=== PATIENT | female | born 1955 | race Caucasian/White ===

== ENCOUNTER 2017-12-03 13:27 | Observation (INO) | payer BC, SELFPAY ==
[2017-12-03] VITALS (11 sets, daily range): BP systolic 96–130; BP diastolic 54–81; PULSE 84–110; RESP 18–20; TEMP 36.4–36.7; O2SAT 95–100; BMI 33.6; BMI 34.4
--- NOTE | 2017-12-03 13:36 | XR_ITS ---
XR chest CHP 2V HISTORY: ITS.REASON: CHEST PAIN ORDERING PHYSICIAN: PATIENT AGE: 62 years COMPARISON: 07/23/2017 FINDINGS: There is mild cardiomegaly without failure.. The lungs are clear without infiltrates, suspicious nodules, or pleural effusions. Previously noted right basilar infiltrate has improved. Bilateral effusions have resolved. No acute bony abnormalities. IMPRESSION: Mild cardiomegaly otherwise negative.
[2017-12-03 13:46] LABS: Basophils % 0.2 % (0.1-2.0); Eosinophils # 0.1 K/mm3 (0.0-0.4); Eosinophils % 1.4 % (0.1-12.0); Hematocrit 35.9 % (37.0-47.0); Hemoglobin 12.2 g/dL (12.2-16.2); Lymphocytes # 1.5 K/mm3 (0.7-4.5); Lymphocytes % 20.9 K/mm3 (10-50); Mean Corpuscular Hemoglobin 31.5 pg (27.0-31.2); Mean Corpuscular Volume 92.7 fl (81-99); Mean Platelet Volume 6.9 fl (7.4-10.4); Monocytes # 0.6 K/mm3 (0.1-1.0); Monocytes % 8.3 % (1.7-9.3); Neutrophils # 4.8 K/mm3 (1.8-7.8); Neutrophils % 69.1 % (37.0-80.0); Platelet Count 292 K/mm3 (142-424); Red Blood Count 3.87 M/mm3 (4.20-5.40); Red Cell Distribution Width 16.2 % (11.5-17.5)
[2017-12-03 14:16] LABS: Alanine Aminotransferase 24 U/L (12-78); Albumin/Globulin Ratio 0.9 (1.1-1.8); Alkaline Phosphatase 168 U/L (46-116); Anion Gap 15.1 mEq/L (5-15); Aspartate Amino Transferase 17 U/L (15-37); Bilirubin,Total 0.6 mg/dL (0.2-1.0); Blood Urea Nitrogen 24 mg/dL (7-18); Calcium 10.2 mg/dL (8.5-10.1); Carbon Dioxide 27 mmol/L (21.0-32.0); Chloride 91 mmol/L (98-107); Creatine Kinase 22 U/L (26-192); Creatinine Clearance Estimated 61 mL/min (0-300); Creatinine,Serum 1.24 mg/dL (0.55-1.02); Estimated Glomerular Filt Rate 44 ml/min (>60); GFR (African American) 53 ML/MIN (>60); Globulin 4.3 gm/dl (1.3-3.2); Glucose 97 mg/dL (74-106); Potassium 4.1 mmoL/L (3.5-5.1); Sodium 129 mmol/L (136-145); Total Protein,Serum 8.3 gm/dL (6.4-8.2); Troponin I < 0.02 ng/ml (0.00-0.06)
[2017-12-03 14:22] LABS: CKMB Relative Index 2.3 U/L (0-4.0); Creatine Kinase MB < 0.5 mg/ml (0.0-3.6)
--- NOTE | 2017-12-03 15:27 | HMH.EDCP ---
ED Disposition Clinical Impression: Atypical chest pain Disposition: Admitted as Observation Condition on Discharge: Good Referrals: Rad Galvan MD [Primary Care Provider] - Time of Disposition: 17:01 - Critical Care Critical Care Time: No Attestation: On 12/03/17, the high probability of a clinically significant, sudden or life threatening deterioration of the following system(s) required my full and direct attention, intervention and personal management. The time I documented below is in addition to time spent performing reported procedures but includes the following listed in this critical care notation. Medical Decision Making Vital Signs: 12/03/17 13:27 12/03/17 14:38 12/03/17 14:47 Temperature 98.1 F Temperature Source Oral Pulse Rate [Right Brachial] 93 H 87 110 H Respiratory Rate 18 18 18 Blood Pressure [Right Arm] 100/57 118/75 118/75 Blood Pressure Mean [Right Arm] 71 89 89 Blood Pressure Source [Right Arm] Automatic Cuff Automatic Cuff Automatic Cuff Blood Pressure Position [Right Arm] Sitting Sitting Sitting 02 Sat by Pulse Oximetry 98 97 Oxygen Delivery Method Room Air Room Air 12/03/17 15:52 12/03/17 16:10 Temperature Temperature Source Pulse Rate [Right Brachial] 84 95 H Respiratory Rate 18 18 Blood Pressure [Right Arm] 114/58 96/54 Blood Pressure Mean [Right Arm] 76 68 Blood Pressure Source [Right Arm] Automatic Cuff Automatic Cuff Blood Pressure Position [Right Arm] Sitting Sitting 02 Sat by Pulse Oximetry 95 95 Oxygen Delivery Method Room Air Room Air - Lab Data Lab results reviewed: Yes: I reviewed the patient's lab results. Lab Results 12/03/17 13:40: WBC 7.0, RBC 3.87 L, Hgb 12.2, Hct 35.9 L, MCV 92.7, MCH 31.5 H, MCHC 34.0, RDW 16.2, Plt Count 292, MPV 6.9 L, Neut % (Auto) 69.1, Lymph % (Auto) 20.9, [place] % (Auto) 8.3, Eos % (Auto) 1.4, Baso % (Auto) 0.2, Neut # (Auto) 4.8, Lymph # (Auto) 1.5, [place] # (Auto) 0.6, Eos # (Auto) 0.1, Baso # (Auto) 0.0 12/03/17 13:40: Sodium 129 L, Potassium 4.1, Chloride 91 L, Carbon Dioxide 27, Anion Gap 15.1 H, BUN 24 H, Creatinine 1.24 H, Estimated Creat Clear 61, Estimated GFR 44 L, Est GFR ( Amer) 53 L, Glucose 97, Calcium 10.2 H, Total Bilirubin 0.6, AST 17, ALT 24, Alkaline Phosphatase 168 H, Total Creatine Kinase 22 L, CK-MB (CK-2) < 0.5, CK-MB (CK-2) Rel Index 2.3, Troponin I < 0.02, Total Protein 8.3 H, Albumin 4.0, Globulin 4.3 H, Albumin/Globulin Ratio 0.9 L 12/03/17 14:00: Influenza Type A Ag Negative, Influenza Type B Ag Negative 12/03/17 15:26: Troponin I < 0.02, Phenobarbital 16.9 Result diagrams: 12/03/17 13:40 12/03/17 13:40 Orders (Tests/Meds): ED MEDICATIONS Generic Name Dose Route Start Last Admin Trade Name Freq PRN Reason Stop Dose Admin Sodium Chloride 1,000 mls @ 100 mls/hr 12/03/17 17:00 Sod Chloride 0.9% 1000ml Bag IV 01/02/18 16:59 .Q10H GAIL Discontinued Medications Generic Name Dose Route Start Last Admin Trade Name Freq PRN Reason Stop Dose Admin Sodium Chloride 500 mls @ 100 mls/hr 12/03/17 16:15 Sod Chloride 0.9% 500ml Bag IV 01/02/18 16:14 .Q5H GAIL Morphine Sulfate 2 mg 12/03/17 14:57 12/03/17 15:15 Morphine 2mg/Ml Syringe IV 12/03/17 14:58 2 mg ONCE ONE Administration Nitroglycerin 0.4 mg 12/03/17 14:44 12/03/17 14:45 Nitrostat 0.4mg Sl Tablet SL 12/03/17 14:45 0.4 mg ONCE ONE Administration - Radiology Data #1 Image(s): Chest Image Reviewed: Yes I reviewed the patient's radiology results, Yes I have reviewed radiologist's interpretation Preliminary Findings: Normal/NAD, No Infiltrates Seen - ECG Data Tracing #1 Atrial fibrillation noted rate in the 90s-120s. Small Q waves noted anteriorly. Sister with history of atrial fibrillation in the past. No acute ST changes noted. - Physician Consults Physician Consulted: Dr. Galvan (Dr. Branch neonatal intensive care nurse for him) Time: 16:39 Comment/Response: Okay to admit to
[2017-12-03 16:19] LABS: Troponin I < 0.02 ng/ml (0.00-0.06)
--- NOTE | 2017-12-03 16:38 | PC.NURSE ---
Contacted Dr. Branch's office who is socially responsible investment adviser for , waiting socially responsible investment adviser back.
--- NOTE | 2017-12-03 16:57 | PC.NURSE ---
YEMI MARTINEZ spoke with who is nitric acid concentrator operator for
--- NOTE | 2017-12-03 18:42 | PC.NURSE ---
report called to sue friedman rn
--- NOTE | 2017-12-03 19:15 | PC.NURSE ---
REPORT RECEIVED FROM KAREN.BIA, PT FULL CODE
[2017-12-03 19:51] LABS: Troponin I < 0.02 ng/ml (0.00-0.06)
[2017-12-04] VITALS (8 sets, daily range): BP systolic 90–130; BP diastolic 45–85; PULSE 50–74; RESP 18–20; TEMP 36.2–36.9; O2SAT 96–100
--- NOTE | 2017-12-04 05:36 | PC.NURSE ---
PT SLEPT MOST OF SHIFT. CONTINUES ON IV FLUIDS. BREATH SOUNDS CLEAR AND EQUAL. NO C/O CHEST PAIN OR ANY OTHER DISCOMFORT REPORTED. PT HAS ORDER FOR AM LABS. PT STABLE. WILL CONTINUE TO MONITOR. REPORT TO BE GIVEN TO ONCOMING NURSE.
[2017-12-04 07:17] LABS: Basophils % 0.3 % (0.1-2.0); Eosinophils # 0.1 K/mm3 (0.0-0.4); Eosinophils % 1.4 % (0.1-12.0); Hematocrit 35.2 % (37.0-47.0); Hemoglobin 11.8 g/dL (12.2-16.2); Lymphocytes # 1.1 K/mm3 (0.7-4.5); Lymphocytes % 18.2 K/mm3 (10-50); Mean Corpuscular HGB Conc 33.4 g/dL (31.8-35.4); Mean Corpuscular Hemoglobin 31.6 pg (27.0-31.2); Mean Corpuscular Volume 94.5 fl (81-99); Mean Platelet Volume 6.9 fl (7.4-10.4); Monocytes # 0.4 K/mm3 (0.1-1.0); Monocytes % 6.8 % (1.7-9.3); Neutrophils # 4.4 K/mm3 (1.8-7.8); Neutrophils % 73.2 % (37.0-80.0); Platelet Count 238 K/mm3 (142-424); Red Blood Count 3.73 M/mm3 (4.20-5.40); Red Cell Distribution Width 16.2 % (11.5-17.5)
--- NOTE | 2017-12-04 07:21 | HMH.DCSUM ---
General - General Admission date: 12/03/17 Discharge date: 12/06/17 HPI HPI: 62-year-old female with atrial fibrillation diabetes and nonischemic cardiomyopathy presented to the hospital after a presyncopal event that lasted around 45 minutes while she was shopping at [employer]. Patient was admitted for monitoring of arrhythmias. Patient was in atrial fibrillation on presentation to the ER but this was rate controlled. Objective Vital signs: Temp Pulse Resp BP Pulse Ox 97.7 F 74 18 114/75 97 12/04/17 04:05 12/04/17 04:05 12/04/17 04:05 12/04/17 04:05 12/04/17 04:05 Hospital Course Hospital Course: Patient was admitted and ruled out for CO with serial EKG and enzymes. Cardiology service was consulted. Echocardiogram showed a decrease in patient's ejection fraction from 40 down to 30% since her last echocardiogram. Decision was made to implant AICD due to patient's risk of sudden cardiac . Patient underwent AICD implantation on December 05. Postoperatively the patient had significant nausea which delayed her discharge. On the morning of the she was eating without nausea. Pain in the chest and back were significant from her procedure and she will be given hydrocodone at discharge for her pain. Patient was discharged on the . She will follow up with cardiology service in 1 week. Patient will follow up with me after follow-up with cardiology service Results Labs on day of discharge: Labs from last 24 hours 12/03/17 19:28 Troponin I < 0.02 - Imaging and Cardiology EKG Status: final report Chest x-ray Status: final report DS: Diagnosis - Discharge Diagnosis (1) Atrial fibrillation Status: Acute (2) Atypical chest pain Status: Acute (3) Diabetes mellitus type II, controlled Status: Acute (4) Nonischemic cardiomyopathy Status: Acute Meds Home Medications Medication Instructions Recorded Confirmed Type Atorvastatin Calcium [Atorvastatin 10 mg PO DAILY 12/03/17 12/04/17 History 10mg Tab] Bisoprolol Fumarate 10 mg PO BID 12/03/17 12/04/17 History Furosemide [Furosemide 40MG tAB] 40 mg PO BID 12/03/17 12/03/17 History Gabapentin [Gabapentin 100mg Cap] 100 mg PO TID 12/03/17 12/04/17 History Isosorbide Mononitrate [Imdur 30mg 30 mg PO DAILY 12/03/17 12/04/17 History ER tablet] Lisinopril [Lisinopril 10mg Tab] 10 mg PO DAILY 12/03/17 12/03/17 History PHENobarbital [PHENobarbital 32.4 mg PO TID 12/03/17 12/04/17 History 32.4mg Tablet] Pantoprazole Sodium [Protonix 40mg 40 mg PO DAILY 12/03/17 12/03/17 History tablet] Rivaroxaban [Xarelto] 20 mg PO DAILY 12/03/17 12/04/17 History Ropinirole HCl 2 mg PO DAILY 12/03/17 12/04/17 History Sitagliptin Phos/Metformin HCl 1 each PO BID 12/03/17 12/03/17 History [Janumet 50-1,000 mg Tablet] Spironolactone [Spironolactone 50 mg PO DAILY 12/03/17 12/03/17 History 50mg Tab] Tramadol HCl [Ultram 50mg 50 mg PO BID PRN 12/03/17 12/03/17 History tablet] dilTIAZem HCl [Diltiazem 120mg 120 mg PO DAILY 12/03/17 12/04/17 History 24Hr ER Cap] hydroCHLOROthiazide [HCTZ 25mg 25 mg PO DAILY 12/03/17 12/03/17 History tab] Allergies Allergy/AdvReac Type Severity Reaction Status Date / Time metoclopramide [From REGLAN] Allergy Mild SHAKES Verified 12/03/17 13:44 Discharge Plan - Patient Discharge Instructions Activity: Ambulate as Tolerated Diet: advance to your usual diet - Follow up Plan Disposition: Home, Self-Assisted Medications: Home Medications Medication Instructions Recorded Confirmed Type Atorvastatin Calcium [Atorvastatin 10 mg PO DAILY 12/03/17 12/04/17 History 10mg Tab] Bisoprolol Fumarate 10 mg PO BID 12/03/17 12/04/17 History Furosemide [Furosemide 40MG tAB] 40 mg PO BID 12/03/17 12/03/17 History Gabapentin [Gabapentin 100mg Cap] 100 mg PO TID 12/03/17 12/04/17 History Isosorbide Mononitrate [Imdur 30mg
--- NOTE | 2017-12-04 07:23 | HMH.HP ---
*Admission Date: 12/03/17 *Chief complaint: Pre-syncope *History of present illness: 62-year-old female with history of atrial fibrillation, cardiomyopathy presented to the emergency department after a presyncopal event at [facility]. Patient was standing when she states everything started to go black . She felt lightheaded. She had some mild chest heaviness but denies palpitations. She also felt mildly dyspneic. After symptoms did not resolve over 45 minutes she was instructed to go to the emergency department. In the emergency department workup was rather unrevealing. She was found to be in atrial fibrillation which is a known diagnosis she carries. Troponins were negative ?2. Decision was made to admit the patient for observation. This morning she states she feels well as long as I keep my eyes open . [facility] History Medical History: Reports:: Atrial Fibrillation, Diabetes Mellitus Type 2, Hyperlipidemia, Hypertension Comment: Cardiomyopathy Other Surgeries: Yes: Appendectomy Amputation: No - *Social History Educational Level: Completed High School Alcohol Intake: former Occupational Status: retired Housing: house - Psychiatric History Expresses thoughts of harming self/others: None Suicide Plan Description: No Plan *Family Hx:: Diabetes, Hyperlipidemia, Hypertension Review of Systems - Constitutional Denies chills, Denies fever(s) - Eyes Reports blurry vision - *Cardiovascular Reports chest pain, Reports chest pain at rest, Reports shortness of breath - *Respiratory Denies chest congestion, Denies cough - *Gastrointestinal Denies abdominal pain Meds Home Medications Medication Instructions Recorded Confirmed Type Atorvastatin Calcium [Atorvastatin 10 mg PO DAILY 12/03/17 12/03/17 History 10mg Tab] Bisoprolol Fumarate 10 mg PO BIDL 12/03/17 12/03/17 History Furosemide [Furosemide 40MG tAB] 40 mg PO BID 12/03/17 12/03/17 History Gabapentin [Gabapentin 100mg Cap] 100 mg PO TID 12/03/17 12/03/17 History Isosorbide Mononitrate [Imdur 30mg 30 mg PO DAILY 12/03/17 12/03/17 History ER tablet] Lisinopril [Lisinopril 10mg Tab] 10 mg PO DAILY 12/03/17 12/03/17 History PHENobarbital [PHENobarbital 32.4 mg PO TID 12/03/17 12/03/17 History 32.4mg Tablet] Pantoprazole Sodium [Protonix 40mg 40 mg PO DAILY 12/03/17 12/03/17 History tablet] Rivaroxaban [Xarelto] 20 mg PO DAILY 12/03/17 12/03/17 History Ropinirole HCl 2 mg PO DAILY 12/03/17 12/03/17 History Sitagliptin Phos/Metformin HCl 1 each PO BID 12/03/17 12/03/17 History [Janumet 50-1,000 mg Tablet] Spironolactone [Spironolactone 50 mg PO DAILY 12/03/17 12/03/17 History 50mg Tab] Tramadol HCl [Ultram 50mg 50 mg PO BID PRN 12/03/17 12/03/17 History tablet] dilTIAZem HCl [Diltiazem 120mg 120 mg PO DAILY 12/03/17 12/03/17 History 24Hr ER Cap] hydroCHLOROthiazide [HCTZ 25mg 25 mg PO DAILY 12/03/17 12/03/17 History tab] Allergies Allergy/AdvReac Type Severity Reaction Status Date / Time metoclopramide [From REGLAN] Allergy Mild SHAKES Verified 12/03/17 13:44 Exam Vital signs and Labs for Last 24 Hours: Temp Pulse Resp BP Pulse Ox 97.7 F 74 18 114/75 97 12/04/17 04:05 12/04/17 04:05 12/04/17 04:05 12/04/17 04:05 12/04/17 04:05 Laboratory Results - last 24 hr 12/03/17 19:28: Troponin I < 0.02 Laboratory Results - last 24 hr 12/03/17 13:40: WBC 7.0, RBC 3.87 L, Hgb 12.2, Hct 35.9 L, MCV 92.7, MCH 31.5 H, MCHC 34.0, RDW 16.2, Plt Count 292, MPV 6.9 L, Neut % (Auto) 69.1, Lymph % (Auto) 20.9, [place] % (Auto) 8.3, Eos % (Auto) 1.4, Baso % (Auto) 0.2, Neut # (Auto) 4.8, Lymph # (Auto) 1.5, [place] # (Auto) 0.6, Eos # (Auto) 0.1, Baso # (Auto) 0.0 12/03/17 13:40: Sodium 129 L, Potassium 4.1, Chloride 91 L, Carbon Dioxide 27, Anion Gap 15.1 H, BUN 24 H, Creatinine 1.24 H, Estimated Creat Clear 61, Estimated GFR 44 L, Est GFR ( Amer) 53 L, Glucose 97, Calcium 10.2 H, Total Bilirubin 0.6, AST
--- NOTE | 2017-12-04 07:27 | P.HP_ITS ---
*Admission Date: 12/03/17 *Chief complaint: Pre-syncope *History of present illness: 62-year-old female with history of atrial fibrillation, cardiomyopathy presented to the emergency department after a presyncopal event at [facility]. Patient was standing when she states everything started to go black . She felt lightheaded. She had some mild chest heaviness but denies palpitations. She also felt mildly dyspneic. After symptoms did not resolve over 45 minutes she was instructed to go to the emergency department. In the emergency department workup was rather unrevealing. She was found to be in atrial fibrillation which is a known diagnosis she carries. Troponins were negative ? 2. Decision was made to admit the patient for observation. This morning she states she feels well as long as I keep my eyes open . [facility] History Medical History: Reports:: Atrial Fibrillation, Diabetes Mellitus Type 2, Hyperlipidemia, Hypertension Comment: Cardiomyopathy Other Surgeries: Yes: Appendectomy Amputation: No - *Social History Educational Level: Completed High School Alcohol Intake: former Occupational Status: retired Housing: house - Psychiatric History Expresses thoughts of harming self/others: None Suicide Plan Description: No Plan *Family Hx:: Diabetes, Hyperlipidemia, Hypertension Review of Systems - Constitutional Denies chills, Denies fever(s) - Eyes Reports blurry vision - *Cardiovascular Reports chest pain, Reports chest pain at rest, Reports shortness of breath - *Respiratory Denies chest congestion, Denies cough - *Gastrointestinal Denies abdominal pain Meds Home Medications Medication Instructions Recorded Confirmed Type Atorvastatin Calcium [Atorvastatin 10 mg PO DAILY 12/03/17 12/03/17 History 10mg Tab] Bisoprolol Fumarate 10 mg PO BIDL 12/03/17 12/03/17 History Furosemide [Furosemide 40MG tAB] 40 mg PO BID 12/03/17 12/03/17 History Gabapentin [Gabapentin 100mg Cap] 100 mg PO TID 12/03/17 12/03/17 History Isosorbide Mononitrate [Imdur 30mg 30 mg PO DAILY 12/03/17 12/03/17 History ER tablet] Lisinopril [Lisinopril 10mg Tab] 10 mg PO DAILY 12/03/17 12/03/17 History PHENobarbital [PHENobarbital 32.4 mg PO TID 12/03/17 12/03/17 History 32.4mg Tablet] Pantoprazole Sodium [Protonix 40mg 40 mg PO DAILY 12/03/17 12/03/17 History tablet] Rivaroxaban [Xarelto] 20 mg PO DAILY 12/03/17 12/03/17 History Ropinirole HCl 2 mg PO DAILY 12/03/17 12/03/17 History Sitagliptin Phos/Metformin HCl 1 each PO BID 12/03/17 12/03/17 History [Janumet 50-1,000 mg Tablet] Spironolactone [Spironolactone 50 mg PO DAILY 12/03/17 12/03/17 History 50mg Tab] Tramadol HCl [Ultram 50mg 50 mg PO BID PRN 12/03/17 12/03/17 History tablet] dilTIAZem HCl [Diltiazem 120mg 120 mg PO DAILY 12/03/17 12/03/17 History 24Hr ER Cap] hydroCHLOROthiazide [HCTZ 25mg 25 mg PO DAILY 12/03/17 12/03/17 History tab] Allergies Allergy/AdvReac Type Severity Reaction Status Date / Time metoclopramide [From REGLAN] Allergy Mild SHAKES Verified 12/03/17 13:44 Exam Vital signs and Labs for Last 24 Hours: Temp Pulse Resp BP Pulse Ox 97.7 F 74 18 114/75 97 12/04/17 04:05 12/04/17 04:05 12/04/17 04:05 12/04/17 04:05 12/04/17 04:05 Laboratory Results - last 24 hr 12/03/17 19:28: Troponin I <
[2017-12-04 07:50] LABS: Anion Gap 9.8 mEq/L (5-15); Blood Urea Nitrogen 21 mg/dL (7-18); Carbon Dioxide 30 mmol/L (21.0-32.0); Chloride 96 mmol/L (98-107); Creatinine Clearance Estimated 80 mL/min (0-300); Creatinine,Serum 0.98 mg/dL (0.55-1.02); Estimated Glomerular Filt Rate 58 ml/min (>60); GFR (African American) 70 ML/MIN (>60); Glucose 94 mg/dL (74-106); Magnesium 1.5 mg/dL (1.4-2.2); Potassium 3.8 mmoL/L (3.5-5.1); Sodium 132 mmol/L (136-145); Thyroid Stimulating Hormone 1.26 uIU/ml (0.358-3.740)
--- NOTE | 2017-12-04 08:00 | P.CONPHA_ITS ---
[facility] VTE Monitoring - Patient Demographics Admission date: 12/03/17 Report Date: 12/04/17 Time: 07:58 Allergies/Adverse Reactions: metoclopramide [From REGLAN] Allergy (Mild, Verified 12/03/17 13:44) SHAKES Height: 1.55 m Weight: 82.554 kg Patient Problems: Current Active Problems Atypical chest pain (Acute) Atrial fibrillation (Acute) Diabetes mellitus type II, controlled (Acute) Nonischemic cardiomyopathy (Acute) - VTE Risk Labs: VTE Related Lab Results Hgb 11.8 g/dL (12.2-16.2) L 12/04/17 06:23 Hct 35.2 % (37.0-47.0) L 12/04/17 06:23 Plt Count 238 K/mm3 (142-424) 12/04/17 06:23 BUN 21 mg/dL (7-18) H 12/04/17 06:23 Creatinine 0.98 mg/dL (0.55-1.02) D 12/04/17 06:23 Estimated Creat Clear 80 mL/min (0-300) 12/04/17 06:23 Was VTE Risk Assessment Performed: Yes VTE Score: 1 VTE Risk Level: Very Low Risk - Prophylaxis VTE Prophylaxis Ordered?: Yes Types of VTE Prophylaxis: TEDS Knee High Location of Applied Device: Bilateral Lower Extremeties - VTE Diagnosis Confirmed Treatment or plan recommended: Continue Current Treatment Comment: XARELTO ALSO ORDERED
--- NOTE | 2017-12-04 08:19 | HMH.CARDPN2 ---
Subjective PN (PG) Date: 12/04/17 Time: 08:19 Principal diagnosis: Chest pain, SOA, Cardiomyopathy Interval history: 62-year-old white female with known mild coronary artery disease by cardiac catheterization November 2016, chronic atrial fibrillation for which she takes Xarelto therapy and nonischemic cardiomyopathy (ejection fraction improved from 20% to 40% on medical therapy) was admitted for observation. Patient was at [facility] yesterday when she developed sudden loss of vision without TIA or CVA symptoms otherwise. She noted the symptoms lasted only a few seconds and then more followed by substernal chest pain pressure and shortness of breath that slowly resolved over the next couple of hours. Patient set at [facility] for about 30 minutes and when symptoms did not improve was transported to the emergency department for evaluation. She was given a sublingual nitroglycerin in the ER with some improvement in the chest discomfort gradually over the next hour, she also received morphine which improved the shortness of breath rapidly. Patient has had no further symptoms of loss of vision, chest pain or shortness of breath overnight. 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 Patient states the symptoms from her lichen planus resolved thereafter. She has lost 3 close family members in the last couple of months. She is still emotionally upset about this. Troponins have returned to normal overnight. EKG showed atrial fibrillation without acute change. Cardiology consulted for evaluation and recommendations. PN Exam ([facility]) Vital signs: Temp Pulse Resp BP Pulse Ox 97.7 F 74 18 114/75 97 12/04/17 04:05 12/04/17 04:05 12/04/17 04:05 12/04/17 04:05 12/04/17 04:05
--- NOTE | 2017-12-04 08:20 | CA_ITS ---
PROCEDURE: 2-D M-mode and color Doppler study INDICATIONS FOR THE TEST: Chest pain X COPD Heart Murmur Tobacco Smoking Palpitations Fatigue SyncopeX Edema HypertensionXDiabetes MellitusX Rheumatic Fever SOBXDOE Obesity HyperlipidemiaX Family History HD Additional History AF,CM PATIENT INFORMATION HEIGHT: 63 WEIGHT:182 GENDER: Female B/P:102/67 2-D/M-MODE INTERPRETATION: 2-D MEASUREMENTS OBSERVED VALUES IN CMS Right Ventricular Dimension (RVDd) 3.6 Interventricular Septum (Thickness)(IVsd) .9 Left Ventricular Internal Dimensions(LVIDd) 4.9 Left Ventricular Posterior Wall (Thickness)(LVPWd) 1.1 Aortic Root 2.2 Aortic Cusp Separation Left Atrial Dimensions (LAD) 4.6 2D 1. Technically difficult study because of the patient's factor and poor acoustic windows. 2. Left atrium is moderately enlarged, left ventricle is normal size, there is reduced left ventricular systolic function, visually estimated ejection fraction 30%, left ventricle is globally hypokinetic. 3. The right atrium is mildly enlarged, right ventricle is moderately dilated with mildly reduced contractility. 4. The aortic valve is minimally thickened and fibrosed. 5. The mitral and tricuspid valve leaflets are minimally thickened. 6. No significant pericardial effusion noted. DOPPLER INTERROGATION: Doppler interrogation of the aortic, mitral and tricuspid valve reveals presence of mild mitral and tricuspid regurgitation, calculated right ventricular systolic pressure 42 mmHg consistent with moderate pulmonary hypertension. CONCLUSION: 1. Biatrial enlargement, normal left ventricular size, there is reduced left ventricular systolic function, visually estimated ejection fraction 30%, left ventricle is globally hypokinetic. 2. Moderately enlarged right ventricle is mildly reduced contractility. 3. Mild mitral and tricuspid regurgitation. Calculated right ventricular systolic pressure 42 mmHg consistent with moderate pulmonary hypertension. 4. No significant pericardial effusion noted.
--- NOTE | 2017-12-04 08:32 | HMH.CARDCON2 ---
History of Present Illness Consult date: 12/04/17 Requesting physician: Rad Galvan Consult reason: chest pain, atrial fibrillation, shortness of breath Chief complaint: Transient loss of vision, chest pain, SOA History of present illness: 62-year-old white female with known mild coronary artery disease by cardiac catheterization November 2016, chronic atrial fibrillation for which she takes Xarelto therapy and nonischemic cardiomyopathy (ejection fraction improved from 20% to 40% on medical therapy) was admitted for observation. Patient was at [facility] yesterday when she developed sudden loss of vision without TIA or CVA symptoms otherwise. She noted the symptoms lasted only a few seconds and then more followed by substernal chest pain pressure and shortness of breath that slowly resolved over the next couple of hours. Patient set at [facility] for about 30 minutes and when symptoms did not improve was transported to the emergency department for evaluation. She was given a sublingual nitroglycerin in the ER with some improvement in the chest discomfort gradually over the next hour, she also received morphine which improved the shortness of breath rapidly. Patient has had no further symptoms of loss of vision, chest pain or shortness of breath overnight. 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 Patient states the symptoms from her lichen planus resolved thereafter. She has lost 3 close family members in the last couple of months. She is still emotionally upset about this. Troponins have returned to normal overnight. EKG showed atrial fibrillation without acute change. Cardiology consulted for evaluation and recommendations. Review of Systems - Constitutional Denies body ache(s), Denies chills, Denies fever(s), Denies malaise - Eyes Reports loss of vision - *Cardiovascular Reports chest pain - *Respiratory Reports shortness of breath [facility] History Medical History: Reports:: Atrial Fibrillation, Diabetes Mellitus Type 2, Hyperlipidemia, Hypertension Other Surgeries: Yes: Appendectomy Amputation: No - *Social History Educational Level: Completed High School Alcohol Intake: former Occupational Status: retired Housing: house - Psychiatric History Expresses thoughts of harming self/others: None Suicide Plan Description: No Plan *Family Hx:: Diabetes, Hyperlipidemia, Hypertension Meds Home Medications Medication Instructions Recorded Confirmed Type Atorvastatin Calcium [Atorvastatin 10 mg PO DAILY 12/03/17 12/03/17 History 10mg Tab] Bisoprolol Fumarate 10 mg PO BID 12/03/17 12/04/17 History Furosemide [Furosemide 40MG tAB] 40 mg PO BID 12/03/17 12/03/17 History Gabapentin [Gabapentin 100mg Cap] 100 mg PO TID 12/03/17 12/03/17 History Isosorbide Mononitrate [Imdur 30mg 30 mg PO DAILY 12/03/17 12/03/17 History ER tablet] Lisinopril [Lisinopril 10mg Tab] 10 mg PO DAILY 12/03/17 12/03/17 History PHENobarbital [PHENobarbital 32.4 mg PO TID 12/03/17 12/03/17 History 32.4mg Tablet] Pantoprazole Sodium [Protonix 40mg 40 mg PO DAILY 12/03/17 12/03/17 History tablet] Rivaroxaban [Xarelto] 20 mg PO DAILY 12/03/17 12/03/17 History Ropinirole HCl 2 mg PO DAILY 12/03/17 12/03/17 History Sitagliptin Phos/Metformin HCl 1 each PO BID 12/03/17 12/03/17 History [Janumet 50-1,000 mg Tablet] Spironolactone [Spironolactone 50 mg PO DAILY 12/03/17 12/03/17 History 50mg Tab] Tramadol HCl [Ultram 50mg 50 mg PO BID PRN 12/03/17 12/03/17 History tablet] dilTIAZem HCl [Diltiazem 120mg 120 mg PO DAILY 12/03/17 12/03/17 History 24Hr ER Cap] hydroCHLOROthiazide [HCTZ 25mg 25 mg PO DAILY 12/03/17 12/03/17 History tab] Allergies Allergy/AdvReac Type Severity Reaction Status Date / Time [facility] Allergy Mild SHAKES Verified 12/03/17 13
--- NOTE | 2017-12-04 08:35 | P.CONS_ITS ---
History of Present Illness Consult date: 12/04/17 Requesting physician: Rad Galvan Consult reason: chest pain, atrial fibrillation, shortness of breath Chief complaint: Transient loss of vision, chest pain, SOA History of present illness: 62-year-old white female with known mild coronary artery disease by cardiac catheterization November 2016, chronic atrial fibrillation for which she takes Xarelto therapy and nonischemic cardiomyopathy (ejection fraction improved from 20% to 40% on medical therapy) was admitted for observation. Patient was at [facility] yesterday when she developed sudden loss of vision without TIA or CVA symptoms otherwise. She noted the symptoms lasted only a few seconds and then more followed by substernal chest pain pressure and shortness of breath that slowly resolved over the next couple of hours. Patient set at [facility] for about 30 minutes and when symptoms did not improve was transported to the emergency department for evaluation. She was given a sublingual nitroglycerin in the ER with some improvement in the chest discomfort gradually over the next hour, she also received morphine which improved the shortness of breath rapidly. Patient has had no further symptoms of loss of vision, chest pain or shortness of breath overnight. 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 Patient states the symptoms from her lichen planus resolved thereafter. She has lost 3 close family members in the last couple of months. She is still emotionally upset about this. Troponins have returned to normal overnight. EKG showed atrial fibrillation without acute change. Cardiology consulted for evaluation and recommendations. Review of Systems - Constitutional Denies body ache(s), Denies chills, Denies fever(s), Denies malaise - Eyes Reports loss of vision - *Cardiovascular Reports chest pain - *Respiratory Reports shortness of breath [facility] History Medical History: Reports:: Atrial Fibrillation, Diabetes Mellitus Type 2, Hyperlipidemia, Hypertension Other Surgeries: Yes: Appendectomy Amputation: No - *Social History Educational Level: Completed High School Alcohol Intake: former Occupational Status: retired Housing: house - Psychiatric History Expresses thoughts of harming self/others: None Suicide Plan Description: No Plan *Family Hx:: Diabetes, Hyperlipidemia, Hypertension Meds Home Medications Medication Instructions Recorded Confirmed Type Atorvastatin Calcium [Atorvastatin 10 mg PO DAILY 12/03/17 12/03/17 History 10mg Tab] Bisoprolol Fumarate 10 mg PO BID 12/03/17 12/04/17 History Furosemide [Furosemide 40MG tAB] 40 mg PO BID 12/03/17 12/03/17 History Gabapentin [Gabapentin 100mg Cap] 100 mg PO TID 12/03/17 12/03/17 History Isosorbide Mononitrate [Imdur 30mg 30 mg PO DAILY 12/03/17 12/03/17 History ER tablet] Lisinopril [Lisinopril 10mg Tab] 10 mg PO DAILY 12/03/17 12/03/17 History PHENobarbital [PHENobarbital 32.4 mg PO TID 12/03/17 12/03/17 History 32.4mg Tablet] Pantoprazole Sodium [Protonix 40mg 40 mg PO DAILY 12/03/17 12/03/17 History tablet] Rivaroxaban [Xarelto] 20 mg PO DAILY 12/03/17 12/03/17 History Ropinirole HCl 2 mg PO DAILY 12/03/17 12/03/17 History Sitagliptin Phos/Metformin HCl 1 each PO BID 12/03/17 12/03/17 History [Janumet 50-1,000 mg Tablet] Spironolactone [Spironolactone 50 mg PO DAILY 12/03/1712/03
--- NOTE | 2017-12-04 18:29 | PC.NURSE ---
PATIENT HAS BEEN SITTING IN THE CHAIR MOST OF THE SHIFT. SHE DENIES ANY PAIN T/O SHIFT. LUNGS ARE CTA. ANXIOUS FOR DEFIB PLACEMENT IN THE AM. CONSENT IS SIGNED ON THE CHART. CALL LIGHT WITHIN REACH WILL CONTINUE TO MONITOR.
--- NOTE | 2017-12-04 19:21 | PC.NURSE ---
REPORT RECEIVED FROM JOSE; PT FULL CODE
[2017-12-05] VITALS (21 sets, daily range): BP systolic 84–119; BP diastolic 35–77; PULSE 56–83; RESP 12–20; TEMP 36.1–36.9; O2SAT 95–100
--- NOTE | 2017-12-05 00:31 | PC.NURSE ---
Addendum entered by Mavis Bermudez RN 12/05/17 22:00: Original Note: PT ON TELEMETRY, CURRENTLY A-FIB; PT SCHEDULED FOR DEFIBULATOR BE PLACED TOMORROW
--- NOTE | 2017-12-05 00:33 | PC.NURSE ---
PT REFUSED LASIX STATED SHE DOESN'T WANT TO BE UP TO BATHROOM ALL NIGHT AND SAYS SHE DOESN'T WANT IN AM EITHER, STATES SHE WILL RESUME WHEN SHE GETS HOME
--- NOTE | 2017-12-05 00:40 | PC.NURSE ---
V/S OBTAINED BY QASIM
--- NOTE | 2017-12-05 06:25 | PC.NURSE ---
PT SLEPT INTERVALS THIS SHIFT. IV SALINE LOCKED, PATENT. PT TO RECEIVED PACEMAKER TODAY. HAS BEEN A-FIB WITH PVC'S ON MONITOR TONIGHT. NO C/O CHEST PAIN, SOA OR ANY OTHER DISCOMFORT. PT STABLE. WILL CONTINUE TO MONITOR. REPORT TO BE GIVEN TO ONCOMING NURSE.
--- NOTE | 2017-12-05 07:18 | P.PN_ITS ---
Internal Medicine - PN: Subj *Date: 12/05/17 *Time: 07:17 Interval history: Patient is scheduled for AICD implantation today. She denies chest pain, presyncopal symptoms, palpitations overnight. Exam Vital signs and Labs for Last 24 Hours: Temp Pulse Resp BP Pulse Ox 98.2 F 63 18 91/48 99 12/05/17 04:20 12/05/17 04:20 12/05/17 04:20 12/05/17 04:20 12/05/17 04:20 Laboratory Results - last 24 hr 12/04/17 06:23: WBC 6.0, RBC 3.73 L, Hgb 11.8 L, Hct 35.2 L, MCV 94.5, MCH 31.6 H, MCHC 33.4, RDW 16.2, Plt Count 238, MPV 6.9 L, Neut % (Auto) 73.2, Lymph % ( Auto) 18.2, Hernando % (Auto) 6.8, Eos % (Auto) 1.4, Baso % (Auto) 0.3, Neut # (Auto ) 4.4, Lymph # (Auto) 1.1, Hernando # (Auto) 0.4, Eos # (Auto) 0.1, Baso # (Auto) 0.0 12/04/17 06:23: Sodium 132 L, Potassium 3.8, Chloride 96 L, Carbon Dioxide 30, Anion Gap 9.8, BUN 21 H, Creatinine 0.98 D, Estimated Creat Clear 80, Estimated GFR 58 L, Est GFR ( Amer) 70 D, Glucose 94, Magnesium 1.5, TSH 1.26 I & O for Last 24 hours: Intake & Output 12/02/17 12/03/17 12/04/17 12/05/17 11:59 11:59 11:59 11:59 Intake Total 2050 840 / 840 Balance 2050 840 / 840 Weight 182 lb 181 lb 7.047 oz Assessment and Plan (1) Atrial fibrillation Current visit: Yes Status: Acute Category: Medical Code(s): I48.91 - Unspecified atrial fibrillation (2) Diabetes mellitus type II, controlled Current visit: Yes Status: Acute Category: Medical Code(s): E11.9 - Type 2 diabetes mellitus without complications (3) Nonischemic cardiomyopathy Current visit: Yes Status: Acute Category: Medical Code(s): I42.8 - Other cardiomyopathies - Assessment and plan all Dx Assessment and Plan for all problems:: Proceed with AICD implantation, possible discharge later this afternoon after procedure
--- NOTE | 2017-12-05 11:07 | PC.NURSE ---
PATIENT TRANSPORTED TO [facility] VIA STRETCHER AT THIS TIME
--- NOTE | 2017-12-05 11:40 | P.PN_ITS ---
[facility] Anesthesia Checklist - Patient Identification Patient Identification: Arm Band, Verbal (Name & ) - Structural Data Admitted From: Home Planned Operative Procedure/s: aicd placement Consent for Planned Operative Procedure(s) Verified: Yes Verified Documents: Surgical Consent - NPO Status Verified Time NPO: 00:00 - Chart Verification Results Verified: CBC, BMP - Additional verifications Patient : No Anesthesia Reactions: No - Cardiovascular Assessment Pulse Strength: Strong Pulse Rhythm: Irregular - Airway Assessment C-Spine Mobility Assessed: Yes TMJ Mobility Assessed: Yes Dentition: Good Dentition - Neurological Assessment Level of Consciousness: Awake, Alert, Appropriate Hx Seizures: Yes (in her 20's) Numbness or tingling in extremities: No - Genitourinary Assessment Urinary Incontinence: None - Anesthesia Plan Anesthesia Risk discussed: Yes Anesthesia Plan: Verified ASA Class: III Anesthesia Type: MAC [facility] Anesthesia HX I have reviewed the patient's past medical history: Yes Medical History: Reports:: Atrial Fibrillation, Diabetes Mellitus Type 2, Hyperlipidemia, Hypertension, Seizures Other Surgeries: Yes: Appendectomy Amputation: No *Family Hx:: Diabetes, Hyperlipidemia, Hypertension
--- NOTE | 2017-12-05 13:09 | HMH.ANESI ---
[facility] Anesthesia Record Part I Intake, IV Amount: 800 Estimated blood loss (mL): 0 Urine output (mL): 0 Blood Pressure: 112/50 SaO2: 100 Pulse Rate: 81 Respiratory Rate: 12 Temperature: 97 F Patient is:: Awake, Stable Stable to PACU at:: 13:05
--- NOTE | 2017-12-05 13:13 | XR_ITS ---
XR chest portable HISTORY: Follow-up pacemaker insertion ITS.REASON: post op pacemaker ORDERING PHYSICIAN: Rad Galvan MD PATIENT AGE: 62 years COMPARISON: 12/03/2017 FINDINGS: Status post AICD placement from left subclavian approach with good position of the pacemaker. No evidence of pneumothorax. Otherwise unremarkable cardiopulmonary structures. IMPRESSION:. Status post AICD placement with no radiographic evidence of complication
[2017-12-06] VITALS: PULSE 60
[2017-12-06 00:33] VITALS: BP 87/44; PULSE 66; RESP 17; TEMP 36.4; O2SAT 97
--- NOTE | 2017-12-06 03:44 | PC.NURSE ---
no changes from previous assessment, pt states she feels much better since AICD placement, dressing is c/d/i at sight of insertion, pt stated pain in the left side and back which was relieved by PRN pain medication per MAR, pt has rested well this shift, lungs are clear throughout, bowel sounds are active, pt denies nausea/vomiting, no acute distress noted at this time, call light in reach, will continue to monitor.
[2017-12-06 04:00] VITALS: PULSE 60
[2017-12-06 04:20] VITALS: BP 86/52; PULSE 72; RESP 18; TEMP 36.4; O2SAT 97
[2017-12-06 07:39] VITALS: BP 117/63; PULSE 66; RESP 20; TEMP 36.8; O2SAT 100
--- NOTE | 2018-01-30 07:36 | HMH.AICD ---
[facility] AICD - AICD Date: 12/05/17 Procedures:: 1. Pocket formation for AICD. 2. Placement of a ventricular sensing pacing and shocking coil in the right ventricular apex. 3. Permanent AICD placement. Indications for test:: Systolic congestive heart failure ejection fraction less than 35% Class III [place] [employer] congestive heart failure Informed consent:: Obtained prior to procedure. EBL:: Less than 10 ml. Technique:: 1% lidocaine with epinephrine used to anesthetize the left anterior aspect of chest. Scalpel was used to make the initial cutaneous incision wall electrocautery was used to dissect down into the fascia. The fascia was lifted off the pectoralis muscle and digitally manipulated creating a pocket for the defibrillator. The patient was then placed in Trendelenburg position and the subclavian vein was accessed via the Seldinger technique. A 7 Uzbek sheath was placed under fluoroscopic guidance into the subclavian vein. Under fluoroscopic guidance the right ventricular apical lead was placed in the right ventricular apex and secured in place. Interrogation demonstrated excellent thresholds therefore the lead was secured to the fascia using 3-0 silk. Following the securing of the lead the lead was then attached to the defibrillator canister generator was placed in the pocket also secured to the fascia using 3-0 silk. Antibiotics were used to flush the pocket 0 Monocryl was used to close the subcutaneous layer and nicki used to close the cutaneous layer. Patient tolerated the procedure well was transferred to the postop holding area in stable condition Impression:: 1. Successful pocket formation for permanent defibrillator placement. 2. Successful placement of a ventricular sensing, pacing, and shocking lead in the right ventricular apex. 3. Successful permanent defibrillator placement. Interrogation:: Generator model number [id number] serial number [id number] Right Ventricular lead model number [id number] serial number [id number] RVA: R wave >10 Threshold 0.3 V Impedance 590/36 ohms pulse width .5 ms Mode: VVI with base tracking of 40 Therapies: VT-1: 180 Monitor VT-2: 180 ATP X3 @36 , 40 J VF: 220 ATP W/C @36, 40 J Plan:: 1.Post-op wound care.
--- NOTE | 2018-01-30 07:42 | P.PCN_ITS ---
[facility] AICD - AICD Date: 12/05/17 Procedures:: 1. Pocket formation for AICD. 2. Placement of a ventricular sensing pacing and shocking coil in the right ventricular apex. 3. Permanent AICD placement. Indications for test:: Systolic congestive heart failure ejection fraction less than 35% Class III [place] [employer] congestive heart failure Informed consent:: Obtained prior to procedure. EBL:: Less than 10 ml. Technique:: 1% lidocaine with epinephrine used to anesthetize the left anterior aspect of chest. Scalpel was used to make the initial cutaneous incision wall electrocautery was used to dissect down into the fascia. The fascia was lifted off the pectoralis muscle and digitally manipulated creating a pocket for the defibrillator. The patient was then placed in Trendelenburg position and the subclavian vein was accessed via the Seldinger technique. A 7 German sheath was placed under fluoroscopic guidance into the subclavian vein. Under fluoroscopic guidance the right ventricular apical lead was placed in the right ventricular apex and secured in place. Interrogation demonstrated excellent thresholds therefore the lead was secured to the fascia using 3-0 silk. Following the securing of the lead the lead was then attached to the defibrillator canister generator was placed in the pocket also secured to the fascia using 3-0 silk. Antibiotics were used to flush the pocket 0 Monocryl was used to close the subcutaneous layer and nicki used to close the cutaneous layer. Patient tolerated the procedure well was transferred to the postop holding area in stable condition Impression:: 1. Successful pocket formation for permanent defibrillator placement. 2. Successful placement of a ventricular sensing, pacing, and shocking lead in the right ventricular apex. 3. Successful permanent defibrillator placement. Interrogation:: Generator model number [id number] serial number [id number] Right Ventricular lead model number [id number] serial number [id number] RVA: R wave >10 Threshold 0.3 V Impedance 590/36 ohms pulse width .5 ms Mode: VVI with base tracking of 40 Therapies: VT-1: 180 Monitor VT-2: 180 ATP X3 @36 , 40 J VF: 220 ATP W/C @36, 40 J Plan:: 1.Post-op wound care.
== END 2017-12-06 11:58 | disposition home or self-care (01) ==
LOC: ER 17:02 → 2ND 18:09
PROVIDERS: Internal Medicine; Admitting Provider Internal Medicine Adolescent Medicine; Emergency Provider Emergency Medicine; PCP Family Medicine; Visit Provider Family Medicine
PROC: 0JH608Z Insertion of Defibrillator Generator into Chest Subcutaneous Tissue and Fascia, Open Approach (ICD-10-PCS; CPT 33249; principal; 2017-12-05 10:45)
DX: R07.89 Other chest pain (principal); Z45.02 Encounter for adjustment and management of automatic implantable cardiac defibrillator; I50.22 Chronic systolic (congestive) heart failure
CPT/HCPCS: 33249; 36415; 71045; 71046; 80048; 80053; 80184; 82550; 82553; 83735; 84443; 84484; 85025; 87275; 87276; 93005; 93041; 93306; 96361; 96365; 96374; 96375; 99284; C1721; C1895; G0378; J2405

== ENCOUNTER 2018-01-23 23:00 | Emergency (ER) | payer BC, SELFPAY ==
[2018-01-23 23:01] VITALS: BP 129/74; PULSE 75; RESP 14; TEMP 36.6; O2SAT 98; BMI 34.4
--- NOTE | 2018-01-23 23:14 | XR_ITS ---
XR chest 2V HISTORY: ITS.REASON: chest pain ORDERING PHYSICIAN: Philip Jeter MD PATIENT AGE: 62 years COMPARISON: 12/05/2017 FINDINGS: There is mild cardiomegaly without failure. There is AICD device present from the left subclavian approach. No lobar consolidation or collapse. Minimal atelectatic changes left lower lobe. No acute bony anomalies. IMPRESSION: AICD device present with mild cardiomegaly otherwise negative
[2018-01-23 23:36] LABS: Basophils % 0.3 % (0.1-2.0); Eosinophils # 0.2 K/mm3 (0.0-0.4); Eosinophils % 1.9 % (0.1-12.0); Hematocrit 42.5 % (37.0-47.0); Hemoglobin 13.9 g/dL (12.2-16.2); Lymphocytes # 2.1 K/mm3 (0.7-4.5); Lymphocytes % 25.9 K/mm3 (10-50); Mean Corpuscular HGB Conc 32.6 g/dL (31.8-35.4); Mean Corpuscular Hemoglobin 32.6 pg (27.0-31.2); Mean Corpuscular Volume 99.9 fl (81-99); Mean Platelet Volume 7.7 fl (7.4-10.4); Monocytes # 0.6 K/mm3 (0.1-1.0); Monocytes % 7.4 % (1.7-9.3); Neutrophils # 5.3 K/mm3 (1.8-7.8); Neutrophils % 64.5 % (37.0-80.0); Platelet Count 274 K/mm3 (142-424); Red Blood Count 4.25 M/mm3 (4.20-5.40); Red Cell Distribution Width 13.4 % (11.5-17.5); White Blood Count 8.2 K/mm3 (4.8-10.8)
[2018-01-23 23:40] VITALS: BP 118/68; PULSE 70; RESP 14; O2SAT 98
[2018-01-23 23:45] LABS: Prothrombin Time 14.1 seconds (9.4-11.8)
[2018-01-23 23:47] LABS: Activated Partial Thrombo Time 50.5 seconds (23.6-34.0)
[2018-01-23 23:57] VITALS: BP 120/58; PULSE 63; RESP 16; O2SAT 99
[2018-01-24 00:01] LABS: Alanine Aminotransferase 35 U/L (12-78); Albumin Level 3.8 gm/dL (3.4-5.0); Albumin/Globulin Ratio 0.9 (1.1-1.8); Alkaline Phosphatase 253 U/L (46-116); Aspartate Amino Transferase 16 U/L (15-37); Bilirubin,Total 0.3 mg/dL (0.2-1.0); Blood Urea Nitrogen 20 mg/dL (7-18); CKMB Relative Index 1.7 U/L (0-4.0); Calcium 8.8 mg/dL (8.5-10.1); Carbon Dioxide 28 mmol/L (21.0-32.0); Chloride 94 mmol/L (98-107); Creatine Kinase 29 U/L (26-192); Creatine Kinase MB 0.5 mg/ml (0.0-3.6); Creatinine Clearance Estimated 71 mL/min (0-300); Estimated Glomerular Filt Rate 51 ml/min (>60); GFR (African American) 61 ML/MIN (>60); Globulin 4.3 gm/dl (1.3-3.2); Glucose 129 mg/dL (74-106); Sodium 131 mmol/L (136-145); Total Protein,Serum 8.1 gm/dL (6.4-8.2); Troponin I < 0.02 ng/ml (0.00-0.06)
--- NOTE | 2018-01-24 01:13 | PC.NURSE ---
dr joaquin spoke with dr coffey
--- NOTE | 2018-01-24 01:15 | HMH.EDCP ---
ED Disposition Clinical Impression: Renal insufficiency Chest pain Qualifiers: Chest pain type: other chest pain Qualified Code(s): R07.89 - Other chest pain; R07.8 - Other chest pain Atrial fibrillation Qualifiers: Atrial fibrillation type: chronic Qualified Code(s): I48.2 - Chronic atrial fibrillation Disposition: Home, Self-Care Condition on Discharge: Good Instructions: DI for Atypical Chest Pain Additional Instructions: see pcp for follow up Referrals: Rad Galvan MD [Primary Care Provider] - - Critical Care Critical Care Time: No Attestation: On 01/23/18, the high probability of a clinically significant, sudden or life threatening deterioration of the following system(s) required my full and direct attention, intervention and personal management. The time I documented below is in addition to time spent performing reported procedures but includes the following listed in this critical care notation. Medical Decision Making - Medical Records Medical records reviewed: Yes: I reviewed the patient's medical records. Vital Signs: 01/23/18 23:01 01/23/18 23:40 01/23/18 23:57 Temperature 97.9 F Temperature Source Oral Pulse Rate [Right Radial] 75 70 63 Respiratory Rate 14 14 16 Blood Pressure [Right Radial Artery] 129/74 118/68 120/58 Blood Pressure Mean [Right Radial Artery] 92 84 78 Blood Pressure Source [Right Radial Artery] Automatic Cuff Manual Cuff/ Auscultation Manual Cuff/ Palpation Blood Pressure Position [Right Radial Artery] Sitting Sitting Sitting 02 Sat by Pulse Oximetry 98 98 99 Oxygen Delivery Method Room Air Room Air Nasal Cannula Oxygen Flow Rate (LPM) 2 - Lab Data Lab results reviewed: Yes: I reviewed the patient's lab results. Lab Results 01/23/18 23:23: WBC 8.2, RBC 4.25, Hgb 13.9, Hct 42.5, MCV 99.9 H, MCH 32.6 H, MCHC 32.6, RDW 13.4, Plt Count 274, MPV 7.7, Neut % (Auto) 64.5, Lymph % (Auto) 25.9, Jewell % (Auto) 7.4, Eos % (Auto) 1.9, Baso % (Auto) 0.3, Neut # (Auto) 5.3, Lymph # (Auto) 2.1, Jewell # (Auto) 0.6, Eos # (Auto) 0.2, Baso # (Auto) 0.0 01/23/18 23:23: PT 14.1 H, INR 1.30 H, APTT 50.5 H* 01/23/18 23:23: Sodium 131 L, Potassium 4.0, Chloride 94 L, Carbon Dioxide 28, Anion Gap 13.0, BUN 20 H, Creatinine 1.10 H, Estimated Creat Clear 71, Estimated GFR 51 L, Est GFR ( Amer) 61, Glucose 129 H, Calcium 8.8, Total Bilirubin 0.3, AST 16, ALT 35, Alkaline Phosphatase 253 H, Total Creatine Kinase 29, CK-MB (CK-2) 0.5, CK-MB (CK-2) Rel Index 1.7, Troponin I < 0.02, Total Protein 8.1, Albumin 3.8, Globulin 4.3 H, Albumin/Globulin Ratio 0.9 L 01/24/18 02:15: Troponin I < 0.02 Result diagrams: 01/23/18 23:23 01/23/18 23:23 Orders (Tests/Meds): ED MEDICATIONS Discontinued Medications Generic Name Dose Route Start Last Admin Trade Name Heriq PRN Reason Stop Dose Admin Aspirin 324 mg 01/23/18 23:14 01/23/18 23:19 Aspirin 81mg Chewable Tablet PO 01/23/18 23:15 324 mg ONCE ONE Administration Nitroglycerin 0.4 mg 01/23/18 23:14 01/23/18 23:19 Nitrostat 0.4mg Sl Tablet SL 01/23/18 23:15 0.4 mg ONCE ONE Administration Nitroglycerin 0.4 mg 01/23/18 23:33 01/23/18 23:34 Nitrostat 0.4mg Sl Tablet SL 01/23/18 23:34 0.4 mg ONCE ONE Administration Nitroglycerin 0.4 mg 01/23/18 23:57 01/23/18 23:58 Nitrostat 0.4mg Sl Tablet SL 01/23/18 23:58 0.4 mg ONCE ONE Administration ORDERS Category Date Time Status XR chest 2V Stat Exams 01/23/18 23:14 Taken - Radiology Data #1 Image(s): Chest Image Reviewed: Yes I reviewed the patient's radiology image Preliminary Findings: Normal/NAD - ECG Data Tracing #1 I reviewed this ECG and interpreted as documented below: Arrhythmias present: afib, other (pacemaker) Ischemic changes: non-specific ST-T wave changes - Physician Consults Physician Consulted: alexx Reason -: Pt condition - Neil Inquiry Pt receiving controlled substance: No Chest Pippa
[2018-01-24 02:39] LABS: Troponin I < 0.02 ng/ml (0.00-0.06)
[2018-01-24 03:15] VITALS: BP 128/78; PULSE 72; RESP 14; TEMP 37.1; O2SAT 99
== END 2018-01-24 03:18 | disposition home or self-care (01) ==
PROVIDERS: Emergency Provider Emergency Medicine; PCP Family Medicine
DX: R07.89 Other chest pain (principal); N28.9 Disorder of kidney and ureter, unspecified; I48.2 Chronic atrial fibrillation; Z79.899 Other long term (current) drug therapy; Z88.8 Allergy status to other drugs, medicaments and biological substances
CPT/HCPCS: 36415; 71046; 80053; 82550; 82553; 84484; 85025; 85610; 85730; 93005; 99283

== ENCOUNTER → 2018-02-05 13:20 | Outpatient (CLI) | payer BC, SELFPAY ==
--- NOTE | 2018-02-05 13:25 | US_ITS ---
US thyroid HISTORY: Follow-up thyroid nodules ITS.REASON: EUTHRIOID GOITER, THYROID NEOPLASM ORDERING PHYSICIAN: Memo Vera MD PATIENT AGE: 62 years COMPARISON: None FINDINGS: Right lobe: The right lobe measures 4.9 x 1.9 x 2.0 cm 12 mm heterogeneous nodule in the upper pole unchanged. 10 mm isoechoic nodule upper pole unchanged, 4 mm hypoechoic nodule midpole unchanged, 9 mm pericolic nodule mid aspect unchanged, 9 mm spongiform hypoechoic nodule lower pole unchanged Left lobe: Left lobe measures 4.3 x 1.1 0.6 cm. 6 mm hypoechoic nodule upper pole unchanged, 9 mm heterogeneous echo a nodule upper pole unchanged. 13 mm hypoechoic nodule lower pole unchanged, heterogeneous 7 mm nodule lower pole unchanged Isthmus: Unremarkable IMPRESSION: No change multinodular goiter
[2018-02-05 15:39] LABS: Free T4 (Free Thyroxine) 1.05 ng/dl (0.76-1.46)
[2018-02-06 15:13] LABS: Thyroid Stimulating Hormone 1.07 uIU/ml (0.358-3.740)
== END ==
PROVIDERS: PCP Family Medicine; Visit Provider Otolaryngology
DX: D49.7 Neoplasm of unspecified behavior of endocrine glands and other parts of nervous system (principal); E04.9 Nontoxic goiter, unspecified
CPT/HCPCS: 36415; 76536; 84439; 84443

== ENCOUNTER → 2018-02-05 14:18 | Outpatient (CLI) | payer BC, SELFPAY | PROVIDERS: Visit Provider Otolaryngology | DX: D49.7 Neoplasm of unspecified behavior of endocrine glands and other parts of nervous system (principal); E04.9 Nontoxic goiter, unspecified | CPT/HCPCS: 36415; 84439 ==

== ENCOUNTER 2018-05-05 13:03 | Outpatient (RCR) | payer BC, SELFPAY | END 2018-07-31 14:26 | disposition home or self-care (01) | LOC: PT 13:03 | PROVIDERS: PCP Family Medicine; Visit Provider Internal Medicine | DX: I25.10 Atherosclerotic heart disease of native coronary artery without angina pectoris (principal) | CPT/HCPCS: 93798 ==

== ENCOUNTER → 2018-05-11 13:23 | Outpatient (CLI) | payer BC, SELFPAY ==
[2018-05-11 17:11] LABS: Blood Urea Nitrogen 15 mg/dL (7-18); Calcium 8.8 mg/dL (8.5-10.1); Carbon Dioxide 30 mmol/L (21.0-32.0); Chloride 97 mmol/L (98-107); Creatinine,Serum 0.97 mg/dL (0.55-1.02); Estimated Glomerular Filt Rate 58 ml/min (>60); GFR (African American) 71 ML/MIN (>60); Glucose 295 mg/dL (74-106); Sodium 137 mmol/L (136-145)
== END ==
PROVIDERS: Visit Provider Physician Assistant
DX: I42.9 Cardiomyopathy, unspecified (principal); I50.9 Heart failure, unspecified
CPT/HCPCS: 36415; 80048; 83880

== ENCOUNTER → 2018-07-02 20:00 | Outpatient (CLI) | payer BC, SELFPAY | PROVIDERS: PCP Family Medicine; Visit Provider Internal Medicine | DX: G47.33 Obstructive sleep apnea (adult) (pediatric) (principal); I10 Essential (primary) hypertension; R40.0 Somnolence; I48.91 Unspecified atrial fibrillation | CPT/HCPCS: 95810 ==

== ENCOUNTER → 2018-09-24 16:28 | Outpatient (CLI) | payer BC, SELFPAY ==
--- NOTE | 2018-09-24 16:32 | MM_ITS ---
MM Dig screening mamm BI w/CAD ORDERING PHYSICIAN : Rad Galvan MD PATIENT AGE: 63 years GENDER: Female COMPARISON: February 2012, October 2016 digital mammogram, & April 2000 film screen study INDICATION: ITS.REASON: SCREENING routine screening. No hormones. No new complaints. Noncontributory family history. TECHNIQUE: Standard CC and MLO images were obtained. R2 CAD reviewed. Additional nipple profile MLO views of left breast included FINDINGS: Low-density breast bilaterally with no areas of significant concern. No dominant mass nor suspicious calcification CAD computer review highlights no areas of concern either. RIGHT BREAST:No new findings. Low density fatty breast Follow-up in one year LEFT BREAST:No significant new areas of concern The small density superior retroareolar region unchanged when all views are reviewed Pacemaker is seen overlying the upper axillary portion of the left breast density IMPRESSION: Stable bilateral mammogram. No new areas of concern . Bilateral follow-up in one year BI-RADS Category: 2 Benign Finding(s) RECOMMENDED FOLLOW-UP: 1YR 1 YEAR FOLLOW-UP (A letter has been sent to the patient regarding results of the study.)
== END ==
PROVIDERS: PCP Family Medicine; Visit Provider Family Medicine
DX: Z12.31 Encounter for screening mammogram for malignant neoplasm of breast (principal)
CPT/HCPCS: 77067

== ENCOUNTER → 2019-01-26 10:48 | Outpatient (CLI) | payer BC, SELFPAY ==
[2019-01-26 11:44] LABS: Basophils % 0.5 % (0.1-2.0); Eosinophils # 0.1 K/mm3 (0.0-0.4); Eosinophils % 1.5 % (0.1-12.0); Hematocrit 38.3 % (37.0-47.0); Hemoglobin 12.8 g/dL (12.2-16.2); Lymphocytes # 1.8 K/mm3 (0.7-4.5); Lymphocytes % 22.9 % (10-50); Mean Corpuscular HGB Conc 33.3 g/dL (31.8-35.4); Mean Corpuscular Hemoglobin 32.3 pg (27.0-31.2); Mean Corpuscular Volume 96.9 fl (81-99); Mean Platelet Volume 7.4 fl (7.4-10.4); Monocytes # 0.5 K/mm3 (0.1-1.0); Monocytes % 6.8 % (1.7-9.3); Neutrophils # 5.2 K/mm3 (1.8-7.8); Neutrophils % 68.3 % (37.0-80.0); Platelet Count 238 K/mm3 (142-424); Red Blood Count 3.95 M/mm3 (4.20-5.40); Red Cell Distribution Width 14.2 % (11.5-17.5); White Blood Count 7.7 K/mm3 (4.8-10.8)
[2019-01-26 12:19] LABS: Alanine Aminotransferase 29 U/L (12-78); Albumin Level 3.5 gm/dL (3.4-5.0); Alkaline Phosphatase 185 U/L (46-116); Anion Gap 13.8 mEq/L (5-15); Aspartate Amino Transferase 15 U/L (15-37); Bilirubin,Direct 0.1 mg/dL (0.0-0.2); Bilirubin,Indirect 0.3 mg/dL (0.0-0.9); Bilirubin,Total 0.4 mg/dL (0.2-1.0); Blood Urea Nitrogen 21 mg/dL (7-18); Carbon Dioxide 29 mmol/L (21.0-32.0); Chloride 100 mmol/L (98-107); Chol/HDL Ratio 2.9 (1-3.5); Cholesterol 122 mg/dL (140-200); Creatinine,Serum 1.06 mg/dL (0.55-1.02); Estimated Glomerular Filt Rate 53 ml/min (>60); Free T4 (Free Thyroxine) 1.07 ng/dl (0.76-1.46); GFR (African American) 64 ML/MIN (>60); Glucose 185 mg/dL (74-106); HDL Cholesterol 42 mg/dL (29-89); LDL Cholesterol 33 mg/dL (0-130); Potassium 3.8 mmoL/L (3.5-5.1); Sodium 139 mmol/L (136-145); Thyroid Stimulating Hormone 1.29 uIU/ml (0.358-3.740); Total Protein,Serum 7.4 gm/dL (6.4-8.2); Triglycerides 233 mg/dL (30-200); VLDL Cholesterol 47 mg/dL (0-40)
== END ==
PROVIDERS: Visit Provider Internal Medicine
DX: E78.5 Hyperlipidemia, unspecified (principal); I11.9 Hypertensive heart disease without heart failure; I25.10 Atherosclerotic heart disease of native coronary artery without angina pectoris; I42.9 Cardiomyopathy, unspecified; I48.91 Unspecified atrial fibrillation; I50.9 Heart failure, unspecified; R06.02 Shortness of breath; Z95.810 Presence of automatic (implantable) cardiac defibrillator
CPT/HCPCS: 36415; 80048; 80061; 80076; 84439; 84443; 85025

== ENCOUNTER → 2019-01-28 08:59 | Outpatient (CLI) | payer BC, SELFPAY ==
[2019-01-28 11:37] LABS: Free T4 (Free Thyroxine) 1.06 ng/dl (0.76-1.46); Thyroid Stimulating Hormone 1.57 uIU/ml (0.358-3.740)
== END ==
PROVIDERS: Visit Provider Otolaryngology
DX: E04.9 Nontoxic goiter, unspecified (principal)
CPT/HCPCS: 36415; 84439; 84443

== ENCOUNTER → 2019-02-04 15:03 | Outpatient (CLI) | payer BC, SELFPAY ==
--- NOTE | 2019-02-04 15:15 | US_ITS ---
US thyroid HISTORY: Difficulty swallowing, history of thyroid nodules ITS.REASON: HX THYROID NODULES ORDERING PHYSICIAN: Memo Vera MD PATIENT AGE: 63 years Comparison: 02/05/2018 FINDINGS: Ileus versus thickened at 8 mm Right lobe is 4.5 x 1.9 x 2.1 cm. There is diffuse heterogeneous echogenicity of the right lobe. Multiple hypoechoic and isoechoic nodules are present. The largest nodule is in the posterior aspect of the right lobe having a spongiform appearance measuring 17 x 10 mm unchanged. The left lobe is 4.1 x 2 x 1.7 cm with multiple hypoechoic and isoechoic nodules. Largest nodules in the lower pole posteriorly at 12 x 7 mm unchanged. IMPRESSION: No change multinodular goiter
== END ==
LOC: RAD 15:03
PROVIDERS: PCP Family Medicine; Visit Provider Otolaryngology
DX: E04.1 Nontoxic single thyroid nodule (principal); E06.9 Thyroiditis, unspecified
CPT/HCPCS: 76536

== ENCOUNTER → 2019-04-13 11:51 | Outpatient (CLI) | payer BC, SELFPAY ==
[2019-04-13 14:11] LABS: Blood Urea Nitrogen 27 mg/dL (7-18); Calcium 8.5 mg/dL (8.5-10.1); Carbon Dioxide 30 mmol/L (21.0-32.0); Chloride 100 mmol/L (98-107); Creatinine,Serum 1.26 mg/dL (0.55-1.02); Estimated Glomerular Filt Rate 43 ml/min (>60); GFR (African American) 52 ML/MIN (>60); Glucose 149 mg/dL (74-106); Sodium 138 mmol/L (136-145)
== END ==
PROVIDERS: Visit Provider Internal Medicine
DX: E11.9 Type 2 diabetes mellitus without complications (principal); Z79.4 Long term (current) use of insulin; G47.33 Obstructive sleep apnea (adult) (pediatric); I10 Essential (primary) hypertension; I25.10 Atherosclerotic heart disease of native coronary artery without angina pectoris; I42.8 Other cardiomyopathies; I42.9 Cardiomyopathy, unspecified; I48.91 Unspecified atrial fibrillation; I50.30 Unspecified diastolic (congestive) heart failure; I50.9 Heart failure, unspecified; R06.00 Dyspnea, unspecified
CPT/HCPCS: 36415; 80048; 83880

== ENCOUNTER → 2019-05-07 08:59 | Outpatient (CLI) | payer MEDICARE, SELFPAY ==
--- NOTE | 2019-05-07 09:03 | CA_ITS ---
PROCEDURE: 2-D M-mode and color Doppler study INDICATIONS FOR THE TEST: Chest pain+ COPD Heart Murmur Tobacco Smoking Palpitations Fatigue+ Syncope+ Edema Hypertension+Diabetes Mellitus Rheumatic Fever SOB+LGAOS Obesity Hyperlipidemia+ Family History HD Additional History AF, CM, EF 30% 12/11, AICD PATIENT INFORMATION HEIGHT: 60 WEIGHT:201 GENDER: Female B/P:113/58 2-D/M-MODE INTERPRETATION: 2-D MEASUREMENTS OBSERVED VALUES IN CMS Right Ventricular Dimension (RVDd) 3.5 Interventricular Septum (Thickness)(IVsd) 1.3 Left Ventricular Internal Dimensions(LVIDd) 5.2 Left Ventricular Posterior Wall (Thickness)(LVPWd) 0.8 Aortic Root 3.0 Aortic Cusp Separation 2.1 Left Atrial Dimensions (LAD) 4.7 2D 1. Left atrium is moderately enlarged, left ventricle is normal size, mild concentric left ventricular hypertrophy, visually estimated ejection fraction 40%, left ventricle is globally hypokinetic, there is abnormal septal motion, endocardial surfaces are poorly visualized. 2. The right atrium and right ventricle are mildly enlarged with normal contractility. There is a pacemaker lead seen in the right ventricle. 3. The aortic valve is thickened and calcified leaflet continue to display mobility. 4. The mitral and tricuspid valve leaflets are minimally thickened 5. The pulmonic valve is visualized. 6. No significant pericardial effusion noted. DOPPLER INTERROGATION: Doppler interrogation of the aortic, mitral and tricuspid valvular presence of moderate mitral and moderate tricuspid regurgitation, calculated right ventricular systolic pressure is 42 mmHg consistent with moderate pulmonary hypertension. CONCLUSION: 1. Biatrial enlargement, normal left ventricular size, mild concentric left ventricular hypertrophy, visually estimated ejection fraction approximately 40%, there is abnormal septal motion. Diastolic parameters are inconclusive. 2. Enlarged right ventricle with normal contractility. 3. Moderate mitral and tricuspid regurgitation, calculated right ventricular systolic pressure is 42 mmHg consistent with moderate pulmonary hypertension. 4. No significant pericardial effusion noted.
== END ==
PROVIDERS: PCP Family Medicine; Visit Provider Urology
DX: I42.8 Other cardiomyopathies; I25.10 Atherosclerotic heart disease of native coronary artery without angina pectoris; I48.91 Unspecified atrial fibrillation; I50.30 Unspecified diastolic (congestive) heart failure; R06.00 Dyspnea, unspecified; E11.9 Type 2 diabetes mellitus without complications; G47.33 Obstructive sleep apnea (adult) (pediatric); Z79.4 Long term (current) use of insulin; Z79.84 Long term (current) use of oral hypoglycemic drugs
CPT/HCPCS: 93306

== ENCOUNTER 2019-05-12 09:39 | Emergency (ER) | payer OTHER, MEDICARE, SELFPAY ==
[2019-05-12 09:40] VITALS: BP 131/64; PULSE 100; RESP 18; TEMP 36.6; O2SAT 95; BMI 38.7
--- NOTE | 2019-05-12 09:43 | XR_ITS ---
XR chest 2V HISTORY: ITS.REASON: CHEST PAIN ORDERING PHYSICIAN: Philip Ralph MD PATIENT AGE: 64 years COMPARISON: 01/23/2018 FINDINGS: The cardiomediastinal silhouette and pulmonary vascularity are within normal limits. There is an AICD device present from left subclavian approach in good position. Lungs are clear bilaterally. No acute bony findings. IMPRESSION: No change with no acute finding. AICD device present
[2019-05-12 09:55] VITALS: BP 96/42; PULSE 67; O2SAT 95
[2019-05-12 10:04] LABS: Basophils % 0.5 % (0.1-2.0); Eosinophils # 0.1 K/mm3 (0.0-0.4); Eosinophils % 2.3 % (0.1-12.0); Hematocrit 32.9 % (37.0-47.0); Lymphocytes # 1.4 K/mm3 (0.7-4.5); Lymphocytes % 23.2 % (10-50); Mean Corpuscular HGB Conc 33.4 g/dL (31.8-35.4); Mean Corpuscular Hemoglobin 31.9 pg (27.0-31.2); Mean Corpuscular Volume 95.5 fl (81-99); Monocytes # 0.4 K/mm3 (0.1-1.0); Monocytes % 7.2 % (1.7-9.3); Neutrophils # 3.9 K/mm3 (1.8-7.8); Neutrophils % 66.8 % (37.0-80.0); Platelet Count 191 K/mm3 (142-424); Red Blood Count 3.45 M/mm3 (4.20-5.40); Red Cell Distribution Width 14.2 % (11.5-17.5); White Blood Count 5.9 K/mm3 (4.8-10.8)
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
[2019-05-12 10:36] VITALS: BP 117/54; PULSE 67; O2SAT 95
[2019-05-12 10:39] LABS: Anion Gap 16.7 mEq/L (5-15); Blood Urea Nitrogen 23 mg/dL (7-18); Calcium 9.1 mg/dL (8.5-10.1); Carbon Dioxide 25 mmol/L (21.0-32.0); Chloride 103 mmol/L (98-107); Creatinine Clearance Estimated 76 mL/min (50-200); Creatinine,Serum 1.12 mg/dL (0.55-1.02); Estimated Glomerular Filt Rate 49 ml/min (>60); GFR (African American) 60 ML/MIN (>60); Glucose 155 mg/dL (74-106); Potassium 3.7 mmoL/L (3.5-5.1); Sodium 141 mmol/L (136-145); Troponin I < 0.02 ng/ml (0.00-0.06)
[2019-05-12 11:00] VITALS: BP 106/58; PULSE 57; RESP 20; O2SAT 94
[2019-05-12 11:20] VITALS: BP 126/66; PULSE 68; RESP 18; TEMP 36.6; O2SAT 100
== END 2019-05-12 11:26 | disposition home or self-care (01) ==
PROVIDERS: Emergency Provider Emergency Medicine
DX: S20.219A Contusion of unspecified front wall of thorax, initial encounter (principal); V87.7XXA Person injured in collision between other specified motor vehicles (traffic), initial encounter; I48.91 Unspecified atrial fibrillation; I10 Essential (primary) hypertension; Z95.810 Presence of automatic (implantable) cardiac defibrillator; E11.9 Type 2 diabetes mellitus without complications; Z79.4 Long term (current) use of insulin; Z79.84 Long term (current) use of oral hypoglycemic drugs; E78.5 Hyperlipidemia, unspecified
CPT/HCPCS: 71046; 80048; 84484; 85025; 93005; 96374; 99283

== ENCOUNTER → 2019-06-08 12:53 | Outpatient (CLI) | payer MEDICARE, SELFPAY ==
[2019-06-08 14:09] LABS: Anion Gap 13.3 mEq/L (5-15); Blood Urea Nitrogen 24 mg/dL (7-18); Calcium 9.3 mg/dL (8.5-10.1); Carbon Dioxide 30 mmol/L (21.0-32.0); Chloride 102 mmol/L (98-107); Creatinine,Serum 1.05 mg/dL (0.55-1.02); Estimated Glomerular Filt Rate 53 ml/min (>60); GFR (African American) 64 ML/MIN (>60); Glucose 143 mg/dL (74-106); Potassium 4.3 mmoL/L (3.5-5.1); Sodium 141 mmol/L (136-145)
== END ==
PROVIDERS: Visit Provider Physician Assistant
DX: I42.9 Cardiomyopathy, unspecified; E11.9 Type 2 diabetes mellitus without complications; I25.10 Atherosclerotic heart disease of native coronary artery without angina pectoris; I42.8 Other cardiomyopathies; I48.91 Unspecified atrial fibrillation; I50.30 Unspecified diastolic (congestive) heart failure; I50.9 Heart failure, unspecified; R06.00 Dyspnea, unspecified; R60.9 Edema, unspecified; G47.33 Obstructive sleep apnea (adult) (pediatric); Z79.84 Long term (current) use of oral hypoglycemic drugs
CPT/HCPCS: 36415; 80048; 83880

== ENCOUNTER → 2019-07-06 11:19 | Outpatient (CLI) | payer MEDICARE, SELFPAY ==
[2019-07-06 14:01] LABS: Blood Urea Nitrogen 20 mg/dL (7-18); Calcium 8.9 mg/dL (8.5-10.1); Carbon Dioxide 28 mmol/L (21.0-32.0); Chloride 97 mmol/L (98-107); Creatinine,Serum 1.18 mg/dL (0.55-1.02); Estimated Glomerular Filt Rate 46 ml/min (>60); GFR (African American) 56 ML/MIN (>60); Glucose 185 mg/dL (74-106); Sodium 134 mmol/L (136-145)
== END ==
PROVIDERS: Visit Provider Nurse Practitioner Family
DX: I42.9 Cardiomyopathy, unspecified; R07.89 Other chest pain; I25.10 Atherosclerotic heart disease of native coronary artery without angina pectoris; E11.9 Type 2 diabetes mellitus without complications; H53.123 Transient visual loss, bilateral; I48.91 Unspecified atrial fibrillation; I50.20 Unspecified systolic (congestive) heart failure; I50.30 Unspecified diastolic (congestive) heart failure; I50.9 Heart failure, unspecified; K21.9 Gastro-esophageal reflux disease without esophagitis; G47.33 Obstructive sleep apnea (adult) (pediatric); Z79.84 Long term (current) use of oral hypoglycemic drugs
CPT/HCPCS: 36415; 80048

== ENCOUNTER → 2019-07-29 15:02 | Outpatient (CLI) | payer MEDICARE, SELFPAY ==
[2019-07-29 16:03] LABS: Anion Gap 9.7 mEq/L (5-15); Blood Urea Nitrogen 21 mg/dL (7-18); Calcium 7.9 mg/dL (8.5-10.1); Carbon Dioxide 27 mmol/L (21.0-32.0); Chloride 88 mmol/L (98-107); Creatinine,Serum 0.31 mg/dL (0.55-1.02); Estimated Glomerular Filt Rate 217 ml/min (>60); GFR (African American) 263 ML/MIN (>60); Glucose 141 mg/dL (74-106); Potassium 3.7 mmoL/L (3.5-5.1); Sodium 121 mmol/L (136-145)
== END ==
PROVIDERS: Urology; Visit Provider Physician Assistant
DX: I42.0 Dilated cardiomyopathy (principal)
CPT/HCPCS: 36415; 80048

== ENCOUNTER → 2019-08-09 12:30 | Outpatient (CLI) | payer MEDICARE, SELFPAY ==
[2019-08-09 15:08] LABS: Anion Gap 14.5 mEq/L (5-15); Blood Urea Nitrogen 24 mg/dL (7-18); Calcium 9.2 mg/dL (8.5-10.1); Carbon Dioxide 28 mmol/L (21.0-32.0); Chloride 101 mmol/L (98-107); Creatinine,Serum 1.21 mg/dL (0.55-1.02); Estimated Glomerular Filt Rate 45 ml/min (>60); GFR (African American) 55 ML/MIN (>60); Glucose 94 mg/dL (74-106); Potassium 4.5 mmoL/L (3.5-5.1); Sodium 139 mmol/L (136-145)
== END ==
PROVIDERS: Visit Provider Urology
DX: E11.9 Type 2 diabetes mellitus without complications (principal); G47.33 Obstructive sleep apnea (adult) (pediatric); H53.123 Transient visual loss, bilateral; I25.10 Atherosclerotic heart disease of native coronary artery without angina pectoris; I42.0 Dilated cardiomyopathy; I42.8 Other cardiomyopathies; I48.2 Chronic atrial fibrillation; I50.42 Chronic combined systolic (congestive) and diastolic (congestive) heart failure; K21.9 Gastro-esophageal reflux disease without esophagitis; R07.89 Other chest pain; Z79.84 Long term (current) use of oral hypoglycemic drugs; Z79.4 Long term (current) use of insulin
CPT/HCPCS: 36415; 80048

== ENCOUNTER → 2019-10-19 09:11 | Outpatient (CLI) | payer MEDICARE, SELFPAY ==
--- NOTE | 2019-10-19 09:23 | XR_ITS ---
PROCEDURE: XR FOOT RT MIN 3V CLINICAL INDICATION: RT FOOT PAIN COMPARISON: No exams were available for comparison FINDINGS: No fracture or dislocation. No lytic or blastic change. There is normal mineralization. The joint spaces are well-preserved. No significant degenerative/arthritic changes. No erosive changes evident. Other findings:None. IMPRESSION: No acute findings. Dictated by: Momo Jorgensen MD 10/19/2019 16:14 Electronically signed by Momo Jorgensen MD in [place] 10/19/2019 16:14
== END ==
PROVIDERS: PCP Family Medicine; Visit Provider Family Medicine
DX: M79.671 Pain in right foot (principal)
CPT/HCPCS: 73630

== ENCOUNTER → 2019-11-29 07:58 | Outpatient (POV) | payer MEDICARE, SELFPAY | PROVIDERS: Visit Provider Specialist | DX: R29.898 Other symptoms and signs involving the musculoskeletal system (principal) | CPT/HCPCS: 95886; 95908 ==

== ENCOUNTER → 2019-12-02 13:44 | Outpatient (CLI) | payer MEDICARE, SELFPAY ==
[2019-12-02 14:03] LABS: Blood Urea Nitrogen 31 mg/dL (7-18); Creatinine,Serum 1.42 mg/dL (0.55-1.02); Estimated Glomerular Filt Rate 37 ml/min (>60); GFR (African American) 45 ML/MIN (>60)
--- NOTE | 2019-12-02 14:06 | CT_ITS ---
PROCEDURE: CT HEAD/BRAIN WO/W CON CLINICAL INDICATION: APHASIA Dizziness, aphasia COMPARISON: [facility] CT HEAD W/O CONTRAST from 07/23/2016 TECHNIQUE: IV Contrast: 100ML OPITRAY 320 Axial images are obtained without and with contrast Axial images obtained. All CT scans at the facility use one or more dose reduction, viz: automated exposure control, ma/kV adjustment per patient size (including targeted exams where dose is matched to indication, i.e. head), or iterative reconstruction technique. FINDINGS: No midline shift, mass effect, intracranial hemorrhage, hydrocephalus, or extra-axial fluid collection is evident. There are few areas of decreased periventricular decreased attenuation consistent with ischemic gliotic change from microvascular disease. No enhancing lesions evident. The calvarium has an unremarkable appearance. No mastoid effusion no sinus air-fluid level IMPRESSION: No acute intracranial findings Dictated by: Momo Jorgensen MD 12/02/2019 15:10 Electronically signed by Momo Jorgensen MD in [place] 12/02/2019 15:10
== END ==
LOC: RAD 13:45
PROVIDERS: Visit Provider Family Medicine
DX: R47.01 Aphasia (principal)
CPT/HCPCS: 36415; 70470; 82565; 84520; Q9967

== ENCOUNTER → 2019-12-10 06:11 | Outpatient (CLI) | payer MEDICARE, SELFPAY ==
--- NOTE | 2019-12-10 06:11 | CA_ITS ---
APPROVED REPORT EXAM: Comprehensive 2D, Doppler, and color-flow Echocardiogram Almond Pan Finisher: Aundrea Michael CRT Ht: 5 ft 1 in Wt: 207lbs BSA: 1.92 BP: 124/58 mmHg Indications: Chest Pain, Arrhythmia, Shortness of Breath, Atrial Fibrillation, Obesity, Dyspnea, Hyperlipidemia, Hypertension/HDD, AICD 2D Dimensions LVOT 1.99 cm (M/F) 1.5-2.5 M-Mode Dimensions RVDd 3.53 cm (0.9-2.6) LVDd 5.85 cm (3.5-5.7) LVDs 4.92 cm (3.5-5.7) IVSd 1.03 cm (0.6-1.1) PWd 0.63 cm (0.6-1.1) EF (Teich) 33.00% FS 15.90% EDV (Teich) 169.90 mL ESV (Teich) 113.90 mL Left Ventricle Technically very difficult study, endocardial sounds are very poorly visualized, ejection fraction could not be estimated from this study, a repeat study with Definity contrast is recommended. Mildly enlarged left atrium, mildly dilated left ventricle, mild concentric left ventricular hypertrophy, ejection fraction is difficult to estimate from this study. Diastolic parameters are inconclusive. Right Ventricle Right atrium and right ventricle mildly enlarged with normal contractility, there is a AICD lead seen in the right right ventricle. Aortic Valve Aortic valve is minimally thickened and fibrosed there is no aortic stenosis or aortic insufficiency. Mitral Valve Mitral valve leaflets are minimally thickened, there is mild mitral regurgitation. Tricuspid Valve Tricuspid valve is grossly normal, there is mild tricuspid regurgitation. Tricuspid irritation jet velocity is inadequate for calculation of the right ventricular systolic pressure. Pulmonic Valve Pulmonic valve is poorly visualized. Great Vessels Aortic root is normal size. Pericardium No significant pericardial effusion noted. Conclusion 1. Technically very difficult study, endocardial surfaces are very poorly visualized, ejection fraction cannot be estimated from the study, a repeat study with Definity contrast is recommended. Diastolic parameters are inconclusive. 2. Mildly enlarged right ventricle with normal contractility. 3. Mild mitral and tricuspid regurgitation. 4. No significant pericardial effusion noted. Electronically signed by : Roney Wyatt, 12/10/2019 20:09:12
--- NOTE | 2019-12-10 06:25 | NM_ITS ---
APPROVED REPORT Exam: Nuclear Stress Test Indication: ANGINA, DYSPNEA, SOB, HTN, DM, HYPERLIPIDEMIA, FM.Nba KRISHNAMURTHY FATIQUE Patient Location: Outpatient Stress Tech: Lisa LirianoLeydi RI Tech:Yu Peñaloza, ARRT RT(R)(N) Ht: 5 ft 1 in Wt: 203 lbs Bra Size: 38DD HR: 69 bpm BP: 116/53 mmHg BSA: 1.90 m2 BMI: 38.3 History: ANGINA, DYSPNEA, SOB, HTN, DM, HYPERLIPIDEMIA, FM.Nba KRISHNAMURTHY, CHRIS Procedure: Patient received a 0.4 mg of intravenous Lexiscan, resting heart rate 69 bpm, resting blood pressure 116/53 mmHg, with Lexiscan maximum heart rate achived was 79 bpm which is Less than 85 % of the maximum predicted heart rate and blood pressure was 122/44 mmHg. With Lexiscan, patient denied any complaint of chest pain. Electrocardiogram Resting EKG shows atrial fibrillation intermittent paced rhythm nonspecific ST-T changes, with Lexiscan less than 1.[address] segment depression noted from the baseline EKG. The EKG portion of the Lexiscan Myoview is nondiagnostic. Cardiac Stress and Resting SPECT Images: Cardiac Stress and Resting SPECT images were obtained using technetium 99m Myoview 29.8 mCi stress and 10.15 mCi at rest. Gated SPECT with analysis of segmental wall motion and calculation of the ejection fraction also done. Cardiac stress and resting SPECT images show a mild fixed defect anteroseptally and anterior apically with normal contractility and the gated SPECT is likely secondary to soft tissue attenuation, no reversible ischemia seen. Computer derived ejection fraction 54% with no regional wall motion abnormality, right ventricle is normal size and contractility. Conclusion: 1. The EKG portion of the Lexiscan Myoview is nondiagnostic. 2. No obvious scintigraphic evidence of reversible ischemia seen, computer derived ejection fraction 54% with no regional wall motion abnormality, right ventricle is normal size and contractility. 3. Likely normal Lexiscan Myoview study. Electronically signed by : Roney Wyatt, 12/10/2019 18:34:45
--- NOTE | 2019-12-10 06:25 | CA_ITS ---
APPROVED REPORT Exam: Pharmacologic Technologist: tricia oates, Ht: 5 ft 1 in Wt: 203 lbs BSA: 1.90 m2 HR: 69 bpm BP: 116/53 mmHg Indications: CP, SOB Medical History Medications: Metformin,,,,, Gabapentin,,,,, Lasix,,,,, Ropinirole,,,,, INSULIN,,,,, Lipitor,,,,, Tramadol,,,,, Protonix,,,,, Bisprolol,,,,, Phenabarbital,,,,, Toresemide,,,,, Allergies: Metoclopramide Cardiac Risk Factors: HTN, Hyperlipidemia, Diabetes (insulin), FHX of CAD Stress Test Details Test: LEXISCAN HR Resting HR: 63 bpm Max Heart Rate (APMHR): 158 bpm Max HR Achieved: 90 bpm Target HR (85% APMHR): 134 bpm % of APMHR: 56 Recovery HR: 76 bpm BP Resting BP: 116/53 mmHg Max BP: 122/59 mmHg Recovery BP: 101.0/50.0 mmHg ECG Resting ECG: A-Fib with PVC and intermitten Paced rhythm Clinical Reason for Termination: Completed Protocol Exercise duration: 04:18 min Highest Stage Achieved: Exercise capacity: 1.0 METs Stress ECG Conclusion No chest pain. Occasional PVC's. Less than 1.5mm ST Segment changes. Non-Diagnostic. Test Summary REST 09:12 . . 63 . 116/ 53 . . Stage 1 01:00 . . 73 . . . . Stage 2 01:00 . . 89 . . . . Stage 3 01:00 . . 68 . . . . Stage 4 01:00 . . 71 . . . . Stage 4 01:18 . . 72 . . . Stop exercise at 04:18 RECOVERY 01:00 . . 82 . . . . RECOVERY 02:00 . . 79 . . . . RECOVERY 03:00 . . 73 . . . . RECOVERY 04:00 . . 87 . 122/ 59 . . RECOVERY 05:00 . . 72 . 106/ 43 . . RECOVERY 05:12 . . 77 . 106/ 43 . . Electronically signed by : Roney Wyatt, 12/10/2019 18:31:56
--- NOTE | 2019-12-10 10:08 | HMH.ITSHM ---
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 []nitro xarelto bisoprol entresto gabapentin phenobarb spironolact tramadol atorvastatin digoxin isosorb loperanide metformin forosemide pantoprozole novolin loratadine biotin torsemide
== END ==
LOC: RAD 06:11
PROVIDERS: PCP Family Medicine; Visit Provider Internal Medicine
DX: R06.00 Dyspnea, unspecified (principal); R06.01 Orthopnea; R06.02 Shortness of breath; I10 Essential (primary) hypertension; I25.10 Atherosclerotic heart disease of native coronary artery without angina pectoris; I42.0 Dilated cardiomyopathy; R07.89 Other chest pain
CPT/HCPCS: 78452; 93017; 93306; A9502; J2785

== ENCOUNTER → 2019-12-22 09:04 | Outpatient (CLI) | payer MEDICARE, SELFPAY ==
--- NOTE | 2019-12-22 09:10 | MM_ITS ---
PROCEDURE: MM DIG SCREENING MAMM BI W/CAD CLINICAL INDICATION: SCREENING There is no personal or family history of breast cancer COMPARISON: [facility] DIGITAL MAMM-SCREEN BILATERAL from 03/20/2012 [facility] DIG MAMM-SCREEN SAIRA from 10/25/2016 [facility] MM Dig screening mamm BI w/CAD from 09/24/2018 TECHNIQUE: Standard CC and MLO images and 3D Tomosinthisis was obtained. R2 CAD reviewed. FINDINGS: The breasts are composed primarily of fat with minimal scattered fibroglandular densities in each breast. There is a stable benign-appearing nodular density just deep to the nipple left breast probably a small cyst or dilated duct. A metallic cardiac device projects over the axilla left breast. There is no suspicious lesion and no suspicious microcalcifications. IMPRESSION: Fatty type breast parenchyma with no suspicious lesions seen BI-RAD Category: 2 Benign Finding(s) FOLLOW-UP: 1YR 1 Year Follow-up (A letter has been sent to the patient regarding results of the study.) Dictated by: Dr. Frankie Castellano MD 12/22/2019 15:[address] Frankie Castellano MD in [place] 12/22/2019 15:31
== END ==
PROVIDERS: PCP Family Medicine; Visit Provider Family Medicine
DX: Z12.31 Encounter for screening mammogram for malignant neoplasm of breast (principal)
CPT/HCPCS: 77063; 77067

== ENCOUNTER 2020-03-27 13:53 | Observation (INO) | payer MEDICARE, SELFPAY ==
[2020-03-27 14:14] VITALS: BP 160/79; PULSE 63; RESP 16; TEMP 36.6; O2SAT 95; BMI 40.6
--- NOTE | 2020-03-27 14:53 | HMH.PNCARD ---
Subjective Date: 03/27/20 Time: 14:53 Principal diagnosis: CHF Interval history: 64-year-old white female seen in the cardiology office today for progressive edema and shortness of breath. Patient has history of insulin-dependent diabetes mellitus, chronic atrial fibrillation for which she is on Xarelto therapy, mild to moderate coronary artery disease by cardiac catheterization in 2017, nonischemic cardiomyopathy that has improved with medical therapy and placement of AICD. Patient has gained 14 pounds since the last office visit earlier this year and believes she has gained most of this in the last week. She denies increase in salt, prepackaged food or fast food stating that she cooks all of her meals. There seems to be some confusion on her diuretic therapy whether she has taken Lasix or torsemide in addition to spironolactone. Patient does physically appear to be swollen but does not have crackles at the bases on exam. She was noted to be short of breath when walking into the office. Discussed the patient with Dr. Galvan and agreement was reached to admit the patient for further evaluation and treatment. Patient did have a Lexiscan Myoview earlier this year in November which showed no ischemia with normalization of her ejection fraction. Echocardiogram earlier this year was a poor study with recommendation to repeat with Definity contrast. Exam Vital signs and Labs for Last 24 Hours: Temp Pulse Resp BP Pulse Ox 97.9 F 63 16 160/79 H 95 03/27/20 14:14 03/27/20 14:14 03/27/20 14:14 03/27/20 14:14 03/27/20 14:14 I & O for Last 24 hours: Intake & Output 03/25/20 03/26/20 03/27/20 03/28/20 11:59 11:59 11:59 11:59 Weight 215 lb 7 oz - *Routine HEENT Exam Head: Present: normocephalic Eye: Present: EOMI, PERRL ENT: Present: mucous membranes moist - *Routine Neck Exam Present: supple. Absent: JVD, carotid bruit - *Routine Respiratory Exam Present: CTA bilaterally. Absent: accessory muscle use, rales, rhonchi, wheezes - *Routine Cardiovascular Exam Present: irregularly irregular. Absent: murmur, gallop, rubs - *Routine Abdominal Exam Present: soft. Absent: tenderness, distended, guarding - *Routine Extremities Exam Present: edema. Absent: calf tenderness - *Routine Neurological Exam Present: alert, oriented X3, moving all extremities Progress Note: A&P (1) Combined systolic and diastolic heart failure Status: Acute Current Visit: Yes (2) Edema Status: Acute Current Visit: No (3) Fatigue Status: Acute Current Visit: No (4) Atrial fibrillation Status: Chronic Current Visit: No (5) Cardiac defibrillator in situ Status: Chronic Current Visit: No (6) Coronary artery disease Status: Chronic Current Visit: No (7) Diabetes mellitus type II, controlled Status: Chronic Current Visit: No (8) Dyspnea Status: Chronic Current Visit: No (9) HLD (hyperlipidemia) Status: Chronic Current Visit: No (10) Hypertensive disorder Status: Chronic Current Visit: No (11) Nonischemic cardiomyopathy Status: Chronic Current Visit: No Assessment and Plan for All Diagnoses:: 1. Patient will be started on IV Lasix 80 mg twice daily along with spironolactone 50 mg twice daily. 2. We will obtain an echocardiogram with Definity to further evaluate the patient's left ventricular ejection fraction and hopefully define her diastolic dysfunction as well as RVSP (previously in the low 40 mm Hg range). 3. Continue Xarelto therapy for chronic atrial fibrillation. 4. Continue beta-johana, digoxin and Entresto therapy for history of nonischemic cardiomyopathy with normalization of ejection fraction by stress test earlier this year.
--- NOTE | 2020-03-27 14:57 | P.CONPHA_ITS ---
[facility] Pharmacy VTE Monitoring - Patient Demographics Admission date: 03/27/20 Report Date: 03/27/20 Time: 14:57 Allergies/Adverse Reactions: Patient Allergies metoclopramide [From REGLAN] Allergy (Mild, Verified 03/27/20 13:19) SHAKES Height: 1.55 m Weight: 97.721 kg - VTE Risk Was VTE Risk Assessment Performed: Yes VTE Risk Level: Low Risk Clinical Trial Participant: No - Prophylaxis VTE Prophylaxis Ordered?: Yes Types of VTE Prophylaxis: TEDS Knee High
--- NOTE | 2020-03-27 15:05 | CA_ITS ---
APPROVED REPORT EXAM: Comprehensive 2D, Doppler, and color-flow Echocardiogram General Contractor: Aundrea Michael CRT Ht: 5 ft 1 in Wt: 215lbs BSA: 1.95 BP: 120/82 mmHg Indications: Congestive Heart Failure, Shortness of Breath, Dyspnea, Peripheral Edema, CAD, Hyperlipidemia, Cardiomyopathy, defibrillator Echo Enhancing Agent Indication: Endocardial border delineation Agent(s) / Amount(s) Used: Definity 2 cc 2D Dimensions LVOT 2.08 cm (M/F) 1.5-2.5 M-Mode Dimensions RVDd 2.93 cm (0.9-2.6) LVDd 6.33 cm (3.5-5.7) LVDs 5.03 cm (3.5-5.7) IVSd 0.91 cm (0.6-1.1) PWd 0.50 cm (0.6-1.1) EF (Teich) 41.10% FS 20.50% EDV (Teich) 203.40 mL ESV (Teich) 119.90 mL Left Ventricle Technically very difficult study, Definity contrast was tested delineate the endocardial surfaces, left atrium is moderately enlarged, left ventricle is normal size, mild concentric left ventricular hypertrophy, visually estimated ejection fraction 30%, left ventricle is globally hypokinetic, diastolic parameters are inconclusive. Right Ventricle Right atrium is moderately enlarged, right ventricle is mildly dilated normal contractility, there is an AICD lead seen right atrium and right ventricle. Aortic Valve Aortic valve is thickened and calcified leaflet chordae display good mobility, there is no aortic stenosis or aortic insufficiency. Mitral Valve Mitral valve is minimally thickened, there is no mitral stenosis, there is mild mitral regurgitation. There is tall R wave with restriction filling pattern suggestive of raise left ventricular end-diastolic pressure. Tricuspid Valve Tricuspid valve is minimally thickened, there is mild tricuspid regurgitation, calculated right ventricular systolic pressure is 40mmHg. Pulmonic Valve Pulmonic valve is poorly visualized Great Vessels Aortic root is normal size. Pericardium No significant pericardial effusion noted. Conclusion 1. Moderate biatrial enlargement, normal left ventricular size, left ventricle is globally hypokinetic, Definity contrast worked as to delineate the endocardial surfaces, Doppler evidence of raise left ventricular end-diastolic pressure. 2. Mildly enlarged right ventricle with normal contractility. 3. Thickened and calcified aortic valve without Doppler evidence of aortic stenosis aortic insufficiency. 4. Mild mitral and tricuspid regurgitation, calculated right ventricular systolic pressure is 40 mmHg. 5. No significant pericardial effusion noted. Electronically signed by : Roney Wyatt, 03/27/2020 20:07:38
--- NOTE | 2020-03-27 15:19 | HMH.PHAINT ---
Home medication reconciliation completed using list from [facility], list from Dr. Galvan' office and pt interview.
[2020-03-27 16:00] VITALS: BP 110/71; PULSE 59; RESP 16; TEMP 36.2; O2SAT 98
--- NOTE | 2020-03-27 16:00 | PC.NURSE ---
patient refused jocy hose and seizure pads stating she hadn't had a seizure in over 20 years
[2020-03-27 17:13] LABS: Basophils # 0.1 K/mm3 (0-0.2); Eosinophils # 0.2 K/mm3 (0.0-0.4); Eosinophils % 2.8 % (0.1-12.0); Hematocrit 40.9 % (37.0-47.0); Hemoglobin 13.4 g/dL (12.2-16.2); Lymphocytes # 1.8 K/mm3 (0.7-4.5); Lymphocytes % 26.1 % (10-50); Mean Corpuscular HGB Conc 32.8 g/dL (31.8-35.4); Mean Corpuscular Hemoglobin 33.4 pg (27.0-31.2); Mean Corpuscular Volume 101.8 fl (81-99); Mean Platelet Volume 8.9 fl (7.4-10.4); Monocytes # 0.4 K/mm3 (0.1-1.0); Monocytes % 6.1 % (1.7-9.3); Neutrophils # 4.5 K/mm3 (1.8-7.8); Neutrophils % 64.2 % (37.0-80.0); Platelet Count 219 K/mm3 (142-424); Red Blood Count 4.02 M/mm3 (4.20-5.40); Red Cell Distribution Width 14.7 % (11.5-17.5); White Blood Count 7.1 K/mm3 (4.8-10.8)
--- NOTE | 2020-03-27 17:13 | HMH.HP ---
*Admission Date: 03/27/20 *Chief complaint: Shortness of breath *History of present illness: 64-year-old female with history of nonischemic cardiomyopathy, atrial fibrillation presented to the cardiology office today with a 5-day history of shortness of breath that was progressive in nature. Patient reports approximately 5 days ago she is noticed onset of weight gain and estimates she has gained 14 pounds in the last 5 days. She developed progressive dyspnea on exertion. She presented to the cardiology clinic with these symptoms and decision was made to admit her for treatment of acute congestive heart failure. Since admission echocardiogram is been performed which shows ejection fraction of 35 to 40% which is stable compared to an echocardiogram from April 2019. She reports compliance with her medications [facility] History I have reviewed the patient's past medical history: Yes Medical History: Reports:: Atrial Fibrillation, Cardiomyopathy, Congestive Heart Failure, Coronary Artery Disease, Diabetes Mellitus Type 2, Hyperlipidemia, Hypertension, Internal Pacemaker, Palpitations, Seizures Denies:: Cancer, Diabetes Mellitus Type 1, MRSA *Have you ever received a pneumonia vaccine?: Yes *Have you received a flu vaccine this season?: Yes Other Medical History: Reports: Arthritis Laterality Cases: Bilateral: Tonsillectomy Other Surgeries: Yes: Appendectomy, Cardiac Catheterization, Cholecystectomy, Pacemaker, Other (AICD 2018) Amputation: No Fractures: No - *Social History Educational Level: Completed High School Smoking Status: Former smoker Tobacco Type: cigarettes # Packs/Day (cigarettes): 1 Smoking End Date: 40 years Alcohol Intake: never Alcohol Intake Frequency:: other Substance Use Type: denies use *Occupational Status:: retired Housing: house Household Members: family *Travel in the last 8 weeks: None Family Hx:: Heart Attack, Hyperlipidemia, Hypertension, Kidney Disease Review of Systems - Constitutional Denies body ache(s), Denies chills, Denies fever(s), Denies headache(s), Denies night sweats - *Cardiovascular Denies chest pain - *Respiratory Reports shortness of breath - *Gastrointestinal Denies abdominal pain - *Musculoskeletal Denies joint pain - *Neurologic Denies abnormal walking, Denies abnormal hearing Meds Home Medications Medication Instructions Recorded Confirmed Type RX: Atorvastatin Calcium 10 mg PO DAILY 12/03/17 03/27/20 History [Atorvastatin 10mg Tab] RX: Pantoprazole Sodium [Protonix 40 mg PO BID 12/03/17 03/27/20 History 40mg tablet] RX: Ropinirole HCl 2 mg PO HS 12/03/17 03/27/20 History RX: Tramadol HCl [Ultram 50mg 50 mg PO BID PRN 12/03/17 03/27/20 History tablet] nitroglycerin 0.4 mg sublingual 0.4 mg SUBLINGUAL Q5M PRN #25 tab 01/27/18 03/27/20 Rx tablet rivaroxaban 20 mg tablet 20 mg PO DAILY #90 tab 08/23/19 03/27/20 Rx furosemide 40 mg tablet 40 mg PO TID tab 11/30/19 03/27/20 History torsemide 100 mg tablet 50 mg PO NEEDED PRN tab 11/30/19 03/27/20 History biotin 5 mg capsule 5 mg PO DAILY 12/21/19 03/27/20 History gabapentin 800 mg tablet 800 mg PO TID 12/21/19 03/27/20 History insulin human U-100 NPH-regulr 80 units SQ DAILY 12/21/19 03/27/20 History 70-30 mix 100 unit/mL subcutaneous susp loratadine 10 mg tablet 10 mg PO DAILY 12/21/19 03/27/20 History omega 3-uhv-qst-fish oil 300 1 cap PO BID 12/21/19 03/27/20 History mg-1,000 mg capsule,delayed release spironolactone 50 mg tablet 25 mg PO DAILY 12/21/19 03/27/20 History Multivit,Tx with Iron,Minerals 1 each PO DAILY 02/12/20 03/27/20 History [Complete Multivitamin] RX: Insulin NPH Hum/Reg Insulin Hm 45 units SQ PM 02/12/20 03/27/20 History [Novolin 70-30 100 Unit/ml Vial] RX: Isosorbide Mononitrate [Imdur 30 mg PO DAILY 02/12/20 03/27/20 History 30mg ER tablet] RX: PHENobarbitaL [PHENobarbital 3 tab PO PM 02/12/20 03/27/20 History 32.4mg Tablet] RX: bisoproloL fumarate
[2020-03-27 17:14] LABS: Blood Urea Nitrogen 20 mg/dl (7-17); Creatinine Clearance Estimated 90 mL/min (50-200); Estimated Glomerular Filt Rate 63 ml/min (>60); GFR (African American) 77 ML/MIN (>60)
[2020-03-27 17:15] LABS: Calcium 9.6 mg/dl (8.4-10.2); Carbon Dioxide 34 mmol/L (22.0-30.0); Glucose 77 mg/dl (74-100)
[2020-03-27 17:21] LABS: Chloride 99 mmol/L (98-107); Sodium 140 mmol/L (136-145)
[2020-03-27 17:28] LABS: NT Pro Brain Natriuretic Pep. 625 pg/mL (0-125)
--- NOTE | 2020-03-27 17:53 | PC.NURSE ---
patient has done okay. up independently to bathroom. educated on fluid restriction and need to monitor urine output. vitals have been stable. has had no complaints. refuses seizure pads to bed, seizure medication reordered per md. slight crackles noted in bases. will continue to monitor.
--- NOTE | 2020-03-27 19:16 | PC.NURSE ---
report given to duglas
[2020-03-27 20:00] VITALS: BP 121/61; PULSE 64; RESP 16; TEMP 36.4; O2SAT 96; O2SAT 97
[2020-03-27 23:28] LABS: POC Glucose,Bedside 105 (70-110)
[2020-03-28 04:00] VITALS: BP 108/56; PULSE 65; RESP 16; TEMP 36.5; O2SAT 93; BMI 39.6
--- NOTE | 2020-03-28 07:22 | HMH.ACPN2 ---
Internal Medicine - PN: Subj *Date: 03/28/20 *Time: 07:22 Interval history: Patient has no new complaints. She reports persistent dyspnea on exertion even with short distances such as from her hospital bed to the bathroom. Weight is noted to be down 5 pounds. Patient admits that she is struggling with the fluid restrictions as she drinks frequently at home because of constant dry mouth. Exam Vital signs and Labs for Last 24 Hours: Temp Pulse Resp BP Pulse Ox 97.7 F 65 16 108/56 L 93 L 03/28/20 04:00 03/28/20 04:00 03/28/20 04:00 03/28/20 04:00 03/28/20 04:00 Laboratory Results - last 24 hr 03/27/20 15:30: WBC 7.1, RBC 4.02 L, Hgb 13.4, Hct 40.9, MCV 101.8 H, MCH 33.4 H, MCHC 32.8, RDW 14.7, Plt Count 219, MPV 8.9, Neut % (Auto) 64.2, Lymph % (Auto) 26.1, [place] % (Auto) 6.1, Eos % (Auto) 2.8, Baso % (Auto) 1.0, Neut # (Auto) 4.5, Lymph # (Auto) 1.8, [place] # (Auto) 0.4, Eos # (Auto) 0.2, Baso # (Auto) 0.1 03/27/20 15:30: Sodium 140, Potassium 4.0, Chloride 99, Carbon Dioxide 34 H, Anion Gap 7.0, BUN 20 H, Creatinine 0.90, Estimated Creat Clear 90, Estimated GFR 63, Est GFR ( Amer) 77, Glucose 77, Calcium 9.6, NT-Pro-B Natriuret Pep 625 H 03/27/20 22:37: POC Glucose 105 I & O for Last 24 hours: Intake & Output 03/25/20 03/26/20 03/27/20 03/28/20 11:59 11:59 11:59 11:59 Intake Total 380 / 380 Output Total 2850 / 2850 Balance -2470 / -2470 Weight 210 lb 2 oz Narrative: Patient appears comfortable in bed. The facial swelling that was present yesterday has decreased slightly. Lungs have faint crackles at the right base. Heart has an irregular rate and rhythm. Abdomen is soft. Echocardiogram has officially been reported with an ejection fraction of 30% Assessment and Plan (1) Combined systolic and diastolic heart failure Current visit: Yes Status: Acute Qualifiers: Heart failure chronicity: acute Qualified Code(s): I50.41 - Acute combined systolic (congestive) and diastolic (congestive) heart failure Category: Medical Code(s): I50.40 - Unspecified combined systolic (congestive) and diastolic (congestive) heart failure (2) Edema Current visit: No Status: Acute Qualifiers: Edema type: localized Qualified Code(s): R60.0 - Localized edema Category: Medical Code(s): R60.9 - Edema, unspecified (3) Fatigue Current visit: No Status: Acute Category: Medical Code(s): R53.83 - Other fatigue (4) Atrial fibrillation Current visit: No Status: Chronic Qualifiers: Atrial fibrillation type: longstanding persistent Qualified Code(s): I48.11 - Longstanding persistent atrial fibrillation Category: Medical Code(s): I48.91 - Unspecified atrial fibrillation (5) Cardiac defibrillator in situ Current visit: No Status: Chronic Category: Medical Code(s): Z95.810 - Presence of automatic (implantable) cardiac defibrillator (6) Coronary artery disease Current visit: No Status: Chronic Qualifiers: Coronary Disease-Associated Artery/Lesion type: [place] artery [place] vs. transplanted heart: [place] heart Associated angina: with other forms of angina Qualified Code(s): I25.118 - Atherosclerotic heart disease of [place] coronary artery with other forms of angina pectoris Category: Medical Code(s): I25.10 - Atherosclerotic heart disease of [place] coronary artery without angina pectoris (7) Diabetes mellitus type II, controlled Current visit: No Status: Chronic Qualifiers: Diabetes mellitus software development analyst insulin use: without software development analyst use Diabetes mellitus complication status: without complication Qualified Code(s): E11.9 - Type 2 diabetes mellitus without complications Category: Medical Code(s): E11.9 - Type 2 diabetes mellitus without complications (8) Dyspnea Current visit: No Status: Chronic Qualifiers: Dyspnea type: shortness of breath Qualified Code(s): R06.02 - Shortness of breath; R06.0
[2020-03-28 07:42] VITALS: BP 116/64; PULSE 59; RESP 18; TEMP 36.7; O2SAT 96
[2020-03-28 08:22] VITALS: PULSE 61
[2020-03-28 08:52] LABS: POC Glucose,Bedside 132 (70-110)
--- NOTE | 2020-03-28 09:14 | PC.NURSE ---
Late entry: Pt is A&Ox4 and has ambulated several times independently and tolerated well. Pt denies any pain or N/V. Pt does report to having diarrhea and states this happens everyday d/t her diabetic meds. Pt has diuresed 1,300ml this shift and she still c/o SOB with exertion which happens with ambulating to the toilet at times. +1 non-pitting edema to BLE noted. Lungs CTA, diminished bases. Pt is on room air and sats 93-97%. VSS, call light within reach.
--- NOTE | 2020-03-28 09:24 | PC.NURSE ---
patient is waiting for sister to bring her clean clothes, stated she would let staff know when she was ready to clean up.
--- NOTE | 2020-03-28 09:29 | HMH.PNCARD ---
Subjective Date: 03/28/20 Time: 09:29 Principal diagnosis: CHF Interval history: 64-year-old white female in bed in no acute distress. Patient melissa fully states she lost 5 pounds overnight. Her breathing has improved. She is concerned about the fluid restriction when she goes home. We discussed the need to cut back on the copious amounts of fluid that she drinks which she does so because of her dry mouth from her medications. In reviewing the patient's pacemaker reports over the last several months, she has steadily increased her ventricular pacing to now at 40% in January of this year. This brings concern for possible pacemaker induced cardiomyopathy that contributes to her congestive heart failure. Echocardiogram this admission shows ejection fraction at around 30% which is in the lower range of where she has been in the last couple of years. Patient has a single lead ICD in place. She would be a candidate for an upgrade to a biventricular ICD if she continues to pace at 40% or more. Exam Vital signs and Labs for Last 24 Hours: Temp Pulse Resp BP Pulse Ox 98.1 F 61 18 116/64 96 03/28/20 07:42 03/28/20 08:22 03/28/20 07:42 03/28/20 07:42 03/28/20 07:42 Laboratory Results - last 24 hr 03/27/20 15:30: WBC 7.1, RBC 4.02 L, Hgb 13.4, Hct 40.9, MCV 101.8 H, MCH 33.4 H, MCHC 32.8, RDW 14.7, Plt Count 219, MPV 8.9, Neut % (Auto) 64.2, Lymph % (Auto) 26.1, [place] % (Auto) 6.1, Eos % (Auto) 2.8, Baso % (Auto) 1.0, Neut # (Auto) 4.5, Lymph # (Auto) 1.8, [place] # (Auto) 0.4, Eos # (Auto) 0.2, Baso # (Auto) 0.1 03/27/20 15:30: Sodium 140, Potassium 4.0, Chloride 99, Carbon Dioxide 34 H, Anion Gap 7.0, BUN 20 H, Creatinine 0.90, Estimated Creat Clear 90, Estimated GFR 63, Est GFR ( Amer) 77, Glucose 77, Calcium 9.6, NT-Pro-B Natriuret Pep 625 H 03/27/20 22:37: POC Glucose 105 03/28/20 07:05: POC Glucose 132 H I & O for Last 24 hours: Intake & Output 03/25/20 03/26/20 03/27/20 03/28/20 11:59 11:59 11:59 11:59 Intake Total 740 / 740 Output Total 2850 / 2850 Balance -2109 / -0 Weight 210 lb 2 oz - *Routine HEENT Exam Head: Present: normocephalic Eye: Present: EOMI, PERRL ENT: Present: mucous membranes moist - *Routine Respiratory Exam Present: CTA bilaterally. Absent: accessory muscle use, rales, rhonchi, wheezes - *Routine Cardiovascular Exam Present: RRR. Absent: murmur, gallop, rubs - *Routine Extremities Exam Present: edema. Absent: calf tenderness - *Routine Neurological Exam Present: alert, oriented X3, moving all extremities Progress Note: A&P (1) Combined systolic and diastolic heart failure Status: Acute Current Visit: Yes (2) Edema Status: Acute Current Visit: No (3) Fatigue Status: Acute Current Visit: No (4) Atrial fibrillation Status: Chronic Current Visit: No (5) Cardiac defibrillator in situ Status: Chronic Current Visit: No (6) Coronary artery disease Status: Chronic Current Visit: No (7) Diabetes mellitus type II, controlled Status: Chronic Current Visit: No (8) Dyspnea Status: Chronic Current Visit: No (9) HLD (hyperlipidemia) Status: Chronic Current Visit: No (10) Hypertensive disorder Status: Chronic Current Visit: No (11) Nonischemic cardiomyopathy Status: Chronic Current Visit: No Assessment and Plan for All Diagnoses:: 1. Continue IV diuretics along with fluid restriction. If patient continues to diurese and lose weight then would anticipate discharge tomorrow. 2. We will interrogate the patient's defibrillator today. I did discuss with her that she may be a candidate for upgrade at a later time after her heart failure has improved. She understands and will continue to think about this possible upgrade. 3. Chronic atrial fibrillation, on chronic Xarelto therapy 4. Nonischemic cardiomyopathy with ejection fraction of 30% by echocardiogram this admission. 5. Hypertensive heart dis
[2020-03-28 16:00] VITALS: BP 110/61; PULSE 64; RESP 18; TEMP 36.7; O2SAT 96
--- NOTE | 2020-03-28 17:30 | PC.NURSE ---
pt has done well today. voiced to staff she experienced sob after shower, but it returned to her baseline shortly after resting in the bed. so far pt has a uop of 1600. vss. will cont. to monitor.
[2020-03-28 17:31] LABS: POC Glucose,Bedside 132 (70-110)
--- NOTE | 2020-03-28 19:19 | PC.NURSE ---
REPORT GIVEN TO Giuliana CLARK RN
[2020-03-28 20:00] VITALS: BP 123/53; PULSE 77; RESP 16; TEMP 36.6; O2SAT 92
[2020-03-29 04:00] VITALS: BP 116/64; PULSE 63; RESP 16; TEMP 36.6; O2SAT 94
--- NOTE | 2020-03-29 05:10 | PC.NURSE ---
A&OX4. PT HAS TOLERATED RA WELL THIS SHIFT. PT HAS NO EDEMA PRESENT, AND HAS HAD ADEQUATE OUTPUT. PT HAS HAD NO C/O PAIN, NA, OR VO THIS SHIFT. PT ONLY COMPLAINT IS THAT SHE FELT SLIGHTLY DIZZY AT THE BEGINNING OF SHIFT BUT HAS HAD NO FURTHER COMPLAINTS. PT HAS BEEN SLEEPING T/O MAJORITY OF SHIFT. NO OTHER COMPLAINTS THUS FAR, VSS WILL CONTINUE TO MONITOR.
[2020-03-29 05:18] VITALS: BMI 39.4
[2020-03-29 06:39] LABS: POC Glucose,Bedside 153 (70-110)
[2020-03-29 06:58] LABS: Anion Gap 8.7 mEq/L (5-15); Blood Urea Nitrogen 32 mg/dl (7-17); Calcium 9.8 mg/dl (8.4-10.2); Carbon Dioxide 35 mmol/L (22.0-30.0); Chloride 98 mmol/L (98-107); Creatinine Clearance Estimated 73 mL/min (50-200); Estimated Glomerular Filt Rate 46 ml/min (>60); GFR (African American) 55 ML/MIN (>60); Glucose 147 mg/dl (74-100); Potassium 3.7 mmoL/L (3.5-5.1); Sodium 138 mmol/L (136-145)
[2020-03-29 08:00] VITALS: BP 116/62; PULSE 59; RESP 20; TEMP 36.6; O2SAT 95
--- NOTE | 2020-03-29 08:56 | HMH.ACPN2 ---
Internal Medicine - PN: Subj *Date: 03/29/20 *Time: 08:56 Interval history: Patient reports having a funny feeling but cannot elaborate on what she means. She notes some improvement in shortness of breath as well this sensation of feeling swollen in her hands and face Exam Vital signs and Labs for Last 24 Hours: Temp Pulse Resp BP Pulse Ox 97.8 F 63 16 116/64 94 L 03/29/20 04:00 03/29/20 04:00 03/29/20 04:00 03/29/20 04:00 03/29/20 04:00 Laboratory Results - last 24 hr 03/28/20 17:13: POC Glucose 132 H 03/29/20 06:21: POC Glucose 153 H 03/29/20 06:35: Sodium 138, Potassium 3.7, Chloride 98, Carbon Dioxide 35 H, Anion Gap 8.7, BUN 32 H D, Creatinine 1.20 H D, Estimated Creat Clear 73, Estimated GFR 46 L, Est GFR ( Amer) 55 L D, Glucose 147 H, Calcium 9.8 I & O for Last 24 hours: Intake & Output 03/26/20 03/27/20 03/28/20 03/29/20 11:59 11:59 11:59 11:59 Intake Total 740 / 740 240 / 240 Output Total 3950 / 3950 500 / 500 Balance -3210 / -3210 -260 / -260 Weight 210 lb 2 oz 209 lb Narrative: Patient is in no distress. Facial edema has improved. Patient has improved aeration in the lung bases without rales. Heart has an irregular rate and rhythm. Lower extremities have no pedal edema Assessment and Plan (1) Combined systolic and diastolic heart failure Current visit: Yes Status: Acute Qualifiers: Heart failure chronicity: acute Qualified Code(s): I50.41 - Acute combined systolic (congestive) and diastolic (congestive) heart failure Category: Medical Code(s): I50.40 - Unspecified combined systolic (congestive) and diastolic (congestive) heart failure (2) Edema Current visit: No Status: Acute Qualifiers: Edema type: localized Qualified Code(s): R60.0 - Localized edema Category: Medical Code(s): R60.9 - Edema, unspecified (3) Fatigue Current visit: No Status: Acute Category: Medical Code(s): R53.83 - Other fatigue (4) Atrial fibrillation Current visit: No Status: Chronic Qualifiers: Atrial fibrillation type: longstanding persistent Qualified Code(s): I48.11 - Longstanding persistent atrial fibrillation Category: Medical Code(s): I48.91 - Unspecified atrial fibrillation (5) Cardiac defibrillator in situ Current visit: No Status: Chronic Category: Medical Code(s): Z95.810 - Presence of automatic (implantable) cardiac defibrillator (6) Coronary artery disease Current visit: No Status: Chronic Qualifiers: Coronary Disease-Associated Artery/Lesion type: [place] artery [place] vs. transplanted heart: [place] heart Associated angina: with other forms of angina Qualified Code(s): I25.118 - Atherosclerotic heart disease of [place] coronary artery with other forms of angina pectoris Category: Medical Code(s): I25.10 - Atherosclerotic heart disease of [place] coronary artery without angina pectoris (7) Diabetes mellitus type II, controlled Current visit: No Status: Chronic Qualifiers: Diabetes mellitus senior living insulin use: without senior living use Diabetes mellitus complication status: without complication Qualified Code(s): E11.9 - Type 2 diabetes mellitus without complications Category: Medical Code(s): E11.9 - Type 2 diabetes mellitus without complications (8) Dyspnea Current visit: No Status: Chronic Qualifiers: Dyspnea type: shortness of breath Qualified Code(s): R06.02 - Shortness of breath; R06.00 - Dyspnea, unspecified; R06.01 - Orthopnea Category: Medical Code(s): R06.00 - Dyspnea, unspecified (9) HLD (hyperlipidemia) Current visit: No Status: Chronic Qualifiers: Hyperlipidemia type: mixed hyperlipidemia Qualified Code(s): E78.2 - Mixed hyperlipidemia Category: Medical Code(s): E78.5 - Hyperlipidemia, unspecified (10) Hypertensive disorder Current visit: No Status: Chronic Qualifiers: Hypertension type: essential hypert
--- NOTE | 2020-03-29 09:01 | HMH.DCSUM ---
General - General Admission date:: 03/27/20 HPI HPI: 64-year-old female with history of nonischemic cardiomyopathy, atrial fibrillation presented to the cardiology office today with a 5-day history of shortness of breath that was progressive in nature. Patient reports approximately 5 days ago she is noticed onset of weight gain and estimates she has gained 14 pounds in the last 5 days. She developed progressive dyspnea on exertion. She presented to the cardiology clinic with these symptoms and decision was made to admit her for treatment of acute congestive heart failure. Since admission echocardiogram is been performed which shows ejection fraction of 35 to 40% which is stable compared to an echocardiogram from April 2019. She reports compliance with her medications Hospital Course Hospital Course: Patient was admitted and started on intravenous Lasix twice daily. This produced an excellent diuretic response. Patient lost weight each day and her dyspnea on exertion gradually improved as did facial and extremity edema. Repeat echocardiogram was performed which showed ejection fraction of 30%. Cardiology consulted with the patient and did discuss future upgrade of her defibrillator. This will be addressed at hospital follow-up. On March 29 patient was discharged home. She will follow-up with cardiology office next week. Objective Vital signs: Temp Pulse Resp BP Pulse Ox 97.8 F 63 16 116/64 94 L 03/29/20 04:00 03/29/20 04:00 03/29/20 04:00 03/29/20 04:00 03/29/20 04:00 Results Labs on day of discharge: Labs from last 24 hours 03/29/20 03/29/20 03/28/20 06:35 06:21 17:13 Sodium 138 Potassium 3.7 Chloride 98 Carbon Dioxide 35 H Anion Gap 8.7 BUN 32 H D Creatinine 1.20 H D Estimated Creat Clear 73 Estimated GFR 46 L Est GFR ( Amer) 55 L D Glucose 147 H POC Glucose 153 H 132 H Calcium 9.8 DS: Diagnosis - Discharge Diagnosis (1) Combined systolic and diastolic heart failure Status: Acute (2) Edema Status: Acute (3) Fatigue Status: Acute (4) Atrial fibrillation Status: Chronic (5) Cardiac defibrillator in situ Status: Chronic (6) Coronary artery disease Status: Chronic (7) Diabetes mellitus type II, controlled Status: Chronic (8) Dyspnea Status: Chronic (9) HLD (hyperlipidemia) Status: Chronic (10) Hypertensive disorder Status: Chronic (11) Nonischemic cardiomyopathy Status: Chronic Discharge Plan - Patient Discharge Instructions ACTIVITY: Continue current activity DIET: continue same diet - Follow up Plan Follow up with: Abhijit Armstrong MD [Staff Physician] - Disposition: Home, Self-Correction Medications: Home Medications Medication Instructions Recorded Confirmed Type Atorvastatin Calcium [Atorvastatin 10 mg PO DAILY 12/03/17 03/27/20 History 10mg Tab] Pantoprazole Sodium [Protonix 40mg 40 mg PO BID 12/03/17 03/27/20 History tablet] Tramadol HCl [Ultram 50mg 50 mg PO BID PRN 12/03/17 03/27/20 History tablet] rivaroxaban 20 mg tablet 20 mg PO DAILY #90 tab 08/23/19 03/27/20 Rx furosemide 40 mg tablet 40 mg PO TID tab 11/30/19 03/27/20 History torsemide 100 mg tablet 50 mg PO NEEDED PRN tab 11/30/19 03/27/20 History gabapentin 800 mg tablet 800 mg PO TID 12/21/19 03/27/20 History insulin human U-100 NPH-regulr 80 units SQ DAILY 12/21/19 03/27/20 History 70-30 mix 100 unit/mL subcutaneous susp loratadine 10 mg tablet 10 mg PO DAILY 12/21/19 03/27/20 History omega 7-ftm-rlx-fish oil 300 1 cap PO BID 12/21/19 03/27/20 History mg-1,000 mg capsule,delayed release spironolactone 50 mg tablet 25 mg PO DAILY 12/21/19 03/27/20 History Insulin NPH Hum/Reg Insulin Hm 45 units SQ PM 02/12/20 03/27/20 History [Novolin 70-30 100 Unit/ml Vial] Isosorbide Mononitrate [Imdur 30mg 30 mg PO DAILY 02/12/20 03/27/20 History ER
[2020-03-29 10:03] VITALS: PULSE 59
--- NOTE | 2020-03-29 10:32 | HMH.PNCARD ---
Subjective Date: 03/29/20 Time: 10:15 Principal diagnosis: CHF Interval history: This is a 64-year-old white female who is sitting up in the bed in chair. She is feeling much better. Her shortness of breath has improved. She has diuresed well since being in the hospital and is scheduled to discharge from the hospital today. She denies any chest pain or pressure. Shortness of breath with exertion at times. Her edema has essentially resolved. No fever, chills, nausea, vomiting, diarrhea, PND or orthopnea. The patient is ventricular pacing now at 40%. She does have a cardiomyopathy with an ejection fraction of 30%. This is most likely contributing to her congestive heart failure. On an outpatient basis we will likely upgrade her to a biventricular AICD. This will be set up at her next follow-up visit on an outpatient basis. Exam Vital signs and Labs for Last 24 Hours: Temp Pulse Resp BP Pulse Ox 97.9 F 59 L 20 116/62 95 03/29/20 08:00 03/29/20 10:03 03/29/20 08:00 03/29/20 08:00 03/29/20 08:00 Laboratory Results - last 24 hr 03/28/20 17:13: POC Glucose 132 H 03/29/20 06:21: POC Glucose 153 H 03/29/20 06:35: Sodium 138, Potassium 3.7, Chloride 98, Carbon Dioxide 35 H, Anion Gap 8.7, BUN 32 H D, Creatinine 1.20 H D, Estimated Creat Clear 73, Estimated GFR 46 L, Est GFR ( Amer) 55 L D, Glucose 147 H, Calcium 9.8 I & O for Last 24 hours: Intake & Output 03/26/20 03/27/20 03/28/20 03/29/20 23:59 23:59 23:59 23:59 Intake Total 380 / 380 600 / 600 240 / 240 Output Total 1550 / 1550 2900 / 2900 Balance -1170 / -1170 -2300 / -2300 240 / 240 Weight 215 lb 7 oz 210 lb 2 oz 209 lb - Constitutional no acute distress, obese - *Routine HEENT Exam Head: Present: normocephalic, atraumatic Eye: Present: EOMI, PERRL ENT: Present: mucous membranes moist - *Routine Neck Exam Present: supple, full ROM, normal carotid upstroke. Absent: JVD, carotid bruit, lymphadenopathy - *Routine Respiratory Exam Present: CTA bilaterally - *Routine Cardiovascular Exam Present: Normal S1, Normal S2, irregularly irregular. Absent: murmur - *Routine Abdominal Exam Present: soft, normoactive bowel sounds. Absent: tenderness, distended - *Routine Extremities Exam Present: full ROM, pulses intact, normal capillary refill. Absent: cyanosis, clubbing, edema - *Routine Skin Exam Present: intact, warm. Absent: erythema, rash - *Routine Neurological Exam Present: alert, oriented X3, CN II-XII intact. Absent: sensory deficit, motor deficit Progress Note: A&P (1) Combined systolic and diastolic heart failure Status: Acute Current Visit: Yes (2) Edema Status: Acute Current Visit: No (3) Fatigue Status: Acute Current Visit: No (4) Atrial fibrillation Status: Chronic Current Visit: No (5) Cardiac defibrillator in situ Status: Chronic Current Visit: No (6) Coronary artery disease Status: Chronic Current Visit: No (7) Diabetes mellitus type II, controlled Status: Chronic Current Visit: No (8) Dyspnea Status: Chronic Current Visit: No (9) HLD (hyperlipidemia) Status: Chronic Current Visit: No (10) Hypertensive disorder Status: Chronic Current Visit: No (11) Nonischemic cardiomyopathy Status: Chronic Current Visit: No Assessment and Plan for All Diagnoses:: Plan: 1. Patient was admitted to the hospital for an acute exacerbation of her combined systolic and diastolic congestive heart failure. She has diuresed nicely with IV Lasix. She will go home on Lasix and Aldactone p.o. 2. The patient does have congestive heart failure. She will also go home on Entresto. 3. Her blood pressure is well controlled. 4. Her LDL goal is less than 100. 5. She does have chronic atrial fibrillation. She is rate controlled. She is on Xarelto for anticoagulation. 6. The patient does have nonischemic cardiomyopathy with an ejection fraction of 30%. 7.
== END 2020-03-29 11:07 | disposition home or self-care (01) ==
PROVIDERS: Admitting Provider Family Medicine; PCP Family Medicine; Visit Provider Family Medicine
DX: I50.43 Acute on chronic combined systolic (congestive) and diastolic (congestive) heart failure (principal); I11.0 Hypertensive heart disease with heart failure; I42.8 Other cardiomyopathies; I48.20 Chronic atrial fibrillation, unspecified; Z79.01 Long term (current) use of anticoagulants; I25.10 Atherosclerotic heart disease of native coronary artery without angina pectoris; Z95.810 Presence of automatic (implantable) cardiac defibrillator; Z87.891 Personal history of nicotine dependence; Z79.4 Long term (current) use of insulin; E11.9 Type 2 diabetes mellitus without complications
CPT/HCPCS: G0379; 36415; 80048; 82962; 83880; 85025; 93306; G0378; Q9957

== ENCOUNTER → 2020-04-06 10:24 | Outpatient (CLI) | payer MEDICARE, SELFPAY ==
--- NOTE | 2020-04-06 10:34 | XR_ITS ---
PROCEDURE: XR ANKLE LT MIN 3V CLINICAL INDICATION: LT ANKLE/FOOT PAIN COMPARISON: No exams were available for comparison FINDINGS: There is hypertrophic change along the distal aspect of the medial malleolus. A small calcific density is present at the tip of the lateral malleolus and could be due to a small spur or old avulsion fracture. An 8 mm lucent lesion is present involving the talar dome medially consistent with an osteochondral defect. There is mild spurring of the distal tibia anteriorly and in the mid aspect of the talus anteriorly IMPRESSION: Degenerative changes with osteochondral defect of the medial talus. This may be better evaluated with CT or MRI if clinically desired. Dictated by: Momo Jorgensen MD 04/06/2020 11:26 Electronically signed by Momo Jorgensen MD in [place] 04/06/2020 11:26
--- NOTE | 2020-04-06 10:34 | XR_ITS ---
PROCEDURE: XR FOOT LT MIN 3V CLINICAL INDICATION: Lateral foot pain, injury with pain COMPARISON: XR FOOT RT MIN 3V from 10/19/2019 FINDINGS: No fracture or dislocation. No lytic or blastic change. There is normal mineralization. The joint spaces are well-preserved. No significant degenerative/arthritic changes. No erosive changes evident. Other findings:Mild hypertrophic changes are present involving the anterior aspect of the distal tibia IMPRESSION: No acute findings. Dictated by: Momo Jorgensen MD 04/06/2020 11:21 Electronically signed by Momo Jorgensen MD in [place] 04/06/2020 11:21
== END ==
PROVIDERS: PCP Family Medicine; Visit Provider Family Medicine
DX: M79.672 Pain in left foot (principal); M25.572 Pain in left ankle and joints of left foot
CPT/HCPCS: 73610; 73630

== ENCOUNTER → 2020-04-11 14:30 | Outpatient (CLI) | payer MEDICARE, SELFPAY ==
[2020-04-11 14:35] LABS: MANUAL DIFFERENTIAL MANUAL DIFFERENTIAL (MANUAL DIFF)
[2020-04-11 14:56] LABS: Basophils % 0.3 % (0.1-2.0); Eosinophils # 0.2 K/mm3 (0.0-0.4); Hematocrit 38.8 % (37.0-47.0); Hemoglobin 12.7 g/dL (12.2-16.2); Lymphocytes # 1.9 K/mm3 (0.7-4.5); Lymphocytes % 22.3 % (10-50); Mean Corpuscular HGB Conc 32.7 g/dL (31.8-35.4); Mean Corpuscular Hemoglobin 33.5 pg (27.0-31.2); Mean Corpuscular Volume 102.4 fl (81-99); Mean Platelet Volume 7.6 fl (7.4-10.4); Monocytes # 0.5 K/mm3 (0.1-1.0); Monocytes % 6.1 % (1.7-9.3); Neutrophils # 5.8 K/mm3 (1.8-7.8); Neutrophils % 69.2 % (37.0-80.0); Platelet Count 296 K/mm3 (142-424); Red Blood Count 3.79 M/mm3 (4.20-5.40); Red Cell Distribution Width 15.1 % (11.5-17.5); White Blood Count 8.5 K/mm3 (4.8-10.8)
[2020-04-11 17:06] LABS: Anion Gap 11.5 mEq/L (5-15); Blood Urea Nitrogen 27 mg/dl (7-17); Calcium 9.5 mg/dl (8.4-10.2); Carbon Dioxide 32 mmol/L (22.0-30.0); Chloride 98 mmol/L (98-107); Estimated Glomerular Filt Rate 56 ml/min (>60); GFR (African American) 68 ML/MIN (>60); Glucose 53 mg/dl (74-100); Potassium 3.5 mmoL/L (3.5-5.1); Sodium 138 mmol/L (136-145)
[2020-04-11 17:12] LABS: NT Pro Brain Natriuretic Pep. 708 pg/mL (0-125)
[2020-04-11 18:45] LABS: Anisocytosis 1+; Eosinophils % 1 % (0-3); Lymphocytes % 27 % (10-50); Macrocytosis 1+; Monocytes % 6 % (2-9); Neutrophils % 66 % (42-76); Platelet Estimate Normal; Total Cells Counted 100
== END ==
PROVIDERS: Visit Provider Physician Assistant
DX: R06.02 Shortness of breath; I50.41 Acute combined systolic (congestive) and diastolic (congestive) heart failure; I48.11 Longstanding persistent atrial fibrillation
CPT/HCPCS: 36415; 80048; 83880; 85007; 85014; 85018; 85048; 85049

== ENCOUNTER 2020-05-09 08:43 | Day surgery (SDC) | payer MEDICARE, SELFPAY ==
--- NOTE | 2020-05-09 | IR_ITS ---
APPROVED REPORT Patient Location: Outpatient [employer] Tool Operator: BREANNA Jackson RT (R) PROCEDURES 1. Pocket Revision 2. Placement of right atrial sensing pacing lead into right atrium. 3. Placement of left ventricular sensing pacing lead into the coronary sinus. 4. Permanent cardiac resynchronization therapy with ICD implantation/biventricular pacemaker. INDICATION Systolic Congestive Heart Failure, ejection <35%, Wide QRS >120ms, [place] Heart Assoication Class 3 Congestive Heart Failure Informed consent was obtained prior to the procedure. COMPLICATIONS None Estimated Blood Loss: less than 10 ml TECHNIQUE 1% lidocaine with epinephrine used to anesthetize the left anterior aspect of the chest. Scalpel was used to make the initial cutaneous incision while electrocautery was used to dissect down into the fascia. The generator was removed from the existing pocket. Digital manipulation was required along with intermittent usage of scalpel in order to revise the pocket. The leads were removed from the old generator. Under fluoroscopic guidance the coronary sinus was cannulated and confirmed with an injection of contrast. An 0.014 wire was then placed distally in the inferior posterior segment of the left ventricle via the coronary sinus and the left ventricular lead was advanced. After achieving excellent thresholds and interrogation numbers the sheath was then peeled away and the lead was then secured into place using silk suture. An additional 6 [place] fresh sheath and dilator was placed over the existing wire. Using fluoroscopic guidance, the atrial lead was the placed into the right atrial appendage and screwed and secured in place. Electrical interrogation demonstrated acceptable thresholds and voltage number. The atrial lead was then secured into place using 3-0 silk. Ancef was used to flush the pocket and the 3 leads were attached to the INTERACTIVE MARKETING STRATEGIST-D generator. The generator was then secured into place by heavy silk suture. Monocryl was used to close the subcutaneous layers while nicki were used to close the subcutaneous layers while nicki were used to close the cutaneous layer. A pressure dressing was placed and the patient was transferred to the postop holding area in stable condition for postoperative care. INTERROGATION Generator Model number: Vigilant X4 INTERACTIVE MARKETING STRATEGIST-D IS-1/DF/IS4 G247 Generator Serial number: [id number] Atrial lead model number: [place] MRI IS-1 Bi Positive Fix RA/RV 52 cm 7741 Atrial lead serial number: [id number] R-wave: 4.0 mV Impedence: 700 Ohms Threshold: Afib Chronic Right Ventricular lead model number: [id number]/58 Chronic Right Ventricular lead serial number: [id number] Left Ventricular lead model number: Acuity X4 Spiral S LVA Quad Electrode IS4 Passive 86 cm 4674 Left Ventricular lead serial number: [id number] R-wave: 8.0 mV Impedence: 667 Ohms Threshold: 2.5V@1.0 ms Pacing Parameters: Mode: DDD Base/Max Track: ICD Rate Cutoffs: VT: 170 bpm. 2.5 sec, ATP, 41Jx8 VT-1: 155 mpb 2.5 sec Monitor only VF: 200 bpm 1.0 sec Quick convert, 41 J x 8 No diaphragmatic stimulation at 10 volts. IMPRESSION 1. Successful pocket revision for biventricular pacemaker generator with cardiac resynchronization/defibrillator therapy. 2. Successful placement of right atrial sensing pacing lead into right atrium. 3. Successful placement of left ventricular sensing pacing lead via the coronary sinus. 4. Successful permanent cardiac resynchronization plus AICD generator device. PLAN 1. Post Op Wound Care Electronically signed by : Abhijit Armstrong, 05/10/2020 15:50:31
[2020-05-09 08:53] VITALS: BMI 41.0
[2020-05-09 09:09] VITALS: BP 139/54; PULSE 63; PULSE 65; RESP 18; TEMP 36.6; O2SAT 95
[2020-05-09 09:23] LABS: Basophils % 0.6 % (0.1-2.0); Eosinophils # 0.2 K/mm3 (0.0-0.4); Eosinophils % 2.7 % (0.1-12.0); Hematocrit 40.5 % (37.0-47.0); Hemoglobin 14.1 g/dL (12.2-16.2); Lymphocytes % 28.2 % (10-50); Mean Corpuscular HGB Conc 34.8 g/dL (31.8-35.4); Mean Corpuscular Hemoglobin 35.9 pg (27.0-31.2); Mean Corpuscular Volume 103.2 fl (81-99); Mean Platelet Volume 8.1 fl (7.4-10.4); Monocytes # 0.5 K/mm3 (0.1-1.0); Monocytes % 6.8 % (1.7-9.3); Neutrophils # 4.3 K/mm3 (1.8-7.8); Neutrophils % 61.8 % (37.0-80.0); Platelet Count 190 K/mm3 (142-424); Red Blood Count 3.93 M/mm3 (4.20-5.40); Red Cell Distribution Width 14.9 % (11.5-17.5)
[2020-05-09 09:26] LABS: Chloride 102 mmol/L (98-107); Potassium 4.3 mmoL/L (3.5-5.1); Sodium 138 mmol/L (136-145)
[2020-05-09 09:29] LABS: Anion Gap 11.3 mEq/L (5-15); Blood Urea Nitrogen 32 mg/dl (7-17); Carbon Dioxide 29 mmol/L (22.0-30.0); Creatinine Clearance Estimated 79 mL/min (50-200); Estimated Glomerular Filt Rate 50 ml/min (>60); GFR (African American) 61 ML/MIN (>60)
[2020-05-09 09:30] LABS: Calcium 9.3 mg/dl (8.4-10.2); Glucose 123 mg/dl (74-100)
[2020-05-09 14:05] VITALS: BP 112/50; PULSE 83; RESP 18; O2SAT 95
[2020-05-09 14:10] VITALS: BP 112/50; PULSE 89; RESP 20; O2SAT 95
--- NOTE | 2020-05-09 14:13 | P.PN_ITS ---
[facility] Anesthesia Checklist - Patient Identification Patient Identification: Arm Band, Verbal (Name & ) - Structural Data Admitted From: Home Planned Operative Procedure/s: Biventricular pacemaker insertion Consent for Planned Operative Procedure(s) Verified: Yes Verified Documents: Surgical Consent, History and Physical - NPO Status Verified Time NPO: 00:00 - Chart Verification Results Verified: CBC, BMP, PT, PTT, INR, ECG - Additional verifications Anesthesia Reactions: No - Airway Assessment C-Spine Mobility Assessed: Yes (Full neck ROM, MP 3, TMD 3 FB, pink tongue, thick supple neck) TMJ Mobility Assessed: Yes Dentition: Poor Dentition (missing teeth) - Neurological Assessment Level of Consciousness: Awake, Alert, Appropriate, Follows Commands Hx Seizures: Yes Numbness or tingling in extremities: No - Anesthesia Plan Anesthesia Risk discussed: Yes Anesthesia Plan: Verified ASA Class: IV Anesthesia Type: MAC [facility] History I have reviewed the patient's past medical history: Yes Medical History: Reports:: Arrhythmia, Atrial Fibrillation, Cardiomyopathy, Congestive Heart Failure, Coronary Artery Disease, Diabetes Mellitus Type 2, Gastroesophageal Reflux Disease(GERD), Hyperlipidemia, Hypertension, Internal Pacemaker, Palpitations, Seizures Denies:: Cancer, Diabetes Mellitus Type 1, MRSA *Have you ever received a pneumonia vaccine?: Yes *Have you received a flu vaccine this season?: Yes Other Medical History: Reports: Arthritis Anesthesia experience/problems:: none Laterality Cases: Bilateral: Tonsillectomy Other Surgeries: Yes: Appendectomy, Cardiac Catheterization, Cholecystectomy, Pacemaker, Other (AICD 2018) Amputation: No Fractures: No - *Social History Educational Level: Attended College Alcohol Intake: never Alcohol Intake Frequency:: other Substance Use Type: denies use *Occupational Status:: unemployed Housing: house Household Members: family *Travel in the last 8 weeks: None Family Hx:: Heart Attack, Hyperlipidemia, Hypertension, Kidney Disease
--- NOTE | 2020-05-09 14:13 | XR_ITS ---
PROCEDURE: XR CHEST PORTABLE CLINICAL HISTORY: Confirm pacemaker/AID placement COMPARISON: CTAC CTA-CHEST from 01/24/2016 CXR2V XR chest 2V from 01/23/2018 Chest from 05/12/2019 XR CHEST 2V from 02/12/2020 FINDINGS: There has been insertion a biventricular pacemaker with a right atrial lead from left subclavian approach. No evidence of pneumothorax. There is mild cardiomegaly without failure There is some patchy density in the right upper lobe which could be due to an area of atelectasis or infiltrate. There are low lung volumes. Patient's chin obscures the upper chest No acute bony abnormalities. IMPRESSION: Cardiomegaly with biventricular pacemaker present with patchy atelectasis or infiltrate in the right upper lobe Dictated by: Momo Jorgensen MD 05/09/2020 14:38 Electronically signed by Momo Jorgensen MD in [place] 05/09/2020 14:38
[2020-05-09 14:45] VITALS: BP 117/71; PULSE 78; RESP 20; O2SAT 93
[2020-05-09 15:14] VITALS: BP 113/64; PULSE 70; RESP 20; O2SAT 94
== END 2020-05-09 15:22 | disposition home or self-care (01) ==
LOC: CATHLAB 08:45
PROVIDERS: PCP Family Medicine; Visit Provider Internal Medicine
PROC: 0JH609Z Insertion of Cardiac Resynchronization Defibrillator Pulse Generator into Chest Subcutaneous Tissue and Fascia, Open Approach (ICD-10-PCS; CPT 33249; principal; 2020-05-09 11:30)
DX: I50.43 Acute on chronic combined systolic (congestive) and diastolic (congestive) heart failure; I11.0 Hypertensive heart disease with heart failure; I48.11 Longstanding persistent atrial fibrillation; I42.0 Dilated cardiomyopathy; I25.118 Atherosclerotic heart disease of native coronary artery with other forms of angina pectoris; E78.5 Hyperlipidemia, unspecified; E11.9 Type 2 diabetes mellitus without complications; Z79.4 Long term (current) use of insulin; Z45.02 Encounter for adjustment and management of automatic implantable cardiac defibrillator; Z79.02 Long term (current) use of antithrombotics/antiplatelets
CPT/HCPCS: 33225; 33241; 33249; 71045; 80048; 85025; C1769; C1882; C1898; C1900; J2405; J2704; Q9967

== ENCOUNTER 2020-06-13 03:15 | Inpatient (IN) | payer MEDICARE, SELFPAY ==
[2020-06-13] VITALS (14 sets, daily range): BP systolic 93–128; BP diastolic 45–76; PULSE 77–105; RESP 16–22; TEMP 36.6–38.4; O2SAT 90–99; BMI 44.4; BMI 34.9
--- NOTE | 2020-06-13 03:23 | ECG_ITS ---
APPROVED REPORT Exam: Resting ECG HR:107 bpm ECG Measurements Heart Rate 107 AXES QRSd 98 QRS 62 QT 304 T 226 QTc 405 <Conclusion> Atrial fibrillation with rapid ventricular response with premature ventricular or aberrantly conducted complexes Low voltage QRS Inferior infarct, age undetermined Cannot rule out Anterior infarct, age undetermined Abnormal ECG Electronically signed by : Rad Branch, 06/17/2020 08:13:28
--- NOTE | 2020-06-13 03:46 | CT_ITS ---
PROCEDURE: CT ABDOMEN PELVIS WO CON CLINICAL INDICATION: altered mental status Abdominal pain, lower abdominal pain, urinary tract infection COMPARISON: ABDPELW CT ABD PELVIS W/ CONTRAST from 04/22/2017 TECHNIQUE: Axial images obtained with sagittal and coronal reformats. All CT scans at the facility use one or more dose reduction, viz: automated exposure control, ma/kV adjustment per patient size (including targeted exams where dose is matched to indication, i.e. head), or iterative reconstruction technique. FINDINGS: LOWER THORAX: Artifact is present from cardiac pacemaker device. There are atelectatic changes in the lung bases. ABDOMEN & PELVIS: Changes in the bases the liver, spleen, adrenal glands, and pancreas have an unremarkable unenhanced appearance. Prior cholecystectomy. Prior appendectomy no renal or ureteral calculi are evident. There is mild stranding of the perinephric renal fat on both sides greater on the right compared to the left and increased on the right compared to 04/22/2017. No obstructing ureteral calculi. There is some stranding of the fat in the right lateral conal fascia. No evidence of appendicitis or diverticulitis. There are scattered colonic diverticula. There is a Alonso catheter present. No acute bony anomalies. IMPRESSION: 1. There is asymmetric stranding of the perinephric renal fat on the right also involving the pericolic gutter and right lateral conal fascia region. Etiology is indeterminate. No evidence of appendicitis. Pyelonephritis could cause this finding. Please correlate with urinary on urinalysis. Dictated by: Momo Jorgensen MD 06/13/2020 08:06 Electronically signed by Momo Jorgensen MD in [place] 06/13/2020 08:06
--- NOTE | 2020-06-13 03:46 | CT_ITS ---
PROCEDURE: CT HEAD/BRAIN WO CON CLINICAL INDICATION: altered mental status Altered mental status, altered level of consciousness, confusion, disorientation COMPARISON: CT HEAD/BRAIN WO CON from 02/12/2020 TECHNIQUE: Axial images obtained. All CT scans at the facility use one or more dose reduction, viz: automated exposure control, ma/kV adjustment per patient size (including targeted exams where dose is matched to indication, i.e. head), or iterative reconstruction technique. FINDINGS: No midline shift, mass effect, intracranial hemorrhage, hydrocephalus, or extra-axial fluid collection is evident. The calvarium has an unremarkable appearance. No mastoid effusion. Mild mucosal thickening ethmoid sinuses. No sinus air-fluid level. There is mucosal thickening involving the nasopharynx to the left of midline. CT neck may provide further evaluation. IMPRESSION: 1. No acute intracranial finding. 2. Partially visualized soft tissue thickening in the nasopharynx the left of midline. CT neck with contrast may provide further evaluation Dictated by: Momo Jorgensen MD 06/13/2020 07:49 Electronically signed by Momo Jorgensen MD in [place] 06/13/2020 07:49
[2020-06-13 03:53] LABS: Microscopic, Urine URINE MICROSCOPIC (MICROSCOPIC)
--- NOTE | 2020-06-13 03:54 | PC.NURSE ---
notified rad of xrays. waiting on labs at this time.
[2020-06-13 04:02] LABS: Basophils % 0.3 % (0.1-2.0); Eosinophils % 0.2 % (0.1-12.0); Hematocrit 35.4 % (37.0-47.0); Hemoglobin 11.9 g/dL (12.2-16.2); Lymphocytes # 1.3 K/mm3 (0.7-4.5); Lymphocytes % 10.3 % (10-50); Mean Corpuscular HGB Conc 33.5 g/dL (31.8-35.4); Mean Corpuscular Hemoglobin 35.3 pg (27.0-31.2); Mean Corpuscular Volume 105.3 fl (81-99); Mean Platelet Volume 8.9 fl (7.4-10.4); Monocytes # 0.5 K/mm3 (0.1-1.0); Monocytes % 4.3 % (1.7-9.3); Neutrophils # 10.5 K/mm3 (1.8-7.8); Platelet Count 141 K/mm3 (142-424); Red Blood Count 3.36 M/mm3 (4.20-5.40); Red Cell Distribution Width 14.8 % (11.5-17.5); White Blood Count 12.3 K/mm3 (4.8-10.8)
[2020-06-13 04:04] LABS: Appearance,Urine CLEAR (Clear); Blood, Urine 2+ (Negative); Color,Urine YELLOW (Yellow); Glucose,Urine (UA) Negative (Negative); Ketones,Urine Negative (Negative); Leukocyte Esterase,Urine 2+ (Negative); Nitrate,Urine Negative (Negative); Protein,Urine 2+ (Negative)
[2020-06-13 04:05] LABS: Alanine Aminotransferase 29 U/L (12-78); Albumin Level 3.6 g/dl (3.5-5.0); Alkaline Phosphatase 129 U/L (38-126); Anion Gap 12.2 mEq/L (5-15); Aspartate Amino Transferase 61 U/L (14-36); Bilirubin,Total 1.6 mg/dl (0.2-1.3); Blood Urea Nitrogen 57 mg/dl (7-17); Calcium 8.7 mg/dl (8.4-10.2); Carbon Dioxide 28 mmol/L (22.0-30.0); Chloride 97 mmol/L (98-107); Creatinine Clearance Estimated 21 mL/min (50-200); Estimated Glomerular Filt Rate 19 ml/min (>60); GFR (African American) 22 ML/MIN (>60); Globulin 3.5 g/dL (1.3-3.2); Glucose 190 mg/dl (74-100); Potassium 4.2 mmoL/L (3.5-5.1); Sodium 133 mmol/L (136-145); Total Protein,Serum 7.1 g/dl (6.3-8.2)
[2020-06-13 04:14] LABS: Barbiturates Screen,Urine Positive ng/ml (<200)
[2020-06-13 04:15] LABS: Benzodiazepines Screen,Urine Negative ng/ml (<200)
[2020-06-13 04:16] LABS: Amphetamine/Metha Screen,Urine Negative ng/ml (<1000); Cocaine Screen,Urine Negative ng/ml (<300)
[2020-06-13 04:17] LABS: Acetaminophen < 10 ug/ml (10-30); Bilirubin,Urine Negative (Negative); Cannabinoid Screen,Urine Negative ng/ml (<50); MANUAL DIFFERENTIAL MANUAL DIFFERENTIAL (MANUAL DIFF); Methadone Screen,Urine Negative ng/ml (<300); Salicylate < 1.0 mg/dL (2.0-20.0)
[2020-06-13 04:18] LABS: Opiate Screen,Urine Negative ng/ml (<300)
[2020-06-13 04:19] LABS: Phencyclidine Screen,Urine Negative ng/ml (<25)
[2020-06-13 04:20] LABS: Bacteria,Urine 2+ /lpf; Troponin I < 0.01 ng/ml (0.00-0.034)
[2020-06-13 04:24] LABS: Coronavirus 19 IgG Antibody Negative (Negative); Coronavirus 19 IgM Antibody Negative (Negative)
[2020-06-13 04:35] LABS: Anisocytosis 1+; Lymphocytes % 12 % (10-50); Macrocytosis 1+; Monocytes % 5 % (2-9); Neutrophils % 83 % (42-76); Total Cells Counted 100
[2020-06-13 04:36] LABS: Platelet Estimate Slight Decrease
[2020-06-13 04:49] LABS: Lactic Acid 1.5 mmol/L (0.7-2.1)
--- NOTE | 2020-06-13 04:59 | PC.NURSE ---
return from radiology at this time.
--- NOTE | 2020-06-13 05:34 | HMH.EDAMS ---
ED Disposition Clinical Impression: Acute delirium, Severe sepsis with acute organ dysfunction, DEBORAH (acute kidney injury), Epiploic appendagitis, Morbid obesity with body mass index (BMI) of 40.0 to 44.9 in adult, Cardiac defibrillator in situ, Presence of cardiac resynchronization therapy defibrillator (FULLER BRUSH MAN-D) UTI (urinary tract infection) Qualifiers: Urinary tract infection type: site unspecified Hematuria presence: without hematuria Qualified Code(s): N39.0 - Urinary tract infection, site not specified Disposition: Admitted As Inpatient Condition on Discharge: Serious Instructions: DI for Altered Mental Status Referrals: Rad Galvan MD [Primary Care Provider] - - Critical Care Critical Care Time: No Attestation: On 06/13/20, the high probability of a clinically significant, sudden or life threatening deterioration of the following system(s) required my full and direct attention, intervention and personal management. The time I documented below is in addition to time spent performing reported procedures but includes the following listed in this critical care notation. Medical Decision Making - Medical Records Medical records reviewed: Yes: I reviewed the patient's medical records. - Neil Inquiry Pt receiving controlled substance: No Vital Signs: 06/13/20 03:33 06/13/20 04:00 06/13/20 04:59 Temperature 101.1 F H Temperature Source Rectal Pulse Rate [Right Brachial] 95 H 105 H 90 Respiratory Rate 16 18 16 Blood Pressure [Right Arm] 110/73 128/62 116/62 Blood Pressure Mean [Right Arm] 85 84 80 Blood Pressure Source [Right Arm] Automatic Cuff Blood Pressure Position [Right Arm] Sitting 02 Sat by Pulse Oximetry 96 95 96 Oxygen Delivery Method Room Air Room Air Room Air - Lab Data Lab results reviewed: Yes: I reviewed the patient's lab results. Lab Results 06/13/20 03:34: Urine Color Yellow, Urine Appearance Clear, Urine pH 6.0, Ur Specific [place] 1.020, Urine Protein 2+, Urine Glucose (UA) Negative, Urine Ketones Negative, Urine Blood 2+, Urine Nitrate Negative, Urine Bilirubin Negative, Urine Urobilinogen 2.0, Ur Leukocyte Esterase 2+ A, Urine WBC 10-20, Ur Squamous Epith Cells 3-5, Urine Bacteria 2+ 06/13/20 03:34: WBC 12.3 H, RBC 3.36 L, Hgb 11.9 L, Hct 35.4 L, MCV 105.3 H, MCH 35.3 H, MCHC 33.5, RDW 14.8, Plt Count 141 L, MPV 8.9, Neut % (Auto) 85.0 H, Lymph % (Auto) 10.3, [place] % (Auto) 4.3, Eos % (Auto) 0.2, Baso % (Auto) 0.3, Neut # (Auto) 10.5 H, Lymph # (Auto) 1.3, [place] # (Auto) 0.5, Eos # (Auto) 0.0, Baso # (Auto) 0.0, Total Counted 100, Neutrophils % (Manual) 83 H, Lymphocytes % (Manual) 12, Monocytes % (Manual) 5, Platelet Estimate Slight decrease, Anisocytosis 1+, Macrocytosis 1+ 06/13/20 03:34: Sodium 133 L, Potassium 4.2, Chloride 97 L, Carbon Dioxide 28, Anion Gap 12.2, BUN 57 H, Creatinine 2.60 H, Estimated Creat Clear 21, Estimated GFR 19 L*, Est GFR ( Amer) 22 L, Glucose 190 H, Calcium 8.7, Total Bilirubin 1.6 H, AST 61 H, ALT 29, Alkaline Phosphatase 129 H, Troponin I < 0.01, Total Protein 7.1, Albumin 3.6, Globulin 3.5 H, Albumin/Globulin Ratio 1.0 L, Salicylates < 1.0 L, Acetaminophen < 10 L, Phenobarbital 16.3 06/13/20 03:34: Urine Opiates Screen Negative, Urine Methadone Screen Negative, Ur Barbituates Screen Positive H, Ur Phencyclidine Scrn Negative, Ur Amphetamines Screen Negative, U Benzodiazepines Scrn Negative, Urine Cocaine Screen Negative, U Marijuana (THC) Screen Negative 06/13/20 03:34: SARS-CoV-2 IgG Ab (Rapid) Negative, SARS-CoV-2 IgM Ab (Rapid) Negative 06/13/20 03:34: Digoxin 0.50 06/13/20 03:40: Lactate 1.5 Result diagrams: 06/13/20 03:34 06/13/20 03:34 Orders (Tests/Meds): ED MEDICATIONS Generic Name Dose Route Start Last Admin Trade Name Freq PRN Reason Stop Dose Admin Ertapenem 1 gm/ Sodium 50 mls @ 100 mls/hr 06/13/20 05:30 06/13/20 05:32 Chloride IV 06/27/20 05:29 100 mls/hr Q24H GAIL Administration Protocol Sodium Chloride
--- NOTE | 2020-06-13 06:04 | PC.NURSE ---
She does not know her medications. Her sister is present and states she will bring the medications in later.
--- NOTE | 2020-06-13 06:17 | PC.NURSE ---
patient up to floor via stretcher.
[2020-06-13 06:39] LABS: POC Glucose,Bedside 198 (70-110)
--- NOTE | 2020-06-13 07:06 | HMH.PHAVTE ---
[facility] Pharmacy VTE Monitoring - Patient Demographics Admission date: 06/13/20 Report Date: 06/13/20 Time: 07:07 Allergies/Adverse Reactions: Patient Allergies metoclopramide [From REGLAN] Allergy (Mild, Verified 06/13/20 06:11) SHAKRISTYN Height: 1.68 m Weight: 98.656 kg Patient Problems: Current Active Problems (Last Updated 05/16/20 @ 15:38 by Shelly Cunningham RN) Acute delirium (Acute) Severe sepsis with acute organ dysfunction (Acute) DEBORAH (acute kidney injury) (Acute) Epiploic appendagitis (Acute) Presence of cardiac resynchronization therapy defibrillator (GROCERY DEPARTMENT MANAGER-D) (Acute) Morbid obesity with body mass index (BMI) of 40.0 to 44.9 in adult (Acute) UTI (urinary tract infection) (Acute) Cardiac defibrillator in situ (Chronic) - VTE Risk Labs: VTE Related Lab Results Hgb 11.9 g/dL (12.2-16.2) L 06/13/20 03:34 Hct 35.4 % (37.0-47.0) L 06/13/20 03:34 Plt Count 141 K/mm3 (142-424) L 06/13/20 03:34 BUN 57 mg/dl (7-17) H 06/13/20 03:34 Creatinine 2.60 mg/dl (0.52-1.04) H 06/13/20 03:34 Estimated Creat Clear 21 mL/min (50-200) 06/13/20 03:34 VTE Score: 3 Clinical Trial Participant: No - Prophylaxis VTE Prophylaxis Ordered?: Yes Types of VTE Prophylaxis: TEDS Knee High
--- NOTE | 2020-06-13 07:33 | XR_ITS ---
PROCEDURE: XR CHEST 2V CLINICAL HISTORY: fever, cough COMPARISON: CTAC CTA-CHEST from 01/24/2016 XR CHEST 2V from 02/12/2020 XR CHEST PORTABLE from 05/09/2020 XR CHEST PORTABLE from 06/13/2020 FINDINGS: Mild cardiomegaly without failure. Biventricular pacemaker with right atrial lead noted. The lungs are clear without infiltrates, suspicious nodules, or pleural effusions. No acute bony abnormalities. IMPRESSION: No change with no acute finding. Cardiomegaly with pacemaker present Dictated by: Momo Jorgensen MD 06/13/2020 09:15 Electronically signed by Momo Jorgensen MD in [place] 06/13/2020 09:15
--- NOTE | 2020-06-13 07:33 | HMH.HP ---
*Admission Date: 06/13/20 *Chief complaint: Weakness *History of present illness: 65-year-old female with atrial fibrillation, diabetes mellitus, cardiomyopathy presented to the emergency department with progressive weakness over the last 3 days. Patient states symptoms started 3 days ago when she could not open her eyes she felt so weak. She has been minimally active and spent a lot of time in bed over the last 3 days. She has been so weak she stumbles when she tries to ambulate and has fallen without injury. She was unaware of any fevers but had a documented temperature of 101 on arrival to the emergency department. Patient has dyspnea at baseline that was not worse. She did report some mild cough that usually seemed associated with retching. Cough was primarily nonproductive. Patient had vomiting and abdominal pain without diarrhea. She also reported some right sided flank pain. Her urine has been dark yellow but she denies dysuria or urinary frequency. Patient has no history of kidney stones [facility] History I have reviewed the patient's past medical history: Yes Medical History: Reports:: Arrhythmia, Atrial Fibrillation, Cardiomyopathy, Congestive Heart Failure, Coronary Artery Disease, Diabetes Mellitus Type 2, Gastroesophageal Reflux Disease(GERD), Hyperlipidemia, Hypertension, Internal Pacemaker, Palpitations, Seizures Denies:: Cancer, Diabetes Mellitus Type 1, MRSA *Have you ever received a pneumonia vaccine?: No *Have you received a flu vaccine this season?: No Other Medical History: Reports: Arthritis Laterality Cases: Bilateral: Tonsillectomy Other Surgeries: Yes: Appendectomy, Cardiac Catheterization, Cholecystectomy, Pacemaker, Other (Defibrillator, tonsillectomy.) Amputation: No Fractures: No - *Social History Last grade of school completed: High school graduate Smoking Status: Never smoker Tobacco Type: cigarettes # Packs/Day (cigarettes): 1 Alcohol Intake: never Alcohol Intake Frequency:: other Substance Use Type: denies use *Occupational Status:: retired Housing: house Household Members: family *Travel in the last 8 weeks: None Family Hx:: Heart Attack, Hyperlipidemia Review of Systems - Constitutional Reports anorexia, Reports body ache(s), Reports chills, Reports daytime sleepiness, Reports fatigue, Reports fever(s), Reports lack of energy, Reports malaise, Denies excessive sweating, Denies headache(s) - *Cardiovascular Denies chest pain at rest - *Respiratory Reports cough, Reports shortness of breath - *Gastrointestinal Reports abdominal pain - *Neurologic Reports weakness, Denies seizure-like activity, Denies localized weakness, Denies seizure-like activity Meds Home Medications Medication Instructions Recorded Confirmed Type Atorvastatin Calcium [Lipitor 10mg 10 mg PO DAILY 12/03/17 06/13/20 History Tab] Pantoprazole Sodium [Protonix 40mg 40 mg PO BID 12/03/17 06/13/20 History tablet] Tramadol HCl [Ultram 50mg 50 mg PO BID PRN 12/03/17 06/13/20 History tablet] rivaroxaban 20 mg tablet 20 mg PO DAILY #90 tab 08/23/19 06/13/20 Rx furosemide 40 mg tablet 40 mg PO TID tab 11/30/19 06/13/20 History gabapentin 800 mg tablet 800 mg PO TID 12/21/19 06/13/20 History insulin human U-100 NPH-regulr 80 units SQ DAILY 12/21/19 06/13/20 History 70-30 mix 100 unit/mL subcutaneous susp loratadine 10 mg tablet 10 mg PO DAILY 12/21/19 06/13/20 History omega 6-njh-duu-fish oil 300 1 cap PO BID 12/21/19 06/13/20 History mg-1,000 mg capsule,delayed release spironolactone 50 mg tablet 25 mg PO DAILY 12/21/19 06/13/20 History Insulin NPH Hum/Reg Insulin Hm 45 units SQ PM 02/12/20 06/13/20 History [Novolin 70-30 100 Unit/ml Vial] Isosorbide Mononitrate [Imdur 30mg 30 mg PO DAILY 02/12/20 06/13/20 History ER tablet] Multivit,Tx with Iron,Minerals 1 each PO DAILY 02/12/20 06/13/20 History [Complete Multivitamin] PHENobarbitaL [PHENobarbital 3 tab PO PM 02/12/20 06/13/20 H
--- NOTE | 2020-06-13 09:57 | HMH.PHAINT ---
MEDICATION RECONCILIATION COMPLETED USING EXTERNAL FILL HISTORY.
[2020-06-13 11:43] LABS: POC Glucose,Bedside 173 (70-110)
--- NOTE | 2020-06-13 15:09 | PC.NURSE ---
spoke with Monica @ Dr. Galvan' office to advance diet to diabetic diet. Per Monica, Dr. Galvan agrees. Order put in per Dr. Galvan.
[2020-06-13 17:52] LABS: POC Glucose,Bedside 211 (70-110)
--- NOTE | 2020-06-13 17:55 | PC.NURSE ---
Pt stable this shift. No issues noted. Has a bonner cath. Will get OOB to bathroom for BM. Tolerates a diabetic diet. Afebrile. Has been A&O.
[2020-06-13 20:57] LABS: POC Glucose,Bedside 191 (70-110)
[2020-06-14] VITALS (9 sets, daily range): BP systolic 116–172; BP diastolic 53–93; PULSE 69–115; RESP 17–20; TEMP 36.7–37.3; O2SAT 94–99; BMI 35.6
[2020-06-14 06:10] LABS: POC Glucose,Bedside 144 (70-110)
[2020-06-14 07:05] LABS: POC Glucose,Bedside 168 (70-110)
[2020-06-14 07:06] LABS: Basophils % 0.1 % (0.1-2.0); Eosinophils % 0.5 % (0.1-12.0); Hematocrit 33.1 % (37.0-47.0); Hemoglobin 11.2 g/dL (12.2-16.2); Lymphocytes # 0.8 K/mm3 (0.7-4.5); Lymphocytes % 10.1 % (10-50); Mean Corpuscular HGB Conc 33.8 g/dL (31.8-35.4); Mean Corpuscular Hemoglobin 35.9 pg (27.0-31.2); Mean Corpuscular Volume 106.2 fl (81-99); Mean Platelet Volume 8.8 fl (7.4-10.4); Monocytes # 0.4 K/mm3 (0.1-1.0); Monocytes % 4.5 % (1.7-9.3); Neutrophils # 6.8 K/mm3 (1.8-7.8); Neutrophils % 84.8 % (37.0-80.0); Platelet Count 121 K/mm3 (142-424); Red Blood Count 3.11 M/mm3 (4.20-5.40); Red Cell Distribution Width 14.6 % (11.5-17.5)
--- NOTE | 2020-06-14 08:08 | HMH.ACPN2 ---
Internal Medicine - PN: Subj *Date: 06/14/20 *Time: 08:08 Interval history: Patient has no new complaints this morning and admits she feels better. Her sister is at bedside and reports the patient seems confused. Patient is in much better spirits at least during our interview. She is frustrated by the inability to be discharged. Exam Vital signs and Labs for Last 24 Hours: Temp Pulse Resp BP Pulse Ox 98.2 F 82 20 131/64 97 06/14/20 04:00 06/14/20 04:00 06/14/20 04:00 06/14/20 04:00 06/14/20 04:00 Laboratory Results - last 24 hr 06/13/20 03:34: Urine Color Yellow, Urine Appearance Clear, Urine pH 6.0, Ur Specific [place] 1.020, Urine Protein 2+, Urine Glucose (UA) Negative, Urine Ketones Negative, Urine Blood 2+, Urine Nitrate Negative, Urine Bilirubin Negative, Urine Urobilinogen 2.0, Ur Leukocyte Esterase 2+ A, Urine WBC 10-20, Ur Squamous Epith Cells 3-5, Urine Bacteria 2+ 06/13/20 03:49: POC Glucose 168 H 06/13/20 11:20: POC Glucose 173 H 06/13/20 17:02: POC Glucose 211 H 06/13/20 20:49: POC Glucose 191 H 06/14/20 06:03: POC Glucose 144 H 06/14/20 06:40: WBC 8.0 D, RBC 3.11 L, Hgb 11.2 L, Hct 33.1 L, MCV 106.2 H, MCH 35.9 H, MCHC 33.8, RDW 14.6, Plt Count 121 L, MPV 8.8, Neut % (Auto) 84.8 H, Lymph % (Auto) 10.1, [place] % (Auto) 4.5, Eos % (Auto) 0.5, Baso % (Auto) 0.1, Neut # (Auto) 6.8, Lymph # (Auto) 0.8, [place] # (Auto) 0.4, Eos # (Auto) 0.0, Baso # (Auto) 0.0 I & O for Last 24 hours: Intake & Output 06/11/20 06/12/20 06/13/20 06/14/20 11:59 11:59 11:59 11:59 Intake Total 3100 / 3100 1631 / 1631 Output Total 250 / 250 2350 / 2350 Balance 2850 / 2850 -719 / -719 Weight 217 lb 8 oz 221 lb 9 oz Microbiology Reports for the Last 24 Hours: Microbiology 06/13/20 03:40 Blood Blood Culture - Preliminary Gram Negative Rods 06/13/20 03:34 Urine,Catheterized Urine Culture - Preliminary Gram Negative Rods Gram Negative Rods#2 Narrative: Patient looks well. Lungs are clear. Heart has a regular rate and rhythm. Abdomen is soft and there is no right-sided tenderness this morning. Urine culture is growing a gram-negative bradley 1 blood cultures growing gram-negative bradley Assessment and Plan (1) Pyelonephritis of right kidney Current visit: Yes Status: Suspected Category: Medical Code(s): N12 - Tubulo-interstitial nephritis, not specified as acute or chronic (2) Cough Current visit: Yes Status: Acute Category: Medical Code(s): R05 - Cough (3) Epiploic appendagitis Current visit: Yes Status: Acute Category: Medical Code(s): K63.89 - Other specified diseases of intestine (4) Morbid obesity with body mass index (BMI) of 40.0 to 44.9 in adult Current visit: Yes Status: Acute Category: Medical Code(s): E66.01 - Morbid (severe) obesity due to excess calories; Z68.41 - Body mass index (BMI) 40.0-44.9, adult (5) Altered mental state Current visit: No Status: Resolved Qualifiers: Altered mental status type: unspecified Qualified Code(s): R41.82 - Altered mental status, unspecified Category: Medical Code(s): R41.82 - Altered mental status, unspecified (6) Atrial fibrillation Current visit: No Status: Chronic Qualifiers: Atrial fibrillation type: longstanding persistent Qualified Code(s): I48.11 - Longstanding persistent atrial fibrillation Category: Medical Code(s): I48.91 - Unspecified atrial fibrillation (7) Sepsis Current visit: Yes Status: Resolved Category: Medical Code(s): A41.9 - Sepsis, unspecified organism - Assessment and plan all Dx Assessment and Plan for all problems:: 1. Continue IV Rocephin. Patient's white count is come down 2. DC IV fluids to avoid fluid overload with her history of cardiomyopathy 3. Increase ambulation 4. DC Alonso catheter
[2020-06-14 08:23] LABS: Chloride 104 mmol/L (98-107); Potassium 4.1 mmoL/L (3.5-5.1); Sodium 139 mmol/L (136-145)
[2020-06-14 08:26] LABS: Anion Gap 14.1 mEq/L (5-15); Blood Urea Nitrogen 36 mg/dl (7-17); Carbon Dioxide 25 mmol/L (22.0-30.0); Creatinine Clearance Estimated 76 mL/min (50-200); Estimated Glomerular Filt Rate 45 ml/min (>60); GFR (African American) 55 ML/MIN (>60)
[2020-06-14 08:27] LABS: Calcium 8.4 mg/dl (8.4-10.2); Glucose 160 mg/dl (74-100)
[2020-06-14 11:21] LABS: POC Glucose,Bedside 167 (70-110)
[2020-06-14 15:52] LABS: POC Glucose,Bedside 239 (70-110)
--- NOTE | 2020-06-14 18:45 | PC.NURSE ---
NO ACUTE CHANGES THIS SHIFT. CASTELLANOS CATHETER REMOVED AND PT ABLE TO URINATE WITHOUT PROBLEM. PT DENIES PAIN. NO COMPLAINTS VOICED. IV IS SECURE, PATENT, AND SL. NO DISTRESS NOTED. VSS. SAFETY MEASURES IN PLACE, WILL CONTINUE TO MONITOR
--- NOTE | 2020-06-14 19:09 | PC.NURSE ---
report given to duglas
[2020-06-14 22:25] LABS: POC Glucose,Bedside 180 (70-110)
[2020-06-15] VITALS: PULSE 80
[2020-06-15 04:00] VITALS: BP 129/72; PULSE 80; PULSE 81; RESP 16; TEMP 37.3; O2SAT 97
[2020-06-15 05:00] VITALS: BMI 35.4
--- NOTE | 2020-06-15 05:02 | PC.NURSE ---
SEIZURE PADS ATTEMPTED TO BE PLACED ON BED THIS SHIFT. PT REFUSED, STATING SAID IT WAS OKAY FOR THEM NOT TO BE ON MY BED .
--- NOTE | 2020-06-15 05:04 | PC.NURSE ---
A&O X4. PT RESTED WELL WITH EYES CLOSED THIS SHIFT. NO ACUTE CHANGES NOTED FROM PREVIOUS SHIFT. BILATERAL LUNGS NOTED CLEAR T/O UPON AUSCULTATION. TOLERATED RA WELL WITH NO C/O SOA. NO EDEMA NOTED THIS SHIFT. STUDENT FINANCE SPECIALIST NOTED WITH PACED RHYTHM. TEDS ON BLE. AMB WELL WITH STANDBY ASSIST X1. VSS. REMAINS SAFE. SISTER AT BEDSIDE T/O SHIFT. CALL LIGHT WITHIN REACH. WILL CONTINUE TO MONITOR.
[2020-06-15 06:23] LABS: POC Glucose,Bedside 157 (70-110)
[2020-06-15 07:09] LABS: Basophils % 0.1 % (0.1-2.0); Eosinophils # 0.1 K/mm3 (0.0-0.4); Eosinophils % 0.9 % (0.1-12.0); Hematocrit 30.6 % (37.0-47.0); Hemoglobin 10.4 g/dL (12.2-16.2); Lymphocytes # 0.7 K/mm3 (0.7-4.5); Lymphocytes % 11.9 % (10-50); Mean Corpuscular HGB Conc 34.1 g/dL (31.8-35.4); Mean Corpuscular Hemoglobin 35.6 pg (27.0-31.2); Mean Corpuscular Volume 104.1 fl (81-99); Mean Platelet Volume 8.7 fl (7.4-10.4); Monocytes # 0.3 K/mm3 (0.1-1.0); Monocytes % 5.7 % (1.7-9.3); Neutrophils # 4.7 K/mm3 (1.8-7.8); Neutrophils % 81.3 % (37.0-80.0); Platelet Count 124 K/mm3 (142-424); Red Blood Count 2.94 M/mm3 (4.20-5.40); Red Cell Distribution Width 14.6 % (11.5-17.5); White Blood Count 5.8 K/mm3 (4.8-10.8)
[2020-06-15 07:15] LABS: Chloride 104 mmol/L (98-107)
[2020-06-15 07:16] LABS: Potassium 3.3 mmoL/L (3.5-5.1); Sodium 138 mmol/L (136-145)
[2020-06-15 07:19] LABS: Anion Gap 12.3 mEq/L (5-15); Blood Urea Nitrogen 25 mg/dl (7-17); Calcium 8.7 mg/dl (8.4-10.2); Carbon Dioxide 25 mmol/L (22.0-30.0); Creatinine Clearance Estimated 91 mL/min (50-200); Estimated Glomerular Filt Rate 56 ml/min (>60); GFR (African American) 68 ML/MIN (>60); Glucose 172 mg/dl (74-100)
--- NOTE | 2020-06-15 07:22 | HMH.DCSUM ---
General - General Admission date:: 06/13/20 Discharge date: 06/15/20 HPI HPI: 65-year-old female with atrial fibrillation, diabetes mellitus, cardiomyopathy presented to the emergency department with progressive weakness over the last 3 days. Patient states symptoms started 3 days ago when she could not open her eyes she felt so weak. She has been minimally active and spent a lot of time in bed over the last 3 days. She has been so weak she stumbles when she tries to ambulate and has fallen without injury. She was unaware of any fevers but had a documented temperature of 101 on arrival to the emergency department. Patient has dyspnea at baseline that was not worse. She did report some mild cough that usually seemed associated with retching. Cough was primarily nonproductive. Patient had vomiting and abdominal pain without diarrhea. She also reported some right sided flank pain. Her urine has been dark yellow but she denies dysuria or urinary frequency. Patient has no history of kidney stones Hospital Course Hospital Course: Patient was admitted with diagnosis of pyelonephritis, acute kidney injury, suspected sepsis. Patient was started on Invanz 1 g IV daily for the pyelonephritis. White count and flank pain improved daily during hospitalization. Ultimately urine culture grew E. coli sensitive to Rocephin. Patient will continue IV Rocephin as an outpatient, 1 g daily, through June 19. Patient was febrile with mental status changes on presentation and biomarkers for sepsis were positive. Patient's blood cultures ultimately grew E. coli and Enterobacter cloaca. Both organisms were sensitive to Rocephin and she will continue as directed above. Patient has a history of combined systolic and diastolic heart failure. Patient was given large volume fluids initially on presentation due to her sepsis. This did not trigger any symptomatic congestive heart failure. Patient had acute kidney injury on presentation from her sepsis. This responded to fluid resuscitation. Some kidney injury may also be related to multiple medications. Patient had been taking to loop diuretics and has been instructed at discharge to discontinue her furosemide permanently. Patient experienced mental status changes on admission although these resolved rather quickly. They were combination of her level of illness likely along with the acute kidney injury and continued use of gabapentin. Gabapentin was held initially and restarted prior to discharge. Patient will continue IV antibiotics until June 19. She will follow-up in my office on June 19. Objective Vital signs: Temp Pulse Resp BP Pulse Ox 99.2 F 81 16 129/72 97 06/15/20 04:00 06/15/20 04:00 06/15/20 04:00 06/15/20 04:00 06/15/20 04:00 no acute distress - *Routine Respiratory Exam Present: CTA bilaterally - *Routine Cardiovascular Exam Present: RRR - *Routine Abdominal Exam Comments: Mild right lower quadrant tenderness, no rebound or guarding Results Labs on day of discharge: Labs from last 24 hours 06/15/20 06/15/20 06/14/20 06:47 05:50 22:08 WBC 5.8 D RBC 2.94 L Hgb 10.4 L Hct 30.6 L MCV 104.1 H MCH 35.6 H MCHC 34.1 RDW 14.6 Plt Count 124 L MPV 8.7 Neut % (Auto) 81.3 H Lymph % (Auto) 11.9 [place] % (Auto) 5.7 Eos % (Auto) 0.9 Baso % (Auto) 0.1 Neut # (Auto) 4.7 Lymph # (Auto) 0.7 [place] # (Auto) 0.3 Eos # (Auto) 0.1 Baso # (Auto) 0.0 Sodium Potassium Chloride Carbon Dioxide Anion Gap BUN Creatinine Estimated Creat Clear Estimated GFR Est GFR ( Amer) Glucose POC Glucose 157 H 180 H Calcium 06/14/20 06/14/20 06/14/20 15:44 11:08 06:55 WBC RBC Hgb Hct MCV MCH MCHC RDW Plt Count MPV Neut % (Auto) Lymph % (Auto) [place] % (Auto) Eos % (Auto) Baso % (Auto) Neut # (Au
--- NOTE | 2020-06-15 07:29 | SW/DCPLANNER ---
PATIENT ADMITTED TO [facility] WITH A DIAGNOSIS OF SEPSIS.... SHE IS DISCHARGING HOME TODAY TO RETURN FOR 4 MORE DAYS OF IV ANTIBIOTICS... PATIENT IS FROM HOME AND THIS IS NOT AN ISSUE... SHE WILL GET HER DOSE BEFORE SHE LEAVES TODAY...
[2020-06-15 07:37] VITALS: O2SAT 97
[2020-06-15 08:00] VITALS: BP 129/65; PULSE 74; RESP 18; TEMP 36.9; O2SAT 95
[2020-06-15 08:27] VITALS: PULSE 84
--- NOTE | 2020-06-15 21:43 | ECG_ITS ---
APPROVED REPORT Exam: Resting ECG HR:79 bpm ECG Measurements Heart Rate 79 AXES QRSd 88 QRS 45 QT 338 T 229 QTc 387 <Conclusion> Demand pacemaker, interpretation is based on intrinsic rhythm Atrial fibrillation with premature ventricular or aberrantly conducted complexes Low voltage QRS Inferior infarct, age undetermined Cannot rule out Anterior infarct, age undetermined Abnormal ECG Electronically signed by : Rad Branch, 06/17/2020 08:10:37
== END 2020-06-15 09:31 | disposition home or self-care (01) | DRG 689 ==
LOC: ER 03:48 → 2ND 05:49
PROVIDERS: Admitting Provider Family Medicine; Emergency Provider Emergency Medicine; PCP Family Medicine; Visit Provider Family Medicine
DX: N39.0 Urinary tract infection, site not specified (principal); A41.51 Sepsis due to Escherichia coli [E. coli]; I50.42 Chronic combined systolic (congestive) and diastolic (congestive) heart failure; I48.11 Longstanding persistent atrial fibrillation; N17.9 Acute kidney failure, unspecified; I11.0 Hypertensive heart disease with heart failure; E11.9 Type 2 diabetes mellitus without complications; Z79.4 Long term (current) use of insulin; Z88.8 Allergy status to other drugs, medicaments and biological substances; B96.20 Unspecified Escherichia coli [E. coli] as the cause of diseases classified elsewhere; Z91.81 History of falling
CPT/HCPCS: 70450; 71046; 74176; 80048; 80053; 80162; 80184; 80305; 80329; 81001; 82962; 83605; 84484; 85007; 85025; 86328; 87040; 87077; 87086; 87088; 87186; 93005; 96365; 96366; 96367; 99285; J1335

== ENCOUNTER 2020-06-16 10:00 | Outpatient (CLI) | payer MEDICARE, SELFPAY ==
[2020-06-16 10:40] VITALS: BP 118/53; PULSE 75; RESP 18; O2SAT 96
[2020-06-16 11:40] VITALS: BP 118/57; PULSE 72; RESP 18
== END 2020-06-16 11:40 | disposition home or self-care (01) ==
LOC: INF 10:12
PROVIDERS: Visit Provider Family Medicine
DX: N10 Acute pyelonephritis (principal)
CPT/HCPCS: 96365

== ENCOUNTER → 2020-06-17 10:00 | Outpatient (CLI) | payer MEDICARE, SELFPAY ==
[2020-06-17 10:00] VITALS: BP 107/52; PULSE 70; RESP 16; TEMP 36.6; O2SAT 96
[2020-06-17 10:37] VITALS: BP 104/34; PULSE 72; RESP 16; TEMP 36.6; O2SAT 97; BMI 40.8
== END ==
PROVIDERS: PCP Family Medicine; Visit Provider Family Medicine
DX: N10 Acute pyelonephritis (principal)
CPT/HCPCS: 96365

== ENCOUNTER → 2020-06-18 09:49 | Outpatient (CLI) | payer MEDICARE, SELFPAY ==
[2020-06-18 10:00] VITALS: BP 113/56; PULSE 69; RESP 16; TEMP 36.5; O2SAT 98
[2020-06-18 10:55] VITALS: BP 101/62; PULSE 70; RESP 16; TEMP 36.7; O2SAT 99
== END ==
PROVIDERS: PCP Family Medicine; Visit Provider Family Medicine
DX: N10 Acute pyelonephritis (principal)
CPT/HCPCS: 96365; G0463

== ENCOUNTER 2020-06-19 09:44 | Outpatient (CLI) | payer MEDICARE, SELFPAY ==
[2020-06-19 10:02] VITALS: BP 114/47; PULSE 76; RESP 18; TEMP 36.3; O2SAT 95
[2020-06-19 10:45] VITALS: BP 122/49; PULSE 69; RESP 20
== END 2020-06-19 10:45 | disposition home or self-care (01) ==
LOC: INF 09:46
PROVIDERS: Visit Provider Family Medicine
DX: N10 Acute pyelonephritis (principal)
CPT/HCPCS: 96365

== ENCOUNTER 2020-06-23 16:45 | Emergency (ER) | payer MEDICARE, SELFPAY ==
--- NOTE | 2020-06-23 17:05 | HMH.EDGENADL ---
ED Disposition Clinical Impression: Left flank pain, Bilateral foot pain Leukocytosis, unspecified Qualifiers: Leukocytosis type: unspecified Qualified Code(s): D72.829 - Elevated white blood cell count, unspecified Disposition: Home, Self-Care Condition on Discharge: Good Instructions: DI for Foot Pain, DI for Flank Pain Additional Instructions: Continue oral antibiotic prescribed by Dr. Galvan. See Martha Miner at Dr. Galvan's office tomorrow. Call at 9 AM to make appointment to be seen. Continue tramadol for pain. Return to the emergency room if fever greater than 100.5, vomiting, abdominal pain, or worsening of condition. Referrals: Rad Galvan MD [Primary Care Provider] - - Critical Care Critical Care Time: No Attestation: On 06/23/20, the high probability of a clinically significant, sudden or life threatening deterioration of the following system(s) required my full and direct attention, intervention and personal management. The time I documented below is in addition to time spent performing reported procedures but includes the following listed in this critical care notation. Medical Decision Making - Medical Records Medical records reviewed: Yes: I reviewed the patient's medical records. - Neil Inquiry Pt receiving controlled substance: No Vital Signs: 06/23/20 17:14 06/23/20 18:50 Temperature 99.5 F Temperature Source Oral Pulse Rate 86 Pulse Rate [Radial] 86 Respiratory Rate 16 16 Blood Pressure 117/54 L Blood Pressure [Right Arm] 117/54 L Blood Pressure Mean [Right Arm] 75 Blood Pressure Source Automatic Cuff Blood Pressure Source [Right Arm] Automatic Cuff Blood Pressure Position Sitting Blood Pressure Position [Right Arm] Supine 02 Sat by Pulse Oximetry 97 Oxygen Delivery Method Room Air Room Air - Lab Data Lab results reviewed: Yes: I reviewed the patient's lab results. Lab Results 06/23/20 17:34: Urine Color Dk yellow, Urine Appearance Sl cloudy, Urine pH 7.0, Ur Specific [place] 1.010, Urine Protein Trace, Urine Glucose (UA) Negative, Urine Ketones Negative, Urine Blood Negative, Urine Nitrate Negative, Urine Bilirubin Negative, Urine Urobilinogen 0.2, Ur Leukocyte Esterase Negative, Urine WBC Occasional, Ur Squamous Epith Cells 20-50 06/23/20 17:34: WBC 14.2 H, RBC 3.27 L, Hgb 11.5 L, Hct 34.2 L, MCV 104.6 H, MCH 35.3 H, MCHC 33.7, RDW 14.3, Plt Count 387, MPV 8.2, Neut % (Auto) 87.1 H, Lymph % (Auto) 7.7 L, [place] % (Auto) 4.5, Eos % (Auto) 0.5, Baso % (Auto) 0.2, Neut # (Auto) 12.4 H, Lymph # (Auto) 1.1, [place] # (Auto) 0.6, Eos # (Auto) 0.1, Baso # (Auto) 0.0, Total Counted 100, Neutrophils % (Manual) 88 H, Lymphocytes % (Manual) 9 L, Monocytes % (Manual) 3, Platelet Estimate Normal, Anisocytosis 1+, Macrocytosis 1+ 06/23/20 17:34: Sodium 137, Potassium 3.3 L, Chloride 91 L, Carbon Dioxide 37 H, Anion Gap 12.3, BUN 19 H, Creatinine 1.20 H, Estimated Creat Clear 72, Estimated GFR 45 L, Est GFR ( Amer) 55 L, Glucose 163 H, Calcium 8.8, Total Bilirubin 1.1, AST 59 H, ALT 45, Alkaline Phosphatase 232 H, Total Protein 7.3, Albumin 3.6, Globulin 3.7 H, Albumin/Globulin Ratio 1.0 L, Lipase 49 06/23/20 17:34: Lactate 1.5 Result diagrams: 06/23/20 17:34 06/23/20 17:34 Orders (Tests/Meds): ED MEDICATIONS Discontinued Medications Generic Name Dose Route Start Last Admin Trade Name Roman PRN Reason Stop Dose Admin Ceftriaxone Sodium 1 gm/ 50 mls @ 100 mls/hr 06/23/20 18:15 06/23/20 18:34 Sodium Chloride IV 06/23/20 18:44 100 mls/hr ONCE ONE Administration Protocol ORDERS Category Date Time Status Blood Culture Stat Micro 06/23/20 17:34 Received - Physician Consults Physician Consulted: Mireya Galvan Time: 18:16 Reason -: Pt condition Comment/Response: Requests 1 dose of intravenous Rocephin, continue oral antibiotic, and see Dr. Galvan next week. Additional Consult: Cole Time: 18:35 Reason -: Pt condition Comment/Resp
[2020-06-23 17:14] VITALS: BP 117/54; PULSE 86; RESP 16; O2SAT 97; BMI 39.6
[2020-06-23 17:44] LABS: Microscopic, Urine URINE MICROSCOPIC (MICROSCOPIC)
[2020-06-23 17:48] LABS: Appearance,Urine SL CLOUDY (Clear); Bilirubin,Urine Negative (Negative); Blood, Urine Negative (Negative); Color,Urine DK YELLOW (Yellow); Glucose,Urine (UA) Negative (Negative); Ketones,Urine Negative (Negative); Leukocyte Esterase,Urine Negative (Negative); Nitrate,Urine Negative (Negative); Protein,Urine TRACE (Negative); Urobilinogen,Urine 0.2 EU/dl (0.2)
[2020-06-23 17:50] LABS: Basophils % 0.2 % (0.1-2.0); Eosinophils # 0.1 K/mm3 (0.0-0.4); Eosinophils % 0.5 % (0.1-12.0); Hematocrit 34.2 % (37.0-47.0); Hemoglobin 11.5 g/dL (12.2-16.2); Lymphocytes # 1.1 K/mm3 (0.7-4.5); Lymphocytes % 7.7 % (10-50); Mean Corpuscular HGB Conc 33.7 g/dL (31.8-35.4); Mean Corpuscular Hemoglobin 35.3 pg (27.0-31.2); Mean Corpuscular Volume 104.6 fl (81-99); Mean Platelet Volume 8.2 fl (7.4-10.4); Monocytes # 0.6 K/mm3 (0.1-1.0); Monocytes % 4.5 % (1.7-9.3); Neutrophils # 12.4 K/mm3 (1.8-7.8); Neutrophils % 87.1 % (37.0-80.0); Platelet Count 387 K/mm3 (142-424); Red Blood Count 3.27 M/mm3 (4.20-5.40); Red Cell Distribution Width 14.3 % (11.5-17.5); White Blood Count 14.2 K/mm3 (4.8-10.8)
[2020-06-23 17:52] LABS: MANUAL DIFFERENTIAL MANUAL DIFFERENTIAL (MANUAL DIFF)
[2020-06-23 17:53] LABS: Chloride 91 mmol/L (98-107); Potassium 3.3 mmoL/L (3.5-5.1); Sodium 137 mmol/L (136-145); Squamous Epithelial Cell,Urine 20-50 #/hpf (0-5); WBC,Urine Occasional #/hpf (0-3)
[2020-06-23 17:56] LABS: Alanine Aminotransferase 45 U/L (12-78); Albumin Level 3.6 g/dl (3.5-5.0); Alkaline Phosphatase 232 U/L (38-126); Anion Gap 12.3 mEq/L (5-15); Aspartate Amino Transferase 59 U/L (14-36); Bilirubin,Total 1.1 mg/dl (0.2-1.3); Blood Urea Nitrogen 19 mg/dl (7-17); Calcium 8.8 mg/dl (8.4-10.2); Carbon Dioxide 37 mmol/L (22.0-30.0); Creatinine Clearance Estimated 72 mL/min (50-200); Estimated Glomerular Filt Rate 45 ml/min (>60); GFR (African American) 55 ML/MIN (>60); Globulin 3.7 g/dL (1.3-3.2); Glucose 163 mg/dl (74-100); Lactic Acid 1.5 mmol/L (0.7-2.1); Lipase 49 U/L (23-300); Total Protein,Serum 7.3 g/dl (6.3-8.2)
[2020-06-23 18:08] LABS: Anisocytosis 1+; Lymphocytes % 9 % (10-50); Macrocytosis 1+; Monocytes % 3 % (2-9); Neutrophils % 88 % (42-76); Platelet Estimate Normal; Total Cells Counted 100
[2020-06-23 18:50] VITALS: BP 117/54; PULSE 86; RESP 16; TEMP 37.5; O2SAT 97
== END 2020-06-23 18:57 | disposition home or self-care (01) ==
PROVIDERS: Emergency Provider Emergency Medicine; PCP Family Medicine
DX: M79.672 Pain in left foot (principal); M79.671 Pain in right foot; R10.12 Left upper quadrant pain; D72.829 Elevated white blood cell count, unspecified; E11.9 Type 2 diabetes mellitus without complications; I48.20 Chronic atrial fibrillation, unspecified; I25.10 Atherosclerotic heart disease of native coronary artery without angina pectoris; K21.9 Gastro-esophageal reflux disease without esophagitis; E78.5 Hyperlipidemia, unspecified; I10 Essential (primary) hypertension; E66.01 Morbid (severe) obesity due to excess calories; Z68.39 Body mass index [BMI] 39.0-39.9, adult; Z79.899 Other long term (current) drug therapy
CPT/HCPCS: 80053; 81001; 83605; 83690; 85007; 85025; 87040; 96365; 99283

== ENCOUNTER → 2020-08-16 13:14 | Outpatient (CLI) | payer MEDICARE, SELFPAY ==
[2020-08-16 13:23] LABS: Microscopic, Urine URINE MICROSCOPIC (MICROSCOPIC)
[2020-08-16 14:00] LABS: Appearance,Urine SL CLOUDY (Clear); Bilirubin,Urine Negative (Negative); Blood, Urine TRACE-I (Negative); Color,Urine YELLOW (Yellow); Glucose,Urine (UA) Negative (Negative); Ketones,Urine Negative (Negative); Leukocyte Esterase,Urine 3+ (Negative); Nitrate,Urine POSITIVE (Negative); Protein,Urine Negative (Negative); Specific Gravity, Urine 1.015 (1.005-1.030); Urobilinogen,Urine 0.2 EU/dl (0.2)
[2020-08-16 14:08] LABS: Bacteria,Urine 2+ /lpf; WBC,Urine TNTC #/hpf (0-3)
[2020-08-16 14:59] LABS: Chloride 98 mmol/L (98-107); Sodium 142 mmol/L (136-145)
[2020-08-16 15:00] LABS: Albumin Level 3.9 g/dl (3.5-5.0); Chloride 97 mmol/L (98-107); Potassium 4.3 mmoL/L (3.5-5.1); Sodium 142 mmol/L (136-145)
[2020-08-16 15:00] LABS: Potassium 4.1 mmoL/L (3.5-5.1)
[2020-08-16 15:02] LABS: Anion Gap 12.1 mEq/L (5-15); Blood Urea Nitrogen 25 mg/dl (7-17); Carbon Dioxide 36 mmol/L (22.0-30.0); Estimated Glomerular Filt Rate 56 ml/min (>60); GFR (African American) 68 ML/MIN (>60)
[2020-08-16 15:03] LABS: Anion Gap 13.3 mEq/L (5-15); Blood Urea Nitrogen 26 mg/dl (7-17); Calcium 9.8 mg/dl (8.4-10.2); Carbon Dioxide 36 mmol/L (22.0-30.0); Estimated Glomerular Filt Rate 56 ml/min (>60); GFR (African American) 68 ML/MIN (>60); Glucose 139 mg/dl (74-100); Phosphorous 3.1 mg/dl (2.5-4.5)
[2020-08-16 15:03] LABS: Calcium 9.8 mg/dl (8.4-10.2); Glucose 140 mg/dl (74-100)
[2020-08-16 15:11] LABS: NT Pro Brain Natriuretic Pep. 450 pg/mL (0-125)
== END ==
PROVIDERS: Internal Medicine Nephrology; Nurse Practitioner Family; Visit Provider Internal Medicine Cardiovascular Disease
DX: R60.0 Localized edema (principal); I50.40 Unspecified combined systolic (congestive) and diastolic (congestive) heart failure; R06.01 Orthopnea; R82.90 Unspecified abnormal findings in urine
CPT/HCPCS: 36415; 80048; 80069; 81001; 83880; 87086; 87088; 87186

== ENCOUNTER → 2020-08-18 14:41 | Outpatient (POV) | payer MEDICARE, SELFPAY | PROVIDERS: Visit Provider Internal Medicine Nephrology | DX: Z00.00 Encounter for general adult medical examination without abnormal findings (principal) ==

== ENCOUNTER 2020-08-31 16:10 | Inpatient (IN) | payer MEDICARE, SELFPAY ==
[2020-08-31] VITALS (10 sets, daily range): BP systolic 94–124; BP diastolic 49–61; PULSE 60–96; RESP 17–22; TEMP 36.9–37.5; O2SAT 91–97; BMI 37.9
--- NOTE | 2020-08-31 16:45 | XR_ITS ---
PROCEDURE: XR CHEST PORTABLE CLINICAL HISTORY: soa positive covid patient COMPARISON: CT CTAC CTA-CHEST from 01/24/2016 CR XR CHEST PORTABLE from 05/09/2020 CR XR CHEST 2V from 06/13/2020 CR XR CHEST PORTABLE from 06/13/2020 FINDINGS: Normal heart size. Biventricular pacemaker present with right atrial lead. Patchy ground-glass density noted right upper lobe. The remaining lungs are clear. No effusions. Possible infiltrate in the left upper lobe is well. No acute bony abnormalities. IMPRESSION: Bilateral upper lobe pneumonia. Consider atypical pneumonia, viral pneumonia/Covid 19 pneumonia Dictated by: Momo Jorgensen MD 09/01/2020 04:55 Momo Jorgensen MD in [place] 09/01/2020 04:55
[2020-08-31 16:51] LABS: Adenovirus,PCR Not Detected (NotDetected); Bordetella Pertussis Not Detected (NotDetected); Chlamydophila Pneumoniae, PCR Not Detected (NotDetected); Coronavirus 229E Not Detected (NotDetected); Coronavirus NL63 Not Detected (NotDetected); Coronavirus OC43 Not Detected (NotDetected); Coronovirus HKU1,PCR Not Detected (NotDetected); Human Metapneumovirus Not Detected (NotDetected); Influenza A, PCR Not Detected (NotDetected); Influenza AH1, 2009 Not Detected (NotDetected); Influenza AH1, PCR Not Detected (NotDetected); Influenza AH3,PCR Not Detected (NotDetected); Influenza B, PCR Not Detected (NotDetected); Mycoplasma Pneumoniae, PCR Not Detected (NotDetected); Parainfluenza 1, PCR Not Detected (NotDetected); Parainfluenza 2, PCR Not Detected (NotDetected); Parainfluenza 3, PCR Not Detected (NotDetected); Parainfluenza 4, PCR Not Detected (NotDetected); Respiratory Syncytial Virus Not Detected (NotDetected); Rhinovirus/Enterovirus Not Detected (NotDetected)
--- NOTE | 2020-08-31 17:07 | HMH.HP ---
*Admission Date: 08/31/20 *Chief complaint: Weakness, cough, shortness of breath *History of present illness: 65-year-old female presented to the office today with 3 days of cough with developing shortness of breath, elevated temperature to 99.9 and generalized weakness. She reports multiple sick family members. No one has been tested for coronavirus. She denied headache, loss of smell or taste, sore throat. She did endorse myalgias, chills, generalized weakness. Recent medical history is also positive for gram-negative sepsis from a urinary tract infection. Within the last 3 weeks patient had recurrent urinary tract infection for which she delayed initiation of antibiotics due to financial hardship. Patient reports she is currently in the middle of that course of antibiotics. In the office the patient appeared weak and even confused at times with difficulty finishing sentences. Patient had O2 sats ranging from 86% to 96%. Lung exam was difficult due to patient's weakened poor inspiratory effort but was suspicious for pneumonia. Decision was made to meet admit the patient for further testing, observation and to expedite work-up. [facility] History I have reviewed the patient's past medical history: Yes Medical History: Reports:: Arrhythmia, Atrial Fibrillation, Cardiomyopathy, Congestive Heart Failure, Coronary Artery Disease, Diabetes Mellitus Type 2, Gastroesophageal Reflux Disease(GERD), Hyperlipidemia, Hypertension, Internal Pacemaker, Palpitations, Seizures Denies:: Cancer, Diabetes Mellitus Type 1, MRSA *Have you ever received a pneumonia vaccine?: No *Have you received a flu vaccine this season?: Yes Other Medical History: Reports: Arthritis Laterality Cases: Bilateral: Tonsillectomy Other Surgeries: Yes: Appendectomy, Cardiac Catheterization, Cholecystectomy, Pacemaker, Other (Defibrillator, tonsillectomy.) Amputation: No Fractures: No - *Social History Last grade of school completed: High school graduate Smoking Status: Never smoker # Packs/Day (cigarettes): 0 #Yrs smoked (if former smoker): 0 Alcohol Intake: never Alcohol Intake Frequency:: other Substance Use Type: denies use *Occupational Status:: disabled Housing: house Household Members: family *Travel in the last 8 weeks: None - Psychiatric History Expresses thoughts of harming self/others: None Suicide Plan Description: No Plan Pschychiatric History:: Reports:: Depression Family Hx:: Heart Attack, Hyperlipidemia Review of Systems - Constitutional Reports body ache(s), Reports chills, Reports fever(s), Reports weakness, Denies headache(s) - Eyes Denies blind spots - ENT Reports dizziness, Denies abnormal hearing, Denies ear pain - *Cardiovascular Reports shortness of breath, Reports shortness of breath with activity, Reports irregular heart rhythm, Denies chest pain, Denies chest pain at rest - *Respiratory Reports chest congestion, Reports cough, Reports shortness of breath, Denies change in phlegm color, Denies coughing up blood, Denies pain on inspiration - *Gastrointestinal Denies abdominal pain - *Genitourinary Denies abnormal periods - *Musculoskeletal Reports abnormal walking, Reports joint pain - *Neurologic Reports abnormal walking Meds Home Medications Medication Instructions Recorded Confirmed Type Atorvastatin Calcium [Lipitor 10mg 10 mg PO DAILY 12/03/17 08/31/20 History Tab] Pantoprazole Sodium [Protonix 40mg 40 mg PO BID 12/03/17 08/31/20 History tablet] Tramadol HCl [Ultram 50mg 50 mg PO BID PRN 12/03/17 08/31/20 History tablet] rivaroxaban 20 mg tablet 20 mg PO DAILY #90 tab 08/23/19 08/31/20 Rx gabapentin 800 mg tablet 800 mg PO TID 12/21/19 08/31/20 History insulin human U-100 NPH-regulr 90 units SQ DAILY 12/21/19 09/01/20 History 70-30 mix 100 unit/mL subcutaneous susp loratadine 10 mg tablet 10 mg PO DAILY 12/21/19 08/31/20 History omega 2-qik-enp-fish oil 300 1 cap PO BID 12/21/19
[2020-08-31 17:11] LABS: Basophils # 0.1 K/mm3 (0-0.2); Basophils % 0.8 % (0.1-2.0); Eosinophils % 0.5 % (0.1-12.0); Hematocrit 36.8 % (37.0-47.0); Hemoglobin 11.7 g/dL (12.2-16.2); Lymphocytes # 0.9 K/mm3 (0.7-4.5); Lymphocytes % 15.2 % (10-50); Mean Corpuscular HGB Conc 31.7 g/dL (31.8-35.4); Mean Corpuscular Hemoglobin 31.6 pg (27.0-31.2); Mean Corpuscular Volume 99.7 fl (81-99); Mean Platelet Volume 8.6 fl (7.4-10.4); Monocytes # 0.4 K/mm3 (0.1-1.0); Monocytes % 6.2 % (1.7-9.3); Neutrophils # 4.5 K/mm3 (1.8-7.8); Neutrophils % 77.2 % (37.0-80.0); Platelet Count 200 K/mm3 (142-424); Red Cell Distribution Width 15.5 % (11.5-17.5); White Blood Count 5.8 K/mm3 (4.8-10.8)
[2020-08-31 17:18] LABS: Lactic Acid 2.2 mmol/L (0.7-2.1)
[2020-08-31 17:24] LABS: Chloride 102 mmol/L (98-107); Potassium 4.5 mmoL/L (3.5-5.1); Sodium 139 mmol/L (136-145)
[2020-08-31 17:27] LABS: Alanine Aminotransferase 32 U/L (12-78); Albumin Level 3.9 g/dl (3.5-5.0); Albumin/Globulin Ratio 1.3 (1.1-1.8); Alkaline Phosphatase 136 U/L (38-126); Anion Gap 15.5 mEq/L (5-15); Aspartate Amino Transferase 70 U/L (14-36); Bilirubin,Total 0.7 mg/dl (0.2-1.3); Blood Urea Nitrogen 40 mg/dl (7-17); Calcium 8.8 mg/dl (8.4-10.2); Carbon Dioxide 26 mmol/L (22.0-30.0); Creatinine Clearance Estimated 36 mL/min (50-200); Estimated Glomerular Filt Rate 20 ml/min (>60); GFR (African American) 25 ML/MIN (>60); Globulin 3.1 g/dL (1.3-3.2); Glucose 90 mg/dl (74-100)
[2020-08-31 18:10] LABS: Coronavirus 19, PCR Detected (NotDetected)
--- NOTE | 2020-08-31 19:43 | PC.NURSE ---
Made md aware of labs, dr coffey, he ordered a liter bolus ns and also made him aware pt was covid positive, he ordered to move to unit and dexamethosone per mar. Pt going to unit at this time. Have called report to Karlos Dorantes RN.
[2020-08-31 20:38] LABS: C-Reactive Protein 88.5 mg/L (0-4)
[2020-08-31 20:54] LABS: POC Glucose,Bedside 78 (70-110)
[2020-08-31 21:07] LABS: Reflex Lactic Add Lactic Reflex
[2020-08-31 21:35] LABS: Microscopic, Urine URINE MICROSCOPIC (MICROSCOPIC)
[2020-08-31 21:37] LABS: Appearance,Urine CLEAR (Clear); Bilirubin,Urine Negative (Negative); Blood, Urine Negative (Negative); Color,Urine YELLOW (Yellow); Glucose,Urine (UA) Negative (Negative); Ketones,Urine Negative (Negative); Leukocyte Esterase,Urine Negative (Negative); Nitrate,Urine Negative (Negative); Protein,Urine TRACE (Negative); Specific Gravity, Urine 1.015 (1.005-1.030); Urobilinogen,Urine 0.2 EU/dl (0.2)
--- NOTE | 2020-08-31 21:37 | PC.NURSE ---
She is A&Ox4 at this time. She is slow to answer some questions, states that she has difficulty remembering things. She reports feeling tired and weak. Ambulated to the BR with assist x1. Poor balance upon standing but was able to regain balance and ambulated with steady gait. Urine is bright yellow, clear. She reports an occasional non-productive cough. Lung sounds diminished. Normal bowel sounds. She reports she had diarrhea today (08/31/20) and vomited on 08/30/20. Denies any nausea at this time. No BM thus far this shift. Received one time dose of pepcid for reports of mid-epigastric pain. She reports having a poor appetite for the past week. Refused bedtime snack. Glucose at 2100 was 78. O2 ranges from 91-92% on RA while asleep. Placed on 2LPM n/c to maintain O2 sats >94% per MD. Paced on telemetry with occasional PVC.
[2020-08-31 21:44] LABS: Lactic Acid Follow Up (RFLX 1) 1.3 mmol/L (0.7-2.1)
[2020-08-31 21:48] LABS: Squamous Epithelial Cell,Urine TNTC #/hpf (0-5)
[2020-08-31 21:49] LABS: Amorphous Sediment,Urine Trace /lpf; Bacteria,Urine 1+ /lpf; Mucus,Urine 1+ /lpf
[2020-09-01] VITALS (20 sets, daily range): BP systolic 96–124; BP diastolic 44–64; PULSE 60–75; RESP 15–20; TEMP 36.8–37.5; O2SAT 92–98; BMI 38.3; BMI 38.5
[2020-09-01 01:21] LABS: POC Glucose,Bedside 115 (70-110)
--- NOTE | 2020-09-01 04:50 | PC.NURSE ---
She was able to get some cristina crackers and peanut butter with a diet jaiden mist. Also reported dizziness to SRNA when standing to go to the bathroom. Oxygen increased to 3LPM n/c. O2 sats maintaining 93% on 2.5LPM n/c. Reports a sore throat at this time.
[2020-09-01 05:56] LABS: Chloride 104 mmol/L (98-107)
[2020-09-01 05:57] LABS: Potassium 4.2 mmoL/L (3.5-5.1); Sodium 136 mmol/L (136-145)
[2020-09-01 05:58] LABS: Basophils % 0.2 % (0.1-2.0); Eosinophils % 0.9 % (0.1-12.0); Hematocrit 33.8 % (37.0-47.0); Hemoglobin 11.1 g/dL (12.2-16.2); Lymphocytes # 0.6 K/mm3 (0.7-4.5); Lymphocytes % 20.1 % (10-50); Mean Corpuscular HGB Conc 32.9 g/dL (31.8-35.4); Mean Corpuscular Hemoglobin 34.1 pg (27.0-31.2); Mean Corpuscular Volume 103.5 fl (81-99); Mean Platelet Volume 8.1 fl (7.4-10.4); Monocytes # 0.2 K/mm3 (0.1-1.0); Monocytes % 5.1 % (1.7-9.3); Neutrophils # 2.3 K/mm3 (1.8-7.8); Neutrophils % 73.7 % (37.0-80.0); Platelet Count 162 K/mm3 (142-424); Red Blood Count 3.27 M/mm3 (4.20-5.40); Red Cell Distribution Width 15.2 % (11.5-17.5); White Blood Count 3.1 K/mm3 (4.8-10.8)
[2020-09-01 05:59] LABS: Alanine Aminotransferase 28 U/L (12-78); Albumin Level 3.4 g/dl (3.5-5.0); Albumin/Globulin Ratio 1.1 (1.1-1.8); Alkaline Phosphatase 132 U/L (38-126); Anion Gap 14.2 mEq/L (5-15); Aspartate Amino Transferase 46 U/L (14-36); Bilirubin,Total 0.4 mg/dl (0.2-1.3); Blood Urea Nitrogen 40 mg/dl (7-17); Calcium 8.2 mg/dl (8.4-10.2); Carbon Dioxide 22 mmol/L (22.0-30.0); Creatinine Clearance Estimated 45 mL/min (50-200); Estimated Glomerular Filt Rate 27 ml/min (>60); GFR (African American) 32 ML/MIN (>60); Globulin 3.1 g/dL (1.3-3.2); Glucose 298 mg/dl (74-100); Total Protein,Serum 6.5 g/dl (6.3-8.2)
--- NOTE | 2020-09-01 06:16 | PC.NURSE ---
1 BM of diarrhea at this time.
--- NOTE | 2020-09-01 08:11 | HMH.ACPN2 ---
Internal Medicine - PN: Subj *Date: 09/01/20 *Time: 08:12 Interval history: After admission to the floor last night patient's COVID 19 test subsequently returned positive so she was moved to the special care unit. This morning she reports minimal cough. O2 sat is only been as low as 91% but patient has had supplemental oxygen applied. She does report some sore throat this morning. Exam Vital signs and Labs for Last 24 Hours: Temp Pulse Resp BP Pulse Ox 99.2 F 70 15 106/53 L 93 L 09/01/20 01:15 09/01/20 08:00 09/01/20 08:00 09/01/20 08:00 09/01/20 08:00 Laboratory Results - last 24 hr 08/31/20 16:45: Chlamy pneumoniae PCR Not detected, Adenovirus (PCR) Not detected, B. pertussis DNA (PCR) Not detected, Coronavirus OC43 (PCR) Not detected, Coronavirus HKU1 (PCR) Not detected, Coronavirus 229E (PCR) Not detected, COVID-19 PCR Detected A, Coronavirus NL63 (PCR) Not detected, Human Metapneumovir PCR Not detected, Influenza A (H1) PCR Not detected, Influ A (H1N1/09) PCR Not detected, Influenza A (H3) PCR Not detected, Influenza Type A (PCR) Not detected, Influenza Type B (PCR) Not detected, M. pneumoniae (PCR) Not detected, Parainfluenza 1 (PCR) Not detected, Parainfluenza 2 (PCR) Not detected, Parainfluenza 3 (PCR) Not detected, Parainfluenza 4 (PCR) Not detected, RSV (PCR) Not detected, Entero/Rhino (PCR) Not detected 08/31/20 16:55: WBC 5.8, RBC 3.70 L, Hgb 11.7 L, Hct 36.8 L, MCV 99.7 H, MCH 31.6 H, MCHC 31.7 L, RDW 15.5, Plt Count 200, MPV 8.6, Neut % (Auto) 77.2, Lymph % (Auto) 15.2, Vigo % (Auto) 6.2, Eos % (Auto) 0.5, Baso % (Auto) 0.8, Neut # (Auto) 4.5, Lymph # (Auto) 0.9, Vigo # (Auto) 0.4, Eos # (Auto) 0.0, Baso # (Auto) 0.1 08/31/20 16:55: Sodium 139, Potassium 4.5, Chloride 102, Carbon Dioxide 26, Anion Gap 15.5 H, BUN 40 H, Creatinine 2.40 H, Estimated Creat Clear 36, Estimated GFR 20 L, Est GFR ( Amer) 25 L, Glucose 90, Calcium 8.8, Magnesium 2.0, Total Bilirubin 0.7, AST 70 H, ALT 32, Alkaline Phosphatase 136 H, Total Protein 7.0, Albumin 3.9, Globulin 3.1, Albumin/Globulin Ratio 1.3 08/31/20 16:55: Lactate 2.2 H 08/31/20 16:55: C-Reactive Protein 88.5 H 08/31/20 20:42: POC Glucose 78 08/31/20 21:20: Lactate 1.3 08/31/20 21:30: Urine Color Yellow, Urine Appearance Clear, Urine pH 6.0, Ur Specific Geneva 1.015, Urine Protein Trace, Urine Glucose (UA) Negative, Urine Ketones Negative, Urine Blood Negative, Urine Nitrate Negative, Urine Bilirubin Negative, Urine Urobilinogen 0.2, Ur Leukocyte Esterase Negative, Urine WBC 5-10, Ur Squamous Epith Cells Tntc, Amorphous Sediment Trace, Urine Bacteria 1+, Hyaline Casts 10-20, Urine Mucus 1+ 09/01/20 01:13: POC Glucose 115 H 09/01/20 04:40: WBC 3.1 L D, RBC 3.27 L, Hgb 11.1 L, Hct 33.8 L, MCV 103.5 H, MCH 34.1 H, MCHC 32.9, RDW 15.2, Plt Count 162, MPV 8.1, Neut % (Auto) 73.7, Lymph % (Auto) 20.1, Vigo % (Auto) 5.1, Eos % (Auto) 0.9, Baso % (Auto) 0.2, Neut # (Auto) 2.3, Lymph # (Auto) 0.6 L, Vigo # (Auto) 0.2, Eos # (Auto) 0.0, Baso # (Auto) 0.0 09/01/20 04:40: Sodium 136, Potassium 4.2, Chloride 104, Carbon Dioxide 22, Anion Gap 14.2, BUN 40 H, Creatinine 1.90 H D, Estimated Creat Clear 45, Estimated GFR 27 L, Est GFR ( Amer) 32 L D, Glucose 298 H D, Calcium 8.2 L, Total Bilirubin 0.4, AST 46 H D, ALT 28, Alkaline Phosphatase 132 H, Total Protein 6.5, Albumin 3.4 L D, Globulin 3.1, Albumin/Globulin Ratio 1.1 I & O for Last 24 hours: Intake & Output 08/29/20 08/30/20 08/31/20 09/01/20 11:59 11:59 11:59 11:59 Intake Total 1750 / 1750 Output Total 450 / 450 Balance 1300 / 1300 Weight 207 lb 9 oz Narrative: Patient appears comfortable and does not look as weak as yesterday. Oropharynx is moist and clear. Neck is without lymphadenopathy. Lungs are diminished with rales at the right base. Heart has an irregularly irregular rate and rhythm. Abdomen is soft. Lower extremities have 1+ edema. Chest x-ray from yesterday evening shows bilateral
--- NOTE | 2020-09-01 08:13 | PC.NURSE ---
PT RA O2 SATS 86%, PT PLACED ON 3L NC AND REBOUNDED TO 94%. ALSO DURING MORNING ASSESSMENT PT STATED THAT SHE HAD ADDRESSED CODE STATUS WITH MD CONROY AND STATED THAT SHE DID NOT WISH TO BE PLACED ON A VENTILATOR. SHE TOLD THIS NURSE THAT SHE HAD CHANGED HER MIND AND WISHED TO BE A FULL CODE WITH INTUBATION IF NEEDED.
--- NOTE | 2020-09-01 11:03 | PC.NURSE ---
0930-did call and relay to pulmonology clinic that there was a consult for dr. castellano.
--- NOTE | 2020-09-01 11:07 | PC.NURSE ---
PT HAS REFUSED PLACEMENT OF SEIZURE PADS
--- NOTE | 2020-09-01 11:44 | HMH.PULMCON ---
*Admission Date: 08/31/20 *Reason for consult:: Cute hypoxic respiratory failure, COVID-19 pneumonia *History of present illness: Ms. Edwards is a 65-year-old female history of atrial fibrillation on Lovenox of anticoagulation, diabetes mellitus, congestive heart failure, hypertensive heart disease, dyslipidemia, recurrent urinary tract infections, no prior respiratory complaints was presented to the ED with 7-day history of worsening shortness of breath, fatigue weakness along with worsening diarrhea. Patient admits that she met a friend a week ago that was positive for COVID-19. Patient denies any productive cough. Patient on presentation ED found to be hypoxic and was started on 3 L nasal cannula, respiratory status remained stable since then with saturations greater than 94%. Pulmonary was consulted for further management. [facility] History Medical History: Reports:: Arrhythmia, Atrial Fibrillation, Cardiomyopathy, Congestive Heart Failure, Coronary Artery Disease, Diabetes Mellitus Type 2, Gastroesophageal Reflux Disease(GERD), Hyperlipidemia, Hypertension, Internal Pacemaker, Palpitations, Seizures Denies:: Cancer, Diabetes Mellitus Type 1, MRSA *Have you ever received a pneumonia vaccine?: Yes *Have you received a flu vaccine this season?: Yes Other Medical History: Reports: Arthritis Laterality Cases: Bilateral: Tonsillectomy Other Surgeries: Yes: Appendectomy, Cardiac Catheterization, Cholecystectomy, Pacemaker, Other (Defibrillator, tonsillectomy.) Amputation: No Fractures: No - *Social History Last grade of school completed: High school graduate Smoking Status: Never smoker Tobacco Type: cigarettes # Packs/Day (cigarettes): 1 Alcohol Intake: never Alcohol Intake Frequency:: other Substance Use Type: denies use *Occupational Status:: retired Housing: house Household Members: family *Travel in the last 8 weeks: None Family Hx:: Heart Attack, Hyperlipidemia [facility] Pulmonology ROS - Review of Systems Review of systems:: pertinent systems reviewed and negative unless documented below - Constitutional Reports body ache(s), Reports chills, Reports fatigue, Reports fever(s) - *Cardiovascular Reports shortness of breath, Reports shortness of breath with activity, Reports leg swelling, Reports shortness of breath when lying down - *Respiratory Respiratory: Yes shortness of breath, Yes chest congestion, Yes non-productive cough, Yes dyspnea on exertion - *Gastrointestinal Gastrointestingal: Reports: diarrhea - *Musculoskeletal Musculoskeletal: Reports system reviewed and no additional complaints, except as docu - *Neurologic Reports abnormal walking, Reports weakness, Denies headache(s) Meds Home Medications Medication Instructions Recorded Confirmed Type Atorvastatin Calcium [Lipitor 10mg 10 mg PO DAILY 12/03/17 08/31/20 History Tab] Pantoprazole Sodium [Protonix 40mg 40 mg PO BID 12/03/17 08/31/20 History tablet] Tramadol HCl [Ultram 50mg 50 mg PO BID PRN 12/03/17 08/31/20 History tablet] rivaroxaban 20 mg tablet 20 mg PO DAILY #90 tab 08/23/19 08/31/20 Rx gabapentin 800 mg tablet 800 mg PO TID 12/21/19 08/31/20 History insulin human U-100 NPH-regulr 80 units SQ DAILY 12/21/19 08/31/20 History 70-30 mix 100 unit/mL subcutaneous susp loratadine 10 mg tablet 10 mg PO DAILY 12/21/19 08/31/20 History omega 7-xro-wgh-fish oil 300 1 cap PO BID 12/21/19 08/31/20 History mg-1,000 mg capsule,delayed release Insulin NPH Hum/Reg Insulin Hm 45 units SQ PM 02/12/20 08/31/20 History [Novolin 70-30 100 Unit/ml Vial] Isosorbide Mononitrate [Imdur 30mg 30 mg PO DAILY 02/12/20 08/31/20 History ER tablet] Multivit,Tx with Iron,Minerals 1 each PO DAILY 02/12/20 08/31/20 History [Complete Multivitamin] PHENobarbitaL [PHENobarbital 1 tab PO TID 02/12/20 08/31/20 History 32.4mg Tablet] Colchicine [Colcrys 0.6mg tablet] 0.6 mg PO DAILY 03/27/20 08/31/20 History Digoxin 125 mcg PO DAILY
--- NOTE | 2020-09-01 12:02 | P.CONPHA_ITS ---
[facility] Pharmacy VTE Monitoring - Patient Demographics Admission date: 09/01/20 Report Date: 09/01/20 Time: 12:02 Allergies/Adverse Reactions: Patient Allergies metoclopramide [From REGLAN] Allergy (Mild, Verified 07/10/20 14:02) SHAKRISTYN Height: 1.57 m Weight: 94.546 kg Patient Problems: Current Active Problems (Last Updated 05/16/20 @ 15:38 by Shelly Cunningham RN) Pneumonia due to COVID-19 virus (Acute) HHD (hypertensive heart disease) (Chronic) Chronic congestive heart failure (Chronic) Atrial fibrillation (Chronic) Diabetes mellitus type II, controlled (Chronic) Nonischemic cardiomyopathy (Chronic) - VTE Risk Labs: VTE Related Lab Results Hgb 11.1 g/dL (12.2-16.2) L 09/01/20 04:40 Hct 33.8 % (37.0-47.0) L 09/01/20 04:40 Plt Count 162 K/mm3 (142-424) 09/01/20 04:40 BUN 40 mg/dl (7-17) H 09/01/20 04:40 Creatinine 1.90 mg/dl (0.52-1.04) H D 09/01/20 04:40 Estimated Creat Clear 45 mL/min (50-200) 09/01/20 04:40 VTE Score: 5 VTE Risk Level: Low Risk - Prophylaxis VTE Prophylaxis Ordered?: Yes Types of VTE Prophylaxis: Pharmacological Pharmacologic Type: Other (XARELTO)
--- NOTE | 2020-09-01 12:05 | HMH.PHAINT ---
HOME MEDICATIONS RECONCILED FROM FILL HISTORY AND SPEAKING WITH DR CONROY'S OFFICE.
[2020-09-01 12:23] LABS: POC Glucose,Bedside 181 (70-110)
--- NOTE | 2020-09-01 13:46 | PC.NURSE ---
TITRATED NC TO 2LPM, PT CURRENTLY UP TO CHAIR WITH O2 SATS 98%. WILL CONTINUE TO MONITOR
--- NOTE | 2020-09-01 13:55 | PC.NURSE ---
PT 98% ON ROOM AIR AT THIS TIME
--- NOTE | 2020-09-01 17:05 | PC.NURSE ---
Addendum entered by Jairo Peng RN 09/01/20 18:41: ON BM NOTED THIS AM Original Note: PT IS AO*4, ABLE TO ANSWER QUESTIONS AND FOLLOW COMMANDS, SHE HAS BEEN AMBULATING INDEPENDENTLY IN ROOM, PERFORMED ALL ADL'S PER SELF, AND HAS BEEN UP TO CHAIR AT INTERVAL. PT STATES THAT SHE HAD A SEIZURE WHEN SHE WAS YOUNGER AFTER AN ACCIDENT AT WORK BUT REFUSED SEIZURE PADS ON BED RAILS, EDUCATED PT REGARDING THE NEED FOR SAFETY MEASURES, PT STILL REFUSED STATING THAT SHE HASN'T HAD A SEIZURE FOR YEARS. SHE HAS BEEN ON ROOM AIR FOR MOST OF SHIFT WITH O2 SATS RANGING FROM 94-99%, NO C/O SOA NOTED, NO BM THIS SHIFT, NO N/V NOTED, ABD IS SOFT ROUND AND NON-TENDER, PACER SPIKES NOTED ON TELE WITH OCCASIONAL PVC'S, PT IS NOW RESTING IN BED, NO COMPLAINTS AT THIS TIME, WILL CONTINUE TO MONITOR.
[2020-09-01 20:02] LABS: POC Glucose,Bedside 385 (70-110)
[2020-09-01 20:02] LABS: POC Glucose,Bedside 255 (70-110)
--- NOTE | 2020-09-01 20:30 | PC.NURSE ---
Pt declines to use seizure pads on bed. Explained need to precautionary measures with history of seizures, pt continues to decline.
[2020-09-02] VITALS (12 sets, daily range): BP systolic 97–135; BP diastolic 51–62; PULSE 70–87; RESP 16–28; TEMP 35.6–38.2; O2SAT 91–97; BMI 35.8; BMI 39.9
--- NOTE | 2020-09-02 03:24 | PC.NURSE ---
While awake, pt requires no oxygen supplementation. During sleep, pt tends to have repetitive sleep apnea type behaviors of apnea with sats that decrease to mid 80's followed by deep breathing with sats that immediately go back to the 95-97 range. Breath sounds continue to remain clear, while diminished in both bases. Pt is independent in all care and tolerates ambulation within her room well. Bedtime fingerstick was 385 with 10 units ssi insulin given per orders. Bedtime dose of bisoprolol was held this shift, due to low BP. SBP ranges this shift 100's-120's with DBP ranges of 39-60's. Pt remains in Afib with occasional PVC's. Denies soa/pain. Of note, pt exhibits many episodes of jerking, kicking, and uncontrolled arm motions during sleep.
--- NOTE | 2020-09-02 05:42 | PC.NURSE ---
Pt awakened 0535 disoriented to situation, place. Oriented to person and time. Pt stated she was in [employer] and was removing ekg monitor. Pt reoriented to place and reasons for hospitalization. Blood sugar checked, was 136. Snack of peanut butter and crackers given per pt request. Pt assisted to bathroom. BP 135/54, HR 72 and pacer spikes noted, O2 sats 94% on 2L/min via nc, RR 18. As of 0555, pt is now oriented x4, stating she is feeling better.
[2020-09-02 05:45] LABS: POC Glucose,Bedside 136 (70-110)
--- NOTE | 2020-09-02 08:53 | HMH.ACPN2 ---
Internal Medicine - PN: Subj *Date: 09/02/20 *Time: 08:53 Interval history: Patient had fever this morning as well as confusion. She reports increased weakness. Currently while she is febrile she feels more short of breath. Cough remains nonproductive. Patient has been ambulating to the bathroom. Exam Vital signs and Labs for Last 24 Hours: Temp Pulse Resp BP Pulse Ox 100.7 F H 72 18 122/62 91 L 09/02/20 08:00 09/02/20 08:01 09/02/20 08:00 09/02/20 08:00 09/02/20 08:00 Laboratory Results - last 24 hr 09/01/20 10:56: POC Glucose 181 H 09/01/20 16:39: POC Glucose 255 H 09/01/20 19:55: POC Glucose 385 H* 09/02/20 05:37: POC Glucose 136 H I & O for Last 24 hours: Intake & Output 08/30/20 08/31/20 09/01/20 09/02/20 11:59 11:59 11:59 11:59 Intake Total 1750 / 1750 360 / 360 Output Total 450 / 450 Balance 1300 / 1300 360 / 360 Weight 208 lb 7 oz 194 lb 12.8 oz - Constitutional mild distress (rigors) - *Routine Respiratory Exam Present: rales (Right upper lobe) - *Routine Cardiovascular Exam Present: irregular rhythm - *Routine Abdominal Exam Present: soft, normoactive bowel sounds. Absent: tenderness Assessment and Plan (1) Pneumonia due to COVID-19 virus Status: Acute Category: Medical Code(s): U07.1 - COVID-19; J12.89 - Other viral pneumonia (2) Right lower lobe pneumonia Status: Suspected Category: Medical Code(s): J18.9 - Pneumonia, unspecified organism (3) Atrial fibrillation Status: Chronic Qualifiers: Atrial fibrillation type: longstanding persistent Qualified Code(s): I48.11 - Longstanding persistent atrial fibrillation Category: Medical Code(s): I48.91 - Unspecified atrial fibrillation (4) Chronic congestive heart failure Status: Chronic Qualifiers: Heart failure type: combined systolic and diastolic Qualified Code(s): I50.42 - Chronic combined systolic (congestive) and diastolic (congestive) heart failure Category: Medical Code(s): I50.9 - Heart failure, unspecified (5) Diabetes mellitus type II, controlled Status: Chronic Qualifiers: 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: with ferry 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 supervisor use Diabetes mellitus complication status: without complication Qualified Code(s): E11.9 - Type 2 diabetes mellitus without complications; Z79.4 - termite treater (current) use of insulin Category: Medical Code(s): E11.9 - Type 2 diabetes mellitus without complications (6) HHD (hypertensive heart disease) Status: Chronic Qualifiers: Heart failure presence: with heart failure Heart failure type: diastolic Heart failure chronicity: chronic Qualified Code(s): I11.0 - Hypertensive heart disease with heart failure; I50.32 - Chronic diastolic (congestive) heart failure Category: Medical Code(s): I11.9 - Hypertensive heart disease without heart failure (7) Nonischemic cardiomyopathy Status: Chronic Category: Medical Code(s): I42.8 - Other cardiomyopathies (8) Altered mental state Status: Resolved Qualifiers: Altered mental status type: unspecified Qualified Code(s): R41.82 - Altered mental status, unspecified Category: Medical Code(s): R41.82 - Altered mental status, unspecified - Assessment and plan all Dx Assessment and Plan for all problems:: Await morning labs. If GFR will allow patient will be started on Remdesivir. Continue to keep O2 sats greater than 94%. Continue oral dexamethasone. Discussed prone breathing with patient who claims that laying on her stomach makes her sick . Encouraged her to try and explained the benefits of laying prone with COVID 19 pneumonia. Continue sliding scale insulin coverage for diabetes mellitus. DC manager cardiac cath
[2020-09-02 09:08] LABS: Basophils % 0.1 % (0.1-2.0); Eosinophils % 0.2 % (0.1-12.0); Hematocrit 38.4 % (37.0-47.0); Hemoglobin 12.4 g/dL (12.2-16.2); Lymphocytes # 1.4 K/mm3 (0.7-4.5); Lymphocytes % 13.7 % (10-50); Mean Corpuscular HGB Conc 32.4 g/dL (31.8-35.4); Mean Corpuscular Hemoglobin 33.4 pg (27.0-31.2); Mean Corpuscular Volume 102.9 fl (81-99); Mean Platelet Volume 8.1 fl (7.4-10.4); Monocytes # 0.4 K/mm3 (0.1-1.0); Monocytes % 4.4 % (1.7-9.3); Neutrophils # 8.1 K/mm3 (1.8-7.8); Neutrophils % 81.5 % (37.0-80.0); Platelet Count 218 K/mm3 (142-424); Red Blood Count 3.73 M/mm3 (4.20-5.40); Red Cell Distribution Width 14.8 % (11.5-17.5)
[2020-09-02 09:09] LABS: Chloride 104 mmol/L (98-107); Sodium 139 mmol/L (136-145)
[2020-09-02 09:10] LABS: Potassium 4.3 mmoL/L (3.5-5.1)
[2020-09-02 09:12] LABS: Alanine Aminotransferase 40 U/L (12-78); Albumin/Globulin Ratio 1.1 (1.1-1.8); Alkaline Phosphatase 161 U/L (38-126); Anion Gap 13.3 mEq/L (5-15); Aspartate Amino Transferase 48 U/L (14-36); Bilirubin,Total 0.4 mg/dl (0.2-1.3); Blood Urea Nitrogen 31 mg/dl (7-17); Carbon Dioxide 26 mmol/L (22.0-30.0); Estimated Glomerular Filt Rate 45 ml/min (>60); GFR (African American) 55 ML/MIN (>60); Globulin 3.6 g/dL (1.3-3.2); Glucose 208 mg/dl (74-100); Total Protein,Serum 7.6 g/dl (6.3-8.2)
[2020-09-02 09:14] LABS: Calcium 9.2 mg/dl (8.4-10.2); Creatinine Clearance Estimated 73 mL/min (50-200)
--- NOTE | 2020-09-02 10:29 | PC.NURSE ---
Pt is alert and oriented x 4. She is currently satting 96% on 2 L NC. She has had a fever this shift and shivering noted, it has improved since prn tylenol. Temp is now 99.3 oral and was 100.7 aux. Lung sounds cta/diminished. Non productive cough. Ambulates to bathroom, continent of B&B. CB in reach. Cardiac mx d/c. Ate 100% of breakfast. Mx continues this shift. Spoke with Dr. Galvan and he stated to reorder remdesivir.
[2020-09-02 11:03] LABS: POC Glucose,Bedside 276 (70-110)
--- NOTE | 2020-09-02 15:53 | PC.NURSE ---
Pt resting at this time. Has been up and ambulating to bathroom. has lied prone for short amt of time. Have encouraged to use incentive spirometer.
[2020-09-02 16:22] LABS: POC Glucose,Bedside 318 (70-110)
--- NOTE | 2020-09-02 16:58 | PC.NURSE ---
Made Dr. Galvan aware that pt was harder to arouse at this time, although will wake and drift marisabel to sleep. bp 97/55-104/58. He ordered to d/c gabapentin at this time and a 1000 ml bolus.
--- NOTE | 2020-09-02 18:05 | XR_ITS ---
PROCEDURE: XR CHEST PORTABLE Referring Doctor: Rad Galvan Patient Age:65Y CLINICAL HISTORY: RR labored labored respirations. COMPARISON: Compared to08/31/2020 and 06/13/2020 P CXR FINDINGS: Single AP semi-erect portable CXR. Compared to 08/31/2020 and 06/13/2020 P CXR Lungs, patchy bilateral pulmonary infiltrates which are clearly worse than on 06/13/2020 CXR. At right lung infiltrates are most pronounced particularly at perihilar region of but are seen extending peripherally throughout the right lung most notable extending peripherally at right mid lung and right base.. Left lung infiltrates are not quite as pronounced overall but are most notable at perihilar region and left suprahilar region extending superiorly.. The pacer obscures the left CP angle region . Of findings could reflect progressive covid 19 pulmonary disease, correlation required. Could not exclude element of CHF and mild vascular congestion as well given the central/perihilar vascular prominence . Pacer/defibrillator device overlying the left chest with atrial and ventricular leads similar to previous studies.. Mild cardiomegaly. No pleural effusion, no pneumothorax. IMPRESSION: Significant interval worsening of bilateral pulmonary infiltrates since 08/31/2020 Infiltrates more evident throughout right lung, more so than left on today's single P CXR.. Possible associated vascular congestion as well. Dictated by: Chance Parks MD 09/03/2020 10:33 Chance Parks MD in OV 09/03/2020 10:33
[2020-09-02 18:45] LABS: Basophils % 0.3 % (0.1-2.0); Eosinophils % 0.5 % (0.1-12.0); Hematocrit 34.7 % (37.0-47.0); Hemoglobin 11.2 g/dL (12.2-16.2); Lymphocytes # 0.6 K/mm3 (0.7-4.5); Lymphocytes % 9.8 % (10-50); Mean Corpuscular HGB Conc 32.3 g/dL (31.8-35.4); Mean Corpuscular Hemoglobin 33.4 pg (27.0-31.2); Mean Corpuscular Volume 103.3 fl (81-99); Mean Platelet Volume 8.1 fl (7.4-10.4); Monocytes # 0.3 K/mm3 (0.1-1.0); Monocytes % 4.8 % (1.7-9.3); Neutrophils # 4.8 K/mm3 (1.8-7.8); Neutrophils % 84.5 % (37.0-80.0); Platelet Count 176 K/mm3 (142-424); Red Blood Count 3.36 M/mm3 (4.20-5.40); White Blood Count 5.7 K/mm3 (4.8-10.8)
[2020-09-02 18:50] LABS: ABG HCO3 20.7 mmhg (22.0-26.0); ABG Oxygen Saturation 95 % (90-100); ABG PCO2 33.9 mmhg (35.0-45.0); ABG PO2 76.3 mmhg (80-100); ABG TCO2 21.8 mmhg (23-27); Allen's Test Y; Oxygen 2 %; Source R/R
--- NOTE | 2020-09-02 18:53 | PC.NURSE ---
Pt continued to be hard to arouse and sleepy, even with bolus. Have given x 1 bolus and he also ordered maintenance fluids 125ml/hr. Made Dr. Galvan aware of status and mouth breathing. He ordered labs and awaiting all of results, cxr and abg. He also ordered to turn 02 to 3 L. Temp also 96.1, applied blankets. Pt is more arousable at this time. Will give report to Mane Dean RN. CB in reach.
[2020-09-02 18:56] LABS: Anion Gap 12.2 mEq/L (5-15); Blood Urea Nitrogen 30 mg/dl (7-17); Calcium 8.3 mg/dl (8.4-10.2); Carbon Dioxide 23 mmol/L (22.0-30.0); Chloride 109 mmol/L (98-107); Creatinine Clearance Estimated 79 mL/min (50-200); Estimated Glomerular Filt Rate 50 ml/min (>60); GFR (African American) 61 ML/MIN (>60); Glucose 244 mg/dl (74-100); Potassium 4.2 mmoL/L (3.5-5.1); Sodium 140 mmol/L (136-145)
[2020-09-02 19:08] LABS: NT Pro Brain Natriuretic Pep. 4840 pg/mL (0-125)
[2020-09-02 19:18] LABS: Troponin I < 0.01 ng/ml (0.00-0.034)
--- NOTE | 2020-09-02 21:29 | PC.NURSE ---
Pt is alert and oriented x4 at this time. States she is very tired but easily arouses. Rechecked pt rectal temp, noted at 98.3. Skin is warm to touch and pink. Pt self admin bedside bath in room with staff standby assist per request. Bed sheets changed, two blankets reapplied for continued warmth. Will recheck temp. Independent oral care given. Denies SOA, tolerating 3 lnc well with o2 sats noted at 99%. Bilateral lungs noted clear t/o with diminished bases upon auscultation. Encouraged use of incentive spirometer. Demonstrated appropriate use. Ambulates independently to and from bathroom. No needs at this time.
[2020-09-03] VITALS (9 sets, daily range): BP systolic 102–133; BP diastolic 49–65; PULSE 70–76; RESP 18–24; TEMP 36.6–38.2; O2SAT 83–98; BMI 39.1
--- NOTE | 2020-09-03 02:22 | PC.NURSE ---
Pt temp elevated at 100.1 rectal upon 0000 rounds. Administered Tylenol per MAR x1. Pt noted shivering and shaky while lying in bed. Pt noted lying in bed with eyes closed upon 0100 rounds. Rechecked temp rectally upon 0200 rounds, noted at 100.2. Removed covers from pt while lying in bed, sheet applied. Will continue to monitor.
--- NOTE | 2020-09-03 04:13 | PC.NURSE ---
Pt has rested with eyes closed majority of shift. Noted alert and oriented x4 this am. Tolerated 3 lnc well with o2 sats ranging from 96-98%. Denies SOA. Dry non-productive cough noted intermittently. Adequate urine output noted. Urine bright yellow and clear. VSS. B/P noted hypotensive this am, 102/51. Help B/P PM meds per jan. Remains safe. Pt refused seizure pads for bed. Call light within reach. Will cont to monitor.
[2020-09-03 05:13] LABS: Basophils % 0.2 % (0.1-2.0); Eosinophils % 0.2 % (0.1-12.0); Hematocrit 31.4 % (37.0-47.0); Hemoglobin 10.3 g/dL (12.2-16.2); Lymphocytes # 0.7 K/mm3 (0.7-4.5); Lymphocytes % 18.2 % (10-50); Mean Corpuscular HGB Conc 32.9 g/dL (31.8-35.4); Mean Corpuscular Hemoglobin 33.7 pg (27.0-31.2); Mean Corpuscular Volume 102.3 fl (81-99); Monocytes # 0.3 K/mm3 (0.1-1.0); Monocytes % 8.2 % (1.7-9.3); Neutrophils # 2.8 K/mm3 (1.8-7.8); Neutrophils % 73.1 % (37.0-80.0); Platelet Count 168 K/mm3 (142-424); Red Blood Count 3.07 M/mm3 (4.20-5.40); Red Cell Distribution Width 14.8 % (11.5-17.5); White Blood Count 3.8 K/mm3 (4.8-10.8)
[2020-09-03 05:24] LABS: Alanine Aminotransferase 48 U/L (12-78); Albumin/Globulin Ratio 0.9 (1.1-1.8); Alkaline Phosphatase 130 U/L (38-126); Aspartate Amino Transferase 71 U/L (14-36); Bilirubin,Total 0.3 mg/dl (0.2-1.3); Blood Urea Nitrogen 25 mg/dl (7-17); Calcium 8.6 mg/dl (8.4-10.2); Carbon Dioxide 25 mmol/L (22.0-30.0); Chloride 112 mmol/L (98-107); Creatinine Clearance Estimated 85 mL/min (50-200); Estimated Glomerular Filt Rate 56 ml/min (>60); GFR (African American) 68 ML/MIN (>60); Globulin 3.3 g/dL (1.3-3.2); Sodium 142 mmol/L (136-145); Total Protein,Serum 6.3 g/dl (6.3-8.2)
[2020-09-03 05:37] LABS: Glucose 101 mg/dl (74-100)
--- NOTE | 2020-09-03 08:15 | HMH.ACPN2 ---
Internal Medicine - PN: Subj *Date: 09/03/20 *Time: 08:15 Interval history: Yesterday evening patient was noted to have apparent increased work of breathing. Repeat chest x-ray along with labs were performed. Chest x-ray showed worsening pneumonia although labs including ABG were relatively stable. Patient's flow was increased to 3 L/min on her nasal cannula. Nursing staff reports patient has been asleep most of the evening and night. Patient was able to have a bowel movement. She continues to have a cough with mild shortness of breath. This morning she is somewhat difficult to awaken. It takes several minutes to orient herself. Patient also tried prone breathing yesterday lasting only about 30 minutes before becoming uncomfortable. Patient was also able to start Remdesivir yesterday due to improvement in renal function. Exam Vital signs and Labs for Last 24 Hours: Temp Pulse Resp BP Pulse Ox 98.4 F 70 18 102/51 L 97 09/03/20 03:55 09/03/20 07:59 09/03/20 03:55 09/03/20 03:55 09/03/20 03:55 Laboratory Results - last 24 hr 09/02/20 08:35: WBC 10.0 D, RBC 3.73 L, Hgb 12.4, Hct 38.4, MCV 102.9 H, MCH 33.4 H, MCHC 32.4, RDW 14.8, Plt Count 218 D, MPV 8.1, Neut % (Auto) 81.5 H, Lymph % (Auto) 13.7, [place] % (Auto) 4.4, Eos % (Auto) 0.2, Baso % (Auto) 0.1, Neut # (Auto) 8.1 H, Lymph # (Auto) 1.4, [place] # (Auto) 0.4, Eos # (Auto) 0.0, Baso # (Auto) 0.0 09/02/20 08:35: Sodium 139, Potassium 4.3, Chloride 104, Carbon Dioxide 26, Anion Gap 13.3, BUN 31 H, Creatinine 1.20 H D, Estimated Creat Clear 73, Estimated GFR 45 L, Est GFR ( Amer) 55 L D, Glucose 208 H, Calcium 9.2 D, Total Bilirubin 0.4, AST 48 H, ALT 40 D, Alkaline Phosphatase 161 H, Total Protein 7.6, Albumin 4.0 D, Globulin 3.6 H, Albumin/Globulin Ratio 1.1 09/02/20 10:52: POC Glucose 276 H 09/02/20 16:07: POC Glucose 318 H* 09/02/20 18:20: WBC 5.7 D, RBC 3.36 L, Hgb 11.2 L, Hct 34.7 L, MCV 103.3 H, MCH 33.4 H, MCHC 32.3, RDW 15.0, Plt Count 176, MPV 8.1, Neut % (Auto) 84.5 H, Lymph % (Auto) 9.8 L, [place] % (Auto) 4.8, Eos % (Auto) 0.5, Baso % (Auto) 0.3, Neut # (Auto) 4.8, Lymph # (Auto) 0.6 L, [place] # (Auto) 0.3, Eos # (Auto) 0.0, Baso # (Auto) 0.0 09/02/20 18:20: Sodium 140, Potassium 4.2, Chloride 109 H, Carbon Dioxide 23, Anion Gap 12.2, BUN 30 H, Creatinine 1.10 H, Estimated Creat Clear 79, Estimated GFR 50 L, Est GFR ( Amer) 61, Glucose 244 H, Calcium 8.3 L, Troponin I < 0.01, NT-Pro-B Natriuret Pep 4840 H 09/02/20 18:49: Specimen Source R/r, O2 % 2, ABG pH 7.40, ABG pCO2 33.9 L, ABG pO2 76.3 L, ABG HCO3 20.7 L, ABG Total CO2 21.8 L, ABG O2 Saturation 95, ABG Base Excess -4.0 L, Momo Test Y 09/03/20 04:55: Digoxin 0.70 09/03/20 04:55: WBC 3.8 L D, RBC 3.07 L, Hgb 10.3 L, Hct 31.4 L, MCV 102.3 H, MCH 33.7 H, MCHC 32.9, RDW 14.8, Plt Count 168, MPV 8.0, Neut % (Auto) 73.1, Lymph % (Auto) 18.2, [place] % (Auto) 8.2, Eos % (Auto) 0.2, Baso % (Auto) 0.2, Neut # (Auto) 2.8, Lymph # (Auto) 0.7, [place] # (Auto) 0.3, Eos # (Auto) 0.0, Baso # (Auto) 0.0 09/03/20 04:55: Sodium 142, Potassium 4.0, Chloride 112 H, Carbon Dioxide 25, Anion Gap 9.0, BUN 25 H, Creatinine 1.00, Estimated Creat Clear 85, Estimated GFR 56 L, Est GFR ( Amer) 68, Glucose 101 H D, Calcium 8.6, Total Bilirubin 0.3, AST 71 H D, ALT 48, Alkaline Phosphatase 130 H, Total Protein 6.3, Albumin 3.0 L D, Globulin 3.3 H, Albumin/Globulin Ratio 0.9 L I & O for Last 24 hours: Intake & Output 08/31/20 09/01/20 09/02/20 09/03/20 11:59 11:59 11:59 11:59 Intake Total 1750 / 1750 360 / 360 700 / 700 Output Total 450 / 450 900 / 900 Balance 1300 / 1300 360 / 360 -200 / -200 Weight 208 lb 7 oz 211 lb 7 oz 207 lb 2 oz Microbiology Reports for the Last 24 Hours: Microbiology 08/31/20 16:55 Blood Blood Culture - Preliminary NO GROWTH AFTER 48 HOURS 08/31/20 16:55 Blood Blood Culture - Preliminary NO GROWTH AFTER 48 HOURS Leonel
--- NOTE | 2020-09-03 08:32 | PC.NURSE ---
patient sitting on side of bed eating breakfast.
--- NOTE | 2020-09-03 10:48 | HMH.ACPN ---
Internal Medicine - PN: Subj *Date: 09/03/20 *Time: 10:48 Exam Vital signs and Labs for Last 24 Hours: Temp Pulse Resp BP Pulse Ox 99.1 F 74 24 133/63 95 09/03/20 08:00 09/03/20 08:00 09/03/20 08:00 09/03/20 08:00 09/03/20 08:00 Laboratory Results - last 24 hr 09/02/20 10:52: POC Glucose 276 H 09/02/20 16:07: POC Glucose 318 H* 09/02/20 18:20: WBC 5.7 D, RBC 3.36 L, Hgb 11.2 L, Hct 34.7 L, MCV 103.3 H, MCH 33.4 H, MCHC 32.3, RDW 15.0, Plt Count 176, MPV 8.1, Neut % (Auto) 84.5 H, Lymph % (Auto) 9.8 L, [place] % (Auto) 4.8, Eos % (Auto) 0.5, Baso % (Auto) 0.3, Neut # (Auto) 4.8, Lymph # (Auto) 0.6 L, [place] # (Auto) 0.3, Eos # (Auto) 0.0, Baso # (Auto) 0.0 09/02/20 18:20: Sodium 140, Potassium 4.2, Chloride 109 H, Carbon Dioxide 23, Anion Gap 12.2, BUN 30 H, Creatinine 1.10 H, Estimated Creat Clear 79, Estimated GFR 50 L, Est GFR ( Amer) 61, Glucose 244 H, Calcium 8.3 L, Troponin I < 0.01, NT-Pro-B Natriuret Pep 4840 H 09/02/20 18:49: Specimen Source R/r, O2 % 2, ABG pH 7.40, ABG pCO2 33.9 L, ABG pO2 76.3 L, ABG HCO3 20.7 L, ABG Total CO2 21.8 L, ABG O2 Saturation 95, ABG Base Excess -4.0 L, Momo Test Y 09/03/20 04:55: Digoxin 0.70 09/03/20 04:55: WBC 3.8 L D, RBC 3.07 L, Hgb 10.3 L, Hct 31.4 L, MCV 102.3 H, MCH 33.7 H, MCHC 32.9, RDW 14.8, Plt Count 168, MPV 8.0, Neut % (Auto) 73.1, Lymph % (Auto) 18.2, [place] % (Auto) 8.2, Eos % (Auto) 0.2, Baso % (Auto) 0.2, Neut # (Auto) 2.8, Lymph # (Auto) 0.7, [place] # (Auto) 0.3, Eos # (Auto) 0.0, Baso # (Auto) 0.0 09/03/20 04:55: Sodium 142, Potassium 4.0, Chloride 112 H, Carbon Dioxide 25, Anion Gap 9.0, BUN 25 H, Creatinine 1.00, Estimated Creat Clear 85, Estimated GFR 56 L, Est GFR ( Amer) 68, Glucose 101 H D, Calcium 8.6, Total Bilirubin 0.3, AST 71 H D, ALT 48, Alkaline Phosphatase 130 H, Total Protein 6.3, Albumin 3.0 L D, Globulin 3.3 H, Albumin/Globulin Ratio 0.9 L I & O for Last 24 hours: Intake & Output 08/31/20 09/01/20 09/02/20 09/03/20 23:59 23:59 23:59 23:59 Intake Total 1750 / 1750 940 / 940 480 / 480 Output Total 250 / 250 200 / 200 400 / 700 1252 / 1252 Balance -250 / -250 1550 / 1550 540 / 240 -772 / -772 Weight 94.149 kg 95 kg 95.906 kg 93.95 kg Microbiology Reports for the Last 24 Hours: Microbiology 08/31/20 16:55 Blood Blood Culture - Preliminary NO GROWTH AFTER 48 HOURS 08/31/20 16:55 Blood Blood Culture - Preliminary NO GROWTH AFTER 48 HOURS Assessment and Plan (1) Pneumonia due to COVID-19 virus Status: Acute Category: Medical Code(s): U07.1 - COVID-19; J12.89 - Other viral pneumonia (2) Right lower lobe pneumonia Status: Suspected Category: Medical Code(s): J18.9 - Pneumonia, unspecified organism (3) Atrial fibrillation Status: Chronic Qualifiers: Atrial fibrillation type: longstanding persistent Qualified Code(s): I48.11 - Longstanding persistent atrial fibrillation Category: Medical Code(s): I48.91 - Unspecified atrial fibrillation (4) Chronic congestive heart failure Status: Chronic Qualifiers: Heart failure type: combined systolic and diastolic Qualified Code(s): I50.42 - Chronic combined systolic (congestive) and diastolic (congestive) heart failure Category: Medical Code(s): I50.9 - Heart failure, unspecified (5) Diabetes mellitus type II, controlled Status: Chronic Qualifiers: Diabetes mellitus longterm insulin use: with longterm use Diabetes mellitus complication status: without complication Qualified Code(s): E11.9 - Type 2 diabetes mellitus without complications; Z79.4 - correction (current) use of insulin Category: Medical Code(s): E11.9 - Type 2 diabetes mellitus without complications (6) HHD (hypertensive heart disease) Status: Chronic Qualifiers: Heart failure presence: with heart failure Heart failure type: diastolic Heart failure chronicity: chronic Qualified Code(s)
--- NOTE | 2020-09-03 16:54 | PC.NURSE ---
Pt alert and oriented and able to make needs known. RR even and unlabored currently. Denies distress or discomfort. Eating super at this time. Pharm VTE. CB in reach. Has ambulated to bathroom this shift. Has had couple very small amts of loose stools. Lungs cta, diminished franco. No tele at this time. ACHS fingersticks with ssi. Will cont to mx this shift. Afebrile orally at this time. Meds given per mar. Continues on 3 L NC and currently 96%. Have encouraged to lay prone to assist in breathing exercises.
--- NOTE | 2020-09-03 18:38 | PC.NURSE ---
Pt lying prone for approx 20 mins and tolerated well. Pt has used incentive spirometer as encouraged this shift as well.
[2020-09-03 19:39] LABS: POC Glucose,Bedside 102 (70-110)
[2020-09-03 19:39] LABS: POC Glucose,Bedside 209 (70-110)
[2020-09-03 19:39] LABS: POC Glucose,Bedside 243 (70-110)
[2020-09-03 19:39] LABS: POC Glucose,Bedside 178 (70-110)
[2020-09-03 20:23] LABS: POC Glucose,Bedside 334 (70-110)
--- NOTE | 2020-09-03 20:47 | PC.NURSE ---
She is sitting up in bed. States she just laid prone. She is watching TV at this time. She is A&Ox4 and is joking and talking with staff. Voiding per BR. Urine is yellow, clear. Reports her last BM was 09/03. Continues on 3LPM n/c. 83%RA. 95% on 3LPM n/c. Scattered crackles in right posterior lung. She denies SOA at rest. States she does not feel as weak as she did yesterday. Denies pain. Ambulated to the BR with steady gait.
[2020-09-04] VITALS (9 sets, daily range): BP systolic 117–133; BP diastolic 62–75; PULSE 70–72; RESP 16–20; TEMP 36.8–37.1; O2SAT 94–97; BMI 40.0
--- NOTE | 2020-09-04 02:41 | PC.NURSE ---
She had diarrhea at this time. Is wearing a brief that was brought by family for her inability to fully make it to the bathroom in time. Urine continues to be yellow, clear. She removes her O2 tubing when going to the bathroom. Extension is present on O2 tubing. Encouraged her to wear O2 while going the bathroom and educated on fall prevention r/t extra tubing.
[2020-09-04 04:51] LABS: Basophils % 0.1 % (0.1-2.0); Eosinophils % 0.6 % (0.1-12.0); Hematocrit 32.8 % (37.0-47.0); Hemoglobin 10.7 g/dL (12.2-16.2); Lymphocytes # 0.7 K/mm3 (0.7-4.5); Lymphocytes % 21.7 % (10-50); Mean Corpuscular HGB Conc 32.7 g/dL (31.8-35.4); Mean Corpuscular Hemoglobin 34.1 pg (27.0-31.2); Mean Platelet Volume 8.1 fl (7.4-10.4); Monocytes # 0.2 K/mm3 (0.1-1.0); Monocytes % 7.8 % (1.7-9.3); Neutrophils # 2.1 K/mm3 (1.8-7.8); Neutrophils % 69.7 % (37.0-80.0); Platelet Count 164 K/mm3 (142-424); Red Blood Count 3.16 M/mm3 (4.20-5.40); Red Cell Distribution Width 14.8 % (11.5-17.5)
[2020-09-04 05:01] LABS: Alanine Aminotransferase 96 U/L (12-78); Albumin/Globulin Ratio 0.9 (1.1-1.8); Alkaline Phosphatase 210 U/L (38-126); Aspartate Amino Transferase 116 U/L (14-36); Bilirubin,Total 0.3 mg/dl (0.2-1.3); Blood Urea Nitrogen 25 mg/dl (7-17); Calcium 8.5 mg/dl (8.4-10.2); Carbon Dioxide 25 mmol/L (22.0-30.0); Chloride 111 mmol/L (98-107); Creatinine Clearance Estimated 85 mL/min (50-200); Estimated Glomerular Filt Rate 56 ml/min (>60); GFR (African American) 68 ML/MIN (>60); Globulin 3.5 g/dL (1.3-3.2); Sodium 141 mmol/L (136-145); Total Protein,Serum 6.5 g/dl (6.3-8.2)
[2020-09-04 05:06] LABS: C-Reactive Protein 117.8 mg/L (0-4)
[2020-09-04 05:11] LABS: Anion Gap 9.2 mEq/L (5-15); Glucose 146 mg/dl (74-100); Potassium 4.2 mmoL/L (3.5-5.1)
--- NOTE | 2020-09-04 07:15 | HMH.ACPN2 ---
Internal Medicine - PN: Subj *Date: 09/04/20 *Time: 07:15 Interval history: Patient has no complaints this morning. Patient has had loose stools. O2 sat remained in the mid to high 90s on 3 L/min of oxygen via the nasal cannula. Nursing staff reports a desat to 83% when patient ambulated to the bathroom without oxygen. She still has some cough that remains nonproductive. Exam Vital signs and Labs for Last 24 Hours: Temp Pulse Resp BP Pulse Ox 98.6 F 70 19 120/66 96 09/04/20 04:00 09/04/20 04:00 09/04/20 04:00 09/04/20 04:00 09/04/20 04:00 Laboratory Results - last 24 hr 09/02/20 20:20: POC Glucose 178 H 09/03/20 04:54: POC Glucose 102 09/03/20 11:27: POC Glucose 209 H 09/03/20 16:10: POC Glucose 243 H 09/03/20 20:08: POC Glucose 334 H* 09/04/20 04:22: WBC 3.0 L, RBC 3.16 L, Hgb 10.7 L, Hct 32.8 L, MCV 104.0 H, MCH 34.1 H, MCHC 32.7, RDW 14.8, Plt Count 164, MPV 8.1, Neut % (Auto) 69.7, Lymph % (Auto) 21.7, [place] % (Auto) 7.8, Eos % (Auto) 0.6, Baso % (Auto) 0.1, Neut # (Auto) 2.1, Lymph # (Auto) 0.7, [place] # (Auto) 0.2, Eos # (Auto) 0.0, Baso # (Auto) 0.0 09/04/20 04:22: Sodium 141, Potassium 4.2, Chloride 111 H, Carbon Dioxide 25, Anion Gap 9.2, BUN 25 H, Creatinine 1.00, Estimated Creat Clear 85, Estimated GFR 56 L, Est GFR ( Amer) 68, Glucose 146 H D, Calcium 8.5, Total Bilirubin 0.3, AST 116 H D, ALT 96 H D, Alkaline Phosphatase 210 H, C-Reactive Protein 117.8 H, Total Protein 6.5, Albumin 3.0 L, Globulin 3.5 H, Albumin/Globulin Ratio 0.9 L I & O for Last 24 hours: Intake & Output 09/01/20 09/02/20 09/03/20 09/04/20 11:59 11:59 11:59 11:59 Intake Total 1750 / 1750 360 / 360 1060 / 1060 1320 / 1320 Output Total 450 / 450 1652 / 1652 1352 / 1352 Balance 1300 / 1300 360 / 360 -592 / -592 -32 / -32 Weight 208 lb 7 oz 211 lb 7 oz 207 lb 2 oz 212 lb 2 oz Narrative: Patient is in no distress and appears comfortable. She is sleeping when I entered the room and awakens easily. Oropharynx is moist. Lungs have rhonchi in the anterior right lung and posterior right base as well as rales and rhonchi in posterior left base. Heart has a regular rate and rhythm. Abdomen is obese, soft, nontender. Lower extremities have no edema. Assessment and Plan (1) Pneumonia due to COVID-19 virus Status: Acute Category: Medical Code(s): U07.1 - COVID-19; J12.89 - Other viral pneumonia CRP is risen. Repeat chest x-ray today. Clinically patient is stable. Encourage patient to try longer periods of prone breathing (2) Right lower lobe pneumonia Status: Suspected Category: Medical Code(s): J18.9 - Pneumonia, unspecified organism (3) Atrial fibrillation Status: Chronic Qualifiers: Atrial fibrillation type: longstanding persistent Qualified Code(s): I48.11 - Longstanding persistent atrial fibrillation Category: Medical Code(s): I48.91 - Unspecified atrial fibrillation (4) Chronic congestive heart failure Status: Chronic Qualifiers: Heart failure type: combined systolic and diastolic Qualified Code(s): I50.42 - Chronic combined systolic (congestive) and diastolic (congestive) heart failure Category: Medical Code(s): I50.9 - Heart failure, unspecified (5) Diabetes mellitus type II, controlled Status: Chronic Qualifiers: Diabetes mellitus residential insulin use: with residential use Diabetes mellitus complication status: without complication Qualified Code(s): E11.9 - Type 2 diabetes mellitus without complications; Z79.4 - technician terminal and repeater (current) use of insulin Category: Medical Code(s): E11.9 - Type 2 diabetes mellitus without complications Hyperglycemia persist secondary to steroid use. Continue sliding scale insulin coverage. (6) HHD (hypertensive heart disease) Status: Chronic Qualifiers: Heart failure presence: with heart failure Heart failure type: diastolic Heart failure chronicity: chronic Qualified Code(s): I11.0 - Hypertensive hea
--- NOTE | 2020-09-04 07:19 | XR_ITS ---
PROCEDURE: XR CHEST PORTABLE CLINICAL HISTORY: covid-19 pneumonia progress COMPARISON: No exams were available for comparison FINDINGS: Cardiomegaly. Biventricular and right atrial pacer wires are present from left subclavian approach. Bilateral pneumonia present in the right upper right lower and left upper lobe slightly worse in the right upper lobe. No effusions. No acute bony abnormalities. IMPRESSION: Slight worsening right upper lobe pneumonia with no change in the right lower lobe and left upper lobe pneumonia Dictated by: Momo Jorgensen MD 09/04/2020 08:10 Momo Jorgensen MD in [facility] 09/04/2020 08:10
--- NOTE | 2020-09-04 11:06 | ECG_ITS ---
APPROVED REPORT Exam: Resting ECG HR:70 bpm ECG Measurements Heart Rate 70 AXES QRSd 120 QRS 192 QT 428 T 10 QTc 462 Conclusion Wide QRS rhythm with fusion complexes Possible Right ventricular hypertrophy Anterolateral infarct, age undetermined Abnormal ECG Electronically signed by : Rad Branch, 09/04/2020 15:46:25
--- NOTE | 2020-09-04 11:10 | HMH.PULMPN ---
Internal Medicine - PN: Subj *Date: 09/04/20 *Time: 11:10 Interval history: No acute respiratory events overnight. Patient is complaining of nausea this morning Exam Vital signs and Labs for Last 24 Hours: Temp Pulse Resp BP Pulse Ox 98.3 F 70 20 126/65 96 09/04/20 07:17 09/04/20 08:03 09/04/20 07:17 09/04/20 07:17 09/04/20 08:00 Laboratory Results - last 24 hr 09/02/20 20:20: POC Glucose 178 H 09/03/20 04:54: POC Glucose 102 09/03/20 11:27: POC Glucose 209 H 09/03/20 16:10: POC Glucose 243 H 09/03/20 20:08: POC Glucose 334 H* 09/04/20 04:22: WBC 3.0 L, RBC 3.16 L, Hgb 10.7 L, Hct 32.8 L, MCV 104.0 H, MCH 34.1 H, MCHC 32.7, RDW 14.8, Plt Count 164, MPV 8.1, Neut % (Auto) 69.7, Lymph % (Auto) 21.7, [place] % (Auto) 7.8, Eos % (Auto) 0.6, Baso % (Auto) 0.1, Neut # (Auto) 2.1, Lymph # (Auto) 0.7, [place] # (Auto) 0.2, Eos # (Auto) 0.0, Baso # (Auto) 0.0 09/04/20 04:22: Sodium 141, Potassium 4.2, Chloride 111 H, Carbon Dioxide 25, Anion Gap 9.2, BUN 25 H, Creatinine 1.00, Estimated Creat Clear 85, Estimated GFR 56 L, Est GFR ( Amer) 68, Glucose 146 H D, Calcium 8.5, Total Bilirubin 0.3, AST 116 H D, ALT 96 H D, Alkaline Phosphatase 210 H, C-Reactive Protein 117.8 H, Total Protein 6.5, Albumin 3.0 L, Globulin 3.5 H, Albumin/Globulin Ratio 0.9 L I & O for Last 24 hours: Intake & Output 09/01/20 09/02/20 09/03/20 09/04/20 23:59 23:59 23:59 23:59 Intake Total 1750 / 1750 940 / 940 1680 / 1680 180 / 180 Output Total 200 / 200 400 / 700 2003 / 2003 1200 / 1200 Balance 1550 / 1550 540 / 240 -324 / -324 -1020 / -1020 Weight 209 lb 7.026 oz 211 lb 7 oz 207 lb 2 oz 212 lb 2 oz Radiology Reports for the Last 24 Hours: Chest x-ray from this morning showed worsening airspace disease especially in the upper lobes - Constitutional mild distress - *Routine HEENT Exam Head: Present: normocephalic, atraumatic - *Routine Neck Exam Present: supple. Absent: lymphadenopathy, thyromegaly - *Routine Respiratory Exam Present: rhonchi. Absent: accessory muscle use, patient mechanically ventilated - *Routine Cardiovascular Exam Present: Normal S1, Normal S2 - *Routine Abdominal Exam Present: soft, normoactive bowel sounds. Absent: tenderness, distended - *Routine Extremities Exam Present: edema. Absent: cyanosis, clubbing Assessment and Plan (1) Pneumonia due to COVID-19 virus Status: Acute Category: Medical Code(s): U07.1 - COVID-19; J12.89 - Other viral pneumonia (2) Right lower lobe pneumonia Status: Suspected Category: Medical Code(s): J18.9 - Pneumonia, unspecified organism (3) Atrial fibrillation Status: Chronic Qualifiers: Atrial fibrillation type: longstanding persistent Qualified Code(s): I48.11 - Longstanding persistent atrial fibrillation Category: Medical Code(s): I48.91 - Unspecified atrial fibrillation (4) Chronic congestive heart failure Status: Chronic Qualifiers: Heart failure type: combined systolic and diastolic Qualified Code(s): I50.42 - Chronic combined systolic (congestive) and diastolic (congestive) heart failure Category: Medical Code(s): I50.9 - Heart failure, unspecified (5) Diabetes mellitus type II, controlled Status: Chronic Qualifiers: Diabetes mellitus sprinkler fitter helper insulin use: with sprinkler fitter helper use Diabetes mellitus complication status: without complication Qualified Code(s): E11.9 - Type 2 diabetes mellitus without complications; Z79.4 - [facility] (current) use of insulin Category: Medical Code(s): E11.9 - Type 2 diabetes mellitus without complications (6) HHD (hypertensive heart disease) Status: Chronic Qualifiers: Heart failure presence: with heart failure Heart failure type: diastolic Heart failure chronicity: chronic Qualified Code(s): I11.0 - Hypertensive heart disease with heart failure; I50.32 - Chronic diastolic (congestive) heart failure Category: Medical Code(s): I11.9 - Hypertensive hea
--- NOTE | 2020-09-04 15:05 | DIET.NUTRFU ---
Pt with decreased PO intake- 30% yesterday-today, 75-100% prior. BG are moderately high-high at times (2 readings >300). Continuing to closely monitor BG/intakes, no diet changes at this time. Weight has fluctuated t/o stay- 5# weight gain reported from yesterday.
--- NOTE | 2020-09-04 15:42 | PC.NURSE ---
Patient is up to chair at this time, alert and oriented x4, perrla, pupils 2+, digital production artist equal, HR reg, pacemaker/defibrillator present, denies any chest pain at this time, lung sounds reveal scattered rhonchi in bl bases, remains on 3LNC, 2+ pitting edema noted to ble, abd soft and nontender, active bowel sounds in all quads, has had two loose stools this shift, voids per BR without difficulty, has had 1200ml urine out thus far this shift after receiving IV lasix, urine yellow and clear, ambulates with standby assist to BR, skin wdi, no s/s of distress noted at this time, vss, will continue to monitor.
[2020-09-04 17:01] LABS: POC Glucose,Bedside 251 (70-110)
[2020-09-04 17:01] LABS: POC Glucose,Bedside 291 (70-110)
[2020-09-04 20:32] LABS: POC Glucose,Bedside 280 (70-110)
[2020-09-05] VITALS (10 sets, daily range): BP systolic 120–137; BP diastolic 68–74; PULSE 67–70; RESP 18–20; TEMP 36.6–37.1; O2SAT 90–98; BMI 39.3
--- NOTE | 2020-09-05 01:13 | PC.NURSE ---
Pt was recently up to with staff SBA x1. Pt continued to wear her O2 during ambulation to & from the BR. However, pt desat to 87% for several min. Pt denied any SOA or dyspnea but stated she felt tired and weak. Pt states, feel like I've slept all day and night . Pt does not appear in any distress, is sitting up on side of bed eating a sherbert. Pt SaO2 rebound back to goal of > 94% about 5 min after ambulation. Current SaO2 98% on 3LPM, pt resting back in bed.
--- NOTE | 2020-09-05 05:21 | PC.NURSE ---
Addendum entered by Mirela Carias RN 09/05/20 05:51: Correction: Pt had a weight loss of 1.78kg (3.9 lbs). Original Note: Pt is A&Ox4 and has ambulated tot he BR & side of bed 1x this shift and tolerated fair d/t desat. Pt has denied any pain, N/V, or dyspnea t/o shift. Pt has had 1x episode of very small amount of loose stool. Pt has had small amount of PO intake (420ml) and voided 100ml of clear, ylw urine thus far. Pt had a weight loss of 1.58kg (3.48lbs) since yesterday am. Pt has slept t/o most of the shift but awakens easily to voice. On lung auscultation, scattered rhonchi (R > L) with diminished bases bilat. Pt has not coughed t/o shift, need for sputum and instruction reviewed with pt & speci cup at bedside. Pt continues O2 at 3LPM via NC, SaO2 94-99% during most of shift. Pt did has 1 instance of desat after ambulation to BR, see prev note. Resp rate unlabored, even, and rate of 18-20 this shift. ABD is soft & non-tender with active bowel sounds. No peripheral pitting edema, although trace edema to bilat ankles. Pulses WNL. Skin C/D/I. Heart rate low 70's t/o shift, regular rate & rhythm. Pacemaker/defibrillator present. VSS, call light within reach, will continue to monitor.
[2020-09-05 05:24] LABS: POC Glucose,Bedside 142 (70-110)
[2020-09-05 06:15] LABS: Chloride 109 mmol/L (98-107); Potassium 3.8 mmoL/L (3.5-5.1); Sodium 138 mmol/L (136-145)
[2020-09-05 06:17] LABS: Alanine Aminotransferase 72 U/L (12-78); Aspartate Amino Transferase 44 U/L (14-36); Blood Urea Nitrogen 27 mg/dl (7-17); Creatinine Clearance Estimated 86 mL/min (50-200); Estimated Glomerular Filt Rate 56 ml/min (>60); GFR (African American) 68 ML/MIN (>60)
[2020-09-05 06:18] LABS: Alkaline Phosphatase 155 U/L (38-126); Anion Gap 6.8 mEq/L (5-15); Bilirubin,Total 0.3 mg/dl (0.2-1.3); Calcium 8.5 mg/dl (8.4-10.2); Carbon Dioxide 26 mmol/L (22.0-30.0); Glucose 137 mg/dl (74-100)
[2020-09-05 06:19] LABS: Basophils % 0.2 % (0.1-2.0); Eosinophils % 0.5 % (0.1-12.0); Hematocrit 31.1 % (37.0-47.0); Hemoglobin 9.8 g/dL (12.2-16.2); Lymphocytes # 0.7 K/mm3 (0.7-4.5); Lymphocytes % 23.7 % (10-50); Mean Corpuscular HGB Conc 31.7 g/dL (31.8-35.4); Mean Corpuscular Hemoglobin 32.5 pg (27.0-31.2); Mean Corpuscular Volume 102.7 fl (81-99); Mean Platelet Volume 8.2 fl (7.4-10.4); Monocytes # 0.3 K/mm3 (0.1-1.0); Monocytes % 8.7 % (1.7-9.3); Neutrophils # 2.1 K/mm3 (1.8-7.8); Neutrophils % 66.9 % (37.0-80.0); Platelet Count 186 K/mm3 (142-424); Red Blood Count 3.02 M/mm3 (4.20-5.40); Red Cell Distribution Width 14.7 % (11.5-17.5); White Blood Count 3.1 K/mm3 (4.8-10.8)
--- NOTE | 2020-09-05 06:55 | PC.NURSE ---
Pt ambulated to with staff SBA, voided 350ml clear, ylw urine and moderate loose stool. Pt c/o nausea and SOA upon return to bedside. Pt having some dry coughing spells this am as well. Zofran administered per MAR & cool washcloth provided for comfort per pt request. Pt has remained afebrile t/o shift. Pt SaO2 was 89% and then quickly up to 95% after ambulation. Although during coughing spell pt SaO2 continues to fluctuate low 90's-95%. Increased pt to 4LPM and change sat probe to Left hand, pointer finger & current SaO2 96%. Pt continues to c/o mild SOA. Cole on floor and updated on pt events t/o this shift and current situation. also updated on CBC & CMP changes.
--- NOTE | 2020-09-05 07:04 | HMH.ACPN2 ---
Internal Medicine - PN: Subj *Date: 09/05/20 *Time: 07:04 Interval history: Patient developed nausea and chest discomfort yesterday morning which was relieved with a GI cocktail. She is continued to have periodic nausea. She reports cough and shortness of breath remain unchanged and are most noticeable on ambulating back and forth to the bathroom. She spent time sitting up in the chair yesterday. Exam Vital signs and Labs for Last 24 Hours: Temp Pulse Resp BP Pulse Ox 98.2 F 70 18 137/71 95 09/05/20 04:00 09/05/20 04:00 09/05/20 04:00 09/05/20 04:00 09/05/20 04:00 Laboratory Results - last 24 hr 09/04/20 12:05: POC Glucose 251 H 09/04/20 16:41: POC Glucose 291 H 09/04/20 20:21: POC Glucose 280 H 09/05/20 05:13: POC Glucose 142 H 09/05/20 05:15: WBC 3.1 L, RBC 3.02 L, Hgb 9.8 L, Hct 31.1 L, MCV 102.7 H, MCH 32.5 H, MCHC 31.7 L, RDW 14.7, Plt Count 186, MPV 8.2, Neut % (Auto) 66.9, Lymph % (Auto) 23.7, [place] % (Auto) 8.7, Eos % (Auto) 0.5, Baso % (Auto) 0.2, Neut # (Auto) 2.1, Lymph # (Auto) 0.7, [place] # (Auto) 0.3, Eos # (Auto) 0.0, Baso # (Auto) 0.0 09/05/20 05:15: Sodium 138, Potassium 3.8, Chloride 109 H, Carbon Dioxide 26, Anion Gap 6.8, BUN 27 H, Creatinine 1.00, Estimated Creat Clear 86, Estimated GFR 56 L, Est GFR ( Amer) 68, Glucose 137 H, Calcium 8.5, Total Bilirubin 0.3, AST 44 H D, ALT 72, Alkaline Phosphatase 155 H, Total Protein 6.0 L, Albumin 3.0 L, Globulin 3.0, Albumin/Globulin Ratio 1.0 L I & O for Last 24 hours: Intake & Output 10/10/09/03/20 09/04/20 09/05/20 11:59 11:59 11:59 11:59 Intake Total 360 / 360 1060 / 1060 1380 / 1380 798 / 798 Output Total 1652 / 1652 1951 / 1951 185 / 185 Balance 360 / 360 -592 / -592 -572 / -572 -1052 / -1052 Weight 211 lb 7 oz 207 lb 2 oz 212 lb 2 oz 208 lb 3.2 oz Narrative: Patient is laying in bed with a wet wash rag over her eyes and forehead. Lung exam has less rhonchi in the right upper lobe today. Heart has a regular rate and rhythm. Abdomen is soft and obese. Extremities have no edema Assessment and Plan (1) Pneumonia due to COVID-19 virus Status: Acute Category: Medical Code(s): U07.1 - COVID-19; J12.89 - Other viral pneumonia (2) Right lower lobe pneumonia Status: Suspected Category: Medical Code(s): J18.9 - Pneumonia, unspecified organism (3) Atrial fibrillation Status: Chronic Qualifiers: Atrial fibrillation type: longstanding persistent Qualified Code(s): I48.11 - Longstanding persistent atrial fibrillation Category: Medical Code(s): I48.91 - Unspecified atrial fibrillation (4) Chronic congestive heart failure Status: Chronic Qualifiers: Heart failure type: combined systolic and diastolic Qualified Code(s): I50.42 - Chronic combined systolic (congestive) and diastolic (congestive) heart failure Category: Medical Code(s): I50.9 - Heart failure, unspecified (5) Diabetes mellitus type II, controlled Status: Chronic Qualifiers: Diabetes mellitus intermediate manager insulin use: with shelter use Diabetes mellitus complication status: without complication Qualified Code(s): E11.9 - Type 2 diabetes mellitus without complications; Z79.4 - longterm (current) use of insulin Category: Medical Code(s): E11.9 - Type 2 diabetes mellitus without complications (6) HHD (hypertensive heart disease) Status: Chronic Qualifiers: Heart failure presence: with heart failure Heart failure type: diastolic Heart failure chronicity: chronic Qualified Code(s): I11.0 - Hypertensive heart disease with heart failure; I50.32 - Chronic diastolic (congestive) heart failure Category: Medical Code(s): I11.9 - Hypertensive heart disease without heart failure (7) Nonischemic cardiomyopathy Status: Chronic Category: Medical Code(s): I42.8 - Other cardiomyopathies (8) Altered mental state Status: Resolved Qualifiers: Altered mental status type: unspecified Qualif
[2020-09-05 11:18] LABS: POC Glucose,Bedside 172 (70-110)
--- NOTE | 2020-09-05 12:18 | HMH.PULMPN ---
Internal Medicine - PN: Subj *Date: 09/05/20 *Time: 12:18 Interval history: No acute respiratory events overnight Exam Vital signs and Labs for Last 24 Hours: Temp Pulse Resp BP Pulse Ox 98.2 F 70 19 122/69 98 09/05/20 08:00 09/05/20 08:42 09/05/20 08:00 09/05/20 08:00 09/05/20 08:00 Laboratory Results - last 24 hr 09/04/20 12:05: POC Glucose 251 H 09/04/20 16:41: POC Glucose 291 H 09/04/20 20:21: POC Glucose 280 H 09/05/20 05:13: POC Glucose 142 H 09/05/20 05:15: WBC 3.1 L, RBC 3.02 L, Hgb 9.8 L, Hct 31.1 L, MCV 102.7 H, MCH 32.5 H, MCHC 31.7 L, RDW 14.7, Plt Count 186, MPV 8.2, Neut % (Auto) 66.9, Lymph % (Auto) 23.7, [place] % (Auto) 8.7, Eos % (Auto) 0.5, Baso % (Auto) 0.2, Neut # (Auto) 2.1, Lymph # (Auto) 0.7, [place] # (Auto) 0.3, Eos # (Auto) 0.0, Baso # (Auto) 0.0 09/05/20 05:15: Sodium 138, Potassium 3.8, Chloride 109 H, Carbon Dioxide 26, Anion Gap 6.8, BUN 27 H, Creatinine 1.00, Estimated Creat Clear 86, Estimated GFR 56 L, Est GFR ( Amer) 68, Glucose 137 H, Calcium 8.5, Total Bilirubin 0.3, AST 44 H D, ALT 72, Alkaline Phosphatase 155 H, Total Protein 6.0 L, Albumin 3.0 L, Globulin 3.0, Albumin/Globulin Ratio 1.0 L 09/05/20 11:11: POC Glucose 172 H I & O for Last 24 hours: Intake & Output 09/02/20 09/03/20 09/04/20 09/05/20 23:59 23:59 23:59 23:59 Intake Total 940 / 940 1680 / 1680 860 / 978 358 / 358 Output Total 400 / 700 2004 / 2004 2600 / 2700 450 / 450 Balance 540 / 240 -324 / -324 -1740 / -1722 -92 / -92 Weight 211 lb 7 oz 207 lb 2 oz 212 lb 2 oz 208 lb 3.2 oz - Constitutional mild distress - *Routine HEENT Exam Head: Present: normocephalic, atraumatic - *Routine Neck Exam Present: supple. Absent: lymphadenopathy, thyromegaly - *Routine Respiratory Exam Present: decreased breath sounds, rhonchi. Absent: accessory muscle use, patient mechanically ventilated - *Routine Cardiovascular Exam Present: Normal S1, Normal S2 - *Routine Abdominal Exam Present: soft, normoactive bowel sounds. Absent: tenderness, distended - *Routine Extremities Exam Present: edema. Absent: cyanosis, clubbing Assessment and Plan (1) Pneumonia due to COVID-19 virus Status: Acute Category: Medical Code(s): U07.1 - COVID-19; J12.89 - Other viral pneumonia (2) Right lower lobe pneumonia Status: Suspected Category: Medical Code(s): J18.9 - Pneumonia, unspecified organism (3) Atrial fibrillation Status: Chronic Qualifiers: Atrial fibrillation type: longstanding persistent Qualified Code(s): I48.11 - Longstanding persistent atrial fibrillation Category: Medical Code(s): I48.91 - Unspecified atrial fibrillation (4) Chronic congestive heart failure Status: Chronic Qualifiers: Heart failure type: combined systolic and diastolic Qualified Code(s): I50.42 - Chronic combined systolic (congestive) and diastolic (congestive) heart failure Category: Medical Code(s): I50.9 - Heart failure, unspecified (5) Diabetes mellitus type II, controlled Status: Chronic Qualifiers: Diabetes mellitus him assistant insulin use: with him assistant use Diabetes mellitus complication status: without complication Qualified Code(s): E11.9 - Type 2 diabetes mellitus without complications; Z79.4 - hedge fund trader (current) use of insulin Category: Medical Code(s): E11.9 - Type 2 diabetes mellitus without complications (6) HHD (hypertensive heart disease) Status: Chronic Qualifiers: Heart failure presence: with heart failure Heart failure type: diastolic Heart failure chronicity: chronic Qualified Code(s): I11.0 - Hypertensive heart disease with heart failure; I50.32 - Chronic diastolic (congestive) heart failure Category: Medical Code(s): I11.9 - Hypertensive heart disease without heart failure (7) Nonischemic cardiomyopathy Status: Chronic Category: Medical Code(s): I42.8 - Other cardiomyopathies (8) Altered mental state Status: Resolved
--- NOTE | 2020-09-05 12:45 | PC.NURSE ---
THIS RN ALONG WITH ROD BROWNING PROVIDED STAND BY ASSIST FOR PATIENT TO AMBULATE TO RESTROOM. WHEN PATIENT RETURNED PATIENT'S O2 STATS WERE 90% ON 3L NC. 02 QUICKLY RECOVERED TO 94%. THIS RN ENCOURAGED PATIENT TO USE HER INCENTIVE SPIROMETER. AFTER COMPLETION O2 STATS WERE 97% ON 3L NC. THIS RN SET PATIENT'S NC ON 2.5L.
[2020-09-05 16:28] LABS: POC Glucose,Bedside 298 (70-110)
--- NOTE | 2020-09-05 16:35 | PC.NURSE ---
pt's room cleaned, mopped and straightened up while pt was self bathing in restroom. by Luis Fernando
--- NOTE | 2020-09-05 16:49 | PC.NURSE ---
PATIENT UP TO BATHROOM 2X THUS FAR. PATIENT TOLERATED AMBULATION WELL. THIS RN ASSESSED O2 STATS. PREVIOUS ASSESSMENT DOCUMENTED EARLIER. UPON RETURN TO CHAIR, O2 WAS AT 91% 2L NC. PATIENT WAS ABLE TO BATH SELF AND NOT FEEL SHORT OF BREATH. PATIENT UP TO CHAIR FOR MOST OF THIS RN SHIFT. NO OTHER CONCERNS AT THIS TIME.
--- NOTE | 2020-09-05 17:50 | PC.NURSE ---
THIS RN ASSISTED PATIENT TO RESTROOM AND INSTRUCTED PATIENT TO PULL CORD WHEN COMPLETE. PATIENT VERBALIZED AN UNDERSTANDING. PATIENT PULLED CORD. WHEN SRNA ENTERED RESTROOM PATIENT WAS STANDING UP. PATIENT STATED THAT SHE BUMPED HER HEAD ON THE WALL WHILE PULLING UP HER BRIEF. THIS RN ASSESSED PATIENT, NO NEW FINDINGS. MD NOTIFIED. NO NEW ORDERS RECEIVED.
[2020-09-06] VITALS (8 sets, daily range): BP systolic 118–138; BP diastolic 55–76; PULSE 70–74; RESP 16–20; TEMP 36.6–37.1; O2SAT 94–98; BMI 39.5
--- NOTE | 2020-09-06 03:05 | PC.NURSE ---
Pt has slept most of this shift. Oxygen 2L/min via nc continues to keep sats >93. VSS. No s/sx of distress/pain noted. At beginning of shift, pt c/o headache. Tylenol administered per orders with good effectiveness per pt. Pt cont to refuse use of seizures pads on bed for hx of seizures. Lung sounds remain clear, but diminished throughout. Heart rhythm remains irregular per auscultation.
[2020-09-06 06:52] LABS: Basophils % 0.4 % (0.1-2.0); Eosinophils % 0.6 % (0.1-12.0); Hematocrit 32.7 % (37.0-47.0); Hemoglobin 10.5 g/dL (12.2-16.2); Lymphocytes # 0.8 K/mm3 (0.7-4.5); Lymphocytes % 25.1 % (10-50); Mean Corpuscular HGB Conc 32.2 g/dL (31.8-35.4); Mean Corpuscular Hemoglobin 33.1 pg (27.0-31.2); Mean Corpuscular Volume 102.9 fl (81-99); Mean Platelet Volume 7.8 fl (7.4-10.4); Monocytes # 0.3 K/mm3 (0.1-1.0); Monocytes % 9.6 % (1.7-9.3); Neutrophils % 64.3 % (37.0-80.0); Platelet Count 200 K/mm3 (142-424); Red Blood Count 3.18 M/mm3 (4.20-5.40); Red Cell Distribution Width 14.7 % (11.5-17.5); White Blood Count 3.1 K/mm3 (4.8-10.8)
[2020-09-06 06:58] LABS: Chloride 109 mmol/L (98-107); Potassium 4.1 mmoL/L (3.5-5.1); Sodium 142 mmol/L (136-145)
[2020-09-06 07:00] LABS: Blood Urea Nitrogen 23 mg/dl (7-17); Creatinine Clearance Estimated 86 mL/min (50-200); Estimated Glomerular Filt Rate 63 ml/min (>60); GFR (African American) 77 ML/MIN (>60)
[2020-09-06 07:01] LABS: Alanine Aminotransferase 61 U/L (12-78); Alkaline Phosphatase 172 U/L (38-126); Anion Gap 9.1 mEq/L (5-15); Aspartate Amino Transferase 31 U/L (14-36); Bilirubin,Total 0.3 mg/dl (0.2-1.3); Carbon Dioxide 28 mmol/L (22.0-30.0); Globulin 3.1 g/dL (1.3-3.2); Total Protein,Serum 6.1 g/dl (6.3-8.2)
[2020-09-06 07:02] LABS: Calcium 8.7 mg/dl (8.4-10.2); Glucose 127 mg/dl (74-100)
--- NOTE | 2020-09-06 07:09 | PC.NURSE ---
Pt exhibits desaturations of lower 80's down to 81 on 4L/min via nc with any exertion including conversation.
--- NOTE | 2020-09-06 07:13 | XR_ITS ---
PROCEDURE: XR CHEST PORTABLE CLINICAL HISTORY: pneumonia progress COMPARISON: CT CTAC CTA-CHEST from 01/24/2016 CR XR CHEST PORTABLE from 08/31/2020 CR XR CHEST PORTABLE from 09/02/2020 CR XR CHEST PORTABLE from 09/04/2020 FINDINGS: Normal heart size with biventricular and right atrial pacemaker leads present. Right upper lobe infiltrate once again noted and has shown some improvement.. Right lower lobe and left upper lobe pneumonia have improved. No acute bony abnormalities. IMPRESSION: Improving bilateral pneumonia with some persistent infiltrate in the right upper lobe Dictated by: Momo Jorgensen MD 09/06/2020 08:39 Momo Jorgensen MD in [facility] 09/06/2020 08:39
--- NOTE | 2020-09-06 07:15 | HMH.ACPN2 ---
Internal Medicine - PN: Subj *Date: 09/06/20 *Time: 07:15 Interval history: Patient has no complaints this morning. Shortness of breath is not feel like it is improved in the last 24 hours but nor does it feel like it has worsened. Patient is ambulating within the room. She sat up in the chair most of the day yesterday. Cough persists. Diarrhea has improved. Exam Vital signs and Labs for Last 24 Hours: Temp Pulse Resp BP Pulse Ox 98.3 F 70 18 132/67 94 L 09/06/20 04:00 09/06/20 04:00 09/06/20 04:00 09/06/20 04:00 09/06/20 04:00 Laboratory Results - last 24 hr 09/05/20 11:11: POC Glucose 172 H 09/05/20 16:18: POC Glucose 298 H 09/06/20 06:00: WBC 3.1 L, RBC 3.18 L, Hgb 10.5 L, Hct 32.7 L, MCV 102.9 H, MCH 33.1 H, MCHC 32.2, RDW 14.7, Plt Count 200, MPV 7.8, Neut % (Auto) 64.3, Lymph % (Auto) 25.1, [place] % (Auto) 9.6 H, Eos % (Auto) 0.6, Baso % (Auto) 0.4, Neut # (Auto) 2.0, Lymph # (Auto) 0.8, [place] # (Auto) 0.3, Eos # (Auto) 0.0, Baso # (Auto) 0.0 I & O for Last 24 hours: Intake & Output 09/03/20 09/04/20 09/05/20 09/06/20 11:59 11:59 11:59 11:59 Intake Total 1060 / 1060 1380 / 1380 1038 / 1038 920 / 920 Output Total 1652 / 1652 1952 / 1952 1850 / 1850 1575 / 1575 Balance -592 / -592 -572 / -572 -812 / -812 -655 / -655 Weight 207 lb 2 oz 212 lb 2 oz 208 lb 3.2 oz 209 lb 9 oz Microbiology Reports for the Last 24 Hours: Microbiology 08/31/20 16:55 Blood Blood Culture - Final NO GROWTH AFTER 5 DAYS 08/31/20 16:55 Blood Blood Culture - Final NO GROWTH AFTER 5 DAYS Narrative: Patient awakens easily and is alert. She shows no signs of respiratory distress. Lung exam reveals distant breath sounds with faint rales in the bases as well as in the right upper lobe of the lung both anteriorly and posteriorly. Heart has a regular rate and rhythm. Abdomen is soft. Extremities have some trace fabián-ankle edema. Assessment and Plan (1) Pneumonia due to COVID-19 virus Status: Acute Category: Medical Code(s): U07.1 - COVID-19; J12.89 - Other viral pneumonia (2) Right lower lobe pneumonia Status: Suspected Category: Medical Code(s): J18.9 - Pneumonia, unspecified organism (3) Atrial fibrillation Status: Chronic Qualifiers: Atrial fibrillation type: longstanding persistent Qualified Code(s): I48.11 - Longstanding persistent atrial fibrillation Category: Medical Code(s): I48.91 - Unspecified atrial fibrillation (4) Chronic congestive heart failure Status: Chronic Qualifiers: Heart failure type: combined systolic and diastolic Qualified Code(s): I50.42 - Chronic combined systolic (congestive) and diastolic (congestive) heart failure Category: Medical Code(s): I50.9 - Heart failure, unspecified (5) Diabetes mellitus type II, controlled Status: Chronic Qualifiers: Diabetes mellitus nursing home insulin use: with intermodal owner operator truck driver use Diabetes mellitus complication status: without complication Qualified Code(s): E11.9 - Type 2 diabetes mellitus without complications; Z79.4 - [facility] (current) use of insulin Category: Medical Code(s): E11.9 - Type 2 diabetes mellitus without complications (6) HHD (hypertensive heart disease) Status: Chronic Qualifiers: Heart failure presence: with heart failure Heart failure type: diastolic Heart failure chronicity: chronic Qualified Code(s): I11.0 - Hypertensive heart disease with heart failure; I50.32 - Chronic diastolic (congestive) heart failure Category: Medical Code(s): I11.9 - Hypertensive heart disease without heart failure (7) Nonischemic cardiomyopathy Status: Chronic Category: Medical Code(s): I42.8 - Other cardiomyopathies (8) Altered mental state Status: Resolved Qualifiers: Altered mental status type: unspecified Qualified Code(s): R41.82 - Altered mental status, unspecified Category: Medical Co
--- NOTE | 2020-09-06 08:00 | PC.NURSE ---
pt refuses seizure pads
--- NOTE | 2020-09-06 10:07 | HMH.PULMPN ---
Internal Medicine - PN: Subj *Date: 09/06/20 *Time: 10:07 Interval history: No acute respiratory events overnight. Patient oxygen requirements improved since yesterday. Exam Vital signs and Labs for Last 24 Hours: Temp Pulse Resp BP Pulse Ox 98.0 F 70 20 129/70 97 09/06/20 07:48 09/06/20 08:24 09/06/20 07:48 09/06/20 07:48 09/06/20 08:00 Laboratory Results - last 24 hr 09/05/20 11:11: POC Glucose 172 H 09/05/20 16:18: POC Glucose 298 H 09/06/20 06:00: WBC 3.1 L, RBC 3.18 L, Hgb 10.5 L, Hct 32.7 L, MCV 102.9 H, MCH 33.1 H, MCHC 32.2, RDW 14.7, Plt Count 200, MPV 7.8, Neut % (Auto) 64.3, Lymph % (Auto) 25.1, [place] % (Auto) 9.6 H, Eos % (Auto) 0.6, Baso % (Auto) 0.4, Neut # (Auto) 2.0, Lymph # (Auto) 0.8, [place] # (Auto) 0.3, Eos # (Auto) 0.0, Baso # (Auto) 0.0 09/06/20 06:00: Sodium 142, Potassium 4.1, Chloride 109 H, Carbon Dioxide 28, Anion Gap 9.1, BUN 23 H, Creatinine 0.90, Estimated Creat Clear 86, Estimated GFR 63, Est GFR ( Amer) 77, Glucose 127 H, Calcium 8.7, Total Bilirubin 0.3, AST 31 D, ALT 61, Alkaline Phosphatase 172 H, Total Protein 6.1 L, Albumin 3.0 L, Globulin 3.1, Albumin/Globulin Ratio 1.0 L I & O for Last 24 hours: Intake & Output 09/03/20 09/04/20 09/05/20 09/06/20 23:59 23:59 23:59 23:59 Intake Total 1680 / 1680 860 / 978 1278 / 1278 240 / 240 Output Total 2003 2600 / 2700 1150 / 1425 875 / 875 Balance -324 / -324 -1740 / -1722 128 / -147 -635 / -635 Weight 207 lb 2 oz 212 lb 2 oz 208 lb 3.2 oz 209 lb 9 oz Microbiology Reports for the Last 24 Hours: Microbiology 08/31/20 16:55 Blood Blood Culture - Final NO GROWTH AFTER 5 DAYS 08/31/20 16:55 Blood Blood Culture - Final NO GROWTH AFTER 5 DAYS Radiology Reports for the Last 24 Hours: Chest x-ray showed bilateral improving pulmonary infiltrates. - *Routine HEENT Exam Head: Present: normocephalic, atraumatic - *Routine Neck Exam Present: supple. Absent: lymphadenopathy, thyromegaly - *Routine Respiratory Exam Present: rhonchi. Absent: accessory muscle use, patient mechanically ventilated - *Routine Cardiovascular Exam Present: Normal S1, Normal S2 - *Routine Abdominal Exam Present: normoactive bowel sounds. Absent: tenderness, distended - *Routine Extremities Exam Present: edema. Absent: cyanosis, clubbing Assessment and Plan (1) Pneumonia due to COVID-19 virus Status: Acute Category: Medical Code(s): U07.1 - COVID-19; J12.89 - Other viral pneumonia (2) Right lower lobe pneumonia Status: Suspected Category: Medical Code(s): J18.9 - Pneumonia, unspecified organism (3) Atrial fibrillation Status: Chronic Qualifiers: Atrial fibrillation type: longstanding persistent Qualified Code(s): I48.11 - Longstanding persistent atrial fibrillation Category: Medical Code(s): I48.91 - Unspecified atrial fibrillation (4) Chronic congestive heart failure Status: Chronic Qualifiers: Heart failure type: combined systolic and diastolic Qualified Code(s): I50.42 - Chronic combined systolic (congestive) and diastolic (congestive) heart failure Category: Medical Code(s): I50.9 - Heart failure, unspecified (5) Diabetes mellitus type II, controlled Status: Chronic Qualifiers: Diabetes mellitus care home insulin use: with care home use Diabetes mellitus complication status: without complication Qualified Code(s): E11.9 - Type 2 diabetes mellitus without complications; Z79.4 - intermediate designer (current) use of insulin Category: Medical Code(s): E11.9 - Type 2 diabetes mellitus without complications (6) HHD (hypertensive heart disease) Status: Chronic Qualifiers: Heart failure presence: with heart failure Heart failure type: diastolic Heart failure chronicity: chronic Qualified Code(s): I11.0 - Hypertensive heart disease with heart failure; I50.32 - Chronic diastolic (congestive) heart keely
--- NOTE | 2020-09-06 14:29 | PC.NURSE ---
PT ROOM WAS CLEANED, MOPED, BATHROOM AND TOILET WERE SANITIZED WELL. TRES 09/06
--- NOTE | 2020-09-06 21:03 | PC.NURSE ---
She is A&Ox4. Has ambulated to the BR with steady gait. Reports SOA with exertion and sometimes at rest. Using incentive spirometer as encouraged. Continues on 2LPM n/c. Received PRN medication for nausea and a headache. No BM this shift. Reports her last BM was on 09/05. 2+ non-pitting edema to bilateral ankles. She states her legs were in the dependent position for a while today. Seizure pads refused.
[2020-09-07] VITALS (12 sets, daily range): BP systolic 113–138; BP diastolic 65–75; PULSE 66–71; RESP 18–20; TEMP 36.8–37.1; O2SAT 88–97; BMI 39.2
[2020-09-07 06:24] LABS: Basophils % 0.4 % (0.1-2.0); Eosinophils % 0.7 % (0.1-12.0); Hematocrit 33.1 % (37.0-47.0); Hemoglobin 10.7 g/dL (12.2-16.2); Lymphocytes # 0.7 K/mm3 (0.7-4.5); Lymphocytes % 19.9 % (10-50); Mean Corpuscular HGB Conc 32.3 g/dL (31.8-35.4); Mean Corpuscular Volume 102.2 fl (81-99); Mean Platelet Volume 8.5 fl (7.4-10.4); Monocytes # 0.3 K/mm3 (0.1-1.0); Monocytes % 9.4 % (1.7-9.3); Neutrophils # 2.5 K/mm3 (1.8-7.8); Neutrophils % 69.5 % (37.0-80.0); Platelet Count 247 K/mm3 (142-424); Red Blood Count 3.24 M/mm3 (4.20-5.40); Red Cell Distribution Width 14.4 % (11.5-17.5); White Blood Count 3.5 K/mm3 (4.8-10.8)
[2020-09-07 06:55] LABS: Chloride 107 mmol/L (98-107); Potassium 4.2 mmoL/L (3.5-5.1); Sodium 139 mmol/L (136-145)
[2020-09-07 06:57] LABS: Blood Urea Nitrogen 20 mg/dl (7-17); Creatinine Clearance Estimated 86 mL/min (50-200); Estimated Glomerular Filt Rate 72 ml/min (>60); GFR (African American) 88 ML/MIN (>60)
[2020-09-07 06:58] LABS: Alanine Aminotransferase 50 U/L (12-78); Albumin Level 2.9 g/dl (3.5-5.0); Albumin/Globulin Ratio 0.9 (1.1-1.8); Alkaline Phosphatase 154 U/L (38-126); Anion Gap 8.2 mEq/L (5-15); Aspartate Amino Transferase 24 U/L (14-36); Bilirubin,Total 0.4 mg/dl (0.2-1.3); Calcium 8.8 mg/dl (8.4-10.2); Carbon Dioxide 28 mmol/L (22.0-30.0); Globulin 3.1 g/dL (1.3-3.2); Glucose 163 mg/dl (74-100)
--- NOTE | 2020-09-07 07:00 | HMH.ACPN2 ---
Internal Medicine - PN: Subj *Date: 09/07/20 *Time: 07:00 Interval history: Patient had no problems yesterday and overnight. She reports improvement in dyspnea while at rest. She still becomes short of breath when ambulating. She denies chest pain. Exam Vital signs and Labs for Last 24 Hours: Temp Pulse Resp BP Pulse Ox 98.8 F 66 20 138/75 96 09/07/20 00:00 09/07/20 04:00 09/06/20 20:00 09/07/20 04:00 09/07/20 04:00 Laboratory Results - last 24 hr 09/06/20 06:00: Sodium 142, Potassium 4.1, Chloride 109 H, Carbon Dioxide 28, Anion Gap 9.1, BUN 23 H, Creatinine 0.90, Estimated Creat Clear 86, Estimated GFR 63, Est GFR ( Amer) 77, Glucose 127 H, Calcium 8.7, Total Bilirubin 0.3, AST 31 D, ALT 61, Alkaline Phosphatase 172 H, Total Protein 6.1 L, Albumin 3.0 L, Globulin 3.1, Albumin/Globulin Ratio 1.0 L 09/07/20 05:10: WBC 3.5 L, RBC 3.24 L, Hgb 10.7 L, Hct 33.1 L, MCV 102.2 H, MCH 33.0 H, MCHC 32.3, RDW 14.4, Plt Count 247, MPV 8.5, Neut % (Auto) 69.5, Lymph % (Auto) 19.9, [place] % (Auto) 9.4 H, Eos % (Auto) 0.7, Baso % (Auto) 0.4, Neut # (Auto) 2.5, Lymph # (Auto) 0.7, [place] # (Auto) 0.3, Eos # (Auto) 0.0, Baso # (Auto) 0.0 09/07/20 06:40: Sodium 139, Potassium 4.2, Chloride 107 I & O for Last 24 hours: Intake & Output 09/04/20 09/05/20 09/06/20 09/07/20 11:59 11:59 11:59 11:59 Intake Total 1380 / 1380 1038 / 1038 1240 / 1240 670 / 670 Output Total 1951 / 1951 1850 / 1850 1725 / 1725 1650 / 1650 Balance -572 / -572 -812 / -812 -485 / -485 -980 / -980 Weight 212 lb 2 oz 208 lb 3.2 oz 209 lb 9 oz 207 lb 12.8 oz Narrative: Vital signs are stable. Lowest O2 sat is 88% on room air. She looks well. Lungs: Rales right base. Heart irregular rate and rhythm. Abdomen soft and nontender. Assessment and Plan (1) Pneumonia due to COVID-19 virus Status: Acute Category: Medical Code(s): U07.1 - COVID-19; J12.89 - Other viral pneumonia (2) Right lower lobe pneumonia Status: Suspected Category: Medical Code(s): J18.9 - Pneumonia, unspecified organism (3) Atrial fibrillation Status: Chronic Qualifiers: Atrial fibrillation type: longstanding persistent Qualified Code(s): I48.11 - Longstanding persistent atrial fibrillation Category: Medical Code(s): I48.91 - Unspecified atrial fibrillation (4) Chronic congestive heart failure Status: Chronic Qualifiers: Heart failure type: combined systolic and diastolic Qualified Code(s): I50.42 - Chronic combined systolic (congestive) and diastolic (congestive) heart failure Category: Medical Code(s): I50.9 - Heart failure, unspecified (5) Diabetes mellitus type II, controlled Status: Chronic Qualifiers: Diabetes mellitus terminal block assembler insulin use: with terminal block assembler use Diabetes mellitus complication status: without complication Qualified Code(s): E11.9 - Type 2 diabetes mellitus without complications; Z79.4 - terminal block assembler (current) use of insulin Category: Medical Code(s): E11.9 - Type 2 diabetes mellitus without complications (6) HHD (hypertensive heart disease) Status: Chronic Qualifiers: Heart failure presence: with heart failure Heart failure type: diastolic Heart failure chronicity: chronic Qualified Code(s): I11.0 - Hypertensive heart disease with heart failure; I50.32 - Chronic diastolic (congestive) heart failure Category: Medical Code(s): I11.9 - Hypertensive heart disease without heart failure (7) Nonischemic cardiomyopathy Status: Chronic Category: Medical Code(s): I42.8 - Other cardiomyopathies (8) Altered mental state Status: Resolved Qualifiers: Altered mental status type: unspecified Qualified Code(s): R41.82 - Altered mental status, unspecified Category: Medical Code(s): R41.82 - Altered mental status, unspecified (9) Transaminitis Status: Acute Category: Medical Code(s): R74.01 - Elevation of levels of liver transaminase levels - Assessment a
--- NOTE | 2020-09-07 07:35 | HMH.PHAINT ---
DR. CONROY DOES NOT WANT TO CONTINUE REMDESIVIR AT THIS TIME. PLAN ON DISCHARGING PATIENT TOMORROW. -KENDRA ANAYA, NESTORD
--- NOTE | 2020-09-07 08:07 | HMH.ACPN ---
Internal Medicine - PN: Subj *Date: 09/07/20 *Time: 08:07 Exam Vital signs and Labs for Last 24 Hours: Temp Pulse Resp BP Pulse Ox 98.3 F 71 18 113/66 97 09/07/20 07:49 09/07/20 07:49 09/07/20 07:49 09/07/20 07:49 09/07/20 07:49 Laboratory Results - last 24 hr 09/07/20 05:10: WBC 3.5 L, RBC 3.24 L, Hgb 10.7 L, Hct 33.1 L, MCV 102.2 H, MCH 33.0 H, MCHC 32.3, RDW 14.4, Plt Count 247, MPV 8.5, Neut % (Auto) 69.5, Lymph % (Auto) 19.9, [place] % (Auto) 9.4 H, Eos % (Auto) 0.7, Baso % (Auto) 0.4, Neut # (Auto) 2.5, Lymph # (Auto) 0.7, [place] # (Auto) 0.3, Eos # (Auto) 0.0, Baso # (Auto) 0.0 09/07/20 06:40: Sodium 139, Potassium 4.2, Chloride 107, Carbon Dioxide 28, Anion Gap 8.2, BUN 20 H, Creatinine 0.80, Estimated Creat Clear 86, Estimated GFR 72, Est GFR ( Amer) 88, Glucose 163 H, Calcium 8.8, Total Bilirubin 0.4, AST 24, ALT 50, Alkaline Phosphatase 154 H, Total Protein 6.0 L, Albumin 2.9 L, Globulin 3.1, Albumin/Globulin Ratio 0.9 L I & O for Last 24 hours: Intake & Output 09/04/20 09/05/20 09/06/20 09/07/20 23:59 23:59 23:59 23:59 Intake Total 860 / 978 1278 / 1278 980 / 990 Output Total 2600 / 2700 1150 / 1425 2275 / 2275 400 / 400 Balance -1740 / -1722 128 / -147 -1295 / -1285 -390 / -390 Weight 96.218 kg 94.438 kg 95.056 kg 94.256 kg Assessment and Plan (1) Pneumonia due to COVID-19 virus Status: Acute Category: Medical Code(s): U07.1 - COVID-19; J12.89 - Other viral pneumonia (2) Right lower lobe pneumonia Status: Suspected Category: Medical Code(s): J18.9 - Pneumonia, unspecified organism (3) Atrial fibrillation Status: Chronic Qualifiers: Atrial fibrillation type: longstanding persistent Qualified Code(s): I48.11 - Longstanding persistent atrial fibrillation Category: Medical Code(s): I48.91 - Unspecified atrial fibrillation (4) Chronic congestive heart failure Status: Chronic Qualifiers: Heart failure type: combined systolic and diastolic Qualified Code(s): I50.42 - Chronic combined systolic (congestive) and diastolic (congestive) heart failure Category: Medical Code(s): I50.9 - Heart failure, unspecified (5) Diabetes mellitus type II, controlled Status: Chronic Qualifiers: 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 mellitus 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 exterminator 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 insulin use: with usp use Diabetes mellitus complication status: without complication Qualified Code(s): E11.9 - Type 2 diabetes mellitus without complications; Z79.4 - [facility] (current) use of insulin Category: Medical Code(s): E11.9 - Type 2 diabetes mellitus without complications (6) HHD (hypertensive heart disease) Status: Chronic Qualifiers: Heart failure presence: with heart failure Heart failure type: diastolic Heart failure chronicity: chronic Qualified Code(s): I11.0 - Hypertensive heart disease with heart failure; I50.32 - Chronic diastolic (congestive) heart failure Category: Medical Code(s): I11.9 - Hypertensive heart disease without heart failure (7) Nonischemic cardiomyopathy Status: Chronic Category: Medical Code(s): I42.8 - Other cardiomyopathies (8) Altered mental state Status: Resolved Qualifiers: Altered mental status type: unspecified Qualified Code(s): R41.82 - Altered mental status, unspecified Category: Medical Code(s): R41.82 - Altered mental status, unspecified (9) Transaminitis Status: Acute Category: Medical Code(s): R74.01 - Elevation of levels of liver transaminase levels The patient's infection will respond to the chosen ABx?: Yes (EMPIRIC THERAPY FOR PNEUMO) Is the patient receiving the right drug, dose, and route?: Yes Could a more targeted ABx be ordered?: No (SPUTUM SPECIMEN STILL NEEDS TO BE OBTAINED)
--- NOTE | 2020-09-07 08:22 | PC.NURSE ---
Pt has refused seizure pads
--- NOTE | 2020-09-07 10:08 | HMH.PULMPN ---
Internal Medicine - PN: Subj *Date: 09/07/20 *Time: 10:08 Interval history: No acute respiratory event overnight, patient respiratory status remained stable Exam Vital signs and Labs for Last 24 Hours: Temp Pulse Resp BP Pulse Ox 98.3 F 71 18 113/66 97 09/07/20 07:49 09/07/20 08:55 09/07/20 07:49 09/07/20 07:49 09/07/20 07:49 Laboratory Results - last 24 hr 09/07/20 05:10: WBC 3.5 L, RBC 3.24 L, Hgb 10.7 L, Hct 33.1 L, MCV 102.2 H, MCH 33.0 H, MCHC 32.3, RDW 14.4, Plt Count 247, MPV 8.5, Neut % (Auto) 69.5, Lymph % (Auto) 19.9, [place] % (Auto) 9.4 H, Eos % (Auto) 0.7, Baso % (Auto) 0.4, Neut # (Auto) 2.5, Lymph # (Auto) 0.7, [place] # (Auto) 0.3, Eos # (Auto) 0.0, Baso # (Auto) 0.0 09/07/20 06:40: Sodium 139, Potassium 4.2, Chloride 107, Carbon Dioxide 28, Anion Gap 8.2, BUN 20 H, Creatinine 0.80, Estimated Creat Clear 86, Estimated GFR 72, Est GFR ( Amer) 88, Glucose 163 H, Calcium 8.8, Total Bilirubin 0.4, AST 24, ALT 50, Alkaline Phosphatase 154 H, Total Protein 6.0 L, Albumin 2.9 L, Globulin 3.1, Albumin/Globulin Ratio 0.9 L I & O for Last 24 hours: Intake & Output 09/04/20 09/05/20 09/06/20 09/07/20 23:59 23:59 23:59 23:59 Intake Total 860 / 978 1278 / 1278 980 / 990 490 / 490 Output Total 2600 / 2700 1150 / 1425 2275 / 2275 400 / 400 Balance -1740 / -1722 128 / -147 -1295 / -1285 90 / 90 Weight 212 lb 2 oz 208 lb 3.2 oz 209 lb 9 oz 207 lb 12.8 oz - Constitutional no acute distress, mild distress - *Routine HEENT Exam Head: Present: normocephalic, atraumatic - *Routine Neck Exam Present: supple. Absent: lymphadenopathy, thyromegaly - *Routine Respiratory Exam Present: crackles. Absent: accessory muscle use, patient mechanically ventilated - *Routine Cardiovascular Exam Present: Normal S1, Normal S2 - *Routine Abdominal Exam Present: soft. Absent: tenderness, distended - *Routine Extremities Exam Present: edema. Absent: cyanosis, clubbing Assessment and Plan (1) Pneumonia due to COVID-19 virus Status: Acute Category: Medical Code(s): U07.1 - COVID-19; J12.89 - Other viral pneumonia (2) Right lower lobe pneumonia Status: Suspected Category: Medical Code(s): J18.9 - Pneumonia, unspecified organism (3) Atrial fibrillation Status: Chronic Qualifiers: Atrial fibrillation type: longstanding persistent Qualified Code(s): I48.11 - Longstanding persistent atrial fibrillation Category: Medical Code(s): I48.91 - Unspecified atrial fibrillation (4) Chronic congestive heart failure Status: Chronic Qualifiers: Heart failure type: combined systolic and diastolic Qualified Code(s): I50.42 - Chronic combined systolic (congestive) and diastolic (congestive) heart failure Category: Medical Code(s): I50.9 - Heart failure, unspecified (5) Diabetes mellitus type II, controlled Status: Chronic Qualifiers: Diabetes mellitus senior care insulin use: with manager terminal use Diabetes mellitus complication status: without complication Qualified Code(s): E11.9 - Type 2 diabetes mellitus without complications; Z79.4 - detention (current) use of insulin Category: Medical Code(s): E11.9 - Type 2 diabetes mellitus without complications (6) HHD (hypertensive heart disease) Status: Chronic Qualifiers: Heart failure presence: with heart failure Heart failure type: diastolic Heart failure chronicity: chronic Qualified Code(s): I11.0 - Hypertensive heart disease with heart failure; I50.32 - Chronic diastolic (congestive) heart failure Category: Medical Code(s): I11.9 - Hypertensive heart disease without heart failure (7) Nonischemic cardiomyopathy Status: Chronic Category: Medical Code(s): I42.8 - Other cardiomyopathies (8) Altered mental state Status: Resolved Qualifiers: Altered mental status type: unspecified Qualified Code(s): R41.82 - Altered mental status, unspecified Category: Medical Code(s): R41.82 -
--- NOTE | 2020-09-07 16:19 | PC.NURSE ---
Addendum entered by Doretha Mathis RN 09/07/20 17:07: Pt with elevated glucose, 170 and 305 at checks, SSI administered per mar. Pt has now had a bm, moderate & loose. Original Note: Pt is alert and oriented. Faint crackles noted to lungs. O2 has remained in the upper 90's on 2L NC. She has ambulated to the bathroom w/standby assist. She reports chest pain on exertion that resolves with some rest. Appetite has been fair. Last BM documented on 09/06. Pt unable to produce sputum as of yet. Safety measures in place, will continue to monitor.
[2020-09-07 17:12] LABS: POC Glucose,Bedside 318 (70-110)
[2020-09-07 17:12] LABS: POC Glucose,Bedside 188 (70-110)
[2020-09-07 17:12] LABS: POC Glucose,Bedside 170 (70-110)
[2020-09-07 17:12] LABS: POC Glucose,Bedside 369 (70-110)
[2020-09-07 17:12] LABS: POC Glucose,Bedside 326 (70-110)
[2020-09-07 17:12] LABS: POC Glucose,Bedside 130 (70-110)
[2020-09-07 17:12] LABS: POC Glucose,Bedside 175 (70-110)
[2020-09-07 20:28] LABS: POC Glucose,Bedside 339 (70-110)
[2020-09-08] VITALS: BP 134/73; PULSE 70; TEMP 37.4; O2SAT 96
[2020-09-08 04:00] VITALS: BP 129/63; PULSE 70; TEMP 37.2; O2SAT 97
[2020-09-08 05:00] VITALS: BMI 39.4
[2020-09-08 05:34] LABS: POC Glucose,Bedside 140 (70-110)
--- NOTE | 2020-09-08 05:41 | PC.NURSE ---
shift summary pulses palpable but irregularly irregular. heart rate stays about 70. breath sounds course on right side and diminished in bilateral bases. o2 remains at 2l nc with sats remaining 97%. room air sat of 89%. no cough noted. patient denies any shortness of air, pain, nausea, vomiting or diarrhea. urine clear yellow.
[2020-09-08 06:27] LABS: Basophils % 0.3 % (0.1-2.0); Eosinophils % 0.7 % (0.1-12.0); Hematocrit 32.6 % (37.0-47.0); Hemoglobin 10.5 g/dL (12.2-16.2); Lymphocytes % 25.6 % (10-50); Mean Corpuscular HGB Conc 32.3 g/dL (31.8-35.4); Mean Corpuscular Hemoglobin 32.5 pg (27.0-31.2); Mean Corpuscular Volume 100.6 fl (81-99); Mean Platelet Volume 8.5 fl (7.4-10.4); Monocytes # 0.3 K/mm3 (0.1-1.0); Monocytes % 8.1 % (1.7-9.3); Neutrophils # 2.6 K/mm3 (1.8-7.8); Neutrophils % 65.3 % (37.0-80.0); Platelet Count 263 K/mm3 (142-424); Red Blood Count 3.24 M/mm3 (4.20-5.40); Red Cell Distribution Width 15.2 % (11.5-17.5)
[2020-09-08 06:40] LABS: Chloride 106 mmol/L (98-107)
[2020-09-08 06:41] LABS: Potassium 4.1 mmoL/L (3.5-5.1); Sodium 138 mmol/L (136-145)
[2020-09-08 06:43] LABS: Alanine Aminotransferase 38 U/L (12-78); Alkaline Phosphatase 149 U/L (38-126); Anion Gap 7.1 mEq/L (5-15); Aspartate Amino Transferase 21 U/L (14-36); Bilirubin,Total 0.4 mg/dl (0.2-1.3); Blood Urea Nitrogen 20 mg/dl (7-17); Carbon Dioxide 29 mmol/L (22.0-30.0); Creatinine Clearance Estimated 86 mL/min (50-200); Estimated Glomerular Filt Rate 85 ml/min (>60); GFR (African American) 102 ML/MIN (>60)
[2020-09-08 06:44] LABS: Albumin Level 2.6 g/dl (3.5-5.0); Albumin/Globulin Ratio 0.9 (1.1-1.8); Calcium 8.7 mg/dl (8.4-10.2); Globulin 2.8 g/dL (1.3-3.2); Glucose 128 mg/dl (74-100); Total Protein,Serum 5.4 g/dl (6.3-8.2)
--- NOTE | 2020-09-08 06:56 | HMH.DCSUM ---
General - General Admission date:: 08/31/20 Discharge date: 09/08/20 HPI HPI: 65-year-old female presented to the office today with 3 days of cough with developing shortness of breath, elevated temperature to 99.9 and generalized weakness. She reports multiple sick family members. No one has been tested for coronavirus. She denied headache, loss of smell or taste, sore throat. She did endorse myalgias, chills, generalized weakness. Recent medical history is also positive for gram-negative sepsis from a urinary tract infection. Within the last 3 weeks patient had recurrent urinary tract infection for which she delayed initiation of antibiotics due to financial hardship. Patient reports she is currently in the middle of that course of antibiotics. In the office the patient appeared weak and even confused at times with difficulty finishing sentences. Patient had O2 sats ranging from 86% to 96%. Lung exam was difficult due to patient's weakened poor inspiratory effort but was suspicious for pneumonia. Decision was made to meet admit the patient for further testing, observation and to expedite work-up. Hospital Course Hospital Course: Patient was admitted from the office with profound weakness, suspected fevers, shortness of breath and hypoxia. Viral PCR panel was performed on admission which revealed COVID 19 positivity. Chest x-ray revealed bilateral upper lobe infiltrates. Patient was transferred to the special care unit. On initial admission and the day following admission patient's GFR did not allow for Remdesivir but patient was started on dexamethasone 6 mg daily. Once GFR improved Remdesivir was added to the patient's treated for COVID 19 pneumonia. She was placed on nasal cannula oxygen with goal sats of 94% or greater. For the first 5 days of admission patient remained stable without signs of improvement nor deterioration. By the patient began to show some signs of improvement in regards to her lung exam and this was supported by improvement in the patient's chest x-ray. Patient also was able to be weaned on her supplemental oxygen to 2 L/min via the nasal cannula. However patient still had resting room air sats of 88%. On the she was deemed ready for discharge from the hospital to home. Patient will need supplemental oxygen at flow rate of 2 L/min via the nasal cannula. Patient will follow-up in the office in [address] Quiñonez was consulted and followed the patient while hospitalized and help direct care. He is requested patient follow-up with him in 6 weeks with PFT and 6-minute walk test. Patient had acute kidney injury on admission. Patient's Entresto and diuretics were held and as she had some concurrent hypotension patient was given fluid boluses. Patient's acute kidney injury improved within 48 hours. On the day of discharge patient's creatinine was 0.8 which is her baseline. Entresto had been restarted 3 days prior to discharge. Renal function remained stable. Patient has a history of atrial fibrillation as well as cardiomyopathy. She was continued on bisoprolol during hospitalization and remained rate controlled. Patient was continued on Xarelto during hospitalization as an anticoagulant. Patient's fluid status was monitored closely and she did receive a single dose of Lasix during hospitalization due to suspected hypervolemia. Patient is a diabetic. Patient's blood sugars were elevated during hospitalization secondary to steroid use. Glucose was controlled with sliding scale insulin coverage. On the patient was deemed appropriate for discharge. She was discharged home in stable condition. Patient will follow-up in my office in 1 week. She will follow-up with pulmonology in 6 weeks. She will need supplemental oxygen both home concentrator and portable to be set at 2 L/min flow via the nasal cannula. Patient also requested conserving device. Objective Vital signs:
[2020-09-08 08:00] VITALS: BP 107/57; PULSE 70; RESP 16; TEMP 36.9; O2SAT 94
[2020-09-08 08:13] VITALS: PULSE 71
--- NOTE | 2020-09-08 08:50 | SW/DCPLANNER ---
Addendum entered by Antoinette Scott 09/08/20 09:11: Susan with [employer] has called back stating they will deliver oxygen to patients room this morning. I will relay this message to patients nurse. Original Note: Patient information and order has been faxed to [facility] for home oxygen. I will follow up with [employer] once patient information is reviewed. Patient will discharge home later today.
--- NOTE | 2020-09-08 12:10 | HMH.PULMPN ---
Internal Medicine - PN: Subj *Date: 09/08/20 *Time: 12:10 Interval history: No Acute respiratory events overnight. Patient respiratory status improved, on room air this morning saturating 91% to 93% Exam Vital signs and Labs for Last 24 Hours: Temp Pulse Resp BP Pulse Ox 98.4 F 71 16 107/57 L 94 L 09/08/20 08:00 09/08/20 08:13 09/08/20 08:00 09/08/20 08:00 09/08/20 08:00 Laboratory Results - last 24 hr 09/05/20 20:08: POC Glucose 326 H* 09/06/20 05:55: POC Glucose 130 H 09/06/20 11:22: POC Glucose 188 H 09/06/20 16:35: POC Glucose 369 H* 09/06/20 20:29: POC Glucose 318 H* 09/07/20 05:17: POC Glucose 175 H 09/07/20 11:47: POC Glucose 170 H 09/07/20 20:20: POC Glucose 339 H* 09/08/20 05:21: POC Glucose 140 H 09/08/20 05:26: WBC 4.0 L, RBC 3.24 L, Hgb 10.5 L, Hct 32.6 L, MCV 100.6 H, MCH 32.5 H, MCHC 32.3, RDW 15.2, Plt Count 263, MPV 8.5, Neut % (Auto) 65.3, Lymph % (Auto) 25.6, [place] % (Auto) 8.1, Eos % (Auto) 0.7, Baso % (Auto) 0.3, Neut # (Auto) 2.6, Lymph # (Auto) 1.0, [place] # (Auto) 0.3, Eos # (Auto) 0.0, Baso # (Auto) 0.0 09/08/20 05:26: Sodium 138, Potassium 4.1, Chloride 106, Carbon Dioxide 29, Anion Gap 7.1, BUN 20 H, Creatinine 0.70, Estimated Creat Clear 86, Estimated GFR 85, Est GFR ( Amer) 102, Glucose 128 H D, Calcium 8.7, Total Bilirubin 0.4, AST 21, ALT 38, Alkaline Phosphatase 149 H, Total Protein 5.4 L, Albumin 2.6 L D, Globulin 2.8, Albumin/Globulin Ratio 0.9 L I & O for Last 24 hours: Intake & Output 09/05/20 09/06/20 09/07/20 09/08/20 23:59 23:59 23:59 23:59 Intake Total 1278 / 1278 980 / 990 490 / 490 Output Total 1150 / 1425 2275 / 2275 1875 / 1875 600 / 600 Balance 128 / -147 -1295 / -1285 -1385 / -1385 -600 / -600 Weight 208 lb 3.2 oz 209 lb 9 oz 207 lb 12.8 oz 208 lb 8.917 oz - *Routine HEENT Exam Head: Present: normocephalic, atraumatic - *Routine Neck Exam Present: supple. Absent: lymphadenopathy, thyromegaly - *Routine Respiratory Exam Absent: accessory muscle use, patient mechanically ventilated, CTA bilaterally - *Routine Cardiovascular Exam Present: Normal S1, Normal S2 - *Routine Abdominal Exam Present: soft, normoactive bowel sounds. Absent: tenderness, distended, rebound - *Routine Extremities Exam Present: edema. Absent: cyanosis, clubbing Assessment and Plan (1) Pneumonia due to COVID-19 virus Status: Acute Category: Medical Code(s): U07.1 - COVID-19; J12.89 - Other viral pneumonia (2) Right lower lobe pneumonia Status: Suspected Category: Medical Code(s): J18.9 - Pneumonia, unspecified organism (3) Atrial fibrillation Status: Chronic Qualifiers: Atrial fibrillation type: longstanding persistent Qualified Code(s): I48.11 - Longstanding persistent atrial fibrillation Category: Medical Code(s): I48.91 - Unspecified atrial fibrillation (4) Chronic congestive heart failure Status: Chronic Qualifiers: Heart failure type: combined systolic and diastolic Qualified Code(s): I50.42 - Chronic combined systolic (congestive) and diastolic (congestive) heart failure Category: Medical Code(s): I50.9 - Heart failure, unspecified (5) Diabetes mellitus type II, controlled Status: Chronic Qualifiers: Diabetes mellitus termination clerk insulin use: with group home use Diabetes mellitus complication status: without complication Qualified Code(s): E11.9 - Type 2 diabetes mellitus without complications; Z79.4 - correction (current) use of insulin Category: Medical Code(s): E11.9 - Type 2 diabetes mellitus without complications (6) HHD (hypertensive heart disease) Status: Chronic Qualifiers: Heart failure presence: with heart failure Heart failure type: diastolic Heart failure chronicity: chronic Qualified Code(s): I11.0 - Hypertensive heart disease with heart failure; I50.32 - Chronic diastolic (congestive) heart failure Category: Medical Code(s): I11.9 - Hypertensive heart disease without hea
[2020-09-12 16:24] LABS: POC Glucose,Bedside 315 (70-110)
[2020-09-12 16:24] LABS: POC Glucose,Bedside 302 (70-110)
== END 2020-09-08 12:37 | disposition home or self-care (01) | DRG 177 ==
LOC: ICU 09-01 06:22 → 2ND 09-01 07:35
PROVIDERS: Admitting Provider Family Medicine; PCP Family Medicine; Visit Provider Family Medicine
DX: U07.1 COVID-19 (principal); J12.89 Other viral pneumonia; J96.01 Acute respiratory failure with hypoxia; I48.11 Longstanding persistent atrial fibrillation; I50.42 Chronic combined systolic (congestive) and diastolic (congestive) heart failure; I42.8 Other cardiomyopathies; N17.9 Acute kidney failure, unspecified; I11.0 Hypertensive heart disease with heart failure; E11.9 Type 2 diabetes mellitus without complications; Z79.4 Long term (current) use of insulin; Z79.899 Other long term (current) drug therapy
CPT/HCPCS: 71045; 80048; 80053; 80162; 81001; 82803; 82962; 83605; 83735; 83880; 84484; 85025; 86140; 87040; 87581; 87633; 87798; 93005; 94761; J0456; J2405

== ENCOUNTER 2020-09-11 15:24 | Inpatient (IN) | payer MEDICARE, SELFPAY ==
[2020-09-11 15:25] VITALS: BP 89/57; PULSE 86; RESP 18; TEMP 39.1; O2SAT 97; BMI 37.2
--- NOTE | 2020-09-11 15:28 | HMH.EDGENADL ---
ED Disposition Clinical Impression: Dehydration Sepsis Qualifiers: Sepsis type: sepsis due to unspecified organism Sepsis acute organ dysfunction status: unspecified Qualified Code(s): A41.9 - Sepsis, unspecified organism UTI (urinary tract infection) Qualifiers: Urinary tract infection type: acute cystitis Hematuria presence: without hematuria Qualified Code(s): N30.00 - Acute cystitis without hematuria Disposition: Admitted As Inpatient Condition on Discharge: Fair - Critical Care Critical Care Time: Yes Attestation: On , the high probability of a clinically significant, sudden or life threatening deterioration of the following system(s) required my full and direct attention, intervention and personal management. The time I documented below is in addition to time spent performing reported procedures but includes the following listed in this critical care notation. Total Critical Care Time: 30 Vital system(s) involved:: Shock (Septic) My critical care processes included: Assessment & monitoring of V/S, Initial and Re-exams, Data Review/Interpretation, Coordinating Care, Medication Orders and management, Documentation Medical Decision Making - Medical Records Medical records reviewed: Yes: I reviewed the patient's medical records. - Neil Inquiry Pt receiving controlled substance: No Vital Signs: 09/11/20 15:25 09/11/20 16:56 Temperature 102.3 F H Temperature Source Rectal Pulse Rate [Left Radial] 86 88 Respiratory Rate 18 20 Blood Pressure [Right Arm] 89/57 L 108/56 L Blood Pressure Mean [Right Arm] 67 73 Blood Pressure Source [Right Arm] Automatic Cuff Automatic Cuff Blood Pressure Position [Right Arm] Sitting Sitting 02 Sat by Pulse Oximetry 97 94 L Oxygen Delivery Method Room Air - Lab Data Lab results reviewed: Yes: I reviewed the patient's lab results. Lab Results 09/11/20 15:20: WBC 11.5 H, RBC 3.86 L, Hgb 12.6, Hct 39.3, MCV 101.7 H, MCH 32.6 H, MCHC 32.1, RDW 15.9, Plt Count 297, MPV 8.3, Neut % (Auto) 78.0, Lymph % (Auto) 14.8, [place] % (Auto) 6.9, Eos % (Auto) 0.0 L, Baso % (Auto) 0.2, Neut # (Auto) 9.0 H, Lymph # (Auto) 1.7, [place] # (Auto) 0.8, Eos # (Auto) 0.0, Baso # (Auto) 0.0 09/11/20 15:20: Sodium 137, Potassium 3.6, Chloride 97 L, Carbon Dioxide 31 H, Anion Gap 12.6, BUN 23 H, Creatinine 1.00, Estimated Creat Clear 87, Estimated GFR 56 L, Est GFR ( Amer) 68, Glucose 125 H, Calcium 8.7, Magnesium 1.8, Total Bilirubin 1.8 H, AST 35, ALT 23, Alkaline Phosphatase 152 H, Troponin I < 0.01, Total Protein 6.9 D, Albumin 3.4 L, Globulin 3.5 H, Albumin/Globulin Ratio 1.0 L, TSH 0.73 09/11/20 15:20: SARS-CoV-2 IgG Ab (Rapid) Positive A, SARS-CoV-2 IgM Ab (Rapid) Negative 09/11/20 15:38: Lactate 2.0 09/11/20 15:38: Phosphorus 3.3 09/11/20 15:40: Urine Opiates Screen Negative, Urine Methadone Screen Negative, Ur Barbituates Screen Positive H, Ur Phencyclidine Scrn Negative, Ur Amphetamines Screen Negative, U Benzodiazepines Scrn Negative, Urine Cocaine Screen Negative, U Marijuana (THC) Screen Negative 09/11/20 15:40: Urine Color Yellow, Urine Appearance Clear, Urine pH 7.0, Ur Specific E[place] 1.015, Urine Protein Trace, Urine Glucose (UA) Negative, Urine Ketones Trace, Urine Blood Negative, Urine Nitrate Negative, Urine Bilirubin Negative, Urine Urobilinogen 0.2, Ur Leukocyte Esterase Negative, Urine RBC 5-10, Urine WBC 5-10, Ur Squamous Epith Cells 3-5, Urine Bacteria 1+, Hyaline Casts 3-5 09/11/20 15:59: VBG pH 7.47 H, VBG pCO2 37.8, VBG pO2 114.9 H, VBG HCO3 26.7, VBG Total CO2 27.9 H, VBG O2 Saturation 97.9 H, VBG Base Excess 3.0 H Result diagrams: 09/11/20 15:20 09/11/20 15:20 Orders (Tests/Meds): ED MEDICATIONS Generic Name Dose Route Start Last Admin Trade Name Freq PRN Reason Stop Dose Admin Piperacillin Sod/Tazobactam 50 mls @ 100 mls/hr 09/11/20 15:45 09/11/20 16:25 Sod 3.375 gm/ Sodium Chloride IV 09/25/20 15:44 100 mls/hr Q8H GAIL Administration Protocol Mango
--- NOTE | 2020-09-11 15:35 | ECG_ITS ---
APPROVED REPORT Exam: Resting ECG HR:90 bpm ECG Measurements Heart Rate 90 AXES QRSd 86 QRS 113 QT 424 T 237 QTc 518 Conclusion Atrial fibrillation/flutter with premature ventricular or aberrantly conducted complexes Poor R W ave Progression ST & T wave abnormality, consider lateral ischemia or digitalis effect Prolonged QT Abnormal ECG Electronically signed by : Dionisio Quintero, 09/25/2020 16:42:25
--- NOTE | 2020-09-11 15:35 | XR_ITS ---
PROCEDURE: XR CHEST PORTABLE CLINICAL HISTORY: recent pneumonia, sepsis COMPARISON: CT CTAC CTA-CHEST from 01/24/2016 CR XR CHEST PORTABLE from 09/02/2020 CR XR CHEST PORTABLE from 09/04/2020 CR XR CHEST PORTABLE from 09/06/[address] ABDOMEN PELVIS W CON from 09/11/2020 FINDINGS: Biventricular and right atrial pacemaker leads are present from left subclavian approach. Lungs are clear bilaterally with resolution of the right upper lobe infiltrate. No acute bony abnormalities. IMPRESSION: No acute findings. Dictated by: Momo Jorgensen MD 09/11/2020 16:25 Momo Jorgensen MD in [facility] 09/11/2020 16:25
--- NOTE | 2020-09-11 15:42 | CT_ITS ---
PROCEDURE: CT ABDOMEN PELVIS W CON CLINICAL INDICATION: diffuse abdominal pain, sepsis COMPARISON: CT CT ABDOMEN PELVIS WO CON from 06/13/2020 TECHNIQUE: IV Contrast: 75ML OPTIRAY 350 Oral Contrast None Axial images obtained with sagittal and coronal reformats. All CT scans at the facility use one or more dose reduction, viz: automated exposure control, ma/kV adjustment per patient size (including targeted exams where dose is matched to indication, i.e. head), or iterative reconstruction technique. FINDINGS: LOWER THORAX: Motion artifact somewhat obscures fine detail. Cardiac pacemaker wires are present. ABDOMEN & PELVIS: Artifact is present from the patient's arms which were not able to be moved above the head. The liver, spleen, adrenal glands, pancreas, and kidneys have an unremarkable appearance. No renal or ureteral calculi. No hydronephrosis. Nonobstructive bowel gas pattern. There is a Alonso catheter in place. There is a small amount air near collapsed urinary bladder. No acute bony findings. IMPRESSION: No acute finding Dictated by: Momo Jorgensen MD 09/12/2020 05:44 Momo Jorgensen MD in [facility] 09/12/2020 05:44
[2020-09-11 15:53] LABS: Basophils % 0.2 % (0.1-2.0); Hematocrit 39.3 % (37.0-47.0); Hemoglobin 12.6 g/dL (12.2-16.2); Lymphocytes # 1.7 K/mm3 (0.7-4.5); Lymphocytes % 14.8 % (10-50); Mean Corpuscular HGB Conc 32.1 g/dL (31.8-35.4); Mean Corpuscular Hemoglobin 32.6 pg (27.0-31.2); Mean Corpuscular Volume 101.7 fl (81-99); Mean Platelet Volume 8.3 fl (7.4-10.4); Monocytes # 0.8 K/mm3 (0.1-1.0); Monocytes % 6.9 % (1.7-9.3); Platelet Count 297 K/mm3 (142-424); Red Blood Count 3.86 M/mm3 (4.20-5.40); Red Cell Distribution Width 15.9 % (11.5-17.5); White Blood Count 11.5 K/mm3 (4.8-10.8)
[2020-09-11 15:55] LABS: Chloride 97 mmol/L (98-107); Potassium 3.6 mmoL/L (3.5-5.1); Sodium 137 mmol/L (136-145)
[2020-09-11 15:56] LABS: Microscopic, Urine URINE MICROSCOPIC (MICROSCOPIC)
[2020-09-11 15:57] LABS: Amphetamine/Metha Screen,Urine Negative ng/ml (<1000); Appearance,Urine CLEAR (Clear); Bilirubin,Urine Negative (Negative); Blood, Urine Negative (Negative); Color,Urine YELLOW (Yellow); Glucose,Urine (UA) Negative (Negative); Ketones,Urine TRACE (Negative); Leukocyte Esterase,Urine Negative (Negative); Nitrate,Urine Negative (Negative); Protein,Urine TRACE (Negative); Specific Gravity, Urine 1.015 (1.005-1.030); Urobilinogen,Urine 0.2 EU/dl (0.2)
[2020-09-11 15:58] LABS: Alanine Aminotransferase 23 U/L (12-78); Albumin Level 3.4 g/dl (3.5-5.0); Alkaline Phosphatase 152 U/L (38-126); Anion Gap 12.6 mEq/L (5-15); Aspartate Amino Transferase 35 U/L (14-36); Bilirubin,Total 1.8 mg/dl (0.2-1.3); Blood Urea Nitrogen 23 mg/dl (7-17); Calcium 8.7 mg/dl (8.4-10.2); Carbon Dioxide 31 mmol/L (22.0-30.0); Creatinine Clearance Estimated 87 mL/min (50-200); Estimated Glomerular Filt Rate 56 ml/min (>60); GFR (African American) 68 ML/MIN (>60); Globulin 3.5 g/dL (1.3-3.2); Glucose 125 mg/dl (74-100); Total Protein,Serum 6.9 g/dl (6.3-8.2)
[2020-09-11 15:58] LABS: Barbiturates Screen,Urine Positive ng/ml (<200); Benzodiazepines Screen,Urine Negative ng/ml (<200)
[2020-09-11 15:59] LABS: Cannabinoid Screen,Urine Negative ng/ml (<50)
[2020-09-11 15:59] LABS: Phosphorous 3.3 mg/dl (2.5-4.5)
[2020-09-11 15:59] LABS: Magnesium 1.8 mg/dl (1.6-2.3)
[2020-09-11 16:00] LABS: Cocaine Screen,Urine Negative ng/ml (<300); Methadone Screen,Urine Negative ng/ml (<300)
[2020-09-11 16:01] LABS: Opiate Screen,Urine Negative ng/ml (<300); Phencyclidine Screen,Urine Negative ng/ml (<25)
[2020-09-11 16:04] LABS: Bacteria,Urine 1+ /lpf
[2020-09-11 16:07] LABS: VBG HCO3 26.7 mmol/L (23-30); VBG Oxygen Saturation 97.9 % (50-70); VBG PCO2 37.8 mmol/L (35-51); VBG PH 7.47 mmol/L (7.31-7.41); VBG PO2 114.9 mmol/L (28-40); VBG Total CO2 27.9 mmol/L (23-27)
[2020-09-11 16:19] LABS: Troponin I < 0.01 ng/ml (0.00-0.034)
[2020-09-11 16:30] LABS: Thyroid Stimulating Hormone 0.73 uIU/mL (0.465-4.68)
--- NOTE | 2020-09-11 16:55 | PC.NURSE ---
notified lab of new orders on pt, spoke with nidhi
[2020-09-11 16:56] VITALS: BP 108/56; PULSE 88; RESP 20; O2SAT 94
[2020-09-11 17:21] LABS: Coronavirus 19 IgG Antibody Positive (Negative); Coronavirus 19 IgM Antibody Negative (Negative)
[2020-09-11 17:30] VITALS: TEMP 37.3
--- NOTE | 2020-09-11 17:30 | PC.NURSE ---
extraction machine operator paging Dr. Branch who is software application tester for Dr. Galvan
--- NOTE | 2020-09-11 17:40 | PC.NURSE ---
ER MD spoke with Dr. Branch at this time, agreeable for admission isolation precautions were discussed with Dr. Branch, pt was tested covid positive 08/31/20, antibody testing performed in ER on this visit pt is IGG positive IGM negative Dr. Branch states no need for respiratory isolation or to reswab pt, pt is past her 10 day quarantine window.
--- NOTE | 2020-09-11 17:44 | PC.NURSE ---
warehouse and receiving supervisor notified of admission
[2020-09-11 17:56] VITALS: BMI 37.0
--- NOTE | 2020-09-11 18:01 | PC.NURSE ---
Report called to Jairo
[2020-09-11 18:53] VITALS: BP 118/68; BP 122/43; PULSE 82; PULSE 88; RESP 18; RESP 22; TEMP 37.2; TEMP 37.3; O2SAT 100; O2SAT 98
--- NOTE | 2020-09-11 18:55 | PC.NURSE ---
Patient is disoriented to place and time, is a poor historian and is unsure of her health history.
--- NOTE | 2020-09-11 18:59 | PC.NURSE ---
spoke with Latasha Zambrano, person to notify, regarding code status she stated she would like that to be up to pt daughter Yennifer Edwards. Spoke with Yennifer Jerry, pt daughter, she stated she would like pt to be full code. Rajesh Hart phone verification.
--- NOTE | 2020-09-11 19:14 | PC.NURSE ---
report given to duglas
[2020-09-11 20:00] VITALS: BP 115/51; PULSE 75; RESP 38; TEMP 36.6; O2SAT 98
[2020-09-11 21:33] LABS: POC Glucose,Bedside 141 (70-110)
--- NOTE | 2020-09-11 22:05 | PC.NURSE ---
Pt was asked by this nurse if staff could apply seizure pads to bed, pt agreed. When staff went in to put seizure pads on pt then refused. Pt educated on the importance of seizure pad but still declined at this time.
[2020-09-11 23:00] LABS: POC Glucose,Bedside 151 (70-110)
[2020-09-12] VITALS (10 sets, daily range): BP systolic 102–134; BP diastolic 49–63; PULSE 70–83; RESP 18–22; TEMP 36.8–37.9; O2SAT 91–98; BMI 37.4
--- NOTE | 2020-09-12 04:32 | PC.NURSE ---
Pt has rested intermittently this shift. Pt is alert to first name, but not last name, , time or situation. Pt has remained afebrile this shift. Pt was able to tolerate PO meds appropriately. RA sats remain in the upper 90's this shift. Lung sounds are diminished t/o. Alonso catheter is draining clear, light juanito urine per gravity. Pt has moaned loudly intermittently this shift, when staff enters the room and asks pt if she is in pain, if she is uncomfortable, if she is too cold/hot and pt replies no, I'm fine . Pt did c/o bilat foot pain once to this nurse at a rating of 10 on the numeric scale. PRN Tramadol was administered per JAN. Pt attempted to get out of bed to BSC x1 this shift. Pt could not bear weight with x2 assist to get to BSC. Pt stated I've got to lay back down, I can't do it. Pt was incontinent of bowels x1 this shift. BM was small, loose and brown/orange in color. 20G PIV in LFA remains patent and is infusing LR @ 50 ml/hr. Call light remains in reach. No other acute changes or complaints this shift. Will continue to monitor.
[2020-09-12 05:57] LABS: POC Glucose,Bedside 148 (70-110)
[2020-09-12 06:34] LABS: Basophils % 0.2 % (0.1-2.0); Eosinophils % 0.3 % (0.1-12.0); Hematocrit 35.5 % (37.0-47.0); Hemoglobin 11.5 g/dL (12.2-16.2); Lymphocytes # 1.1 K/mm3 (0.7-4.5); Lymphocytes % 12.8 % (10-50); Mean Corpuscular HGB Conc 32.3 g/dL (31.8-35.4); Mean Corpuscular Hemoglobin 32.7 pg (27.0-31.2); Mean Corpuscular Volume 101.5 fl (81-99); Mean Platelet Volume 7.9 fl (7.4-10.4); Monocytes # 0.5 K/mm3 (0.1-1.0); Neutrophils # 6.8 K/mm3 (1.8-7.8); Neutrophils % 80.7 % (37.0-80.0); Platelet Count 239 K/mm3 (142-424); Red Cell Distribution Width 15.8 % (11.5-17.5); White Blood Count 8.4 K/mm3 (4.8-10.8)
[2020-09-12 06:52] LABS: Chloride 101 mmol/L (98-107); Sodium 138 mmol/L (136-145)
[2020-09-12 06:55] LABS: Alanine Aminotransferase 18 U/L (12-78); Albumin/Globulin Ratio 0.9 (1.1-1.8); Alkaline Phosphatase 140 U/L (38-126); Aspartate Amino Transferase 23 U/L (14-36); Bilirubin,Total 1.5 mg/dl (0.2-1.3); Blood Urea Nitrogen 19 mg/dl (7-17); Carbon Dioxide 29 mmol/L (22.0-30.0); Creatinine Clearance Estimated 84 mL/min (50-200); Estimated Glomerular Filt Rate 72 ml/min (>60); GFR (African American) 88 ML/MIN (>60); Globulin 3.3 g/dL (1.3-3.2); Total Protein,Serum 6.3 g/dl (6.3-8.2)
[2020-09-12 06:56] LABS: Calcium 8.5 mg/dl (8.4-10.2); Glucose 146 mg/dl (74-100)
--- NOTE | 2020-09-12 07:11 | HMH.HP ---
*Admission Date: 09/11/20 *Chief complaint: Confusion *History of present illness: 65-year-old female with recent hospitalization for COVID-19 pneumonia return to the emergency department yesterday with altered mental status and inability to urinate according to people she lives with. Patient was febrile on presentation and work-up revealed mild elevation of white blood cell count, hypotension, altered mental status and labs raise suspicion of urinary tract infection. Patient was admitted to the hospital earlier this year with pyelonephritis and just prior to her COVID-19 admission patient had a urinary tract infection treated as an outpatient. Patient was started on Vanco and Zosyn which was later changed to cefepime. This morning she is able to answer yes and no questions but can give very little history. She does report she has not been wearing her oxygen at home that she was given at discharge from her hospitalization for COVID-19 pneumonia. She denies dysuria, hematuria, urinary urgency. She cannot recall whether she had difficulty urinating yesterday. She admits her memory is rather poor regarding the events of yesterday. [facility] History I have reviewed the patient's past medical history: Yes Medical History: Reports:: Arrhythmia, Atrial Fibrillation, Cardiomyopathy, Congestive Heart Failure, Coronary Artery Disease, Depression, Diabetes Mellitus Type 2, Gastroesophageal Reflux Disease(GERD), Hyperlipidemia, Hypertension, Internal Pacemaker, Palpitations, Seizures Denies:: Cancer, Diabetes Mellitus Type 1, MRSA *Have you ever received a pneumonia vaccine?: Yes *Have you received a flu vaccine this season?: Yes Other Medical History: Reports: Arthritis Laterality Cases: Bilateral: Tonsillectomy Other Surgeries: Yes: Appendectomy, Cardiac Catheterization, Cholecystectomy, Pacemaker, Other (Defibrillator, tonsillectomy.) Amputation: No Fractures: No - *Social History Smoking Status: Never smoker Tobacco Type: cigarettes # Packs/Day (cigarettes): 0 #Yrs smoked (if former smoker): 0 Alcohol Intake: never Alcohol Intake Frequency:: other Substance Use Type: denies use *Occupational Status:: disabled Housing: house Household Members: family *Travel in the last 8 weeks: None - Psychiatric History Pschychiatric History:: Reports:: Depression Family Hx:: Heart Attack, Hyperlipidemia Review of Systems - Review of Systems Review of systems:: unable to obtain Meds Home Medications Medication Instructions Recorded Confirmed Type Atorvastatin Calcium [Lipitor 10mg 10 mg PO DAILY 12/03/17 09/11/20 History Tab] Pantoprazole Sodium [Protonix 40mg 40 mg PO BID 12/03/17 09/11/20 History tablet] Tramadol HCl [Ultram 50mg 50 mg PO BID PRN 12/03/17 09/11/20 History tablet] rivaroxaban 20 mg tablet 20 mg PO DAILY #90 tab 08/23/19 09/11/20 Rx gabapentin 800 mg tablet 800 mg PO TID 12/21/19 09/11/20 History insulin human U-100 NPH-regulr 90 units SQ DAILY 12/21/19 09/11/20 History 70-30 mix 100 unit/mL subcutaneous susp loratadine 10 mg tablet 10 mg PO DAILY 12/21/19 09/11/20 History omega 4-xfb-fge-fish oil 300 1 cap PO BID 12/21/19 09/11/20 History mg-1,000 mg capsule,delayed release Insulin NPH Hum/Reg Insulin Hm 50 units SQ PM 02/12/20 09/11/20 History [Novolin 70-30 100 Unit/ml Vial] Isosorbide Mononitrate [Imdur 30mg 30 mg PO DAILY 02/12/20 09/11/20 History ER tablet] Multivit,Tx with Iron,Minerals 1 each PO DAILY 02/12/20 09/11/20 History [Complete Multivitamin] PHENobarbitaL [PHENobarbital 1 tab PO TID 02/12/20 09/11/20 History 32.4mg Tablet] Colchicine [Colcrys 0.6mg tablet] 0.6 mg PO DAILY 03/27/20 09/11/20 History Digoxin 125 mcg PO DAILY 03/27/20 09/11/20 History Loperamide HCl [Loperamide] 2 mg PO NEEDED PRN 03/27/20 09/11/20 History Biotin 5 mg PO DAILY 03/28/20 09/11/20 History Nitroglycerin [Nitrostat 0.4mg SL 0.4 mg SL Q5MINP PRN 03/28/20 09/11/20 History Tablet] Ropin
--- NOTE | 2020-09-12 07:28 | P.CONPHA_ITS ---
[facility] Pharmacy VTE Monitoring - Patient Demographics Admission date: 09/11/20 Report Date: 09/12/20 Time: 07:28 Allergies/Adverse Reactions: Patient Allergies metoclopramide [From REGLAN] Allergy (Mild, Verified 07/10/20 14:02) IGNACIO Height: 1.57 m Weight: 92.221 kg Patient Problems: Current Active Problems (Last Updated 05/16/20 @ 15:38 by Shelly Cunningham RN) Dehydration (Acute) Type 2 diabetes mellitus, with long-term current use of insulin (Acute) Type 2 diabetes mellitus with peripheral neuropathy (Acute) UTI (urinary tract infection) (Acute) Diastolic heart failure (Chronic) Hypertensive disorder (Chronic) Nonischemic cardiomyopathy (Chronic) - VTE Risk Labs: VTE Related Lab Results Hgb 11.5 g/dL (12.2-16.2) L 09/12/20 06:23 Hct 35.5 % (37.0-47.0) L 09/12/20 06:23 Plt Count 239 K/mm3 (142-424) 09/12/20 06:23 BUN 19 mg/dl (7-17) H 09/12/20 06:23 Creatinine 0.80 mg/dl (0.52-1.04) 09/12/20 06:23 Estimated Creat Clear 84 mL/min (50-200) 09/12/20 06:23 - Prophylaxis VTE Prophylaxis Ordered?: Yes Types of VTE Prophylaxis: TEDS Knee High, Pharmacological Location of Applied Device: Bilateral Lower Extremeties Pharmacologic Type: Other (XARELTO)
--- NOTE | 2020-09-12 07:36 | SW/DCPLANNER ---
PATIENT ADMITTED TO [facility] WITH ALTERED MENTAL STATUS AFTER BEING DISCHARGED ON FRIDAY AFTER A LENGTHY STAY FOR A COVID DIAGNOSIS...SHE HAS SOME LABS PENDING AT THIS TIME...FAMILY STATED SHE HAS NOT FELT WELL SINCE SHE DISCHARGED AND HASN'T BEEN EATING OR DRINKING MUCH...WILL FOLLOW PATIENT THROUGH HER ACUTE CARE STAY AND ASSIST WITH ANY DISCHARGE PLANS THAT ARE NECESSARY AT TIME OF DISPOSITION... DISCHARGE UNCERTAIN AT THIS TIME...
--- NOTE | 2020-09-12 07:53 | HMH.PHAINT ---
MEDICATION RECONCILIATION COMPLETED ON PATIENT USING DISCHARGE SUMMARY FROM PREVIOUS ADMISSION. -EKNDRA ANAYA, NESTORD
[2020-09-12 11:43] LABS: POC Glucose,Bedside 155 (70-110)
[2020-09-12 16:15] LABS: POC Glucose,Bedside 127 (70-110)
--- NOTE | 2020-09-12 17:59 | PC.NURSE ---
Pt was somewhat confused on morning assessment but is now alert and oriented x4. Lungs are clear. O2 sats have been upper 90's on RA. She has a non productive, intermittent cough. She had a BM this morning that was loose, loperamide given x1 with no more BM's as of yet. She complained that her bottom felt raw, barrier cream applied. Skin appeared intact. Temps were 100.2(R), 99.1(ax) and 98.9(ax) on checks. Tylenol administered x3 today for fever and headache with some relief noted. Tramadol administered for continuous moaning in the AM. Pt appeared more comfortable on reassessment. +1 edema noted to BLE. Celeste dc'd at approx 1730. Urine has been dark juanito with 500 mls out. Appetite is poor refusing both breakfast and lunch, only 50% of dinner consumed. Finger sticks 155 and 127 at checks. No other questions or complaints. Will continue to monitor.
--- NOTE | 2020-09-12 19:12 | PC.NURSE ---
report given to duglas
[2020-09-12 21:17] LABS: POC Glucose,Bedside 174 (70-110)
[2020-09-13] VITALS (8 sets, daily range): BP systolic 97–143; BP diastolic 37–67; PULSE 70–86; RESP 20; TEMP 36.6–38.7; O2SAT 94–99; BMI 37.7
--- NOTE | 2020-09-13 03:41 | PC.NURSE ---
Pt has slept through most of this shift. Pt has been A&Ox2 this shift. Pt is able to state name and place, but not time or situation.Pt has c/o back pain x1 this shift, PRN meds administered per JAN. Lung sounds remain clear. +2 pitting edema noted to BL ankles and feet. Pt has been incontinent of bowel x1 this shift, active bowel sounds in all 4 quads. 20 g PIV in LFA remains patent and is infusing LR @ 50 ml/hr. Pt has been tolerating RA appropriately this shift, with o2 sats between 90-97%. No other acute changes or complaints at this time. Call light remains in reach. Will continue to monitor.
--- NOTE | 2020-09-13 07:21 | HMH.ACPN2 ---
Internal Medicine - PN: Subj *Date: 09/13/20 *Time: 07:26 Interval history: Patient complains of low back pain this morning. She was medicated for this back pain sometime between 1 and 3 AM according to the patient and reports no improvement in pain. She has remained confused at times overnight with nursing staff reporting patient being oriented x2. Exam Vital signs and Labs for Last 24 Hours: Temp Pulse Resp BP Pulse Ox 98.1 F 86 20 129/52 L 94 L 09/13/20 04:00 09/13/20 04:00 09/13/20 04:00 09/13/20 04:00 09/13/20 04:00 Laboratory Results - last 24 hr 09/12/20 11:33: POC Glucose 155 H 09/12/20 16:05: POC Glucose 127 H 09/12/20 20:59: POC Glucose 174 H I & O for Last 24 hours: Intake & Output 09/10/20 09/11/20 09/12/20 09/13/20 11:59 11:59 11:59 11:59 Intake Total 917 / 917 1013 / 1013 Output Total 1275 / 1275 500 / 500 Balance -358 / -358 513 / 513 Weight 203 lb 5 oz 205 lb Microbiology Reports for the Last 24 Hours: Microbiology 09/11/20 15:40 Urine,Catheterized Urine Culture - Preliminary NO GROWTH AFTER 24 HOURS Narrative: Patient is awake and alert sitting up in the chair. Lungs remain clear. Heart has an irregular rate and rhythm. Abdomen is soft. Back has some paraspinal tenderness but no CVA tenderness. Patient has 1+ edema around her ankles. Assessment and Plan (1) UTI (urinary tract infection) Status: Acute Qualifiers: Urinary tract infection type: acute cystitis Hematuria presence: without hematuria Qualified Code(s): N30.00 - Acute cystitis without hematuria Category: Medical Code(s): N39.0 - Urinary tract infection, site not specified (2) Sepsis Status: Suspected Qualifiers: Sepsis type: sepsis due to unspecified organism Sepsis acute organ dysfunction status: unspecified Qualified Code(s): A41.9 - Sepsis, unspecified organism Category: Medical Code(s): A41.9 - Sepsis, unspecified organism (3) Type 2 diabetes mellitus, with long-term current use of insulin Status: Acute Category: Medical Code(s): E11.9 - Type 2 diabetes mellitus without complications; 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.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 of insulin (4) Type 2 diabetes mellitus with peripheral neuropathy Status: Acute Category: Medical Code(s): E11.42 - Type 2 diabetes mellitus with diabetic polyneuropathy (5) Diastolic heart failure Status: Chronic Qualifiers: Heart failure chronicity: chronic Qualified Code(s): I50.32 - Chronic diastolic (congestive) heart failure Category: Medical Code(s): I50.30 - Unspecified diastolic (congestive) heart failure (6) Hypertensive disorder Status: Chronic Qualifiers: Hypertension type: essential hypertension Qualified Code(s): I10 - Essential (primary) hypertension Category: Medical Code(s): I10 - Essential (primary) hypertension (7) Nonischemic cardiomyopathy Status: Chronic Category: Medical Code(s): I42.8 - Other cardiomyopathies (8) Altered mental state Status: Resolved Qualifiers: Altered mental status type: unspecified Qualified Code(s): R41.82 - Altered mental status, unspecified Category: Medical Code(s): R41.82 - Altered mental status, unspecified - Assessment and plan all Dx Assessment and Plan for all problems:: 1. Continue IV antibiotics (cefepime) while awaiting urine and blood cultures 2. PT consult today 3. Discontinue tramadol in favor of low-dose [place]
[2020-09-13 08:05] LABS: Anion Gap 9.5 mEq/L (5-15); Blood Urea Nitrogen 13 mg/dl (7-17); Calcium 8.7 mg/dl (8.4-10.2); Carbon Dioxide 27 mmol/L (22.0-30.0); Chloride 102 mmol/L (98-107); Creatinine Clearance Estimated 85 mL/min (50-200); Estimated Glomerular Filt Rate 85 ml/min (>60); GFR (African American) 102 ML/MIN (>60); Glucose 149 mg/dl (74-100); Potassium 3.5 mmoL/L (3.5-5.1); Sodium 135 mmol/L (136-145)
--- NOTE | 2020-09-13 08:37 | HMH.PTEV ---
Physical Therapy Evaluation Rehab PT IP Evaluation Start: 09/13/20 07:27 Freq: ONCE Status: Active Protocol: Document 09/13/20 08:32 PHORNE (Rec: 09/13/20 08:37 PHORNE [id number]) Subjective/History History History Pt is 65 yowf adm to [facility] with UTI and AMS. She presents sitting in bedside chair this am. She reports she is independent with all mobiolity and ADLs at baseline and lives with family with 1-2 steps to enter the home. Subjective Subjective Pt c/o increased tenderness to palpation to B lower legs, 3/ 4. Rehab PT IP Eval Objective Appearance Patient Behavior Appropriate Patient Orientation Person,Place Difficulty following instructions none Speech Pattern Clear Ambulation Patient Able to Ambulate No Balance Ability to Arise Able, uses arms to help Sitting Balance Steady, safe Standing Balance Steady, wide stance Dynamic Sitting Balance Ability Good Dynamic Standing Balance Ability Fair Transfers Bed Transfer Ability Moderate x 1 (50% assist) Chair Transfer Ability Moderate x 1 (50% assist) Sit to Stand Bed Transfer Ability Minimal x 1 (25% assist) Sit to Stand Chair Transfer Ability Minimal x 1 (25% assist) ROM All Extremities PT ROM Status WFL MMT All Extremities PT MMT WFL Abnormal MMT Grade grossly 3/5 throughout Rehab PT IP prob,goals,plan Problems Date of Evaluation: 09/13/20 PT IP Problems Bed Mobility,Transfers,Gait Rehab Potential Rehab Potential Good Plan PT Intervention Plan Bed Mobility,Transfers,Gait, Therapeutic Exercise PT Plan Frequency BID Duration LOS Discharge Goals Bed Transfer Ability Minimal x 1 (25% assist) Sit to Stand Chair Transfer Ability Contact Guard/Hand Hold Ambulation Assistive Device Rolling Walker Ambulation Distance (feet) 15 Discharge Plan PT Discharge Plan Pt is currently most appropriate for rehab placement due to significant loss of mobility compared to baseline and concerns for safety with gait and transfers . G -code Required No Eval Complexity Eval Charge Codes 97749 - Moderate Complexity
[2020-09-13 11:31] LABS: POC Glucose,Bedside 133 (70-110)
[2020-09-13 11:49] LABS: POC Glucose,Bedside 146 (70-110)
--- NOTE | 2020-09-13 14:24 | PC.NURSE ---
Notifed Dr. Galvan of anaerobic blood culture positive for staphylococcus, lester A gene detected, gram positive cocci in pairs and clusters. Pt put in contact precautions. Vancomycin dosage per pharmacy ordered.
--- NOTE | 2020-09-13 14:47 | HMH.PHACONS ---
- Pharmacy Consult Date: 09/13/20 Time: 14:47 Referring provider: DR. CONROY Reason for Consult:: VANCOMYCIN DOSING Allergies and ADEs:: Allergies Allergy/AdvReac Type Severity Reaction Status Date / Time metoclopramide [From REGLAN] Allergy Mild SHAKES Verified 07/10/20 14:02 Home Medications:: Home Medications Medication Instructions Recorded Confirmed Type Atorvastatin Calcium [Lipitor 10mg 10 mg PO DAILY 12/03/17 09/11/20 History Tab] Pantoprazole Sodium [Protonix 40mg 40 mg PO BID 12/03/17 09/11/20 History tablet] Tramadol HCl [Ultram 50mg 50 mg PO BID PRN 12/03/17 09/11/20 History tablet] rivaroxaban 20 mg tablet 20 mg PO DAILY #90 tab 08/23/19 09/11/20 Rx gabapentin 800 mg tablet 800 mg PO TID 12/21/19 09/11/20 History insulin human U-100 NPH-regulr 90 units SQ DAILY 12/21/19 09/11/20 History 70-30 mix 100 unit/mL subcutaneous susp loratadine 10 mg tablet 10 mg PO DAILY 12/21/19 09/11/20 History omega 5-dxt-cad-fish oil 300 1 cap PO BID 12/21/19 09/11/20 History mg-1,000 mg capsule,delayed release Insulin NPH Hum/Reg Insulin Hm 50 units SQ PM 02/12/20 09/11/20 History [Novolin 70-30 100 Unit/ml Vial] Isosorbide Mononitrate [Imdur 30mg 30 mg PO DAILY 02/12/20 09/11/20 History ER tablet] Multivit,Tx with Iron,Minerals 1 each PO DAILY 02/12/20 09/11/20 History [Complete Multivitamin] PHENobarbitaL [PHENobarbital 1 tab PO TID 02/12/20 09/11/20 History 32.4mg Tablet] Colchicine [Colcrys 0.6mg tablet] 0.6 mg PO DAILY 03/27/20 09/11/20 History Digoxin 125 mcg PO DAILY 03/27/20 09/11/20 History Loperamide HCl [Loperamide] 2 mg PO NEEDED PRN 03/27/20 09/11/20 History Biotin 5 mg PO DAILY 03/28/20 09/11/20 History Nitroglycerin [Nitrostat 0.4mg SL 0.4 mg SL Q5MINP PRN 03/28/20 09/11/20 History Tablet] Ropinirole HCl 2 mg PO HS 03/28/20 09/11/20 History torsemide 100 mg tablet 50 mg PO DAILY #30 tab 04/11/20 09/11/20 Rx Magnesium Oxide 250 mg PO DAILY 06/13/20 09/11/20 History sacubitril 97 mg-valsartan 103 mg 1 tab PO BID #60 tab 08/22/20 09/11/20 Rx tablet bisoproloL fumarate [Bisoprolol 10 mg PO DAILY 08/31/20 09/11/20 History 10mg Tablet] bisoproloL fumarate [Bisoprolol 20 mg PO HS 08/31/20 09/11/20 History 10mg Tablet] Bumetanide 2 mg PO BID 09/01/20 09/11/20 History Metformin HCl [Metformin HCl ER] 500 mg PO QPMWM 09/01/20 09/12/20 History Height: 1.57 m Weight: 93 kg Laboratory Results:: Laboratory Results - last 24 hr 09/12/20 16:05: POC Glucose 127 H 09/12/20 20:59: POC Glucose 174 H 09/13/20 06:12: POC Glucose 146 H 09/13/20 07:46: Sodium 135 L, Potassium 3.5, Chloride 102, Carbon Dioxide 27, Anion Gap 9.5, BUN 13 D, Creatinine 0.70, Estimated Creat Clear 85, Estimated GFR 85, Est GFR ( Amer) 102, Glucose 149 H, Calcium 8.7 09/13/20 11:11: POC Glucose 133 H Medical History: Reports:: Arrhythmia, Atrial Fibrillation, Cardiomyopathy, Congestive Heart Failure, Coronary Artery Disease, Depression, Diabetes Mellitus Type 2, Gastroesophageal Reflux Disease(GERD), Hyperlipidemia, Hypertension, Internal Pacemaker, Palpitations, Seizures Denies:: Cancer, Diabetes Mellitus Type 1, MRSA Assessment and Plan (1) UTI (urinary tract infection) Status: Acute Qualifiers: Urinary tract infection type: acute cystitis Hematuria presence: without hematuria Qualified Code(s): N30.00 - Acute cystitis without hematuria Category: Medical Code(s): N39.0 - Urinary tract infection, site not specified (2) Sepsis Status: Suspected Qualifiers: Sepsis type: sepsis due to unspecified organism Sepsis acute organ dysfunction status: unspecified Qualified Code(s): A41.9 - Sepsis, unspecified organism Category: Medical Code(s): A41.9 - Sepsis, unspecified organism (3) Type 2 diabetes mellitus, with long-term current use of insulin Status: Acute Category: Medical Code(s): E11.9 - Type 2 diabetes mellitus without complications
--- NOTE | 2020-09-13 15:13 | SW/DCPLANNER ---
WENT IN TO SEE THIS PATIENT REGARDING DISCHARGE PLANNING: PATIENT WAS SITTING ON THE SIDE OF THE BED WITH PT PRESENT... I HAD MADE CONTACT WITH [facility] TO SEE IF THEY HAD ANY SKILLED REHAB BEDS AND [facility] SAID THEY ONLY HAVE PERSONAL CARE BEDS WHICH ARE PRIVATE PAY ONLY... I TOLD MS KITCHEN THEY DON'T HAVE ANY BEDS AND SHE REFUSED TO GIVE ME ANOTHER NURSING FACILITY TO CHECK TO SEE IF THEY HAVE BED AVAILABILITY....SHE SAID SHE WASN'T GOING ANYWHERE ELSE.. SHE SAID THEY HAD BEDS AND I TOLD HER I COULD ONLY GO BY WHAT THE PRODUCTION HONING MACHINE OPERATOR TOLD ME... HER SISTER WAS IN THE ROOM AND SHE LIVES WITH HER AND SHE SAID SHE CAN'T TAKE CARE OF HER AND WANTED ME TO SEND IT TO [place] BUT PATIENT REFUSED.... WAITING TO DR CONROY IS HERE IN THE AM AND SEE IF HE CAN CONVINCE HER TO TRISTAN HER MIND....
--- NOTE | 2020-09-13 15:47 | PC.NURSE ---
Addendum entered by Natalie Asif RN 09/13/20 17:00: PT HAS HAD PERIODS OF CONFUSION THIS SHIFT. SHE STATES HER HANDS HURT WHEN YOU TOUCH THEM. THEY ARE VERY SENSITIVE. Original Note: A&OX4. PT HAS TOLERATED ROOM AIR WELL THROUGHOUT SHIFT. RESPIRATIONS REGULAR AND UNLABORED. LUNG SOUNDS BILATERALLY CLEAR. NO COUGH NOTED. NONPITTING EDEMA NOTED TO BLE. HAND DRY STARCH SUPERVISOR EQUAL. +2 PULSES NOTED THROUGHOUT. ACTIVE BOWEL SOUNDS HEARD IN ALL 4 QUADRANTS. SOFT AND NONTENDER ABDOMEN. PT VOIDS PER BATHROOM W STANDBY ASSIST. NO BM REPORTED. PT MOVES INDEPENDENTLY IN THE BED. PT IS IN CONTACT PRECAUTIONS FOR MRSA. FSBS WITHIN NORMAL LIMITS. WILL CONTINUE TO MONITOR. SISTER CAME TO VISIT THIS AFTERNOON. PT REPORTED BACK PAIN ONCE THIS SHIFT, BUT WAS UNABLE TO RECEIVE PAIN MEDS DUE TO LOW BP. PT BEGAN TO SPIKE A TEMP AND WAS ADMINISTERED TYLENOL. PT IS CURRENTLY SITTING IN BED. BED IN LOWEST POSITION. CALL LIGHT WITHIN REACH. VSS. WILL CONTINUE TO MONITOR.
[2020-09-13 17:09] LABS: POC Glucose,Bedside 143 (70-110)
--- NOTE | 2020-09-13 19:14 | PC.NURSE ---
report given to sangeeta
[2020-09-13 21:14] LABS: POC Glucose,Bedside 148 (70-110)
[2020-09-14] VITALS (10 sets, daily range): BP systolic 109–140; BP diastolic 51–63; PULSE 69–82; RESP 18–21; TEMP 36.8–38.1; O2SAT 95–98; BMI 37.5
--- NOTE | 2020-09-14 04:24 | PC.NURSE ---
ABLE TO STATE NAME, , YEAR AND SITUATION. PT. DENIES PAIN, N/V/D, SOA OR DIZZINESS. PT. HAD LARGE BM THIS SHIFT AND DENIES BURNING WHILE VOIDING. +2 NONPITTING EDEMA TO BILAT ANKLES, TOES TENDER TO TOUCH.
[2020-09-14 05:54] LABS: POC Glucose,Bedside 141 (70-110)
[2020-09-14 06:49] LABS: Basophils % 0.3 % (0.1-2.0); Eosinophils # 0.1 K/mm3 (0.0-0.4); Eosinophils % 0.6 % (0.1-12.0); Hematocrit 30.6 % (37.0-47.0); Hemoglobin 9.8 g/dL (12.2-16.2); Lymphocytes # 1.1 K/mm3 (0.7-4.5); Lymphocytes % 13.6 % (10-50); Mean Corpuscular Hemoglobin 32.9 pg (27.0-31.2); Monocytes # 0.5 K/mm3 (0.1-1.0); Monocytes % 5.8 % (1.7-9.3); Neutrophils # 6.5 K/mm3 (1.8-7.8); Neutrophils % 79.8 % (37.0-80.0); Platelet Count 179 K/mm3 (142-424); Red Blood Count 2.97 M/mm3 (4.20-5.40); Red Cell Distribution Width 15.2 % (11.5-17.5); White Blood Count 8.1 K/mm3 (4.8-10.8)
[2020-09-14 06:55] LABS: Chloride 106 mmol/L (98-107)
[2020-09-14 06:56] LABS: Potassium 4.2 mmoL/L (3.5-5.1); Sodium 136 mmol/L (136-145)
[2020-09-14 06:58] LABS: Blood Urea Nitrogen 12 mg/dl (7-17); Creatinine Clearance Estimated 84 mL/min (50-200); Estimated Glomerular Filt Rate 85 ml/min (>60); GFR (African American) 102 ML/MIN (>60)
[2020-09-14 06:59] LABS: Anion Gap 8.2 mEq/L (5-15); Calcium 8.6 mg/dl (8.4-10.2); Carbon Dioxide 26 mmol/L (22.0-30.0); Glucose 125 mg/dl (74-100)
--- NOTE | 2020-09-14 07:13 | HMH.ACPN2 ---
Internal Medicine - PN: Subj *Date: 09/14/20 *Time: 07:13 Interval history: Patient has no complaints this morning other than that her feet hurt. She denies shortness of breath. She denies abdominal pain. Patient had a fever to 101.6 yesterday afternoon. Patient has a single anaerobic blood culture growing a gram-positive cocci in pairs and clusters with mecA gene detected. Patient participated with physical therapy yesterday. It was felt that patient was a candidate for short-term jail rehab. Patient was not agreeable to this if she could not go to a single selected facility. Exam Vital signs and Labs for Last 24 Hours: Temp Pulse Resp BP Pulse Ox 98.9 F 72 20 112/61 95 09/14/20 04:00 09/14/20 04:00 09/14/20 04:00 09/14/20 04:00 09/14/20 04:00 Laboratory Results - last 24 hr 09/13/20 06:12: POC Glucose 146 H 09/13/20 07:46: Sodium 135 L, Potassium 3.5, Chloride 102, Carbon Dioxide 27, Anion Gap 9.5, BUN 13 D, Creatinine 0.70, Estimated Creat Clear 85, Estimated GFR 85, Est GFR ( Amer) 102, Glucose 149 H, Calcium 8.7 09/13/20 11:11: POC Glucose 133 H 09/13/20 16:48: POC Glucose 143 H 09/13/20 20:57: POC Glucose 148 H 09/14/20 05:11: POC Glucose 141 H 09/14/20 06:30: WBC 8.1, RBC 2.97 L, Hgb 9.8 L, Hct 30.6 L, MCV 103.0 H, MCH 32.9 H, MCHC 32.0, RDW 15.2, Plt Count 179 D, MPV 8.0, Neut % (Auto) 79.8, Lymph % (Auto) 13.6, [place] % (Auto) 5.8, Eos % (Auto) 0.6, Baso % (Auto) 0.3, Neut # (Auto) 6.5, Lymph # (Auto) 1.1, [place] # (Auto) 0.5, Eos # (Auto) 0.1, Baso # (Auto) 0.0 09/14/20 06:30: Sodium 136, Potassium 4.2, Chloride 106, Carbon Dioxide 26, Anion Gap 8.2, BUN 12, Creatinine 0.70, Estimated Creat Clear 84, Estimated GFR 85, Est GFR ( Amer) 102, Glucose 125 H, Calcium 8.6 I & O for Last 24 hours: Intake & Output 09/11/20 09/12/20 09/13/20 09/14/20 11:59 11:59 11:59 11:59 Intake Total 917 / 917 1253 / 1253 218 / 2187 Output Total 1275 / 1275 500 / 500 Balance -358 / -358 753 / 753 2186 / 2186 Weight 203 lb 5 oz 205 lb 204 lb 6 oz Microbiology Reports for the Last 24 Hours: Microbiology 09/11/20 15:40 Urine,Catheterized Urine Culture - Final NO GROWTH AFTER 48 HOURS 09/11/20 15:38 Blood Blood Culture - Preliminary NO GROWTH AFTER 48 HOURS 09/11/20 15:38 Blood Blood Culture - Preliminary - Constitutional no acute distress - *Routine HEENT Exam Head: Present: normocephalic Eye: Present: EOMI, PERRL ENT: Present: mucous membranes moist - *Routine Neck Exam Present: supple. Absent: lymphadenopathy - *Routine Respiratory Exam Present: CTA bilaterally - *Routine Cardiovascular Exam Present: RRR - *Routine Abdominal Exam Present: soft, normoactive bowel sounds. Absent: tenderness - *Routine Extremities Exam Absent: cyanosis, clubbing, edema Comments: Left and right ankle tenderness Assessment and Plan (1) Sepsis Status: Suspected Qualifiers: Sepsis type: sepsis due to unspecified organism Sepsis acute organ dysfunction status: unspecified Qualified Code(s): A41.9 - Sepsis, unspecified organism Category: Medical Code(s): A41.9 - Sepsis, unspecified organism (2) UTI (urinary tract infection) Status: Ruled-out Qualifiers: Urinary tract infection type: acute cystitis Hematuria presence: without hematuria Qualified Code(s): N30.00 - Acute cystitis without hematuria Category: Medical Code(s): N39.0 - Urinary tract infection, site not specified (3) Type 2 diabetes mellitus, with long-term current use of insulin Status: Acute Category: Medical Code(s): E11.9 - Type 2 diabetes mellitus without complications; Z79.4 - penitentiary (current) use of insulin (4) Type 2 diabetes mellitus with peripheral neuropathy Status: Acute Category: Medical Code(s): E11.42 - Type 2 diabetes mellitus with diabetic polyneuropathy (5) Diastolic heart fa
--- NOTE | 2020-09-14 08:16 | HMH.ACPN ---
Internal Medicine - PN: Subj *Date: 09/14/20 *Time: 08:16 Exam Vital signs and Labs for Last 24 Hours: Temp Pulse Resp BP Pulse Ox 99.2 F 71 18 115/63 98 09/14/20 07:39 09/14/20 07:39 09/14/20 07:39 09/14/20 07:39 09/14/20 07:39 Laboratory Results - last 24 hr 09/13/20 06:12: POC Glucose 146 H 09/13/20 11:11: POC Glucose 133 H 09/13/20 16:48: POC Glucose 143 H 09/13/20 20:57: POC Glucose 148 H 09/14/20 05:11: POC Glucose 141 H 09/14/20 06:30: WBC 8.1, RBC 2.97 L, Hgb 9.8 L, Hct 30.6 L, MCV 103.0 H, MCH 32.9 H, MCHC 32.0, RDW 15.2, Plt Count 179 D, MPV 8.0, Neut % (Auto) 79.8, Lymph % (Auto) 13.6, [place] % (Auto) 5.8, Eos % (Auto) 0.6, Baso % (Auto) 0.3, Neut # (Auto) 6.5, Lymph # (Auto) 1.1, [place] # (Auto) 0.5, Eos # (Auto) 0.1, Baso # (Auto) 0.0 09/14/20 06:30: Sodium 136, Potassium 4.2, Chloride 106, Carbon Dioxide 26, Anion Gap 8.2, BUN 12, Creatinine 0.70, Estimated Creat Clear 84, Estimated GFR 85, Est GFR ( Amer) 102, Glucose 125 H, Calcium 8.6 I & O for Last 24 hours: Intake & Output 09/11/20 09/12/20 09/13/20 09/14/20 23:59 23:59 23:59 23:59 Intake Total 1929 2307 / 2427 360 / 360 Output Total 850 / 1075 925 / 925 Balance -850 / -1075 1005 / 1005 2307 / 2427 360 / 360 Weight 91.767 kg 92.221 kg 93 kg 92.703 kg Microbiology Reports for the Last 24 Hours: Microbiology 09/11/20 15:40 Urine,Catheterized Urine Culture - Final NO GROWTH AFTER 48 HOURS 09/11/20 15:38 Blood Blood Culture - Preliminary NO GROWTH AFTER 48 HOURS 09/11/20 15:38 Blood Blood Culture - Preliminary Assessment and Plan (1) Sepsis Status: Suspected Qualifiers: Sepsis type: sepsis due to unspecified organism Sepsis acute organ dysfunction status: unspecified Qualified Code(s): A41.9 - Sepsis, unspecified organism Category: Medical Code(s): A41.9 - Sepsis, unspecified organism (2) UTI (urinary tract infection) Status: Ruled-out Qualifiers: Urinary tract infection type: acute cystitis Hematuria presence: without hematuria Qualified Code(s): N30.00 - Acute cystitis without hematuria Category: Medical Code(s): N39.0 - Urinary tract infection, site not specified (3) Type 2 diabetes mellitus, with long-term current use of insulin Status: Acute Category: Medical Code(s): E11.9 - Type 2 diabetes mellitus without complications; Z79.4 - senior care (current) use of insulin (4) Type 2 diabetes mellitus with peripheral neuropathy Status: Acute Category: Medical Code(s): E11.42 - Type 2 diabetes mellitus with diabetic polyneuropathy (5) Diastolic heart failure Status: Chronic Qualifiers: Heart failure chronicity: chronic Qualified Code(s): I50.32 - Chronic diastolic (congestive) heart failure Category: Medical Code(s): I50.30 - Unspecified diastolic (congestive) heart failure (6) Hypertensive disorder Status: Chronic Qualifiers: Hypertension type: essential hypertension Qualified Code(s): I10 - Essential (primary) hypertension Category: Medical Code(s): I10 - Essential (primary) hypertension (7) Nonischemic cardiomyopathy Status: Chronic Category: Medical Code(s): I42.8 - Other cardiomyopathies (8) Altered mental state Status: Resolved Qualifiers: Altered mental status type: unspecified Qualified Code(s): R41.82 - Altered mental status, unspecified Category: Medical Code(s): R41.82 - Altered mental status, unspecified The patient's infection will respond to the chosen ABx?: Yes Is the patient receiving the right drug, dose, and route?: Yes Could a more targeted ABx be ordered?: No (AWAITING CULTURES)
[2020-09-14 11:56] LABS: POC Glucose,Bedside 129 (70-110)
[2020-09-14 16:50] LABS: POC Glucose,Bedside 183 (70-110)
--- NOTE | 2020-09-14 18:17 | PC.NURSE ---
PT IS RESTING IN BED. MEDICATED FOR TEMP 100.5 X2 THIS SHIFT. PT HAS COMPLAINED OF PAIN IN THE RT HAND AND BLE THIS SHIFT. PCP ORDERED TORADOL FOR DISCOMFORT AND PT STATED IT DID HELP. PT IS UNABLE TO WELT DRAWER WITH RT HAND B/C SHE STATES IT'S JUST TO PAINFUL 2+ PITTING EDEMA NOTED TO BLE. PT'S FAMILY WAS HERE TODAY AND STATED THAT PT IS TO WEAK FOR HER TO TAKE HOME AND THE ONLY FACILITY PT IS WILLING TO GO FOR REHAB IS [facility]. FAMILY ASKED IF PT WAS NOT ABLE TO GET IN AT [facility] WOULD HAVING AN EXTENDED STAY IN THE HOSPITAL BE POSSIBLE ( PCP AWARE AND HE STATED THAT PT NEEDS LONGER THAN EXTENDED STAY IN THE HOSPITAL) PCP WANTS BLOOD CULTURES X2 REPEATED IF TEMP IS >101. WILL CONTINUE TO MONITOR.
[2020-09-14 21:56] LABS: POC Glucose,Bedside 154 (70-110)
[2020-09-15] VITALS (7 sets, daily range): BP systolic 104–132; BP diastolic 54–71; PULSE 71–84; RESP 16–22; TEMP 36.7–37.6; O2SAT 97–100; BMI 38.1
--- NOTE | 2020-09-15 02:25 | PC.NURSE ---
Addendum entered by Genet Dean RN 09/15/20 03:34: Right hand supervisor rice milling noted with weakness due to pt unable to fully grasp hand of this RN. Original Note: Pt is alert and oriented x4. Pt has rested well with eyes closed this shift with no new complaints. No acute changes noted from previous shift. PERRLA. Bilateral hand blindstitch machine operator noted equal and strong. Cap refill < 3 seconds. Right hand noted with edema, kept elevated with pillow and applied ice pack to affected area. Pt c/o pain to right hand, BLE, and back. Administered Loratab per MAR x1 thus far. No c/o of further pain upon reassessment. No edema noted to BLE, kept elevated on pillow while lying in bed. Up with assist x1 to BSC, tolerates well. VSS. Remains safe. Call light within reach. Will continue to monitor.
[2020-09-15 06:17] LABS: POC Glucose,Bedside 118 (70-110)
[2020-09-15 06:42] LABS: Basophils % 0.5 % (0.1-2.0); Eosinophils # 0.1 K/mm3 (0.0-0.4); Eosinophils % 1.3 % (0.1-12.0); Hematocrit 31.4 % (37.0-47.0); Hemoglobin 9.8 g/dL (12.2-16.2); Lymphocytes # 1.1 K/mm3 (0.7-4.5); Lymphocytes % 14.9 % (10-50); Mean Corpuscular HGB Conc 31.2 g/dL (31.8-35.4); Mean Corpuscular Hemoglobin 33.1 pg (27.0-31.2); Mean Platelet Volume 8.7 fl (7.4-10.4); Monocytes # 0.4 K/mm3 (0.1-1.0); Monocytes % 5.8 % (1.7-9.3); Neutrophils # 5.4 K/mm3 (1.8-7.8); Neutrophils % 77.5 % (37.0-80.0); Platelet Count 201 K/mm3 (142-424); Red Blood Count 2.96 M/mm3 (4.20-5.40); Red Cell Distribution Width 15.5 % (11.5-17.5)
[2020-09-15 06:46] LABS: Chloride 109 mmol/L (98-107); Potassium 4.5 mmoL/L (3.5-5.1); Sodium 138 mmol/L (136-145)
[2020-09-15 06:49] LABS: Blood Urea Nitrogen 17 mg/dl (7-17); Creatinine Clearance Estimated 85 mL/min (50-200); Estimated Glomerular Filt Rate 72 ml/min (>60); GFR (African American) 88 ML/MIN (>60)
[2020-09-15 06:50] LABS: Anion Gap 10.5 mEq/L (5-15); Carbon Dioxide 23 mmol/L (22.0-30.0)
--- NOTE | 2020-09-15 06:54 | PC.NURSE ---
Pt remained afebrile t/o shift thus far. Tolerated amb to bathroom with assist x1 and walker well this am.
--- NOTE | 2020-09-15 06:56 | PC.NURSE ---
Refused seizure pads this shift.
--- NOTE | 2020-09-15 07:01 | XR_ITS ---
PROCEDURE: XR HAND RT MIN 3V CLINICAL INDICATION: swelling of 3rd mcp, pain of 3rd mcp COMPARISON: No exams were available for comparison FINDINGS: No fracture or dislocation. No lytic or blastic change. There is normal mineralization. Minimal spurring changes are present at the distal aspect of the 3rd metacarpal. Other findings:None. IMPRESSION: Mild degenerative changes, no acute finding Dictated by: Momo Jorgensen MD 09/15/2020 10:04 Momo Jorgensen MD in [place] 09/15/2020 10:04
--- NOTE | 2020-09-15 07:02 | HMH.ACPN2 ---
Internal Medicine - PN: Subj *Date: 09/15/20 *Time: 07:02 Interval history: Patient has no new complaints this morning. Patient had low-grade fevers to 100.5 throughout the day yesterday but no fevers in the late evening and overnight. She complains of right hand pain which was identified yesterday. Patient has already ambulated to the bathroom under her own power this morning. There is a disagreement between the patient and her family regarding her ability to return home although the patient is intent upon returning home once she is discharged from the hospital. Exam Vital signs and Labs for Last 24 Hours: Temp Pulse Resp BP Pulse Ox 98.3 F 71 20 114/62 98 09/15/20 04:00 09/15/20 04:00 09/15/20 04:00 09/15/20 04:00 09/15/20 04:00 Laboratory Results - last 24 hr 09/14/20 11:38: POC Glucose 129 H 09/14/20 15:50: POC Glucose 183 H 09/14/20 20:28: POC Glucose 154 H 09/15/20 05:10: POC Glucose 118 H 09/15/20 06:21: WBC 7.0, RBC 2.96 L, Hgb 9.8 L, Hct 31.4 L, MCV 106.0 H, MCH 33.1 H, MCHC 31.2 L, RDW 15.5, Plt Count 201, MPV 8.7, Neut % (Auto) 77.5, Lymph % (Auto) 14.9, [place] % (Auto) 5.8, Eos % (Auto) 1.3, Baso % (Auto) 0.5, Neut # (Auto) 5.4, Lymph # (Auto) 1.1, [place] # (Auto) 0.4, Eos # (Auto) 0.1, Baso # (Auto) 0.0 09/15/20 06:21: Sodium 138, Potassium 4.5, Chloride 109 H, Carbon Dioxide 23, Anion Gap 10.5, BUN 17 D, Creatinine 0.80, Estimated Creat Clear 85, Estimated GFR 72, Est GFR ( Amer) 88, Calcium 9.0 I & O for Last 24 hours: Intake & Output 09/12/20 09/13/20 09/14/20 09/15/20 11:59 11:59 11:59 11:59 Intake Total 917 / 917 1253 / 1253 2427 / 2427 1190 / 1190 Output Total 1275 / 1275 500 / 500 500 / 500 1000 / 1000 Balance -358 / -358 753 / 753 1927 / 1927 190 / 190 Weight 203 lb 5 oz 205 lb 204 lb 6 oz 207 lb 5 oz Microbiology Reports for the Last 24 Hours: Microbiology 09/11/20 15:38 Blood Blood Culture - Preliminary Gram Positive Cocci Narrative: Patient looks well. Lungs are clear. Heart rate is irregular. Abdomen is soft. Right hand exam reveals a bruise over the proximal dorsal aspect of the hand but more noticeable this morning is swelling that has developed at the third MCP joint with associated tenderness that is limiting the mobility of the second third and fourth fingers of the right hand. Assessment and Plan (1) Sepsis Status: Suspected Qualifiers: Sepsis type: sepsis due to unspecified organism Sepsis acute organ dysfunction status: unspecified Qualified Code(s): A41.9 - Sepsis, unspecified organism Category: Medical Code(s): A41.9 - Sepsis, unspecified organism (2) UTI (urinary tract infection) Status: Ruled-out Qualifiers: Urinary tract infection type: acute cystitis Hematuria presence: without hematuria Qualified Code(s): N30.00 - Acute cystitis without hematuria Category: Medical Code(s): N39.0 - Urinary tract infection, site not specified (3) Type 2 diabetes mellitus, with long-term current use of insulin Status: Acute Category: Medical Code(s): E11.9 - Type 2 diabetes mellitus without complications; Z79.4 - termite treater helper (current) use of insulin (4) Type 2 diabetes mellitus with peripheral neuropathy Status: Acute Category: Medical Code(s): E11.42 - Type 2 diabetes mellitus with diabetic polyneuropathy (5) Diastolic heart failure Status: Chronic Qualifiers: Heart failure chronicity: chronic Qualified Code(s): I50.32 - Chronic diastolic (congestive) heart failure Category: Medical Code(s): I50.30 - Unspecified diastolic (congestive) heart failure (6) Hypertensive disorder Status: Chronic Qualifiers: Hypertension type: essential hypertension Qualified Code(s): I10 - Essential (primary) hypertension Category: Medical Code(s): I10 - Essential (primary) hypertension (7) Nonischemic cardiomyopathy Status: Chronic Category: Medical Code(s): I4
[2020-09-15 07:56] LABS: Glucose 135 mg/dl (74-100)
--- NOTE | 2020-09-15 11:21 | SW/DCPLANNER ---
Addendum entered by Prabha Woods 09/18/20 10:02: SENT REFERRAL TO [facility] THIS MORNING AND CALLED TO LET THEM KNOW MS KITCHEN DISCHARGED YESTERDAY AND I HAVE SENT ORDERS AND UPDATES FOR THEM TO MAKE CONTACT WITH PATIENT TODAY TO START SERVICES... TERESITA AT [facility] WAS IN AGREEMENT OF THE PLAN. Original Note: I have spoke with this patient regarding possible need for home health services at discharge. Patient stated that she wants to use [facility] of . Patient did state that if [facility] could not service her for any reason she would not have a preference as to which agency she would use. Patient stated that she currently has a rolling walker at home. Discharge date is unknown at this time but CM will follow up with home health at discharge.
[2020-09-15 11:50] LABS: POC Glucose,Bedside 202 (70-110)
--- NOTE | 2020-09-15 13:49 | DIET.NUTRFU ---
Pt with increasingly poor PO intakes, has refused 6 meals t/o stay and not eaten over 50% at any meal. She says she has not regained appetite or taste since having COVID. Anxiety and weakness are factors as well. She initially refused supplementation saying she is sick of it. She has been educated on importance nutrition as well as encouraged to request preferences/supplements/snacks but has not done so. Varied supplements added to diet order BID, continuing to encourage increase intakes. BG are moderate- ~150, 2+ edema, 6# weight gain t/o stay- 5 days.
--- NOTE | 2020-09-15 16:23 | PC.NURSE ---
PT IS RESTING IN BED. PT TOLERATED SITTING UP IN THE CHAIR FOR SEVERAL HOURS THIS SHIFT AND HAS AMBULATED TO THE BATHROOM WITH 1 ASSIST. ALERT AND ORIENTED X4. PT STATES SHE FEELS SOMEWHAT BETTER TODAY. PT STATES HER PLAN IS TO BE ABLE TO GO BACK HOME WHEN DISCHARGED. LUNG SOUNDS CLEAR. ABDOMEN SOFT/NON TENDER WITH ACTIVE BOWEL SOUNDS. PT STILL HAS 2 + PITTING EDEMA NOTED TO BLE. RT HAND IS STILL BRUISED AND TENDER ( PT HAS BEEN USING ICE PACK FOR SWELLING/COMFORT) TEMP THIS AFTERNOON WAS 99.7. WILL CONTINUE TO MONITOR.
[2020-09-15 17:09] LABS: POC Glucose,Bedside 122 (70-110)
[2020-09-15 20:18] LABS: POC Glucose,Bedside 205 (70-110)
[2020-09-15 21:11] LABS: Vancomycin,Trough 15.2 ug/mL (5.0-10.0)
[2020-09-16 00:17] VITALS: BP 126/64; PULSE 70; RESP 20; TEMP 36.9; O2SAT 96
[2020-09-16 04:00] VITALS: BP 120/59; PULSE 72; RESP 16; TEMP 36.9; O2SAT 95
--- NOTE | 2020-09-16 04:21 | PC.NURSE ---
Pt has slept well this shift. Cont to c/o pain in right hand, but hand shows no s/sx trauma. Denies pain. Denies any problems with urination. Pt did c/o one episode of shortness of air, which passed without need for intervention. Lung remain clear, but diminished.
[2020-09-16 05:52] VITALS: BMI 38.0
[2020-09-16 05:52] LABS: POC Glucose,Bedside 143 (70-110)
[2020-09-16 06:31] LABS: Basophils % 0.3 % (0.1-2.0); Eosinophils # 0.1 K/mm3 (0.0-0.4); Eosinophils % 1.2 % (0.1-12.0); Hematocrit 30.6 % (37.0-47.0); Lymphocytes # 1.4 K/mm3 (0.7-4.5); Lymphocytes % 19.8 % (10-50); Mean Corpuscular HGB Conc 32.7 g/dL (31.8-35.4); Mean Corpuscular Hemoglobin 33.1 pg (27.0-31.2); Mean Corpuscular Volume 101.3 fl (81-99); Mean Platelet Volume 9.2 fl (7.4-10.4); Monocytes # 0.4 K/mm3 (0.1-1.0); Monocytes % 6.1 % (1.7-9.3); Neutrophils % 72.6 % (37.0-80.0); Platelet Count 252 K/mm3 (142-424); Red Blood Count 3.02 M/mm3 (4.20-5.40); Red Cell Distribution Width 15.4 % (11.5-17.5); White Blood Count 6.9 K/mm3 (4.8-10.8)
[2020-09-16 06:57] LABS: Chloride 110 mmol/L (98-107); Sodium 138 mmol/L (136-145)
[2020-09-16 07:01] LABS: Blood Urea Nitrogen 17 mg/dl (7-17); Calcium 9.1 mg/dl (8.4-10.2); Carbon Dioxide 20 mmol/L (22.0-30.0); Creatinine Clearance Estimated 85 mL/min (50-200); Estimated Glomerular Filt Rate 85 ml/min (>60); GFR (African American) 102 ML/MIN (>60); Glucose 138 mg/dl (74-100)
[2020-09-16 08:00] VITALS: BP 135/71; PULSE 71; RESP 19; TEMP 36.7; O2SAT 91
--- NOTE | 2020-09-16 08:22 | CT_ITS ---
Redness, pain and swelling mainly around 3rd metacarpal PROCEDURE: CT HAND RT WO CON CLINICAL HISTORY: right 3rd MCP swelling , r/o abscess Right hand redness and swelling mainly around the 3rd metacarpal with limited range of motion COMPARISON: CR XR HAND RT MIN 3V from 09/15/2020 TECHNIQUE: Axial images obtained with sagittal and coronal reformats. All CT scans at the facility use one or more dose reduction, viz: automated exposure control, ma/kV adjustment per patient size (including targeted exams where dose is matched to indication, i.e. head), or iterative reconstruction technique. FINDINGS: Evaluation for abscess is limited without IV contrast. No obvious bony destructive process is evident. There are mild osteoarthritic changes at the metacarpophalangeal joints. There is mild generalized soft tissue swelling along the dorsal aspect of the hand and at the 3rd and 4th carpal metacarpophalangeal junction dorsally. There is also soft tissue swelling at the 3rd PIP joint. The no bony destructive process evident. No obvious abscess. IMPRESSION: Mild soft tissue swelling along the dorsal aspect of the hand at the 3rd 4th metacarpophalangeal joint and 3rd PIP joint. No obvious abscess or bony destruction. Dictated by: Momo Jorgensen MD 09/16/2020 10:36 Momo Jorgensen MD in [place] 09/16/2020 10:36
--- NOTE | 2020-09-16 08:28 | HMH.ACPN2 ---
Internal Medicine - PN: Subj *Date: 09/16/20 *Time: 08:28 Interval history: Patient has no new complaints this morning. Her right hand remains painful and swollen. X-ray yesterday did not reveal any fracture Exam Vital signs and Labs for Last 24 Hours: Temp Pulse Resp BP Pulse Ox 98.0 F 71 19 135/71 91 L 09/16/20 08:00 09/16/20 08:00 09/16/20 08:00 09/16/20 08:00 09/16/20 08:00 Laboratory Results - last 24 hr 09/15/20 11:41: POC Glucose 202 H 09/15/20 17:00: POC Glucose 122 H 09/15/20 20:08: POC Glucose 205 H 09/15/20 20:16: Vancomycin Trough 15.2 H 09/16/20 05:43: POC Glucose 143 H 09/16/20 06:00: WBC 6.9, RBC 3.02 L, Hgb 10.0 L, Hct 30.6 L, MCV 101.3 H, MCH 33.1 H, MCHC 32.7, RDW 15.4, Plt Count 252 D, MPV 9.2, Neut % (Auto) 72.6, Lymph % (Auto) 19.8, [place] % (Auto) 6.1, Eos % (Auto) 1.2, Baso % (Auto) 0.3, Neut # (Auto) 5.0, Lymph # (Auto) 1.4, [place] # (Auto) 0.4, Eos # (Auto) 0.1, Baso # (Auto) 0.0 09/16/20 06:00: Sodium 138, Potassium 5.0, Chloride 110 H, Carbon Dioxide 20 L, Anion Gap 13.0, BUN 17, Creatinine 0.70, Estimated Creat Clear 85, Estimated GFR 85, Est GFR ( Amer) 102, Glucose 138 H, Calcium 9.1 I & O for Last 24 hours: Intake & Output 09/13/20 09/14/20 09/15/20 09/16/20 11:59 11:59 11:59 11:59 Intake Total 1253 / 1253 2427 / 2427 1670 / 1670 512 / 512 Output Total 500 / 500 500 / 500 1000 / 1000 1200 / 1200 Balance 753 / 753 1927 / 1927 670 / 670 -688 / -688 Weight 205 lb 204 lb 6 oz 207 lb 5 oz 206 lb 9 oz Microbiology Reports for the Last 24 Hours: Microbiology 09/11/20 15:38 Blood Blood Culture - Preliminary Staphylococcus epidermidis Narrative: Patient is in no distress. Heart rate is irregular. Lungs are clear. Abdomen is soft. Right hand continues to have swelling on the dorsal aspect of the hand over the third MCP joint with mild erythema, heat, swelling in the same area with decreased range of motion in the hand. Assessment and Plan (1) Sepsis Status: Resolved Qualifiers: Sepsis type: sepsis due to unspecified organism Sepsis acute organ dysfunction status: unspecified Qualified Code(s): A41.9 - Sepsis, unspecified organism Category: Medical Code(s): A41.9 - Sepsis, unspecified organism (2) UTI (urinary tract infection) Status: Ruled-out Qualifiers: Urinary tract infection type: acute cystitis Hematuria presence: without hematuria Qualified Code(s): N30.00 - Acute cystitis without hematuria Category: Medical Code(s): N39.0 - Urinary tract infection, site not specified (3) Type 2 diabetes mellitus, with long-term current use of insulin Status: Acute Category: Medical Code(s): E11.9 - Type 2 diabetes mellitus without complications; Z79.4 - long term (current) use of insulin (4) Type 2 diabetes mellitus with peripheral neuropathy Status: Acute Category: Medical Code(s): E11.42 - Type 2 diabetes mellitus with diabetic polyneuropathy (5) Diastolic heart failure Status: Chronic Qualifiers: Heart failure chronicity: chronic Qualified Code(s): I50.32 - Chronic diastolic (congestive) heart failure Category: Medical Code(s): I50.30 - Unspecified diastolic (congestive) heart failure (6) Hypertensive disorder Status: Chronic Qualifiers: Hypertension type: essential hypertension Qualified Code(s): I10 - Essential (primary) hypertension Category: Medical Code(s): I10 - Essential (primary) hypertension (7) Nonischemic cardiomyopathy Status: Chronic Category: Medical Code(s): I42.8 - Other cardiomyopathies (8) Altered mental state Status: Resolved Qualifiers: Altered mental status type: unspecified Qualified Code(s): R41.82 - Altered mental status, unspecified Category: Medical Code(s): R41.82 - Altered mental status, unspecified (9) Right hand pain Status: Acute Category: Medical Code(s): M79.641 - Pain in right li
--- NOTE | 2020-09-16 09:42 | HMH.PHACONS ---
- Pharmacy Consult Date: 09/16/20 Time: 09:42 Referring provider: DR. CONROY Reason for Consult:: VANCOMYCIN TROUGH LEVEL Allergies and ADEs:: Allergies Allergy/AdvReac Type Severity Reaction Status Date / Time metoclopramide [From REGLAN] Allergy Mild SHAKES Verified 07/10/20 14:02 Home Medications:: Home Medications Medication Instructions Recorded Confirmed Type Atorvastatin Calcium [Lipitor 10mg 10 mg PO DAILY 12/03/17 09/11/20 History Tab] Pantoprazole Sodium [Protonix 40mg 40 mg PO BID 12/03/17 09/11/20 History tablet] Tramadol HCl [Ultram 50mg 50 mg PO BID PRN 12/03/17 09/11/20 History tablet] rivaroxaban 20 mg tablet 20 mg PO DAILY #90 tab 08/23/19 09/11/20 Rx gabapentin 800 mg tablet 800 mg PO TID 12/21/19 09/11/20 History insulin human U-100 NPH-regulr 90 units SQ DAILY 12/21/19 09/11/20 History 70-30 mix 100 unit/mL subcutaneous susp loratadine 10 mg tablet 10 mg PO DAILY 12/21/19 09/11/20 History omega 9-vpx-vyz-fish oil 300 1 cap PO BID 12/21/19 09/11/20 History mg-1,000 mg capsule,delayed release Insulin NPH Hum/Reg Insulin Hm 50 units SQ PM 02/12/20 09/11/20 History [Novolin 70-30 100 Unit/ml Vial] Isosorbide Mononitrate [Imdur 30mg 30 mg PO DAILY 02/12/20 09/11/20 History ER tablet] Multivit,Tx with Iron,Minerals 1 each PO DAILY 02/12/20 09/11/20 History [Complete Multivitamin] PHENobarbitaL [PHENobarbital 1 tab PO TID 02/12/20 09/11/20 History 32.4mg Tablet] Colchicine [Colcrys 0.6mg tablet] 0.6 mg PO DAILY 03/27/20 09/11/20 History Digoxin 125 mcg PO DAILY 03/27/20 09/11/20 History Loperamide HCl [Loperamide] 2 mg PO NEEDED PRN 03/27/20 09/11/20 History Biotin 5 mg PO DAILY 03/28/20 09/11/20 History Nitroglycerin [Nitrostat 0.4mg SL 0.4 mg SL Q5MINP PRN 03/28/20 09/11/20 History Tablet] Ropinirole HCl 2 mg PO HS 03/28/20 09/11/20 History torsemide 100 mg tablet 50 mg PO DAILY #30 tab 04/11/20 09/11/20 Rx Magnesium Oxide 250 mg PO DAILY 06/13/20 09/11/20 History sacubitril 97 mg-valsartan 103 mg 1 tab PO BID #60 tab 08/22/20 09/11/20 Rx tablet bisoproloL fumarate [Bisoprolol 10 mg PO DAILY 08/31/20 09/11/20 History 10mg Tablet] bisoproloL fumarate [Bisoprolol 20 mg PO HS 08/31/20 09/11/20 History 10mg Tablet] Bumetanide 2 mg PO BID 09/01/20 09/11/20 History Metformin HCl [Metformin HCl ER] 500 mg PO QPMWM 09/01/20 09/12/20 History Height: 1.57 m Weight: 93.695 kg Laboratory Results:: Laboratory Results - last 24 hr 09/15/20 11:41: POC Glucose 202 H 09/15/20 17:00: POC Glucose 122 H 09/15/20 20:08: POC Glucose 205 H 09/15/20 20:16: Vancomycin Trough 15.2 H 09/16/20 05:43: POC Glucose 143 H 09/16/20 06:00: WBC 6.9, RBC 3.02 L, Hgb 10.0 L, Hct 30.6 L, MCV 101.3 H, MCH 33.1 H, MCHC 32.7, RDW 15.4, Plt Count 252 D, MPV 9.2, Neut % (Auto) 72.6, Lymph % (Auto) 19.8, [place] % (Auto) 6.1, Eos % (Auto) 1.2, Baso % (Auto) 0.3, Neut # (Auto) 5.0, Lymph # (Auto) 1.4, [place] # (Auto) 0.4, Eos # (Auto) 0.1, Baso # (Auto) 0.0 09/16/20 06:00: Sodium 138, Potassium 5.0, Chloride 110 H, Carbon Dioxide 20 L, Anion Gap 13.0, BUN 17, Creatinine 0.70, Estimated Creat Clear 85, Estimated GFR 85, Est GFR ( Amer) 102, Glucose 138 H, Calcium 9.1 Medical History: Reports:: Arrhythmia, Atrial Fibrillation, Cardiomyopathy, Congestive Heart Failure, Coronary Artery Disease, Depression, Diabetes Mellitus Type 2, Gastroesophageal Reflux Disease(GERD), Hyperlipidemia, Hypertension, Internal Pacemaker, Palpitations, Seizures Denies:: Cancer, Diabetes Mellitus Type 1, MRSA Assessment and Plan (1) Sepsis Status: Resolved Qualifiers: Sepsis type: sepsis due to unspecified organism Sepsis acute organ dysfunction status: unspecified Qualified Code(s): A41.9 - Sepsis, unspecified organism Category: Medical Code(s): A41.9 - Sepsis, unspecified organism (2) UTI (urinary tract infection) Status: Ruled-out Qualifiers: Urinary tract infectio
[2020-09-16 11:01] VITALS: BP 125/52; PULSE 78; RESP 17; TEMP 36.6; O2SAT 99
--- NOTE | 2020-09-16 11:25 | HMH.ACPN ---
Internal Medicine - PN: Subj *Date: 09/16/20 *Time: 11:25 Exam Vital signs and Labs for Last 24 Hours: Temp Pulse Resp BP Pulse Ox 97.8 F 78 17 125/52 L 99 09/16/20 11:01 09/16/20 11:01 09/16/20 11:01 09/16/20 11:01 09/16/20 11:01 Laboratory Results - last 24 hr 09/15/20 11:41: POC Glucose 202 H 09/15/20 17:00: POC Glucose 122 H 09/15/20 20:08: POC Glucose 205 H 09/15/20 20:16: Vancomycin Trough 15.2 H 09/16/20 05:43: POC Glucose 143 H 09/16/20 06:00: WBC 6.9, RBC 3.02 L, Hgb 10.0 L, Hct 30.6 L, MCV 101.3 H, MCH 33.1 H, MCHC 32.7, RDW 15.4, Plt Count 252 D, MPV 9.2, Neut % (Auto) 72.6, Lymph % (Auto) 19.8, [place] % (Auto) 6.1, Eos % (Auto) 1.2, Baso % (Auto) 0.3, Neut # (Auto) 5.0, Lymph # (Auto) 1.4, [place] # (Auto) 0.4, Eos # (Auto) 0.1, Baso # (Auto) 0.0 09/16/20 06:00: Sodium 138, Potassium 5.0, Chloride 110 H, Carbon Dioxide 20 L, Anion Gap 13.0, BUN 17, Creatinine 0.70, Estimated Creat Clear 85, Estimated GFR 85, Est GFR ( Amer) 102, Glucose 138 H, Calcium 9.1 I & O for Last 24 hours: Intake & Output 09/13/20 09/14/20 09/15/20 09/16/20 23:59 23:59 23:59 23:59 Intake Total 2307 / 2427 840 / 940 1430 / 1430 272 / 272 Output Total 1100 / 1100 900 / 900 700 / 700 Balance 2307 / 2427 -260 / -160 530 / 530 -428 / -428 Weight 93 kg 92.703 kg 94.035 kg 93.695 kg Microbiology Reports for the Last 24 Hours: Microbiology 09/11/20 15:38 Blood Blood Culture - Preliminary Staphylococcus epidermidis Assessment and Plan (1) Sepsis Status: Resolved Qualifiers: Sepsis type: sepsis due to unspecified organism Sepsis acute organ dysfunction status: unspecified Qualified Code(s): A41.9 - Sepsis, unspecified organism Category: Medical Code(s): A41.9 - Sepsis, unspecified organism (2) UTI (urinary tract infection) Status: Ruled-out Qualifiers: Urinary tract infection type: acute cystitis Hematuria presence: without hematuria Qualified Code(s): N30.00 - Acute cystitis without hematuria Category: Medical Code(s): N39.0 - Urinary tract infection, site not specified (3) Type 2 diabetes mellitus, with long-term current use of insulin Status: Acute Category: Medical Code(s): E11.9 - Type 2 diabetes mellitus without complications; Z79.4 - activities manager (current) use of insulin (4) Type 2 diabetes mellitus with peripheral neuropathy Status: Acute Category: Medical Code(s): E11.42 - Type 2 diabetes mellitus with diabetic polyneuropathy (5) Diastolic heart failure Status: Chronic Qualifiers: Heart failure chronicity: chronic Qualified Code(s): I50.32 - Chronic diastolic (congestive) heart failure Category: Medical Code(s): I50.30 - Unspecified diastolic (congestive) heart failure (6) Hypertensive disorder Status: Chronic Qualifiers: Hypertension type: essential hypertension Qualified Code(s): I10 - Essential (primary) hypertension Category: Medical Code(s): I10 - Essential (primary) hypertension (7) Nonischemic cardiomyopathy Status: Chronic Category: Medical Code(s): I42.8 - Other cardiomyopathies (8) Altered mental state Status: Resolved Qualifiers: Altered mental status type: unspecified Qualified Code(s): R41.82 - Altered mental status, unspecified Category: Medical Code(s): R41.82 - Altered mental status, unspecified (9) Right hand pain Status: Acute Category: Medical Code(s): M79.641 - Pain in right hand (10) Staphylococcus epidermidis bacteremia Status: Ruled-out Category: Medical Code(s): R78.81 - Bacteremia; B95.7 - Other staphylococcus as the cause of diseases classified elsewhere The patient's infection will respond to the chosen ABx?: Yes Is the patient receiving the right drug, dose, and route?: Yes Could a more targeted ABx be ordered?: No
[2020-09-16 11:58] LABS: POC Glucose,Bedside 156 (70-110)
--- NOTE | 2020-09-16 15:21 | PC.NURSE ---
Pt has refused all meals today/yesterday. Continuing to alter diet order to provide pt with varied nutritional supplementation per pt preferences. BG are moderate-~200, 1-2+ edema, total weight gain t/o stay 4#
[2020-09-16 15:24] LABS: POC Glucose,Bedside 126 (70-110)
[2020-09-16 15:29] VITALS: BP 128/48; PULSE 74; RESP 19; TEMP 36.6; O2SAT 98
--- NOTE | 2020-09-16 18:23 | PC.NURSE ---
Pt is alert and oriented and able to make needs known. RR even and unlabored. CB in reach. VSS. NAD. Called and spoke with radiology kai in [place] to ct of R hand and she is going to fax report of upload in [facility]. CB in reach. IV ABT continues. Will cont to mx this shift. R hand is slightly edematous and red/warm to touch. Pulses 2 plus.
--- NOTE | 2020-09-16 19:08 | PC.NURSE ---
Received hard copy report on ct of R hand and notified Dr. Cole santiago results
[2020-09-16 20:00] VITALS: BP 111/49; PULSE 72; RESP 22; TEMP 36.9; O2SAT 96
--- NOTE | 2020-09-16 21:29 | PC.NURSE ---
She is A&Ox4. She has been resting in bed. Continues in Contact precautions for MRSA. She reports having diarrhea on 09/16/20. Denies nausea and vomiting. Denies pain. Glucose was 150 at HS. She reports that she ambulates with a walker. Refused bedtime snack stating that she had chicken and dumplings from [employer] for supper.
[2020-09-16 22:28] LABS: POC Glucose,Bedside 150 (70-110)
[2020-09-17] VITALS: BP 109/72; PULSE 73; RESP 20; TEMP 37; O2SAT 98
--- NOTE | 2020-09-17 02:05 | PC.NURSE ---
NO ACUTE CHANGES SINCE S. CALL, RN NOTE EARLIER IN SHIFT. PT HAS RESTED WELL. VSS. WILL CONTINUE TO MONITOR.
[2020-09-17 04:00] VITALS: BP 114/59; PULSE 71; RESP 20; TEMP 36.6; O2SAT 97
[2020-09-17 05:00] VITALS: BMI 37.0
[2020-09-17 05:54] LABS: POC Glucose,Bedside 132 (70-110)
[2020-09-17 07:19] LABS: Chloride 110 mmol/L (98-107); Sodium 138 mmol/L (136-145)
[2020-09-17 07:20] LABS: Potassium 5.1 mmoL/L (3.5-5.1)
[2020-09-17 07:22] LABS: Basophils % 0.7 % (0.1-2.0); Blood Urea Nitrogen 12 mg/dl (7-17); Creatinine Clearance Estimated 83 mL/min (50-200); Eosinophils # 0.1 K/mm3 (0.0-0.4); Eosinophils % 1.8 % (0.1-12.0); Estimated Glomerular Filt Rate 72 ml/min (>60); GFR (African American) 88 ML/MIN (>60); Hematocrit 30.8 % (37.0-47.0); Lymphocytes # 0.8 K/mm3 (0.7-4.5); Lymphocytes % 18.4 % (10-50); Mean Corpuscular HGB Conc 32.4 g/dL (31.8-35.4); Mean Corpuscular Hemoglobin 33.6 pg (27.0-31.2); Mean Corpuscular Volume 103.7 fl (81-99); Mean Platelet Volume 8.1 fl (7.4-10.4); Monocytes # 0.3 K/mm3 (0.1-1.0); Monocytes % 5.8 % (1.7-9.3); Neutrophils # 3.2 K/mm3 (1.8-7.8); Neutrophils % 73.3 % (37.0-80.0); Platelet Count 255 K/mm3 (142-424); Red Blood Count 2.97 M/mm3 (4.20-5.40); White Blood Count 4.4 K/mm3 (4.8-10.8)
[2020-09-17 07:23] LABS: Anion Gap 11.1 mEq/L (5-15); Calcium 9.5 mg/dl (8.4-10.2); Carbon Dioxide 22 mmol/L (22.0-30.0); Glucose 132 mg/dl (74-100)
[2020-09-17 07:44] LABS: Erythrocyte Sedimentation Rate > 140 mm/hr (0-30)
[2020-09-17 07:54] VITALS: BP 125/54; PULSE 71; RESP 19; TEMP 36.8; O2SAT 100
--- NOTE | 2020-09-17 08:20 | HMH.DCSUM ---
General - General Admission date:: 09/11/20 Discharge date: 09/17/20 HPI HPI: 65-year-old female with recent hospitalization for COVID-19 pneumonia return to the emergency department yesterday with altered mental status and inability to urinate according to people she lives with. Patient was febrile on presentation and work-up revealed mild elevation of white blood cell count, hypotension, altered mental status and labs raise suspicion of urinary tract infection. Patient was admitted to the hospital earlier this year with pyelonephritis and just prior to her COVID-19 admission patient had a urinary tract infection treated as an outpatient. Patient was started on Vanco and Zosyn which was later changed to cefepime. This morning she is able to answer yes and no questions but can give very little history. She does report she has not been wearing her oxygen at home that she was given at discharge from her hospitalization for COVID-19 pneumonia. She denies dysuria, hematuria, urinary urgency. She cannot recall whether she had difficulty urinating yesterday. She admits her memory is rather poor regarding the events of yesterday. Hospital Course Hospital Course: Patient was admitted with a suspected urinary tract infection with possible bacteremia initially given Zosyn and vancomycin in the emergency department. These antibiotics were discontinued in favor of cefepime due to patient's recent hospitalizations or outpatient treatment of urinary tract infections that grew either E. coli or Klebsiella. Patient had good initial response to cefepime with decrease in white count. While she was significantly febrile on admission fevers trended down although recurred intermittently to lower degrees. After 48 hours of admission patient had a blood culture suggestive of MRSA and vancomycin was added to her regimen. Ultimately this blood culture grew staph epidermidis and was the only positive blood culture out of 4 drawn on presentation. This was considered a contaminant. Patient did remain on cefepime and vancomycin while awaiting other cultures. Ultimately urine culture was negative for any bacterial growth. 3 out of the other 4 blood cultures were negative for bacterial growth. About midway to the hospitalization patient developed pain and redness in the dorsum of the right hand extending to the MCP and the PIP joint of the middle finger. X-ray was negative for fracture. Patient had a follow-up CT scan on September 16 to rule out intra-articular abscess. CT scan was negative for abscess. No source of infection was ever found for the patient's sepsis presentation. At discharge patient was advised to continue ciprofloxacin she had at home from prior UTI. Patient will follow-up in the office on September 19 at 1030. Patient has diabetes which was managed with sliding scale insulin coverage during hospitalization Patient had a recent hospitalization for COVID-19 pneumonia. Patient's IgG was positive on presentation to the emergency department. Chest x-ray showed improvement in infiltrates related to COVID-19 pneumonia. PT and OT were consulted during hospitalization. Initially it was recommended patient be transferred to retirement facility for further rehab. Patient only wanted to go to [facility] which had no beds available. There was some disagreement between the patient and her family about her ability to return home. Ultimately the patient was discharged to home. Patient will be discharged home. Home health will be requested for PT, OT, retirement for medication monitoring and vital sign monitoring Patient has known nonischemic cardiomyopathy. She was maintained on Entresto and bisoprolol during hospitalization. There were no signs of fluid overload and diuretics were held Objective Vital signs: Temp Pulse Resp BP Pulse Ox 98.2 F 71 19 125/54 L 100 09/17/20 07:54 09/17/20 07:54 09/17/20 07:54 09/17/20
== END 2020-09-17 11:00 | disposition home health service (06) | DRG 872 ==
LOC: ER 15:56 → 2ND 17:52
PROVIDERS: Admitting Provider Internal Medicine Adolescent Medicine; Emergency Provider Emergency Medicine; PCP Family Medicine; Visit Provider Family Medicine
DX: I48.11 Longstanding persistent atrial fibrillation; I50.32 Chronic diastolic (congestive) heart failure; I42.8 Other cardiomyopathies; Z86.19 Personal history of other infectious and parasitic diseases; I11.0 Hypertensive heart disease with heart failure; E11.42 Type 2 diabetes mellitus with diabetic polyneuropathy; Z79.4 Long term (current) use of insulin; A41.9 Sepsis, unspecified organism
CPT/HCPCS: 36415; 71045; 73130; 73200; 74177; 80048; 80053; 80202; 80305; 81001; 82803; 82962; 83605; 83735; 84100; 84443; 84484; 85025; 85651; 86328; 87040; 87077; 87086; 87186; 93005; 96365; 96367; 97116; 97162; 97530; 99284; J2543; J3370; Q9967

== ENCOUNTER → 2020-10-20 12:36 | Outpatient (CLI) | payer MEDICARE, SELFPAY ==
--- NOTE | 2020-10-20 13:57 | PC.NURSE ---
PFT Complete without complications. Albuterol 0.083% given hand held nebulizer per protocol. Pt tolerated well.
== END ==
PROVIDERS: PCP Family Medicine; Visit Provider Internal Medicine Pulmonary Disease
DX: R06.00 Dyspnea, unspecified (principal)
CPT/HCPCS: 94060; 94618; 94726; 94729

== ENCOUNTER → 2020-10-30 13:59 | Outpatient (CLI) | payer MEDICARE, SELFPAY ==
[2020-10-30 14:10] LABS: Microscopic, Urine URINE MICROSCOPIC (MICROSCOPIC)
[2020-10-30 16:05] LABS: Appearance,Urine SL CLOUDY (Clear); Bilirubin,Urine Negative (Negative); Blood, Urine Negative (Negative); Color,Urine YELLOW (Yellow); Glucose,Urine (UA) Negative (Negative); Ketones,Urine Negative (Negative); Leukocyte Esterase,Urine 2+ (Negative); Nitrate,Urine POSITIVE (Negative); PH,Urine 6.5 (5.0-8.5); Protein,Urine Negative (Negative); Urobilinogen,Urine 0.2 EU/dl (0.2)
[2020-10-30 16:14] LABS: Creatinine,Urine Random 29 mg/dL (Not Estab.)
[2020-10-30 16:15] LABS: Bacteria,Urine 2+ /lpf
[2020-10-30 17:06] LABS: Albumin Level 4.5 g/dl (3.5-5.0); Anion Gap 18.3 mEq/L (5-15); Blood Urea Nitrogen 57 mg/dl (7-17); Calcium 10.1 mg/dl (8.4-10.2); Carbon Dioxide 30 mmol/L (22.0-30.0); Chloride 93 mmol/L (98-107); Estimated Glomerular Filt Rate 28 ml/min (>60); GFR (African American) 34 ML/MIN (>60); Glucose 143 mg/dl (74-100); Phosphorous 4.3 mg/dl (2.5-4.5); Potassium 4.3 mmoL/L (3.5-5.1); Sodium 137 mmol/L (136-145)
[2020-10-30 17:24] LABS: Free T4 (Free Thyroxine) 1.26 ng/dl (0.78-2.19)
[2020-10-30 17:33] LABS: Uric Acid 17.9 mg/dl (2.5-6.2)
[2020-10-30 17:37] LABS: Thyroid Stimulating Hormone 0.05 uIU/mL (0.465-4.68)
[2020-10-30 18:34] LABS: 25-OH Vitamin D, Total 36.6 ng/mL (30-100)
== END ==
PROVIDERS: Internal Medicine Nephrology; Visit Provider Nurse Practitioner Family
DX: N17.9 Acute kidney failure, unspecified (principal); N18.2 Chronic kidney disease, stage 2 (mild); I11.0 Hypertensive heart disease with heart failure; E11.65 Type 2 diabetes mellitus with hyperglycemia; N39.0 Urinary tract infection, site not specified; Z79.4 Long term (current) use of insulin
CPT/HCPCS: 36415; 80069; 80162; 81001; 82306; 82570; 83036; 84155; 84439; 84443; 84550; 87086; 87088; 87186

== ENCOUNTER 2020-11-12 14:54 | Emergency (ER) | payer MEDICARE, SELFPAY ==
[2020-11-12] VITALS (8 sets, daily range): BP systolic 98–115; BP diastolic 46–61; PULSE 69–99; RESP 16–24; TEMP 36.6–37.2; O2SAT 95–99; BMI 39.1
--- NOTE | 2020-11-12 15:08 | ECG_ITS ---
APPROVED REPORT Exam: Resting ECG HR:77 bpm ECG Measurements Heart Rate 77 AXES QRSd 74 QRS 91 QT 348 T 260 QTc 393 Conclusion Atrial fibrillation/flutter Rightward axis Late R-wave progression ST & T wave abnormality, consider inferolateral ischemia or digitalis effect Abnormal ECG Electronically signed by : Rad Branch, 11/14/2020 17:31:06
--- NOTE | 2020-11-12 15:11 | XR_ITS ---
PROCEDURE: XR CHEST PORTABLE CLINICAL HISTORY: sob shortness of breath, heart disease COMPARISON: CT CTAC CTA-CHEST from 01/24/2016 CR XR CHEST PORTABLE from 09/04/2020 CR XR CHEST PORTABLE from 09/06/2020 CR XR CHEST PORTABLE from 09/11/2020 FINDINGS: There is a bipolar pacemaker present from left subclavian approach. The lungs are clear without infiltrates, suspicious nodules, or pleural effusions. No acute bony abnormalities. IMPRESSION: No acute findings. Dictated by: Momo Jorgensen MD 11/12/2020 15:54 Momo Jorgensen MD in [place] 11/12/2020 15:54
--- NOTE | 2020-11-12 15:15 | HMH.EDSOB ---
ED Disposition Clinical Impression: Congestive heart failure Qualifiers: Heart failure type: systolic Heart failure chronicity: acute on chronic Qualified Code(s): I50.23 - Acute on chronic systolic (congestive) heart failure Disposition: Home, Self-Care Condition on Discharge: Good Additional Instructions: increase turosemide to BID x 3 days and f/u w/ PCP for re-eval at the first of the week Referrals: Rad Galvan MD [Primary Care Provider] - - Critical Care Critical Care Time: No Attestation: On 11/12/20, the high probability of a clinically significant, sudden or life threatening deterioration of the following system(s) required my full and direct attention, intervention and personal management. The time I documented below is in addition to time spent performing reported procedures but includes the following listed in this critical care notation. Medical Decision Making - Medical Records Medical records reviewed: Yes: I reviewed the patient's medical records. - Neil Inquiry Pt receiving controlled substance: No Vital Signs: 11/12/20 14:56 11/12/20 15:26 11/12/20 15:56 Temperature 99 F Temperature Source Oral Pulse Rate [Radial] 99 H 72 74 Respiratory Rate 24 Blood Pressure [Right Arm] 115/61 98/46 L 109/50 L Blood Pressure Mean [Right Arm] 79 63 69 Blood Pressure Source [Right Arm] Blood Pressure Position [Right Arm] Sitting 02 Sat by Pulse Oximetry 98 98 98 Oxygen Delivery Method Room Air 11/12/20 16:26 11/12/20 16:56 11/12/20 18:00 Temperature Temperature Source Pulse Rate [Radial] 74 72 71 Respiratory Rate 16 Blood Pressure [Right Arm] 102/59 L 98/50 L 108/50 L Blood Pressure Mean [Right Arm] 73 66 69 Blood Pressure Source [Right Arm] Blood Pressure Position [Right Arm] 02 Sat by Pulse Oximetry 96 96 99 Oxygen Delivery Method 11/12/20 18:37 Temperature Temperature Source Pulse Rate [Radial] 69 Respiratory Rate 18 Blood Pressure [Right Arm] 106/47 L Blood Pressure Mean [Right Arm] 66 Blood Pressure Source [Right Arm] Automatic Cuff Blood Pressure Position [Right Arm] 02 Sat by Pulse Oximetry 95 Oxygen Delivery Method - Lab Data Lab Results 11/12/20 15:14: VBG pH 7.42 H, VBG pCO2 44.1, VBG pO2 30.1, VBG HCO3 27.9, VBG Total CO2 29.3 H, VBG O2 Saturation 58.6, VBG Base Excess 3.4 H 11/12/20 15:54: WBC 6.8, RBC 3.49 L, Hgb 11.8 L, Hct 34.9 L, MCV 100.0 H, MCH 33.8 H, MCHC 33.8, RDW 15.9, Plt Count 191, MPV 8.0, Neut % (Auto) 69.3, Lymph % (Auto) 21.8, [place] % (Auto) 6.2, Eos % (Auto) 2.2, Baso % (Auto) 0.4, Neut # (Auto) 4.7, Lymph # (Auto) 1.5, [place] # (Auto) 0.4, Eos # (Auto) 0.2, Baso # (Auto) 0.0 11/12/20 15:54: Sodium 139, Potassium 4.5, Chloride 98, Carbon Dioxide 34 H, Anion Gap 11.5, BUN 40 H, Creatinine 1.60 H, Estimated Creat Clear 55, Estimated GFR 33 L, Est GFR ( Amer) 39 L, Glucose 152 H, Calcium 9.5, Troponin I < 0.01 11/12/20 15:54: NT-Pro-B Natriuret Pep 228 H 11/12/20 15:54: Digoxin 0.90 11/12/20 18:00: Troponin I < 0.01 Result diagrams: 11/12/20 15:54 11/12/20 15:54 Orders (Tests/Meds): ED MEDICATIONS Discontinued Medications Generic Name Dose Route Start Last Admin Trade Name Roman PRN Reason Stop Dose Admin Hydrocodone Bitart/Acetaminophen 1 tab 11/12/20 17:58 11/12/20 18:01 Hydrocodone/Apap 5/325 Mg Tablet PO 11/12/20 17:59 1 tab ONCE ONE Administration Bumetanide 2 mg 11/12/20 16:39 11/12/20 16:46 Bumetanide 1mg/4ml Vial IV 11/12/20 16:40 1 mg ONCE ONE Administration ORDERS Category Date Time Status Troponin I Q3H Lab 11/12/20 21:15 Ordered - Radiology Data #1 Image(s): Chest Image Reviewed: Yes I reviewed the patient's radiology results, Yes I have reviewed radiologist's interpretation Preliminary Findings: Normal/NAD - ECG Data Tracing #1 ECG initial impression date: 11/12/20 ECG initial impression time: 15:08 Normal Sinus Rhythm: No Arrhythmias pre
--- NOTE | 2020-11-12 15:27 | PC.NURSE ---
[address] an IV at this time. JANET Shafer to attempt
[2020-11-12 15:51] LABS: Basophils % 0.4 % (0.1-2.0); Eosinophils # 0.2 K/mm3 (0.0-0.4); Eosinophils % 2.2 % (0.1-12.0); Hematocrit 34.9 % (37.0-47.0); Hemoglobin 11.8 g/dL (12.2-16.2); Lymphocytes # 1.5 K/mm3 (0.7-4.5); Lymphocytes % 21.8 % (10-50); Mean Corpuscular HGB Conc 33.8 g/dL (31.8-35.4); Mean Corpuscular Hemoglobin 33.8 pg (27.0-31.2); Monocytes # 0.4 K/mm3 (0.1-1.0); Monocytes % 6.2 % (1.7-9.3); Neutrophils # 4.7 K/mm3 (1.8-7.8); Neutrophils % 69.3 % (37.0-80.0); Platelet Count 191 K/mm3 (142-424); Red Blood Count 3.49 M/mm3 (4.20-5.40); Red Cell Distribution Width 15.9 % (11.5-17.5); White Blood Count 6.8 K/mm3 (4.8-10.8)
[2020-11-12 15:53] LABS: Chloride 98 mmol/L (98-107); Potassium 4.5 mmoL/L (3.5-5.1); Sodium 139 mmol/L (136-145)
[2020-11-12 15:54] LABS: VBG Base Excess 3.4 mmol/L (-2.4-2.3); VBG HCO3 27.9 mmol/L (23-30); VBG Oxygen Saturation 58.6 % (50-70); VBG PCO2 44.1 mmol/L (35-51); VBG PH 7.42 mmol/L (7.31-7.41); VBG PO2 30.1 mmol/L (28-40); VBG Total CO2 29.3 mmol/L (23-27)
[2020-11-12 15:56] LABS: Blood Urea Nitrogen 40 mg/dl (7-17); Creatinine Clearance Estimated 55 mL/min (50-200); Estimated Glomerular Filt Rate 33 ml/min (>60); GFR (African American) 39 ML/MIN (>60)
[2020-11-12 15:57] LABS: Anion Gap 11.5 mEq/L (5-15); Calcium 9.5 mg/dl (8.4-10.2); Carbon Dioxide 34 mmol/L (22.0-30.0); Glucose 152 mg/dl (74-100)
[2020-11-12 16:07] LABS: NT Pro Brain Natriuretic Pep. 228 pg/mL (0-125)
[2020-11-12 16:12] LABS: Troponin I < 0.01 ng/ml (0.00-0.034)
--- NOTE | 2020-11-12 16:46 | PC.NURSE ---
V/O TO ONLY GIVE 1MG BUMEX IVP DUE TO B/P OF 104/50
[2020-11-12 18:39] LABS: Troponin I < 0.01 ng/ml (0.00-0.034)
--- NOTE | 2020-11-12 18:51 | PC.NURSE ---
Report given to Ang RN
== END 2020-11-12 19:07 | disposition home or self-care (01) ==
PROVIDERS: Emergency Provider Emergency Medicine; PCP Family Medicine
DX: I50.23 Acute on chronic systolic (congestive) heart failure (principal); I48.91 Unspecified atrial fibrillation; I25.10 Atherosclerotic heart disease of native coronary artery without angina pectoris; E11.9 Type 2 diabetes mellitus without complications; K21.9 Gastro-esophageal reflux disease without esophagitis; E78.5 Hyperlipidemia, unspecified; I10 Essential (primary) hypertension; Z95.0 Presence of cardiac pacemaker; Z79.899 Other long term (current) drug therapy
CPT/HCPCS: 71045; 80048; 80162; 82803; 83880; 84484; 85025; 93005; 96374; 99284

== ENCOUNTER → 2020-12-05 13:17 | Outpatient (CLI) | payer MEDICARE, SELFPAY ==
--- NOTE | 2020-12-05 13:23 | XR_ITS ---
PROCEDURE: XR SHOULDER RT MIN 2V CLINICAL INDICATION: right shoulder pain COMPARISON: CR SHOU3L [id number] VIEWS from 01/19/2015 FINDINGS: Mild osteoarthritic changes are present at the acromioclavicular joint. No significant subacromial stenosis. Minimal osteoarthritic changes are present at the glenohumeral joint. Other findings:None. IMPRESSION: Minimal osteoarthritic changes Dictated by: Momo Jorgensen MD 12/05/2020 18:36 Momo Jorgensen MD in [facility] 12/05/2020 18:36
== END ==
PROVIDERS: PCP Family Medicine; Visit Provider Orthopaedic Surgery
DX: M25.511 Pain in right shoulder (principal)
CPT/HCPCS: 73030

== ENCOUNTER → 2020-12-05 16:31 | Outpatient (CLI) | payer MEDICARE, SELFPAY ==
[2020-12-05 18:06] LABS: Basophils # 0.1 K/mm3 (0-0.2); Basophils % 0.5 % (0.1-2.0); Eosinophils # 0.4 K/mm3 (0.0-0.4); Eosinophils % 3.5 % (0.1-12.0); Hematocrit 40.5 % (37.0-47.0); Hemoglobin 13.2 g/dL (12.2-16.2); Lymphocytes % 19.3 % (10-50); Mean Corpuscular HGB Conc 32.5 g/dL (31.8-35.4); Mean Corpuscular Hemoglobin 33.6 pg (27.0-31.2); Mean Corpuscular Volume 103.3 fl (81-99); Mean Platelet Volume 8.6 fl (7.4-10.4); Monocytes # 0.6 K/mm3 (0.1-1.0); Monocytes % 5.5 % (1.7-9.3); Neutrophils # 7.5 K/mm3 (1.8-7.8); Neutrophils % 71.1 % (37.0-80.0); Platelet Count 331 K/mm3 (142-424); Red Blood Count 3.92 M/mm3 (4.20-5.40); Red Cell Distribution Width 16.2 % (11.5-17.5); White Blood Count 10.6 K/mm3 (4.8-10.8)
[2020-12-05 18:25] LABS: Uric Acid 14.4 mg/dl (2.5-6.2)
[2020-12-05 18:28] LABS: Anion Gap 14.4 mEq/L (5-15); Blood Urea Nitrogen 50 mg/dl (7-17); Calcium 10.4 mg/dl (8.4-10.2); Carbon Dioxide 33 mmol/L (22.0-30.0); Chloride 93 mmol/L (98-107); Estimated Glomerular Filt Rate 33 ml/min (>60); GFR (African American) 39 ML/MIN (>60); Glucose 175 mg/dl (74-100); Potassium 4.4 mmoL/L (3.5-5.1); Sodium 136 mmol/L (136-145)
[2020-12-05 18:30] LABS: C-Reactive Protein 46.4 mg/L (0-4)
[2020-12-05 18:34] LABS: NT Pro Brain Natriuretic Pep. 145 pg/mL (0-125)
[2020-12-05 18:54] LABS: Erythrocyte Sedimentation Rate > 140 mm/hr (0-30)
[2020-12-06 15:03] LABS: Albumin Level 4.1 g/dl (3.5-5.0); Phosphorous 3.8 mg/dl (2.5-4.5); Uric Acid 14.4 mg/dl (2.5-6.2)
[2020-12-06 15:16] LABS: Hemoglobin A1C 7.9 % (4.0-6.0)
[2020-12-06 15:21] LABS: 25-OH Vitamin D, Total 26.9 ng/mL (30-100)
[2020-12-06 15:34] LABS: Thyroid Stimulating Hormone 0.06 uIU/mL (0.465-4.68)
== END ==
LOC: LAB 16:32
PROVIDERS: Internal Medicine Nephrology; Physician Assistant; Visit Provider Orthopaedic Surgery
DX: E78.5 Hyperlipidemia, unspecified (principal); I25.10 Atherosclerotic heart disease of native coronary artery without angina pectoris; I42.8 Other cardiomyopathies; I48.91 Unspecified atrial fibrillation; I50.9 Heart failure, unspecified; R06.02 Shortness of breath; M79.89 Other specified soft tissue disorders; E55.9 Vitamin D deficiency, unspecified; Z79.4 Long term (current) use of insulin; I11.0 Hypertensive heart disease with heart failure; M25.511 Pain in right shoulder
CPT/HCPCS: 73030; 80048; 82040; 82306; 83036; 83880; 84100; 84443; 84550; 85025; 85651; 86140

== ENCOUNTER → 2020-12-15 10:49 | Outpatient (CLI) | payer MEDICARE, SELFPAY ==
--- NOTE | 2020-12-15 10:50 | CT_ITS ---
PROCEDURE: CT HAND RT WO CON CLINICAL HISTORY: right hand swelling pain in 3rd and 4th digit COMPARISON: CR XR HAND RT MIN 3V from 09/15/[address] HAND RT WO CON from 09/16/2020 TECHNIQUE: Axial images obtained with sagittal and coronal reformats. All CT scans at the facility use one or more dose reduction, viz: automated exposure control, ma/kV adjustment per patient size (including targeted exams where dose is matched to indication, i.e. head), or iterative reconstruction technique. FINDINGS: There are no radiographs available for comparison. There is decrease in the joint space at the 3rd metacarpophalangeal joint. Soft tissue swelling is present at the 3rd metacarpophalangeal joint. Lack of IV contrast limits evaluation for joint effusion or abscess. Cortical irregularity involves the distal aspect of the 3rd metacarpal along the ulnar and dorsal aspect as well as the proximal aspect of the proximal phalanx of the 3rd digit also along the ulnar and dorsal aspect. These findings could be related to erosive osteoarthritic change or septic arthritis. Please correlate with clinical parameters. Minimal subchondral cystic changes are present at the head of the 4th metacarpal with osteoarthritic changes at that joint. Soft tissue swelling is also present at that region but not as prominent as at the 3rd metacarpophalangeal joint. No foreign bodies. No soft tissue gas evident. No fracture or dislocation IMPRESSION: There is decrease in the joint space with soft tissue swelling and juxta-articular erosive changes at the distal aspect of the 3rd metacarpal and proximal aspect of the proximal phalanx along the dorsal and ulnar aspect. Erosive arthritis with soft tissue swelling or septic joint is considered. Please correlate with clinical parameters. There is also involvement of the metacarpophalangeal joint of the 4th digit but to a lesser degree. Dictated by: Momo Jorgensen MD 12/20/2020 10:30 Momo Jorgensen MD in [facility] 12/20/2020 10:30
== END ==
LOC: RAD 10:50
PROVIDERS: PCP Family Medicine; Visit Provider Orthopaedic Surgery
DX: M25.441 Effusion, right hand (principal)
CPT/HCPCS: 73200

== ENCOUNTER → 2020-12-28 16:17 | Outpatient (CLI) | payer MEDICARE, SELFPAY ==
--- NOTE | 2020-12-28 16:41 | XR_ITS ---
PROCEDURE: XR HAND RT MIN 3V CLINICAL INDICATION: right hand pain COMPARISON: CR XR HAND RT MIN 3V from 09/15/2020 FINDINGS: No fracture or dislocation. No lytic or blastic change. There is normal mineralization. The joint spaces are well-preserved. No significant degenerative/arthritic changes. No erosive changes evident. Other findings:None. IMPRESSION: No acute findings. Dictated by: Momo Jorgensen MD 12/28/2020 17:17 Momo Jorgensen MD in [facility] 12/28/2020 17:17
[2020-12-28 16:58] LABS: Basophils # 0.1 K/mm3 (0-0.2); Basophils % 0.6 % (0.1-2.0); Eosinophils # 0.2 K/mm3 (0.0-0.4); Eosinophils % 2.5 % (0.1-12.0); Hemoglobin 13.5 g/dL (12.2-16.2); Lymphocytes # 1.8 K/mm3 (0.7-4.5); Mean Corpuscular HGB Conc 32.2 g/dL (31.8-35.4); Mean Corpuscular Hemoglobin 32.7 pg (27.0-31.2); Mean Corpuscular Volume 101.7 fl (81-99); Monocytes # 0.5 K/mm3 (0.1-1.0); Monocytes % 6.1 % (1.7-9.3); Neutrophils # 5.5 K/mm3 (1.8-7.8); Neutrophils % 68.9 % (37.0-80.0); Platelet Count 209 K/mm3 (142-424); Red Blood Count 4.13 M/mm3 (4.20-5.40); Red Cell Distribution Width 15.9 % (11.5-17.5)
[2020-12-28 17:17] LABS: Alanine Aminotransferase 53 U/L (12-78); Albumin Level 4.5 g/dl (3.5-5.0); Albumin/Globulin Ratio 1.3 (1.1-1.8); Alkaline Phosphatase 213 U/L (38-126); Anion Gap 14.1 mEq/L (5-15); Aspartate Amino Transferase 51 U/L (14-36); Bilirubin,Total 0.6 mg/dl (0.2-1.3); Blood Urea Nitrogen 36 mg/dl (7-17); Carbon Dioxide 32 mmol/L (22.0-30.0); Chloride 94 mmol/L (98-107); Estimated Glomerular Filt Rate 41 ml/min (>60); GFR (African American) 50 ML/MIN (>60); Globulin 3.5 g/dL (1.3-3.2); Glucose 258 mg/dl (74-100); Potassium 4.1 mmoL/L (3.5-5.1); Sodium 136 mmol/L (136-145); Uric Acid 9.4 mg/dl (2.5-6.2)
[2020-12-28 17:23] LABS: C-Reactive Protein 16.5 mg/L (0-4)
[2020-12-28 17:26] LABS: Erythrocyte Sedimentation Rate 34 mm/hr (0-30)
== END ==
LOC: LAB 16:23
PROVIDERS: PCP Family Medicine; Visit Provider Orthopaedic Surgery
DX: M10.9 Gout, unspecified (principal); M25.441 Effusion, right hand
CPT/HCPCS: 36415; 73130; 80053; 84550; 85025; 85651; 86140

== ENCOUNTER → 2021-01-29 14:10 | Outpatient (CLI) | payer MEDICARE, SELFPAY ==
[2021-01-29 15:31] LABS: Chloride 98 mmol/L (98-107); Sodium 138 mmol/L (136-145)
[2021-01-29 15:32] LABS: Potassium 4.1 mmoL/L (3.5-5.1)
[2021-01-29 15:34] LABS: Blood Urea Nitrogen 35 mg/dl (7-17); Estimated Glomerular Filt Rate 41 ml/min (>60); GFR (African American) 50 ML/MIN (>60)
[2021-01-29 15:35] LABS: Anion Gap 13.1 mEq/L (5-15); Calcium 9.8 mg/dl (8.4-10.2); Carbon Dioxide 31 mmol/L (22.0-30.0); Glucose 133 mg/dl (74-100)
== END ==
PROVIDERS: Visit Provider Nurse Practitioner Family
DX: E11.42 Type 2 diabetes mellitus with diabetic polyneuropathy (principal); I50.9 Heart failure, unspecified; R60.0 Localized edema
CPT/HCPCS: 36415; 80048

== ENCOUNTER → 2021-02-01 13:34 | Outpatient (CLI) | payer MEDICARE, SELFPAY ==
[2021-02-01 15:02] LABS: Carbon Dioxide 29 mmol/L (22.0-30.0); Chloride 90 mmol/L (98-107); Sodium 134 mmol/L (136-145)
[2021-02-01 15:47] LABS: Anion Gap 19.3 mEq/L (5-15); Potassium 4.3 mmoL/L (3.5-5.1)
[2021-02-01 15:49] LABS: Blood Urea Nitrogen 74 mg/dl (7-17); Estimated Glomerular Filt Rate 27 ml/min (>60); GFR (African American) 32 ML/MIN (>60)
[2021-02-01 15:50] LABS: Calcium 10.2 mg/dl (8.4-10.2); Glucose 174 mg/dl (74-100)
== END ==
PROVIDERS: Internal Medicine Cardiovascular Disease; Visit Provider Nurse Practitioner Family
DX: I50.9 Heart failure, unspecified (principal); R60.0 Localized edema
CPT/HCPCS: 36415; 80048

== ENCOUNTER → 2021-02-07 13:01 | Outpatient (CLI) | payer MEDICARE, SELFPAY ==
--- NOTE | 2021-02-07 13:24 | XR_ITS ---
PROCEDURE: XR HAND RT MIN 3V CLINICAL INDICATION: right hand pain COMPARISON: CR XR HAND RT MIN 3V from 09/15/2020 CR XR HAND RT MIN 3V from 12/28/2020 FINDINGS: No fracture or dislocation. No lytic or blastic change. There is normal mineralization. There are mild osteoarthritic changes with minimal osteophyte formation at the distal aspect of the 2nd 3rd and 4th metacarpals. Other findings:None. IMPRESSION: No acute findings. Dictated by: Momo Jorgensen MD 02/07/2021 15:48 Momo Jorgensen MD in [place] 02/07/2021 15:49
[2021-02-07 13:39] LABS: Basophils % 0.4 % (0.1-2.0); Eosinophils # 0.2 K/mm3 (0.0-0.4); Eosinophils % 2.5 % (0.1-12.0); Hemoglobin 13.3 g/dL (12.2-16.2); Lymphocytes # 1.7 K/mm3 (0.7-4.5); Lymphocytes % 20.3 % (10-50); Mean Corpuscular HGB Conc 34.2 g/dL (31.8-35.4); Mean Corpuscular Hemoglobin 34.1 pg (27.0-31.2); Mean Corpuscular Volume 99.6 fl (81-99); Mean Platelet Volume 8.3 fl (7.4-10.4); Monocytes # 0.4 K/mm3 (0.1-1.0); Monocytes % 4.8 % (1.7-9.3); Neutrophils # 6.1 K/mm3 (1.8-7.8); Neutrophils % 72.1 % (37.0-80.0); Platelet Count 240 K/mm3 (142-424); Red Blood Count 3.91 M/mm3 (4.20-5.40); Red Cell Distribution Width 16.2 % (11.5-17.5); White Blood Count 8.5 K/mm3 (4.8-10.8)
[2021-02-07 14:19] LABS: Erythrocyte Sedimentation Rate 47 mm/hr (0-30)
[2021-02-07 14:30] LABS: Anion Gap 19.4 mEq/L (5-15); Calcium 9.7 mg/dl (8.4-10.2); Carbon Dioxide 29 mmol/L (22.0-30.0); Chloride 84 mmol/L (98-107); Estimated Glomerular Filt Rate 18 ml/min (>60); GFR (African American) 22 ML/MIN (>60); Glucose 186 mg/dl (74-100); Potassium 4.4 mmoL/L (3.5-5.1); Sodium 128 mmol/L (136-145)
[2021-02-07 14:36] LABS: C-Reactive Protein 37.9 mg/L (0-4)
[2021-02-07 14:58] LABS: Blood Urea Nitrogen 120 mg/dl (7-17)
== END ==
PROVIDERS: Internal Medicine Cardiovascular Disease; PCP Family Medicine; Visit Provider Orthopaedic Surgery
DX: I50.9 Heart failure, unspecified (principal); M10.9 Gout, unspecified; M25.441 Effusion, right hand
CPT/HCPCS: 36415; 73130; 80048; 84550; 85025; 85651; 86140

== ENCOUNTER → 2021-02-12 12:49 | Outpatient (CLI) | payer MEDICARE, SELFPAY ==
[2021-02-12 13:51] LABS: Basophils % 0.3 % (0.1-2.0); Eosinophils # 0.2 K/mm3 (0.0-0.4); Eosinophils % 2.4 % (0.1-12.0); Hematocrit 38.9 % (37.0-47.0); Hemoglobin 13.5 g/dL (12.2-16.2); Lymphocytes # 1.7 K/mm3 (0.7-4.5); Lymphocytes % 20.6 % (10-50); Mean Corpuscular HGB Conc 34.7 g/dL (31.8-35.4); Mean Corpuscular Hemoglobin 34.8 pg (27.0-31.2); Mean Corpuscular Volume 100.4 fl (81-99); Mean Platelet Volume 7.9 fl (7.4-10.4); Monocytes # 0.4 K/mm3 (0.1-1.0); Monocytes % 4.6 % (1.7-9.3); Neutrophils % 72.1 % (37.0-80.0); Platelet Count 246 K/mm3 (142-424); Red Blood Count 3.87 M/mm3 (4.20-5.40); White Blood Count 8.3 K/mm3 (4.8-10.8)
[2021-02-12 13:54] LABS: Chloride 84 mmol/L (98-107); Potassium 4.8 mmoL/L (3.5-5.1); Sodium 130 mmol/L (136-145)
[2021-02-12 13:57] LABS: Anion Gap 18.8 mEq/L (5-15); Calcium 9.9 mg/dl (8.4-10.2); Carbon Dioxide 32 mmol/L (22.0-30.0); Glucose 281 mg/dl (74-100)
[2021-02-12 14:16] LABS: Free T4 (Free Thyroxine) 1.49 ng/dl (0.78-2.19)
[2021-02-12 14:30] LABS: Thyroid Stimulating Hormone 0.07 uIU/mL (0.465-4.68)
[2021-02-12 15:43] LABS: Estimated Glomerular Filt Rate 17 ml/min (>60); GFR (African American) 21 ML/MIN (>60)
[2021-02-12 15:44] LABS: Blood Urea Nitrogen 119 mg/dl (7-17)
== END ==
PROVIDERS: Physician Assistant; Visit Provider Nurse Practitioner Family
DX: E11.9 Type 2 diabetes mellitus without complications (principal); G47.33 Obstructive sleep apnea (adult) (pediatric); H53.123 Transient visual loss, bilateral; I25.10 Atherosclerotic heart disease of native coronary artery without angina pectoris; I42.8 Other cardiomyopathies; I48.91 Unspecified atrial fibrillation; I50.20 Unspecified systolic (congestive) heart failure; I50.30 Unspecified diastolic (congestive) heart failure; R06.00 Dyspnea, unspecified; R07.89 Other chest pain; R60.0 Localized edema; Z79.4 Long term (current) use of insulin; I11.0 Hypertensive heart disease with heart failure
CPT/HCPCS: 36415; 80048; 84439; 84443; 85025

== ENCOUNTER 2021-02-14 09:16 | Outpatient (CLI) | payer MEDICARE, SELFPAY ==
[2021-02-14 09:30] VITALS: BP 144/82; PULSE 76; RESP 18; TEMP 36.1; O2SAT 97
[2021-02-14 10:30] VITALS: BMI 38.9
--- NOTE | 2021-02-14 10:35 | PC.NURSE ---
1035-collected bmp and sent to lab
[2021-02-14 10:38] VITALS: BP 140/81; PULSE 72; RESP 18
[2021-02-14 10:52] LABS: Chloride 92 mmol/L (98-107); Potassium 3.8 mmoL/L (3.5-5.1); Sodium 132 mmol/L (136-145)
[2021-02-14 10:55] LABS: Anion Gap 15.8 mEq/L (5-15); Carbon Dioxide 28 mmol/L (22.0-30.0); Creatinine Clearance Estimated 25 mL/min (50-200); Estimated Glomerular Filt Rate 14 ml/min (>60); GFR (African American) 17 ML/MIN (>60)
[2021-02-14 10:56] LABS: Glucose 141 mg/dl (74-100)
[2021-02-14 11:04] LABS: Blood Urea Nitrogen 118 mg/dl (7-17)
== END 2021-02-14 10:38 | disposition home or self-care (01) ==
LOC: INF 09:16
PROVIDERS: Visit Provider Internal Medicine
DX: N18.9 Chronic kidney disease, unspecified (principal); E86.0 Dehydration
CPT/HCPCS: 80048; 96360

== ENCOUNTER 2021-02-14 13:12 | Observation (INO) | payer MEDICARE, SELFPAY ==
[2021-02-14] VITALS (20 sets, daily range): BP systolic 82–140; BP diastolic 41–67; PULSE 70–77; RESP 12–18; TEMP 36.5–36.6; O2SAT 93–98; BMI 36.0
--- NOTE | 2021-02-14 13:21 | HMH.EDGENADL ---
ED Disposition Clinical Impression: Dehydration Acute renal failure Qualifiers: Acute renal failure type: unspecified Qualified Code(s): N17.9 - Acute kidney failure, unspecified Disposition: Admitted As Inpatient Condition on Discharge: Fair - Critical Care Critical Care Time: No Attestation: On , the high probability of a clinically significant, sudden or life threatening deterioration of the following system(s) required my full and direct attention, intervention and personal management. The time I documented below is in addition to time spent performing reported procedures but includes the following listed in this critical care notation. Medical Decision Making - Medical Records Medical records reviewed: Yes: I reviewed the patient's medical records. - Neil Inquiry Pt receiving controlled substance: No Vital Signs: 02/14/21 13:19 02/14/21 13:31 02/14/21 13:45 Temperature 98 F Temperature Source Oral Pulse Rate 70 70 Pulse Rate [Radial] 70 Respiratory Rate 18 16 13 Blood Pressure 83/41 L 95/48 L Blood Pressure [Right Arm] 89/41 L Blood Pressure Mean 48 Blood Pressure Mean [Right Arm] 57 Blood Pressure Position [Right Arm] Sitting 02 Sat by Pulse Oximetry 96 93 L 94 L Oxygen Delivery Method Room Air - Lab Data Lab Results 02/14/21 13:40: WBC 9.2, RBC 3.51 L, Hgb 12.1 L, Hct 34.7 L, MCV 99.0, MCH 34.6 H, MCHC 34.9, RDW 16.1, Plt Count 222, MPV 8.8, Neut % (Auto) 74.4, Lymph % (Auto) 18.3, [place] % (Auto) 4.6, Eos % (Auto) 2.4, Baso % (Auto) 0.3, Neut # (Auto) 6.8, Lymph # (Auto) 1.7, [place] # (Auto) 0.4, Eos # (Auto) 0.2, Baso # (Auto) 0.0 Result diagrams: 02/14/21 13:40 Orders (Tests/Meds): ED MEDICATIONS Generic Name Dose Route Start Last Admin Trade Name Freq PRN Reason Stop Dose Admin Acetaminophen 650 mg 02/14/21 13:54 Acetaminophen 325mg Tab PO 03/16/21 13:53 Q4HP PRN As Needed for Fever or Pain Sodium Chloride 1,000 mls @ 999 mls/hr 02/14/21 13:30 02/14/21 13:34 Sod Chlor 0.9% 1000ml Bag IV 02/14/21 14:30 999 mls/hr .Q1H1M GAIL Administration ORDERS Category Date Time Status DIG [Digoxin] Stat Lab 02/14/21 13:40 Received Full Resp Panel w/COVID ([facility]) Routine Lab 02/14/21 13:50 Received Magnesium Stat Lab 02/14/21 13:40 Received PHOS [Phosphorous] Stat Lab 02/14/21 13:40 Received Urinalysis and Microscopic Stat Lab 02/14/21 13:21 Ordered Medical Decision Narrative: Patient with lower in blood pressure here, likely secondary to some dehydration from diuretic use and congestive heart failure. Has already received 1 L fluids this morning, her lung sounds are clear and her oxygen saturations are 95% on room air, so we will begin infusing another liter here slowly and with multiple rechecks. Creatinine over 3 and not responsive to earlier 1 L of fluids, so will admit for further management. I discussed this case with Dr. Galvan. I have placed a hold on all of her blood pressure medication given her lower in blood pressure, except for her heart failure meds Farxiga and Digoxin. General Adult HPI - General Stated complaint: from cardiology department Time Seen by Provider: 02/14/21 13:21 Mode of Arrival: Ambulatory Source of Information: Patient, Medical Record Limitations: No Limitations - History of Present Illness HPI narrative: This 65-year-old female with a past medical history significant for hypertension, hyperlipidemia, diabetes mellitus, afib, congestive heart failure, pacemaker who presents to the emergency department for worsening renal failure. She was recently taken off of her diuretics a few days ago by her certified orthoptist secondary to rising creatinine. She received a liter of fluids today at cardiology request and still had a creatinine of over 3, up from 2.8. She denies any new chest pain, shortness of breath, abdominal pain. She is urinating without difficulty. No difficulty breathing when she is at r
--- NOTE | 2021-02-14 13:38 | PC.NURSE ---
Dr De La Cruz speaking with Mavis Herrera APRN
--- NOTE | 2021-02-14 13:43 | PC.NURSE ---
Calling Dr Galvan at this time.
--- NOTE | 2021-02-14 13:45 | PC.NURSE ---
Dr De La Cruz speaking with Dr Galvan
[2021-02-14 13:53] LABS: Basophils % 0.3 % (0.1-2.0); Eosinophils # 0.2 K/mm3 (0.0-0.4); Eosinophils % 2.4 % (0.1-12.0); Hematocrit 34.7 % (37.0-47.0); Hemoglobin 12.1 g/dL (12.2-16.2); Lymphocytes # 1.7 K/mm3 (0.7-4.5); Lymphocytes % 18.3 % (10-50); Mean Corpuscular HGB Conc 34.9 g/dL (31.8-35.4); Mean Corpuscular Hemoglobin 34.6 pg (27.0-31.2); Mean Platelet Volume 8.8 fl (7.4-10.4); Monocytes # 0.4 K/mm3 (0.1-1.0); Monocytes % 4.6 % (1.7-9.3); Neutrophils # 6.8 K/mm3 (1.8-7.8); Neutrophils % 74.4 % (37.0-80.0); Platelet Count 222 K/mm3 (142-424); Red Blood Count 3.51 M/mm3 (4.20-5.40); Red Cell Distribution Width 16.1 % (11.5-17.5); White Blood Count 9.2 K/mm3 (4.8-10.8)
[2021-02-14 13:56] LABS: Adenovirus,PCR Not Detected (NotDetected); Bordetella Pertussis Not Detected (NotDetected); Chlamydophila Pneumoniae, PCR Not Detected (NotDetected); Coronavirus 19, PCR Not Detected (NotDetected); Coronavirus 229E Not Detected (NotDetected); Coronavirus NL63 Not Detected (NotDetected); Coronavirus OC43 Not Detected (NotDetected); Coronovirus HKU1,PCR Not Detected (NotDetected); Human Metapneumovirus Not Detected (NotDetected); Influenza A, PCR Not Detected (NotDetected); Influenza AH1, 2009 Not Detected (NotDetected); Influenza AH1, PCR Not Detected (NotDetected); Influenza AH3,PCR Not Detected (NotDetected); Influenza B, PCR Not Detected (NotDetected); Mycoplasma Pneumoniae, PCR Not Detected (NotDetected); Parainfluenza 1, PCR Not Detected (NotDetected); Parainfluenza 2, PCR Not Detected (NotDetected); Parainfluenza 3, PCR Not Detected (NotDetected); Parainfluenza 4, PCR Not Detected (NotDetected); Respiratory Syncytial Virus Not Detected (NotDetected); Rhinovirus/Enterovirus Not Detected (NotDetected)
[2021-02-14 14:01] LABS: Magnesium 2.9 mg/dl (1.6-2.3); Phosphorous 5.2 mg/dl (2.5-4.5)
--- NOTE | 2021-02-14 14:01 | PC.NURSE ---
PT AND FAMILY UPDATED ON PLAN OF CARE
--- NOTE | 2021-02-14 14:02 | XR_ITS ---
PROCEDURE: XR CHEST PORTABLE CLINICAL HISTORY: ELEVATED KFT'S Chest pain COMPARISON: CT CTAC CTA-CHEST from 01/24/2016 CR XR CHEST PORTABLE from 09/06/2020 CR XR CHEST PORTABLE from 09/11/2020 CR XR CHEST PORTABLE from 11/12/2020 FINDINGS: Biventricular and right atrial pacemaker leads are present from left subclavian approach. Unremarkable heart size. No acute bony abnormalities. IMPRESSION: No acute findings. Dictated by: Momo Jorgensen MD 02/14/2021 14:42 Momo Jorgensen MD in [place] 02/14/2021 14:42
--- NOTE | 2021-02-14 14:26 | PC.NURSE ---
rad at bedside
--- NOTE | 2021-02-14 15:19 | CA_ITS ---
APPROVED REPORT EXAM: Comprehensive 2D, Doppler, and color-flow Echocardiogram Pastry Cook Helper: Swapna Nguyen RCS, RVS Ht: 5 ft 4 in Wt: 210lbs BSA: 2.00 HR: 46 bpm BP: 95/48 mmHg Rhythm: Pacemaker Indications: s/p pacer adjustment for bradycardia, SOA Echo Enhancing Agent Indication: Rule out thrombus Agent(s) / Amount(s) Used: Definity 2 cc Comments: Technically limited exam due to body habitus 2D Dimensions LVOT 1.89 cm (M/F) 1.5-2.5 LA Volume 85.60 mL LA Volume Index 42.80 mL/m2 (M/F) 16-34 M-Mode Dimensions RVDd 3.59 cm (0.9-2.6) LA Diam 4.52 cm (1.9-4.0) LVDd 6.01 cm (3.5-5.7) Ao Diam 2.99 cm (2.0-3.7) LVDs 4.43 cm (3.5-5.7) IVSd 0.94 cm (0.6-1.1) PWd 0.85 cm (0.6-1.1) EF (Teich) 44.60% FS 22.40% EDV (Teich) 160.70 mL TAPSE 1.46 (<1.7) ESV (Teich) 89.10 mL LV Diastology E Decel Time 207.00 (160-240 msec) E/A Ratio 4.40 MED E' 9.00 (< 7 cm/sec) MED A' 2.80 cm/s E'/MED E' Ratio 13.09 (>14) LAT E' 13.20 (<10 cm/sec) LAT A' 4.70 cm/s E/LAT E' Ratio 8.92 (>14) Aortic Valve AO Peak GR. 5.60 mmHg AO VTI 156.37 (18-25 cm) Mitral Valve MV A Velocity 27.00 (40-130 cm/s) E/A Ratio 4.40 MV Decel. Time 207.00 (160-240 ms) Pulmonary Valve PV Peak Velocity 98.00 (50-150 cm/s) Tricuspid Valve TR P. Velocity 256.00 cm/s RAP Estimate 15.00 mmHg RVSP 41.30 mmHg Left Ventricle Technically difficult study because of the patient factors and poor acoustic windows, Definity contrast was utilized to delineate the endocardial surfaces, visually estimated ejection fraction 40 to 45%, there is abnormal septal motion, there is no left ventricular thrombus seen. Right Ventricle Right atrium and right ventricle moderately enlarged, pacemaker leads in right ventricle, right ventricle contractility is mildly reduced. Aortic Valve Aortic valve is minimally thickened and fibrosed, there is no aortic stenosis or aortic insufficiency. Mitral Valve Mitral valve leaflets are minimally thickened, there is mild mitral regurgitation. Tricuspid Valve Tricuspid valve is grossly normal, there is mild tricuspid regurgitation, calculated right ventricular systolic pressure is 41 mmHg. Pulmonic Valve Pulmonic valve is poorly visualized. Great Vessels Aortic root is normal size. Pericardium No significant pericardial effusion noted. Conclusion 1. Technically difficult study, Definity contrast was utilized to delineate the endocardial surfaces. 2. Biatrial enlargement, normal left ventricular size, mild concentric left ventricular hypertrophy, there is abnormal septal motion, visually estimated ejection fraction 40 to 45%, there is no left ventricular thrombus seen, diastolic parameters are inconclusive. 3. Moderately enlarged right ventricle with mild reduced contractility. 4. Mild mitral and tricuspid regurgitation, calculated right ventricular systolic pressure is 41 mmHg. 5. No significant pericardial effusion noted. Electronically signed by : Roney Wyatt, 02/15/2021 16:16:50
--- NOTE | 2021-02-14 15:39 | PC.NURSE ---
echo lab at bedside
--- NOTE | 2021-02-14 15:44 | HMH.CNCARD ---
History of Present Illness Consult date: 02/14/21 Requesting physician: Rad Galvan Consult reason: shortness of breath Chief complaint: Shortness of breath and acute renal failure History of present illness: 65-year-old female presented to ED for acute renal failure. Patient had been seen by the cardiology office 2 days prior for a follow-up for coronary artery disease, hypertension, atrial fibrillation, hyperlipidemia and cardiomyopathy. When patient was seen in cardiology office she complained of feeling weak and fatigued and said that it was not getting any better. She complained of increased spells of shaking and that she could not hold anything. Lab work had been performed her creatinine was 2.70 and revealed patient was dehydrated. Patient did receive IV fluids this a.m. infusing clinic. Repeat creatinine was up to 3.4 after the fluids. Requested patient to be seen in the ED and be admitted for congestive heart failure and acute renal failure. Patient has history of coronary artery disease. His heart catheterization was in 2017 which was medical management. Patient complains of increased shortness of breath especially with exertion. Patient states even performing minimal exertion she becomes very short of breath. Patient does have 1+ pedal edema of the lower extremities. Patient states this is generally normal for her. Patient has history of atrial fibrillation which is chronic and rate controlled. Patient is on Xarelto and denies any kind of bleeding issues. Patient has history of diabetes and requires insulin. Patient does have [employer]?D implant which was downloaded while she was in the emergency room. PPM rep interrogated pacemaker and change settings to turn on dual site and LV pacing and increased lower rate 80 bpm. compliance monitor reveals paced rhythm with a heart rate of 70 bpm. Discussed plan of care with Dr. Armstrong. Pt will be set up for Right heart cathetherization in the am for Pulmonary Hypertension. Pt is to hold her Xarelto tonight and then she may resume the Xarelto after the procedure. Discussed with patient the risk and benefits of right heart catheterization. Patient verbalized understanding and is agreeable to procedure. PPM interrogation was performed. Obtain Echocardiogram to assess LV function and valve status. Pending on the results of the right heart catheterization and echocardiogram, medication and treatment therapies changes may be recommended. Thank you for allowing cardiology to participate in the care of this patient. [facility] History I have reviewed the patient's past medical history: Yes Medical History: Reports:: Arrhythmia, Atrial Fibrillation, Cardiomyopathy, Congestive Heart Failure, Coronary Artery Disease, Depression, Diabetes Mellitus Type 2, Gastroesophageal Reflux Disease(GERD), Hyperlipidemia, Hypertension, Internal Pacemaker, Palpitations, Seizures Denies:: Cancer, Diabetes Mellitus Type 1, MRSA *Have you ever received a pneumonia vaccine?: Yes *Have you received a flu vaccine this season?: Yes Other Medical History: Reports: Arthritis Laterality Cases: Bilateral: Tonsillectomy Other Surgeries: Yes: Appendectomy, Cardiac Catheterization, Cholecystectomy, Pacemaker, Other (Defibrillator, tonsillectomy.) Amputation: No Fractures: No - *Social History Smoking Status: Never smoker Tobacco Type: cigarettes # Packs/Day (cigarettes): 0 #Yrs smoked (if former smoker): 0 Alcohol Intake: never Alcohol Intake Frequency:: other Substance Use Type: denies use *Occupational Status:: disabled Housing: house Household Members: family *Travel in the last 8 weeks: Inside the [place] - Psychiatric History Pschychiatric History:: Reports:: Depression Family Hx:: Heart Attack, Hyperlipidemia Meds Home Medications Medication Instructions Recorded Confirmed Type Atorvastatin Calcium [Lipitor 10mg 10 mg PO DAILY 12/03/17 02/14/21 History Tab] Pantoprazole Sodium [Protonix 40m
--- NOTE | 2021-02-14 16:21 | PC.NURSE ---
REPORT CALLED TO CARLA GONZALES
--- NOTE | 2021-02-14 20:17 | PC.NURSE ---
rapid response was called at this time d/t pt being difficult to arouse and hypotensive. rizwana Huston RN spoke with dr joaquin and orders were followed
--- NOTE | 2021-02-14 20:57 | PC.NURSE ---
When assessing pt to aak about med req, pt was less responsive and required sternal rub, pt would arrouse and then drift back to sleep. Pt appeared hypoglycemic, although FS was 200's. BP manual 80/50 and 88/44 with machine. HR and 02 WNL. Pt was able to nurse special franco hands and speak and was oriented, just drowsy. Called ED and spoke with Dr. joaquin and he ordered a dose of narcan and JANET Gamble is now caring for pt from this point and has taken other orders for a bolus. See Mar. Seizure pads are in place.
--- NOTE | 2021-02-14 21:02 | PC.NURSE ---
Pt is poor historian with hx as well as medications. Med req done per list.
--- NOTE | 2021-02-14 21:15 | PC.NURSE ---
md aware of crackles and aware 700ml linfused of bolus, md states to stop bolus and d/c fluids
--- NOTE | 2021-02-14 22:13 | PC.NURSE ---
report given to ER nurse at this time regarding bp of 82/46, pt is arousable to verbal stimuli and overall states that she feels better, denies dizziness or blurred vision, crackles heard throughout both lower lobes, o2 sat of 94% and pt denies SOB, md states no new orders at this time just continues to monitor.
[2021-02-14 22:59] LABS: POC Glucose,Bedside 223 (70-110)
[2021-02-15] VITALS (24 sets, daily range): BP systolic 80–129; BP diastolic 38–62; PULSE 68–100; RESP 14–18; TEMP 36.6–37.2; O2SAT 91–99; BMI 35.4
--- NOTE | 2021-02-15 | IR_ITS ---
APPROVED REPORT Patient Location: Inpatient PROCEDURES Right internal jugular vein access Right heart catheterization INDICATION Acute renal failure, Systolic congestive heart failure, Pulmonary artery hypertension Informed consent was obtained prior to the procedure. COMPLICATIONS None Estimated Blood Loss: Less than 10 mls TECHNIQUE One percent lidocaine was used to anesthetize the right anterior aspect of the neck. A access nurse needle was used to identify the right internal jugular vein. Following this a larger cannulation needle was used to cannulate the right internal jugular vein and a wire was passed into the vein. Prior to the 7 Polish sheath being inserted the wire was confirmed under fluoroscopic guidance to be in the inferior vena cava. A 7 Polish sheath was introduced and a [place]-Po catheter was floated using hemodynamic waveforms in the pulmonary artery, right ventricle , and right atrium. Saturations were obtained in the pulmonary artery and the right atrium. At the end of the procedure the patient was transferred to the postop holding area in stable condition for sheath removal. ANGIOGRAPHIC RESULTS Right atrial pressure 3 mmHg Pulmonary artery pressure 35/18 Pulmonary occlusion pressure 11 mmHg Right atrial saturation 79% Pulmonary saturation 76% Ejection fraction 30% by echocardiogram IMPRESSION Patient is currently either euvolemic or intravascularly deplete based on her known ejection fraction and worsening creatinine PLAN 1. Recommend fluid challenge and hold diuretics Electronically signed by : Abhijit Armstrong, 02/15/2021 09:26:20
--- NOTE | 2021-02-15 00:10 | PC.NURSE ---
DR DE LA TORRE AWARE OF PERSISTENT HYPOTENSION AND LOW MAPS, STATES HE SPOKE TO DR LEE AND HE IS OK WITH PTS BP BEING IN 80S LONG SHE IS AROUSABLE.
--- NOTE | 2021-02-15 04:27 | PC.NURSE ---
pt has remained hypotensive throughout night with systolic bps mostly in the 80s, since initial episode at 2017 pt has remained easy to arouse to verbal stimuli and awakens alert and oriented, lungs are clear at this time with no crackles noted, heart regularl, pt has remained in afib on telemetry denies any chest pain or SOB at this time, pt denies any dizziness or blurred vision with hypotension, pt current bp is 93/43, pt in good spirits and joking with staff, pt was clipped in preparation for heart cath and has remained npo, iv currently patent and infusing ns at 75ml/hr, nonpitting bilateral lower extremity noted as well has bilateral hand edema, call light within reach at this time, no acute distress noted will continue to monitor at this time
[2021-02-15 06:42] LABS: POC Glucose,Bedside 183 (70-110)
--- NOTE | 2021-02-15 07:27 | HMH.HP ---
*Admission Date: 02/14/21 *Chief complaint: Worsening acute kidney injury *History of present illness: 65-year-old female with nonischemic cardiomyopathy, history of atrial fibrillation, congestive heart failure was admitted to the hospital yesterday after progressive worsening of renal function over the preceding 2 weeks. Patient had been symptomatic from her congestive heart failure and adjustments were being made to diuretics. Patient developed acute kidney injury that did not respond to IV fluid hydration. Cardiology service recommended admission for right heart catheterization. In the emergency department patient was hypotensive and was given IV fluids. She was continued on IV fluids overnight. This morning patient denies chest pain or dyspnea however her activity has been minimal moving only 3 feet between the bed and the bedside commode. She reports normal urinations over the last 2 weeks with no perceived decrease in urine volume. She denies blood in her urine or dysuria. [facility] History I have reviewed the patient's past medical history: Yes Medical History: Reports:: Arrhythmia, Atrial Fibrillation, Cardiomyopathy, Congestive Heart Failure, Coronary Artery Disease, Depression, Diabetes Mellitus Type 2, Gastroesophageal Reflux Disease(GERD), Hyperlipidemia, Hypertension, Internal Pacemaker, Palpitations, Seizures Denies:: Cancer, Diabetes Mellitus Type 1, MRSA *Have you ever received a pneumonia vaccine?: Yes *Have you received a flu vaccine this season?: Yes Other Medical History: Reports: Arthritis Laterality Cases: Bilateral: Tonsillectomy Other Surgeries: Yes: Appendectomy, Cardiac Catheterization, Cholecystectomy, Pacemaker, Other (Defibrillator, tonsillectomy.) Amputation: No Fractures: No - *Social History Smoking Status: Never smoker Tobacco Type: cigarettes # Packs/Day (cigarettes): 0 #Yrs smoked (if former smoker): 0 Alcohol Intake: never Alcohol Intake Frequency:: other Substance Use Type: denies use *Occupational Status:: disabled Housing: house Household Members: family *Travel in the last 8 weeks: Inside the [facility] - Psychiatric History Pschychiatric History:: Reports:: Depression Family Hx:: Heart Attack, Hyperlipidemia Review of Systems - Constitutional Denies anorexia, Denies body ache(s) - Eyes Denies blind spots, Denies blurry vision - ENT Denies abnormal hearing, Denies difficulty swallowing - *Cardiovascular Reports chest pain, Reports chest pain with activity, Reports shortness of breath with activity, Reports generalized swelling, Denies chest pain at rest - *Respiratory Reports shortness of breath with activity, Denies change in phlegm color, Denies chest congestion, Denies cough - *Gastrointestinal Denies abdominal pain - *Genitourinary Denies painful urination - *Musculoskeletal Reports joint pain - Integumentary/Breasts Denies hair loss - *Neurologic Reports weakness, Denies abnormal walking - Psychiatric Reports lack of enjoyment Meds Home Medications Medication Instructions Recorded Confirmed Type Atorvastatin Calcium [Lipitor 10mg 10 mg PO DAILY 12/03/17 02/14/21 History Tab] Pantoprazole Sodium [Protonix 40mg 40 mg PO BID 12/03/17 02/14/21 History tablet] Tramadol HCl [Ultram 50mg 50 mg PO BID PRN 12/03/17 02/14/21 History tablet] gabapentin 800 mg tablet 800 mg PO TID 12/21/19 02/14/21 History insulin human U-100 NPH-regulr 85 units SQ DAILY 12/21/19 02/14/21 History 70-30 mix 100 unit/mL subcutaneous susp loratadine 10 mg tablet 10 mg PO DAILY 12/21/19 02/14/21 History omega 9-qka-zca-fish oil 300 1 cap PO BID 12/21/19 02/14/21 History mg-1,000 mg capsule,delayed release Insulin NPH Hum/Reg Insulin Hm 45 units SQ PM 02/12/20 02/14/21 History [Novolin 70-30 100 Unit/ml Vial] Multivit,Tx with Iron,Minerals 1 each PO DAILY 02/12/20 02/14/21 History [Complete Multivitamin] PHENobarbitaL [PHENobarbital 1 tab PO
--- NOTE | 2021-02-15 07:30 | HMH.PHAVTE ---
[facility] Pharmacy VTE Monitoring - Patient Demographics Admission date: 02/14/21 Report Date: 02/15/21 Time: 07:30 Allergies/Adverse Reactions: Patient Allergies metoclopramide [From REGLAN] Allergy (Mild, Verified 02/12/21 13:21) IGNACIO Height: 1.63 m Weight: 94.12 kg Patient Problems: Current Active Problems (Last Updated 05/16/20 @ 15:38 by Shelly Cunningham RN) Dehydration (Acute) Type 2 diabetes mellitus with peripheral neuropathy (Acute) Congestive heart failure (Acute) Acute renal failure (Acute) Pulmonary HTN (Acute) DEBORAH (acute kidney injury) (Acute) Combined systolic and diastolic heart failure (Acute) Edema of both lower extremities (Acute) Morbid obesity with body mass index (BMI) of 40.0 to 44.9 in adult (Acute) NYHA class 2 and ACC/AHA stage C acute on chronic systolic congestive heart failure (Acute) Cardiac defibrillator in situ (Chronic) Fatigue (Acute) Chronic congestive heart failure (Chronic) Cardiomyopathy (Chronic) Atrial fibrillation (Chronic) Coronary artery disease (Chronic) - VTE Risk Labs: VTE Related Lab Results Hgb 12.1 g/dL (12.2-16.2) L 02/14/21 13:40 Hct 34.7 % (37.0-47.0) L 02/14/21 13:40 Plt Count 222 K/mm3 (142-424) 02/14/21 13:40 Was VTE Risk Assessment Performed: Yes VTE Score: 5 VTE Risk Level: Low Risk - Prophylaxis VTE Prophylaxis Ordered?: Yes Types of VTE Prophylaxis: TEDS Knee High Location of Applied Device: Bilateral Lower Extremeties
[2021-02-15 09:12] LABS: Chloride 103 mmol/L (98-107); Sodium 139 mmol/L (136-145)
[2021-02-15 09:13] LABS: Potassium 4.3 mmoL/L (3.5-5.1)
[2021-02-15 09:16] LABS: Anion Gap 12.3 mEq/L (5-15); Calcium 9.3 mg/dl (8.4-10.2); Carbon Dioxide 28 mmol/L (22.0-30.0); Creatinine Clearance Estimated 37 mL/min (50-200); Estimated Glomerular Filt Rate 21 ml/min (>60); GFR (African American) 26 ML/MIN (>60); Glucose 172 mg/dl (74-100)
[2021-02-15 09:17] LABS: Basophils % 0.6 % (0.1-2.0); Eosinophils # 0.1 K/mm3 (0.0-0.4); Eosinophils % 2.3 % (0.1-12.0); Hematocrit 33.3 % (37.0-47.0); Hemoglobin 11.3 g/dL (12.2-16.2); Lymphocytes # 1.2 K/mm3 (0.7-4.5); Lymphocytes % 23.7 % (10-50); Mean Corpuscular HGB Conc 34.1 g/dL (31.8-35.4); Mean Corpuscular Hemoglobin 34.3 pg (27.0-31.2); Mean Corpuscular Volume 100.6 fl (81-99); Mean Platelet Volume 8.1 fl (7.4-10.4); Monocytes # 0.3 K/mm3 (0.1-1.0); Monocytes % 6.1 % (1.7-9.3); Neutrophils # 3.3 K/mm3 (1.8-7.8); Neutrophils % 67.3 % (37.0-80.0); Platelet Count 184 K/mm3 (142-424); Red Blood Count 3.31 M/mm3 (4.20-5.40); White Blood Count 4.9 K/mm3 (4.8-10.8)
[2021-02-15 09:19] LABS: Blood Urea Nitrogen 92 mg/dl (7-17)
--- NOTE | 2021-02-15 09:35 | HMH.PHAINT ---
home medications verified using list from [facility], list from cardiology office and Dr. Galvan' office.
--- NOTE | 2021-02-15 09:38 | PC.NURSE ---
REPORT RECEIVED FROM Mary Jo HUNTER RN @ THIS TIME
--- NOTE | 2021-02-15 11:03 | HMH.PNCARD ---
Subjective Date: 02/15/21 Time: 10:50 Principal diagnosis: acute renal failure, chf Interval history: This is a 65-year-old white female who presented to the emergency department with acute renal failure. The patient had been coming into cardiology clinic for treatment of acute exacerbation of her systolic congestive heart failure. Her diuretics had been changed around and the patient's renal function went up. Her diuretics were then decreased and even discontinued and her renal function continued to increase. The patient was admitted to the hospital for her acute renal failure and CHF. She has underwent right cardiac catheterization this morning which shows: ANGIOGRAPHIC RESULTS Right atrial pressure 3 mmHg Pulmonary artery pressure 35/18 Pulmonary occlusion pressure 11 mmHg Right atrial saturation 79% Pulmonary saturation 76% Ejection fraction 30% by echocardiogram IMPRESSION Patient is currently either euvolemic or intravascularly deplete based on her known ejection fraction and worsening creatinine PLAN 1. Recommend fluid challenge and hold diuretics The patient is euvolemic or even intravascularly depleted. A fluid challenge has been recommended and we will continue to hold her diuretics. Her renal function is down to 2.3 today which is better than 3.4 yesterday. The patient did have the settings changed to her [employer]-D device yesterday. Today she states that she is feeling much better. Her dizziness has resolved. She states that she is always somewhat short of breath but this is improved. She denies any chest pain or pressure. She denies any fever, chills, nausea, vomiting, diarrhea, PND or orthopnea. Exam Vital signs and Labs for Last 24 Hours: Temp Pulse Resp BP Pulse Ox 98.3 F 71 16 128/52 L 97 02/15/21 10:45 02/15/21 10:45 02/15/21 10:45 02/15/21 10:45 02/15/21 10:45 Laboratory Results - last 24 hr 02/14/21 13:40: WBC 9.2, RBC 3.51 L, Hgb 12.1 L, Hct 34.7 L, MCV 99.0, MCH 34.6 H, MCHC 34.9, RDW 16.1, Plt Count 222, MPV 8.8, Neut % (Auto) 74.4, Lymph % (Auto) 18.3, [place] % (Auto) 4.6, Eos % (Auto) 2.4, Baso % (Auto) 0.3, Neut # (Auto) 6.8, Lymph # (Auto) 1.7, [place] # (Auto) 0.4, Eos # (Auto) 0.2, Baso # (Auto) 0.0 02/14/21 13:40: Phosphorus 5.2 H, Magnesium 2.9 H 02/14/21 13:40: Digoxin 1.40 02/14/21 13:50: Chlamy pneumoniae PCR Not detected, Adenovirus (PCR) Not detected, B. pertussis DNA (PCR) Not detected, Coronavirus OC43 (PCR) Not detected, Coronavirus HKU1 (PCR) Not detected, Coronavirus 229E (PCR) Not detected, SARS-CoV-2 (PCR) Not detected, Coronavirus NL63 (PCR) Not detected, Human Metapneumovir PCR Not detected, Influenza A (H1) PCR Not detected, Influ A (H1N1/09) PCR Not detected, Influenza A (H3) PCR Not detected, Influenza Type A (PCR) Not detected, Influenza Type B (PCR) Not detected, M. pneumoniae (PCR) Not detected, Parainfluenza 1 (PCR) Not detected, Parainfluenza 2 (PCR) Not detected, Parainfluenza 3 (PCR) Not detected, Parainfluenza 4 (PCR) Not detected, RSV (PCR) Not detected, Entero/Rhino (PCR) Not detected 02/14/21 20:13: POC Glucose 223 H 02/15/21 05:59: POC Glucose 183 H 02/15/21 08:46: WBC 4.9 D, RBC 3.31 L, Hgb 11.3 L, Hct 33.3 L, MCV 100.6 H, MCH 34.3 H, MCHC 34.1, RDW 16.0, Plt Count 184, MPV 8.1, Neut % (Auto) 67.3, Lymph % (Auto) 23.7, [place] % (Auto) 6.1, Eos % (Auto) 2.3, Baso % (Auto) 0.6, Neut # (Auto) 3.3, Lymph # (Auto) 1.2, [place] # (Auto) 0.3, Eos # (Auto) 0.1, Baso # (Auto) 0.0 02/15/21 08:46: Sodium 139, Potassium 4.3, Chloride 103, Carbon Dioxide 28, Anion Gap 12.3, BUN 92 H, Creatinine 2.30 H D, Estimated Creat Clear 37, Estimated GFR 21 L, Est GFR ( Amer) 26 L D, Glucose 172 H D, Calcium 9.3 I & O for Last 24 hours: Intake & Output 02/12/21 02/13/21 02/14/21 02/15/21 23:59 23:59 23:59 23:59 Intake Total 1484 / 1484 Output Total 600 / 600 1150 / 1150 Balance -600 / -600 334 / 334 Weight 210 lb 207 lb 8 oz - Constitutional no acute distress, obese
[2021-02-15 11:32] LABS: POC Glucose,Bedside 155 (70-110)
[2021-02-15 17:17] LABS: POC Glucose,Bedside 175 (70-110)
--- NOTE | 2021-02-15 17:18 | PC.NURSE ---
No acute changes this shift. Remains on room air w/ no s/s of resp distress. Lungs noted to have fine crackles in bilat lower lobes. No c/o being SOA. HR regular. No c/o chest pain. Abdomen soft, non-tender w/ active BS in all quads. Voiding w/o difficulty. Ambulates w/ standby assistance to bathroom w/ no safety concerns. R IJ cath site c/d/i. Pt's sister @ bedside this shift. Updated on pt's POC. She is currently sitting up in bed eating supper. No needs voiced. Call horacio w/in reach.
[2021-02-15 21:20] LABS: POC Glucose,Bedside 220 (70-110)
--- NOTE | 2021-02-15 21:52 | PC.NURSE ---
Student nurse, Naomie Paiz will be providing care under my supervision.
[2021-02-16] VITALS: BP 107/51; PULSE 68; RESP 16; TEMP 36.6; O2SAT 94
[2021-02-16 04:00] VITALS: BP 111/55; PULSE 70; PULSE 71; RESP 16; TEMP 36.6; O2SAT 95
[2021-02-16 04:42] LABS: POC Glucose,Bedside 126 (70-110)
[2021-02-16 05:00] VITALS: BMI 35.5
--- NOTE | 2021-02-16 05:53 | PC.NURSE ---
No acute changes noted. Pt has slept well this shift. No complaints stated. FSBS this Am was 126. Medication administered per jan. VSS. Pt remains on RA. Lungs are diminished. 1+ edema noted to franco ankles. Cath incision with DSG is C/D/I. No other concerns at this time. Call light within reach. Will continue to monitor.
--- NOTE | 2021-02-16 07:17 | HMH.ACPN2 ---
Internal Medicine - PN: Subj *Date: 02/16/21 *Time: 07:17 Interval history: Patient feels significantly better today. Right heart catheterization indicated euvolemia. IV fluids have been stopped this morning Exam Vital signs and Labs for Last 24 Hours: Temp Pulse Resp BP Pulse Ox 97.9 F 71 16 111/55 L 95 02/16/21 04:00 02/16/21 04:00 02/16/21 04:00 02/16/21 04:00 02/16/21 04:00 Laboratory Results - last 24 hr 02/15/21 08:46: WBC 4.9 D, RBC 3.31 L, Hgb 11.3 L, Hct 33.3 L, MCV 100.6 H, MCH 34.3 H, MCHC 34.1, RDW 16.0, Plt Count 184, MPV 8.1, Neut % (Auto) 67.3, Lymph % (Auto) 23.7, [place] % (Auto) 6.1, Eos % (Auto) 2.3, Baso % (Auto) 0.6, Neut # (Auto) 3.3, Lymph # (Auto) 1.2, [place] # (Auto) 0.3, Eos # (Auto) 0.1, Baso # (Auto) 0.0 02/15/21 08:46: Sodium 139, Potassium 4.3, Chloride 103, Carbon Dioxide 28, Anion Gap 12.3, BUN 92 H, Creatinine 2.30 H D, Estimated Creat Clear 37, Estimated GFR 21 L, Est GFR ( Amer) 26 L D, Glucose 172 H D, Calcium 9.3 02/15/21 11:08: POC Glucose 155 H 02/15/21 17:03: POC Glucose 175 H 02/15/21 20:28: POC Glucose 220 H 02/16/21 04:35: POC Glucose 126 H I & O for Last 24 hours: Intake & Output 02/13/21 02/14/21 02/15/21 02/16/21 11:59 11:59 11:59 11:59 Intake Total 1484 / 1484 840 / 840 Output Total 1750 / 1750 650 / 650 Balance -266 / -266 190 / 190 Weight 207 lb 8 oz 208 lb - Constitutional no acute distress - *Routine Respiratory Exam Present: CTA bilaterally - *Routine Cardiovascular Exam Present: irregular rhythm - *Routine Abdominal Exam Present: soft, normoactive bowel sounds. Absent: tenderness - *Routine Extremities Exam Absent: cyanosis, clubbing, edema Assessment and Plan (1) Pulmonary HTN Status: Acute Category: Medical Code(s): I27.20 - Pulmonary hypertension, unspecified (2) DEBORAH (acute kidney injury) Status: Acute Category: Medical Code(s): N17.9 - Acute kidney failure, unspecified (3) Combined systolic and diastolic heart failure Status: Acute Qualifiers: Heart failure chronicity: acute on chronic Qualified Code(s): I50.43 - Acute on chronic combined systolic (congestive) and diastolic (congestive) heart failure Category: Medical Code(s): I50.40 - Unspecified combined systolic (congestive) and diastolic (congestive) heart failure (4) Congestive heart failure Status: Acute Qualifiers: Heart failure type: systolic Heart failure chronicity: acute on chronic Qualified Code(s): I50.23 - Acute on chronic systolic (congestive) heart failure Category: Medical Code(s): I50.9 - Heart failure, unspecified (5) Edema of both lower extremities Status: Acute Category: Medical Code(s): R60.0 - Localized edema (6) Fatigue Status: Acute Category: Medical Code(s): R53.83 - Other fatigue (7) Morbid obesity with body mass index (BMI) of 40.0 to 44.9 in adult Status: Acute Category: Medical Code(s): E66.01 - Morbid (severe) obesity due to excess calories; Z68.41 - Body mass index [BMI]40.0-44.9, adult (8) NYHA class 2 and ACC/AHA stage C acute on chronic systolic congestive heart failure Status: Acute Category: Medical Code(s): I50.23 - Acute on chronic systolic (congestive) heart failure (9) Type 2 diabetes mellitus with peripheral neuropathy Status: Acute Category: Medical Code(s): E11.42 - Type 2 diabetes mellitus with diabetic polyneuropathy (10) Atrial fibrillation Status: Chronic Qualifiers: Atrial fibrillation type: longstanding persistent Qualified Code(s): I48.11 - Longstanding persistent atrial fibrillation Category: Medical Code(s): I48.91 - Unspecified atrial fibrillation (11) Cardiac defibrillator in situ Status: Chronic Category: Medical Code(s): Z95.810 - Presence of automatic (implantable) cardiac defibrillator (12) Cardiomyopathy Status: Chronic Qualifiers: Cardiomyopathy type: dilated Qualified Code(s):
[2021-02-16 07:38] LABS: Anion Gap 13.3 mEq/L (5-15); Blood Urea Nitrogen 58 mg/dl (7-17); Calcium 9.3 mg/dl (8.4-10.2); Carbon Dioxide 26 mmol/L (22.0-30.0); Chloride 108 mmol/L (98-107); Creatinine Clearance Estimated 57 mL/min (50-200); Estimated Glomerular Filt Rate 35 ml/min (>60); GFR (African American) 42 ML/MIN (>60); Glucose 134 mg/dl (74-100); Potassium 4.3 mmoL/L (3.5-5.1); Sodium 143 mmol/L (136-145)
[2021-02-16 08:00] VITALS: BP 132/91; PULSE 70; PULSE 71; RESP 22; TEMP 36.6; O2SAT 98
--- NOTE | 2021-02-16 10:08 | SW/DCPLANNER ---
PATIENT DISCHARGING HOME TODAY WITH NO HOME CARE SERVICES ORDERED AT THIS TIME....
--- NOTE | 2021-02-17 15:00 | PC.NURSE ---
THIS RN PHONED PATIENT TO LET HER KNOW THAT THERE WERE 2 INSULIN PENS IN THE REFRIGERATOR. PATIENT STATED THAT SHE WILL PICK THEM UP.
--- NOTE | 2021-04-12 06:38 | HMH.DCSUM ---
General - General Admission date:: 02/14/21 Discharge date: 02/16/21 HPI HPI: 65-year-old female with nonischemic cardiomyopathy, history of atrial fibrillation, congestive heart failure was admitted to the hospital yesterday after progressive worsening of renal function over the preceding 2 weeks. Patient had been symptomatic from her congestive heart failure and adjustments were being made to diuretics. Patient developed acute kidney injury that did not respond to IV fluid hydration. Cardiology service recommended admission for right heart catheterization. In the emergency department patient was hypotensive and was given IV fluids. She was continued on IV fluids overnight. This morning patient denies chest pain or dyspnea however her activity has been minimal moving only 3 feet between the bed and the bedside commode. She reports normal urinations over the last 2 weeks with no perceived decrease in urine volume. She denies blood in her urine or dysuria. Hospital Course Hospital Course: Patient was admitted with plan for right heart catheterization. She was started on IV fluids for her acute kidney injury. Patient's creatinine showed gradual improvement. On February 15 she underwent right heart catheterization with findings consistent with euvolemia. At that point to avoid fluid overload patient's IV fluids were discontinued. On February 16 patient's creatinine had returned to baseline and the patient had significant improvement in dyspnea as well as overall energy level. Patient was discharged home Objective Vital signs: Temp Pulse Resp BP Pulse Ox 97.8 F 71 22 132/91 H 98 02/16/21 08:00 02/16/21 08:00 02/16/21 08:00 02/16/21 08:00 02/16/21 08:00 DS: Diagnosis - Discharge Diagnosis (1) Pulmonary HTN Status: Acute (2) DEBORAH (acute kidney injury) Status: Acute (3) Combined systolic and diastolic heart failure Status: Acute (4) Congestive heart failure Status: Acute (5) Edema of both lower extremities Status: Acute (6) Fatigue Status: Acute (7) Morbid obesity with body mass index (BMI) of 40.0 to 44.9 in adult Status: Acute (8) NYHA class 2 and ACC/AHA stage C acute on chronic systolic congestive heart failure Status: Acute (9) Type 2 diabetes mellitus with peripheral neuropathy Status: Acute (10) Atrial fibrillation Status: Chronic (11) Cardiac defibrillator in situ Status: Chronic (12) Cardiomyopathy Status: Chronic (13) Coronary artery disease Status: Chronic Discharge Plan - Patient Discharge Instructions ACTIVITY: Continue current activity DIET: continue same diet Patient Instructions: How to Care for a Surgical Wound, Heart Failure, DI for Kidney Failure, DI for Heart Failure, DI for Dehydration -- Adult, DI for Surgical Site Infection - Follow up Plan Follow up with: Abhijit Armstrong MD [Staff Physician] - 02/26/21 2:00 pm Rad Galvan MD [Primary Care Provider] - 02/21/21 10:30 am Disposition: Home, Self-Care Condition at discharge:: Improved Home Medications: Home Medications Medication Instructions Recorded Confirmed Type Atorvastatin Calcium [Lipitor 10mg 10 mg PO DAILY 12/03/17 02/14/21 History Tab] Pantoprazole Sodium [Protonix 40mg 40 mg PO BID 12/03/17 02/14/21 History tablet] Tramadol HCl [Ultram 50mg 50 mg PO BIDP PRN 12/03/17 02/15/21 History tablet] insulin human U-100 NPH-regulr 0 units SQ DIRECTED 12/21/19 02/15/21 History 70-30 mix 100 unit/mL subcutaneous susp loratadine 10 mg tablet 10 mg PO DAILY 12/21/19 02/14/21 History omega 4-uak-cof-fish oil 300 1 cap PO BID 12/21/19 02/14/21 History mg-1,000 mg capsule,delayed release Multivit,Tx with Iron,Minerals 1 tab PO DAILY 02/12/20 02/15/21 History [Complete Multivitamin] PHENobarbitaL [PHENobarbital 32.4 mg PO TID 02/12/20 02/15/21 History 32.4mg Tablet] Digoxin 125 mcg PO DAILY 03/27/20 03
== END 2021-02-16 10:00 | disposition home or self-care (01) ==
LOC: ER 14:03 → 2ND 16:19
PROVIDERS: Admitting Provider Family Medicine; Emergency Provider Emergency Medicine; PCP Family Medicine; Referring Provider Internal Medicine; Visit Provider Family Medicine
DX: N17.9 Acute kidney failure, unspecified (principal); I11.0 Hypertensive heart disease with heart failure; Z79.84 Long term (current) use of oral hypoglycemic drugs; Z79.899 Other long term (current) drug therapy; I25.10 Atherosclerotic heart disease of native coronary artery without angina pectoris; Z95.0 Presence of cardiac pacemaker; I50.43 Acute on chronic combined systolic (congestive) and diastolic (congestive) heart failure; I48.11 Longstanding persistent atrial fibrillation; I42.0 Dilated cardiomyopathy; E11.42 Type 2 diabetes mellitus with diabetic polyneuropathy; I27.20 Pulmonary hypertension, unspecified
CPT/HCPCS: 36415; 71045; 80048; 80162; 82962; 83735; 84100; 85025; 87581; 87633; 87798; 93306; 93451; 96360; 96365; 96375; 99152; 99284; C1894; G0378; J1644; J2310; Q9957

== ENCOUNTER → 2021-02-26 15:17 | Outpatient (CLI) | payer MEDICARE, SELFPAY ==
[2021-02-26 17:11] LABS: Chloride 101 mmol/L (98-107); Sodium 140 mmol/L (136-145)
[2021-02-26 17:14] LABS: Blood Urea Nitrogen 33 mg/dl (7-17); Estimated Glomerular Filt Rate 41 ml/min (>60); GFR (African American) 50 ML/MIN (>60)
[2021-02-26 17:15] LABS: Calcium 9.6 mg/dl (8.4-10.2); Carbon Dioxide 33 mmol/L (22.0-30.0); Glucose 55 mg/dl (74-100)
== END ==
PROVIDERS: Visit Provider Physician Assistant
DX: E11.9 Type 2 diabetes mellitus without complications (principal); G47.33 Obstructive sleep apnea (adult) (pediatric); I25.10 Atherosclerotic heart disease of native coronary artery without angina pectoris; I42.8 Other cardiomyopathies; I42.9 Cardiomyopathy, unspecified; I48.91 Unspecified atrial fibrillation; I50.20 Unspecified systolic (congestive) heart failure; I50.30 Unspecified diastolic (congestive) heart failure; K21.9 Gastro-esophageal reflux disease without esophagitis; R06.00 Dyspnea, unspecified; R07.89 Other chest pain; Z79.4 Long term (current) use of insulin; I11.0 Hypertensive heart disease with heart failure
CPT/HCPCS: 36415; 80048

== ENCOUNTER 2021-03-05 15:00 | Outpatient (RCR) | payer MEDICARE, SELFPAY ==
--- NOTE | 2021-01-01 16:02 | HMH.OTOPEV ---
OT Inpatient Evaluation Rehab OT Outpatient Eval Start: 01/01/21 15:16 Freq: Status: Active Protocol: Document 01/01/21 15:16 RMARSHALL (Rec: 01[facility]01/21 15:53 [id number] Electronically Signed By Mario Samaniego OT 01/01/21 15:16 Outpatient Therapy Subjective History Subjective History Pt is a 65 year old female seen this date for initial evaluation to right shoulder and right 3rd finger. Pt reports her shoulder began hurting her ~2 months ago and does not recall a specific injury causing her pain. Pt explained she did receive an injection ~4 weeks ago from ortho in shoulder and she does feel her AROM has improved. Pt continues to demnostrate decreased AROM and strength at R shoulder. Pt presents with significant swelling around MCP joint of 3rd finger on right hand. Pt claims she was [place] the [facility] [place] (from [place]) and had an IV complication in R hand. Pt reports since this she has had swelling at MCP joint as well as decreased AROM of 3rd finger. Pt does demonstrate with decreased AROM and strength at 3rd finger in right hand. Pt also demonstrates with decreased planer hand strength in right hand, which is her dominant hand. Pt will continue to be seen twice a week to address all deficits in RUE. STG AROM R Middle finger MP Flex: 65 degrees PIP flex: 75 degrees DIP Flex: 60 degrees LTG AROM R Middle Finger MP Flex: 80 degrees PIP flex: 95 degrees DIP flex: 70 degrees STG R hand planer hand strength 25 lbs LTG R hand planer hand strength 40 lbs Chief Complaint
--- NOTE | 2021-02-06 16:11 | HMH.RHREAS ---
Rehab Reassessment Rehab OP Re-assessment Start: 02/06/21 15:44 Freq: Status: Active Protocol: Document 02/06/21 15:57 RMARSHALL (Rec: 02/06/21 16:10 RMARSHALL [id number]) Electronically Signed By Mario Samainego OT 02/06/21 15:57 Rehab Re-assessment Subjective Subjective My shoulder is still hurting. Objective Objective Notes Pt continues to be seen twice weekly in order to address right shoulder and right middle finger deficits. Each session pt engages in R shoulder and R finger/hand exercises to improve endurance and strength. Pt also receives manual stretching assist reaching full AROM at all joints. Modalities are provided in order to decrease pain/inflammation. Assessment Progress Assessment Progressing as Expected Assessment Notes At this time, pt demonstrates improvement at both the middle finger and the shoulder. She is now able to actively make a fist with her right hand, which she was unable to do at initial evaluation. She still has swelling on posterior aspect of right hand, but it is a dense sensation and doesnt appear to be fluid filled. This area may remain there. 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 Pt has met all goals written for R middle finger ( long and short term goals). Therefore, pt's finger does not have to be treated anymore . Pt's shoulder continues to have intermittent pain. She reports most of her pain when she is at home doing housework . Pt's AROM has improves slightly as well as strength. Therapist will continue to complete therapy sessions on right shoulder. Curr
--- NOTE | 2021-03-05 14:52 | HMH.RHREAS ---
Rehab Reassessment Rehab OP Re-assessment Start: 02/06/21 15:44 Freq: Status: Active Protocol: Document 03/05/21 14:39 MAHIN (Rec: 03/05/21 14:52 MAHIN [id number]) Electronically Signed By Mario Samaniego OT 03/05/21 14:39 Rehab Re-assessment Subjective Subjective My shoulder is doing great. Objective Objective Notes Pt has continued to be seen twice a week for right shoulder. Pt was discharged at right hand due to improvement with motion and pain. Each session pt engages in right shoulder AROM/AAROM/ Strengthening exercises. Pt does receive some modalities in order to decrease pain/ inflammation. Assessment Progress Assessment Progressing as Expected Assessment Notes Pt demonstrates improvement in the right shoulder. She expresses she no longer has any pain at the right shoulder . She also explains she is able to complete all activities as desired. As of now, pt's AROM is within functional limites. Pt has been educated to continue completing all exercises on her own at home; pt verbalized understanding and is agreeable. Current AROM R shoulder Flex: 140 degrees Abd: 130 degrees ER: 70 degrees IR: 80 degrees Patient goals met All goals have been met at this time Goals Not Met n/a Revised Goals Pt has met all goals. Plan Plan Discharge patient at this time ; pt agreeable to plan of care . Time and Billing Re-Eval Time 10 Re-Eval Billing Units 1 PHYSICIAN CERTIFICATION: I certify the specified therapy services for Sara Edwards are required, authorized, and reviewed every 30 days.
== END 2021-03-05 15:05 | disposition home or self-care (01) ==
LOC: OT 15:00
PROVIDERS: PCP Family Medicine; Visit Provider Orthopaedic Surgery
DX: M25.511 Pain in right shoulder (principal)
CPT/HCPCS: 97010; 97110; 97140; 97164; 97166

== ENCOUNTER → 2021-03-26 14:37 | Outpatient (CLI) | payer MEDICARE, SELFPAY ==
[2021-03-26 16:04] LABS: Chloride 101 mmol/L (98-107); Potassium 4.7 mmoL/L (3.5-5.1); Sodium 138 mmol/L (136-145)
[2021-03-26 16:07] LABS: Anion Gap 11.7 mEq/L (5-15); Blood Urea Nitrogen 26 mg/dl (7-17); Calcium 9.3 mg/dl (8.4-10.2); Carbon Dioxide 30 mmol/L (22.0-30.0); Estimated Glomerular Filt Rate 41 ml/min (>60); GFR (African American) 50 ML/MIN (>60); Glucose 87 mg/dl (74-100)
[2021-03-26 16:17] LABS: NT Pro Brain Natriuretic Pep. 281 pg/mL (0-125)
== END ==
PROVIDERS: Visit Provider Physician Assistant
DX: E11.9 Type 2 diabetes mellitus without complications (principal); G47.33 Obstructive sleep apnea (adult) (pediatric); I11.0 Hypertensive heart disease with heart failure; I25.10 Atherosclerotic heart disease of native coronary artery without angina pectoris; I42.8 Other cardiomyopathies; I48.91 Unspecified atrial fibrillation; K21.9 Gastro-esophageal reflux disease without esophagitis; R06.00 Dyspnea, unspecified; I50.43 Acute on chronic combined systolic (congestive) and diastolic (congestive) heart failure; Z79.4 Long term (current) use of insulin
CPT/HCPCS: 36415; 80048; 83880

== ENCOUNTER → 2021-04-03 10:36 | Outpatient (CLI) | payer MEDICARE, SELFPAY ==
[2021-04-03 12:06] LABS: Chloride 98 mmol/L (98-107); Potassium 4.3 mmoL/L (3.5-5.1); Sodium 135 mmol/L (136-145)
[2021-04-03 12:09] LABS: Anion Gap 14.3 mEq/L (5-15); Blood Urea Nitrogen 23 mg/dl (7-17); Carbon Dioxide 27 mmol/L (22.0-30.0); Estimated Glomerular Filt Rate 50 ml/min (>60); GFR (African American) 61 ML/MIN (>60)
[2021-04-03 12:10] LABS: Calcium 9.8 mg/dl (8.4-10.2); Glucose 154 mg/dl (74-100)
[2021-04-03 12:20] LABS: NT Pro Brain Natriuretic Pep. 438 pg/mL (0-125)
== END ==
PROVIDERS: Visit Provider Physician Assistant
DX: E11.9 Type 2 diabetes mellitus without complications (principal); G47.33 Obstructive sleep apnea (adult) (pediatric); H53.123 Transient visual loss, bilateral; I25.10 Atherosclerotic heart disease of native coronary artery without angina pectoris; I42.8 Other cardiomyopathies; I48.91 Unspecified atrial fibrillation; I50.30 Unspecified diastolic (congestive) heart failure; K21.9 Gastro-esophageal reflux disease without esophagitis; R06.00 Dyspnea, unspecified; R07.89 Other chest pain; R60.0 Localized edema; Z79.4 Long term (current) use of insulin; I50.23 Acute on chronic systolic (congestive) heart failure; I11.0 Hypertensive heart disease with heart failure
CPT/HCPCS: 36415; 80048; 83880

== ENCOUNTER → 2021-05-15 12:33 | Outpatient (CLI) | payer MEDICARE, SELFPAY ==
[2021-05-15 13:34] LABS: Anion Gap 15.4 mEq/L (5-15); Calcium 9.1 mg/dl (8.4-10.2); Carbon Dioxide 30 mmol/L (22.0-30.0); Chloride 94 mmol/L (98-107); Glucose 216 mg/dl (74-100); Potassium 4.4 mmoL/L (3.5-5.1); Sodium 135 mmol/L (136-145)
[2021-05-15 16:00] LABS: Blood Urea Nitrogen 34 mg/dl (7-17); Estimated Glomerular Filt Rate 45 ml/min (>60); GFR (African American) 55 ML/MIN (>60)
== END ==
PROVIDERS: Visit Provider Nurse Practitioner Family
DX: E11.9 Type 2 diabetes mellitus without complications (principal); G47.33 Obstructive sleep apnea (adult) (pediatric); H53.123 Transient visual loss, bilateral; I25.10 Atherosclerotic heart disease of native coronary artery without angina pectoris; I42.8 Other cardiomyopathies; I48.91 Unspecified atrial fibrillation; I50.20 Unspecified systolic (congestive) heart failure; I50.30 Unspecified diastolic (congestive) heart failure; K21.9 Gastro-esophageal reflux disease without esophagitis; R06.00 Dyspnea, unspecified; R07.89 Other chest pain; R60.0 Localized edema; Z79.4 Long term (current) use of insulin; I11.0 Hypertensive heart disease with heart failure
CPT/HCPCS: 36415; 80048

== ENCOUNTER → 2021-08-28 13:59 | Outpatient (CLI) | payer MEDICARE, SELFPAY ==
[2021-08-28 14:02] LABS: Microscopic, Urine URINE MICROSCOPIC (MICROSCOPIC)
[2021-08-28 14:31] LABS: Basophils # 0.1 K/mm3 (0-0.2); Basophils % 0.8 % (0.1-2.0); Eosinophils # 0.2 K/mm3 (0.0-0.4); Hematocrit 40.3 % (37.0-47.0); Hemoglobin 13.4 g/dL (12.2-16.2); Lymphocytes # 2.1 K/mm3 (0.7-4.5); Lymphocytes % 29.2 % (10-50); Mean Corpuscular HGB Conc 33.2 g/dL (31.8-35.4); Mean Corpuscular Hemoglobin 35.7 pg (27.0-31.2); Mean Corpuscular Volume 107.5 fl (81-99); Mean Platelet Volume 8.5 fl (7.4-10.4); Monocytes # 0.4 K/mm3 (0.1-1.0); Monocytes % 6.1 % (1.7-9.3); Neutrophils # 4.4 K/mm3 (1.8-7.8); Neutrophils % 60.9 % (37.0-80.0); Platelet Count 244 K/mm3 (142-424); Red Blood Count 3.75 M/mm3 (4.20-5.40); Red Cell Distribution Width 14.7 % (11.5-17.5); White Blood Count 7.2 K/mm3 (4.8-10.8)
[2021-08-28 14:44] LABS: Appearance,Urine SL CLOUDY (Clear); Bilirubin,Urine Negative (Negative); Blood, Urine Negative (Negative); Color,Urine YELLOW (Yellow); Glucose,Urine (UA) Negative (Negative); Ketones,Urine Negative (Negative); Leukocyte Esterase,Urine 1+ (Negative); Nitrate,Urine Negative (Negative); Protein,Urine Negative (Negative); Urobilinogen,Urine 0.2 EU/dl (0.2)
[2021-08-28 15:08] LABS: Bacteria,Urine 4+ /lpf; Squamous Epithelial Cell,Urine Occasional #/hpf (0-5)
[2021-08-28 15:49] LABS: Chloride 99 mmol/L (98-107); Potassium 4.1 mmoL/L (3.5-5.1); Sodium 140 mmol/L (136-145)
[2021-08-28 15:51] LABS: Alanine Aminotransferase 42 U/L (12-78); Anion Gap 13.1 mEq/L (5-15); Aspartate Amino Transferase 48 U/L (14-36); Blood Urea Nitrogen 16 mg/dl (7-17); Carbon Dioxide 32 mmol/L (22.0-30.0); Estimated Glomerular Filt Rate 56 ml/min (>60); GFR (African American) 68 ML/MIN (>60)
[2021-08-28 15:52] LABS: Alkaline Phosphatase 170 U/L (38-126); Bilirubin,Total 0.4 mg/dl (0.2-1.3); Chol/HDL Ratio 2.8 (1-3.5); Cholesterol 117 mg/dl (140-200); HDL Cholesterol 42 mg/dl (40-60); Triglycerides 243 mg/dl (30-150); VLDL Cholesterol 49 mg/dL (0-40)
[2021-08-28 16:00] LABS: Bilirubin,Unconjugated 0.2 mg/dL (0.0-1.1); Calcium 9.3 mg/dl (8.4-10.2); Glucose 80 mg/dl (74-100)
[2021-08-28 16:10] LABS: Direct LDL Cholesterol 42.86 mg/dL (100-129)
[2021-08-28 16:19] LABS: Bilirubin,Indirect 0.4 mg/dL (0.0-0.9)
== END ==
PROVIDERS: Visit Provider Nurse Practitioner Family
DX: M54.50 Low back pain, unspecified (principal); I25.10 Atherosclerotic heart disease of native coronary artery without angina pectoris; I42.9 Cardiomyopathy, unspecified; I48.91 Unspecified atrial fibrillation; I50.40 Unspecified combined systolic (congestive) and diastolic (congestive) heart failure; I50.9 Heart failure, unspecified; I11.0 Hypertensive heart disease with heart failure; Z95.810 Presence of automatic (implantable) cardiac defibrillator; R06.00 Dyspnea, unspecified; R06.01 Orthopnea; R60.0 Localized edema; R82.90 Unspecified abnormal findings in urine; E78.5 Hyperlipidemia, unspecified; B96.1 Klebsiella pneumoniae [K. pneumoniae] as the cause of diseases classified elsewhere
CPT/HCPCS: 36415; 80048; 80061; 80076; 81001; 85025; 87086; 87088; 87186

== ENCOUNTER → 2022-01-10 13:00 | Outpatient (CLI) | payer MEDICARE, SELFPAY ==
[2022-01-10 14:11] LABS: Anion Gap 13.7 mEq/L (5-15); Blood Urea Nitrogen 30 mg/dl (7-17); Calcium 9.3 mg/dl (8.4-10.2); Carbon Dioxide 33 mmol/L (22.0-30.0); Chloride 96 mmol/L (98-107); Estimated Glomerular Filt Rate 50 ml/min (>60); GFR (African American) 61 ML/MIN (>60); Glucose 163 mg/dl (74-100); Potassium 4.7 mmoL/L (3.5-5.1); Sodium 138 mmol/L (136-145)
== END ==
PROVIDERS: Visit Provider Physician Assistant
DX: I10 Essential (primary) hypertension (principal)
CPT/HCPCS: 36415; 80048

== ENCOUNTER → 2022-02-08 11:52 | Outpatient (CLI) | payer MEDICARE, SELFPAY ==
--- NOTE | 2022-02-08 | CA_ITS ---
APPROVED REPORT Exam: Pharmacologic Technologist: Michelle Frazier, Ht: 5 ft 5 in Wt: 218 lbs BSA: 2.05 m2 HR: 70 bpm BP: 112/56 mmHg Medical History Medical History: HTN, Hyperlipidemia, Diabetic ??? Noninsulin Medications: Gabapentin,,,,, Fish Oil,,,,, Allopurinol,,,,, Pantoprazole,,,,, Atorvastatin,,,,, XaRELTO,,,,, Tramadol,,,,, Digoxin,,,,, Valsartan,,,,, LoraTADINE,,,,, BisOPROLOL Fumarate,,,,, BiOTIN,,,,, Cardiac Risk Factors: HTN, Hyperlipidemia, Diabetes (non-insulin), FHX of CAD Stress Test Details Test: LEXISCAN HR Resting HR: 70 bpm Max Heart Rate (APMHR): 156.233555 bpm Max HR Achieved: 93 bpm Target HR (85% APMHR): 132.498781 bpm % of APMHR: 59.62 Recovery HR: 75 bpm BP Resting BP: 112/56 mmHg Max BP: 122/53 mmHg Recovery BP: 114.0/49.0 mmHg ECG Clinical Exercise duration: 04:07 min Highest Stage Achieved: Exercise capacity: 1.0 METs Stress ECG Conclusion During lexiscan pt experinced nausea with lexiscan, resolved in recovery. No CP noted. PVCs noted. <1.5mm ST segment changes. Test Summary REST . . . . . . . Sitting REST 10:20 . . 70 . 112/ 56 . . Stage 1 01:00 . . 75 . . . . Stage 2 01:00 . . 85 . . . . Stage 3 01:00 . . 86 . . . . Stage 4 01:00 . . 82 . 122/ 53 . . Stage 4 01:07 . . 77 . 122/ 53 . Stop exercise at 04:07 RECOVERY 01:00 . . 67 . 115/ 55 . . RECOVERY 02:00 . . 77 . 115/ 55 . . RECOVERY 03:00 . . 71 . 114/ 49 . . RECOVERY 04:00 . . 70 . 114/ 49 . . RECOVERY 04:31 . . 78 . 113/ 53 . . Electronically signed by : Roney Wyatt MD 02/08/2022 14:26:35
--- NOTE | 2022-02-08 11:53 | NM_ITS ---
APPROVED REPORT Exam: Nuclear Stress Test Indication: HTN, D.M., HYPERLIPIDEMIA, FM HX, C.P., SOB, FATIGUE, A-FIB Patient Location: Outpatient Stress Tech: [facility] Tech:Shelly Tuttle, ARRT RT (R)(N)(M) Ht: 5 ft 1 in Wt: 216 lbs Bra Size: 42C HR: 70 bpm BP: 112/56 mmHg BSA: 1.95 m2 BMI: 40.8 History: HTN, D.M., HYPERLIPIDEMIA, FM HX, C.P., SOB, FATIGUE, A-FIB PT COULD NOT LAY ON STOMACH FOR PRONE IMAGES Procedure: Patient received a 0.4 mg of intravenous Lexiscan, resting heart rate 70 bpm, resting blood pressure 112/56 mmHg, with Lexiscan maximum heart rate achived was 88 bpm which is % of the maximum predicted heart rate and blood pressure was 122/53 mmHg. With Lexiscan, patient denied any complaint of chest pain. Electrocardiogram Resting electrocardiogram showed electronically paced rhythm, with Lexiscan there is less than 1.[address] segment depression noted from the baseline EKG. The EKG portion of the Lexiscan is nondiagnostic Cardiac Stress and Resting SPECT Images: Cardiac Stress and Resting SPECT images were obtained using technetium 99m Myoview 31.8 mCi stress and 9.85 mCi at rest. Here to discuss prognosis of segmental wall motion and calculation of the ejection fraction of present. Cardiac silhouette. Inferior pole myocardial activity without segmental perfusion abnormality, computer derived ejection fraction 50% with no regional wall motion abnormality, right ventricle is normal size and contractility. Conclusion: 1. The EKG portion of the Lexiscan is nondiagnostic. 2. No scintigraphic evidence of reversible ischemia seen, computer derived ejection fraction is 50% with no regional wall motion normality, right ventricle is normal size and contractility. 3. Normal Lexiscan Myoview study. Electronically signed by : Roney Wyatt MD 02/09/2022 09:16:05
== END ==
LOC: RAD 11:53
PROVIDERS: PCP Family Medicine; Visit Provider Nurse Practitioner Family
DX: R06.00 Dyspnea, unspecified; R06.01 Orthopnea; I25.10 Atherosclerotic heart disease of native coronary artery without angina pectoris; I11.0 Hypertensive heart disease with heart failure; I42.9 Cardiomyopathy, unspecified; I48.91 Unspecified atrial fibrillation; I50.40 Unspecified combined systolic (congestive) and diastolic (congestive) heart failure; I50.9 Heart failure, unspecified; E78.5 Hyperlipidemia, unspecified; R60.0 Localized edema; Z95.810 Presence of automatic (implantable) cardiac defibrillator
CPT/HCPCS: 78452; 93017; A9502; J2785

== ENCOUNTER 2022-03-04 09:57 | Emergency (ER) | payer MEDICARE, SELFPAY ==
[2022-03-04 09:58] VITALS: BP 177/100; PULSE 104; RESP 16; TEMP 36.8; O2SAT 98; BMI 41.8
--- NOTE | 2022-03-04 10:17 | HMH.EDGENADL ---
ED Disposition Clinical Impression: Gingival bleeding Disposition: Home, Self-Care Condition on Discharge: Good Additional Instructions: If your condition worsens or any other concerning symptoms arise please return to the emergency department for reassessment. Symptoms to watch out for include, but are not limited to, fainting, shortness of breath, chest pain, worsening bleeding. Please follow-up with your dentist at your appointment this afternoon. Referrals: Provider,Referral, [Primary Care Provider] - - Critical Care Critical Care Time: No Attestation: On 03/04/22, the high probability of a clinically significant, sudden or life threatening deterioration of the following system(s) required my full and direct attention, intervention and personal management. The time I documented below is in addition to time spent performing reported procedures but includes the following listed in this critical care notation. Medical Decision Making - Medical Records Medical records reviewed: Yes: I reviewed the patient's medical records. - Neil Inquiry Pt receiving controlled substance: No Vital Signs: 03/04/22 09:58 03/04/22 12:47 Temperature 98.2 F 98.2 F Temperature Source Oral Oral Pulse Rate 90 Pulse Rate [Radial] 104 H Respiratory Rate 16 18 Blood Pressure 168/80 H Blood Pressure [Right Arm] 177/100 H Blood Pressure Mean [Right Arm] 125 Blood Pressure Source Automatic Cuff Blood Pressure Position Sitting Blood Pressure Position [Right Arm] Sitting 02 Sat by Pulse Oximetry 98 Oxygen Delivery Method Room Air Room Air - Lab Data Lab results reviewed: Yes: I reviewed the patient's lab results. Lab Results 03/04/22 10:16: WBC 7.0, RBC 3.71 L, Hgb 13.5, Hct 40.1, MCV 108.1 H, MCH 36.3 H, MCHC 33.5, RDW 14.9, Plt Count 231, MPV 8.6, Neut % (Auto) 71.5, Lymph % (Auto) 19.5, [place] % (Auto) 5.3, Eos % (Auto) 2.5, Baso % (Auto) 1.2, Neut # (Auto) 5.0, Lymph # (Auto) 1.4, [place] # (Auto) 0.4, Eos # (Auto) 0.2, Baso # (Auto) 0.1 03/04/22 10:16: PT 14.9 H, INR 1.35 H 03/04/22 10:16: Sodium 134 L, Potassium 4.2, Chloride 99, Carbon Dioxide 29, Anion Gap 10.2, BUN 29 H, Creatinine 1.10 H, Estimated Creat Clear 37, Estimated GFR 50 L, Est GFR ( Amer) 61, Glucose 184 H, Calcium 8.6, Total Bilirubin 0.6, AST 55 H, ALT 38, Alkaline Phosphatase 231 H, Total Protein 7.1, Albumin 3.9, Globulin 3.2, Albumin/Globulin Ratio 1.2 Result diagrams: 03/04/22 10:16 03/04/22 10:16 Orders (Tests/Meds): ED MEDICATIONS Discontinued Medications Generic Name Dose Route Start Last Admin Trade Name Freq PRN Reason Stop Dose Admin Ondansetron HCl 4 mg 03/04/22 10:19 03/04/22 10:20 Ondansetron 4mg Odt SL 03/04/22 10:20 4 mg ONCE ONE Administration Medical Decision Narrative: I myra is a 66-year-old female presenting with a chief complaint of dental bleeding. Differential diagnosis includes, but is not limited to, dental infection, abscess, injury to gums. On initial exam, she is hemodynamically stable and nontoxic-appearing. Physical exam reveals small amount of bleeding around her left upper molars. She was evaluated CBC, CMP, INR. Patient's H/H is stable. On reassessment, patient's bleeding has stopped with gauze and pressure. Patient was advised to not irritate her wound and not to try to remove the clots. She advised that she has an appointment in an hour with her dentist who will be able to evaluate for further dental pathology. Given stable H/H and termination of bleeding, patient was discharged in a stable condition. General Adult HPI - General Chief complaint: Dental/Oral Stated complaint: blood clots in mouth Time Seen by Provider: 03/04/22 10:15 Mode of Arrival: Ambulatory Limitations: No Limitations Description of Symptoms (Recalled from ER Triage Doc. by RN): TO ED PER PVT CAR WITH C/O BLEEDING I THINK FROM MY TEETH STATES DR LEE TOLD PT TO COME TO ED FOR EVAL. PT CURRENTLY T
[2022-03-04 10:25] LABS: Basophils # 0.1 K/mm3 (0-0.2); Basophils % 1.2 % (0.1-2.0); Eosinophils # 0.2 K/mm3 (0.0-0.4); Eosinophils % 2.5 % (0.1-12.0); Hematocrit 40.1 % (37.0-47.0); Hemoglobin 13.5 g/dL (12.2-16.2); Lymphocytes # 1.4 K/mm3 (0.7-4.5); Lymphocytes % 19.5 % (10-50); Mean Corpuscular HGB Conc 33.5 g/dL (31.8-35.4); Mean Corpuscular Hemoglobin 36.3 pg (27.0-31.2); Mean Corpuscular Volume 108.1 fl (81-99); Mean Platelet Volume 8.6 fl (7.4-10.4); Monocytes # 0.4 K/mm3 (0.1-1.0); Monocytes % 5.3 % (1.7-9.3); Neutrophils % 71.5 % (37.0-80.0); Platelet Count 231 K/mm3 (142-424); Red Blood Count 3.71 M/mm3 (4.20-5.40); Red Cell Distribution Width 14.9 % (11.5-17.5)
[2022-03-04 10:30] LABS: Chloride 99 mmol/L (98-107); Sodium 134 mmol/L (136-145)
[2022-03-04 10:31] LABS: Potassium 4.2 mmoL/L (3.5-5.1)
[2022-03-04 10:33] LABS: Alanine Aminotransferase 38 U/L (12-78); Alkaline Phosphatase 231 U/L (38-126); Aspartate Amino Transferase 55 U/L (14-36); Bilirubin,Total 0.6 mg/dl (0.2-1.3); Blood Urea Nitrogen 29 mg/dl (7-17); Creatinine Clearance Estimated 37 mL/min (50-200); Estimated Glomerular Filt Rate 50 ml/min (>60); GFR (African American) 61 ML/MIN (>60)
[2022-03-04 10:34] LABS: Albumin Level 3.9 g/dl (3.5-5.0); Albumin/Globulin Ratio 1.2 (1.1-1.8); Anion Gap 10.2 mEq/L (5-15); Calcium 8.6 mg/dl (8.4-10.2); Carbon Dioxide 29 mmol/L (22.0-30.0); Globulin 3.2 g/dL (1.3-3.2); Glucose 184 mg/dl (74-100); Total Protein,Serum 7.1 g/dl (6.3-8.2)
[2022-03-04 10:36] LABS: INR 1.35 (0.9-1.1); Prothrombin Time 14.9 seconds (10.1-12.5)
[2022-03-04 12:47] VITALS: BP 168/80; PULSE 90; RESP 18; TEMP 36.8; O2SAT 98
== END 2022-03-04 12:49 | disposition home or self-care (01) ==
PROVIDERS: Emergency Provider Emergency Medicine
DX: K06.8 Other specified disorders of gingiva and edentulous alveolar ridge (principal); Z79.01 Long term (current) use of anticoagulants; Z79.899 Other long term (current) drug therapy; I48.91 Unspecified atrial fibrillation; E11.9 Type 2 diabetes mellitus without complications; I10 Essential (primary) hypertension; I50.20 Unspecified systolic (congestive) heart failure; K21.9 Gastro-esophageal reflux disease without esophagitis; E78.5 Hyperlipidemia, unspecified; R58 Hemorrhage, not elsewhere classified; Z88.8 Allergy status to other drugs, medicaments and biological substances; Z95.0 Presence of cardiac pacemaker
CPT/HCPCS: 80053; 85025; 85610; 99283

== ENCOUNTER → 2022-03-07 14:27 | Outpatient (CLI) | payer MEDICARE, SELFPAY ==
--- NOTE | 2022-03-07 | CA_ITS ---
APPROVED REPORT EXAM: Comprehensive 2D, Doppler, and color-flow Echocardiogram Help Desk Associate: Swapna Nguyen, AMADOR, RVS Ht: 5 ft 4 in Wt: 211lbs BSA: 2.00 BP: 125/65 mmHg Indications: CM, AICD, AFIB, CAD, Edema, HTN, HLD, SOB, Palpitations Echo Enhancing Agent Comments: Extremely limited acoustic properties with extremely limited windows. 2D Dimensions IVSd 0.92 cm F: 0.6-1.0 LVEF (Visual) 45.00 % PWd 0.96 cm F: 0.6 - 1.0 LA Volume 112.10 mL LVDd 5.85 cm F: 3.9 - 5.3 LA Volume Index 56.05 mL/m2 (M/F) 16-34 LVDs 4.34 cm F: 2.2 - 3.5 Aortic Root 2.84 cm F: 2.7 - 3.3 Left Atrium 5.09 cm F: 2.7 - 3.8 LVOT 1.65 cm (M/F) 1.5-2.5 M-Mode Dimensions LA Diam 4.58 cm (1.9-4.0) Ao Diam 3.13 cm (2.0-3.7) EPSs 0.89 cm TAPSE 1.35 (<1.7) LV Diastology E Decel Time 150.00 (160-240 msec) MED E' 4.10 (< 7 cm/sec) MED A' 5.70 cm/s E'/MED E' Ratio 26.83 (>14) LAT E' 8.40 (<10 cm/sec) LAT A' 5.20 cm/s E/LAT E' Ratio 13.10 (>14) Aortic Valve LVOT Max 82.00 (70-110 cm/s) LVOT VTI 16.23 cm AoV Peak Sourav. 109.00 (50-130 cm/s) AO Peak GR. 4.70 mmHg AO Mean GR. 2.40 (<5 mmHg) AO VTI 21.08 (18-25 cm) BRITANY (VTI) 1.65 (2.5-4.5 cm2) Mitral Valve MV E Max Sourav. 110.00 (40-130 cm/s) MV Decel. Time 150.00 (160-240 ms) MV Mean Gr. 4.00 (<2mmHg) MV PHT 44.00 ms Pulmonary Valve UT End VMAX 83.00 cm/s Tricuspid Valve TR P. Velocity 300.00 cm/s RAP Estimate 10.00 mmHg RVSP 46.10 mmHg Left Ventricle Technically extremely difficult and poor study, endocardial surfaces are very poorly visualized. Left atrium is moderately enlarged, left ventricle is mildly dilated, estimated ejection fraction is probably 40%, left ventricle is globally hypokinetic, if clinically indicated repeat study with Definity contrast is recommended. Diastolic parameters are inconclusive. Right Ventricle Right atrium and right ventricle moderately enlarged, contractility of the right ventricle appears to be normal. Aortic Valve Aortic valve is minimally thickened and fibrosed, there is no aortic stenosis or aortic insufficiency. Mitral Valve Mitral valve leaflets are minimally thickened, there is mild mitral regurgitation. Tricuspid Valve Tricuspid valve grossly normal, there is mild tricuspid regurgitation, calculated right ventricular systolic pressure is 46 mmHg. Pulmonic Valve Pulmonic valve is poorly visualized. Great Vessels Aortic root is normal size. Inferior vena cava is poorly visualized. Pericardium No significant pericardial effusion noted. Conclusion 1. Technically very difficult and poor study, repeat study with Definity contrast is recommended. Biatrial enlargement, mildly dilated left ventricle, reduced left ventricular systolic function, estimated ejection fraction 40%, left ventricle appears to be globally hypokinetic, diastolic parameters are inconclusive. 2. Moderately enlarged right ventricle with normal contractility. 3. Mild mitral and tricuspid regurgitation, calculated right ventricular systolic pressure is 46 mmHg. 4. No significant pericardial effusion. 5. Inferior vena cava is poorly visualized. Electronically signed by : Roney Wyatt MD 03/08/2022 13:11:24
== END ==
LOC: RT 14:28
PROVIDERS: PCP Family Medicine; Visit Provider Nurse Practitioner Family
DX: R06.02 Shortness of breath (principal); I42.9 Cardiomyopathy, unspecified
CPT/HCPCS: 93306

== ENCOUNTER 2022-04-24 00:27 | Emergency (ER) | payer MEDICARE, SELFPAY ==
[2022-04-24] VITALS (7 sets, daily range): BP systolic 110–129; BP diastolic 52–80; PULSE 71–81; RESP 16; TEMP 36.7–36.8; O2SAT 97–98; BMI 39.6
--- NOTE | 2022-04-24 00:40 | CT_ITS ---
PROCEDURE INFORMATION: Exam: CT Cervical Spine With Contrast Exam date and time: 04/24/2022 2:37 AM Age: 66 years old Clinical indication: Patient HX: Left sided neck pain radiates posterior TECHNIQUE: Imaging protocol: Computed tomography images of the cervical spine with intravenous contrast. Radiation optimization: All CT scans at this facility use at least one of these dose optimization techniques: automated exposure control; mA and/or kV adjustment per patient size (includes targeted exams where dose is matched to clinical indication); or iterative reconstruction. Contrast material: ISOVUE; Contrast volume: 75 ml; Contrast route: IV; COMPARISON: THY US thyroid 02/04/2019 3:35 PM FINDINGS: Bones/joints: No acute fracture. Normal alignment. Discs/Spinal canal/Neural foramina: Bulging annuli and mild dorsal/. No definite high-grade central canal stenosis within limitations of technique. No severe cervical foraminal stenosis. Lungs: Emphysematous changes at both lung apices. Soft tissues: Unremarkable. No pathologic enhancement identified. IMPRESSION: 1. No acute fractures or listhesis. 2. No evidence canal or foraminal stenosis. 3. Mild degenerative changes as described above.
--- NOTE | 2022-04-24 01:11 | HMH.EDGENADL ---
ED Disposition Clinical Impression: Torticollis Disposition: Home, Self-Care Condition on Discharge: Good Instructions: DI for Neck Pain Additional Instructions: use meds and call pcp for follow up Referrals: Rad Galvan MD [Primary Care Provider] - - Critical Care Critical Care Time: No Attestation: On 04/24/22, the high probability of a clinically significant, sudden or life threatening deterioration of the following system(s) required my full and direct attention, intervention and personal management. The time I documented below is in addition to time spent performing reported procedures but includes the following listed in this critical care notation. Medical Decision Making - Medical Records Medical records reviewed: Yes: I reviewed the patient's medical records. - Neil Inquiry Pt receiving controlled substance: No Vital Signs: 04/24/22 00:28 04/24/22 02:14 04/24/22 02:30 Temperature 98.3 F Temperature Source Oral Pulse Rate 72 73 Pulse Rate [Left Radial] 72 Respiratory Rate 16 Blood Pressure 126/71 122/52 L Blood Pressure [Right Arm] 129/80 Blood Pressure Mean 85 Blood Pressure Mean [Right Arm] 96 Blood Pressure Source [Right Arm] Automatic Cuff Blood Pressure Position [Right Arm] Sitting 02 Sat by Pulse Oximetry 98 98 98 Oxygen Delivery Method Room Air Room Air 04/24/22 02:49 04/24/22 03:00 04/24/22 03:30 Temperature Temperature Source Pulse Rate 74 72 71 Pulse Rate [Left Radial] Respiratory Rate Blood Pressure 125/52 L 112/54 L Blood Pressure [Right Arm] Blood Pressure Mean Blood Pressure Mean [Right Arm] Blood Pressure Source [Right Arm] Blood Pressure Position [Right Arm] 02 Sat by Pulse Oximetry 98 97 97 Oxygen Delivery Method Room Air Room Air Room Air - Lab Data Lab results reviewed: Yes: I reviewed the patient's lab results. Lab Results 04/24/22 01:04: WBC 10.1, RBC 3.99 L, Hgb 14.0, Hct 42.1, MCV 105.6 H, MCH 35.2 H, MCHC 33.3, RDW 15.5, Plt Count 244, MPV 9.4, Neut % (Auto) 74.3, Lymph % (Auto) 16.9, [place] % (Auto) 5.3, Eos % (Auto) 2.6, Baso % (Auto) 0.9, Neut # (Auto) 7.5, Lymph # (Auto) 1.7, [place] # (Auto) 0.5, Eos # (Auto) 0.3, Baso # (Auto) 0.1 04/24/22 01:04: ESR 43 H 04/24/22 01:50: Sodium 137, Potassium 4.7, Chloride 97 L, Carbon Dioxide 31 H, Anion Gap 13.7, BUN 33 H, Creatinine 1.30 H, Estimated Creat Clear 66, Estimated GFR 41 L, Est GFR ( Amer) 50 L, Glucose 159 H, Calcium 10.0, Total Bilirubin 0.2, AST 39 H, ALT 38, Alkaline Phosphatase 234 H, C-Reactive Protein 42.9 H, Total Protein 8.3 H, Albumin 4.5, Globulin 3.8 H, Albumin/Globulin Ratio 1.2 Result diagrams: 04/24/22 01:04 04/24/22 01:50 Orders (Tests/Meds): ED MEDICATIONS Generic Name Dose Route Start Last Admin Trade Name Freq PRN Reason Stop Dose Admin Sodium Chloride 1,000 mls @ 999 mls/hr 04/24/22 02:30 04/24/22 02:35 Sod Chlor 0.9% 1000ml Bag IV 04/24/22 03:30 999 mls/hr .Q1H1M GAIL Administration Sodium Chloride 10 ml 04/24/22 01:15 Sodium Chloride 0.9% 10ml Flush Syringe IV 05/24/22 01:14 NEEDED PRN Maintain IV Site Discontinued Medications Generic Name Dose Route Start Last Admin Trade Name Freq PRN Reason Stop Dose Admin Acetaminophen/Codeine Phosphate 1 packet 04/24/22 03:58 Acetaminophen 300mg W/Codeine 30mg Take Home Pack (6) PO 04/24/22 03:59 ONCE ONE Hydrocodone Bitart/Acetaminophen 1 tab 04/24/22 03:58 Hydrocodone/Apap 5/325 Mg Tablet PO 04/24/22 03:59 ONCE ONE Iopamidol 75 ml 04/24/22 02:51 04/24/22 02:53 Iopamidol-370 (76%);100ml Bottle IV 04/24/22 02:52 75 ml ONCE ONE Administration Ketorolac Tromethamine 30 mg 04/24/22 03:49 04/24/22 03:53 Ketorolac 30mg/Ml Vial IV 04/24/22 03:50 30 mg ONCE ONE Administration Methylprednisolone Sodium Succinate 125 mg 04/24/22 03:49 04/24/22 03:53 Methylprednisolone Sod Succ 125mg Vial
[2022-04-24 01:41] LABS: Basophils # 0.1 K/mm3 (0-0.2); Basophils % 0.9 % (0.1-2.0); Eosinophils # 0.3 K/mm3 (0.0-0.4); Eosinophils % 2.6 % (0.1-12.0); Hematocrit 42.1 % (37.0-47.0); Lymphocytes # 1.7 K/mm3 (0.7-4.5); Lymphocytes % 16.9 % (10-50); Mean Corpuscular HGB Conc 33.3 g/dL (31.8-35.4); Mean Corpuscular Hemoglobin 35.2 pg (27.0-31.2); Mean Corpuscular Volume 105.6 fl (81-99); Mean Platelet Volume 9.4 fl (7.4-10.4); Monocytes # 0.5 K/mm3 (0.1-1.0); Monocytes % 5.3 % (1.7-9.3); Neutrophils # 7.5 K/mm3 (1.8-7.8); Neutrophils % 74.3 % (37.0-80.0); Platelet Count 244 K/mm3 (142-424); Red Blood Count 3.99 M/mm3 (4.20-5.40); Red Cell Distribution Width 15.5 % (11.5-17.5); White Blood Count 10.1 K/mm3 (4.8-10.8)
[2022-04-24 02:06] LABS: Erythrocyte Sedimentation Rate 43 mm/hr (0-30)
[2022-04-24 02:14] LABS: Alanine Aminotransferase 38 U/L (12-78); Albumin Level 4.5 g/dl (3.5-5.0); Albumin/Globulin Ratio 1.2 (1.1-1.8); Alkaline Phosphatase 234 U/L (38-126); Anion Gap 13.7 mEq/L (5-15); Aspartate Amino Transferase 39 U/L (14-36); Bilirubin,Total 0.2 mg/dl (0.2-1.3); Blood Urea Nitrogen 33 mg/dl (7-17); Carbon Dioxide 31 mmol/L (22.0-30.0); Chloride 97 mmol/L (98-107); Creatinine Clearance Estimated 66 mL/min (50-200); Estimated Glomerular Filt Rate 41 ml/min (>60); GFR (African American) 50 ML/MIN (>60); Globulin 3.8 g/dL (1.3-3.2); Glucose 159 mg/dl (74-100); Potassium 4.7 mmoL/L (3.5-5.1); Sodium 137 mmol/L (136-145); Total Protein,Serum 8.3 g/dl (6.3-8.2)
[2022-04-24 02:19] LABS: C-Reactive Protein 42.9 mg/L (0-4)
--- NOTE | 2022-04-24 03:06 | PC.NURSE ---
PT UPDATED. NO CHANGE IN ASSMNT. WCM.
== END 2022-04-24 04:14 | disposition home or self-care (01) ==
PROVIDERS: Emergency Provider Emergency Medicine; PCP Family Medicine
DX: M43.6 Torticollis (principal); I48.0 Paroxysmal atrial fibrillation; I50.30 Unspecified diastolic (congestive) heart failure; I25.10 Atherosclerotic heart disease of native coronary artery without angina pectoris; E11.9 Type 2 diabetes mellitus without complications; I10 Essential (primary) hypertension; K21.9 Gastro-esophageal reflux disease without esophagitis
CPT/HCPCS: 72126; 80053; 85025; 85651; 86140; 96365; 96375; 99284; Q9967

== ENCOUNTER → 2022-09-26 15:04 | Outpatient (CLI) | payer MEDICARE, SELFPAY ==
[2022-09-26 15:43] LABS: Basophils # 0.1 K/mm3 (0-0.2); Basophils % 0.6 % (0.1-2.0); Eosinophils # 0.2 K/mm3 (0.0-0.4); Eosinophils % 2.2 % (0.1-12.0); Hematocrit 39.6 % (37.0-47.0); Hemoglobin 12.6 g/dL (12.2-16.2); Lymphocytes # 2.5 K/mm3 (0.7-4.5); Lymphocytes % 24.7 % (10-50); Mean Corpuscular HGB Conc 31.9 g/dL (31.8-35.4); Mean Corpuscular Hemoglobin 35.1 pg (27.0-31.2); Mean Corpuscular Volume 109.9 fl (81-99); Mean Platelet Volume 8.1 fl (7.4-10.4); Monocytes # 0.6 K/mm3 (0.1-1.0); Neutrophils # 6.8 K/mm3 (1.8-7.8); Neutrophils % 66.6 % (37.0-80.0); Platelet Count 294 K/mm3 (142-424); Red Cell Distribution Width 15.3 % (11.5-17.5); White Blood Count 10.2 K/mm3 (4.8-10.8)
[2022-09-26 16:09] LABS: Chloride 94 mmol/L (98-107); Potassium 4.4 mmoL/L (3.5-5.1); Sodium 136 mmol/L (136-145)
[2022-09-26 16:11] LABS: Blood Urea Nitrogen 42 mg/dl (7-17); Estimated Glomerular Filt Rate 30 ml/min (>60); GFR (African American) 36 ML/MIN (>60)
[2022-09-26 16:12] LABS: Alanine Aminotransferase 26 U/L (12-78); Alkaline Phosphatase 208 U/L (38-126); Anion Gap 14.4 mEq/L (5-15); Aspartate Amino Transferase 38 U/L (14-36); Bilirubin,Direct 0.2 mg/dl (0.0-0.4); Bilirubin,Indirect 0.2 mg/dL (0.0-0.9); Bilirubin,Total 0.4 mg/dl (0.2-1.3); Bilirubin,Unconjugated 0.2 mg/dL (0.0-1.1); Calcium 9.3 mg/dl (8.4-10.2); Carbon Dioxide 32 mmol/L (22.0-30.0); Cholesterol 106 mg/dl (140-200); Glucose 125 mg/dl (74-100); Total Protein,Serum 6.8 g/dl (6.3-8.2); Triglycerides 227 mg/dl (30-150); VLDL Cholesterol 45 mg/dL (0-40)
[2022-09-26 16:13] LABS: Chol/HDL Ratio 3.2 (1-3.5); HDL Cholesterol 33 mg/dl (40-60)
[2022-09-26 16:24] LABS: Direct LDL Cholesterol 35.38 mg/dL (100-129)
[2022-09-26 18:45] LABS: Thyroid Stimulating Hormone 0.07 uIU/mL (0.465-4.68)
[2022-09-26 19:55] LABS: Free T4 (Free Thyroxine) 1.16 ng/dl (0.78-2.19)
== END ==
PROVIDERS: PCP Family Medicine; Visit Provider Physician Assistant
DX: I25.118 Atherosclerotic heart disease of native coronary artery with other forms of angina pectoris; I42.0 Dilated cardiomyopathy; I42.8 Other cardiomyopathies; I48.11 Longstanding persistent atrial fibrillation; I50.42 Chronic combined systolic (congestive) and diastolic (congestive) heart failure; N28.9 Disorder of kidney and ureter, unspecified
CPT/HCPCS: 36415; 80048; 80061; 80076; 83735; 84439; 84443; 85025

== ENCOUNTER 2022-10-01 09:33 | Day surgery (SDC) | payer MEDICARE, SELFPAY ==
[2022-10-01] VITALS (10 sets, daily range): BP systolic 90–124; BP diastolic 48–76; PULSE 53–78; RESP 15–19; TEMP 36.6–36.9; O2SAT 94–98; BMI 34.1
--- NOTE | 2022-10-01 07:11 | IR_ITS ---
APPROVED REPORT Patient Location: Outpatient Global Human Resources Director: BREANNA Jackson RT (R) PROCEDURES 1. Pocket formation for placement of permanent cardiac contractility modulation system. 2. Placement of two right ventricular sensing pacing leads into the right ventricular septum. 3. Insertion of permanent cardiac contractility modulation system. INDICATION Acute on chronic congestive heart failure. Informed consent was obtained prior to the procedure. COMPLICATIONS None Estimated Blood Loss: Less than 10 ML TECHNIQUE 1% Lidocaine with epinephrine used to anesthetized the right anterior aspect of the chest. Scalpel was used to make the initial cutaneous incision while electrocautery was used to dissect down into the fascia. The fascia was lifted off the pectoralis muscle and digitally manipulated creating a pocket for the Impulse device.The subclavian vein was accessed twice via the Selinger technique, there are two wires in the vein. A 6 [place] sheath was placed under fluoroscopic guidance into the subclavian vein over one of the wires while keeping the other wire in place within the subclavian vein. The dilator was removed from the sheath. Using fluoroscopic guidance, the ventricular lead was placed into the right ventricular septum, screwed and secured into place. A second 6 [place] sheath was placed under fluoroscopic guidance into the subclavian vein over the wire.The dilator was removed from the sheath. Using fluoroscopic guidance, the second ventricular lead was placed into the right ventricular septum, screwed and secured into place. Electronic interrogation proved acceptable thresholds and voltage within the lead. Antibiotics were used to flush the pocket and the Impulse was secured using 3-0 silk into the newly revised pocket. Monocryl was used to close the subcutaneous tissue and then nicki were placed on the cutaneous area in order to approximate the incision. Patient was transferred to the postop holding area in stable condition. INTERROGATION Generator Model number: Y-Klubitmizer Smart Mini [facility] 13-230-008 Generator Serial number: [id number] Right Ventricular lead model number: Ingevity + IS-1 Bi Positive Fix RA/RV 7841 Right Ventricular lead serial number: [id number] Right Ventricular lead model number: Ingevity + IS-1 Bi Positive Fix RA/RV 7841 Right Ventricular lead serial number: [id number] IMPRESSION 1. Pocket Revision 2. Successful placement of two right ventricular sensing pacing leads into the right ventricular septum. 3. Successful insertion of permanent cardiac contractility modulation system. PLAN 1. Post Op Wound Care. Electronically signed by : Abhijit Armstrong MD 10/14/2022 11:41:12
--- NOTE | 2022-10-01 11:02 | EXP.ANES.CKL ---
PFSH PFS Medical History Anxiety Cardiac defibrillator in situ HLD (hyperlipidemia) SOB (shortness of breath) on exertion Tachycardia Social History Smoking Status: Never smoker alcohol intake: never counseling provided: none substance use type: denies use current occupational status: disabled Travel in the last 8 weeks: Inside the [place] household members: family housing: house current occupational exposures/hazards: No caffeine: No H Anesthesia Checklist Patient Identification Patient Identification: Arm Band Structural Data Admitted From: Home Planned Operative Procedure/s: CCM Device Placement Consent for Planned Operative Procedure(s) Verified: Yes Verified Documents: Surgical Consent and History and Physical NPO Status Verified Time NPO: 00:00 Additional verifications Anesthesia Reactions: No Airway Assessment C-Spine Mobility Assessed: Yes Dentition: Good Dentition Neurological Assessment Level of Consciousness: Awake and Alert Anesthesia Plan Anesthesia Risk discussed: Yes Anesthesia Plan: Verified ASA Class: III Anesthesia Type: MAC
--- NOTE | 2022-10-01 13:23 | XR_ITS ---
FINAL REPORT CLINICAL HISTORY: post device implant COMPARISON: February 14, 2021 FINDINGS: The heart is mildly enlarged. There are bilateral subclavian pacemaker is. Pacemaker on the right is new since the prior exam. There are overlying skin nicki. The mediastinum is within normal limits. There is no acute cardiopulmonary process. There is no pleural effusion. There is no pneumothorax. The bony thorax is intact. IMPRESSION: No acute cardiopulmonary process. Reviewed, Interpreted and Dictated by J Carlos Foote MD Transcribed by Cipriano Razo Authenticated and [facility]
== END 2022-10-01 15:37 | disposition home or self-care (01) ==
PROVIDERS: PCP Family Medicine; Visit Provider Internal Medicine
DX: I50.42 Chronic combined systolic (congestive) and diastolic (congestive) heart failure (principal); I48.11 Longstanding persistent atrial fibrillation; Z79.899 Other long term (current) drug therapy; I42.9 Cardiomyopathy, unspecified; I25.118 Atherosclerotic heart disease of native coronary artery with other forms of angina pectoris; I11.0 Hypertensive heart disease with heart failure; Z79.01 Long term (current) use of anticoagulants; Z79.4 Long term (current) use of insulin; I27.20 Pulmonary hypertension, unspecified; Z95.810 Presence of automatic (implantable) cardiac defibrillator
CPT/HCPCS: 71045; 0408T; C1824; C1898

== ENCOUNTER → 2022-11-25 11:07 | Outpatient (CLI) | payer MEDICARE, SELFPAY ==
[2022-11-25 13:28] LABS: Chloride 100 mmol/L (98-107); Sodium 139 mmol/L (136-145)
[2022-11-25 13:29] LABS: Potassium 4.1 mmoL/L (3.5-5.1)
[2022-11-25 13:31] LABS: Blood Urea Nitrogen 35 mg/dl (7-17); Estimated Glomerular Filt Rate 38 ml/min (>60); GFR (African American) 46 ML/MIN (>60)
[2022-11-25 13:32] LABS: Anion Gap 12.1 mEq/L (5-15); Calcium 8.9 mg/dl (8.4-10.2); Carbon Dioxide 31 mmol/L (22.0-30.0); Glucose 104 mg/dl (74-100)
== END ==
PROVIDERS: PCP Family Medicine; Visit Provider Physician Assistant
DX: R06.02 Shortness of breath; I25.118 Atherosclerotic heart disease of native coronary artery with other forms of angina pectoris; I42.0 Dilated cardiomyopathy; I42.8 Other cardiomyopathies; I48.11 Longstanding persistent atrial fibrillation; I11.0 Hypertensive heart disease with heart failure; I50.42 Chronic combined systolic (congestive) and diastolic (congestive) heart failure; E78.2 Mixed hyperlipidemia; N17.9 Acute kidney failure, unspecified; N28.9 Disorder of kidney and ureter, unspecified; Z95.810 Presence of automatic (implantable) cardiac defibrillator
CPT/HCPCS: 36415; 80048

== ENCOUNTER → 2023-02-18 07:35 | Outpatient (CLI) | payer MEDICARE, SELFPAY ==
--- NOTE | 2023-02-18 07:44 | MM_ITS ---
PROCEDURE INFORMATION: Exam: MG Bilateral Screening 3D Mammography Exam date and time: 02/18/2023 7:55 AM Age: 67 years old Clinical indication: Screening examination TECHNIQUE: Imaging protocol: Bilateral Screening tomosynthesis and 2D mammography including computer-aided detection (CAD) when performed. COMPARISON: 1. MG MM DIG SCREENING MAMM BI W/CAD 12/22/2019 9:34 AM 2. MG SCBI MM Dig screening mamm BI w/CAD 09/24/2018 4:56 PM 3. MG DMSB DIG MAMM-SCREEN SAIRA 10/25/2016 4:22 PM 4. MG DMSB DIGITAL MAMM-SCREEN BILATERAL 03/20/2012 1:26 PM FINDINGS: MAMMOGRAPHY: Breast composition: The breasts are almost entirely fatty. Mass: No suspicious mass. Architectural distortion: None. Calcifications: No suspicious calcifications. Asymmetric density: None. Skin thickening: None. Axillary adenopathy: None. Other: Pacemaker in the both axilla, limits evaluation and accentuates the importance of clinical breast exam. IMPRESSION: No mammographic evidence of malignancy. Annual screening is recommended unless otherwise clinically indicated. ASSESSMENT: BI-RADS Category 1: Negative
--- NOTE | 2023-02-18 08:42 | XR_ITS ---
FINAL REPORT TECHNIQUE: Bone densitometry calculations of the lumbar spine and bilateral hips were obtained. CLINICAL HISTORY: . post menopausal screening FINDINGS: DEXA BONE DENSITY AXIAL SKELETON Using L1-4, the bone mineral density of the spine is 1.288 g/cm2, corresponding to T-score of 2.2 with a Z-score of 4.0. Using the left hip, the bone mineral density of the femoral neck is 0.758 g/cm2, corresponding to a T-score of -0.8 with a Z-score of 0.7. Using the right hip, the bone mineral density of the femoral neck is 0.752 g/cm2, corresponding to a T-score of -0.9 with a Z-score of 0.7. NOTE: T-score: Standard deviation compared with peak bone mass of young adult mean. *Following the recommendations of the International Society of Bone densitometry, classification of hip BMD is based on the lower of two T-scores; total hip or femoral neck. IMPRESSION: Normal bone mineral density of the lumbar spine and hips. FRAX not reported because: All T-scores for spine total, hip total and femoral neck at or above -1.0 Reviewed, Interpreted and Dictated by Neetu Waite MD Transcribed by Angelina Garcia Authenticated and [facility]
== END ==
PROVIDERS: PCP Family Medicine; Visit Provider Family Medicine
DX: Z12.31 Encounter for screening mammogram for malignant neoplasm of breast (principal); Z78.0 Asymptomatic menopausal state
CPT/HCPCS: 77063; 77067; 77080

== ENCOUNTER → 2023-03-25 11:03 | Outpatient (CLI) | payer MEDICARE, SELFPAY ==
[2023-03-25 12:31] LABS: Basophils # 0.1 K/mm3 (0-0.2); Basophils % 0.5 % (0.1-2.0); Eosinophils # 0.3 K/mm3 (0.0-0.4); Eosinophils % 2.8 % (0.1-12.0); Hematocrit 39.6 % (37.0-47.0); Hemoglobin 12.9 g/dL (12.2-16.2); Lymphocytes # 2.3 K/mm3 (0.7-4.5); Lymphocytes % 22.6 % (10-50); Mean Corpuscular HGB Conc 32.7 g/dL (31.8-35.4); Mean Corpuscular Hemoglobin 35.3 pg (27.0-31.2); Monocytes # 0.5 K/mm3 (0.1-1.0); Monocytes % 5.1 % (1.7-9.3); Neutrophils # 6.9 K/mm3 (1.8-7.8); Neutrophils % 69.1 % (37.0-80.0); Platelet Count 244 K/mm3 (142-424); Red Blood Count 3.66 M/mm3 (4.20-5.40); Red Cell Distribution Width 15.1 % (11.5-17.5)
[2023-03-25 12:41] LABS: Chloride 93 mmol/L (98-107)
[2023-03-25 12:42] LABS: Potassium 4.4 mmoL/L (3.5-5.1); Sodium 139 mmol/L (136-145)
[2023-03-25 12:44] LABS: Alanine Aminotransferase 30 U/L (12-78); Alkaline Phosphatase 149 U/L (38-126); Anion Gap 15.4 mEq/L (5-15); Aspartate Amino Transferase 34 U/L (14-36); Bilirubin,Direct 0.1 mg/dl (0.0-0.4); Bilirubin,Indirect 0.5 mg/dL (0.0-0.9); Bilirubin,Total 0.6 mg/dl (0.2-1.3); Bilirubin,Unconjugated 0.4 mg/dL (0.0-1.1); Blood Urea Nitrogen 27 mg/dl (7-17); Carbon Dioxide 35 mmol/L (22.0-30.0); Estimated Glomerular Filt Rate 41 ml/min (>60); GFR (African American) 50 ML/MIN (>60)
[2023-03-25 12:45] LABS: Albumin Level 3.9 g/dl (3.5-5.0); Chol/HDL Ratio 2.3 (1-3.5); Cholesterol 95 mg/dl (140-200); Glucose 58 mg/dl (74-100); HDL Cholesterol 42 mg/dl (40-60); Magnesium 2.1 mg/dl (1.6-2.3); Total Protein,Serum 6.8 g/dl (6.3-8.2); Triglycerides 206 mg/dl (30-150); VLDL Cholesterol 41 mg/dL (0-40)
[2023-03-25 12:56] LABS: Direct LDL Cholesterol 33.12 mg/dL (100-129)
[2023-03-25 13:01] LABS: Free T4 (Free Thyroxine) 1.16 ng/dl (0.78-2.19)
[2023-03-25 13:15] LABS: Thyroid Stimulating Hormone 0.05 uIU/mL (0.465-4.68)
[2023-03-25 14:01] LABS: Vitamin B12 916 pg/mL (239-931)
[2023-03-25 14:19] LABS: Folate > 20.00 ng/mL
== END ==
PROVIDERS: PCP Family Medicine; Visit Provider Physician Assistant
DX: R06.02 Shortness of breath; I20.8 Other forms of angina pectoris; I42.0 Dilated cardiomyopathy; I42.8 Other cardiomyopathies; I48.11 Longstanding persistent atrial fibrillation; I11.0 Hypertensive heart disease with heart failure; I50.42 Chronic combined systolic (congestive) and diastolic (congestive) heart failure; E78.2 Mixed hyperlipidemia; N17.9 Acute kidney failure, unspecified; N28.9 Disorder of kidney and ureter, unspecified; R60.0 Localized edema; D75.89 Other specified diseases of blood and blood-forming organs; Z95.810 Presence of automatic (implantable) cardiac defibrillator
CPT/HCPCS: 36415; 80048; 80061; 80076; 82607; 82746; 83735; 84439; 84443; 85025

== ENCOUNTER → 2023-04-04 08:24 | Outpatient (CLI) | payer MEDICARE, SELFPAY | LOC: RT 08:24 | PROVIDERS: PCP Family Medicine; Visit Provider Nurse Practitioner | DX: R06.02 Shortness of breath; I48.11 Longstanding persistent atrial fibrillation; I20.8 Other forms of angina pectoris; I42.0 Dilated cardiomyopathy; I42.8 Other cardiomyopathies; I11.0 Hypertensive heart disease with heart failure; I50.42 Chronic combined systolic (congestive) and diastolic (congestive) heart failure; E78.2 Mixed hyperlipidemia; N17.9 Acute kidney failure, unspecified; N28.9 Disorder of kidney and ureter, unspecified; R60.0 Localized edema; Z95.810 Presence of automatic (implantable) cardiac defibrillator | CPT/HCPCS: 93306 ==

== ENCOUNTER → 2023-04-15 12:52 | Outpatient (CLI) | payer MEDICARE, SELFPAY ==
[2023-04-15 15:50] LABS: Free T4 (Free Thyroxine) 1.03 ng/dl (0.78-2.19)
[2023-04-15 16:07] LABS: Thyroid Stimulating Hormone 1.72 uIU/mL (0.465-4.68)
== END ==
PROVIDERS: PCP Family Medicine; Visit Provider Physician Assistant
DX: I50.42 Chronic combined systolic (congestive) and diastolic (congestive) heart failure; I48.11 Longstanding persistent atrial fibrillation; R79.89 Other specified abnormal findings of blood chemistry
CPT/HCPCS: 84439; 84443; 93308; Q9957

== ENCOUNTER 2023-05-01 09:18 | Day surgery (SDC) | payer MEDICARE, SELFPAY ==
[2023-04-23 11:26] VITALS: BMI 40.6
[2023-05-01] VITALS (7 sets, daily range): BP systolic 82–155; BP diastolic 39–55; PULSE 66–79; RESP 16–94; TEMP 36.2–36.4; O2SAT 95–97
[2023-05-01 09:57] LABS: POC Glucose,Bedside 102 (70-110)
--- NOTE | 2023-05-01 10:18 | P.PN_ITS ---
[facility] Disclaimer: The information contained in this section may have been updated after the patient was seen, as this information can be updated by other users. Medical History Anxiety Cardiac defibrillator in situ HLD (hyperlipidemia) SOB (shortness of breath) on exertion Tachycardia Surgical History History of appendectomy History of automatic internal cardiac defibrillator (AICD) History of cholecystectomy History of colonoscopy History of implanted electronic device History of tonsillectomy Family History Other Family history of COPD (chronic obstructive pulmonary disease) Family history of cancer Family history of cardiac arrhythmia Family history of diabetes mellitus type II Family history of hypothyroidism Family history of myocardial infarction Social History Smoking Status: Former smoker pack-years: 0 alcohol intake: former counseling provided: none substance use type: denies use current occupational status: disabled Travel in the last 8 weeks: None household members: family housing: house lives independently: Yes marital status: single education level: high school current occupational exposures/hazards: No caffeine: No do you feel safe at home: Yes victim of physical abuse: No victim of emotional abuse: No victim of sexual abuse: No would you like helpful sources: No [facility] Anesthesia Checklist Patient Identification Patient Identification: Arm Band Structural Data Admitted From: Home Planned Operative Procedure/s: colonoscopy Consent for Planned Operative Procedure(s) Verified: Yes Verified Documents: Surgical Consent and History and Physical NPO Status Verified Time NPO: 00:00 Additional verifications Anesthesia Reactions: No Airway Assessment C-Spine Mobility Assessed: Yes TMJ Mobility Assessed: Yes Dentition: Good Dentition Neurological Assessment Level of Consciousness: Awake and Alert Anesthesia Plan Anesthesia Risk discussed: Yes Anesthesia Plan: Verified ASA Class: III Anesthesia Type: MAC
--- NOTE | 2023-05-01 10:39 | HMH.SCOPE ---
Procedure: Date: 05/01/23 Patient Date of :: 1955 Procedure Performed:: Diagnostic colonoscopy Indications:: +Cologuard Performing Provider:: Brandee Barrera MD Referring Provider:: Rad Galvan Sedation:: Propofol Procedure:: After placing the patient in the left lateral decubitus position, the colonoscopy was gently inserted into the rectum and under direct visualization advanced to the cecum which was identified by transillumination in the right lower quadrant, identification of the ileocecal valve, appendiceal orifice, and cecal strap. Color, texture, mucosa, and anatomy of the colon were carefully examined with the scope. Findings:: Anal canal: normal Rectum: normal Sigmoid colon: normal without polyps or inflammatory changes Descending colon: normal without polyps or inflammatory changes Splenic flexure: normal Transverse colon: normal without polyps or inflammatory changes Hepatic flexure: normal Ascending colon: normal without polyps or inflammatory changes Cecum: normal Terminal ileum: not visualized Impression: Normal colonoscopy Recommendations:: Follow up examination in about FIVE-TEN years or so, sooner if clinically indicated. Complications:: None Estimated blood obtained (mL): 0
== END 2023-05-01 11:29 | disposition home or self-care (01) ==
PROVIDERS: PCP Family Medicine; Visit Provider Internal Medicine Gastroenterology
PROC: 0DJD8ZZ Inspection of Lower Intestinal Tract, Via Natural or Artificial Opening Endoscopic (ICD-10-PCS; CPT 45378; principal; 2023-05-01 10:30)
DX: R19.5 Other fecal abnormalities (principal); Z79.899 Other long term (current) drug therapy; E11.9 Type 2 diabetes mellitus without complications
CPT/HCPCS: 45378; 82962

== ENCOUNTER 2023-05-21 10:08 | Day surgery (SDC) | payer MEDICARE, SELFPAY ==
[2023-05-15 13:05] VITALS: BMI 35.1
[2023-05-21] VITALS (7 sets, daily range): BP systolic 96–128; BP diastolic 46–69; PULSE 70–81; RESP 16–18; TEMP 36.1; O2SAT 96–100
[2023-05-21 11:24] LABS: POC Glucose,Bedside 147 (70-110)
--- NOTE | 2023-05-21 11:34 | P.PN_ITS ---
[facility] Disclaimer: The information contained in this section may have been updated after the patient was seen, as this information can be updated by other users. Medical History Anxiety Cardiac defibrillator in situ HLD (hyperlipidemia) SOB (shortness of breath) on exertion Tachycardia Surgical History History of appendectomy History of automatic internal cardiac defibrillator (AICD) History of cholecystectomy History of colonoscopy History of implanted electronic device History of tonsillectomy Family History Other Family history of COPD (chronic obstructive pulmonary disease) Family history of cancer Family history of cardiac arrhythmia Family history of diabetes mellitus type II Family history of hypothyroidism Family history of myocardial infarction Social History Smoking Status: Former smoker pack-years: 0 alcohol intake: former counseling provided: none substance use type: denies use current occupational status: disabled Travel in the last 8 weeks: None household members: family housing: house lives independently: Yes marital status: single education level: high school current occupational exposures/hazards: No caffeine: No do you feel safe at home: Yes victim of physical abuse: No victim of emotional abuse: No victim of sexual abuse: No would you like helpful sources: No [facility] Anesthesia Checklist Patient Identification Patient Identification: Arm Band and Verbal (Name & ) Structural Data Admitted From: Home Planned Operative Procedure/s: EGD Consent for Planned Operative Procedure(s) Verified: Yes NPO Status Verified Time NPO: 00:00 Additional verifications Anesthesia Reactions: No Airway Assessment C-Spine Mobility Assessed: Yes TMJ Mobility Assessed: Yes Dentition: Good Dentition Neurological Assessment Level of Consciousness: Awake Hx Seizures: No Numbness or tingling in extremities: No Anesthesia Plan Anesthesia Risk discussed: Yes Anesthesia Plan: Verified ASA Class: IV Anesthesia Type: MAC
--- NOTE | 2023-05-21 11:53 | HMH.SCOPE ---
Procedure: Date: 05/21/23 Patient Date of :: 1955 Procedure Performed:: EGD Indications:: The patient is a 68 year old with dysphagia symptom Performing Provider:: Les Florez MD Referring Provider:: Rad Galvan MD Sedation:: See RN records Procedure:: The gastroscope was gently passed through the incisoral orifice into the oral cavity and under direct visualization the esophagus was intubated. The endoscope was passed down the esophagus, through the stomach, and into the duodenum. Color, texture, mucosa, and anatomy of the esophagus, stomach, and duodenum were carefully examined with the scope. Findings:: Oropharynx: normal Esophagus: Small food substances adherent to mucosa. Longitudinal furrowing. Biopsies obtained. Empiric dilatation performed with 54F bougie dilator EG Junction: intact at 40 cm Cardia: normal Fundus: Gastritis Body: Retained food. Gastritis. Biopsies obtained Antrum: Gastritis. Biopsy obtained Duodenal bulb: normal Duodenum (second and third portion): normal Impression: Longitudinal furrowing of esophagus Gastritis Retained food in stomach Recommendations:: Await pathology results If dysphagia symptom does not improve after empiric esophageal dilatation, then recommend barium esophagram with tablet Consider gastric emptying study if clinically indicated Complications:: none Estimated blood obtained (mL): 0 Colonoscopy Component Colonoscopy Component Was a colonoscopy performed during today's procedure?: No
== END 2023-05-21 12:30 | disposition home or self-care (01) ==
PROVIDERS: PCP Family Medicine; Visit Provider Internal Medicine
PROC: 0DJ08ZZ Inspection of Upper Intestinal Tract, Via Natural or Artificial Opening Endoscopic (ICD-10-PCS; CPT 43235; principal; 2023-05-21 11:30)
DX: K29.50 Unspecified chronic gastritis without bleeding (principal); K22.9 Disease of esophagus, unspecified
CPT/HCPCS: 43239; 43248; 82962; 88342

== ENCOUNTER 2023-06-25 22:27 | Emergency (ER) | payer MEDICARE, SELFPAY ==
[2023-06-25 22:30] VITALS: BP 104/99; PULSE 119; RESP 20; TEMP 38; O2SAT 97; BMI 40.2
[2023-06-25 22:41] VITALS: BP 104/49; PULSE 115; RESP 18; O2SAT 97
[2023-06-25 23:01] VITALS: BP 123/54; PULSE 99; RESP 20; O2SAT 98
--- NOTE | 2023-06-25 23:03 | HMH.EDGENADL ---
Discharge Plan Disposition Patient Disposition: Home, Self-Care Condition: Good Chief Complaint: PAIN Prescriptions Prescriptions: No Action gabapentin 800 mg tablet 800 mg PO TID torsemide 20 mg tablet 20 mg PO DAILY loratadine 10 mg tablet 10 mg PO DAILY Patient Comments: TAKE ONE TABLET BY MOUTH EVERY DAY omega 6-orz-cvu-fish oil 300-1,000 mg capsule,delayed release(DR/EC) 1 cap PO BID Patient Comments: TAKE 1 CAPSULE BY MOUTH TWICE DAILY --- BUYS OTC BOTTLE TO PUT IN BASKET --- bisoprolol fumarate 10 mg tablet 10 mg PO HS Ozempic 1 mg/dose (2 mg/1.5 mL) pen injector 2 mg SQ WEEKLY spironolactone 25 mg tablet 25 mg PO DAILY Qty: 90 1RF Rx Instructions: TAKE ONE TABLET BY MOUTH EVERY DAY rivaroxaban 20 mg tablet 20 mg PO DAILY Qty: 90 1RF Hold Instructions: Resume on 05/22/23. Rx Instructions: TAKE ONE TABLET BY MOUTH EVERY DAY FOR BLOOD THINNER atorvastatin 10 MG tablet 10 mg PO DAILY tramadol 50 MG tablet 50 mg PO BIDP PRN (Reason: pain) pantoprazole 40 MG tablet,delayed release (DR/EC) 40 mg PO BID phenobarbital 32.4 MG tablet 32.4 mg PO TID multivitamin,uw-ioss-kwkclhhu 1 EACH tablet 1 tab PO DAILY magnesium oxide 250 MG tablet 250 mg PO DAILY digoxin 125 MCG tablet 125 mcg PO DAILY ropinirole 2 MG tablet 2 mg PO HS sacubitril-valsartan 1 EACH tablet 1 tab PO BID nitroglycerin 0.4 mg tablet, sublingual See Rx Instructions .ROUTE .COMPLEX Rx Instructions: PLACE 1 TABLET UNDER TONGUE EVERY 5 MINUTES IF NEEDED FOR CHEST PAIN; MAY REPEAT 2 TIMES; IF NO RELIEF AFTER 3 DOSES CALL 911 OR GO TO ER Novolin 70/30 U-100 Insulin 100 unit/mL (70-30) suspension 1 ml SQ BID Referrals Follow up/Referrals: Rad Galvan MD [Primary Care Provider] - See instructions Activity Restrictions/Add. Instructions Additional Instructions/Restrictions: At this time it was felt you are safe to be discharged home. If new or worsening symptoms please do not hesitate to return the emergency department. Please establish a strategy to continue to take all of your medications as it was prescribed on time. Please follow-up with your family doctor within 1 week for continued evaluation of your blood sugar. Tonight do not take your gabapentin or bisoprolol as it was given in the emergency department. Clinical Impressions Clinical Impression: Diabetic neuropathy Discharge ED Provider: Mehul Pulido General Adult HPI General Chief complaint: PAIN Stated complaint: SOA, toes are painful, nausea Time Seen by Provider: 06/25/23 22:48 Mode of Arrival: Wheelchair Source of Information: Patient Limitations: No Limitations Description of Symptoms (Recalled from ER Triage Doc. by RN): pt states that at about 4 pm she had started having bilateral foot pain and chills. the pt states that she has diabetic nerve pain and her toes are freezing. History of Present Illness HPI narrative: Patient is a 68-year-old female with past medical history of atrial fibrillation status post AICD placement, CHF, insulin-dependent diabetes, diabetic neuropathy who presents emergency department for evaluation of foot pain. Patient states she has had foot pain for approximately 4 years however it became worse at approximate 4 PM today. Patient has yet to take her night dose of gabapentin as she slept through her dose presents here for continued evaluation. Patient has had a sick contact with her [id number]. She denies cough, chest pain, abdominal pain, vomiting. No other acute complaints at this time. Related Data Home Medications Medication Instructions Recorded Confirmed atorvastatin 10 mg tablet 10 mg PO DAILY Cholesterol 12/03/17 05/21/23 pantoprazole 40 mg tablet,delayed 40 mg PO BID acid reflux 12/03/17 05/21/23 release tramadol 50 mg tablet 50 mg PO BIDP PRN pain 12/03/17 0
--- NOTE | 2023-06-25 23:08 | ECG_ITS ---
APPROVED REPORT Exam: Resting ECG HR:101 bpm ECG Measurements Heart Rate 101 AXES ID 83 P -66 QRSd 79 QRS 122 QT 298 T -37 QTc 356 Conclusion ELECTRONIC VENTRICULAR PACEMAKER ABNORMAL RHYTHM ECG UNCONFIRMED REPORT Electronically signed by : Rad Branch MD 06/27/2023 17:46:32
[2023-06-25 23:15] LABS: POC Glucose,Bedside 174 (70-110)
--- NOTE | 2023-06-25 23:30 | PC.NURSE ---
blanket removed due to fever, patient given a sheet and call light given to family member at bs
[2023-06-25 23:51] LABS: Influenza A, PCR Not Detected (NotDetected); Influenza B, PCR Not Detected (NotDetected)
[2023-06-25 23:52] LABS: Basophils % 0.2 % (0.1-2.0); Eosinophils # 0.1 K/mm3 (0.0-0.4); Eosinophils % 0.5 % (0.1-12.0); Hematocrit 38.9 % (37.0-47.0); Hemoglobin 12.5 g/dL (12.2-16.2); Lymphocytes # 1.2 K/mm3 (0.7-4.5); Lymphocytes % 11.6 % (10-50); Mean Corpuscular HGB Conc 32.1 g/dL (31.8-35.4); Mean Corpuscular Hemoglobin 34.1 pg (27.0-31.2); Mean Corpuscular Volume 106.2 fl (81-99); Mean Platelet Volume 8.9 fl (7.4-10.4); Monocytes # 0.5 K/mm3 (0.1-1.0); Monocytes % 4.9 % (1.7-9.3); Neutrophils # 8.7 K/mm3 (1.8-7.8); Neutrophils % 82.9 % (37.0-80.0); Platelet Count 217 K/mm3 (142-424); Red Blood Count 3.66 M/mm3 (4.20-5.40); Red Cell Distribution Width 15.1 % (11.5-17.5); White Blood Count 10.5 K/mm3 (4.8-10.8)
[2023-06-25 23:59] LABS: Alanine Aminotransferase 36 U/L (12-78); Albumin Level 4.4 g/dl (3.5-5.0); Albumin/Globulin Ratio 1.3 (1.1-1.8); Alkaline Phosphatase 198 U/L (38-126); Anion Gap 11.6 mEq/L (5-15); Aspartate Amino Transferase 32 U/L (14-36); Bilirubin,Total 0.7 mg/dl (0.2-1.3); Blood Urea Nitrogen 31 mg/dl (7-17); Calcium 9.3 mg/dl (8.4-10.2); Carbon Dioxide 33 mmol/L (22.0-30.0); Chloride 98 mmol/L (98-107); Creatinine Clearance Estimated 54 mL/min (50-200); Estimated Glomerular Filt Rate 35 ml/min (>60); GFR (African American) 42 ML/MIN (>60); Globulin 3.5 g/dL (1.3-3.2); Glucose 178 mg/dl (74-100); Potassium 4.6 mmoL/L (3.5-5.1); Sodium 138 mmol/L (136-145); Total Protein,Serum 7.9 g/dl (6.3-8.2)
[2023-06-26 00:06] VITALS: TEMP 36.8
[2023-06-26 00:26] LABS: VBG Base Excess 3.2 mmol/L (-2.4-2.3); VBG HCO3 27.2 mmol/L (23-30); VBG Oxygen Saturation 67.1 % (50-70); VBG PCO2 40.3 mmol/L (35-51); VBG PH 7.45 mmol/L (7.31-7.41); VBG PO2 33.4 mmol/L (28-40); VBG Total CO2 28.4 mmol/L (23-27)
[2023-06-26 00:33] VITALS: BP 123/54; PULSE 97; RESP 18; TEMP 36.8; O2SAT 98
[2023-06-26 00:38] LABS: Coronavirus 19, PCR Detected (NotDetected)
--- NOTE | 2023-06-26 02:50 | PC.NURSE ---
note left with day shift to call and inform pt of covid results
--- NOTE | 2023-06-26 09:31 | PC.NURSE ---
per ER MD Pulido request called pt at this time to notify her of positive covid + result.
== END 2023-06-26 00:38 | disposition home or self-care (01) ==
PROVIDERS: Emergency Provider Emergency Medicine; PCP Family Medicine
DX: U07.1 COVID-19 (principal); E11.40 Type 2 diabetes mellitus with diabetic neuropathy, unspecified; M79.671 Pain in right foot; M79.672 Pain in left foot; I48.91 Unspecified atrial fibrillation; I50.9 Heart failure, unspecified; E78.5 Hyperlipidemia, unspecified
CPT/HCPCS: 80053; 82803; 82962; 85025; 87636; 93005; 99285

== ENCOUNTER → 2023-10-21 09:54 | Outpatient (CLI) | payer MEDICARE, SELFPAY ==
[2023-10-21 10:21] LABS: Basophils % 0.5 % (0.1-2.0); Eosinophils # 0.3 K/mm3 (0.0-0.4); Eosinophils % 3.7 % (0.1-12.0); Hematocrit 40.2 % (37.0-47.0); Hemoglobin 13.1 g/dL (12.2-16.2); Lymphocytes % 24.7 % (10-50); Mean Corpuscular HGB Conc 32.6 g/dL (31.8-35.4); Mean Corpuscular Hemoglobin 36.1 pg (27.0-31.2); Mean Corpuscular Volume 110.6 fl (81-99); Mean Platelet Volume 7.9 fl (7.4-10.4); Monocytes # 0.5 K/mm3 (0.1-1.0); Monocytes % 6.1 % (1.7-9.3); Neutrophils # 5.3 K/mm3 (1.8-7.8); Platelet Count 230 K/mm3 (142-424); Red Blood Count 3.64 M/mm3 (4.20-5.40); Red Cell Distribution Width 15.3 % (11.5-17.5); White Blood Count 8.1 K/mm3 (4.8-10.8)
[2023-10-21 10:34] LABS: Hemoglobin A1C 6.8 % (4.0-6.0)
[2023-10-21 11:13] LABS: Albumin Level 4.2 g/dl (3.5-5.0); Albumin/Globulin Ratio 1.2 (1.1-1.8); Blood Urea Nitrogen 34 mg/dl (7-17); Chloride 100 mmol/L (98-107); Estimated Glomerular Filt Rate 50 ml/min (>60); GFR (African American) 60 ML/MIN (>60); Globulin 3.4 g/dL (1.3-3.2); Potassium 4.3 mmoL/L (3.5-5.1); Sodium 137 mmol/L (136-145); Total Protein,Serum 7.6 g/dl (6.3-8.2)
[2023-10-21 11:14] LABS: Alanine Aminotransferase 38 U/L (12-78); Alkaline Phosphatase 188 U/L (38-126); Anion Gap 11.3 mEq/L (5-15); Aspartate Amino Transferase 47 U/L (14-36); Bilirubin,Total 0.5 mg/dl (0.2-1.3); Carbon Dioxide 30 mmol/L (22.0-30.0); Cholesterol 98 mg/dl (140-200); HDL Cholesterol 33 mg/dl (40-60); Triglycerides 190 mg/dl (30-150); VLDL Cholesterol 38 mg/dL (0-40)
[2023-10-21 11:24] LABS: Direct LDL Cholesterol 41.52 mg/dL (100-129)
[2023-10-21 11:27] LABS: Glucose 47 mg/dl (74-100)
== END ==
PROVIDERS: PCP Family Medicine; Referring Provider Family Medicine; Visit Provider Physician Assistant
DX: E78.5 Hyperlipidemia, unspecified (principal); I25.10 Atherosclerotic heart disease of native coronary artery without angina pectoris; I42.8 Other cardiomyopathies; I48.91 Unspecified atrial fibrillation; I50.23 Acute on chronic systolic (congestive) heart failure; I50.33 Acute on chronic diastolic (congestive) heart failure; N28.9 Disorder of kidney and ureter, unspecified; R06.00 Dyspnea, unspecified; R60.0 Localized edema; E11.65 Type 2 diabetes mellitus with hyperglycemia; E11.22 Type 2 diabetes mellitus with diabetic chronic kidney disease; Z79.4 Long term (current) use of insulin
CPT/HCPCS: 36415; 80053; 80061; 80162; 83036; 85025

== ENCOUNTER 2024-02-01 19:56 | Emergency (ER) | payer MEDICARE, SELFPAY ==
--- NOTE | 2024-02-01 20:11 | XR_ITS ---
PROCEDURE INFORMATION: Exam: XR Left Ankle Exam date and time: 02/01/2024 8:11 PM Age: 68 years old Clinical indication: Pain; Ankle; Left; Additional info: Non traumatic pain TECHNIQUE: Imaging protocol: Radiologic exam of the left ankle. Views: 3 or more views. COMPARISON: CR XR ANKLE LT MIN 3V 04/06/2020 10:41 AM FINDINGS: Bones/joints: No acute fracture or malalignment. Minimal chronic posttraumatic changes of the medial and lateral ankle. Chronic medial talar dome osteochondral injury without detached or displaced fragment. Calcaneal enthesopathy. Soft tissues: Soft tissue swelling. IMPRESSION: Soft tissue swelling. No acute osseous findings.
--- NOTE | 2024-02-01 20:11 | XR_ITS ---
PROCEDURE INFORMATION: Exam: XR Left Foot Exam date and time: 02/01/2024 8:13 PM Age: 68 years old Clinical indication: Pain; Foot; Left; Additional info: Non traumatic pain TECHNIQUE: Imaging protocol: Radiologic exam of the left foot. Views: 3 or more views. COMPARISON: CR XR FOOT LT MIN 3V 04/06/2020 10:41 AM FINDINGS: Bones/joints: No acute fracture or malalignment. Hallux valgus. Chronic 2nd metatarsal cortical thickening. Calcaneal enthesopathy. Soft tissues: Soft tissue swelling about the ankle. IMPRESSION: Soft tissue swelling about the ankle. No acute findings.
[2024-02-01 20:12] VITALS: BP 115/93; PULSE 71; RESP 18; TEMP 36.8; O2SAT 99; BMI 40.4
--- NOTE | 2024-02-01 20:14 | ED_ITS ---
Discharge Plan Disposition Patient Disposition: Home, Self-Care Prescriptions Prescriptions: No Action gabapentin 800 mg tablet 800 mg PO TID loratadine 10 mg tablet 10 mg PO DAILY Patient Comments: TAKE ONE TABLET BY MOUTH EVERY DAY omega 2-ube-xlr-fish oil 300-1,000 mg capsule,delayed release(DR/EC) 1 cap PO BID Patient Comments: TAKE 1 CAPSULE BY MOUTH TWICE DAILY --- BUYS OTC BOTTLE TO PUT IN BASKET --- bisoprolol fumarate 10 mg tablet 10 mg PO HS Ozempic 1 mg/dose (2 mg/1.5 mL) pen injector 2 mg SQ WEEKLY spironolactone 25 mg tablet 25 mg PO DAILY Qty: 90 1RF Rx Instructions: TAKE ONE TABLET BY MOUTH EVERY DAY torsemide 20 mg tablet See Rx Instructions .ROUTE .COMPLEX Qty: 60 5RF Dose Instruction: TAKE ONE TABLET BY MOUTH TWICE DAILY NEEDED FOR EDEMA Rx Instructions: TAKE ONE TABLET BY MOUTH TWICE DAILY NEEDED FOR EDEMA rivaroxaban 20 mg tablet 20 mg PO DAILY Qty: 90 1RF Hold Instructions: Resume on 05/22/23. Rx Instructions: TAKE ONE TABLET BY MOUTH EVERY DAY FOR BLOOD THINNER atorvastatin 10 MG tablet 10 mg PO DAILY tramadol 50 MG tablet 50 mg PO BIDP PRN (Reason: pain) pantoprazole 40 MG tablet,delayed release (DR/EC) 40 mg PO BID phenobarbital 32.4 MG tablet 32.4 mg PO TID multivitamin,km-nrgb-vrvhdgyx 1 EACH tablet 1 tab PO DAILY magnesium oxide 250 MG tablet 250 mg PO DAILY digoxin 125 MCG tablet 125 mcg PO DAILY ropinirole 2 MG tablet 2 mg PO HS sacubitril-valsartan 1 EACH tablet 1 tab PO BID nitroglycerin 0.4 mg tablet, sublingual See Rx Instructions .ROUTE .COMPLEX Rx Instructions: PLACE 1 TABLET UNDER TONGUE EVERY 5 MINUTES IF NEEDED FOR CHEST PAIN; MAY REPEAT 2 TIMES; IF NO RELIEF AFTER 3 DOSES CALL 911 OR GO TO ER Novolin 70/30 U-100 Insulin 100 unit/mL (70-30) suspension 1 ml SQ BID Referrals Follow up/Referrals: Rojas Garcia MD [Staff Physician] - See instructions Rad Galvan MD [Primary Care Provider] - See instructions Activity Restrictions/Add. Instructions Additional Instructions/Restrictions: No evidence of an emergent medical condition identified with your foot and ankle pain tonight. Specifically no evidence of any infection arterial occlusion venous occlusion etc. I suspect majority of your pain is associated with neuropathy in the setting of your known diabetic peripheral neuropathy. I recommend you follow-up with Dr. Galvan for further escalation of pain control and/or follow-up with our pain specialist Dr. Garcia. Return with any changes in y our skin color such as increased pallor redness high fevers changes in unilateral swelling or other concerns. Clinical Impressions Clinical Impression: Acute pain of left foot, Bilateral leg edema, Acute left ankle pain, Peripheral neuropathy Discharge ED Provider: Hector Jimenez General Adult HPI General Chief complaint: PAIN Stated complaint: LT leg and ankle pian Time Seen by Provider: 02/01/24 20:04 History of Present Illness HPI narrative: Patient is a 68-year-old female presents today with left ankle and foot and toe pain which is nontraumatic. Has a history of peripheral neuropathy associated with diabetes is on gabapentin for this chronic pain. States that she started having left fourth and fifth digit pain no swelling erythema ecchymosis that is out of proportion normal. Also has left lateral ankle pain. Has chronic bilateral lower extremity edema which is at his baseline. States some of the pain she has goes from her toes up the posterior aspect to her hamstring area. No pain from her back radiating the opposite direction. No changes in motor function sensation swelling redness pallor temperature etc. Related Data Home Medications Medication Instructions Recorded Confirmed atorvastatin 10 mg tablet 10 mg PO DAILY Cholesterol 12/03/17 10/21/23 pantoprazole 40 mg tablet,delayed 40 mg PO BID acid reflux 12/03/17 10/21/23 release tramadol 50 mg tablet 50 mg PO BIDP PRN pain 12/03/17 10/21/23 loratadine 10 mg tablet 10 mg PO DAILY allergies 12/21/19 10/21/23 omega 2-qzg-asf-fish oil 300 1 cap PO BID Cholesterol 12/21/19 10/21/23 mg-1,000 mg capsule,delayed release multivitamin,di-ddss-vaqplvzp 1 tab PO DAILY Diet supplement 02/12/20 10/21/23 phenobarbital 32.4 mg tablet 32.4 mg PO TID seizures 02/12/20 10/21/23 digoxin 125 mcg (0.125 mg) tablet 125 mcg PO DAILY heart rate control 03/27/20 10/21/23 ropinirole 2 mg tablet 2 mg PO HS restless legs 03/28/20 10/21/23 magnesium oxide 250 mg PO DAILY Supplement 06/13/20 10/21/23 bisoprolol fumarate 10 mg tablet 10 mg PO HS High blood pressure 02/08/21 10/21/23 gabapentin 800 mg tablet 800 mg PO TID NERVE PAIN 02/26/21 10/21/23 sacubitril 97 mg-valsartan 103 mg 1 tab PO BID HEART MEDICATION 04/24/22 10/21/23 tablet nitroglycerin 0.4 mg sublingual See Rx Instructions .Route 10/01/22 10/21/23 tablet .COMPLEX Chest pain semaglutide 1 mg/dose (2 mg/1.5 2 mg SQ WEEKLY Diabetes 04/17/23 10/21/23 mL) subcutaneous pen injector (Ozempic) insulin human U-100 NPH-regulr 1 ml SQ BID Diabetes 04/23/23 10/21/23 70-30 mix 100 unit/mL subcutaneous susp (Novolin 70/30 U-100 Insulin) Previous Rx's Medication Instructions Recorded spironolactone 25 mg tablet 25 mg PO DAILY FLUID PILL #90 tabs 09/30/22 torsemide 20 mg tablet See Rx Instructions .Route 10/01/23 .COMPLEX #60 tabs rivaroxaban 20 mg tablet 20 mg PO DAILY Blood thinner #90 12/29/23 tabs Allergies Allergy/AdvReac Type Severity Reaction Status Date / Time metoclopramide [From REGLAN] Allergy Mild SHAKES Verified 10/21/23 08:57 [facility] Disclaimer: The information contained in this section may have been updated after the patient was seen, as this information can be updated by other users. Medical History Anxiety Cardiac defibrillator in situ HLD (hyperlipidemia) SOB (shortness of breath) on exertion Tachycardia Surgical History History of appendectomy History of automatic internal cardiac defibrillator (AICD) History of cholecystectomy History of colonoscopy History of implanted electronic device Cardiac contractility modulator implant (IMPULSE) SEP 2022 History of tonsillectomy Family History Other Family history of COPD (chronic obstructive pulmonary disease) Family history of cancer Family history of cardiac arrhythmia Family history of diabetes mellitus type II Family history of hypothyroidism Family history of myocardial infarction Social History Smoking Status: Never smoker alcohol intake: former counseling provided: none substance use type: denies use current occupational status: disabled Travel in the last 8 weeks: None household members: family housing: house lives independently: Yes marital status: single education level: high school current occupational exposures/hazards: No caffeine: No do you feel safe at home: Yes victim of physical abuse: No victim of emotional abuse: No victim of sexual abuse: No would you like helpful sources: No ROS Obtained: Yes All systems reviewed & no additional complaints except as documented Physical Exam General General appearance: alert and in no apparent distress Respiratory Respiratory exam: Present normal lung sounds bilaterally Cardiovascular Cardiovascular exam: Present regular rate and normal rhythm Extremities Exam Extremities exam: Present tenderness (Tenderness palpation with compression of the left fourth and fifth digit as well as the lateral malleolus) and other (Bilateral lower extremity edema symmetric 2+ PT and DP pulses in left lower extremity and right lower extremity good capillary refill no soft tissue erythema or ecchymosis) Neurological Exam Neurological exam: Present alert and oriented X3 Medical Decision Making Neil Inquiry Pt receiving controlled substance: No Vital Signs: 02/01/24 20:12 Temperature 98.2 F Temperature Source Oral Pulse Rate [Right Radial] 71 Respiratory Rate 18 Blood Pressure [Right Arm] 115/93 H Blood Pressure Mean [Right Arm] 100 Blood Pressure Source [Right Arm] Automatic Cuff Blood Pressure Position [Right Arm] Sitting 02 Sat by Pulse Oximetry 99 Oxygen Delivery Method Room Air Orders (Tests/Meds): ORDERS Category Date Time Status Ankle XR - Left minimum 3 Views [XR ankle LT min 3V] Exams 02/01/24 20:11 Taken Stat Foot XR left minimum 3 views [XR foot LT min 3V] Stat Exams 02/01/24 20:11 Taken Medical Decision Narrative: Patient is a 68-year-old female with left foot and ankle pain which is nontraumatic. Given the fact that she has baseline neuropathy she certainly c ould have had an injury without her knowledge given the lack of appropriate sensory function. She does have pain in with compression of the fourth and fifth digit as well as left lateral malleolus. Her swelling is at baseline this is not consistent with a DVT. She has normal pulses this is not consistent with peripheral arterial disease. I suspect the majority of this is a manifestation of her chronic diabetic neuropathic pain. Will get plain films and reassess. She did take some ibuprofen which did not improve her pain. She requested additional pain medication however she is unable to take acetaminophen per some of her previous doctors instructions for unclear reasons. Opiates are not indicated in this particular situation. No further diagnostic test will be done other than plain films and she will be advised to follow-up with her primary care doctor if they are negative. Lastly this is not consistent with infectious processes including septic joint. Reassessment 8:43 PM x-rays performed to person interpreted which show degenerative changes but no acute osseous abnormality. Reassessing the patient she is very hypersensitive to her toes anterior ankle. Symptoms gout can perform like this. She is never had a arthrocentesis in the past but has been told that she possibly has gout before. No evidence of any inflammatory condition at the moment. Foot and ankle are not warm red there is no fever etc. This is not consistent with an infectious process as stated above. Her exam is objectively normal aside from some subjective hypersensitivity. She has been given referral to Dr. Garcia and been informed to follow-up with Dr. Galvan. She will also return with any changes in her clinical condition such as redness warmth pallor fevers etc. At the moment no further indication for emergent diagnostic testing or management. Critical Care Critical Care Time Critical Care Time: No
--- NOTE | 2024-02-01 20:18 | PC.NURSE ---
patient to RAD at this time
[2024-02-01 21:02] VITALS: BP 111/53; PULSE 69; RESP 18; TEMP 36.7; O2SAT 96
== END 2024-02-01 21:04 | disposition home or self-care (01) ==
PROVIDERS: Emergency Provider Student in an Organized Health Care Education/Training Program; PCP Family Medicine
DX: M79.672 Pain in left foot (principal); M25.572 Pain in left ankle and joints of left foot; R60.9 Edema, unspecified; E11.40 Type 2 diabetes mellitus with diabetic neuropathy, unspecified; E78.5 Hyperlipidemia, unspecified; Z95.810 Presence of automatic (implantable) cardiac defibrillator
CPT/HCPCS: 73610; 73630; 99283

== ENCOUNTER 2024-04-02 09:51 | Outpatient (CLI) | payer MEDICARE, SELFPAY ==
--- NOTE | 2024-04-02 10:01 | XR_ITS ---
FINAL REPORT CLINICAL HISTORY: ankle pain COMPARISON: None FINDINGS: RIGHT ANKLE: Three views of the right ankle were obtained. There is no acute fracture or dislocation. Mild degenerative change is present. There is a posterior calcaneal spur present. There is no soft tissue abnormality. IMPRESSION: No acute bony abnormality. Mild degenerative change with a posterior calcaneal spur. Reviewed, Interpreted and Dictated by Gaudencio Monaco III, MD Transcribed by Rosemary Kelsey Authenticated and [facility]
--- NOTE | 2024-04-02 10:01 | XR_ITS ---
FINAL REPORT CLINICAL HISTORY: foot pain COMPARISON: None FINDINGS: RIGHT FOOT: Three views of the right foot were obtained. There is no acute fracture or dislocation. Mild degenerative change is present. A posterior calcaneal spur is present. There is no soft tissue abnormality. IMPRESSION: No acute bony abnormality. Mild degenerative change, including a posterior calcaneal spur. Reviewed, Interpreted and Dictated by Gaudencio Monaco III, MD Transcribed by Rosemary Kelsey Authenticated and [facility]
== END 2024-04-02 23:59 | disposition home or self-care (01) ==
LOC: RAD 09:53
PROVIDERS: PCP Family Medicine; Visit Provider Nurse Practitioner
DX: M79.671 Pain in right foot (principal); M25.571 Pain in right ankle and joints of right foot
CPT/HCPCS: 73610; 73630

== ENCOUNTER 2024-04-06 19:49 | Observation (INO) | payer MEDICARE, SELFPAY ==
[2024-04-06] VITALS (8 sets, daily range): BP systolic 90–127; BP diastolic 50–75; PULSE 69–74; RESP 18; TEMP 36.4–36.9; O2SAT 96–100; BMI 44.9; BMI 40.5
--- NOTE | 2024-04-06 19:56 | [facility].EDCP ---
Discharge Plan Disposition Patient Disposition: Admitted Condition: Fair Clinical Impressions Clinical Impression: Neuropathic pain Acute on chronic renal failure Qualifiers: Acute renal failure type: unspecified Chronic kidney disease stage: unspecified stage Qualified Code(s): N17.9 - Acute kidney failure, unspecified Discharge ED Provider: Buzz Keenan HPI <EMERITA Kay - Last Filed: 04/06/24 22:13> General Chief Complaint: PAIN Stated Complaint: Right side pain from underarm to foot Time Seen by Provider: 04/06/24 20:00 History of Present Illness HPI narrative: Patient presents for evaluation of pain along her right side from her right great toe up into her right axilla. Patient states the pain progression started with her toe for 3 to 4 days ago and is moved gradually upwards towards her right axilla. Patient reports no trauma. She does have a history of insulin-dependent type 2 diabetes mellitus and history of diabetic dyslipidemia for which she is already on gabapentin. Patient states that this is different is that her diabetic neuropathy had no pain associated with it it was she was just numb. Patient states the pain has been constant with waxing and waning intensity and at worst has been a 10 out of 10 earlier today even. She tried to see her PCP but they could not see her so she presented to the ER for evaluation. Patient denies chest pain fever chills mops his hematochezia melena nausea vomit diarrhea. Related Data Home Medications Medication Instructions Recorded Confirmed atorvastatin 10 mg tablet 10 mg PO DAILY Cholesterol 12/03/17 10/21/23 pantoprazole 40 mg tablet,delayed 40 mg PO BID acid reflux 12/03/17 10/21/23 release tramadol 50 mg tablet 50 mg PO BIDP PRN pain 12/03/17 10/21/23 loratadine 10 mg tablet 10 mg PO DAILY allergies 12/21/19 10/21/23 omega 0-rtd-ivw-fish oil 300 1 cap PO BID Cholesterol 12/21/19 10/21/23 mg-1,000 mg capsule,delayed release multivitamin,az-xsbp-ronwlygb 1 tab PO DAILY Diet supplement 02/12/20 10/21/23 phenobarbital 32.4 mg tablet 32.4 mg PO TID seizures 02/12/20 10/21/23 digoxin 125 mcg (0.125 mg) tablet 125 mcg PO DAILY heart rate control 03/27/20 10/21/23 ropinirole 2 mg tablet 2 mg PO HS restless legs 03/28/20 10/21/23 magnesium oxide 250 mg PO DAILY Supplement 06/13/20 10/21/23 bisoprolol fumarate 10 mg tablet 10 mg PO HS High blood pressure 02/08/21 10/21/23 gabapentin 800 mg tablet 800 mg PO TID NERVE PAIN 02/26/21 10/21/23 sacubitril 97 mg-valsartan 103 mg 1 tab PO BID HEART MEDICATION 04/24/22 10/21/23 tablet nitroglycerin 0.4 mg sublingual See Rx Instructions .Route 10/01/22 10/21/23 tablet .COMPLEX Chest pain semaglutide 1 mg/dose (2 mg/1.5 2 mg SQ WEEKLY Diabetes 04/17/23 10/21/23 mL) subcutaneous pen injector (Ozempic) insulin human U-100 NPH-regulr 1 ml SQ BID Diabetes 04/23/23 10/21/23 70-30 mix 100 unit/mL subcutaneous susp (Novolin 70/30 U-100 Insulin) Previous Rx's Medication Instructions Recorded spironolactone 25 mg tablet 25 mg PO DAILY FLUID PILL #90 tabs 09/30/22 torsemide 20 mg tablet See Rx Instructions .Route 10/01/23 .COMPLEX #60 tabs rivaroxaban 20 mg tablet 20 mg PO DAILY Blood thinner #90 12/29/23 tabs Allergies Allergy/AdvReac Type Severity Reaction Status Date / Time metoclopramide [From REGLAN] Allergy Mild SHAKES Verified 10/21/23 08:57 [facility] <EMERITA Kay - Last Filed: 04/06/24 22:13> [facility] Disclaimer: The information contained in this section may have been updated after the patient was seen, as this information can be updated by other users. Medical History Anxiety Cardiac defibrillator in situ HLD (hyperlipidemia) SOB (shortness of breath) on exertion Tachycardia Surgical History History of appendectomy History of automatic internal cardiac defibrillator (AICD) History of cholecystectomy History of colonoscopy History of implanted electronic device Cardiac contractility modulator implant (IMPULSE) SEP 2022 History of tonsillectomy Family History Other Family history of COPD (chronic obstructive pulmonary disease) Family history of cancer Family history of cardiac arrhythmia Family history of diabetes mellitus type II Family history of hypothyroidism Family history of myocardial infarction Social History Smoking Status: Never smoker alcohol intake: former counseling provided: none substance use type: denies use current occupational status: disabled Travel in the last 8 weeks: None household members: family housing: house lives independently: Yes marital status: single education level: high school current occupational exposures/hazards: No caffeine: No do you feel safe at home: Yes victim of physical abuse: No victim of emotional abuse: No victim of sexual abuse: No would you like helpful sources: No <EMERITA Kay - Last Filed: 04/06/24 22:13> ROS Obtained: Yes Systems reviewed as appropriate & no additional complaints except as documented Physical Exam <EMERITA Kay - Last Filed: 04/06/24 22:13> General General appearance: alert and in no apparent distress Chest Chest inspection: Present tenderness (Tenderness to palpation along the left axilla without any evidence of skin change) Respiratory Respiratory exam: Present normal lung sounds bilaterally Cardiovascular Cardiovascular exam: Present regular rate and normal rhythm Extremities Exam Extremities exam: Present normal inspection, full ROM and tenderness (Patient has tenderness to palpation of her right lower extremity without any evidence of edema erythema ecchymosis or bony deformity noted.) Back Exam Back exam: Present normal inspection and full ROM; Absent tenderness (Patient has no tenderness to palpation of the dorsal spine. She is tender slightly to palpation in the right axilla but again no deformities skin changes noted.), paraspinal tenderness or vertebral tenderness Neurological Exam Neurological exam: Present alert, oriented X3, CN II-XII intact, normal gait and reflexes normal; Absent motor sensory deficit Psychiatric Psychiatric exam: Present normal affect and normal mood Skin Skin exam: Present warm, dry and normal color HEART Score <EMERITA Kay Last Filed: 04/06/24 22:13> HEART Score HEART Score assessment performed?: No Critical Care <EMERITA Kay Last Filed: 04/06/24 22:13> Critical Care Time Critical Care Time: No Medical Decision Making <EMERITA Kay - Last Filed: 04/06/24 22:13> Medical Records Medical records reviewed: Yes I reviewed the patient's medical records. Neil Inquiry Pt receiving controlled substance: No Vital Signs Vital Signs: 04/06/24 19:50 04/06/24 19:56 04/06/24 20:01 Temperature 98.4 F Temperature Source Oral Pulse Rate 74 71 Pulse Rate [Left] 72 Respiratory Rate 18 Blood Pressure 125/61 123/75 Blood Pressure [Right Arm] 125/61 Blood Pressure Mean 81 87 Blood Pressure Mean [Right Arm] 82 02 Sat by Pulse Oximetry 99 100 100 Oxygen Delivery Method Room Air 04/06/24 20:32 04/06/24 21:01 04/06/24 21:31 Temperature Temperature Source Pulse Rate 71 69 71 Pulse Rate [Left] Respiratory Rate Blood Pressure 90/53 L 97/50 L 117/52 L Blood Pressure [Right Arm] Blood Pressure Mean 65 65 73 Blood Pressure Mean [Right Arm] 02 Sat by Pulse Oximetry 97 99 99 Oxygen Delivery Method Lab Data Lab results reviewed: Yes I reviewed the patient's lab results. Labs: Lab Results 04/06/24 20:35: WBC 9.0, RBC 3.50 L, Hgb 12.5, Hct 39.4, MCV 112.5 H, MCH 35.9 H, MCHC 31.9, RDW 15.5, Plt Count 191, MPV 8.1, Neut % (Auto) 68.5, Lymph % (Auto) 21.2, [place] % (Auto) 4.9, Eos % (Auto) 4.5, Baso % (Auto) 0.8, Neut # (Auto) 6.2, Lymph # (Auto) 1.9, [place] # (Auto) 0.4, Eos # (Auto) 0.4, Baso # (Auto) 0.1, ESR 103 H, Sodium 131 L, Potassium 4.9, Chloride 94 L, Carbon Dioxide 29, Anion Gap 12.9, BUN 54 H, Creatinine 2.00 H, Estimated Creat Clear 20, Estimated GFR 25 L, Est GFR ( Amer) 30 L, Glucose 148 H, Calcium 9.2, Magnesium 2.0, Total Bilirubin 0.6, AST 45 H, ALT 34, Alkaline Phosphatase 237 H, Total Creatine Kinase 47, C-Reactive Protein 22.0 H, Total Protein 7.7, Albumin 4.0, Globulin 3.7 H, Albumin/Globulin Ratio 1.1, TSH 1.64 04/06/24 20:35 04/06/24 20:35 Response Orders (Tests/Meds): ED MEDICATIONS Discontinued Medications Generic Name Dose Route Start Last Admin Trade Name Heriq PRN Reason Stop Dose Admin Acetaminophen 1,000 mg 04/06/24 20:18 04/06/24 20:35 Acetaminophen 1,000mg/100ml Vial IV 04/06/24 20:19 1,000 mg ONCE ONE Administration Dexamethasone Sodium Phosphate 10 mg 04/06/24 20:18 04/06/24 20:36 Dexamethasone 4mg/Ml 5ml Mdv IV 04/06/24 20:19 10 mg ONCE ONE Administration Lactated Ringer's 1,000 mls @ 999 mls/hr 04/06/24 20:18 04/06/24 20:36 Lactated Ringer's 1000 Ml Bag IV 04/06/24 21:18 999 mls/hr .Q1H1M ONE Administration Ketorolac Tromethamine 15 mg 04/06/24 20:18 04/06/24 20:35 Ketorolac 30mg/Ml Vial IV 04/06/24 20:19 15 mg ONCE ONE Administration Oxycodone HCl 5 mg 04/06/24 22:07 04/06/24 22:12 Oxycodone 5mg Immediate Release Tablet PO 04/06/24 22:08 5 mg ONCE ONE Administration ORDERS Category Date Time Status US transvaginal Stat Exams 04/06/24 22:10 Ordered CBC w/Auto Diff [Complete Blood Count Auto Diff] Stat Lab 04/06/24 20:35 Completed CK [Creatine Kinase] Stat Lab 04/06/24 20:35 Completed CK [Creatine Kinase] Stat Lab 04/06/24 20:35 Received CMP [Comprehensive Metabolic Panel] Stat Lab 04/06/24 20:35 Completed CRP [C-Reactive Protein] Stat Lab 04/06/24 20:35 Completed ESR [Erythrocyte Sedimentation Rate] Stat Lab 04/06/24 20:35 Completed Magnesium Stat Lab 04/06/24 20:35 Completed TSH [Thyroid Stimulating Hormone] Stat Lab 04/06/24 20:35 Completed UA [Urinalysis and Microscopic] Stat Lab 04/06/24 22:03 Received MDM Narrative Medical Decision Narrative: In summary patient is a 68-year-old female who presents to the emergency department for evaluation of right-sided painful paresthesia. Patient is hemodynamically stable upon arrival, afebrile. Physical exam is remarkable for tenderness to palpation in the right axilla down the right axillary side to the right hip crossing over the thigh medially and continue on down to the right hallux. However patient is tender to palpation over the entire surface of her skin and not just along the dermatome. Patient has no motor or sensory deficits and neurovascular intact otherwise distally.. Differential diagnosis includes paresthesia, multilevel disc degeneration versus diabetic neuropathy versus hyperglycemia etc. Initial workup will be conducted with hematologic labs. Initial interventions include Toradol Tylenol Decadron Robaxin. Initial workup reviewed by me shows normal white count and a normal sed rate with an elevated CRP but the remainder of her laboratory investigations are nonactionable with the exception of BUN/creatinine and GFR are significantly altered from her baseline.. Upon repeat evaluation patient reports 0 reduction in her pain with the interventions offered so far.. Given this I had an interactive discussion with hospital medicine regarding patient management and they agreed to admit for further evaluation and care. <Buzz Keenan MD - Last Filed: 04/06/24 22:24> Vital Signs Vital Signs: 04/06/24 19:50 04/06/24 19:56 04/06/24 20:01 Temperature 98.4 F Temperature Source Oral Pulse Rate 74 71 Pulse Rate [Left] 72 Respiratory Rate 18 Blood Pressure 125/61 123/75 Blood Pressure [Right Arm] 125/61 Blood Pressure Mean 81 87 Blood Pressure Mean [Right Arm] 82 02 Sat by Pulse Oximetry 99 100 100 Oxygen Delivery Method Room Air 04/06/24 20:32 04/06/24 21:01 04/06/24 21:31 Temperature Temperature Source Pulse Rate 71 69 71 Pulse Rate [Left] Respiratory Rate Blood Pressure 90/53 L 97/50 L 117/52 L Blood Pressure [Right Arm] Blood Pressure Mean 65 65 73 Blood Pressure Mean [Right Arm] 02 Sat by Pulse Oximetry 97 99 99 Oxygen Delivery Method Lab Data Labs: Lab Results 04/06/24 20:35: WBC 9.0, RBC 3.50 L, Hgb 12.5, Hct 39.4, MCV 112.5 H, MCH 35.9 H, MCHC 31.9, RDW 15.5, Plt Count 191, MPV 8.1, Neut % (Auto) 68.5, Lymph % (Auto) 21.2, [place] % (Auto) 4.9, Eos % (Auto) 4.5, Baso % (Auto) 0.8, Neut # (Auto) 6.2, Lymph # (Auto) 1.9, [place] # (Auto) 0.4, Eos # (Auto) 0.4, Baso # (Auto) 0.1, ESR 103 H, Sodium 131 L, Potassium 4.9, Chloride 94 L, Carbon Dioxide 29, Anion Gap 12.9, BUN 54 H, Creatinine 2.00 H, Estimated Creat Clear 20, Estimated GFR 25 L, Est GFR ( Amer) 30 L, Glucose 148 H, Calcium 9.2, Magnesium 2.0, Total Bilirubin 0.6, AST 45 H, ALT 34, Alkaline Phosphatase 237 H, Total Creatine Kinase 47, C-Reactive Protein 22.0 H, Total Protein 7.7, Albumin 4.0, Globulin 3.7 H, Albumin/Globulin Ratio 1.1, TSH 1.64 Response Orders (Tests/Meds): ED MEDICATIONS Discontinued Medications Generic Name Dose Route Start Last Admin Trade Name Freq PRN Reason Stop Dose Admin Acetaminophen 1,000 mg 04/06/24 20:18 04/06/24 20:35 Acetaminophen 1,000mg/100ml Vial IV 04/06/24 20:19 1,000 mg ONCE ONE Administration Dexamethasone Sodium Phosphate 10 mg 04/06/24 20:18 04/06/24 20:36 Dexamethasone 4mg/Ml 5ml Mdv IV 04/06/24 20:19 10 mg ONCE ONE Administration Lactated Ringer's 1,000 mls @ 999 mls/hr 04/06/24 20:18 04/06/24 20:36 Lactated Ringer's 1000 Ml Bag IV 04/06/24 21:18 999 mls/hr .Q1H1M ONE Administration Ketorolac Tromethamine 15 mg 04/06/24 20:18 04/06/24 20:35 Ketorolac 30mg/Ml Vial IV 04/06/24 20:19 15 mg ONCE ONE Administration Oxycodone HCl 5 mg 04/06/24 22:07 04/06/24 22:12 Oxycodone 5mg Immediate Release Tablet PO 04/06/24 22:08 5 mg ONCE ONE Administration ORDERS Category Date Time Status US transvaginal Stat Exams 04/06/24 22:10 Ordered CBC w/Auto Diff [Complete Blood Count Auto Diff] Stat Lab 04/06/24 20:35 Completed CK [Creatine Kinase] Stat Lab 04/06/24 20:35 Completed CK [Creatine Kinase] Stat Lab 04/06/24 20:35 Received CMP [Comprehensive Metabolic Panel] Stat Lab 04/06/24 20:35 Completed CRP [C-Reactive Protein] Stat Lab 04/06/24 20:35 Completed ESR [Erythrocyte Sedimentation Rate] Stat Lab 04/06/24 20:35 Completed Magnesium Stat Lab 04/06/24 20:35 Completed TSH [Thyroid Stimulating Hormone] Stat Lab 04/06/24 20:35 Completed UA [Urinalysis and Microscopic] Stat Lab 04/06/24 22:03 Received MDM Narrative Medical Decision Narrative: In summary patient is a 68-year-old female who presents to the emergency department for evaluation of right-sided painful paresthesia. Patient is hemodynamically stable upon arrival, afebrile. Physical exam is remarkable for tenderness to palpation in the right axilla down the right axillary side to the right hip crossing over the thigh medially and continue on down to the right hallux. However patient is tender to palpation over the entire surface of her skin and not just along the dermatome. Patient has no motor or sensory deficits and neurovascular intact otherwise distally.. Differential diagnosis includes paresthesia, multilevel disc degeneration versus diabetic neuropathy versus hyperglycemia etc. Initial workup will be conducted with hematologic labs. Initial interventions include Toradol Tylenol Decadron Robaxin. Initial workup reviewed by me shows normal white count and a normal sed rate with an elevated CRP but the remainder of her laboratory investigations are nonactionable with the exception of BUN/creatinine and GFR are significantly altered from her baseline.. Upon repeat evaluation patient reports 0 reduction in her pain with the interventions offered so far.. Given this I had an interactive discussion with hospital medicine regarding patient management and they agreed to admit for further evaluation and care. I was consulted by the FRANSISCO, and we discussed the complexity of the problems being addressed. I approved the treatment and management plan for this patient?s care in the Emergency Department, thus performing a substantive portion of the medical decision making. Buzz Keenan MD
--- NOTE | 2024-04-06 20:12 | XR_ITS ---
PROCEDURE INFORMATION: Exam: XR Chest Exam date and time: 04/06/2024 10:55 PM Age: 68 years old Clinical indication: Other: HX of chf TECHNIQUE: Imaging protocol: Radiologic exam of the chest. Views: 1 view. COMPARISON: CR XR CHEST PORTABLE 10/01/2022 1:30 PM FINDINGS: Tubes, catheters and devices: Right chest implanted cardiac device. CD Lungs: No evidence of acute pulmonary disease or infiltrates Pleural spaces: No large effusion or pneumothorax. Heart/Mediastinum: Stable cardiac and mediastinal contours. Bones/joints: No evidence of acute osseous abnormalities within the visualized portions of the thoracic spine and ribs. Osseous structures appear appropriate for patient age. IMPRESSION: No dense parenchymal consolidation, pleural effusion, or pneumothorax.
[2024-04-06] MEDS: ACETAMINOPHEN 1,000MG/100ML VIAL 1000 MG IV (20:35)
[2024-04-06] MEDS: KETOROLAC 30MG/ML VIAL 15 MG IV (20:35)
[2024-04-06] MEDS: LACTATED RINGERS 1000ML 1,000 ML 999 ML IV (20:36)
[2024-04-06] MEDS: DEXAMETHASONE 4MG/ML 5ML MDV 10 MG IV (20:36)
[2024-04-06 20:49] LABS: Basophils # 0.1 K/mm3 (0-0.2); Basophils % 0.8 % (0.1-2.0); Eosinophils # 0.4 K/mm3 (0.0-0.4); Eosinophils % 4.5 % (0.1-12.0); Hematocrit 39.4 % (37.0-47.0); Hemoglobin 12.5 g/dL (12.2-16.2); Lymphocytes # 1.9 K/mm3 (0.7-4.5); Lymphocytes % 21.2 % (10-50); Mean Corpuscular HGB Conc 31.9 g/dL (31.8-35.4); Mean Corpuscular Hemoglobin 35.9 pg (27.0-31.2); Mean Corpuscular Volume 112.5 fl (81-99); Mean Platelet Volume 8.1 fl (7.4-10.4); Monocytes # 0.4 K/mm3 (0.1-1.0); Monocytes % 4.9 % (1.7-9.3); Neutrophils # 6.2 K/mm3 (1.8-7.8); Neutrophils % 68.5 % (37.0-80.0); Platelet Count 191 K/mm3 (142-424); Red Cell Distribution Width 15.5 % (11.5-17.5)
[2024-04-06 20:51] LABS: Chloride 94 mmol/L (98-107); Potassium 4.9 mmoL/L (3.5-5.1); Sodium 131 mmol/L (136-145)
[2024-04-06 20:54] LABS: Alanine Aminotransferase 34 U/L (12-78); Albumin/Globulin Ratio 1.1 (1.1-1.8); Alkaline Phosphatase 237 U/L (38-126); Anion Gap 12.9 mEq/L (5-15); Aspartate Amino Transferase 45 U/L (14-36); Bilirubin,Total 0.6 mg/dl (0.2-1.3); Blood Urea Nitrogen 54 mg/dl (7-17); Calcium 9.2 mg/dl (8.4-10.2); Carbon Dioxide 29 mmol/L (22.0-30.0); Creatine Kinase 47 U/L (30-135); Creatinine Clearance Estimated 20 mL/min (50-200); Estimated Glomerular Filt Rate 25 ml/min (>60); GFR (African American) 30 ML/MIN (>60); Globulin 3.7 g/dL (1.3-3.2); Glucose 148 mg/dl (74-100); Total Protein,Serum 7.7 g/dl (6.3-8.2)
[2024-04-06 21:25] LABS: Thyroid Stimulating Hormone 1.64 uIU/mL (0.465-4.68)
[2024-04-06 21:28] LABS: Erythrocyte Sedimentation Rate 103 mm/hr (0-30)
[2024-04-06 22:06] LABS: Microscopic, Urine URINE MICROSCOPIC (MICROSCOPIC)
--- NOTE | 2024-04-06 22:08 | PC.NURSE ---
midlevel on phone with hospitalist re admit
[2024-04-06 22:09] LABS: Appearance,Urine CLEAR (Clear); Bilirubin,Urine Negative (Negative); Blood, Urine Negative (Negative); Color,Urine YELLOW (Yellow); Glucose,Urine (UA) Negative (Negative); Ketones,Urine Negative (Negative); Leukocyte Esterase,Urine 3+ (Negative); Nitrate,Urine Negative (Negative); Protein,Urine Negative (Negative); Urobilinogen,Urine 0.2 EU/dl (0.2)
[2024-04-06] MEDS: OXYCODONE 5MG IMMEDIATE RELEASE TABLET 5 MG PO (22:12)
--- NOTE | 2024-04-06 22:13 | PC.NURSE ---
apartment house manager notified of need for bed
[2024-04-06 22:23] LABS: Creatine Kinase 50 U/L (30-135)
[2024-04-06 22:29] LABS: Bacteria,Urine 3+ /lpf
--- NOTE | 2024-04-06 22:29 | PC.NURSE ---
Report given to JANET Orr
--- NOTE | 2024-04-06 22:39 | PC.NURSE ---
pt arrived to floor at this time
[2024-04-06 23:01] LABS: NT Pro Brain Natriuretic Pep. 843 pg/mL (0-125)
[2024-04-06 23:13] LABS: 25-OH Vitamin D, Total 44.2 ng/mL (30-100)
[2024-04-06] MEDS: 0.9 % SODIUM CHLORIDE 1000ML 1,000 ML 50 ML IV (23:22)
[2024-04-06] MEDS: humaLOG 100 UNITS/ML 3ML VIAL (SSI) SQ (23:40)
[2024-04-06] MEDS: CEFTRIAXONE SODIUM 2 GM in 0.9 % SODIUM CHLORIDE 100 ML IV (23:40)
--- NOTE | 2024-04-06 23:42 | P.HP_ITS ---
History of Present Illness *Admission Date: 04/06/24 *Reason for visit:: Paresthesias *History of present illness: This is a 68-year-old female with multiple chronic comorbidities including diabetes, neuropathy, systolic heart failure, recurrent UTIs, hypertension, cardiomyopathy, CAD, defibrillator in situ, morbid obesity who presents emergency department complaining of neuropathic pain. She reports pain from her axilla on the right side all the way down to her toe. She reports the pain and paresthesia are most significant in her right thigh. States that her skin hurts to touch. Denies any recent viral symptoms. Denies any difficulty with ambulation or motor function. States that this paresthesia is different from her diabetic neuropathy. States that her diabetic neuropathy is just numb but is not painful. States that she is unable to take care of his pain at home with her chronic pain medications. She attempted to see her PCP today but they were unable to get her in so she sought treatment emergency department. Emergency department workup mostly unremarkable. Mildly elevated creatinine at 2.0 with a baseline of 1.1. GFR of 30, BUN of 54. Alk phos of 237 with elevated CRP. Urinalysis notable for positive leuk esterase, white blood cells and bacteria. She does have a history of Klebsiella pneumoniae in her urine. She currently is stable on room air. Multiple medications were attempted in the ER without symptomatic relief. Although patient appears stable on exam, it felt that she would benefit from pain control due to to her paresthesias and pain of her right side. [facility] Disclaimer: The information contained in this section may have been updated after the patient was seen, as this information can be updated by other users. Medical History Cardiac defibrillator in situ SOB (shortness of breath) on exertion HLD (hyperlipidemia) Anxiety Tachycardia Surgical History History of appendectomy History of automatic internal cardiac defibrillator (AICD) History of cholecystectomy History of colonoscopy History of implanted electronic device Cardiac contractility modulator implant (IMPULSE) SEP 2022 History of tonsillectomy Family History Other Family history of COPD (chronic obstructive pulmonary disease) Family history of cancer Family history of cardiac arrhythmia Family history of diabetes mellitus type II Family history of hypothyroidism Family history of myocardial infarction Social History (Updated 04/06/24 @ 23:21 by Missy Bella RN) Smoking Status: Never smoker alcohol intake: never counseling provided: none substance use type: denies use current occupational status: disabled Travel in the last 8 weeks: None household members: family housing: house lives independently: Yes marital status: single education level: high school current occupational exposures/hazards: No caffeine: No do you feel safe at home: Yes victim of physical abuse: No victim of emotional abuse: No victim of sexual abuse: No would you like helpful sources: No Review of Systems Review of Systems Review of systems:: pertinent systems reviewed and negative unless documented below Meds Home Medications and Allergies Home Medications Medication Instructions Recorded Confirmed Type atorvastatin 10 mg tablet 10 mg PO DAILY Cholesterol 12/03/17 04/06/24 History pantoprazole 40 mg tablet,delayed 40 mg PO BID acid reflux 12/03/17 04/06/24 History release tramadol 50 mg tablet 50 mg PO BIDP PRN pain 12/03/17 04/06/24 History loratadine 10 mg tablet 10 mg PO DAILY allergies 12/21/19 04/06/24 History omega 3-pgq-edt-fish oil 300 1 cap PO BID Cholesterol 12/21/19 04/06/24 History mg-1,000 mg capsule,delayed release multivitamin,ci-xppn-mfkjqhie 1 tab PO DAILY Diet supplement 02/12/20 04/06/24 History phenobarbital 32.4 mg tablet 97.2 mg PO HS seizures 02/12/20 04/06/24 History digoxin 125 mcg (0.125 mg) tablet 125 mcg PO DAILY heart rate control 03/27/20 04/06/24 History ropinirole 2 mg tablet 2 mg PO HS restless legs 03/28/20 04/06/24 History magnesium oxide 250 mg PO DAILY Supplement 06/13/20 04/06/24 History bisoprolol fumarate 10 mg tablet See Rx Instructions .Route 02/08/21 04/06/24 History .COMPLEX High blood pressure gabapentin 800 mg tablet 800 mg PO TID NERVE PAIN 02/26/21 04/06/24 History sacubitril 97 mg-valsartan 103 mg 1 tab PO BID HEART MEDICATION 04/24/22 04/06/24 History tablet spironolactone 25 mg tablet 25 mg PO DAILY FLUID PILL #90 tabs 09/30/22 04/06/24 Rx nitroglycerin 0.4 mg sublingual See Rx Instructions .Route 10/01/22 04/06/24 History tablet .COMPLEX Chest pain semaglutide 1 mg/dose (2 mg/1.5 2 mg SQ WEEKLY Diabetes 04/17/23 04/06/24 History mL) subcutaneous pen injector (Ozempic) insulin human U-100 NPH-regulr See Rx Instructions .Route 04/23/23 04/06/24 History 70-30 mix 100 unit/mL subcutaneous .COMPLEX Diabetes susp (Novolin 70/30 U-100 Insulin) torsemide 20 mg tablet See Rx Instructions .Route 10/01/23 04/06/24 Rx .COMPLEX #60 tabs rivaroxaban 20 mg tablet 20 mg PO DAILY Blood thinner #90 12/29/23 04/06/24 Rx tabs New Prescriptions to Start Prescriptions: Allergies Allergy/AdvReac Type Severity Reaction Status Date / Time metoclopramide [From REGLAN] Allergy Mild SHAKES Verified 10/21/23 08:57 Exam Data for Last 24 hours Vital signs and Labs for Last 24 Hours: Temp Pulse Resp BP Pulse Ox O2 Del Method 97.6 F 71 18 127/69 98 Room Air 04/06/24 22:48 04/06/24 22:48 04/06/24 22:48 04/06/24 22:48 04/06/24 22:48 04/06/24 22:48 Laboratory Results - last 24 hr 04/06/24 20:35: WBC 9.0, RBC 3.50 L, Hgb 12.5, Hct 39.4, MCV 112.5 H, MCH 35.9 H , MCHC 31.9, RDW 15.5, Plt Count 191, MPV 8.1, Neut % (Auto) 68.5, Lymph % (Auto) 21.2, [place] % (Auto) 4.9, Eos % (Auto) 4.5, Baso % (Auto) 0.8, Neut # (Auto) 6.2, Lymph # (Auto) 1.9, [place] # (Auto) 0.4, Eos # (Auto) 0.4, Baso # (Auto) 0.1, ESR 103 H, Sodium 131 L, Potassium 4.9, Chloride 94 L, Carbon Dioxide 29, Anion Gap 12.9, BUN 54 H, Creatinine 2.00 H, Estimated Creat Clear 20, Estimated GFR 25 L, Est GFR ( Amer) 30 L, Glucose 148 H, Calcium 9.2, Magnesium 2.0, Total Bilirubin 0.6, AST 45 H, ALT 34, Alkaline Phosphatase 237 H , Total Creatine Kinase 47 04/06/24 20:35: Total Creatine Kinase 50, C-Reactive Protein 22.0 H, NT-Pro-B Natriuret Pep 843 H, Total Protein 7.7, Albumin 4.0, Globulin 3.7 H, Albumin/Globulin Ratio 1.1, 25-OH Vitamin D Total 44.2, TSH 1.64 04/06/24 22:03: Urine Color Yellow, Urine Appearance Clear, Urine pH 6.0, Ur Specific Hansen 1.010, Urine Protein Negative, Urine Glucose (UA) Negative, Urine Ketones Negative, Urine Blood Negative, Urine Nitrate Negative, Urine Bilirubin Negative, Urine Urobilinogen 0.2, Ur Leukocyte Esterase 3+ A, Urine RBC None, Urine WBC 10-20, Ur Squamous Epith Cells None, Urine Bacteria 3+ I & O for Last 24 hours: Intake & Output 04/03/24 04/04/24 04/05/24 04/06/24 23:59 23:59 23:59 23:59 Weight 93.576 kg Constitutional Constitutional: no acute distress *Routine HEENT Exam Head: Present normocephalic Eye: Present EOMI and PERRL ENT: Present mucous membranes moist *Routine Neck Exam Neck: Present supple; Absent lymphadenopathy *Routine Respiratory Exam Respiratory: Present CTA bilaterally *Routine Cardiovascular Exam Cardiovascular: Present RRR *Routine Abdominal Exam Abdominal: Present soft and normoactive bowel sounds; Absent tenderness *Routine Rectal Exam Rectal:: deferred *Routine Genitalia Exam Genitalia:: deferred *Routine Extremities Exam Extremities: Absent cyanosis, clubbing or edema *Routine Skin Exam Skin: Present warm; Absent rash *Routine Neurological Exam Neurological: Present alert and oriented X3 Assessment and Plan *Assessment and plan (1) Neuropathic pain: Status: Acute Category: Medical Code(s): M79.2 - Neuralgia and neuritis, unspecified (2) Acute on chronic renal failure: Status: Acute Qualifiers: Acute renal failure type: unspecified Chronic kidney disease stage: unspecified stage Qualified Code(s): N17.9 - Acute kidney failure, unspecified; N18.9 - Chronic kidney disease, unspecified Category: Medical Code(s): N17.9 - Acute kidney failure, unspecified; N18.9 - Chronic kidney disease, unspecified (3) Type 2 diabetes mellitus, with long-term current use of insulin: Status: Acute Qualifiers: Diabetes mellitus complication status: without complication Qualified Code(s): E11.9 - Type 2 diabetes mellitus without complications; Z79.4 - terminal gauger (current) use of insulin Category: Medical Code(s): E11.9 - Type 2 diabetes mellitus without complications; Z79.4 - terminal gauger (current) use of insulin (4) Chronic combined systolic and diastolic heart failure: Status: Acute Category: Medical Code(s): I50.42 - Chronic combined systolic (congestive) and diastolic (congestive) heart failure (5) Acute cystitis: Status: Acute Qualifiers: Hematuria presence: without hematuria Qualified Code(s): N30.00 - Acute cystitis without hematuria Category: Medical Code(s): N30.00 - Acute cystitis without hematuria (6) Diabetes mellitus: Status: Acute Qualifiers: Diabetes mellitus type: type 2 Diabetes mellitus complication status: with diabetic arthropathy Category: Medical Code(s): E11.9 - Type 2 diabetes mellitus without complications Plan #Neuropathic pain Mildly elevated inflammatory markers. No rash noted. No muscle weakness. Pain and paresthesias cross dermatomes and are unilateral to the right side so likely not viral in nature. ? Myositis but low suspicion Continue to treat with neuropathic medications #Acute cystitis History of Klebsiella pneumoniae in urine sensitive to Rocephin Continue Rocephin Follow-up urine culture #DEBORAH on CKD Elevated creatinine of 2 with GFR of 30 and a BUN of 54 Does not appear overloaded on exam ? Prerenal in nature given chronic Lasix usage Will slow maintenance IV fluids, judiciously in the setting of combined diastolic systolic heart failure #Chronic combined systolic and diastolic heart failure Prior echocardiogram with a EF of 35 to 45% On room air oxygenating well. Monitor respiratory status #Diabetes Continue sliding scale insulin DVT PPx on Xarelto Full code
[2024-04-06 23:52] LABS: POC Glucose,Bedside 166 (70-110)
[2024-04-07 00:01] LABS: Vitamin B12 841 pg/mL (239-931)
[2024-04-07 00:02] LABS: Folate > 20.00 ng/mL
[2024-04-07 04:00] VITALS: BP 108/64; PULSE 72; RESP 18; TEMP 36.4; O2SAT 97; BMI 41.7
[2024-04-07] MEDS: HYDROCODONE/APAP 5/325 MG TABLET 1 TAB PO (04:11)
[2024-04-07] MEDS: humaLOG 100 UNITS/ML 3ML VIAL (SSI) SQ (05:36)
[2024-04-07 05:46] LABS: POC Glucose,Bedside 212 (70-110)
--- NOTE | 2024-04-07 06:10 | PC.NURSE ---
Pt arrived to the unit around 2229, Pt c/o moderate to severe pain and has been treated per JAN. Pt has required insulin coverage this shift.
[2024-04-07 06:50] LABS: Anion Gap 15.2 mEq/L (5-15); Blood Urea Nitrogen 51 mg/dl (7-17); Calcium 8.8 mg/dl (8.4-10.2); Carbon Dioxide 26 mmol/L (22.0-30.0); Chloride 94 mmol/L (98-107); Creatinine Clearance Estimated 22 mL/min (50-200); Estimated Glomerular Filt Rate 30 ml/min (>60); GFR (African American) 36 ML/MIN (>60); Glucose 208 mg/dl (74-100); Potassium 5.2 mmoL/L (3.5-5.1); Sodium 130 mmol/L (136-145)
[2024-04-07 07:01] LABS: Basophils % 0.1 % (0.1-2.0); Eosinophils % 0.3 % (0.1-12.0); Hematocrit 35.9 % (37.0-47.0); Hemoglobin 11.5 g/dL (12.2-16.2); Lymphocytes # 1.2 K/mm3 (0.7-4.5); Mean Corpuscular Hemoglobin 36.1 pg (27.0-31.2); Mean Corpuscular Volume 112.7 fl (81-99); Mean Platelet Volume 8.5 fl (7.4-10.4); Monocytes # 0.2 K/mm3 (0.1-1.0); Monocytes % 1.7 % (1.7-9.3); Neutrophils # 8.3 K/mm3 (1.8-7.8); Platelet Count 194 K/mm3 (142-424); Red Blood Count 3.18 M/mm3 (4.20-5.40); Red Cell Distribution Width 15.3 % (11.5-17.5); White Blood Count 9.7 K/mm3 (4.8-10.8)
[2024-04-07 07:06] LABS: MANUAL DIFFERENTIAL MANUAL DIFFERENTIAL (MANUAL DIFF)
[2024-04-07 07:51] VITALS: BP 101/57; PULSE 76; RESP 18; TEMP 36.6; O2SAT 90
[2024-04-07] MEDS: GABAPENTIN 800MG TABLET 800 MG PO (08:01)
[2024-04-07 08:02] VITALS: PULSE 76
[2024-04-07] MEDS: DIGOXIN 0.125MG TABLET 125 MCG PO (08:02)
[2024-04-07] MEDS: ATORVASTATIN 10MG TABLET 10 MG PO (08:02)
[2024-04-07] MEDS: BISOPROLOL 5MG TABLET 10 MG PO (08:03)
[2024-04-07 08:15] LABS: Lymphocytes % 9 % (10-50); Monocytes % 1 % (2-9); Neutrophils % 90 % (42-76); Total Cells Counted 100
[2024-04-07] MEDS: SACUBITRIL/VALSARTAN 24-26MG TABLET 4 EACH PO (08:15)
[2024-04-07 08:20] LABS: Macrocytosis 2+; Platelet Estimate Normal
--- NOTE | 2024-04-07 08:38 | HMH.PHAINT1 ---
Pharmacy Intervention Comments: MEDICATION RECONCILIATION COMPLETED ON PATIENT USING EXTERNAL FILL HISTORY FROM PHARMACY AND NATHEN REPORT. -KENDRA ANAYA, [facility]
--- NOTE | 2024-04-07 09:48 | HMH.PTEV ---
Physical Therapy Evaluation Rehab PT IP Evaluation Start: 04/07/24 08:55 Freq: ONCE Status: Active Protocol: Document 04/07/24 09:45 BISHOP (Rec: 04/07/24 09:48 BISHOP [id number]) Subjective/History History History Per H&P: This is a 68-year-old female with multiple chronic comorbidities including diabetes, neuropathy, systolic heart failure, recurrent UTIs , hypertension, cardiomyopathy , CAD, defibrillator in situ, morbid obesity who presents emergency department complaining of neuropathic pain. She reports pain from her axilla on the right side all the way down to her toe. She reports the pain and paresthesia are most significant in her right thigh . States that her skin hurts to touch. Denies any recent viral symptoms. Denies any difficulty with ambulation or motor function. States that this paresthesia is different from her diabetic neuropathy. States that her diabetic neuropathy is just numb but is not painful. States that she is unable to take care of his pain at home with her chronic pain medications. She attempted to see her PCP today but they were unable to get her in so she sought treatment emergency department. Subjective Subjective PLOF per pt report: Living with her sister in a 2-story home with chair lift to second floor and 4 CODY (with HR). Pt used a cane for modified IND ambulation and was IND with ADLs and all functional mobility. New diagnosis of cancer in past 12 No months? Rehab PT IP Eval Objective Appearance Patient Behavior Appropriate Patient Orientation Person,Place,Situation Difficulty following instructions none Speech Pattern Clear Ambulation Patient Able to Ambulate Yes Ambulation Observation IP General Gait Pattern Observation No Deviations/Normal Ambulation Distance (feet) 45 Ambulation Assistive Device Rolling Walker Ambulation Ability Contact Guard/Hand Hold Balance Ability to Arise Able, uses arms to help Sitting Balance Steady, safe Standing Balance Steady, wide stance Transfers Bed Transfer Ability Supervision/Stand by Sit to Stand Bed Transfer Ability Supervision/Stand by Rehab PT IP prob,goals,plan Problems Date of Evaluation: 04/07/24 PT IP Problems Transfers,Gait,Balance,Self care,Safety Rehab Potential Rehab Potential Good Equipment Needs Assistive Devices Rolling / Wheeled Walker Plan PT Intervention Plan Bed Mobility,Transfers,Gait, Balance,Self care,Safety, Therapeutic Exercise Other Intervention Plan 1-2 times PT Plan Frequency Daily Duration LOS Discharge Goals Bed Transfer Ability Independent Sit to Stand Chair Transfer Ability Independent Ambulation Assistive Device Rolling Walker Ambulation Distance (feet) 100 Discharge Plan PT Discharge Plan Initial physical therapy evaluation performed. Patient presents below baseline at this time in functional mobility, transfers, gait, and strength. Pt would benefit from skilled PT while at [facility] to prevent further functional decline and maximize safety with mobility. Pt safe to d/c home when deemed medically necessary d/t current level of mobility, home set-up, and family support. PT recommending home health PT services to address deficits. Recommending pt use RW when ambulating for safety. Eval Complexity Eval Charge Codes 20800 - Moderate Complexity PHYSICIAN CERTIFICATION: I certify the specified therapy services for Sara Monteros are required, authorized, and reviewed every 30 days.
--- NOTE | 2024-04-07 10:02 | SW/DCPLANNER ---
Addendum entered by Antoinette Scott 04/07/24 14:30: Francine sandra/ [facility] stated that services will begin this week. Original Note: I spoke w/ this patient regarding plans once medically stable for discharge. PT/OT evaluated patient and recommended home w/ home health services. Patient is agreeable to home health services and prefers to use [facility]. I will set up services once medically stable for discharge.
--- NOTE | 2024-04-07 10:03 | HMH.OTEV ---
OT Inpatient Evaluation Rehab OT IP Evaluation Start: 04/07/24 08:55 Freq: ONCE Status: Active Protocol: Document 04/07/24 09:54 LINUSLUPE (Rec: 04/07/24 10:03 DELVIS [id number]) Rehab OT IP Assessment Subjective History This is a 68-year-old female with multiple chronic comorbidities including diabetes, neuropathy, systolic heart failure, recurrent UTIs , hypertension, cardiomyopathy , CAD, defibrillator in situ, morbid obesity who presents emergency department complaining of neuropathic pain. She reports pain from her axilla on the right side all the way down to her toe. She reports the pain and paresthesia are most significant in her right thigh . States that her skin hurts to touch. Denies any recent viral symptoms. Denies any difficulty with ambulation or motor function. States that this paresthesia is different from her diabetic neuropathy. States that her diabetic neuropathy is just numb but is not painful. States that she is unable to take care of his pain at home with her chronic pain medications. She attempted to see her PCP today but they were unable to get her in so she sought treatment emergency department. Emergency department workup mostly unremarkable. Mildly elevated creatinine at 2.0 with a baseline of 1.1. GFR of 30, BUN of 54. Alk phos of 237 with elevated CRP. Urinalysis notable for positive leuk esterase, white blood cells and bacteria. She does have a history of Klebsiella pneumoniae in her urine. She currently is stable on room air. Multiple medications were attempted in the ER without symptomatic relief. Although patient appears stable on exam, it felt that she would benefit from pain control due to to her paresthesias and pain of her right side. Patient lives in 2 story apartment with sister and son in law. Patient has 2-3 CODY with railing. Independent with ADLs and fx'l mobility with usage of RW. Continue to drive independently. Subjective I can get up. Analysis Patient's safety awareness to complete bed mobility, transfers, LB drsg and fx'l mobility with usage of RW. Patient completed ~ 100ft of mobility with usage of RW with SBA. SBA for all ADLs and transfers. No LOB noted. Objective Patient Orientation Person,Name,Age,Birthday,Year Right Upper Extremity Gross ROM WFL Left Upper Extremity Gross ROM WFL Bed Mobility bed mobility - supine/sit Assist Level Supervision/Stand by Transfer Training Sit/Stand/Pivot Transfer Assist Level Supervision/Stand by Chair Transfer Ability Supervision/Stand by Chair Transfer Technique Sit to/from Ambulatory Chair Transfer Assistive Devices Rolling Walker Lower Body Dressing Ability Independent Rehab OT IP prob,goals,plan Problems Date of Evaluation: 04/07/24 OT IP Problems Bed Mobility,Transfers,Balance ,Self care,Safety Rehab Potential Rehab Potential Good Equipment Needs Assistive Devices Rolling / Wheeled Walker Plan OT intervention Plan Bed Mobility,Transfers,Balance ,Self care,Safety,Therapeutic Exercise OT Plan Frequency Daily Duration LOS Discharge Goals Bed Mobility Ability Independent Sit to Stand Chair Transfer Ability Independent Chair Transfer Ability Independent Chair Transfer Technique Sit to/from Ambulatory Chair Transfer Assistive Devices Rolling Walker Discharge Plan OT Discharge Plan Recommend patient to return home with family and services. Patient to continue skilled OT IP services while here at [facility] services. Eval Complexity Eval Charge Codes 10893 - Low Complexity PHYSICIAN CERTIFICATION: I certify the specified therapy services for Sara Monteros are required, authorized, and reviewed every 30 days.
[2024-04-07 11:21] LABS: POC Glucose,Bedside 199 (70-110)
[2024-04-07 11:27] VITALS: BP 122/55; PULSE 74; RESP 18; TEMP 36.7; O2SAT 96
--- NOTE | 2024-04-07 12:05 | EXP.DC.SUM ---
General Admission date:: 04/06/24 Discharge date: 04/07/24 HPI HPI HPI: This is a 68-year-old female with multiple chronic comorbidities including diabetes, neuropathy, systolic heart failure, recurrent UTIs, hypertension, cardiomyopathy, CAD, defibrillator in situ, morbid obesity who presents emergency department complaining of neuropathic pain. She reports pain from her axilla on the right side all the way down to her toe. She reports the pain and paresthesia are most significant in her right thigh. States that her skin hurts to touch. Denies any recent viral symptoms. Denies any difficulty with ambulation or motor function. States that this paresthesia is different from her diabetic neuropathy. States that her diabetic neuropathy is just numb but is not painful. States that she is unable to take care of his pain at home with her chronic pain medications. She attempted to see her PCP today but they were unable to get her in so she sought treatment emergency department. Emergency department workup mostly unremarkable. Mildly elevated creatinine at 2.0 with a baseline of 1.1. GFR of 30, BUN of 54. Alk phos of 237 with elevated CRP. Urinalysis notable for positive leuk esterase, white blood cells and bacteria. She does have a history of Klebsiella pneumoniae in her urine. She currently is stable on room air. Multiple medications were attempted in the ER without symptomatic relief. Although patient appears stable on exam, it felt that she would benefit from pain control due to to her paresthesias and pain of her right side. Hospital Course Hospital Course Hospital Course: Patient presented to hospital due to legs pain, patient was found to have DEBORAH as well, patient pain improved a little, patient given pain management referral and Cr improving so continue to hold HCTZ, lasix for 2 days , f/u with PCP as OP, encouranged on oral hydration for few days #Neuropathic pain - chronic continue neurontin, needs to f/u with pain management, referral given #Acute cystitis - dc on levofloxacin for 5 days, History of pansensitive Klebsiella #DEBORAH on CKD - improving, hold diuretics for 2 days post discharge #Chronic combined systolic and diastolic heart failure - stable Exam Data for Last 24 hours Vital signs and Labs for Last 24 Hours: Temp Pulse Resp BP Pulse Ox O2 Del Method 98.0 F 74 18 122/55 L 96 Room Air 04/07/24 11:27 04/07/24 11:27 04/07/24 11:27 04/07/24 11:27 04/07/24 11:27 04/07/24 11:27 Laboratory Results - last 24 hr 04/06/24 20:35: WBC 9.0, RBC 3.50 L, Hgb 12.5, Hct 39.4, MCV 112.5 H, MCH 35.9 H, MCHC 31.9, RDW 15.5, Plt Count 191, MPV 8.1, Neut % (Auto) 68.5, Lymph % (Auto) 21.2, [place] % (Auto) 4.9, Eos % (Auto) 4.5, Baso % (Auto) 0.8, Neut # (Auto) 6.2, Lymph # (Auto) 1.9, [place] # (Auto) 0.4, Eos # (Auto) 0.4, Baso # (Auto) 0.1, ESR 103 H, Sodium 131 L, Potassium 4.9, Chloride 94 L, Carbon Dioxide 29, Anion Gap 12.9, BUN 54 H, Creatinine 2.00 H, Estimated Creat Clear 20, Estimated GFR 25 L, Est GFR ( Amer) 30 L, Glucose 148 H, Calcium 9.2, Magnesium 2.0, Total Bilirubin 0.6, AST 45 H, ALT 34, Alkaline Phosphatase 237 H, Total Creatine Kinase 47 04/06/24 20:35: Total Creatine Kinase 50, C-Reactive Protein 22.0 H, NT-Pro-B Natriuret Pep 843 H, Total Protein 7.7, Albumin 4.0, Globulin 3.7 H, Albumin/Globulin Ratio 1.1, Vitamin B12 841, 25-OH Vitamin D Total 44.2, Folate > 20.00, TSH 1.64 04/06/24 22:03: Urine Color Yellow, Urine Appearance Clear, Urine pH 6.0, Ur Specific [place] 1.010, Urine Protein Negative, Urine Glucose (UA) Negative, Urine Ketones Negative, Urine Blood Negative, Urine Nitrate Negative, Urine Bilirubin Negative, Urine Urobilinogen 0.2, Ur Leukocyte Esterase 3+ A, Urine RBC None, Urine WBC 10-20, Ur Squamous Epith Cells None, Urine Bacteria 3+ 04/06/24 23:28: POC Glucose 166 H 04/07/24 05:33: POC Glucose 212 H 04/07/24 06:10: WBC 9.7, RBC 3.18 L, Hgb 11.5 L, Hct 35.9 L, MCV 112.7 H, MCH 36.1 H, MCHC 32.0, RDW 15.3, Plt Count 194, MPV 8.5, Neut % (Auto) 86.0 H, Lymph % (Auto) 12.0, [place] % (Auto) 1.7, Eos % (Auto) 0.3, Baso % (Auto) 0.1, Neut # (Auto) 8.3 H, Lymph # (Auto) 1.2, [place] # (Auto) 0.2, Eos # (Auto) 0.0, Baso # (Auto) 0.0, Total Counted 100, Neutrophils % (Manual) 90 H, Lymphocytes % (Manual) 9 L, Monocytes % (Manual) 1 L, Platelet Estimate Normal, Macrocytosis 2+, Sodium 130 L, Potassium 5.2 H, Chloride 94 L, Carbon Dioxide 26, Anion Gap 15.2 H, BUN 51 H, Creatinine 1.70 H, Estimated Creat Clear 22, Estimated GFR 30 L, Est GFR ( Amer) 36 L, Glucose 208 H D, Calcium 8.8 04/07/24 11:13: POC Glucose 199 H I & O for Last 24 hours: Intake & Output 04/04/24 04/05/24 04/06/24 04/07/24 23:59 23:59 23:59 23:59 Intake Total 510 / 510 Output Total 0 / 0 Balance 510 / 510 Weight 93.576 kg 96.479 kg Microbiology Reports for the Last 24 Hours: Microbiology 04/06/24 22:03 Urine,Clean Catch Urine Culture - Preliminary Gram Negative Rods Constitutional Constitutional: no acute distress *Routine HEENT Exam Head: Present normocephalic Eye: Present EOMI and PERRL ENT: Present mucous membranes moist *Routine Neck Exam Neck: Present supple; Absent lymphadenopathy *Routine Respiratory Exam Respiratory: Present CTA bilaterally *Routine Cardiovascular Exam Cardiovascular: Present RRR *Routine Abdominal Exam Abdominal: Present soft and normoactive bowel sounds; Absent tenderness *Routine Extremities Exam Extremities: Absent cyanosis, clubbing or edema *Routine Skin Exam Skin: Present warm; Absent rash *Routine Neurological Exam Neurological: Present alert and oriented X3 Results Data Completed and Pending Labs on day of discharge: Labs from last 24 hours 04/07/24 04/07/24 04/07/24 11:13 06:10 05:33 WBC 9.7 RBC 3.18 L Hgb 11.5 L Hct 35.9 L MCV 112.7 H MCH 36.1 H MCHC 32.0 RDW 15.3 Plt Count 194 MPV 8.5 Neut % (Auto) 86.0 H Lymph % (Auto) 12.0 [place] % (Auto) 1.7 Eos % (Auto) 0.3 Baso % (Auto) 0.1 Neut # (Auto) 8.3 H Lymph # (Auto) 1.2 [place] # (Auto) 0.2 Eos # (Auto) 0.0 Baso # (Auto) 0.0 Total Counted 100 Neutrophils % (Manual) 90 H Lymphocytes % (Manual) 9 L Monocytes % (Manual) 1 L Platelet Estimate Normal Macrocytosis 2+ ESR Sodium 130 L Potassium 5.2 H Chloride 94 L Carbon Dioxide 26 Anion Gap 15.2 H BUN 51 H Creatinine 1.70 H Estimated Creat Clear 22 Estimated GFR 30 L Est GFR ( Amer) 36 L Glucose 208 H D POC Glucose 199 H 212 H Calcium 8.8 Magnesium Total Bilirubin AST ALT Alkaline Phosphatase Total Creatine Kinase C-Reactive Protein NT-Pro-B Natriuret Pep Total Protein Albumin Globulin Albumin/Globulin Ratio Vitamin B12 25-OH Vitamin D Total Folate TSH Urine Color Urine Appearance Urine pH Ur Specific [place] Urine Protein Urine Glucose (UA) Urine Ketones Urine Blood Urine Nitrate Urine Bilirubin Urine Urobilinogen Ur Leukocyte Esterase Urine RBC Urine WBC Ur Squamous Epith Cells Urine Bacteria 04/06/24 04/06/24 04/06/24 23:28 22:03 20:35 WBC RBC Hgb Hct MCV MCH MCHC RDW Plt Count MPV Neut % (Auto) Lymph % (Auto) [place] % (Auto) Eos % (Auto) Baso % (Auto) Neut # (Auto) Lymph # (Auto) [place] # (Auto) Eos # (Auto) Baso # (Auto) Total Counted Neutrophils % (Manual) Lymphocytes % (Manual) Monocytes % (Manual) Platelet Estimate Macrocytosis ESR Sodium Potassium Chloride Carbon Dioxide Anion Gap BUN Creatinine Estimated Creat Clear Estimated GFR Est GFR ( Amer) Glucose POC Glucose 166 H Calcium Magnesium Total Bilirubin AST ALT Alkaline Phosphatase Total Creatine Kinase 50 C-Reactive Protein 22.0 H NT-Pro-B Natriuret Pep 843 H Total Protein 7.7 Albumin 4.0 Globulin 3.7 H Albumin/Globulin Ratio 1.1 Vitamin B12 841 25-OH Vitamin D Total 44.2 Folate > 20.00 TSH 1.64 Urine Color Yellow Urine Appearance Clear Urine pH 6.0 Ur Specific [place] 1.010 Urine Protein Negative Urine Glucose (UA) Negative Urine Ketones Negative Urine Blood Negative Urine Nitrate Negative Urine Bilirubin Negative Urine Urobilinogen 0.2 Ur Leukocyte Esterase 3+ A Urine RBC None Urine WBC 10-20 Ur Squamous Epith Cells None Urine Bacteria 3+ 04/06/24 20:35 WBC 9.0 RBC 3.50 L Hgb 12.5 Hct 39.4 MCV 112.5 H MCH 35.9 H MCHC 31.9 RDW 15.5 Plt Count 191 MPV 8.1 Neut % (Auto) 68.5 Lymph % (Auto) 21.2 [place] % (Auto) 4.9 Eos % (Auto) 4.5 Baso % (Auto) 0.8 Neut # (Auto) 6.2 Lymph # (Auto) 1.9 [place] # (Auto) 0.4 Eos # (Auto) 0.4 Baso # (Auto) 0.1 Total Counted Neutrophils % (Manual) Lymphocytes % (Manual) Monocytes % (Manual) Platelet Estimate Macrocytosis ESR 103 H Sodium 131 L Potassium 4.9 Chloride 94 L Carbon Dioxide 29 Anion Gap 12.9 BUN 54 H Creatinine 2.00 H Estimated Creat Clear 20 Estimated GFR 25 L Est GFR ( Amer) 30 L Glucose 148 H POC Glucose Calcium 9.2 Magnesium 2.0 Total Bilirubin 0.6 AST 45 H ALT 34 Alkaline Phosphatase 237 H Total Creatine Kinase 47 C-Reactive Protein NT-Pro-B Natriuret Pep Total Protein Albumin Globulin Albumin/Globulin Ratio Vitamin B12 25-OH Vitamin D Total Folate TSH Urine Color Urine Appearance Urine pH Ur Specific [place] Urine Protein Urine Glucose (UA) Urine Ketones Urine Blood Urine Nitrate Urine Bilirubin Urine Urobilinogen Ur Leukocyte Esterase Urine RBC Urine WBC Ur Squamous Epith Cells Urine Bacteria Preliminary micro results at discharge 04/06/24 22:03 Urine Culture - Preliminary Urine,Clean Catch Gram Negative Rods DS: Diagnosis Discharge Diagnosis (1) Neuropathic pain: Status: Acute Code(s): M79.2 - Neuralgia and neuritis, unspecified (2) Acute on chronic renal failure: Status: Acute Code(s): N17.9 - Acute kidney failure, unspecified; N18.9 - Chronic kidney disease, unspecified Qualifiers: Acute renal failure type: unspecified Chronic kidney disease stage: unspecified stage Qualified Code(s): N17.9 - Acute kidney failure, unspecified; N18.9 - Chronic kidney disease, unspecified (3) Type 2 diabetes mellitus, with long-term current use of insulin: Status: Acute Code(s): E11.9 - Type 2 diabetes mellitus without complications; Z79.4 - penitentiary (current) use of insulin Qualifiers: Diabetes mellitus complication status: without complication Qualified Code(s): E11.9 - Type 2 diabetes mellitus without complications; 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 (4) Chronic combined systolic and diastolic heart failure: Status: Acute Code(s): I50.42 - Chronic combined systolic (congestive) and diastolic (congestive) heart failure (5) Acute cystitis: Status: Acute Code(s): N30.00 - Acute cystitis without hematuria Qualifiers: Hematuria presence: without hematuria Qualified Code(s): N30.00 - Acute cystitis without hematuria (6) Diabetes mellitus: Status: Acute Code(s): E11.9 - Type 2 diabetes mellitus without complications Qualifiers: Diabetes mellitus complication status: with diabetic arthropathy Diabetes mellitus type: type 2 Meds Home Medications and Allergies Home Medications Medication Instructions Recorded Confirmed Type atorvastatin 10 mg tablet 10 mg PO DAILY 12/03/17 04/07/24 History pantoprazole 40 mg tablet,delayed 40 mg PO BID 12/03/17 04/07/24 History release tramadol 50 mg tablet 50 mg PO BIDP PRN Mild Pain (Scale 12/03/17 04/07/24 History Score 1-4) loratadine 10 mg tablet 10 mg PO DAILY 12/21/19 04/07/24 History omega 8-zdn-tah-fish oil 300 1 cap PO BID 12/21/19 04/07/24 History mg-1,000 mg capsule,delayed release phenobarbital 32.4 mg tablet 97.2 mg PO HS 02/12/20 04/07/24 History digoxin 125 mcg (0.125 mg) tablet 125 mcg PO DAILY 03/27/20 04/07/24 History ropinirole 2 mg tablet 2 mg PO HS 03/28/20 04/07/24 History magnesium oxide 250 mg PO DAILY 06/13/20 04/07/24 History bisoprolol fumarate 10 mg tablet 20 mg PO HS 02/08/21 04/07/24 History gabapentin 800 mg tablet 800 mg PO TID 02/26/21 04/07/24 History rivaroxaban 20 mg tablet 20 mg PO DAILY Blood thinner #90 12/29/23 04/07/24 Rx tabs allopurinol 100 mg tablet 100 mg PO DAILY 04/07/24 04/07/24 History bisoprolol fumarate 10 mg tablet 10 mg PO DAILY 04/07/24 04/07/24 History cyclobenzaprine 5 mg tablet 5 mg PO TIDP PRN Muscle Spasm 04/07/24 04/07/24 History insulin human U-100 NPH-regulr 60 unit SQ HS 04/07/24 04/07/24 History 70-30 mix 100 unit/mL subcutaneous susp (Novolin 70/30 U-100 Insulin) insulin human U-100 NPH-regulr 100 unit SQ DAILY 04/07/24 04/07/24 History 70-30 mix 100 unit/mL subcutaneous susp (Novolin 70/30 U-100 Insulin) levofloxacin 500 mg tablet 500 mg PO DAILY #5 tabs 04/07/24 Rx sacubitril 97 mg-valsartan 103 mg 1 tab PO BID 04/07/24 04/07/24 History tablet (Entresto) semaglutide 2 mg/dose (8 mg/3 mL) 2 mg SQ WEEKLY 04/07/24 04/07/24 History subcutaneous pen injector (Ozempic) spironolactone 25 mg tablet 25 mg PO DAILY 04/07/24 04/07/24 History torsemide 20 mg tablet 20 mg PO BIDP PRN Edema 04/07/24 04/07/24 History New Prescriptions to Start Prescriptions: levoRogelio Modi Allergies Allergy/AdvReac Type Severity Reaction Status Date / Time metoclopramide [From REGLAN] Allergy Mild SHAKES Verified 10/21/23 08:57 Discharge Plan Disposition Patient Disposition: Home Health Service Condition: Fair Discharge Order Discharge Orders: Discharge Order (Routine); Ordered 04/07/24 Ordered By: Rogelio Valentin Follow up Plan Follow up with: Rad Galvan MD [Primary Care Provider] - 04/12/24 11:15 am Prescriptions/Medication Reconciliation: New levofloxacin 500 mg tablet 500 mg PO DAILY Qty: 5 0RF Continued gabapentin 800 mg tablet 800 mg PO TID loratadine 10 mg tablet 10 mg PO DAILY Patient Comments: TAKE ONE TABLET BY MOUTH EVERY DAY omega 3-tla-ekx-fish oil 300-1,000 mg capsule,delayed release(DR/EC) 1 cap PO BID Patient Comments: TAKE 1 CAPSULE BY MOUTH TWICE DAILY --- BUYS OTC BOTTLE TO PUT IN BASKET --- bisoprolol fumarate 10 mg tablet 20 mg PO HS rivaroxaban 20 mg tablet 20 mg PO DAILY Qty: 90 1RF Hold Instructions: Resume on 05/22/23. atorvastatin 10 MG tablet 10 mg PO DAILY tramadol 50 MG tablet 50 mg PO BIDP PRN (Reason: Mild Pain (Scale Score 1-4)) pantoprazole 40 MG tablet,delayed release (DR/EC) 40 mg PO BID phenobarbital 32.4 MG tablet 97.2 mg PO HS magnesium oxide 250 MG tablet 250 mg PO DAILY Novolin 70/30 U-100 Insulin 100 unit/mL (70-30) suspension 100 unit SQ DAILY Novolin 70/30 U-100 Insulin 100 unit/mL (70-30) suspension 60 unit SQ HS allopurinol 100 mg tablet 100 mg PO DAILY Patient Comments: TAKE ONE TABLET BY MOUTH EVERY DAY bisoprolol fumarate 10 mg tablet 10 mg PO DAILY Patient Comments: TAKE ONE TABLET BY MOUTH EVERY MORNING AND TAKE TWO TABLETS EVERY EVENING cyclobenzaprine 5 mg tablet 5 mg PO TIDP PRN (Reason: Muscle Spasm) Patient Comments: TAKE ONE TABLET BY MOUTH THREE TIMES DAILY NEEDED FOR MUSCLE SPASMS MAY CAUSE DROWSINESS Ozempic 2 mg/dose (8 mg/3 mL) pen injector 2 mg SQ WEEKLY Patient Comments: INJECT 2 MG SUBCUTANEOUSLY ONCE A WEEK DIRECTED digoxin 125 MCG tablet 125 mcg PO DAILY ropinirole 2 MG tablet 2 mg PO HS Held Entresto 97-103 mg tablet 1 tab PO BID Hold Instructions: Resume on 04/09/24. Patient Comments: TAKE ONE TABLET BY MOUTH TWICE DAILY torsemide 20 mg tablet 20 mg PO BIDP PRN (Reason: Edema) Hold Instructions: Resume on 04/09/24. spironolactone 25 mg tablet 25 mg PO DAILY Hold Instructions: Resume on 04/09/24. Problem Reconciliation Problems Reviewed?: Yes Patient Discharge Instructions ACTIVITY: Ambulate as tolerated DIET: continue same diet Patient Instructions: DI for Acute Kidney Injury Providers Primary Care Provider: Rad Galvan Admit Provider: Rogelio Valentin Attending Provider: Rogelio Valentin
--- NOTE | 2024-04-08 15:32 | CARE MANAGER ---
Contacted patient related to hospital discharge. Patient is very unhappy. She states that she didn't know that her medications wouldn't be covered since she was in observation until the next morning which was aggravating. She states she was discharged in the same condition in which she was admitted and felt like she was being rushed out . She reports they didn't give her any new medication for the pain. We discussed that she does have an appointment with pain management. We also discussed following up with PCP to address the muscle relaxers he prescribed not working. Apologized profusely that she felt that her experience was bad and will share this information with those that it involves. JANET Price
== END 2024-04-07 12:30 | disposition home health service (06) ==
LOC: ER 22:13 → 2ND 22:43
PROVIDERS: Nurse Practitioner Acute Care; Physician Assistant; Admitting Provider Internal Medicine; Emergency Provider Emergency Medicine; PCP Family Medicine; Visit Provider Internal Medicine
DX: M79.2 Neuralgia and neuritis, unspecified (principal); N17.9 Acute kidney failure, unspecified; N18.9 Chronic kidney disease, unspecified; E11.22 Type 2 diabetes mellitus with diabetic chronic kidney disease; Z79.4 Long term (current) use of insulin; I50.42 Chronic combined systolic (congestive) and diastolic (congestive) heart failure; N30.00 Acute cystitis without hematuria; Z79.899 Other long term (current) drug therapy; Z79.85 Long-term (current) use of injectable non-insulin antidiabetic drugs; Z95.0 Presence of cardiac pacemaker; E11.40 Type 2 diabetes mellitus with diabetic neuropathy, unspecified; I13.0 Hypertensive heart and chronic kidney disease with heart failure and stage 1 through stage 4 chronic kidney disease, or unspecified chronic kidney disease; E66.01 Morbid (severe) obesity due to excess calories; Z68.41 Body mass index [BMI] 40.0-44.9, adult
CPT/HCPCS: 36415; 71045; 80048; 80053; 81001; 82306; 82550; 82607; 82746; 82962; 83735; 83880; 84443; 85007; 85025; 85651; 86140; 87086; 87088; 87186; 97162; 97165; 99285; G0378; J0131; J0696

== ENCOUNTER 2024-04-16 08:50 | Outpatient (POV) | payer MEDICARE, SELFPAY ==
--- NOTE | 2024-04-16 09:28 | A.OFFVIS_ITS ---
HPI Data of Consult Patient: new to practice Consult date: 04/16/24 Requesting Physician: Aminata Christine APRN Primary Care Provider: Rad Galvan MD Consult Narrative Reason for consult: Low back pain, right leg pain History of present illness: Ms. Edwards is a 68 year old female who presents today as a new patient. She is a referral from Dr. Galvan's office. Today she rates her pain an 8 out of 10. Patient states the last months she has had increased pain that initially started around her right toe and progressively went all the way up her entire right extremity to her low back. She does describe this as an aching sensation with numbness and does interfere with her ability to perform activities of daily living. She states that she has a lot of weakness now in this entire extremity and frequently it will give out. Patient states she is now having to rely on a cane due to the worsening pain and stumbling. Patient states that she has not had any specific trauma or injury that initially started this symptoms. She has tried olmr-van-caillrs Tylenol along with heat and ice and topicals with minimal relief. Patient does state that she has diabetic peripheral neuropathy that may also be playing a role. Patient denies any surgery or injection history. Patient also denies any recent physical therapy. She does state that she does routine exercise at home and stretching with minimal improvement over the last 4 weeks. Patient does have a defibrillator in place as well as another implant on the right side that she states is for to improve her energy. She is prescribed tramadol and gabapentin, phenobarbital and Flexeril from her PCP. Her Neil has been reviewed. CC: Aminata Christine APRN [facility] Disclaimer: The information contained in this section may have been updated after the patient was seen, as this information can be updated by other users. Medical History Cardiac defibrillator in situ SOB (shortness of breath) on exertion HLD (hyperlipidemia) Anxiety Tachycardia Surgical History History of colonoscopy History of tonsillectomy History of cholecystectomy History of appendectomy History of automatic internal cardiac defibrillator (AICD) History of implanted electronic device Cardiac contractility modulator implant (IMPULSE) SEP 2022 Family History Other Family history of COPD (chronic obstructive pulmonary disease) Family history of cancer Family history of cardiac arrhythmia Family history of diabetes mellitus type II Family history of hypothyroidism Family history of myocardial infarction Social History Smoking Status: Never smoker alcohol intake: never counseling provided: none substance use type: denies use current occupational status: retired Travel in the last 8 weeks: None household members: family housing: house lives independently: Yes marital status: single education level: high school current occupational exposures/hazards: No caffeine: No do you feel safe at home: Yes victim of physical abuse: No victim of emotional abuse: No victim of sexual abuse: No would you like helpful sources: No Review of Systems Review of Systems Review of systems:: pertinent systems reviewed and negative unless documented below Review of systems (narrative): Review of Systems: General: No recent weight changes, no fever, no sleep disturbances Respiratory: No cough, no shortness of air, no recurring pulmonary infections Cardiovascular/peripheral vascular: No chest pain, no palpitations, no edema, no shortness of breath Gastrointestinal: No new onset incontinence, normal bowel movements reported Genitourinary: No new onset incontinence Musculoskeletal: Low back pain, right leg pain Psychiatric: [Normal mood/affect] Neurological: [Denies weakness in extremities], [denies balance issues] Meds Home Medications and Allergies Home Medications Medication Instructions Recorded Confirmed Type atorvastatin 10 mg tablet 10 mg PO DAILY 12/03/17 04/20/24 History pantoprazole 40 mg tablet,delayed 40 mg PO BID 12/03/17 04/20/24 History release tramadol 50 mg tablet 50 mg PO BIDP PRN Mild Pain (Scale 12/03/17 04/20/24 History Score 1-4) loratadine 10 mg tablet 10 mg PO DAILY 12/21/19 04/20/24 History omega 8-mzj-lgw-fish oil 300 1 cap PO BID 12/21/19 04/20/24 History mg-1,000 mg capsule,delayed release phenobarbital 32.4 mg tablet 97.2 mg PO HS 02/12/20 04/20/24 History digoxin 125 mcg (0.125 mg) tablet 125 mcg PO DAILY 03/27/20 04/20/24 History ropinirole 2 mg tablet 2 mg PO HS 03/28/20 04/20/24 History magnesium oxide 250 mg PO DAILY 06/13/20 04/20/24 History bisoprolol fumarate 10 mg tablet 20 mg PO HS 02/08/21 04/20/24 History gabapentin 800 mg tablet 800 mg PO TID 02/26/21 04/20/24 History rivaroxaban 20 mg tablet 20 mg PO DAILY Blood thinner #90 12/29/23 04/20/24 Rx tabs allopurinol 100 mg tablet 100 mg PO DAILY 04/07/24 04/20/24 History bisoprolol fumarate 10 mg tablet 10 mg PO DAILY 04/07/24 04/20/24 History cyclobenzaprine 5 mg tablet 5 mg PO TIDP PRN Muscle Spasm 04/07/24 04/20/24 History insulin human U-100 NPH-regulr 60 unit SQ HS 04/07/24 04/20/24 History 70-30 mix 100 unit/mL subcutaneous susp (Novolin 70/30 U-100 Insulin) insulin human U-100 NPH-regulr 100 unit SQ DAILY 04/07/24 04/20/24 History 70-30 mix 100 unit/mL subcutaneous susp (Novolin 70/30 U-100 Insulin) levofloxacin 500 mg tablet 500 mg PO DAILY #5 tabs 04/07/24 04/20/24 Rx semaglutide 2 mg/dose (8 mg/3 mL) 2 mg SQ WEEKLY 04/07/24 04/20/24 History subcutaneous pen injector (Ozempic) spironolactone 25 mg tablet 25 mg PO DAILY 04/07/24 04/20/24 History torsemide 20 mg tablet 20 mg PO BIDP PRN Edema 04/07/24 04/20/24 History sacubitril 49 mg-valsartan 51 mg 1 tab PO BID #60 tabs 04/20/24 04/20/24 Rx tablet (Entresto) New Prescriptions to Start Prescriptions: Allergies Allergy/AdvReac Type Severity Reaction Status Date / Time metoclopramide [From REGLAN] Allergy Mild SHAKES Verified 04/20/24 08:31 Objective Narrative: Physical Exam: General: Alert and oriented x3, no acute distress, pleasant and cooperative Lungs: Respirations even and unlabored, symmetrical chest expansion Eyes: PERRL Musculoskeletal: Flexion and extension of lumbar [spine] somewhat guarded secondary to pain, [antalgic gait noted] positive right leg raise with decreased sensation to light touch and decreased reflexes Neurological: Speech clear, no gross sensory deficit Additional findings Additional findings: FINDINGS: There is no fracture present. There is no malalignment. There are mild hypertrophic changes of degenerative disc disease from L2-3 through L3-4. IMPRESSION: No acute process. Reviewed, Interpreted and Dictated by J Carlos Foote MD Transcribed by Roberta Acuna Authenticated and [facility] Assessment and Plan *Assessment and plan (1) Diabetic peripheral neuropathy: Status: Acute Category: Medical Code(s): E11.42 - Type 2 diabetes mellitus with diabetic polyneuropathy (2) Right leg pain: Status: Acute Category: Medical Code(s): M79.604 - Pain in right leg (3) Low back pain: Status: Acute Qualifiers: Back pain laterality: right Chronicity: acute Sciatica presence: without sciatica Qualified Code(s): M54.50 - Low back pain, unspecified Category: Medical Code(s): M54.50 - Low back pain, unspecified Plan Patient is experiencing worsening pain in her low back with radiating symptoms down her entire right extremity with numbness and tingling. Patient did have limited range of motion of her lumbar spine and a positive right leg raise during today's visit. I have discussed with the patient that she may benefit from a right transforaminal epidural steroid injection. Risk and benefits were discussed with the patient and she would like to proceed forward with this plan of care. Patient is currently on blood thinner and we will reach out to Dr. Armstrong's office to confirm that she can stop this medication prior to this injection. Patient has tried and failed conservative therapy including at home exercising and stretching for longer than 4 weeks. Patient will also be ordered x-ray and CT without contrast of her lumbar spine. Patient is agreeable to this plan of care. Patient will be scheduled for a right transforaminal epidural steroid injection L4-L5 and L5-S1 under fluoroscopy. Patient has been instructed to contact the clinic with any concerns before the next appointment. Dr. Garcia has reviewed this note and agrees with this plan of care. This note was dictated using voice recognition software and make contain errors or omissions.
--- NOTE | 2024-04-16 10:26 | XR_ITS ---
FINAL REPORT TECHNIQUE: 5 views CLINICAL HISTORY: LBP,RT LEG PAIN FINDINGS: There is no fracture present. There is no malalignment. There are mild hypertrophic changes of degenerative disc disease from L2-3 through L3-4. IMPRESSION: No acute process. Reviewed, Interpreted and Dictated by J Carlos Foote MD Transcribed by Roberta Acuna Authenticated and . [facility]
[2024-04-16 10:29] VITALS: BP 100/73; PULSE 79; RESP 18; O2SAT 97; BMI 39.6
== END 2024-04-16 23:59 | disposition home or self-care (01) ==
PROVIDERS: PCP Family Medicine; Visit Provider Nurse Practitioner Family
DX: E11.42 Type 2 diabetes mellitus with diabetic polyneuropathy (principal); M79.604 Pain in right leg; M54.50 Low back pain, unspecified
CPT/HCPCS: 72110; 99202; G0463

== ENCOUNTER 2024-05-10 09:23 | Outpatient (CLI) | payer MEDICARE, SELFPAY ==
[2024-05-10 09:53] LABS: Basophils # 0.1 K/mm3 (0-0.2); Basophils % 0.6 % (0.1-2.0); Eosinophils # 0.3 K/mm3 (0.0-0.4); Eosinophils % 3.7 % (0.1-12.0); Hematocrit 38.4 % (37.0-47.0); Hemoglobin 12.4 g/dL (12.2-16.2); Lymphocytes # 2.1 K/mm3 (0.7-4.5); Lymphocytes % 23.1 % (10-50); Mean Corpuscular HGB Conc 32.2 g/dL (31.8-35.4); Mean Corpuscular Hemoglobin 35.8 pg (27.0-31.2); Mean Corpuscular Volume 111.3 fl (81-99); Mean Platelet Volume 8.1 fl (7.4-10.4); Monocytes # 0.6 K/mm3 (0.1-1.0); Monocytes % 6.4 % (1.7-9.3); Neutrophils # 5.9 K/mm3 (1.8-7.8); Neutrophils % 66.2 % (37.0-80.0); Platelet Count 218 K/mm3 (142-424); Red Blood Count 3.45 M/mm3 (4.20-5.40); Red Cell Distribution Width 15.7 % (11.5-17.5); White Blood Count 8.9 K/mm3 (4.8-10.8)
--- NOTE | 2024-05-10 09:53 | CT_ITS ---
FINAL REPORT CLINICAL HISTORY: LBP W/RT LEG PAIN COMPARISON: CT abdomen pelvis 09/11/2020 FINDINGS: CT LUMBAR SPINE Thin section noncontrast axial CT with sagittal reconstructions There is chronic mild superior endplate compression fracture at T12. No lumbar fracture is identified. Alignment is normal. T12-L1: Minimal endplate spurring without canal stenosis. L1-L2: No significant disc disease is present. There is no canal stenosis. L2-L3: Mild annular disc bulge. Moderate facet arthropathy. Borderline central canal stenosis. L3-L4: Moderate annular disc bulge and facet arthropathy. Mild central canal stenosis. Moderate neuroforaminal narrowing. L4-L5: Mild annular disc bulge. Advanced facet arthropathy. Moderate central canal stenosis. Moderate right and severe left neuroforaminal narrowing. L5-S1: Questionable small right paracentral disc protrusion with mass effect on the thecal sac. Moderate facet arthropathy. IMPRESSION: Questionable disc protrusion at L5-S1 resulting in mass effect on the right S1 nerve root. Degenerative canal stenosis and neuroforaminal narrowing as described. This study was performed using automated techniques to achieve radiation exposure as low as reasonably achievable Reviewed, Interpreted and Dictated by Julian Graves MD Transcribed by Prabha To Authenticated and [facility]
[2024-05-10 11:44] LABS: Chloride 100 mmol/L (98-107); Sodium 138 mmol/L (136-145)
[2024-05-10 11:45] LABS: Potassium 4.5 mmoL/L (3.5-5.1)
[2024-05-10 11:47] LABS: Alanine Aminotransferase 35 U/L (12-78); Albumin Level 4.1 g/dl (3.5-5.0); Alkaline Phosphatase 187 U/L (38-126); Anion Gap 12.5 mEq/L (5-15); Aspartate Amino Transferase 48 U/L (14-36); Bilirubin,Direct 0.1 mg/dl (0.0-0.4); Bilirubin,Indirect 0.3 mg/dL (0.0-0.9); Bilirubin,Total 0.4 mg/dl (0.2-1.3); Bilirubin,Unconjugated 0.4 mg/dL (0.0-1.1); Blood Urea Nitrogen 38 mg/dl (7-17); Carbon Dioxide 30 mmol/L (22.0-30.0); Cholesterol 103 mg/dl (140-200); Estimated Glomerular Filt Rate 35 ml/min (>60); GFR (African American) 42 ML/MIN (>60); Total Protein,Serum 7.1 g/dl (6.3-8.2); Triglycerides 208 mg/dl (30-150); VLDL Cholesterol 42 mg/dL (0-40)
[2024-05-10 11:48] LABS: Calcium 9.4 mg/dl (8.4-10.2); Chol/HDL Ratio 2.6 (1-3.5); HDL Cholesterol 40 mg/dl (40-60); Magnesium 1.7 mg/dl (1.6-2.3)
[2024-05-10 11:59] LABS: Direct LDL Cholesterol 38.14 mg/dL (100-129)
[2024-05-10 12:18] LABS: Thyroid Stimulating Hormone 1.31 uIU/mL (0.465-4.68)
[2024-05-10 13:05] LABS: Glucose 41 mg/dl (74-100)
== END 2024-05-10 23:59 | disposition home or self-care (01) ==
PROVIDERS: Internal Medicine; PCP Family Medicine; Visit Provider Nurse Practitioner Family
DX: R42 Dizziness and giddiness (principal); I50.20 Unspecified systolic (congestive) heart failure; I95.9 Hypotension, unspecified; M54.50 Low back pain, unspecified; M79.604 Pain in right leg
CPT/HCPCS: 36415; 72131; 80048; 80061; 80076; 83735; 84439; 84443; 85025

== ENCOUNTER 2024-05-11 13:33 | Day surgery (SDC) | payer MEDICARE, SELFPAY ==
[2024-05-11 13:54] VITALS: BP 132/60; PULSE 65; RESP 18; O2SAT 98; BMI 39.0
[2024-05-11] MEDS: LIDOCAINE 1% 5ML PF VIAL 5 ML (13:56)
[2024-05-11 13:57] VITALS: BP 129/52; PULSE 72; RESP 18; O2SAT 95
[2024-05-11 13:58] VITALS: BP 129/52; PULSE 66; RESP 18; O2SAT 96
[2024-05-11] MEDS: IOPAMIDOL-200 (41%);10ML VIAL 10 ML IV (14:03)
--- NOTE | 2024-05-11 14:04 | EXP.PAIN.PRO ---
Procedure Date: 05/11/24 Time: 13:50 Anesthesiologist:: Iglesia Mason CRNA Complications:: None Pre-procedure Diagnosis:: Degenerative disc lumbar spine involved. Lumbar radiculopathy. Lumbar disc bulge L4-5, L5-S1. Lumbar radiculopathy. Post-procedure Diagnosis:: Same. Indications for Procedure:: Patient very pleasant 69-year-old female comes our clinic today for right transforaminal L4-5, L5-S1 epidural steroid injection. Patient reports right low lumbar back pain. Right hip and leg pain. She rates her pain 6/10. Procedure Details:: Details of the procedure explained to the patient. The patient was taken to procedure room placed in the prone position. The area over the lumbar spine was cleansed using chlorhexidine as a cleansing solution. Using fluoroscopy guidance markers were placed over the right border of the L4-5 and L5-S1 vertebral body. At each marker the skin and subcutaneous tissue was anesthetized using 1% lidocaine and a 25-gauge needle. At this time using fluoroscopy guidance 3 and half inch 22-gauge spinal needle was used to access the upper one third of the L4 for 5 and L5-S1 foramen. Using fluoroscopy guidance in the lateral position needle position was confirmed using 0.5 mL of contrast dye. Good spread was noted in the epidural space at each level. After negative aspiration 2 mL of 1% lidocaine and 40 mg of Depo-Medrol was injected at each level. Patient tolerated procedure without difficulty. There are no complications. Plan and Disposition:: Patient was discharged without incident.
[2024-05-11 14:10] VITALS: BP 137/50; PULSE 69; RESP 18; O2SAT 97
== END 2024-05-11 14:11 | disposition home or self-care (01) ==
PROVIDERS: PCP Family Medicine; Visit Provider Nurse Anesthetist, Certified Registered
DX: M51.16 Intervertebral disc disorders with radiculopathy, lumbar region (principal); M51.26 Other intervertebral disc displacement, lumbar region
CPT/HCPCS: 64483; 64484; J1010; Q9966

== ENCOUNTER 2024-05-21 07:54 | Outpatient (CLI) | payer MEDICARE, SELFPAY ==
--- NOTE | 2024-05-21 07:55 | CA_ITS ---
APPROVED REPORT EXAM: Comprehensive 2D, Doppler, and color-flow Echocardiogram Ge[employer] System Installer: Chika Frederick RDCS Ht: 5 ft 5 in Wt: 200lbs BSA: 1.98 BP: 103/52 mmHg Indications: CM,AF,CAD,PP,SOA TDS M-Mode Dimensions RVDd 3.09 cm (0.9-2.6) LA Diam 4.62 cm (1.9-4.0) LVDd 6.30 cm (3.5-5.7) LVDs 5.76 cm (3.5-5.7) IVSd 0.47 cm (0.6-1.1) PWd 0.52 cm (0.6-1.1) EF (Teich) 18.50% FS 8.60% EDV (Teich) 201.20 mL ESV (Teich) 163.90 mL LV Diastology E Decel Time 207 (160-240 msec) E/A Ratio 8.5 Mitral Valve MV E Max Sourav. 94.0 (40-130 cm/s) MV A Velocity 11.0 (40-130 cm/s) E/A Ratio 8.71 MV PHT 61.0 ms Tricuspid Valve TR P. Velocity 240.00 cm/s RAP Estimate 10.00 mmHg RVSP 33.10 mmHg Left Ventricle The left ventricle is normal size. The left ventricular systolic function is mildly to moderately reduced. There is increased LV wall thickness. Septum is asynchronous. Regional wall motion cannot be accurately determined in the setting of technically difficult imaging. Grade 1 diastolic dysfunction. LVEF is 40%. Right Ventricle Right ventricle is moderately dilated. Right ventricle is moderately hypokinetic. Device lead is present in the right ventricle. Atria Left atrium is severely dilated. Right atrium is severely dilated. There is no Doppler evidence of interatrial shunt. Aortic Valve Aortic valve leaflets are mildly thickened. There is no aortic valvular stenosis. No aortic regurgitation is present. Mitral Valve The mitral valve leaflets are mildly thickened. No evidence of mitral valve stenosis. Mild mitral regurgitation. Tricuspid Valve The tricuspid valve leaflets are thin and pliable. Mild to moderate tricuspid regurgitation. RVSP is 20-25 mmHg. Pulmonic Valve The pulmonary valve is normal in structure. Trace pulmonic regurgitation. Great Vessels The aortic root is normal in size. The ascending aorta is not well-visualized. IVC is normal in size and collapses >50% with inspiration. Other Information Study Quality: Technically Difficult Conclusion Technically difficult study due to poor acoustic windows. Mild to moderate reduction in LV systolic function (LVEF 40%). Moderate RV dilation with moderate reduction in RV function. Severe biatrial dilation. Mild MR. Mild to moderate TR. The setting of technically difficult imaging, future TTE's are suggested with ultrasound enhancing agent to better delineate the LV endocardial borders. Electronically signed by : Natalia Oviedo MD 05/25/2024 12:33:11
== END 2024-05-21 23:59 | disposition home or self-care (01) ==
LOC: RT 07:55
PROVIDERS: PCP Family Medicine; Visit Provider Nurse Practitioner Family
DX: I42.8 Other cardiomyopathies (principal); I25.118 Atherosclerotic heart disease of native coronary artery with other forms of angina pectoris
CPT/HCPCS: 93306

== ENCOUNTER 2024-05-21 08:41 | Emergency (ER) | payer MEDICARE, SELFPAY ==
[2024-05-21 08:42] VITALS: BP 106/61; PULSE 66; RESP 16; TEMP 36.6; O2SAT 93; BMI 38.8
[2024-05-21 09:00] VITALS: BP 116/44; PULSE 69; O2SAT 95
--- NOTE | 2024-05-21 09:00 | PC.NURSE ---
Patient provided a meal tray.
--- NOTE | 2024-05-21 09:04 | PC.NURSE ---
dr oliver at bedside
--- NOTE | 2024-05-21 09:05 | ED_ITS ---
Discharge Plan Disposition Patient Disposition: Home, Self-Care Condition: Good Prescriptions Prescriptions: No Action gabapentin 800 mg tablet 800 mg PO TID Entresto 24-26 mg tablet 1 tab PO BID Qty: 60 2RF loratadine 10 mg tablet 10 mg PO DAILY Patient Comments: TAKE ONE TABLET BY MOUTH EVERY DAY omega 9-twt-qrs-fish oil 300-1,000 mg capsule,delayed release(DR/EC) 1 cap PO BID Patient Comments: TAKE 1 CAPSULE BY MOUTH TWICE DAILY --- BUYS OTC BOTTLE TO PUT IN BASKET --- nitroglycerin 0.4 mg tablet, sublingual See Rx Instructions .ROUTE .COMPLEX PRN (Reason: Chest Pain) Patient Comments: DISSOLVE 1 TABLET UNDER THE TONGUE EVERY 5 MINUTES NEEDED FOR CHEST PAIN. DO NOT EXCEED A TOTAL OF 3 DOSES IN 15 MINUTES. IF NO RELIEF AFTER 3 DOSES CALL 911/GO TO ER Rx Instructions: 0.4 mg sublingually as needed fluticasone propionate 50 mcg/actuation spray,suspension See Rx Instructions .ROUTE .COMPLEX Patient Comments: INSTILL 2 SPRAYS INTO EACH NOSTRIL DAILY DIRECTED BY PROVIDER Rx Instructions: 50 mcg intranasally diclofenac sodium 1 % gel 4 g topical QID PRN (Reason: pain ) 30 Days Qty: 100 2RF Rx Instructions: apply to single, ankle, foot; for foot includes sole/toes/top of foot duloxetine 30 mg capsule,delayed release(DR/EC) 30 mg PO DAILY Patient Comments: TAKE ONE CAPSULE BY MOUTH EVERY DAY rivaroxaban 20 mg tablet 20 mg PO DAILY Qty: 90 1RF Hold Instructions: Resume on 05/22/23. atorvastatin 10 MG tablet 10 mg PO DAILY tramadol 50 MG tablet 50 mg PO BIDP PRN (Reason: Mild Pain (Scale Score 1-4)) pantoprazole 40 MG tablet,delayed release (DR/EC) 40 mg PO BID phenobarbital 32.4 MG tablet 97.2 mg PO HS magnesium oxide 250 MG tablet 250 mg PO DAILY Novolin 70/30 U-100 Insulin 100 unit/mL (70-30) suspension 100 unit SQ DAILY Novolin 70/30 U-100 Insulin 100 unit/mL (70-30) suspension 60 unit SQ HS allopurinol 100 mg tablet 100 mg PO DAILY Patient Comments: TAKE ONE TABLET BY MOUTH EVERY DAY bisoprolol fumarate 10 mg tablet 10 mg PO DAILY Patient Comments: TAKE ONE TABLET BY MOUTH EVERY MORNING AND TAKE TWO TABLETS EVERY EVENING cyclobenzaprine 5 mg tablet 5 mg PO TIDP PRN (Reason: Muscle Spasm) Patient Comments: TAKE ONE TABLET BY MOUTH THREE TIMES DAILY NEEDED FOR MUSCLE SPASMS MAY CAUSE DROWSINESS Ozempic 2 mg/dose (8 mg/3 mL) pen injector 2 mg SQ WEEKLY Patient Comments: INJECT 2 MG SUBCUTANEOUSLY ONCE A WEEK DIRECTED torsemide 20 mg tablet 20 mg PO BIDP PRN (Reason: Edema) Hold Instructions: Resume on 04/09/24. spironolactone 25 mg tablet 25 mg PO DAILY Hold Instructions: Resume on 04/09/24. digoxin 125 MCG tablet 125 mcg PO DAILY ropinirole 2 MG tablet 2 mg PO HS Referrals Follow up/Referrals: Rad Galvan MD [Primary Care Provider] - See instructions Activity Restrictions/Add. Instructions Additional Instructions/Restrictions: You were evaluated in the emergency department today. Please closely monitor your blood sugar at home. Do not take your insulin without eating. Follow-up closely with your primary care provider. Return to the emergency department for new or worsening symptoms, such as recurrence of hypoglycemia, fever, or other concerns. Clinical Impressions Clinical Impression: Hypoglycemia Instructions Patient Instructions: How to Check Your Blood Glucose, DI for Hypoglycemia Discharge ED Provider: Aminata Lopez General Adult HPI General Chief complaint: Hyper/Hypoglycemia Stated complaint: possible low blood sugar Time Seen by Provider: 05/21/24 08:45 Mode of Arrival: Wheelchair Source of Information: Patient Limitations: No Limitations Description of Symptoms (Recalled from ER Triage Doc. by RN): Patient states she took her insulin this morning and now while getting her echo this morning she began to get shaky and felt as if her blood sugar had dropped. Upon arrival to ER her FS was 47. [place] juice given and a meal tray given. History of Present Illness HPI narrative: This patient is a 69-year-old female with a history of insulin-dependent diabetes, hypertension, hyperlipidemia, CAD, atrial fibrillation, cardiomyopathy, renal insufficiency, and pulmonary hypertension presenting to the emergency department for evaluation with concern for low blood sugar. Patient reports that she was supposed to have labs drawn here this morning in a fasting state. She took her home medications this morning as prescribed, including 100 units of insulin. She did not eat since she supposed to have test done. Once at the hospital, she started to get very lightheaded and shaky as if her blood sugar had dropped. Fingerstick blood glucose upon arrival was 47. Patient states she is otherwise been well and in her usual state of health. No recent complaints of fever, urinary symptoms, cough, congestion, chest pain, abdominal pain, or other concerns. Related Data Home Medications Medication Instructions Recorded Confirmed atorvastatin 10 mg tablet 10 mg PO DAILY 12/03/17 05/11/24 pantoprazole 40 mg tablet,delayed 40 mg PO BID 12/03/17 05/11/24 release tramadol 50 mg tablet 50 mg PO BIDP PRN Mild Pain (Scale 12/03/17 05/11/24 Score 1-4) loratadine 10 mg tablet 10 mg PO DAILY 12/21/19 05/11/24 omega 0-xbd-hok-fish oil 300 1 cap PO BID 12/21/19 05/11/24 mg-1,000 mg capsule,delayed release phenobarbital 32.4 mg tablet 97.2 mg PO HS 02/12/20 05/11/24 digoxin 125 mcg (0.125 mg) tablet 125 mcg PO DAILY 03/27/20 05/11/24 ropinirole 2 mg tablet 2 mg PO HS 03/28/20 05/11/24 magnesium oxide 250 mg PO DAILY 06/13/20 05/11/24 gabapentin 800 mg tablet 800 mg PO TID 02/26/21 05/11/24 allopurinol 100 mg tablet 100 mg PO DAILY 04/07/24 05/11/24 bisoprolol fumarate 10 mg tablet 10 mg PO DAILY 04/07/24 05/11/24 cyclobenzaprine 5 mg tablet 5 mg PO TIDP PRN Muscle Spasm 04/07/24 05/11/24 insulin human U-100 NPH-regulr 60 unit SQ HS 04/07/24 05/11/24 70-30 mix 100 unit/mL subcutaneous susp (Novolin 70/30 U-100 Insulin) insulin human U-100 NPH-regulr 100 unit SQ DAILY 04/07/24 05/11/24 70-30 mix 100 unit/mL subcutaneous susp (Novolin 70/30 U-100 Insulin) semaglutide 2 mg/dose (8 mg/3 mL) 2 mg SQ WEEKLY 04/07/24 05/11/24 subcutaneous pen injector (Ozempic) spironolactone 25 mg tablet 25 mg PO DAILY 04/07/24 05/11/24 torsemide 20 mg tablet 20 mg PO BIDP PRN Edema 04/07/24 05/11/24 fluticasone propionate 50 See Rx Instructions .Route .COMPLEX 04/26/24 05/11/24 mcg/actuation nasal spray,suspension nitroglycerin 0.4 mg sublingual See Rx Instructions .Route 04/26/24 05/11/24 tablet .COMPLEX PRN Chest Pain duloxetine 30 mg capsule,delayed 30 mg PO DAILY 05/10/24 05/11/24 release Previous Rx's Medication Instructions Recorded rivaroxaban 20 mg tablet 20 mg PO DAILY Blood thinner #90 12/29/23 tabs diclofenac sodium 1 % topical gel 4 g topical QID PRN pain 30 days 04/26/24 #100 grams sacubitril 24 mg-valsartan 26 mg 1 tab PO BID #60 tabs 05/10/24 tablet (Entresto) Allergies Allergy/AdvReac Type Severity Reaction Status Date / Time metoclopramide [From REGLAN] Allergy Mild SHAKES Verified 05/11/24 13:54 [facility] Disclaimer: The information contained in this section may have been updated after the patient was seen, as this information can be updated by other users. Medical History Dizziness Hypotension HFrEF (heart failure with reduced ejection fraction) Cardiac defibrillator in situ SOB (shortness of breath) on exertion HLD (hyperlipidemia) Anxiety Tachycardia Surgical History History of colonoscopy History of tonsillectomy History of cholecystectomy History of appendectomy History of automatic internal cardiac defibrillator (AICD) History of implanted electronic device Family History Other Family history of COPD (chronic obstructive pulmonary disease) Family history of cancer Family history of cardiac arrhythmia Family history of diabetes mellitus type II Family history of hypothyroidism Family history of myocardial infarction Social History Smoking Status: Never smoker alcohol intake: never counseling provided: none substance use type: denies use current occupational status: retired Travel in the last 8 weeks: None household members: family housing: house lives independently: Yes marital status: single education level: high school current occupational exposures/hazards: No caffeine: No do you feel safe at home: Yes victim of physical abuse: No victim of emotional abuse: No victim of sexual abuse: No would you like helpful sources: No ROS Obtained: Yes All systems reviewed & no additional complaints except as documented Physical Exam General General appearance: alert and in no apparent distress Head Head exam: atraumatic and normocephalic Eye Eye exam: Present normal appearance, PERRL and EOMI ENT ENT exam: Present normal exam, normal oropharynx, mucous membranes moist and normal external ear exam Neck Neck exam: Present normal inspection, full ROM and trachea midline; Absent tenderness Chest Chest inspection: Present normal inspection and symmetric chest wall rise; Absent tenderness Respiratory Respiratory exam: Present normal lung sounds bilaterally; Absent respiratory distress, wheezes, stridor or accessory muscle use Cardiovascular Cardiovascular exam: Present regular rate and normal rhythm Abdominal Exam Abdominal exam: Present soft; Absent distention, tenderness or guarding Extremities Exam Extremities exam: Present normal inspection, full ROM and normal capillary re fill; Absent tenderness or edema Back Exam Back exam: Present normal inspection and full ROM; Absent tenderness Neurological Exam Neurological exam: Present alert, oriented X3, CN II-XII intact and normal gait; Absent motor sensory deficit Psychiatric Psychiatric exam: Present normal affect and normal mood Skin Skin exam: Present warm and dry Medical Decision Making Medical Records Medical records reviewed: Yes I reviewed the patient's medical records. Neil Inquiry Pt receiving controlled substance: No Vital Signs: 05/21/24 08:42 05/21/24 09:00 05/21/24 09:38 Temperature 97.8 F Temperature Source Oral Pulse Rate 69 68 Pulse Rate [Radial] 66 Respiratory Rate 16 Blood Pressure 116/44 L Blood Pressure [Right Arm] 106/61 L Blood Pressure Mean 68 Blood Pressure Mean [Right Arm] 76 Blood Pressure Source Blood Pressure Source [Right Arm] Automatic Cuff Blood Pressure Position Blood Pressure Position [Right Arm] Sitting 02 Sat by Pulse Oximetry 93 L 95 96 Oxygen Delivery Method Room Air Room Air Room Air 05/21/24 10:07 05/21/24 11:45 Temperature 98.0 F Temperature Source Oral Pulse Rate 72 72 Pulse Rate [Radial] Respiratory Rate 16 Blood Pressure 120/77 Blood Pressure [Right Arm] Blood Pressure Mean Blood Pressure Mean [Right Arm] Blood Pressure Source Automatic Cuff Blood Pressure Source [Right Arm] Blood Pressure Position Sitting Blood Pressure Position [Right Arm] 02 Sat by Pulse Oximetry 96 Oxygen Delivery Method Room Air Room Air Lab Data Lab results reviewed: Yes I reviewed the patient's lab results. Lab Results 05/21/24 10:08: Urine Color Yellow, Urine Appearance Clear, Urine pH 6.0, Ur Specific [place] 1.010, Urine Protein Negative, Urine Glucose (UA) Negative, Urine Ketones Negative, Urine Blood Negative, Urine Nitrate Negative, Urine Bilirubin Negative, Urine Urobilinogen 0.2, Ur Leukocyte Esterase Trace, Urine RBC None, Urine WBC 5-10, Ur Squamous Epith Cells 10-20, Urine Bacteria Trace Orders (Tests/Meds): ORDERS Category Date Time Status UA [Urinalysis and Microscopic] Stat Lab 05/21/24 10:08 Completed Medical Decision Narrative: In summary, this patient is a 69-year-old female presenting to the Emergency Department for evaluation of low blood sugar in the setting of insulin use without eating. Ruling out the most morbid conditions drove assessment. I considered obtaining labs to evaluate for potential causes of hypoglycemia, such as infectious etiology or other concerns. I do not feel that this is indicated, as the patient has a clear history of taking her insulin without eating or drinking anything. She is asymptomatic otherwise. She was given orange juice here as well as a meal tray. Will recheck her blood sugar and assess her ability to maintain her blood sugar. If she drops again, will reconsider and obtain more broad workup. At 0900, patient was placed in ED observation status pending serial fingerstick blood glucoses and stabilization of her blood glucose to determine whether or not the patient would be appropriate for discharge versus admission. The patient was provided serial reevaluations and cardiac monitoring while awaiting ultimate disposition. Repeat fingerstick at 09 30 after some oral intake is 60. Will continue to monitor. Repeat fingerstick at 09 50 is 76. Will continue to monitor. Repeat fingerstick at 11 AM if stable in the 90s. Patient remains asymptomatic. Given reassuring exam and improvement in blood sugar after oral intake, I do not feel that other labs or imaging are indicated. I feel the patient is appropriate for discharge home as of 11:30 AM. Total ED observation time was 2 hours and 30 minutes. I had a [id number] visit with the patient when providing discharge instructions. The total time involved in discharging this patient was less than 30 minutes. Critical Care Critical Care Time Critical Care Time: No
[2024-05-21 09:38] VITALS: PULSE 68; O2SAT 96
[2024-05-21 10:07] VITALS: PULSE 72; O2SAT 96
[2024-05-21 10:14] LABS: Microscopic, Urine URINE MICROSCOPIC (MICROSCOPIC)
[2024-05-21 10:30] LABS: Appearance,Urine CLEAR (Clear); Bilirubin,Urine Negative (Negative); Blood, Urine Negative (Negative); Color,Urine YELLOW (Yellow); Glucose,Urine (UA) Negative (Negative); Ketones,Urine Negative (Negative); Leukocyte Esterase,Urine TRACE (Negative); Nitrate,Urine Negative (Negative); Protein,Urine Negative (Negative); Urobilinogen,Urine 0.2 EU/dl (0.2)
--- NOTE | 2024-05-21 10:50 | PC.NURSE ---
rounded on patient; patient given another Starry per request. No other needs at this time. Aware that we are going to check her FSBG at 11AM.
[2024-05-21 11:45] VITALS: BP 120/77; PULSE 72; RESP 16; TEMP 36.7; O2SAT 96
[2024-05-21 12:15] LABS: Bacteria,Urine Trace /lpf
== END 2024-05-21 11:46 | disposition home or self-care (01) ==
PROVIDERS: Emergency Provider Emergency Medicine; PCP Family Medicine
DX: E11.649 Type 2 diabetes mellitus with hypoglycemia without coma (principal); I48.0 Paroxysmal atrial fibrillation; I27.20 Pulmonary hypertension, unspecified; N17.8 Other acute kidney failure; E78.5 Hyperlipidemia, unspecified; I11.9 Hypertensive heart disease without heart failure; I25.10 Atherosclerotic heart disease of native coronary artery without angina pectoris; Z79.4 Long term (current) use of insulin; Z79.85 Long-term (current) use of injectable non-insulin antidiabetic drugs
CPT/HCPCS: 81001; 99283

== ENCOUNTER 2024-06-03 13:39 | Outpatient (CLI) | payer MEDICARE, SELFPAY ==
[2024-06-03 14:32] LABS: Anion Gap 7.2 mEq/L (5-15); Blood Urea Nitrogen 37 mg/dl (7-17); Calcium 8.9 mg/dl (8.4-10.2); Carbon Dioxide 33 mmol/L (22.0-30.0); Chloride 98 mmol/L (98-107); Estimated Glomerular Filt Rate 38 ml/min (>60); GFR (African American) 45 ML/MIN (>60); Glucose 128 mg/dl (74-100); Potassium 4.2 mmoL/L (3.5-5.1); Sodium 134 mmol/L (136-145)
== END 2024-06-03 23:59 | disposition home or self-care (01) ==
LOC: LAB 13:41
PROVIDERS: Nurse Practitioner; PCP Family Medicine; Visit Provider Internal Medicine
DX: I95.2 Hypotension due to drugs (principal); R42 Dizziness and giddiness; I50.20 Unspecified systolic (congestive) heart failure; N28.9 Disorder of kidney and ureter, unspecified; E11.9 Type 2 diabetes mellitus without complications; E78.2 Mixed hyperlipidemia; I11.0 Hypertensive heart disease with heart failure; I20.9 Angina pectoris, unspecified; I42.8 Other cardiomyopathies; I48.11 Longstanding persistent atrial fibrillation; R06.09 Other forms of dyspnea; R53.83 Other fatigue; Z79.4 Long term (current) use of insulin; Z95.810 Presence of automatic (implantable) cardiac defibrillator
CPT/HCPCS: 36415; 80048

== ENCOUNTER 2024-06-09 10:50 | Outpatient (POV) | payer MEDICARE, SELFPAY ==
[2024-06-09 10:58] VITALS: BP 139/56; PULSE 73; RESP 16; O2SAT 98; BMI 39.4
--- NOTE | 2024-06-09 11:22 | EXP.PAIN.SOA ---
[facility] Disclaimer: The information contained in this section may have been updated after the patient was seen, as this information can be updated by other users. Medical History Dizziness Hypotension HFrEF (heart failure with reduced ejection fraction) Cardiac defibrillator in situ SOB (shortness of breath) on exertion HLD (hyperlipidemia) Anxiety Tachycardia Surgical History History of colonoscopy History of tonsillectomy History of cholecystectomy History of appendectomy History of automatic internal cardiac defibrillator (AICD) History of implanted electronic device Cardiac contractility modulator implant (IMPULSE) SEP 2022 Family History Other Family history of COPD (chronic obstructive pulmonary disease) Family history of cancer Family history of cardiac arrhythmia Family history of diabetes mellitus type II Family history of hypothyroidism Family history of myocardial infarction Social History Smoking Status: Never smoker alcohol intake: never counseling provided: none substance use type: denies use current occupational status: other Travel in the last 8 weeks: None household members: family housing: house lives independently: Yes marital status: single education level: high school current occupational exposures/hazards: No caffeine: No do you feel safe at home: Yes victim of physical abuse: No victim of emotional abuse: No victim of sexual abuse: No would you like helpful sources: No PM Subjective & Objective Subjective Subjective:: Patient is a pleasant 69-year-old female who presents today for follow-up of right transforaminal epidural steroid injection L4-L5 and L5-S1. Today she rates her pain a 3 out of 10. Patient denies any new trauma or injury. She does state that she had 100% improvement of her entire right leg symptoms. Patient does states she still has some back pain however it is not as severe. Patient does however state she does continue to have foot and ankle pain on the right side that is like it to faint sensation that does interfere with her sleeping. Patient does overall feel like this injection did significantly help and is still working well. Patient is currently managed with tramadol, gabapentin, phenobarbital and Flexeril from her PCP. Patient did state that she got the compounded cream and it helped some however she did not notice significant improvement around her foot and ankle. Her Neil has been reviewed and is appropriate. Review of Systems: General: No recent weight changes, no fever, no sleep disturbances Respiratory: No cough, no shortness of air, no recurring pulmonary infections Cardiovascular/peripheral vascular: No chest pain, no palpitations, no edema, no shortness of breath Gastrointestinal: No new onset incontinence, normal bowel movements reported Genitourinary: No new onset incontinence Musculoskeletal: Low back pain Psychiatric: [Normal mood/affect] Neurological: [Denies weakness in extremities], [denies balance issues] Pain at rest (0-10 scale): 3 Objective Objective:: Physical Exam: General: Alert and oriented x3, no acute distress, pleasant and cooperative Lungs: Respirations even and unlabored, symmetrical chest expansion Eyes: PERRL Musculoskeletal: Flexion and extension of lumbar [spine] somewhat guarded secondary to pain, [antalgic gait noted] Neurological: Speech clear, no gross sensory deficit Has patient had previous pain injection?: Yes Percent improvement in pain since last injection: 100% Conservative treatment options previously tried: Home exercise plan Length of treatment: Longer than 6 weeks Meds Home Medications and Allergies Home Medications Medication Instructions Recorded Confirmed Type atorvastatin 10 mg tablet 10 mg PO DAILY 12/03/17 06/09/24 History pantoprazole 40 mg tablet,delayed 40 mg PO BID 12/03/17 06/09/24 History release tramadol 50 mg tablet 50 mg PO BIDP PRN Mild Pain (Scale 12/03/17 06/09/24 History Score 1-4) loratadine 10 mg tablet 10 mg PO DAILY 12/21/19 06/09/24 History omega 2-pqe-qay-fish oil 300 1 cap PO BID 12/21/19 06/09/24 History mg-1,000 mg capsule,delayed release phenobarbital 32.4 mg tablet 97.2 mg PO HS 02/12/20 06/09/24 History digoxin 125 mcg (0.125 mg) tablet 125 mcg PO DAILY 03/27/20 06/09/24 History ropinirole 2 mg tablet 2 mg PO HS 03/28/20 06/09/24 History magnesium oxide 250 mg PO DAILY 06/13/20 06/09/24 History gabapentin 800 mg tablet 800 mg PO TID 02/26/21 06/09/24 History rivaroxaban 20 mg tablet 20 mg PO DAILY Blood thinner #90 12/29/23 06/09/24 Rx tabs allopurinol 100 mg tablet 100 mg PO DAILY 04/07/24 06/09/24 History cyclobenzaprine 5 mg tablet 5 mg PO TIDP PRN Muscle Spasm 04/07/24 06/09/24 History semaglutide 2 mg/dose (8 mg/3 mL) 2 mg SQ WEEKLY 04/07/24 06/09/24 History subcutaneous pen injector (Ozempic) spironolactone 25 mg tablet 25 mg PO DAILY 04/07/24 06/09/24 History diclofenac sodium 1 % topical gel 4 g topical QID PRN pain 30 days 04/26/24 06/09/24 Rx #100 grams fluticasone propionate 50 See Rx Instructions .Route .COMPLEX 04/26/24 06/09/24 History mcg/actuation nasal spray,suspension nitroglycerin 0.4 mg sublingual See Rx Instructions .Route 04/26/24 06/09/24 History tablet .COMPLEX PRN Chest Pain duloxetine 30 mg capsule,delayed 30 mg PO DAILY 05/10/24 06/09/24 History release sacubitril 24 mg-valsartan 26 mg 1 tab PO BID #60 tabs 05/10/24 06/09/24 Rx tablet (Entresto) insulin human U-100 NPH-regulr 50 unit SQ HS 05/31/24 06/09/24 History 70-30 mix 100 unit/mL subcutaneous susp (Novolin 70/30 U-100 Insulin) insulin human U-100 NPH-regulr 80 unit SQ DAILY 05/31/24 06/09/24 History 70-30 mix 100 unit/mL subcutaneous susp (Novolin 70/30 U-100 Insulin) torsemide 20 mg tablet 20 mg PO BID Edema 05/31/24 06/09/24 History bisoprolol fumarate 5 mg tablet 5 mg PO DAILY #30 tabs 06/03/24 06/09/24 Rx New Prescriptions to Start Prescriptions: Allergies Allergy/AdvReac Type Severity Reaction Status Date / Time metoclopramide [From REGLAN] Allergy Mild SHAKES Verified 06/03/24 14:46 Assessment and Plan *Assessment and plan (1) Low back pain: Status: Acute Qualifiers: Chronicity: acute Back pain laterality: right Sciatica presence: without sciatica Qualified Code(s): M54.50 - Low back pain, unspecified Category: Medical Code(s): M54.50 - Low back pain, unspecified (2) Right leg pain: Status: Acute Category: Medical Code(s): M79.604 - Pain in right leg (3) Degenerative disc disease, lumbar: Status: Acute Category: Medical Code(s): M51.36 - Other intervertebral disc degeneration, lumbar region (4) Lumbar radiculopathy: Status: Acute Category: Medical Code(s): M54.16 - Radiculopathy, lumbar region (5) Lumbar spinal stenosis: Status: Acute Qualifiers: Neurogenic claudication status: with neurogenic claudication Qualified Code(s): M48.062 - Spinal stenosis, lumbar region with neurogenic claudication Category: Medical Code(s): M48.061 - Spinal stenosis, lumbar region without neurogenic claudication Plan I did review over the patient's CT findings of her lumbar spine. Patient has had significant improvement following her injection and does not require any additional injection therapy at this time. Patient will return to clinic in 1 month for reevaluation of symptoms and plan of care. Patient has been instructed to contact the clinic with any concerns before the next appointment. Dr. Garcia has reviewed this note and agrees with this plan of care. This note was dictated using voice recognition software and make contain errors or omissions.
== END 2024-06-09 23:59 | disposition home or self-care (01) ==
LOC: SC.PAIN 10:50
PROVIDERS: PCP Family Medicine; Visit Provider Nurse Practitioner Family
DX: M54.50 Low back pain, unspecified (principal); M51.36 Other intervertebral disc degeneration, lumbar region; M54.16 Radiculopathy, lumbar region; M48.062 Spinal stenosis, lumbar region with neurogenic claudication
CPT/HCPCS: 99212; G0463

== ENCOUNTER 2024-06-14 11:37 | Outpatient (CLI) | payer MEDICARE, SELFPAY ==
[2024-06-14] VITALS (15 sets, daily range): BP systolic 100–146; BP diastolic 48–76; PULSE 68–73; RESP 16; O2SAT 96–100; BMI 38.7
--- NOTE | 2024-06-14 11:37 | CT_ITS ---
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 A noncontrast coronary calcium scan was performed. A CT attenuation threshold of 130 Hounsfield units (HU) was used for the detection of calcium in contiguous voxels of 1 sq mm in area to be counted as individual lesions. Bolus tracking in the ascending aorta with a threshold of 180 HU was performed. Immediately afterwards, ECG synchronized cardiac CT was then performed from the cardiac base to apex using retrospective gating with ECG tube current modulation. A total of 85 mL of Isovue 370 mg/mL contrast medium was administered at 5 mL/sec followed by a saline flush using a biphasic injection protocol. A tube voltage of 120 KVp was used. The patient received the following medications prior to the cardiac CT. 0.4 mg of sublingual nitroglycerin The average heart rate at the time of acquisition was 54 bpm and regular. Image Reconstruction Transaxial images were reconstructed at 0.67 mm slide thickness. Data was reviewed interactively on an advanced workstation capable of 2 and 3-dimensional displays in all conventional reconstruction formats, including multiplanar reformations, maximum intensity projections, curved multiplanar reformations, and volume rendered reconstructions. When applicable, selected routine images describing the relevant coronary anatomy and pathology were saved and sent to PACS. Complications None Technical Quality Overall image quality was poor due to elevated HR, significant motion, and presence of device artifact. Coronary artery opacification was fair. Total DLP (Dose-Length Product) is 2072.5 mGy-cm. The reported value represents the total of one or more individual components during the CT acquisition of this date and at this time, and as such, the same value may appear in more than one CT report depending on the interpreting/reporting physicians. COMPARISON None FINDINGS CT Coronary Calcium Scoring LMA (Left Main Artery) = 31 LAD (Left Anterior Descending) = 103 LCX (Left Coronary Circumflex) = 251 RCA (Right Coronary Artery) = 249 Total Calcium Score = 634 using the AJ-130 method. The observed calcium score of 634 is at 96th percentile for subjects of the same age, sex, and race/ethnicity. The interpretation of the calcium heart score is based on the following continuum*: 0 = no calcified plaque detected (risk of coronary artery disease is very low ??? less than 5%) 1-10 = calcium detected in extremely minimal levels (risk of coronary diseases is still low ??? less than 10%) 11-100 = mild levels of plaque detected with certainty (mild or minimal narrowing of heart arteries is likely) 101-400 = definite,at least moderate levels of plaque detected (relatively high risk of a heart attack within 3-5 years) >401-999 = extensive levels of plaque detected (high risk of heart attack, high levels of vascular disease are present, high likelihood of at least one significant coronary narrowing) *The calcium heart score quantifies the burden of coronary calcification/plaque in the coronary arteries. The calcium heart score is not able to evaluate the presence or burden of non-calcified (i.e. soft) plaque. There is also identifiable calcification in the ascending and descending thoracic aorta. Coronary CT Angiography The coronary arterial system is right dominant. Quantitative Stenosis Grading: Left Main (LM): The left main originates normally from the left sinus of Valsalva. The LM bifurcates into the left anterior descending artery and left circumflex artery. There is mixed calcified/noncalcified plaque in the distal LM, with indetermina
--- NOTE | 2024-06-14 13:06 | PC.NURSE ---
FSBS: 96
[2024-06-14 13:08] LABS: POC Glucose,Bedside 96 (70-110)
--- NOTE | 2024-06-14 13:13 | PC.NURSE ---
1218- call placed to dr. rush at this time regarding patient procedure and pacemaker status. per MD, we can proceed with CCTA with patient heart rate at 70 and pacemaker on.
== END 2024-06-14 18:30 | disposition home or self-care (01) ==
PROVIDERS: PCP Family Medicine; Visit Provider Internal Medicine
DX: R06.09 Other forms of dyspnea; I48.11 Longstanding persistent atrial fibrillation; I42.0 Dilated cardiomyopathy; Z95.810 Presence of automatic (implantable) cardiac defibrillator
CPT/HCPCS: 75574; 82962; Q9967

== ENCOUNTER 2024-06-17 13:40 | Outpatient (CLI) | payer MEDICARE, SELFPAY ==
[2024-06-17 14:42] LABS: Anion Gap 11.2 mEq/L (5-15); Blood Urea Nitrogen 34 mg/dl (7-17); Calcium 9.3 mg/dl (8.4-10.2); Carbon Dioxide 30 mmol/L (22.0-30.0); Chloride 103 mmol/L (98-107); Estimated Glomerular Filt Rate 45 ml/min (>60); GFR (African American) 54 ML/MIN (>60); Glucose 66 mg/dl (74-100); Potassium 4.2 mmoL/L (3.5-5.1); Sodium 140 mmol/L (136-145)
== END 2024-06-17 23:59 | disposition home or self-care (01) ==
LOC: LAB 13:41
PROVIDERS: PCP Family Medicine; Visit Provider Internal Medicine
DX: I20.89 Other forms of angina pectoris (principal); R42 Dizziness and giddiness; R93.1 Abnormal findings on diagnostic imaging of heart and coronary circulation; I95.2 Hypotension due to drugs; I50.20 Unspecified systolic (congestive) heart failure; I20.9 Angina pectoris, unspecified; E11.9 Type 2 diabetes mellitus without complications; Z79.4 Long term (current) use of insulin
CPT/HCPCS: 36415; 80048

== ENCOUNTER 2024-07-05 08:41 | Day surgery (SDC) | payer MEDICARE, SELFPAY ==
[2024-07-05] VITALS (9 sets, daily range): BP systolic 90–142; BP diastolic 51–64; PULSE 69–73; RESP 16–20; TEMP 36.6; O2SAT 95–98; BMI 39.9
--- NOTE | 2024-07-05 07:09 | IR_ITS ---
APPROVED REPORT Patient Location: Outpatient PROCEDURES Left heart catheterization Left ventriculogram Selective coronary angiogram INDICATION Known coronary artery disease, Abnormal Myoview, Worsening angina pectoris, Informed consent was obtained prior to the procedure. COMPLICATIONS NONE Estimated Blood Loss: LESS THAN 10 ML TECHNIQUE One percent lidocaine used to anesthetize the right anterior aspect of the wrist. The right radial artery was accessed via the Seldinger technique. A 6 Micronesian sheath was placed in the right radial artery. 2.5 mg of Verapamil, 800 mcg of nitroglycerin, 1mg Lidocaine and 5000 U Heparin were given through the arterial sheath. The papa catheter was also used to perform left heart catheterization, left ventriculogram and selective coronary angiogram. At the end of the procedure the sheath was removed good hemostasis was achieved using Traclet band, patient was transferred to the postop holding area in stable condition. ANGIOGRAPHIC RESULTS The left main artery Normal The left anterior descending artery Has proximal 20% stenoses mid vessel 30% stenosis with additional 30% stenosis in the first diagonal artery The circumflex artery Nondominant with proximal 10 to 20% stenoses and 30% stenoses in the first and second obtuse marginal artery The right coronary artery Dominant with proximal 30% stenosis mid vessel diffuse 30% stenoses and distal 20 to 30% stenosis The CORDOVA ventriculogram reveals Normal 60% The left ventricular end-diastolic pressure 20 mmHg IMPRESSION Patent coronary arteries as described above Normal ejection fraction Mildly elevated LVEDP PLAN 1. Medical management with aggressive risk factor modification Electronically signed by : Abhijit Armstrong MD 07/05/2024 14:55:02
[2024-07-05 09:28] LABS: Basophils # 0.1 K/mm3 (0-0.2); Basophils % 0.8 % (0.1-2.0); Eosinophils # 0.2 K/mm3 (0.0-0.4); Eosinophils % 2.3 % (0.1-12.0); Hemoglobin 12.4 g/dL (12.2-16.2); Lymphocytes # 1.5 K/mm3 (0.7-4.5); Lymphocytes % 14.7 % (10-50); Mean Corpuscular HGB Conc 30.9 g/dL (31.8-35.4); Mean Corpuscular Hemoglobin 34.4 pg (27.0-31.2); Mean Corpuscular Volume 111.3 fl (81-99); Mean Platelet Volume 8.4 fl (7.4-10.4); Monocytes # 0.5 K/mm3 (0.1-1.0); Monocytes % 4.9 % (1.7-9.3); Neutrophils # 7.8 K/mm3 (1.8-7.8); Neutrophils % 77.3 % (37.0-80.0); Platelet Count 222 K/mm3 (142-424); Red Blood Count 3.59 M/mm3 (4.20-5.40)
[2024-07-05 09:31] LABS: Anion Gap 11.7 mEq/L (5-15); Blood Urea Nitrogen 33 mg/dl (7-17); Carbon Dioxide 31 mmol/L (22.0-30.0); Chloride 101 mmol/L (98-107); Creatinine Clearance Estimated 63 mL/min (50-200); Estimated Glomerular Filt Rate 41 ml/min (>60); GFR (African American) 49 ML/MIN (>60); Glucose 78 mg/dl (74-100); Potassium 3.7 mmoL/L (3.5-5.1); Sodium 140 mmol/L (136-145)
[2024-07-05] MEDS: HEPARIN 1,000 UNITS/500ML NS (CATH LAB) 3000 UNIT IV (11:13)
[2024-07-05] MEDS: 0.9 % SODIUM CHLORIDE 500 ML 25 ML IV (11:13)
[2024-07-05] MEDS: diphenhydrAMINE 50MG/ML VIAL 50 MG IV (11:13)
[2024-07-05] MEDS: HEPARIN 1,000 UNITS/ML 10ML VIAL (CATH LAB) 10000 UNIT IV (11:14)
[2024-07-05] MEDS: VERAPAMIL 2.5MG/ML 2ML VIAL 2.5 MG IV (11:14)
[2024-07-05] MEDS: FENTANYL 100MCG/2ML VIAL 50 MCG IV (11:14)
[2024-07-05] MEDS: LIDOCAINE 1% 10ML MDV 20 ML IJ (11:14)
[2024-07-05] MEDS: MIDAZOLAM HCL 1MG/1ML 5ML VIAL 1 MG IV (11:14)
[2024-07-05] MEDS: IOPAMIDOL-370 (76%);100ML BOTTLE 70 ML IV (12:32)
== END 2024-07-05 13:56 | disposition home or self-care (01) ==
PROVIDERS: PCP Family Medicine; Visit Provider Internal Medicine
DX: I25.118 Atherosclerotic heart disease of native coronary artery with other forms of angina pectoris; I11.0 Hypertensive heart disease with heart failure; I50.32 Chronic diastolic (congestive) heart failure; E11.9 Type 2 diabetes mellitus without complications; Z79.4 Long term (current) use of insulin; N28.9 Disorder of kidney and ureter, unspecified; I42.0 Dilated cardiomyopathy; I48.11 Longstanding persistent atrial fibrillation; R93.1 Abnormal findings on diagnostic imaging of heart and coronary circulation; Z79.899 Other long term (current) drug therapy; Z79.01 Long term (current) use of anticoagulants; Z95.0 Presence of cardiac pacemaker
CPT/HCPCS: 80048; 85025; 93458; 99152; C1725; C1760; C1769; J1200; J1644; J2250; J3010; Q9967

== ENCOUNTER 2024-07-21 10:01 | Outpatient (POV) | payer MEDICARE, SELFPAY ==
[2024-07-21 10:20] VITALS: BP 129/56; PULSE 70; RESP 18; O2SAT 94; BMI 40.0
--- NOTE | 2024-07-21 10:50 | EXP.PAIN.SOA ---
[facility] Disclaimer: The information contained in this section may have been updated after the patient was seen, as this information can be updated by other users. Medical History Dizziness Hypotension HFrEF (heart failure with reduced ejection fraction) Cardiac defibrillator in situ SOB (shortness of breath) on exertion HLD (hyperlipidemia) Anxiety Tachycardia Surgical History History of colonoscopy History of tonsillectomy History of cholecystectomy History of appendectomy History of automatic internal cardiac defibrillator (AICD) History of implanted electronic device Cardiac contractility modulator implant (IMPULSE) SEP 2022 Family History Other Family history of COPD (chronic obstructive pulmonary disease) Family history of cancer Family history of cardiac arrhythmia Family history of diabetes mellitus type II Family history of hypothyroidism Family history of myocardial infarction Social History Smoking Status: Never smoker alcohol intake: never counseling provided: none substance use type: denies use current occupational status: retired Travel in the last 8 weeks: None household members: family housing: house lives independently: Yes marital status: single education level: high school current occupational exposures/hazards: No caffeine: No do you feel safe at home: Yes victim of physical abuse: No victim of emotional abuse: No victim of sexual abuse: No would you like helpful sources: No PM Subjective & Objective Subjective Subjective:: Patient is a pleasant 69-year-old female who presents today for 1 month follow-up. She rates her pain today as 7 out of 10. She denies any new trauma or injury. She does state that she is still getting significant relief in her legs from her last right transforaminal epidural of L4-L5 and L5-S1. She states that overall she is having more back pain however right now she would still say it is manageable. She is currently on tramadol, gabapentin, phenobarbital and Flexeril from her PCP. Patient has tried. Minimal relief. Her Neil has been reviewed and is appropriate. Review of Systems: General: No recent weight changes, no fever, no sleep disturbances Respiratory: No cough, no shortness of air, no recurring pulmonary infections Cardiovascular/peripheral vascular: No chest pain, no palpitations, no edema, no shortness of breath Gastrointestinal: No new onset incontinence, normal bowel movements reported Genitourinary: No new onset incontinence Musculoskeletal: Low back pain Psychiatric: [Normal mood/affect] Neurological: [Denies weakness in extremities], [denies balance issues] Pain at rest (0-10 scale): 7 Objective Objective:: Physical Exam: General: Alert and oriented x3, no acute distress, pleasant and cooperative Lungs: Respirations even and unlabored, symmetrical chest expansion Eyes: PERRL Musculoskeletal: Flexion and extension of lumbar [spine] somewhat guarded secondary to pain, [antalgic gait noted] Neurological: Speech clear, no gross sensory deficit FINDINGS: CT LUMBAR SPINE Thin section noncontrast axial CT with sagittal reconstructions There is chronic mild superior endplate compression fracture at T12. No lumbar fracture is identified. Alignment is normal. T12-L1: Minimal endplate spurring without canal stenosis. L1-L2: No significant disc disease is present. There is no canal stenosis. L2-L3: Mild annular disc bulge. Moderate facet arthropathy. Borderline central canal stenosis. L3-L4: Moderate annular disc bulge and facet arthropathy. Mild central canal stenosis. Moderate neuroforaminal narrowing. L4-L5: Mild annular disc bulge. Advanced facet arthropathy. Moderate central canal stenosis. Moderate right and severe left neuroforaminal narrowing. L5-S1: Questionable small right paracentral disc protrusion with mass effect on the thecal sac. Moderate facet arthropathy. IMPRESSION: Questionable disc protrusion at L5-S1 resulting in mass effect on the right S1 nerve root. Degenerative canal stenosis and neuroforaminal narrowing as described. This study was performed using automated techniques to achieve radiation exposure as low as reasonably achievable Reviewed, Interpreted and Dictated by Julain Graves MD Transcribed by Prabha To Authenticated and [facility] Has patient had previous pain injection?: No Conservative treatment options previously tried: Home exercise plan Length of treatment: Longer than 6 weeks Meds Home Medications and Allergies Home Medications ?Medication ?Instructions ?Recorded ?Confirmed ?Type atorvastatin 10 mg tablet 10 mg PO DAILY 12/03/17 07/19/24 History pantoprazole 40 mg tablet,delayed 40 mg PO BID 12/03/17 07/19/24 History release tramadol 50 mg tablet 50 mg PO BIDP PRN Mild Pain (Scale 12/03/17 07/19/24 History Score 1-4) omega 3-qbz-ifo-fish oil 300 1 cap PO BID 12/21/19 07/19/24 History mg-1,000 mg capsule,delayed release phenobarbital 32.4 mg tablet 97.2 mg PO HS 02/12/20 07/19/24 History digoxin 125 mcg (0.125 mg) tablet 125 mcg PO DAILY 03/27/20 07/19/24 History ropinirole 2 mg tablet 2 mg PO HS 03/28/20 07/19/24 History gabapentin 800 mg tablet 800 mg PO TID 02/26/21 07/19/24 History cyclobenzaprine 5 mg tablet 5 mg PO TIDP PRN Muscle Spasm 04/07/24 07/19/24 History semaglutide 2 mg/dose (8 mg/3 mL) 2 mg SQ WEEKLY 04/07/24 07/19/24 History subcutaneous pen injector (Ozempic) spironolactone 25 mg tablet 25 mg PO DAILY 04/07/24 07/19/24 History diclofenac sodium 1 % topical gel 4 g topical QID PRN pain 30 days 04/26/24 07/19/24 Rx #100 grams fluticasone propionate 50 See Rx Instructions .Route .COMPLEX 04/26/24 07/19/24 History mcg/actuation nasal spray,suspension nitroglycerin 0.4 mg sublingual See Rx Instructions .Route 04/26/24 07/19/24 History tablet .COMPLEX PRN Chest Pain duloxetine 30 mg capsule,delayed 30 mg PO DAILY 05/10/24 07/19/24 History release sacubitril 24 mg-valsartan 26 mg 1 tab PO BID #60 tabs 05/10/24 07/19/24 Rx tablet (Entresto) insulin human U-100 NPH-regulr 60 unit SQ HS 05/31/24 07/19/24 History 70-30 mix 100 unit/mL subcutaneous susp (Novolin 70/30 U-100 Insulin) insulin human U-100 NPH-regulr 100 unit SQ DAILY 05/31/24 07/19/24 History 70-30 mix 100 unit/mL subcutaneous susp (Novolin 70/30 U-100 Insulin) torsemide 20 mg tablet 20 mg PO BID Edema 05/31/24 07/19/24 History bisoprolol fumarate 5 mg tablet 5 mg PO DAILY #30 tabs 06/03/24 07/19/24 Rx dapagliflozin propanediol 10 mg 10 mg PO DAILY #30 tabs 06/17/24 07/19/24 Rx tablet (Farxiga) rivaroxaban 20 mg tablet (Xarelto) See Rx Instructions .Route 07/01/24 07/19/24 Rx .COMPLEX #90 tabs New Prescriptions to Start Prescriptions: Allergies Allergy/AdvReac Type Severity Reaction Status Date / Time metoclopramide [From REGLAN] Allergy Mild SHAKES Verified 07/19/24 11:36 Assessment and Plan *Assessment and plan (1) Degenerative disc disease, lumbar: Status: Acute Category: Medical Code(s): M51.36 - Other intervertebral disc degeneration, lumbar region Plan I did discuss at length with the patient that in future she may benefit from lumbar medial branch blocks. Patient does have advanced facet arthritis multilevel. We will follow-up with this at future visits. Patient will return to clinic in 1 month for reevaluation of symptoms and plan of care. Patient has been instructed to contact the clinic with any concerns before the next appointment. Dr. Garcia has reviewed this note and agrees with this plan of care. This note was dictated using voice recognition software and make contain errors or omissions. All injections are used with Lidocaine or Bupivacaine and Depo Medrol.
== END 2024-07-21 23:59 | disposition home or self-care (01) ==
LOC: SC.PAIN 10:03
PROVIDERS: PCP Family Medicine; Visit Provider Nurse Practitioner Family
DX: M51.36 Other intervertebral disc degeneration, lumbar region (principal); Z95.810 Presence of automatic (implantable) cardiac defibrillator; Z79.899 Other long term (current) drug therapy
CPT/HCPCS: 99212; G0463

== ENCOUNTER 2024-09-16 09:30 | Outpatient (POV) | payer MEDICARE, SELFPAY ==
[2024-09-16 10:02] VITALS: BP 130/59; PULSE 72; RESP 18; O2SAT 96; BMI 38.9
--- NOTE | 2024-09-16 10:10 | EXP.PAIN.SOA ---
[facility] Disclaimer: The information contained in this section may have been updated after the patient was seen, as this information can be updated by other users. Medical History Dizziness Hypotension HFrEF (heart failure with reduced ejection fraction) Cardiac defibrillator in situ SOB (shortness of breath) on exertion HLD (hyperlipidemia) Anxiety Tachycardia Surgical History History of colonoscopy History of tonsillectomy History of cholecystectomy History of appendectomy History of automatic internal cardiac defibrillator (AICD) History of implanted electronic device Cardiac contractility modulator implant (IMPULSE) SEP 2022 Family History Other Family history of COPD (chronic obstructive pulmonary disease) Family history of cancer Family history of cardiac arrhythmia Family history of diabetes mellitus type II Family history of hypothyroidism Family history of myocardial infarction Social History Smoking Status: Never smoker alcohol intake: never counseling provided: none substance use type: denies use current occupational status: other Travel in the last 8 weeks: None household members: family housing: house lives independently: Yes marital status: single education level: high school current occupational exposures/hazards: No caffeine: No do you feel safe at home: Yes victim of physical abuse: No victim of emotional abuse: No victim of sexual abuse: No would you like helpful sources: No PM Subjective & Objective Subjective Subjective:: Patient is a pleasant 69-year-old female who presents today for worsening pain. Today she rates her pain a 6 out of 10. Patient does state that she had a fall about 3 weeks ago and that she ended up landing on her back and her head. She states that her entire right leg went numb however that it is back to its normal today. Patient does state that she continues to have some numbness down both of her legs and chronic low back pain. Patient does state that the pain is fairly constant and is interfering with her ability perform activities of daily living such as cooking and cleaning. Patient is interested in injection therapy. Patient is on tramadol, gabapentin, phenobarbital and Flexeril from her PCP. Her Neil has been reviewed and is appropriate. Review of Systems: General: No recent weight changes, no fever, no sleep disturbances Respiratory: No cough, no shortness of air, no recurring pulmonary infections Cardiovascular/peripheral vascular: No chest pain, no palpitations, no edema, no shortness of breath Gastrointestinal: No new onset incontinence, normal bowel movements reported Genitourinary: No new onset incontinence Musculoskeletal: Low back pain, leg pain Psychiatric: [Normal mood/affect] Neurological: [Denies weakness in extremities], [denies balance issues] Pain at rest (0-10 scale): 6 Objective Objective:: Physical Exam: General: Alert and oriented x3, no acute distress, pleasant and cooperative Lungs: Respirations even and unlabored, symmetrical chest expansion Eyes: PERRL Musculoskeletal: Flexion and extension of lumbar [spine] somewhat guarded secondary to pain, [antalgic gait noted] Neurological: Speech clear, no gross sensory deficit Has patient had previous pain injection?: No Conservative treatment options previously tried: Home exercise plan Length of treatment: Longer than 12 weeks Meds Home Medications and Allergies Home Medications ?Medication ?Instructions ?Recorded ?Confirmed ?Type atorvastatin 10 mg tablet 10 mg PO DAILY 12/03/17 09/16/24 History pantoprazole 40 mg tablet,delayed 40 mg PO BID 12/03/17 09/16/24 History release tramadol 50 mg tablet 50 mg PO BIDP PRN Mild Pain (Scale 12/03/17 09/16/24 History Score 1-4) omega 8-zak-aqd-fish oil 300 1 cap PO BID 12/21/19 09/16/24 History mg-1,000 mg capsule,delayed release phenobarbital 32.4 mg tablet 97.2 mg PO HS 02/12/20 09/16/24 History digoxin 125 mcg (0.125 mg) tablet 125 mcg PO DAILY 03/27/20 09/16/24 History ropinirole 2 mg tablet 2 mg PO HS 03/28/20 09/16/24 History gabapentin 800 mg tablet 800 mg PO TID 02/26/21 09/16/24 History cyclobenzaprine 5 mg tablet 5 mg PO TIDP PRN Muscle Spasm 04/07/24 09/16/24 History semaglutide 2 mg/dose (8 mg/3 mL) 2 mg SQ WEEKLY 04/07/24 09/16/24 History subcutaneous pen injector (Ozempic) spironolactone 25 mg tablet 25 mg PO DAILY 04/07/24 09/16/24 History diclofenac sodium 1 % topical gel 4 g topical QID PRN pain 30 days 04/26/24 09/16/24 Rx #100 grams fluticasone propionate 50 See Rx Instructions .Route .COMPLEX 04/26/24 09/16/24 History mcg/actuation nasal spray,suspension nitroglycerin 0.4 mg sublingual See Rx Instructions .Route 04/26/24 09/16/24 History tablet .COMPLEX PRN Chest Pain duloxetine 30 mg capsule,delayed 30 mg PO DAILY 05/10/24 09/16/24 History release insulin human U-100 NPH-regulr 60 unit SQ HS 05/31/24 09/16/24 History 70-30 mix 100 unit/mL subcutaneous susp (Novolin 70/30 U-100 Insulin) insulin human U-100 NPH-regulr 100 unit SQ DAILY 05/31/24 09/16/24 History 70-30 mix 100 unit/mL subcutaneous susp (Novolin 70/30 U-100 Insulin) torsemide 20 mg tablet 20 mg PO BID Edema 05/31/24 09/16/24 History bisoprolol fumarate 5 mg tablet 5 mg PO DAILY #30 tabs 06/03/24 09/16/24 Rx dapagliflozin propanediol 10 mg 10 mg PO DAILY #30 tabs 06/17/24 09/16/24 Rx tablet (Farxiga) rivaroxaban 20 mg tablet (Xarelto) See Rx Instructions .Route 07/01/24 09/16/24 Rx .COMPLEX #90 tabs sacubitril 24 mg-valsartan 26 mg 1 tab PO BID #60 tabs 08/11/24 09/16/24 Rx tablet (Entresto) isosorbide mononitrate 30 mg 30 mg PO DAILY #30 tabs 09/13/24 09/16/24 Rx tablet,extended release 24 hr New Prescriptions to Start Prescriptions: Allergies Allergy/AdvReac Type Severity Reaction Status Date / Time metoclopramide [From REGLAN] Allergy Mild SHAKES Verified 09/13/24 13:51 Assessment and Plan *Assessment and plan (1) Lumbar radiculopathy: Status: Acute Category: Medical Code(s): M54.16 - Radiculopathy, lumbar region (2) Degenerative disc disease, lumbar: Status: Acute Category: Medical Code(s): M51.36 - Other intervertebral disc degeneration, lumbar region Plan Patient is experiencing worsening pain throughout her low back with radiating numbness and tingling into her lower extremities. Patient did have limited range of motion of her lumbar spine with positive leg raise. I did discuss with the patient that I do believe she would benefit from lumbar epidural steroid injection. Risk and benefits were discussed with patient and she would like to proceed forward with this plan of care. Patient has tried and failed conservative therapy including continued at home stretching exercise for longer than 12 weeks. We will schedule the patient for an LESI L5-S1 under fluoroscopy. Patient has had epidurals in the past that did provide more than 50% improvement lasting on average at least 2 to 3 months. Patient has been instructed to contact the clinic with any concerns before the next appointment. Dr. Garcia has reviewed this note and agrees with this plan of care. This note was dictated using voice recognition software and make contain errors or omissions. All injections are used with Lidocaine or Bupivacaine and Depo Medrol.
== END 2024-09-16 23:59 | disposition home or self-care (01) ==
LOC: SC.PAIN 09:31
PROVIDERS: PCP Family Medicine; Visit Provider Nurse Practitioner Family
DX: M51.16 Intervertebral disc disorders with radiculopathy, lumbar region (principal); Z95.810 Presence of automatic (implantable) cardiac defibrillator; Z73.89 Other problems related to life management difficulty; Z79.899 Other long term (current) drug therapy
CPT/HCPCS: 99212; G0463

== ENCOUNTER 2024-09-28 11:32 | Day surgery (SDC) | payer MEDICARE, SELFPAY ==
[2024-09-28 11:49] VITALS: BP 114/69; PULSE 71; RESP 16; TEMP 36.4; O2SAT 97; BMI 41.8
[2024-09-28] MEDS: methylPREDNISolone ACETATE 80MG/ML VIAL 80 MG (11:55)
[2024-09-28 11:56] VITALS: BP 104/62; PULSE 78; RESP 18; O2SAT 96
[2024-09-28 11:56] LABS: POC Glucose,Bedside 124 (70-110)
[2024-09-28 11:57] VITALS: BP 104/62; PULSE 78; RESP 18; O2SAT 96
--- NOTE | 2024-09-28 12:00 | P.PCN_ITS ---
Procedure Date: 09/28/24 Time: 11:50 Anesthesiologist:: Iglesia Mason CRNA Complications:: None Pre-procedure Diagnosis:: Degenerative disc lumbar spine multilevels. Lumbar radiculopathy. Lumbar disc bulge L4-5, L5-S1. Post-procedure Diagnosis:: Same. Indications for Procedure:: Patient is a pleasant 69-year-old female who comes our clinic today for a lumbar epidural steroid injection at L5-S1 level. Patient describes low lumbar back pain is constant, dull, aching. Patient also reports bilateral hip and leg radicular symptoms at times. She rates her pain 7/10. Procedure Details:: Procedure: Lumbar epidural steroid injection under fluoroscopy Informed consent was obtained and the risks and benefits of the procedure were explained to the patient. The patient was taken to the procedure room and noninvasive monitors placed, including noninvasive blood pressure cuff and pulse oximeter. The back was viewed using C-arm Fluoroscopy and prepped using Chloraprep as a cleansing solution and the L4-L5 interspace was palpated. Skin a nd subcutaneous tissues were anesthetized using lidocaine 1.5% and a 25-gauge needle. After this, an 18-gauge Touhy epidural needle was placed into the L4-L5 interspace and advanced using fluoroscopic guidance and loss of resistance to air until the epidural space was encountered. After confirmation of needle placement in the epidural space, with dye, a solution containing normal saline, 3 mL and Depo-Medrol 80 mg were incrementally injected into the lumbar epidural space. The patient tolerated the procedure well with no complications. The patient was observed in the Pain Clinic and then discharged home neurologically intact. Plan and Disposition:: Patient was discharged without incident.
[2024-09-28 12:10] VITALS: BP 125/60; PULSE 72; RESP 16; O2SAT 92
== END 2024-09-28 12:10 | disposition home or self-care (01) ==
PROVIDERS: PCP Family Medicine; Visit Provider Nurse Anesthetist, Certified Registered
DX: M51.16 Intervertebral disc disorders with radiculopathy, lumbar region (principal)
CPT/HCPCS: 62323; 82962; J1010

== ENCOUNTER 2024-10-11 10:47 | Outpatient (POV) | payer MEDICARE, SELFPAY ==
[2024-10-11 11:16] VITALS: BP 118/51; PULSE 71; RESP 18; O2SAT 96; BMI 39.6
--- NOTE | 2024-10-11 11:21 | A.OFFVIS_ITS ---
[facility] Disclaimer: The information contained in this section may have been updated after the patient was seen, as this information can be updated by other users. Medical History Dizziness Hypotension HFrEF (heart failure with reduced ejection fraction) Cardiac defibrillator in situ SOB (shortness of breath) on exertion HLD (hyperlipidemia) Anxiety Tachycardia Surgical History History of colonoscopy History of tonsillectomy History of cholecystectomy History of appendectomy History of automatic internal cardiac defibrillator (AICD) History of implanted electronic device Cardiac contractility modulator implant (IMPULSE) SEP 2022 Family History Other Family history of COPD (chronic obstructive pulmonary disease) Family history of cancer Family history of cardiac arrhythmia Family history of diabetes mellitus type II Family history of hypothyroidism Family history of myocardial infarction Social History Smoking Status: Never smoker alcohol intake: never counseling provided: none substance use type: denies use current occupational status: retired Travel in the last 8 weeks: None household members: family housing: house lives independently: Yes marital status: single education level: high school current occupational exposures/hazards: No caffeine: No do you feel safe at home: Yes victim of physical abuse: No victim of emotional abuse: No victim of sexual abuse: No would you like helpful sources: No PM Subjective & Objective Subjective Subjective:: Patient is a pleasant 69-year-old female who presents today for follow-up of lumbar epidural steroid injection L4-L5 on 09/28/2024. Today she rates her pain a 4 out of 10. She denies any new trauma or injury. She does state that she feels like the injection has helped approximately 60%. Patient states that she did notice significant improvement in her bilateral feet pain more than anything else. She does feel like this is still helping. Patient does state that she is recently moved into a new house. Patient is currently managed with tramadol, gabapentin and Flexeril from her PCP. Her Neil has been reviewed and is appropriate. Review of Systems: General: No recent weight changes, no fever, no sleep disturbances Respiratory: No cough, no shortness of air, no recurring pulmonary infections Cardiovascular/peripheral vascular: No chest pain, no palpitations, no edema, no shortness of breath Gastrointestinal: No new onset incontinence, normal bowel movements reported Genitourinary: No new onset incontinence Musculoskeletal: Low back pain Psychiatric: [Normal mood/affect] Neurological: [Denies weakness in extremities], [denies balance issues] Pain at rest (0-10 scale): 4 Objective Objective:: Physical Exam: General: Alert and oriented x3, no acute distress, pleasant and cooperative Lungs: Respirations even and unlabored, symmetrical chest expansion Eyes: PERRL Musculoskeletal: Flexion and extension of lumbar [spine] somewhat guarded secondary to pain, [antalgic gait noted] Neurological: Speech clear, no gross sensory deficit Has patient had previous pain injection?: Yes Percent improvement in pain since last injection: 60% Conservative treatment options previously tried: Home exercise plan Length of treatment: Longer than 12 weeks Meds Home Medications and Allergies Home Medications ?Medication ?Instructions ?Recorded ?Confirmed ?Type atorvastatin 10 mg tablet 10 mg PO DAILY 12/03/17 10/11/24 History pantoprazole 40 mg tablet,delayed 40 mg PO BID 12/03/17 10/11/24 History release tramadol 50 mg tablet 50 mg PO BIDP PRN Mild Pain (Scale 12/03/17 10/11/24 History Score 1-4) omega 2-nhd-ipn-fish oil 300 1 cap PO BID 12/21/19 10/11/24 History mg-1,000 mg capsule,delayed release phenobarbital 32.4 mg tablet 97.2 mg PO HS 02/12/20 10/11/24 History digoxin 125 mcg (0.125 mg) tablet 125 mcg PO DAILY 03/27/20 10/11/24 History ropinirole 2 mg tablet 2 mg PO HS 03/28/20 10/11/24 History gabapentin 800 mg tablet 800 mg PO TID 02/26/21 10/11/24 History cyclobenzaprine 5 mg tablet 5 mg PO TIDP PRN Muscle Spasm 04/07/24 10/11/24 History semaglutide 2 mg/dose (8 mg/3 mL) 2 mg SQ WEEKLY 04/07/24 10/11/24 History subcutaneous pen injector (Ozempic) spironolactone 25 mg tablet 25 mg PO DAILY 04/07/24 10/11/24 History diclofenac sodium 1 % topical gel 4 g topical QID PRN pain 30 days 04/26/24 10/11/24 Rx #100 grams fluticasone propionate 50 See Rx Instructions .Route .COMPLEX 04/26/24 10/11/24 History mcg/actuation nasal spray,suspension nitroglycerin 0.4 mg sublingual See Rx Instructions .Route 04/26/24 10/11/24 History tablet .COMPLEX PRN Chest Pain duloxetine 30 mg capsule,delayed 30 mg PO DAILY 05/10/24 10/11/24 History release insulin human U-100 NPH-regulr 60 unit SQ HS 05/31/24 10/11/24 History 70-30 mix 100 unit/mL subcutaneous susp (Novolin 70/30 U-100 Insulin) insulin human U-100 NPH-regulr 100 unit SQ DAILY 05/31/24 10/11/24 History 70-30 mix 100 unit/mL subcutaneous susp (Novolin 70/30 U-100 Insulin) torsemide 20 mg tablet 20 mg PO BID Edema 05/31/24 10/11/24 History bisoprolol fumarate 5 mg tablet 5 mg PO DAILY #30 tabs 06/03/24 10/11/24 Rx dapagliflozin propanediol 10 mg 10 mg PO DAILY #30 tabs 06/17/24 10/11/24 Rx tablet (Farxiga) rivaroxaban 20 mg tablet (Xarelto) See Rx Instructions .Route 07/01/24 10/11/24 Rx .COMPLEX #90 tabs sacubitril 24 mg-valsartan 26 mg 1 tab PO BID #60 tabs 08/11/24 10/11/24 Rx tablet (Entresto) isosorbide mononitrate 30 mg 30 mg PO DAILY #30 tabs 09/13/24 10/11/24 Rx tablet,extended release 24 hr New Prescriptions to Start Prescriptions: Allergies Allergy/AdvReac Type Severity Reaction Status Date / Time metoclopramide (From REGLAN) Allergy Mild SHAKES Verified 09/13/24 13:51 Assessment and Plan *Assessment and plan (1) Degenerative disc disease, lumbar: Status: Acute Category: Medical Code(s): M51.36 - Other intervertebral disc degeneration, lumbar region (2) Lumbar radiculopathy: Status: Acute Category: Medical Code(s): M54.16 - Radiculopathy, lumbar region Plan Patient has had significant improvement following her lumbar epidural and does not require any additional injection therapy this time. Patient will return to clinic in 2 months for reevaluation of symptoms and plan of care. Patient has been instructed to contact the clinic with any concerns before the next appointment. Dr. Garcia has reviewed this note and agrees with this plan of care. This note was dictated using voice recognition software and make contain errors or omissions. All injections are used with Lidocaine or Bupivacaine and Depo Medrol.
== END 2024-10-11 23:59 | disposition home or self-care (01) ==
LOC: SC.PAIN 10:48
PROVIDERS: PCP Family Medicine; Visit Provider Nurse Practitioner Family
DX: M51.16 Intervertebral disc disorders with radiculopathy, lumbar region (principal); Z79.899 Other long term (current) drug therapy; Z79.01 Long term (current) use of anticoagulants
CPT/HCPCS: 99212; G0463

== ENCOUNTER 2024-12-02 15:21 | Outpatient (CLI) | payer MEDICARE, SELFPAY ==
[2024-12-02 16:13] LABS: Anion Gap 15.3 mEq/L (5-15); Blood Urea Nitrogen 47 mg/dl (7-17); Calcium 9.8 mg/dl (8.4-10.2); Carbon Dioxide 27 mmol/L (22.0-30.0); Chloride 98 mmol/L (98-107); Estimated Glomerular Filt Rate 26 ml/min (>60); GFR (African American) 32 ML/MIN (>60); Glucose 221 mg/dl (74-100); Potassium 4.3 mmoL/L (3.5-5.1); Sodium 136 mmol/L (136-145)
[2024-12-02 16:23] LABS: NT Pro Brain Natriuretic Pep. 1480 pg/mL (0-125)
== END 2024-12-02 23:59 | disposition home or self-care (01) ==
LOC: LAB 15:22
PROVIDERS: PCP Family Medicine; Visit Provider Physician Assistant
DX: I50.23 Acute on chronic systolic (congestive) heart failure (principal)
CPT/HCPCS: 36415; 80048; 83880

== ENCOUNTER 2024-12-09 10:23 | Outpatient (POV) | payer MEDICARE, SELFPAY ==
[2024-12-09 10:47] VITALS: BP 131/61; PULSE 77; RESP 14; O2SAT 99; BMI 38.9
--- NOTE | 2024-12-09 11:03 | A.OFFVIS_ITS ---
[facility] Disclaimer: The information contained in this section may have been updated after the patient was seen, as this information can be updated by other users. Medical History Dizziness Hypotension HFrEF (heart failure with reduced ejection fraction) Cardiac defibrillator in situ SOB (shortness of breath) on exertion HLD (hyperlipidemia) Anxiety Tachycardia Surgical History History of colonoscopy History of tonsillectomy History of cholecystectomy History of appendectomy History of automatic internal cardiac defibrillator (AICD) History of implanted electronic device Cardiac contractility modulator implant (IMPULSE) SEP 2022 Family History Other Family history of COPD (chronic obstructive pulmonary disease) Family history of cancer Family history of cardiac arrhythmia Family history of diabetes mellitus type II Family history of hypothyroidism Family history of myocardial infarction Social History Smoking Status: Never smoker alcohol intake: never counseling provided: none substance use type: denies use current occupational status: other Travel in the last 8 weeks: None household members: family housing: house lives independently: Yes marital status: single education level: high school current occupational exposures/hazards: No caffeine: No do you feel safe at home: Yes victim of physical abuse: No victim of emotional abuse: No victim of sexual abuse: No would you like helpful sources: No PM Subjective & Objective Subjective Subjective:: Patient is a pleasant 69-year-old female who presents today for worsening pain. She rates her pain today a 5 out of 10. She denies any new trauma or injury. Patient does state that she has been having more pain in her low back with radiating symptoms to her bilateral lower extremities. She does describe this is an aching, throbbing sensation with numbness and tingling into her extremities. Patient does state the pain has picked up from her last appointment and that it is interfering with her ability perform activities of daily living such as cooking and cleaning. Patient did previously have her last lumbar epidural back at the beginning of September that did provide more than 60% improvement and started wearing off over the last 2 weeks. Patient is interested in repeating this injection because it did provide such significant improvement. Her Neil has been reviewed and is appropriate. Review of Systems: General: No recent weight changes, no fever, no sleep disturbances Respiratory: No cough, no shortness of air, no recurring pulmonary infections Cardiovascular/peripheral vascular: No chest pain, no palpitations, no edema, no shortness of breath Gastrointestinal: No new onset incontinence, normal bowel movements reported Genitourinary: No new onset incontinence Musculoskeletal: Low back pain, bilateral leg pain Psychiatric: [Normal mood/affect] Neurological: [Denies weakness in extremities], [denies balance issues] Pain at rest (0-10 scale): 5 Objective Objective:: Physical Exam: General: Alert and oriented x3, no acute distress, pleasant and cooperative Lungs: Respirations even and unlabored, symmetrical chest expansion Eyes: PERRL Musculoskeletal: Flexion and extension of lumbar [spine] somewhat guarded secondary to pain, [antalgic gait noted] positive leg raise Neurological: Speech clear, no gross sensory deficit Has patient had previous pain injection?: No Conservative treatment options previously tried: Home exercise plan Length of treatment: Longer than 12 weeks Meds Home Medications and Allergies Home Medications ?Medication ?Instructions ?Recorded ?Confirmed ?Type atorvastatin 10 mg tablet 10 mg PO DAILY 12/03/17 12/09/24 History pantoprazole 40 mg tablet,delayed 40 mg PO BID 12/03/17 12/09/24 History release tramadol 50 mg tablet 50 mg PO BIDP PRN Mild Pain (Scale 12/03/17 12/09/24 History Score 1-4) omega 7-lai-ekr-fish oil 300 1 cap PO BID 12/21/19 12/09/24 History mg-1,000 mg capsule,delayed release phenobarbital 32.4 mg tablet 97.2 mg PO HS 02/12/20 12/09/24 History digoxin 125 mcg (0.125 mg) tablet 125 mcg PO DAILY 03/27/20 12/09/24 History ropinirole 2 mg tablet 2 mg PO HS 03/28/20 12/09/24 History gabapentin 800 mg tablet 800 mg PO TID 02/26/21 12/09/24 History cyclobenzaprine 5 mg tablet 5 mg PO TIDP PRN Muscle Spasm 04/07/24 12/09/24 History semaglutide 2 mg/dose (8 mg/3 mL) 2 mg SQ WEEKLY 04/07/24 12/09/24 History subcutaneous pen injector (Ozempic) diclofenac sodium 1 % topical gel 4 g topical QID PRN pain 30 days 04/26/24 12/09/24 Rx #100 grams fluticasone propionate 50 See Rx Instructions .Route .COMPLEX 04/26/24 12/09/24 History mcg/actuation nasal spray,suspension nitroglycerin 0.4 mg sublingual See Rx Instructions .Route 04/26/24 12/09/24 History tablet .COMPLEX PRN Chest Pain duloxetine 30 mg capsule,delayed 30 mg PO DAILY 05/10/24 12/09/24 History release insulin human U-100 NPH-regulr 60 unit SQ HS 05/31/24 12/09/24 History 70-30 mix 100 unit/mL subcutaneous susp (Novolin 70/30 U-100 Insulin) insulin human U-100 NPH-regulr 100 unit SQ DAILY 05/31/24 12/09/24 History 70-30 mix 100 unit/mL subcutaneous susp (Novolin 70/30 U-100 Insulin) torsemide 20 mg tablet 20 mg PO BID Edema 05/31/24 12/09/24 History dapagliflozin propanediol 10 mg 10 mg PO DAILY #30 tabs 06/17/24 12/09/24 Rx tablet (Farxiga) rivaroxaban 20 mg tablet (Xarelto) See Rx Instructions .Route 07/01/24 12/09/24 Rx .COMPLEX #90 tabs sacubitril 24 mg-valsartan 26 mg 1 tab PO BID #60 tabs 11/18/24 12/09/24 Rx tablet (Entresto) spironolactone 25 mg tablet 25 mg PO BID 11/26/24 12/09/24 History torsemide 20 mg tablet 40 mg (2 x 20 mg) PO BID 2 days #8 11/26/24 12/09/24 Rx tabs bisoprolol fumarate 5 mg tablet See Rx Instructions .Route 11/30/24 12/09/24 Rx .COMPLEX #90 tabs isosorbide mononitrate 30 mg See Rx Instructions .Route 11/30/24 12/09/24 Rx tablet,extended release 24 hr .COMPLEX #90 tabs New Prescriptions to Start Prescriptions: Allergies Allergy/AdvReac Type Severity Reaction Status Date / Time metoclopramide (From REGLAN) Allergy Mild SHAKES Verified 12/08/24 08:47 Assessment and Plan *Assessment and plan (1) Degenerative disc disease, lumbar: Status: Acute Category: Medical Code(s): M51.369 - Other intervertebral disc degeneration, lumbar region without mention of lumbar back pain or lower extremity pain (2) Lumbar radiculopathy: Status: Acute Category: Medical Code(s): M54.16 - Radiculopathy, lumbar region Plan Patient is experiencing worsening pain in her low back with limited range of motion and a positive leg raise. I did discuss with the patient that I do believe she would benefit from a repeat lumbar epidural steroid injection. Patient's risk and benefits were reviewed and she would like to proceed forward with this plan of care. Patient is currently on Xarelto written by Dr. Armstrong's office. I did developmental training counselor her that she will have to stop this medication prior to this injection. Patient acknowledges understanding. Patient has tried and failed conservative therapy including oral medication, heat and ice, topicals, at home stretching exercise for longer than 12 weeks in between injections. Patient's last lumbar epidural was on September 28 that did provide 60% improvement and lasted up until the last 2 weeks. Patient will be scheduled for repeat lumbar epidural steroid injection L4-L5 under fluoroscopy. Patient has been instructed to contact the clinic with any concerns before the next appointment. Dr. Garcia has reviewed this note and agrees with this plan of care. This note was dictated using voice recognition software and make contain errors or omissions. All injections are used with Lidocaine, Bupivacaine and Depo Medrol. Occasionally urine drug screen is needed to verify patient's compliance with our office pain contract. This is ordered based off specific treatments related to chronic pain with the potential to abuse certain medications.
== END 2024-12-09 23:59 | disposition home or self-care (01) ==
LOC: SC.PAIN 10:24
PROVIDERS: PCP Family Medicine; Visit Provider Nurse Practitioner Family
DX: M51.16 Intervertebral disc disorders with radiculopathy, lumbar region (principal); Z73.89 Other problems related to life management difficulty; Z79.899 Other long term (current) drug therapy
CPT/HCPCS: 99212; G0463

== ENCOUNTER 2024-12-28 07:35 | Day surgery (SDC) | payer MEDICARE, SELFPAY ==
[2024-12-28 08:35] VITALS: BP 148/73; PULSE 70; RESP 16; TEMP 36.8; O2SAT 96; BMI 39.2
[2024-12-28 09:26] VITALS: BP 138/70; PULSE 67; RESP 16; O2SAT 99
[2024-12-28 09:27] VITALS: BP 137/83; PULSE 70; RESP 18; O2SAT 93
[2024-12-28] MEDS: methylPREDNISolone ACETATE 80MG/ML VIAL 80 MG (09:27)
[2024-12-28 09:30] VITALS: BP 137/83; PULSE 70; RESP 18; O2SAT 94
--- NOTE | 2024-12-28 09:44 | EXP.PAIN.PRO ---
Procedure Date: 12/28/24 Time: 09:15 Anesthesiologist:: Iglesia Mason CRNA Complications:: None Pre-procedure Diagnosis:: Degenerative disc lumbar spine multilevels. Lumbar radiculopathy. Lumbar postlaminectomy syndrome. Lumbar spinal stenosis. Multilevel lumbar facet arthropathy. Post-procedure Diagnosis:: Same. Indications for Procedure:: Patient is a very pleasant 69-year-old male who comes our clinic today for lumbar epidural steroid injection of the L4-5 level. Patient describes low lumbar back pain is constant, dull, aching. Patient also reports bilateral hip and leg radicular symptoms. Patient reports having moderate to significant improvement in terms of the above said symptoms and previous injections at the L4-5 level. Patient rates her pain today 7/10. Procedure Details:: Procedure: Lumbar epidural steroid injection under fluoroscopy Informed consent was obtained and the risks and benefits of the procedure were explained to the patient. The patient was taken to the procedure room and noninvasive monitors placed, including noninvasive blood pressure cuff and pulse oximeter. The back was viewed using C-arm Fluoroscopy and prepped using Chloraprep as a cleansing solution and the L4-L5 interspace was palpated. Skin and subcutaneous tissues were anesthetized using lidocaine 1.5% and a 25-gauge needle. After this, an 18-gauge Touhy epidural needle was placed into the L4-L5 interspace and advanced using fluoroscopic guidance and loss of resistance to air until the epidural space was encountered. After confirmation of needle placement in the epidural space, with dye, a solution containing normal saline, 3 mL and Depo-Medrol 80 mg were incrementally injected into the lumbar epidural space. The patient tolerated the procedure well with no complications. The patient was observed in the Pain Clinic and then discharged home neurologically intact. Plan and Disposition:: Patient was discharged without incident.
== END 2024-12-28 09:28 | disposition home or self-care (01) ==
LOC: SC.PAINP 07:36
PROVIDERS: PCP Family Medicine; Visit Provider Nurse Anesthetist, Certified Registered
DX: M51.16 Intervertebral disc disorders with radiculopathy, lumbar region (principal); M96.1 Postlaminectomy syndrome, not elsewhere classified; M47.26 Other spondylosis with radiculopathy, lumbar region; M48.061 Spinal stenosis, lumbar region without neurogenic claudication
CPT/HCPCS: 62323; J1010

== ENCOUNTER 2025-01-06 12:03 | Outpatient (CLI) | payer MEDICARE, SELFPAY ==
--- NOTE | 2025-01-06 12:19 | XR_ITS ---
FINAL REPORT CLINICAL HISTORY: dyspnea, patient states she hasn't felt well for one and a half weeks, patient denies cough and patient is not a smoker COMPARISON: 04/06/2024 FINDINGS: No acute pulmonary density is evident. There is no evidence of effusion or other pleural disease. The mediastinum has a normal appearance. The cardiac silhouette is unremarkable. There are bilateral subclavian pacer devices. IMPRESSION: Unremarkable chest exam. Reviewed, Interpreted and Dictated by Julian Graves MD Transcribed by Claudia Hoang Authenticated and [facility]
[2025-01-06 12:23] LABS: Basophils # 0.1 K/mm3 (0-0.2); Basophils % 0.6 % (0.1-2.0); Eosinophils # 0.2 K/mm3 (0.0-0.4); Eosinophils % 2.1 % (0.1-12.0); Hematocrit 36.7 % (37.0-47.0); Hemoglobin 11.8 g/dL (12.2-16.2); Lymphocytes # 1.5 K/mm3 (0.7-4.5); Lymphocytes % 19.8 % (10-50); Mean Corpuscular HGB Conc 32.2 g/dL (31.8-35.4); Mean Corpuscular Hemoglobin 33.5 pg (27.0-31.2); Mean Corpuscular Volume 104.3 fl (81-99); Monocytes # 0.6 K/mm3 (0.1-1.0); Neutrophils # 5.4 K/mm3 (1.8-7.8); Neutrophils % 69.1 % (37.0-80.0); Platelet Count 159 K/mm3 (142-424); Red Blood Count 3.52 M/mm3 (4.20-5.40); Red Cell Distribution Width 15.6 % (11.5-17.5); White Blood Count 7.8 K/mm3 (4.8-10.8)
[2025-01-06 13:25] LABS: Free T4 (Free Thyroxine) 1.19 ng/dl (0.78-2.19)
[2025-01-06 15:25] LABS: Albumin Level 4.3 g/dl (3.5-5.0); Chloride 99 mmol/L (98-107); Potassium 4.8 mmoL/L (3.5-5.1); Sodium 139 mmol/L (136-145)
[2025-01-06 15:27] LABS: Blood Urea Nitrogen 46 mg/dl (7-17); Estimated Glomerular Filt Rate 22 ml/min (>60); GFR (African American) 27 ML/MIN (>60)
[2025-01-06 15:28] LABS: Alanine Aminotransferase 49 U/L (12-78); Alkaline Phosphatase 278 U/L (38-126); Anion Gap 14.8 mEq/L (5-15); Aspartate Amino Transferase 82 U/L (14-36); Bilirubin,Direct 0.4 mg/dl (0.0-0.4); Bilirubin,Indirect 0.3 mg/dL (0.0-0.9); Bilirubin,Total 0.7 mg/dl (0.2-1.3); Bilirubin,Unconjugated 0.4 mg/dL (0.0-1.1); Calcium 8.7 mg/dl (8.4-10.2); Carbon Dioxide 30 mmol/L (22.0-30.0); Cholesterol 110 mg/dl (140-200); Iron 118 ug/dL (37-170); Magnesium 2.1 mg/dl (1.6-2.3); Total Protein,Serum 7.4 g/dl (6.3-8.2); Triglycerides 97 mg/dl (30-150); VLDL Cholesterol 19 mg/dL (0-40)
[2025-01-06 15:34] LABS: Glucose 42 mg/dl (74-100)
[2025-01-06 15:41] LABS: Direct LDL Cholesterol < 30.00 mg/dL (100-129)
[2025-01-06 15:44] LABS: Total Iron Binding Capacity 380 ug/dL (265-497)
[2025-01-06 16:04] LABS: Ferritin 53.2 ng/ml (11.1-264)
[2025-01-06 16:34] LABS: Folate > 20.00 ng/mL
[2025-01-06 16:42] LABS: Chol/HDL Ratio 1.9 (1-3.5); HDL Cholesterol 59 mg/dl (40-60)
[2025-01-06 16:52] LABS: NT Pro Brain Natriuretic Pep. 1160 pg/mL (0-125)
[2025-01-06 17:14] LABS: Thyroid Stimulating Hormone 1.84 uIU/mL (0.465-4.68)
[2025-01-06 17:33] LABS: Vitamin B12 958 pg/mL (239-931)
[2025-01-11 21:09] LABS: 1,25 Dihydroxy Vitamin D 23 pg/mL (.); 1,25-Dihydroxy, Vitamin D-2 <10 pg/mL (.); 1,25-Dihydroxy, Vitamin D-3 23 pg/mL (.)
== END 2025-01-06 23:59 | disposition home or self-care (01) ==
PROVIDERS: PCP Family Medicine; Visit Provider Physician Assistant
DX: I95.2 Hypotension due to drugs (principal); R42 Dizziness and giddiness; R60.0 Localized edema; E11.9 Type 2 diabetes mellitus without complications; Z79.4 Long term (current) use of insulin; R06.09 Other forms of dyspnea; R53.83 Other fatigue; I11.0 Hypertensive heart disease with heart failure; I50.32 Chronic diastolic (congestive) heart failure; N28.9 Disorder of kidney and ureter, unspecified; Z68.39 Body mass index [BMI] 39.0-39.9, adult
CPT/HCPCS: 36415; 71046; 80048; 80061; 80076; 82607; 82652; 82728; 82746; 83540; 83550; 83735; 83880; 84439; 84443; 85025

== ENCOUNTER 2025-01-11 12:09 | Outpatient (CLI) | payer MEDICARE, SELFPAY ==
--- NOTE | 2025-01-11 12:15 | CA_ITS ---
APPROVED REPORT EXAM: Comprehensive 2D, Doppler, and color-flow Echocardiogram Speaker Mounter: AMADOR Winters, RVS Ht: 5 ft 1 in Wt: 211lbs BSA: 1.93 BP: 121/67 mmHg Indications: CM, SOA, Weight gain, Edema, Afib, Pacer, CAD Echo Enhancing Agent Comments: TDS- Extremely Limited window due to cardiac seating. 2D Dimensions Left Atrium 4.42 cm F: 2.7 - 3.8 LA Volume 116.00 mL LA Volume Index [id number] mL/m2 (M/F) 16-34 EF AP4 24.00 % GL Strain -7.0 % M-Mode Dimensions RVDd 3.55 cm (0.9-2.6) LA Diam 4.72 cm (1.9-4.0) LVDd 4.78 cm (3.5-5.7) LVDs 4.34 cm (3.5-5.7) IVSd 1.48 cm (0.6-1.1) PWd 1.33 cm (0.6-1.1) EF (Teich) 20.30% EPSs 0.76 cm FS 9.20% EDV (Teich) 106.50 mL TAPSE 1.43 (<1.7) ESV (Teich) 84.90 mL LV Diastology E Decel Time 177 (160-240 msec) E/A Ratio 3.99 MED A' 6.30 cm/s LAT A' 2.50 cm/s Aortic Valve BRITANY Index 1.00 cm2/m2 AoV Peak Sourav. 77.0 (50-130 cm/s) AO Peak GR. 2.40 mmHg AO Mean GR. 1.20 (<5 mmHg) AO VTI 14.3 (18-25 cm) BRITANY (VTI) 1.98 (2.5-4.5 cm2) Mitral Valve MV A Velocity 26.0 (40-130 cm/s) E/A Ratio 3.99 Pulmonary Valve PV Peak Velocity 66.0 (50-150 cm/s) Tricuspid Valve TR P. Velocity 212.00 cm/s RAP Estimate 10.00 mmHg RVSP 28.00 mmHg Left Ventricle The left ventricle is normal size. The left ventricular systolic function is moderately to severely reduced. There is increased LV wall thickness. The septum is asynchronous. There is moderate to severe global hypokinesis present. Grade 3 diastolic dysfunction is present. LVEF is 30%. Right Ventricle The right ventricle is moderately dilated. Right ventricle is moderately hypokinetic. There is a device lead in the right ventricle. Atria Left atrium is severely dilated. Right atrium is severely dilated. There is no Doppler evidence of interatrial shunt. Aortic Valve Aortic valve is mildly thickened. Trace aortic regurgitation. There is no aortic valvular stenosis. Mitral Valve The mitral the posterior mitral valve leaflet is tethered and restricted in motion. No evidence of mitral valve stenosis. At least moderate mitral regurgitation is present. The MR jet is eccentric and posteriorly directed. The mechanism of MR is likely functional due to tethering of the posterior MV leaflet (class IIIB) Tricuspid Valve Tricuspid valve is grossly normal in structure and function. Mild tricuspid regurgitation. RVSP is 25-30 mmHg, but may be underestimated in the setting of technically difficult study. Pulmonic Valve The pulmonary valve is normal in structure. Mild pulmonic regurgitation. Great Vessels The aortic root is normal in size. IVC is normal in size and collapses >50% with inspiration. Pericardium There is no pericardial effusion. Other Information Study Quality: Technically Difficult Conclusion Technically difficult study due to poor acoustic windows. Moderate to severe reduction global LV systolic function (LVEF 30%). Grade 3 diastolic dysfunction. Moderate RV dilation with moderate reduction in RV function. Severe biatrial dilation. Tethering of the posterior MV leaflet. At least moderate MR (functional MR). The MR jet is eccentric and posteriorly directed. Mild TR, mild PI. RVSP is 25-30 mmHg (may be underestimated). Electronically signed by : Natalia Oviedo MD 01/11/2025 22:55:17
[2025-01-11 13:21] LABS: Chloride 97 mmol/L (98-107); Potassium 4.4 mmoL/L (3.5-5.1); Sodium 136 mmol/L (136-145)
[2025-01-11 13:24] LABS: Anion Gap 11.4 mEq/L (5-15); Blood Urea Nitrogen 46 mg/dl (7-17); Calcium 8.9 mg/dl (8.4-10.2); Carbon Dioxide 32 mmol/L (22.0-30.0); Estimated Glomerular Filt Rate 38 ml/min (>60); GFR (African American) 45 ML/MIN (>60); Glucose 100 mg/dl (74-100)
[2025-01-11 13:33] LABS: NT Pro Brain Natriuretic Pep. 1500 pg/mL (0-125)
== END 2025-01-11 23:59 | disposition home or self-care (01) ==
LOC: RT 12:10
PROVIDERS: PCP Family Medicine; Visit Provider Physician Assistant
DX: I51.7 Cardiomegaly (principal); I34.0 Nonrheumatic mitral (valve) insufficiency; I36.1 Nonrheumatic tricuspid (valve) insufficiency; I37.1 Nonrheumatic pulmonary valve insufficiency; R42 Dizziness and giddiness; I95.2 Hypotension due to drugs; R60.0 Localized edema; E11.9 Type 2 diabetes mellitus without complications; Z79.4 Long term (current) use of insulin; R06.09 Other forms of dyspnea; I50.32 Chronic diastolic (congestive) heart failure; N28.9 Disorder of kidney and ureter, unspecified; R53.83 Other fatigue; R79.89 Other specified abnormal findings of blood chemistry
CPT/HCPCS: 36415; 80048; 83880; 93306

== ENCOUNTER 2025-01-11 15:25 | Observation (INO) | payer MEDICARE, SELFPAY ==
--- NOTE | 2025-01-11 15:40 | HMH.PHAINT1 ---
Pharmacy Intervention Comments: MEDICATION RECONCILIATION COMPLETED ON PATIENT USING EXTERNAL FILL HISTORY FROM PHARMACY, LIST FROM CARDIOLOGY OFFICE, AND NATHEN REPORT. -NESTOR MORRISD
[2025-01-11 16:00] VITALS: BP 152/70; PULSE 70; RESP 18; TEMP 36.4; O2SAT 100; BMI 40.2
[2025-01-11 16:11] LABS: Basophils # 0.1 K/mm3 (0-0.2); Basophils % 0.9 % (0.1-2.0); Eosinophils # 0.2 K/mm3 (0.0-0.4); Eosinophils % 2.8 % (0.1-12.0); Hematocrit 37.6 % (37.0-47.0); Hemoglobin 12.4 g/dL (12.2-16.2); Lymphocytes # 1.2 K/mm3 (0.7-4.5); Lymphocytes % 17.3 % (10-50); Mean Corpuscular Hemoglobin 34.2 pg (27.0-31.2); Mean Corpuscular Volume 103.6 fl (81-99); Mean Platelet Volume 9.9 fl (7.4-10.4); Monocytes # 0.5 K/mm3 (0.1-1.0); Monocytes % 7.8 % (1.7-9.3); Neutrophils # 4.8 K/mm3 (1.8-7.8); Neutrophils % 70.8 % (37.0-80.0); Platelet Count 183 K/mm3 (142-424); Red Blood Count 3.63 M/mm3 (4.20-5.40); Red Cell Distribution Width 15.6 % (11.5-17.5); White Blood Count 6.8 K/mm3 (4.8-10.8)
[2025-01-11 16:18] LABS: Chloride 95 mmol/L (98-107)
[2025-01-11 16:19] LABS: Albumin Level 4.5 g/dl (3.5-5.0); Potassium 4.3 mmoL/L (3.5-5.1); Sodium 136 mmol/L (136-145)
[2025-01-11 16:21] LABS: Anion Gap 11.3 mEq/L (5-15); Blood Urea Nitrogen 47 mg/dl (7-17); Carbon Dioxide 34 mmol/L (22.0-30.0); Creatinine Clearance Estimated 59 mL/min (50-200); Estimated Glomerular Filt Rate 38 ml/min (>60); GFR (African American) 45 ML/MIN (>60)
[2025-01-11 16:22] LABS: Alanine Aminotransferase 52 U/L (12-78); Albumin/Globulin Ratio 1.2 (1.1-1.8); Alkaline Phosphatase 366 U/L (38-126); Aspartate Amino Transferase 63 U/L (14-36); Bilirubin,Total 0.7 mg/dl (0.2-1.3); Calcium 9.1 mg/dl (8.4-10.2); Globulin 3.9 g/dL (1.3-3.2); Glucose 66 mg/dl (74-100); Magnesium 2.3 mg/dl (1.6-2.3); Total Protein,Serum 8.4 g/dl (6.3-8.2)
[2025-01-11 16:49] LABS: POC Glucose,Bedside 60 (70-110)
--- NOTE | 2025-01-11 16:49 | PC.NURSE ---
fsbg of 62 with no symptoms...pt. given OJ and a dinner tray.
--- NOTE | 2025-01-11 16:49 | EXP.HP ---
History of Present Illness *Admission Date: 01/11/25 *Reason for visit:: dyspnea with exertion *History of present illness: Ms. Charlton is a 69-year-old female with combined heart failure. She presented to cardiology clinic today for routine follow-up. Complains of having worsening shortness of breath with exertion over the past several weeks along with unexplained weight gain. Has had adjustments to her diuretics as an outpatient with mixed benefit. On evaluation encourage clinic today, concern for volume overload and CHF exacerbation. Echo obtained with preliminary read showing EF less than 30%. Given concern for volume overload and acute exacerbation of CHF, cardiology requested admission for diuresis and further management. On evaluation after arriving to the floor, patient stable on room air but quite dyspneic with any exertion. Has edema in bilateral lower extremities. Denies any chest pain, nausea, vomiting, confusion, syncope. Afebrile. [facility] Disclaimer: The information contained in this section may have been updated after the patient was seen, as this information can be updated by other users. Medical History Elevated serum creatinine Dizziness Hypotension HFrEF (heart failure with reduced ejection fraction) Cardiac defibrillator in situ SOB (shortness of breath) on exertion HLD (hyperlipidemia) Anxiety Tachycardia Surgical History History of colonoscopy History of tonsillectomy History of cholecystectomy History of appendectomy History of automatic internal cardiac defibrillator (AICD) History of implanted electronic device Family History Other Family history of COPD (chronic obstructive pulmonary disease) Family history of cancer Family history of cardiac arrhythmia Family history of diabetes mellitus type II Family history of hypothyroidism Family history of myocardial infarction Social History Smoking Status: Never smoker alcohol intake: never counseling provided: none substance use type: denies use current occupational status: other Travel in the last 8 weeks: None household members: family housing: house lives independently: Yes marital status: single education level: high school current occupational exposures/hazards: No caffeine: No do you feel safe at home: Yes victim of physical abuse: No victim of emotional abuse: No victim of sexual abuse: No would you like helpful sources: No Have you lived/traveled outside US in past 30 days?: No Contact w/someone who lives/traveled outside US past 30 days?: No Exposure to someone with infectious disease in past 14 days?: No Do you have a fever (greater than 100.4 F or 38 C)?: No Have you tested positive for COVID-19: No Exposed to someone with COVID-19 in past 14 days?: No Do you have a sore throat?: No Do you have a cough?: No Do you have any weakness?: No Are you experiencing any nausea/vomitting?: No Do you have any diarrhea?: No Are you experiencing any unusual bleeding?: No Do you have any muscle aches/pain?: No Do you have any abdominal pain?: No Are you experiencing loss of taste or smell?: No Other Medical History Have you received the Flu Vaccine for this season: No Have you received the Pneumonia Vaccine: Yes Review of Systems Review of Systems Review of systems (narrative): 14 point review of systems performed, pertinent positives and negatives as per HPI Meds Home Medications and Allergies Home Medications ?Medication ?Instructions ?Recorded ?Confirmed ?Type atorvastatin 10 mg tablet 10 mg PO DAILY 12/03/17 01/11/25 History pantoprazole 40 mg tablet,delayed 40 mg PO BID 12/03/17 01/11/25 History release tramadol 50 mg tablet 50 mg PO Q6HP PRN Mild Pain (Scale 12/03/17 01/11/25 History Score 1-4) phenobarbital 32.4 mg tablet 97.2 mg PO HS 02/12/20 01/11/25 History digoxin 125 mcg (0.125 mg) tablet 125 mcg PO DAILY 03/27/20 01/11/25 History ropinirole 2 mg tablet 2 mg PO HS 03/28/20 01/11/25 History gabapentin 800 mg tablet 800 mg PO TID 02/26/21 01/11/25 History insulin human U-100 NPH-regulr 60 unit SQ HS 05/31/24 01/11/25 History 70-30 mix 100 unit/mL subcutaneous susp (Novolin 70/30 U-100 Insulin) insulin human U-100 NPH-regulr 100 unit SQ DAILY 05/31/24 01/11/25 History 70-30 mix 100 unit/mL subcutaneous susp (Novolin 70/30 U-100 Insulin) torsemide 20 mg tablet 20 mg PO BID 05/31/24 01/11/25 History spironolactone 25 mg tablet 25 mg PO BID 11/26/24 01/11/25 History dapagliflozin propanediol 10 mg 10 mg PO DAILY #30 tabs 12/14/24 01/11/25 Rx tablet (Farxiga) valsartan 40 mg tablet 40 mg PO BID #60 tabs 12/27/24 01/11/25 Rx semaglutide 0.25 mg or 0.5 mg (2 0.5 mg SQ WEEKLY 01/06/25 01/11/25 History mg/3 mL) subcutaneous pen injector (Ozempic) allopurinol 100 mg tablet 100 mg PO DAILY 01/11/25 01/11/25 History bisoprolol fumarate 5 mg tablet 5 mg PO DAILY 01/11/25 01/11/25 History isosorbide mononitrate 30 mg 30 mg PO DAILY 01/11/25 01/11/25 History tablet,extended release 24 hr loratadine 10 mg tablet 10 mg PO DAILY 01/11/25 01/11/25 History rivaroxaban 20 mg tablet (Xarelto) 20 mg PO QPMWITHMEAL 01/11/25 01/11/25 History New Prescriptions to Start Prescriptions: Allergies Allergy/AdvReac Type Severity Reaction Status Date / Time metoclopramide (From REGLAN) Allergy Mild SHAKES Verified 01/11/25 14:37 empagliflozin (From AdvReac Mild itching Verified 01/11/25 14:37 Jardiance) Exam Data for Last 24 hours Vital signs and Labs for Last 24 Hours: Temp Pulse Resp BP Pulse Ox O2 Del Method 97.6 F 70 18 152/70 H 100 Room Air 01/11/25 16:00 01/11/25 16:00 01/11/25 16:00 01/11/25 16:00 01/11/25 16:00 01/11/25 16:30 Laboratory Results - last 24 hr 01/11/25 16:02: WBC 6.8, RBC 3.63 L, Hgb 12.4, Hct 37.6, MCV 103.6 H, MCH 34.2 H, MCHC 33.0, RDW 15.6, Plt Count 183, MPV 9.9, Neut % (Auto) 70.8, Lymph % (Auto) 17.3, [place] % (Auto) 7.8, Eos % (Auto) 2.8, Baso % (Auto) 0.9, Neut # (Auto) 4.8, Lymph # (Auto) 1.2, [place] # (Auto) 0.5, Eos # (Auto) 0.2, Baso # (Auto) 0.1, Sodium 136, Potassium 4.3, Chloride 95 L, Carbon Dioxide 34 H, Anion Gap 11.3, BUN 47 H, Creatinine 1.40 H, Estimated Creat Clear 59, Estimated GFR 38 L, Est GFR ( Amer) 45 L, Glucose 66 L D, Calcium 9.1, Magnesium 2.3, Total Bilirubin 0.7, AST 63 H, ALT 52, Alkaline Phosphatase 366 H, Total Protein 8.4 H, Albumin 4.5, Globulin 3.9 H, Albumin/Globulin Ratio 1.2 01/11/25 16:42: POC Glucose 60 L I & O for Last 24 hours: Intake & Output 01/08/25 01/09/25 01/10/25 01/11/25 23:59 23:59 23:59 23:59 Weight 96.615 kg Constitutional Constitutional: no acute distress, morbidly obese, chronically ill appearing and cooperative *Routine HEENT Exam Head: Present normocephalic Eye: Present EOMI and PERRL ENT: Present mucous membranes moist *Routine Neck Exam Neck: Present supple; Absent lymphadenopathy Routine Chest/Breast/Axilla Exam Chest wall: Absent tenderness *Routine Respiratory Exam Respiratory: Present prolonged expiratory phase; Absent rhonchi, wheezes or crackles *Routine Cardiovascular Exam Cardiovascular: Present RRR *Routine Abdominal Exam Abdominal: Present soft and normoactive bowel sounds; Absent tenderness *Routine Rectal Exam Rectal:: deferred *Routine Genitalia Exam Genitalia:: deferred *Routine Extremities Exam Extremities: Present edema (2+ to knees); Absent cyanosis or clubbing *Routine Skin Exam Skin: Present intact and warm; Absent rash *Routine Neurological Exam Neurological: Present alert, oriented X3 and moving all extremities; Absent altered mental status Assessment and Plan *Assessment and plan (1) Type 2 diabetes mellitus, with long-term current use of insulin: Status: Acute Qualifiers: Diabetes mellitus complication status: without complication Qualified Code(s): E11.9 - Type 2 diabetes mellitus without complications; Z79.4 - intermission coordinator (current) use of insulin Category: Medical Code(s): E11.9 - Type 2 diabetes mellitus without complications; Z79.4 - intermission coordinator (current) use of insulin (2) Acute on chronic combined systolic and diastolic heart failure: Status: Acute Category: Medical Code(s): I50.43 - Acute on chronic combined systolic (congestive) and diastolic (congestive) heart failure (3) Diabetic neuropathy: Status: Acute Category: Medical Code(s): E11.40 - Type 2 diabetes mellitus with diabetic neuropathy, unspecified (4) Morbid obesity with body mass index (BMI) of 40.0 to 44.9 in adult: Status: Acute Category: Medical Code(s): E66.01 - Morbid (severe) obesity due to excess calories; Z68.41 - Body mass index [BMI] 40.0-44.9, adult (5) Atrial fibrillation: Status: Chronic Qualifiers: Atrial fibrillation type: longstanding persistent Qualified Code(s): I48.11 - Longstanding persistent atrial fibrillation Category: Medical Code(s): I48.91 - Unspecified atrial fibrillation (6) Anxiety: Status: Chronic Category: Medical Code(s): F41.9 - Anxiety disorder, unspecified (7) HLD (hyperlipidemia): Status: Chronic Qualifiers: Hyperlipidemia type: mixed hyperlipidemia Qualified Code(s): E78.2 - Mixed hyperlipidemia Category: Medical Code(s): E78.5 - Hyperlipidemia, unspecified Plan 69-year-old female with combined heart failure. Presented to cardiology clinic for routine follow-up. Found to have worsening dyspnea with exertion and weight gain. Discussed case with cardiology, request admission for diuresis and treatment of volume overload. I agreed to admit for further management. Problems addressed as follows: Acute on chronic combined heart failure Hyperlipidemia Hypertension -BNP 1500. White count normal at 6.8, hemoglobin 12.4. -Kidney function abnormal with BUN 47, creatinine 1.4 appears to be about her baseline. Sodium 136, potassium 4.3, chloride 95. Magnesium 2.3. -Initiate Bumex drip at 0.5 mg an hour. Strict monitoring of output -Currently on room air, goal sats greater 90%. Supplemental oxygen if needed. -Repeat CBC, CMP, magnesium ordered for the morning; fasting lipid panel ordered for the morning -Echo obtained, formal read still pending. -Continue home Lipitor 10 mg daily -Continue home digoxin 125 mcg daily, bisoprolol 5 mg daily, isosorbide mononitrate 30 mg daily, Xarelto 20 mg nightly -Continue spironolactone 25 mg twice daily Diabetes Neuropathy - A1c well-controlled at 7. -Continue home insulin regimen with combo 75/25. Decrease to 30 units nightly, 60 units in the morning. -Continue gabapentin 800 mg 3 times a day daily; ropinirole 2 mg nightly CKD 3 -BUN 47, creatinine 1.4. Appears to be about baseline. Caution with nephrotoxins Continue phenobarbital 97.2 mg nightly for seizure disorder Continue pantoprazole 40 mg twice daily for GERD Gout: Continue allopurinol 100 mg daily Morbid obesity: Complicates all aspects of her care Full code Xarelto 20 mg nightly Diabetic diet
[2025-01-11] MEDS: BUMETANIDE 10 MG in 0.9 % SODIUM CHLORIDE 60 ML 5 MG IV (17:33)
--- NOTE | 2025-01-11 17:34 | PC.NURSE ---
Dose of bumex verified with Doretha valiente.
[2025-01-11] MEDS: PATIENT'S OWN HOME MEDICATION (Rivaroxaban [Xarelto] 20 mg tablet) 20 EACH PO (17:56)
[2025-01-11 20:00] VITALS: BP 107/56; PULSE 71; RESP 16; TEMP 36.6; O2SAT 97
[2025-01-11] MEDS: PANTOPRAZOLE 40MG TABLET 40 MG PO (20:32)
[2025-01-11] MEDS: GABAPENTIN 800MG TABLET 800 MG PO (20:32)
[2025-01-11] MEDS: PHENOBARBITAL 32.4 MG 97.2 MG PO (20:32)
[2025-01-11 20:41] LABS: POC Glucose,Bedside 91 (70-110)
--- NOTE | 2025-01-11 20:59 | EXP.EVENT.NO ---
Problem, nurses noted that the patient's blood sugars have been low. She is presently eating a sandwich and a snack, patient gives a history of being on is much as 60 at night finding her blood sugar very low family practice has been decreasing it down to 30. EXAM: Patient is eating well she is alert and oriented showing no signs of hypoglycemia Plan will decrease her long-acting insulin combination insulin from 30 tonight placed on hold only give her 20 and restart the 30 again tomorrow., Will need to be reevaluated if continues with lower than normal sugars. Patient states she feels best when being somewhere between 120 and 140.
[2025-01-11] MEDS: humaLOG MIX 75/25 3ML FLEXPEN 20 UNIT SUBCUT (22:47)
[2025-01-12 00:15] LABS: POC Glucose,Bedside 108 (70-110)
[2025-01-12] MEDS: TRAMADOL 50MG TABLET 50 MG PO (00:22)
[2025-01-12 04:00] VITALS: BP 138/70; PULSE 69; RESP 16; TEMP 36.7; O2SAT 97; BMI 38.7
--- NOTE | 2025-01-12 04:52 | EXP.EVENT.NO ---
Patient notified nurse that she was having severe leg cramps. Patient has been on Bumex drip last labs did not show any significant problems with potassium or magnesium Morning labs have been ordered to see if any electrolyte replacement as needed. Presently we will try morphine 2 mg IV to see if we can bring the patient some relief
[2025-01-12] MEDS: MORPHINE 2MG/ML SYRINGE 2 MG IV (04:54)
[2025-01-12] MEDS: ONDANSETRON 4MG/2ML VIAL 4 MG IV (05:04)
--- NOTE | 2025-01-12 05:40 | PC.NURSE ---
pt called out around 0500 crying due to leg cramps. notified jeri cameron for morphine and zofran. morphine made the pt nauseas, treated with zofran with relief from both pain and nauseous. independent with ambulating to the br. sb wihtin reach and no needs at this time
[2025-01-12 07:00] LABS: Basophils % 0.6 % (0.1-2.0); Eosinophils # 0.2 K/mm3 (0.0-0.4); Eosinophils % 2.9 % (0.1-12.0); Hematocrit 35.1 % (37.0-47.0); Hemoglobin 11.6 g/dL (12.2-16.2); Lymphocytes # 1.2 K/mm3 (0.7-4.5); Lymphocytes % 16.8 % (10-50); Mean Corpuscular Hemoglobin 34.2 pg (27.0-31.2); Mean Corpuscular Volume 103.5 fl (81-99); Mean Platelet Volume 10.2 fl (7.4-10.4); Monocytes # 0.6 K/mm3 (0.1-1.0); Monocytes % 8.7 % (1.7-9.3); Neutrophils # 5.1 K/mm3 (1.8-7.8); Neutrophils % 70.7 % (37.0-80.0); Platelet Count 178 K/mm3 (142-424); Red Blood Count 3.39 M/mm3 (4.20-5.40); Red Cell Distribution Width 15.7 % (11.5-17.5); White Blood Count 7.1 K/mm3 (4.8-10.8)
[2025-01-12 07:10] LABS: Chloride 94 mmol/L (98-107)
[2025-01-12 07:11] LABS: Potassium 4.1 mmoL/L (3.5-5.1); Sodium 136 mmol/L (136-145)
[2025-01-12 07:13] LABS: Alanine Aminotransferase 43 U/L (12-78); Albumin/Globulin Ratio 1.1 (1.1-1.8); Alkaline Phosphatase 289 U/L (38-126); Anion Gap 9.1 mEq/L (5-15); Aspartate Amino Transferase 48 U/L (14-36); Bilirubin,Total 0.7 mg/dl (0.2-1.3); Blood Urea Nitrogen 43 mg/dl (7-17); Carbon Dioxide 37 mmol/L (22.0-30.0); Cholesterol 109 mg/dl (140-200); Creatinine Clearance Estimated 50 mL/min (50-200); Estimated Glomerular Filt Rate 32 ml/min (>60); GFR (African American) 39 ML/MIN (>60); Globulin 3.7 g/dL (1.3-3.2); Total Protein,Serum 7.7 g/dl (6.3-8.2); Triglycerides 92 mg/dl (30-150); VLDL Cholesterol 18 mg/dL (0-40)
[2025-01-12 07:14] LABS: Calcium 8.7 mg/dl (8.4-10.2); Chol/HDL Ratio 2.4 (1-3.5); Glucose 81 mg/dl (74-100); HDL Cholesterol 46 mg/dl (40-60); Magnesium 2.1 mg/dl (1.6-2.3)
[2025-01-12 07:28] LABS: POC Glucose,Bedside 90 (70-110)
[2025-01-12 07:33] LABS: Direct LDL Cholesterol < 30.00 mg/dL (100-129)
[2025-01-12 08:00] VITALS: BP 104/49; PULSE 67; RESP 18; TEMP 36.6; O2SAT 98
[2025-01-12] MEDS: SPIRONOLACTONE 25MG TABLET 25 MG PO (09:12)
[2025-01-12] MEDS: PANTOPRAZOLE 40MG TABLET 40 MG PO (09:12)
[2025-01-12] MEDS: ISOSORBIDE MONO 30MG TAB.ER.24H 30 MG PO (09:12)
[2025-01-12] MEDS: GABAPENTIN 800MG TABLET 800 MG PO ×2 (09:12→13:06)
[2025-01-12] MEDS: BUMETANIDE 1MG/4ML VIAL 2 MG IV (09:12)
[2025-01-12] MEDS: ALLOPURINOL 100MG TABLET 100 MG PO (09:12)
[2025-01-12] MEDS: BISOPROLOL 5MG TABLET 5 MG PO (09:12)
[2025-01-12] MEDS: DAPAGLIFLOZIN PROPANEDIOL 10 MG TABLET PO (09:12)
[2025-01-12 09:13] VITALS: PULSE 67
[2025-01-12] MEDS: DIGOXIN 0.125MG TABLET 125 MCG PO (09:13)
--- NOTE | 2025-01-12 10:02 | DIET.NUTRFU ---
patient requested to see RD today, she wanted to review diabetic meal recommendations. Patient has A1c of 7.0 she is on ozempic and insulin. Reviewed her daily meal plan and she is probably not getting enough carb consistently. She had low BS this morning and she reports that happens at home also. She eats only 1-2 carbs at breakfast, regularly skips lunch and only 1 carb at dinner. Reviewed some smart snacks choices- carb/pritein to add at bedtime. Also reviewed good protein choices, she did not eat protein or fiber in for breakfast today. Reviewed portion control and some of her daily foods. Will include handouts in discharge information per her request
--- NOTE | 2025-01-12 11:11 | P.CONCA_ITS ---
History of Present Illness History of Present Illness Consult date: 01/12/25 Requesting physician: Seth Liu Consult reason: congestive heart failure and known to you Chief complaint: SOA History of present illness: 69-year-old white female well-established patient of our practice with history of nonischemic cardiomyopathy and HFrEF status post BiV ICD. She also has an impulse device implanted September 2022, paroxysmal atrial fibrillation, type 2 diabetes, CKD stage III, morbid obesity. Last heart cath was 2023 which showed nonobstructive disease. Patient seen in the office several times recently for complaints of worsening shortness of breath and peripheral edema. Repeat 2D echo yesterday showed a decline in EF from 40% last April to 30% now. Patient was conversationally winded in the office with lower extremity edema so she was admitted overnight for IV diuretics. Patient was started on Bumex 1 mg/h overnight. She has diuresed 2.5 L and reports subjective improvement overnight. Creatinine up slightly. [facility] Disclaimer: The information contained in this section may have been updated after the patient was seen, as this information can be updated by other users. Medical History Elevated serum creatinine Dizziness Hypotension HFrEF (heart failure with reduced ejection fraction) Cardiac defibrillator in situ SOB (shortness of breath) on exertion HLD (hyperlipidemia) Anxiety Tachycardia Surgical History History of colonoscopy History of tonsillectomy History of cholecystectomy History of appendectomy History of automatic internal cardiac defibrillator (AICD) History of implanted electronic device Family History Other Family history of COPD (chronic obstructive pulmonary disease) Family history of cancer Family history of cardiac arrhythmia Family history of diabetes mellitus type II Family history of hypothyroidism Family history of myocardial infarction Social History Smoking Status: Never smoker alcohol intake: never counseling provided: none substance use type: denies use current occupational status: other Travel in the last 8 weeks: None household members: family housing: house lives independently: Yes marital status: single education level: high school current occupational exposures/hazards: No caffeine: No do you feel safe at home: Yes victim of physical abuse: No victim of emotional abuse: No victim of sexual abuse: No would you like helpful sources: No Have you lived/traveled outside US in past 30 days?: No Contact w/someone who lives/traveled outside US past 30 days?: No Exposure to someone with infectious disease in past 14 days?: No Do you have a fever (greater than 100.4 F or 38 C)?: No Have you tested positive for COVID-19: No Exposed to someone with COVID-19 in past 14 days?: No Do you have a sore throat?: No Do you have a cough?: No Do you have any weakness?: No Are you experiencing any nausea/vomitting?: No Do you have any diarrhea?: No Are you experiencing any unusual bleeding?: No Do you have any muscle aches/pain?: No Do you have any abdominal pain?: No Are you experiencing loss of taste or smell?: No Review of Systems Constitutional Constitutional: Denies fatigue and Reports weakness Eyes Eyes: Denies loss of vision ENT Ears, Nose, Mouth, and Throat: Denies hearing loss and Denies vertigo *Cardiovascular Cardiovascular: Denies chest pain, Denies dyspnea and Denies syncope *Respiratory Respiratory: Denies cough and Denies dyspnea *Gastrointestinal Gastrointestinal: Denies change in stool character, Denies nausea and Denies vomiting *Musculoskeletal Musculoskeletal: Denies muscle weakness Integumentary/Breasts Skin/Breast: Denies changing lesions *Neurologic Neurologic: Denies loss of vision, Denies syncope, Denies vertigo and Reports weakness Endocrine Endocrine: Denies fatigue Exam Data for Last 24 hours Vital signs and Labs for Last 24 Hours: Temp Pulse Resp BP Pulse Ox O2 Del Method 97.8 F 67 18 104/49 L 98 Room Air 01/12/25 08:00 01/12/25 09:13 01/12/25 08:00 01/12/25 08:00 01/12/25 08:00 01/12/25 09:00 Laboratory Results - last 24 hr 01/11/25 16:02: WBC 6.8, RBC 3.63 L, Hgb 12.4, Hct 37.6, MCV 103.6 H, MCH 34.2 H , MCHC 33.0, RDW 15.6, Plt Count 183, MPV 9.9, Neut % (Auto) 70.8, Lymph % (Auto) 17.3, [place] % (Auto) 7.8, Eos % (Auto) 2.8, Baso % (Auto) 0.9, Neut # (Auto) 4.8, Lymph # (Auto) 1.2, [place] # (Auto) 0.5, Eos # (Auto) 0.2, Baso # (Auto) 0.1, Sodium 136, Potassium 4.3, Chloride 95 L, Carbon Dioxide 34 H, Anion Gap 11.3, BUN 47 H, Creatinine 1.40 H, Estimated Creat Clear 59, Estimated GFR 38 L, Est GFR ( Amer) 45 L, Glucose 66 L D, Hemoglobin A1c 7.0 H, Calcium 9.1, Magnesium 2.3, Total Bilirubin 0.7, AST 63 H, ALT 52, Alkaline Phosphatase 366 H, Total Protein 8.4 H, Albumin 4.5, Globulin 3.9 H, Albumin/Globulin Ratio 1.2 01/11/25 16:42: POC Glucose 60 L 01/11/25 20:29: POC Glucose 91 01/12/25 00:08: POC Glucose 108 01/12/25 06:16: WBC 7.1, RBC 3.39 L, Hgb 11.6 L, Hct 35.1 L, MCV 103.5 H, MCH 34.2 H, MCHC 33.0, RDW 15.7, Plt Count 178, MPV 10.2, Neut % (Auto) 70.7, Lymph % (Auto) 16.8, [place] % (Auto) 8.7, Eos % (Auto) 2.9, Baso % (Auto) 0.6, Neut # (Auto) 5.1, Lymph # (Auto) 1.2, [place] # (Auto) 0.6, Eos # (Auto) 0.2, Baso # (Auto) 0.0, Sodium 136, Potassium 4.1, Chloride 94 L, Carbon Dioxide 37 H, Anion Gap 9.1, BUN 43 H, Creatinine 1.60 H, Estimated Creat Clear 50, Estimated GFR 32 L, Est GFR ( Amer) 39 L, Glucose 81 D, Calcium 8.7, Magnesium 2.1, Total Bilirubin 0.7, AST 48 H, ALT 43, Alkaline Phosphatase 289 H, Total Protein 7.7, Albumin 4.0 D, Globulin 3.7 H, Albumin/Globulin Ratio 1.1, Triglycerides 92, Cholesterol 109 L, LDL Cholesterol Direct < 30.00 L, VLDL Cholesterol 18, HDL Cholesterol 46, Cholesterol/HDL Ratio 2.4 01/12/25 07:21: POC Glucose 90 I & O for Last 24 hours: Intake & Output 01/09/25 01/10/25 01/11/25 01/12/25 23:59 23:59 23:59 23:59 Intake Total 360 / 360 480 / 480 Output Total 1900 / 1900 1200 / 1200 Balance -1540 / -1540 -720 / -720 Weight 213 lb 205 lb Constitutional Constitutional: no acute distress and cooperative *Routine HEENT Exam Eye: Present PERRL *Routine Respiratory Exam Respiratory: Present CTA bilaterally; Absent accessory muscle use, wheezes or crackles *Routine Cardiovascular Exam Cardiovascular: Present RRR, Normal S1 and Normal S2; Absent murmur, gallop or rubs *Routine Abdominal Exam Abdominal: Present soft; Absent tenderness *Routine Extremities Exam Extremities: Present pulses intact; Absent cyanosis or edema *Routine Skin Exam Skin: Present intact; Absent erythema or wounds *Routine Neurological Exam Neurological: Present alert and oriented X3 Routine Psychiatric Exam Psychiatric: Present cooperative Meds Home Medications and Allergies Home Medications ?Medication ?Instructions ?Recorded ?Confirmed ?Type atorvastatin 10 mg tablet 10 mg PO DAILY 12/03/17 01/11/25 History pantoprazole 40 mg tablet,delayed 40 mg PO BID 12/03/17 01/11/25 History release tramadol 50 mg tablet 50 mg PO Q6HP PRN Mild Pain (Scale 12/03/17 01/11/25 History Score 1-4) phenobarbital 32.4 mg tablet 97.2 mg PO HS 02/12/20 01/11/25 History digoxin 125 mcg (0.125 mg) tablet 125 mcg PO DAILY 03/27/20 01/11/25 History ropinirole 2 mg tablet 2 mg PO HS 03/28/20 01/11/25 History gabapentin 800 mg tablet 800 mg PO TID 02/26/21 01/11/25 History insulin human U-100 NPH-regulr 60 unit SQ HS 05/31/24 01/11/25 History 70-30 mix 100 unit/mL subcutaneous susp (Novolin 70/30 U-100 Insulin) insulin human U-100 NPH-regulr 100 unit SQ DAILY 05/31/24 01/11/25 History 70-30 mix 100 unit/mL subcutaneous susp (Novolin 70/30 U-100 Insulin) torsemide 20 mg tablet 20 mg PO BID 05/31/24 01/11/25 History spironolactone 25 mg tablet 25 mg PO BID 11/26/24 01/11/25 History dapagliflozin propanediol 10 mg 10 mg PO DAILY #30 tabs 12/14/24 01/11/25 Rx tablet (Farxiga) valsartan 40 mg tablet 40 mg PO BID #60 tabs 12/27/24 01/11/25 Rx semaglutide 0.25 mg or 0.5 mg (2 0.5 mg SQ WEEKLY 01/06/25 01/11/25 History mg/3 mL) subcutaneous pen injector (Ozempic) allopurinol 100 mg tablet 100 mg PO DAILY 01/11/25 01/11/25 History bisoprolol fumarate 5 mg tablet 5 mg PO DAILY 01/11/25 01/11/25 History isosorbide mononitrate 30 mg 30 mg PO DAILY 01/11/25 01/11/25 History tablet,extended release 24 hr loratadine 10 mg tablet 10 mg PO DAILY 01/11/25 01/11/25 History rivaroxaban 20 mg tablet (Xarelto) 20 mg PO QPMWITHMEAL 01/11/25 01/11/25 History New Prescriptions to Start Prescriptions: Allergies Allergy/AdvReac Type Severity Reaction Status Date / Time metoclopramide (From REGLAN) Allergy Mild SHAKES Verified 01/11/25 14:37 empagliflozin (From AdvReac Mild itching Verified 01/11/25 14:37 Jardiance) Assessment and Plan *Assessment and plan (1) Acute on chronic combined systolic and diastolic heart failure: Status: Acute Category: Medical Code(s): I50.43 - Acute on chronic combined systolic (congestive) and diastolic (congestive) heart failure (2) Acute on chronic renal failure: Status: Acute Qualifiers: Acute renal failure type: unspecified Chronic kidney disease stage: unspecified stage Qualified Code(s): N17.9 - Acute kidney failure, unspecified; N18.9 - Chronic kidney disease, unspecified Category: Medical Code(s): N17.9 - Acute kidney failure, unspecified; N18.9 - Chronic kidney disease, unspecified (3) Type 2 diabetes mellitus with peripheral neuropathy: Status: Acute Category: Medical Code(s): E11.42 - Type 2 diabetes mellitus with diabetic polyneuropathy (4) Atrial fibrillation, persistent: Status: Acute Category: Medical Code(s): I48.19 - Other persistent atrial fibrillation Plan Acute on Chronic HFrEF, likely hereditary CM, s/p Bi-V ICD and Impulse HF Device - direct admit from office yesterday with NYHA = 4 symptoms failing PO meds and slight decline in EF from 40 to 30 - ECHO 01/11: EF 30%, grade 3 diastolic dysfunction, moderate RV dilation and dysfunction, severe biatrial dilation - diuresed 2.2L overnight - continue GDMT (BB, entresto, MRNA, SGLT2i, diuretic, nitrate) - consider OP referral to for Cardiac MRI (our machine will not acomodate her ICD) and [facility] A-fib, Long Standing Persistant - 100% A-fib, severe biatrial dilation - not a candidate for ablation or antiarrhythmics - cont OAC, BB, Dig Nonobstructive CAD - per 2023 [facility] - CCS = 0 - Cont Xarelto, Statin, BB CKD-III - dose adjust meds - monitor labs daily DM-II - cont SGLT2 - glucose control per hospitalist CV summary 01/12: Pt improving but states she is not yet back to baseline and would like 1 more day inpatient which is reasonable. Anticipate DC tomorrow with addition of Metolazone.
[2025-01-12 11:32] LABS: POC Glucose,Bedside 158 (70-110)
[2025-01-12] MEDS: humaLOG 100 UNITS/ML 10ML VIAL (SSI) SUBCUT (11:36)
[2025-01-12 12:00] VITALS: BP 113/53; PULSE 70; RESP 16; TEMP 36.3; O2SAT 97
[2025-01-12] MEDS: MAGNESIUM SULFATE IN WATER 2 GM/50 ML PIGGYBACK IV (13:51)
--- NOTE | 2025-01-12 14:40 | P.DS_ITS ---
General Admission date:: 01/11/25 Discharge date: 01/12/25 HPI HPI HPI: Ms. Charlton is a 69-year-old female with combined heart failure. She presented to cardiology clinic today for routine follow-up. Complains of having worsening shortness of breath with exertion over the past several weeks along with unexplained weight gain. Has had adjustments to her diuretics as an outpatient with mixed benefit. On evaluation encourage clinic today, concern for volume overload and CHF exacerbation. Echo obtained with preliminary read showing EF less than 30%. Given concern for volume overload and acute exacerbation of CHF, cardiology requested admission for diuresis and further management. On evaluation after arriving to the floor, patient stable on room air but quite dyspneic with any exertion. Has edema in bilateral lower extremities. Denies any chest pain, nausea, vomiting, confusion, syncope. Afebrile. Hospital Course Hospital Course Hospital Course: 69-year-old female with combined heart failure. Presented to cardiology clinic for routine follow-up. Found to have worsening dyspnea with exertion and weight gain. Discussed case with cardiology, request admission for diuresis and treatment of volume overload. I agreed to admit for further management. Patient was admitted overnight. Diuresed aggressively. Had good response. Negative over 3 L from time of admission to discharge. Remained stable on room air throughout hospitalization. Stable discharge home with further management a s an outpatient. Problems addressed as follows: Acute on chronic combined heart failure Hyperlipidemia Hypertension -BNP 1500. White count normal at 6.8, hemoglobin 12.4. Remained stable during admission. No signs of bleeding. Kidney function at baseline. Initiated on Bumex drip. Had impressive response, -3 L during hospitalization. Remained stable on room air with sats greater 90%. Echo was obtained and found slight reduction in EF to 30%. Moderate to severe reduction in global LV function. Grade 3 diastolic dysfunction. Continue home Lipitor 10 mg daily, Continue home digoxin 125 mcg daily, bisoprolol 5 mg daily, isosorbide mononitrate 30 mg daily, Xarelto 20 mg nightly. Continue spironolactone 25 mg twice daily along with Bumex 1 mg twice daily to maintain fluid status. Follow-up closely with cardiology. Stable to discharge home. Diabetes Neuropathy - A1c well-controlled at 7. Continue home insulin regimen with combo 75/25. Decreased during admission, ended up holding it because her glucoses were low. 81 on morning labs. Recommend decreasing to 20 units twice daily at discharge. Needs close follow-up with PCP for further evaluation and management of diabetes. Continue Ozempic and dapagliflozin per home regimen. Continue gabapentin 800 mg 3 times a day daily; ropinirole 2 mg nightly CKD 3: BUN 47, creatinine 1.4. Appears to be about baseline. Stable on morning labs with BUN 43, creatinine 1.6. Within baseline range. Continue phenobarbital 97.2 mg nightly for seizure disorder Continue pantoprazole 40 mg twice daily for GERD Gout: Continue allopurinol 100 mg daily Morbid obesity: Complicates all aspects of her care Total time spent on discharge 34 minutes in counseling, documentation, chart review, and direct care with patient. Exam Data for Last 24 hours Vital signs and Labs for Last 24 Hours: Temp Pulse Resp BP Pulse Ox O2 Del Method 97.4 F L 70 16 113/53 L 97 Room Air 01/12/25 12:00 01/12/25 12:00 01/12/25 12:00 01/12/25 12:00 01/12/25 12:00 01/12/25 12:00 Laboratory Results - last 24 hr 01/11/25 16:02: WBC 6.8, RBC 3.63 L, Hgb 12.4, Hct 37.6, MCV 103.6 H, MCH 34.2 H , MCHC 33.0, RDW 15.6, Plt Count 183, MPV 9.9, Neut % (Auto) 70.8, Lymph % (Auto) 17.3, [place] % (Auto) 7.8, Eos % (Auto) 2.8, Baso % (Auto) 0.9, Neut # (Auto) 4.8, Lymph # (Auto) 1.2, [place] # (Auto) 0.5, Eos # (Auto) 0.2, Baso # (Auto) 0.1, Sodium 136, Potassium 4.3, Chloride 95 L, Carbon Dioxide 34 H, Anion Gap 11.3, BUN 47 H, Creatinine 1.40 H, Estimated Creat Clear 59, Estimated GFR 38 L, Est GFR ( Amer) 45 L, Glucose 66 L D, Hemoglobin A1c 7.0 H, Calcium 9.1, Magnesium 2.3, Total Bilirubin 0.7, AST 63 H, ALT 52, Alkaline Phosphatase 366 H, Total Protein 8.4 H, Albumin 4.5, Globulin 3.9 H, Albumin/Globulin Ratio 1.2 01/11/25 16:42: POC Glucose 60 L 01/11/25 20:29: POC Glucose 91 01/12/25 00:08: POC Glucose 108 01/12/25 06:16: WBC 7.1, RBC 3.39 L, Hgb 11.6 L, Hct 35.1 L, MCV 103.5 H, MCH 34.2 H, MCHC 33.0, RDW 15.7, Plt Count 178, MPV 10.2, Neut % (Auto) 70.7, Lymph % (Auto) 16.8, [place] % (Auto) 8.7, Eos % (Auto) 2.9, Baso % (Auto) 0.6, Neut # (Auto) 5.1, Lymph # (Auto) 1.2, [place] # (Auto) 0.6, Eos # (Auto) 0.2, Baso # (Auto) 0.0, Sodium 136, Potassium 4.1, Chloride 94 L, Carbon Dioxide 37 H, Anion Gap 9.1, BUN 43 H, Creatinine 1.60 H, Estimated Creat Clear 50, Estimated GFR 32 L, Est GFR ( Amer) 39 L, Glucose 81 D, Calcium 8.7, Magnesium 2.1, Total Bilirubin 0.7, AST 48 H, ALT 43, Alkaline Phosphatase 289 H, Total Protein 7.7, Albumin 4.0 D, Globulin 3.7 H, Albumin/Globulin Ratio 1.1, Triglycerides 92, Cholesterol 109 L, LDL Cholesterol Direct < 30.00 L, VLDL Cholesterol 18, HDL Cholesterol 46, Cholesterol/HDL Ratio 2.4 01/12/25 07:21: POC Glucose 90 01/12/25 11:25: POC Glucose 158 H I & O for Last 24 hours: Intake & Output 01/09/25 01/10/25 01/11/25 01/12/25 23:59 23:59 23:59 23:59 Intake Total 360 / 360 720 / 720 Output Total 1900 / 1900 1450 / 1450 Balance -1540 / -1540 -730 / -730 Weight 96.615 kg 92.986 kg Constitutional Constitutional: no acute distress, obese, chronically ill appearing and cooperative *Routine HEENT Exam Head: Present normocephalic Eye: Present EOMI and PERRL ENT: Present mucous membranes moist *Routine Neck Exam Neck: Present supple; Absent lymphadenopathy *Routine Respiratory Exam Respiratory: Present crackles (Bases, improved); Absent prolonged expiratory phase, rhonchi or wheezes *Routine Cardiovascular Exam Cardiovascular: Present RRR *Routine Abdominal Exam Abdominal: Present soft and normoactive bowel sounds; Absent tenderness *Routine Rectal Exam Patient deferred: visual exam *Routine Exam Patient deferred: external exam *Routine Extremities Exam Extremities: Present edema (Trace); Absent cyanosis or clubbing *Routine Skin Exam Skin: Present intact and warm; Absent rash *Routine Neurological Exam Neurological: Present alert, oriented X3 and moving all extremities; Absent altered mental status Results Data Completed and Pending Labs on day of discharge: Labs from last 24 hours 01/12/25 01/12/25 01/12/25 11:25 07:21 06:16 WBC 7.1 RBC 3.39 L Hgb 11.6 L Hct 35.1 L MCV 103.5 H MCH 34.2 H MCHC 33.0 RDW 15.7 Plt Count 178 MPV 10.2 Neut % (Auto) 70.7 Lymph % (Auto) 16.8 [place] % (Auto) 8.7 Eos % (Auto) 2.9 Baso % (Auto) 0.6 Neut # (Auto) 5.1 Lymph # (Auto) 1.2 [place] # (Auto) 0.6 Eos # (Auto) 0.2 Baso # (Auto) 0.0 Sodium 136 Potassium 4.1 Chloride 94 L Carbon Dioxide 37 H Anion Gap 9.1 BUN 43 H Creatinine 1.60 H Estimated Creat Clear 50 Estimated GFR 32 L Est GFR ( Amer) 39 L Glucose 81 D POC Glucose 158 H 90 Hemoglobin A1c Calcium 8.7 Magnesium 2.1 Total Bilirubin 0.7 AST 48 H ALT 43 Alkaline Phosphatase 289 H Total Protein 7.7 Albumin 4.0 D Globulin 3.7 H Albumin/Globulin Ratio 1.1 Triglycerides 92 Cholesterol 109 L LDL Cholesterol Direct < 30.00 L VLDL Cholesterol 18 HDL Cholesterol 46 Cholesterol/HDL Ratio 2.4 01/12/25 01/11/25 01/11/25 00:08 20:29 16:42 WBC RBC Hgb Hct MCV MCH MCHC RDW Plt Count MPV Neut % (Auto) Lymph % (Auto) [place] % (Auto) Eos % (Auto) Baso % (Auto) Neut # (Auto) Lymph # (Auto) [place] # (Auto) Eos # (Auto) Baso # (Auto) Sodium Potassium Chloride Carbon Dioxide Anion Gap BUN Creatinine Estimated Creat Clear Estimated GFR Est GFR ( Amer) Glucose POC Glucose 108 91 60 L Hemoglobin A1c Calcium Magnesium Total Bilirubin AST ALT Alkaline Phosphatase Total Protein Albumin Globulin Albumin/Globulin Ratio Triglycerides Cholesterol LDL Cholesterol Direct VLDL Cholesterol HDL Cholesterol Cholesterol/HDL Ratio 01/11/25 16:02 WBC 6.8 RBC 3.63 L Hgb 12.4 Hct 37.6 MCV 103.6 H MCH 34.2 H MCHC 33.0 RDW 15.6 Plt Count 183 MPV 9.9 Neut % (Auto) 70.8 Lymph % (Auto) 17.3 [place] % (Auto) 7.8 Eos % (Auto) 2.8 Baso % (Auto) 0.9 Neut # (Auto) 4.8 Lymph # (Auto) 1.2 [place] # (Auto) 0.5 Eos # (Auto) 0.2 Baso # (Auto) 0.1 Sodium 136 Potassium 4.3 Chloride 95 L Carbon Dioxide 34 H Anion Gap 11.3 BUN 47 H Creatinine 1.40 H Estimated Creat Clear 59 Estimated GFR 38 L Est GFR ( Amer) 45 L Glucose 66 L D POC Glucose Hemoglobin A1c 7.0 H Calcium 9.1 Magnesium 2.3 Total Bilirubin 0.7 AST 63 H ALT 52 Alkaline Phosphatase 366 H Total Protein 8.4 H Albumin 4.5 Globulin 3.9 H Albumin/Globulin Ratio 1.2 Triglycerides Cholesterol LDL Cholesterol Direct VLDL Cholesterol HDL Cholesterol Cholesterol/HDL Ratio DS: Diagnosis Discharge Diagnosis (1) Acute on chronic combined systolic and diastolic heart failure: Status: Acute Code(s): I50.43 - Acute on chronic combined systolic (congestive) and diastolic (congestive) heart failure (2) Acute on chronic renal failure: Status: Acute Code(s): N17.9 - Acute kidney failure, unspecified; N18.9 - Chronic kidney disease, unspecified Qualifiers: Acute renal failure type: unspecified Chronic kidney disease stage: unspecified stage Qualified Code(s): N17.9 - Acute kidney failure, unspecified; N18.9 - Chronic kidney disease, unspecified (3) Type 2 diabetes mellitus with peripheral neuropathy: Status: Acute Code(s): E11.42 - Type 2 diabetes mellitus with diabetic polyneuropathy (4) Atrial fibrillation, persistent: Status: Acute Code(s): I48.19 - Other persistent atrial fibrillation Meds Home Medications and Allergies Home Medications ?Medication ?Instructions ?Recorded ?Confirmed ?Type atorvastatin 10 mg tablet 10 mg PO DAILY 12/03/17 01/15/25 History pantoprazole 40 mg tablet,delayed 40 mg PO BID 12/03/17 01/15/25 History release tramadol 50 mg tablet 50 mg PO Q6HP PRN Mild Pain (Scale 12/03/17 01/15/25 History Score 1-4) phenobarbital 32.4 mg tablet 97.2 mg PO HS 02/12/20 01/15/25 History digoxin 125 mcg (0.125 mg) tablet 125 mcg PO DAILY 03/27/20 01/15/25 History ropinirole 2 mg tablet 2 mg PO HS 03/28/20 01/15/25 History gabapentin 800 mg tablet 800 mg PO TID 02/26/21 01/15/25 History dapagliflozin propanediol 10 mg 10 mg PO DAILY #30 tabs 12/14/24 01/15/25 Rx tablet (Farxiga) semaglutide 0.25 mg or 0.5 mg (2 0.5 mg SQ WEEKLY 01/06/25 01/15/25 History mg/3 mL) subcutaneous pen injector (Ozempic) allopurinol 100 mg tablet 100 mg PO DAILY 01/11/25 01/15/25 History bisoprolol fumarate 5 mg tablet 5 mg PO DAILY 01/11/25 01/15/25 History isosorbide mononitrate 30 mg 30 mg PO DAILY 01/11/25 01/15/25 History tablet,extended release 24 hr loratadine 10 mg tablet 10 mg PO DAILY 01/11/25 01/15/25 History rivaroxaban 20 mg tablet (Xarelto) 20 mg PO QPMWITHMEAL 01/11/25 01/15/25 Histo ry bumetanide 1 mg tablet 1 mg PO BIDL #60 tabs 01/12/25 01/15/25 Rx insulin human U-100 NPH-regulr 20 unit (0.2 mL) SQ BIDWMEAL 30 01/12/25 01/15/25 Rx 70-30 mix 100 unit/mL subcutaneous days #0 mL susp (Novolin 70/30 U-100 Insulin) metolazone 2.5 mg tablet 2.5 mg PO DAILY #30 tabs 01/12/25 01/15/25 Rx spironolactone 25 mg tablet 25 mg PO BIDL 30 days #0 tabs 01/12/25 01/15/25 Rx valsartan 40 mg tablet 40 mg PO DAILY #60 tabs 01/12/25 01/15/25 Rx New Prescriptions to Start Prescriptions: [email or web address] Brand metolazone Seth Liu Allergies Allergy/AdvReac Type Severity Reaction Status Date / Time metoclopramide (From REGLAN) Allergy Mild SHAKES Verified 01/11/25 14:37 empagliflozin (From AdvReac Mild itching Verified 01/11/25 14:37 Jardiance) Discharge Plan Disposition Patient Disposition: Home, Self-Care Condition: Fair Follow up Plan Follow up with: Uli Salcedo PA [Physician [employer]] - 01/26/25 1:15 pm Rad Galvan MD [Primary Care Provider] - 01/20/25 11:15 am Prescriptions/Medication Reconciliation: New bumetanide 1 mg tablet 1 mg PO BIDL Qty: 60 0RF metolazone 2.5 mg tablet 2.5 mg PO DAILY Qty: 30 0RF Continued gabapentin 800 mg tablet 800 mg PO TID Ozempic 0.25 mg or 0.5 mg (2 mg/3 mL) pen injector 0.5 mg SQ WEEKLY Patient Comments: INJECT 0.5 MG SUBCUTANEOUSLY ONCE a WEEK DIRECTED dapagliflozin propanediol [Farxiga] 10 mg tablet 10 mg PO DAILY Qty: 30 5RF atorvastatin 10 MG tablet 10 mg PO DAILY tramadol 50 MG tablet 50 mg PO Q6HP PRN (Reason: Mild Pain (Scale Score 1-4)) pantoprazole 40 MG tablet,delayed release (DR/EC) 40 mg PO BID phenobarbital 32.4 MG tablet 97.2 mg PO HS digoxin 125 MCG tablet 125 mcg PO DAILY ropinirole 2 MG tablet 2 mg PO HS allopurinol 100 mg tablet 100 mg PO DAILY loratadine 10 mg tablet 10 mg PO DAILY Patient Comments: TAKE ONE TABLET BY MOUTH EVERY DAY isosorbide mononitrate 30 mg tablet extended release 24 hr 30 mg PO DAILY bisoprolol fumarate 5 mg tablet 5 mg PO DAILY Xarelto 20 mg tablet 20 mg PO QPMWITHMEAL Changed Novolin 70/30 U-100 Insulin 100 unit/mL (70-30) suspension 20 unit SQ BIDWMEAL 30 Days Qty: 0 0RF spironolactone 25 mg tablet 25 mg PO BIDL 30 Days Qty: 0 0RF valsartan 40 mg tablet 40 mg PO DAILY Qty: 60 3RF Discontinued torsemide 20 mg tablet 20 mg PO BID Novolin 70/30 U-100 Insulin 100 unit/mL (70-30) suspension 60 unit SQ HS Problem Reconciliation Problems Reviewed?: Yes Patient Discharge Instructions ACTIVITY: Continue current activity DIET: continue same diet Patient Instructions: Heart-Healthy Diet, Carbohydrate-Counting Diet, DI for Heart Failure Exacerbations, Diabetes Diet Label Reading Tips Print Language: Latvian Providers Primary Care Provider: Rad Galvan Admit Provider: Seth Liu Attending Provider: Seth Liu
--- NOTE | 2025-01-13 10:11 | SW/DCPLANNER ---
Spoke with patient on the phone. Patient stated that she is feeling so much better. Patient stated that she is a little confused on her medicine and was able to help her get that straighten out. Patient stated that she is aware of her upcoming appointments. Patient stated that she was able to pick up man her medicine from clinic pharmacy. Patient stated that she has no other concerns or questions at this time. Bryan Aldrich
== END 2025-01-12 15:51 | disposition home or self-care (01) ==
PROVIDERS: Admitting Provider Internal Medicine Adolescent Medicine; PCP Family Medicine; Visit Provider Internal Medicine Adolescent Medicine
DX: I13.0 Hypertensive heart and chronic kidney disease with heart failure and stage 1 through stage 4 chronic kidney disease, or unspecified chronic kidney disease (principal); I50.43 Acute on chronic combined systolic (congestive) and diastolic (congestive) heart failure; N18.30 Chronic kidney disease, stage 3 unspecified; E11.22 Type 2 diabetes mellitus with diabetic chronic kidney disease; Z68.38 Body mass index [BMI] 38.0-38.9, adult; F41.9 Anxiety disorder, unspecified; E66.01 Morbid (severe) obesity due to excess calories; E78.2 Mixed hyperlipidemia; N17.9 Acute kidney failure, unspecified; E11.42 Type 2 diabetes mellitus with diabetic polyneuropathy; I48.19 Other persistent atrial fibrillation; Z79.4 Long term (current) use of insulin; Z79.85 Long-term (current) use of injectable non-insulin antidiabetic drugs; Z95.0 Presence of cardiac pacemaker
CPT/HCPCS: G0379; 36415; 80053; 80061; 82962; 83036; 83735; 85025; 96365; G0378; J1939; J2270; J2405; J3475

== ENCOUNTER 2025-01-15 01:48 | Emergency (ER) | payer MEDICARE, SELFPAY ==
[2025-01-15 02:03] VITALS: BP 118/74; PULSE 72; RESP 24; TEMP 36.9; O2SAT 98; BMI 38.7
[2025-01-15 02:06] VITALS: BP 96/50; PULSE 70; RESP 16; O2SAT 96
--- NOTE | 2025-01-15 02:08 | PC.NURSE ---
Pt awake alert and oriented Skin pink warm and dry Resp full and easy Speech clear and appropriate. Pt having chills and states she was having vomiting and diarrhea at home Accucheck 100 Report given to Sailaja GONZALES
[2025-01-15] MEDS: ONDANSETRON 4MG/2ML VIAL 4 MG IV (02:10)
[2025-01-15] MEDS: BELLADONNA ALKALOIDS 60 ML ML PO (02:11)
[2025-01-15 02:15] LABS: Coronavirus 19, PCR Not Detected (NotDetected); Influenza A, PCR Not Detected (NotDetected); Influenza B, PCR Not Detected (NotDetected)
[2025-01-15 02:16] LABS: Basophils # 0.1 K/mm3 (0-0.2); Basophils % 0.3 % (0.1-2.0); Eosinophils # 0.2 K/mm3 (0.0-0.4); Eosinophils % 0.8 % (0.1-12.0); Hematocrit 42.8 % (37.0-47.0); Hemoglobin 14.3 g/dL (12.2-16.2); Mean Corpuscular HGB Conc 33.4 g/dL (31.8-35.4); Mean Corpuscular Hemoglobin 34.2 pg (27.0-31.2); Mean Corpuscular Volume 102.4 fl (81-99); Mean Platelet Volume 9.8 fl (7.4-10.4); Monocytes # 1.6 K/mm3 (0.1-1.0); Monocytes % 7.9 % (1.7-9.3); Neutrophils # 17.5 K/mm3 (1.8-7.8); Neutrophils % 85.5 % (37.0-80.0); Platelet Count 241 K/mm3 (142-424); Red Blood Count 4.18 M/mm3 (4.20-5.40); White Blood Count 20.5 K/mm3 (4.8-10.8)
[2025-01-15 02:19] LABS: MANUAL DIFFERENTIAL MANUAL DIFFERENTIAL (MANUAL DIFF)
[2025-01-15 02:20] LABS: Albumin Level 5.1 g/dl (3.5-5.0); Chloride 90 mmol/L (98-107)
[2025-01-15 02:21] LABS: Sodium 136 mmol/L (136-145)
[2025-01-15 02:23] LABS: Alanine Aminotransferase 43 U/L (12-78); Alkaline Phosphatase 414 U/L (38-126); Aspartate Amino Transferase 45 U/L (14-36); Blood Urea Nitrogen 63 mg/dl (7-17); Carbon Dioxide 32 mmol/L (22.0-30.0); Creatinine Clearance Estimated 35 mL/min (50-200); Estimated Glomerular Filt Rate 21 ml/min (>60); GFR (African American) 26 ML/MIN (>60)
[2025-01-15 02:24] LABS: Albumin/Globulin Ratio 1.2 (1.1-1.8); Calcium 9.7 mg/dl (8.4-10.2); Globulin 4.4 g/dL (1.3-3.2); Glucose 107 mg/dl (74-100); Lipase 292 U/L (23-300); Total Protein,Serum 9.5 g/dl (6.3-8.2)
--- NOTE | 2025-01-15 02:46 | CT_ITS ---
PROCEDURE INFORMATION: Exam: CTA Abdomen and Pelvis With Contrast Exam date and time: 01/15/2025 3:08 AM Age: 69 years old Clinical indication: Abdominal pain; Generalized; Additional info: Abd pain, n/v/d TECHNIQUE: Imaging protocol: Computed tomographic angiography of the abdomen and pelvis with contrast. Exam focused on the arteries. 3D rendering (Not supervised by radiologist): MIP and/or 3D reconstructed images were created by the technologist. Radiation optimization: All CT scans at this facility use at least one of these dose optimization techniques: automated exposure control; mA and/or kV adjustment per patient size (includes targeted exams where dose is matched to clinical indication); or iterative reconstruction. Contrast material: ISOVUE; Contrast volume: 80 ml; Contrast route: INTRAVENOUS (IV); COMPARISON: CT ABDOMEN PELVIS W CON 09/11/2020 4:00 PM FINDINGS: Heart: Cardiomegaly with right atrial and right ventricular enlargement. There is reflux of contrast into the IVC consistent with elevated right heart pressure. Aorta: The abdominal aorta demonstrates diffuse atherosclerosis but no aneurysm dissection or other acute process is noted. Celiac trunk and mesenteric arteries: No occlusion or significant stenosis. Renal arteries: No occlusion or significant stenosis. Right iliac arteries: No occlusion or significant stenosis. Left iliac arteries: No occlusion or significant stenosis. Liver: No mass. Gallbladder and biliary ducts: Cholecystectomy. Pancreas: Unremarkable. No mass. No ductal dilation. Spleen: Unremarkable. No splenomegaly. Adrenal glands: Unremarkable. No mass. Kidneys and ureters: Unremarkable. No solid mass. No hydronephrosis. Stomach and bowel: Unremarkable. No obstruction. No mucosal thickening. Appendix: No evidence of appendicitis. Intraperitoneal space: Unremarkable. No free air. No significant fluid collection. Lymph nodes: Unremarkable. No enlarged lymph nodes. Urinary bladder: Unremarkable. No mass. Reproductive: Hysterectomy. Bones/joints: No acute fracture. Soft tissues: Unremarkable. IMPRESSION: 1. No acute process noted to explain the patient's symptoms. 2. Mild diffuse aortic atherosclerosis no evidence of dissection aneurysm or other acute arterial process. 3. Cardiomegaly with right atrial and right ventricular enlargement and elevated right heart pressure with reflux of contrast into the IVC.
--- NOTE | 2025-01-15 02:54 | ECG_ITS ---
APPROVED REPORT Exam: Resting ECG HR:73 bpm ECG Measurements Heart Rate 73 AXES QRSd 189 QRS 92 QT 340 T 90 QTc 366 Conclusion UNCERTAIN IRREGULAR RHYTHM ELECTRONIC VENTRICULAR PACEMAKER -- CONTOUR ANALYSIS BASED ON INTRINSIC RHYTHM BORDERLINE RIGHT AXIS DEVIATION [QRS AXIS > 90] INTRAVENTRICULAR CONDUCTION DELAY [130+ ms QRS DURATION] ABNORMAL ECG UNCONFIRMED REPORT Electronically signed by : ALISHA BERRIOS, 01/15/2025 06:25:46
--- NOTE | 2025-01-15 02:57 | ED_ITS ---
Discharge Plan Disposition Patient Disposition: Home, Self-Care Prescriptions Prescriptions: No Action gabapentin 800 mg tablet 800 mg PO TID Ozempic 0.25 mg or 0.5 mg (2 mg/3 mL) pen injector 0.5 mg SQ WEEKLY Patient Comments: INJECT 0.5 MG SUBCUTANEOUSLY ONCE a WEEK DIRECTED dapagliflozin propanediol [Farxiga] 10 mg tablet 10 mg PO DAILY Qty: 30 5RF atorvastatin 10 MG tablet 10 mg PO DAILY tramadol 50 MG tablet 50 mg PO Q6HP PRN (Reason: Mild Pain (Scale Score 1-4)) pantoprazole 40 MG tablet,delayed release (DR/EC) 40 mg PO BID phenobarbital 32.4 MG tablet 97.2 mg PO HS digoxin 125 MCG tablet 125 mcg PO DAILY ropinirole 2 MG tablet 2 mg PO HS allopurinol 100 mg tablet 100 mg PO DAILY loratadine 10 mg tablet 10 mg PO DAILY Patient Comments: TAKE ONE TABLET BY MOUTH EVERY DAY isosorbide mononitrate 30 mg tablet extended release 24 hr 30 mg PO DAILY bisoprolol fumarate 5 mg tablet 5 mg PO DAILY Xarelto 20 mg tablet 20 mg PO QPMWITHMEAL bumetanide 1 mg tablet 1 mg PO BIDL Qty: 60 0RF metolazone 2.5 mg tablet 2.5 mg PO DAILY Qty: 30 0RF Novolin 70/30 U-100 Insulin 100 unit/mL (70-30) suspension 20 unit SQ BIDWMEAL 30 Days Qty: 0 0RF spironolactone 25 mg tablet 25 mg PO BIDL 30 Days Qty: 0 0RF valsartan 40 mg tablet 40 mg PO DAILY Qty: 60 3RF Referrals Follow up/Referrals: Rad Galvan MD [Primary Care Provider] - See instructions Activity Restrictions/Add. Instructions Additional Instructions/Restrictions: Please follow-up with your primary care provider early next week for recheck of labs. If your symptoms worsen or do not improve, recommend returning to the emergency department for reassessment. Clinical Impressions Clinical Impression: Nausea vomiting and diarrhea Instructions Patient Instructions: DI for Diarrhea and Traveler's Diarrhea -- Adult, DI for Diarrhea and Traveler's Diarrhea -- Child, DI for Nausea -- Adult, DI for Nausea -- Child Print Language Print Language: [place] Discharge ED Provider: Christopher Santacruz General Adult HPI General Chief complaint: Nausea/Vomiting/Diarrhea Stated complaint: chills, abd pain, diahrrea, muscle spasms Time Seen by Provider: 01/15/25 01:55 Mode of Arrival: Ambulatory Source of Information: Patient Limitations: No Limitations Description of Symptoms (Recalled from ER Triage Doc. by RN): Pt states she took too much insulin now having body aches vomiting and diarrhea and chills. History of Present Illness HPI narrative: 69-year-old female presents with acute onset nausea vomiting and diarrhea. She was admitted for heart failure a few days ago and was discharged couple of days ago. Has been feeling well since discharge. She denies any fever chest pain or shortness of breath. She took her 70/30 insulin at night and shortly thereafter started having the nausea vomiting and diarrhea. Her blood sugar at home was in the 200s. She took what was previously her regular insulin dose, but while she was in the hospital they had decreased the dose. She reports some abdominal pain as well. Vomitus is nonbloody nonbilious. Denies any urinary symptoms. Reports she feels like her muscles are spasming. Related Data Home Medications ?Medication ?Instructions ?Recorded ?Confirmed atorvastatin 10 mg tablet 10 mg PO DAILY 12/03/17 01/15/25 pantoprazole 40 mg tablet,delayed 40 mg PO BID 12/03/17 01/15/25 release tramadol 50 mg tablet 50 mg PO Q6HP PRN Mild Pain (Scale 12/03/17 01/15/25 Score 1-4) phenobarbital 32.4 mg tablet 97.2 mg PO HS 02/12/20 01/15/25 digoxin 125 mcg (0.125 mg) tablet 125 mcg PO DAILY 03/27/20 01/15/25 ropinirole 2 mg tablet 2 mg PO HS 03/28/20 01/15/25 gabapentin 800 mg tablet 800 mg PO TID 02/26/21 01/15/25 semaglutide 0.25 mg or 0.5 mg (2 0.5 mg SQ WEEKLY 01/06/25 01/15/25 mg/3 mL) subcutaneous pen injector (Ozempic) allopurinol 100 mg tablet 100 mg PO DAILY 01/11/25 01/15/25 bisoprolol fumarate 5 mg tablet 5 mg PO DAILY 01/11/25 01/15/25 isosorbide mononitrate 30 mg 30 mg PO DAILY 01/11/25 01/15/25 tablet,extended release 24 hr loratadine 10 mg tablet 10 mg PO DAILY 01/11/25 01/15/25 rivaroxaban 20 mg tablet (Xarelto) 20 mg PO QPMWITHMEAL 01/11/25 01/15/25 Previous Rx's ?Medication ?Instructions ?Recorded dapagliflozin propanediol 10 mg 10 mg PO DAILY #30 tabs 12/14/24 tablet (Farxiga) bumetanide 1 mg tablet 1 mg PO BIDL #60 tabs 01/12/25 insulin human U-100 NPH-regulr 20 unit (0.2 mL) SQ BIDWMEAL 30 01/12/25 70-30 mix 100 unit/mL subcutaneous days #0 mL susp (Novolin 70/30 U-100 Insulin) metolazone 2.5 mg tablet 2.5 mg PO DAILY #30 tabs 01/12/25 spironolactone 25 mg tablet 25 mg PO BIDL 30 days #0 tabs 01/12/25 valsartan 40 mg tablet 40 mg PO DAILY #60 tabs 01/12/25 Allergies Allergy/AdvReac Type Severity Reaction Status Date / Time metoclopramide (From REGLAN) Allergy Mild SHAKES Verified 01/11/25 14:37 empagliflozin (From AdvReac Mild itching Verified 01/11/25 14:37 Jardiance) [facility] Disclaimer: The information contained in this section may have been updated after the patient was seen, as this information can be updated by other users. Medical History Elevated serum creatinine Dizziness Hypotension HFrEF (heart failure with reduced ejection fraction) Cardiac defibrillator in situ SOB (shortness of breath) on exertion HLD (hyperlipidemia) Anxiety Tachycardia Surgical History History of colonoscopy History of tonsillectomy History of cholecystectomy History of appendectomy History of automatic internal cardiac defibrillator (AICD) History of implanted electronic device Family History Other Family history of COPD (chronic obstructive pulmonary disease) Family history of cancer Family history of cardiac arrhythmia Family history of diabetes mellitus type II Family history of hypothyroidism Family history of myocardial infarction Social History Smoking Status: Never smoker alcohol intake: never counseling provided: none substance use type: denies use current occupational status: other Travel in the last 8 weeks: None household members: family housing: house lives independently: Yes marital status: single education level: high school current occupational exposures/hazards: No caffeine: No do you feel safe at home: Yes victim of physical abuse: No victim of emotional abuse: No victim of sexual abuse: No would you like helpful sources: No Have you lived/traveled outside [place] in past 30 days?: No Contact w/someone who lives/traveled outside [place] past 30 days?: No Exposure to someone with infectious disease in past 14 days?: No Do you have a fever (greater than 100.4 F or 38 C)?: No Have you tested positive for COVID-19: No Exposed to someone with COVID-19 in past 14 days?: No Do you have a sore throat?: No Do you have a cough?: No Do you have any weakness?: No Do you have any diarrhea?: Yes Are you experiencing any unusual bleeding?: No Do you have any muscle aches/pain?: Yes Do you have any abdominal pain?: Yes Are you experiencing loss of taste or smell?: No Other Medical History Have you received the Flu Vaccine for this season: No Have you received the Pneumonia Vaccine: No ROS Obtained: Yes All systems reviewed & no additional complaints except as documented Physical Exam General General appearance: alert and in no apparent distress Head Head exam: atraumatic and normocephalic Eye Eye exam: Present normal appearance, PERRL and EOMI ENT ENT exam: Present normal oropharynx and normal external ear exam Neck Neck exam: Present normal inspection and full ROM Chest Chest inspection: Present normal inspection and symmetric chest wall rise; Absent tenderness Respiratory Respiratory exam: Present normal lung sounds bilaterally; Absent respiratory distress Cardiovascular Cardiovascular exam: Present regular rate and normal rhythm Abdominal Exam Abdominal exam: Present soft and tenderness (Mild, epigastric/generalized); Absent distention or guarding Extremities Exam Extremities exam: Present normal inspection; Absent edema or joint swelling Back Exam Back exam: Present normal inspection; Absent tenderness Neurological Exam Neurological exam: Present alert and oriented X3; Absent motor sensory deficit Psychiatric Psychiatric exam: Present normal affect and normal mood Skin Skin exam: Present warm, dry and normal color Lymphatic Lymphatic Findings: no adenopathy Medical Decision Making Medical Records Medical records reviewed: Yes I reviewed the patient's medical records. Screening: Per USPSTF and CDC recommendations, given the prevalence of disease in our region, it is our hospital?s policy to screen for HIV and viral Hepatitis for all patients aged 18 and over and those with ongoing risk factors. Neil Inquiry Pt receiving controlled substance: No Neil was queried for this patient: No Vital Signs: 01/15/25 02:03 01/15/25 02:06 Temperature 98.4 F Temperature Source Oral Pulse Rate 70 Pulse Rate [Right Brachial] 72 Respiratory Rate 24 16 Blood Pressure 96/50 L Blood Pressure [Right Arm] 118/74 Blood Pressure Mean [Right Arm] 88 Blood Pressure Source [Right Arm] Automatic Cuff Blood Pressure Position Sitting Blood Pressure Position [Right Arm] Supine 02 Sat by Pulse Oximetry 98 96 Oxygen Delivery Method Room Air Room Air Lab Data Lab results reviewed: Yes I reviewed the patient's lab results. Lab Results 01/15/25 02:10: WBC 20.5 H* D, RBC 4.18 L, Hgb 14.3, Hct 42.8, MCV 102.4 H, MCH 34.2 H, MCHC 33.4, RDW 15.0, Plt Count 241 D, MPV 9.8, Neut % (Auto) 85.5 H, L ymph % (Auto) 5.0 L, [place] % (Auto) 7.9, Eos % (Auto) 0.8, Baso % (Auto) 0.3, N eut # (Auto) 17.5 H, Lymph # (Auto) 1.0, [place] # (Auto) 1.6 H, Eos # (Auto) 0.2, Baso # (Auto) 0.1, Total Counted 100, Neutrophils % (Manual) 84 H, Lymphocytes % (Manual) 7 L, Monocytes % (Manual) 9, Platelet Estimate Normal, Macrocytosis 1+, Sodium 136, Potassium 4.0, Chloride 90 L, Carbon Dioxide 32 H, Anion Gap 18.0 H, BUN 63 H D, Creatinine 2.30 H D, Estimated Creat Clear 35, Estimated GFR 21 L, E st GFR ( Amer) 26 L D, Glucose 107 H, Calcium 9.7, Total Bilirubin 1.0, A ST 45 H, ALT 43, Alkaline Phosphatase 414 H, Troponin I < 0.01, NT-Pro-B Natriuret Pep 1640 H, Total Protein 9.5 H, Albumin 5.1 H, Globulin 4.4 H, Albumin/Globulin Ratio 1.2, Lipase 292, SARS-CoV-2 (PCR) Not detected, HCV Ab AMPARO w/Rflx PCR Qn Negative, HIV Ag/Ab Combo Qual Negative, Influenza A Untype (PCR) Not detected, Influenza Type B (PCR) Not detected 01/15/25 03:25: Urine Color Yellow, Urine Appearance Slightly cloudy, Urine pH 6.0, Ur Specific [place] 1.010, Urine Protein Negative, Urine Glucose (UA) Trace, Urine Ketones Negative, Urine Blood Negative, Urine Nitrate Negative, Urine Bilirubin Negative, Urine Urobilinogen 0.2, Ur Leukocyte Esterase 1+ A, Urine RBC None, Urine WBC 3-5, Ur Squamous Epith Cells 3-5, Urine Bacteria Trace 01/15/25 02:10 01/15/25 02:10 Orders (Tests/Meds): ED MEDICATIONS Discontinued Medications Generic Name Dose Route Start Last Admin Trade Name Freq PRN Reason Stop Dose Admin Belladonna Alkaloids 60 ml 01/15/25 02:01 01/15/25 02:11 Belladonna Alkaloids 60 Ml Ml PO 01/15/25 02:02 60 ml ONCE ONE Administration Iopamidol 80 ml 01/15/25 03:18 01/15/25 03:20 Iopamidol-370 (76%);100ml Bottle IV 01/15/25 03:19 80 ml ONCE ONE Administration Ondansetron HCl 4 mg 01/15/25 02:01 01/15/25 02:10 Ondansetron 4mg/2ml Vial IV 01/15/25 02:02 4 mg ONCE ONE Administration Sodium Chloride 50 ml 01/15/25 03:18 01/15/25 03:19 0.9 % Sodium Chloride 50 Ml Vial IV 01/15/25 03:19 50 ml ONCE ONE Administration Sodium Chloride 10 ml 01/15/25 03:18 01/15/25 03:20 Sodium Chloride 0.9% 10ml Syr (Rad Only) IV 01/15/25 03:19 10 ml ONCE ONE Administration ORDERS Category Date Time Status CT angio abdomen pelvis Stat Cat Scan 01/15/25 02:46 Completed BNP [NT Pro Brain Natriuretic Pep.] Stat Lab 01/15/25 02:10 Completed CBC w/Auto Diff [Complete Blood Count Auto Diff] Stat Lab 01/15/25 02:10 Completed CMP [Comprehensive Metabolic Panel] Stat Lab 01/15/25 02:10 Completed HIV Combo Routine Lab 01/15/25 02:10 Completed Hepatitis C Ab Qual. W/ RFX Routine Lab 01/15/25 02:10 Completed Lipase Stat Lab 01/15/25 02:10 Completed Rapid PCR Covid and Flu A/B Stat Lab 01/15/25 02:10 Completed Trop I [Troponin I] Stat Lab 01/15/25 02:10 Completed Troponin I Q3H Lab 01/15/25 06:00 Ordered Troponin I Q3H Lab 01/15/25 09:00 Ordered UA [Urinalysis and Microscopic] Stat Lab 01/15/25 03:25 Completed Urine Culture Stat Micro 01/15/25 03:25 Received Medical Decision Narrative: 69-year-old female with history of A-fib, heart failure, obesity, diabetes, CKD presents for acute onset nausea vomiting diarrhea and abdominal pain, shortly before arrival.. History was obtained via interactive discussion with patient, family, chart review. On arrival, patient is [afebrile, hemodynamically stable, satting appropriately, alert, oriented x4, GCS 15], moving all extremities spontaneously. Full physical exam performed and significant for mild abdominal tenderness. Fingerstick normal. Differential includes but is not limited to hypoglycemia, flu, gastroenteritis, food poisoning, bowel ischemia, pancreatitis. Patient was given Zofran and GI cocktail for symptomatic management and correction of underlying abnormalities. Workup initiated including CBC CMP lipase BNP troponin UA COVID flu swab CTA of the abdomen and pelvis. On re-evaluation, patient reports some symptomatic improvement. Has not had any vomiting or diarrhea since being in the ER. Laboratory workup independently interpreted by me and significant for creatinine elevated to 2.3, baseline is unclear, most recent level was 1.6. Patient also has a leukocytosis with white count of 20. In the setting of acute vomiting, this may be reactive. Patient had no fever or other infectious symptoms. Urinalysis does not appear consistent with acute infection, especially without any urinary symptoms of note. Lipase is normal. LFTs unremarkable. Imaging independently interpreted by me and significant for CTA without evidence of ischemic bowel, bowel inflammation, pancreatitis, bleeding, etc. See radiology read for full review of final results. EKG independently interpreted by me and significant for paced rhythm, rate of 73, no ischemic changes. Admission was considered, but deemed unnecessary due to symptomatic improvement, no firm indication for admission. Patient does have a mild DEBORAH. No evidence of emergent pathology within the abdomen. The DEBORAH may be result of increasing diuretic use at home, though patient says she has not lost any additional weight since she returned home from the hospital. The patient's nausea vomiting and diarrhea began relatively acutely and may be secondary to food poisoning or gastroenteritis. This seems most likely to me. Interactive discussion was had with patient regarding her presentation and workup. Recommend she follow-up early next week for recheck of labs to reevaluate her kidney function and electrolytes. I also recommended she return to the ER if her symptoms worsen or do not improve. Procedures Risk/Benefits of Procedure(s) Were Explained: Yes Critical Care Critical Care Time Critical Care Time: No
--- NOTE | 2025-01-15 03:03 | PC.NURSE ---
Pt to Ct scan via stretcher
[2025-01-15 03:09] LABS: Lymphocytes % 7 % (10-50); Macrocytosis 1+; Monocytes % 9 % (2-9); Neutrophils % 84 % (42-76); Platelet Estimate Normal; Total Cells Counted 100
[2025-01-15 03:14] LABS: NT Pro Brain Natriuretic Pep. 1640 pg/mL (0-125)
--- NOTE | 2025-01-15 03:17 | PC.NURSE ---
Pt back from CT scan
[2025-01-15 03:19] LABS: Troponin I < 0.01 ng/ml (0.00-0.034)
[2025-01-15] MEDS: 0.9 % SODIUM CHLORIDE 50 ML VIAL IV (03:19)
[2025-01-15] MEDS: IOPAMIDOL-370 (76%);100ML BOTTLE 80 ML IV (03:20)
[2025-01-15] MEDS: SODIUM CHLORIDE 0.9% 10ML SYR (RAD ONLY) 10 ML IV (03:20)
[2025-01-15 03:22] LABS: HIV Combo NEGATIVE (Negative)
[2025-01-15 03:30] LABS: Hepatitis C Ab Qual. W/ RFX NEGATIVE (Negative)
[2025-01-15 03:32] LABS: Bilirubin,Urine Negative (Negative); Blood, Urine Negative (Negative); Color,Urine YELLOW (Yellow); Glucose,Urine (UA) TRACE (Negative); Ketones,Urine Negative (Negative); Leukocyte Esterase,Urine 1+ (Negative); Microscopic, Urine URINE MICROSCOPIC (MICROSCOPIC); Nitrate,Urine Negative (Negative); Protein,Urine Negative (Negative); Urobilinogen,Urine 0.2 EU/dl (0.2)
[2025-01-15 03:33] LABS: Appearance,Urine Slightly Cloudy (Clear)
[2025-01-15 03:45] LABS: Bacteria,Urine Trace /lpf
--- NOTE | 2025-01-15 03:57 | PC.NURSE ---
provider at bedside updating pt on POC
[2025-01-15 04:04] VITALS: BP 102/50; PULSE 64; RESP 16; TEMP 36.6; O2SAT 98
--- NOTE | 2025-01-16 10:26 | PC.NURSE ---
URINE CULTURE DISCUSSED WITH DR OTTO, PT DENIES URINARY SYMPTOMS. NO NEW ORDERS
== END 2025-01-15 04:08 | disposition home or self-care (01) ==
PROVIDERS: Emergency Provider Emergency Medicine; PCP Family Medicine
DX: M62.838 Other muscle spasm (principal); R11.2 Nausea with vomiting, unspecified; R19.7 Diarrhea, unspecified; R10.9 Unspecified abdominal pain
CPT/HCPCS: 74174; 80053; 81001; 83690; 83880; 84484; 85007; 85025; 85027; 86803; 87086; 87088; 87186; 87389; 87636; 93005; 96374; 99285; J2405; Q9967

== ENCOUNTER 2025-01-17 19:34 | Emergency (ER) | payer MEDICARE, SELFPAY ==
[2025-01-17 19:43] VITALS: BP 135/61; PULSE 66; RESP 18; TEMP 36.8; O2SAT 95; BMI 40.2
--- NOTE | 2025-01-17 19:53 | ED_ITS ---
<Statement entered by Aminata Lopez DO - 01/17/25 22:48> I was consulted by the FRANSISCO, and we discussed the complexity of the problems being addressed. I approved the treatment and management plan for this patient's care in the emergency department, thus performing a substantive portion of the medical decision making. Aminata Lopez DO Discharge Plan Disposition Patient Disposition: Home, Self-Care Condition: Good Prescriptions Prescriptions: New nitrofurantoin monohyd/m-cryst 100 mg capsule 100 mg PO BID 5 Days Qty: 10 0RF Rx Instructions: must administer with a meal/food No Action gabapentin 800 mg tablet 800 mg PO TID Ozempic 0.25 mg or 0.5 mg (2 mg/3 mL) pen injector 0.5 mg SQ WEEKLY Patient Comments: INJECT 0.5 MG SUBCUTANEOUSLY ONCE a WEEK DIRECTED dapagliflozin propanediol [Farxiga] 10 mg tablet 10 mg PO DAILY Qty: 30 5RF atorvastatin 10 MG tablet 10 mg PO DAILY tramadol 50 MG tablet 50 mg PO Q6HP PRN (Reason: Mild Pain (Scale Score 1-4)) pantoprazole 40 MG tablet,delayed release (DR/EC) 40 mg PO BID phenobarbital 32.4 MG tablet 97.2 mg PO HS digoxin 125 MCG tablet 125 mcg PO DAILY ropinirole 2 MG tablet 2 mg PO HS allopurinol 100 mg tablet 100 mg PO DAILY loratadine 10 mg tablet 10 mg PO DAILY Patient Comments: TAKE ONE TABLET BY MOUTH EVERY DAY isosorbide mononitrate 30 mg tablet extended release 24 hr 30 mg PO DAILY bisoprolol fumarate 5 mg tablet 5 mg PO DAILY Xarelto 20 mg tablet 20 mg PO QPMWITHMEAL bumetanide 1 mg tablet 1 mg PO BIDL Qty: 60 0RF metolazone 2.5 mg tablet 2.5 mg PO DAILY Qty: 30 0RF Novolin 70/30 U-100 Insulin 100 unit/mL (70-30) suspension 20 unit SQ BIDWMEAL 30 Days Qty: 0 0RF spironolactone 25 mg tablet 25 mg PO BIDL 30 Days Qty: 0 0RF valsartan 40 mg tablet 40 mg PO DAILY Qty: 60 3RF Referrals Follow up/Referrals: Rad Galvan MD [Primary Care Provider] - See instructions Activity Restrictions/Add. Instructions Additional Instructions/Restrictions: I sent a prescription into your pharmacy. Please take all your antibiotics until they are gone. You need to follow-up with your PCP within 48 hours for recheck of your labs. If you have continued new or worsening signs or symptoms return to the ER as needed. Clinical Impressions Clinical Impression: Hyperglycemia due to type 2 diabetes mellitus Qualifiers: Diabetes mellitus longterm insulin use: with longterm use Qualified Code(s): E11.65 - Type 2 diabetes mellitus with hyperglycemia Urinary tract infection Qualifiers: Urinary tract infection type: site unspecified Hematuria presence: with hematuria Qualified Code(s): N39.0 - Urinary tract infection, site not specified Instructions Patient Instructions: DI for Hyperglycemia -- Adult Print Language Print Language: Wallisian Discharge ED Provider: Aminata Lopez General Adult HPI General Chief complaint: Hyper/Hypoglycemia Stated complaint: High Blood Sugar 542 Time Seen by Provider: 01/17/25 19:53 Mode of Arrival: Ambulatory Source of Information: Patient Limitations: No Limitations Description of Symptoms (Recalled from ER Triage Doc. by RN): Pt presents with c/o high blood sugar. Per patient her provider has been making changes to her insulin, and the last couple of days her blood sugar has been running high than normal. FSBS in triage 426 History of Present Illness HPI narrative: Patient presents for evaluation of hyperglycemia. Patient noted this afternoon that her blood sugar was over 500 on her fingerstick. She does not have any specific complaints of polyuria polydipsia but reports that she does have burning with urination. She denies any fever chills chest pain shortness of breath hemoptysis hematochezia melena nausea vomit diarrhea. Patient has had multiple medication changes to her insulin regimen since she was admitted last week for a CHF exacerbation. Related Data Home Medications ?Medication ?Instructions ?Recorded ?Confirmed atorvastatin 10 mg tablet 10 mg PO DAILY 12/03/17 01/15/25 pantoprazole 40 mg tablet,delayed 40 mg PO BID 12/03/17 01/15/25 release tramadol 50 mg tablet 50 mg PO Q6HP PRN Mild Pain (Scale 12/03/17 01/15/25 Score 1-4) phenobarbital 32.4 mg tablet 97.2 mg PO HS 02/12/20 01/15/25 digoxin 125 mcg (0.125 mg) tablet 125 mcg PO DAILY 03/27/20 01/15/25 ropinirole 2 mg tablet 2 mg PO HS 03/28/20 01/15/25 gabapentin 800 mg tablet 800 mg PO TID 02/26/21 01/15/25 semaglutide 0.25 mg or 0.5 mg (2 0.5 mg SQ WEEKLY 01/06/25 01/15/25 mg/3 mL) subcutaneous pen injector (Ozempic) allopurinol 100 mg tablet 100 mg PO DAILY 01/11/25 01/15/25 bisoprolol fumarate 5 mg tablet 5 mg PO DAILY 01/11/25 01/15/25 isosorbide mononitrate 30 mg 30 mg PO DAILY 01/11/25 01/15/25 tablet,extended release 24 hr loratadine 10 mg tablet 10 mg PO DAILY 01/11/25 01/15/25 rivaroxaban 20 mg tablet (Xarelto) 20 mg PO QPMWITHMEAL 01/11/25 01/15/25 Previous Rx's ?Medication ?Instructions ?Recorded dapagliflozin propanediol 10 mg 10 mg PO DAILY #30 tabs 12/14/24 tablet (Farxiga) bumetanide 1 mg tablet 1 mg PO BIDL #60 tabs 01/12/25 insulin human U-100 NPH-regulr 20 unit (0.2 mL) SQ BIDWMEAL 30 01/12/25 70-30 mix 100 unit/mL subcutaneous days #0 mL susp (Novolin 70/30 U-100 Insulin) metolazone 2.5 mg tablet 2.5 mg PO DAILY #30 tabs 01/12/25 spironolactone 25 mg tablet 25 mg PO BIDL 30 days #0 tabs 01/12/25 valsartan 40 mg tablet 40 mg PO DAILY #60 tabs 01/12/25 nitrofurantoin 100 mg PO BID 5 days #10 caps 01/17/25 monohydrate/macrocrystals 100 mg capsule Allergies Allergy/AdvReac Type Severity Reaction Status Date / Time metoclopramide (From REGLAN) Allergy Mild SHAKES Verified 01/11/25 14:37 empagliflozin (From AdvReac Mild itching Verified 01/11/25 14:37 Jardiance) [facility] Disclaimer: The information contained in this section may have been updated after the patient was seen, as this information can be updated by other users. Medical History Elevated serum creatinine Dizziness Hypotension HFrEF (heart failure with reduced ejection fraction) Cardiac defibrillator in situ SOB (shortness of breath) on exertion HLD (hyperlipidemia) Anxiety Tachycardia Surgical History History of colonoscopy History of tonsillectomy History of cholecystectomy History of appendectomy History of automatic internal cardiac defibrillator (AICD) History of implanted electronic device Family History Other Family history of COPD (chronic obstructive pulmonary disease) Family history of cancer Family history of cardiac arrhythmia Family history of diabetes mellitus type II Family history of hypothyroidism Family history of myocardial infarction Social History Smoking Status: Never smoker alcohol intake: never counseling provided: none substance use type: denies use current occupational status: other Travel in the last 8 weeks: None household members: family housing: house lives independently: Yes marital status: single education level: high school current occupational exposures/hazards: No caffeine: No do you feel safe at home: Yes victim of physical abuse: No victim of emotional abuse: No victim of sexual abuse: No would you like helpful sources: No Have you lived/traveled outside [place] in past 30 days?: No Contact w/someone who lives/traveled outside [place] past 30 days?: No Exposure to someone with infectious disease in past 14 days?: No Do you have a fever (greater than 100.4 F or 38 C)?: No Have you tested positive for COVID-19: No Exposed to someone with COVID-19 in past 14 days?: No Do you have a sore throat?: No Do you have a cough?: No Do you have any weakness?: No Do you have any diarrhea?: No Are you experiencing any unusual bleeding?: No Do you have any muscle aches/pain?: No Do you have any abdominal pain?: No Are you experiencing loss of taste or smell?: No Other Medical History Have you received the Flu Vaccine for this season: No Have you received the Pneumonia Vaccine: No ROS Obtained: Yes Systems reviewed as appropriate & no additional complaints except as documented Physical Exam General General appearance: alert and in no apparent distress Respiratory Respiratory exam: Present normal lung sounds bilaterally Cardiovascular Cardiovascular exam: Present regular rate Neurological Exam Neurological exam: Present alert and oriented X3 Medical Decision Making Medical Records Medical records reviewed: Yes I reviewed the patient's medical records. Screening: Per USPSTF and CDC recommendations, given the prevalence of disease in our region, it is our hospital?s policy to screen for HIV and viral Hepatitis for all patients aged 18 and over and those with ongoing risk factors. Neil Inquiry Pt receiving controlled substance: No Vital Signs: 01/17/25 19:43 01/17/25 22:02 Temperature 98.3 F Temperature Source Oral Pulse Rate 70 Pulse Rate [Right] 66 Respiratory Rate 18 16 Blood Pressure [Right Arm] 135/61 Blood Pressure Mean [Right Arm] 85 Blood Pressure Position [Right Arm] Sitting 02 Sat by Pulse Oximetry 95 94 L Oxygen Delivery Method Room Air Room Air Lab Data Lab results reviewed: Yes I reviewed the patient's lab results. Lab Results 01/17/25 20:00: WBC 11.6 H D, RBC 3.56 L, Hgb 12.2, Hct 35.4 L, MCV 99.4 H, MCH 34.3 H, MCHC 34.5, RDW 14.5, Plt Count 182, MPV 10.2, Neut % (Auto) 91.0 H, L ymph % (Auto) 5.2 L, [place] % (Auto) 3.3, Eos % (Auto) 0.0 L, Baso % (Auto) 0.1, N eut # (Auto) 10.5 H, Lymph # (Auto) 0.6 L, [place] # (Auto) 0.4, Eos # (Auto) 0.0, Baso # (Auto) 0.0, Total Counted 100, Neutrophils % (Manual) 94 H, Lymphocytes % (Manual) 5 L, Monocytes % (Manual) 1 L, Platelet Estimate Normal, RBC Morphology Normal, Sodium 124 L, Potassium 3.8, Chloride 82 L, Carbon Dioxide 27, Anion Gap 18.8 H, BUN 73 H, Creatinine 2.30 H, Estimated Creat Clear 36, Estimated GFR 21 L, Est GFR ( Amer) 26 L, Glucose 390 H, Calcium 8.4, Total Bilirubin 0.8, AST 44 H, ALT 46, Alkaline Phosphatase 507 H, Total Protein 7.9, Albumin 4.5, G lobulin 3.4 H, Albumin/Globulin Ratio 1.3, Procalcitonin 0.241, Acetone Level None detected 01/17/25 20:28: Urine Color Yellow, Urine Appearance Clear, Urine pH 6.0, Ur Specific [place] 1.010, Urine Protein Negative, Urine Glucose (UA) 3+, Urine Ketones Negative, Urine Blood Trace-i, Urine Nitrate Negative, Urine Bilirubin Negative, Urine Urobilinogen 0.2, Ur Leukocyte Esterase 1+ A, Urine RBC 3-5, Urine WBC 20-50, Ur Squamous Epith Cells 3-5, Urine Bacteria 1+ 01/17/25 21:12: VBG pH 7.41, VBG pCO2 42.0, VBG pO2 50.3 H, VBG HCO3 25.7, VBG Total CO2 27.0, VBG O2 Saturation 85.1 H, VBG Base Excess 1.0, VBG Lactic Acid 2.9 H 01/17/25 20:00 01/17/25 20:00 Orders (Tests/Meds): ORDERS Category Date Time Status Acetone, Serum (Rapid) Stat Lab 01/17/25 20:00 Completed CBC w/Auto Diff [Complete Blood Count Auto Diff] Stat Lab 01/17/25 20:00 Completed CMP [Comprehensive Metabolic Panel] Stat Lab 01/17/25 20:00 Completed Procalcitonin Stat Lab 01/17/25 20:00 Completed UA [Urinalysis and Microscopic] Stat Lab 01/17/25 20:28 Completed Urine Culture Stat Micro 01/17/25 20:28 Received VBG [Venous Blood Gas] Stat RT 01/17/25 21:12 Completed Medical Decision Narrative: In summary patient is a 69-year-old female who presents to the emergency department for evaluation of hyperglycemia. Patient is hemodynamically stable with a blood pressure 135/61 pulse 66 normal sinus rhythm on bedside monitor breathing 18 times a minute satting 95% room air upon arrival, afebrile at 98.3. Physical exam is remarkable for no focal findings normal breath sounds normal heart sounds mentation is awake alert and oriented to person place circumstance, physical most score is 15, patient has no abdominal tenderness no rebound or guarding or rigidity breath sounds clear and equal bilaterally to the bases without active sounds.. Differential diagnosis includes hyperglycemia versus DKA versus occult infection. Initial workup will be conducted with hematologic labs urinalysis VBG. Initial interventions were considered however will be deferred until we have lab works as initial intervention with IV fluid may be detrimental given her heart failure history. Initial workup reviewed by me shows that her white count is 11.6 with a neutrophil count of 10.5 chemistry shows sodium 124 but a corrected sodium of 131 potassium 3.8 CO2 27 gap of 18.8 BUN of 73 creatinine 2.3 with GFR of 21 glucose of 390 alk phos of 407 AST of 44 bilirubin 0.8 ALT of 46. Urinalysis shows white cells and 1+ bacteria which could be consistent with a urinary tract infection given the amount of glucose in her urine. Given this I have referred the patient back to her PCP for recheck of her labs within 48 hours. Patient given a prescription for Macrobid with first dose given here. Critical Care Critical Care Time Critical Care Time: No
[2025-01-17 20:24] LABS: Basophils % 0.1 % (0.1-2.0); Hematocrit 35.4 % (37.0-47.0); Hemoglobin 12.2 g/dL (12.2-16.2); Lymphocytes # 0.6 K/mm3 (0.7-4.5); Lymphocytes % 5.2 % (10-50); Mean Corpuscular HGB Conc 34.5 g/dL (31.8-35.4); Mean Corpuscular Hemoglobin 34.3 pg (27.0-31.2); Mean Corpuscular Volume 99.4 fl (81-99); Mean Platelet Volume 10.2 fl (7.4-10.4); Monocytes # 0.4 K/mm3 (0.1-1.0); Monocytes % 3.3 % (1.7-9.3); Neutrophils # 10.5 K/mm3 (1.8-7.8); Platelet Count 182 K/mm3 (142-424); Red Blood Count 3.56 M/mm3 (4.20-5.40); Red Cell Distribution Width 14.5 % (11.5-17.5); White Blood Count 11.6 K/mm3 (4.8-10.8)
[2025-01-17 20:34] LABS: Albumin Level 4.5 g/dl (3.5-5.0); Chloride 82 mmol/L (98-107); Potassium 3.8 mmoL/L (3.5-5.1); Sodium 124 mmol/L (136-145)
[2025-01-17 20:37] LABS: Alanine Aminotransferase 46 U/L (12-78); Albumin/Globulin Ratio 1.3 (1.1-1.8); Alkaline Phosphatase 507 U/L (38-126); Anion Gap 18.8 mEq/L (5-15); Aspartate Amino Transferase 44 U/L (14-36); Bilirubin,Total 0.8 mg/dl (0.2-1.3); Blood Urea Nitrogen 73 mg/dl (7-17); Calcium 8.4 mg/dl (8.4-10.2); Carbon Dioxide 27 mmol/L (22.0-30.0); Creatinine Clearance Estimated 36 mL/min (50-200); Estimated Glomerular Filt Rate 21 ml/min (>60); GFR (African American) 26 ML/MIN (>60); Globulin 3.4 g/dL (1.3-3.2); Glucose 390 mg/dl (74-100); Total Protein,Serum 7.9 g/dl (6.3-8.2)
[2025-01-17 20:37] LABS: Microscopic, Urine URINE MICROSCOPIC (MICROSCOPIC)
[2025-01-17 20:39] LABS: MANUAL DIFFERENTIAL MANUAL DIFFERENTIAL (MANUAL DIFF)
[2025-01-17 21:18] LABS: VBG HCO3 25.7 mmol/L (23-30); VBG Oxygen Saturation 85.1 % (50-70); VBG PH 7.41 mmol/L (7.31-7.41); VBG PO2 50.3 mmol/L (28-40)
[2025-01-17 21:19] LABS: Lactate Venous 2.9 mmol/L (0.4-2.0)
[2025-01-17 21:20] LABS: Appearance,Urine CLEAR (Clear); Bilirubin,Urine Negative (Negative); Blood, Urine TRACE-I (Negative); Color,Urine YELLOW (Yellow); Glucose,Urine (UA) 3+ (Negative); Ketones,Urine Negative (Negative); Leukocyte Esterase,Urine 1+ (Negative); Nitrate,Urine Negative (Negative); Protein,Urine Negative (Negative); Urobilinogen,Urine 0.2 EU/dl (0.2)
[2025-01-17 21:45] LABS: Lymphocytes % 5 % (10-50); Monocytes % 1 % (2-9); Neutrophils % 94 % (42-76); Total Cells Counted 100
[2025-01-17 21:52] LABS: Bacteria,Urine 1+ /lpf; WBC,Urine 20-50 #/hpf (0-3)
[2025-01-17 21:59] LABS: Procalcitonin 0.241 ng/mL (0.0-2.0)
[2025-01-17 22:02] VITALS: PULSE 70; RESP 16; O2SAT 94
[2025-01-17 22:02] LABS: Platelet Estimate Normal; RBC Morphology Normal
[2025-01-17 22:14] LABS: Acetone, Serum (Rapid) None Detected (None Detect)
[2025-01-17 22:15] VITALS: PULSE 66; O2SAT 97
[2025-01-17] MEDS: NITROFURANTOIN 100MG CAPSULE 100 MG PO (22:33)
[2025-01-17 22:36] VITALS: BP 134/68; PULSE 78; RESP 14; TEMP 36.7; O2SAT 100
--- NOTE | 2025-01-20 12:24 | PC.NURSE ---
URINE CULTURE DISCUSSED WITH DR GUERRERO, NO NEW ORDERS
== END 2025-01-17 22:38 | disposition home or self-care (01) ==
PROVIDERS: Physician Assistant; Emergency Provider Emergency Medicine; PCP Family Medicine
DX: E11.65 Type 2 diabetes mellitus with hyperglycemia (principal); N39.0 Urinary tract infection, site not specified; R30.9 Painful micturition, unspecified
CPT/HCPCS: 80053; 81001; 82009; 82803; 84145; 85007; 85025; 85027; 87086; 87088; 87186; 99283

== ENCOUNTER 2025-01-21 14:36 | Observation (INO) | payer MEDICARE, SELFPAY ==
[2025-01-21] VITALS (12 sets, daily range): BP systolic 83–131; BP diastolic 48–75; PULSE 62–76; RESP 18; TEMP 36.6–36.9; O2SAT 92–100; BMI 37.8; BMI 38.8
--- NOTE | 2025-01-21 14:47 | ECG_ITS ---
APPROVED REPORT Exam: Resting ECG HR:74 bpm ECG Measurements Heart Rate 74 AXES QRSd 178 QRS 215 QT 510 T 61 QTc 538 Conclusion ELECTRONIC VENTRICULAR PACEMAKER ABNORMAL RHYTHM ECG Electronically signed by : FRIDA OTTO, 01/23/2025 08:24:01
--- NOTE | 2025-01-21 14:58 | PC.NURSE ---
PT brought back from triage to RM #11 pt states around 1100 she stood up from the toilet and had a syncopal episode. pt states she has been having a ROSAS and neck pain since. pt states her ROSAS is 5/10 and dull in nature. pt states her neck pain is squeezing and 7/10. pt states she take xarelto daily. pt reports when she came to her blood sugar was 57 according to her continuous monitoring device. pt drank two bottles of sweetened coffee. pts BSFS on arrival was 130. pt was recently admitted and d/c from here due to poorly controlled diabetes per the pt.
--- NOTE | 2025-01-21 15:29 | CT_ITS ---
FINAL REPORT TECHNIQUE: Thin section axial CT with sagittal reconstruction without contrast This study was performed with techniques to keep radiation doses as low as reasonably achievable, (ALARA). Individualized dose reduction techniques using automated exposure control or adjustment of mA and/or kV according to the patient''s size were employed. CLINICAL HISTORY: fall, head trauma on xarelto, head pain FINDINGS: No fracture is seen. Alignment is normal. No obvious bony spinal canal stenosis is present. Mild diffuse degenerative disc disease. IMPRESSION: No acute findings. Reviewed, Interpreted and Dictated by Julian Graves MD Transcribed by Claudia Hoang Authenticated and [facility]
--- NOTE | 2025-01-21 15:29 | CT_ITS ---
FINAL REPORT TECHNIQUE: Noncontrast exam This study was performed with techniques to keep radiation doses as low as reasonably achievable, (ALARA). Individualized dose reduction techniques using automated exposure control or adjustment of mA and/or kV according to the patient''s size were employed. CLINICAL HISTORY: fall, head trauma on xarelto, head and cspine pain COMPARISON: 06/13/2020 FINDINGS: No abnormal density is seen. Ventricles are normal. There is no hemorrhage. No mass effect is seen. Bone windows show no evidence of fracture. There is complete opacification of the left maxillary sinus with partial opacification of the left ethmoid air cells. Findings are compatible with sinusitis. IMPRESSION: No acute intracranial abnormality. Left maxillary and ethmoid sinusitis. Reviewed, Interpreted and Dictated by Julian Graves MD Transcribed by Claudia Hoang Authenticated and [facility]
--- NOTE | 2025-01-21 15:29 | XR_ITS ---
FINAL REPORT CLINICAL HISTORY: suncope, h/o CHF COMPARISON: 04/06/2024 FINDINGS: SINGLE VIEW CHEST The heart is normal in size. The mediastinum is unremarkable. Portions of the lung parenchyma are obscured by pacer generators. There is no pneumothorax. IMPRESSION: Bilateral subclavian pacers. Reviewed, Interpreted and Dictated by Julian Graves MD Transcribed by Claudia Hoang Authenticated and [facility]
--- NOTE | 2025-01-21 15:32 | PC.NURSE ---
respiratory aware of vbg
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
[2025-01-21 15:38] LABS: VBG HCO3 32.6 mmol/L (23-30); VBG Oxygen Saturation 68.5 % (50-70); VBG PH 7.41 mmol/L (7.31-7.41); VBG PO2 36.9 mmol/L (28-40); VBG Total CO2 34.2 mmol/L (23-27)
[2025-01-21 15:42] LABS: Basophils % 0.2 % (0.1-2.0); Eosinophils # 0.2 K/mm3 (0.0-0.4); Eosinophils % 1.3 % (0.1-12.0); Hematocrit 38.9 % (37.0-47.0); Hemoglobin 13.7 g/dL (12.2-16.2); Lymphocytes # 2.3 K/mm3 (0.7-4.5); Lymphocytes % 14.2 % (10-50); Mean Corpuscular HGB Conc 35.2 g/dL (31.8-35.4); Mean Corpuscular Hemoglobin 34.7 pg (27.0-31.2); Mean Corpuscular Volume 98.5 fl (81-99); Mean Platelet Volume 10.1 fl (7.4-10.4); Monocytes # 1.4 K/mm3 (0.1-1.0); Monocytes % 8.8 % (1.7-9.3); Neutrophils % 74.9 % (37.0-80.0); Platelet Count 242 K/mm3 (142-424); Red Blood Count 3.95 M/mm3 (4.20-5.40); Red Cell Distribution Width 13.9 % (11.5-17.5)
[2025-01-21 15:43] LABS: VBG PCO2 52.3 mmol/L (35-51)
[2025-01-21 15:46] LABS: MANUAL DIFFERENTIAL MANUAL DIFFERENTIAL (MANUAL DIFF)
[2025-01-21 15:49] LABS: Activated Partial Thrombo Time 31.8 seconds (22.8-30.6)
[2025-01-21 15:52] LABS: INR 1.09 (0.9-1.1); Prothrombin Time 12.1 seconds (10.1-12.5)
[2025-01-21 16:00] LABS: Alanine Aminotransferase 78 U/L (12-78); Albumin Level 4.3 g/dl (3.5-5.0); Albumin/Globulin Ratio 1.4 (1.1-1.8); Alkaline Phosphatase 294 U/L (38-126); Anion Gap 12.3 mEq/L (5-15); Aspartate Amino Transferase 58 U/L (14-36); Calcium 8.8 mg/dl (8.4-10.2); Carbon Dioxide 35 mmol/L (22.0-30.0); Chloride 83 mmol/L (98-107); Creatinine Clearance Estimated 33 mL/min (50-200); Estimated Glomerular Filt Rate 20 ml/min (>60); GFR (African American) 24 ML/MIN (>60); Globulin 3.1 g/dL (1.3-3.2); Glucose 150 mg/dl (74-100); Magnesium 2.8 mg/dl (1.6-2.3); Sodium 128 mmol/L (136-145); Total Protein,Serum 7.4 g/dl (6.3-8.2)
[2025-01-21 16:04] LABS: Eosinophils % 2 % (0-3); Lymphocytes % 18 % (10-50); Monocytes % 4 % (2-9); Neutrophils % 76 % (42-76); Platelet Estimate Normal; RBC Morphology Normal; Total Cells Counted 100
[2025-01-21 16:05] LABS: Potassium 2.3 mmoL/L (3.5-5.1)
[2025-01-21 16:06] LABS: Blood Urea Nitrogen 103 mg/dl (7-17)
--- NOTE | 2025-01-21 16:09 | PC.NURSE ---
Per Lab K= 2.3 BUN 103
[2025-01-21 16:13] LABS: NT Pro Brain Natriuretic Pep. 6930 pg/mL (0-125); Troponin I 0.02 ng/ml (0.00-0.034)
[2025-01-21] MEDS: 0.9 % SODIUM CHLORIDE 1000ML 1,430 ML 715 ML IV (16:20)
[2025-01-21] MEDS: PIPERACILLIN/TAZO 4.5 GM in 0.9 % SODIUM CHLORIDE 100 ML IV (16:20)
[2025-01-21] MEDS: KCl 20mEq/100ml 100 ML 50 MEQ IV ×2 (16:28→20:36)
--- NOTE | 2025-01-21 16:30 | PC.NURSE ---
Dr. Keenan states he does not want the sepsis bolus. Rather infused slowly with administration of IV potassium.
--- NOTE | 2025-01-21 16:35 | PC.NURSE ---
I rounded on the pt. no needs voiced. no new complaints. call leonard in reach.
[2025-01-21] MEDS: ONDANSETRON 4MG/2ML VIAL 4 MG IV (16:38)
[2025-01-21] MEDS: VANCOMYCIN CONSULT REQUEST 1 EACH NOTAPPLIC (16:46)
[2025-01-21] MEDS: MAGNESIUM SULFATE IN WATER 2 GM/50 ML PIGGYBACK IV (16:49)
--- NOTE | 2025-01-21 17:09 | PC.NURSE ---
HS aware of admission
[2025-01-21] MEDS: VANCOMYCIN/WATER FOR INJ (PEG) 1.5 GM/300 ML PIGGYBACK IV (17:20)
--- NOTE | 2025-01-21 17:42 | PC.NURSE ---
I called report to Mahamed GONZALES
--- NOTE | 2025-01-21 17:50 | PC.NURSE ---
I rounded on the pt and told her report has been called and she should be going upstairs anytime. no new complaints at this time. call leonard in reach.
--- NOTE | 2025-01-21 18:06 | PC.NURSE ---
I rounded on the pt. She is visiting with family. no new complaints at this time. no needs voiced. call leonard in reach.
--- NOTE | 2025-01-21 18:16 | PC.NURSE ---
arrived by stretcher from ED
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
--- NOTE | 2025-01-21 18:35 | PC.NURSE ---
Dr. Adame in patient's room.
[2025-01-21 19:42] LABS: Reflex Lactic Add Lactic Reflex
[2025-01-21 20:13] LABS: Lactic Acid Follow Up (RFLX 1) 1.7 mmol/L (0.7-2.1)
[2025-01-21 20:28] LABS: Troponin I 0.01 ng/ml (0.00-0.034)
[2025-01-21 20:34] LABS: Microscopic, Urine URINE MICROSCOPIC (MICROSCOPIC)
[2025-01-21 21:00] LABS: Appearance,Urine CLEAR (Clear); Bilirubin,Urine Negative (Negative); Blood, Urine Negative (Negative); Color,Urine YELLOW (Yellow); Glucose,Urine (UA) TRACE (Negative); Ketones,Urine Negative (Negative); Leukocyte Esterase,Urine Negative (Negative); Nitrate,Urine Negative (Negative); Protein,Urine Negative (Negative); Urobilinogen,Urine 0.2 EU/dl (0.2)
[2025-01-21 21:20] LABS: Bacteria,Urine Trace /lpf
[2025-01-21 22:08] LABS: POC Glucose,Bedside 135 (70-110)
[2025-01-21 22:20] LABS: Albumin Level 3.5 g/dl (3.5-5.0); Chloride 84 mmol/L (98-107)
[2025-01-21 22:21] LABS: Sodium 129 mmol/L (136-145)
[2025-01-21 22:23] LABS: Creatinine Clearance Estimated 33 mL/min (50-200); Estimated Glomerular Filt Rate 20 ml/min (>60); GFR (African American) 24 ML/MIN (>60); Troponin I < 0.01 ng/ml (0.00-0.034)
[2025-01-21 22:24] LABS: Alanine Aminotransferase 60 U/L (12-78); Albumin/Globulin Ratio 1.2 (1.1-1.8); Alkaline Phosphatase 277 U/L (38-126); Anion Gap 12.4 mEq/L (5-15); Aspartate Amino Transferase 46 U/L (14-36); Bilirubin,Total 0.7 mg/dl (0.2-1.3); Calcium 8.1 mg/dl (8.4-10.2); Carbon Dioxide 35 mmol/L (22.0-30.0); Globulin 2.9 g/dL (1.3-3.2); Glucose 148 mg/dl (74-100); Total Protein,Serum 6.4 g/dl (6.3-8.2)
[2025-01-21 22:27] LABS: Blood Urea Nitrogen 96 mg/dl (7-17); Potassium 2.4 mmoL/L (3.5-5.1)
--- NOTE | 2025-01-21 23:04 | EXP.EVENT.NO ---
Nursing informing that the patient was having trouble due to burning related to the potassium being given IV., The nurse has slowed it to a level that the patient is able to tolerate it.. Per policy nursing is not able to add potassium or lidocaine to a potassium bag. Have put in a communication order for pharmacy to see about putting 25 mg of lidocaine in each replacement bag of potassium, are to consider changing over to a p.o. form if adequate.
[2025-01-22] VITALS (7 sets, daily range): BP systolic 94–120; BP diastolic 52–63; PULSE 68–71; RESP 16–18; TEMP 36.6–37.4; O2SAT 93–100; BMI 40.4
[2025-01-22] MEDS: 0.9 % SODIUM CHLORIDE 1000ML 1,000 ML 75 ML IV (01:10)
[2025-01-22] MEDS: POTASSIUM CHLORIDE 20MEQ TAB 60 MEQ PO (02:03)
--- NOTE | 2025-01-22 04:29 | PC.NURSE ---
Pt is A/O X 4 and is able to ambulate to BR with standby assist. She is continent of b/b and is tolerating diet. FSBS 135 at 9pm. Urine spec sent for UA. Pt has not tolerated IV K+ or IVF. Building Wrecker has administered 1 bag of K+ this shift due to frequent reports of pain, wanting to stop meds for long periods of time. Pt also reporting IVF are causing pain, IV site without redness, edema or difficulty with infusion. Alternating between the 2 IV sites. Daughter at bedside through the night.
[2025-01-22 06:27] LABS: POC Glucose,Bedside 113 (70-110)
[2025-01-22] MEDS: CEFTRIAXONE 1 GM 1 GM in 0.9 % SODIUM CHLORIDE 50 ML IV (08:44)
[2025-01-22 09:20] LABS: Basophils % 0.2 % (0.1-2.0); Eosinophils # 0.3 K/mm3 (0.0-0.4); Eosinophils % 2.1 % (0.1-12.0); Hematocrit 36.8 % (37.0-47.0); Hemoglobin 12.7 g/dL (12.2-16.2); Lymphocytes # 2.1 K/mm3 (0.7-4.5); Lymphocytes % 16.6 % (10-50); Mean Corpuscular HGB Conc 34.5 g/dL (31.8-35.4); Mean Corpuscular Hemoglobin 34.2 pg (27.0-31.2); Mean Corpuscular Volume 99.2 fl (81-99); Mean Platelet Volume 10.2 fl (7.4-10.4); Monocytes % 7.6 % (1.7-9.3); Neutrophils # 9.2 K/mm3 (1.8-7.8); Neutrophils % 72.9 % (37.0-80.0); Platelet Count 183 K/mm3 (142-424); Red Blood Count 3.71 M/mm3 (4.20-5.40); Red Cell Distribution Width 13.9 % (11.5-17.5); White Blood Count 12.6 K/mm3 (4.8-10.8)
[2025-01-22 09:29] LABS: Alanine Aminotransferase 61 U/L (12-78); Albumin Level 3.7 g/dl (3.5-5.0); Albumin/Globulin Ratio 1.3 (1.1-1.8); Alkaline Phosphatase 229 U/L (38-126); Anion Gap 11.4 mEq/L (5-15); Aspartate Amino Transferase 41 U/L (14-36); Bilirubin,Total 0.8 mg/dl (0.2-1.3); Calcium 8.3 mg/dl (8.4-10.2); Carbon Dioxide 34 mmol/L (22.0-30.0); Chloride 89 mmol/L (98-107); Creatinine Clearance Estimated 40 mL/min (50-200); Estimated Glomerular Filt Rate 23 ml/min (>60); GFR (African American) 28 ML/MIN (>60); Globulin 2.9 g/dL (1.3-3.2); Glucose 164 mg/dl (74-100); Magnesium 3.5 mg/dl (1.6-2.3); Potassium 3.4 mmoL/L (3.5-5.1); Sodium 131 mmol/L (136-145); Total Protein,Serum 6.6 g/dl (6.3-8.2)
--- NOTE | 2025-01-22 09:33 | HMH.PHAINT1 ---
Pharmacy Intervention Comments: MEDICATION RECONCILIATION COMPLETED ON PATIENT USING EXTERNAL FILL HISTORY FROM PHARMACY AND DISCHARGE SUMMARY FROM PREVIOUS ADMISSION. -KENDRA ANAYA, NESTORD
[2025-01-22 09:34] LABS: Blood Urea Nitrogen 87 mg/dl (7-17)
[2025-01-22 11:10] LABS: POC Glucose,Bedside 225 (70-110)
[2025-01-22] MEDS: humaLOG 100 UNITS/ML 10ML VIAL (SSI) SUBCUT ×3 (11:22→21:18)
[2025-01-22] MEDS: GABAPENTIN 300MG CAPSULE 300 MG PO (13:27)
[2025-01-22] MEDS: POLYETHYLENE GLYCOL 3350 17 GM PACKET PO (13:27)
[2025-01-22 15:54] LABS: Chloride 89 mmol/L (98-107); Potassium 3.4 mmoL/L (3.5-5.1); Sodium 129 mmol/L (136-145)
[2025-01-22 15:57] LABS: Anion Gap 12.4 mEq/L (5-15); Carbon Dioxide 31 mmol/L (22.0-30.0); Creatinine Clearance Estimated 38 mL/min (50-200); Estimated Glomerular Filt Rate 22 ml/min (>60); GFR (African American) 27 ML/MIN (>60)
[2025-01-22 15:58] LABS: Calcium 7.8 mg/dl (8.4-10.2); Glucose 288 mg/dl (74-100)
[2025-01-22 16:03] LABS: Blood Urea Nitrogen 86 mg/dl (7-17)
[2025-01-22] MEDS: 0.9 % SODIUM CHLORIDE 1000ML 500 ML IV ×2 (17:04)
[2025-01-22 17:28] LABS: POC Glucose,Bedside 254 (70-110)
--- NOTE | 2025-01-22 17:28 | HMH.PTEV ---
Physical Therapy Evaluation Rehab PT IP Evaluation Start: 01/22/25 10:32 Freq: ONCE Status: Active Protocol: Document 01/22/25 17:07 PDESEROUX (Rec: 01/22/25 17:27 [email or web address] [id number]) Subjective/History History History Pt. is a 69 year old female who presents to 2nd floor [facility] w/ a PMH of HFrEF (heart failure with reduced ejection fraction), Hypotension, Hyperlipidemia, Dyspnea upon exertion, Acute Kidney Injury, and dizziness. Pt. reports she went to stand up from her commode at home when she got light headed and passed out. Pt. reports she came to and was laying on the floor. Pt. c /o head, shoulder, and tailbone P! secondary to the fall. Pt. reports her blood sugar levels were at 130 that morning after eating breakfast . Pt. recently vocalized her blood sugar was at 500 after a recent change in medication so she had decreased her oral intake over the last couple of days. Pt. reports she was recently admitted into the hospital two days prior for the same complaint. Pt. reports she lives alone in a 1 story home and a step to enter. Pt. reports she was IND . w/ ADLs prior to complaints of passing out. Pt. denies owning or having to use any medical equipment at home. Subjective Subjective Pt. was awake and long-sitting in hospital bed upon entering pt.'s room after being granted permission by pt. Pt. vocalizes increased fatigue at rest. Pt. c/o my legs are just weak w/ bedside to FWW transfer. Pt. also c/o tailbone P! secondary to the fall, at a 5/10 at rest. New diagnosis of cancer in past 12 No months? Rehab PT IP Eval Objective Appearance Patient Behavior Appropriate,Anxious,Crying, Fatigued,Guarded Patient Orientation Person,Place,Birthday Difficulty following instructions mild Speech Pattern Appropriate,Delayed,Soft- Spoken Ambulation Patient Able to Ambulate Yes Ambulation Observation IP General Gait Pattern Observation Wide Based Gait,Shuffling Step Ambulation Distance (feet) 10 Ambulation Assistive Device Rolling Walker Ambulation Ability Minimal x 1 (25% assist) Balance Ability to Arise Able, uses arms to help Sitting Balance Steady, safe Standing Balance Steady, wide stance Dynamic Sitting Balance Ability Good Dynamic Standing Balance Ability Good Transfers Bed Transfer Ability Minimal x 1 (25% assist) Chair Transfer Ability Minimal x 1 (25% assist) Sit to Stand Bed Transfer Ability Minimal x 1 (25% assist) Sit to Stand Chair Transfer Ability Minimal x 1 (25% assist) Pain Medial Buttock Pain Intensity 5 ROM RLE PT ROM Status WFL LLE PT ROM Status WFL MMT RLE PT MMT ABN Abnormal MMT Grade 4-/5 grossly LLE PT MMT ABN Abnormal MMT Grade 4-/5 grossly Rehab PT IP prob,goals,plan Problems Date of Evaluation: 01/22/25 PT IP Problems Transfers,Gait,Balance,Self care,Safety Rehab Potential Rehab Potential Good Equipment Needs Assistive Devices Rolling / Wheeled Walker Plan PT Intervention Plan Transfers,Gait,Balance,Self care,Safety,Therapeutic Exercise PT Plan Frequency BID Duration LOS Discharge Goals Bed Transfer Ability Contact Guard/Hand Hold Sit to Stand Chair Transfer Ability Contact Guard/Hand Hold Ambulation Assistive Device Rolling Walker Ambulation Distance (feet) 20 Discharge Plan PT Discharge Plan Pt. will benefit from skilled PT while at [facility] and continue to receive benefit from short term-rehab s/p discharge from [facility] once deemed medically stable by MD. Without skilled PT, pt. is at an increased risk for falls, wounds, fractures, and further functional decline. Eval Complexity Eval Charge Codes 93643 - Low Complexity PHYSICIAN CERTIFICATION: I certify the specified therapy services for Sara Edwards are required, authorized, and reviewed every 30 days.
[2025-01-22] MEDS: RIVAROXABAN 15MG TABLET 15 MG PO (17:54)
--- NOTE | 2025-01-22 17:58 | P.PN_ITS ---
Subjective *Date: 01/25/25 *Time: 16:15 Interval history: Patient feels slightly better today, continues to be quite weak. Working with physical therapy. Will continue fluid rehydration and reevaluate tomorrow. Exam Data for Last 24 hours Vital signs and Labs for Last 24 Hours: Temp Pulse Resp BP Pulse Ox O2 Del Method 98.0 F 70 18 110/63 96 Room Air 01/22/25 12:00 01/22/25 16:00 01/22/25 12:00 01/22/25 12:00 01/22/25 12:00 01/22/25 17:00 Laboratory Results - last 24 hr 01/21/25 19:55: Lactate 1.7, Troponin I 0.01 01/21/25 20:30: Urine Color Yellow, Urine Appearance Clear, Urine pH 6.0, Ur Specific [place] 1.010, Urine Protein Negative, Urine Glucose (UA) Trace, Urine Ketones Negative, Urine Blood Negative, Urine Nitrate Negative, Urine Bilirubin Negative, Urine Urobilinogen 0.2, Ur Leukocyte Esterase Negative, Urine RBC None, Urine WBC 5-10, Ur Squamous Epith Cells 10-20, Urine Bacteria Trace 01/21/25 21:45: Sodium 129 L, Potassium 2.4 L*, Chloride 84 L, Carbon Dioxide 35 H, Anion Gap 12.4, BUN 96 H, Creatinine 2.40 H, Estimated Creat Clear 33, Estimated GFR 20 L, Est GFR ( Amer) 24 L, Glucose 148 H, Calcium 8.1 L, Total Bilirubin 0.7, AST 46 H, ALT 60, Alkaline Phosphatase 277 H, Troponin I < 0.01, Total Protein 6.4, Albumin 3.5 D, Globulin 2.9, Albumin/Globulin Ratio 1.2 01/21/25 21:52: POC Glucose 135 H 01/22/25 06:12: POC Glucose 113 H 01/22/25 08:12: WBC 12.6 H, RBC 3.71 L, Hgb 12.7, Hct 36.8 L, MCV 99.2 H, MCH 34.2 H, MCHC 34.5, RDW 13.9, Plt Count 183, MPV 10.2, Neut % (Auto) 72.9, Lymph % (Auto) 16.6, [place] % (Auto) 7.6, Eos % (Auto) 2.1, Baso % (Auto) 0.2, Neut # (Auto) 9.2 H, Lymph # (Auto) 2.1, [place] # (Auto) 1.0, Eos # (Auto) 0.3, Baso # (Auto) 0.0, Sodium 131 L, Potassium 3.4 L D, Chloride 89 L, Carbon Dioxide 34 H, Anion Gap 11.4, BUN 87 H, Creatinine 2.10 H, Estimated Creat Clear 40, Estimated GFR 23 L, Est GFR ( Amer) 28 L, Glucose 164 H, Calcium 8.3 L, Magnesium 3.5 H D, Total Bilirubin 0.8, AST 41 H, ALT 61, Alkaline Phosphatase 229 H, Total Protein 6.6, Albumin 3.7, Globulin 2.9, Albumin/Globulin Ratio 1.3 01/22/25 10:58: POC Glucose 225 H 01/22/25 14:45: Sodium 129 L, Potassium 3.4 L, Chloride 89 L, Carbon Dioxide 31 H, Anion Gap 12.4, BUN 86 H, Creatinine 2.20 H, Estimated Creat Clear 38, Estimated GFR 22 L, Est GFR ( Amer) 27 L, Glucose 288 H D, Calcium 7.8 L 01/22/25 16:31: POC Glucose 254 H I & O for Last 24 hours: Intake & Output 01/19/25 01/20/25 01/21/25 01/22/25 23:59 23:59 23:59 23:59 Intake Total 2554 / 2554 Output Total 450 / 450 0 / 0 Balance -450 / 50 2554 / 2554 Weight 93.242 kg 96.978 kg Microbiology Reports for the Last 24 Hours: Microbiology 01/21/25 15:35 Blood Blood Culture - Preliminary NO GROWTH AFTER 24 HOURS 01/21/25 15:35 Blood Blood Culture - Preliminary NO GROWTH AFTER 24 HOURS Constitutional Constitutional: no acute distress *Routine HEENT Exam Head: Present normocephalic Eye: Present EOMI and PERRL ENT: Present mucous membranes moist *Routine Neck Exam Neck: Present supple; Absent lymphadenopathy *Routine Respiratory Exam Respiratory: Present CTA bilaterally *Routine Cardiovascular Exam Cardiovascular: Present RRR *Routine Abdominal Exam Abdominal: Present soft and normoactive bowel sounds; Absent tenderness *Routine Extremities Exam Extremities: Absent cyanosis, clubbing or edema *Routine Skin Exam Skin: Present warm; Absent rash *Routine Neurological Exam Neurological: Present alert and oriented X3 Assessment and Plan *Assessment and plan (1) DEBORAH (acute kidney injury): Status: Acute Category: Medical Code(s): N17.9 - Acute kidney failure, unspecified (2) Acute hypokalemia: Status: Acute Category: Medical Code(s): E87.6 - Hypokalemia Plan Sara Edwards is a 69-year-old female with a medical history significant for HFrEF who presents after passing out at home. She was discharged about a week ago for HFrEF exacerbation, diuresed adequately. However, patient was diagnosed with UTI during which her blood sugars were apparently in the 500s. Patient subsequ ently reduced her food intake substantially, including fluids. This morning, patient was getting up from the toilet when she became dizzy and passed out. She states she then checked her blood sugars which were in the 50s prompting her to come to the ED. Creatinine 2.4 (baseline 1.6, BUN 105, potassium 2.4, blood sugar 135. Case discussed with ED provider and decision was made to admit patient for syncope, DEBORAH, hypokalemia, dehydration, hypoglycemia. #Syncope #DEBORAH #Hypokalemia #Hypoglycemia #Dehydration ? Patient recently had a blood sugar of 500 at home, and has since dramatically decreased her oral intake over the past few days. On day of admission she was standing up from a toilet when she became lightheaded and passed out. She states she later checked her blood sugar which was in the 50s. ? Initial creatinine 2.4 (baseline 1.6), BUN 105, potassium 2.4. Blood sugar 135. ? Presentation most consistent with hypovolemia/dehydration from decreased oral intake over the past few days. ? Creatinine improved to 2.0 with IV and oral fluid resuscitation. Potassium improved to 3.2. ? Patient continues to feel quite weak, physical therapy recommending skilled rehab. Will continue inpatient treatment and reevaluate tomorrow. ? Continue with IV NS at 75 mL/h. ? Orthostatic vitals are improving, low normal. ? Hold home diuretics, blood pressure medications at this time. BP soft at this time. #HFrEF #Hypertension ? Hold home diuretics, BP meds due to DEBORAH, soft pressures #Type 2 diabetes ? Blood sugar stable here. No hypoglycemia. ? LDSSI, ACHS glucose checks. #Seizure disorder ? Hold home phenobarbital due to weakness. #GERD ? Continue home PPI. Full code DVT prophylaxis: Lovenox 30 mg
[2025-01-22 20:12] LABS: Chloride 91 mmol/L (98-107); Potassium 3.2 mmoL/L (3.5-5.1); Sodium 130 mmol/L (136-145)
[2025-01-22 20:15] LABS: Anion Gap 8.2 mEq/L (5-15); Calcium 8.1 mg/dl (8.4-10.2); Carbon Dioxide 34 mmol/L (22.0-30.0); Creatinine Clearance Estimated 42 mL/min (50-200); Estimated Glomerular Filt Rate 25 ml/min (>60); GFR (African American) 30 ML/MIN (>60); Glucose 244 mg/dl (74-100)
[2025-01-22 20:18] LABS: Blood Urea Nitrogen 83 mg/dl (7-17)
[2025-01-22 20:36] LABS: POC Glucose,Bedside 274 (70-110)
--- NOTE | 2025-01-22 21:03 | PC.NURSE ---
Late Entry (for 20:17): Lab called at this time to inform me about a critical BUN value of 83 for the patient. Génesis RHODES was paged at 20:18 to inform him about the critical lab value.
--- NOTE | 2025-01-22 21:08 | PC.NURSE ---
Addendum entered by Vicky Robertson RN 01/22/25 21:21: Patient remains very drowsy at this time. I attempted to give the patient her ropinirole pills, but the patient shook her head and verbally refused. She went back to resting with eyes closed after the refusal. Original Note: Patient is appearing very drowsy and is tending to fall asleep very quickly after any type of arousal. She has gabapentin due at 21:00 per JAN; her last dose was given at 13:27 today. When asked upon assessment, the patient denied any leg pain or tingling + discomfort at the time. Génesis RHODES was paged to inform him about the occurrence and to inquire about holding gabapentin administration due to patient's current fatigued state. He stated that it will be ok to hold it at this time.
--- NOTE | 2025-01-22 21:17 | P.PN_ITS ---
Subjective *Date: 01/22/25 *Time: 21:17 Exam Data for Last 24 hours Vital signs and Labs for Last 24 Hours: Temp Pulse Resp BP Pulse Ox O2 Del Method 99.4 F 70 18 120/57 L 93 L Room Air 01/22/25 20:00 01/22/25 20:00 01/22/25 20:00 01/22/25 20:00 01/22/25 20:00 01/22/25 20:00 Laboratory Results - last 24 hr 01/21/25 20:30: Urine RBC None, Urine WBC 5-10, Ur Squamous Epith Cells 10-20, Urine Bacteria Trace 01/21/25 21:45: Sodium 129 L, Potassium 2.4 L*, Chloride 84 L, Carbon Dioxide 35 H, Anion Gap 12.4, BUN 96 H, Creatinine 2.40 H, Estimated Creat Clear 33, Estimated GFR 20 L, Est GFR ( Amer) 24 L, Glucose 148 H, Calcium 8.1 L, Total Bilirubin 0.7, AST 46 H, ALT 60, Alkaline Phosphatase 277 H, Troponin I < 0.01, Total Protein 6.4, Albumin 3.5 D, Globulin 2.9, Albumin/Globulin Ratio 1.2 01/21/25 21:52: POC Glucose 135 H 01/22/25 06:12: POC Glucose 113 H 01/22/25 08:12: WBC 12.6 H, RBC 3.71 L, Hgb 12.7, Hct 36.8 L, MCV 99.2 H, MCH 34.2 H, MCHC 34.5, RDW 13.9, Plt Count 183, MPV 10.2, Neut % (Auto) 72.9, Lymph % (Auto) 16.6, [place] % (Auto) 7.6, Eos % (Auto) 2.1, Baso % (Auto) 0.2, Neut # (Auto) 9.2 H, Lymph # (Auto) 2.1, [place] # (Auto) 1.0, Eos # (Auto) 0.3, Baso # ( Auto) 0.0, Sodium 131 L, Potassium 3.4 L D, Chloride 89 L, Carbon Dioxide 34 H, Anion Gap 11.4, BUN 87 H, Creatinine 2.10 H, Estimated Creat Clear 40, Estimated GFR 23 L, Est GFR ( Amer) 28 L, Glucose 164 H, Calcium 8.3 L, Magnesium 3.5 H D, Total Bilirubin 0.8, AST 41 H, ALT 61, Alkaline Phosphatase 229 H, Total Protein 6.6, Albumin 3.7, Globulin 2.9, Albumin/Globulin Ratio 1.3 01/22/25 10:58: POC Glucose 225 H 01/22/25 14:45: Sodium 129 L, Potassium 3.4 L, Chloride 89 L, Carbon Dioxide 31 H, Anion Gap 12.4, BUN 86 H, Creatinine 2.20 H, Estimated Creat Clear 38, Estimated GFR 22 L, Est GFR ( Amer) 27 L, Glucose 288 H D, Calcium 7.8 L 01/22/25 16:31: POC Glucose 254 H 01/22/25 19:55: Sodium 130 L, Potassium 3.2 L, Chloride 91 L, Carbon Dioxide 34 H, Anion Gap 8.2, BUN 83 H, Creatinine 2.00 H, Estimated Creat Clear 42, Estimated GFR 25 L, Est GFR ( Amer) 30 L, Glucose 244 H, Calcium 8.1 L 01/22/25 20:20: POC Glucose 274 H I & O for Last 24 hours: Intake & Output 01/19/25 01/20/25 01/21/25 01/22/25 23:59 23:59 23:59 23:59 Intake Total 3274 / 3274 Output Total 450 / 450 0 / 0 Balance -450 / 50 3274 / 3274 Weight 93.242 kg 96.978 kg Microbiology Reports for the Last 24 Hours: Microbiology 01/21/25 15:35 Blood Blood Culture - Preliminary NO GROWTH AFTER 24 HOURS 01/21/25 15:35 Blood Blood Culture - Preliminary NO GROWTH AFTER 24 HOURS Assessment and Plan *Assessment and plan Plan Sara Charlton is a 69-year-old female with a medical history significant for HFrEF who presents after passing out at home. #Syncope #Hypoglycemia #Dehydration #Hypokalemia #DEBORAH ? Patient recently had a blood sugar of 500 at home, and has since dramatically decreased her oral intake over the past few days. ? Prior to admission she was standing up from a toilet when she became lightheaded and passed out. She states she later checked her blood sugar which was in the 50s. Likely also vasovagal induced. ? Initial creatinine 2.4 (baseline 1.6), BUN 105, potassium 2.4. Blood sugar 135. ? Presentation most consistent with hypovolemia/dehydration from decreased oral intake over the past few days. ? Creatinine improved to 2.0 with IV and oral fluid resuscitation. Potassium improved to 3.2. ? Continue IV and oral repletion of potassium. ? Continue with IV NS at 75 mL/h. ? Follow-up orthostatic vitals. ? Hold home diuretics, blood pressure medications at this time. BP soft at this time.
[2025-01-23] VITALS (7 sets, daily range): BP systolic 107–114; BP diastolic 55–63; PULSE 70; RESP 16–18; TEMP 36.6–37.1; O2SAT 96–99; BMI 40.3
--- NOTE | 2025-01-23 04:00 | PC.NURSE ---
The patient was observed to be quite drowsy and shown difficulty staying awake, particularly during the first half of this shift. Gabapentin and ropinirole were not able to be given (see prior note chain). Patient has not had any complaints of neuropathy symptoms/nerve pain. ACHS glucose checks performed, insulin coverage given accordingly. Patient did wake up on her own around midnight with slight disorientation, requesting assistance to the bathroom and asking where she was. After voiding, the patient was given a full bath. After receiving her bath, the patient appeared to become alert and oriented x4 and conversational. She complained of tailbone pain of which she was repositioned in bed by staff and pillows were placed underneath her hips; the patient was able to rest solidly after repositioning. She ambulates with standby assistance + a walker. Weakness in her legs was noticed. Auscultation of her lungs, heart, and bowels were within normal findings. Mild swelling was noticed in her bilateral lower extremities. Soft blood pressures noted this shift. At this time, the patient is resting in bed without any further complaints. Bed alarm on. Call light within reach.
[2025-01-23 05:39] LABS: POC Glucose,Bedside 147 (70-110)
[2025-01-23 07:25] LABS: Basophils % 0.4 % (0.1-2.0); Eosinophils # 0.2 K/mm3 (0.0-0.4); Eosinophils % 2.5 % (0.1-12.0); Hematocrit 34.7 % (37.0-47.0); Hemoglobin 11.8 g/dL (12.2-16.2); Lymphocytes # 1.5 K/mm3 (0.7-4.5); Lymphocytes % 19.8 % (10-50); Mean Corpuscular Hemoglobin 34.5 pg (27.0-31.2); Mean Corpuscular Volume 101.5 fl (81-99); Monocytes # 0.6 K/mm3 (0.1-1.0); Neutrophils # 5.2 K/mm3 (1.8-7.8); Neutrophils % 68.6 % (37.0-80.0); Platelet Count 152 K/mm3 (142-424); Red Blood Count 3.42 M/mm3 (4.20-5.40); Red Cell Distribution Width 14.6 % (11.5-17.5); White Blood Count 7.6 K/mm3 (4.8-10.8)
[2025-01-23 07:35] LABS: Alanine Aminotransferase 51 U/L (12-78); Albumin Level 3.5 g/dl (3.5-5.0); Albumin/Globulin Ratio 1.3 (1.1-1.8); Alkaline Phosphatase 222 U/L (38-126); Anion Gap 5.5 mEq/L (5-15); Aspartate Amino Transferase 32 U/L (14-36); Bilirubin,Total 0.6 mg/dl (0.2-1.3); Blood Urea Nitrogen 74 mg/dl (7-17); Calcium 8.4 mg/dl (8.4-10.2); Carbon Dioxide 34 mmol/L (22.0-30.0); Chloride 97 mmol/L (98-107); Creatinine Clearance Estimated 56 mL/min (50-200); Estimated Glomerular Filt Rate 35 ml/min (>60); GFR (African American) 42 ML/MIN (>60); Globulin 2.8 g/dL (1.3-3.2); Glucose 168 mg/dl (74-100); Magnesium 3.2 mg/dl (1.6-2.3); Potassium 3.5 mmoL/L (3.5-5.1); Sodium 133 mmol/L (136-145); Total Protein,Serum 6.3 g/dl (6.3-8.2)
[2025-01-23] MEDS: POLYETHYLENE GLYCOL 3350 17 GM PACKET PO (08:01)
[2025-01-23] MEDS: CEFTRIAXONE 1 GM 1 GM in 0.9 % SODIUM CHLORIDE 50 ML IV (08:01)
[2025-01-23] MEDS: GABAPENTIN 300MG CAPSULE 300 MG PO (08:01)
[2025-01-23] MEDS: DAPAGLIFLOZIN PROPANEDIOL 10 MG TABLET PO (09:05)
[2025-01-23] MEDS: BUMETANIDE 1 MG TABLET PO (09:05)
[2025-01-23] MEDS: BISOPROLOL 5MG TABLET 5 MG PO (09:05)
[2025-01-23] MEDS: SPIRONOLACTONE 25MG TABLET 25 MG PO (09:06)
[2025-01-23] MEDS: DIGOXIN 0.125MG TABLET 125 MCG PO (09:06)
[2025-01-23] MEDS: ACETAMINOPHEN 325MG TAB 650 MG PO (09:42)
--- NOTE | 2025-01-23 10:37 | P.DS_ITS ---
General Admission date:: 01/21/25 HPI HPI HPI: Sara Charlton is a 69-year-old female with a medical history significant for HFrEF who presents after passing out at home. #Syncope #Hypoglycemia #Dehydration #Hypokalemia #DEBORAH ? Patient recently had a blood sugar of 500 at home, and has since dramatically decreased her oral intake over the past few days. ? Today she was standing up from a toilet when she became lightheaded and passed out. She states she later checked her blood sugar which was in the 50s. ? Initial creatinine 2.4 (baseline 1.6), BUN 105, potassium 2.4. Blood sugar 135. ? Presentation most consistent with hypovolemia/dehydration from decreased oral intake over the past few days. ? Continue IV and oral repletion of potassium. ? Ordered 500 mL bolus. Continue with IV NS at 75 mL/h. ? Follow-up orthostatic vitals. ? Hold home diuretics, blood pressure medications at this time. BP soft at this time. Hospital Course Hospital Course Hospital Course: Sara Edwards is a 69-year-old female with a medical history significant for HFrEF who presents after passing out at home. She was discharged about a week ago for HFrEF exacerbation, diuresed adequately. However, patient was diagnosed with UTI during which her blood sugars were apparently in the 500s. Patient subsequently reduced her food intake substantially, including fluids. This morning, patient was getting up from the toilet when she became dizzy and passed out. She states she then checked her blood sugars which were in the 50s prompting her to come to the ED. Creatinine 2.4 (baseline 1.6, BUN 105, potassium 2.4, blood sugar 135. Case discussed with ED provider and decision was made to admit patient for syncope, DEBORAH, hypokalemia, dehydration, hypoglycemia. #Syncope, vasovagal #DEBORAH #Hypokalemia #Hypoglycemia #Dehydration ? Patient recently had a blood sugar of 500 at home, and has since dramatically decreased her oral intake over the past few days. On day of admission she was standing up from a toilet when she became lightheaded and passed out. She states she later checked her blood sugar which was in the 50s. Presentation most consistent with hypovolemia/dehydration/vasovagal syncope from decreased oral intake and continue diuretics over the past few days. ? Initial creatinine 2.4 (baseline 1.6), BUN 105, potassium 2.4. Blood sugar 135. ? Creatinine improved to 1.5 with IV and oral fluid resuscitation. Potassium improved to 3.5. ? PT recommended SNF, patient was walking hallways essentially independently and preferred home health instead. ? Will follow-up with cardiology within the next few days for repeat labs and discussion about diuretics. #HFrEF #Hypertension ? Continue home bisoprolol 5 mg, Bumex 1 mg twice daily, spironolactone 25 mg. Hold home metolazone, valsartan until follow-up with cardiology. #Type 2 diabetes ? Blood sugar stable here. No hypoglycemia. ? LDSSI, ACHS glucose checks during admission. ? Continue home Farxiga, Ozempic, insulin. ? Advised patient to eat well-nourished meals and check blood sugars at home. #Seizure disorder ?Continue home phenobarbital. #GERD ? Continue home PPI. Total time spent on discharge: 32 minutes on chart review, counseling, documentation, and direct care with patient. Exam Data for Last 24 hours Vital signs and Labs for Last 24 Hours: Temp Pulse Resp BP Pulse Ox O2 Del Method 97.8 F 70 18 107/63 L 99 Room Air 01/23/25 08:00 01/23/25 09:06 01/23/25 08:00 01/23/25 08:00 01/23/25 08:00 01/23/25 09:00 Laboratory Results - last 24 hr 01/22/25 10:58: POC Glucose 225 H 01/22/25 14:45: Sodium 129 L, Potassium 3.4 L, Chloride 89 L, Carbon Dioxide 31 H, Anion Gap 12.4, BUN 86 H, Creatinine 2.20 H, Estimated Creat Clear 38, Estimated GFR 22 L, Est GFR ( Amer) 27 L, Glucose 288 H D, Calcium 7.8 L 01/22/25 16:31: POC Glucose 254 H 01/22/25 19:55: Sodium 130 L, Potassium 3.2 L, Chloride 91 L, Carbon Dioxide 34 H, Anion Gap 8.2, BUN 83 H, Creatinine 2.00 H, Estimated Creat Clear 42, Estimated GFR 25 L, Est GFR ( Amer) 30 L, Glucose 244 H, Calcium 8.1 L 01/22/25 20:20: POC Glucose 274 H 01/23/25 05:30: POC Glucose 147 H 01/23/25 06:54: WBC 7.6 D, RBC 3.42 L, Hgb 11.8 L, Hct 34.7 L, MCV 101.5 H, MCH 34.5 H, MCHC 34.0, RDW 14.6, Plt Count 152, MPV 10.0, Neut % (Auto) 68.6, Lymph % (Auto) 19.8, [place] % (Auto) 8.0, Eos % (Auto) 2.5, Baso % (Auto) 0.4, Neut # (Auto) 5.2, Lymph # (Auto) 1.5, [place] # (Auto) 0.6, Eos # (Auto) 0.2, Baso # (Auto) 0.0, Sodium 133 L, Potassium 3.5, Chloride 97 L, Carbon Dioxide 34 H, Anion Gap 5.5, BUN 74 H, Creatinine 1.50 H D, Estimated Creat Clear 56, Estimated GFR 35 L, Est GFR ( Amer) 42 L D, Glucose 168 H D, Calcium 8.4, Magnesium 3.2 H, Total Bilirubin 0.6, AST 32, ALT 51, Alkaline Phosphatase 222 H , Total Protein 6.3, Albumin 3.5, Globulin 2.8, Albumin/Globulin Ratio 1.3 I & O for Last 24 hours: Intake & Output 01/20/25 01/21/25 01/22/25 01/23/25 23:59 23:59 23:59 23:59 Intake Total 3274 / 3374 750 / 750 Output Total 450 / 450 0 / 0 Balance -450 / 50 3274 / 3374 750 / 750 Weight 93.242 kg 96.978 kg 96.933 kg Microbiology Reports for the Last 24 Hours: Microbiology 01/21/25 15:35 Blood Blood Culture - Preliminary NO GROWTH AFTER 24 HOURS 01/21/25 15:35 Blood Blood Culture - Preliminary NO GROWTH AFTER 24 HOURS Constitutional Constitutional: no acute distress *Routine HEENT Exam Head: Present normocephalic Eye: Present EOMI and PERRL ENT: Present mucous membranes moist *Routine Neck Exam Neck: Present supple; Absent lymphadenopathy *Routine Respiratory Exam Respiratory: Present CTA bilaterally *Routine Cardiovascular Exam Cardiovascular: Present RRR *Routine Abdominal Exam Abdominal: Present soft and normoactive bowel sounds; Absent tenderness *Routine Extremities Exam Extremities: Absent cyanosis, clubbing or edema *Routine Skin Exam Skin: Present warm; Absent rash *Routine Neurological Exam Neurological: Present alert and oriented X3 Results Data Completed and Pending Labs on day of discharge: Labs from last 24 hours 01/23/25 01/23/25 01/22/25 06:54 05:30 20:20 WBC 7.6 D RBC 3.42 L Hgb 11.8 L Hct 34.7 L MCV 101.5 H MCH 34.5 H MCHC 34.0 RDW 14.6 Plt Count 152 MPV 10.0 Neut % (Auto) 68.6 Lymph % (Auto) 19.8 [place] % (Auto) 8.0 Eos % (Auto) 2.5 Baso % (Auto) 0.4 Neut # (Auto) 5.2 Lymph # (Auto) 1.5 [place] # (Auto) 0.6 Eos # (Auto) 0.2 Baso # (Auto) 0.0 Sodium 133 L Potassium 3.5 Chloride 97 L Carbon Dioxide 34 H Anion Gap 5.5 BUN 74 H Creatinine 1.50 H D Estimated Creat Clear 56 Estimated GFR 35 L Est GFR ( Amer) 42 L D Glucose 168 H D POC Glucose 147 H 274 H Calcium 8.4 Magnesium 3.2 H Total Bilirubin 0.6 AST 32 ALT 51 Alkaline Phosphatase 222 H Total Protein 6.3 Albumin 3.5 Globulin 2.8 Albumin/Globulin Ratio 1.3 01/22/25 01/22/25 01/22/25 19:55 16:31 14:45 WBC RBC Hgb Hct MCV MCH MCHC RDW Plt Count MPV Neut % (Auto) Lymph % (Auto) [place] % (Auto) Eos % (Auto) Baso % (Auto) Neut # (Auto) Lymph # (Auto) [place] # (Auto) Eos # (Auto) Baso # (Auto) Sodium 130 L 129 L Potassium 3.2 L 3.4 L Chloride 91 L 89 L Carbon Dioxide 34 H 31 H Anion Gap 8.2 12.4 BUN 83 H 86 H Creatinine 2.00 H 2.20 H Estimated Creat Clear 42 38 Estimated GFR 25 L 22 L Est GFR ( Amer) 30 L 27 L Glucose 244 H 288 H D POC Glucose 254 H Calcium 8.1 L 7.8 L Magnesium Total Bilirubin AST ALT Alkaline Phosphatase Total Protein Albumin Globulin Albumin/Globulin Ratio 01/22/25 10:58 WBC RBC Hgb Hct MCV MCH MCHC RDW Plt Count MPV Neut % (Auto) Lymph % (Auto) [place] % (Auto) Eos % (Auto) Baso % (Auto) Neut # (Auto) Lymph # (Auto) [place] # (Auto) Eos # (Auto) Baso # (Auto) Sodium Potassium Chloride Carbon Dioxide Anion Gap BUN Creatinine Estimated Creat Clear Estimated GFR Est GFR ( Amer) Glucose POC Glucose 225 H Calcium Magnesium Total Bilirubin AST ALT Alkaline Phosphatase Total Protein Albumin Globulin Albumin/Globulin Ratio Preliminary micro results at discharge 01/21/25 15:35 Blood Culture - Preliminary Blood NO GROWTH AFTER 24 HOURS 01/21/25 15:35 Blood Culture - Preliminary Blood NO GROWTH AFTER 24 HOURS Meds Home Medications and Allergies Home Medications ?Medication ?Instructions ?Recorded ?Confirmed ?Type atorvastatin 10 mg tablet 10 mg PO DAILY 12/03/17 01/24/25 History pantoprazole 40 mg tablet,delayed 40 mg PO BID 12/03/17 01/24/25 History release tramadol 50 mg tablet 50 mg PO Q6HP PRN Mild Pain (Scale 12/03/17 01/24/25 History Score 1-4) phenobarbital 32.4 mg tablet 97.2 mg PO HS 02/12/20 01/24/25 History digoxin 125 mcg (0.125 mg) tablet 125 mcg PO DAILY 03/27/20 01/24/25 History ropinirole 2 mg tablet 2 mg PO HS 03/28/20 01/24/25 History gabapentin 800 mg tablet 800 mg PO TID 02/26/21 01/24/25 History dapagliflozin propanediol 10 mg 10 mg PO DAILY #30 tabs 12/14/24 01/24/25 Rx tablet (Farxiga) semaglutide 0.25 mg or 0.5 mg (2 0.5 mg SQ WEEKLY 01/06/25 01/24/25 History mg/3 mL) subcutaneous pen injector (Ozempic) allopurinol 100 mg tablet 100 mg PO DAILY 01/11/25 01/24/25 History bisoprolol fumarate 5 mg tablet 5 mg PO DAILY 01/11/25 01/24/25 History isosorbide mononitrate 30 mg 30 mg PO DAILY 01/11/25 01/24/25 History tablet,extended release 24 hr loratadine 10 mg tablet 10 mg PO DAILY 01/11/25 01/24/25 History rivaroxaban 20 mg tablet (Xarelto) 20 mg PO QPMWITHMEAL 01/11/25 01/24/25 History bumetanide 1 mg tablet 1 mg PO BIDL #60 tabs 01/12/25 01/24/25 Rx spironolactone 25 mg tablet 25 mg PO BIDL 30 days #0 tabs 01/12/25 01/24/25 Rx valsartan 40 mg tablet 40 mg PO DAILY #60 tabs 01/12/25 01/24/25 Rx insulin human U-100 NPH-regulr 20 unit SQ BIDWMEAL 01/22/25 01/24/25 History 70-30 mix 100 unit/mL subcutaneous susp (Humulin 70/30 U-100 Insulin) New Prescriptions to Start Prescriptions: Allergies Allergy/AdvReac Type Severity Reaction Status Date / Time metoclopramide (From REGLAN) Allergy Mild SHAKES Verified 01/24/25 09:26 empagliflozin (From AdvReac Mild itching Verified 01/24/25 09:26 Jardiance) Discharge Plan Disposition Patient Disposition: Home Health Service Condition: Fair Discharge Order Discharge Orders: Discharge Order (Routine); Ordered 01/23/25 Ordered By: Jairo Adame Follow up Plan Follow up with: Abhijit Armstrong MD [Staff Physician] - 01/24/25 (please call for appointment) Prescriptions/Medication Reconciliation: Continued gabapentin 800 mg tablet 800 mg PO TID Ozempic 0.25 mg or 0.5 mg (2 mg/3 mL) pen injector 0.5 mg SQ WEEKLY Patient Comments: INJECT 0.5 MG SUBCUTANEOUSLY ONCE a WEEK DIRECTED on Friday dapagliflozin propanediol [Farxiga] 10 mg tablet 10 mg PO DAILY Qty: 30 5RF atorvastatin 10 MG tablet 10 mg PO DAILY tramadol 50 MG tablet 50 mg PO Q6HP PRN (Reason: Mild Pain (Scale Score 1-4)) pantoprazole 40 MG tablet,delayed release (DR/EC) 40 mg PO BID phenobarbital 32.4 MG tablet 97.2 mg PO HS Humulin 70/30 U-100 Insulin 100 unit/mL (70-30) suspension 20 unit SQ BIDWMEAL Patient Comments: INJECT 100 UNITS SUBCUTANEOUSLY EVERY DAY IN THE MORNING AND INJECT 60 UNITS IN THE EVENING digoxin 125 MCG tablet 125 mcg PO DAILY ropinirole 2 MG tablet 2 mg PO HS allopurinol 100 mg tablet 100 mg PO DAILY loratadine 10 mg tablet 10 mg PO DAILY Patient Comments: TAKE ONE TABLET BY MOUTH EVERY DAY isosorbide mononitrate 30 mg tablet extended release 24 hr 30 mg PO DAILY bisoprolol fumarate 5 mg tablet 5 mg PO DAILY Xarelto 20 mg tablet 20 mg PO QPMWITHMEAL bumetanide 1 mg tablet 1 mg PO BIDL Qty: 60 0RF spironolactone 25 mg tablet 25 mg PO BIDL 30 Days Qty: 0 0RF Held valsartan 40 mg tablet 40 mg PO DAILY Qty: 60 3RF Hold Instructions: Resume on 02/06/25. Your blood pressures are low normal. Please talk to cardiology before restarting this medication. Problem Reconciliation Problems Reviewed?: Yes Patient Discharge Instructions Patient Instructions: Congestive Heart Failure (Alternative Therapy), Fainting, Heart Failure, Sepsis, Lifestyle Habits May Lower Lifetime Risk of Heart Failure in Men Print Language: Lithuanian Providers Primary Care Provider: Rad Galvan Admit Provider: Jairo Adame Attending Provider: Jairo Adame
[2025-01-23] MEDS: humaLOG 100 UNITS/ML 10ML VIAL (SSI) SUBCUT (11:02)
[2025-01-23 11:12] LABS: POC Glucose,Bedside 303 (70-110)
--- NOTE | 2025-01-23 11:37 | CT_ITS ---
PROCEDURE INFORMATION: Exam: CT Head Without Contrast Exam date and time: 01/23/2025 12:12 PM Age: 69 years old Clinical indication: Altered mental status/memory loss; Additional info: AMS, lethargic, fall on xarelto a few days ago TECHNIQUE: Imaging protocol: Computed tomography of the head without contrast. Radiation optimization: All CT scans at this facility use at least one of these dose optimization techniques: automated exposure control; mA and/or kV adjustment per patient size (includes targeted exams where dose is matched to clinical indication); or iterative reconstruction. COMPARISON: CT HEAD/BRAIN WO CON 01/21/2025 3:51 PM FINDINGS: Brain: No extra-axial fluid collection. No hemorrhage. Scattered periventricular white matter hypoattenuation, likely reflecting chronic microvascular disease. No mass effect. Cerebral ventricles: No ventriculomegaly. Paranasal sinuses: Near-complete opacification of the left maxillary sinus. A few scattered ethmoidal air cells demonstrate filling. Mastoid air cells: Visualized mastoid air cells are well aerated. Teeth: Scattered dental disease. Bones: Unremarkable. No acute fracture. Soft tissues: Unremarkable. Other findings: Heavy intracranial atherosclerotic disease. IMPRESSION: 1. No acute intracranial findings. 2. Findings which can be seen in sinusitis. Correlate clinically.
[2025-01-23 12:49] LABS: VBG Base Excess 4.8 mmol/L (-2.4-2.3); VBG HCO3 28.5 mmol/L (23-30); VBG Oxygen Saturation 97.3 % (50-70); VBG PCO2 40.2 mmol/L (35-51); VBG PH 7.47 mmol/L (7.31-7.41); VBG PO2 100.8 mmol/L (28-40); VBG Total CO2 29.7 mmol/L (23-27)
--- NOTE | 2025-01-24 10:25 | SW/DCPLANNER ---
Addendum entered by Janice Byrnes 01/24/25 15:16: Patient was accepted by [facility]. Bryan Aldrich Original Note: Spoke with patient on the phone. Patient stated that she is doing well. Patient stated that she is at her Dr appointment. Patient stated that she would be interested in home health services and that she did not have a preference. Faxed patients info to [facility]. Will update when i hear back from [facility] if they are able to accept and update. Patient stated that she has no concerns or questions at this time. Bryan Aldrich
== END 2025-01-23 14:14 | disposition home health service (06) ==
LOC: ER 17:10 → 2ND 17:35
PROVIDERS: Admitting Provider Student in an Organized Health Care Education/Training Program; Emergency Provider Emergency Medicine; PCP Family Medicine; Visit Provider Student in an Organized Health Care Education/Training Program
DX: N17.9 Acute kidney failure, unspecified (principal); R55 Syncope and collapse; E11.649 Type 2 diabetes mellitus with hypoglycemia without coma; E87.6 Hypokalemia; I11.0 Hypertensive heart disease with heart failure; I50.22 Chronic systolic (congestive) heart failure; G40.909 Epilepsy, unspecified, not intractable, without status epilepticus; K21.9 Gastro-esophageal reflux disease without esophagitis; E66.9 Obesity, unspecified; E78.5 Hyperlipidemia, unspecified; Z79.02 Long term (current) use of antithrombotics/antiplatelets; Z79.84 Long term (current) use of oral hypoglycemic drugs; Z79.85 Long-term (current) use of injectable non-insulin antidiabetic drugs; Z79.4 Long term (current) use of insulin; Z79.01 Long term (current) use of anticoagulants; Z88.8 Allergy status to other drugs, medicaments and biological substances; Z79.899 Other long term (current) drug therapy; Z68.41 Body mass index [BMI] 40.0-44.9, adult; Z80.9 Family history of malignant neoplasm, unspecified; Z83.3 Family history of diabetes mellitus; Z83.6 Family history of other diseases of the respiratory system; Z83.49 Family history of other endocrine, nutritional and metabolic diseases; Z82.49 Family history of ischemic heart disease and other diseases of the circulatory system
CPT/HCPCS: 36415; 70450; 71045; 72125; 80048; 80053; 81001; 82803; 82962; 83605; 83735; 83880; 84484; 85007; 85025; 85610; 85730; 87040; 93005; 97161; 99291; G0378; J0696; J2405; J2543; J3372; J3475; J7030

== ENCOUNTER 2025-01-24 10:00 | Outpatient (CLI) | payer MEDICARE, SELFPAY ==
[2025-01-24 11:27] LABS: Chloride 96 mmol/L (98-107); Sodium 136 mmol/L (136-145)
[2025-01-24 11:30] LABS: Blood Urea Nitrogen 66 mg/dl (7-17); Carbon Dioxide 32 mmol/L (22.0-30.0); Estimated Glomerular Filt Rate 50 ml/min (>60); GFR (African American) 60 ML/MIN (>60)
[2025-01-24 11:31] LABS: Calcium 9.1 mg/dl (8.4-10.2); Glucose 169 mg/dl (74-100)
[2025-01-24 11:39] LABS: Anion Gap 11.1 mEq/L (5-15); Potassium 3.1 mmoL/L (3.5-5.1)
== END 2025-01-24 23:59 | disposition home or self-care (01) ==
LOC: LAB 10:01
PROVIDERS: PCP Family Medicine; Visit Provider Internal Medicine
DX: N17.9 Acute kidney failure, unspecified (principal)
CPT/HCPCS: 36415; 80048

== ENCOUNTER 2025-02-03 13:52 | Outpatient (CLI) | payer MEDICARE, SELFPAY ==
[2025-02-03 14:23] LABS: Basophils % 0.7 % (0.1-2.0); Eosinophils # 0.1 K/mm3 (0.0-0.4); Eosinophils % 1.8 % (0.1-12.0); Hematocrit 34.9 % (37.0-47.0); Lymphocytes # 1.3 K/mm3 (0.7-4.5); Lymphocytes % 24.1 % (10-50); Mean Corpuscular HGB Conc 34.4 g/dL (31.8-35.4); Mean Corpuscular Hemoglobin 34.8 pg (27.0-31.2); Mean Corpuscular Volume 101.2 fl (81-99); Mean Platelet Volume 9.7 fl (7.4-10.4); Monocytes # 0.5 K/mm3 (0.1-1.0); Monocytes % 8.4 % (1.7-9.3); Neutrophils # 3.5 K/mm3 (1.8-7.8); Neutrophils % 64.6 % (37.0-80.0); Platelet Count 135 K/mm3 (142-424); Red Blood Count 3.45 M/mm3 (4.20-5.40); Red Cell Distribution Width 14.5 % (11.5-17.5); White Blood Count 5.5 K/mm3 (4.8-10.8)
[2025-02-03 15:36] LABS: Alanine Aminotransferase 44 U/L (12-78); Albumin Level 4.3 g/dl (3.5-5.0); Alkaline Phosphatase 205 U/L (38-126); Anion Gap 12.9 mEq/L (5-15); Aspartate Amino Transferase 50 U/L (14-36); Bilirubin,Direct 0.4 mg/dl (0.0-0.4); Bilirubin,Indirect 0.3 mg/dL (0.0-0.9); Bilirubin,Total 0.7 mg/dl (0.2-1.3); Bilirubin,Unconjugated 0.3 mg/dL (0.0-1.1); Blood Urea Nitrogen 41 mg/dl (7-17); Calcium 9.2 mg/dl (8.4-10.2); Carbon Dioxide 28 mmol/L (22.0-30.0); Chloride 93 mmol/L (98-107); Estimated Glomerular Filt Rate 41 ml/min (>60); GFR (African American) 49 ML/MIN (>60); Glucose 148 mg/dl (74-100); Potassium 3.9 mmoL/L (3.5-5.1); Sodium 130 mmol/L (136-145)
[2025-02-03 15:48] LABS: NT Pro Brain Natriuretic Pep. 1960 pg/mL (0-125)
== END 2025-02-03 23:59 | disposition home or self-care (01) ==
LOC: LAB 13:54
PROVIDERS: PCP Family Medicine; Visit Provider Internal Medicine
DX: E11.610 Type 2 diabetes mellitus with diabetic neuropathic arthropathy (principal); Z79.4 Long term (current) use of insulin; I11.0 Hypertensive heart disease with heart failure; I50.32 Chronic diastolic (congestive) heart failure; I25.118 Atherosclerotic heart disease of native coronary artery with other forms of angina pectoris; E78.2 Mixed hyperlipidemia
CPT/HCPCS: 36415; 80048; 80076; 83880; 84439; 84443; 85025

== ENCOUNTER 2025-02-16 10:21 | Outpatient (CLI) | payer MEDICARE, SELFPAY ==
[2025-02-16 11:45] LABS: Magnesium 2.4 mg/dl (1.6-2.3)
== END 2025-02-16 23:59 | disposition home or self-care (01) ==
LOC: LAB 10:22
PROVIDERS: PCP Family Medicine; Visit Provider Physician Assistant
DX: I50.20 Unspecified systolic (congestive) heart failure (principal); E11.610 Type 2 diabetes mellitus with diabetic neuropathic arthropathy; Z79.4 Long term (current) use of insulin; I11.0 Hypertensive heart disease with heart failure; I50.32 Chronic diastolic (congestive) heart failure; I25.118 Atherosclerotic heart disease of native coronary artery with other forms of angina pectoris; E78.2 Mixed hyperlipidemia
CPT/HCPCS: 36415; 83735

== ENCOUNTER 2025-03-08 16:32 | Outpatient (CLI) | payer MEDICARE, SELFPAY ==
[2025-03-08 17:12] LABS: Basophils # 0.1 K/mm3 (0-0.2); Basophils % 0.5 % (0.1-2.0); Eosinophils # 0.2 K/mm3 (0.0-0.4); Eosinophils % 1.6 % (0.1-12.0); Hematocrit 38.2 % (37.0-47.0); Hemoglobin 12.6 g/dL (12.2-16.2); Lymphocytes # 1.2 K/mm3 (0.7-4.5); Lymphocytes % 13.2 % (10-50); Mean Corpuscular Hemoglobin 33.6 pg (27.0-31.2); Mean Corpuscular Volume 101.9 fl (81-99); Mean Platelet Volume 10.2 fl (7.4-10.4); Monocytes # 0.7 K/mm3 (0.1-1.0); Monocytes % 7.9 % (1.7-9.3); Neutrophils # 7.2 K/mm3 (1.8-7.8); Neutrophils % 76.5 % (37.0-80.0); Nucleated Red Blood Cells # 0 10^3/uL; Nucleated Red Blood Cells % 0 %; Platelet Count 200 K/mm3 (142-424); Red Blood Count 3.75 M/mm3 (4.20-5.40); Red Cell Distribution Width 14.1 % (11.5-17.5); Red Cell Distribution Width-SD 53.3 fL; White Blood Count 9.4 K/mm3 (4.8-10.8)
[2025-03-08 17:22] LABS: Albumin Level 4.1 g/dl (3.5-5.0); Chloride 96 mmol/L (98-107)
[2025-03-08 17:23] LABS: Potassium 3.7 mmoL/L (3.5-5.1); Sodium 137 mmol/L (136-145)
[2025-03-08 17:25] LABS: Alanine Aminotransferase 27 U/L (12-78); Amylase 51 U/L (30-110); Anion Gap 11.7 mEq/L (5-15); Aspartate Amino Transferase 38 U/L (14-36); Bilirubin,Unconjugated 0.8 mg/dL (0.0-1.1); Blood Urea Nitrogen 23 mg/dl (7-17); Calcium 9.3 mg/dl (8.4-10.2); Carbon Dioxide 33 mmol/L (22.0-30.0); Estimated Glomerular Filt Rate 45 ml/min (>60); GFR (African American) 54 ML/MIN (>60); Glucose 98 mg/dl (74-100)
[2025-03-08 17:26] LABS: Alkaline Phosphatase 282 U/L (38-126); Bilirubin,Direct 0.4 mg/dl (0.0-0.4); Bilirubin,Indirect 0.9 mg/dL (0.0-0.9); Bilirubin,Total 1.3 mg/dl (0.2-1.3); Cholesterol 96 mg/dl (140-200); HDL Cholesterol 49 mg/dl (40-60); Lipase 89 U/L (23-300); Triglycerides 99 mg/dl (30-150); VLDL Cholesterol 20 mg/dL (0-40)
[2025-03-08 17:37] LABS: NT Pro Brain Natriuretic Pep. 1230 pg/mL (0-125)
[2025-03-08 17:38] LABS: Direct LDL Cholesterol < 30.00 mg/dL (100-129)
[2025-03-08 17:59] LABS: Thyroid Stimulating Hormone 0.95 uIU/mL (0.465-4.68)
[2025-03-08 18:36] LABS: Free T4 (Free Thyroxine) 1.57 ng/dl (0.78-2.19)
== END 2025-03-08 23:59 | disposition home or self-care (01) ==
LOC: LAB 16:34
PROVIDERS: Physician Assistant; PCP Family Medicine; Visit Provider Internal Medicine
DX: I20.9 Angina pectoris, unspecified (principal); E11.610 Type 2 diabetes mellitus with diabetic neuropathic arthropathy; Z79.4 Long term (current) use of insulin; I27.20 Pulmonary hypertension, unspecified; I11.0 Hypertensive heart disease with heart failure; I50.42 Chronic combined systolic (congestive) and diastolic (congestive) heart failure; I42.0 Dilated cardiomyopathy; E78.5 Hyperlipidemia, unspecified
CPT/HCPCS: 36415; 80048; 80061; 80076; 82150; 83690; 83880; 84439; 84443; 85025

== ENCOUNTER 2025-03-30 19:38 | Emergency (ER) | payer MEDICARE, SELFPAY ==
[2025-03-30 19:45] VITALS: BP 141/67; PULSE 82; O2SAT 97
[2025-03-30 19:46] VITALS: BP 141/67; RESP 18; TEMP 37; O2SAT 98; BMI 37.8
[2025-03-30 20:30] VITALS: BP 133/58; PULSE 72; O2SAT 94
[2025-03-30 20:33] LABS: Basophils # 0.1 K/mm3 (0-0.2); Basophils % 0.7 % (0.1-2.0); Eosinophils # 0.2 Kmm3 (0.0-0.4); Eosinophils % 2.3 % (0.1-12.0); Hematocrit 37.6 % (37.0-47.0); Hemoglobin 12.4 g/dL (12.2-16.2); Immature Granulocytes # 0.07 10^3uL; Immature Granulocytes % 0.9 %; Lymphocytes # 1.3 K/mm3 (0.7-4.5); Mean Corpuscular Hemoglobin 33.2 pg (27.0-31.2); Mean Corpuscular Volume 100.5 fl (81-99); Mean Platelet Volume 10.7 fl (7.4-10.4); Monocytes # 0.6 K/mm3 (0.1-1.0); Monocytes % 6.7 % (1.7-9.3); Neutrophils % 73.4 % (37.0-80.0); Nucleated Red Blood Cells # 0 10^3/uL; Nucleated Red Blood Cells % 0 %; Platelet Count 206 K/mm3 (142-424); Red Blood Count 3.74 M/mm3 (4.20-5.40); Red Cell Distribution Width 14.6 % (11.5-17.5); Red Cell Distribution Width-SD 54.2 fL; White Blood Count 8.2 K/mm3 (4.8-10.8)
[2025-03-30 20:38] LABS: Magnesium 2.1 mg/dl (1.6-2.3); Phosphorous 4.2 mg/dl (2.5-4.5)
[2025-03-30 20:39] LABS: Alanine Aminotransferase 27 U/L (12-78); Albumin/Globulin Ratio 1.3 (1.1-1.8); Alkaline Phosphatase 278 U/L (38-126); Anion Gap 10.2 mEq/L (5-15); Aspartate Amino Transferase 54 U/L (14-36); Bilirubin,Total 0.9 mg/dl (0.2-1.3); Blood Urea Nitrogen 35 mg/dl (7-17); Carbon Dioxide 27 mmol/L (22.0-30.0); Chloride 100 mmol/L (98-107); Creatinine Clearance Estimated 52 mL/min (50-200); Estimated Glomerular Filt Rate 35 ml/min (>60); GFR (African American) 42 ML/MIN (>60); Globulin 3.1 g/dL (1.3-3.2); Potassium 4.2 mmoL/L (3.5-5.1); Sodium 133 mmol/L (136-145); Total Protein,Serum 7.1 g/dl (6.3-8.2)
[2025-03-30 20:45] LABS: Glucose 424 mg/dl (74-100)
--- NOTE | 2025-03-30 20:45 | PC.NURSE ---
lab called critical, glucose 424. notified
[2025-03-30 20:51] LABS: VBG Base Excess 4.1 mmol/L (-2.4-2.3); VBG HCO3 28.1 mmol/L (23-30); VBG Oxygen Saturation 96.5 % (50-70); VBG PCO2 41.6 mmol/L (35-51); VBG PH 7.45 mmol/L (7.31-7.41); VBG PO2 86.2 mmol/L (28-40); VBG Total CO2 29.4 mmol/L (23-27)
[2025-03-30] MEDS: INSULIN HUMAN REGULAR 100 UNITS/ML 10ML VIAL 10 UNIT IVP (20:53)
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
[2025-03-30 21:01] VITALS: BP 134/48; PULSE 71; O2SAT 95
[2025-03-30 21:30] VITALS: BP 135/60; PULSE 76; O2SAT 95
[2025-03-30] MEDS: GABAPENTIN 300MG CAPSULE 600 MG PO (21:30)
--- NOTE | 2025-03-30 21:59 | PC.NURSE ---
Pt's glucose was 371
[2025-03-30 22:03] VITALS: BP 124/57; PULSE 82; RESP 14; TEMP 36.9; O2SAT 95
== END 2025-03-30 22:09 | disposition home or self-care (01) ==
PROVIDERS: Emergency Provider Student in an Organized Health Care Education/Training Program; PCP Family Medicine
DX: E11.65 Type 2 diabetes mellitus with hyperglycemia (principal)
CPT/HCPCS: 80053; 82803; 83735; 84100; 85025; 99284

== ENCOUNTER 2025-04-13 22:05 | Emergency (ER) | payer MEDICARE, SELFPAY ==
--- NOTE | 2025-04-13 22:06 | ECG_ITS ---
APPROVED REPORT Exam: Resting ECG HR:71 bpm ECG Measurements Heart Rate 71 AXES QRSd 145 QRS 212 QT 431 T 62 QTc 454 Conclusion ELECTRONIC VENTRICULAR PACEMAKER ABNORMAL RHYTHM ECG No STEMI Electronically signed by : MARY GUERRERO, 04/16/2025 14:38:46
[2025-04-13 22:10] VITALS: BP 131/68; PULSE 81; RESP 24; TEMP 36.5; O2SAT 99; BMI 37.8
--- NOTE | 2025-04-13 22:13 | PC.NURSE ---
Pt in paced rhythm per continuous heart monitor
--- NOTE | 2025-04-13 22:17 | XR_ITS ---
PROCEDURE INFORMATION: Exam: XR Chest Exam date and time: 04/13/2025 10:31 PM Age: 69 years old Clinical indication: Dyspnea; Additional info: Chest pain TECHNIQUE: Imaging protocol: Radiologic exam of the chest. Views: 2 views. COMPARISON: CT CERVICAL SPINE W CON 04/24/2022 2:37 AM FINDINGS: Tubes, catheters and devices: Bilateral pacing/defibrillating devices are evident. Lungs: Small focus of airspace disease lateral right lung base. Pleural spaces: Unremarkable. No pleural effusion. No pneumothorax. Heart/Mediastinum: Unremarkable. No cardiomegaly. Vasculature: Unremarkable. Bones/joints: Unremarkable. IMPRESSION: Small inflammatory focus lateral right lung base.
[2025-04-13] MEDS: ACETAMINOPHEN 500MG TAB 1000 MG PO (22:35)
[2025-04-13] MEDS: BELLADONNA ALKALOIDS 60 ML ML PO (22:35)
[2025-04-13] MEDS: KETOROLAC 30MG/ML VIAL 15 MG IV (22:35)
[2025-04-13 22:37] VITALS: BP 125/57; PULSE 70; RESP 14; O2SAT 97
[2025-04-13] MEDS: ASPIRIN 81MG CHEWABLE TABLET 324 MG PO (22:37)
[2025-04-13 22:42] LABS: Basophils # 0.1 K/mm3 (0-0.2); Basophils % 0.6 % (0.1-2.0); Eosinophils # 0.2 Kmm3 (0.0-0.4); Eosinophils % 2.7 % (0.1-12.0); Hematocrit 37.5 % (37.0-47.0); Hemoglobin 12.5 g/dL (12.2-16.2); Immature Granulocytes # 0.04 10^3uL; Immature Granulocytes % 0.5 %; Lymphocytes # 1.3 K/mm3 (0.7-4.5); Mean Corpuscular HGB Conc 33.3 g/dL (31.8-35.4); Mean Corpuscular Hemoglobin 33.3 pg (27.0-31.2); Mean Platelet Volume 9.6 fl (7.4-10.4); Monocytes # 0.6 K/mm3 (0.1-1.0); Monocytes % 7.3 % (1.7-9.3); Neutrophils # 5.6 K/mm3 (1.8-7.8); Neutrophils % 71.9 % (37.0-80.0); Nucleated Red Blood Cells # 0 10^3/uL; Nucleated Red Blood Cells % 0 %; Platelet Count 197 K/mm3 (142-424); Red Blood Count 3.75 M/mm3 (4.20-5.40); Red Cell Distribution Width 14.8 % (11.5-17.5); Red Cell Distribution Width-SD 54.9 fL; White Blood Count 7.8 K/mm3 (4.8-10.8)
[2025-04-13 22:45] VITALS: PULSE 71
[2025-04-13 22:54] LABS: Alanine Aminotransferase 30 U/L (12-78); Albumin Level 4.2 g/dl (3.5-5.0); Albumin/Globulin Ratio 1.3 (1.1-1.8); Alkaline Phosphatase 341 U/L (38-126); Anion Gap 11.6 mEq/L (5-15); Aspartate Amino Transferase 50 U/L (14-36); Bilirubin,Total 0.8 mg/dl (0.2-1.3); Blood Urea Nitrogen 28 mg/dl (7-17); Calcium 8.9 mg/dl (8.4-10.2); Carbon Dioxide 29 mmol/L (22.0-30.0); Chloride 97 mmol/L (98-107); Creatinine Clearance Estimated 56 mL/min (50-200); Estimated Glomerular Filt Rate 38 ml/min (>60); GFR (African American) 45 ML/MIN (>60); Globulin 3.2 g/dL (1.3-3.2); Glucose 165 mg/dl (74-100); Potassium 3.6 mmoL/L (3.5-5.1); Sodium 134 mmol/L (136-145); Total Protein,Serum 7.4 g/dl (6.3-8.2)
[2025-04-13 22:59] LABS: D-Dimer 0.42 ug/mL (0.0-0.5)
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
[2025-04-13 23:02] VITALS: BP 142/69; PULSE 70; RESP 12; O2SAT 95
[2025-04-13 23:09] LABS: Troponin I < 0.01 ng/ml (0.00-0.034)
[2025-04-13 23:31] VITALS: BP 133/57; PULSE 70; RESP 18; O2SAT 96
[2025-04-14] VITALS (7 sets, daily range): BP systolic 120–135; BP diastolic 54–59; PULSE 58–82; RESP 11–16; TEMP 36.8; O2SAT 95–98
[2025-04-14 01:22] LABS: Troponin I < 0.01 ng/ml (0.00-0.034)
== END 2025-04-14 02:08 | disposition home or self-care (01) ==
PROVIDERS: Physician Assistant; Emergency Provider Emergency Medicine; PCP Family Medicine
DX: R07.89 Other chest pain (principal); I25.10 Atherosclerotic heart disease of native coronary artery without angina pectoris; E78.5 Hyperlipidemia, unspecified; I50.9 Heart failure, unspecified; E11.9 Type 2 diabetes mellitus without complications; I11.0 Hypertensive heart disease with heart failure; Z95.0 Presence of cardiac pacemaker
CPT/HCPCS: 71046; 80053; 84484; 85025; 85378; 93005; 96374; 99284; J1885

== ENCOUNTER 2025-05-26 14:39 | Outpatient (CLI) | payer MEDICARE, SELFPAY ==
--- OUTSIDE RECORDS SUMMARY | 2025-04-08 11:00 | XMS_ITS | Encounter Summary ---
Author Organization [facility] Address [address] [place] [address] Care Team Providers Care Bolt Header Name Role Phone Uli Salcedo Unavailable [phone] Rad Galvan MD Primary Care Provider Encounter Details Date Type Department Care Team (Late st Contact Info) Description 04/08/2025 11:00 AM EDT Office Visit [facility] [place] [address] [facility] [place] [address] Elvin Schuler MD [address] [place] [address] Chronic systolic congestive heart failure (CMS/HCC) (Primary [...] from the original note were not included. [facility] Sara Edwards is [...] of her function later. 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 A total time of 40 minutes was [...] Procedure Laterality Date APPENDECTOMY N/A Appendectomy from [facility] GALLBLADDER SURGERY N/A Anastomosis Of Gallbladder from [facility] TONSILLECTOMY N/A Tonsillectomy from [facility] [3] Current Outpatient Medications Medication Sig Dispense [...] Description 06/24/2025 12:45 PM EDT Office Visit [facility] [place] [address] [place] [address] Elvin Schuler MD [address] [place] [address] documented as of this encounter Procedures Procedure Name Priority Date/Time Associated Diagnosis Comments BASIC METABOLIC PANEL, PLASMA Routine 04/08/2025 1:05 PM EDT Chronic systolic congestive heart failure (CMS/HCC) documented in this encounter Results * (ABNORMAL) Basic Metabolic Panel, Plasma (04/08/2025 1:05 PM EDT) Glucose, Plasma 116(H) 74 - 99 mg/dL 04/08/2025 1:05 PM EDT [facility] BUN, Plasma 23 8 - 23 mg/dL 04/08/2025 1:05 PM EDT [facility] Creatinine, Plasma 1.04 0.60 - 1.10 mg/dL 04/08/2025 1:05 PM EDT [facility] BUN/Creatinine Ratio 22 04/08/2025 1:05 PM EDT [facility] Sodium, Plasma 133(L) 136 - 145 mmol/L 04/08/2025 1:05 PM EDT [facility] Potassium, Plasma 04/08/2025 1:05 PM EDT [facility] Comment: Hemolyzed Chloride, Plasma 99 97 - 107 mmol/L 04/08/2025 1:05 PM EDT [facility] CO2, Plasma 24 22 - 29 mmol/L 04/08/2025 1:05 PM EDT [facility] Anion Gap 10 6 - 16 mmol/L 04/08/2025 1:05 PM EDT [facility] Total Calcium, Plasma 9.6 8.9 - 10.2 mg/dL 04/08/2025 1:05 PM EDT [facility] eGFRcr 59.0 mL/min/1.7 3m*2 04/08/2025 1:05 PM EDT [facility] Comment:Reported eGFRcr in m L/min/1.73m2 is based the CKD-EPI 2020 equation that does not use a race coefficient. Blood Venous blood specimen / Unknown 04/08/2025 12:36 PM EDT us Chika Orellana AUTOMATION DRIVER LAB BLOOD ORDERABLES Final Result [facility] [address] [place] [address] documented in this encounter Visit Diagnoses Diagnosis [...] documented as of this encounter Care Teams Bolt Header Relationship Specialty Start Date End Date Rad Galvan MD [address] [place] [address] PCP - General 04/08/25 Uli Salcedo PA [address] [place] [address] Referring Physician 02/03/25 documented as of this encounter
--- OUTSIDE RECORDS SUMMARY | 2025-05-30 10:22 | XMS_ITS | Clinical Summary ---
Author Organization [facility] Address [address] [place] [address] Care Team Providers Care System Specialist Name Role Phone Uli Salcedo Unavailable [phone] Rad Galvan MD Primary Care Provider [phone] Allergies Active Allergy Reactions Criticality Noted Date [...] Type Department Care Team Description 04/26/2025 Telephone [facility] [address] [place] [address] Yaritza Johnson RN 04/08/2025 11:00 AM EDT Office Visit [facility] [address] [place] [address] Elvin Schuler MD Chronic systolic congestive heart failure (CMS/HCC) (Primary Dx) 04/08/2025 Travel 04/07/2025 Telephone [facility] [address] [address] Elvin Schuler MD 03/30/2025 10:40 AM EDT - 03/30/2025 12:00 PM EDT Surgery Cardiac Medical Coding Manager [address] [place] [id number] Brodie Carranza MD Cardiomems w/Right Heart Cath [69891 (CPT )] 03/30/2025 9:45 AM EDT - 03/30/2025 2:35 PM EDT Hospital Encounter Cardiac Medical Coding Manager [address] [place] [address] Brodie Carranza MD Congestive heart failure, unspecified [...] Description 06/24/2025 12:45 PM EDT Office Visit [facility] [place] [address] [place] [address] Elvin Schuler MD [address] [place] [address] Health Maintenance Due Date Last Done Comments [facility]-Bone Density Scan 1957 [facility]-/Child/Adol SDOH Screenings 1957 Diabetes: Dental Exam 1967 [facility]- SDOH Screenings 1975 [facility]-Adult SDOH Screenings 1975 [facility]-DTaP,Tdap,and Td Vaccines (1 - Tdap) 01/24/1997 01/23/1997 CT Colonography 2002 Colonoscopy 2002 FIT 2002 FOBT 2002 Sigmoidoscopy 2002 [facility]-Breast Cancer Screening 2007 [facility]-Zoster Vaccines (1 of 2) 2007 [id number] Vaccine (5 - season) 2024 09/06/2022, 11/28/2021, [...] - 99 mg/dL 04/08/2025 1:05 PM EDT [facility] BUN, Plasma 23 8 - 23 mg/dL 04/08/2025 1:05 PM EDT [facility] Creatinine, Plasma 1.04 0.60 - 1.10 mg/dL 04/08/2025 1:05 PM EDT [facility] BUN/Creatinine Ratio 22 04/08/2025 1:05 PM EDT [facility] Sodium, Plasma 133(L) 136 - 145 mmol/L 04/08/2025 1:05 PM EDT [facility] Potassium, Plasma 04/08/2025 1:05 PM EDT [facility] Comment: Hemolyzed Chloride, Plasma 99 97 - 107 mmol/L 04/08/2025 1:05 PM EDT [facility] CO2, Plasma 24 22 - 29 mmol/L 04/08/2025 1:05 PM EDT [facility] Anion Gap 10 6 - 16 mmol/L 04/08/2025 1:05 PM EDT [facility] Total Calcium, Plasma 9.6 8.9 - 10.2 mg/dL 04/08/2025 1:05 PM EDT [facility] eGFRcr 59.0 mL/min/1.7 3m*2 04/08/2025 1:05 PM EDT [facility] Comment:Reported eGFRcr in m L/min/1.73m2 is based the CKD-EPI 2020 equation that does not use a race coefficient. Blood Venous blood specimen / Unknown 04/08/2025 12:36 PM EDT Chika Hector Esteban RHODES LAB BLOOD ORDERABLES Final Result [facility] [address] [place] [address] * CARDIOMEMS W/RIGHT HEART CATH (03/30/2025 11:39 [...] into the left pulmonary artery, percutaneous approach. ([id number]) Access: Right Jugular vein 11Fr Rosine Sheath Procedure: After obtaining a consent, the patient was brought into the catheterization laboratory, placed on the table and the next was prepped and draped in a sterile fashion. Next, the skin overlaying right jugular vein was anesthetized using 1% Lidocaine. Subsequently, utilizing an 18gauge [employer] needle, right jugular vein was accessed utilizing ultrasound guidance. Using the J-tipped wire included in the access kit, which was inserted through the needle, an 11Fr Rosine sheath was inserted over the wire, subsequently blood was aspirated and the sheath flushed. Subsequently a 7 Czech wedge catheter was passed through the Rosine sheath into the RA, RV and PA [...] right pulmonary artery for calibration. Ultimately the Rosine sheath was withdrawn with patient exhaling during [...] Co-Oximetry Mixed Venous (03/30/2025 11:23 AM EDT) [facility] POCT Oxyhemoglobin, Mixed Venous 59.1 % 03/30/2025 11:24 AM EDT [facility] Campaign Assistant ID Eva Hernandez 03/30/2025 11:24 AM EDT [facility] Device ID [id number] 1 03/30/2025 11:24 AM EDT [facility] POCT Sample Site PA 03/30/2025 11:24 AM EDT [facility] POCT Total Hemoglobin 11.8 11.2 - 15.7 g/dL 03/30/2025 11:24 AM EDT [facility] 03/30/2025 11:2 3 AM EDT 03/30/2025 11:24 AM EDT us Brodie Carranza MD LAB POINT OF CARE TEST DOCKED DEVICE UNSOLICITED RESULTS Final Result Performing Organization Address City/[facility]/ZIP Co de Phone Number [facility] [address] [place] [address] * POCT CO-Oximitry, Venous (03/30/2025 11:19 AM EDT) POCT OXYHEMOGLOBIN, VENOUS 64 40 - 70 % 03/30/2025 11:20 AM EDT [facility] Campaign Assistant ID Eva Hernandez 03/30/2025 11:20 AM EDT [facility] Device ID [id number] 1 03/30/2025 11:20 AM EDT [facility] POCT Sample Site SVC 03/30/2025 11:20 AM EDT [facility] POCT Total Hemoglobin 12.1 11.2 - 15.7 g/dL 03/30/2025 11:20 AM EDT [facility] Venous blood specimen / Unknown 03/30/2025 11:19 AM EDT 03/30/2025 11:20 AM EDT us Brodie Carranza MD LAB POINT OF CARE TEST DOCKED DEVICE UNSOLICITED RESULTS Final Result [facility] [address] [place] [address] * [place] Hepatitis C Antibody (11/26/2020 6:51 PM EST) [place] Hepatitis C Ab NEGATIVE Reference Range: Negative [facility]QUEST 11/26/2020 6:51 PM EST 11/26/2020 7:09 PM EST Justo Morse MD LAB BLOOD ORDERABLES Final Re sult SUNQUEST from Last 3 Months or Most Recently Relevant to Health Maintenance Insurance [employer] MEDICARE Advance Directives Documents on File Type Date Recorded Patient Booster Pump Oiler Expl anation Advance Directives and Living Will 03/30/2025 LIVING WILL DIRECTIV E Healthcare Agents on File Name Relationship Healthcare Agent Relationshi p Communication Yennifer Edwards Daughter Next of Kin Care Teams System Specialist Relationship Specialty Start Date End Date Rad Galvan MD [address] [place] [address] PCP - General 04/08/25 Uli Salcedo PA [address] [place] [address] Referring Physician 02/03/25
--- OUTSIDE RECORDS SUMMARY | 2025-05-30 10:22 | XMS_ITS | Encounter Summary ---
Author Organization [facility] Address [address] [place] [address] Care Team Providers Care Drier Operator Name Role Phone Andrew Lee MD Primary Care Provider [phone] Uli Salcedo Unavailable [phone] Rad Galvan MD Primary Care Provider [phone] Encounter Details Date Type Department Care Team (Late st Contact Info) Description 01/11/2025 Orders Only External Location [address] [place] [address] Uli Salcedo PA [address] [place], [place] [id number] Social History Tobacco Use Types Packs/Day Years [...] Description 06/24/2025 12:45 PM EDT Office Visit [facility] [address] [facility] [address] [address] [place] [phone] Elvin Schuler MD [address] [place] [address] documented as of this encounter [...] on filedocumented in this encounter Care Teams Drier Operator Relationship Specialty Start Date End Date Andrew Lee MD [address] [place] [address] [address] [place] [address] PCP - General 04/06/21 04/07/25 Rad Galvan MD [address] [place] [address] PCP - General 04/08/25 Uli Salcedo PA [address] [place] [address] Referring Physician 02/03/25 documented as of this encounter
--- OUTSIDE RECORDS SUMMARY | 2025-05-30 10:22 | XMS_ITS | Encounter Summary ---
Author Organization [facility] Address [address] [place] [address] Care Team Providers Care Net Front End Developer Name Role Phone Uli Salcedo Unavailable [phone] Rad Galvan MD Primary Care Provider [phone] Encounter Details Date Type Department Care Team [...] all 04/08/2025 11:00 AM FAHADT Bora Matta Moving or speaking so slowly that other people could have noticed? Or the opposite - being so fidgety or restless that you have been moving around a lot more than usual. Not at all 04/08/2025 11:00 AM EDT Ean Hays Thoughts that you would be better off or hurting yourself in some way Not at all 04/08/2025 11:00 AM FAHADT Michael Mtata Patient Health Questionnaire -9 Score 0 04/08/2025 [...] Description 06/24/2025 12:45 PM EDT Office Visit [facility] [place] [facility] [address] [place] [address] Elvin Schuler MD [address] [place] [phone] documented as of this encounter Visit Diagnoses [...] documented as of this encounter Care Teams Net Front End Developer Relationship Specialty Start Date End Date Rad Galvan MD [address] [place] [address] PCP - General 04/08/25 Uli Salcedo PA [address] [place] [address] Referring Physician 02/03/25 documented as of this encounter
--- OUTSIDE RECORDS SUMMARY | 2025-05-30 10:22 | XMS_ITS | Encounter Summary ---
Author Organization Address [address] [id number] Care Team Providers Care Tax Processor Name Role Phone Uli Salcedo Unavailable [phone] Rad Galvan MD Primary Care Provider [phone] Encounter Details Date Type Department Care Team (Late st Contact Info) Description 04/26/2025 Telephone [facility] [place] [address] [facility] [place] [address] Yaritza Johnson, RN [facility] [address] [place] [address] Social History Tobacco Use Types Packs/Day Years [...] Description 06/24/2025 12:45 PM EDT Office Visit [facility] [place] [facility] [address] [place] [address] Elvin Schuler MD [address] [place] [address] documented as of this encounter Visit Diagnoses [...] documented as of this encounter Care Teams Tax Processor Relationship Specialty Start Date End Date Rad Galvan MD [address] [place] [address] PCP - General 04/08/25 Uli Salcedo PA [address] [place] [address] Referring Physician 02/03/25 documented as of this encounter
--- OUTSIDE RECORDS SUMMARY | 2025-05-30 10:23 | XMS_ITS | Encounter Summary ---
Author Organization [facility] Address [address] [place] [address] Care Team Providers Care Paediatric Physiotherapist Name Role Phone Andrew Lee MD Primary Care Provider [phone] Uli Salcedo Unavailable [phone] Rad Galvan MD Primary Care Provider [phone] Encounter Details Date Type Department Care Team (Late st Contact Info) Description 04/07/2025 Telephone [facility] [place] [facility] [address] [facility] [place] [address] Elvin Schuler MD [address] [place] [address] Social History Tobacco Use Types [...] Description 06/24/2025 12:45 PM EDT Office Visit [facility] [place] [facility] [address] [place] [address] Elvin Schuler MD [address] [place] [address] documented as of this encounter Visit Diagnoses [...] documented as of this encounter Care Teams Paediatric Physiotherapist Relationship Specialty Start Date End Date Andrew Lee MD [address] [place] [address] [address] [place] [address] PCP - General 04/06/21 04/07/25 Rad Galvan MD [address] [place] [address] PCP - General 04/08/25 Uli Salcedo PA [address] [place] [address] Referring Physician 02/03/25 documented as of this encounter
== END 2025-05-26 23:59 | disposition home or self-care (01) ==
LOC: LAB.DROPOF 05-30 10:21
PROVIDERS: PCP Student in an Organized Health Care Education/Training Program; Visit Provider Student in an Organized Health Care Education/Training Program
DX: R05.9 Cough, unspecified (principal)
CPT/HCPCS: 87635

== ENCOUNTER 2025-05-26 21:11 | Observation (INO) | payer MEDICARE, SELFPAY ==
--- OUTSIDE RECORDS SUMMARY | 2025-03-30 09:45 | XMS_ITS | Encounter Summary ---
Author Organization [facility] Address [address] [place] [address] Care Team Providers Care Machine Splitter Name Role Phone Andrew Lee MD Primary Care Provider [phone] Uli Salcedo Unavailable [phone] Reason for Visit * Auth/Cert (Routine) Specialty Diagnoses / Procedures Referred By Contac t Referred To Contact Diagnoses Congestive heart failure, unspecified HF chronicity, unspecified heart failure type (CMS/HCC) Congestive heart failure, unspecified HF chronicity, unspecified heart failure type (CMS/HCC) [I50.9] Procedures OK TCAT IMPL WRLS P-ART PRS SNR L-T HEMODYN MNTR Cardiomems w/Right Heart Cath Brodie Carranza MD [address] [place] [address] Phone: tel: fax: [facility] [address] [place] [address] Phone: tel: Referral ID Status Reason Start Date Expiration Date Visits Re quested Visits Authorized [id number] 1 1 Encounter Details Date Type Department Care Team (Latest Contact Info) Description 03/30/2025 9:45 AM EDT - 03/30/2025 2:35 PM EDT Hospital Encounter [facility] [address] [place] [address] Brodie Carranza MD [address] [place] [phone] Congestive heart failure, unspecified HF chronicity, unspecified heart failure type (CMS/HCC) Discharge Disposition: Home or Self Care Social History Tobacco Use Types Packs/Day Years Used Date Smoking Tobacco: Former Passive Smoke Exposure: Never Smokeless Tobacco: Never Alcohol Use Standard Drinks/Week Comments Not Currently 0 (1 standard drink = 0.6 oz pur e alcohol) PHQ-2 Answer Date Recorded Patient Health Questionnaire-2 Score 3 02/18/2025 PHQ-9 Answer Date Recorded Patient Health Questionnaire-9 Score 14 02/18/2025 Comments Unknown Sex and Gender Information Value Date Recorded Sex Assigned at Not on file Legal Sex Female 7:16 PM EDT Gender Identity Not on file Sexual Orientation Not on file documented as of this encounter Last Filed Vital Signs Vital Sign Reading Time Taken Comments Blood Pressure 132/76 03/30/2025 1:10 PM EDT Pulse 70 03/30/2025 1:10 PM EDT Temperature 36.7 C (98.1 F) 03/30/2025 10:04 AM EDT Respiratory Rate 19 03/30/2025 1:10 PM EDT Oxygen Saturation 98% 03/30/2025 1:10 PM EDT Inhaled Oxygen Concentration - - Weight 90.9 kg (200 lb 6.4 oz) 03/30/2025 10:04 AM EDT Height 152.4 cm (5') 03/30/2025 10:04 AM EDT Body Mass Index 39.14 03/30/2025 10:04 AM EDT documented in this encounter Functional Status * Over the past 2 weeks, how often have you been bothered by any of the following problems? Question Answer Date of Assessment Author Little interest or pleasure in doing things Several days 02/18/2025 11:29 AM FAHADT Cady Barry Feeling down, depressed, or hopeless More than half the days 02/18/2025 11:29 AM EDT Cady Barry Patient Health Questionnaire-2 Score 3 02/18/2025 11:29 AM EDT Brian Barry * Question Answer Date of Assessment Author Trouble falling or staying asleep, or sleeping too much Nearly every day 02/18/2025 11:29 AM Cady Nunn Feeling tired or having little energy Nearly every day 02/18/2025 11:29 AM Cady Nunn Poor appetite or overeating Not at all 02/18/2025 11:29 AM Cady Nunn Feeling bad about yourself - or that you are a failure or have let yourself or your family down More than half the days 02/18/2025 11:29 AM Cady Nunn Trouble concentrating on things, such as reading the newspaper or watching television Nearly every day 02/18/2025 11:29 AM Cady Nunn Moving or speaking so slowly that other people could have noticed? Or the opposite - being so fidgety or restless that you have been moving around a lot more than usual. Not at all 02/18/2025 11:29 AM Cady Nunn Thoughts that you would be better off or hurting yourself in some way Not at all 02/18/2025 11:29 AM Joe Nunn a Patient Health Questionnaire-9 Score 14 02/18/2025 11:29 AM Brian Nunn * If you checked off any problems on this questionnaire so far, Question Answer Date of Assessment Author How difficult have these problems made it for you to do your work, take care of things at home, or get along with other people? Somewhat difficult 02/18/2025 11:29 AM Cady Nunn documented as of this encounter Medications at Time of Discharge allopurinol (Zyloprim) 100 MG tablet Take 1 tablet by mouth daily. 01/25/2025 aspirin 81 MG chewable tablet Chew 1 tablet daily. 30 tablet 2 03/30/2025 atorvastatin (Lipitor) 10 MG tablet Take 1 tablet by mouth daily. 01/25/2025 digoxin (Lanoxin) 125 MCG tablet Take 1 tablet by mouth daily. 01/25/2025 DULoxetine (Cymbalta) [address] capsule Take 1 capsule by mouth 1 time each day. 02/04/2025 Farxiga 10 MG tablet Take 1 tablet by mouth daily. fluticasone (Flonase) 50 MCG/ACT nasal spray INSTILL 2 SPRAYS INTO EACH NOSTRIL DAILY DIRECTED BY PROVIDER 04/23/2024 gabapentin (Neurontin) 600 MG tablet TAKE ONE TABLET BY MOUTH EVERY DAY MAY CAUSE DROWSINESS 02/04/2025 HumuLIN 70/30 (70-30) 100 UNIT/ML injection vial As of 03/30/25 35 units in the AM and 30 units in the PM 10/29/2024 isosorbide mononitrate ER (Imdur) 30 MG 24 hr tablet Take 1 tablet by mouth daily. 11/30/2024 loratadine (Claritin) 10 MG tablet Take 1 tablet by mouth daily. 01/25/2025 metoprolol succinate XL (Toprol-XL) 25 MG 24 hr tablet Take 1 tablet by mouth daily. 02/03/2025 nitroglycerin (Nitrostat) 0.[address] 1 tablet under the tongue every 5 minutes as needed for chest pain. NovoLOG FLEXPEN 100 UNIT/ML injection pen Inject 8 Units under the skin. 01/20/2025 Ozempic, 2 MG/DOSE, 8 MG/3ML solution pen-injector INJECT 2 MG SUBCUTANEOUSLY ONCE A WEEK DIRECTED 04/27/2024 pantoprazole (Protonix) 40 MG EC tablet Take 1 tablet by mouth 2 times a day. 01/25/2025 PHENobarbital (Luminal) 32.4 MG tablet take three tablets by mouth every night at bedtime 01/25/2025 potassium chloride CR (Klor-Con M20) 20 MEQ ER tablet Take 1 tablet by mouth twice a day. 01/25/2025 rOPINIRole (Requip) 2 MG tablet Take 1 tablet by mouth nightly. 01/25/2025 spironolactone (Aldactone) 25 MG tablet Take 1 tablet by mouth daily. 01/27/2025 traMADol (Ultram) 50 MG tablet TAKE ONE TABLET BY MOUTH EVERY 6 HOURS NEEDED FOR MODERATE TO SEVERE PAIN 02/11/2025 valsartan (Diovan) 40 MG tablet Take 1 tablet by mouth 2 times a day. Xarelto 20 MG tablet TAKE ONE TABLET BY MOUTH EVERY DAY FOR BLOOD THINNER 01/26/2025 bisoprolol (Zebeta) 5 MG tablet Take 1 tablet by mouth daily. 01/25/2025 04/08/20 bumetanide (Bumex) 1 MG tablet Take 2 tablets by mouth daily. 06/03/20 25 documented as of this encounter Miscellaneous Notes * Beth Shah - Innocent, Clau Anne RN - 03/30/2025 1:21 PM EDT Images from the original note were not included. 323 Right Heart Catheterization A catheter is inserted into the neck or leg area to check the function of the heart and the flow ofblood through the heart. The catheter is placed into a vein. Before the procedure ?? Have your medicines with you in the hospital. Let the staff know of any allergies you have. ?? Don't eat or drink anything after midnight the night before the procedure. During the procedure ?? We will give you a local anesthetic to help stop the pain at the site where the catheter goes in. ?? The doctor will insert a catheter into a blood vessel in your neck or groin. After the procedure and home care ?? You will remain in bed for 1-4 hours after the heart cath. ?? You must have someone with you to drive you home from the hospital. ?? You may shower 24 hours after the procedure. ?? Wound care: o Carefully wash the incision site with soap and water. o Then put on a clean bandage. o Change the bandage any time it gets wet or dirty. o If you cannot reach the bandage, ask someone else to help you change it. ?? You may return to your usual diet when you get home. Seek care right away if you have any of the following ?? The bruise where the catheter went into your neck or groin gets bigger or swollen. ?? The place where the catheter went in starts to bleed. Use your hand to put firm pressure on the bandage. Hold this pressure and call to tell the doctor that you are bleeding. If you cannot stop the bleeding, call 911 or 0 (multi sensor operator). This is an emergency. Ask for an ambulance to take [facility]. Do not drive yourself! Call the doctor if you have any of the following ?? Your neck incision is swollen, red, or leaks fluid that smells bad. ?? You have a temperature over 101 degrees F. ?? You have chills, a cough, or feel week and achy. ?? Your skin is itchy, swollen, or have a rash. Your medicine may be causing these symptoms. This may mean you are allergic to your medicine. Call the Cardiology Clinic at if you have questions or concerns about your right heart catheterization, illness or medicines. Nights and weekends or holidays, call and ask for the Technical Administrator restoration technician. * Pre-Procedure Note - Grant Rice MD - 03/30/2025 9:58 AM EDT Images from the original note were not included. CARDIOLOGY SEDATION PRE-PROCEDURAL ASSESSMENT AND SEDATION PLAN OF CARE Indication for procedure: The encounter diagnosis was Congestive heart failure, unspecified HF chronicity, unspecified heart failure type (CMS/HCC). Planned Procedure: RHC + CardioMems Relevant past medical history: Heart failure Previous problems with surgery, anesthesia or sedation: No Previous family history or problems with anesthesia or sedation: No Relevant Labs: Lab Results Component Value Date CREATININE 1.28 (H) 02/18/2025 EGFR 46.0 02/18/2025 Planned Sedation/Anesthesia: Moderate Airway assessment: normal Mallampati Score: II (hard and soft palate, upper portion of tonsils anduvula visible) ASA: ASA 3 - Patient with moderate systemic disease with functional limitations Directed physical examination: There were no vitals filed for this visit. GENERAL: Awake, alert, NAD HEENT: NCAT NECK: No appreciable JVD CARDIAC: Regular rate, regular rhythm, normal S1/S2, no m/r/g, 2+ radial pulses bilaterally PULM: CTAB without increased work of breathing ABD: Soft, NT, ND EXT: Warm and well perfused, no LE edema SKIN: No rashes or lesions NEURO: A&Ox4, moving all extremities spontaneously Benefits, risks and alternatives of procedure and planned sedation have been discussed with the patient and/or their medical office representative. All questions answered and they agree to proceed. Grant Rice MD Tin Pourer * H&P - Grant Rice MD - 03/30/2025 9:55 AM EDT Images from the original note were not included. CARDIOLOGY HISTORY & PHYSICAL SUBJECTIVE History Of Present Illness Sara Edwards is a 69 y.o. female with a past medical history as listed below who presents today for planned RHC + CardioMems for indication: heart failure. Patient was last seen in clinic on 02/18/2025. Since that time there have been no significant interval events. They deny any recent chest pain, shortness of breath, orthopnea, leg swelling, progressive fatigue, syncope. No contrast allergy. Home anticoagulation/antiplatelet: Xarelto Review of Systems 14 point ROS reviewed and is otherwise negative except that which is mentioned in the HPI. Past Medical History Medical History[1] Surgical History Surgical History[2] Family History Family History[3] Social History Social History Socioeconomic History Marital status: Spouse name: Not on file Number of children: Not on file Years of education: Not on file Highest education level: Not on file Occupational History Not on file Tobacco Use Smoking status: Former Passive exposure: Never Smokeless tobacco: Never Vaping Use Vaping status: Never Used Substance and Sexual Activity Alcohol use: Not Currently Drug use: Never Sexual activity: Not on file Other Topics Concern Not on file Social History Narrative Not on file Social Drivers of Health Financial Resource Strain: Not on file Food Insecurity: Not on file Transportation Needs: Not on file Physical Activity: Not on file Stress: Not on file Social Connections: Not on file Intimate Partner Violence: Not on file Housing Stability: Not on file Allergies Ritalin [methylphenidate], Metoclopramide, and Promethazine Home Medications Current Outpatient Medications Medication Instructions allopurinol (ZYLOPRIM) 100 mg, Daily atorvastatin (LIPITOR) 10 mg, Daily bisoprolol (ZEBETA) 5 mg, Daily bumetanide (BUMEX) 2 mg, Oral, Daily digoxin (LANOXIN) 125 mcg, Daily DULoxetine (CYMBALTA) 30 mg, ZZ Daily RT Farxiga 10 mg, Oral, Daily fluticasone (Flonase) 50 MCG/ACT nasal spray INSTILL 2 SPRAYS INTO EACH NOSTRIL DAILY DIRECTED BY PROVIDER gabapentin (Neurontin) 600 MG tablet TAKE ONE TABLET BY MOUTH EVERY DAY MAY CAUSE DROWSINESS HumuLIN 70/30 (70-30) 100 UNIT/ML injection vial INJECT 100 UNITS SUBCUTANEOUSLY EVERY DAY IN THE MORNING AND INJECT 60 UNITS IN THE EVENING isosorbide mononitrate ER (IMDUR) 30 mg, Daily loratadine (CLARITIN) 10 mg, Daily metoprolol succinate XL (Toprol-XL) 25 MG 24 hr tablet NovoLOG FLEXPEN 8 Units Ozempic, 2 MG/DOSE, 8 MG/3ML solution pen-injector INJECT 2 MG SUBCUTANEOUSLY ONCE A WEEK DIRECTED pantoprazole (PROTONIX) 40 mg, 2 times daily PHENobarbital (Luminal) 32.4 MG tablet take three tablets by mouth every night at bedtime potassium chloride CR (Klor-Con M20) 20 MEQ ER tablet 20 mEq, 2 times daily rOPINIRole (REQUIP) 2 mg, Nightly spironolactone (ALDACTONE) 25 mg, Daily traMADol (Ultram) 50 MG tablet TAKE ONE TABLET BY MOUTH EVERY 6 HOURS NEEDED FOR MODERATE TO SEVERE PAIN Xarelto 20 MG tablet TAKE ONE TABLET BY MOUTH EVERY DAY FOR BLOOD THINNER OBJECTIVE Physical Exam There were no vitals taken for this visit. GENERAL: Awake, alert, NAD HEENT: NCAT NECK: No appreciable JVD CARDIAC: Regular rate, regular rhythm, normal S1/S2, no m/r/g, 2+ radial pulses bilaterally PULM: CTAB without increased work of breathing ABD: Soft, NT, ND EXT: Warm and well perfused, no LE edema SKIN: No rashes or lesions NEURO: A&Ox4, moving all extremities spontaneously PSYCH: Normal mood and affect ASSESSMENT/PLAN Sara Edwards is a 69 y.o. female who presents today for planned Right heart catheterization + CardioMems implantation for indication: heart failure. -- Proceed with planned procedure. Consent obtained at bedside. Pre-sedation documentation completed. -- Access plan: R IJ (versus R Fem) -- Relevant labs: Reviewed -- Anticoagulation/antiplatelet plan: Sabrina Rice MD Tin Pourer [1] Past Medical History: Diagnosis Date CHF (congestive heart failure) (CMS/HCC) Diabetes mellitus (CMS/HCC) GERD (gastroesophageal reflux disease) Hyperlipemia Hypertension Hyperuricemia Personal history of other diseases of the digestive system History of hiatal hernia Restless leg syndrome Seizures (CMS/HCC) Unspecified convulsions (CMS/HCC) Seizures [2] Past Surgical History: Procedure Laterality Date APPENDECTOMY N/A Appendectomy from [facility] GALLBLADDER SURGERY N/A Anastomosis Of Gallbladder from [facility] TONSILLECTOMY N/A Tonsillectomy from [facility] [3] Family History Problem Relation Name Age of Onset Cardiac disorder Other Diabetes Other Hypertension Other Cosigned by Brodie Carranza MD at 03/30/2025 12:10 PM EDT Associated attestation - Brodie Carranza MD - 03/30/2025 12:10 PM EDT I saw and evaluated the patient with the resident/fellow. I discussed the case with the resident/fellow and agree with the findings and plan as documented. documented in this encounter Plan of Treatment Upcoming Encounters Date Type Department Care Team (Late st Contact Info) Description 06/24/2025 12:45 PM EDT Office Visit [facility] [address] [place] [address] Elvin Schuler MD [address] [place] [address] documented as of this encounter Procedures Procedure Name Priority Date/Time Associated Diagnosis Comments CARDIOMEMS W/RIGHT HEART CATH Routine 03/30/2025 11:39 AM EDT Congestive heart failure, unspecified HF chronicity, unspecified heart failure type (CMS/HCC) POCT CO-OXIMETRY MIXED VENOUS UNSOLICITED RESULTS Routine 03/30/2025 11:23 AM EDT POCT CO-OXIMETRY, VENOUS UNSOLICITIED RESULTS Routine 03/30/2025 11:19 AM EDT documented in this encounter Results * CARDIOMEMS W/RIGHT HEART CATH (03/30/2025 11:39 AM EDT) Anatomical Region Laterality Modality Other Addenda Addendum by Brodie Carranza MD on 04/01/2025 2:18 PM EDT Conclusion: 1. Mildly elevated right and normal left-sided filling pressures 2. 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 Preserved cardiac output 4. Successful selective posterior-inferior segmental pulmonary angiography 5. Successful placement of CardioMEMs sensor in the posterior-inferior segmental pulmonary artery. Recommendations: 1. Add ASA 81mg Daily x 1 month to Xarelto 2. Heart failure management as per Dr. Schuler Procedure Details Right Heart Catheterization/CardioMEMs Placement Attending: Brodie Carranza MD Indication for procedure: Chronic Diastolic Heart Failure with difficult to control volume status. Operative Procedures: Right heart catheterization Insertion of pressure monitoring device into the left pulmonary artery, percutaneous approach. ([id number]) Access: Right Jugular vein 11Fr Senath Sheath Procedure: After obtaining a consent, the patient was brought into the catheterization laboratory, placed on the table and the next was prepped and draped in a sterile fashion. Next, the skin overlaying right jugular vein was anesthetized using 1% Lidocaine. Subsequently, utilizing an 18gauge Cook needle, right jugular vein was accessed utilizing ultrasound guidance. Using the J-tipped wire included in the access kit, which was inserted through the needle, an 11Fr Senath sheath was inserted over the wire, subsequently blood was aspirated and the sheath flushed. Subsequently a 7 Tristanian wedge catheter was passed through the Senath sheath into the RA, RV and PA with measurement pressures and chambers along with obtaining pressure measured and PCWP. Additionally small blood sample was obtained from the PA to calculate assumed Uriel cardiac output and index . After obtaining hemodynamic measurements, the wedge catheter was flipped to left pulmonary artery over table wire and wedged. Subsequently 3-5 cc contrast was injected to perform subsegmental pulmonary arteriography in order to map for placement of CardioMEMS. Next the wedge catheter was exchanged over the long steelcore wire, which was wiped and used to place CardioMEMS catheter placed to device in the inferior posterior branches of left pulmonary artery. Next the catheter and 300cm steelcore wire were withdrawn and which catheter was placed back in into the right pulmonary artery for calibration. Ultimately the Senath sheath was withdrawn with patient exhaling during the maneuver and 10 minutes of manual pressure attained hemostasis. Ultimately patient was transferred back to the [facility] area in stable condition without immediate complications. Post-operative instructions: 20 minute bed rest with monitoring of venous puncture site for bleeding. Prognosis: Stable Resting Hemodynamics: RA: 13 mmHg PA: 36/17 (23) mmHg PCW: 12 mmHg Oxymetry: SVC: 64% PA: 59% Ao: 90% Uriel C.O.: 4.62 L/min; C.I.: 2.5 L/min/m2 Selective posterior-inferior pulmonary angiography: The vessel appears to be normal caliber of more than 7mm without evidence of acute, subacute or chronic thromboembolic disease. There is no evidence of stenosis. Hemodynamic Data Pressures Phase: Resting Right RA Mean: 13 mmHg RV: 36/5 mmHg Pulmonary PA: 36/17 (23) mmHg PCW Mean: 12.0 mmHg Marianna: 1.5 Hemodynamic Data Saturations Phase: Resting Saturations PA: 59 % Elvin Schuler MD CV CARDIAC CATH PROCEDURES Edited Result - Final * POCT Co-Oximetry Mixed Venous (03/30/2025 11:23 AM EDT) [facility] POCT Oxyhemoglobin, Mixed Venous 59.1 % 03/30/2025 11:24 AM EDT [facility] Paper Winder ID Eva Hernandez 03/30/2025 11:24 AM EDT HEALTHCARE LAB Device ID [id number] 1 03/30/2025 11:24 AM EDT [facility] POCT Sample Site PA 03/30/2025 11:24 AM EDT HEALTHCARE LAB POCT Total Hemoglobin 11.8 11.2 - 15.7 g/dL 03/30/2025 11:24 AM EDT HEALTH[facility]ARE [facility] 03/30/2025 11:2 3 AM EDT 03/30/2025 11:24 AM EDT us Brodie Carranza MD LAB POINT OF CARE TEST DOCKED DEVICE UNSOLICITED RESULTS Final Result [facility] [address] [place] [address] * POCT CO-Oximitry, Venous (03/30/2025 11:19 AM EDT) POCT OXYHEMOGLOBIN, VENOUS 64 40 - 70 % 03/30/2025 11:20 AM EDT [facility]ALTH[facility]ARE [facility] Paper Winder ID Eva Hernandez 03/30/2025 11:20 AM EDT HEALTHCARE LAB Device ID [id number] 1 03/30/2025 11:20 AM EDT HEALTH[facility]ARE LAB POCT Sample Site SVC 03/30/2025 11:20 AM EDT [facility]ALTH[facility]ARE [facility] POCT Total Hemoglobin 12.1 11.2 - 15.7 g/dL 03/30/2025 11:20 AM EDT HEALTHCARE LAB Venous blood specimen / Unknown 03/30/2025 11:19 AM EDT 03/30/2025 11:20 AM EDT Brodie Carranza MD LAB POINT OF CARE TEST DOCKED DEVICE UNSOLICITED RESULTS Final Result Performing Organization Address City/State/[facility] Co de Phone Number HEALTHCARE [facility] [address] [place] [address] documented in this encounter Visit Diagnoses Diagnosis Congestive heart failure, unspecified HF chronicity, unspecified heart failure type (CMS/HCC) Congestive heart failure, unspecified HF chronicity, unspecified heart failure type (CMS/HCC) documented in this encounter Admitting Diagnoses Diagnosis Congestive heart failure (CMS/HCC) Congestive heart failure, unspecified documented in this encounter Active and Recently Administered Medications Times are shown in EDT. PRN Medication Order 03/28/2025 03/29/2025 03/30/2025 fentaNYL (Sublimaze) injection (CANCELED) As needed, Starting on Fri03/30/25 at 1059, Until Fri03/30/25 at 1154, Routine, Intraprocedure 1059 (Given - Provid er: Eva Hernandez RN) lidocaine (Xylocaine) 1 % injection (CANCELED) As needed, Starting on Fri03/30/25 at 1111, Until Fri03/30/25 at 1154, Routine, Intraprocedure 1111 (Given - Provid er: Grant Rice MD) midazolam (Versed) injection (CANCELED) As needed, Starting on Fri03/30/25 at 1059, Until Fri03/30/25 at 1154, Routine, Intraprocedure 1059 (Given - Provid er: Eva Hernandez, JANET) documented in this encounter Additional Health Concerns Assessment Noted Time PHQ-9 Depression Total Score: 14 02/18/2 025 11:29 AM EDT A fall risk assessment has been complete d for the patient 02/18/2025 11:29 AM EDT A Body Mass Index follow-up plan has been documented for the patient 03/30/2025 1:22 PM EDT documented as of this encounter Care Teams Machine Splitter Relationship Specialty Start Date End Date Andrew Lee MD [address] [place] [address] [address] [place] [address] PCP - General 04/06/21 04/07/25 Uli Salcedo PA [address] [place] [address] Referring Physician 02/03/25 documented as of this encounter
--- OUTSIDE RECORDS SUMMARY | 2025-03-30 10:40 | XMS_ITS | Encounter Summary ---
Author Organization [facility] Address [address] [place] [address] Care Team Providers Care Business Project Manager Name Role Phone Andrew Lee MD Primary Care Provider [phone] Uli Salcedo Unavailable [phone] Reason for Visit * Auth/Cert (Routine) Specialty Diagnoses / Procedures Referred By Contac t Referred To Contact Diagnoses Congestive heart failure, unspecified HF chronicity, unspecified heart failure type (CMS/HCC) Congestive heart failure, unspecified HF chronicity, unspecified heart failure type (CMS/HCC) [I50.9] Procedures [place] TCAT IMPL WRLS P-ART PRS SNR L-T HEMODYN MNTR Cardiomems w/Right Heart Cath Brodie Carranza MD [address] [place] [address] Phone: tel: fax: Cardiac Box Truck Owner Operator [address] [place] [address] Phone: tel: Referral ID Status Reason Start Date Expiration Date Visits Re quested Visits Authorized [id number] 1 1 Encounter Details Date Type Department Care Team (Late st Contact Info) Description 03/30/2025 10:40 AM EDT - 03/30/2025 12:00 PM EDT Surgery Cardiac Box Truck Owner Operator [address] [place] [address] Brodie Carranza MD [address] [place] [phone] Cardiomems w/Right Heart Cath [02857 (CPT )] Surgery Details Date/Time Status Location OR Service Patient Class Case Class Case Type Trauma Case? 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 04 [facility] Outpatient Surgery E-Elect jennifer Panel 1 Procedure LRB Anes Op Region Wound Class Comments Cardiomems w/Right Heart Cath N/A Surgeon Surgeon Role Service Panel Grant Rice MD Fellow Cardiovascular 1 Brodie Carranza MD Primary Cardiovascular 1 documented in this encounter Social History Tobacco Use Types Packs/Day Years [...] Sign Reading Time Taken Comments Blood Pressure 131/85 03/30/2025 12:00 PM EDT Pulse 71 03/30/2025 12:00 PM EDT Temperature 36.7 C (98.1 F) 03/30/2025 10:04 AM EDT Respiratory Rate 20 03/30/2025 12:00 PM EDT Oxygen Saturation 99% 03/30/2025 12:00 PM EDT Inhaled Oxygen Concentration - - [...] doing things Several days 02/18/2025 11:29 AM Cady Nunn Feeling down, depressed, or hopeless More than half the days 02/18/2025 11:29 AM Cady Nunn Patient Health Questionnaire-2 Score 3 02/18/2025 11:29 AM Brian Nunn * Question Answer Date of Assessment Author [...] tablet Take 2 tablets by mouth daily. 04/26/20 documented as of this encounter Miscellaneous Notes [...] stop the bleeding, call 911 or 0 (hydraulic operator). This is an emergency. Ask for an ambulance to take you to the [facility] or clinic. Do not drive yourself! Call [...] or holidays, call and ask for the [employer] ribbon hanking machine operator. * Pre-Procedure Note - Grant Rice MD [...] been discussed with the patient and/or their customer support representative. All questions answered and they agree to proceed. Grant Rice MD Civil Service Clerk * H&P - Grant Rice MD - [...] Reviewed -- Anticoagulation/antiplatelet plan: Sabrina Rice MD Civil Service Clerk [1] Past Medical History: Diagnosis Date CHF (congestive heart failure) (CMS/HCC) Diabetes mellitus (CMS/HCC) GERD (gastroesophageal reflux disease) Hyperlipemia Hypertension Hyperuricemia Personal history of other diseases of the digestive system History of hiatal hernia Restless leg syndrome Seizures (CMS/HCC) Unspecified convulsions (CMS/HCC) Seizures [2] Past Surgical History: Procedure Laterality Date APPENDECTOMY N/A Appendectomy from [employer] GALLBLADDER SURGERY N/A Anastomosis Of Gallbladder from [employer] TONSILLECTOMY N/A Tonsillectomy from [employer] [3] Family History Problem Relation Name Age [...] Description 06/24/2025 12:45 PM EDT Office Visit [facility] [address] [facility]. [address] [place] [address] Elvin Schuler MD [address] [place] [address] documented as of this encounter Procedures Procedure [...] into the left pulmonary artery, percutaneous approach. ([id number]) Access: Right Jugular vein 11Fr Rawson Sheath Procedure: After obtaining a consent, the [...] was inserted through the needle, an 11Fr Rawson sheath was inserted over the wire, subsequently blood was aspirated and the sheath flushed. Subsequently a 7 Slovenian wedge catheter was passed through the Rawson sheath into the RA, RV and PA [...] right pulmonary artery for calibration. Ultimately the Rawson sheath was withdrawn with patient exhaling during the maneuver and 10 minutes of manual pressure attained hemostasis. Ultimately patient was transferred back to [facility] area in stable condition without immediate complications. [...] Saturations Phase: Resting Saturations PA: 59 % us Elvin Schuler MD CV CARDIAC CATH PROCEDURES Edited Result - Final * POCT Co-Oximetry Mixed Venous (03/30/2025 11:23 AM EDT) [facility] POCT Oxyhemoglobin, Mixed Venous 59.1 % 03/30/2025 11:24 AM EDT [facility] Replanting Machine Operator ID [email or web address] 03/30/2025 11:24 AM EDT [facility] Device ID [id number] 1 03/30/2025 11:24 AM EDT HEALTH[facility]ARE [facility] POCT Sample Site PA 03/30/2025 11:24 AM EDT [facility] POCT Total Hemoglobin 11.8 11.2 - 15.7 g/dL 03/30/2025 11:24 AM EDT [facility] 03/30/2025 11:2 3 AM EDT 03/30/2025 11:24 AM EDT Brodie Carranza MD LAB POINT OF CARE TEST DOCKED DEVICE UNSOLICITED RESULTS Final Result Performing Organization Address City/[facility] Co de Phone Number HEALTHCARE LAB [address] [place] [address] * POCT CO-Oximitry, Venous (03/30/2025 11:19 AM EDT) [facility] POCT OXYHEMOGLOBIN, VENOUS 64 40 - 70 % 03/30/2025 11:20 AM EDT [facility]ARE [facility] Replanting Machine Operator ID Eva Hernandez 03/30/2025 11:20 AM EDT HEALTHCARE LAB Device ID [id number] 1 03/30/2025 11:20 AM EDT HEALTHCARE LAB POCT Sample Site SVC 03/30/2025 11:20 AM EDT HEALTH[facility]ARE LAB POCT Total Hemoglobin 12.1 11.2 - 15.7 g/dL 03/30/2025 11:20 AM EDT HEALTH[facility]ARE LAB Venous blood specimen / Unknown 03/30/2025 11:19 AM EDT 03/30/2025 11:20 AM EDT Brodie Carranza MD LAB POINT OF CARE TEST DOCKED DEVICE UNSOLICITED RESULTS Final Result Performing Organization Address [facility] de Phone Number HEALTHCARE LAB [address] [place] [address] documented in this encounter Visit Diagnoses Diagnosis Congestive heart failure, unspecified HF chronicity, unspecified heart failure type (CMS/HCC) Congestive heart failure, unspecified HF chronicity, unspecified heart failure type (CMS/HCC) documented in this encounter Admitting Diagnoses Diagnosis Congestive heart failure (CMS/HCC) Congestive heart failure, unspecified documented in this encounter Administered Medications Inactive Administered Medications - up to 3 most recent administrations Medication Order MAR Action Action Date Dose Rate Site fentaNYL (Sublimaze) injection As needed, Starting on Fri03/30/25 at 1059, Until Fri03/30/25 at 1154, Routine, Intraprocedure Given 03/30/2025 10:59 AM EDT 25 mcg lidocaine (Xylocaine) 1 % injection As needed, Starting on Fri03/30/25 at 1111, Until Fri03/30/25 at 1154, Routine, Intraprocedure Given 03/30/2025 11:11 AM EDT 5 mL Right Internal Jugular midazolam (Versed) injection As needed, Starting on Fri03/30/25 at 1059, Until Fri03/30/25 at 1154, Routine, Intraprocedure Given 03/30/2025 10:59 AM EDT 1 mg documented in this encounter Active and Recently [...] (Given - Provid er: Eva Hernandez RN) documented in this encounter Additional Health Concerns Assessment Noted Time PHQ-9 Depression Total Score: 14 025 11:29 AM EDT A fall risk assessment has been complete d for the patient 02/18/2025 11:29 AM EDT A Body Mass Index follow-up plan has been documented for the patient 03/30/2025 1:22 PM EDT documented as of this encounter Care Teams Business Project Manager Relationship Specialty Start Date End Date Andrew Lee MD [address] [place] [address] #1 #1 [place] [address] PCP - General 04/06/21 04/07/25 Uli Salcedo PA [address] [place] [address] Referring Physician 02/03/25 documented as of this encounter
--- OUTSIDE RECORDS SUMMARY | 2025-04-08 11:00 | XMS_ITS | Encounter Summary ---
Author Organization [facility] Address [address] [place] [address] Care Team Providers Care Field Marketer Name Role Phone Uli Salcedo Unavailable [phone] Rad Galvan MD Primary Care Provider [phone] Encounter Details Date Type Department Care Team (Late st Contact Info) Description 04/08/2025 11:00 AM EDT Office Visit [facility] [place] [address] [facility] [place] [address] Elvin Schuler MD [address] [place] [address] Chronic systolic congestive heart failure (CMS/HCC) (Primary [...] EDT Ean Ray Feeling tired or having anita le energy Not at all 04/08/2025 11:00 [...] from the original note were not included. [facility] Sara Edwards is a 69 y.o. female who presents today for follow up with Dr Schuler for chronic systolic heart failure . She has a long standing history of heart failure which is felt to be familial in nature and was diagnosed back in 2014. She says she initially responded to medical therapy but had worsening of her function later. 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 The patient is diabetic on insulin and uses Ozempic as well. The patient reports sub-optimal quality of life from her heart failure. She does not remember that she felt better after receiving CCM device. She is frequently tired with daily activities and has dyspnea with housework. She doesnot exercise. Last echocardiogram from 01/11/2025 reported the following: LVEF 30%; moderate mitral regurgitation (eccentric and posteriorly directed). Left heart catheterization from 07/05/2024 showedmild disease in several vessels (20-40% severity). Although she is tolerating HF medical therapy, she states that Entresto was stopped in the past due to the concern that it was worsening her kidney function. Recent dcr was 1.3, she is tolerating current therapy and has not required any extra diuretics. Her Ccm was adjusted and she is doing better. She still gets short of breath and fatigued withstrenuous or prolonged exertion. RHC and CardioMems implant [...] to follow up closely with cardiology at [place]. A total time of 40 minutes was [...] Procedure Laterality Date APPENDECTOMY N/A Appendectomy from [facility] GALLBLADDER SURGERY N/A Anastomosis Of Gallbladder from [facility] TONSILLECTOMY N/A Tonsillectomy from [facility] [3] Current Outpatient Medications Medication Sig Dispense [...] Description 06/24/2025 12:45 PM EDT Office Visit [facility] [place] [address] [place] [address] Elvin Schuler MD [address] [place] [address] documented as of this encounter Procedures Procedure Name Priority Date/Time Associated Diagnosis Comments BASIC METABOLIC PANEL, PLASMA Routine 04/08/2025 1:05 PM EDT Chronic systolic congestive heart failure (CMS/HCC) documented in this encounter Results * (ABNORMAL) Basic Metabolic Panel, Plasma (04/08/2025 1:05 PM EDT) Glucose, Plasma 116(H) 74 - 99 mg/dL 04/08/2025 1:05 PM EDT [facility] BUN, Plasma 23 8 - 23 mg/dL 04/08/2025 1:05 PM EDT [facility] Creatinine, Plasma 1.04 0.60 - 1.10 mg/dL 04/08/2025 1:05 PM EDT [facility] BUN/Creatinine Ratio 22 04/08/2025 1:05 PM EDT [facility] Sodium, Plasma 133(L) 136 - 145 mmol/L 04/08/2025 1:05 PM EDT [facility] Potassium, Plasma 04/08/2025 1:05 PM EDT [facility] Comment: Hemolyzed Chloride, Plasma 99 97 - 107 mmol/L 04/08/2025 1:05 PM EDT [facility] CO2, Plasma 24 22 - 29 mmol/L 04/08/2025 1:05 PM EDT [facility] Anion Gap 10 6 - 16 mmol/L 04/08/2025 1:05 PM EDT [facility] Total Calcium, Plasma 9.6 8.9 - 10.2 mg/dL 04/08/2025 1:05 PM EDT [facility] eGFRcr 59.0 mL/min/1.7 3m*2 04/08/2025 1:05 PM EDT [facility] Comment:Reported eGFRcr in m L/min/1.73m2 is based the CKD-EPI 2020 equation that does not use a race coefficient. Blood Venous blood specimen / Unknown 04/08/2025 12:36 PM EDT us Chika Orellana PERIANESTHESIA NURSE LAB BLOOD ORDERABLES Final Result [facility] [address] [place] [address] documented in this encounter Visit Diagnoses Diagnosis [...] documented as of this encounter Care Teams Field Marketer Relationship Specialty Start Date End Date Rad Galvan MD [address] [place] [address] PCP - General 04/08/25 Uli Salcedo PA [address] [place] [address] Referring Physician 02/03/25 documented as of this encounter
[2025-05-26] VITALS (8 sets, daily range): BP systolic 118–147; BP diastolic 46–73; PULSE 70–90; RESP 15–26; TEMP 37.1; O2SAT 95–100; BMI 37.8
--- NOTE | 2025-05-26 21:02 | CT_ITS ---
PROCEDURE INFORMATION: Exam: CT Head Without Contrast Exam date and time: 05/26/2025 9:51 PM Age: 70 years old Clinical indication: Pain; Headache; Additional info: Worse headache TECHNIQUE: Imaging protocol: Computed tomography of the head without contrast. Radiation optimization: All CT scans at this facility use at least one of these dose optimization techniques: automated exposure control; mA and/or kV adjustment per patient size (includes targeted exams where dose is matched to clinical indication); or iterative reconstruction. COMPARISON: CT HEAD/BRAIN WO CON 01/23/2025 12:12 PM FINDINGS: Brain: Normal appearing brain parenchyma without intraparenchymal hemorrhage and normal donaldson-white matter differentiation/no obvious acute ischemic stroke. No intra-or extra-axial fluid collection, no supra-or infratentorial mass, no mass effect or midline shift. Cerebral ventricles: Ventricles, sulci and basal cisterns are normal in size without hydrocephalus. Paranasal sinuses: [id number] chronic mucoperiosteal thickening in the visualized paranasal sinuses. Mastoid air cells: No mastoid effusion. Bones: Visualized skull bones are grossly normal. Soft tissues: NA IMPRESSION: 1. No evidence of an acute intracranial hemorrhage, mass lesion or obvious acute ischemic infarction. 2. Subacute/chronic sinusitis.
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
--- NOTE | 2025-05-26 21:05 | ECG_ITS ---
APPROVED REPORT Exam: Resting ECG HR:71 bpm ECG Measurements Heart Rate 71 AXES QRSd 144 QRS 207 QT 410 T 55 QTc 433 Conclusion Paced at a rate of 71 bpm. No acute STEMI Electronically signed by : MARY GUERRERO, 05/29/2025 13:02:01
[2025-05-26 21:11] LABS: Hematocrit 37.6 % (37.0-47.0); Hemoglobin 12.5 g/dL (12.2-16.2); Immature Granulocytes % 0.6 %; Mean Corpuscular HGB Conc 33.2 g/dL (31.8-35.4); Mean Corpuscular Hemoglobin 33.7 pg (27.0-31.2); Mean Corpuscular Volume 101.3 fl (81-99); Nucleated Red Blood Cells % 0 %; Platelet Count 194 K/mm3 (142-424); Red Blood Count 3.71 M/mm3 (4.20-5.40); Red Cell Distribution Width-SD 60.9 fL; White Blood Count 5.1 K/mm3 (4.8-10.8)
[2025-05-26 21:14] LABS: VBG HCO3 28.8 mmol/L (23-30); VBG PH 7.34 mmol/L (7.31-7.41); VBG PO2 37.3 mmol/L (28-40)
[2025-05-26 21:18] LABS: Lactate Venous 2.7 mmol/L (0.4-2.0); VBG PCO2 54.2 mmol/L (35-51)
[2025-05-26] MEDS: IPRATROPIUM/ALBUTEROL 3 ML NEB 20 ML IH (21:21)
[2025-05-26 21:23] LABS: Chloride 94 mmol/L (98-107)
--- NOTE | 2025-05-26 21:23 | CT_ITS ---
PROCEDURE INFORMATION: Exam: CTA Chest With Contrast Exam date and time: 05/26/2025 10:01 PM Age: 70 years old Clinical indication: Shortness of breath; Additional info: SOA, syncope TECHNIQUE: Imaging protocol: Computed tomographic angiography of the chest with contrast. Exam focused on the arteries. 3D rendering (Not supervised by radiologist): MIP and/or 3D reconstructed images were created by the technologist. Radiation optimization: All CT scans at this facility use at least one of these dose optimization techniques: automated exposure control; mA and/or kV adjustment per patient size (includes targeted exams where dose is matched to clinical indication); or iterative reconstruction. Contrast material: ISOVUE; Contrast volume: 70 ml; Contrast route: INTRAVENOUS (IV); COMPARISON: CR XR CHEST 2V 04/13/2025 10:31 PM FINDINGS: Tubes, catheters and devices: Similar pacemakers with multiple leads. Pulmonary arteries: No central or segmental pulmonary arterial intraluminal filling defects identified. Aorta: Unremarkable. No aortic aneurysm. No aortic dissection. Thyroid: Heterogeneous thyroid with 1.0 cm left thyroid lobar hypodense nodule/cyst. Lungs: Bilateral interstitial prominence with pulmonary vasculature redistribution. Aisha B-lines. Pleural spaces: No pneumothorax. No pleural effusion. Heart: Unremarkable. No cardiomegaly. No pericardial effusion. Lymph nodes: Mediastinal and hilar calcified lymph nodes. No lymphadenopathy. Bones/joints: Unremarkable. No acute fracture. Soft tissues: Unremarkable. IMPRESSION: 1. No central or segmental pulmonary arterial embolism identified. 2. CHF/pulmonary edema. 3. Heterogeneous thyroid with probable left lobar hypodense nodule/cyst. Can be further evaluated with nonurgent ultrasound as clinically indicated. COMMENTS: Consistent with the [employer]'s Incidental Findings Committee white paper (J Am Wilfredo Radiol 2015): In patients aged 35 years and older with an incidental thyroid nodule equal to or greater than 1.[address], MRI or extrathyroidal US, further evaluation with dedicated thyroid US is recommended for patients with normal life expectancy and without comorbidities. For smaller nodules without suspicious features, no further evaluation or follow up is recommended.
--- NOTE | 2025-05-26 21:23 | CT_ITS ---
PROCEDURE INFORMATION: Exam: CTA Head With Contrast, Arteriography Exam date and time: 05/26/2025 9:56 PM Age: 70 years old Clinical indication: Pain; Headache; Additional info: Worst headache of life, syncope TECHNIQUE: Imaging protocol: Computed tomographic angiography of the head with contrast. Exam focused on the arteries. 3D rendering (Not supervised by radiologist): MIP and/or 3D reconstructed images were created by the technologist. Radiation optimization: All CT scans at this facility use at least one of these dose optimization techniques: automated exposure control; mA and/or kV adjustment per patient size (includes targeted exams where dose is matched to clinical indication); or iterative reconstruction. Contrast material: ISOVUE; Contrast volume: 80 ml; Contrast route: INTRAVENOUS (IV); COMPARISON: CT HEAD/BRAIN WO CON 05/26/2025 9:51 PM FINDINGS: ANTERIOR CIRCULATION: INTRACRANIAL INTERNAL CAROTID ARTERIES: Mild chronic predominantly calcific plaque in the mid-distal ICA without acute flow-limiting stenosis. MIDDLE CEREBRAL ARTERIES: M1, M2 and their distal visualized branches are without acute flow limiting stenosis. ANTERIOR CEREBRAL ARTERIES: A1, A2 and their distal visualized branches are without acute flow limiting stenosis. Anterior communicating artery is unremarkable. . POSTERIOR CIRCULATION: VERTEBRAL ARTERIES: Intracranial vertebral arteries and their visualized branches are without acute flow limiting stenosis. BASILAR ARTERY: The basilar artery and its visualized proximal branches are without acute flow limiting stenosis. POSTERIOR CEREBRAL ARTERIES: P1, P2 and their distal visualized branches are without acute flow limiting stenosis. IMPRESSION: NO acute flow-limiting stenosis or large vessel occlusion. COMMENTS: Recommend followup with MRI if persistent/new/worsening symptoms or symptoms unexplained by the current study. PROCEDURE INFORMATION: Exam: CTA Neck With Contrast Exam date and time: 05/26/2025 9:56 PM Age: 70 years old Clinical indication: Pain; Headache; Additional info: Worst headache of life, syncope TECHNIQUE: Imaging protocol: Computed tomographic angiography of the neck with contrast. Exam focused on the cervical segments of the vasculature. Radiation optimization: All CT scans at this facility use at least one of these dose optimization techniques: automated exposure control; mA and/or kV adjustment per patient size (includes targeted exams where dose is matched to clinical indication); or iterative reconstruction. COMPARISON: No relevant prior studies available. FINDINGS: THORACIC VESSELS: Atherosclerotic disease of the visualized aortic arch without aortic aneurysm or dissection. No significant narrowing at the origin of the neck vessels. . COMMON CAROTID ARTERIES: Common carotid arteries are without acute flow limiting stenosis. . CERVICAL INTERNAL CAROTID ARTERIES: No acute flow-limiting stenosis of the cervical internal carotid arteries. No evidence of an aneurysm or a dissection. . VERTEBRAL ARTERIES: Cervical vertebral arteries are without acute flow limiting stenosis. . OTHER STRUCTURES: Chronic degenerative changes in the visualized spine and shoulder joint(s). Circumferential wall thickening of the cervical and visualized thoracic esophagus suggestive of reflux disease/esophagitis. Indeterminate thyroid nodule(s) noted incidentally. Scarring, ground-glass opacities, septal and peribronchial thickening in the lung apices with distal airway narrowing. IMPRESSION: 1. NO acute flow-limiting stenosis, no occlusion, aneurysm or dissection of the carotid and vertebral arteries in the neck. 2. Numerous other nonemergent/incidental findings as described. COMMENTS: Consistent with the [employer]'s Incidental Findings Committee white paper (J Am Wilfredo Radiol 2015): In patients aged 35 years and older with an incidental thyroid nodule equal to or greater than 1.[address], MRI or extrathyroidal US, further evaluation with dedicated thyroid US is recommended for patients with normal life expectancy and without comorbidities. For smaller nodules without suspicious features, no further evaluation or follow up is recommended. REFERENCES: NASCET CRITERIA. The degree of stenosis in the cervical segment of the internal carotid artery is based on NASCET criteria. Normal is no stenosis. Mild is less than 50% stenosis. Moderate is 50-69% stenosis. Severe is 70% to 99% stenosis. Total occlusion is no detectable patent lumen.
[2025-05-26 21:24] LABS: Albumin Level 4.7 g/dl (3.5-5.0); Potassium 4.5 mmoL/L (3.5-5.1); Sodium 135 mmol/L (136-145)
[2025-05-26 21:26] LABS: Blood Urea Nitrogen 34 mg/dl (7-17); Creatinine Clearance Estimated 55 mL/min (50-200); Creatinine,Serum 1.40 mg/dl (0.52-1.04); Estimated Glomerular Filt Rate 37 ml/min (>60); GFR (African American) 45 ML/MIN (>60)
[2025-05-26 21:27] LABS: Alanine Aminotransferase 29 U/L (12-78); Albumin/Globulin Ratio 1.2 (1.1-1.8); Alkaline Phosphatase 326 U/L (38-126); Anion Gap 18.5 mEq/L (5-15); Aspartate Amino Transferase 53 U/L (14-36); Bilirubin,Total 0.8 mg/dl (0.2-1.3); Calcium 9.5 mg/dl (8.4-10.2); Carbon Dioxide 27 mmol/L (22.0-30.0); Globulin 4.0 g/dL (1.3-3.2); Glucose 371 mg/dl (74-100); Total Protein,Serum 8.7 g/dl (6.3-8.2)
[2025-05-26 21:31] LABS: Acetone, Serum (Rapid) None Detected (None Detect)
--- OUTSIDE RECORDS SUMMARY | 2025-05-26 21:33 | XMS_ITS | Encounter Summary ---
Author Organization [facility] Address [address] [place] [address] Care Team Providers Care Senior Software Engineer Analytics Name Role Phone Andrew Lee MD Primary Care Provider [phone] Uli Salcedo Unavailable [phone] Rad Galvan MD Primary Care Provider [phone] Encounter Details Date Type Department Care Team (Late st Contact Info) Description 01/11/2025 Orders Only External Location [address] [place] [address] Uli Salcedo PA [address] [place], [place] [id number] Social History Tobacco Use Types Packs/Day Years Used Date Smoking Tobacco: Former Comments Unknown Sex and Gender Information Value Date Recorded Sex Assigned at Not on file Legal Sex Female 7:16 PM EDT Gender Identity Not on file Sexual Orientation Not on file documented as of this encounter Plan of Treatment Upcoming Encounters Date Type Department Care Team (Late st Contact Info) Description 06/24/2025 12:45 PM EDT Office Visit [facility] [place] [facility] [address] [facility]. [address] [place] [address] Elvin Schuler MD [address] [place] [address] documented as of this encounter Procedures Procedure Name Priority Date/Time Associated Diagnosis Comments US OUTSIDE IMAGES 01/11/2025 1:44 PM EST documented in this encounter Results * US OUTSIDE IMAGES (01/11/2025 1:44 PM EST) Anatomical Region Laterality Modality Ultrasound 01/11/2025 1:44 PM EST us Uli FELDER IMG US PROCEDURES Final Result documented in this encounter Visit Diagnoses Not on filedocumented in this encounter Care Teams Senior Software Engineer Analytics Relationship Specialty Start Date End Date Andrew Lee MD [address] [place] [address] [address] [place] [address] PCP - General 04/06/21 04/07/25 aRd Galvan MD [address] [place] [address] PCP - General 04/08/25 Uli Salcedo PA [address] [place] [address] Referring Physician 02/03/25 documented as of this encounter
--- OUTSIDE RECORDS SUMMARY | 2025-05-26 21:34 | XMS_ITS | Encounter Summary ---
Author Organization [facility] Address [address] [place] [address] Care Team Providers Care Education Courses Sales Representative Name Role Phone Andrew Lee MD Primary Care Provider [phone] Uli Salcedo Unavailable [phone] Encounter Details Date Type Department Care Team (Latest Contact Info) Description 03/30/2025 Travel Social History Tobacco Use Types Packs/Day Years [...] Description 06/24/2025 12:45 PM EDT Office Visit [facility] [place] [facility] [address] [place] [address] Elvin Schuler MD [address] [place] [address] documented as of this encounter Visit Diagnoses Not on filedocumented in this encounter Additional Health Concerns Assessment Noted Time PHQ-9 Depression Total Score: 14 02/18/2 025 11:29 AM EDT A fall risk assessment has been complete d for the patient 02/18/2025 11:29 AM EDT A Body Mass Index follow-up plan has been documented for the patient 03/30/2025 1:22 PM EDT documented as of this encounter Care Teams Education Courses Sales Representative Relationship Specialty Start Date End Date Andrew Lee MD [address] [place] [address] [address] [place] [address] PCP - General 04/06/21 04/07/25 Uli Salcedo PA [address] [place] [address] Referring Physician 02/03/25 documented as of this encounter
--- OUTSIDE RECORDS SUMMARY | 2025-05-26 21:34 | XMS_ITS | Clinical Summary ---
Author Organization [facility] Address [address] [place] [address] Care Team Providers Care Gallery Or Museum Curator Name Role Phone Uli Salcedo Unavailable [phone] Rad Galvan MD Primary Care Provider [phone] Allergies Active Allergy Reactions Criticality Noted Date Comments Metoclopramide Rash Low 04/15/2022 Promethazine Unknown - Patient st ates they do not know rxn details Low 11/26/2020 Methylphenidate Itching Medium 02/18/2025 Medications allopurinol (Zyloprim) 100 MG tablet Take 1 tablet by mouth daily. 01/26/20 25 Active atorvastatin (Lipitor) 10 MG tablet Take 1 tablet by mouth daily. 01/26/20 25 Active Farxiga 10 MG tablet Take 1 tablet by mouth daily. Active digoxin (Lanoxin) 125 MCG tablet Take 1 tablet by mouth daily. 01/26/20 25 Active DULoxetine (Cymbalta) [address] capsule Take 1 capsule by mouth 1 time each day. 02/05/20 25 Active fluticasone (Flonase) 50 MCG/ACT nasal spray INSTILL 2 SPRAYS INTO EACH NOSTRIL DAILY DIRECTED BY PROVIDER 04/23/20 24 Active gabapentin (Neurontin) 600 MG tablet TAKE ONE TABLET BY MOUTH EVERY DAY MAY CAUSE DROWSINESS 02/05/20 25 Active NovoLOG FLEXPEN 100 UNIT/ML injection pen Inject 8 Units under the skin. 01/20/20 25 Active HumuLIN 70/30 (70-30) 100 UNIT/ML injection vial As of 03/30/25 35 units in the AM and 30 units in the PM 10/29/20 24 Active isosorbide mononitrate ER (Imdur) 30 MG 24 hr tablet Take 1 tablet by mouth daily. 11/30/19 25 Active loratadine (Claritin) 10 MG tablet Take 1 tablet by mouth daily. 01/26/20 25 Active metoprolol succinate XL (Toprol-XL) 25 MG 24 hr tablet Take 1 tablet by mouth daily. 02/04/20 25 Active pantoprazole (Protonix) 40 MG EC tablet Take 1 tablet by mouth 2 times a day. 01/26/20 25 Active PHENobarbital (Luminal) 32.4 MG tablet take three tablets by mouth every night at bedtime 01/26/20 25 Active potassium chloride CR (Klor-Con M20) 20 MEQ ER tablet Take 1 tablet by mouth twice a day. 01/26/20 25 Active Xarelto 20 MG tablet TAKE ONE TABLET BY MOUTH EVERY DAY FOR BLOOD THINNER 01/27/20 25 Active rOPINIRole (Requip) 2 MG tablet Take 1 tablet by mouth nightly. 01/26/20 25 Active Ozempic, 2 MG/DOSE, 8 MG/3ML solution pen-injector INJECT 2 MG SUBCUTANEOUSLY ONCE A WEEK DIRECTED 04/27/20 24 Active spironolactone (Aldactone) 25 MG tablet Take 1 tablet by mouth daily. 01/28/20 25 Active traMADol (Ultram) 50 MG tablet TAKE ONE TABLET BY MOUTH EVERY 6 HOURS NEEDED FOR MODERATE TO SEVERE PAIN 02/12/20 25 Active valsartan (Diovan) 40 MG tablet Take 1 tablet by mouth 2 times a day. Active nitroglycerin (Nitrostat) 0.[address] 1 tablet under the tongue every 5 minutes as needed for chest pain. Active aspirin 81 MG chewable tablet Chew 1 tablet daily. 30 tablet 2 03/30/20 25 Active bumetanide (Bumex) 1 MG tablet Take 2 tablets by mouth daily. Can take additional doses if needed 04/26/20 25 Active Active Problems Problem Noted Date Diagnosed Date Congestive heart failure 02/18/2025 Encounters Date Type Department Care Team Description 04/26/2025 Telephone [facility] [place] [address] [place] [address] Yaritza Johnson RN 04/08/2025 11:00 AM EDT Office Visit [facility] [address] [facility]. [address] [place] [address] Elvin Schuler MD Chronic systolic congestive heart failure (CMS/HCC) (Primary Dx) 04/08/2025 Travel 04/07/2025 Telephone [facility] [address] [facility]. [address] [address] Elvin Schuler MD 03/30/2025 10:40 AM EDT - 03/30/2025 12:00 PM EDT Surgery [facility]iac [facility] [employer] [address] [place] [address] Brodie Carranza MD Cardiomems w/Right Heart Cath [39983 (CPT )] 03/30/2025 9:45 AM EDT - 03/30/2025 2:35 PM EDT Hospital Encounter [facility] [address] [place] [address] Brodie Carranza MD Congestive heart failure, unspecified HF chronicity, unspecified heart failure type (CMS/HCC) Discharge Disposition: Home or Self Care 03/30/2025 Travel from Last 3 Months Immunizations Immunization Administration Dates Next Due Hep B, adult 04/11/2008,10/06/2007,09/02/2007 Influenza, High-dose, Split Virus, Trivalent, Injectable, preservative free 09/24/2024 Influenza, high-dose, quadrivalent 08/18/2023, Influenza, injectable, quadrivalent 08/10/2021,0 07/30/2016 Influenza, injectable, quadr ivalent, preservative free 08/10/2021,07/30/2016 Pneumococcal 20-brenda Conj Vaccine 02/17/2024 Pneumococcal, Unspecified 09/12/2016 Rsv, Bivalent, Protein Subun it Rsvpref, Diluent Reconstituted, 0.5mL, PF 12/25/2023 TD (adult), 2 Lf tetanus tox oid, preservative free, adsorbed 01/23/1997 Family History Medical History Relation Name Comments Cardiac disorder Other 1 Diabetes Other 2 Hypertension Other 3 Relation Name Status Comments Other 1 Other 2 Other 3 Social History Tobacco Use Types Packs/Day Years [...] on file Sexual Orientation Not on file Last Filed Vital Signs Vital Sign Reading Time Taken Comments Blood Pressure 118/75 04/08/2025 10:44 AM EDT Pulse 75 04/08/2025 10:44 AM EDT Temperature 36.7 C (98.1 F) 03/30/2025 10:04 AM EDT Respiratory Rate 16 04/08/2025 10:44 AM EDT Oxygen Saturation 96% 04/08/2025 10:44 AM EDT Inhaled Oxygen Concentration - - Weight 90.3 kg (199 lb 1.2 oz) 04/08/2025 10:44 AM EDT Height 154.9 cm (5' 1 ) 04/08/2025 10:44 AM EDT Body Mass Index 37.62 04/08/2025 10:44 AM EDT Plan of Treatment Upcoming Encounters Date Type Department Care Team (Late st Contact Info) Description 06/24/2025 12:45 PM EDT Office Visit [facility] [place] [address] [place] [address] Elvin Schuler MD [address] [place] [address] Health Maintenance Due Date Last Done Comments [facility]-Bone Density Scan 1957 [facility]-/Child/Adol SDOH Screenings 1957 Diabetes: Dental Exam 1967 [facility]- SDOH Screenings 1975 [facility]-Adult SDOH Screenings 1975 [facility]-DTaP,Tdap,and Td Vaccines (1 - Tdap) 01/24/1997 01/23/1997 CT Colonography 2002 Colonoscopy 2002 FIT 2002 FOBT 2002 Sigmoidoscopy 2002 [facility]-Breast Cancer Screening 2007 [facility]-Zoster Vaccines (1 of 2) 2007 [id number] Vaccine (5 - season) 2024 09/06/2022, 11/28/2021, 03/06/2021, Additional history exists [facility]-Diabetes: Hemoglobin A1C 08/16/2024 02/17/2024 [facility]-Medicare Annual Wellness (AWV) 02/16/2025 02/17/2024 [facility]-Influenza Vaccine (#1) 07/25/202509/24, 08/18/2023, 09/06/2022, Additional history exists FIT-DNA 02/15/2026 02/15/2023 [facility]-Colorectal Cancer Screening 02/15/2026 [facility]-Depression Screening 04/08/2026 04/08/2025, 03/24 [facility]-Hepatitis C Screening Completed 11/26/2020 [facility]-RSV Vaccine: 60+ Years or Completed 12/25/2023 [facility]-Pneumococcal Vaccine: 50+ Years Completed 02/17/2024, 09/12/2016 [facility]-Obesity Intervention Completed 025, 02/18/2025, 02/18/2025, Additional history exists HPV Vaccines Aged Out No longer eligi ble based on patient's age to complete this topic [facility]-HIB Vaccines Aged Out No longer e ligible based on patient's age to complete this topic [facility]-Hepatitis A Vaccines Aged Out No longer eligible based on patient's age to complete this topic [facility]-IPV Vaccines Aged Out No longer e ligible based on patient's age to complete this topic [facility]-Rotavirus Vaccines Aged Out No lo nger eligible based on patient's age to complete this topic Procedures Procedure Name Priority Date/Time Associated Diagnosis Comments BASIC METABOLIC PANEL, PLASMA Routine 04/08/2025 1:05 PM EDT Chronic systolic congestive heart failure (CMS/HCC) CARDIOMEMS W/RIGHT HEART CATH Routine 03/30/2025 11:39 AM EDT Congestive heart failure, unspecified HF chronicity, unspecified heart failure type (CMS/HCC) POCT CO-OXIMETRY MIXED VENOUS UNSOLICITED RESULTS Routine 03/30/2025 11:23 AM EDT POCT CO-OXIMETRY, VENOUS UNSOLICITIED RESULTS Routine 03/30/2025 11:19 AM EDT HEPATITIS C ANTIBODY - ED W/REFLEX TO HCV QUANT PCR Routine 11/26/2020 6:51 PM EST from Last 3 Months or Most Recently Relevant to Health Maintenance Results * (ABNORMAL) Basic Metabolic Panel, Plasma [...] specimen / Unknown 04/08/2025 12:36 PM EDT Chika Hector Esteban RHODES LAB BLOOD ORDERABLES Final Result [facility] [address] [place] [address] * CARDIOMEMS W/RIGHT HEART CATH (03/30/2025 11:39 [...] into the left pulmonary artery, percutaneous approach. ([id number]) Access: Right Jugular vein 11Fr [place] Sheath Procedure: After obtaining a consent, the patient was brought into the catheterization laboratory, placed on the table and the next was prepped and draped in a sterile fashion. Next, the skin overlaying right jugular vein was anesthetized using 1% Lidocaine. Subsequently, utilizing an 18gauge [employer] needle, right jugular vein was accessed utilizing ultrasound guidance. Using the J-tipped wire included in the access kit, which was inserted through the needle, an 11Fr [place] sheath was inserted over the wire, subsequently blood was aspirated and the sheath flushed. Subsequently a 7 [place] wedge catheter was passed through the [place] sheath into the RA, RV and PA [...] right pulmonary artery for calibration. Ultimately the [place] sheath was withdrawn with patient exhaling during the maneuver and 10 minutes of manual pressure attained hemostasis. Ultimately patient was transferred back to holding area in stable condition without immediate complications. [...] Co-Oximetry Mixed Venous (03/30/2025 11:23 AM EDT) [facility] POCT Oxyhemoglobin, Mixed Venous 59.1 % 03/30/2025 11:24 AM EDT [facility] Sericulturist ID Eva Hernandez 03/30/2025 11:24 AM EDT [facility] Device ID [id number] 1 03/30/2025 11:24 AM EDT [facility]ALTH[facility]ARE LAB POCT Sample Site PA 03/30/2025 11:24 AM EDT [facility] LAB POCT Total Hemoglobin 11.8 11.2 - 15.7 g/dL 03/30/2025 11:24 AM EDT HEALTH[facility]ARE LAB 03/30/2025 11:2 3 AM EDT 03/30/2025 11:24 AM EDT us Brodie Carranza MD LAB POINT OF CARE TEST DOCKED DEVICE UNSOLICITED RESULTS Final Result Performing Organization Address City/[facility]/ZIP Co de Phone Number HEALTHCARE LAB [address] [place] [address] * POCT CO-Oximitry, Venous (03/30/2025 11:19 AM EDT) POCT OXYHEMOGLOBIN, VENOUS 64 40 - 70 % 03/30/2025 11:20 AM EDT HEALTH[facility]ARE LAB Sericulturist ID Eva Hernandez 03/30/2025 11:20 AM EDT HEALTHCARE LAB Device ID [id number] 1 03/30/2025 11:20 AM EDT HEALTH[facility]ARE LAB POCT Sample Site SVC 03/30/2025 11:20 AM EDT HEALTH[facility]ARE LAB POCT Total Hemoglobin 12.1 11.2 - 15.7 g/dL 03/30/2025 11:20 AM EDT HEALTH[facility]ARE LAB Venous blood specimen / Unknown 03/30/2025 11:19 AM EDT 03/30/2025 11:20 AM EDT us Brodie Carranza MD LAB POINT OF CARE TEST DOCKED DEVICE UNSOLICITED RESULTS Final Result [facility] [address] [place] [address] * [place] Hepatitis C Antibody (11/26/2020 6:51 PM EST) [place] Hepatitis C Ab NEGATIVE Reference Range: Negative [facility] 11/26/2020 6:51 PM EST 11/26/2020 7:09 PM EST Justo Morse MD LAB BLOOD ORDERABLES Final Re sult [facility] from Last 3 Months or Most Recently Relevant to Health Maintenance Insurance [employer] MEDICARE Advance Directives Documents on File Type Date Recorded Patient Game Preserve Manager Expl anation Advance Directives and Living Will 03/30/2025 LIVING WILL DIRECTIV E Healthcare Agents on File Name Relationship Healthcare Agent Relationshi p Communication Yennifer Edwards Daughter Next of Kin Care Teams Gallery Or Museum Curator Relationship Specialty Start Date End Date Rad Galvan MD [address] [place] [address] PCP - General 04/08/25 Uli Salcedo PA [address] [place] [address] Referring Physician 02/03/25
--- OUTSIDE RECORDS SUMMARY | 2025-05-26 21:34 | XMS_ITS | Encounter Summary ---
Author Organization [facility] Address [address] [place] [address] Care Team Providers Care Grain Loader Name Role Phone Andrew Lee MD Primary Care Provider [phone] Uli Salcedo Unavailable [phone] Rad Galvan MD Primary Care Provider [phone] Encounter Details Date Type Department Care Team (Late st Contact Info) Description 04/07/2025 Telephone [facility] [place] [facility] [address] [facility] [place] [address] Elvin Schuler MD [address] [place] [address] Social History Tobacco Use Types Packs/Day Years Used Date Smoking Tobacco: Former Passive Smoke Exposure: Never Smokeless Tobacco: Never Alcohol Use Standard Drinks/Week Comments Not Currently 0 (1 standard drink = 0.6 oz pur e alcohol) PHQ-2 Answer Date Recorded Patient Health Questionnaire-2 Score 0 04/08/2025 PHQ-9 Answer Date Recorded Patient Health Questionnaire-9 Score 0 04/08/2025 Comments Unknown Sex and Gender Information Value Date Recorded Sex Assigned at Not on file Legal Sex Female 7:16 PM EDT Gender Identity Not on file Sexual Orientation Not on file documented as of this encounter Functional Status * Over the past 2 weeks, how often have you been bothered by any of the following problems? Question Answer Date of Assessment Author Little interest or pleasure in doing things Not at all 04/08/2025 11:00 AM Bora Pang Feeling down, depressed, or hopeless Not at all 04/08/2025 11:00 AM Bora Pang Patient Health Questionnaire -2 Score 0 04/08/2025 11:00 AM FAHADT Bora Matta * Question Answer Date of Assessment Author Trouble falling or staying asleep, or sleeping too much Not at all 04/08/2025 11:00 AM FAHADT Ean Ray Feeling tired or having anita le energy Not at all 04/08/2025 11:00 AM Bora Pang Poor appetite or overeating Not at all 04/08/2025 11 :00 AM FAHADT Ean Matta Feeling bad about yourself - or that you are a failure or have let yourself or your family down Not at all 04/08/2025 11:00 AM Bora Pang Trouble concentrating on things, such as reading the newspaper or watching television Not at all 04/08/2025 11:00 AM Bora Pang Moving or speaking so slowly that other people could have noticed? Or the opposite - being so fidgety or restless that you have been moving around a lot more than usual. Not at all 04/08/2025 11:00 AM Ean Garrett Thoughts that you would be better off or hurting yourself in some way Not at all 04/08/2025 11:00 AM Michael Pang Patient Health Questionnaire -9 Score 0 04/08/2025 11:00 AM Bora Pang * If you checked off any problems on this questionnaire so far, Question Answer Date of Assessment Author How difficult have these problems made it for you to do your work, take care of things at home, or get along with other people? Not difficult at all 04/08/2025 11:00 AM Michael Pang documented as of this encounter Plan of Treatment Upcoming Encounters Date Type Department Care Team (Late st Contact Info) Description 06/24/2025 12:45 PM EDT Office Visit [facility] [place] [facility] [address] [place] [address] Elvin Schuler MD [address] [place] [address] documented as of this encounter Visit Diagnoses [...] documented as of this encounter Care Teams Grain Loader Relationship Specialty Start Date End Date Andrew Lee MD [address] [place] [address] [address] [place] [address] PCP - General 04/06/21 04/07/25 Rad Galvan MD [address] [place] [address] PCP - General 04/08/25 Uli Salcedo PA [address] [place] [address] Referring Physician 02/03/25 documented as of this encounter
--- OUTSIDE RECORDS SUMMARY | 2025-05-26 21:34 | XMS_ITS | Encounter Summary ---
Author Organization [facility] Address [address] [id number] Care Team Providers Care Academic Affairs Director Name Role Phone Uli Salcedo Unavailable [phone] Rad Galvan MD Primary Care Provider [phone] Encounter Details Date Type Department Care Team (Late st Contact Info) Description 04/26/2025 Telephone [facility] [address] [facility] [place] [address] Yaritza Johnson, RN [facility] [address] [place] [address] Social History Tobacco Use Types Packs/Day Years [...] on file documented as of this encounter Miscellaneous Notes * Telephone Encounter - Yaritza Johnson RN - 05/09/2025 11:59 AM EDT Contacted Ms Alcantar again today. PAD readings have remained 21 (no reading today but is traveling and will be back home tomorrow). Advised to take any additional of bumex of today. Will follow readings and adjust as needed based on trends * Telephone Encounter - Yaritza Johnson RN - 05/06/2025 3:05 PM EDT Reviewed PAD trends. PAD today 21, trends of 16, 17, 20. Attempted to contact to assess. No answer and unable to leave a VM * Telephone Encounter - Yaritza Johnson RN - 04/26/2025 11:24 AM EDT Reviewed cardiomems PAD trends with Tianna Orellana APRN. Previously readings have been 20 but jumped to 24 yesterday. No reading this am. Contacted Ms alcantar to follow up on symptoms. Ms alcantar reported she had to leave her home early this am so was not able to send a reading. Ms alcantar stated she was feeling good and denied any worsening HF symptoms. Reported she had swelling in BLE but reported always having swelling and swelling wasn't any worse per her assessment. Reported taking bumex 1mg (2 tablets) daily. Orders received from tianna Orellana APRN to increase bumex to 2mg Bid for 2 days. Ms alcantar reported she uses pill packs and will need additional doses sent to pharmacy. Contacted pharmacy to supply free standing bottle to help when Ms Alcantar is advised to take additional doses based on PAD readings. Pharmacy stated they could fill packs and add bottle for extra doses if needed. Updated script provided for quantity of 120 to allow for additional doses. Ms alcantar updated and aware During call, Ms alcantar reported she increased her metoprolol dose as advised following OV. Reported she does not take bp and HR readings at home but stated she was feeling good. Tianna updated and aware documented in this encounter Plan of Treatment Upcoming Encounters Date Type Department Care Team (Late st Contact Info) Description 06/24/2025 12:45 PM EDT Office Visit [facility] [place] [address] [place] [address] Elvin Schuler MD [address] [place] [address] documented as of this encounter Visit Diagnoses [...] documented as of this encounter Care Teams Academic Affairs Director Relationship Specialty Start Date End Date Rad Galvan MD [address] [place] [address] PCP - General 04/08/25 Uli Salcedo PA [address] [place] [address] Referring Physician 02/03/25 documented as of this encounter
--- OUTSIDE RECORDS SUMMARY | 2025-05-26 21:34 | XMS_ITS | Encounter Summary ---
Author Organization [facility] Address [address] [place] [address] Care Team Providers Care Nanotechnician Name Role Phone Uli Salcedo Unavailable [phone] Rad Galvan MD Primary Care Provider [phone] Encounter Details Date Type Department Care Team (Latest Contact Info) Description 04/08/2025 Travel Social History Tobacco Use Types Packs/Day [...] down Not at all 04/08/2025 11:00 AM FAHADT Bora Matta Trouble concentrating on things, such as reading the newspaper or watching television Not at all 04/08/2025 11:00 AM FAHADT Bora Matat Moving or speaking so slowly that other people could have noticed? Or the opposite - being so fidgety or restless that you have been moving around a lot more than usual. Not at all 04/08/2025 11:00 AM EDT Ean Hays Thoughts that you would be better off or hurting yourself in some way Not at all 04/08/2025 11:00 AM FAHADT Michael Matta Patient Health Questionnaire -9 Score 0 04/08/2025 11:00 AM FAHADT Bora Matta * If you checked off any problems on this questionnaire so far, Question Answer Date of Assessment Author How difficult have these problems made it for you to do your work, take care of things at home, or get along with other people? Not difficult at all 04/08/2025 11:00 AM FAHADT Michael Matta documented as of this encounter Plan of Treatment Upcoming Encounters Date Type Department Care Team (Late st Contact Info) Description 06/24/2025 12:45 PM EDT Office Visit [facility] [place] [facility] [address] [place] [address] Elvin Schuler MD [address] [place] [id number] documented as of this encounter Visit Diagnoses [...] documented as of this encounter Care Teams Nanotechnician Relationship Specialty Start Date End Date Rad Galvan MD [address] [place] [address] PCP - General 04/08/25 Uli Salcedo PA [address] [place] [address] Referring Physician 02/03/25 documented as of this encounter
[2025-05-26 21:40] LABS: Troponin I < 0.01 ng/ml (0.00-0.034)
[2025-05-26 21:46] LABS: NT Pro Brain Natriuretic Pep. 1220 pg/mL (0-125)
[2025-05-26 21:53] LABS: Bilirubin,Urine Negative (Negative); Color,Urine YELLOW (Yellow); Glucose,Urine (UA) 3+ (Negative); Ketones,Urine Negative (Negative); Leukocyte Esterase,Urine Negative (Negative); Microscopic, Urine URINE MICROSCOPIC (MICROSCOPIC); PH,Urine 6.5 (5.0-8.5); Protein,Urine Negative (Negative); Specific Gravity, Urine 1.010 (1.005-1.030); Urobilinogen,Urine 0.2 EU/dl (0.2)
[2025-05-26] MEDS: SODIUM CHLORIDE 0.9% 10ML SYR (RAD ONLY) 10 ML IV (21:59)
[2025-05-26] MEDS: IOPAMIDOL-370 (76%);100ML BOTTLE 150 ML IV (21:59)
[2025-05-26] MEDS: 0.9 % SODIUM CHLORIDE 50 ML VIAL 100 ML IV (21:59)
[2025-05-26 22:06] LABS: Bacteria,Urine 2+ /lpf; RBC,Urine Occasional #/hpf (0-3); WBC,Urine Occasional #/hpf (0-3)
[2025-05-26 22:08] LABS: Benzodiazepines Screen,Urine Negative ng/ml (<200)
[2025-05-26 22:09] LABS: Amphetamine/Metha Screen,Urine Negative ng/ml (<1000); Barbiturates Screen,Urine Positive ng/ml (<200)
[2025-05-26 22:11] LABS: Methadone Screen,Urine Negative ng/ml (<300)
[2025-05-26 22:12] LABS: Opiate Screen,Urine Negative ng/ml (<300)
[2025-05-26 22:13] LABS: Phencyclidine Screen,Urine Negative ng/ml (<25)
[2025-05-27] VITALS (12 sets, daily range): BP systolic 116–151; BP diastolic 44–84; PULSE 65–93; RESP 16–18; TEMP 36.6–36.8; O2SAT 94–99
[2025-05-27] MEDS: BUMETANIDE 1MG/4ML VIAL 2 MG IV ×3 (00:50→17:29)
[2025-05-27] MEDS: KETOROLAC 30MG/ML VIAL 15 MG IV (00:50)
--- NOTE | 2025-05-27 00:50 | PC.NURSE ---
Spoke with Barbra GONZALES to give report for hospital admission
[2025-05-27 01:00] LABS: Reflex Lactic Add Lactic Reflex
[2025-05-27 01:04] LABS: Troponin I < 0.01 ng/ml (0.00-0.034)
[2025-05-27 01:20] LABS: Lactic Acid Follow Up (RFLX 1) 3.3 mmol/L (0.7-2.1)
[2025-05-27 02:57] LABS: Reflex Lactic (2 hrs) Add Lactic Reflex
[2025-05-27 03:41] LABS: Lactic Acid Follow up (RFLX 2) 1.9 mmol/L (0.7-2.1)
[2025-05-27 03:51] LABS: Troponin I 0.01 ng/ml (0.00-0.034)
--- NOTE | 2025-05-27 04:28 | PC.NURSE ---
pt is alert and oriented x4. Pt has rested well since admission. Pt is paced on telemetry. Pt has had no acute change to note this shift.
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
--- NOTE | 2025-05-27 05:08 | PC.NURSE ---
Pt has dexcom in place @ 0500 pt dexcom read 150, FSBS was 163
[2025-05-27 05:11] LABS: POC Glucose,Bedside 163 (70-110)
[2025-05-27] MEDS: ACETAMINOPHEN 325MG TAB 650 MG PO (07:23)
[2025-05-27 07:26] LABS: Hematocrit 31.9 % (37.0-47.0); Immature Granulocytes % 0.2 %; Mean Corpuscular HGB Conc 33.5 g/dL (31.8-35.4); Mean Corpuscular Hemoglobin 33.5 pg (27.0-31.2); Mean Corpuscular Volume 100.0 fl (81-99); Nucleated Red Blood Cells % 0 %; Platelet Count 171 K/mm3 (142-424); Red Blood Count 3.19 M/mm3 (4.20-5.40); Red Cell Distribution Width-SD 58.6 fL; White Blood Count 5.6 K/mm3 (4.8-10.8)
[2025-05-27 07:37] LABS: Anion Gap 12.1 mEq/L (5-15); Blood Urea Nitrogen 34 mg/dl (7-17); Calcium 9.1 mg/dl (8.4-10.2); Carbon Dioxide 28 mmol/L (22.0-30.0); Chloride 96 mmol/L (98-107); Creatinine Clearance Estimated 61 mL/min (50-200); Creatinine,Serum 1.30 mg/dl (0.52-1.04); Estimated Glomerular Filt Rate 41 ml/min (>60); GFR (African American) 49 ML/MIN (>60); Glucose 154 mg/dl (74-100); Potassium 4.1 mmoL/L (3.5-5.1); Sodium 132 mmol/L (136-145)
[2025-05-27] MEDS: humaLOG MIX 75/25 3ML FLEXPEN 20 UNIT SUBCUT ×2 (07:38→17:30)
[2025-05-27] MEDS: ALLOPURINOL 100MG TABLET 100 MG PO (08:56)
[2025-05-27] MEDS: DAPAGLIFLOZIN PROPANEDIOL 10 MG TABLET PO (08:56)
[2025-05-27] MEDS: DIGOXIN 0.125MG TABLET 125 MCG PO (08:56)
[2025-05-27] MEDS: ISOSORBIDE MONO 30MG TAB.ER.24H 30 MG PO (08:56)
[2025-05-27] MEDS: GABAPENTIN 600MG TABLET 600 MG PO ×2 (08:57→20:06)
[2025-05-27] MEDS: IRBESARTAN 75MG TABLET 37.5 MG PO (08:57)
[2025-05-27] MEDS: LORATADINE 10MG TABLET 10 MG PO (08:58)
[2025-05-27] MEDS: PANTOPRAZOLE 40MG TABLET 40 MG PO ×2 (08:58→20:06)
[2025-05-27] MEDS: BUMETANIDE 1MG/4ML VIAL 1 MG IV (08:58)
[2025-05-27] MEDS: SPIRONOLACTONE 25MG TABLET 25 MG PO ×2 (08:58→17:28)
[2025-05-27] MEDS: METOPROLOL SUCCINATE XL 25MG TABLET 12.5 MG PO (08:58)
[2025-05-27 09:16] LABS: Hemoglobin 10.7 g/dL (12.2-16.2)
--- NOTE | 2025-05-27 09:57 | HMH.PHAINT1 ---
Pharmacy Intervention Comments: MEDICATION RECONCILIATION COMPLETED ON PATIENT USING EXTERNAL FILL HISTORY FROM PHARMACY. -KENDRA ANAYA, [facility]
[2025-05-27] MEDS: ATORVASTATIN 10MG TABLET 10 MG PO (20:06)
[2025-05-27] MEDS: PHENOBARBITAL 32.4 MG 97.2 MG PO (20:06)
[2025-05-27] MEDS: ROPINIROLE 1MG TABLET 2 MG PO (20:06)
[2025-05-28] VITALS (11 sets, daily range): BP systolic 108–134; BP diastolic 43–72; PULSE 52–84; RESP 16–18; TEMP 36.3–37; O2SAT 92–100; BMI 38.4
[2025-05-28] MEDS: ACETAMINOPHEN 325MG TAB 650 MG PO ×2 (03:02→16:11)
--- NOTE | 2025-05-28 05:42 | PC.NURSE ---
Pt A&OX4 and has tolerated room air. She has remained paced of tele. She has continued to be diuresed. She has ambulated room with standby assist. She did complain of a headache once and was medicated per MAR. No other complaints at this time, call light within reach.
[2025-05-28] MEDS: humaLOG MIX 75/25 3ML FLEXPEN 20 UNIT SUBCUT ×2 (06:37→16:48)
[2025-05-28] MEDS: IRBESARTAN 75MG TABLET 37.5 MG PO (08:50)
[2025-05-28] MEDS: DAPAGLIFLOZIN PROPANEDIOL 10 MG TABLET PO (08:50)
[2025-05-28] MEDS: LORATADINE 10MG TABLET 10 MG PO (08:51)
[2025-05-28] MEDS: PANTOPRAZOLE 40MG TABLET 40 MG PO ×2 (08:51→21:28)
[2025-05-28] MEDS: BUMETANIDE 1MG/4ML VIAL 2 MG IV (08:52)
[2025-05-28] MEDS: ISOSORBIDE MONO 30MG TAB.ER.24H 30 MG PO (08:52)
[2025-05-28] MEDS: ALLOPURINOL 100MG TABLET 100 MG PO (08:52)
[2025-05-28] MEDS: GABAPENTIN 600MG TABLET 600 MG PO ×2 (08:55→21:29)
[2025-05-28] MEDS: SPIRONOLACTONE 25MG TABLET 25 MG PO ×2 (08:55→16:12)
[2025-05-28] MEDS: IPRATROPIUM/ALBUTEROL 3 ML NEB IH (09:00)
[2025-05-28 09:18] LABS: Hematocrit 32.7 % (37.0-47.0); Hemoglobin 11.1 g/dL (12.2-16.2); Immature Granulocytes % 0.6 %; Mean Corpuscular HGB Conc 33.9 g/dL (31.8-35.4); Mean Corpuscular Hemoglobin 33.8 pg (27.0-31.2); Mean Corpuscular Volume 99.7 fl (81-99); Nucleated Red Blood Cells % 0 %; Platelet Count 166 K/mm3 (142-424); Red Blood Count 3.28 M/mm3 (4.20-5.40); Red Cell Distribution Width-SD 59.6 fL; White Blood Count 5.0 K/mm3 (4.8-10.8)
[2025-05-28 10:28] LABS: Alanine Aminotransferase 28 U/L (12-78); Albumin Level 3.6 g/dl (3.5-5.0); Albumin/Globulin Ratio 1.2 (1.1-1.8); Alkaline Phosphatase 162 U/L (38-126); Anion Gap 16.3 mEq/L (5-15); Aspartate Amino Transferase 57 U/L (14-36); Bilirubin,Total 1.0 mg/dl (0.2-1.3); Blood Urea Nitrogen 42 mg/dl (7-17); Calcium 8.7 mg/dl (8.4-10.2); Carbon Dioxide 22 mmol/L (22.0-30.0); Chloride 95 mmol/L (98-107); Creatinine Clearance Estimated 52 mL/min (50-200); Creatinine,Serum 1.50 mg/dl (0.52-1.04); Estimated Glomerular Filt Rate 35 ml/min (>60); GFR (African American) 42 ML/MIN (>60); Globulin 3.1 g/dL (1.3-3.2); Glucose 230 mg/dl (74-100); Magnesium 1.9 mg/dl (1.6-2.3); Potassium 4.3 mmoL/L (3.5-5.1); Sodium 129 mmol/L (136-145); Total Protein,Serum 6.7 g/dl (6.3-8.2)
[2025-05-28 11:21] LABS: Adenovirus,PCR Not Detected (NotDetected); Chlamydophila Pneumoniae, PCR Not Detected (NotDetected); Coronavirus 19, PCR Not Detected (NotDetected); Coronovirus HKU1,PCR Not Detected (NotDetected); Influenza A, PCR Not Detected (NotDetected); Influenza AH1, 2009 Not Detected (NotDetected); Influenza AH1, PCR Not Detected (NotDetected); Influenza AH3,PCR Not Detected (NotDetected); Influenza B, PCR Not Detected (NotDetected); Mycoplasma Pneumoniae, PCR Not Detected (NotDetected); Parainfluenza 1, PCR Not Detected (NotDetected); Parainfluenza 2, PCR Not Detected (NotDetected); Parainfluenza 3, PCR Not Detected (NotDetected); Parainfluenza 4, PCR Not Detected (NotDetected)
--- NOTE | 2025-05-28 12:11 | HMH.PTEV ---
Physical Therapy Evaluation Rehab PT IP Evaluation Start: 05/28/25 11:08 Freq: ONCE Status: Active Protocol: Document 05/28/25 12:09 MORALES (Rec: 05/28/25 12:11 MORALES [id number]) Subjective/History History History 70-year-old female with past medical history of atrial fibrillation, heart failure with reduced ejection fraction status post defibrillator, pacemaker, diabetes mellitus, pulmonary hypertension, cardiomyopathy, hypertension, HLD, anxiety who presents to the hospital for shortness of breath. According to patient she has been feeling short of breath for past few days, she also had an episode of syncope. She also mentions she has been having wheezing. Otherwise denied fevers chills diarrhea constipation dysuria. Pt reports she lives alone, 1 [address] the home and she is generally independent with all mobility and ADLs using RW. Subjective Subjective Pt reports, I just feel like crap today, but she does agree to mobility assessment. [facility] How much help from another person do you currently need... Turning from your None back to your side while in a flat bed without using bedrails? Moving from lying on None back to sitting on the side of a flat bed without using bedrails? Moving to and from a None bed to a chair ( including a wheelchair)? Standing up from a None chair using your arms? (e.g., wheelchair, bedside chair) Walking in hospital None room? Climbing 3-5 steps None with a railing? Mobility Score 24 Mobility Level [place] [address] Walk 250 feet or more Mobility Calculator Rehab PT IP Eval Objective Appearance Patient Behavior Appropriate Patient Orientation Person,Place,Time Difficulty following none instructions Speech Pattern Clear Ambulation Patient Able to Yes Ambulate Ambulation Observation IP General Gait No Deviations/Normal Pattern Observation Ambulation Distance 200 (feet) Ambulation Assistive Rolling Walker Device Ambulation Ability Independent Balance Ability to Arise Able, uses arms to help Sitting Balance Steady, safe Standing Balance Steady, wide stance Dynamic Sitting Good Balance Ability Dynamic Standing Good Balance Ability Transfers Bed Transfer Ability Independent Chair Transfer Independent Ability Sit to Stand Bed Independent Transfer Ability Sit to Stand Chair Independent Transfer Ability Rehab PT IP prob,goals,plan Problems Date of Evaluation: 05/28/25 Discharge Plan PT Discharge Plan Pt currently presents independent with all mobility and is appropriate to return home once medically stable for d/c. No current acute skilled therapy needs. Eval Complexity Eval Charge Codes 42201 - High Complexity PHYSICIAN CERTIFICATION: I certify the specified therapy services for Sara Hortonmins are required, authorized, and reviewed every 30 days.
--- NOTE | 2025-05-28 13:22 | EXP.ACUTE.PN ---
Subjective *Date: 05/28/25 *Time: 13:56 Interval history: Patient states she just feels more fatigued today. Has some increased cough. Cough is nonproductive. Also has the sniffles. Denies fever, nausea, vomiting. Noted wheeze on exam. Tolerating p.o. intake. Vitals normal. Afebrile. On room. Negative at least 1 L since admission Medical Exam Vital signs and Labs for Last 24 Hours: Vital Signs Temp Pulse Pulse Pulse Resp BP Pulse Ox 05/28/25 12:45 05/28/25 12:00 80 05/28/25 12:00 97.7 F 75 16 108/61 L 97 05/28/25 10:34 05/28/25 09:03 62 05/28/25 09:03 73 05/28/25 08:51 52 L 05/28/25 08:00 70 05/28/25 08:00 05/28/25 07:37 98.0 F 75 16 120/62 95 05/28/25 06:45 05/28/25 05:00 05/28/25 04:00 97.3 F L 84 17 116/54 L 92 L 05/28/25 04:00 80 05/28/25 03:00 05/28/25 01:00 05/28/25 00:00 80 05/28/25 00:00 98.1 F 83 17 134/72 96 05/27/25 23:00 05/27/25 21:00 05/27/25 20:00 70 05/27/25 20:00 05/27/25 19:31 97.9 F 85 17 124/81 96 05/27/25 18:29 05/27/25 17:00 05/27/25 16:00 70 05/27/25 16:00 98 F 73 16 116/61 94 L 05/27/25 14:52 O2 Del Method 05/28/25 12:45 Room Air 05/28/25 12:00 05/28/25 12:00 Room Air 05/28/25 10:34 Room Air 05/28/25 09:03 05/28/25 09:03 05/28/25 08:51 05/28/25 08:00 05/28/25 08:00 Room Air 05/28/25 07:37 Room Air 05/28/25 06:45 Room Air 05/28/25 05:00 Room Air 05/28/25 04:00 Room Air 05/28/25 04:00 05/28/25 03:00 Room Air 05/28/25 01:00 Room Air 05/28/25 00:00 05/28/25 00:00 Room Air 05/27/25 23:00 Room Air 05/27/25 21:00 Room Air 05/27/25 20:00 05/27/25 20:00 Room Air 05/27/25 19:31 Room Air 05/27/25 18:29 Room Air 05/27/25 17:00 Room Air 05/27/25 16:00 05/27/25 16:00 Room Air 05/27/25 14:52 Room Air Intake and Output 05/27/25 05/28/25 05/28/25 23:59 07:59 15:59 Intake Total 270 / 920 360 / 1080 720 / 1080 Output Total 1000 / 1950 400 / 400 Balance -730 / -1030 -40 / 680 720 / 680 Intake: Intake, Oral Amount 270 / 920 360 / 1080 720 / 1080 Output: Output, Urine Amount 1000 / 1950 400 / 400 Other: Number of Unmeasured Voids 0 0 Number of Bowel Movements 1 Weight 92.351 kg Patient Weight 05/28/25 23:59 Weight 92.351 kg Laboratory Results - last 24 hr 05/26/25 21:47: Urine Color Yellow, Urine Appearance Clear, Urine pH 6.5, Ur Specific [place] 1.010, Urine Protein Negative, Urine Glucose (UA) 3+, Urine Ketones Negative, Urine Blood Negative, Urine Nitrate Negative, Urine Bilirubin Negative, Urine Urobilinogen 0.2, Ur Leukocyte Esterase Negative, Urine RBC Occasional, Urine WBC Occasional, Ur Squamous Epith Cells 3-5, Urine Bacteria 2+, Urine Opiates Screen Negative, Urine Methadone Screen Negative, Ur Barbituates Screen Positive H, Ur Phencyclidine Scrn Negative, Ur Amphetamines Screen Negative, U Benzodiazepines Scrn Negative, Urine Cocaine Screen Negative, U Marijuana (THC) Screen Negative 05/28/25 08:47: WBC 5.0, RBC 3.28 L, Hgb 11.1 L, Hct 32.7 L, MCV 99.7 H, MCH 33.8 H, MCHC 33.9, RDW 16.0, Plt Count 166, MPV 9.6, Neut % (Auto) 61.1, Lymph % (Auto) 24.1, [place] % (Auto) 10.0 H, Eos % (Auto) 3.6, Baso % (Auto) 0.6, Neut # (Auto) 3.1, Lymph # (Auto) 1.2, [place] # (Auto) 0.5, Eos # (Auto) 0.2, Baso # (Auto) 0.0, Sodium 129 L, Potassium 4.3, Chloride 95 L, Carbon Dioxide 22, Anion Gap 16.3 H, BUN 42 H, Creatinine 1.50 H, Estimated Creat Clear 52, Estimated GFR 35 L, Est GFR ( Amer) 42 L, Glucose 230 H, Calcium 8.7, Magnesium 1.9, Total Bilirubin 1.0, AST 57 H, ALT 28, Alkaline Phosphatase 162 H, Total Protein 6.7, Albumin 3.6, Globulin 3.1, Albumin/Globulin Ratio 1.2 05/28/25 11:10: Chlamy pneumoniae PCR Not detected, Adenovirus (PCR) Not detected, B. pertussis DNA (PCR) Not detected, Coronavirus OC43 (PCR) Not detected, Coronavirus HKU1 (PCR) Not detected, Coronavirus 229E (PCR) Not detected, SARS-CoV-2 (PCR) Not detected, Coronavirus NL63 (PCR) Not detected, Human Metapneumovir PCR Detected A, Influenza A (H1) PCR Not detected, Influ A (H1N1/09) PCR Not detected, Influenza A (H3) PCR Not detected, Influenza Type A (PCR) Not detected, Influenza Type B (PCR) Not detected, M. pneumoniae (PCR) Not detected, Parainfluenza 1 (PCR) Not detected, Parainfluenza 2 (PCR) Not detected, Parainfluenza 3 (PCR) Not detected, Parainfluenza 4 (PCR) Not detected, RSV (PCR) Not detected, Entero/Rhino (PCR) Not detected I & O for Labs for Last 24 Hours: Intake & Output 05/25/25 05/26/25 05/27/25 05/28/25 23:59 23:59 23:59 23:59 Intake Total 800 / 920 1080 / 1080 Output Total 1950 / 1950 400 / 400 Balance -1150 / -1030 680 / 680 Weight 90.718 kg 94.03 kg 92.351 kg Microbiology Reports for the Last 24 Hours: Microbiology 05/26/25 21:47 Urine,Clean Catch Urine Culture - Preliminary Gram Negative Rods Constitutional: Present no acute distress, obese, chronically ill appearing and cooperative Head: Present atraumatic and normocephalic ENT: Present normal exam Respiratory: Present wheezes (Best heard in posterior lung field) and normal respiratory effort; Absent rhonchi or crackles Cardiac: Present Reg Rate and Rhythm GI: Present soft and normal bowel sounds; Absent distention or tenderness Extremities: Present normal inspection, full ROM and edema (1+ to knees) Skin: Present intact; Absent erythema Neuro: Present Grossly Intact, alert, awake, oriented x 3 and moves all extremities Assessment and Plan *Assessment and plan (1) Acute exacerbation of CHF (congestive heart failure): Status: Acute Qualifiers: Heart failure type: combined systolic and diastolic Qualified Code(s): I50.43 - Acute on chronic combined systolic (congestive) and diastolic (congestive) heart failure Category: Medical Code(s): I50.9 - Heart failure, unspecified (2) Pulmonary edema: Status: Acute Category: Medical Code(s): J81.1 - Chronic pulmonary edema (3) Syncope: Status: Acute Category: Medical Code(s): R55 - Syncope and collapse (4) Hyperglycemia: Status: Acute Category: Medical Code(s): R73.9 - Hyperglycemia, unspecified (5) Diabetes mellitus: Status: Acute Qualifiers: Diabetes mellitus complication detail: with neuropathic arthropathy Diabetes mellitus complication status: with diabetic arthropathy 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: with dedicated intermodal truck driver use Diabetes mellitus type: type 2 Qualified Code(s): E11.610 - Type 2 diabetes mellitus with diabetic neuropathic arthropathy; Z79.4 - long-term (current) use of insulin Category: Medical Code(s): E11.9 - Type 2 diabetes mellitus without complications (6) Acute hypokalemia: Status: Resolved Category: Medical Code(s): E87.6 - Hypokalemia (7) Infection due to human metapneumovirus (hMPV): Status: Acute Category: Medical Code(s): B34.8 - Other viral infections of unspecified site Plan Patient is a 70-year-old female with past medical history of atrial fibrillation, heart failure with reduced ejection fraction status post defibrillator, pacemaker, diabetes mellitus, pulmonary hypertension, cardiomyopathy, hypertension lipidemia anxiety who presents to the hospital for shortness of breath. According to patient she has been feeling short of breath for past few days, she also had an episode of syncope. She also mentions she has been having wheezing. Otherwise denied fevers chills diarrhea constipation dysuria. Initially thought to have CHF exacerbation. Admitted for further management. Concerned she may have URI/bronchitis at this time. Respiratory panel obtained today. Problems addressed as follows: Acute on chronic combined heart failure Hypertension CAD A-fib - Patient has history of grade 3 diastolic dysfunction and heart failure with reduced ejection fraction with 30%. BNP elevated on admission. Responding to diuresis. -1 L since admission. - Continue Bumex, decrease to 1 mg twice daily - Continue home medications for heart failure and Lipitor 10 mg daily, dapagliflozin 10 mg daily, digoxin 125 micro daily, metoprolol succinate 12.5 mg daily, spironolactone 25 mg twice daily. Hold for soft blood pressures - Continues Xarelto 20 mg nightly Dyspnea -Review of CTA of chest shows patchy consolidation concerning for edema. Given persistent cough and wheeze, competence of respiratory panel obtained. Patient found to be positive for human metapneumovirus. -Concern for viral bronchitis. Initiate DuoNebs every 6 hours as needed -White count normal. No indication for antibiotic -Supplemental oxygen if needed. Currently on room air, goal sats greater 90% Hyperglycemia due to uncontrolled diabetes mellitus -Continue sliding scale insulin with fingersticks ACHS - Dapagliflozin as above Seizure disorder: Continue home phenobarbital Elevated creatinine likely CKD stage III Creatinine 1.5, BUN 42. At baseline. Monitor closely with diuresis. Repeat CBC, CMP, magnesium ordered for the morning Urine culture growing gram-negative rods. 20-40,000 CFU's. Unsure the significance. Initiated on ceftriaxone 1 g daily. Will monitor for speciation. Anticipate treatment of 3 days with antibiotics Full code Diabetic diet DVT prophylaxis-on Xarelto
--- NOTE | 2025-05-28 14:57 | PC.NURSE ---
PT IS SITTING UP IN THE CHAIR. SLEEPING OFF AND ON T/O THE DAY. ALERT AND ORIENTED X4. EATING AND DRINKING WELL. PT STATES SHE FEELS REALLY WEAK TODAY. LUNG SOUNDS DIMINISHED WITH SCATTERED WHEEZES. ABDOMEN SOFT/NON TENDER WITH ACTIVE BOWEL SOUNDS. TRACE EDEMA NOTED TO BLE. WILL CONTINUE TO MONITOR
[2025-05-28] MEDS: BUMETANIDE 1MG/4ML VIAL 1 MG IV (16:11)
[2025-05-28] MEDS: ROPINIROLE 1MG TABLET 2 MG PO (21:28)
[2025-05-28] MEDS: ATORVASTATIN 10MG TABLET 10 MG PO (21:28)
[2025-05-28] MEDS: PHENOBARBITAL 32.4 MG 97.2 MG PO (21:28)
[2025-05-29] VITALS: PULSE 75
--- NOTE | 2025-05-29 00:31 | PC.NURSE ---
PT REFUSED SEIZURE PADS/PRECAUTIONS
--- NOTE | 2025-05-29 01:10 | PC.NURSE ---
Addendum entered by Vicky Robertson RN 05/29/25 06:44: At this time, the patient's glucose reading via Dexcom is 145. Original Note: Used Pt's Dexcom for 2100 blood sugar, okay with using dexcom
[2025-05-29 03:39] VITALS: BP 117/52; PULSE 70; RESP 16; TEMP 36.8; O2SAT 93; BMI 38.7
[2025-05-29 04:00] VITALS: PULSE 60
--- NOTE | 2025-05-29 04:50 | PC.NURSE ---
Pt is A&Ox4. Pt is on RA. Pt's rhythym on telemetry has been paced. Pt had expiratory wheezes and diminished lung sounds noted on assessment. Pt has edema noted in left wrist and BLE. Pt is in droplet precautions. Pt did refuse seizure precautions. No further concerns voiced at this time. Pt resting in bed with call light in reach. Plan of care ongoing.
[2025-05-29] MEDS: humaLOG MIX 75/25 3ML FLEXPEN 20 UNIT SUBCUT (06:45)
[2025-05-29 07:43] VITALS: BP 117/67; PULSE 83; RESP 16; TEMP 36.5; O2SAT 94
[2025-05-29 08:00] VITALS: PULSE 70
[2025-05-29 08:31] LABS: Alanine Aminotransferase 26 U/L (12-78); Albumin Level 3.7 g/dl (3.5-5.0); Albumin/Globulin Ratio 1.1 (1.1-1.8); Alkaline Phosphatase 164 U/L (38-126); Anion Gap 14.0 mEq/L (5-15); Aspartate Amino Transferase 56 U/L (14-36); Bilirubin,Total 0.9 mg/dl (0.2-1.3); Blood Urea Nitrogen 40 mg/dl (7-17); Calcium 8.6 mg/dl (8.4-10.2); Carbon Dioxide 26 mmol/L (22.0-30.0); Chloride 96 mmol/L (98-107); Creatinine Clearance Estimated 61 mL/min (50-200); Creatinine,Serum 1.30 mg/dl (0.52-1.04); Estimated Glomerular Filt Rate 41 ml/min (>60); GFR (African American) 49 ML/MIN (>60); Globulin 3.3 g/dL (1.3-3.2); Glucose 143 mg/dl (74-100); Hematocrit 36.1 % (37.0-47.0); Hemoglobin 12.0 g/dL (12.2-16.2); Immature Granulocytes % 0.2 %; Magnesium 2.1 mg/dl (1.6-2.3); Mean Corpuscular HGB Conc 33.2 g/dL (31.8-35.4); Mean Corpuscular Hemoglobin 33.4 pg (27.0-31.2); Mean Corpuscular Volume 100.6 fl (81-99); Nucleated Red Blood Cells % 0 %; Platelet Count 144 K/mm3 (142-424); Potassium 4.0 mmoL/L (3.5-5.1); Red Blood Count 3.59 M/mm3 (4.20-5.40); Red Cell Distribution Width-SD 59.3 fL; Sodium 132 mmol/L (136-145); Total Protein,Serum 7.0 g/dl (6.3-8.2); White Blood Count 5.1 K/mm3 (4.8-10.8)
--- NOTE | 2025-05-29 09:19 | EXP.DC.SUM ---
General Admission date:: 05/27/25 Discharge date: 05/29/25 HPI HPI HPI: Patient is a 70-year-old female with past medical history of atrial fibrillation, heart failure with reduced ejection fraction status post defibrillator, pacemaker, diabetes mellitus, pulmonary hypertension, cardiomyopathy, hypertension lipidemia anxiety who presents to the hospital for shortness of breath. According to patient she has been feeling short of breath for past few days, she also had an episode of syncope. She also mentions she has been having wheezing. Otherwise denied fevers chills diarrhea constipation dysuria. Hospital Course Hospital Course Hospital Course: Patient is a 70-year-old female with past medical history of atrial fibrillation, heart failure with reduced ejection fraction status post defibrillator, pacemaker, diabetes mellitus, pulmonary hypertension, cardiomyopathy, hypertension lipidemia anxiety who presents to the hospital for shortness of breath. According to patient she has been feeling short of breath for past few days, she also had an episode of syncope. She also mentions she has been having wheezing. Otherwise denied fevers chills diarrhea constipation dysuria. Initially thought to have CHF exacerbation. Admitted for further management. Concerned she may have URI/bronchitis at this time. Respiratory panel obtained today. Problems addressed as follows: Acute on chronic combined heart failure Hypertension CAD A-fib - Patient has history of grade 3 diastolic dysfunction and heart failure with reduced ejection fraction with 30%. BNP elevated on admission above thousand. Increased diuretics on admission. Had negative fluid status during admission. Good response to diuresis. Diuretics decreased back to 1 mg twice daily to maintain euvolemia. Continue home medications for heart failure and Lipitor 10 mg daily, dapagliflozin 10 mg daily, digoxin 125 micro daily, metoprolol succinate 12.5 mg daily, spironolactone 25 mg twice daily. Continues Xarelto 20 mg nightly Dyspnea Human metapneumovirus infection -Review of CTA of chest shows patchy consolidation concerning for edema. Given persistent cough and wheeze, complete respiratory panel was obtained. Found to be positive for human metapneumovirus. Weaned to room air after diuresis after the first 24 hours. Remained stable on room air for over 24 hours. White count remained stable during admission. Initiated on Combivent due to component of wheeze. In no respiratory distress. Counseled on typical time course for resolution of symptoms/viral infection. Hyperglycemia due to diabetes mellitus -A1c 7.0 in December. Treated with sliding scale insulin and fingersticks ACHS during admission. Glucose did well. Continue dapagliflozin as above. Seizure disorder: Continue home phenobarbital Elevated creatinine likely CKD stage III Kidney function remained stable during admission. Creatinine 1.3 on day of discharge. BUN 40. Urine culture growing gram-negative rods. 20-40,000 CFU's. Speciated out to Klebsiella. Sensitive to cephalosporins for which she was treated with ceftriaxone initially. Also sensitive to tetracyclines. Patient prescribed doxycycline prior to admission. Recommend taking 1 tablet twice daily for 5 days to complete 7 days of therapy. Total time spent on discharge 35 minutes in counseling, documentation, chart review, and direct care with patient. Exam Data for Last 24 hours Vital signs and Labs for Last 24 Hours: Temp Pulse Resp BP Pulse Ox O2 Del Method O2 Flow Rate 97.7 F 83 16 117/67 94 L Room Air 15 05/29/25 07:43 05/29/25 07:43 05/29/25 07:43 05/29/25 07:43 05/29/25 07:43 05/29/25 08:03 05/26/25 21:08 Laboratory Results - last 24 hr 05/28/25 08:47: WBC 5.0, RBC 3.28 L, Hgb 11.1 L, Hct 32.7 L, MCV 99.7 H, MCH 33.8 H, MCHC 33.9, RDW 16.0, Plt Count 166, MPV 9.6, Neut % (Auto) 61.1, Lymph % (Auto) 24.1, Hopkins % (Auto) 10.0 H, Eos % (Auto) 3.6, Baso % (Auto) 0.6, Neut # (Auto) 3.1, Lymph # (Auto) 1.2, Hopkins # (Auto) 0.5, Eos # (Auto) 0.2, Baso # (Auto) 0.0, Sodium 129 L, Potassium 4.3, Chloride 95 L, Carbon Dioxide 22, Anion Gap 16.3 H, BUN 42 H, Creatinine 1.50 H, Estimated Creat Clear 52, Estimated GFR 35 L, Est GFR ( Amer) 42 L, Glucose 230 H, Calcium 8.7, Magnesium 1.9, Total Bilirubin 1.0, AST 57 H, ALT 28, Alkaline Phosphatase 162 H, Total Protein 6.7, Albumin 3.6, Globulin 3.1, Albumin/Globulin Ratio 1.2 05/28/25 11:10: Chlamy pneumoniae PCR Not detected, Adenovirus (PCR) Not detected, B. pertussis DNA (PCR) Not detected, Coronavirus OC43 (PCR) Not detected, Coronavirus HKU1 (PCR) Not detected, Coronavirus 229E (PCR) Not detected, SARS-CoV-2 (PCR) Not detected, Coronavirus NL63 (PCR) Not detected, Human Metapneumovir PCR Detected A, Influenza A (H1) PCR Not detected, Influ A (H1N1/09) PCR Not detected, Influenza A (H3) PCR Not detected, Influenza Type A (PCR) Not detected, Influenza Type B (PCR) Not detected, M. pneumoniae (PCR) Not detected, Parainfluenza 1 (PCR) Not detected, Parainfluenza 2 (PCR) Not detected, Parainfluenza 3 (PCR) Not detected, Parainfluenza 4 (PCR) Not detected, RSV (PCR) Not detected, Entero/Rhino (PCR) Not detected 05/29/25 07:20: WBC 5.1, RBC 3.59 L, Hgb 12.0 L, Hct 36.1 L, MCV 100.6 H, MCH 33.4 H, MCHC 33.2, RDW 15.9, Plt Count 144, MPV 10.1, Neut % (Auto) 62.7, Lymph % (Auto) 23.2, Hopkins % (Auto) 10.0 H, Eos % (Auto) 3.3, Baso % (Auto) 0.6, Neut # (Auto) 3.2, Lymph # (Auto) 1.2, Hopkins # (Auto) 0.5, Eos # (Auto) 0.2, Baso # (Auto) 0.0, Sodium 132 L, Potassium 4.0, Chloride 96 L, Carbon Dioxide 26, Anion Gap 14.0, BUN 40 H, Creatinine 1.30 H, Estimated Creat Clear 61, Estimated GFR 41 L, Est GFR ( Amer) 49 L, Glucose 143 H D, Calcium 8.6, Magnesium 2.1 D, Total Bilirubin 0.9, AST 56 H, ALT 26, Alkaline Phosphatase 164 H, Total Protein 7.0, Albumin 3.7, Globulin 3.3 H, Albumin/Globulin Ratio 1.1 I & O for Last 24 hours: Intake & Output 05/26/25 05/27/25 05/28/25 05/29/25 23:59 23:59 23:59 23:59 Intake Total 800 / 920 1130 / 1130 Output Total 1950 / 1950 675 / 675 400 / 400 Balance -1150 / -1030 455 / 455 -400 / -400 Weight 90.718 kg 94.03 kg 92.351 kg 93.077 kg Microbiology Reports for the Last 24 Hours: Microbiology 05/26/25 21:47 Urine,Clean Catch Urine Culture - Final Klebsiella pneumoniae Constitutional Constitutional: no acute distress, obese, chronically ill appearing and cooperative *Routine HEENT Exam Head: Present normocephalic Eye: Present EOMI and PERRL ENT: Present mucous membranes moist *Routine Neck Exam Neck: Present supple; Absent lymphadenopathy *Routine Respiratory Exam Respiratory: Present prolonged expiratory phase, rhonchi and wheezes (minimal end expiratory); Absent crackles *Routine Cardiovascular Exam Cardiovascular: Present RRR *Routine Abdominal Exam Abdominal: Present soft and normoactive bowel sounds; Absent tenderness *Routine Rectal Exam Patient deferred: visual exam *Routine Exam Patient deferred: external exam *Routine Extremities Exam Extremities: Present edema (trace in ankles); Absent cyanosis or clubbing *Routine Skin Exam Skin: Present intact and warm; Absent rash *Routine Neurological Exam Neurological: Present alert, oriented X3 and moving all extremities; Absent altered mental status Results Data Completed and Pending Labs on day of discharge: Labs from last 24 hours 05/29/25 05/28/25 05/28/25 07:20 11:10 08:47 WBC 5.1 5.0 RBC 3.59 L 3.28 L Hgb 12.0 L 11.1 L Hct 36.1 L 32.7 L MCV 100.6 H 99.7 H MCH 33.4 H 33.8 H MCHC 33.2 33.9 RDW 15.9 16.0 Plt Count 144 166 MPV 10.1 9.6 Neut % (Auto) 62.7 61.1 Lymph % (Auto) 23.2 24.1 Hopkins % (Auto) 10.0 H 10.0 H Eos % (Auto) 3.3 3.6 Baso % (Auto) 0.6 0.6 Neut # (Auto) 3.2 3.1 Lymph # (Auto) 1.2 1.2 Hopkins # (Auto) 0.5 0.5 Eos # (Auto) 0.2 0.2 Baso # (Auto) 0.0 0.0 Sodium 132 L 129 L Potassium 4.0 4.3 Chloride 96 L 95 L Carbon Dioxide 26 22 Anion Gap 14.0 16.3 H BUN 40 H 42 H Creatinine 1.30 H 1.50 H Estimated Creat Clear 61 52 Estimated GFR 41 L 35 L Est GFR ( Amer) 49 L 42 L Glucose 143 H D 230 H Calcium 8.6 8.7 Magnesium 2.1 D 1.9 Total Bilirubin 0.9 1.0 AST 56 H 57 H ALT 26 28 Alkaline Phosphatase 164 H 162 H Total Protein 7.0 6.7 Albumin 3.7 3.6 Globulin 3.3 H 3.1 Albumin/Globulin Ratio 1.1 1.2 Chlamy pneumoniae PCR Not detected Adenovirus (PCR) Not detected B. pertussis DNA (PCR) Not detected Coronavirus OC43 (PCR) Not detected Coronavirus HKU1 (PCR) Not detected Coronavirus 229E (PCR) Not detected SARS-CoV-2 (PCR) Not detected Coronavirus NL63 (PCR) Not detected Human Metapneumovir PCR Detected A Influenza A (H1) PCR Not detected Influ A (H1N1/09) PCR Not detected Influenza A (H3) PCR Not detected Influenza Type A (PCR) Not detected Influenza Type B (PCR) Not detected M. pneumoniae (PCR) Not detected Parainfluenza 1 (PCR) Not detected Parainfluenza 2 (PCR) Not detected Parainfluenza 3 (PCR) Not detected Parainfluenza 4 (PCR) Not detected RSV (PCR) Not detected Entero/Rhino (PCR) Not detected DS: Diagnosis Discharge Diagnosis (1) Acute exacerbation of CHF (congestive heart failure): Status: Acute Code(s): I50.9 - Heart failure, unspecified Qualifiers: Heart failure type: combined systolic and diastolic Qualified Code(s): I50.43 - Acute on chronic combined systolic (congestive) and diastolic (congestive) heart failure (2) Pulmonary edema: Status: Acute Code(s): J81.1 - Chronic pulmonary edema (3) Syncope: Status: Acute Code(s): R55 - Syncope and collapse (4) Hyperglycemia: Status: Acute Code(s): R73.9 - Hyperglycemia, unspecified (5) Diabetes mellitus: Status: Acute Code(s): E11.9 - Type 2 diabetes mellitus without complications Qualifiers: Diabetes mellitus complication detail: with neuropathic arthropathy Diabetes mellitus complication status: with diabetic arthropathy Diabetes mellitus nursing home insulin use: with terminal carman use Diabetes mellitus type: type 2 Qualified Code(s): E11.610 - Type 2 diabetes mellitus with diabetic neuropathic arthropathy; Z79.4 - retirement (current) use of insulin (6) Acute hypokalemia: Status: Resolved Code(s): E87.6 - Hypokalemia (7) Infection due to human metapneumovirus (hMPV): Status: Acute Code(s): B34.8 - Other viral infections of unspecified site (8) UTI (urinary tract infection): Status: Acute Code(s): N39.0 - Urinary tract infection, site not specified Qualifiers: Hematuria presence: without hematuria Urinary tract infection type: acute cystitis Qualified Code(s): N30.00 - Acute cystitis without hematuria (9) Klebsiella infection: Status: Acute Code(s): A49.8 - Other bacterial infections of unspecified site Meds Home Medications and Allergies Home Medications ?Medication ?Instructions ?Recorded ?Confirmed ?Type pantoprazole 40 mg tablet,delayed 40 mg PO BID 12/03/17 05/27/25 History release tramadol 50 mg tablet 50 mg PO Q6HP PRN Mild Pain (Scale 12/03/17 05/27/25 History Score 1-4) phenobarbital 32.4 mg tablet 97.2 mg PO HS 02/12/20 05/27/25 History digoxin 125 mcg (0.125 mg) tablet 125 mcg PO DAILY 03/27/20 05/27/25 History ropinirole 2 mg tablet 2 mg PO HS 03/28/20 05/27/25 History dapagliflozin propanediol 10 mg 10 mg PO DAILY #30 tabs 12/14/24 05/27/25 Rx tablet (Farxiga) allopurinol 100 mg tablet 100 mg PO DAILY 01/11/25 05/27/25 History isosorbide mononitrate 30 mg 30 mg PO DAILY 01/11/25 05/27/25 History tablet,extended release 24 hr loratadine 10 mg tablet 10 mg PO DAILY 01/11/25 05/27/25 History rivaroxaban 20 mg tablet (Xarelto) 20 mg PO QPMWITHMEAL 01/11/25 05/27/25 History bumetanide 1 mg tablet 1 mg PO BIDL #60 tabs 01/12/25 05/27/25 Rx spironolactone 25 mg tablet 25 mg PO BIDL 30 days #0 tabs 01/12/25 05/27/25 Rx insulin human U-100 NPH-regulr 20 unit SQ BIDWMEAL 01/22/25 05/27/25 History 70-30 mix 100 unit/mL subcutaneous susp (Humulin 70/30 U-100 Insulin) metoprolol succinate 25 mg 12.5 mg (1/2 x 25 mg) PO DAILY #30 02/03/25 05/27/25 Rx tablet,extended release 24 hr tabs (Toprol XL) potassium chloride 20 mEq 20 meq PO BID 03/08/25 05/27/25 History tablet,extended release(part/cryst) gabapentin 600 mg tablet 600 mg PO BID 04/12/25 05/27/25 History atorvastatin 10 mg tablet 10 mg PO DAILY 05/27/25 05/27/25 History duloxetine 30 mg capsule,delayed 30 mg PO DAILY 05/27/25 05/27/25 History release valsartan 40 mg tablet 40 mg PO DAILY 05/27/25 05/27/25 History doxycycline hyclate 100 mg tablet 100 mg PO BID 5 days #10 tabs 05/29/25 05/27/25 Rx New Prescriptions to Start Prescriptions: Allergies Allergy/AdvReac Type Severity Reaction Status Date / Time metoclopramide (From REGLAN) Allergy Mild SHAKES Verified 05/26/25 14:18 empagliflozin (From AdvReac Mild itching Verified 05/26/25 14:18 Jardiance) Discharge Plan Disposition Patient Disposition: Home, Self-Care Condition: Fair Follow up Plan Follow up with: Katlyn Salcedo APRN [Nurse Practitioner, Cardiology] - Enter time for follow up Referral Note: please call for appointment Rad Galvan MD [Primary Care Provider, Medical] - Enter time for follow up Referral Note: please call for appointment Prescriptions/Medication Reconciliation: Continued gabapentin 600 mg tablet 600 mg PO BID Patient Comments: TAKE ONE TABLET BY MOUTH EVERY DAY MAY CAUSE DROWSINESS metoprolol succinate [Toprol XL] 25 mg tablet extended release 24 hr 12.5 mg PO DAILY Qty: 30 5RF potassium chloride 20 mEq tablet,ER particles/crystals 20 meq PO BID Patient Comments: TAKE ONE TABLET BY MOUTH TWICE DAILY dapagliflozin propanediol [Farxiga] 10 mg tablet 10 mg PO DAILY Qty: 30 5RF tramadol 50 MG tablet 50 mg PO Q6HP PRN (Reason: Mild Pain (Scale Score 1-4)) pantoprazole 40 MG tablet,delayed release (DR/EC) 40 mg PO BID phenobarbital 32.4 MG tablet 97.2 mg PO HS Humulin 70/30 U-100 Insulin 100 unit/mL (70-30) suspension 20 unit SQ BIDWMEAL Patient Comments: INJECT 100 UNITS SUBCUTANEOUSLY EVERY DAY IN THE MORNING AND INJECT 60 UNITS IN THE EVENING digoxin 125 MCG tablet 125 mcg PO DAILY ropinirole 2 MG tablet 2 mg PO HS allopurinol 100 mg tablet 100 mg PO DAILY loratadine 10 mg tablet 10 mg PO DAILY Patient Comments: TAKE ONE TABLET BY MOUTH EVERY DAY isosorbide mononitrate 30 mg tablet extended release 24 hr 30 mg PO DAILY Xarelto 20 mg tablet 20 mg PO QPMWITHMEAL bumetanide 1 mg tablet 1 mg PO BIDL Qty: 60 0RF spironolactone 25 mg tablet 25 mg PO BIDL 30 Days Qty: 0 0RF duloxetine 30 mg capsule,delayed release(DR/EC) 30 mg PO DAILY Patient Comments: TAKE ONE CAPSULE BY MOUTH EVERY DAY atorvastatin 10 mg tablet 10 mg PO DAILY valsartan 40 mg tablet 40 mg PO DAILY doxycycline hyclate 100 mg tablet 100 mg PO BID 5 Days Qty: 10 0RF Discontinued guaifenesin 600 mg tablet extended release 12hr 600 mg PO Q12H PRN (Reason: cough) Qty: 20 0RF Problem Reconciliation Problems Reviewed?: Yes Patient Discharge Instructions ACTIVITY: Continue current activity DIET: continue same diet Patient Instructions: DI for Heart Failure, Stop Light Pneumonia, Stop Light Heart Failure Print Language: French Providers Primary Care Provider: Rad Galvan Admit Provider: Seth Liu Attending Provider: Seth Liu
[2025-05-29] MEDS: METOPROLOL SUCCINATE XL 25MG TABLET 12.5 MG PO (09:29)
[2025-05-29 09:30] VITALS: PULSE 76
[2025-05-29] MEDS: DIGOXIN 0.125MG TABLET 125 MCG PO (09:30)
[2025-05-29] MEDS: ISOSORBIDE MONO 30MG TAB.ER.24H 30 MG PO (09:30)
[2025-05-29] MEDS: PANTOPRAZOLE 40MG TABLET 40 MG PO (09:30)
[2025-05-29] MEDS: SPIRONOLACTONE 25MG TABLET 25 MG PO (09:30)
[2025-05-29] MEDS: LORATADINE 10MG TABLET 10 MG PO (09:30)
[2025-05-29] MEDS: DAPAGLIFLOZIN PROPANEDIOL 10 MG TABLET PO (09:32)
[2025-05-29] MEDS: IRBESARTAN 75MG TABLET 37.5 MG PO (09:32)
[2025-05-29] MEDS: ALLOPURINOL 100MG TABLET 100 MG PO (09:33)
[2025-05-29] MEDS: BUMETANIDE 1MG/4ML VIAL 1 MG IV (09:33)
[2025-05-29] MEDS: GABAPENTIN 600MG TABLET 600 MG PO (09:41)
[2025-05-29] MEDS: COMBIVENT 20MCG/100MCG RESPIMAT INHALER 1 PUFF IH (10:36)
--- NOTE | 2025-05-30 10:12 | SW/DCPLANNER ---
Spoke with patient on the phone. Patient stated that she is doing well. Patient stated that she hasnt called yet to schedule her follow up appointments. Patient stated that she just wishes she could get rid of the cough. Patient stated that she did not get any new medicine prescribed to her. Patient stated that she has no concerns or questions at this time. Bryan Aldrich
== END 2025-05-29 12:37 | disposition home or self-care (01) ==
LOC: ER 23:58 → 2ND 05-27 02:19
PROVIDERS: Internal Medicine; Nurse Practitioner; Admitting Provider Internal Medicine Adolescent Medicine; Emergency Provider Emergency Medicine; PCP Family Medicine; Visit Provider Internal Medicine Adolescent Medicine
DX: J81.1 Chronic pulmonary edema (principal); I11.0 Hypertensive heart disease with heart failure; E11.65 Type 2 diabetes mellitus with hyperglycemia; E11.610 Type 2 diabetes mellitus with diabetic neuropathic arthropathy; I50.43 Acute on chronic combined systolic (congestive) and diastolic (congestive) heart failure; E78.5 Hyperlipidemia, unspecified; N30.00 Acute cystitis without hematuria; G40.909 Epilepsy, unspecified, not intractable, without status epilepticus; I48.91 Unspecified atrial fibrillation; F41.9 Anxiety disorder, unspecified; I25.10 Atherosclerotic heart disease of native coronary artery without angina pectoris; I42.9 Cardiomyopathy, unspecified; E66.9 Obesity, unspecified; R55 Syncope and collapse; E87.6 Hypokalemia; B34.8 Other viral infections of unspecified site; I27.20 Pulmonary hypertension, unspecified; A49.8 Other bacterial infections of unspecified site; Z68.38 Body mass index [BMI] 38.0-38.9, adult; Z88.8 Allergy status to other drugs, medicaments and biological substances; Z95.0 Presence of cardiac pacemaker; Z82.49 Family history of ischemic heart disease and other diseases of the circulatory system; Z79.01 Long term (current) use of anticoagulants; Z79.899 Other long term (current) drug therapy; Z79.4 Long term (current) use of insulin; Z83.6 Family history of other diseases of the respiratory system
CPT/HCPCS: 0223U; 36415; 70450; 70496; 70498; 71275; 80048; 80053; 80307; 81001; 82009; 82803; 82962; 83605; 83735; 83880; 84484; 85025; 87086; 87088; 87186; 87633; 93005; 94640; 96374; 96375; 97163; 99285; G0378; J0696; J1885; J1939; Q9967

== ENCOUNTER 2025-06-17 10:39 | Outpatient (CLI) | payer MEDICARE, SELFPAY ==
--- OUTSIDE RECORDS SUMMARY | 2025-04-08 11:00 | XMS_ITS | Encounter Summary ---
Author Organization [facility] Address [address] [place] [address] Care Team Providers Care Manager Imaging Name Role Phone Uli Salcedo Unavailable [phone] Rad Galvan MD Primary Care Provider Encounter Details Date Type Department Care Team (Late st Contact Info) Description 04/08/2025 11:00 AM EDT Office Visit [facility] [place] [address] [place] [address] Elvin Schuler MD [address] [place] [address] Chronic systolic congestive heart failure (CMS/HCC) (Primary [...] original note were not included. [facility] Sara Edwards is [...] of her function later. She is s/P BOBBIN WINDER TENDER-D in 2019 and Impulse CCM device in [...] to follow up closely with cardiology at [place]. A total time of 40 minutes was [...] Procedure Laterality Date APPENDECTOMY N/A Appendectomy from [employer] GALLBLADDER SURGERY N/A Anastomosis Of Gallbladder from [employer] TONSILLECTOMY N/A Tonsillectomy from [employer] [3] Current Outpatient Medications Medication Sig Dispense [...] Description 06/24/2025 12:45 PM EDT Office Visit [facility] [place] [address] [place] [address] Elvin Schuler MD [address] [place] [address] documented as of this encounter Procedures Procedure Name Priority Date/Time Associated Diagnosis Comments BASIC METABOLIC PANEL, PLASMA Routine 04/08/2025 1:05 PM EDT Chronic systolic congestive heart failure (CMS/HCC) documented in this encounter Results * (ABNORMAL) Basic Metabolic Panel, Plasma (04/08/2025 1:05 PM EDT) Glucose, Plasma 116(H) 74 - 99 mg/dL 04/08/2025 1:05 PM EDT [facility] BUN, Plasma 23 8 - 23 mg/dL 04/08/2025 1:05 PM EDT [facility] Creatinine, Plasma 1.04 0.60 - 1.10 mg/dL 04/08/2025 1:05 PM EDT [facility] BUN/Creatinine Ratio 22 04/08/2025 1:05 PM EDT [facility] Sodium, Plasma 133(L) 136 - 145 mmol/L 04/08/2025 1:05 PM EDT [facility] Potassium, Plasma 04/08/2025 1:05 PM EDT [facility] Comment: Hemolyzed Chloride, Plasma 99 97 - 107 mmol/L 04/08/2025 1:05 PM EDT [facility] CO2, Plasma 24 22 - 29 mmol/L 04/08/2025 1:05 PM EDT [facility] Anion Gap 10 6 - 16 mmol/L 04/08/2025 1:05 PM EDT [facility] Total Calcium, Plasma 9.6 8.9 - 10.2 mg/dL 04/08/2025 1:05 PM EDT [facility] eGFRcr 59.0 mL/min/1.7 3m*2 04/08/2025 1:05 PM EDT [facility] Comment:Reported eGFRcr in m L/min/1.73m2 is based the CKD-EPI 2020 equation that does not use a race coefficient. Blood Venous blood specimen / Unknown 04/08/2025 12:36 PM EDT us Chika Orellana [employer] LAB BLOOD ORDERABLES Final Result [facility] [address] [place] [address] documented in this encounter Visit Diagnoses Diagnosis [...] documented as of this encounter Care Teams Manager Imaging Relationship Specialty Start Date End Date Rad Galvan MD [address] [place] [address] PCP - General 04/08/25 Uli Salcedo PA [address] [place] [address] Referring Physician 02/03/25 documented as of this encounter
--- OUTSIDE RECORDS SUMMARY | 2025-06-17 10:42 | XMS_ITS | Encounter Summary ---
Author Organization [facility] Address [address] [place] [address] Care Team Providers Care High Heel Builder Name Role Phone Andrew Lee MD Primary Care Provider [phone] Uli Salcedo Unavailable [phone] Rad Galvan MD Primary Care Provider [phone] Encounter Details Date Type Department Care Team (Late st Contact Info) Description 04/07/2025 Telephone [facility] [place] [facility] [address] [facility] [place] [address] Elvin Schulre MD [address] [place] [address] Social History Tobacco Use Types [...] Description 06/24/2025 12:45 PM EDT Office Visit [facility] [place] [facility] [address] [place] [address] Elvin Schuler MD [address] [place] [address] documented as of this encounter Visit Diagnoses [...] documented as of this encounter Care Teams High Heel Builder Relationship Specialty Start Date End Date Andrew Lee MD [address] [place] [address] [address] [place] [address] PCP - General 04/06/21 04/07/25 Rad Galvan MD [address] [place] [address] PCP - General 04/08/25 Uli Salcedo PA [address] [place] [address] Referring Physician 02/03/25 documented as of this encounter
--- OUTSIDE RECORDS SUMMARY | 2025-06-17 10:43 | XMS_ITS | Encounter Summary ---
Author Organization [facility] Address [address] [place] [address] Care Team Providers Care Boiler Or Engine Operator Name Role Phone Rad Galvan MD Primary Care Provider + Encounter Details Date Type Department Care Team (Late st Contact Info) Description 05/03/2025 [facility] [address] [place] [address] [facility] [address] [place], [place] [id number] Social History Tobacco Use Types Packs/Day Years Used Date Smoking Tobacco: Former Cigarettes 0.1 2 0 11/24/1980 - 1982 Smokeless Tobacco: Never Comments:In my Twenty PHQ-2 Answer Date Recorded Retired PHQ-9: Brief Depression Severity Measure Score 0 08/18/2023 PHQ-2 Answer Date Recorded Patient Health Questionnaire-2 Score 1 01/07/2025 Comments Unknown Sex and Gender Information Value Date Recorded Sex Assigned at Female 03/31/2025 7:05 PM EDT Legal Sex Female 11:42 AM EDT Gender Identity Not on file Sexual Orientation Straight 03/31/2025 7: 05 PM EDT documented as of this encounter Plan of Treatment Upcoming Encounters Date Type Department Care Team (Late st Contact Info) Description 07/13/2025 1:00 PM EDT Office Visit [facility] [address] [facility] [address] [place] [address] Sidney Barraza MD [address] [place] [address] 08/01/2025 10:15 AM EDT Office Visit [facility] [address] [place] [address] Rad Galvan MD [address] [place] [address] documented as of this encounter Visit Diagnoses Not on filedocumented in this encounter Additional Health Concerns Assessment Noted Time PHQ-2 Depression Total Score: 1 02/17/20 24 10:24 AM EDT documented as of this encounter Care Teams Boiler Or Engine Operator Relationship Specialty Start Date End Date Rad Galvan MD [address] [place] [address] PCP - General Family Medicine 04/15/22 documented as of this encounter
--- OUTSIDE RECORDS SUMMARY | 2025-06-17 10:43 | XMS_ITS | Clinical Summary ---
Author Organization [facility] Address [address] [place] [address] Care Team Providers Care Ladle Handler Name Role Phone Uli Salcedo Unavailable [phone] Rad Galvan MD Primary Care Provider [phone] Allergies Active Allergy Reactions Criticality Noted Date [...] Encounters Date Type Department Care Team Description 06/16/2025 Telephone [facility] [place] [address] [place] [address] Elvin Schuler MD HCN - Patient Message 04/26/[facility] [address] [address] Yaritza Johnosn RN 04/08/2025 11:00 AM EDT [facility] [address] [phone] Elvin Schuler MD Chronic systolic congestive heart failure (CMS/HCC) (Primary Dx) 04/08/2025 Travel 04/07/[address] [address] Elvin Schuler MD 03/30/2025 10:40 AM EDT - 03/30/2025 12:00 PM EDT Surgery Cardiac Criminalist Technician [address] [place] [phone] Brodie Carranza MD Cardiomems w/Right Heart Cath [19041 (CPT )] 03/30/2025 9:45 AM EDT - 03/30/2025 2:35 PM EDT Hospital Encounter Cardiac Criminalist Technician [address] [place] [address] Brodie Carranza MD Congestive heart failure, unspecified [...] Description 06/24/2025 12:45 PM EDT Office Visit [facility] [place] [facility] [address] [facility] [place] [address] Elvin Schuler MD [address] [place] [address] Health Maintenance Due Date Last Done Comments [facility]-Bone Density Scan 1957 [facility]-/Child/Adol SDOH Screenings 1957 Diabetes: Dental Exam 1967 [facility]- SDOH Screenings 1975 [facility]-Adult SDOH Screenings 1975 [facility]-DTaP,Tdap,and Td Vaccines (1 - Tdap) 01/24/1997 01/23/1997 CT Colonography 2002 Colonoscopy 2002 FIT 2002 FOBT 2002 Sigmoidoscopy 2002 [facility]-Breast Cancer Screening 2007 [facility]-Zoster Vaccines (1 of 2) 2007 [id number] Vaccine ( season) 2024 09/06/2022, 11/28/2021, 03/06/2021, Additional history [...] - 99 mg/dL 04/08/2025 1:05 PM EDT [facility] BUN, Plasma 23 8 - 23 mg/dL 04/08/2025 1:05 PM EDT [facility] Creatinine, Plasma 1.04 0.60 - 1.10 mg/dL 04/08/2025 1:05 PM EDT [facility] BUN/Creatinine Ratio 22 04/08/2025 1:05 PM EDT [facility] Sodium, Plasma 133(L) 136 - 145 mmol/L 04/08/2025 1:05 PM EDT [facility] Potassium, Plasma 04/08/2025 1:05 PM EDT [facility] Comment: Hemolyzed Chloride, Plasma 99 97 - 107 mmol/L 04/08/2025 1:05 PM EDT [facility] CO2, Plasma 24 22 - 29 mmol/L 04/08/2025 1:05 PM EDT [facility] Anion Gap 10 6 - 16 mmol/L 04/08/2025 1:05 PM EDT [facility] Total Calcium, Plasma 9.6 8.9 - 10.2 mg/dL 04/08/2025 1:05 PM EDT [facility] eGFRcr 59.0 mL/min/1.7 3m*2 04/08/2025 1:05 PM EDT [facility] Comment:Reported eGFRcr in m L/min/1.73m2 is based the CKD-EPI 2020 equation that does not use a race coefficient. Blood Venous blood specimen / Unknown 04/08/2025 12:36 PM EDT us Chika Orellana WINDOWS APPLICATION DEVELOPER LAB BLOOD ORDERABLES Final Result [facility] [address] [place] [address] * CARDIOMEMS W/RIGHT HEART CATH (03/30/2025 11:39 [...] into the left pulmonary artery, percutaneous approach. ([id number]) Access: Right Jugular vein 11Fr [place] Sheath Procedure: After obtaining a consent, the [...] was inserted through the needle, an 11Fr [place] sheath was inserted over the wire, subsequently blood was aspirated and the sheath flushed. Subsequently a 7 [place]an wedge catheter was passed through the [place] sheath into the RA, RV and PA [...] right pulmonary artery for calibration. Ultimately the [place] sheath was withdrawn with patient exhaling during the maneuver and 10 minutes of manual pressure attained hemostasis. Ultimately patient [facility] in stable condition without immediate complications. [...] Co-Oximetry Mixed Venous (03/30/2025 11:23 AM EDT) [facility] POCT Oxyhemoglobin, Mixed Venous 59.1 % 03/30/2025 11:24 AM EDT [facility] Imaging Engineer ID Eva Hernandez 03/30/2025 11:24 AM EDT [facility] Device ID [id number] 1 03/30/2025 11:24 AM EDT [facility] POCT Sample Site PA 03/30/2025 11:24 AM EDT [facility] POCT Total Hemoglobin 11.8 11.2 - 15.7 g/dL 03/30/2025 11:24 AM EDT [facility] 03/30/2025 11:2 3 AM EDT 03/30/2025 11:24 AM EDT Brodie Carranza MD LAB POINT OF CARE TEST DOCKED DEVICE UNSOLICITED RESULTS Final Result Performing Organization Address City/[facility] Co de Phone Number [facility] [address] [place] [address] * POCT CO-Oximitry, Venous (03/30/2025 11:19 AM EDT) [facility] POCT OXYHEMOGLOBIN, VENOUS 64 40 - 70 % 03/30/2025 11:20 AM EDT [facility] Imaging Engineer ID Eva Hernandez 03/30/2025 11:20 AM EDT [facility] Device ID [id number] 1 03/30/2025 11:20 AM EDT [facility] POCT Sample Site SVC 03/30/2025 11:20 AM EDT [facility] POCT Total Hemoglobin 12.1 11.2 - 15.7 g/dL 03/30/2025 11:20 AM EDT [facility] Venous blood specimen / Unknown 03/30/2025 11:19 AM EDT 03/30/2025 11:20 AM EDT Brodie Carranza MD LAB POINT OF CARE TEST DOCKED DEVICE UNSOLICITED RESULTS Final Result Performing Organization Address City/[facility] Co de Phone Number [facility] [address] [place] [address] * Loco Hepatitis C Antibody (11/26/2020 6:51 PM EST) [facility]oco Hepatitis C Ab NEGATIVE Reference Range: Negative [facility] 11/26/2020 6:51 PM EST 11/26/2020 7:09 PM EST us Justo Morse MD LAB BLOOD ORDERABLES Final Re sult [facility] from Last 3 Months or Most Recently Relevant to Health Maintenance Insurance [employer] MEDICARE Advance Directives Documents on File Type Date Recorded Patient Trial Mgr Expl anation Advance Directives and Living Will 03/30/2025 LIVING WILL DIRECTIV E Healthcare Agents on File Name Relationship Healthcare Agent Relationshi p Communication Yennifer Edwards Daughter Next of Kin Care Teams Ladle Handler Relationship Specialty Start Date End Date Rad Galvan MD [address] [place] [address] PCP - General 04/08/25 Uli Salcedo PA [address] [place] [address] Referring Physician 02/03/25
--- OUTSIDE RECORDS SUMMARY | 2025-06-17 10:43 | XMS_ITS | Encounter Summary ---
Author Organization [facility] Address [address] [id number] Care Team Providers Care Sand And Gravel Plant Operator Name Role Phone Uli Salcedo Unavailable [phone] Rad Galvan MD Primary Care Provider [phone] Encounter Details Date Type Department Care Team (Late st Contact Info) Description 04/26/2025 Telephone [facility] [place] [address] [facility] [place] [address] Yaritza Johnson, RN [facility] [address] [place] [address] Social History Tobacco Use Types Packs/Day Years [...] Description 06/24/2025 12:45 PM EDT Office Visit [facility] [place] [facility] [address] [place] [address] Elvin Schuler MD [address] [place] [address] documented as of this encounter Visit Diagnoses [...] documented as of this encounter Care Teams Sand And Gravel Plant Operator Relationship Specialty Start Date End Date Rad Galvan MD [address] [place] [address] PCP - General 04/08/25 Uli Salcedo PA [address] [place] [address] Referring Physician 02/03/25 documented as of this encounter
--- OUTSIDE RECORDS SUMMARY | 2025-06-17 10:43 | XMS_ITS | Encounter Summary ---
Author Organization [facility] Address [address] [place] [address] Care Team Providers Care Visual Merchandising Coordinator Name Role Phone Andrew Lee MD Primary Care Provider [phone] Uli Salcedo Unavailable [phone] Rad Galvan MD Primary Care Provider [phone] Encounter Details Date Type Department Care Team (Late st Contact Info) Description 01/11/2025 Orders Only External Location [address] [place] [address] Uli Salcedo PA [address] [place], [place] [phone] Social History Tobacco Use Types Packs/Day Years [...] Description 06/24/2025 12:45 PM EDT Office Visit [facility] [place] [facility] [address] [facility] [place] [address] Elvin Schuler MD [address] [place] [address] documented as of this encounter [...] on filedocumented in this encounter Care Teams Visual Merchandising Coordinator Relationship Specialty Start Date End Date Andrew Lee MD [address] [place] [address] [address] [place] [address] PCP - General 04/06/21 04/07/25 Rad Galvan MD [address] [place] [address] PCP - General 04/08/25 Uli Salcedo PA [address] [place] [address] Referring Physician 02/03/25 documented as of this encounter
--- OUTSIDE RECORDS SUMMARY | 2025-06-17 10:43 | XMS_ITS | Encounter Summary ---
[facility] Organization [facility] Address [address] [place] [address] Care Team Providers Care Executive Vp Name Role Phone Rad Galvan MD Primary Care Provider + Reason for Visit * Reason Comments Med Refill Encounter Details Date Type Department Care Team (Late st Contact Info) Description 04/20/2025 Refill [facility] [address] [place] [address] aRd Galvan MD [address] [place] [address] Social History Tobacco Use Types Packs/Day Years [...] Description 07/13/2025 1:00 PM EDT Office Visit [facility] [address] [place] [address] [address] [place] [address] Sidney Barraza MD [address] [facility] [address] [address] 08/01/2025 10:15 AM EDT Office Visit [facility] [address] [place] [address] Rad Galvan MD [address] [place] [address] documented as of this encounter Visit Diagnoses Not on filedocumented in this encounter Additional Health Concerns Assessment Noted Time PHQ-2 Depression Total Score: 1 02/17/20 24 10:24 AM EDT documented as of this encounter Care Teams Executive Vp Relationship Specialty Start Date End Date Rad Galvan MD [address] [place] [address] PCP - General Family Medicine 04/15/22 documented as of this encounter
--- OUTSIDE RECORDS SUMMARY | 2025-06-17 10:43 | XMS_ITS ---
Author Organization [facility] Address [address] [place] [address] Care Team Providers Care Sports Journalist Name Role Phone Rad Galvan MD Primary Care Provider + [facility] Status:Enrolled (Active) Start date:04/13/2025 Enrollment date:04/13/2025 Current support & services provided:Adherence- Cholesterol, Adherence- Hypertension Linked medications:Atorvastatin Calcium (Active), Valsartan (Active) Overview Atorvastatin and valsartan filled 03/26/2025 #30 day both have refills Case Team Name Relationship Phone Danielle Da Silva LPN(Responsible Staff) Licensed Mane cody Nurse Continued Care and Services Coordination
--- OUTSIDE RECORDS SUMMARY | 2025-06-17 10:43 | XMS_ITS | Clinical Summary ---
[facility] Address [address] [place] [address] Care Team Providers [employer] Name Role Phone Rad Galvan MD Primary Care Provider + Allergies Active Allergy Reactions Criticality Noted Date Comments Metoclopramide Rash Low 04/15/2022 Medications Indiahoma-3 Fatty Acids (fish oil) 1000 MG capsule capsule Take 2 capsules by mouth Daily With Breakfast. Active multivitamin with minerals tablet tablet Take 1 tablet by mouth Daily. Active rivaroxaban (XARELTO) 20 MG tablet Take 1 tablet by mouth Daily. Active polyethylene glycol (MiraLax) 17 GM/SCOOP powderIndication s:Drug-induced constipation Take 17 g by mouth Daily. 850 g 2 05/13/20 23 Active nitroglycerin (NITROSTAT) 0.[address] 1 tablet under the tongue Every 5 (Five) Minutes As Needed for Chest Pain. Take no more than 3 doses in 15 minutes. 30 tablet 11/18/20 23 Active loratadine (CLARITIN) 10 MG tabletIndication s:Allergic rhinitis due to pollen TAKE ONE TABLET BY MOUTH EVERY DAY 30 tablet 11 05/28/20 24 Active spironolactone (ALDACTONE) 25 MG tablet TAKE ONE TABLET BY MOUTH EVERY DAY 30 tablet 11 08/03/20 24 Active Comfort EZ Pen Frost 32G X 6 MM misc USE DIRECTED FOR insulin injections 100 each 5 12/03/19 25 Active dapagliflozin Propanediol (Farxiga) 10 MG tablet Take by mouth. From cardio Active valsartan (Diovan) 40 MG tabletIndication s:Chronic left ventricular systolic dysfunction Take 1 tablet by mouth 2 (Two) Times a Day. 01/17/20 25 Active insulin aspart (NovoLOG FlexPen) 100 UNIT/ML solution pen-injector sc penIndications:T ype 2 diabetes mellitus with hyperglycemia, with long-term current use of insulin Inject 8 Units under the skin into the appropriate area as directed As Needed (glucose >400). 3 mL 01/20/20 25 Active metoprolol succinate XL (TOPROL-XL) 25 MG 24 hr tablet Take 0.5 tablets by mouth Daily. 02/04/20 25 Active Continuous Glucose Learning [employer] Coordinator (FreeStyle Simón 3 Bronson) deviceIndication s:Type 2 diabetes mellitus with hypoglycemia without coma, with long-term current use of insulin,Type 2 diabetes mellitus with hyperglycemia, with long-term current use of insulin Use 1 each Daily. 1 each 02/12/20 25 Active Continuous Glucose Sensor (FreeStyle Simón 3 Plus Sensor)Indicatio ns:Type 2 diabetes mellitus with hypoglycemia without coma, with long-term current use of insulin,Type 2 diabetes mellitus with hyperglycemia, with long-term current use of insulin Use Every 15 (Fifteen) Days. 2 each 11 02/12/20 25 Active potassium chloride (KLOR-CON M20) 20 MEQ CR tabletIndication s:halfway current use of diuretic TAKE ONE TABLET BY MOUTH TWICE DAILY 60 tablet 3 03/02/20 25 Active Semaglutide,0.25 or 0.5MG/DOS, (OZEMPIC) 2 MG/3ML solution pen-injectorIndi cations:Type 2 diabetes mellitus with hyperglycemia, with long-term current use of insulin Inject 0.25 mg under the skin into the appropriate area as directed 1 (One) Time Per Week. 04/07/20 25 Active gabapentin (NEURONTIN) 600 MG tabletIndication s:Diabetic peripheral neuropathy associated with type 2 diabetes mellitus Take 1 tablet by mouth 2 (Two) Times a Day. 60 tablet 2 04/07/20 25 Active isosorbide mononitrate (IMDUR) 30 MG 24 hr tablet Take 1 tablet by mouth Daily. Active allopurinol (ZYLOPRIM) 100 MG tablet Take 1 tablet by mouth Daily. Active insulin NPH-insulin regular (humuLIN 70/30,novoLIN 70/30) (70-30) 100 UNIT/ML injectionIndicat ions:Type 2 diabetes mellitus with hyperglycemia, with long-term current use of insulin 40 units q AM and 40 units q PM 04/07/20 25 Active traMADol (ULTRAM) 50 MG tabletIndication s:Chronic midline low back pain without sciatica Take 1 tablet by mouth Every 6 (Six) Hours As Needed for Moderate Pain. 120 tablet 3 04/12/20 25 Active bumetanide (BUMEX) 1 MG tablet TAKE TWO TABLETS BY MOUTH EVERY DAY 60 tablet 2 04/20/20 25 Active digoxin (LANOXIN) 125 MCG tabletIndication s:Longstanding persistent atrial fibrillation TAKE ONE TABLET BY MOUTH EVERY DAY 30 tablet 06/02/20 25 Active PHENobarbital 32.4 MG tabletIndication s:Seizure disorder TAKE THREE TABLETS BY MOUTH EVERY DAY AT BEDTIME 90 tablet 06/02/20 25 Active rOPINIRole (REQUIP) 2 MG tabletIndication s:Restless leg syndrome TAKE ONE TABLET BY MOUTH EVERY NIGHT 30 tablet 11 06/02/20 25 Active pantoprazole (PROTONIX) 40 MG EC tabletIndication s:Gastroesophage al reflux disease without esophagitis TAKE ONE TABLET BY MOUTH TWICE DAILY 60 tablet 11 06/02/20 25 Active atorvastatin (LIPITOR) 10 MG tabletIndication s:Type 2 diabetes mellitus with hyperglycemia TAKE ONE TABLET BY MOUTH EVERY DAY 30 tablet 11 06/02/20 25 Active rOPINIRole (REQUIP) 2 MG tabletIndication s:Restless leg syndrome TAKE ONE TABLET BY MOUTH EVERY NIGHT 30 tablet 05/28/20 24 2024 Discontinued pantoprazole (PROTONIX) 40 MG EC tabletIndication s:Gastroesophage al reflux disease without esophagitis TAKE ONE TABLET BY MOUTH TWICE DAILY 60 tablet 05/28/20 24 2024 Discontinued atorvastatin (LIPITOR) 10 MG tabletIndication s:Type 2 diabetes mellitus with hyperglycemia TAKE ONE TABLET BY MOUTH EVERY DAY 30 tablet 05/28/20 24 2024 Discontinued digoxin (LANOXIN) 125 MCG tabletIndication s:Longstanding persistent atrial fibrillation TAKE ONE TABLET BY MOUTH EVERY DAY 30 tablet 5 12/01/19 25 2024 Discontinued PHENobarbital 32.4 MG tabletIndication s:Seizure disorder Take 3 tablets by mouth Every Night. 90 tablet 5 04/07/20 25 2024 Discontinued Active Problems Problem Noted Date Diagnosed Date Type 2 diabetes mellitus wit h hyperglycemia, with long-term current use of insulin 01/20/2025 Assessment & Plan (01/20/2025 11:47 AM EST): Patient to continue up titration of Novolin 70/30 increasing to 80 units tomorrow morning and continuing 60 units in the evening. Patient will be given NovoLog FlexPen to use for glucose greater than 400. Administer 8 units with repeat testing every 2 hours or use of CGM to monitor blood sugar Contact me if hypoglycemia develops Bilateral carpal tunnel syndrome 11/18/2023 Assessment & Plan (11/18/2023 2:34 PM EST): Initial diagnosis 11/18/2023. Discussed treatment options. Patient given home exercise program. Type 2 diabetes mellitus wit h stage 3b chronic kidney disease, with long-term current use of insulin 01/23/2023 Assessment & Plan (01/20/2025 11:47 AM EST): Patient has had a recent increase in creatinine due to diuretic use. This will require repeat monitoring in the future. Gabapentin may need to be adjusted based on renal function. Assessment & Plan (02/10/2023 5:27 PM EDT): Renal condition is unchanged. Continue current treatment regimen. Renal condition will be reassessed in 3 months. Class 2 severe obesity due t o excess calories with serious comorbidity and body mass index (BMI) of 38.0 to 38.9 in adult 05/01/2022 Assessment & Plan (10/21/2022 10:25 AM EST): Patient's (Body mass index is 38.72 kg/m .) indicates that they are morbidly obese (BMI > 40 or > 35 with obesity - related health condition) with health conditions that include hypertension, diabetes mellitus and dyslipidemias . Weight is improving with treatment. BMI is is above average; BMI management plan is completed. We discussed portion control, increasing exercise and pharmacologic options including Ozempic. Type 2 diabetes mellitus wit h hypoglycemia without coma, with long-term current use of insulin 04/15/2022 Assessment & Plan (10/21/2022 10:26 AM EST): Diabetes is improving with treatment. Continue current treatment regimen. Diabetes will be reassessed in 3 months. Refilled Novolin 70/30. Assessment & Plan (04/15/2022 9:31 AM EDT): Diabetes is worsening. Discussed foot care. Reminded to get yearly retinal exam. Medication changes per orders. Diabetes will be reassessed in 3 months. 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 Current GFR has patient within the range where she can tolerate only a maximum of 1400 mg of gabapentin daily. She will begin gabapentin 600 mg in the morning and 800 mg in the evening. She will be referred back to [facility] podiatry for topical interventions that may assist with neuropathy pain. Duloxetine 30 mg will be started nightly. Spinal cord stimulator is likely not a option due to patient's severe LV dysfunction Assessment & Plan (02/10/2023 5:28 PM EDT): Diabetes is unchanged. Continue current treatment regimen. Diabetes will be reassessed in 3 months. Assessment & Plan (10/21/2022 10:26 AM EST): Diabetes is improving with treatment. Continue current treatment regimen. Diabetes will be reassessed in 3 months. Patient will contact office if she needs refill on gabapentin prior to her next visit Longstanding persistent atrial fibrillation 03/25 Viral cardiomyopathy 04/15/2022 Seizure disorder 04/15/2022 Encounters Date Type Department Care Team Description 06/02/2025 Refill [facility] [address] [place] [phone] Rad Galvan MD Longstanding persistent atrial fibrillation; Seizure disorder; Restless leg syndrome; Gastroesophageal reflux disease without esophagitis; Type 2 diabetes mellitus with hyperglycemia 05/03/2025 [facility] [address], [place] [address] Brian Baptiste, [facility] 04/20/2025 Refill [facility] [address] [place] [address] Rad Galvan MD 04/12/2025 Refill [facility] [address] [place] [address] Rad Galvan MD Chronic midline low back pain without sciatica 04/12/2025 Telephone [facility] [address] [place] [address] Rad Galvan MD Med Management 04/08/2025 Telephone [facility] [address] [place] [address] Rad Galvan MD Med Management 04/07/2025 10:00 AM EDT Office Visit [facility] [address] [place] [address] Rad Galvan MD Type 2 diabetes mellitus with hyperglycemia, with long-term current use of insulin (Primary Dx); Type 2 diabetes mellitus with hypoglycemia without coma, with long-term current use of insulin; Type 2 diabetes mellitus with hyperglycemia, with long-term current use of insulin; Diabetic peripheral neuropathy associated with type 2 diabetes mellitus; Chronic midline low back pain without sciatica; Seizure disorder 04/07/2025 Travel 04/01/2025 External [employer] [facility] [address], [place] [address] Pharmacy, [employer] 03/31/2025 Telephone [facility] [address] [place] [address] Rad Galvan MD Blood Sugar Problem from Last 3 Months Immunizations Immunization Administration Dates Next Due ABRYSVO (RSV, 60+ or pregnan t women 32-36 wks) 12/25/2023 COVID-19 (MODERNA) BIVALENT 12+YRS 09/06/2022 COVID-19 (PFIZER) Purple Cap Monovalent 11/28/19 22,03/06/2021,02/06/2021 Flu Vaccine Quad PF >36MO 08/10/2021,07/30/2016 Fluzone (or Fluarix & Flulav al for VFC) >6mos 08/10/2021,07/30/2016 Fluzone High-Dose 65+YRS 09/24/2024 Fluzone High-Dose 65+yrs 08/18/2023,09/06/2022 Hepatitis B Adult/Adolescent IM 04/11/2008,10/06,09/02/2007 Pneumococcal Conjugate 20-Valent (PCV20) 024 Pneumococcal, Unspecified 09/12/2016 Td (TDVAX) 01/23/1997 Family History Medical History Relation Name Comments Diabetes [place] Jimenez Hyperlipidemia Daughter Yennifer dEwards Alcohol abuse Father Jakob Fish Hyperlipidemia Father Jakob Fish Hyperlipidemia Mother Meseret Villasenor Diabetes Sister Nicole Brito Hyperlipidemia Sister Nicole Brito Relation Name Status Comments Brother Momo Jimenez Daughter Yennifer Edwards Father Jakob Fish Mother Meseret Villasenor Sister Nicole Brito Social History Tobacco Use Types Packs/Day Years Used Date Smoking Tobacco: Former Cigarettes 0.1 2 0 11/24/1980 - 1982 Smokeless Tobacco: Never Tobacco Cessation:Counseling Given: Not Answered Comments:In my Twenty PHQ-2 Answer Date Recorded Retired PHQ-9: Brief Depression Severity Measure Score 0 08/18/2023 PHQ-2 Answer Date Recorded Patient Health Questionnaire-2 Score 1 01/07/2025 Comments Unknown Sex and Gender Information Value Date Recorded Sex Assigned at Female 03/31/2025 7:05 PM EDT Legal Sex Female 11:42 AM EDT Gender Identity Not on file Sexual Orientation Straight 03/31/2025 7: 05 PM EDT Last Filed Vital Signs Vital Sign Reading Time Taken Comments Blood Pressure 118/62 04/07/2025 9:37 AM EDT Pulse 73 04/07/2025 9:37 AM EDT Temperature 36.4 C (97.5 F) 04/07/2025 9:37 AM EDT Respiratory Rate 20 04/07/2025 9:37 AM EDT Oxygen Saturation 98% 04/07/2025 9:37 AM EDT Inhaled Oxygen Concentration - - Weight 91.2 kg (201 lb) 04/07/2025 9:37 AM EDT Height 154.9 cm (5' 1 ) 04/07/2025 9:37 AM EDT Body Mass Index 37.98 04/07/2025 9:37 AM EDT Plan of Treatment Upcoming Encounters Date Type Department Care Team (Late st Contact Info) Description 07/13/2025 1:00 PM EDT Office Visit [facility] [address] [place] [phone] Sidney Barraza MD [address] [facility] [address] [place] [address] 08/01/2025 10:15 AM EDT Office Visit [facility] [address] [facility] [place] [address] Rad Galvan MD [address] [facility] [place] [address] Health Maintenance Due Date Last Done Comments COLON CANCER SCREENING 5 YEA R SIGMOIDOSCOPY 2002 CT COLONOGRAPHY 2002 FECAL OCCULT BLOOD TEST 2002 FIT Testing (1 year) 2002 TDAP/TD VACCINES (2 - Tdap) 01/23/2007 01/23/1997 ZOSTER VACCINE (1 of 2) 2007 DIABETIC EYE EXAM 02/13/2022 02/13/2021 HEPATITIS C SCREENING 03/28/2022 COVID-19 Vaccine (5 - 2023-2 5 season) 2024 09/06/2022, 11/28/2021, 03/06/2021, Additional history exists ANNUAL WELLNESS VISIT 02/16/2025 02/17/2024 , 02/17/2024, 02/10/2023, Additional history exists DXA SCAN 02/18/2025 02/18/2023, 02/18/2023 MAMMOGRAM 02/18/2025 02/18/2023, 01/23, 02/18/2023, Additional history exists INFLUENZA VACCINE 08/24/2025 09/24/2024, , 09/06/2022, Additional history exists HEMOGLOBIN A1C 10/08/2025 04/07/2025, 12/25, 09/24/2024, Additional history exists URINE MICROALBUMIN-CREATININ E RATIO (uACR) 01/07/2026 01/07/2025 COLOGUARD 02/15/2026 02/15/2023 DIABETIC FOOT EXAM 05/02/2026 05/02/2025, 0 03/17/2024, 03/16/2024, Additional history exists COLONOSCOPY 05/01/2033 05/01/2023 COLORECTAL CANCER SCREENING 05/01/2033 Pneumococcal Vaccine 50+ Completed 02/17/2024, 08/25 Procedures Procedure Name Priority Date/Time Associated Diagnosis Comments SCANNED EKG 05/27/2025 SCANNED - IMAGING 05/26/2025 SCANNED - IMAGING 05/26/2025 SCANNED - IMAGING 05/26/2025 SCANNED - IMAGING 05/26/2025 SCANNED - FOOT EXAM 05/02/2025 SCANNED EKG 04/13/2025 SCANNED - LABS 04/13/2025 SCANNED - IMAGING 04/13/2025 POCT GLYCOSYLATED HEMOGLOBIN (HGB A1C) Routine 04/07/2025 9:42 AM EDT Type 2 diabetes mellitus with hypoglycemia without coma, with long-term current use of insulin Type 2 diabetes mellitus with hyperglycemia, with long-term current use of insulin SCANNED - LABS 03/30/2025 SCANNED - LABS 03/30/2025 POC ALBUMIN/CREATININE RATIO Routine 01/07/2025 3:18 PM EST Type 2 diabetes mellitus with hyperglycemia, with long-term current use of insulin SCANNED - DEXA 02/18/2023 SCANNED - MAMMO 02/18/2023 COLOGUARD Routine 02/15/2023 4:07 PM EDT Colon cancer screening from Last 3 Months or Most Recently Relevant to Health Maintenance Results * ECG Scan (05/27/2025) Only the most recent of2 resultswithin the time period is included. us Rad Galvan MD ECG ORDERABLES Final Re sult * IMAGING SCANNED (05/26/2025) Only the most recent of5 resultswithin the time period is included. Anatomical Region Laterality Modality Radiographic Gracie ging Rad Galvan MD IMG DIAGNOSTIC IMAGING O RDERABLES Final Result * FOOT EXAM SCANNED (05/02/2025) Rad Galvan MD CHART REVIEW TABS Fin al Result * LABS SCANNED (04/13/2025) Only the most recent of3 resultswithin the time period is included. Rad Galvan MD LAB BLOOD ORDERABLES Fin al Result * (ABNORMAL) POC Glycosylated Hemoglobin (Hb A1C) (04/07/2025 9:42 AM EDT) [facility] Hemoglobin A1C 7.8(A) 4.5 - 5.7 % [facility] Lot Number [id number] [facility] Expiration Date 10/26/2026 [facility] Blood 04/07/2025 9:42 AM EDT Rad Galvan MD POINT OF CARE TEST ORDER RICH Final Result [facility]
[address] [place] [address], * (ABNORMAL) Albumin/Creatinine Ratio Urine (01/07/2025 3:18 PM EST) POC ALBUMIN, URINE 30 mg/L POC CREATININE, URINE 50 mg/dL POC Urine Albumin Creatinine Ratio 30-300 <30 Comment:abnormal Lot Number [id number] Expiration Date 10/23/2025 Urine 01/07/2025 3:18 PM EST Result [facility] Rad Galvan MD POINT OF CARE TEST ORDER RICH Final Result * SCANNED - MAMMO (02/18/2023) Anatomical Region Laterality Modality Other Result [facility] Rad Galvan MD CHART REVIEW TABS Fin al Result * SCANNED - DEXA (02/18/2023) Anatomical Region Laterality Modality Other Rad Galvan MD CHART REVIEW TABS Fin al Result * (ABNORMAL) Cologuard - Stool, Per Rectum (02/15/2023 4:07 PM EDT) Cologuard Positive( A) Negative 02/25/2023 5:18 PM EDT [employer] (CLIA #:[id number]) Comment: POSITIVE TEST RESULT. A positive Cologuard result should be followed with a colonoscopy or visual examination of the colon. The normal value (reference range) for this assay is negative. TEST DESCRIPTION: Composite algorithmic analysis of stool DNA-biomarkers with hemoglobin immunoassay. Quantitative values of individual biomarkers are not reportable and are not associated with individual biomarker result reference ranges. Cologuard is intended for colorectal cancer screening of adults of either sex, 45 years or older, who are at average-risk for colorectal cancer (CRC). Cologuard has been approved for use by the U.S. FDA. The performance of Cologuard was established in a cross sectional study of average-risk adults aged 50-84. Cologuard performance in patients ages 45 to 49 years was estimated by sub-group analysis of near-age groups. Colonoscopies performed for a positive result may find as the most clinically significant lesion: colorectal cancer [4.0%], advanced adenoma (including sessile serrated polyps greater than or equal to 1cm diameter) [20%] or non- advanced adenoma [31%]; or no colorectal neoplasia [45%]. These estimates are derived from a prospective cross-sectional screening study of 10,000 individuals at average risk for colorectal cancer who were screened with both Cologuard and colonoscopy. (Kathleen Valdes et al, N Engl J Med 2014;370(14):2169-1369.) Cologuard may produce a false negative or false positive result (no colorectal cancer or precancerous polyp present at colonoscopy follow up). A negative Cologuard test result does not guarantee the absence of CRC or advanced adenoma (pre-cancer). The current Cologuard screening interval is every 3 years. ([place] [employer] and U.S. Multi-Society Task Force). Cologuard performance data in a 10,000 patient pivotal study using colonoscopy as the reference method can be accessed at the following location: www.[email or web address]/results. Additional description of the Cologuard test process, warnings and precautions can be found at [email or web address]. Stool specimen (specimen) Specimen from rectum / Unknown 02/15/2023 4:07 PM EDT 02/18/2023 3:05 PM EDT Rad Galvan MD BODY FLUIDS AND STOOLS O RDERABLES Final Result [employer] (CLIA #:[id number]) [address] 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
--- OUTSIDE RECORDS SUMMARY | 2025-06-17 10:43 | XMS_ITS | Encounter Summary ---
Author Organization [facility] Address [address] [place] [address] Care Team Providers Care Fire Observer Name Role Phone Uli Salcedo Unavailable [phone] Rad Galvan MD Primary Care Provider [phone] Reason for Referral * Home Health (Routine) - Authorized Specialty Diagnoses / Procedures Referred By Contaleida t Referred To Contact Home Health Services Diagnoses Chronic systolic congestive heart failure (CMS/HCC) Chika Linares APRN [address] [place] [address] Phone: tel: fax: Referral ID Status Reason Start Date Expiration Date Visits Requested Visits Authorized [id number] Authorized Specialty Services Required 06/17/2025 12/17/2026 999 999 Reason for Visit * Reason Onset Date Comments HCN - Patient Message 06/16/2025 Encounter Details Date Type Department Care Team (Late st Contact Info) Description 06/16/2025 Telephone [facility] [place] [facility] [address] [facility]. [address] [place] [phone] Elvin Schuler MD [address] [place] [address] HCN - Patient Message Social History Tobacco Use Types Packs/Day Years [...] as of this encounter Miscellaneous Notes * Addendum Note - Neptali Johnson RN - 06/17/2025 9:59 AM EDTAddended by: NEPTALI JOHNSON on: 06/17/2025 09:59 AM Modules accepted: Orders * Telephone Encounter - Neptali Johnson RN - 06/17/2025 9:04 AM EDT Orders received from Chika Linares APRN to order one time dose of IV bumex 4mg. Spoke to Anne at [facility] infusion suite. Stated they could collect labs in infusion and administer IV bumex. Stated order would need to be faxed to [phone]. Orders placed and faxed. Contacted Ms alcantar and updated. Advised to hold oral bumex dose tonight and continue Bumex 2mg BID on Friday or can change to daily if weight is lower. Starting Friday, continue 2mg daily and repeat labs on Friday (order has already been faxed). Message sent to Maycol Grant to arrange an appt with Robina TH on Friday to assess symptoms andmake any additional changes after receiving IV diuretics * Telephone Encounter - Neptali Johnson RN - 06/17/2025 8:49 AM EDT Contacted Ms Alcantar to follow up on repeat labs. Reports she didn't have a chance to repeat labs yesterday. Stated she was up another 1lb with increasing bumex to 2mg BID. PAD 23 from 20. Advised tocontinue bumex 2mg BID thru the w/e. Obtain labs will obtain. Voiced understanding Message sent to Chika linares APRN to further advise * Telephone Encounter - Neptali Johnson RN - 06/16/2025 10:27 AM EDT Contacted MS Alcantar to discuss concerns. Ms Alcantar reported her weight has been increasing for about 1 week. Reports she was admitted at [facility] 2 weeks ago. Reports weight as 210 and previous weight as 202 post dc. Reports she increased bumex on Friday to 2mg in am and 1mg in pm, on Friday increased to 2/2. Denied having more urine output with increase. Reviewed PAD trends and reading 20 down from 23 2 days ago. Advised to continue Bumex 2mg BID for now and repeat labs. Stated shewould go to [facility] for repeat. Lab order faxed to [phone] Contacted [facility] medical records and requested records be faxed from admission. Reportedtheo was admitted from 05/27-05/29 Discussed with Chika Linares APRN and agreeable to POC * Telephone Encounter - Mk Barker Dayana - 06/16/2025 10:09 AM EDT Patient Phone Message Reason for Call: Pt says she continues to retain fluid even though she is taking medication for the issue. She is requesting a call to discuss. Best contact number and optimal time of day to reach caller: [phone] after 2 PM Note: Please do not reply to this message. Follow-up communication and further actions as a result of this message need to be communicated with the patient directly, if the patient is not active onMyChart. If the patient is active on MyChart, they will receive notification of the communication/outcome via [employer]. documented in this encounter Plan of Treatment Upcoming Encounters Date Type Department Care Team (Late st Contact Info) Description 06/24/2025 12:45 PM EDT Office Visit [facility] [place] [address] [place] [address] Elvin Schuler MD [address] [place] [address] Scheduled Orders Name Type Priority Associated Diagnoses Orde r Schedule Basic Metabolic Panel, Plasma Lab Routine Chronic systolic congestive heart failure (CMS/HCC) Expected: 06/16/2025 (Approximate), Expires: 12/18/2026 N-Terminal Probnp, Plasma Lab Routine Chronic systolic congestive heart failure (CMS/HCC) Expected: 06/16/2025 (Approximate), Expires: 12/18/2026 Basic Metabolic Panel, Plasma Lab STAT Chronic systolic congestive heart failure (CMS/HCC) Expected: 06/17/2025 (Approximate), Expires: 12/19/2026 N-Terminal Probnp, Plasma Lab STAT Chronic systolic congestive heart failure (CMS/HCC) Expected: 06/17/2025 (Approximate), Expires: 12/19/2026 Scheduled Referrals Name Type Priority Associated Diagnoses Order Schedule Ambulatory referral to Home Health Outpatient Referral Routine Chronic systolic congestive heart failure (CMS/HCC) 1 Occurrences starting 06/17/2025 until 12/19/2026 documented as of this encounter Visit Diagnoses Diagnosis Chronic systolic [...] documented as of this encounter Care Teams Fire Observer Relationship Specialty Start Date End Date Rad Galvan MD [address] [place] [address] PCP - General 04/08/25 Uli Salcedo PA [address] [place] [address] Referring Physician 02/03/25 documented as of this encounter
--- OUTSIDE RECORDS SUMMARY | 2025-06-17 10:43 | XMS_ITS | Encounter Summary ---
[facility] Organization [facility] Address [address] [place] [address] Care Team Providers Care Skin Piler Name Role Phone Rad Galvan MD Primary Care Provider + Reason for Visit * Reason Comments Med Refill Encounter Details Date Type Department Care Team (Late st Contact Info) Description 06/02/2025 Refill [facility] [address] [place] [address] Rad Galvan MD [address] [place] [address] Longstanding persistent atrial fibrillation; Seizure disorder; Restless leg syndrome; Gastroesophageal reflux disease without esophagitis; Type 2 diabetes mellitus with hyperglycemia Social History Tobacco Use Types Packs/Day Years [...] Description 07/13/2025 1:00 PM EDT Office Visit [facility] [address] [facility] [address] [place] [address] Sidney Barraza MD [address] [facility] [address] [place] [address] 08/01/2025 10:15 AM EDT Office Visit [facility] [address] [place] [address] Rad Galvan MD [address] [place] [address] documented as of this encounter Visit Diagnoses Diagnosis Longstanding persistent atrial fibrillation Seizure disorder Unspecified epilepsy without mention of intractable epilepsy Restless leg syndrome Restless legs syndrome (RLS) Gastroesophageal reflux disease without esophagitis Esophageal reflux Type 2 diabetes mellitus with hyperglycemia documented in this encounter Additional Health Concerns Assessment Noted Time PHQ-2 Depression Total Score: 1 02/17/20 24 10:24 AM EDT documented as of this encounter Care Teams Skin Piler Relationship Specialty Start Date End Date Rad Galvan MD [address] [place] [address] PCP - General Family Medicine 04/15/22 documented as of this encounter
[2025-06-17 10:44] VITALS: BMI 39.9
[2025-06-17 11:06] LABS: Chloride 96 mmol/L (98-107); Potassium 4.3 mmoL/L (3.5-5.1); Sodium 131 mmol/L (136-145)
[2025-06-17 11:09] LABS: Anion Gap 8.3 mEq/L (5-15); Blood Urea Nitrogen 32 mg/dl (7-17); Carbon Dioxide 31 mmol/L (22.0-30.0); Creatinine Clearance Estimated 63 mL/min (50-200); Creatinine,Serum 1.30 mg/dl (0.52-1.04); Estimated Glomerular Filt Rate 41 ml/min (>60); GFR (African American) 49 ML/MIN (>60)
[2025-06-17 11:10] LABS: Calcium 9.5 mg/dl (8.4-10.2); Glucose 93 mg/dl (74-100)
[2025-06-17 11:19] LABS: NT Pro Brain Natriuretic Pep. 1480 pg/mL (0-125)
[2025-06-17] MEDS: BUMETANIDE 1MG/4ML VIAL 4 MG IV (11:52)
[2025-06-17 12:20] VITALS: BP 124/56; PULSE 75; RESP 18; O2SAT 97
== END 2025-06-17 12:20 | disposition home or self-care (01) ==
LOC: INF 10:40
PROVIDERS: PCP Family Medicine; Visit Provider Nurse Practitioner
DX: I50.22 Chronic systolic (congestive) heart failure (principal)
CPT/HCPCS: 80048; 83880; 96374; J1939

== ENCOUNTER 2025-06-20 15:30 | Outpatient (CLI) | payer MEDICARE, SELFPAY ==
--- OUTSIDE RECORDS SUMMARY | 2025-04-08 11:00 | XMS_ITS | Encounter Summary ---
Author Organization [facility] Address [address] [place] [address] Care Team Providers Care Absorption Plant Operator Name Role Phone Uli Salcedo Unavailable [phone] Rad Galvan MD Primary Care Provider [phone] Encounter Details Date Type Department Care Team (Late st Contact Info) Description 04/08/2025 11:00 AM EDT Office Visit [facility] [place] [address] [facility]. [address] [place] [address] Elvin Schuler MD [address] [place] [address] Chronic systolic congestive heart failure (CMS/HCC) (Primary Dx) Social History Tobacco Use Types Packs/Day Years Used Date Smoking Tobacco: Former Passive Smoke Exposure: Never Smokeless Tobacco: Never Tobacco Cessation:Counseling Given: Yes Alcohol Use Standard Drinks/Week Comments Not Currently 0 (1 standard drink = 0.6 oz pur e alcohol) PHQ-2 Answer Date Recorded Patient Health Questionnaire-2 Score 0 04/08/2025 PHQ-9 Answer Date Recorded Patient Health Questionnaire-9 Score 0 04/08/2025 Comments No Sex and Gender Information Value Date Recorded Sex Assigned at Not on file Legal Sex Female 7:16 PM EDT Gender Identity Not on file Sexual Orientation Not on file documented as of this encounter Last Filed Vital Signs Vital Sign Reading Time Taken Comments Blood Pressure 118/75 04/08/2025 10:44 AM EDT Pulse 75 04/08/2025 10:44 AM EDT Temperature - - Respiratory Rate 16 04/08/2025 10:44 AM EDT Oxygen Saturation 96% 04/08/2025 10:44 AM EDT Inhaled Oxygen Concentration - - Weight 90.3 kg (199 lb 1.2 oz) 04/08/2025 10:44 AM EDT Height 154.9 cm (5' 1 ) 04/08/2025 10:44 AM EDT Body Mass Index 37.62 04/08/2025 10:44 AM EDT documented in this encounter Functional Status * Over the past 2 weeks, how often have you been bothered by any of the following problems? Question Answer Date of Assessment Author Little interest or pleasure in doing things Not at all 04/08/2025 11:00 AM EDT Bora Matta Feeling down, depressed, or hopeless Not at all 04/08/2025 11:00 AM EDT Bora Matta Patient Health Questionnaire -2 Score 0 04/08/2025 11:00 AM EDT Bora Matta * Question Answer Date of Assessment Author Trouble falling or staying asleep, or sleeping too much Not at all 04/08/2025 11:00 AM EDT Ean Ray Feeling tired or having ainta le energy Not at all 04/08/2025 11:00 AM EDT Bora Matta Poor appetite or overeating Not at all 04/08/2025 11 :00 AM EDT Ean Matta Feeling bad about yourself - or that you are a failure or have let yourself or your family down Not at all 04/08/2025 11:00 AM EDT Bora Matta Trouble concentrating on things, such as reading the newspaper or watching television Not at all 04/08/2025 11:00 AM EDT Bora Matta Moving or speaking so slowly that other people could have noticed? Or the opposite - being so fidgety or restless that you have been moving around a lot more than usual. Not at all 04/08/2025 11:00 AM EDT Ean Hays Thoughts that you would be better off or hurting yourself in some way Not at all 04/08/2025 11:00 AM EDT Michael Matta Patient Health Questionnaire -9 Score 0 04/08/2025 11:00 AM EDT Bora Matta E * If you checked off any problems on this questionnaire so far, Question Answer Date of Assessment Author How difficult have these problems made it for you to do your work, take care of things at home, or get along with other people? Not difficult at all 04/08/2025 11:00 AM EDT Michael Matta documented as of this encounter Miscellaneous Notes * Patient Instructions - Chika Orellana APRN - 04/08/2025 11:00 AM EDT Increase metoprolol to 1 whole pill a day * Progress Notes - Chika Orellana APRN - 04/08/2025 11:00 AM EDT Images from the original note were not included. [facility] Sara Edwards is a 69 y.o. female who presents today for follow up with Dr Schuler for chronic systolic heart failure . She has a long standing history of heart failure which is felt to befamilial in nature and was diagnosed back in 2014. She says she initially responded to medical therapy but had worsening of her function later. 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 The patient is diabetic on insulin and uses Ozempic as well. The patient reports sub-optimal quality of life from her heart failure. She does not remember that she felt better after receiving CCM device. She is frequently tired with daily activities and has dyspnea with housework. She does not exercise. Last echocardiogram from 01/11/2025 reported the following: LVEF 30%; moderate mitralregurgitation (eccentric and posteriorly directed). Left heart catheterization from 07/05/2024 showed mild disease in several vessels (20-40% severity). Although she is tolerating HF medical therapy, she states that Entresto was stopped in the past due to the concern that it was worsening her kidneyfunction. Recent dcr was 1.3, she is tolerating current therapy and has not required any extra diuretics. Her Ccm was adjusted and she is doing better. She still gets short of breath and fatigued with strenuous or prolonged exertion. RHC and CardioMems implant RA: 13 mmHg PA: 36/17 (23) mmHg PCW: 12 mmHg Uriel C.O.: 4.62 L/min; C.I.: 2.5 L/min/m2 Review of symptoms Constitutional: Negative for weight change, fever, chills, night sweats; +fatigue Pulmonary: Negative for cough, sputum production, wheezing, hemoptysis Cardiovascular: As per history of present illness Gastrointestinal: Negative for nausea, vomiting, diarrhea, constipation, abdominal pain, heartburn,melena, hematochezia Genitourinary: Negative for dysuria, hematuria, flank pain Musculoskeletal: Negative for joint swelling and pain, myalgias, back pain Neurological: Negative for weakness, numbness, syncope, dizziness, headache 14 Point ROS reviewed and is otherwise negative except as per HPI and what is noted above. Past Medical History Medical History[1] Surgical History Surgical History[2] Medications Current Medications[3] Family History family history includes Cardiac disorder in an other family member; Diabetes in an other family member; Hypertension in an other family member. Social History reports that she has quit smoking. She has never been exposed to tobacco smoke. She has never used smokeless tobacco. She reports that she does not currently use alcohol. She reports that she does not use drugs. Physical Exam Constitutional: Patient appears well; no acute distress; speaks without dyspnea Skin: ICD site and CCM site are well healed HENT: Anicteric JVP: Unable to appreciate JVD Carotid: No carotid bruits Cardiovascular: Regular rate and rhythm; no murmur or gallop appreciated Pulmonary: Clear to auscultation bilaterally Abdominal: Soft; no tenderness; no hepatomegaly; positive bowel sounds Extremities: Warm and well perfused; no edema Neurological: Alert and oriented X 3; no focal deficits appreciated Psychiatric: Normal mood and behavior Visit Vitals BP 118/75 Pulse 75 Ht 1.549 m (5' 1 ) Wt 90.3 kg (199 lb 1.2 oz) SpO2 96% BMI 37.62 kg/m?? Labs Lab Results Component Value Date HGB 11.5 11/26/2020 HCT 34.3 11/26/2020 PLT 310 11/26/2020 ALT 30 11/26/2020 AST 35 11/26/2020 NA 133 (L) 04/08/2025 K 04/08/2025 Comment: Hemolyzed CREATININE 1.04 04/08/2025 BUN 23 04/08/2025 CO2 24 04/08/2025 HGBA1C 6.6 (H) 02/17/2024 BNP 1,860 (H) 02/18/2025 BILITOT 0.5 11/26/2020 Impression: Chronic systolic heart failure, stage C, NYHA class III, compensated on exam Diabetes mellitus Chronic kidney disease , cr improved , 1.04 today Obesity Plan: Continue current dose of Bumex, digoxin, increase metoprolol XL 25, continue dapagliflozin, low dose valsartan and spironolactone. Based on improved kidney function, she may be able to tolerate Entresto in the future. Plan to transition on follow up Referred to EP given CCM device and was recalibrated with good response. Will follow her CardioMems PAD and optimize therapy , reading to day was 19 Return to HF clinic in 1-2 months. She will continue to follow up closely with cardiology at [place]. A total time of 40 minutes was spent by myself addressing the current illness, reviewing records, formulating a plan, and discussing the plan with the patient. The patient is agreeable to the plan and all pertinent questions were answered. This patient was seen, reviewed and plan formulated in conjunction with Dr Schuler. Chika Orellana, MEAGAN [1] Past Medical History: Diagnosis Date CHF (congestive heart failure) (CMS/HCC) Diabetes mellitus (CMS/HCC) GERD (gastroesophageal reflux disease) Hyperlipemia Hypertension Hyperuricemia Personal history of other diseases of the digestive system History of hiatal hernia Restless leg syndrome Seizures (CMS/HCC) Unspecified convulsions (CMS/HCC) Seizures [2] Past Surgical History: Procedure Laterality Date APPENDECTOMY N/A Appendectomy from [facility] GALLBLADDER SURGERY N/A Anastomosis Of Gallbladder from [facility] TONSILLECTOMY N/A Tonsillectomy from [facility] [3] Current Outpatient Medications Medication Sig Dispense Refill allopurinol (Zyloprim) 100 MG tablet Take 1 tablet by mouth daily. aspirin 81 MG chewable tablet Chew 1 tablet daily. 30 tablet 2 atorvastatin (Lipitor) 10 MG tablet Take 1 tablet by mouth daily. bumetanide (Bumex) 1 MG tablet Take 2 tablets by mouth daily. digoxin (Lanoxin) 125 MCG tablet Take 1 tablet by mouth daily. DULoxetine (Cymbalta) [address] capsule Take 1 capsule by mouth 1 time each day. Farxiga 10 MG tablet Take 1 tablet by mouth daily. fluticasone (Flonase) 50 MCG/ACT nasal spray INSTILL 2 SPRAYS INTO EACH NOSTRIL DAILY DIRECTED BY PROVIDER gabapentin (Neurontin) 600 MG tablet TAKE ONE TABLET BY MOUTH EVERY DAY MAY CAUSE DROWSINESS HumuLIN 70/30 (70-30) 100 UNIT/ML injection vial As of 03/30/25 35 units in the AM and 30 units in the PM isosorbide mononitrate ER (Imdur) 30 MG 24 hr tablet Take 1 tablet by mouth daily. loratadine (Claritin) 10 MG tablet Take 1 tablet by mouth daily. metoprolol succinate XL (Toprol-XL) 25 MG 24 hr tablet Take 1 tablet by mouth daily. nitroglycerin (Nitrostat) 0.[address] 1 tablet under the tongue every 5 minutes as needed for chest pain. NovoLOG FLEXPEN 100 UNIT/ML injection pen Inject 8 Units under the skin. Ozempic, 2 MG/DOSE, 8 MG/3ML solution pen-injector INJECT 2 MG SUBCUTANEOUSLY ONCE A WEEK DIRECTED pantoprazole (Protonix) 40 MG EC tablet Take 1 tablet by mouth 2 times a day. PHENobarbital (Luminal) 32.4 MG tablet take three tablets by mouth every night at bedtime potassium chloride CR (Klor-Con M20) 20 MEQ ER tablet Take 1 tablet by mouth twice a day. rOPINIRole (Requip) 2 MG tablet Take 1 tablet by mouth nightly. spironolactone (Aldactone) 25 MG tablet Take 1 tablet by mouth daily. traMADol (Ultram) 50 MG tablet TAKE ONE TABLET BY MOUTH EVERY 6 HOURS NEEDED FOR MODERATE TO SEVERE PAIN valsartan (Diovan) 40 MG tablet Take 1 tablet by mouth 2 times a day. Xarelto 20 MG tablet TAKE ONE TABLET BY MOUTH EVERY DAY FOR BLOOD THINNER No current facility-administered medications for this visit. documented in this encounter Plan of Treatment Upcoming Encounters Date Type Department Care Team (Late st Contact Info) Description 06/24/2025 12:45 PM EDT Office Visit [facility] [place] [address] [place] [address] Elvin Schuler MD [address] [place] [address] documented as of this encounter Procedures Procedure Name Priority Date/Time Associated Diagnosis Comments BASIC METABOLIC PANEL, PLASMA Routine 04/08/2025 1:05 PM EDT Chronic systolic congestive heart failure (CMS/HCC) documented in this encounter Results * (ABNORMAL) Basic Metabolic Panel, Plasma (04/08/2025 1:05 PM EDT) Glucose, Plasma 116(H) 74 - 99 mg/dL 04/08/2025 1:05 PM EDT [facility] BUN, Plasma 23 8 - 23 mg/dL 04/08/2025 1:05 PM EDT [facility] Creatinine, Plasma 1.04 0.60 - 1.10 mg/dL 04/08/2025 1:05 PM EDT [facility] BUN/Creatinine Ratio 22 04/08/2025 1:05 PM EDT [facility] Sodium, Plasma 133(L) 136 - 145 mmol/L 04/08/2025 1:05 PM EDT [facility] Potassium, Plasma 04/08/2025 1:05 PM EDT [facility] Comment: Hemolyzed Chloride, Plasma 99 97 - 107 mmol/L 04/08/2025 1:05 PM EDT [facility] CO2, Plasma 24 22 - 29 mmol/L 04/08/2025 1:05 PM EDT [facility] Anion Gap 10 6 - 16 mmol/L 04/08/2025 1:05 PM EDT [facility] Total Calcium, Plasma 9.6 8.9 - 10.2 mg/dL 04/08/2025 1:05 PM EDT [facility] eGFRcr 59.0 mL/min/1.7 3m*2 04/08/2025 1:05 PM EDT [facility] Comment:Reported eGFRcr in m L/min/1.73m2 is based the CKD-EPI 2020 equation that does not use a race coefficient. Blood Venous blood specimen / Unknown 04/08/2025 12:36 PM EDT us Chika Orellana GEOSPATIAL ENGINEER LAB BLOOD ORDERABLES Final Result [facility] [address] [place] [address] documented in this encounter Visit Diagnoses Diagnosis Chronic systolic congestive heart failure (CMS/HCC)- Primary documented in this encounter Additional Health Concerns Assessment Noted Time PHQ-9 Depression Total Score: 0 04/08/20 11:00 AM EDT A fall risk assessment has been complete d for the patient 04/08/2025 10:45 AM EDT A Body Mass Index follow-up plan has been documented for the patient 04/08/2025 12:12 PM EDT documented as of this encounter Care Teams Absorption Plant Operator Relationship Specialty Start Date End Date Rad Galvan MD [address] [place] [address] PCP - General 04/08/25 Uli Salcedo PA [address] [place] [address] Referring Physician 02/03/25 documented as of this encounter
--- OUTSIDE RECORDS SUMMARY | 2025-06-20 15:35 | XMS_ITS | Encounter Summary ---
Author Organization [facility] Address [address] [place] [address] Care Team Providers Care Auto Radiator Mechanic Name Role Phone Andrew Lee MD Primary Care Provider [phone] Uli Salcedo Unavailable [phone] Rad Glavan MD Primary Care Provider [phone] Encounter Details Date Type Department Care Team (Late st Contact Info) Description 04/07/2025 Telephone [facility] [place] [facility] [address] [facility]. [address] [place] [phone] Elvin Schuler MD [address] [place] [address] Social History Tobacco Use Types [...] Description 06/24/2025 12:45 PM EDT Office Visit [facility] [place] [facility] [address] [place] [address] Elvin Schuler MD [address] [place] [address] documented as of this encounter Visit Diagnoses [...] documented as of this encounter Care Teams Auto Radiator Mechanic Relationship Specialty Start Date End Date Andrew Lee MD [address] [place] [address] [address] [place] [address] PCP - General 04/06/21 04/07/25 Rad Galvan MD [address] [place] [address] PCP - General 04/08/25 Uli Salcedo PA [address] [place] [address] Referring Physician 02/03/25 documented as of this encounter
--- OUTSIDE RECORDS SUMMARY | 2025-06-20 15:35 | XMS_ITS | Clinical Summary ---
Author Organization [facility] Address [address] [place] [address] Care Team Providers Care Health Care Manager Name Role Phone Uli Salcedo Unavailable [phone] Rad Galvan MD Primary Care Provider [phone] Allergies Active Allergy Reactions Criticality Noted Date [...] Encounters Date Type Department Care Team Description 06/17/2025 Telephone [facility] [place] [address] [place] [address] Elvin Schuler MD HCN - Patient Message 06/16/[address] [address] Elvin Schuler MD HCN - Patient Message 04/26/[address] [phone] Yaritza Johnson RN 04/08/2025 11:00 AM EDT Office Visit [address] [phone] Elvin Schuler MD Chronic systolic congestive heart failure (CMS/HCC) (Primary Dx) 04/08/2025 Travel 04/07/[address] [phone] Elvin Schuler MD 03/30/2025 10:40 AM EDT - 03/30/2025 12:00 PM EDT Surgery Cardiac Tubing Supervisor [address] [place] [phone] Brodie Carranza MD Cardiomems w/Right Heart Cath [66499 (CPT )] 03/30/2025 9:45 AM EDT - 03/30/2025 2:35 PM EDT Hospital Encounter Cardiac Tubing Supervisor [address] [place] [phone] Brodie Carranza MD Congestive heart failure, unspecified [...] Description 06/24/2025 12:45 PM EDT Office Visit [facility] [place] [address] [place] [address] Elvin Schuler MD [address] [place] [phone] Health Maintenance Due Date Last Done Comments [facility]-Bone Density Scan 1957 [facility]-/Child/Adol SDOH Screenings 1957 Diabetes: Dental Exam 1967 [facility]- SDOH Screenings 1975 [facility]-Adult SDOH Screenings 1975 [facility]-DTaP,Tdap,and Td Vaccines (1 - Tdap) 01/24/1997 01/23/1997 CT Colonography 2002 Colonoscopy 2002 FIT 2002 FOBT 2002 Sigmoidoscopy 2002 [facility]-Breast Cancer Screening 2007 [facility]-Zoster Vaccines (1 of 2) 2007 PYB-[id number]-18 Vaccine ( season) 2024 09/06/2022, 11/28/2021, 03/06/2021, [...] Procedure Name Priority Date/Time Associated Diagnosis Comments N-TERMINAL PROBNP, PLASMA Routine 06/17/2025 10:48 AM EDT BASIC METABOLIC PANEL, PLASMA Routine 06/17/2025 10:48 AM EDT BASIC METABOLIC PANEL, PLASMA Routine 04/08/2025 1:05 [...] Relevant to Health Maintenance Results * (ABNORMAL) N-Terminal Probnp, Plasma (06/17/2025 10:48 AM EDT) External Pro-BNP 1,480 EXTERNAL LAB Comment:High Blood Venous blood specimen / Unknown 06/17/2025 10:48 AM EDT us Historical Provider LAB BLOOD ORDERABLES Kailey musa Result EXTERNAL LAB * (ABNORMAL) Basic Metabolic Panel, Plasma (06/17/2025 10:48 AM EDT) Only the most recent of2 resultswithin the time period is included. External Glucose 93 EXTERNAL LAB External BUN 32 EXTERNAL LAB Comment:High External Creatinine Blood 1.30 mg/dL EXTERNAL LAB Comment:High External UN/Creat Ratio (UC) tnp EXTERNAL LAB External Sodium (Na) 131 mEq/L EXTERNAL LAB Comment:Low External Potassium (K) 4.3 EXTERNAL LAB External Chloride (Cl) 96 EXTERNAL LAB Comment:Low External Carbon Dioxide (CO2) 31 EXTERNAL LAB Comment:High External Anion Gap (AG) 8.3 EXTERNAL LAB External Calcium (Ca) 9.5 EXTERNAL LAB External Estimated GFR 41 EXTERNAL LAB Comment:Low External EGFR (If AFR/AM) 49 EXTERNAL LAB Comment:Low Blood Venous blood specimen / Unknown 06/17/2025 10:48 AM EDT us Historical Provider LAB BLOOD ORDERABLES Kailey l Result EXTERNAL LAB * CARDIOMEMS W/RIGHT HEART CATH (03/30/2025 11:39 [...] into the left pulmonary artery, percutaneous approach. ([id number]) Access: Right Jugular vein 11Fr [place] Sheath Procedure: After obtaining a consent, the [...] was inserted through the needle, an 11Fr [place] sheath was inserted over the wire, subsequently blood was aspirated and the sheath flushed. Subsequently a 7 Yi wedge catheter was passed through the [place] sheath into the RA, RV and PA [...] right pulmonary artery for calibration. Ultimately the [place] sheath was withdrawn with patient exhaling during [...] Co-Oximetry Mixed Venous (03/30/2025 11:23 AM EDT) POCT Oxyhemoglobin, Mixed Venous 59.1 % 03/30/2025 11:24 AM EDT HEALTHCARE LAB Strip Tank Tender ID Eva Hernandez 03/30/2025 11:24 AM EDT HEALTHCARE LAB Device ID [id number] 1 03/30/2025 11:24 AM EDT HEALTHCARE LAB POCT Sample Site PA 03/30/2025 11:24 AM EDT HEALTHCARE LAB POCT Total Hemoglobin 11.8 11.2 - 15.7 g/dL 03/30/2025 11:24 AM EDT HEALTHCARE LAB 03/30/2025 11:2 3 AM EDT 03/30/2025 11:24 AM EDT Brodie Carranza MD LAB POINT OF CARE TEST DOCKED DEVICE UNSOLICITED RESULTS Final Result Performing Organization Address City/[facility]/ZIP Co de Phone Number [facility] [address] [place] [phone] * POCT CO-Oximitry, Venous (03/30/2025 11:19 AM EDT) [facility] POCT OXYHEMOGLOBIN, VENOUS 64 40 - 70 % 03/30/2025 11:20 AM EDT HEALTHCARE LAB Strip Tank Tender ID Eva Hernandez 03/30/2025 11:20 AM EDT HEALTHCARE LAB Device ID [id number] 1 03/30/2025 11:20 AM EDT HEALTHCARE LAB POCT Sample Site SVC 03/30/2025 11:20 AM EDT HEALTHCARE LAB POCT Total Hemoglobin 12.1 11.2 - 15.7 g/dL 03/30/2025 11:20 AM EDT HEALTHCARE LAB Venous blood specimen / Unknown 03/30/2025 11:19 AM EDT 03/30/2025 11:20 AM EDT Brodie Carranza MD LAB POINT OF CARE TEST DOCKED DEVICE UNSOLICITED RESULTS Final Result Performing Organization Address City/[facility]/ZIP Co de Phone Number [facility] [address] [place] [address] * Forrest Hepatitis C Antibody (11/26/2020 6:51 PM EST) [place] Hepatitis C Ab NEGATIVE Reference Range: Negative SUNQUEST 11/26/2020 6:51 PM EST 11/26/2020 7:09 PM EST Justo Morse MD LAB BLOOD ORDERABLES Final Re sult SUNQUEST from Last 3 Months or Most Recently Relevant to Health Maintenance Insurance [employer] MEDICARE Advance Directives Documents on File Type Date Recorded Patient Biomedical Field Service Engineer Expl anation Advance Directives and Living Will 03/30/2025 LIVING WILL DIRECTIV E Healthcare Agents on File Name Relationship Healthcare Agent Relationshi p Communication Yennifer Edwards Daughter Next of Kin Care Teams Health Care Manager Relationship Specialty Start Date End Date Rad Galvan MD [address] [place] [address] PCP - General 04/08/25 Uli Salcedo PA [address] [place] [address] Referring Physician 02/03/25
--- OUTSIDE RECORDS SUMMARY | 2025-06-20 15:35 | XMS_ITS | Encounter Summary ---
Author Organization [facility] Address [address] [place] [id number] Care Team Providers Care Soft Water Mechanic Name Role Phone Uli Salcedo Unavailable [phone] Rad Galvan MD Primary Care Provider Encounter Details Date Type Department Care Team (Late st Contact Info) Description 04/26/2025 Telephone [facility] [place] [address] [facility] [place] [address] Yaritza Johnson, RN [facility] [address] [place] [address] Social History Tobacco Use Types Packs/Day Years [...] Description 06/24/2025 12:45 PM EDT Office Visit [facility] [place] [facility] [address] [place] [address] Elvin Schuler MD [address] [place] [address] documented as of this encounter Visit Diagnoses [...] documented as of this encounter Care Teams Soft Water Mechanic Relationship Specialty Start Date End Date Rad Galvan MD [address] [place] [address] PCP - General 04/08/25 Uli Salcedo PA [address] [place] [address] Referring Physician 02/03/25 documented as of this encounter
--- OUTSIDE RECORDS SUMMARY | 2025-06-20 15:35 | XMS_ITS | Encounter Summary ---
Author Organization [facility] Address [address] [place] [address] Care Team Providers Care Outside Sales Representative Insurance Name Role Phone Uli Salcedo Unavailable [phone] Rad Galvan MD Primary Care Provider [phone] Reason for Visit * Reason Onset Date Comments HCN - Patient Message 06/17/2025 Encounter Details Date Type Department Care Team (Late st Contact Info) Description 06/17/2025 Telephone [facility] [place] [facility] [address] [facility] [place] [phone] Elvin Schuler MD [address] [place] [address] HCN - Patient Message Social [...] Telephone Encounter - Yaritza Johnson RN - 06/20/2025 2:53 PM EDT Contacted Ms alcantar to discuss labs that were discussed this am. Ms alcantar reported she has not yet obtained. Advised to obtain today as discussed and will further guide additional doses of IV oncelabs reviewed. Discussed again taking bumex 2mg BID today. Also discussed ed precautions if continues to have worsening symptoms * Telephone Encounter - Mk Barker - 06/20/2025 1:41 PM EDT Patient Phone Message Reason for Call: Pt is requesting a call back to discuss whether, or not, pt may be able to come in clinic and have fluid removed. Best contact number and optimal time of day to reach caller: [phone] Note: Please do not reply to this message. Follow-up communication and further actions as a result of this message need to be communicated with the patient directly, if the patient is not active onMyChart. If the patient is active on MyChart, they will receive notification of the communication/outcome via Something[employer]. * Telephone Encounter - Yaritza Johnson RN - 06/20/2025 9:01 AM EDT Contacted Ms alcantar to follow up on symptoms post IV infusion on Friday. Reports she is taking bumex 2mg daily. Stated still feels like she has swelling in BLE. PAD yesterday 20. Advised to get labstoday and will further assess. Discussed with Dr Schuler and agreeable to POC * Telephone Encounter - Mk Barker - 06/17/2025 1:46 PM EDT Patient Phone Message Reason for Call: Pt is returning call from clinic. She asked for a call back. Best contact number and optimal time of day to reach caller: [phone] Note: Please do not reply to this message. Follow-up communication and further actions as a result of this message need to be communicated with the patient directly, if the patient is not active onMyChart. If the patient is active on MyChart, they will receive notification of the communication/outcome via MyChart. documented in this encounter Plan of Treatment Upcoming Encounters Date Type Department Care Team (Late st Contact Info) Description 06/24/2025 12:45 PM EDT Office Visit [facility] [place] [address] [place] [address] Elvin Schuler MD [address] [place] [address] documented as of this encounter Visit Diagnoses [...] documented as of this encounter Care Teams Outside Sales Representative Insurance Relationship Specialty Start Date End Date Rad Galvan MD [address] [place] [address] PCP - General 04/08/25 Uli Salcedo PA [address] [place] [address] Referring Physician 02/03/25 documented as of this encounter
--- OUTSIDE RECORDS SUMMARY | 2025-06-20 15:35 | XMS_ITS | Encounter Summary ---
Author Organization [facility] Address [address] [place] [address] Care Team Providers Care Section Repairer Name Role Phone Rad Galvan MD Primary Care Provider + Reason for Visit * Reason Comments Med Refill Encounter Details Date Type Department Care Team (Late st Contact Info) Description 06/02/2025 Refill [facility] [address] [place] [address] Rad Galvan MD [address] [place] [address] Longstanding persistent atrial fibrillation; Seizure [...] Description 07/13/2025 1:00 PM EDT Office Visit [facility] [address] [facility] [address] [place] [address] Sidney Barraza MD [address] [facility] [address] [place] [address] 08/01/2025 10:15 AM EDT Office Visit [facility] [address] [place] [address] Rad Galvan MD [address] [place] [address] documented as of this encounter [...] documented as of this encounter Care Teams Section Repairer Relationship Specialty Start Date End Date Rad Galvan MD [address] [place] [address] PCP - General Family Medicine 04/15/22 documented as of this encounter
--- OUTSIDE RECORDS SUMMARY | 2025-06-20 15:35 | XMS_ITS | Encounter Summary ---
Author Organization [facility] Address [address] [place] [address] Care Team Providers Care Chief Procurement Officer Name Role Phone Andrew Lee MD Primary Care Provider [phone] Uli Salcedo Unavailable [phone] Rad Galvan MD Primary Care Provider [phone] Encounter Details Date Type Department Care Team (Late st Contact Info) Description 01/11/2025 Orders Only External Location [address] [place] [address] Uli Salcedo PA [address] [place], [place] [phone] Social History Tobacco Use Types Packs/Day Years [...] Description 06/24/2025 12:45 PM EDT Office Visit [facility] [place] [facility] [address] [facility]. [address] [place] [phone] Elvin Schuler MD [address] [place] [address] documented as of this encounter [...] on filedocumented in this encounter Care Teams Chief Procurement Officer Relationship Specialty Start Date End Date Andrew Lee MD [address] [place] [address] [address] [place] [address] PCP - General 04/06/21 04/07/25 Rad Galvan MD [address] [place] [address] PCP - General 04/08/25 Uli Salcedo PA [address] [place] [address] Referring Physician 02/03/25 documented as of this encounter
--- OUTSIDE RECORDS SUMMARY | 2025-06-20 15:35 | XMS_ITS | Clinical Summary ---
[facility] Organization [facility] Address [address] [place] [address] Care Team Providers Care Maternity Floor Supervisor Name Role Phone Rad Galvan MD Primary Care Provider + Allergies Active Allergy Reactions Criticality Noted Date Comments Metoclopramide Rash Low 04/15/2022 Medications [place]-3 Fatty Acids (fish oil) 1000 MG capsule [...] 11 08/03/20 24 Active Comfort EZ Pen [place] 32G X 6 MM misc USE DIRECTED [...] mouth Daily. 02/04/20 25 Active Continuous Glucose Information Security Specialist (FreeStyle Simón 3 [place]) deviceIndication s:Type 2 diabetes mellitus with hypoglycemia [...] chloride (KLOR-CON M20) 20 MEQ CR tabletIndication s:residential current use of diuretic TAKE ONE TABLET [...] evening. She will be referred back to [facility] podiatry for topical interventions that may [...] Type Department Care Team Description 06/02/2025 Refill [facility] [address] [place] [phone] Rad Galvan MD Longstanding persistent atrial fibrillation; Seizure disorder; Restless leg syndrome; Gastroesophageal reflux disease without esophagitis; Type 2 diabetes mellitus with hyperglycemia 05/03/2025 [facility] CALL CENTER [address], [place] [address] Brian Baptiste, [facility] 04/20/2025 Refill [facility] [address] [place] [address] Rad Galvan MD 04/12/2025 Refill [facility] [address] [place] [address] Rad Galvan MD Chronic midline low back pain without sciatica 04/12/2025 Telephone [facility] [address] [place] [address] Rad Galvan MD Med Management 04/08/2025 Telephone [facility] [address] [place] [address] Rad Galvan MD Med Management 04/07/2025 10:00 AM EDT Office Visit [facility] [address] [place] [address] Rad Galvan MD Type 2 diabetes mellitus [...] disorder 04/07/2025 Travel 04/01/2025 External PBMM Data [facility] [address], [place] [address] Pharmacy, Payor Data 03/31/2025 Telephone [facility] [address] [place] [address] Rad Galvan MD Blood Sugar Problem from [...] Comments Diabetes [place] Hyperlipidemia Daughter Yennifer Edwards Alcohol abuse Father Jakob Fish Hyperlipidemia Father [...] Description 07/13/2025 1:00 PM EDT Office Visit [facility] [address] [place] [address] Sidney Barraza MD [address] [facility] [address] [place] [address] 08/01/2025 10:15 AM EDT Office Visit [facility] [address] [place] [address] Rad Galvan MD [address] [facility] [place] [address] Health Maintenance Due Date Last [...] Name Priority Date/Time Associated Diagnosis Comments SCANNED - LABS 06/17/2025 SCANNED EKG 05/27/2025 SCANNED - IMAGING 05/26/2025 [...] Recently Relevant to Health Maintenance Results * LABS SCANNED (06/17/2025) Only the most recent of4 resultswithin the time period is included. Rad Galvan MD LAB BLOOD ORDERABLES Fin al Result * ECG Scan (05/27/2025) Only the most recent of2 resultswithin the time period is included. Rad Galvan MD ECG ORDERABLES Final Re sult * IMAGING SCANNED (05/26/2025) Only the most recent of5 resultswithin the time period is included. Anatomical Region Laterality Modality Radiographic Gracie ging Rad Galvan MD IMG DIAGNOSTIC IMAGING O RDERABLES Final Result * FOOT EXAM SCANNED (05/02/2025) Rad Galvan MD CHART REVIEW TABS Fin al Result * (ABNORMAL) POC Glycosylated Hemoglobin (Hb A1C) (04/07/2025 9:42 AM EDT) [facility] Hemoglobin A1C 7.8(A) 4.5 - 5.7 % [facility] Lot Number [id number] [facility] Expiration Date 10/26/2026 [facility] Blood 04/07/2025 9:42 AM EDT Rad Galvan MD POINT OF CARE TEST ORDER RICH Final Result [facility]
[address] [place] [address], * (ABNORMAL) Albumin/Creatinine Ratio Urine (01/07/2025 3:18 PM EST) POC ALBUMIN, URINE 30 mg/L POC CREATININE, URINE 50 mg/dL POC Urine Albumin Creatinine Ratio 30-300 <30 Comment:abnormal Lot Number [id number] Expiration Date 10/23/2025 Urine 01/07/2025 3:[address] [facility] Rad Galvan MD POINT OF CARE TEST ORDER RICH Final Result * SCANNED - MAMMO (02/18/2023) Anatomical Region Laterality Modality Other Rad Galvan MD CHART REVIEW TABS Fin al Result * SCANNED - DEXA (02/18/2023) Anatomical Region Laterality Modality Other Result [facility] Rad Galvan MD CHART REVIEW TABS Fin al Result * (ABNORMAL) Cologuard - Stool, Per Rectum (02/15/2023 4:07 PM EDT) Cologuard Positive( A) Negative 02/25/2023 5:18 PM EDT [facility] (CLIA #:[id number]) Comment: POSITIVE TEST RESULT. A positive Cologuard [...] screened with both Cologuard and colonoscopy. (Kathleen Roberts al, N Engl J Med 2014;370(14):6093-3386.) Cologuard may produce a false negative or false positive result (no colorectal cancer or precancerous polyp present at colonoscopy follow up). A negative Cologuard test result does not guarantee the absence of CRC or advanced adenoma (pre-cancer). The current Cologuard screening interval is every 3 years. ([place] Cancer Society and U.S. Multi-Society Task Force). Cologuard performance data in a 10,000 patient pivotal study using colonoscopy as the reference method can be accessed at the following location: www.Prenova/results. Additional description of the Cologuard test process, warnings and precautions can be found at [email or web address].[email or web address]. Stool specimen (specimen) Specimen from rectum / Unknown 02/15/2023 4:07 PM EDT 02/18/2023 3:05 PM EDT Rad Galvan MD BODY FLUIDS AND STOOLS O RDERABLES Final Result [facility] (CLIA #:[id number]) [address] [place] [address], from Last 3 Months or Most Recently Relevant to Health Maintenance Insurance [employer] PPO Care Teams Maternity Floor Supervisor Relationship Specialty Start Date End Date aRd Galvan MD [address] [place] [address] PCP - General Family Medicine 04/15/22
--- OUTSIDE RECORDS SUMMARY | 2025-06-20 15:35 | XMS_ITS | Encounter Summary ---
Author Organization [facility] Address [address] [place] [address] Care Team Providers Care Visual Communications Instructor Name Role Phone Uli Salcedo Unavailable [phone] Rad Galvan MD Primary Care Provider [phone] Reason for Referral * Home Health (Routine) - Authorized Specialty Diagnoses / Procedures Referred By Contaleida t Referred To Contact Home Health Services Diagnoses Chronic systolic congestive heart failure (CMS/HCC) Chika Linares APRN [address] [place] [address] Phone: tel: fax: Referral ID Status Reason Start Date Expiration Date Visits Requested Visits Authorized [id number] Authorized Specialty Services Required 06/17/2025 12/17/2026 999 999 Reason for Visit * Reason Onset Date Comments HCN - Patient Message 06/16/2025 Encounter Details Date Type Department Care Team (Late st Contact Info) Description 06/16/2025 Telephone [facility] [address] [facility] [place] [address] Elvin Schuler MD [address] [place] [address] HCN - Patient Message Social [...] encounter Miscellaneous Notes * Telephone Encounter - Neptali Johnson RN - 06/17/2025 1:59 PM EDT Contacted Ms Edwards and advised after reviewing her labs, Chika advised to only take bumex 2mg daily thru the weekend. Ms Edwards voiced understanding and aware to repeat labs on Friday. Stated she has received IV bumex and has gone to the bathroom already 3-4 times * Addendum Note - Neptali Johnson RN - 06/17/2025 9:59 AM EDTAddended by: NEPTALI JOHNSON on: 06/17/2025 09:59 AM Modules accepted: Orders * Telephone Encounter - Neptali Johnson RN - 06/17/2025 9:04 AM EDT Orders received from Chika Linares APRN to order one time dose of IV bumex 4mg. Spoke to Anne at [facility] infusion suite. Stated they could collect labs in infusion and administer IV bumex. Stated order would need to be faxed to [phone]. Orders placed and faxed. Contacted ortiz and updated. Advised to hold oral bumex dose tonight and continue Bumex 2mg BID on Friday or can change to daily if weight is lower. Starting Friday, continue 2mg daily and repeat labs on Friday (order has already been faxed). Message sent to Maycol Rudy to arrange an appt with Robina IGLESIAS on Friday to assess symptoms andmake any additional changes after receiving IV diuretics * Telephone Encounter - Neptali Johnson RN - 06/17/2025 8:49 AM EDT Contacted Ms Edwards to follow up on repeat labs. Reports [...] - 06/16/2025 10:27 AM EDT Contacted MS Edwards to discuss concerns. Ms Edwards reported her weight has been increasing for about 1 week. Reports she was admitted at [facility] 2 weeks ago. Reports weight as [...] and repeat labs. Stated shewould go to [facility] for repeat. Lab order faxed to [phone] Contacted [facility] medical records and requested records be faxed from admission. Reportedtheo was admitted from 05/27-05/29 Discussed with Chika Linares APRN and agreeable to POC * Telephone Encounter - Mk Barker - 06/16/2025 10:09 AM EDT Patient Phone Message Reason for Call: Pt says she continues to retain fluid even though she is taking medication for the issue. She is requesting a call to discuss. Best contact number and optimal time of day to reach caller: [phone] after 2 PM Note: Please do not reply to this message. Follow-up communication and further actions as a result of this message need to be communicated with the patient directly, if the patient is not active onMyChart. If the patient is active on MyChart, they will receive notification of the communication/outcome via [email or web address]. documented in this encounter Plan of Treatment Upcoming Encounters Date Type Department Care Team (Late st Contact Info) Description 06/24/2025 12:45 PM EDT Office Visit [facility] [place] [address] [facility]. [address] [place] [address] Elvin Schuler MD [address] [place] [address] Scheduled Orders Name Type Priority Associated Diagnoses [...] documented as of this encounter Care Teams Visual Communications Instructor Relationship Specialty Start Date End Date Rad Galvan MD [address] [place] [address] PCP - General 04/08/25 Uli Salcedo PA [address] [place] [address] Referring Physician 02/03/25 documented as of this encounter
--- OUTSIDE RECORDS SUMMARY | 2025-06-20 15:35 | XMS_ITS ---
Author Organization [facility] Address [address] [place] [address] Care Team Providers Care Culinary Arts Teacher Name Role Phone Rad Galvan MD Primary Care Provider + [facility] Status:Enrolled (Active) Start date:04/13/2025 Enrollment date:04/13/2025 Current support & services provided:Adherence- Cholesterol, Adherence- Hypertension Linked medications:Atorvastatin Calcium (Active), Valsartan (Active) Overview Atorvastatin and valsartan filled 03/26/2025 #30 day both have refills Case Team Name Relationship Phone Danielle Da Silva LPN(Responsible Staff) Licensed Mane cody Nurse Continued Care and Services Coordination
--- OUTSIDE RECORDS SUMMARY | 2025-06-20 15:35 | XMS_ITS | Encounter Summary ---
[facility] Address [address] [place] [address] Care Team Providers Care Vacation Planner Name Role Phone Rad Galvan MD Primary Care Provider + Encounter Details Date Type Department Care Team (Late st Contact Info) Description 05/03/2025 [facility] CALL CENTER [address] [place] [address] [facility] [address] [place], [place] [id number] Social History Tobacco Use Types Packs/Day Years [...] Description 07/13/2025 1:00 PM EDT Office Visit [facility] [address] [facility] [address] [place] [address] Sidney Barraza MD [address] [place] [address] 08/01/2025 10:15 AM EDT Office Visit [facility] [address] [place] [address] Rad Galvan MD [address] [place] [address] documented as of this encounter Visit Diagnoses Not on filedocumented in this encounter Additional Health Concerns Assessment Noted Time PHQ-2 Depression Total Score: 1 02/17/20 24 10:24 AM EDT documented as of this encounter Care Teams Vacation Planner Relationship Specialty Start Date End Date Rad Galvan MD [address] [place] [address] PCP - General Family Medicine 04/15/22 documented as of this encounter
[2025-06-20 16:50] LABS: Chloride 93 mmol/L (98-107)
[2025-06-20 16:51] LABS: Potassium 4.4 mmoL/L (3.5-5.1); Sodium 129 mmol/L (136-145)
[2025-06-20 16:54] LABS: Anion Gap 10.4 mEq/L (5-15); Blood Urea Nitrogen 35 mg/dl (7-17); Calcium 9.3 mg/dl (8.4-10.2); Carbon Dioxide 30 mmol/L (22.0-30.0); Creatinine,Serum 1.30 mg/dl (0.52-1.04); Estimated Glomerular Filt Rate 41 ml/min (>60); GFR (African American) 49 ML/MIN (>60); Glucose 95 mg/dl (74-100)
== END 2025-06-20 23:59 | disposition home or self-care (01) ==
LOC: LAB 15:31
PROVIDERS: PCP Family Medicine; Visit Provider Nurse Practitioner Family
DX: I50.20 Unspecified systolic (congestive) heart failure (principal)
CPT/HCPCS: 36415; 80048

== ENCOUNTER 2025-06-23 10:15 | Outpatient (CLI) | payer MEDICARE, SELFPAY ==
--- OUTSIDE RECORDS SUMMARY | 2025-04-08 11:00 | XMS_ITS | Encounter Summary ---
Author Organization [facility] Address [address] [place] [address] Care Team Providers Care Family Practitioner Name Role Phone Uli Salcedo Unavailable [phone] Rad Galvan MD Primary Care Provider [phone] Encounter Details Date Type Department Care Team (Late st Contact Info) Description 04/08/2025 11:00 AM EDT Office Visit [facility] [place] [address] [place] [address] Elvin Schuler MD [address] [place] [address] Chronic systolic congestive heart failure (CMS/HCC) (Primary [...] from the original note were not included. [facility] Sara Edwards is a [...] of her function later. 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 A total time of 40 minutes was [...] Procedure Laterality Date APPENDECTOMY N/A Appendectomy from [employer] GALLBLADDER SURGERY N/A Anastomosis Of Gallbladder from [employer] TONSILLECTOMY N/A Tonsillectomy from [employer] [3] Current Outpatient Medications Medication Sig Dispense [...] Description 06/24/2025 12:45 PM EDT Office Visit [facility] [place] [address] [place] [address] Elvin Schuler MD [address] [place] [address] documented as of this encounter Procedures Procedure Name Priority Date/Time Associated Diagnosis Comments BASIC METABOLIC PANEL, PLASMA Routine 04/08/2025 1:05 PM EDT Chronic systolic congestive heart failure (CMS/HCC) documented in this encounter Results * (ABNORMAL) Basic Metabolic Panel, Plasma (04/08/2025 1:05 PM EDT) Glucose, Plasma 116(H) 74 - 99 mg/dL 04/08/2025 1:05 PM EDT [facility] BUN, Plasma 23 8 - 23 mg/dL 04/08/2025 1:05 PM EDT [facility] Creatinine, Plasma 1.04 0.60 - 1.10 mg/dL 04/08/2025 1:05 PM EDT [facility] BUN/Creatinine Ratio 22 04/08/2025 1:05 PM EDT [facility] Sodium, Plasma 133(L) 136 - 145 mmol/L 04/08/2025 1:05 PM EDT [facility] Potassium, Plasma 04/08/2025 1:05 PM EDT [facility] Comment: Hemolyzed Chloride, Plasma 99 97 - 107 mmol/L 04/08/2025 1:05 PM EDT [facility] CO2, Plasma 24 22 - 29 mmol/L 04/08/2025 1:05 PM EDT [facility] Anion Gap 10 6 - 16 mmol/L 04/08/2025 1:05 PM EDT [facility] Total Calcium, Plasma 9.6 8.9 - 10.2 mg/dL 04/08/2025 1:05 PM EDT [facility] eGFRcr 59.0 mL/min/1.7 3m*2 04/08/2025 1:05 PM EDT [facility] Comment:Reported eGFRcr in m L/min/1.73m2 is based the CKD-EPI 2020 equation that does not use a race coefficient. Blood Venous blood specimen / Unknown 04/08/2025 12:36 PM EDT us Chika Orellana [facility] BLOOD ORDERABLES Final Result [facility] [address] [place] [address] documented in this encounter Visit Diagnoses Diagnosis [...] documented as of this encounter Care Teams Family Practitioner Relationship Specialty Start Date End Date Rad Galvan MD [address] [place] [address] PCP - General 04/08/25 lUi Salcedo PA [address] [place] [address] Referring Physician 02/03/25 documented as of this encounter
--- OUTSIDE RECORDS SUMMARY | 2025-06-23 10:18 | XMS_ITS | Encounter Summary ---
[facility] Address [address] [place] [address] Care Team Providers Care Nut Roaster Helper Name Role Phone Rad Conroy MD Primary Care Provider + Reason for Visit * Reason Onset Date Comments FOLLOW UP ON FAX 06/21/2025 Encounter Details Date Type Department Care Team (Late st Contact Info) Description 06/21/2025 Telephone [facility] [address] [place] [address] Rad Conroy MD [address] [place] [address] FOLLOW UP ON FAX Social History Tobacco Use Types Packs/Day Years [...] PM EDT documented as of this encounter Miscellaneous Notes * Telephone Encounter - Hussain Perkins MA - 06/22/2025 8:44 AM EDT Document reprinted and placed in Dr. Conroy' tray for a wet signature. * Telephone Encounter - Gabi Lee RegSched Rep - 06/21/2025 9:55 AM EDT Caller: [employer] Relationship: Other Best call back number: [phone] OPTION 2 Equipment requested: ALO SUPPLIES Prescribing Provider: DR CONROY Additional information or concerns: THEY HAD SUBMITTED REQUEST BACK ON [id number] BUT THE REQUEST DIDN'T HAVE DOCTORS SIGNATURE; THEY HAVE RESUBMITTED THE FORM YESTERDAY AND THIS NEEDS TO BE SIGNED FOR THE PATIENT TO CONTINUE GETTING HER SUPPLIES PLEASE CALL TO ADVISE documented in this encounter Plan of Treatment Upcoming Encounters Date Type Department Care Team (Late st Contact Info) Description 07/13/2025 1:00 PM EDT Office Visit [facility] [address] [address] Sidney Barraza MD [address] [place] [address] 08/01/2025 10:15 AM EDT Office Visit [facility] [address] [facility] [place] [address] Rad Conroy MD [address] [facility] [place] [address] documented as of this encounter Visit Diagnoses Not on filedocumented in this encounter Additional Health Concerns Assessment Noted Time PHQ-2 Depression Total Score: 1 02/17/20 24 10:24 AM EDT documented as of this encounter Care Teams Nut Roaster Helper Relationship Specialty Start Date End Date Rad Conroy MD [address] [facility] [place] [address] PCP - General Family Medicine 04/15/22 documented as of this encounter
--- OUTSIDE RECORDS SUMMARY | 2025-06-23 10:18 | XMS_ITS | Clinical Summary ---
[facility] Address [address] [place] [address] Care Team Providers Care Analytical Strategist Name Role Phone Rad Galvan MD Primary Care Provider + Allergies Active Allergy Reactions Criticality Noted Date Comments Metoclopramide Rash Low 04/15/2022 Medications [place]-3 Fatty Acids (fish oil) 1000 MG capsule [...] 11 08/03/20 24 Active Comfort EZ Pen [place] 32G X 6 MM misc USE DIRECTED [...] mouth Daily. 02/04/20 25 Active Continuous Glucose Income Tax Expert (FreeStyle Simón 3 [place]) deviceIndication s:Type 2 diabetes mellitus with hypoglycemia [...] chloride (KLOR-CON M20) 20 MEQ CR tabletIndication s:detention current use of diuretic TAKE ONE TABLET [...] evening. She will be referred back to [facility] podiatry for topical interventions that may [...] Encounters Date Type Department Care Team Description 06/21/2025 Telephone [facility] [address] [place] [address] Rad Galvan MD FOLLOW UP ON FAX 06/02/2025 Refill [facility] [address] [place] [address] Rad Galvan MD Longstanding persistent atrial fibrillation; Seizure disorder; Restless leg syndrome; Gastroesophageal reflux disease without esophagitis; Type 2 diabetes mellitus with hyperglycemia 05/03/2025 [facility] CALL CENTER [address] [place] [address] Brian Baptiste [facility] 04/20/2025 Refill [facility] [address] [place] [address] Rad Galvan MD 04/12/2025 Refill [facility] [address] [place] [address] Rad Galvan MD Chronic midline low back pain without sciatica 04/12/2025 Telephone [facility] [address] [place] [address] Rad Galvan MD Med Management 04/08/2025 Telephone [facility] [address] [place] [address] Rad Galvan MD Med Management 04/07/2025 10:00 AM EDT Office Visit [facility] [address] [place] [address] Rad Galvan MD Type 2 diabetes mellitus [...] disorder 04/07/2025 Travel 04/01/2025 External PBMM Data [facility] C[facility] [address] [place] [address] Pharmacy, Payor Data 03/31/2025 Telephone [facility] [address] [place] [address] Rad Galvan MD Blood Sugar Problem from [...] Sister Nicole Brito Relation Name Status Comments [place] Daughter Yennifer Monteros Father Jakob Fish Mother Meseret Villasenor Sister [...] Office Visit [facility] [address] [facility] [address] [place] [address] Sidney Barraza MD [address] [facility] [address] [place] [address] 08/01/2025 10:15 AM EDT Office Visit [facility] [address] [facility] [place] [address] Rad Galvan MD [address] [facility] [place] [address] Health Maintenance Due Date Last Done Comments COLON CANCER SCREENING 5 YEA R SIGMOID[address]COPY 2002 [address] COLONOGRAPHY 2002 FECAL OCCULT BLOOD TEST 2002 FIT Testing (1 year) 2002 TDAP/TD VACCINES (2 - Tdap) 01/23/2007 01/23/1997 ZOSTER VACCINE (1 of 2) 2007 DIABETIC EYE EXAM 02/13/2022 02/13/2021 HEPATITIS C SCREENING 03/28/2022 COVID-19 Vaccine ( - 2023-2 5 season) 2024 09/06/2022, 11/28/2021, [...] Date/Time Associated Diagnosis Comments SCANNED - LABS 06/20/2025 SCANNED - LABS 06/17/2025 SCANNED EKG 05/27/2025 [...] to Health Maintenance Results * LABS SCANNED (06/20/2025) Only the most recent of5 resultswithin the time period is included. Rad [...] Final Result * FOOT EXAM SCANNED (05/02/2025) us Rad Galvan MD CHART REVIEW TABS Fin al Result * (ABNORMAL) POC Glycosylated Hemoglobin (Hb A1C) (04/07/2025 9:42 AM EDT) Hemoglobin A1C 7.8(A) 4.5 - 5.7 % [facility] Lot Number [id number] [facility] Expiration Date 10/26/2026 [facility] Blood 04/07/2025 9:42 AM EDT Result Arvind Galvan MD POINT OF CARE TEST ORDER RICH Final Result [facility]
[address] [place] [address], * (ABNORMAL) Albumin/Creatinine Ratio Urine (01/07/2025 3:18 PM EST) Pathologist [facility] POC ALBUMIN, URINE 30 mg/L POC CREATININE, URINE 50 mg/dL POC Urine Albumin Creatinine Ratio 30-300 <30 Comment:abnormal Lot Number [id number] Expiration Date 10/23/2025 Urine 01/07/2025 3:18 PM EST Rad Galvan MD POINT OF CARE TEST ORDER RICH Final Result * SCANNED - MAMMO (02/18/2023) Anatomical Region Laterality Modality Other Rad Galvan MD CHART REVIEW TABS Fin al Result * SCANNED - DEXA (02/18/2023) Anatomical Region Laterality Modality Other Rad Galvan MD CHART REVIEW TABS Fin al Result * (ABNORMAL) Cologuard - Stool, Per Rectum (02/15/2023 4:07 PM EDT) Pathologist [facility] Cologuard Positive( A) Negative 02/25/2023 5:18 PM EDT [facility] (CLIA #:[id number]) Comment: POSITIVE TEST RESULT. A positive Cologuard [...] (Kathleen Roberts al, N Engl J Med 2014;370(14):4356-4779.) Cologuard may produce a false negative or false positive result (no colorectal cancer or precancerous polyp present at colonoscopy follow up). A negative Cologuard test result does not guarantee the absence of CRC or advanced adenoma (pre-cancer). The current Cologuard screening interval is every 3 years. ([place] Cancer Society and U.S. Multi-Society Task Force). Cologuard performance data in a 10,000 patient pivotal study using colonoscopy as the reference method can be accessed at the following location: www.Niblitz/results. Additional description of the Cologuard test process, warnings and precautions can be found at www.Nouvou, [email or web address].rd.com. Stool specimen (specimen) Specimen from rectum / Unknown 02/15/2023 4:07 PM EDT 02/18/2023 3:05 PM EDT Rad Galvan MD BODY FLUIDS AND STOOLS O RDERABLES Final Result [facility] (CLIA #:[id number]) [address] [place] [address], from Last 3 Months or Most Recently Relevant to Health Maintenance Insurance [employer] PPO Care Teams Analytical Strategist Relationship Specialty Start Date End Date Rad Galvan MD [address] [facility] [address] PCP - General Family Medicine 04/15/22
--- OUTSIDE RECORDS SUMMARY | 2025-06-23 10:18 | XMS_ITS | Encounter Summary ---
Author Organization [facility] Address [address] [place] [address] Care Team Providers Care Aerospace Products Sales Engineer Name Role Phone Andrew Lee MD Primary Care Provider [phone] Uli Salcedo Unavailable [phone] Rad Galvan MD Primary Care Provider [phone] Encounter Details Date Type Department Care Team (Late st Contact Info) Description 01/11/2025 Orders Only External Location [address] [place] [address] Uli Salcedo PA [address] [place], [place] [id number] Social History Tobacco Use Types Packs/Day Years [...] Description 06/24/2025 12:45 PM EDT Office Visit [facility] [place] [facility] [address] [facility] [place] [address] Elvin Schuler MD [address] [place] [address] documented as of this encounter [...] on filedocumented in this encounter Care Teams Aerospace Products Sales Engineer Relationship Specialty Start Date End Date Andrew Lee MD [address] [place] [address] [address] [place] [address] PCP - General 04/06/21 04/07/25 Rad Galvan MD [address] [place] [address] PCP - General 04/08/25 Uli Salcedo PA [address] [place] [address] Referring Physician 02/03/25 documented as of this encounter
--- OUTSIDE RECORDS SUMMARY | 2025-06-23 10:18 | XMS_ITS | Encounter Summary ---
Author Organization [facility] Address [address] [place] [address] Care Team Providers Care Ged Preparation Teacher Name Role Phone Uli Salcedo Unavailable [phone] Rad Galvan MD Primary Care Provider [phone] Reason for Visit * Reason Onset Date Comments HCN - Patient Message 06/17/2025 Encounter Details Date Type Department Care Team (Late st Contact Info) Description 06/17/2025 Telephone [facility] [place] [facility] [address] [facility]. [address] [place] [phone] Elvin Schuler MD [address] [place] [address] HCN - Patient Message Social [...] Telephone Encounter - Neptali Johnson RN - 06/21/2025 9:25 AM EDT Labs received and reviewed with Dr schuler. NA 129, KCL 4.4/ creatinine 1.30/ BUN 35. ContactedMs alcantar and advised to send PAD reading this am to assess. Ms Alcantar reported feeling dizzy this am. Reports she does not have b/p machine at home so readings are not known. Discussed with Dr Schuler and advised to hold on ordering any additional IV diuretics today. Advised could take metolazone 5mg today and tomorrow (if needed). If symptoms do not improve with metolazone, can order IVdiuretics on If needed. Ms Alcantar contacted and advised. Also advised ED precautions if symptoms continue. PAD reading sent during call. 25 yesterday and 22 today * Telephone Encounter - Neptali Johnson RN - 06/21/2025 8:41 AM EDT Contacted [facility] to request lab results from yesterday. [facility] stated they would fax. PAD reading 25 yesterday. No reading today * Addendum Note - Neptali Johnson RN - 06/20/2025 3:57 PM EDTAddended by: NEPTALI JOHNSON on: 06/20/2025 03:57 PM Modules accepted: Orders * Telephone Encounter - Neptali Johnson RN - 06/20/2025 2:53 PM EDT [...] optimal time of day to reach caller: [phone] Note: Please do not reply to this message. Follow-up communication and further actions as a result of this message need to be communicated with the patient directly, if the patient is not active onMyChart. If the patient is active on MyChart, they will receive notification of the communication/outcome via MyChart. * Telephone Encounter - Neptali Johnson RN - 06/20/2025 9:01 AM EDT [...] optimal time of day to reach caller: [phone] Note: Please do not reply to this [...] Description 06/24/2025 12:45 PM EDT Office Visit [facility] [place] [facility] [address] [place] [address] Elvin Schuler MD [address] [place] [address] Scheduled Orders Name Type Priority Associated Diagnoses Orde r Schedule Basic Metabolic Panel, Plasma Lab Routine Chronic systolic congestive heart failure (CMS/HCC) Expected: 06/20/2025 (Approximate), Expires: 12/22/2026 N-Terminal Probnp, Plasma Lab Routine Chronic systolic congestive heart failure (CMS/HCC) Expected: 06/20/2025 (Approximate), Expires: 12/22/2026 documented as of this encounter Visit Diagnoses [...] documented as of this encounter Care Teams Ged Preparation Teacher Relationship Specialty Start Date End Date Rad Galvan MD [address] [place] [address] PCP - General 04/08/25 Uli Salcedo PA [address] [place] [address] Referring Physician 02/03/25 documented as of this encounter
--- OUTSIDE RECORDS SUMMARY | 2025-06-23 10:18 | XMS_ITS ---
Author Organization [facility] Address [address] [place] [address] Care Team Providers Care Paint Striping Machine Operator Name Role Phone Rad Galvan MD Primary Care Provider + [facility] Status:Enrolled (Active) Start date:04/13/2025 Enrollment date:04/13/2025 Current support & services provided:Adherence- Cholesterol, Adherence- Hypertension Linked medications:Atorvastatin Calcium (Active), Valsartan (Active) Overview Atorvastatin and valsartan filled 03/26/2025 #30 day both have refills Case Team Name Relationship Phone Danielle Da Silva LPN(Responsible Staff) Licensed Mane cody Nurse Continued Care and Services Coordination
--- OUTSIDE RECORDS SUMMARY | 2025-06-23 10:18 | XMS_ITS | Encounter Summary ---
Author Organization [facility] Address [address] [place] [address] Care Team Providers Care Mannequin Wig Maker Name Role Phone Rad Galvan MD Primary Care Provider + Encounter Details Date Type Department Care Team (Late st Contact Info) Description 05/03/2025 [facility] [address] [place] [address] [facility] [address] [place], [place] [id number] Social History Tobacco Use Types Packs/Day Years [...] Description 07/13/2025 1:00 PM EDT Office Visit [facility] [address] [facility] [address] [place] [phone] Sidney Barraza MD [address] [place] [address] 08/01/2025 10:15 AM EDT Office Visit [facility] [address] [place] [address] Rad Galvan MD [address] [place] [address] documented as of this encounter Visit Diagnoses Not on filedocumented in this encounter Additional Health Concerns Assessment Noted Time PHQ-2 Depression Total Score: 1 02/17/20 24 10:24 AM EDT documented as of this encounter Care Teams Mannequin Wig Maker Relationship Specialty Start Date End Date Rad Galvan MD [address] [place] [address] PCP - General Family Medicine 04/15/22 documented as of this encounter
--- OUTSIDE RECORDS SUMMARY | 2025-06-23 10:18 | XMS_ITS | Encounter Summary ---
Author Organization [facility] Address [address] [place] [address] Care Team Providers Care Ribbon Lap Machine Tender Name Role Phone Rad Galvan MD Primary Care Provider + Reason for Visit * Reason Comments Med Refill Encounter Details Date Type Department Care Team (Late st Contact Info) Description 06/02/2025 Refill [facility] [address] [place] [address] Rad Galvan MD [address] [place] [address] Longstanding persistent atrial fibrillation; Seizure [...] Description 07/13/2025 1:00 PM EDT Office Visit [facility] [address] [facility] [address] [place] [address] Sidney Barraza MD [address] [facility] [address] [place] [address] 08/01/2025 10:15 AM EDT Office Visit [facility] [address] [place] [address] Rad Galvan MD [address] [place] [address] documented as of this encounter [...] documented as of this encounter Care Teams Ribbon Lap Machine Tender Relationship Specialty Start Date End Date Rad Galvan MD [address] [place] [address] PCP - General Family Medicine 04/15/22 documented as of this encounter
--- OUTSIDE RECORDS SUMMARY | 2025-06-23 10:18 | XMS_ITS | Encounter Summary ---
Author Organization [facility] Address [address] [id number] Care Team Providers Care Manager User Interface Name Role Phone Uli Salcedo Unavailable [phone] Rad Galvan MD Primary Care Provider [phone] Encounter Details Date Type Department Care Team (Late st Contact Info) Description 04/26/2025 Telephone [facility] [place] [address] [facility] [place] [address] Yaritza Johnson, RN [facility] [address] [place] [address] Social History Tobacco Use Types Packs/Day Years [...] Description 06/24/2025 12:45 PM EDT Office Visit [facility] [place] [facility] [address] [place] [address] Elvin Schuler MD [address] [place] [address] documented as of this encounter Visit Diagnoses [...] as of this encounter Care Teams Manager User Interface Relationship Specialty Start Date End Date Rad Galvan MD [address] [place] [address] PCP - General 04/08/25 Uli Salcedo PA [address] [place] [address] Referring Physician 02/03/25 documented as of this encounter
--- OUTSIDE RECORDS SUMMARY | 2025-06-23 10:18 | XMS_ITS | Clinical Summary ---
Author Organization [facility] Address [address] [place] [address] Care Team Providers Care Senior Report Developer Name Role Phone Uli Salcedo Unavailable Rad Galvan MD Primary Care Provider [phone] Allergies Active Allergy Reactions Criticality Noted Date [...] Type Department Care Team Description 06/17/2025 Telephone [facility] [address] [place] [address] Elvin Schuler MD HCN - Patient Message 06/16/[address] [address] Elvin Schuler MD HCN - Patient Message 04/26/[address] [phone] Yaritza Johnson RN 04/08/2025 11:00 AM EDT Office Visit [address] [phone] Elvin Schuler MD Chronic systolic congestive heart failure (CMS/HCC) (Primary Dx) 04/08/2025 Travel 04/07/[address] [phone] Elvin Schuler MD 03/30/2025 10:40 AM EDT - 03/30/2025 12:00 PM EDT Surgery Cardiac Hydraulic Lift Driver [address] [place] [phone] Brodie Carranza MD Cardiomems w/Right Heart Cath [28740 (CPT )] 03/30/2025 9:45 AM EDT - 03/30/2025 2:35 PM EDT Hospital Encounter Cardiac Hydraulic Lift Driver [address] [place] [phone] Brodie Carranza MD Congestive heart failure, unspecified [...] Description 06/24/2025 12:45 PM EDT Office Visit [facility] [address] [place] [address] Elvin Schuler MD [address] [place] [address] Health Maintenance Due Date Last Done Comments [facility]-Bone Density Scan 1957 [facility]-/Child/Adol SDOH Screenings 1957 Diabetes: Dental Exam 1967 [facility]- SDOH Screenings 1975 [facility]-Adult SDOH Screenings 1975 [facility]-DTaP,Tdap,and Td Vaccines (1 - Tdap) 01/24/1997 01/23/1997 CT Colonography 2002 Colonoscopy 2002 FIT 2002 FOBT 2002 Sigmoidoscopy 2002 [facility]-Breast Cancer Screening 2007 [facility]-Zoster Vaccines (1 of 2) 2007 [facility]-BVIMO-44 Vaccine ( season) 2024 09/06/2022, 11/28/2021, 03/06/2021, [...] Diagnosis Comments BASIC METABOLIC PANEL, PLASMA Routine 06/20/2025 N-TERMINAL PROBNP, PLASMA Routine 06/17/2025 10:48 AM [...] Recently Relevant to Health Maintenance Results * Basic Metabolic Panel, Plasma (06/20/2025) Only the most recent of3 resultswithin the time period is included. External Glucose 95 External BUN 35 External Creatinine Blood 1.30 mg/dL External Sodium (Na) 129 mEq/L External Potassium (K) 4.4 External Chloride (Cl) 93 External Carbon Dioxide (CO2) 30 External Anion Gap (AG) 10.4 External Calcium (Ca) 9.3 External Estimated GFR 41 Blood Venous blood specimen / Unknown 06/20/2025 us Historical Provider MD LAB BLOOD ORDERABLES Kailey l Result * (ABNORMAL) N-Terminal Probnp, Plasma (06/17/2025 10:48 AM EDT) External Pro-BNP 1,480 EXTERNAL LAB Comment:High Blood Venous blood specimen / Unknown 06/17/2025 10:48 AM EDT Historical Provider MD LAB BLOOD ORDERABLES Kailey l Result EXTERNAL [...] into the left pulmonary artery, percutaneous approach. ([id number]) Access: Right Jugular vein 11Fr [place] Sheath Procedure: After obtaining a consent, the patient was brought into the catheterization laboratory, placed on the table and the next was prepped and draped in a sterile fashion. Next, the skin overlaying right jugular vein was anesthetized using 1% Lidocaine. Subsequently, utilizing an 18gauge goOutMap needle, right jugular vein was accessed utilizing ultrasound guidance. Using the J-tipped wire included in the access kit, which was inserted through the needle, an 11Fr [place] sheath was inserted over the wire, subsequently blood was aspirated and the sheath flushed. Subsequently a 7 [place] wedge catheter was passed through the [place] sheath into the RA, RV and PA [...] right pulmonary artery for calibration. Ultimately the [place] sheath was withdrawn with patient exhaling during [...] Co-Oximetry Mixed Venous (03/30/2025 11:23 AM EDT) [facility] POCT Oxyhemoglobin, Mixed Venous 59.1 % 03/30/2025 11:24 AM EDT [facility] Process Control Engineer ID Eva Hernandez 03/30/2025 11:24 AM EDT HEALTHCARE LAB Device ID [id number] 1 03/30/2025 11:24 AM EDT HEALTHCARE LAB POCT Sample Site PA 03/30/2025 11:24 AM EDT HEALTHCARE LAB POCT Total Hemoglobin 11.8 11.2 - 15.7 g/dL 03/30/2025 11:24 AM EDT HEALTHCARE LAB 03/30/2025 11:2 3 AM EDT 03/30/2025 11:24 AM EDT us Brodie Carranza MD LAB POINT OF CARE TEST DOCKED DEVICE UNSOLICITED RESULTS Final Result [facility] [address] [place] [address] * POCT CO-Oximitry, Venous (03/30/2025 11:19 AM EDT) POCT OXYHEMOGLOBIN, VENOUS 64 40 - 70 % 03/30/2025 11:20 AM EDT HEALTHCARE LAB Process Control Engineer ID Eva Hernandez 03/30/2025 11:20 AM EDT HEALTHCARE LAB Device ID [id number] 1 03/30/2025 11:20 AM EDT HEALTHCARE LAB POCT Sample Site SVC 03/30/2025 11:20 AM EDT HEALTHCARE LAB POCT Total Hemoglobin 12.1 11.2 - 15.7 g/dL 03/30/2025 11:20 AM EDT HEALTHCARE LAB Venous blood specimen / Unknown 03/30/2025 11:19 AM EDT 03/30/2025 11:20 AM EDT us Brodie Carranza MD LAB POINT OF CARE TEST DOCKED DEVICE UNSOLICITED RESULTS Final Result [facility] [address] [place] [address] * Nerinx Hepatitis C Antibody (11/26/2020 6:51 PM EST) [facility]inx Hepatitis C Ab NEGATIVE Reference Range: Negative [facility] 11/26/2020 6:51 PM EST 11/26/2020 7:09 PM EST us Justo Morse MD LAB BLOOD ORDERABLES Final Re sult [facility]QUEST from Last 3 Months or Most Recently Relevant to Health Maintenance Insurance [employer] MEDICARE Advance Directives Documents on File Type Date Recorded Patient Cable Braider Expl anation Advance Directives and Living Will 03/30/2025 LIVING WILL DIRECTIV E Healthcare Agents on File Name Relationship Healthcare Agent Relationshi p Communication Yennifer Edwards Daughter Next of Kin Care Teams Senior Report Developer Relationship Specialty Start Date End Date Rad Galvan MD [address] [place] [address] PCP - General 04/08/25 Uli Salcedo PA [address] [place] [address] Referring Physician 02/03/25
--- OUTSIDE RECORDS SUMMARY | 2025-06-23 10:18 | XMS_ITS | Encounter Summary ---
Author Organization [facility] Address [address] [place] [address] Care Team Providers Care Eligibility Counselor Name Role Phone Andrew Lee MD Primary Care Provider [phone] Uli Salcedo Unavailable [phone] Rad Galvan MD Primary Care Provider [phone] Encounter Details Date Type Department Care Team (Late st Contact Info) Description 04/07/2025 Telephone [facility] [place] [facility] [address] [facility] [place] [phone] Elvin Schuler MD [address] [place] [address] Social History Tobacco Use Types [...] Description 06/24/2025 12:45 PM EDT Office Visit [facility] [place] [facility] [address] [place] [address] Elvin Schuler MD [address] [place] [address] documented as of this encounter Visit Diagnoses [...] documented as of this encounter Care Teams Eligibility Counselor Relationship Specialty Start Date End Date Andrew Lee MD [address] [place] [address] [address] [place] [address] PCP - General 04/06/21 04/07/25 Rad Galvan MD [address] [place] [address] PCP - General 04/08/25 Uli Salcedo PA [address] [place] [address] Referring Physician 02/03/25 documented as of this encounter
--- OUTSIDE RECORDS SUMMARY | 2025-06-23 10:18 | XMS_ITS | Encounter Summary ---
Author Organization [facility] Address [address] [place] [address] Care Team Providers Care Pesticide Use Medical Coordinator Name Role Phone Uli Salcedo Unavailable [phone] Rad Galvan MD Primary Care Provider [phone] Reason for Referral * Home Health (Routine) - Authorized Specialty Diagnoses / Procedures Referred By Contaleida t Referred To Contact Home Health Services Diagnoses Chronic systolic congestive heart failure (CMS/HCC) Chika Linares APRN [address] [place] [address] Phone: tel: fax: Referral ID Status Reason Start Date Expiration Date Visits Requested Visits Authorized [id number] Authorized Specialty Services Required 06/17/2025 12/17/2026 999 999 Reason for Visit * Reason Onset Date Comments HCN - Patient Message 06/16/2025 Encounter Details Date Type Department Care Team (Late st Contact Info) Description 06/16/2025 Telephone [facility] [place] [facility] [address] [facility] [place] [phone] Elvin Schuler MD [address] [place] [address] HCN - Patient Message Social [...] RN - 06/17/2025 9:59 AM EDTAddended by: ENPTALI JOHNSON on: 06/17/2025 09:59 AM Modules accepted: Orders * Telephone Encounter - Neptali Johnson RN - 06/17/2025 9:04 AM EDT Orders received from Chika Linares APRN to order one time dose of IV bumex 4mg. Spoke to Anne at [facility] infusion suite. Stated they could collect labs in infusion and administer IV bumex. Stated order would need to be faxed to [phone]. Orders placed and faxed. Contacted ortiz and [...] 1 week. Reports she was admitted at [facility] 2 weeks ago. Reports weight as [...] and repeat labs. Stated shewould go to [facility] for repeat. Lab order faxed to [phone] Contacted [facility] medical records and requested records be [...] optimal time of day to reach caller: [phone] after 2 PM Note: Please do not reply to this message. Follow-up communication and further actions as a result of this message need to be communicated with the patient directly, if the patient is not active onMyChart. If the patient is active on MyChart, they will receive notification of the communication/outcome via [employer]. documented in this encounter Plan of Treatment Upcoming Encounters Date Type Department Care Team (Late st Contact Info) Description 06/24/2025 12:45 PM EDT Office Visit [facility] [place] [address] [facility] [place] [address] Elvin Schuler MD [address] [place] [address] Scheduled Orders Name Type Priority Associated Diagnoses [...] documented as of this encounter Care Teams Pesticide Use Medical Coordinator Relationship Specialty Start Date End Date Rad Galvan MD [address] [place] [address] PCP - General 04/08/25 Uli Salcedo PA [address] [place] [address] Referring Physician 02/03/25 documented as of this encounter
--- NOTE | 2025-06-23 10:21 | XR_ITS ---
FINAL REPORT CLINICAL HISTORY: Nonspecific cough FINDINGS: PA and lateral views of the chest are obtained. There is no prior exam for comparison. There is a right-sided pacemaker in a left-sided AICD. The heart is mildly enlarged. The lungs are clear. There is no pleural effusion, pneumothorax, or acute osseous abnormality. IMPRESSION: No radiographic evidence of acute cardiac or pulmonary disease. Reviewed, Interpreted and Dictated by Neetu Waite MD Transcribed by Prabha To Authenticated and [facility]
[2025-06-23 12:06] LABS: Anion Gap 13.4 mEq/L (5-15); Blood Urea Nitrogen 38 mg/dl (7-17); Calcium 9.1 mg/dl (8.4-10.2); Carbon Dioxide 24 mmol/L (22.0-30.0); Chloride 93 mmol/L (98-107); Creatinine,Serum 1.60 mg/dl (0.52-1.04); Estimated Glomerular Filt Rate 32 ml/min (>60); GFR (African American) 39 ML/MIN (>60); Glucose 230 mg/dl (74-100); Potassium 4.4 mmoL/L (3.5-5.1); Sodium 126 mmol/L (136-145)
[2025-06-23 12:14] LABS: NT Pro Brain Natriuretic Pep. 1800 pg/mL (0-125)
== END 2025-06-23 23:59 | disposition home or self-care (01) ==
LOC: LAB 10:16 → RAD 10:20
PROVIDERS: PCP Family Medicine; Visit Provider Physician Assistant
DX: I50.1 Left ventricular failure, unspecified (principal)
CPT/HCPCS: 36415; 71046; 80048; 83880

== ENCOUNTER 2025-06-27 11:57 | Inpatient (IN) | payer MEDICARE, SELFPAY ==
--- NOTE | 2025-06-27 12:04 | XR_ITS ---
FINAL REPORT CLINICAL HISTORY: Shortness of breath COMPARISON: 06/23/2025 FINDINGS: The heart size is mildly enlarged. There is a right-sided pacemaker and a left-sided defibrillator. There There is no focal infiltrate or edema. There are no pleural effusions. There is no pneumothorax. There is no osseous abnormality. IMPRESSION: No acute cardiopulmonary process Reviewed, Interpreted and Dictated by J Carlos Foote MD Transcribed by Prabha To Authenticated and [facility]
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
[2025-06-27 12:33] LABS: Hematocrit 34.0 % (37.0-47.0); Hemoglobin 11.7 g/dL (12.2-16.2); Immature Granulocytes % 0.6 %; Mean Corpuscular HGB Conc 34.4 g/dL (31.8-35.4); Mean Corpuscular Hemoglobin 34.3 pg (27.0-31.2); Mean Corpuscular Volume 99.7 fl (81-99); Nucleated Red Blood Cells % 0 %; Platelet Count 130 K/mm3 (142-424); Red Blood Count 3.41 M/mm3 (4.20-5.40); Red Cell Distribution Width-SD 53.9 fL; White Blood Count 6.7 K/mm3 (4.8-10.8)
[2025-06-27 12:51] LABS: Alanine Aminotransferase 28 U/L (12-78); Albumin Level 4.4 g/dl (3.5-5.0); Albumin/Globulin Ratio 1.2 (1.1-1.8); Alkaline Phosphatase 361 U/L (38-126); Anion Gap 12.4 mEq/L (5-15); Aspartate Amino Transferase 48 U/L (14-36); Bilirubin,Total 1.0 mg/dl (0.2-1.3); Blood Urea Nitrogen 39 mg/dl (7-17); Calcium 9.9 mg/dl (8.4-10.2); Carbon Dioxide 33 mmol/L (22.0-30.0); Chloride 82 mmol/L (98-107); Creatinine,Serum 1.30 mg/dl (0.52-1.04); Estimated Glomerular Filt Rate 41 ml/min (>60); GFR (African American) 49 ML/MIN (>60); Globulin 3.6 g/dL (1.3-3.2); Glucose 150 mg/dl (74-100); Magnesium 2.3 mg/dl (1.6-2.3); Potassium 3.4 mmoL/L (3.5-5.1); Sodium 124 mmol/L (136-145); Total Protein,Serum 8.0 g/dl (6.3-8.2)
[2025-06-27 12:55] VITALS: BP 129/71; PULSE 71; RESP 16; TEMP 36.3; O2SAT 99; BMI 40.0
[2025-06-27] MEDS: BUMETANIDE 10 MG in 0.9 % SODIUM CHLORIDE 60 ML IV ×2 (13:00→21:09)
[2025-06-27 13:14] LABS: Troponin I < 0.01 ng/ml (0.00-0.034)
[2025-06-27] MEDS: BUMETANIDE 1MG/4ML VIAL 4 MG IV (13:15)
[2025-06-27 13:31] VITALS: BMI 38.7
[2025-06-27 13:51] LABS: NT Pro Brain Natriuretic Pep. 1280 pg/mL (0-125)
[2025-06-27 15:09] LABS: Adenovirus,PCR Not Detected (NotDetected); Chlamydophila Pneumoniae, PCR Not Detected (NotDetected); Coronavirus 19, PCR Not Detected (NotDetected); Coronovirus HKU1,PCR Not Detected (NotDetected); Influenza A, PCR Not Detected (NotDetected); Influenza AH1, 2009 Not Detected (NotDetected); Influenza AH1, PCR Not Detected (NotDetected); Influenza AH3,PCR Not Detected (NotDetected); Influenza B, PCR Not Detected (NotDetected); Mycoplasma Pneumoniae, PCR Not Detected (NotDetected); Parainfluenza 1, PCR Not Detected (NotDetected); Parainfluenza 2, PCR Not Detected (NotDetected); Parainfluenza 3, PCR Not Detected (NotDetected); Parainfluenza 4, PCR Not Detected (NotDetected)
[2025-06-27 16:00] VITALS: BP 129/69; PULSE 70; PULSE 71; RESP 18; TEMP 36.6; O2SAT 98
[2025-06-27 16:11] LABS: Troponin I < 0.01 ng/ml (0.00-0.034)
--- NOTE | 2025-06-27 17:06 | ECG_ITS ---
APPROVED REPORT Exam: Resting ECG HR:70 bpm ECG Measurements Heart Rate 70 AXES WY 79 P 155 QRSd 72 QRS -77 QT 376 T -3 QTc 396 Conclusion ELECTRONIC ATRIAL PACEMAKER ELECTRONIC VENTRICULAR PACEMAKER ABNORMAL ECG UNCONFIRMED REPORT Electronically signed by : Rad Branch MD 06/27/2025 18:19:23
[2025-06-27] MEDS: BELLADONNA ALKALOIDS 60 ML ML PO (17:17)
[2025-06-27 18:14] LABS: Troponin I < 0.01 ng/ml (0.00-0.034)
--- NOTE | 2025-06-27 18:16 | PC.NURSE ---
aox4, tolerating room air. ambulating with standby assist to restroom for elimination. c/o shest pain x1 dr cavanaugh made aware. ekg and troponin obtained gi cocktail admin per md orders.
[2025-06-27 20:00] VITALS: BP 112/46; PULSE 70; PULSE 71; RESP 18; TEMP 36.8; O2SAT 100
[2025-06-27] MEDS: PHENOBARBITAL 32.4 MG 97.2 MG PO (20:23)
[2025-06-27] MEDS: ROPINIROLE 1MG TABLET 2 MG PO (20:23)
[2025-06-27] MEDS: POTASSIUM CHLORIDE 20MEQ TAB 20 MEQ PO (20:23)
[2025-06-27] MEDS: ATORVASTATIN 10MG TABLET 10 MG PO (20:23)
[2025-06-27] MEDS: PANTOPRAZOLE 40MG TABLET 40 MG PO (20:24)
[2025-06-27] MEDS: GABAPENTIN 600MG TABLET 600 MG PO (20:24)
--- NOTE | 2025-06-27 20:40 | PC.NURSE ---
patient has pill packs, empty rx bottoms and a home accu-chek machine locked in room drawer - unable to confirm the remainder of home medications.
--- NOTE | 2025-06-27 20:42 | PC.NURSE ---
patient has a dexcom on - it read 143. the hospital accu-check read 140.
--- NOTE | 2025-06-27 21:07 | PC.NURSE ---
patient reports syncopal episode at home roughly 5 months in bathroom when pulling up pants - states she fell into the wall and put a dent in the wall. bed alarm placed on patient for safety and educated to use the call light for transfers.
[2025-06-28] VITALS (8 sets, daily range): BP systolic 98–136; BP diastolic 49–64; PULSE 65–100; RESP 16–20; TEMP 36.4–36.6; O2SAT 91–97; BMI 39.4; BMI 37.8
[2025-06-28] MEDS: ACETAMINOPHEN 325MG TAB 650 MG PO (00:29)
[2025-06-28 04:00] LABS: POC Glucose,Bedside 140 (70-110)
[2025-06-28 06:30] LABS: Hematocrit 32.8 % (37.0-47.0); Hemoglobin 11.0 g/dL (12.2-16.2); Immature Granulocytes % 0.7 %; Mean Corpuscular HGB Conc 33.5 g/dL (31.8-35.4); Mean Corpuscular Hemoglobin 33.4 pg (27.0-31.2); Mean Corpuscular Volume 99.7 fl (81-99); Nucleated Red Blood Cells % 0 %; Platelet Count 141 K/mm3 (142-424); Red Blood Count 3.29 M/mm3 (4.20-5.40); Red Cell Distribution Width-SD 55.0 fL; White Blood Count 7.5 K/mm3 (4.8-10.8)
[2025-06-28 06:31] LABS: Albumin Level 3.4 g/dl (3.5-5.0); Chloride 79 mmol/L (98-107); Potassium 3.5 mmoL/L (3.5-5.1); Sodium 120 mmol/L (136-145)
[2025-06-28 06:33] LABS: Blood Urea Nitrogen 45 mg/dl (7-17)
[2025-06-28 06:34] LABS: Alanine Aminotransferase 24 U/L (12-78); Albumin/Globulin Ratio 0.9 (1.1-1.8); Alkaline Phosphatase 252 U/L (38-126); Anion Gap 8.5 mEq/L (5-15); Aspartate Amino Transferase 37 U/L (14-36); Bilirubin,Total 0.7 mg/dl (0.2-1.3); Calcium 9.3 mg/dl (8.4-10.2); Carbon Dioxide 36 mmol/L (22.0-30.0); Creatinine Clearance Estimated 50 mL/min (50-200); Creatinine,Serum 1.60 mg/dl (0.52-1.04); Estimated Glomerular Filt Rate 32 ml/min (>60); GFR (African American) 39 ML/MIN (>60); Globulin 3.9 g/dL (1.3-3.2); Glucose 186 mg/dl (74-100); Magnesium 2.1 mg/dl (1.6-2.3); Total Protein,Serum 7.3 g/dl (6.3-8.2)
--- NOTE | 2025-06-28 08:36 | HMH.PHAINT1 ---
Pharmacy Intervention Comments: HOME MEDICATION LIST VERIFIED USING LIST FROM OUTPATIENT PHARMACY, PT INTERVIEW AND RX BOTTLES.
[2025-06-28] MEDS: ALLOPURINOL 100 MG PO (09:24)
[2025-06-28] MEDS: DAPAGLIFLOZIN 10 MG PO (09:24)
[2025-06-28] MEDS: DIGOXIN 0.125 MG 125 MCG PO (09:24)
[2025-06-28] MEDS: METOPROLOL SUCCINATE XL 25MG TABLET 12.5 MG PO (09:25)
[2025-06-28] MEDS: PANTOPRAZOLE 40MG TABLET 40 MG PO ×2 (09:26→20:42)
[2025-06-28] MEDS: ISOSORBIDE MONO 30MG TAB.ER.24H 30 MG PO (09:26)
[2025-06-28] MEDS: POTASSIUM CHLORIDE 20MEQ TAB 20 MEQ PO ×2 (09:26→20:42)
[2025-06-28] MEDS: GABAPENTIN 600MG TABLET 600 MG PO ×2 (09:50→20:42)
[2025-06-28 10:00] LABS: POC Glucose,Bedside 292 (70-110)
[2025-06-28] MEDS: humaLOG MIX 75/25 3ML FLEXPEN 50 UNIT SUBCUT (10:24)
[2025-06-28] MEDS: BUMETANIDE 1MG/4ML VIAL 2 MG IV ×2 (10:24→11:47)
--- NOTE | 2025-06-28 10:41 | P.PN_ITS ---
<Statement entered by Seth Liu MD - 06/28/25 16:33> Rounded on patient after nurse practitioner. Personally examined and interviewed patient. Agree with exam findings and care plan as documented. Subjective *Date: 06/28/25 *Time: 11:29 Interval history: Patient feels well this morning, states her dyspnea is better. She does complain of neuropathy pain in her bilateral lower extremities, she takes gabapentin 600 mg twice daily. Edema is improving. Continuing diuresis, transitioning from Bumex drip to IV twice daily. Hyponatremia noted this morning on labs, initiate hypertonic saline. Serial BMPs. Medical Exam Vital signs and Labs for Last 24 Hours: Vital Signs Temp Pulse Pulse Resp BP Pulse Ox O2 Del Method 06/28/25 10:02 Room Air 06/28/25 09:24 100 H 06/28/25 09:00 Room Air 06/28/25 08:00 Room Air 06/28/25 08:00 97.5 F L 70 16 110/50 L 96 Room Air 06/28/25 06:41 Room Air 06/28/25 06:00 70 06/28/25 05:00 Room Air 06/28/25 03:57 97.8 F 70 16 98/64 L 94 L Room Air 06/28/25 03:00 Room Air 06/28/25 01:00 Room Air 06/28/25 00:00 70 06/28/25 00:00 97.8 F 72 18 136/51 L 91 L Room Air 06/27/25 23:00 Room Air 06/27/25 21:00 Room Air 06/27/25 20:00 70 06/27/25 20:00 Room Air 06/27/25 20:00 98.2 F 71 18 112/46 L 100 Room Air 06/27/25 18:14 Room Air 06/27/25 17:00 Room Air 06/27/25 16:00 70 06/27/25 16:00 97.8 F 71 18 129/69 98 Room Air 06/27/25 15:00 Room Air 06/27/25 13:00 Room Air 06/27/25 12:55 97.4 F L 71 16 129/71 99 Room Air 06/27/25 12:04 Room Air Intake and Output 06/27/25 06/28/25 06/28/25 23:59 07:59 15:59 Intake Total 321.5 / 561.5 400 / 400 Output Total 2450 / 4700 800 / 1800 1000 / 1800 Balance -2128.5 / -4138.5 -800 / -1400 -600 / -1400 Intake: Intake, Oral Amount 240 / 480 400 / 400 Intake, Total IV Amount 81.5 / 81.5 Output: Output, Urine Amount 2450 / 4700 800 / 1800 1000 / 1800 Other: Number of Voids 1 Number of Unmeasured Voids 0 0 Number of Bowel Movements 1 Weight 94.892 kg 90.718 kg Patient Weight 06/28/25 23:59 Weight 90.718 kg Laboratory Results - last 24 hr 06/27/25 12:25: WBC 6.7, RBC 3.41 L, Hgb 11.7 L, Hct 34.0 L, MCV 99.7 H, MCH 34.3 H, MCHC 34.4, RDW 14.8, Plt Count 130 L, MPV 9.6, Neut % (Auto) 71.3, Lymph % (Auto) 14.6, [place] % (Auto) 9.6 H, Eos % (Auto) 3.3, Baso % (Auto) 0.6, Neut # (Auto) 4.8, Lymph # (Auto) 1.0, [place] # (Auto) 0.6, Eos # (Auto) 0.2, Baso # (Auto) 0.0, Sodium 124 L, Potassium 3.4 L, Chloride 82 L, Carbon Dioxide 33 H, Anion Gap 12.4, BUN 39 H, Creatinine 1.30 H, Estimated GFR 41 L, Est GFR ( Amer) 49 L, Glucose 150 H, Calcium 9.9, Magnesium 2.3, Total Bilirubin 1.0, AST 48 H, ALT 28, Alkaline Phosphatase 361 H, Troponin I < 0.01, NT-Pro-B Natriuret Pep 1280 H, Total Protein 8.0, Albumin 4.4, Globulin 3.6 H, Albumin/Globulin Ratio 1.2 06/27/25 15:00: Chlamy pneumoniae PCR Not detected, Adenovirus (PCR) Not detected, B. pertussis DNA (PCR) Not detected, Coronavirus OC43 (PCR) Not detected, Coronavirus HKU1 (PCR) Not detected, Coronavirus 229E (PCR) Not detected, SARS-CoV-2 (PCR) Not detected, Coronavirus NL63 (PCR) Not detected, Human Metapneumovir PCR Not detected, Influenza A (H1) PCR Not detected, Influ A (H1N1/09) PCR Not detected, Influenza A (H3) PCR Not detected, Influenza Type A (PCR) Not detected, Influenza Type B (PCR) Not detected, M. pneumoniae (PCR) Not detected, Parainfluenza 1 (PCR) Not detected, Parainfluenza 2 (PCR) Not detected, Parainfluenza 3 (PCR) Not detected, Parainfluenza 4 (PCR) Not detected, RSV (PCR) Not detected, Entero/Rhino (PCR) Not detected 06/27/25 15:40: Troponin I < 0.01 06/27/25 17:23: Troponin I < 0.01 06/27/25 20:31: POC Glucose 140 H 06/28/25 05:58: WBC 7.5, RBC 3.29 L, Hgb 11.0 L, Hct 32.8 L, MCV 99.7 H, MCH 33.4 H, MCHC 33.5, RDW 14.9, Plt Count 141 L, MPV 10.3, Neut % (Auto) 74.2, Lymph % (Auto) 14.8, [place] % (Auto) 7.6, Eos % (Auto) 2.3, Baso % (Auto) 0.4, Neut # (Auto) 5.6, Lymph # (Auto) 1.1, [place] # (Auto) 0.6, Eos # (Auto) 0.2, Baso # (Auto) 0.0, Sodium 120 L, Potassium 3.5, Chloride 79 L, Carbon Dioxide 36 H, Anion Gap 8.5, BUN 45 H, Creatinine 1.60 H D, Estimated Creat Clear 50, Estimated GFR 32 L, Est GFR ( Amer) 39 L D, Glucose 186 H D, Calcium 9.3, Magnesium 2.1, Total Bilirubin 0.7, AST 37 H, ALT 24, Alkaline Phosphatase 252 H , Total Protein 7.3, Albumin 3.4 L D, Globulin 3.9 H, Albumin/Globulin Ratio 0.9 L 06/28/25 09:52: POC Glucose 292 H I & O for Labs for Last 24 Hours: Intake & Output 06/25/25 06/26/25 06/27/25 08/05/25 23:59 23:59 23:59 23:59 Intake Total 561.5 / 561.5 400 / 400 Output Total 3900 / 4700 1800 / 1800 Balance -3338.5 / -4138.5 -1400 / -1400 Weight 92.986 kg 90.718 kg Constitutional: Present no acute distress, obese, chronically ill appearing and cooperative Head: Present atraumatic and normocephalic ENT: Present normal exam Neck: Present normal inspection Respiratory: Present decreased breath sounds and normal respiratory effort; Absent rhonchi, wheezes or crackles Cardiac: Present Reg Rate and Rhythm and No Murmur GI: Present soft and normal bowel sounds; Absent distention or tenderness Rectal (female): Present deferred (female): Present deferred Extremities: Present normal inspection, full ROM and edema (1+ to knees) Skin: Present intact; Absent erythema Neuro: Present Grossly Intact, alert, awake, oriented x 3 and moves all extremities Assessment and Plan *Assessment and plan (1) Acute exacerbation of CHF (congestive heart failure): Status: Acute Qualifiers: Heart failure type: combined systolic and diastolic Qualified Code(s): I50.43 - Acute on chronic combined systolic (congestive) and diastolic (congestive) heart failure Category: Medical Code(s): I50.9 - Heart failure, unspecified (2) CHF NYHA class IV (symptoms with any physical activity and at rest): Status: Acute Category: Medical Code(s): I50.9 - Heart failure, unspecified (3) Hyponatremia: Status: Acute Category: Medical Code(s): E87.1 - Hypo-osmolality and hyponatremia (4) Diabetes mellitus: Status: Acute Qualifiers: Diabetes mellitus type: type 2 Diabetes mellitus fpc insulin use: with nursing specialist use Diabetes mellitus complication status: with diabetic arthropathy Diabetes mellitus complication detail: with neuropathic arthropathy Qualified Code(s): E11.610 - Type 2 diabetes mellitus with diabetic neuropathic arthropathy; Z79.4 - assisted (current) use of insulin Category: Medical Code(s): E11.9 - Type 2 diabetes mellitus without complications (5) Acute hypokalemia: Status: Resolved Category: Medical Code(s): E87.6 - Hypokalemia (6) Hyperglycemia: Status: Acute Category: Medical Code(s): R73.9 - Hyperglycemia, unspecified (7) History of seizures: Status: Acute Category: Medical Code(s): Z87.898 - Personal history of other specified conditions (8) Neuropathic pain: Status: Acute Category: Medical Code(s): M79.2 - Neuralgia and neuritis, unspecified Plan Patient is a 70-year-old female with past medical history of atrial fibrillation, heart failure with reduced ejection fraction status post defibrillator, pacemaker, diabetes mellitus, pulmonary hypertension, cardiomyopathy, hypertension lipidemia anxiety who presents to the hospital for shortness of breath. According to patient she has been feeling short of breath for past few days, she also had increased weight gain over the past 2 weeks. Attempted adjustments to her diuretic regimen as an outpatient but did not have significant increase in urine output or improvement in her weight gain/edema. Presented to cardiology clinic, discussed case with cardiology provider today, they request admission for aggressive inpatient diuresis given worsening volume overload. Problems addressed as follows: #Acute on chronic combined heart failure #Hypertension #CAD #A-fib ?NYHA class IV, severe limitations or symptoms at rest. Patient has been advised by her multiple games dealer she is likely in need of a heart transplant. - Patient has history of grade 3 diastolic dysfunction and heart failure with reduced ejection fraction with 30%. BNP elevated on admission at 1280. On admission patient was initiated on a Bumex drip 1 mg/hour IV for the past 24 hours, transition today to Bumex 4 mg IV twice daily. Administer 5 mg metolazone daily, received 1 dose on admission. Patient has had significant urine output, 4.7 L since admission. Continuing to monitor. - Strict monitoring of intake and output & daily standing weights - Cardiology consulted to assist with care. - Continue home medications for heart failure and Lipitor 10 mg daily, dapagliflozin 10 mg daily, digoxin 125 micro daily, metoprolol succinate 12.5 mg daily - Continues Xarelto 20 mg nightly - Chest x-ray obtained that does not show any effusions or focal consolidation. Does have prominent pulmonary vasculature. - Initial troponin less than 0.01. Continued serial troponins remain negative. #Hyponatremia ? Patient sodium 124 on admission, 120 today. Discussed with cardiology, initiated hypertonic saline 3% at 25 mL/h for 24 hrs. Serial BMPs were every 8 hours. #Chronic kidney disease - Kidney function slightly elevated BUN 45, creatinine 1.6. Baseline creatinine 1.3. Expected due to diuresis, will continue to monitor. # Diabetes type 2, insulin-dependent - ACHS fingersticks, continue Humulin 70/30 50 units subcu daily. - Patient has Dexcom, may use for ACHS checks- calibrate once a shift. - Continue dapagliflozin 10 mg daily. ?Patient complains of diabetic neuropathy, continue gabapentin 600 mg twice diane ly. #Seizure disorder: Continue home phenobarbital 97.2 mg at bedtime. Full code Diabetic diet DVT prophylaxis-on Xarelto
[2025-06-28] MEDS: SODIUM CHLORIDE 3 % 500 ML 25 ML IV ×2 (11:47→19:41)
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
--- OUTSIDE RECORDS SUMMARY | 2025-06-28 14:16 | XMS_ITS | Encounter Summary ---
Author Organization [facility] Address [address] [place] [address] Care Team Providers Care Certified Adapted Physical Educator Name Role Phone Andrew Lee MD Primary Care Provider [phone] Uli Salcedo Unavailable [phone] Rad Galvan MD Primary Care Provider [phone] Encounter Details Date Type Department Care Team (Late st Contact Info) Description 04/07/2025 Telephone [facility] [place] [address] [facility] [place] [id number] Elvin Schuler MD [address] [place] [address] Social History Tobacco Use Types [...] Not at all 04/08/2025 11:00 AM Bora Pnag Moving or speaking so slowly that other [...] Care Team (Late st Contact Info) Description 07/08/2025 1:45 PM EDT Office Visit [facility] [place] [address] [place] [address] Elvin Schuler MD [address] [place] [address] documented as of this encounter Visit Diagnoses [...] documented as of this encounter Care Teams Certified Adapted Physical Educator Relationship Specialty Start Date End Date Andrew Lee MD [address] [place] [address] [address] [place] [address] PCP - General 04/06/21 04/07/25 Rad Galvan MD [address] [place] [address] PCP - General 04/08/25 Uli Salcedo PA [address] [place] [address] Referring Physician 02/03/25 documented as of this encounter
--- OUTSIDE RECORDS SUMMARY | 2025-06-28 14:17 | XMS_ITS | Encounter Summary ---
Author Organization [facility] Address [address] [place] [address] Care Team Providers Care Water Main Installer Helper Name Role Phone Uli Salcedo Unavailable [phone] Rad Galvan MD Primary Care Provider [phone] Reason for Visit * Reason Onset Date Comments HCN - Patient Message 06/17/2025 Encounter Details Date Type Department Care Team (Late st Contact Info) Description 06/17/2025 Telephone [facility] [place] [address] [facility] [place] [id number] Elvin Schuler MD [address] [place] [address] HCN - Patient Message Social [...] encounter Miscellaneous Notes * Telephone Encounter - Mami Aviles - 06/27/2025 2:08 PM EDT Status Update Call #1 1st call regarding the status of the initial request. Best contact number: [phone] (home) Optimal time of day to reach caller: ANYTIME Additional comments/information from caller: Pt called to let Neptali know that she was admitted at [facility]. No callback needed. Note: Please do not reply to this message. Follow-up communication and further actions as a result of this message need to be communicated with the patient directly, if the patient is not active onMyChart. If the patient is active on MyChart, they will receive notification of the communication/outcome via [employer]. * Telephone Encounter - Neptali Johnson RN - 06/27/2025 10:09 AM EDT Contacted Ms Alcantar to follow up. Ms Alcantar stated she was currently on the way to her appt with Dr Armstrong. Stated she was not feeling much better despite increasing oral diuretics. Advised to let us know of any additional changes after appt today. Voiced understanding * Telephone Encounter - Neptali Johnson RN - 06/23/2025 12:56 PM EDT Ms Alcantar contacted office and reported she saw Dr Urszula FELDER today for f/u. Reported bumex was increased to 4mg BID and plans to see them back in the office on Friday. Reported had labs and chestxray today with visit. Will to try and obtain results Reported weight was up to 218 today. Discussed appt scheduled for tomorrow and will reschedule in a few weeks since recently had visit today, with medication changes to further assess response. Ms Alcantar voiced understanding. Discussed with Chika Orellana APRN and agreeable to POC * Telephone Encounter - Neptali Johnson RN [...] RN - 06/21/2025 8:41 AM EDT Contacted [facility] to request lab results from yesterday. Lewellen stated they would fax. PAD reading 25 [...] optimal time of day to reach caller: [phone] Note: Please do not reply to this [...] optimal time of day to reach caller: [phone] Note: Please do not reply to this [...] Description 07/08/2025 1:45 PM EDT Office Visit [facility] [place] [address] [place] [address] Elvin Schuler MD [address] [place] [address] Scheduled Orders Name Type Priority Associated Diagnoses [...] documented as of this encounter Care Teams Water Main Installer Helper Relationship Specialty Start Date End Date Rad Galvan MD [address] [place] [address] PCP - General 04/08/25 Uli Salcedo PA [address] [place] [address] Referring Physician 02/03/25 documented as of this encounter
--- OUTSIDE RECORDS SUMMARY | 2025-06-28 14:17 | XMS_ITS | Clinical Summary ---
Author Organization [facility] Address [address] [place] [address] Care Team Providers Care Security Guard Supervisor Name Role Phone Rad Galvan MD Primary Care Provider + Allergies Active Allergy Reactions Criticality Noted Date Comments Metoclopramide Rash Low 04/15/2022 Medications Pompeii-3 Fatty Acids (fish oil) 1000 MG capsule [...] 11 08/03/20 24 Active Comfort EZ Pen [place] 32G X 6 MM mis USE DIRECTED FOR insulin injections 100 each [...] mouth Daily. 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 She will be referred back to [facility] podiatry for topical interventions that [...] Encounters Date Type Department Care Team Description 06/28/2025 Telephone [facility] [address] [place] [id number] Rad Galvan MD PAPERWORK REQUEST 06/27/2025 Telephone [facility] [address] [place] [address] Rad Galvan MD PAPERWORK REQUEST 06/21/2025 Telephone [facility] [address] [place] [address] Rad Galvan MD FOLLOW UP ON FAX 06/02/2025 Refill [facility] [address] [place] [address] Rad Galvan MD Longstanding persistent atrial fibrillation; Seizure disorder; Restless leg syndrome; Gastroesophageal reflux disease without esophagitis; Type 2 diabetes mellitus with hyperglycemia 05/03/2025 [facility] [address] [address] Brian Baptiste, [facility] 04/20/2025 Refill [facility] [address] [place] [address] Rad Galvan MD 04/12/2025 Refill [facility] [address] [place] [address] Rad Galvan MD Chronic midline low back pain without sciatica 04/12/2025 [facility] [address] [place] [address] Rad Galvan MD Med Management 04/08/2025 [facility] [address] [place] [address] Rad Galvan MD Med Management 04/07/2025 10:00 AM EDT Office Visit [facility] [address] [place] [address] Rad Galvan MD Type 2 diabetes mellitus [...] disorder 04/07/2025 Travel 04/01/2025 External PBM[facility] Data [facility] [address] [facility] [address] Pharmacy, [employer] 03/31/2025 Telephone [facility] [address] [place] [address] Rad Galvan MD Blood Sugar Problem [...] History Medical History Relation Name Comments Diabetes Brother Momo Jimenez Hyperlipidemia Daughter Yennifer Edwards Alcohol abuse Father Jakob Fish Hyperlipidemia Father Jakob Fish Hyperlipidemia Mother Meseretjaylin Mendenhallin Diabetes Sister Nicole Brito Hyperlipidemia Sister Nicole Brito Relation Name Status Comments Brothglen Jimenez Daughter Yennifer Hortonmins Father Jakob Fish Mother Meseret Mendenhallin Sister Nicole Brito Social History Tobacco Use [...] Description 07/13/2025 1:00 PM EDT Office Visit [facility] [address] [facility] [address] [place] [address] Sidney Barraza MD [address] [facility] [address] [facility] [address] [place] [address] 08/01/2025 10:15 AM EDT Office Visit [facility] [address] [facility] [place] [address] Rad Galvan MD [address] [place] [address] Health Maintenance Due Date Last Done Comments [...] Priority Date/Time Associated Diagnosis Comments SCANNED EKG 06/27/2025 SCANNED - IMAGING 06/27/2025 SCANNED - LABS 06/23/2025 SCANNED - LABS 06/20/2025 SCANNED - LABS [...] to Health Maintenance Results * ECG Scan (06/27/2025) Only the most recent of3 resultswithin the time period is included. us Rad Galvan MD ECG ORDERABLES Final Re sult * IMAGING SCANNED (06/27/2025) Only the most recent of6 resultswithin the time period is included. Anatomical Region Laterality Modality Radiographic Gracie ging us Rad Galvan MD IMG DIAGNOSTIC IMAGING O RDERABLES Final Result * LABS SCANNED (06/23/2025) Only the most recent of6 resultswithin the time period is included. us Rad Galvan MD LAB BLOOD ORDERABLES Fin al Result * FOOT EXAM SCANNED (05/02/2025) us Rad Galvan MD CHART REVIEW TABS Fin al Result * (ABNORMAL) POC Glycosylated Hemoglobin (Hb A1C) (04/07/2025 9:42 AM EDT) Hemoglobin A1C 7.8(A) 4.5 - 5.7 % [facility] Lot Number [id number] [facility] Expiration Date 10/26/2026 [facility] Blood 04/07/2025 9:42 AM EDT Rad Galvan MD POINT OF CARE TEST ORDER RICH Final Result [facility]
[address] [place] [address], * (ABNORMAL) Albumin/Creatinine Ratio Urine (01/07/2025 3:18 PM EST) [facility] POC ALBUMIN, URINE 30 mg/L POC CREATININE, URINE 50 mg/dL POC Urine Albumin Creatinine Ratio 30-300 <30 Comment:abnormal Lot Number [id number] Expiration Date 10/23/2025 Urine 01/07/2025 3:18 PM EST Rad Galvan MD POINT OF CARE TEST ORDER RICH Final Result * SCANNED - MAMMO (02/18/2023) Anatomical Region Laterality Modality Other Result [facility] Rad Galvan MD CHART REVIEW TABS Fin al Result * SCANNED - DEXA (02/18/2023) Anatomical Region Laterality Modality Other Rad Galvan MD CHART REVIEW TABS Fin al Result * (ABNORMAL) Cologuard - Stool, Per Rectum (02/15/2023 4:07 PM EDT) [facility] Cologuard Positive( A) Negative 02/25/2023 5:18 PM EDT [facility] (CLIA #:[id number]) Comment: POSITIVE TEST RESULT. A positive Cologuard [...] Valdes et al, N Engl J Med 2014;370(14):1249-9342.) Cologuard may produce a false negative or false positive result (no colorectal cancer or precancerous polyp present at colonoscopy follow up). A negative Cologuard test result does not guarantee the absence of CRC or advanced adenoma (pre-cancer). The current Cologuard screening interval is every 3 years. ([place] [employer] and [place].S. Multi-Society Task Force). Cologuard performance data in a 10,000 patient pivotal study using colonoscopy as the reference method can be accessed at the following location: [email or web address]. Additional description of the Cologuard test process, warnings and precautions can be found at [email or web address]. Stool specimen (specimen) Specimen from rectum / Unknown 02/15/2023 4:07 PM EDT 02/18/2023 3:05 PM EDT us Rad Galvan MD BODY FLUIDS AND STOOLS O RDERABLES Final Result [facility] (CLIA #:[id number]) [address] [place] [address], [place] [phone] from Last 3 Months or Most Recently Relevant to Health Maintenance Insurance [employer] PPO Care Teams Security Guard Supervisor Relationship Specialty Start Date End Date Rad Galvan MD [address] [place] [address] PCP - General Family Medicine 04/15/22
--- OUTSIDE RECORDS SUMMARY | 2025-06-28 14:17 | XMS_ITS | Encounter Summary ---
[facility] Organization [facility] Address [address] [place] [address] Care Team Providers Care Sealer Dry Cell Name Role Phone Rad Conroy MD Primary Care Provider + Reason for Visit * Reason Onset Date Comments FOLLOW UP ON FAX 06/21/2025 Encounter Details Date Type Department Care Team (Late st Contact Info) Description 06/21/2025 Telephone [facility] [address] [place] [address] Rad Conroy MD [address] [place] [address] FOLLOW UP ON FAX Social [...] Rep - 06/21/2025 9:55 AM EDT Caller: [employer] Relationship: Other Best call back number: [phone] OPTION 2 Equipment requested: ALO SUPPLIES Prescribing [...] Description 07/13/2025 1:00 PM EDT Office Visit [facility] CARDIOLOGY [address] [address] Sidney Barraza MD [address] [facility] [place] [address] 08/01/2025 10:15 AM EDT Office Visit [facility] 210 [facility] [place] [phone] Rad Conroy MD [address] [facility] [place] [address] documented as of this encounter Visit Diagnoses Not on filedocumented in this encounter Additional Health Concerns Assessment Noted Time PHQ-2 Depression Total Score: 1 02/17/20 24 10:24 AM EDT documented as of this encounter Care Teams Sealer Dry Cell Relationship Specialty Start Date End Date Rad Conroy MD [address] [facility] [place] [address] PCP - General Family Medicine 04/15/22 documented as of this encounter
--- OUTSIDE RECORDS SUMMARY | 2025-06-28 14:17 | XMS_ITS | Encounter Summary ---
[facility] Address [address] [place] [address] Care Team Providers Care Machine Sweeper Brush Maker Name Role Phone Rad Galvan MD Primary Care Provider + Reason for Visit * Reason Onset Date Comments PAPERWORK REQUEST 06/28/2025 Encounter Details Date Type Department Care Team (Late st Contact Info) Description 06/28/2025 Telephone [facility] [address] [place] [address] Rad Galvan MD [address] [place] [address] PAPERWORK REQUEST Social History Tobacco Use Types Packs/Day Years [...] encounter Miscellaneous Notes * Telephone Encounter - Gabi Lee RegSched Rep - 06/28/2025 10:43 AM EDT Caller: ESTEVAN Relationship: Other [employer] Best call back number: [phone] OPTION 2 What form or medical record are you requesting: CLINICAL NOTES FROM [id number] Who is requesting this form or medical record from you: [employer] How would you like to receive the form or medical records (pick-up, mail, fax): If fax, what is the fax number: [phone] Timeframe paperwork needed: MAREK Additional notes: THEY RECEIVED THE NOTES HOWEVER THERE IS NOT A DRS SIGNATURE AND THEY HAVE REFAXED THE REQUEST AGAIN AND ASKING IF THE OFFICE HAS RECEIVED AND SENT BACK; THIS IS FOR PATIENT TO CONTINUE TO RECEIVE HER FREESTYLE ALO SUPPLIES documented in this encounter Plan of Treatment Upcoming Encounters Date Type Department Care Team (Late st Contact Info) Description 07/13/2025 1:00 PM EDT Office Visit [facility] C[facility] [address] [address] Sidney Barraza MD 1720 [facility] [address] [address] 08/01/2025 10:15 AM EDT Office Visit [facility] [address] [place] [address] Rad Galvan MD [address] [place] [address] documented as of this encounter Visit Diagnoses Not on filedocumented in this encounter Additional Health Concerns Assessment Noted Time PHQ-2 Depression Total Score: 1 02/17/20 24 10:24 AM EDT documented as of this encounter Care Teams Machine Sweeper Brush Maker Relationship Specialty Start Date End Date Rad Galvan MD [address] [place] [address] PCP - General Family Medicine 04/15/22 documented as of this encounter
--- OUTSIDE RECORDS SUMMARY | 2025-06-28 14:17 | XMS_ITS | Encounter Summary ---
[facility] Address [address] [place] [address] Care Team Providers Care Electrician Outside Name Role Phone Rad Galvan MD Primary Care Provider + Encounter Details Date Type Department Care Team (Late st Contact Info) Description 05/03/2025 [facility] CALL CENTER [address] [place] [address] [facility] [address] [place], [place] [id number] Social History Tobacco Use Types Packs/Day Years [...] Office Visit [facility] 1720 [facility] [address] [place] [phone] Sidney Barraza MD [address] [place] [address] 08/01/2025 10:15 AM EDT Office Visit [facility] [address] [place] [address] Rad Galvan MD [address] [place] [address] documented as of this encounter Visit Diagnoses Not on filedocumented in this encounter Additional Health Concerns Assessment Noted Time PHQ-2 Depression Total Score: 1 02/17/20 24 10:24 AM EDT documented as of this encounter Care Teams Electrician Outside Relationship Specialty Start Date End Date Rad Galvan MD [address] [place] [address] PCP - General Family Medicine 04/15/22 documented as of this encounter
--- OUTSIDE RECORDS SUMMARY | 2025-06-28 14:17 | XMS_ITS | Encounter Summary ---
[facility] [address] [place] [address] Care Team Providers Care Turning Sander Tender Name Role Phone Rad Galvan MD Primary Care Provider + Reason for Visit * Reason Comments Med Refill Encounter Details Date Type Department Care Team (Late st Contact Info) Description 06/02/2025 Refill [facility] FAMILY MEDICINE [address] [place] [address] Rad Galvan MD [address] [place] [address] Longstanding persistent atrial fibrillation; Seizure [...] Description 07/13/2025 1:00 PM EDT Office Visit [facility] [address]20 [facility] [address] [place] [address] Sidney Barraza MD [address] [facility] [address] [address] [place] [address] 08/01/2025 10:15 AM EDT Office Visit [facility] [address] [place] [address] Rad Galvan MD [address] [place] [address] documented as of this encounter [...] documented as of this encounter Care Teams Turning Sander Tender Relationship Specialty Start Date End Date Rad Galvan MD [address] [place] [address] PCP - General Family Medicine 04/15/22 documented as of this encounter
--- OUTSIDE RECORDS SUMMARY | 2025-06-28 14:17 | XMS_ITS | Encounter Summary ---
Author Organization [facility] Address [address] [id number] Care Team Providers Care Fruit Canner Name Role Phone Uli Salcedo Unavailable [phone] Rad Galvan MD Primary Care Provider Encounter Details Date Type Department Care Team (Late st Contact Info) Description 04/26/2025 Telephone [facility] [place] [address] [facility]. [address] [place] [address] Yaritza Johnson, RN [facility] [address] [place] [address] Social History Tobacco Use Types Packs/Day Years [...] Description 07/08/2025 1:45 PM EDT Office Visit [facility] [place] [address] [place] [address] Elvin Schuler MD [address] [place] [address] documented as of this encounter Visit Diagnoses [...] documented as of this encounter Care Teams Fruit Canner Relationship Specialty Start Date End Date Rad Galvan MD [address] [place] [address] PCP - General 04/08/25 Uli Salcedo PA [address] [place] [address] Referring Physician 02/03/25 documented as of this encounter
--- OUTSIDE RECORDS SUMMARY | 2025-06-28 14:17 | XMS_ITS | Encounter Summary ---
[facility] Address [address] [place] [address] Care Team Providers Care Avionics Shop Supervisor Name Role Phone Rad Galvan MD Primary Care Provider + Reason for Visit * Reason Onset Date Comments PAPERWORK REQUEST 06/27/2025 Encounter Details Date Type Department Care Team (Late st Contact Info) Description 06/27/2025 Telephone [facility] [address] [place] [address] Rad Galvan MD [address] [place] [address] PAPERWORK REQUEST Social History Tobacco [...] encounter Miscellaneous Notes * Telephone Encounter - Leia Huddleston MA - 06/27/2025 12:25 PM EDT Pt stated it's ok to fax notes. Faxed via Jumptap. * Telephone Encounter - Yarely Painter RegSched Rep - 06/27/2025 11:41 AM EDT Caller: [place] [employer] Relationship: Best call back number: [phone] EXTENTION 2 What form or medical record are you requesting: CLINICAL NOTES Who is requesting this form or medical record from you: [employer] How would you like to receive the form or medical records (pick-up, mail, fax): FAX If fax, what is the fax number: [phone] Timeframe paperwork needed: MAREK Additional notes: PATIENTS SUPPLIER FOR FREESTYLE ALO SUPPLIES HAD REQUESTED CHART NOTES IN [facility] CONTINUE SENDING THE SUPPLIES. THEY RECEIVED THE NOTES BUT IT DID NOT HAVE THE PROVIDERS SIGNATURE ON IT. THEY ARE REQUESTING IT BE RESENT TO THE FAX NUMBER LISTED ABOVE WITH THE PROVIDERS SIGNATURE ADDED. documented in this encounter Plan of Treatment Upcoming Encounters Date Type Department Care Team (Late st Contact Info) Description 07/13/2025 1:00 PM EDT Office Visit [facility] 1720 [facility] [address] [place] [address] Sidney Barraza MD 1720 [facility] [address]LD[address] E [facility] [address] [place] [address] 08/01/2025 10:15 AM EDT Office Visit [facility] 210 [facility] [place] [address] Rad Galvan MD [address] [address] documented as of this encounter Visit Diagnoses Not on filedocumented in this encounter Additional Health Concerns Assessment Noted Time PHQ-2 Depression Total Score: 1 02/17/20 24 10:24 AM EDT documented as of this encounter Care Teams Avionics Shop Supervisor Relationship Specialty Start Date End Date Rad Glavan MD [address] [place] [address] PCP - General Family Medicine 04/15/22 documented as of this encounter
--- OUTSIDE RECORDS SUMMARY | 2025-06-28 14:17 | XMS_ITS ---
Author Organization [facility] Address [address] [place] [address] Care Team Providers Care Millinery Copyist Name Role Phone Rad Galvan MD Primary Care Provider + [facility] Status:Enrolled (Active) Start date:04/13/2025 Enrollment date:04/13/2025 Current support & services provided:Adherence- Cholesterol, Adherence- Hypertension Linked medications:Atorvastatin Calcium (Active), Valsartan (Active) Overview Atorvastatin and valsartan filled 03/26/2025 #30 day both have refills Case Team Name Relationship Phone Danielle Da Silva LPN(Responsible Staff) Licensed Mane cody Nurse Continued Care and Services Coordination
--- OUTSIDE RECORDS SUMMARY | 2025-06-28 14:17 | XMS_ITS | Clinical Summary ---
Author Organization [facility] Address [address] [place] [address] Care Team Providers Care Brokerage Purchase And Sale Clerk Name Role Phone Uli Salcedo Unavailable [phone] Rad Galvan MD Primary Care Provider [phone] Allergies Active Allergy Reactions Criticality Noted Date [...] Type Department Care Team Description 06/17/2025 Telephone [facility] [place] [address] [place] [address] Elvin Schuler MD HCN - Patient Message 06/16/[address] [address] Elvin Schuler MD HCN - Patient Message 04/26/[address] [phone] Yaritza Johnson RN 04/08/2025 11:00 AM EDT Office Visit [address] [phone] Elvin Schuler MD Chronic systolic congestive heart failure (CMS/HCC) (Primary Dx) 04/08/2025 Travel 04/07/[address] [phone] Elvin Schuler MD 03/30/2025 10:40 AM EDT - 03/30/2025 12:00 PM EDT Surgery Cardiac Cow Buyer [address] [place] [phone] Brodie Carranza MD Cardiomems w/Right Heart Cath [[id number] (CPT )] 03/30/2025 9:45 AM EDT - 03/30/2025 2:35 PM EDT Hospital Encounter Cardiac Cow Buyer [address] [place] [phone] Brodie Carranza MD Congestive heart failure, unspecified [...] Description 07/08/2025 1:45 PM EDT Office Visit [facility] [address] [address] Elvin Schuler MD [address] [place] [address] Health Maintenance Due Date Last Done Comments [facility]-Bone Density Scan 1957 [facility]-/Child/Adol SDOH Screenings 1957 Diabetes: Dental Exam 1967 [facility]- SDOH Screenings 1975 [facility]-Adult SDOH Screenings 1975 [facility]-DTaP,Tdap,and Td Vaccines (1 - Tdap) 01/24/1997 01/23/1997 CT Colonography 2002 Colonoscopy 2002 FIT 2002 FOBT 2002 Sigmoidoscopy 2002 [facility]-Breast Cancer Screening 2007 [facility]-Zoster Vaccines (1 of 2) 2007 [id number]-45 Vaccine ( season) 2024 09/06/2022, 11/28/2021, 03/06/2021, [...] Associated Diagnosis Comments N-TERMINAL PROBNP, PLASMA Routine 06/23/2025 10:40 AM EDT BASIC METABOLIC PANEL, PLASMA Routine 06/23/2025 10:40 AM EDT BASIC METABOLIC PANEL, PLASMA Routine 06/20/2025 N-TERMINAL [...] Maintenance Results * (ABNORMAL) N-Terminal Probnp, Plasma (06/23/2025 10:40 AM EDT) Only the most recent of2 resultswithin the time period is included. External Pro-BNP 1,800 EXTERNAL LAB Comment:High Blood Venous blood specimen / Unknown 06/23/2025 10:40 AM EDT Historical Provider LAB BLOOD ORDERABLES Kailey musa Result Performing Organization Address [facility] Co de Phone Number EXTERNAL LAB * (ABNORMAL) Basic Metabolic Panel, Plasma (06/23/2025 10:40 AM EDT) Only the most recent of4 resultswithin the time period is included. External Glucose 230 EXTERNAL LAB Comment:High External BUN 38 EXTERNAL LAB Comment:High External Creatinine Blood 1.60 mg/dL EXTERNAL LAB Comment:High External UN/Creat Ratio (UC) tnp EXTERNAL LAB External Sodium (Na) 126 mEq/L EXTERNAL LAB Comment:Low External Potassium (K) 4.4 EXTERNAL LAB External Chloride (Cl) 93 EXTERNAL LAB Comment:Low External Carbon Dioxide (CO2) 24 EXTERNAL LAB External Anion Gap (AG) 13.4 EXTERNAL LAB External Calcium (Ca) 9.1 EXTERNAL LAB External Estimated GFR 32 EXTERNAL LAB Comment:Low External EGFR (If AFR/AM) 39 EXTERNAL LAB Comment:Low Blood Venous blood specimen / Unknown 06/23/2025 10:40 AM EDT Historical Provider LAB BLOOD ORDERABLES Kailey musa Result Performing Organization Address [facility] de Phone Number EXTERNAL LAB * CARDIOMEMS W/RIGHT HEART CATH [...] into the left pulmonary artery, percutaneous approach. ([id number]) Access: Right Jugular vein 11Fr [place] Sheath Procedure: After obtaining a consent, the [...] was inserted through the needle, an 11Fr [place] sheath was inserted over the wire, subsequently blood was aspirated and the sheath flushed. Subsequently a 7 Turkish wedge catheter was passed through the [place] sheath into the RA, RV and PA [...] right pulmonary artery for calibration. Ultimately the [place] sheath was withdrawn with patient exhaling during the maneuver and 10 minutes of manual pressure attained hemostasis. Ultimately patient was transferred back to [facility] area in stable condition without immediate complications. [...] Co-Oximetry Mixed Venous (03/30/2025 11:23 AM EDT) Pathologist [facility] POCT Oxyhemoglobin, Mixed Venous 59.1 % 03/30/2025 11:24 AM EDT HEALTHCARE LAB Transaction Processor ID David Eva 03/30/2025 11:24 AM EDT HEALTHCARE LAB Device ID [id number] 1 03/30/2025 11:24 AM EDT HEALTHCARE LAB POCT Sample Site PA 03/30/2025 11:24 AM EDT HEALTHCARE LAB POCT Total Hemoglobin 11.8 11.2 - 15.7 g/dL 03/30/2025 11:24 AM EDT HEALTHCARE LAB 03/30/2025 11:2 3 AM EDT 03/30/2025 11:24 AM EDT Brodie Carranza MD LAB POINT OF CARE TEST DOCKED DEVICE UNSOLICITED RESULTS Final Result [facility] [address] [place] [id number] * POCT CO-Oximitry, Venous (03/30/2025 11:19 AM EDT) Pathologist [facility] POCT OXYHEMOGLOBIN, VENOUS 64 40 - 70 % 03/30/2025 11:20 AM EDT HEALTHCARE LAB Transaction Processor ID Zoila Hernandezline 03/30/2025 11:20 AM EDT HEALTHCARE LAB Device ID [id number] 1 03/30/2025 11:20 AM EDT HEALTHCARE LAB POCT Sample Site SVC 03/30/2025 11:20 AM EDT HEALTHCARE LAB POCT Total Hemoglobin 12.1 11.2 - 15.7 g/dL 03/30/2025 11:20 AM EDT [facility] Venous blood specimen / Unknown 03/30/2025 11:19 AM EDT 03/30/2025 11:20 AM EDT us Brodie Carranza MD LAB POINT OF CARE TEST DOCKED DEVICE UNSOLICITED RESULTS Final Result [facility] [address] [place] [address] * [place] Hepatitis C Antibody (11/26/2020 6:51 PM EST) [place] Hepatitis C Ab NEGATIVE Reference Range: Negative SUNQUEST 11/26/2020 6:51 PM EST 11/26/2020 7:09 PM EST us Justo Morse MD LAB BLOOD ORDERABLES Final Re sult SUNQUEST from Last 3 Months or Most Recently Relevant to Health Maintenance Insurance MEDICARE Advance Directives Documents on File Type Date Recorded Patient Coater Associate Expl anation Advance Directives and Living Will 03/30/2025 LIVING WILL DIRECTIV E Healthcare Agents on File Name Relationship Healthcare Agent Relationshi p Communication Yennifer Edwards Daughter Next of Kin Care Teams Brokerage Purchase And Sale Clerk Relationship Specialty Start Date End Date Rad Galvan MD [address] [place] [address] PCP - General 04/08/25 Uli Salcedo PA [address] [place] [address] Referring Physician 02/03/25
--- OUTSIDE RECORDS SUMMARY | 2025-06-28 14:17 | XMS_ITS | Encounter Summary ---
Author Organization [facility] Address [address] [place] [address] Care Team Providers Care Child Adolescent Psychiatrist Name Role Phone Andrew Lee MD Primary Care Provider [phone] Uli Salcedo Unavailable Rad Galvan MD Primary Care Provider [phone] Encounter Details Date Type Department Care Team (Late st Contact Info) Description 01/11/2025 Orders Only External Location [address] [place] [address] Uli Salcedo PA [address] [place], [place] [phone] Social History Tobacco Use Types Packs/Day Years [...] Description 07/08/2025 1:45 PM EDT Office Visit [facility] [place] 800 [facility]. [address] [place] [phone] Elvin Schuler MD [address] [place] [address] documented as of this encounter [...] on filedocumented in this encounter Care Teams Child Adolescent Psychiatrist Relationship Specialty Start Date End Date Andrew Lee MD [address] [place] [address] [address] [place] [address] PCP - General 04/06/21 04/07/25 Rad Galvan MD [address] [place] [address] PCP - General 04/08/25 Uli Salcedo PA [address] [place] [address] Referring Physician 02/03/25 documented as of this encounter
--- OUTSIDE RECORDS SUMMARY | 2025-06-28 14:17 | XMS_ITS | Encounter Summary ---
Author Organization [facility] Address [address] [place] [address] Care Team Providers Care Vaccinator Name Role Phone Uli Salcedo Unavailable [phone] Rad Galvan MD Primary Care Provider Reason for Referral * Home Health (Routine) - Authorized Specialty Diagnoses / Procedures Referred By Contaleida t Referred To Contact Home Health Services Diagnoses Chronic systolic congestive heart failure (CMS/HCC) Chika Linares APRN [address] [place] [address] Phone: tel: fax: Referral ID Status Reason Start Date Expiration Date Visits Requested Visits Authorized [id number] Authorized Specialty Services Required 06/17/2025 12/17/2026 999 [id number] Reason for Visit * Reason Onset Date Comments HCN - Patient Message 06/16/2025 Encounter Details Date Type Department Care Team (Late st Contact Info) Description 06/16/2025 Telephone [facility] [place] 800 [facility]. [address] [place] [phone] Elvin Schuler MD [address] [place] [address] HCN - Patient Message Social [...] IV bumex 4mg. Spoke to Anne at [facility]. Stated they could collect labs in infusion and administer IV bumex. Stated order would need to be faxed to [phone]. Orders placed and faxed. Contacted ortiz and [...] 1 week. Reports she was admitted at [facility] 2 weeks ago. Reports weight as [...] and repeat labs. Stated shewould go to [facility] for repeat. Lab order faxed to [phone] Contacted [facility] medical records and requested records be [...] optimal time of day to reach caller: [phone] after 2 PM Note: Please do not reply to this message. Follow-up communication and further actions as a result of this message need to be communicated with the patient directly, if the patient is not active onMyChart. If the patient is active on MyChart, they will receive notification of the communication/outcome via [employer]ix[employer]. documented in this encounter Plan of Treatment Upcoming Encounters Date Type Department Care Team (Late st Contact Info) Description 07/08/2025 1:45 PM EDT Office Visit [facility] [place] 800 [facility]. [address] [place] [address] Elvin Schuler MD [address] [place] [address] Scheduled Orders Name Type Priority Associated Diagnoses [...] documented as of this encounter Care Teams Vaccinator Relationship Specialty Start Date End Date Rad Galvan MD [address] [place] [address] PCP - General 04/08/25 Uli Salcedo PA [address] [place] [address] Referring Physician 02/03/25 documented as of this encounter
[2025-06-28 14:29] LABS: Anion Gap 11.3 mEq/L (5-15); Blood Urea Nitrogen 44 mg/dl (7-17); Calcium 9.4 mg/dl (8.4-10.2); Carbon Dioxide 36 mmol/L (22.0-30.0); Chloride 79 mmol/L (98-107); Creatinine Clearance Estimated 45 mL/min (50-200); Creatinine,Serum 1.70 mg/dl (0.52-1.04); Estimated Glomerular Filt Rate 30 ml/min (>60); GFR (African American) 36 ML/MIN (>60); Glucose 251 mg/dl (74-100); Potassium 3.3 mmoL/L (3.5-5.1); Sodium 123 mmol/L (136-145)
[2025-06-28] MEDS: BUMETANIDE 1MG/4ML VIAL 4 MG IV (16:17)
[2025-06-28] MEDS: XARELTO 20 MG 1 EACH PO (16:17)
[2025-06-28 16:30] LABS: Digoxin 1.30 ng/ml (0.2-2.00)
--- NOTE | 2025-06-28 17:05 | PC.NURSE ---
Aox 4, up ad janel times one, bed alarm active, on RA, fsbg achs, on xarelto, consult to cardiology, paced on telemetry.
[2025-06-28] MEDS: PHENOBARBITAL 32.4 MG 97.2 MG PO (20:43)
[2025-06-28] MEDS: ROPINIROLE 1MG TABLET 2 MG PO (20:43)
[2025-06-28] MEDS: ATORVASTATIN 10MG TABLET 40 MG PO (20:50)
[2025-06-28] MEDS: humaLOG 100 UNITS/ML 10ML VIAL (SSI) SUBCUT (21:02)
[2025-06-28 23:12] LABS: Chloride 80 mmol/L (98-107); Sodium 123 mmol/L (136-145)
[2025-06-28 23:15] LABS: Anion Gap 9.8 mEq/L (5-15); Blood Urea Nitrogen 49 mg/dl (7-17); Calcium 9.0 mg/dl (8.4-10.2); Carbon Dioxide 36 mmol/L (22.0-30.0); Creatinine Clearance Estimated 51 mL/min (50-200); Creatinine,Serum 1.50 mg/dl (0.52-1.04); Estimated Glomerular Filt Rate 35 ml/min (>60); GFR (African American) 42 ML/MIN (>60); Glucose 200 mg/dl (74-100)
[2025-06-28 23:24] LABS: Potassium 2.8 mmoL/L (3.5-5.1)
[2025-06-29] VITALS: BP 92/64; PULSE 60; PULSE 69; RESP 16; TEMP 36.7; O2SAT 92
[2025-06-29] MEDS: ACETAMINOPHEN 325MG TAB 650 MG PO (01:19)
--- NOTE | 2025-06-29 01:22 | ECG_ITS ---
APPROVED REPORT Exam: Resting ECG HR:77 bpm ECG Measurements Heart Rate 77 AXES QRSd 164 QRS 215 QT 473 T 19 QTc 505 Conclusion ELECTRONIC VENTRICULAR PACEMAKER ABNORMAL RHYTHM ECG UNCONFIRMED REPORT Electronically signed by : Rad Branch MD 06/29/2025 08:33:24
[2025-06-29] MEDS: POTASSIUM CHLORIDE 20MEQ TAB 60 MEQ PO (01:50)
[2025-06-29 02:55] LABS: Microscopic, Urine URINE MICROSCOPIC (MICROSCOPIC)
[2025-06-29 02:58] LABS: Bilirubin,Urine Negative (Negative); Color,Urine YELLOW (Yellow); Glucose,Urine (UA) 2+ (Negative); Ketones,Urine Negative (Negative); Leukocyte Esterase,Urine Negative (Negative); PH,Urine 7.0 (5.0-8.5); Protein,Urine Negative (Negative); Specific Gravity, Urine 1.010 (1.005-1.030); Urobilinogen,Urine 0.2 EU/dl (0.2)
[2025-06-29 03:09] LABS: Squamous Epithelial Cell,Urine Occasional #/hpf (0-5)
[2025-06-29 03:11] LABS: Bacteria,Urine 3+ /lpf
[2025-06-29 04:00] VITALS: BP 103/49; PULSE 70; RESP 16; TEMP 36.6; O2SAT 91; BMI 38.7
[2025-06-29] MEDS: humaLOG 100 UNITS/ML 10ML VIAL (SSI) SUBCUT ×2 (05:54→11:51)
[2025-06-29] MEDS: POTASSIUM CHLORIDE 20MEQ TAB 40 MEQ PO ×2 (05:54→09:51)
[2025-06-29 06:07] LABS: Chloride 84 mmol/L (98-107)
[2025-06-29 06:08] LABS: Albumin Level 4.1 g/dl (3.5-5.0); Potassium 3.7 mmoL/L (3.5-5.1); Sodium 126 mmol/L (136-145)
[2025-06-29 06:11] LABS: Alanine Aminotransferase 23 U/L (12-78); Albumin/Globulin Ratio 1.2 (1.1-1.8); Alkaline Phosphatase 224 U/L (38-126); Anion Gap 11.7 mEq/L (5-15); Aspartate Amino Transferase 35 U/L (14-36); Bilirubin,Total 0.6 mg/dl (0.2-1.3); Blood Urea Nitrogen 53 mg/dl (7-17); Calcium 9.1 mg/dl (8.4-10.2); Carbon Dioxide 34 mmol/L (22.0-30.0); Creatinine Clearance Estimated 50 mL/min (50-200); Creatinine,Serum 1.60 mg/dl (0.52-1.04); Estimated Glomerular Filt Rate 32 ml/min (>60); GFR (African American) 39 ML/MIN (>60); Globulin 3.3 g/dL (1.3-3.2); Glucose 169 mg/dl (74-100); Total Protein,Serum 7.4 g/dl (6.3-8.2)
[2025-06-29 06:15] LABS: Hematocrit 32.0 % (37.0-47.0); Hemoglobin 11.3 g/dL (12.2-16.2); Immature Granulocytes % 0.4 %; Mean Corpuscular HGB Conc 35.3 g/dL (31.8-35.4); Mean Corpuscular Hemoglobin 35.2 pg (27.0-31.2); Mean Corpuscular Volume 99.7 fl (81-99); Nucleated Red Blood Cells % 0 %; Platelet Count 157 K/mm3 (142-424); Red Blood Count 3.21 M/mm3 (4.20-5.40); Red Cell Distribution Width-SD 53.1 fL; White Blood Count 6.9 K/mm3 (4.8-10.8)
--- NOTE | 2025-06-29 06:25 | PC.NURSE ---
Pt. is alert and orientated x 4. Pt. is on room air. Pt. was feeling well at the beginning of the shift but was tired. Pt. slept for a while. Pt. awoke around 0100 with c/o headache, chest pressure, dizziness, weakness, and feeling Life-less . Dr. Adame notified and came to bedside to examine pt.EKG done labs resulted and potassium level was very low as well as the sodium level was low. Pt. is on a 3%sodium drip to correct the low sodium level and was given PO potassium to correct the low potassium level. Pt. has a dexcom for diabetes, Glucose level taken from dexcom and covered with sliding scale of Humalog. Pt. given Tylenol for headache with relief of pain. Pt. took another nap after feeling so poorly and awoke feeling much better. Pt. up to Bathroom assist x 1, not as weak as previous bathroom trip. Personal items and call leonard in reach. Bed in low and locked position. Safety measures in place.
[2025-06-29 06:38] LABS: Thyroid Stimulating Hormone 0.71 uIU/mL (0.465-4.68)
[2025-06-29 06:54] LABS: Hemoglobin A1C 7.0 % (4.0-6.0)
[2025-06-29 08:00] VITALS: PULSE 70
[2025-06-29 09:00] VITALS: BP 102/47; PULSE 71
[2025-06-29 09:42] VITALS: PULSE 71
[2025-06-29] MEDS: DAPAGLIFLOZIN 10 MG PO (09:42)
[2025-06-29] MEDS: ALLOPURINOL 100 MG PO (09:42)
[2025-06-29] MEDS: DIGOXIN 0.125 MG 125 MCG PO (09:42)
[2025-06-29] MEDS: BUMETANIDE 1MG/4ML VIAL 4 MG IV (09:44)
[2025-06-29] MEDS: ISOSORBIDE MONO 30MG TAB.ER.24H 30 MG PO (09:44)
[2025-06-29] MEDS: PANTOPRAZOLE 40MG TABLET 40 MG PO (09:44)
[2025-06-29] MEDS: METOPROLOL SUCCINATE XL 25MG TABLET 12.5 MG PO (09:44)
[2025-06-29] MEDS: GABAPENTIN 600MG TABLET 600 MG PO (09:44)
[2025-06-29] MEDS: POTASSIUM CHLORIDE 20MEQ TAB 20 MEQ PO (09:44)
[2025-06-29] MEDS: humaLOG MIX 75/25 3ML FLEXPEN 50 UNIT SUBCUT (09:44)
[2025-06-29 10:09] LABS: POC Glucose,Bedside 281 (70-110)
--- NOTE | 2025-06-29 11:00 | EXP.CARD.PN ---
Subjective Subjective Date: 06/29/25 Time: 10:00 Interval history: Diuresed to dry weight (down 12-14 lbs since admit) Na up to 126 Feeling better Low BP late last night (machine said systolic 70s, manual was 90s) pt felt weak/lethargic. Awaiting device programming today. Exam Data for Last 24 hours Vital signs and Labs for Last 24 Hours: Temp Pulse Resp BP Pulse Ox O2 Del Method 97.9 F 71 16 102/47 L 91 L Room Air 06/29/25 04:00 06/29/25 09:42 06/29/25 04:00 06/29/25 09:00 06/29/25 04:00 06/29/25 09:00 Laboratory Results - last 24 hr 06/28/25 13:56: Sodium 123 L, Potassium 3.3 L, Chloride 79 L, Carbon Dioxide 36 H, Anion Gap 11.3, BUN 44 H, Creatinine 1.70 H, Estimated Creat Clear 45, Estimated GFR 30 L, Est GFR ( Amer) 36 L, Glucose 251 H D, Calcium 9.4, Digoxin 1.30 06/28/25 22:22: Sodium 123 L, Potassium 2.8 L*, Chloride 80 L, Carbon Dioxide 36 H, Anion Gap 9.8, BUN 49 H, Creatinine 1.50 H, Estimated Creat Clear 51, Estimated GFR 35 L, Est GFR ( Amer) 42 L, Glucose 200 H D, Calcium 9.0 06/29/25 00:55: Urine Color Yellow, Urine Appearance Clear, Urine pH 7.0, Ur Specific [place] 1.010, Urine Protein Negative, Urine Glucose (UA) 2+, Urine Ketones Negative, Urine Blood Negative, Urine Nitrate Negative, Urine Bilirubin Negative, Urine Urobilinogen 0.2, Ur Leukocyte Esterase Negative, Urine RBC None, Urine WBC None, Ur Squamous Epith Cells Occasional, Urine Bacteria 3+ 06/29/25 05:18: WBC 6.9, RBC 3.21 L, Hgb 11.3 L, Hct 32.0 L, MCV 99.7 H, MCH 35.2 H, MCHC 35.3, RDW 14.6, Plt Count 157, MPV 10.1, Neut % (Auto) 66.9, Lymph % (Auto) 22.2, [place] % (Auto) 8.4, Eos % (Auto) 1.7, Baso % (Auto) 0.4, Neut # (Auto) 4.6, Lymph # (Auto) 1.5, [place] # (Auto) 0.6, Eos # (Auto) 0.1, Baso # (Auto) 0.0, Sodium 126 L, Potassium 3.7 D, Chloride 84 L, Carbon Dioxide 34 H, Anion Gap 11.7, BUN 53 H, Creatinine 1.60 H, Estimated Creat Clear 50, Estimated GFR 32 L, Est GFR ( Amer) 39 L, Glucose 169 H, Hemoglobin A1c 7.0 H, Calcium 9.1, Total Bilirubin 0.6, AST 35, ALT 23, Alkaline Phosphatase 224 H, Total Protein 7.4, Albumin 4.1 D, Globulin 3.3 H, Albumin/Globulin Ratio 1.2, TSH 0.71 06/29/25 09:43: POC Glucose 281 H I & O for Last 24 hours: Intake & Output 06/26/25 06/27/25 06/28/25 06/29/25 23:59 23:59 23:59 23:59 Intake Total 561.5 / 561.5 1915 / 2505 1262 / 1262 Output Total 3900 / 4700 3500 / 3500 750 / 750 Balance -3338.5 / -4138.5 -1585 / -995 512 / 512 Weight 205 lb 200 lb 205 lb 8 oz Constitutional Constitutional: no acute distress and cooperative Comments: looking/feeling much better *Routine HEENT Exam Eye: Present PERRL *Routine Respiratory Exam Respiratory: Present CTA bilaterally; Absent accessory muscle use, wheezes or crackles *Routine Cardiovascular Exam Cardiovascular: Present RRR, Normal S1 and Normal S2; Absent murmur, gallop or rubs *Routine Abdominal Exam Abdominal: Present soft; Absent tenderness *Routine Extremities Exam Extremities: Present pulses intact; Absent cyanosis or edema *Routine Skin Exam Skin: Present intact; Absent erythema or wounds *Routine Neurological Exam Neurological: Present alert and oriented X3 Routine Psychiatric Exam Psychiatric: Present cooperative Progress Note: A&P Assessment and plan (1) CHF NYHA class IV (symptoms with any physical activity and at rest): Status: Acute (2) Hyponatremia: Status: Acute Assessment and Plan Assessment and Plan for All Diagnoses:: 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 Monroy. Plans to discuss LVAD at 07/08 office visit - 06/28: cont Farxiga, Bumex, Metoloazone. (Was on Bumex drip overnight but reducing to BID today due to severe hyponatremia worsening). Resume home dose ARB/MRNA when BP allows. Make PPM adjustments. - 06/29: Diursed to dry weight. Na improving. PPM reprogramming today. Long standing persistant A-fib - 100% A-fib per device download with severe biatrial dilation, no further efforts at sinus rhythm - rate controlled with Metoprolol and Digoxin - OAC with Xarelto - PPM download from 06/14 indicates RVp 59% and LVp 98% - 06/28: Check Dig level. PPM rep to come and sync v-pacing to hopefully improve CO and sx. - 06/29: Dig level normal. PPM reprogramming today. Severe Hyponatremia - severe at 124 on admission, down to 120 after 4L diuresis so maybe not just dilutional from vol overload - no Tovaptan on formulary - pt has severe ROSAS and fatigue but no overt Neuro changes - Hospitalist suggesting slow/gentle hypertonic saline. Will monitor closely. - 06/29: Improved with hypertonic saline. Pt euvolemic. Will recheck BMP as outpatient Friday. If Na <125 will start Tolvaptan maintenance. DM-II - A1C 7% - on Insulin, Farxiga, ARB, Statin - 06/28: increase statin to moderate dose. Glucose control per Hospitalist CKD-III - GFR around 30 - monitor daily labs - dose adjust meds Nonobstructive CAD - per [facility] 06/2024 - cont Xarelto, BB, Statin 06/29: CV stable. Diuersed to baseline. Na improving. ROSAS/fatigue resolved. Reprogramming Bi-V pacing today. Check pt ambulation/functional status today and possible DC. She will need outpatient BMP Friday and if Na<125 will start Tolvaptan.
[2025-06-29 11:22] LABS: POC Glucose,Bedside 227 (70-110)
--- NOTE | 2025-06-29 11:55 | [facility].PTEV ---
Physical Therapy Evaluation Rehab PT IP Evaluation Start: 06/29/25 09:57 Freq: .once Status: Active Protocol: Document 06/29/25 11:52 MORALES (Rec: 06/29/25 11:55 PHOHUMA [id number]) Subjective/History History History 70-year-old female who presented to cardiology clinic for follow-up today. She has history of combined heart failure with CardioMEMS in place. Adjustments of the made over the past 2 weeks to her diuretic regimen due to worsening shortness of breath and swelling in her legs along with 16 pound weight gain over the past 1 to 2 weeks. In spite of adjustments to her loop diuretic and addition of metolazone, she has continued to have swelling in her legs. Presented to clinic today in a wheelchair due to fatigue and weight gain. Cardiology evaluated and requested admission for further management and aggressive diuresis of her heart failure . Pt reports she lives alone, 1 CODY the home and she is generally independent with all mobility without AD. She does have a cane and RW if needed. Subjective Subjective Pt reports she feels considerably better this am than she did on adm. Agrees to mobility assessment. [facility] How much help from another person do you currently need... Turning from your None back to your side while in a flat bed without using bedrails? Moving from lying on None back to sitting on the side of a flat bed without using bedrails? Moving to and from a None bed to a chair ( including a wheelchair)? Standing up from a None chair using your arms? (e.g., wheelchair, bedside chair) Walking in hospital None room? Climbing 3-5 steps None with a railing? Mobility Score [address] [facility] Mobility Walk 250 feet or more Mobility Calculator Rehab PT IP Eval Objective Appearance Patient Behavior Appropriate Patient Orientation Person,Place,Time Difficulty following none instructions Speech Pattern Clear Ambulation Patient Able to Yes Ambulate Ambulation Observation IP General Gait No Deviations/Normal Pattern Observation Ambulation Distance 50 (feet) Ambulation Assistive None Device Ambulation Ability Independent Balance Ability to Arise Able, uses arms to help Sitting Balance Steady, safe Standing Balance Steady, wide stance Dynamic Sitting Good Balance Ability Dynamic Standing Good Balance Ability Transfers Bed Transfer Ability Independent Chair Transfer Independent Ability Sit to Stand Bed Independent Transfer Ability Sit to Stand Chair Independent Transfer Ability Rehab PT IP prob,goals,plan Problems Date of Evaluation: 06/29/25 Discharge Plan PT Discharge Plan Pt is currently appropriate to return home once medically stable for d/c. No current acute therapy needs. Eval Complexity Eval Charge Codes 34359 - High Complexity PHYSICIAN CERTIFICATION: I certify the specified therapy services for Sara Hortonmins are required, authorized, and reviewed every 30 days.
[2025-06-29 12:00] VITALS: PULSE 70
[2025-06-29 12:34] LABS: Chloride 86 mmol/L (98-107)
[2025-06-29 12:35] LABS: Potassium 3.5 mmoL/L (3.5-5.1); Sodium 128 mmol/L (136-145)
[2025-06-29 12:37] LABS: Blood Urea Nitrogen 51 mg/dl (7-17); Creatinine Clearance Estimated 47 mL/min (50-200); Creatinine,Serum 1.70 mg/dl (0.52-1.04); Estimated Glomerular Filt Rate 30 ml/min (>60); GFR (African American) 36 ML/MIN (>60)
[2025-06-29 12:38] LABS: Anion Gap 9.5 mEq/L (5-15); Calcium 8.7 mg/dl (8.4-10.2); Carbon Dioxide 36 mmol/L (22.0-30.0); Glucose 179 mg/dl (74-100)
--- NOTE | 2025-06-29 13:05 | P.DS_ITS ---
<Statement entered by Seth Liu MD - 06/29/25 14:09> Rounded on patient after nurse practitioner. Personally examined and interviewed patient. Agree with exam findings and care plan as documented. General Admission date:: 06/27/25 Discharge date: 06/29/25 HPI HPI HPI: Ms. Charlton is a 70-year-old female who presented to cardiology clinic for follow-up today. She has history of combined heart failure with CardioMEMS in place. Adjustments of the made over the past 2 weeks to her diuretic regimen due to worsening shortness of breath and swelling in her legs along with 16 poun d weight gain over the past 1 to 2 weeks. In spite of adjustments to her loop diuretic and addition of metolazone, she has continued to have swelling in her legs. Presented to clinic today in a wheelchair due to fatigue and weight gain. Cardiology evaluated and requested admission for further management and aggressive diuresis of her heart failure. On arrival to the floor, patient stable on room air but dyspneic with exertion. Has 2-3+ edema in her legs up to her thighs. Reports 16+ pound weight gain in the past 2 weeks. Follows with advanced heart failure clinic at . Case was discussed with their operating manager and our operating manager, they recommended diuresis and monitoring. If gets better then make adjustments to regimen. If does not, would benefit from potential referral/transfer to consider LVAD. Patient has been offered heart transplant in the past and is unsure about this. On evaluation after arriving to the floor, patient stable on room air but quite dyspneic with any exertion. Has edema in bilateral lower extremities. Denies any chest pain, nausea, vomiting, confusion, syncope. Afebrile. Hospital Course Hospital Course Hospital Course: Patient is a 70-year-old female with past medical history of atrial fibrillation, heart failure with reduced ejection fraction status post defibrillator, pacemaker, diabetes mellitus, pulmonary hypertension, cardiomyopathy, hypertension, hyperlipidemia, and anxiety who presents to the hospital for shortness of breath. According to patient she has been feeling short of breath for past few days, she also had increased weight gain over the past 2 weeks. Attempted adjustments to her diuretic regimen as an outpatient but did not have significant increase in urine output or improvement in her weight gain/edema. Presented to cardiology clinic, discussed case with cardiology provider, they request admission for aggressive inpatient diuresis given worsening volume overload. Problems addressed as follows: #Acute on chronic combined heart failure #Hypertension #CAD #A-fib ? BI-V ICD, Impulse Device, and CardioMems, settings adjusted during admission. ?NYHA class IV, severe limitations or symptoms at rest. Patient has been advised by her operating manager she is likely in need of a heart transplant. She has an appointment on 07/08 with [facility] advanced HF clinic for possible LVAD placement. - Patient has history of grade 3 diastolic dysfunction and heart failure with reduced ejection fraction with 30%. On admission patient was initiated on a Bumex drip 1 mg/hour IV for the first 24 hours, transition to Bumex 4 mg IV twice daily. Patient has put out greater than 5L since admission, per cardiology's recommendation will resume patient on Bumex 2 mg twice daily, metolazone 5 mg every 48 hours, and spironolactone 25 mg daily. - Initial weight 96.116 kg, weight at discharge 93.213 kg. - Continue home medications for heart failure digoxin 125 micro daily, metoprolol succinate 12.5 mg daily, Xarelto 20 mg daily. - Chest x-ray obtained that does not show any effusions or focal consolidation. Does have prominent pulmonary vasculature. - Initial troponin less than 0.01. Continued serial troponins remained negative. ?Per cardiology recommendation increase Lipitor to 40 mg daily. #Hyponatremia ? Patient sodium 124 on admission. Patient was placed on a hypertonic saline drip for 24 hours. Serial BMPs were obtained, Na+ 128 at discharge. ? Patient to follow-up with cardiology on Friday, will repeat BMP prior to appointment. #Chronic kidney disease, stage III - Kidney function slightly elevated BUN 45, creatinine 1.6. Baseline creatinine 1.7. Expected due to diuresis, will continue to monitor. Rechecking BMP Friday before cardiology appointment. # Diabetes type 2, insulin-dependent ? Continue Humulin 7?30 as instructed by your PCP, continue dapagliflozin 10 mg daily. Patient has Dexcom for close monitoring of glucose. ? A1c stable at 7.0%. ? Continue gabapentin 600 mg twice daily. #Seizure disorder: Continue phenobarbital 97.2 mg at bedtime. Total time spent on discharge 38 minutes in counseling, documentation, chart review, and direct care with patient. Exam Data for Last 24 hours Vital signs and Labs for Last 24 Hours: Temp Pulse Resp BP Pulse Ox O2 Del Method 97.9 F 71 16 102/47 L 91 L Room Air 06/29/25 04:00 06/29/25 09:42 06/29/25 04:00 06/29/25 09:00 06/29/25 04:00 06/29/25 11:00 Laboratory Results - last 24 hr 06/28/25 13:56: Sodium 123 L, Potassium 3.3 L, Chloride 79 L, Carbon Dioxide 36 H, Anion Gap 11.3, BUN 44 H, Creatinine 1.70 H, Estimated Creat Clear 45, Estimated GFR 30 L, Est GFR ( Amer) 36 L, Glucose 251 H D, Calcium 9.4, Digoxin 1.30 06/28/25 22:22: Sodium 123 L, Potassium 2.8 L*, Chloride 80 L, Carbon Dioxide 36 H, Anion Gap 9.8, BUN 49 H, Creatinine 1.50 H, Estimated Creat Clear 51, Estimated GFR 35 L, Est GFR ( Amer) 42 L, Glucose 200 H D, Calcium 9.0 06/29/25 00:55: Urine Color Yellow, Urine Appearance Clear, Urine pH 7.0, Ur Specific [place] 1.010, Urine Protein Negative, Urine Glucose (UA) 2+, Urine Ketones Negative, Urine Blood Negative, Urine Nitrate Negative, Urine Bilirubin Negative, Urine Urobilinogen 0.2, Ur Leukocyte Esterase Negative, Urine RBC None, Urine WBC None, Ur Squamous Epith Cells Occasional, Urine Bacteria 3+ 06/29/25 05:18: WBC 6.9, RBC 3.21 L, Hgb 11.3 L, Hct 32.0 L, MCV 99.7 H, MCH 35.2 H, MCHC 35.3, RDW 14.6, Plt Count 157, MPV 10.1, Neut % (Auto) 66.9, Lymph % (Auto) 22.2, [place] % (Auto) 8.4, Eos % (Auto) 1.7, Baso % (Auto) 0.4, Neut # (Auto) 4.6, Lymph # (Auto) 1.5, [place] # (Auto) 0.6, Eos # (Auto) 0.1, Baso # (Auto) 0.0, Sodium 126 L, Potassium 3.7 D, Chloride 84 L, Carbon Dioxide 34 H, Anion Gap 11.7, BUN 53 H, Creatinine 1.60 H, Estimated Creat Clear 50, Estimated GFR 32 L, Est GFR ( Amer) 39 L, Glucose 169 H, Hemoglobin A1c 7.0 H, Calcium 9.1, Total Bilirubin 0.6, AST 35, ALT 23, Alkaline Phosphatase 224 H, Total Protein 7.4, Albumin 4.1 D, Globulin 3.3 H, Albumin/Globulin Ratio 1.2, TSH 0.71 06/29/25 09:43: POC Glucose 281 H 06/29/25 11:12: POC Glucose 227 H 06/29/25 12:08: Sodium 128 L, Potassium 3.5, Chloride 86 L, Carbon Dioxide 36 H, Anion Gap 9.5, BUN 51 H, Creatinine 1.70 H, Estimated Creat Clear 47, Estimated GFR 30 L, Est GFR ( Amer) 36 L, Glucose 179 H, Calcium 8.7 I & O for Last 24 hours: Intake & Output 06/26/25 06/27/25 06/28/25 06/29/25 23:59 23:59 23:59 23:59 Intake Total 561.5 / 561.5 1915 / 2505 1262 / 1262 Output Total 3900 / 4700 3500 / 3500 950 / 950 Balance -3338.5 / -4138.5 -1585 / -995 312 / 312 Weight 92.986 kg 90.718 kg 93.213 kg Constitutional Constitutional: no acute distress and cooperative Comments: looking/feeling much better *Routine HEENT Exam Eye: Present PERRL *Routine Respiratory Exam Respiratory: Present CTA bilaterally; Absent accessory muscle use, wheezes or crackles *Routine Cardiovascular Exam Cardiovascular: Present RRR, Normal S1 and Normal S2; Absent murmur, gallop or rubs *Routine Abdominal Exam Abdominal: Present soft; Absent tenderness *Routine Extremities Exam Extremities: Present edema (Trace edema bilateral lower extremities) and pulses intact; Absent cyanosis *Routine Skin Exam Skin: Present intact; Absent erythema or wounds *Routine Neurological Exam Neurological: Present alert and oriented X3 Routine Psychiatric Exam Psychiatric: Present cooperative Results Data Completed and Pending Labs on day of discharge: Labs from last 24 hours 06/29/25 06/29/25 06/29/25 12:08 11:12 09:43 WBC RBC Hgb Hct MCV MCH MCHC RDW Plt Count MPV Neut % (Auto) Lymph % (Auto) [place] % (Auto) Eos % (Auto) Baso % (Auto) Neut # (Auto) Lymph # (Auto) [place] # (Auto) Eos # (Auto) Baso # (Auto) Sodium 128 L Potassium 3.5 Chloride 86 L Carbon Dioxide 36 H Anion Gap 9.5 BUN 51 H Creatinine 1.70 H Estimated Creat Clear 47 Estimated GFR 30 L Est GFR ( Amer) 36 L Glucose 179 H POC Glucose 227 H 281 H Hemoglobin A1c Calcium 8.7 Total Bilirubin AST ALT Alkaline Phosphatase Total Protein Albumin Globulin Albumin/Globulin Ratio TSH Urine Color Urine Appearance Urine pH Ur Specific [place] Urine Protein Urine Glucose (UA) Urine Ketones Urine Blood Urine Nitrate Urine Bilirubin Urine Urobilinogen Ur Leukocyte Esterase Urine RBC Urine WBC Ur Squamous Epith Cells Urine Bacteria Digoxin 06/29/25 06/29/25 06/28/25 05:18 00:55 22:22 WBC 6.9 RBC 3.21 L Hgb 11.3 L Hct 32.0 L MCV 99.7 H MCH 35.2 H MCHC 35.3 RDW 14.6 Plt Count 157 MPV 10.1 Neut % (Auto) 66.9 Lymph % (Auto) 22.2 [place] % (Auto) 8.4 Eos % (Auto) 1.7 Baso % (Auto) 0.4 Neut # (Auto) 4.6 Lymph # (Auto) 1.5 [place] # (Auto) 0.6 Eos # (Auto) 0.1 Baso # (Auto) 0.0 Sodium 126 L 123 L Potassium 3.7 D 2.8 L* Chloride 84 L 80 L Carbon Dioxide 34 H 36 H Anion Gap 11.7 9.8 BUN 53 H 49 H Creatinine 1.60 H 1.50 H Estimated Creat Clear 50 51 Estimated GFR 32 L 35 L Est GFR ( Amer) 39 L 42 L Glucose 169 H 200 H D POC Glucose Hemoglobin A1c 7.0 H Calcium 9.1 9.0 Total Bilirubin 0.6 AST 35 ALT 23 Alkaline Phosphatase 224 H Total Protein 7.4 Albumin 4.1 D Globulin 3.3 H Albumin/Globulin Ratio 1.2 TSH 0.71 Urine Color Yellow Urine Appearance Clear Urine pH 7.0 Ur Specific [place] 1.010 Urine Protein Negative Urine Glucose (UA) 2+ Urine Ketones Negative Urine Blood Negative Urine Nitrate Negative Urine Bilirubin Negative Urine Urobilinogen 0.2 Ur Leukocyte Esterase Negative Urine RBC None Urine WBC None Ur Squamous Epith Cells Occasional Urine Bacteria 3+ Digoxin 06/28/25 13:56 WBC RBC Hgb Hct MCV MCH MCHC RDW Plt Count MPV Neut % (Auto) Lymph % (Auto) [place] % (Auto) Eos % (Auto) Baso % (Auto) Neut # (Auto) Lymph # (Auto) [place] # (Auto) Eos # (Auto) Baso # (Auto) Sodium 123 L Potassium 3.3 L Chloride 79 L Carbon Dioxide 36 H Anion Gap 11.3 BUN 44 H Creatinine 1.70 H Estimated Creat Clear 45 Estimated GFR 30 L Est GFR ( Amer) 36 L Glucose 251 H D POC Glucose Hemoglobin A1c Calcium 9.4 Total Bilirubin AST ALT Alkaline Phosphatase Total Protein Albumin Globulin Albumin/Globulin Ratio TSH Urine Color Urine Appearance Urine pH Ur Specific [place] Urine Protein Urine Glucose (UA) Urine Ketones Urine Blood Urine Nitrate Urine Bilirubin Urine Urobilinogen Ur Leukocyte Esterase Urine RBC Urine WBC Ur Squamous Epith Cells Urine Bacteria Digoxin 1.30 DS: Diagnosis Discharge Diagnosis (1) CHF NYHA class IV (symptoms with any physical activity and at rest): Status: Acute Code(s): I50.9 - Heart failure, unspecified (2) Hyponatremia: Status: Acute Code(s): E87.1 - Hypo-osmolality and hyponatremia (3) History of seizures: Status: Acute Code(s): Z87.898 - Personal history of other specified conditions (4) Atrial fibrillation: Status: Chronic Code(s): I48.91 - Unspecified atrial fibrillation Qualifiers: Atrial fibrillation type: longstanding persistent Qualified Code(s): I48.11 - Longstanding persistent atrial fibrillation (5) Type 2 diabetes mellitus, with long-term current use of insulin: Status: Acute Code(s): E11.9 - Type 2 diabetes mellitus without complications; Z79.4 - CHCF (current) use of insulin Qualifiers: Diabetes mellitus complication status: without complication Qualified Code(s): E11.9 - Type 2 diabetes mellitus without complications; Z79.4 - [facility] (current) use of insulin (6) Type 2 diabetes mellitus with peripheral neuropathy: Status: Acute Code(s): E11.42 - Type 2 diabetes mellitus with diabetic polyneuropathy (7) Acute on chronic renal failure: Status: Acute Code(s): N17.9 - Acute kidney failure, unspecified; N18.9 - Chronic kidney disease, unspecified Qualifiers: Acute renal failure type: unspecified Chronic kidney disease stage: unspecified stage Qualified Code(s): N17.9 - Acute kidney failure, unspecified; N18.9 - Chronic kidney disease, unspecified (8) Coronary artery disease: Status: Chronic Code(s): I25.10 - Atherosclerotic heart disease of [place] coronary artery without angina pectoris Qualifiers: Associated angina: with other forms of angina Coronary Disease- Associated Artery/Lesion type: [place] artery [place] vs. transplanted heart: [place] heart Qualified Code(s): I25.118 - Atherosclerotic heart disease of [place] coronary artery with other forms of angina pectoris (9) Hypertensive disorder: Status: Chronic Code(s): I10 - Essential (primary) hypertension Qualifiers: Hypertension type: essential hypertension Qualified Code(s): I10 - Essential (primary) hypertension Meds Home Medications and Allergies Home Medications ?Medication ?Instructions ?Recorded ?Confirmed ?Type pantoprazole 40 mg tablet,delayed 40 mg PO BID 8 06/27/25 History release tramadol 50 mg tablet 50 mg PO Q6HP PRN Mild Pain (Scale 12/03/17 06/28/25 History Score 1-4) phenobarbital 32.4 mg tablet 97.2 mg PO HS 02/12/20 History digoxin 125 mcg (0.125 mg) tablet 125 mcg PO DAILY 03/1306/27/25 History ropinirole 2 mg tablet 2 mg PO HS 03/28/20 06/27/25 History dapagliflozin propanediol 10 mg 10 mg PO DAILY #30 tab s 12/14/24 06/27/25 Rx tablet (Farxiga) allopurinol 100 mg tablet 100 mg PO DAILY 01/11/2503/18 History isosorbide mononitrate 30 mg 30 mg PO DAILY 01/11/25 0 06/27/25 History tablet,extended release 24 hr loratadine 10 mg tablet 10 mg PO DAILY 01/11/2503/18 History rivaroxaban 20 mg tablet (Xarelto) 20 mg PO QPMWITHMEA L 01/11/25 06/27/25 History insulin human U-100 NPH-regulr 50 unit SQ DAILY 06/28/25 History 70-30 mix 100 unit/mL subcutaneous susp (Humulin 70/30 U-100 Insulin) metoprolol succinate 25 mg 12.5 mg (1/2 x 25 mg) PO DA MARK #30 02/03/25 06/27/25 Rx tablet,extended release 24 hr tabs (Toprol XL) potassium chloride 20 mEq 20 meq PO BID 03/08/2506/27 History tablet,extended release(part/cryst) gabapentin 600 mg tablet 600 mg PO BID 04/12/2506/27 History duloxetine 30 mg capsule,delayed 30 mg PO DAILY 06/27/25 History release metolazone 5 mg tablet 5 mg PO Q48H 06/27/25 History valsartan 40 mg tablet 40 mg PO DAILY 06/27/2504/17 History spironolactone 25 mg tablet 25 mg PO DAILY 06/28/25 History atorvastatin 40 mg tablet (Lipitor) 40 mg PO HS #30 ta bs 06/29/25 Rx bumetanide 2 mg tablet 2 mg PO BID #60 tabs 5 Rx New Prescriptions to Start Prescriptions: atorvastatin [Lipitor] Aaliyah Scuhlz bumetanide Aaliyah Schulz Allergies Allergy/AdvReac Type Severity Reaction Status Date / Time metoclopramide (From REGLAN) Allergy Mild SHAKES Verified 06/27/25 10:42 empagliflozin (From AdvReac Mild itching Verified 06/27/25 10:42 Jardiance) Discharge Plan Disposition Patient Disposition: Home, Self-Care Condition: Fair Discharge Order Discharge Orders: Discharge Order (Routine); Ordered 06/29/25 Ordered By: Aaliyah Schulz Follow up Plan Follow up with: Rad Galvan MD [Primary Care Provider, Medical] - 07/07/25 11:15 am Amadou Oviedo MD [Staff Physician, Cardiology] - 07/12/25 1:15 pm Referral Note: F/U on friday Prescriptions/Medication Reconciliation: New bumetanide 2 mg tablet 2 mg PO BID Qty: 60 0RF atorvastatin [Lipitor] 40 mg tablet 40 mg PO HS Qty: 30 0RF Continued gabapentin 600 mg tablet 600 mg PO BID Patient Comments: TAKE ONE TABLET BY MOUTH EVERY DAY MAY CAUSE DROWSINESS metoprolol succinate [Toprol XL] 25 mg tablet extended release 24 hr 12.5 mg PO DAILY Qty: 30 5RF potassium chloride 20 mEq tablet,ER particles/crystals 20 meq PO BID Patient Comments: TAKE ONE TABLET BY MOUTH TWICE DAILY dapagliflozin propanediol [Farxiga] 10 mg tablet 10 mg PO DAILY Qty: 30 5RF tramadol 50 MG tablet 50 mg PO Q6HP PRN (Reason: Mild Pain (Scale Score 1-4)) pantoprazole 40 MG tablet,delayed release (DR/EC) 40 mg PO BID phenobarbital 32.4 MG tablet 97.2 mg PO HS Humulin 70/30 U-100 Insulin 100 unit/mL (70-30) suspension 50 unit SQ DAILY Patient Comments: INJECT 100 UNITS SUBCUTANEOUSLY EVERY DAY IN THE MORNING AND INJECT 60 UNITS IN THE EVENING metolazone 5 mg tablet 5 mg PO Q48H valsartan 40 mg tablet 40 mg PO DAILY spironolactone 25 mg tablet 25 mg PO DAILY digoxin 125 MCG tablet 125 mcg PO DAILY ropinirole 2 MG tablet 2 mg PO HS allopurinol 100 mg tablet 100 mg PO DAILY loratadine 10 mg tablet 10 mg PO DAILY Patient Comments: TAKE ONE TABLET BY MOUTH EVERY DAY isosorbide mononitrate 30 mg tablet extended release 24 hr 30 mg PO DAILY Xarelto 20 mg tablet 20 mg PO QPMWITHMEAL duloxetine 30 mg capsule,delayed release(DR/EC) 30 mg PO DAILY Patient Comments: TAKE ONE CAPSULE BY MOUTH EVERY DAY Discontinued bumetanide 1 mg tablet 2 mg PO DAILY atorvastatin 10 mg tablet 10 mg PO HS Other Ambulatory Orders: Basic Metabolic Panel (Timed) Timeframe: [id number] Facility: [facility] - Location: Laboratory Ordered By: Aaliyah [place] Problem Reconciliation Problems Reviewed?: Yes Patient Discharge Instructions ACTIVITY: Continue current activity and Ambulate as tolerated DIET: continue same diet Additional Instructions: Following with [facility] Dr. [place]. Plans to discuss LVAD at 07/08 office visit. Patient Instructions: DI for Heart Failure, Stop Light Heart Failure Print Language: Greek Providers Primary Care Provider: Rad Galvan Admit Provider: Seth Liu Attending Provider: Seth Liu
--- NOTE | 2025-07-01 11:01 | SW/DCPLANNER ---
Spoke with patient on the phone. Patient stated that she is doing well. Patient stated that she is aware of her upcoming appointments. 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 Patient stated that she has no concerns or questions at this time. Bryan Aldrich
== END 2025-06-29 15:04 | disposition home or self-care (01) | DRG 291 ==
PROVIDERS: Physician Assistant; Student in an Organized Health Care Education/Training Program; Admitting Provider Internal Medicine Adolescent Medicine; PCP Family Medicine; Visit Provider Internal Medicine Adolescent Medicine
DX: I13.0 Hypertensive heart and chronic kidney disease with heart failure and stage 1 through stage 4 chronic kidney disease, or unspecified chronic kidney disease (principal); I50.43 Acute on chronic combined systolic (congestive) and diastolic (congestive) heart failure; Z95.811 Presence of heart assist device; E87.1 Hypo-osmolality and hyponatremia; I48.19 Other persistent atrial fibrillation; N39.0 Urinary tract infection, site not specified; N17.9 Acute kidney failure, unspecified; E11.610 Type 2 diabetes mellitus with diabetic neuropathic arthropathy; E87.6 Hypokalemia; I25.10 Atherosclerotic heart disease of native coronary artery without angina pectoris; I48.91 Unspecified atrial fibrillation; I27.20 Pulmonary hypertension, unspecified; E78.5 Hyperlipidemia, unspecified; I42.9 Cardiomyopathy, unspecified; F41.9 Anxiety disorder, unspecified; G40.909 Epilepsy, unspecified, not intractable, without status epilepticus; N18.30 Chronic kidney disease, stage 3 unspecified; E11.22 Type 2 diabetes mellitus with diabetic chronic kidney disease; E11.65 Type 2 diabetes mellitus with hyperglycemia; Z95.0 Presence of cardiac pacemaker; B96.1 Klebsiella pneumoniae [K. pneumoniae] as the cause of diseases classified elsewhere; B96.89 Other specified bacterial agents as the cause of diseases classified elsewhere; Z79.01 Long term (current) use of anticoagulants; Z79.4 Long term (current) use of insulin; Z79.899 Other long term (current) drug therapy; Z88.8 Allergy status to other drugs, medicaments and biological substances
CPT/HCPCS: 36415; 71045; 80048; 80053; 80162; 81001; 82962; 83036; 83735; 83880; 84443; 84484; 85025; 87086; 87088; 87186; 87633; 93005; 97163; J1939; J7131

== ENCOUNTER 2025-07-12 13:51 | Outpatient (CLI) | payer MEDICARE, SELFPAY ==
--- OUTSIDE RECORDS SUMMARY | 2025-07-08 13:45 | XMS_ITS | Encounter Summary ---
Author Organization [facility] Address [address] [place] [address] Care Team Providers Care Optical Engineering Technician Name Role Phone Uli Salcedo Unavailable [phone] Rad Galvan MD Primary Care Provider [phone] Reason for Referral * Consultation (Routine) - Authorized Specialty Diagnoses / Procedures Referred By Contac t Referred To Contact Diagnoses Chronic combined systolic and diastolic congestive heart failure (CMS/HCC) Chika Orellana APRN [address] [place] [address] Phone: tel: fax: Referral ID Status Reason Start Date Expiration Date V isits Requested Visits Authorized [id number] Authorized 07/08/2025 01/07/2027 1 1 Reason for Visit * Reason Comments Congestive Heart Failure Post hospital d ischarge visit Encounter Details Date Type Department Care Team (Late st Contact Info) Description 07/08/2025 1:45 PM EDT Office Visit [facility] [address] [facility] [place] [address] Elvin Schuler MD [address] [place] [address] Chronic combined systolic and diastolic congestive heart failure (CMS/HCC) (Primary Dx); Benign hypertensive kidney disease with chronic kidney disease stage I through stage IV, or unspecified Social History Tobacco Use Types Packs/Day Years Used Date Smoking Tobacco: Former Passive Smoke Exposure: Never Smokeless Tobacco: Never Alcohol Use Standard Drinks/Week Comments Not Currently 0 (1 standard drink = 0.6 oz pur e alcohol) PHQ-2 Answer Date Recorded Patient Health Questionnaire-2 Score 1 07/08/2025 PHQ-9 Answer Date Recorded Patient Health Questionnaire-9 Score 10 07/08/2025 Comments No Sex and Gender Information Value Date Recorded Sex Assigned at Not on file Legal Sex Female 7:16 PM EDT Gender Identity Not on file Sexual Orientation Not on file documented as of this encounter Last Filed Vital Signs Vital Sign Reading Time Taken Comments Blood Pressure 92/54 07/08/2025 1:42 PM EDT Pulse 72 07/08/2025 1:42 PM EDT Temperature - - Respiratory Rate - - Oxygen Saturation 93% 07/08/2025 1:42 PM EDT Inhaled Oxygen Concentration - - Weight 92.2 kg (203 lb 4.2 oz) 07/08/2025 1:42 P M EDT Height 154.9 cm (5' 1 ) 07/08/2025 1:42 PM EDT Body Mass Index 38.41 07/08/2025 1:42 PM EDT documented in this encounter Functional Status * Over the past 2 weeks, how often have you been bothered by any of the following problems? Question Answer Date of Assessment Author Little interest or pleasure in doing things Not at all 07/08/2025 1:50 PM EDT Cady Barry Feeling down, depressed, or hopeless Several days 07/08/2025 1:50 PM EDT Cady Barry Patient Health Questionnaire -2 Score 1 07/08/2025 1:50 PM EDT Cady Barry * Question Answer Date of Assessment Author Trouble falling or staying asleep, or sleeping too much Nearly every day 07/08/2025 1:50 PM EDT Cady Barry Feeling tired or having little energy More than half the days 07/08/2025 1:50 PM EDT Cady Barry Poor appetite or overeating Not at all 07/08/2025 1:50 PM EDT Cady Barry Feeling bad about yourself - or that you are a failure or have let yourself or your family down Not at all 07/08/2025 1:50 PM EDT Cady Barry Trouble concentrating on things, such as reading the newspaper or watching television Nearly every day 07/08/2025 1:50 PM EDT Cady Barry Moving or speaking so slowly that other people could have noticed? Or the opposite - being so fidgety or restless that you have been moving around a lot more than usual. Several days 07/08/2025 1:50 PM EDT Cady Barry Thoughts that you would be better off or hurting yourself in some way Not at all 07/08/2025 1:50 PM EDT Cady Barry Patient Health Questionnaire-9 Score 10 07/08/2025 1:50 PM EDT Joe Barry a * If you checked off any problems on this questionnaire so far, Question Answer Date of Assessment Author How difficult have these problems made it for you to do your work, take care of things at home, or get along with other people? Not difficult at all 07/08/2025 1:50 PM EDT Cady Barry * How difficult have these problems made it for you to do your work, take care of things at home, or get along with other people? Answer Date of Assessment Author Not difficult at all 07/08/2025 1:50 PM EDT Cady Coto documented as of this encounter Miscellaneous Notes * Patient Instructions - Chika Orellana APRN - 07/08/2025 1:45 PM EDT 4 mg Bumex tonight, take the Metolazone as scheduled tomorrow with 4mg/2mg bumex. * Progress Notes - Chika Orellana APRN - 07/08/2025 1:45 PM EDT Images from the original note were not included. [facility] Sara Edwards is a 70 y.o. female who presents today for follow up with Dr Schuler for chronic systolic heart failure . She has a long standing history of heart failure which is felt to be familial in nature and was diagnosed back in 2014. She says she initially responded to medical therapy but had worsening of her function later. 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 The patient is diabetic on [...] has not required any extra diuretics. Her CCM was adjusted and she was doing better. She still gets short of breath and fatigued with strenuous or prolonged exertion. Since her last visit her she has been in the hospital with [facility], she had gained 16 pounds and was not responding to increase PO diuretics. On admission her NA was 124 and 128 at discharge. 96 kg on admission and 93 kg on discharge . On her scales at home 204 lbs today, 203 day after discharge. Has not gained more than a pund but does have some edema that is reoccurring. She was discharged on Bumex 2 mg BID and Metolazone 5 mg every other day. She cannot tell any difference when she takes the metolazone. Her PAD peaked at 24/25 and today is 20, was a low of 17 on day of discharge, 06/29/25. She denies any PND orthopnea, is able to go with her friend to the store , will ride the cart around [employer], but walks around the smaller stores. She can prepare her own meals and do light housekeeping. No dizzy spells or syncope, no ICD discharges and no calls from the device clinic alerting her to any arrhythmias. She reports she gets severe headaches that can wake her up. She had one on admission to [facility] and while she was an inpatient. She states this has occurred several times. Has a history of seizures but none in the past 20 years, is on phenobarbitol and has been for 40 years. RHC and CardioMems implant RA: 13 mmHg [...] what is noted above. Past Medical History Past Medical History[1] Surgical History Surgical History[2] Medications [...] Normal mood and behavior Visit Vitals BP 92/54 (BP Location: Left arm, Patient Position: Sitting) Pulse 72 Ht 1.549 m (5' 1 ) Wt 92.2 kg (203 lb 4.2 oz) SpO2 93% BMI 38.41 kg/m?? Labs Lab Results Component Value Date HGB 11.5 11/26/2020 HCT 34.3 11/26/2020 PLT 310 11/26/2020 ALT 19 07/08/2025 AST 40 (H) 07/08/2025 NA 130 (L) 07/08/2025 K 3.7 07/08/2025 CREATININE 1.80 (H) 07/08/2025 BUN 52 (H) 07/08/2025 CO2 28 07/08/2025 HGBA1C 6.6 (H) 02/17/2024 BNP 1,459 (H) 07/08/2025 BILITOT 0.8 07/08/2025 Impression: Chronic systolic heart failure, stage C, NYHA class III, compensated on exam Diabetes mellitus Chronic kidney disease , cr elevated Obesity Plan: Continue current dose of Bumex, digoxin, metoprolol XL 25, continue dapagliflozin, low dose valsartan and spironolactone. Based on improved kidney function, she may be able to tolerate Entresto in the future. Consider transition on follow up Will follow her CardioMems PAD and optimize therapy , reading today was 20 Return to HF clinic in 1-2 months. She will continue to follow up closely with cardiology at [place]. Will get labs today to assess since discharge, will have her take 4 mg Bumex tonight, take the Metolazone as scheduled tomorrow with 4mg/2mg bumex. Dr Schuler had a long discussion with Mrs Edwards regarding advanced therapy options. He discussed TXP vs LVAD, etc. We will start with a RHC on Jul 27 and go from there. She states she doesn't think she would want an LVAD but will see how everything turns out. Asked her to address headaches with her PCP and consider neurology referral for seizure disorder and therapy. A total time of 45 minutes was spent by myself addressing the current illness, reviewing Hospital discharge records, formulating a plan, and discussing the plan with the patient. The patient is agreeable to the plan and all pertinent questions were answered. This patient was seen, reviewed and plan formulated in conjunction with Dr Schuler. Chika Orellana, MEAGAN [facility] [1] Past Medical History: Diagnosis Date CHF [...] [facility] TONSILLECTOMY N/A Tonsillectomy from [facility] [3] Current Outpatient Medications Medication Sig Dispense Refill allopurinol (Zyloprim) 100 MG tablet Take 1 tablet by mouth daily. aspirin 81 MG chewable tablet Chew 1 tablet daily. 30 tablet 2 atorvastatin (Lipitor) 10 MG tablet Take 1 tablet by mouth daily. bumetanide (Bumex) 1 MG tablet Take 2 tablets by mouth daily. Can take additional doses if needed digoxin (Lanoxin) 125 MCG tablet Take 1 [...] tablet Take 1 tablet by mouth daily. metOLazone (Zaroxolyn) 5 MG tablet Take 1 tablet by mouth every other day. metoprolol succinate XL (Toprol-XL) 25 MG 24 [...] Care Team (Late st Contact Info) Description 07/27/2025 Hospital Encounter Cardiac Breakfast Supervisor [address] [place] [address] Elvin Schuler MD [address] [place] [address] Scheduled Procedures Name Priority Associated Diagnoses Date/Ti me RIGHT HEART CATH Chronic combined systolic and diastolic congestive heart failure (CMS/HCC) Scheduled Referrals Name Type Priority Associated Diagnoses Order Schedule Follow Up Cardiology Outpatient Referral Routine Chronic combined systolic and diastolic congestive heart failure (CMS/HCC) Expected: 08/08/2025, Expires: 01/08/2027 documented as of this encounter Procedures Procedure Name Priority Date/Time Associated Diagnosis Comments N-TERMINAL PROBNP, PLASMA Routine 07/08/2025 3:19 PM EDT Chronic combined systolic and diastolic congestive heart failure (CMS/HCC) COMPREHENSIVE METABOLIC PANEL, PLASMA Routine 07/08/2025 3:19 PM EDT Chronic combined systolic and diastolic congestive heart failure (CMS/HCC) documented in this encounter Results * (ABNORMAL) N-Terminal Probnp, Plasma (07/08/2025 3:19 PM EDT) N-Terminal, PROBNP, Plasma 1,459(H) 0 - 899 pg/mL 07/08/2025 4:28 PM EDT [facility] Blood Venous blood specimen / Unknown Venipuncture / Unknown 07/08/2025 3:19 PM EDT 07/08/2025 3:54 PM EDT us Chika Orellana PRODUCT MARKETING COORDINATOR LAB BLOOD ORDERABLES Final Result [facility] [address] [place] [address] * (ABNORMAL) Comprehensive metabolic panel (07/08/2025 3:19 PM EDT) Glucose, Plasma 84 74 - 99 mg/dL 07/08/2025 4:28 PM EDT [facility] BUN, Plasma 52(H) 8 - 23 mg/dL 07/08/2025 4:28 PM EDT [facility] Creatinine, Plasma 1.80(H) 0.60 - 1.10 mg/dL 07/08/2025 4:28 PM EDT [facility] BUN/Creatinine Ratio 29 07/08/2025 4:28 PM EDT [facility] Sodium, Plasma 130(L) 136 - 145 mmol/L 07/08/2025 4:28 PM EDT [facility] Potassium, Plasma 3.7 3.6 - 4.9 mmol/L 07/08/2025 4:28 PM EDT [facility] Chloride, Plasma 87(L) 97 - 107 mmol/L 07/08/2025 4:28 PM EDT [facility] CO2, Plasma 28 22 - 29 mmol/L 07/08/2025 4:28 PM EDT [facility] Anion Gap 15 6 - 16 mmol/L 07/08/2025 4:28 PM EDT [facility] Total Calcium, Plasma 9.4 8.9 - 10.2 mg/dL 07/08/2025 4:28 PM EDT [facility] Total Protein 8.0(H) 6.3 - 7.9 g/dL 07/08/2025 4:28 PM EDT [facility] Albumin, Plasma 4.4 3.5 - 5.2 g/dL 07/08/2025 4:28 PM EDT [facility] AST, Plasma 40(H) 10 - 35 U/L 07/08/2025 4:28 PM EDT [facility] Comment:Hemolyzed, result ma y be falsely increased. ALT, Plasma 19 10 - 35 U/L 07/08/2025 4:28 PM EDT [facility] Alkaline Phosphatase, Plasma 202(H) 46 - 142 U/L 07/08/2025 4:28 PM EDT [facility] Total Bilirubin, Plasma 0.8 0.2 - 1.1 mg/dL 07/08/2025 4:28 PM EDT [facility] eGFRcr 30.4 mL/min/1.7 3m*2 07/08/2025 4:28 PM EDT [facility] Comment:Reported eGFRcr in m L/min/1.73m2 is based the CKD-EPI 2020 equation that does not use a race coefficient. Blood Venous blood specimen / Unknown Venipuncture / Unknown 07/08/2025 3:19 PM EDT 07/08/2025 3:54 PM EDT Chika Orellana APRN LAB BLOOD ORDERABLES Final Result [facility] [address] [place] [address] documented in this encounter Visit Diagnoses Diagnosis Chronic combined systolic and diastolic congestive heart failure (CMS/HCC)- Primary Benign hypertensive kidney disease with chronic kidney disease stage I through stage IV, or unspecified Congestive heart failure (CMS/HCC)- Primary Congestive heart failure, unspecified documented in this encounter Additional Health Concerns Assessment Noted Time PHQ-9 Depression Total Score: 10 025 1:50 PM EDT A fall risk assessment has been complete d for the patient 07/08/2025 1:43 PM EDT A Body Mass Index follow-up plan has been documented for the patient 07/08/2025 3:46 PM EDT documented as of this encounter Care Teams Optical Engineering Technician Relationship Specialty Start Date End Date Rad Galvan MD [address] [place] [address] PCP - General 04/08/25 Uli Salcedo PA [address] [place] [address] Referring Physician 02/03/25 documented as of this encounter
--- OUTSIDE RECORDS SUMMARY | 2025-07-12 13:55 | XMS_ITS | Encounter Summary ---
Author Organization [facility] Address [address] [place] [address] Care Team Providers Care Information Coder Name Role Phone Uli Salcedo Unavailable [phone] Rad Galvan MD Primary Care Provider [phone] Reason for Visit * Reason Onset Date Comments HCN - Patient Message 06/17/2025 Encounter Details Date Type Department Care Team (Late st Contact Info) Description 06/17/2025 Telephone [facility] [place] [facility] [address] [facility] [place] [address] Elvin Schuler MD [address] [place] [address] HCN - Patient Message Social [...] Telephone Encounter - Neptali Johnson RN - 06/28/2025 2:22 PM EDT Contacted Ms alcantar to discuss. Reports weight is down about 11 lbs since admission. Advised to contact our office once discharged from [facility] and we can request records. Voiced understanding. Has appt scheduled with Dr Ortiz on 07/08 at 145 and Ms alcantar is aware * Telephone Encounter - Mami Aviles - 06/27/2025 2:08 PM EDT Status Update Call #1 1st call regarding the status of the initial request. Best contact number: [phone] (home) Optimal time of day to reach caller: ANYTIME Additional comments/information from caller: Pt called to let Neptali know that she was admitted at [facility]. No callback needed. Note: Please do not reply to this message. Follow-up communication and further actions as a result of this message need to be communicated with the patient directly, if the patient is not active onMyChart. If the patient is active on MyChart, they will receive notification of the communication/outcome via [employer]. * Telephone Encounter - Neptali Johnosn RN - 06/27/2025 10:09 AM EDT Contacted [...] contacted office and reported she saw Dr Seaman PA today for f/u. Reported bumex was increased [...] RN - 06/21/2025 8:41 AM EDT Contacted [facility] to request lab results from yesterday. [place] stated they would fax. PAD reading 25 [...] optimal time of day to reach caller: [phone] Note: Please do not reply to this message. Follow-up communication and further actions as a result of this message need to be communicated with the patient directly, if the patient is not active onMyChart. If the patient is active on MyChart, they will receive notification of the communication/outcome via [employer] * Telephone Encounter - Neptali Johnson RN [...] optimal time of day to reach caller: [phone] Note: Please do not reply to this [...] Contact Info) Description 07/27/2025 Hospital Encounter Cardiac Food Prep Worker [address] [place] [address] Elvin Schuler MD [address] [place] [address] Scheduled Orders Name Type Priority Associated Diagnoses Orde r Schedule Basic Metabolic Panel, Plasma Lab Routine Chronic systolic congestive heart failure (CMS/HCC) Expected: 06/20/2025 (Approximate), Expires: 12/22/2026 N-Terminal Probnp, Plasma Lab Routine Chronic systolic congestive heart failure (CMS/HCC) Expected: 06/20/2025 (Approximate), Expires: 12/22/2026 Scheduled Procedures Name Priority Associated Diagnoses Date/Ti me RIGHT HEART CATH Chronic combined systolic and diastolic congestive heart failure (CMS/HCC) documented as of this encounter Visit Diagnoses Diagnosis Chronic systolic congestive heart failure (CMS/HCC)- Primary documented in this encounter Additional Health Concerns Assessment Noted Time PHQ-9 Depression Total Score: 0 04/08/20 25 11:00 AM EDT A fall risk assessment has been complete d for the patient 04/08/2025 10:45 AM EDT A Body Mass Index follow-up plan has been documented for the patient 04/08/2025 12:12 PM EDT documented as of this encounter Care Teams Information Coder Relationship Specialty Start Date End Date Rad Galvan MD [address] [place] [address] PCP - General 04/08/25 Uli Salcedo PA [address] [place] [address] Referring Physician 02/03/25 documented as of this encounter
--- OUTSIDE RECORDS SUMMARY | 2025-07-12 13:55 | XMS_ITS | Encounter Summary ---
Author Organization [facility] Address [address] [place] [address] Care Team Providers Care Paper Folding Machine Operator Name Role Phone Uli Salcedo Unavailable [phone] Rad Galvan MD Primary Care Provider [phone] Encounter Details Date Type Department Care Team (Latest Contact Info) Description 07/08/2025 Travel Social History Tobacco Use Types Packs/Day [...] way Not at all 07/08/2025 1:50 PM EDCady Gambino Patient Health Questionnaire-9 Score 10 07/08/2025 1:50 [...] difficult at all 07/08/2025 1:50 PM EDT Osmar aden Cady documented as of this encounter Plan of Treatment Upcoming Encounters Date Type Department Care Team (Late st Contact Info) Description 07/27/2025 Hospital Encounter Cardiac Senior Graphic Designer [address] [place] [address] Elvin Schuler MD [address] [place] [phone] Scheduled Procedures Name Priority Associated Diagnoses Date/Ti [...] documented as of this encounter Care Teams Paper Folding Machine Operator Relationship Specialty Start Date End Date Rad Galvan MD [address] [place] [address] PCP - General 04/08/25 Uli Salcedo PA [address] [place] [address] Referring Physician 02/03/25 documented as of this encounter
--- OUTSIDE RECORDS SUMMARY | 2025-07-12 13:55 | XMS_ITS | Encounter Summary ---
Author Organization [facility] Address [address] [place] [address] Care Team Providers Care Tube Sorter Name Role Phone Andrew Lee MD Primary Care Provider [phone] Uli Salcedo Unavailable [phone] Rad Galvan MD Primary Care Provider [phone] Encounter Details Date Type Department Care Team (Late st Contact Info) Description 01/11/2025 Orders Only External Location [address] [place] [phone] lUi Salcedo PA [address] [place], [place] [id number] Social History Tobacco Use Types Packs/Day Years [...] Contact Info) Description 07/27/2025 Hospital Encounter Cardiac Testing Machine Operator [address] [place] [phone] Elvin Schuler MD [address] [place] [phone] Scheduled Procedures Name Priority Associated Diagnoses Date/Ti me RIGHT HEART CATH Chronic combined systolic and diastolic congestive heart failure (CMS/HCC) documented as of this encounter Procedures Procedure [...] on filedocumented in this encounter Care Teams Tube Sorter Relationship Specialty Start Date End Date Andrew Lee MD [address] [place] [address] [address] [place] [address] PCP - General 04/06/21 04/07/25 Rad Galvan MD [address] [place] [address] PCP - General 04/08/25 Uli Salcedo PA [address] [place] [address] Referring Physician 02/03/25 documented as of this encounter
--- OUTSIDE RECORDS SUMMARY | 2025-07-12 13:55 | XMS_ITS | Clinical Summary ---
Author Organization [facility] Address [address] [place] [address] Care Team Providers Care Document Control Associate Name Role Phone Uli Salcedo Unavailable [phone] Rad Galvan MD Primary Care Provider [phone] Allergies Active Allergy Reactions Criticality Noted Date [...] additional doses if needed 04/26/20 25 Active metOLazone (Zaroxolyn) 5 MG tablet Take 1 tablet by mouth every other day. Active Active Problems Problem Noted Date Diagnosed Date Obesity (BMI 35.0-39.9 without comorbidity) 06/24 Congestive heart failure 02/18/2025 Encounters Date Type Department Care Team Description 07/08/2025 1:45 PM EDT Office Visit [facility] [address] [place] [address] Elvin Schuler MD Chronic combined systolic and diastolic congestive heart failure (CMS/HCC) (Primary Dx); Benign hypertensive kidney disease with chronic kidney disease stage I through stage IV, or unspecified 07/08/2025 Travel 06/17/2025 Telephone [facility] [address] [address] Elvin Schuler MD HCN - Patient Message 06/16/2025 Telephone [facility] [address] [place] [address] Elvin Schuler MD HCN - Patient Message 04/26/2025 Telephone [facility] [address] [facility] [place] [phone] Yaritza Johnson RN from Last 3 Months Immunizations Immunization Administration [...] Pulse 72 07/08/2025 1:42 PM EDT Temperature 36.7 C (98.1 F) 03/30/2025 10:04 AM EDT Respiratory Rate 16 04/08/2025 10:44 AM EDT Oxygen Saturation 93% 07/08/2025 1:42 PM EDT Inhaled Oxygen Concentration - - Weight 92.2 kg (203 lb 4.2 oz) 07/08/2025 1:42 P M EDT Height 154.9 cm (5' 1 ) 07/08/2025 1:42 PM EDT Body Mass Index 38.41 07/08/2025 1:42 PM EDT Plan of Treatment Upcoming Encounters Date Type Department Care Team (Late st Contact Info) Description 07/27/2025 Hospital Encounter Cardiac Supervisor Pipeline Maintenance [address] [place] [address] Elvin Schuler MD [address] [place] [address] Scheduled Procedures Name Priority Associated Diagnoses Date/Ti me RIGHT HEART CATH Chronic combined systolic and diastolic congestive heart failure (CMS/HCC) Health Maintenance Due Date Last Done Comments [facility]-Bone Density Scan 1957 [facility]-/Child/Adol SDOH Screenings 1957 Diabetes: Dental Exam 1967 [facility]- SDOH Screenings 1975 [facility]-Adult SDOH Screenings 1975 [facility]-DTaP,Tdap,and Td Vaccines (1 - Tdap) 01/24/1997 01/23/1997 CT Colonography 2002 Colonoscopy 2002 FIT 2002 FOBT 2002 Sigmoidoscopy 2002 [facility]-Breast Cancer Screening 2007 [facility]-Zoster Vaccines (1 of 2) 2007 [id number] Vaccine (5 - season) 2024 09/06/2022, 11/28/2021, 03/06/2021, Additional history exists [facility]-Diabetes: Hemoglobin A1C 08/16/2024 02/17/2024 [facility]-Medicare Annual Wellness (AWV) 02/16/2025 02/17/2024 [facility]-Influenza Vaccine (#1) 07/25/202509/24, 08/18/2023, 09/06/2022, Additional history exists FIT-DNA 02/15/2026 02/15/2023 [facility]-Colorectal Cancer Screening 02/15/2026 [facility]-Depression Screening 07/08/2026 07/08/2025, 06/24 [facility]-Hepatitis C Screening Completed 11/26/2020 [facility]-RSV Vaccine: 60+ Years or Completed 12/25/2023 [facility]-Pneumococcal Vaccine: 50+ Years Completed 02/17/2024, 09/12/2016 [facility]-Obesity Intervention Completed 025, 04/08/2025, 02/18/2025, Additional history exists HPV Vaccines Aged [...] systolic and diastolic congestive heart failure (CMS/HCC) N-TERMINAL PROBNP, PLASMA Routine 06/23/2025 10:40 AM EDT BASIC METABOLIC PANEL, PLASMA Routine 06/23/2025 10:40 AM EDT BASIC METABOLIC PANEL, PLASMA Routine 06/20/2025 N-TERMINAL PROBNP, PLASMA Routine 06/17/2025 10:48 AM EDT BASIC METABOLIC PANEL, PLASMA Routine 06/17/2025 10:48 AM EDT HEPATITIS C ANTIBODY - ED W/REFLEX TO HCV QUANT PCR Routine 11/26/2020 6:51 PM EST from Last 3 Months or Most Recently Relevant to Health Maintenance Results * (ABNORMAL) N-Terminal Probnp, Plasma (07/08/2025 3:19 PM EDT) Only the most recent of3 resultswithin the time period is included. N-Terminal, PROBNP, Plasma 1,459(H) 0 - 899 pg/mL 07/08/2025 4:28 PM EDT [facility] Blood Venous blood specimen / Unknown Venipuncture / Unknown 07/08/2025 3:19 PM EDT 07/08/2025 3:54 PM EDT us Chika Orellana APRN LAB BLOOD ORDERABLES Final Result [facility] [address] [place] [address] * (ABNORMAL) Comprehensive metabolic panel (07/08/2025 3:19 PM EDT) Glucose, Plasma 84 74 - 99 mg/dL 07/08/2025 4:28 PM EDT [facility] BUN, Plasma 52(H) 8 - 23 mg/dL 07/08/2025 4:28 PM EDT [facility] Creatinine, Plasma 1.80(H) 0.60 - 1.10 mg/dL 07/08/2025 4:28 PM EDT [facility] BUN/Creatinine Ratio 29 07/08/2025 4:28 PM EDT [facility] Sodium, Plasma 130(L) 136 - 145 mmol/L 07/08/2025 4:28 PM EDT [facility] Potassium, Plasma 3.7 3.6 - 4.9 mmol/L 07/08/2025 4:28 PM EDT [facility] Chloride, Plasma 87(L) 97 - 107 mmol/L 07/08/2025 4:28 PM EDT [facility] CO2, Plasma 28 22 - 29 mmol/L 07/08/2025 4:28 PM EDT [facility] Anion Gap 15 6 - 16 mmol/L 07/08/2025 4:28 PM EDT [facility] Total Calcium, Plasma 9.4 8.9 - 10.2 mg/dL 07/08/2025 4:28 PM EDT [facility] Total Protein 8.0(H) 6.3 - 7.9 g/dL 07/08/2025 4:28 PM EDT [facility] Albumin, Plasma 4.4 3.5 - 5.2 g/dL 07/08/2025 4:28 PM EDT [facility] AST, Plasma 40(H) 10 - 35 U/L 07/08/2025 4:28 PM EDT [facility] Comment:Hemolyzed, result ma y be falsely increased. ALT, Plasma 19 10 - 35 U/L 07/08/2025 4:28 PM EDT [facility] Alkaline Phosphatase, Plasma 202(H) 46 - 142 U/L 07/08/2025 4:28 PM EDT [facility] Total Bilirubin, Plasma 0.8 0.2 - 1.1 mg/dL 07/08/2025 4:28 PM EDT [facility] eGFRcr 30.4 mL/min/1.7 3m*2 07/08/2025 4:28 PM EDT [facility] Comment:Reported eGFRcr in m L/min/1.73m2 is based the CKD-EPI 2020 equation that does not use a race coefficient. Blood Venous blood specimen / Unknown Venipuncture / Unknown 07/08/2025 3:19 PM EDT 07/08/2025 3:54 PM EDT Chika Orellana APRN LAB BLOOD ORDERABLES Final Result [facility] [address] [place] [address] * (ABNORMAL) Basic Metabolic Panel, Plasma (06/23/2025 10:40 AM EDT) Only the most recent of3 resultswithin the [...] specimen / Unknown 06/23/2025 10:40 AM EDT Gabrieltorical Provider LAB BLOOD ORDERABLES F inal Result EXTERNAL LAB * [place] Hepatitis C Antibody (11/26/2020 6:51 PM EST) [place] Hepatitis C Ab NEGATIVE Reference Range: Negative [facility] 11/26/2020 6:51 PM EST 11/26/2020 7:09 PM EST Justo Morse MD LAB BLOOD ORDERABLES Final Re sult [facility] from Last 3 Months or Most Recently Relevant to Health Maintenance Insurance [employer] MEDICARE Advance Directives Documents on File Type Date Recorded 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
--- OUTSIDE RECORDS SUMMARY | 2025-07-12 13:55 | XMS_ITS | Encounter Summary ---
Author Organization [facility] Address [address] [place] [address] Care Team Providers Care Orthopedic Surgeon Name Role Phone Uli Salcedo Unavailable [phone] Rad Galvan MD Primary Care Provider [phone] Reason for Referral * Home Health (Routine) - Authorized Specialty Diagnoses / Procedures Referred By Contaleida t Referred To Contact Home Health Services Diagnoses Chronic systolic congestive heart failure (CMS/HCC) Chika Linares APRN [address] [place] [address] Phone: tel: fax: Referral ID Status Reason Start Date Expiration Date Visits Requested Visits Authorized [id number] Authorized Specialty Services Required 06/17/2025 12/17/2026 999 [id number] Reason for Visit * Reason Onset Date Comments HCN - Patient Message 06/16/2025 Encounter Details Date Type Department Care Team (Late st Contact Info) Description 06/16/2025 Telephone [facility] [place] [facility] [address] [facility] [place] [phone] Elvin Schuler MD [address] [place] [address] HCN - Patient Message Social [...] IV bumex 4mg. Spoke to Anne at [facility] infusion suite. Stated they could collect labs in infusion and administer IV bumex. Stated order would need to be faxed to [phone]. Orders placed and faxed. Contacted ortiz and [...] 1 week. Reports she was admitted at [facility] 2 weeks ago. Reports weight [...] and repeat labs. Stated shewould go to [facility] for repeat. Lab order faxed to [phone] Contacted [facility] medical records and requested records [...] optimal time of day to reach caller: [phone] after 2 PM Note: Please do not reply to this message. Follow-up communication and further actions as a result of this message need to be communicated with the patient directly, if the patient is not active onMyChart. If the patient is active on MyChart, they will receive notification of the communication/outcome via [employer]. documented in this encounter Plan of Treatment Upcoming Encounters Date Type Department Care Team (Late st Contact Info) Description 07/27/2025 Hospital Encounter Cardiac Fight Manager [address] [place] [address] Elvin Schuler MD [address] [place] [address] Scheduled Orders Name Type Priority Associated Diagnoses [...] (CMS/HCC) Expected: 06/17/2025 (Approximate), Expires: 12/19/2026 Scheduled Procedures Name Priority Associated Diagnoses Date/Ti [...] documented as of this encounter Care Teams Orthopedic Surgeon Relationship Specialty Start Date End Date Rad Galvan MD [address] [place] [address] PCP - General 04/08/25 Uli Salcedo PA [address] [place] [address] Referring Physician 02/03/25 documented as of this encounter
[2025-07-12 15:46] LABS: Anion Gap 15.4 mEq/L (5-15); Blood Urea Nitrogen 63 mg/dl (7-17); Calcium 9.4 mg/dl (8.4-10.2); Carbon Dioxide 31 mmol/L (22.0-30.0); Chloride 86 mmol/L (98-107); Creatinine,Serum 1.50 mg/dl (0.52-1.04); Estimated Glomerular Filt Rate 35 ml/min (>60); GFR (African American) 42 ML/MIN (>60); Glucose 124 mg/dl (74-100); Potassium 3.4 mmoL/L (3.5-5.1); Sodium 129 mmol/L (136-145)
== END 2025-07-12 23:59 | disposition home or self-care (01) ==
LOC: LAB 13:52
PROVIDERS: PCP Family Medicine; Visit Provider Physician Assistant
DX: I25.10 Atherosclerotic heart disease of native coronary artery without angina pectoris (principal); E78.5 Hyperlipidemia, unspecified
CPT/HCPCS: 36415; 80048

== ENCOUNTER 2025-08-07 10:17 | Inpatient (IN) | payer MEDICARE, SELFPAY ==
--- OUTSIDE RECORDS SUMMARY | 2025-07-07 11:15 | XMS_ITS | Encounter Summary ---
Author Organization [facility] Address [address] [place] [address] Care Team Providers Care Management Architect Name Role Phone Rad Galvan MD Primary Care Provider + Reason for Referral * Medical Care (Routine) - Authorized Specialty Diagnoses / Procedures Referred By Contac t Referred To Contact Diagnoses Viral cardiomyopathy Nocturnal headaches Procedures Overnight Sleep Oximetry Study Rad Galvan MD [address] [facility] [place] [address] Phone: tel: fax: [facility] [address] [place] [address] Phone: tel: fax: Referral ID Status Reason Start Date Expiration Date V isits Requested Visits Authorized [id number] Authorized 07/07/2025 10/06/2026 1 1 Reason for Visit * Reason Comments FU from [facility] discharge / heart failure Pt has fu w/ Cardio at tomorrow Encounter Details Date Type Department Care Team (Late st Contact Info) Description 07/07/2025 11:15 AM EDT Office Visit [facility] [address] [facility] [place] [address] Rad Galvan MD [address] [facility] [place] [address] Left ventricular systolic dysfunction, chronic [...] from June 27 to June 29 at [facility] for acute systolic congestive heart [...] includes review of medical records, review of fashion consultant notes, time spent preparing for the visit, counseling the patient and her friend, documenting in the medical record documented in this encounter Plan of Treatment Upcoming Encounters Date Type Department Care Team (Late st Contact Info) Description 10/31/2025 11:00 AM EST Office Visit [facility] [address] [place] [address] Rad Galvan MD [address] [place] [address] documented as of this encounter Results [...] documented as of this encounter Care Teams Management Architect Relationship Specialty Start Date End Date Rad Galvan MD [address] [place] [address] PCP - General Family Medicine 04/15/22 documented as of this encounter
--- OUTSIDE RECORDS SUMMARY | 2025-07-08 13:45 | XMS_ITS | Encounter Summary ---
Author Organization [facility] Address [address] [place] [address] Care Team Providers Care Unit Coordinator Name Role Phone Uli Salcedo Unavailable [phone] Rad Galvan MD Primary Care Provider [phone] Reason for Referral * Consultation (Routine) - Authorized Specialty Diagnoses / Procedures Referred By Contac t Referred To Contact Diagnoses Chronic combined systolic and diastolic congestive heart failure (CMS/HCC) Chika Orellana APRN [address] [place] [address] Phone: tel: fax: Referral ID Status Reason Start Date Expiration Date V isits Requested Visits Authorized [id number] Authorized 07/08/2025 01/07/2027 1 1 Reason for Visit * Reason Comments Congestive Heart Failure Post hospital d ischarge visit Encounter Details Date Type Department Care Team (Late st Contact Info) Description 07/08/2025 1:45 PM EDT Office Visit [facility] [place] [facility] [address] [facility] [place] [address] Elvin Schuler MD [address] [place] [address] Chronic combined systolic and diastolic [...] from the original note were not included. [facility] Sara Edwards [...] of her function later. 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 She can prepare her own meals and do light housekeeping. No dizzy spells or syncope, no ICD discharges and no calls from the device clinic alerting her to any arrhythmias. She reports she gets severe headaches that can wake her up. She had one on admission to [facility] and while she was an inpatient. [...] to follow up closely with cardiology at [place]. Will get labs today to assess since [...] conjunction with Dr Schuler. Chika Orellana, MEAGAN [facility] [place] [facility] [1] Past Medical [...] PM EDT Appointment Cardiac Imaging [address] [place] [address] 09/16/2025 4:00 PM EDT Office Visit [facility] [place] [address] [place] [address] Elvni Schuler MD [address] [place] [address] Scheduled Referrals Name Type Priority Associated Diagnoses [...] - 899 pg/mL 07/08/2025 4:28 PM EDT [facility] Blood Venous blood specimen / Unknown Venipuncture / Unknown 07/08/2025 3:19 PM EDT 07/08/2025 3:54 PM EDT us Chika Orellana INSULATION BOARD CALENDER OPERATOR LAB BLOOD ORDERABLES Final Result [facility] [address] [place] [address] * (ABNORMAL) Comprehensive metabolic panel (07/08/2025 3:19 PM EDT) Pathologist [facility] Glucose, Plasma 84 74 - 99 mg/dL 07/08/2025 4:28 PM EDT [facility] BUN, Plasma 52(H) 8 - 23 mg/dL 07/08/2025 4:28 PM EDT [facility] Creatinine, Plasma 1.80(H) 0.60 - 1.10 mg/dL 07/08/2025 4:28 PM EDT [facility] BUN/Creatinine Ratio 29 07/08/2025 4:28 PM EDT [facility] Sodium, Plasma 130(L) 136 - 145 mmol/L 07/08/2025 4:28 PM EDT [facility] Potassium, Plasma 3.7 3.6 - 4.9 mmol/L 07/08/2025 4:28 PM EDT [facility] Chloride, Plasma 87(L) 97 - 107 mmol/L 07/08/2025 4:28 PM EDT [facility] CO2, Plasma 28 22 - 29 mmol/L 07/08/2025 4:28 PM EDT [facility] Anion Gap 15 6 - 16 mmol/L 07/08/2025 4:28 PM EDT [facility] Total Calcium, Plasma 9.4 8.9 - 10.2 mg/dL 07/08/2025 4:28 PM EDT [facility] Total Protein 8.0(H) 6.3 - 7.9 g/dL 07/08/2025 4:28 PM EDT [facility] Albumin, Plasma 4.4 3.5 - 5.2 g/dL 07/08/2025 4:28 PM EDT [facility] AST, Plasma 40(H) 10 - 35 U/L 07/08/2025 4:28 PM EDT [facility] Comment:Hemolyzed, result ma y be falsely increased. ALT, Plasma 19 10 - 35 U/L 07/08/2025 4:28 PM EDT [facility] Alkaline Phosphatase, Plasma 202(H) 46 - 142 U/L 07/08/2025 4:28 PM EDT [facility] Total Bilirubin, Plasma 0.8 0.2 - 1.1 mg/dL 07/08/2025 4:28 PM EDT [facility] eGFRcr 30.4 mL/min/1.7 3m*2 07/08/2025 4:28 PM EDT [facility] Comment:Reported eGFRcr in m L/min/1.73m2 is based the CKD-EPI 2020 equation that does not use a race coefficient. Blood Venous blood specimen / Unknown Venipuncture / Unknown 07/08/2025 3:19 PM EDT 07/08/2025 3:54 PM EDT Chika Orellana APRN LAB BLOOD ORDERABLES Final Result [facility] [address] [place] [address] documented in this encounter Visit Diagnoses Diagnosis [...] documented as of this encounter Care Teams Unit Coordinator Relationship Specialty Start Date End Date Rad Galvan MD [address] [place] [address] PCP - General 04/08/25 Uli Salcedo PA [address] [place] [address] Referring Physician 02/03/25 documented as of this encounter
--- OUTSIDE RECORDS SUMMARY | 2025-07-13 09:00 | XMS_ITS | Encounter Summary ---
Author Organization [facility] Address [address] [phone] Care Team Providers Care Watch Engineer Name Role Phone Rad Galvan MD Primary Care Provider + Reason for Visit * Reason Comments Establish Care Patient complains of chest pressure * Consultation (Routine) - Closed Specialty Diagnoses / Procedures Referred By Regan greene Referred To Contact Cardiology Diagnoses TO EST CARE FOR HER OPTIMIZER Elvin Schuler MD [address] [place] [address] Phone: tel: [place]: [place] [address] [place] [address] [place] [address] Phone: tel: fax: Referral ID Status Reason Start Date Expiration Date Visits Re quested Visits Authorized [id number] Closed 03/22/2025 06/21/2026 1 1 Encounter Details Date Type Department Care Team (Late st Contact Info) Description 07/13/2025 9:00 AM EDT Office Visit [facility] CARDIOLOG[facility] [address] [place] [address] [address] [phone] Sidney Barraza MD [address] [facility] [place] [address] Chronic HFrEF (heart failure with reduced ejection [...] 07/13/25 DATE OF ADMISSION: (Not on file) [facility] CARDIOLOG[facility] Rad Galvan MD [address] [facility] [place] [address] Referring Provider: Elvin Schuler MD Chief Complaint Patient presents with [facility] Care Patient complains of chest pressure Problem List: Chronic systolic heart failure/HFrEF Initially diagnosed 2014 Biventricular ICD implant 05/09/2020- Dr. Armstrong Impulse dynamics September 2022 [facility] 07/05/2024: Mild disease in multiple vessels (20 to 40% severity) Echocardiogram 01/11/2025: EF 30%, moderate MR Cardio mems implant 04/01/2025 followed by [facility] 04/01/2025: mildly elevated reight and normal left [...] presents today in consultation, referred by Dr. Schulre to establish care for her biventricular ICD and CCM device. She has a long history of heart failure which was diagnosed in 2014. She had a biventricular ICDimplant by Dr. Armstrong in 2019 and subsequently impulse dynamics CCM device in September 2022. As far as GDMT, she is on Aldactone, Metoprolol, Valsartan, Farxiga, Bumex. She was recently in the hospital in [place] for fluid overlaod with LE edema. She [...] 60 tablet, Rfl: 2 Comfort EZ Pen [place] 32G X 6 MM [facility], USE DIRECTED FOR insulin injections, Disp: 100 each, Rfl: 5 Continuous Glucose Rivet Catcher (FreeStyle Simón 3 [place]) device, Use 1 each Daily., Disp: 1 [...] 15 minutes., Disp: 30 tablet, Rfl: 0 [place]-3 Fatty Acids (fish oil) 1000 MG capsule [...] PROTIME No results found for: TSH , C9ADNHI , N5ZFUTF , THYROIDAB BiV ICD manual interrogation: RA [...] Valsartan, Metoprolol, Aldactone, Farxiga, Bumex, follows with [facility] Advanced Heart Failure - she is doing [...] Description 10/31/2025 11:00 AM EST Office Visit [facility] MED[facility] [address] [phone] Rad Galvan MD [address] [address] [...] documented as of this encounter Care Teams Watch Engineer Relationship Specialty Start Date End Date Rad Galvan MD [address] [facility] [place] [address] PCP - General Family Medicine 04/15/22 documented as of this encounter
--- OUTSIDE RECORDS SUMMARY | 2025-07-13 10:53 | XMS_ITS | Encounter Summary ---
Author Organization [facility] Address [address] [id number] Care Team Providers Care Ballpoint Pen Cartridge Tester Name Role Phone Rad Galvan MD Primary Care Provider + Reason for Visit * Diagnostic Imaging (Routine) - Closed Specialty Diagnoses / Procedures Referred By Contac t Referred To Contact Radiology Diagnoses S/P implantation of automatic cardioverter/defibrillator (AICD) Procedures XR chest pa and lateral Sidney Barraza MD [address] [place] [address] Phone: tel: fax: Referral ID Status Reason Start Date Expiration Date Visits Re quested Visits Authorized [id number] Closed 07/13/2025 10/12/2026 1 1 Encounter Details Date Type Department Care Team (Late st Contact Info) Description 07/13/2025 10:53 AM EDT - 07/13/2025 11:59 PM EDT Hospital Encounter [facility] XRAY [address] [place] [address] Sidney Barraza MD [address] [place] [address] Discharge Disposition: Home or Self Care Social [...] 60 tablet 2 04/20/2025 Comfort EZ Pen [place] 32G X 6 MM misc USE DIRECTED FOR insulin injections 100 each 5 12/03/2024 Continuous Glucose Ton Cylinder Inspector (FreeStyle Simón 3 [place]) deviceIndications: Type 2 diabetes mellitus with hypoglycemia [...] doses in 15 minutes. 30 tablet 11/18/2023 [place]-3 Fatty Acids (fish oil) 1000 MG capsule [...] chloride (KLOR-CON M20) 20 MEQ CR tabletIndications: intermediate manager current use of diuretic TAKE ONE TABLET [...] Description 10/31/2025 11:00 AM EST Office Visit [facility] MEDICINE [address] [place] [address] Rad Galvan MD [address] [facility] [place] [address] documented as of this encounter Procedures Procedure [...] MD 07/13/2025 4:13 PM EDT Workstation ID: [id number] Narrative 07/13/2025 4:13 PM EDT XR CHEST [...] MD 07/13/2025 4:13 PM EDT Workstation ID: [id number] us Sidney Barraza MD IMG DIAGNOSTIC IMAGING ORDER RICH Final Result documented in this encounter Visit Diagnoses Not on filedocumented in this encounter Additional Health Concerns Assessment Noted Time PHQ-2 Depression Total Score: 1 02/17/20 24 10:24 AM EDT documented as of this encounter Care Teams Ballpoint Pen Cartridge Tester Relationship Specialty Start Date End Date Rad Galvan MD [facility] [place] [address] PCP - General Family Medicine 04/15/22 documented as of this encounter
--- OUTSIDE RECORDS SUMMARY | 2025-07-27 08:02 | XMS_ITS | Encounter Summary ---
Author Organization [facility] Address [address] [place] [address] Care Team Providers Care Canine Service Teacher Name Role Phone Uli Salcedo Unavailable Rad Galvan MD Primary Care Provider [phone] Reason for Visit * Auth/Cert (Routine) Specialty Diagnoses / Procedures Referred By Contac t Referred To Contact Diagnoses Chronic combined systolic and diastolic congestive heart failure (CMS/HCC) Chronic combined systolic and diastolic congestive heart failure (CMS/HCC) [I50.42] Procedures WI RIGHT HEART CATH O2 SATURATION & CARDIAC OUTPUT Right heart catheterization Elvin Schuler MD [address] [place] [address] Phone: tel: fax: Cardiac Can Worker [address] [place] [address] Phone: tel: Referral ID Status Reason Start Date Expiration Date Visits Re quested Visits Authorized [id number] 1 1 Encounter Details Date Type Department Care Team (Latest Contact Info) Description 07/27/2025 8:02 AM EDT - 07/27/2025 10:39 AM EDT Hospital Encounter Cardiac Can Worker [address] [place] [address] Elvin Schuler MD [address] [place] [address] Chronic combined systolic and diastolic congestive heart failure (CMS/HCC) Discharge Disposition: Home or Self Care [...] television Nearly every day 07/08/2025 1:50 PM FAHADT Cady Barry Moving or speaking so slowly [...] Risk Indicated 07/27/2025 8:16 AM EDT Alexsandra Lee, RN * If you checked off any problems on this questionnaire so far, Question Answer Date of Assessment Author How difficult have these problems made it for you to do your work, take care of things at home, or get along with other people? Not difficult at all 07/08/2025 1:50 PM FAHADT Cady Barry * How difficult have these problems made it for you to do your work, take care of things at home, or get along with other people? Answer Date of Assessment Author Not difficult at all 07/08/2025 1:50 PM EDT Cady Coto * Question Answer Date of Assessment Author 1. Wish to be (Past 1 Month) No 025 8:16 AM EDT Alexsandra Lee, RN 2. Non-Specific Active Suici richard Thoughts (Past 1 Month) No 07/27/2025 8:16 AM EDT Alphonso Lee RN 6. Suicidal Behavior (Lifetime) No 8:16 AM Alexsandra Ponce, RN documented as of this encounter Medications [...] intact. Patient ambulated without complication. * [facility] - Alexsandra Lee RN - 07/27/2025 9:36 [...] cannot stop thebleeding, call 911 or 0 (burn out scarfing operator). This is an emergency. Ask for [...] or holidays, call and ask for the Doctor Of Veterinary Medicine quality assurance monitor. * H&P - Elvin Schuler MD - 07/27/2025 8:29 AM EDT History Of Present Illness Sara Edwards is a 70 y.o. female with known chronic systolic heart failure presenting with increasing edema, fatigue, and dyspnea. She was hospitalized over a month ago at [facility] and received IV diuretics. She has a [...] been discussed with the patient and/or their high school admissions representative. All questions answered and they agree to proceed. documented in this encounter Plan of Treatment Upcoming Encounters Date Type Department Care Team (Late st Contact Info) Description 09/16/2025 2:30 PM EDT Appointment Cardiac Imaging [address] [place] [address] 09/16/2025 4:00 PM EDT Office Visit [facility] [address] [place] [address] Elvin Schuler MD [address] [place] [address] documented as of this encounter Procedures Procedure [...] then carried out using a 7.5F VIP [place]-Po catheter. Pressures were recorded as the catheter [...] the patient was transferred back to the slabber holding area in good condition. Hemodynamic Data Pressures Phase: Resting Right RA Mean: 16 mmHg Pulmonary PA: 43/12 (23) mmHg PCW Mean: 11.0 mmHg Marianna: 1.9 Hemodynamic Data Cardiac Output and Resistance Phase: Resting Thermo CO: 4 L/min CI: 2.0 L/min/m2 Resistance Thermo PVR: 3.0 ROUSE Thermo PVR: 240 (dyne x sec)/cm5 Hemodynamic Data Saturations Phase: Resting Saturations PA: 62 % Chika Laytony BAKER SECOND CV CARDIAC CATH PROCEDURES Final Result * (ABNORMAL) POCT CO-Oximitry, Venous (07/27/2025 8:59 AM EDT) [facility] POCT OXYHEMOGLOBIN, VENOUS 62 40 - 70 % 07/27/2025 8:57 AM EDT [facility] Multiple Tube Winding Machine Operator ID Farheen akash Jael 07/27/2025 8:57 AM EDT [facility] Device ID [id number] 07/27/2025 8:57 AM EDT [facility] POCT Sample Site PA 07/27/2025 8:57 AM EDT [facility] POCT Total Hemoglobin 10.4(L) 11.2 - 15.7 g/dL 07/27/2025 8:57 AM EDT [facility] Venous blood specimen / Unknown 07/27/2025 8:59 AM EDT 07/27/2025 8:57 AM EDT Elvin Schuler MD LAB POINT OF CARE T EST DOCKED DEVICE UNSOLICITED RESULTS Final Result [facility] [address] [place] [address] documented in this encounter Visit Diagnoses Diagnosis Congestive heart failure (CMS/HCC)- Primary Congestive heart failure, unspecified Chronic combined systolic and diastolic congestive heart failure (CMS/HCC) Chronic combined systolic and diastolic congestive heart failure (CMS/HCC) documented in this encounter Admitting Diagnoses [...] documented as of this encounter Care Teams Canine Service Teacher Relationship Specialty Start Date End Date Rad Galvan MD [address] [place] [address] PCP - General 04/08/25 Uli Salcedo PA [address] [place] [address] Referring Physician 02/03/25 documented as of this encounter
--- OUTSIDE RECORDS SUMMARY | 2025-07-27 08:45 | XMS_ITS | Encounter Summary ---
Author Organization [facility] Address [address] [place] [address] Care Team Providers Care Floor Steward/Stewardess Name Role Phone Uli Salcedo Unavailable [phone] Rad Galvan MD Primary Care Provider [phone] Reason for Visit * Auth/Cert (Routine) Specialty Diagnoses / Procedures Referred By Contac t Referred To Contact Diagnoses Chronic combined systolic and diastolic congestive heart failure (CMS/HCC) Chronic combined systolic and diastolic congestive heart failure (CMS/HCC) [I50.42] Procedures [place] RIGHT HEART CATH O2 SATURATION & CARDIAC OUTPUT Right heart catheterization Elvin Schuler MD [address] [place] [address] Phone: tel: fax: Cardiac Mid Level Clinician [address] [place] [address] Phone: tel: Referral ID Status Reason Start Date Expiration Date Visits Re quested Visits Authorized [id number] 1 1 Encounter Details Date Type Department Care Team (Late st Contact Info) Description 07/27/2025 8:45 AM EDT - 07/27/2025 10:00 AM EDT Surgery Cardiac Mid Level Clinician [address] [place] [address] Elvin Schuler MD [address] [place] [address] Right heart catheterization [76874 (CPT )] Social History Tobacco Use Types Packs/Day Years [...] 8:16 AM EDT Alexsandra Lee RN * If you checked off any [...] cannot stop thebleeding, call 911 or 0 (track moving machine operator). This is an emergency. Ask for [...] or holidays, call and ask for the Broadcast Engineer boat person. * H&P - Elvin Schuler MD - 07/27/2025 8:29 AM EDT History Of Present Illness Sara Edwards is a 70 y.o. female with known chronic systolic heart failure presenting with increasing edema, fatigue, and dyspnea. She was hospitalized over a month ago at [facility] and received IV diuretics. She [...] been discussed with the patient and/or their sales representative girls' apparel. All questions answered and they agree to proceed. documented in this encounter Plan of Treatment Upcoming Encounters Date Type Department Care Team (Late st Contact Info) Description 09/16/2025 2:30 PM EDT Appointment Cardiac Imaging [address] [place] [address] 09/16/2025 4:00 PM EDT Office Visit [facility] [place] [facility] [address] [place] [address] Elvin Schuler MD [address] [place] [address] documented as of this encounter Procedures Procedure [...] then carried out using a 7.5F VIP [place]-Po catheter. Pressures were recorded as the catheter [...] the patient was transferred back to the cook house laborer holding area in good condition. Hemodynamic Data Pressures Phase: Resting Right RA Mean: 16 mmHg Pulmonary PA: 43/12 (23) mmHg PCW Mean: 11.0 mmHg Marianna: 1.9 Hemodynamic Data Cardiac Output and Resistance Phase: Resting Thermo CO: 4 L/min CI: 2.0 L/min/m2 Resistance Thermo PVR: 3.0 ROUSE Thermo PVR: 240 (dyne x sec)/cm5 Hemodynamic Data Saturations Phase: Resting Saturations PA: 62 % Chika Laytonmeek RHODES CV CARDIAC CATH PROCEDURES Final Result * (ABNORMAL) POCT CO-Oximitry, Venous (07/27/2025 8:59 AM EDT) [facility] POCT OXYHEMOGLOBIN, VENOUS 62 40 - 70 % 07/27/2025 8:57 AM EDT [facility]ALTH[facility]ARE LAB Criminal Researcher ID Ahsan-Mes ch, Jael 07/27/2025 8:57 AM EDT [facility]ARE LAB Device ID [id number] 07/27/2025 8:57 AM EDT [facility] POCT Sample Site PA 07/27/2025 8:57 AM EDT [facility]ALTH[facility]ARE LAB POCT Total Hemoglobin 10.4(L) 11.2 - 15.7 g/dL 07/27/2025 8:57 AM EDT [facility] Venous blood specimen / Unknown 07/27/2025 8:59 AM EDT 07/27/2025 8:57 AM EDT Elvin Schuler MD LAB POINT OF CARE T EST DOCKED DEVICE UNSOLICITED RESULTS Final Result [facility] [address] [place] [address] documented in this encounter Visit Diagnoses Diagnosis [...] on Fri07/27/25 at 0845, Until Fri07/27/25 at 09, Routine, Intraprocedure Given 07/27/2025 8:45 AM EDT [...] documented as of this encounter Care Teams Floor Steward/Stewardess Relationship Specialty Start Date End Date Rad Galvan MD [address] [place] [address] PCP - General 04/08/25 Uli Salcedo PA [address] [place] [address] Referring Physician 02/03/25 documented as of this encounter
--- OUTSIDE RECORDS SUMMARY | 2025-08-01 10:15 | XMS_ITS | Encounter Summary ---
Author Organization [facility] Address [address] [place] [address] Care Team Providers Care Field Account Manager Name Role Phone Rad Galvan MD Primary Care Provider + Reason for Referral * Diagnostic Imaging (Routine) - Authorized Specialty Diagnoses / Procedures Referred By Contac t Referred To Contact Diagnoses Encounter for screening mammogram for malignant neoplasm of breast Procedures Mammo Screening Digital Tomosynthesis Bilateral With CAD Rad Galvan MD [address] [facility] [place] [address] Phone: tel: fax: [facility] - OUTPT PHYSICAL THERAPY [address] [place] [address] Phone: tel: fax: Referral ID Status Reason Start Date Expiration Date V isits Requested Visits Authorized [id number] Authorized 08/01/2025 10/31/2026 1 1 Reason for Visit * Reason Comments Medicare Wellness-subsequent Encounter Details Date Type Department Care Team (Late st Contact Info) Description 08/01/2025 10:15 AM EDT Office Visit [facility] [address] [facility] [place] [place] [phone] Rad Galvan MD [address] [facility] [place] [address] Type 2 diabetes mellitus with [...] Everywhere. * Health Maintenance After Age 65 (Zimbabwean) documented in this encounter Progress Notes * [...] 10:15 AM EDTAssociated Problem(s): Viral cardiomyopathy {CHF (Optional):73590} * Rad Galvan MD - 08/01/2025 10:15 AM EDTAssociated Problem(s): Type 2 diabetes mellitus with stage 3b chronic kidney disease, with long-term current use of insulin {Diabetes (Optional):1016558822} * Rad Galvan MD - 08/01/2025 10:15 [...] admitted within the past 365 days at [facility]. Current Medical Providers: Patient Care Team: [...] Day.) 60 tablet 2 Comfort EZ Pen [place] 32G X 6 MM [facility] USE DIRECTED FOR insulin injections 100 each 5 Continuous Glucose Manufacturing Assembler (FreeStyle Simón 3 [place]) device Use 1 each Daily. 1 each [...] doses in 15 minutes. 30 tablet 0 [place]-3 Fatty Acids (fish oil) 1000 MG capsule [...] C SCREENING Completed Pneumococcal Vaccine 50+ Completed [facility] Preventative Services Quick Reference Risk Factors [...] criteria . She is undergoing evaluation at [facility]. Patient has diabetes which she continues to [...] Description 10/31/2025 11:00 AM EST Office Visit [facility] [address] [place] [phone] Rad Galvan MD [address] [place] [address] Scheduled Orders Name Type Priority Associated Diagnoses [...] Hemoglobin A1C 7.2(A) 4.5 - 5.7 % [facility] Lot Number [id number] [facility] Expiration Date 03/09/2027 [facility] Blood 08/01/2025 10:4 0 AM EDT Rad Galvan MD POINT OF CARE TEST ORDER RICH Final Result [facility]
[address] [place] [address], documented in this encounter Visit Diagnoses Diagnosis Type 2 diabetes mellitus with hyperglycemia, with long-term current use of insulin- Primary Medicare annual wellness visit, subsequent Annual physical exam Routine general medical examination at a [facility] care facility Encounter for screening mammogram for [...] as of this encounter Care Teams Field Account Manager Relationship Specialty Start Date End Date Rad Galvan MD [address] [place] [address] PCP - General Family Medicine 04/15/22 documented as of this encounter
[2025-08-07] VITALS (14 sets, daily range): BP systolic 90–159; BP diastolic 42–64; PULSE 68–87; RESP 13–20; TEMP 36.6–37.7; O2SAT 92–99; BMI 39.4; BMI 40.0
--- OUTSIDE RECORDS SUMMARY | 2025-08-07 10:30 | XMS_ITS | Encounter Summary ---
Author Organization [facility] Address [address] [place] [address] Care Team Providers Care Associate Professor Of Art History Name Role Phone Rad Galvan MD Primary Care Provider + Encounter Details Date Type Department Care Team (Latest Contact Info) Description 07/13/2025 Travel Social History Tobacco Use Types Packs/Day [...] Description 10/31/2025 11:00 AM EST Office Visit [facility] [address] [facility] [place] [address] Rad Galvan MD [address] [facility] [place] [address] documented as of this encounter Visit Diagnoses Not on filedocumented in this encounter Additional Health Concerns Assessment Noted Time PHQ-2 Depression Total Score: 1 02/17/20 24 10:24 AM EDT documented as of this encounter Care Teams Associate Professor Of Art History Relationship Specialty Start Date End Date Rad Galvan MD [address] [place] [address] PCP - General Family Medicine 04/15/22 documented as of this encounter
--- OUTSIDE RECORDS SUMMARY | 2025-08-07 10:31 | XMS_ITS | Clinical Summary ---
Author Organization [facility] Address [address] [place] [address] Care Team Providers Care Director Of Counseling Name Role Phone Uli Salcedo Unavailable [phone] Rad Galvan MD Primary Care Provider [phone] Allergies Active Allergy Reactions Criticality Noted Date [...] daily. 30 tablet 2 03/30/20 25 Active metOLazone (Zaroxolyn) 5 MG tablet Take 1 tablet by mouth every other day. Active bumetanide (Bumex) 1 MG tablet Take 2 tablets by mouth daily. Can take additional doses if needed 90 tablet 6 08/04/20 25 Active bumetanide (Bumex) 1 MG tablet Take 2 tablets by mouth daily. Can take additional doses if needed 04/26/20 025 Discontin ued(Reord er) Active Problems Problem Noted Date Diagnosed Date Obesity (BMI 35.0-39.9 without comorbidity) 06/24 Congestive heart failure 02/18/2025 Encounters Date Type Department Care Team Description 08/04/2025 Refill [facility] [address] [place] [address] Yaritza Johnson RN 07/27/2025 8:45 AM EDT - 07/27/2025 10:00 AM EDT Surgery Cardiac [facility] [address] [place] [phone] Elvin Schuler MD Right heart catheterization [54215 (CPT )] 07/27/2025 8:02 AM EDT - 07/27/2025 10:39 AM EDT Hospital Encounter Cardiac [facility] [address] [place] [address] Elvin Schuler MD Chronic combined systolic and diastolic congestive heart failure (CMS/HCC) Discharge Disposition: Home or Self Care 07/27/2025 Telephone [facility] Vascular [facility] [address] [place] [address] Yaritza Johnson RN 07/22/2025 Telephone [facility] [address] [facility] [place] [phone] Chika Orellana, MEAGAN 07/08/2025 1:45 PM EDT Office Visit [facility] [address] [place] [address] Elvin Schuler MD Chronic combined systolic and diastolic congestive heart failure (CMS/HCC) (Primary Dx); Benign hypertensive kidney disease with chronic kidney disease stage I through stage IV, or unspecified 07/08/2025 Travel 06/17/2025 Telephone [facility] [address] [place] [address] Elvin Schuler MD HCN - Patient Message 06/16/2025 Telephone [facility] [place] [address] [place] [address] Elvin Schuler MD HCN - Patient Message from Last 3 Months Immunizations Immunization Administration [...] Mass Index 38.07 07/27/2025 8:14 AM EDT Plan of Treatment Upcoming Encounters Date Type Department Care Team (Late st Contact Info) Description 09/16/2025 2:30 PM EDT Appointment Cardiac Imaging [address] [place] [address] 09/16/2025 4:00 PM EDT Office Visit [facility] [place] [address] [place] [address] Elvin Schuler MD [address] [place] [address] Health Maintenance Due Date Last Done Comments [facility]-Bone Density Scan 1957 [facility]-/Child/Adol SDOH Screenings 1957 Diabetes: Dental Exam 1967 [facility]- SDOH Screenings 1975 [facility]-Adult SDOH Screenings 1975 [facility]-DTaP,Tdap,and Td Vaccines (1 - Tdap) 01/24/1997 01/23/1997 CT Colonography 2002 Colonoscopy 2002 FIT 2002 FOBT 2002 Sigmoidoscopy 2002 [facility]-Breast Cancer Screening 2007 [facility]-Zoster Vaccines (1 of 2) 2007 [facility]-Medicare Annual Wellness (AWV) 02/16/2025 02/17/2024 [facility]-Diabetes: Hemoglobin A1C 07/07/2025, 09/24/2024, 05/24/2024, Additional history exists CVV-[id number] Vaccine ( - season) 2025 09/06/2022, 11/28/2021, 03/06/2021, Additional history exists [facility]-Influenza Vaccine (#1) 07/25/202509/24, 08/18/2023, 09/06/2022, Additional history exists FIT-DNA 02/15/2026 02/15/2023 [facility]-Colorectal Cancer Screening 02/15/2026 [facility]-Depression Screening 07/08/2026 07/08/2025, 06/24 [facility]-Hepatitis C Screening Completed 11/26/2020 [facility]-RSV Vaccine: 60+ Years or Completed 12/25/2023 [facility]-Pneumococcal Vaccine: 50+ Years Completed 02/17/2024, 09/12/2016 [facility]-Obesity Intervention Completed 025, 07/08/2025, 07/08/2025, Additional history exists HPV Vaccines Aged Out [...] UNSOLICITIED RESULTS Routine 07/27/2025 8:59 AM EDT N-TERMINAL PROBNP, PLASMA Routine 07/08/2025 3:19 PM [...] Recently Relevant to Health Maintenance Results * RIGHT HEART CATHETERIZATION (07/27/2025 9:01 [...] then carried out using a 7.5F VIP [place]-Po catheter. Pressures were recorded as the catheter [...] the patient was transferred back to the cleaning laborer holding area in good condition. Hemodynamic [...] POCT CO-Oximitry, Venous (07/27/2025 8:59 AM EDT) POCT OXYHEMOGLOBIN, VENOUS 62 40 - 70 % 07/27/2025 8:57 AM EDT [facility] Bridge Welder ID Ahsan-Diana ch, Jael 07/27/2025 8:57 AM EDT HEALTH[facility]ARE LAB Device ID [id number] 07/27/2025 8:57 AM EDT [facility] POCT Sample Site PA 07/27/2025 8:57 AM EDT [facility] POCT Total Hemoglobin 10.4(L) 11.2 - 15.7 g/dL 07/27/2025 8:57 AM EDT [facility] Venous blood specimen / Unknown 07/27/2025 8:59 AM EDT 07/27/2025 8:57 AM EDT us Elvin Schuler MD LAB POINT OF CARE T EST DOCKED DEVICE UNSOLICITED RESULTS Final Result Performing Organization Address City/[facility] Co de Phone Number [facility] [address] [place] [phone] * (ABNORMAL) N-Terminal Probnp, Plasma (07/08/2025 3:19 PM EDT) Only the most recent of3 resultswithin the time period is included. N-Terminal, PROBNP, Plasma 1,459(H) 0 - 899 pg/mL 07/08/2025 4:28 PM EDT [facility] Blood Venous blood specimen / Unknown Venipuncture / Unknown 07/08/2025 3:19 PM EDT 07/08/2025 3:54 PM EDT us Chika Orellana APRN LAB BLOOD ORDERABLES Final Result Performing Organization Address City/[facility]/ZIP Co de Phone Number [facility] [address] [place] [address] * (ABNORMAL) Comprehensive metabolic panel (07/08/2025 3:19 PM EDT) Glucose, Plasma 84 74 - 99 mg/dL 07/08/2025 4:28 PM EDT [facility] BUN, Plasma 52(H) 8 - 23 mg/dL 07/08/2025 4:28 PM EDT [facility] Creatinine, Plasma 1.80(H) 0.60 - 1.10 mg/dL 07/08/2025 4:28 PM EDT [facility] BUN/Creatinine Ratio 29 07/08/2025 4:28 PM EDT [facility] Sodium, Plasma 130(L) 136 - 145 mmol/L 07/08/2025 4:28 PM EDT [facility] Potassium, Plasma 3.7 3.6 - 4.9 mmol/L 07/08/2025 4:28 PM EDT [facility] Chloride, Plasma 87(L) 97 - 107 mmol/L 07/08/2025 4:28 PM EDT [facility] CO2, Plasma 28 22 - 29 mmol/L 07/08/2025 4:28 PM EDT [facility] Anion Gap 15 6 - 16 mmol/L 07/08/2025 4:28 PM EDT [facility] Total Calcium, Plasma 9.4 8.9 - 10.2 mg/dL 07/08/2025 4:28 PM EDT [facility] Total Protein 8.0(H) 6.3 - 7.9 g/dL 07/08/2025 4:28 PM EDT [facility] Albumin, Plasma 4.4 3.5 - 5.2 g/dL 07/08/2025 4:28 PM EDT [facility] AST, Plasma 40(H) 10 - 35 U/L 07/08/2025 4:28 PM EDT [facility] Comment:Hemolyzed, result ma y be falsely increased. ALT, Plasma 19 10 - 35 U/L 07/08/2025 4:28 PM EDT [facility] Alkaline Phosphatase, Plasma 202(H) 46 - 142 U/L 07/08/2025 4:28 PM EDT [facility] Total Bilirubin, Plasma 0.8 0.2 - 1.1 mg/dL 07/08/2025 4:28 PM EDT [facility] eGFRcr 30.4 mL/min/1.7 3m*2 07/08/2025 4:28 PM EDT [facility] Comment:Reported eGFRcr in m L/min/1.73m2 is based the CKD-EPI 2020 equation that does not use a race coefficient. Blood Venous blood specimen / Unknown Venipuncture / Unknown 07/08/2025 3:19 PM EDT 07/08/2025 3:54 PM EDT Chika Orellana ASSISTANT FACILITY MANAGER LAB BLOOD ORDERABLES Final Result [facility] [address] [place] [address] * (ABNORMAL) Basic Metabolic Panel, Plasma (06/23/2025 [...] AM EDT Historical Provider LAB BLOOD ORDERABLES Final R esult EXTERNAL LAB * Avis Hepatitis C Antibody (11/26/2020 6:51 PM EST) Avis Hepatitis C Ab NEGATIVE Reference Range: Negative [facility] 11/26/2020 6:51 PM EST 11/26/2020 7:09 PM EST us Justo Morse MD LAB BLOOD ORDERABLES Final Re sult [facility]QUEST from Last 3 Months or Most Recently Relevant to Health Maintenance Insurance [employer] MEDICARE Advance Directives Documents on File Type Date Recorded Patient Drying Room Attendant Expl anation Advance Directives and Living Will 03/30/2025 LIVING WILL DIRECTIV E * Full Code (Latest Code Status on File) Date Activated Date Inactivated Comments 07/27/2025 9:34 AM 07/27/2025 12:40 PM Question Answer Comments Patient has decision-making capacity? Yes Healthcare Agents on File Name Relationship Healthcare Agent Relationshi p Communication Yennifer Edwards Daughter Next of Kin Care Teams Director Of Counseling Relationship Specialty Start Date End Date Rad Galvan MD [address] [place] [address] PCP - General 04/08/25 Uli Salcedo PA [address] [place] [address] Referring Physician 02/03/25
--- OUTSIDE RECORDS SUMMARY | 2025-08-07 10:31 | XMS_ITS | Encounter Summary ---
Author Organization [facility] Address [address] [place] [address] Care Team Providers Care Drafting Technician Name Role Phone Uli Salcedo Unavailable [phone] aRd Galvan MD Primary Care Provider [phone] Encounter Details Date Type Department Care Team (Late st Contact Info) Description 07/22/2025 Telephone [facility] [place] [address] [place] [address] Chika Orellana APRN [address] [place] [address] Social History Tobacco Use Types [...] encounter Miscellaneous Notes * Telephone Encounter - Chika Orellana APRN - 07/22/2025 4:45 PM EDT Increase Bumex to 2 mg bid for 2 days then resume usual dose in reponse to elevated PAD on Cardiomems. documented in this encounter Plan of Treatment Upcoming Encounters Date Type Department Care Team (Late st Contact Info) Description 09/16/2025 2:30 PM EDT Appointment Cardiac Imaging [address] [place] [address] 09/16/2025 4:00 PM EDT Office Visit [facility] [place] [address] [place] [address] Elvin Schuler MD [address] [place] [address] documented as of this encounter Visit Diagnoses [...] documented as of this encounter Care Teams Drafting Technician Relationship Specialty Start Date End Date Rad Galvan MD [address] [place] [address] PCP - General 04/08/25 Uli Salcedo PA [address] [place] [address] Referring Physician 02/03/25 documented as of this encounter
--- OUTSIDE RECORDS SUMMARY | 2025-08-07 10:32 | XMS_ITS | Clinical Summary ---
Author Organization [facility] Address [address] [place] [address] Care Team Providers Care Bakery Helper Name Role Phone Rad Galvan MD Primary Care Provider + Allergies Active Allergy Reactions Criticality Noted Date Comments Empagliflozin Itching Low 01/21/2025 Metoclopramide Rash Low 04/15/2022 Medications Wolsey-3 Fatty Acids (fish oil) 1000 MG capsule capsule Take 2 capsules by mouth Daily With Breakfast. Active multivitamin with minerals tablet tablet Take 1 tablet by mouth Daily. Active rivaroxaban (XARELTO) 20 MG tablet Take 1 tablet by mouth Daily. Active polyethylene glycol (MiraLax) 17 GM/SCOOP powderIndication s:Drug-induced constipation Take 17 g by mouth Daily. 850 g 2 023 Active nitroglycerin (NITROSTAT) 0.[address] 1 tablet under the tongue Every 5 (Five) Minutes As Needed for Chest Pain. Take no more than 3 doses in 15 minutes. 30 tablet 023 Active loratadine (CLARITIN) 10 MG tabletIndication s:Allergic rhinitis due to pollen TAKE ONE TABLET BY MOUTH EVERY DAY 30 tablet 11 024 Active Comfort EZ Pen Ramsay 32G X 6 MM [facility] USE DIRECTED FOR insulin injections 100 each 5 025 Active dapagliflozin Propanediol (Farxiga) 10 MG tablet Take by mouth. From cardio Active valsartan (Diovan) 40 MG tabletIndication s:Chronic left ventricular systolic dysfunction Take 1 tablet by mouth 2 (Two) Times a Day. 025 Active insulin aspart (NovoLOG FlexPen) 100 UNIT/ML solution pen-injector sc penIndications:T ype 2 diabetes mellitus with hyperglycemia, with long-term current use of insulin Inject 8 Units under the skin into the appropriate area as directed As Needed (glucose >400). 3 mL 025 Active metoprolol succinate XL (TOPROL-XL) 25 MG 24 hr tablet Take 0.5 tablets by mouth Daily. 025 Active Continuous Glucose Nail Setter (FreeStyle Simón 3 Maynard) deviceIndication s:Type 2 diabetes mellitus with hypoglycemia without coma, with long-term current use of insulin,Type 2 diabetes mellitus with hyperglycemia, with long-term current use of insulin Use 1 each Daily. 1 each 025 Active Continuous Glucose Sensor (FreeStyle Simón 3 Plus Sensor)Indicatio ns:Type 2 diabetes mellitus with hypoglycemia without coma, with long-term current use of insulin,Type 2 diabetes mellitus with hyperglycemia, with long-term current use of insulin Use Every 15 (Fifteen) Days. 2 each 025 Active potassium chloride (KLOR-CON M20) 20 MEQ CR tabletIndication s:roasterman current use of diuretic TAKE ONE TABLET BY MOUTH TWICE DAILY 60 tablet 3 025 Active Semaglutide,0.25 or 0.5MG/DOS, (OZEMPIC) 2 MG/3ML solution pen-injectorIndi cations:Type 2 diabetes mellitus with hyperglycemia, with long-term current use of insulin Inject 0.25 mg under the skin into the appropriate area as directed 1 (One) Time Per Week. 025 Active isosorbide mononitrate (IMDUR) 30 MG 24 hr tablet Take 1 tablet by mouth Daily. Active insulin NPH-insulin regular (humuLIN 70/30,novoLIN 70/30) (70-30) 100 UNIT/ML injectionIndicat ions:Type 2 diabetes mellitus with hyperglycemia, with long-term current use of insulin 40 units q AM and 40 units q PM 025 Active traMADol (ULTRAM) 50 MG tabletIndication s:Chronic midline low back pain without sciatica Take 1 tablet by mouth Every 6 (Six) Hours As Needed for Moderate Pain. 120 tablet 3 025 Active bumetanide (BUMEX) 1 MG tablet TAKE TWO TABLETS BY MOUTH EVERY DAY 60 tablet 2 025 Active Additional Information Patient taking differently:2 mg Oral2 Times Daily, Reported on 08/01/2025 rOPINIRole (REQUIP) 2 MG tabletIndication s:Restless leg syndrome TAKE ONE TABLET BY MOUTH EVERY NIGHT 30 tablet 11 025 Active pantoprazole (PROTONIX) 40 MG EC tabletIndication s:Gastroesophage al reflux disease without esophagitis TAKE ONE TABLET BY MOUTH TWICE DAILY 60 tablet 11 025 Active atorvastatin (LIPITOR) 10 MG tabletIndication s:Type 2 diabetes mellitus with hyperglycemia TAKE ONE TABLET BY MOUTH EVERY DAY 30 tablet 025 Active allopurinol (ZYLOPRIM) 100 MG tablet TAKE ONE TABLET BY MOUTH EVERY DAY 60 tablet 5 Active digoxin (LANOXIN) 125 MCG tabletIndication s:Longstanding persistent atrial fibrillation TAKE ONE TABLET BY MOUTH EVERY DAY 30 tablet 5 025 Active PHENobarbital 32.4 MG tabletIndication s:Seizure disorder TAKE THREE TABLETS BY MOUTH EVERY DAY AT BEDTIME 90 tablet 5 025 Active spironolactone (ALDACTONE) 25 MG tablet TAKE ONE TABLET BY MOUTH EVERY DAY 90 tablet 1 Active potassium chloride ER (K-TAB) 20 MEQ tablet controlled-relea se ER tabletIndication s:Hypokalemia Take 1 tablet by mouth Every 12 (Twelve) Hours. 6 tablet 5 025 Active gabapentin (NEURONTIN) 600 MG tabletIndication s:Diabetic peripheral neuropathy associated with type 2 diabetes mellitus TAKE ONE TABLET BY MOUTH TWICE DAILY MAY CAUSE DROWSINESS 60 tablet 3 025 Active gabapentin (NEURONTIN) 600 MG tabletIndication s:Diabetic peripheral neuropathy associated with type 2 diabetes mellitus Take 1 tablet by mouth 2 (Two) Times a Day. 60 tablet 2 025 2024 Discontinued potassium chloride ER (K-TAB) 20 MEQ tablet controlled-relea se ER tablet TAKE ONE TABLET BY MOUTH TWICE DAILY 120 tablet 5 025 2024 Discontinued(R eorder) Zoster Vac Recomb Adjuvanted 50 MCG/0.5ML reconstituted suspensionIndica tions:Need for vaccination Inject 0.5 mL into the appropriate muscle as directed by prescriber 1 (One) Time for 1 dose. 1 each 2 025 2024 Active Problems Problem Noted Date Diagnosed Date Chronic HFrEF (heart failure with reduced ejection fraction) 07/13/2025 Assessment & Plan (08/01/2025 11:01 AM EDT): Obstructive sleep apnea 07/07/2025 Assessment & Plan (08/01/2025 11:01 AM EDT): Type 2 diabetes mellitus wit h hyperglycemia, with long-term current use of insulin 01/20/2025 Assessment & Plan (08/01/2025 11:01 AM EDT): Diabetes is stable. Continue current treatment regimen. Diabetes will be reassessed in 6 months Orders: POC Glycosylated Hemoglobin (Hb A1C) Assessment & Plan (01/20/2025 11:47 AM EST): [...] use of insulin 01/23/2023 Assessment & Plan (08/01/2025 11:01 AM EDT): {Diabetes (Optional):[id number]} Assessment & Plan (01/20/2025 11:47 AM EST): [...] evening. She will be referred back to [facility] podiatry for topical interventions that may [...] persistent atrial fibrillation 03/25 Viral cardiomyopathy 04/15/2022 Assessment & Plan (08/01/2025 11:01 AM EDT): {CHF (Optional):[id number]} Seizure disorder 04/15/2022 Assessment & Plan (08/01/2025 11:01 AM EDT): Encounters Date Type Department Care Team Description 08/02/2025 Telephone [facility] [address] [place] [address] Rad Galvan MD PHARMACY CALLS 08/02/2025 Documentation [facility] [address] [address] Stormy Wade PA 08/01/2025 10:15 AM EDT Office Visit [facility] [address] [address] Rad Galvan MD Type 2 diabetes mellitus [...] disease, with long-term current use of insulin 08/01/2025 Refill [facility] [address] [address] Rad Galvan MD Diabetic peripheral neuropathy associated with type 2 diabetes mellitus 08/01/2025 Travel 07/29/2025 Telephone [facility] [address] [place] [address] Rad Galvan MD ORDERS 07/18/2025 Telephone [facility] [address] [address] Rad Galvan MD PHARMACY CALLS 07/18/2025 [facility] [address] [address] Rad Galvan MD 07/15/2025 Telephone [facility] [address] [address] Rad Galvan MD CALLBACK REQUEST 07/15/2025 [facility] [address] [employer] [facility] [employer] [facility] [employer] [place] [address] Rad Galvan MD New Med Request 07/13/2025 10:53 AM EDT - 07/13/2025 11:59 PM EDT Hospital Encounter [facility] [address] [place] [address] Sidney Barraza MD Discharge Disposition: Home or Self Care 07/13/2025 9:00 AM EDT Office Visit [facility] [address] [address] Sidney Barraza MD Chronic HFrEF (heart failure with reduced ejection fraction) (Primary Dx); Longstanding persistent atrial fibrillation 07/13/2025 Travel 07/07/2025 11:15 AM EDT Office Visit [facility] [address] [address] Rad Galvan MD Left ventricular systolic dysfunction, chronic (Primary Dx); Viral cardiomyopathy; Nocturnal headaches; Obstructive sleep apnea 07/07/2025 Travel 06/30/2025 Travel 06/30/2025 Refill [facility] [address] [place] [address] Rad Galvan MD Longstanding persistent atrial fibrillation; Seizure disorder 06/28/2025 Telephone [facility] [address] [place] [address] Rad Galvan MD PAPERWORK REQUEST; PAPERWORK REQUEST - SEVERAL CALLS 06/27/2025 [facility] [address] [place] [address] Rad Galvan MD PAPERWORK REQUEST 06/21/2025 [facility] [address] [place] [address] Rad Galvan MD FOLLOW UP ON FAX 06/02/2025 Refill [facility] [address] [place] [address] Rad Galvan MD Longstanding persistent atrial fibrillation; Seizure disorder; Restless leg syndrome; Gastroesophageal reflux disease without esophagitis; Type 2 diabetes mellitus with hyperglycemia from Last 3 Months Immunizations Immunization Administration [...] Father Jakob Fish Hyperlipidemia Father Jakob Fish Alcohol abuse Mother Meseret Villasenor heart trouble had to stop her heart three times and restart it stomach trouble high blood pressure Hyperlipidemia Mother Meseret Villasenor Diabetes Sister Nicole [...] Mass Index 38.51 08/01/2025 10:09 AM EDT Plan of Treatment Upcoming Encounters Date Type Department Care Team (Late st Contact Info) Description 10/31/2025 11:00 AM EST Office Visit [facility] [address] [address] Rad Galvan MD [address], [place] [id number] Health Maintenance Due Date Last Done Comments COLON CANCER SCREENING [address] COLONOGRAPHY 2002 FECAL OCCULT BLOOD TEST 2002 FIT Testing (1 year) 2002 TDAP/TD VACCINES (2 - Tdap) 01/23/2007 01/23/1997 ZOSTER VACCINE (1 of 2) 2007 DIABETIC EYE EXAM 02/13/2022 02/13/2021 DXA SCAN 02/18/2025 02/18/2023, 02/18/2023 MAMMOGRAM 02/18/2025 02/18/2023, 01/23, 02/18/2023, Additional history exists COVID-19 Vaccine ( season) 2025 09/06/2022, 11/28/2021, 03/06/2021, Additional history exists Postponed from 07/25/2025 (Product Unavailable) INFLUENZA VACCINE 08/24/2025 09/24/2024, , 09/06/2022, Additional history exists URINE MICROALBUMIN-CREATININE RATIO (uACR) 01/07/2026 01/07/2025 HEMOGLOBIN A1C 01/29/2026 08/01/2025, 04/24, 04/07/2025, Additional history exists COLOGUARD 02/15/2026 02/15/2023 DIABETIC FOOT EXAM 07/26/2026 07/26/2025, 0 05/02/2025, 03/17/2024, Additional history exists ANNUAL WELLNESS VISIT 08/01/2026 08/01/2025 , 08/01/2025, 02/17/2024, Additional history exists COLONOSCOPY 05/01/2033 05/01/2023 COLORECTAL CANCER SCREENING 05/01/2033 Pneumococcal Vaccine 50+ Completed 02/17/2024, 08/25 HEPATITIS C SCREENING Completed 01/15/2025 Procedures Procedure Name Priority Date/Time Associated Diagnosis Comments POCT GLYCOSYLATED HEMOGLOBIN (HGB A1C) Routine 08/01/2025 10:40 AM EDT Type 2 diabetes mellitus with hyperglycemia, with long-term current use of insulin SCANNED - FOOT EXAM 07/26/2025 XR CHEST PA AND LATERAL Routine 07/13/2025 11:02 AM EDT S/P implantation of automatic cardioverter/defibri llator (AICD) ECG 12-LEAD Routine 07/13/2025 10:07 AM EDT Chronic HFrEF (heart failure with reduced ejection fraction) SCANNED - LABS 07/12/2025 PULSE OXIMETRY, OVERNIGHT Routine 07/11/2025 Viral cardiomyopathy Nocturnal headaches SCANNED EKG 06/27/2025 SCANNED EKG 06/27/2025 SCANNED - IMAGING 06/27/2025 SCANNED - LABS 06/23/2025 SCANNED - LABS 06/20/2025 SCANNED - LABS 06/17/2025 SCANNED EKG 05/27/2025 SCANNED EKG 05/26/2025 SCANNED - IMAGING 05/26/2025 SCANNED - IMAGING 05/26/2025 SCANNED - IMAGING 05/26/2025 SCANNED - IMAGING 05/26/2025 POC ALBUMIN/CREATININE RATIO Routine 01/07/2025 3:18 PM EST Type 2 diabetes mellitus with hyperglycemia, with long-term current use of insulin SCANNED - DEXA 02/18/2023 SCANNED - MAMMO 02/18/2023 COLOGUARD Routine 02/15/2023 4:07 PM EDT Colon cancer screening from Last 3 Months or Most Recently Relevant to Health Maintenance Results * (ABNORMAL) POC Glycosylated Hemoglobin (Hb A1C) (08/01/2025 10:40 AM EDT) Hemoglobin A1C 7.2(A) 4.5 - 5.7 % [facility] Lot Number [id number] [facility] Expiration Date 03/09/2027 [facility] Blood 08/01/2025 10:4 0 AM EDT Rad Galvan MD POINT OF CARE TEST ORDER RICH Final Result [facility]
[address] [place] [address], * FOOT EXAM SCANNED (07/26/2025) Rad Galvan MD CHART REVIEW TABS Fin al Result * XR chest pa and lateral (07/13/2025 11:02 AM EDT) Anatomical Region Laterality Modality Body, Chest N/A Radiographic Gracie ging 07/13/2025 4:09 PM EDT Impressions 07/13/2025 4:13 PM EDT Impression: 1. Bilateral AICD with leads as above. 2. No acute cardiopulmonary process. Electronically Signed: Leonid Harris MD 07/13/2025 4:13 PM EDT Workstation ID: [id number] Narrative 07/13/2025 4:13 PM EDT XR CHEST [...] MD 07/13/2025 4:13 PM EDT Workstation ID: [id number] Result [facility] Sidney Barraza MD IMG DIAGNOSTIC IMAGING ORDER RICH Final Result * ECG 12-LEAD (07/13/2025 10:07 AM EDT) Narrative Sidney Barraza MD - 07/13/2025 10:07 AM EDT Sidney Barraza MD 07/13/2025 2:21 PM ECG 12 Lead Date/Time: 07/13/2025 10:07 AM Performed by: Sidney Barraza MD Authorized by: Sidney Barraza MD Comparison: compared with previous ECG from 06/27/2025 Similar to previous ECG Rhythm: atrial fibrillation and paced BPM: 77 Result [facility] Sidney Barraza MD ECG ORDERABLES Final Result * LABS SCANNED (07/12/2025) Only the most recent of4 resultswithin the time period is included. Result [facility] Rad Galvan MD LAB BLOOD ORDERABLES Fin al Result * Overnight Sleep Oximetry Study (07/11/2025) Result [facility] Rad Galvan MD RESPIRATORY CARE ORDERAB LES Final Result * ECG Scan (06/27/2025) Only the most recent of4 resultswithin the time period is included. Rad Galvan MD ECG ORDERABLES Final Re sult * IMAGING SCANNED (06/27/2025) Only the most recent of5 resultswithin the time period is included. Anatomical Region Laterality Modality Radiographic Gracie ging Rad Galvan MD IMG DIAGNOSTIC IMAGING O RDERABLES Final Result * (ABNORMAL) Albumin/Creatinine Ratio Urine (01/07/2025 3:18 PM EST) Pathologist [facility] POC ALBUMIN, URINE 30 mg/L POC CREATININE, URINE 50 mg/dL POC Urine Albumin Creatinine Ratio 30-300 <30 Comment:abnormal Lot Number [id number] Expiration Date 10/23/2025 Urine 01/07/2025 3:18 PM EST Result [facility] Rad Galvan MD POINT OF CARE TEST ORDER RICH Final Result * SCANNED - MAMMO (02/18/2023) Anatomical Region Laterality Modality Other Result [facility] Rad Galvan MD CHART REVIEW TABS Fin al Result * SCANNED - DEXA (02/18/2023) Anatomical Region Laterality Modality Other Result [facility] Rad Galvan MD CHART REVIEW TABS Fin al Result * (ABNORMAL) Cologuard - Stool, Per Rectum (02/15/2023 4:07 PM EDT) Pathologist [facility] Cologuard Positive( A) Negative 02/25/2023 5:18 PM EDT [facility] (CLIA #:[id number]) Comment: POSITIVE TEST RESULT. A positive Cologuard [...] (Kathleen Roberts al, N Engl J Med 2014;370(14):5611-2789.) Cologuard may produce a false negative or false positive result (no colorectal cancer or precancerous polyp present at colonoscopy follow up). A negative Cologuard test result does not guarantee the absence of CRC or advanced adenoma (pre-cancer). The current Cologuard screening interval is every 3 years. ([place] [employer] Society and U.S. Multi-Society Task Force). Cologuard performance data in a 10,000 patient pivotal study using colonoscopy as the reference method can be accessed at the following location: www.Spotjournal/results. Additional description of the Cologuard test process, warnings and precautions can be found at www.[employer]d.com. Stool specimen (specimen) Specimen from rectum / Unknown 02/15/2023 4:07 PM EDT 02/18/2023 3:05 PM EDT Rad Galvan MD BODY FLUIDS AND STOOLS O RDERABLES Final Result [facility] (CLIA #:[id number]) [address] [place] [address], from Last 3 Months or Most Recently Relevant to Health Maintenance Insurance [facility] Medicare [employer] PPO Care Teams Bakery Helper Relationship Specialty Start Date End Date Rad Galvan MD [address] [facility] [place] [place] [address] PCP - General Family Medicine 04/15/22
--- OUTSIDE RECORDS SUMMARY | 2025-08-07 10:32 | XMS_ITS | Encounter Summary ---
Author Organization [facility] Address [address] [place] [address] Care Team Providers Care Soaker Meat Name Role Phone Uli Salcedo Unavailable [phone] Rad Galvan MD Primary Care Provider [phone] Reason for Visit * Reason Onset Date Comments HCN - Patient Message 06/17/2025 Encounter Details Date Type Department Care Team (Late st Contact Info) Description 06/17/2025 Telephone [facility] [address] [facility] [place] [address] Elvin Schuler MD [address] [place] [address] HCN - Patient Message Social [...] to contact our office once discharged from [facility] and we can request records. Voiced understanding. Has appt scheduled with Dr Ortiz on 07/08 at 145 and Ms alcantar is aware * Telephone Encounter - Mami Aviles - 06/27/2025 2:08 PM EDT Status Update Call #1 1st call regarding the status of the initial request. Best contact number: [phone] (home) Optimal time of day to reach caller: ANYTIME Additional comments/information from caller: Pt called to let Neptali know that she was admitted at [facility]. No callback needed. Note: Please do not reply to this message. Follow-up communication and further actions as a result of this message need to be communicated with the patient directly, if the patient is not active onMyChart. If the patient is active on MyChart, they will receive notification of the communication/outcome via [employer]. * Telephone Encounter - Neptali Johnson RN [...] RN - 06/21/2025 8:41 AM EDT Contacted [facility] to request lab results from yesterday. [facility] stated they would fax. PAD reading 25 [...] optimal time of day to reach caller: [phone] Note: Please do not reply to this message. Follow-up communication and further actions as a result of this message need to be communicated with the patient directly, if the patient is not active onMyChart. If the patient is active on MyChart, they will receive notification of the communication/outcome via [employer]. * Telephone Encounter - Neptali Johnson RN [...] optimal time of day to reach caller: [phone] Note: Please do not reply to this [...] PM EDT Appointment Cardiac Imaging [address] [place] [address] 09/16/2025 4:00 PM EDT Office Visit [facility] [address] [place] [address] Elvin Schuler MD [address] [place] [address] Scheduled Orders Name Type Priority Associated Diagnoses [...] documented as of this encounter Care Teams Soaker Meat Relationship Specialty Start Date End Date Rad Galvan MD [address] [place] [address] PCP - General 04/08/25 Uli Salcedo PA [address] [place] [address] Referring Physician 02/03/25 documented as of this encounter
--- OUTSIDE RECORDS SUMMARY | 2025-08-07 10:32 | XMS_ITS | Encounter Summary ---
Author Organization [facility] Address [address] [id number] Care Team Providers Care Belling Machine Operator Name Role Phone Uli Salcedo Unavailable Rad Galvan MD Primary Care Provider [phone] Reason for Visit * Reason Onset Date Comments Med Refill 08/04/2025 Encounter Details Date Type Department Care Team (Late st Contact Info) Description 08/04/2025 Refill [facility] [address] [facility] [place] [address] Yaritza Johnson, RN [facility] [address] [place] [address] Social History Tobacco Use Types Packs/Day Years [...] PM EDT Appointment Cardiac Imaging [address] [place] [address] 09/16/2025 4:00 PM EDT Office Visit [facility] [address] [place] [address] Elvin Schuler MD [address] [place] [address] documented as of this encounter Visit Diagnoses [...] documented as of this encounter Care Teams Belling Machine Operator Relationship Specialty Start Date End Date Rad Galvan MD [address] [place] [address] PCP - General 04/08/25 Uli Salcedo PA [address] [place] [address] Referring Physician 02/03/25 documented as of this encounter
--- OUTSIDE RECORDS SUMMARY | 2025-08-07 10:32 | XMS_ITS | Encounter Summary ---
Author Organization [facility] Address [address] [place] [address] Care Team Providers Care Nuclear Control Room Operator Name Role Phone Rad Galvan MD Primary Care Provider + Reason for Visit * Reason Comments Med Refill Encounter Details Date Type Department Care Team (Late st Contact Info) Description 08/01/2025 Refill [facility] [address] [facility] [place] [address] Rad Galvan MD [address] [facility] [place] [address] Diabetic peripheral neuropathy associated with type 2 diabetes mellitus Social History Tobacco Use Types Packs/Day Years [...] PM EDT documented as of this encounter Functional Status documented as of this encounter Plan of Treatment Upcoming Encounters Date Type Department Care Team (Late st Contact Info) Description 10/31/2025 11:00 AM EST Office Visit [facility] [address] [place] [address] Rad Galvan MD [address] [place] [address] documented as of this encounter Visit Diagnoses Diagnosis Diabetic peripheral neuropathy associated with type 2 diabetes mellitus documented in this encounter Additional Health Concerns Assessment Noted Time PHQ-2 Depression Total Score: 1 02/17/20 24 10:24 AM EDT documented as of this encounter Care Teams Nuclear Control Room Operator Relationship Specialty Start Date End Date Rad Galvan MD [address] [place] [address] PCP - General Family Medicine 04/15/22 documented as of this encounter
--- OUTSIDE RECORDS SUMMARY | 2025-08-07 10:32 | XMS_ITS | Encounter Summary ---
Author Organization [facility] Address [address] [place] [address] Care Team Providers Care Internet Marketing Manager Name Role Phone Rad Galvan MD Primary Care Provider + Reason for Visit * Reason Onset Date Comments PHARMACY CALLS 08/02/2025 Encounter Details Date Type Department Care Team (Late st Contact Info) Description 08/02/2025 Telephone [facility]INE [address] [place] [address] Rad Galvan MD [address] [place] [address] PHARMACY CALLS Social History Tobacco Use Types Packs/Day Years [...] encounter Miscellaneous Notes * Telephone Encounter - Triny Montero LPN - 08/02/2025 2:29 PM EDT Spoke with pt aware of response * Telephone Encounter - Rad Galvan MD - 08/02/2025 1:35 PM EDT Patient's echo vasc tech will have to contacted. * Telephone Encounter - Marlen Mittal RegSched Rep - 08/02/2025 9:26 AM EDT Pharmacy Name: [facility] - [address] - [phone] - [phone] Pharmacy order entry representative name: ROSALBA Pharmacy order entry representative phone number:[phone] What medication are you calling in regards to: SPIRONOLACTONE What question does the pharmacy have: THE PATIENT TOLD THE PHARMACY THAT HER BREAKER OILER INCREASEDHER DOSE FROM ONE 25 MG TABLET TO TWO 25MG TABLETS THE PHARMACY DID NOT GET A NEW PRESCRIPTION AND THE PATIENT TOLD THE PHARMACY TO CALL DOCTOR MARYCARMEN TO ASK FOR THAT documented in this encounter Plan of Treatment Upcoming Encounters Date Type Department Care Team (Late st Contact Info) Description 10/31/2025 11:00 AM EST Office Visit [facility] [address] [place] [phone] Rad Galvan MD [address] [address] documented as of this encounter Visit Diagnoses Not on filedocumented in this encounter Additional Health Concerns Assessment Noted Time PHQ-2 Depression Total Score: 1 02/17/20 24 10:24 AM EDT documented as of this encounter Care Teams Internet Marketing Manager Relationship Specialty Start Date End Date Rad Galvan MD [address] [place] [address] PCP - General Family Medicine 04/15/22 documented as of this encounter
--- OUTSIDE RECORDS SUMMARY | 2025-08-07 10:32 | XMS_ITS | Encounter Summary ---
Author Organization [facility] Address [address] [place] [address] Care Team Providers Care Welder Tech Name Role Phone Rad Galvan MD Primary Care Provider + Reason for Visit * Reason Onset Date Comments ORDERS 07/29/2025 Encounter Details Date Type Department Care Team (Late st Contact Info) Description 07/29/2025 Telephone [facility] MEDICINE [address] [place] [address] Rad Galvan MD [address] [place] [address] ORDERS Social History Tobacco Use Types Packs/Day Years [...] Telephone Encounter - Triny Montero LPN - 08/01/2025 8:04 AM EDT Appt today * Telephone Encounter - Jigna Tang RegSched Rep - 07/29/2025 11:39 AM EDT Caller: Sara Edwards Relationship: Self Best call back number: [phone] What is the best time to reach you: ANYTIME Who are you requesting to speak with (clinical staff, provider, specific staff member): CLINICAL STAFF What was the call regarding: PATIENT IS CALLING TO SEE IF SHE CAN HAVE LABS DRAWN FOR HER UPCOMING WELLNESS VISIT, INCLUDING THE A1C, BE SENT TO [facility] Is it okay if the provider responds through MyChart: YES documented in this encounter Plan of Treatment Upcoming Encounters Date Type Department Care Team (Late st Contact Info) Description 10/31/2025 11:00 AM EST Office Visit [facility]INE [address] [place] [address] Rad Galvan MD [address] [place] [address] documented as of this encounter Visit Diagnoses Not on filedocumented in this encounter Additional Health Concerns Assessment Noted Time PHQ-2 Depression Total Score: 1 02/17/20 24 10:24 AM EDT documented as of this encounter Care Teams Welder Tech Relationship Specialty Start Date End Date Rad Galvan MD [address] [place] [address] PCP - General Family Medicine 04/15/22 documented as of this encounter
--- OUTSIDE RECORDS SUMMARY | 2025-08-07 10:32 | XMS_ITS | Encounter Summary ---
Author Organization [facility] Address [address] [place] [address] Care Team Providers Care Drive Tester Name Role Phone Rad Galvan MD Primary Care Provider + Encounter Details Date Type Department Care Team (Latest Contact Info) Description 06/30/2025 Travel Social History Tobacco Use Types Packs/Day [...] Description 10/31/2025 11:00 AM EST Office Visit [facility] MEDICINE [address] [facility] [place] [address] aRd Galvan MD [address] [facility] [place] [address] documented as of this encounter Visit Diagnoses Not on filedocumented in this encounter Additional Health Concerns Assessment Noted Time PHQ-2 Depression Total Score: 1 02/17/20 24 10:24 AM EDT documented as of this encounter Care Teams Drive Tester Relationship Specialty Start Date End Date Rad Galvan MD [address] [place] [address] PCP - General Family Medicine 04/15/22 documented as of this encounter
--- OUTSIDE RECORDS SUMMARY | 2025-08-07 10:32 | XMS_ITS | Encounter Summary ---
Author Organization [facility] Address [address] [place] [address] Care Team Providers Care Meat Pumper Name Role Phone Uli Salcedo Unavailable [phone] Rad Galvan MD Primary Care Provider [phone] Reason for Referral * Imaging (Routine) - Pending Review Specialty Diagnoses / Procedures Referred By Contac t Referred To Contact Cardiology Diagnoses Chronic combined systolic and diastolic congestive heart failure (CMS/HCC) Procedures Echo, Adult Transthoracic Complete Elvin Schuler MD [address] [place] [address] Phone: tel: fax: Referral ID Status Reason Start Date Expiration Date Visits Requested Visits Authorized [id number] Pending Review Perform Procedure 07/27/2025 01/26/2027 1 1 Encounter Details Date Type Department Care Team (Late st Contact Info) Description 07/27/2025 Telephone [facility] [address] [facility] [place] [address] Yaritza Johnson, RN [facility] VAD PROGRAM [address] [place] [address] Social History Tobacco Use Types Packs/Day Years [...] as of this encounter Functional Status * Calculated C-SSRS Risk Score (Lifetime/Recent) Answer Date of Assessment Author No Risk Indicated 07/27/2025 8:16 AM EDT Alexsandra Lee RN * Question Answer Date of Assessment Author 1. Wish to be (Past 1 Month) No 025 8:16 AM EDT Alexsandra Lee RN 2. Non-Specific Active Suici richard Thoughts (Past 1 Month) No 07/27/2025 8:16 AM EDT Alphonso Lee RN 6. Suicidal Behavior (Lifetime) No 8:16 AM EDT Alexsandra Lee RN documented as of this encounter Miscellaneous Notes * Telephone Encounter - Yaritza Johnson RN - 07/27/2025 11:04 AM EDT Notified by Dr Schuler after RHC procedure to schedule echo with return appt in the next 4-6 weeks. ECHo order placed and message sent to scheduling to arrange documented in this encounter Plan of Treatment Upcoming Encounters Date Type Department Care Team (Late st Contact Info) Description 09/16/2025 2:30 PM EDT Appointment Cardiac Imaging [address] [place] [address] 09/16/2025 4:00 PM EDT Office Visit [facility] [address] [facility] [place] [address] Elvin Schuler MD [address] [place] [address] Scheduled Orders Name Type Priority Associated Diagnoses Order Schedule Echo, Adult Transthoracic Complete Echocardiography Routine Chronic combined systolic and diastolic congestive heart failure (CMS/HCC) Expected: 07/27/2025 (Approximate), Expires: 01/28/2027 documented as of this encounter Visit Diagnoses Diagnosis Chronic combined systolic and diastolic congestive heart failure (CMS/HCC)- Primary documented in this encounter Additional Health Concerns Assessment Noted Time PHQ-9 Depression Total Score: 10 025 1:50 PM EDT A fall risk assessment has been complete d for the patient 07/08/2025 1:43 PM EDT A Body Mass Index follow-up plan has been documented for the patient 07/27/2025 9:48 AM EDT documented as of this encounter Care Teams Meat Pumper Relationship Specialty Start Date End Date Rad Galvan MD [address] [place] [address] PCP - General 04/08/25 Uli Salcedo PA [address] [place] [address] Referring Physician 02/03/25 documented as of this encounter
--- OUTSIDE RECORDS SUMMARY | 2025-08-07 10:32 | XMS_ITS | Encounter Summary ---
Author Organization [facility] Address [address] [place] [address] Care Team Providers Care Loop Drier Operator Name Role Phone Uli Salcedo Unavailable [phone] Rad Galvan MD Primary Care Provider [phone] Reason for Referral * Home Health (Routine) - Authorized Specialty Diagnoses / Procedures Referred By Contaleida t Referred To Contact Home Health Services Diagnoses Chronic systolic congestive heart failure (CMS/HCC) Chika Linares APRN [address] [place] [address] Phone: tel: fax: Referral ID Status Reason Start Date Expiration Date Visits Requested Visits Authorized [id number] Authorized Specialty Services Required 06/17/2025 12/17/2026 999 999 Reason for Visit * Reason Onset Date Comments HCN - Patient Message 06/16/2025 Encounter Details Date Type Department Care Team (Late st Contact Info) Description 06/16/2025 Telephone [facility] [place] [facility] [address] [facility] [place] [address] Elvin Schuler MD [address] [place] [address] HCN - Patient Message Social [...] IV bumex 4mg. Spoke to Anne at [facility] infusion suite. Stated they could collect labs in infusion and administer IV bumex. Stated order would need to be faxed to [phone]. Orders placed and faxed. Contacted ortiz and [...] 1 week. Reports she was admitted at [facility] 2 weeks ago. Reports weight as 210 [...] and repeat labs. Stated shewould go to [facility] for repeat. Lab order faxed to [phone] Contacted [facility] medical records and requested records be faxed [...] optimal time of day to reach caller: [phone] after 2 PM Note: Please do not reply to this message. Follow-up communication and further actions as a result of this message need to be communicated with the patient directly, if the patient is not active onMyChart. If the patient is active on MyChart, they will receive notification of the communication/outcome via PingThingshart. documented in this encounter Plan of Treatment Upcoming Encounters Date Type Department Care Team (Late st Contact Info) Description 09/16/2025 2:30 PM EDT Appointment Cardiac Imaging [address] [place] [address] 09/16/2025 4:00 PM EDT Office Visit [facility] [address] [place] [address] Elvin Schuler MD [address] [place] [address] Scheduled Orders Name Type Priority Associated Diagnoses [...] documented as of this encounter Care Teams Loop Drier Operator Relationship Specialty Start Date End Date Rad Galvan MD [address] [place] [address] PCP - General 04/08/25 Uli Salcedo PA [address] [place] [address] Referring Physician 02/03/25 documented as of this encounter
--- OUTSIDE RECORDS SUMMARY | 2025-08-07 10:32 | XMS_ITS | Encounter Summary ---
Author Organization [facility] Address [address] [place] [id number] Care Team Providers Care Laboratory Courier Name Role Phone Rad Galvan MD Primary Care Provider + Reason for Visit * Reason Comments Med Refill Encounter Details Date Type Department Care Team (Late st Contact Info) Description 06/30/2025 Refill [facility] MEDICINE [address] [facility] [address] Rad Galvan MD [address] [place] [address] Longstanding persistent atrial fibrillation; Seizure disorder Social History Tobacco Use Types Packs/Day Years [...] EST Office Visit [facility] MEDICINE [address] [facility] [place] [address] Rad Galvan MD [address] [place] [address] documented as of this encounter Visit Diagnoses Diagnosis Longstanding persistent atrial fibrillation Seizure disorder Unspecified epilepsy without mention of intractable epilepsy documented in this encounter Additional Health Concerns Assessment Noted Time PHQ-2 Depression Total Score: 1 02/17/20 24 10:24 AM EDT documented as of this encounter Care Teams Laboratory Courier Relationship Specialty Start Date End Date Rad Galvan MD [address] [place] [address] PCP - General Family Medicine 04/15/22 documented as of this encounter
--- OUTSIDE RECORDS SUMMARY | 2025-08-07 10:32 | XMS_ITS | Encounter Summary ---
Author Organization [facility] Address [address] [place] [address] Care Team Providers Care Twenty One Dealer Name Role Phone Rad Galvan MD Primary Care Provider + Encounter Details Date Type Department Care Team (Latest Contact Info) Description 08/01/2025 Travel Social History Tobacco Use Types Packs/Day [...] Description 10/31/2025 11:00 AM EST Office Visit [facility] MEDICINE [address] [facility] [place] [address] Rad Galvan MD [address] [place] [address] documented as of this encounter Visit Diagnoses Not on filedocumented in this encounter Additional Health Concerns Assessment Noted Time PHQ-2 Depression Total Score: 1 02/17/20 24 10:24 AM EDT documented as of this encounter Care Teams Twenty One Dealer Relationship Specialty Start Date End Date Rad Galvan MD [address] [place] [address] PCP - General Family Medicine 04/15/22 documented as of this encounter
--- OUTSIDE RECORDS SUMMARY | 2025-08-07 10:32 | XMS_ITS | Encounter Summary ---
Author Organization [facility] Address [address] [place] [id number] Care Team Providers Care Food Concession Manager Name Role Phone Rad Galvan MD Primary Care Provider + Encounter Details Date Type Department Care Team (Late st Contact Info) Description 08/02/[address] [facility] CARDIOLOGY [address] [facility] [address] [place] [phone] Stormy Wade PA [address] [facility] [address] [place] [address] Social History Tobacco Use Types Packs/Day Years [...] PM EDT documented as of this encounter Progress Notes * Stormy Wade PA - 08/02/2025 8:11 AM EDT Received some records from Dr. Armstrong's office. Attempting to determine duration of her atrial fibrillation. Per their records, longstanding persistent atrial fibrillation, no further efforts to restore NSR Per her device interrogation 05/2025, she had 100% AFIB burden. I am not sure when she went into atrial fibrillation. Electronically signed by EMERITA Wills, 08/02/25, 8:13 AM EDT. documented in this encounter Plan of Treatment Upcoming Encounters Date Type Department Care Team (Late st Contact Info) Description 10/31/2025 11:00 AM EST Office Visit [facility] MEDICINE [address] [place] [address] Rad Galvan MD [address] [place] [address] documented as of this encounter Visit Diagnoses Not on filedocumented in this encounter Additional Health Concerns Assessment Noted Time PHQ-2 Depression Total Score: 1 02/17/20 24 10:24 AM EDT documented as of this encounter Care Teams Food Concession Manager Relationship Specialty Start Date End Date Rad Galvan MD [address] [place] [address] PCP - General Family Medicine 04/15/22 documented as of this encounter
--- OUTSIDE RECORDS SUMMARY | 2025-08-07 10:32 | XMS_ITS ---
Author Organization [facility] Address [address] [place] [address] Care Team Providers Care Hadoop Infrastructure Architect Name Role Phone Rad Galvan MD Primary Care Provider + [facility] Status:Enrolled (Active) Start date:04/13/2025 Enrollment date:04/13/2025 Current support & services provided:Adherence- Cholesterol, Adherence- Hypertension Linked medications:Atorvastatin Calcium (Active), Valsartan (Active) Overview Atorvastatin and valsartan filled 03/26/2025 #30 day both have refills Case Team Name Relationship Phone Danielle Da Silva LPN(Responsible Staff) Licensed Mane cody Nurse Continued Care and Services Coordination
--- OUTSIDE RECORDS SUMMARY | 2025-08-07 10:33 | XMS_ITS | Encounter Summary ---
Author Organization [facility] Address [address] [place] [address] Care Team Providers Care Dial Refinisher Name Role Phone Rad Galvan MD Primary Care Provider + Reason for Visit * Reason Onset Date Comments New Med Request 07/15/2025 Encounter Details Date Type Department Care Team (Late st Contact Info) Description 07/15/2025 Telephone [facility] [address] [place] [address] Rad Galvan MD [address] [place] [address] New Med Request Social History Tobacco Use Types Packs/Day Years [...] encounter Miscellaneous Notes * Telephone Encounter - Rose Marie Chamberlain MA - 07/21/2025 6:03 PM EDT Left detailed msg informing pt * Telephone Encounter - Rose Marie Chamberlain MA - 07/15/2025 3:40 PM EDT Pt was informed you would probably have to see her for this. She starts her pre- transplant list testing the first week of July and is very nervous. * Telephone Encounter - Bindu Diaz RegSched Rep - 07/15/2025 12:19 PM EDT Caller: Sara Edwards Relationship: Self Best call back number: [phone] What medication are you requesting: ANXIETY MEDICATION 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 How long have you been experiencing symptoms: INFORMED LAST WEEK Have you had these symptoms before: [] Yes [x] No Have you been treated for these symptoms before: [] Yes [x] No If a prescription is needed, what is your preferred pharmacy and phone number: [facility] [address] - [phone] - [phone] FX Additional notes: PATIENT WOULD LIKE A CALL BACK FROM PCP documented in this encounter Plan of Treatment Upcoming Encounters Date Type Department Care Team (Late st Contact Info) Description 10/31/2025 11:00 AM EST Office Visit [facility] [address] [place] [address] Rad Galvan MD [address] [place] [address] documented as of this encounter Visit Diagnoses Not on filedocumented in this encounter Additional Health Concerns Assessment Noted Time PHQ-2 Depression Total Score: 1 02/17/20 24 10:24 AM EDT documented as of this encounter Care Teams Dial Refinisher Relationship Specialty Start Date End Date Rad Galvan MD [address] [place] [address] PCP - General Family Medicine 04/15/22 documented as of this encounter
--- OUTSIDE RECORDS SUMMARY | 2025-08-07 10:33 | XMS_ITS | Encounter Summary ---
Author Organization [facility] Address [address] [place] [address] Care Team Providers Care Media Marketing Coordinator Name Role Phone Rad Galvan MD Primary Care Provider + Encounter Details Date Type Department Care Team (Latest Contact Info) Description 07/07/2025 Travel Social History Tobacco Use Types Packs/Day [...] Description 10/31/2025 11:00 AM EST Office Visit [facility] FAMILY MEDICINE [address] [facility] [place] [address] Rad Galvan MD [address] [facility] [address] [address] documented as of this encounter Visit Diagnoses Not on filedocumented in this encounter Additional Health Concerns Assessment Noted Time PHQ-2 Depression Total Score: 1 02/17/20 24 10:24 AM EDT documented as of this encounter Care Teams Media Marketing Coordinator Relationship Specialty Start Date End Date Rad Galvan MD [address] [place] [address] PCP - General Family Medicine 04/15/22 documented as of this encounter
--- OUTSIDE RECORDS SUMMARY | 2025-08-07 10:33 | XMS_ITS | Encounter Summary ---
Author Organization [facility] Address [address] [place] [address] Care Team Providers Care Melter Loader Name Role Phone Rad Galvan MD Primary Care Provider + Reason for Visit * Reason Onset Date Comments CALLBACK REQUEST 07/15/2025 Encounter Details Date Type Department Care Team (Late st Contact Info) Description 07/15/2025 Telephone [facility] [address] [place] [address] Rad Galvan MD [address] [place] [address] CALLBACK REQUEST Social History Tobacco Use Types Packs/Day [...] Encounter - Rose Marie Chamberlain MA - 07/18/2025 5:29 PM EDT Faxed order to [facility] since it was not covered at [facility]. Also spoke w/ Yefri at [employer], he said, disregard this phone call they have all the information they need at this time. * Telephone Encounter - Rose Marie Chamberlain MA - 07/15/2025 3:47 PM EDT Pt is also requesting an order for an automated BP cuff be sent in to [facility]. She talked to [facility] today and they told her, that is all you had to do and they would pay for it. * Telephone Encounter - Yarely Painter RegSched Rep - 07/15/2025 2:14 PM EDT Caller: CANDELARIA - Glyde Relationship: Best call back number: [phone] What is the best time to reach you: ANY Who are you requesting to speak with (clinical staff, provider, specific staff member): CLINICAL What was the call regarding: PATIENTS PROVIDER OF HER [employer] SUPPLIES IS NEEDING TO VERIFYSOME INFORMATION WITH THE OFFICE BEFORE SHIPPING OUT HER NEXT ORDER OF SUPPLIES. PLEASE CALL TO DISCUSS FURTHER documented in this encounter Plan of Treatment Upcoming Encounters Date Type Department Care Team (Late st Contact Info) Description 10/31/2025 11:00 AM EST Office Visit [facility] MED[facility] [address] [place] [place] [address] Rad Galvan MD [address] [place] [address] documented as of this encounter Visit Diagnoses Not on filedocumented in this encounter Additional Health Concerns Assessment Noted Time PHQ-2 Depression Total Score: 1 02/17/20 24 10:24 AM EDT documented as of this encounter Care Teams Melter Loader Relationship Specialty Start Date End Date Rad Glavan MD [address] [place] [address] PCP - General Family Medicine 04/15/22 documented as of this encounter
--- OUTSIDE RECORDS SUMMARY | 2025-08-07 10:33 | XMS_ITS | Encounter Summary ---
Author Organization Healthcare Address [address] [place] [address] Care Team Providers Care Pharmacist In Charge Owner Name Role Phone Andrew Lee MD Primary Care Provider [phone] Uli Salcedo Unavailable [phone] Rad Galvan MD Primary Care Provider [phone] Encounter Details Date Type Department Care Team (Late st Contact Info) Description 01/11/2025 Orders Only External Location [address] [place] [phone] Uli Salcedo PA [address] [place], [place] [id number] Social History Tobacco Use Types Packs/Day Years [...] PM EDT Appointment Cardiac Imaging [address] [place] [phone] 09/16/2025 4:00 PM EDT Office Visit [facility] [facility] [address] [facility] [address] [place] [phone] Elvin Schuler MD [address] [place] [address] documented as of this encounter Procedures Procedure Name Priority Date/Time Associated Diagnosis Comments US OUTSIDE IMAGES 01/11/2025 1:44 PM EST documented in this encounter Results * US OUTSIDE IMAGES (01/11/2025 1:44 PM EST) Anatomical Region Laterality Modality Ultrasound 01/11/2025 1:44 PM EST us Uli FELDER [facility] US PROCEDURES Final Result documented in this encounter Visit Diagnoses Not on filedocumented in this encounter Care Teams Pharmacist In Charge Owner Relationship Specialty Start Date End Date Andrew Lee MD [address] [place] [address] [address] [place] [address] PCP - General 04/06/21 04/07/25 Rad Galvan MD [address] [place] [address] PCP - General 04/08/25 Uli Salcedo PA [address] [place] [address] Referring Physician 02/03/25 documented as of this encounter
--- OUTSIDE RECORDS SUMMARY | 2025-08-07 10:33 | XMS_ITS | Encounter Summary ---
Author Organization [facility] Address [address] [place] [id number] Care Team Providers Care Wood Strip Block Floor Installer Name Role Phone Rad Galvan MD Primary Care Provider + Encounter Details Date Type Department Care Team (Late st Contact Info) Description 07/18/2025 Telephone [facility] FAM[facility] MEDICINE [address] [place] [address] Rad Galvan MD [address] [place] [address] Social History Tobacco Use Types [...] encounter Miscellaneous Notes * Telephone Encounter - Bindu Diaz RegSched Rep - 07/18/2025 11:06 AM EDT A user error has taken place: encounter opened in error, closed for administrative reasons. documented in this encounter Plan of Treatment Upcoming Encounters Date Type Department Care Team (Late st Contact Info) Description 10/31/2025 11:00 AM EST Office Visit [facility] [address] [place] [address] Rad Galvan MD [address] [place] [id number] documented as of this encounter Visit Diagnoses Not on filedocumented in this encounter Additional Health Concerns Assessment Noted Time PHQ-2 Depression Total Score: 1 02/17/20 24 10:24 AM EDT documented as of this encounter Care Teams Wood Strip Block Floor Installer Relationship Specialty Start Date End Date Rad Galvan MD [address] [place] [address] PCP - General Family Medicine 04/15/22 documented as of this encounter
--- OUTSIDE RECORDS SUMMARY | 2025-08-07 10:33 | XMS_ITS | Encounter Summary ---
Author Organization [facility] Address [address] [place] [address] Care Team Providers Care Print Graphic Designer Name Role Phone Uli Salcedo Unavailable [phone] Rad Galvan MD Primary Care Provider [phone] Encounter Details Date Type Department Care Team [...] PM EDT Appointment Cardiac Imaging [address] [place] [address] 09/16/2025 4:00 PM EDT Office Visit [facility] [address] [place] [address] Elvin Schuler MD [address] [place] [address] documented as of this encounter Visit Diagnoses [...] documented as of this encounter Care Teams Print Graphic Designer Relationship Specialty Start Date End Date Rad Galvan MD [address] [place] [address] PCP - General 04/08/25 Uli Salcedo PA [address] [place] [address] Referring Physician 02/03/25 documented as of this encounter
--- OUTSIDE RECORDS SUMMARY | 2025-08-07 10:33 | XMS_ITS | Encounter Summary ---
Author Organization [facility] Address [address] [place] [address] Care Team Providers Care Waterworks Supervisor Name Role Phone Rad Galvan MD Primary Care Provider + Reason for Visit * Reason Onset Date Comments PAPERWORK REQUEST 06/28/2025 PAPERWORK REQUEST - SEVERAL CALLS 06/28/2025 Encounter Details Date Type Department Care Team (Late st Contact Info) Description 06/28/2025 Telephone [facility] FAM[facility] MEDICINE [address] [place] [address] Rad Galvan MD [address] [place] [address] PAPERWORK REQUEST; PAPERWORK REQUEST - SEVERAL CALLS Social History Tobacco Use Types Packs/Day [...] Encounter - Rose Marie Chamberlain MA - 07/04/2025 5:51 PM EDT Faxed them again with a wet signature to the number provided. * Telephone Encounter - Jacqueline Christie MA - 07/04/2025 1:22 PM EDT Caller: SARAHY - [employer] Relationship: Other Best call back number: [phone] What form or medical record are you requesting: DR. COX WITH SIGNATURE. THEY REC'D COPIES UNSIGNED. THEY HAVE CALLED AND SENT FAX REGARDING Who is requesting this form or medical record from you: [employer] How would you like to receive the form or medical records (pick-up, mail, fax): FAX If fax, what is the fax number: [phone] If mail, what is the address: If pick-up, provide patient with address and location details Timeframe paperwork needed: MAREK * Telephone Encounter - Gabi Lee RegSched Rep - 06/28/2025 10:43 AM EDT Caller: ESTEVAN Relationship: Other [employer] Best call back number: [phone] OPTION 2 What form or medical record are you requesting: CLINICAL NOTES FROM [id number] Who is requesting this form or medical record from you: [employer] How would you like to receive the form or medical records (pick-up, mail, fax): If fax, what is the fax number: [phone] Timeframe paperwork needed: MAREK Additional notes: THEY [...] Description 10/31/2025 11:00 AM EST Office Visit [facility] [address] [place] [address] Rad Galvan MD [address] [place] [address] documented as of this encounter Visit Diagnoses Not on filedocumented in this encounter Additional Health Concerns Assessment Noted Time PHQ-2 Depression Total Score: 1 02/17/20 24 10:24 AM EDT documented as of this encounter Care Teams Waterworks Supervisor Relationship Specialty Start Date End Date Rad Galvan MD [address] [place] [address] PCP - General Family Medicine 04/15/22 documented as of this encounter
--- OUTSIDE RECORDS SUMMARY | 2025-08-07 10:33 | XMS_ITS | Encounter Summary ---
Author Organization [facility] Address [address] [place] [address] Care Team Providers Care Interior Mechanic Name Role Phone Rad Galvan MD Primary Care Provider + Reason for Visit * Reason Onset Date Comments PAPERWORK REQUEST 06/27/2025 Encounter Details Date Type Department Care Team (Late st Contact Info) Description 06/27/2025 Telephone [facility] [address] [place] [address] Rad Galvan MD [address] [place] [address] PAPERWORK REQUEST Social History Tobacco [...] it's ok to fax notes. Faxed via [employer]. * Telephone Encounter - Yarely Painter RegSched Rep - 06/27/2025 11:41 AM EDT Caller: BAYLEE BAECH - [employer] Relationship: Best call back number: [phone] EXTENTION 2 What form or medical record are you requesting: CLINICAL NOTES Who is requesting this form or medical record from you: [employer] How would you like to receive the form or medical records (pick-up, mail, fax): FAX If fax, what is the fax number: [phone] Timeframe paperwork needed: MAREK Additional notes: PATIENTS [...] 10/31/2025 11:00 AM EST Office Visit [facility] [address] [place] [phone] Rad Galvan MD [address] [place] [address] documented as of this encounter Visit Diagnoses Not on filedocumented in this encounter Additional Health Concerns Assessment Noted Time PHQ-2 Depression Total Score: 1 02/17/20 24 10:24 AM EDT documented as of this encounter Care Teams Interior Mechanic Relationship Specialty Start Date End Date Rad Galvan MD [address] [place] [address] PCP - General Family Medicine 04/15/22 documented as of this encounter
--- OUTSIDE RECORDS SUMMARY | 2025-08-07 10:33 | XMS_ITS | Encounter Summary ---
Author Organization [facility] Address [address] [place] [id number] Care Team Providers Care Clinic Licensed Practical Nurse Name Role Phone Rad Conroy MD Primary Care Provider + Reason for Visit * Reason Onset Date Comments FOLLOW UP ON FAX 06/21/2025 Encounter Details Date Type Department Care Team (Late st Contact Info) Description 06/21/2025 Telephone [facility] FAM[facility] MEDICINE [address] [place] [address] Rad Conroy MD [address] [place] [address] FOLLOW UP ON FAX Social [...] Rep - 06/21/2025 9:55 AM EDT Caller: [employer] Relationship: Other Best call back number: [phone] OPTION 2 Equipment requested: [employer] Prescribing [...] [facility] [address] [facility] [place] [phone] Rad Conroy MD [address] [place] [address] documented as of this encounter Visit Diagnoses Not on filedocumented in this encounter Additional Health Concerns Assessment Noted Time PHQ-2 Depression Total Score: 1 02/17/20 24 10:24 AM EDT documented as of this encounter Care Teams Clinic Licensed Practical Nurse Relationship Specialty Start Date End Date Rad Conroy MD [address] [address] PCP - General Family Medicine 04/15/22 documented as of this encounter
--- OUTSIDE RECORDS SUMMARY | 2025-08-07 10:33 | XMS_ITS | Encounter Summary ---
Author Organization [facility] Address [address] [place] [address] Care Team Providers Care Rn Primary Care Name Role Phone Rad Galvan MD Primary Care Provider + Reason for Visit * Reason Onset Date Comments PHARMACY CALLS 07/18/2025 Encounter Details Date Type Department Care Team (Late st Contact Info) Description 07/18/2025 Telephone [facility] MEDICINE [address] [place] [address] Rad Galvan MD [address] [place] [address] PHARMACY CALLS Social History Tobacco [...] - Rose Marie Chamberlain MA - 07/18/2025 2:27 PM EDT Spoke w/ pt and this was now sent over to [facility] * Telephone Encounter - Marlen Mittal RegSched Rep - 07/18/2025 2:16 PM EDT Pharmacy Name: [facility] [place] - [address] [place] [address] - [phone] Pharmacy telecommunications sales representative name: [facility] Pharmacy telecommunications sales representative phone number: [phone] What medication are you calling in regards to: BLOOD PRESSURE CUFF What question does the pharmacy have: THE PHARMACY IS UNABLE TO BILL INSURANCE FOR A BLOOD PRESSURECUFF SHE CALLER STATES THAT THE PRESCRIPTION NEEDS TO BE SENT TO A DME STORE Who is the provider that prescribed the medication: DOCTOR MARYCARMEN documented in this encounter Plan of Treatment Upcoming Encounters Date Type Department Care Team (Late st Contact Info) Description 10/31/2025 11:00 AM EST Office Visit [facility] [address] [place] [address] Rad Galvan MD [address] [place] [address] documented as of this encounter Visit Diagnoses Not on filedocumented in this encounter Additional Health Concerns Assessment Noted Time PHQ-2 Depression Total Score: 1 02/17/20 24 10:24 AM EDT documented as of this encounter Care Teams Rn Primary Care Relationship Specialty Start Date End Date Rad Galvan MD [address] [place] [address] PCP - General Family Medicine 04/15/22 documented as of this encounter
--- NOTE | 2025-08-07 10:41 | ECG_ITS ---
APPROVED REPORT Exam: Resting ECG HR:50 bpm ECG Measurements Heart Rate 50 AXES QRSd 144 QRS 229 QT 409 T 66 QTc 383 Conclusion ELECTRONIC VENTRICULAR PACEMAKER ABNORMAL RHYTHM ECG UNCONFIRMED REPORT Electronically signed by : Seth Jimenez, 08/07/2025 14:44:17
--- NOTE | 2025-08-07 10:54 | XR_ITS ---
PROCEDURE INFORMATION: Exam: XR Chest Exam date and time: 08/07/2025 11:02 AM Age: 70 years old Clinical indication: Dyspnea TECHNIQUE: Imaging protocol: Radiologic exam of the chest. Views: 1 view. Total images: 2 COMPARISON: CR XR CHEST 2V 06/23/2025 10:22 AM FINDINGS: Tubes, catheters and devices: AICD projects in satisfactory location. A right-sided pacemaker device is present, its leads in appropriate position. Lungs: Atelectatic changes right lung base. Pleural spaces: Small right pleural effusion. Heart/Mediastinum: Heart demonstrates moderate diffuse enlargement. Bones/joints: Unremarkable. IMPRESSION: 1. Moderate cardiomegaly. 2. Small right pleural effusion. 3. Atelectatic changes right lung base.
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
[2025-08-07 10:59] LABS: Hematocrit 25.4 % (37.0-47.0); Hemoglobin 9.0 g/dL (12.2-16.2); Immature Granulocytes % 0.5 %; Mean Corpuscular HGB Conc 35.4 g/dL (31.8-35.4); Mean Corpuscular Hemoglobin 36.1 pg (27.0-31.2); Mean Corpuscular Volume 102.0 fl (81-99); Nucleated Red Blood Cells % 0 %; Platelet Count 108 K/mm3 (142-424); Red Blood Count 2.49 M/mm3 (4.20-5.40); Red Cell Distribution Width-SD 54.4 fL; White Blood Count 7.9 K/mm3 (4.8-10.8)
[2025-08-07 11:03] LABS: Chloride 92 mmol/L (98-107)
[2025-08-07 11:03] LABS: Coronavirus 19, PCR Not Detected (NotDetected); Influenza A, PCR Not Detected (NotDetected); Influenza B, PCR Not Detected (NotDetected)
[2025-08-07 11:04] LABS: Albumin Level 3.8 g/dl (3.5-5.0); Potassium 4.4 mmoL/L (3.5-5.1); Sodium 129 mmol/L (136-145)
[2025-08-07 11:06] LABS: Alanine Aminotransferase 22 U/L (12-78); Albumin/Globulin Ratio 1.2 (1.1-1.8); Alkaline Phosphatase 177 U/L (38-126); Anion Gap 15.4 mEq/L (5-15); Aspartate Amino Transferase 36 U/L (14-36); Bilirubin,Total 1.9 mg/dl (0.2-1.3); Blood Urea Nitrogen 59 mg/dl (7-17); Carbon Dioxide 26 mmol/L (22.0-30.0); Creatinine Clearance Estimated 45 mL/min (50-200); Creatinine,Serum 1.80 mg/dl (0.52-1.04); Estimated Glomerular Filt Rate 28 ml/min (>60); GFR (African American) 34 ML/MIN (>60); Globulin 3.1 g/dL (1.3-3.2); Total Protein,Serum 6.9 g/dl (6.3-8.2)
[2025-08-07 11:07] LABS: Calcium 8.9 mg/dl (8.4-10.2); Glucose 110 mg/dl (74-100)
[2025-08-07 11:29] LABS: Magnesium 2.0 mg/dl (1.6-2.3); Phosphorous 3.6 mg/dl (2.5-4.5)
[2025-08-07 11:40] LABS: NT Pro Brain Natriuretic Pep. 3450 pg/mL (0-125)
[2025-08-07 11:43] LABS: Troponin I 0.02 ng/ml (0.00-0.034)
[2025-08-07 12:02] LABS: Thyroid Stimulating Hormone 0.84 uIU/mL (0.465-4.68)
--- NOTE | 2025-08-07 12:55 | PC.NURSE ---
patient consented to rectal exam. patient placed on her left side, pants and undergarments removed. Dr Jimenez performed rectal exam with this RN present at the bedside. Stool occult sample collected, labeled and sent to the lab. patient laid back on her back and call light placed in reach. no needs from this patient at this time.
[2025-08-07 12:59] LABS: Occult Blood,Stool Positive (Negative)
--- NOTE | 2025-08-07 13:07 | PC.NURSE ---
I notified HS of the need for a bed to admit to the hospitalist.
--- NOTE | 2025-08-07 13:12 | PC.NURSE ---
food tray has been delivered
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
--- NOTE | 2025-08-07 13:22 | PC.NURSE ---
medr called, report given to Hilda GONZALES at [phone]
[2025-08-07] MEDS: PANTOPRAZOLE SODIUM 80 MG in 0.9 % SODIUM CHLORIDE 100 ML 100 MG IV (13:34)
--- NOTE | 2025-08-07 13:42 | PC.NURSE ---
patient stated she felt shaky, her personal glucometer read 75. med surge staff was getting her into a wheelchair to take her to her room. this RN called her receiving RN, Hilda, to make her aware so she could check it upon patients arrival to the 2nd floor.
--- NOTE | 2025-08-07 13:42 | PC.NURSE ---
arrived by w/c from ED
[2025-08-07 13:46] LABS: Iron 47 ug/dL (37-170)
[2025-08-07 13:56] LABS: Total Iron Binding Capacity 317 ug/dL (265-497)
[2025-08-07 14:09] LABS: POC Glucose,Bedside 93 gm/dL (70-110)
[2025-08-07 14:22] LABS: Ferritin 44.1 ng/ml (11.1-264)
[2025-08-07 14:31] LABS: Troponin I 0.02 ng/ml (0.00-0.034)
--- NOTE | 2025-08-07 14:31 | HMH.PHAINT1 ---
Pharmacy Intervention Comments: MEDICATION RECONCILIATION COMPLETE USING EXTERNAL PHARMACY FILL HISTORY, RECENT CARDIOLOGY OFFICE VISIT NOTE, RECENT HOSPITAL DISCHARGE NOTE, AND PDMP REPORT.
--- NOTE | 2025-08-07 17:14 | CT_ITS ---
PROCEDURE INFORMATION: Exam: CT Abdomen And Pelvis Without And With Contrast Exam date and time: 08/07/2025 6:15 PM Age: 70 years old Clinical indication: Abdominal pain; Generalized; Additional info: Lower abdominal pain TECHNIQUE: Imaging protocol: Computed tomography of the abdomen and pelvis without and with contrast. Total images: 681 Radiation optimization: All CT scans at this facility use at least one of these dose optimization techniques: automated exposure control; mA and/or kV adjustment per patient size (includes targeted exams where dose is matched to clinical indication); or iterative reconstruction. Contrast material: ISOVUE; Contrast volume: 50 ml; Contrast route: IV; COMPARISON: CT ANGIO ABDOMEN PELVIS 01/15/2025 3:08 AM FINDINGS: Tubes, catheters and devices: Cardiac pacer leads. Lungs: Incompletely included 5 cm dense airspace consolidation in the right lower lobe. Additional mild bibasilar atelectasis. Pleural spaces: Trace bilateral pleural effusions. Heart: Mild cardiomegaly. Coronary arteries: Severe coronary artery calcifications. Diaphragm: Small hiatal hernia. Liver: Mild hepatomegaly at 19.2 cm. Mildly lobulated liver contour. No discrete mass. Gallbladder and biliary ducts: Status post cholecystectomy. No biliary ductal dilatation. Pancreas: Mild pancreatic atrophy. No discrete mass or acute pancreatitis. Spleen: Calcified splenic granuloma. No splenomegaly. Accessory splenules. Adrenal glands: Normal. No mass. Kidneys and ureters: No hydronephrosis, nephrolithiasis, or discrete renal mass. Subcentimeter left renal cortical hyperdensity, too small to characterize but statistically a hemorrhagic cyst. Mild bilateral perinephric edema. No ureteral stones. Stomach and bowel: Collapsed stomach. Small duodenal diverticulum. No ileus or bowel obstruction. Limited bowel wall assessment. Grossly unremarkable small bowel. Mild colonic stool burden. No acute colonic inflammatory process. Unremarkable rectum. Appendix: The appendix is not discretely visualized. No secondary signs for appendicitis. Intraperitoneal space: Small quantity ascites. No free intraperitoneal air. Mild mesenteric edema. Vasculature: Moderate atherosclerotic vascular disease. Nonaneurysmal abdominal aorta. Numerous pelvic phleboliths. Lymph nodes: Densely calcified right hilar and peribronchial lymph nodes compatible with remote granulomatous disease. Urinary bladder: Unremarkable as visualized. Reproductive: Physiologic uterus and ovaries. No adnexal mass. Bones/joints: Osteopenia. Mild degenerative changes throughout the thoracolumbar spine. Mild superior endplate depression T12 vertebral body, likely nonacute. Mild degenerative changes bilateral hips and SI joints. Soft tissues: Body wall edema/anasarca. Soft tissue emphysema in the left abdominal wall, most likely sequela of recent subcutaneous injection. Calcified gluteal injection granuloma. Notes: Limited by attenuation artifact from large body habitus and arm positioning. IMPRESSION: 1. Incompletely included dense 5 cm airspace consolidation in the right lower lobe. Leading differential of pneumonia and neoplasm. 2. Mild cardiomegaly. 3. Trace bilateral pleural effusions. 4. Mild hepatomegaly with lobulated contour concerning for cirrhosis. 5. Small quantity ascites. 6. Anasarca/3rd spacing with mesenteric and body wall edema. 7. Mild bilateral perinephric edema. No obstructive uropathy. 8. Multiple additional chronic and incidental findings. COMMENTS: Consistent with the [employer]'s Incidental Findings Committee white paper (J Am Wilfredo Radiol 2018): Any incidental renal lesion less than 1 cm or classified as too small to characterize, or any incidental cystic renal lesion characterized as simple-appearing, is likely benign. No follow-up imaging is recommended for these lesions per consensus recommendations based on imaging criteria.
[2025-08-07 17:38] LABS: Troponin I 0.02 ng/ml (0.00-0.034)
--- NOTE | 2025-08-07 17:40 | HMH.ITSTN ---
GFR completion/results were overrode for the use of contrast media by the Physician on a risk vs. benefit situation with this patient.
[2025-08-07 17:43] LABS: Procalcitonin 0.273 ng/mL (0.0-2.0)
[2025-08-07] MEDS: SUCRALFATE 1GM TABLET 1 GM PO ×2 (17:46→20:32)
[2025-08-07 17:52] LABS: C-Reactive Protein 118.0 mg/L (0-4)
[2025-08-07] MEDS: TRAMADOL 50MG TABLET 50 MG PO (18:03)
[2025-08-07 18:11] LABS: POC Glucose,Bedside 135 gm/dL (70-110)
--- NOTE | 2025-08-07 18:11 | PC.NURSE ---
PT TO CT NOW. COMPLAINING OF ABD PAIN MIDLINE. UA AND FULL RESP PANEL SENT. GIVEN PAIN MEDICATION PER JAN. NO NEEDS AT THIS TIME.
[2025-08-07 18:17] LABS: Hematocrit 29.1 % (37.0-47.0)
[2025-08-07] MEDS: SODIUM CHLORIDE 0.9% 10ML SYR (RAD ONLY) 10 ML IV (18:20)
[2025-08-07] MEDS: IOPAMIDOL-370 (76%);100ML BOTTLE 75 ML IV (18:20)
[2025-08-07 18:25] LABS: Adenovirus,PCR Not Detected (NotDetected); Chlamydophila Pneumoniae, PCR Not Detected (NotDetected); Coronavirus 19, PCR Not Detected (NotDetected); Coronovirus HKU1,PCR Not Detected (NotDetected); Influenza A, PCR Not Detected (NotDetected); Influenza AH1, 2009 Not Detected (NotDetected); Influenza AH1, PCR Not Detected (NotDetected); Influenza AH3,PCR Not Detected (NotDetected); Influenza B, PCR Not Detected (NotDetected); Mycoplasma Pneumoniae, PCR Not Detected (NotDetected); Parainfluenza 1, PCR Not Detected (NotDetected); Parainfluenza 2, PCR Not Detected (NotDetected); Parainfluenza 3, PCR Not Detected (NotDetected); Parainfluenza 4, PCR Not Detected (NotDetected)
[2025-08-07] MEDS: CEFTRIAXONE 1 GM 2 GM in 0.9 % SODIUM CHLORIDE 50 ML IV (18:40)
[2025-08-07] MEDS: ACETAMINOPHEN 325MG TAB 650 MG PO (18:43)
[2025-08-07 20:17] LABS: Vitamin B12 721 pg/mL (239-931)
[2025-08-07 20:25] LABS: POC Glucose,Bedside 150 gm/dL (70-110)
[2025-08-07] MEDS: ATORVASTATIN 40MG TABLET 40 MG PO (20:31)
[2025-08-07] MEDS: GABAPENTIN 600MG TABLET 600 MG PO (20:32)
[2025-08-07] MEDS: ROPINIROLE 1MG TABLET 2 MG PO (20:32)
[2025-08-07] MEDS: POTASSIUM CHLORIDE 20MEQ TAB 20 MEQ PO (20:32)
[2025-08-07] MEDS: PHENOBARBITAL 32.4 MG 97.2 MG PO (20:32)
[2025-08-07] MEDS: PANTOPRAZOLE 40MG VIAL 40 MG IV (20:38)
--- NOTE | 2025-08-07 21:23 | CT_ITS ---
PROCEDURE INFORMATION: Exam: CT Chest Without Contrast; Diagnostic Exam date and time: 08/07/2025 9:50 PM Age: 70 years old Clinical indication: Other: F/u consolidation on CT abdomen TECHNIQUE: Imaging protocol: Diagnostic computed tomography of the chest without contrast. Total images: 433 Radiation optimization: All CT scans at this facility use at least one of these dose optimization techniques: automated exposure control; mA and/or kV adjustment per patient size (includes targeted exams where dose is matched to clinical indication); or iterative reconstruction. COMPARISON: CT ANGIO CHEST PE PROTOCOL 05/26/2025 10:01 PM FINDINGS: Tubes, catheters and devices: Bilateral subclavian cardiac pacemakers. Thyroid: Heterogeneous multinodular thyroid gland. Concerning 2 cm posterior upper pole left thyroid lobe nodule with extrathyroidal extension. Lungs: The trachea and main bronchi are patent. Approximate 5 cm dense airspace consolidation in the superior segment of the right lower lobe with associated air bronchograms. Leading differential of rounded pneumonia versus neoplasm. Given interval change from May 26, 2025, suspect rounded pneumonia. Scattered bibasilar subsegmental atelectasis. There are few pulmonary micro nodules, not exceeding 4 mm. Pleural spaces: Trace bilateral pleural effusions. Heart: Mild cardiomegaly with 4 chamber dilatation. No pericardial effusion. Lymph nodes: Right hilar and right paratracheal lymphadenopathy. Densely calcified subcarinal and hilar lymph nodes. Vasculature: Mildly atherosclerotic thoracic aorta without aneurysm. Intraperitoneal space: Upper abdominal findings described previously. Bones/joints: Osteopenia. Increased thoracic kyphosis. Moderate degenerative changes of the thoracic spine including ankylosis/dish. Soft tissues: Unremarkable. IMPRESSION: 1. 5 cm rounded dense airspace consolidation in the superior segment right lower lobe. Associated air bronchograms. Favor rounded pneumonia over neoplasm. This is a interval change from chest CT May 26, 2025. 2. Mild right hilar and right paratracheal lymphadenopathy, likely reactive/postinflammatory. 3. Recommend follow-up chest CT following appropriate course of treatment to confirm resolution of above findings. 4. Trace bilateral pleural effusions 5. Bibasilar atelectasis 6. Cardiomegaly 7. Remote calcified granulomatous disease. 8. Multinodular thyroid gland including concerning 2 cm extrathyroidal nodule on the left. Follow-up nonemergent ultrasound. COMMENTS: Consistent with the [employer]'s Incidental Findings Committee white paper (J Am Wilfredo Radiol 2015): In patients aged 35 years and older with an incidental thyroid nodule equal to or greater than 1.[address], MRI or extrathyroidal US, further evaluation with dedicated thyroid US is recommended for patients with normal life expectancy and without comorbidities. For smaller nodules without suspicious features, no further evaluation or follow up is recommended.
[2025-08-07 21:43] LABS: Microscopic, Urine URINE MICROSCOPIC (MICROSCOPIC)
[2025-08-07 21:49] LABS: Bilirubin,Urine Negative (Negative); Color,Urine YELLOW (Yellow); Glucose,Urine (UA) TRACE (Negative); Ketones,Urine Negative (Negative); Leukocyte Esterase,Urine Negative (Negative); PH,Urine 6.0 (5.0-8.5); Protein,Urine Negative (Negative); Specific Gravity, Urine 1.010 (1.005-1.030); Urobilinogen,Urine 0.2 EU/dl (0.2)
[2025-08-07 22:00] LABS: Bacteria,Urine Trace /lpf; WBC,Urine Occasional #/hpf (0-3)
[2025-08-07] MEDS: DOXYCYCLINE HYCL 100 MG TABLET PO (22:05)
[2025-08-07 22:21] LABS: Hemoglobin 10.1 g/dL (12.2-16.2)
[2025-08-08] VITALS (17 sets, daily range): BP systolic 90–134; BP diastolic 47–70; PULSE 70–86; RESP 12–24; TEMP 36.8–38.2; O2SAT 88–99; BMI 40.3
[2025-08-08] MEDS: ACETAMINOPHEN 325MG TAB 650 MG PO ×2 (00:15→21:37)
--- NOTE | 2025-08-08 04:24 | PC.NURSE ---
Pt AOx4. Fever of 100.7 relieved with tylenol. Now 98.7. VSS. No acute changes so far in the shift. Pt currently resting in bed with eyes closed. Respirations even and unlabored. Bed is low, locked, and call light is in reach.
[2025-08-08] MEDS: SUCRALFATE 1GM TABLET 1 GM PO (05:29)
[2025-08-08 05:43] LABS: POC Glucose,Bedside 137 gm/dL (70-110)
[2025-08-08 07:30] LABS: Hematocrit 26.7 % (37.0-47.0); Hemoglobin 9.1 g/dL (12.2-16.2); Immature Granulocytes % 0.5 %; Mean Corpuscular HGB Conc 34.1 g/dL (31.8-35.4); Mean Corpuscular Hemoglobin 35.5 pg (27.0-31.2); Mean Corpuscular Volume 104.3 fl (81-99); Nucleated Red Blood Cells % 0 %; Platelet Count 108 K/mm3 (142-424); Red Blood Count 2.56 M/mm3 (4.20-5.40); Red Cell Distribution Width-SD 56.9 fL; White Blood Count 9.5 K/mm3 (4.8-10.8)
[2025-08-08 07:37] LABS: Alanine Aminotransferase 22 U/L (12-78); Albumin Level 3.9 g/dl (3.5-5.0); Albumin/Globulin Ratio 1.2 (1.1-1.8); Alkaline Phosphatase 185 U/L (38-126); Anion Gap 12.7 mEq/L (5-15); Aspartate Amino Transferase 30 U/L (14-36); Bilirubin,Total 2.2 mg/dl (0.2-1.3); Blood Urea Nitrogen 58 mg/dl (7-17); Calcium 8.8 mg/dl (8.4-10.2); Carbon Dioxide 27 mmol/L (22.0-30.0); Chloride 94 mmol/L (98-107); Creatinine Clearance Estimated 39 mL/min (50-200); Creatinine,Serum 2.10 mg/dl (0.52-1.04); Estimated Glomerular Filt Rate 23 ml/min (>60); GFR (African American) 28 ML/MIN (>60); Globulin 3.2 g/dL (1.3-3.2); Glucose 152 mg/dl (74-100); Magnesium 2.0 mg/dl (1.6-2.3); Potassium 4.7 mmoL/L (3.5-5.1); Sodium 129 mmol/L (136-145); Total Protein,Serum 7.1 g/dl (6.3-8.2)
[2025-08-08] MEDS: HYDROCODONE/APAP 5/325 MG TABLET 2 TAB PO (09:20)
[2025-08-08] MEDS: PANTOPRAZOLE 40MG VIAL 40 MG IV (09:20)
[2025-08-08] MEDS: CEFEPIME HCL 2 GM in 0.9 % SODIUM CHLORIDE 100 ML IV ×2 (09:20→21:37)
[2025-08-08] MEDS: DOXYCYCLINE HYCL 100 MG TABLET PO ×2 (09:21→21:38)
[2025-08-08] MEDS: POTASSIUM CHLORIDE 20MEQ TAB 20 MEQ PO ×2 (09:21→21:38)
[2025-08-08] MEDS: BUMETANIDE 1MG/4ML VIAL 2 MG IV (09:30)
[2025-08-08] MEDS: DIGOXIN 0.125MG TABLET 125 MCG PO (09:30)
[2025-08-08 09:31] LABS: C-Reactive Protein 146.2 mg/L (0-4)
[2025-08-08] MEDS: SPIRONOLACTONE 25MG TABLET 25 MG PO (09:31)
[2025-08-08] MEDS: GABAPENTIN 600MG TABLET 600 MG PO ×2 (09:31→21:39)
[2025-08-08 09:55] LABS: Folate > 20.00 ng/mL
[2025-08-08] MEDS: ONDANSETRON 4MG/2ML VIAL 4 MG IV ×2 (10:00→22:21)
--- NOTE | 2025-08-08 11:32 | HMH.OTEV ---
OT Evaluation Rehab OT IP Evaluation Start: 08/08/25 10:45 Freq: ONCE Status: Active Protocol: Document 08/08/25 11:24 KRISTEN (Rec: 08/08/25 11:32 KRISTEN [id number]) Rehab OT IP Assessment Subjective History Per HPI narrative: Patient is a 70-year-old female with a history of heart failure with reduced ejection fraction with a pacemaker defibrillator in who presents today with generalized malaise. Also states has been having some mild bodyaches but is primarily just severely fatigued. No fevers or chills. Patient denies any other focal symptoms. States this a very consistent with symptoms she has had in the past associated with her heart failure. States that she has had an ejection fraction as low as 30% she is followed by Dr. Griffin with [facility] advanced heart failure specialist and is currently being worked up and evaluated for a possible heart transplant. States that she may be 7 pounds up from her dry weight but no significant respiratory distress lower extremity edema is near baseline. She states that she feels this way sometimes and also that she is chronically hypotensive. Subjective I just feel weak a little. Pt was supine in bed when therapy entered room. Pt orient x3. Sister present for full eval. Pt reported they live alone in SS home with no steps. Pt reported they are ind in ADLs and IADLs and still drive. Pt reports they use a walker for FM. Pt reported they have family that can come assist if needed. Pt reported they needed to use bathroom. Pt went from supine to EOB with Min A x1. Pt tolerated static sitting balance at EOB with IND. Pt then completed STS with walker ind. Pt then completed FM task with walker Ind of aprox 10 ft. Pt then sat on commode and was ind in toileting and toilet hygiene. Pt then completed STS with walker and Ind and completed FM task of 5 ft from commode to sink and demo good static standing balance with hand washing task and good dynamic standing balance with reaching for towels. Pt ind with walker when needed for balance with hand washing task. Pt then completed FM task of 15 ft from bathroom to window then to bed with Walker Ind . Pt then sat on EOB and went to supine position ind. Pt did report she had needed 2 nurses previously to help get out of bed. Pt left in bed with call light and all other needs within reach as nursing informed pt they would be going for scope soon. Sister also present as therapy exited room and reported they live close to pt. Objective Patient Orientation Person,Place,Name Right Upper WFL Extremity Gross ROM Left Upper Extremity WFL Gross ROM Bed Mobility bed mobility-scooting,bed mobility - supine/sit Assist Level Minimal x 1 (25% assist) Transfer Training Sit/Stand Transfer Assist Level Independent Chair Transfer Independent Ability Chair Transfer Sit to/from Ambulatory Technique Chair Transfer Rolling Walker Assistive Devices Performing Toilet Independent Hygiene Ability Overall Commode/ Independent Toilet Transfer Ability Commode/Toilet Sit to/from Ambulatory Transfer Technique Commode/Toilet Grab Bars Transfer Assistive Devices Decrease in No Endurance Rehab OT IP prob,goals,plan Problems Date of Evaluation: 08/08/25 Rehab Potential Rehab Potential Innapropriate for Skilled Therapy Discharge Plan OT Discharge Plan At this time, pt is at baseline and would not benefit from skilled acute OT services and interventions while admitted here at [facility]. Once medically stable, pt can DC home with OT services to further address any functional limitations and improve QOL and optimal occupational performance. Eval Complexity Eval Charge Codes 56743 - Moderate Complexity PHYSICIAN CERTIFICATION: I certify the specified therapy services for Sara Edwards are required, authorized, and reviewed every 30 days.
[2025-08-08] MEDS: SODIUM CHLORIDE 3% 15ML NEB 3 ML IH (11:49)
--- NOTE | 2025-08-08 12:20 | PC.NURSE ---
nurse notified of temperature
[2025-08-08] MEDS: LACTATED RINGERS 1000ML 1,000 ML 50 ML IV (12:31)
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
--- NOTE | 2025-08-08 13:25 | HMH.PROCNOTE ---
[facility] Procedure Note Date: 08/08/25 Time: 13:36 Procedure Note:: Upper Endoscopy Procedure Report: Esophagogastroduodenoscopy with cold biopsies and TTS balloon dilation Endoscopost: Reese Munoz II, MD Referring Physician: Rad Galvan MD Date of Procedure: August 08, 2025 Equipment: Olympus GIF-1100 standard upper endoscope Sedation: MAC sedation Indications: Mrs. Edwards is a 70-year-old female with acute on chronic anemia and Hemoccult positive stool who is here for inpatient EGD. The patient's hemoglobin and hematocrit on admission were 9.0 and 25.4. She did have an increased MCV of 102.0. The patient's iron studies showed iron 47, TIBC 317, ferritin 44.1 and iron saturation of 14.8%. The patient did have a slightly elevated total bilirubin of 2.2. Her alkaline phosphatase was slightly elevated at 185 with normal AST 30 and ALT 22. Her C-reactive protein was 146.2. Her vitamin B12 level was 721 and folate greater than 20. She did have CT imaging of the chest and abdomen that did show a small hiatal hernia. There was mild pancreatic atrophy and the patient has had prior cholecystectomy. The stomach was collapsed and there was a small duodenal diverticulum. The liver showed mild hepatomegaly and lobulated contour of the liver suggestive of cirrhosis. The patient does report epigastric abdominal pain, bloating, gassiness and belching. She does have some early satiety and reflux. She also does report some dysphagia. The patient does have chronic constipation. Procedure: Prior to the procedure, a history and physical exam was performed, and patient's medications and allergies were reviewed. The risks, benefits and alternatives of the sedation and procedure were discussed with the patient. All questions were answered and informed consent was obtained. The patient was brought to the procedure room. Patient identification and proposed procedure were verified by the physician and the nurse. The patient was placed in a left lateral decubitus position and the scope was passed under direct vision. Throughout the procedure, the patient's blood pressure, pulse, and oxygen saturations were monitored continuously. The upper GI endoscopy was accomplished without difficulty. The patient tolerated the procedure well. Findings: The scope was passed directly into the upper esophagus and advanced to the third portion of the duodenum. A cold biopsy was taken from the second portion of the duodenum for the disaccharidase assay. The remaining post bulbar duodenum, ampulla and duodenal bulb were normal with normal mucosa and conniventes. The scope was withdrawn through a normal duodenal bulb and pylorus into the stomach. There was some bile reflux with very mild antral gastropathy. There was moderate portal hypertensive gastropathy of the body and fundus with reticular mosaic and slightly nodular pattern of mucosa. There was no evidence of GAVE. Upon retroflexion there were no gastric varices. A cold biopsy was obtained from the lesser curvature. There was a very small sliding hiatal hernia. The scope was then withdrawn into the esophagus. There was a single tongue of salmon-colored mucosa distally that was biopsied to rule out short segment Ray's. There were no rings, strictures or reflux esophagitis. There were no esophageal varices. There were tertiary contractions and evidence of moderate esophageal dysmotility. The entire esophagus was dilated to 60 [place]/20 mm with a TTS hydrostatic balloon. The remainder of the esophageal mucosa was normal. Impression: 1. Nonerosive GERD with moderate esophageal dysmotility and very small sliding 1 to 2 cm hiatal hernia 2. Possible short segment Ray's esophagus 3. Moderate portal hypertensive gastropathy Plan: I do feel that the portal hypertensive gastropathy may be the etiology for her Hemoccult positive stool. I would still consider outpatient colonoscopy. The patient also has quite a bit of dyspepsia, bloating and functional abdominal pain. We will discuss treatment options. I will follow-up the biopsies and disaccharidase assay.
--- NOTE | 2025-08-08 14:24 | SUR.PHASEII ---
Gave report to Francine GONZALES
--- NOTE | 2025-08-08 15:08 | CA_ITS ---
APPROVED REPORT EXAM: Limited 2D Echocardiogram with contrast Cable Operator: Aundrea Michael CRT Ht: 5 ft 1 in Wt: 213lbs BSA: 1.94 BP: 94/52 mmHg Indications: LV Function check Echo Enhancing Agent Indication: Endocardial border delineation Agent(s) / Amount(s) Used: Definity 2 cc Comments: Definity given. M-Mode Dimensions RVDd 3.22 cm (0.9-2.6) LVDd 5.28 cm (3.5-5.7) LVDs 4.69 cm (3.5-5.7) IVSd 1.15 cm (0.6-1.1) PWd 0.83 cm (0.6-1.1) EF (Teich) 24.10% FS 11.20% EDV (Teich) 134.20 mL ESV (Teich) 101.90 mL Other Information Study Quality: Technically Difficult Conclusion This is a limited TTE to evaluate LV systolic function. Limited windows are obtained. Ultrasound enhancing agent is administered. Technically difficult study. The left ventricle is normal in size. There is increased LV wall thickness. There is mild reduction in global LV systolic function. Regional wall motion cannot be conclusively evaluated due to technically difficult study. LVEF is 40-45%. Electronically signed by : Natalia Oviedo MD 08/08/2025 18:59:16
--- NOTE | 2025-08-08 15:11 | P.PN_ITS ---
Subjective *Date: 08/08/25 *Time: 16:17 Interval history: Patient was feeling weak this morning, only slight improvement from yesterday. Switch antibiotics from ceftriaxone to cefepime, patient felt better this afternoon. Walking independently. But continues to feel weak, soft pressures. EGD without active bleed. Continue Bumex diuresis, holding GDMT. N.p.o. at midnight for possible endoscopy with pulmonology for RLL pneumonia. Exam Data for Last 24 hours Vital signs and Labs for Last 24 Hours: Temp Pulse Resp BP Pulse Ox O2 Del Method 98.5 F 79 15 94/52 L 93 L Room Air 08/08/25 14:05 08/08/25 14:05 08/08/25 14:08/08/25 14:08/08/25 14:08/08/25 14:05 Laboratory Results - last 24 hr 08/07/25 17:00: Troponin I 0.02, C-Reactive Protein 118.0 H, Procalcitonin 0.273 08/07/25 17:35: Urine Color Yellow, Urine Appearance Clear, Urine pH 6.0, Ur Sp ecific [place] 1.010, Urine Protein Negative, Urine Glucose (UA) Trace, Urine Ketones Negative, Urine Blood Negative, Urine Nitrate Negative, Urine Bilirubin Negative, Urine Urobilinogen 0.2, Ur Leukocyte Esterase Negative, Urine RBC None, Urine WBC Occasional, Ur Squamous Epith Cells 3-5, Urine Bacteria Trace 08/07/25 17:45: Hgb 10.1 L D, Hct 29.1 L 08/07/25 18:04: POC Glucose 135 H 08/07/25 20:17: POC Glucose 150 H 08/07/25 20:40: Chlamy pneumoniae PCR Not detected, Adenovirus (PCR) Not detected, B. pertussis DNA (PCR) Not detected, Coronavirus OC43 (PCR) Not detected, Coronavirus HKU1 (PCR) Not detected, Coronavirus 229E (PCR) Not detected, SARS-CoV-2 (PCR) Not detected, Coronavirus NL63 (PCR) Not detected, Human Metapneumovir PCR Not detected, Influenza A (H1) PCR Not detected, Influ A (H1N1/09) PCR Not detected, Influenza A (H3) PCR Not detected, Influenza Type A (PCR) Not detected, Influenza Type B (PCR) Not detected, M. pneumoniae (PCR) Not detected, Parainfluenza 1 (PCR) Not detected, Parainfluenza 2 (PCR) Not detected, Parainfluenza 3 (PCR) Not detected, Parainfluenza 4 (PCR) Not detected, RSV (PCR) Not detected, Entero/Rhino (PCR) Not detected 08/07/25 : Vitamin B12 721 08/08/25 05:36: POC Glucose 137 H 08/08/25 07:22: WBC 9.5, RBC 2.56 L, Hgb 9.1 L, Hct 26.7 L, MCV 104.3 H, MCH 35.5 H, MCHC 34.1, RDW 15.2, Plt Count 108 L, MPV 9.5, Neut % (Auto) 80.1 H, Lymph % (Auto) 8.2 L, [place] % (Auto) 10.7 H, Eos % (Auto) 0.2, Baso % (Auto) 0.3, Neut # (Auto) 7.6, Lymph # (Auto) 0.8, [place] # (Auto) 1.0, Eos # (Auto) 0.0, Baso # (Auto) 0.0, Sodium 129 L, Potassium 4.7, Chloride 94 L, Carbon Dioxide 27, Anion Gap 12.7, BUN 58 H, Creatinine 2.10 H, Estimated Creat Clear 39, Estimated GFR 23 L, Est GFR ( Amer) 28 L, Glucose 152 H D, Calcium 8.8, Magnesium 2.0, Total Bilirubin 2.2 H, AST 30, ALT 22, Alkaline Phosphatase 185 H, C- Reactive Protein 146.2 H, Total Protein 7.1, Albumin 3.9, Globulin 3.2, Albumin/Globulin Ratio 1.2, Folate > 20.00 I & O for Last 24 hours: Intake & Output 08/05/25 08/06/25 08/07/25 08/08/25 23:59 23:59 23:59 23:59 Intake Total 150 / 390 340 / 340 Output Total 600 / 600 500 / 500 Balance -450 / -210 -160 / -160 Weight 96.207 kg 96.8 kg Constitutional Constitutional: no acute distress, obese and chronically ill appearing *Routine HEENT Exam Head: Present normocephalic Eye: Present EOMI and PERRL ENT: Present mucous membranes moist *Routine Neck Exam Neck: Present supple; Absent lymphadenopathy *Routine Respiratory Exam Respiratory: Present CTA bilaterally *Routine Cardiovascular Exam Cardiovascular: Present RRR *Routine Abdominal Exam Abdominal: Present soft and normoactive bowel sounds; Absent tenderness *Routine Extremities Exam Extremities: Present edema; Absent cyanosis or clubbing *Routine Skin Exam Skin: Present warm; Absent rash *Routine Neurological Exam Neurological: Present alert and oriented X3 Assessment and Plan *Assessment and plan (1) Occult blood in stools: Status: Acute Category: Medical Code(s): R19.5 - Other fecal abnormalities Plan Sara Edwards is a 70-year-old female with medical history significant for HFrEF 30% with grade 3 diastolic dysfunction with BiV ICD (being considered for transplant at ), CAD, A-fib, CKD stage IIIb, type 2 diabetes, seizure disorder, GERD who presents with dizziness, progressive weakness starting yesterday. Patient was recently at our facility for HFrEF exacerbation and early June, was discharged in stable condition. States that she was doing well, but has waxed and waned and feeling well. Has followed up with cardiology, being considered for heart transplant at due to refractory HFrEF. She states yesterday she started becoming more weak, dizzy, with headaches and chills. No known sick contacts. States she has chronic shortness of breath does not any worse, denies chest pain, but does endorse abdominal pain especially suprapubic. States she has been peeing much less, but is having normal bowel movements. Patient also does note that she has been having darker stools over the past few days. Workup in the ED significant for hemoglobin 9.0 (11.3 in in early June), BNP 3450, sodium 129, and positive FOBT. Given these findings ED provider discussed case with me and decided to admit patient for GI bleed, and further evaluation management of other symptoms. #Weakness, dizziness #Suspected hospital-acquired pneumonia ? Presented with weakness, dizziness, and in my initial evaluation he was stating she was feeling cold, and shivering in bed. ? Obtained CT chest 08/07/2025 which showed 5 cm right lower lobe pneumonia. Patient was hospitalized 4 weeks ago. Not producing sputum at this time. ? WBC stable at 9.5, CRP bumped to 146 and patient is febrile today 100.7 Fahrenheit. BP also soft with systolics in the 90s. ? UA, CT abdomen/pelvis did not show acute infectious findings. ? Started IV cefepime 2 g every 12 hours, doxycycline 100 mg twice daily. Discontinued ceftriaxone today. ? Speech therapy consulted, pending recommendations. Patient thinks she may be aspirating at times. ? Patient states she is feeling better this afternoon, blood pressures continue to be soft however. Systolics 90. No signs of sepsis at this time. ? Normal respiratory panel, TSH, B12, folate, iron panel. ? Follow-up blood cultures. ? Pulmonology consulted given size of pneumonia, high risk comorbidities and risk of decompensation, patient not producing sputum. N.p.o. at midnight in case bronchoscopy is planned in the morning. #GI bleed #Macrocytic anemia ? Reported dark stools over the past few days prior to admission. On Xarelto for A-fib. Positive FOBT. ? Initial hemoglobin 9.0, hemoglobin 9.1 today. MCV 102. ? GI consulted, s/p EGD 08/08/2025 without active signs of bleeding. Revealed nonerosive GERD with moderate esophageal dysmotility and very small sliding 1 to 2 cm hiatal hernia, possible short segment Ray's esophagus, moderate portal hypertensive gastropathy. ? GI feels portal hypertensive gastropathy may be reason for positive FOBT. Recommended outpatient colonoscopy. ? Transition from IV Protonix to p.o. Protonix 40 mg. Discontinue Carafate. ? Iron panel, B12, folate normal. #Acute on chronic HFrEF 30% #Grade 3 diastolic dysfunction #BiV ICD #Hypertension #CAD #Possible early cardiogenic shock #CKD stage IIIb ? Patient does seem slightly volume overloaded, BNP 3450. Given advanced, progressive heart failure patient is being considered for heart transplant at . However, unclear if they are aware of cirrhosis diagnosis. ? As of this morning, not making much urine at this time in spite of diuresis. Concern for early cardiogenic shock with LVEF 30%, soft pressures. Cardiology following, will reach out to for CardioMEMS reading but elevated at this time. Advised continuing Bumex and holding GDMT at this time. ? Resumed IV Bumex 2 mg twice daily. Decreased to 2 mg daily tomorrow per cardiology recommendations. ? Holding valsartan, Imdur, Farxiga, metoprolol, spironolactone pending improvement in blood pressures and concern of early cardiogenic shock. ? If urine output, blood pressures do not improve may need transfer to where CardioMEMS was placed and/or starting inotropic support. ? Creatinine bumped from 1.8-2.1 today, held diuretics yesterday. Follow-up response with diuretics. #Decompensated cirrhosis ? CT abdomen/pelvis reveals cirrhotic features, ascites, anasarca. Likely from fatty liver disease. Denies much alcohol use. ? Follow-up morning PT/INR to calculate MELD NA. ? Continue Bumex diuresis, holding spironolactone due to soft pressures at this time. #A-fib ? Currently rate controlled. Continue home digoxin 125 mcg. Hold home Xarelto due to GI bleed. Consider restarting tomorrow after discussing with cardiology if hemoglobin continues to be stable. #Multinodal thyroid gland #Extrathyroid nodule 2 cm left ? Noted on CT chest. Will need further evaluation in outpatient basis. TFTs normal. #Type 2 diabetes ? Hemoglobin A1c 7.0% in June. ? [facility] glucose checks. ? Continue home long-acting insulin once appropriate. Blood sugars stable. #Seizure disorder ? Continue home phenobarbital. #GERD ? Continue PPI. #Obesity ? Complicates all aspects of care. Full code DVT prophylaxis: SCDs
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
[2025-08-08] MEDS: DEFINITY US ECHO CONTRAST 2ML INJ 2 MG IV (16:12)
[2025-08-08 16:51] LABS: POC Glucose,Bedside 154 gm/dL (70-110)
[2025-08-08] MEDS: ATORVASTATIN 40MG TABLET 40 MG PO (21:38)
[2025-08-08] MEDS: PHENOBARBITAL 32.4 MG 97.2 MG PO (21:38)
[2025-08-08] MEDS: ROPINIROLE 1MG TABLET 2 MG PO (21:39)
[2025-08-08] MEDS: humaLOG 100 UNITS/ML 10ML VIAL (SSI) SUBCUT (21:44)
[2025-08-08] MEDS: PANTOPRAZOLE 40MG TABLET 40 MG PO (21:46)
[2025-08-09] VITALS (18 sets, daily range): BP systolic 90–141; BP diastolic 43–73; PULSE 67–98; RESP 12–20; TEMP 36.4–38.1; O2SAT 91–97; BMI 39.7
[2025-08-09 05:40] LABS: Hematocrit 26.4 % (37.0-47.0); Hemoglobin 8.9 g/dL (12.2-16.2); Immature Granulocytes % 0.5 %; Mean Corpuscular HGB Conc 33.7 g/dL (31.8-35.4); Mean Corpuscular Hemoglobin 35.5 pg (27.0-31.2); Mean Corpuscular Volume 105.2 fl (81-99); Nucleated Red Blood Cells % 0 %; Platelet Count 105 K/mm3 (142-424); Red Blood Count 2.51 M/mm3 (4.20-5.40); Red Cell Distribution Width-SD 58.3 fL; White Blood Count 8.2 K/mm3 (4.8-10.8)
[2025-08-09 05:47] LABS: INR 1.27 (0.9-1.1); Prothrombin Time 13.9 seconds (10.1-12.5)
[2025-08-09 05:55] LABS: Alanine Aminotransferase 22 U/L (12-78); Albumin Level 3.7 g/dl (3.5-5.0); Albumin/Globulin Ratio 1.1 (1.1-1.8); Alkaline Phosphatase 181 U/L (38-126); Anion Gap 11.5 mEq/L (5-15); Aspartate Amino Transferase 32 U/L (14-36); Bilirubin,Total 2.8 mg/dl (0.2-1.3); Blood Urea Nitrogen 63 mg/dl (7-17); Calcium 8.7 mg/dl (8.4-10.2); Carbon Dioxide 27 mmol/L (22.0-30.0); Chloride 95 mmol/L (98-107); Creatinine Clearance Estimated 39 mL/min (50-200); Creatinine,Serum 2.10 mg/dl (0.52-1.04); Estimated Glomerular Filt Rate 23 ml/min (>60); GFR (African American) 28 ML/MIN (>60); Globulin 3.4 g/dL (1.3-3.2); Glucose 142 mg/dl (74-100); Magnesium 2.1 mg/dl (1.6-2.3); Potassium 4.5 mmoL/L (3.5-5.1); Sodium 129 mmol/L (136-145); Total Protein,Serum 7.1 g/dl (6.3-8.2)
[2025-08-09 05:59] LABS: POC Glucose,Bedside 148 gm/dL (70-110)
--- NOTE | 2025-08-09 06:28 | PC.NURSE ---
[id number] at 2100 PT was vomiting, gave Pt Zofram IV, Pt temp had came down to 99.7. Pt was resting with her eyes shut when i left the room. Randi Arce NP came to see PT she was resting. Call light was with in reach. OPAL GRAVES RN
--- NOTE | 2025-08-09 06:30 | PC.NURSE ---
[id number] at 0059 Pts B/p was with a map of 62. Notified Randi Arce NP, Wanted to monitor for Now. OPAL GRAVES RN
[2025-08-09 07:23] LABS: C-Reactive Protein 225.3 mg/L (0-4)
[2025-08-09 08:13] LABS: Immunoglobulin A, Qn 367 mg/dL (87-352); Immunoglobulin G, Qn 1254 mg/dL (586-1602); Immunoglobulin M, Qn 74 mg/dL (26-217)
[2025-08-09] MEDS: CEFEPIME HCL 2 GM in 0.9 % SODIUM CHLORIDE 100 ML IV ×2 (08:15→21:14)
[2025-08-09] MEDS: BUMETANIDE 1MG/4ML VIAL 2 MG IV (08:15)
[2025-08-09] MEDS: GABAPENTIN 600MG TABLET 600 MG PO ×2 (08:16→21:11)
[2025-08-09] MEDS: POTASSIUM CHLORIDE 20MEQ TAB 20 MEQ PO ×2 (08:17→21:12)
[2025-08-09] MEDS: ACETAMINOPHEN 325MG TAB 650 MG PO (08:17)
[2025-08-09] MEDS: DIGOXIN 0.125MG TABLET 125 MCG PO (08:20)
[2025-08-09] MEDS: DOXYCYCLINE HYCL 100 MG TABLET PO ×2 (08:31→21:12)
--- NOTE | 2025-08-09 09:45 | HMH.PTEV ---
Physical Therapy Evaluation Rehab PT IP Evaluation Start: 08/08/25 10:44 Freq: ONCE Status: Active Protocol: Document 08/09/25 09:32 BISHOP (Rec: 08/09/25 09:45 BISHOP [id number]) Subjective/History History History Per H&P: Sara Edwards is a 70-year-old female with medical history significant for HFrEF 30% with grade 3 diastolic dysfunction with BiV ICD (being considered for transplant at ), CAD, A-fib, CKD stage IIIb, type 2 diabetes, seizure disorder, GERD who presents with dizziness, progressive weakness starting yesterday. Patient was recently at our facility for HFrEF exacerbation and early June, was discharged in stable condition. States that she was doing well, but has waxed and waned and feeling well. Has followed up with cardiology, being considered for heart transplant at due to refractory HFrEF. She states yesterday she started becoming more weak, dizzy, with headaches and chills. No known sick contacts. States she has chronic shortness of breath does not any worse, denies chest pain, but does endorse abdominal pain especially suprapubic. States she has been peeing much less, but is having normal bowel movements. Patient also does note that she has been having darker stools over the past few days. Workup in the ED significant for hemoglobin 9.0 (11.3 in in early June), BNP 3450, sodium 129, and positive FOBT. Given these findings ED provider discussed case with me and decided to admit patient for GI bleed, and further evaluation management of other symptoms. Subjective Subjective Pt reports she is normally IND with all mobility. Pt lives alone in a single-story home with 0 CODY. Pt normally uses a cane for mobility. Pt has 24/7 assistance if needed. [facility] How much help from another person do you currently need... Turning from your None back to your side while in a flat bed without using bedrails? Moving from lying on None back to sitting on the side of a flat bed without using bedrails? Moving to and from a None bed to a chair ( including a wheelchair)? Standing up from a None chair using your arms? (e.g., wheelchair, bedside chair) Walking in hospital None room? Climbing 3-5 steps A little with a railing? Mobility Score 23 Mobility Level [facility] Mobility 7 Walk 25 feet or more Mobility Calculator Rehab PT IP Eval Objective Appearance Patient Behavior Appropriate,Cooperative Patient Orientation Person,Situation Difficulty following none instructions Speech Pattern Clear Ambulation Patient Able to Yes Ambulate Ambulation Observation IP General Gait Wide Based Gait Pattern Observation Ambulation Distance 40 (feet) Ambulation Assistive Rolling Walker Device Ambulation Ability Contact Guard/Hand Hold Balance Ability to Arise Able, uses arms to help Sitting Balance Steady, safe Standing Balance Steady, wide stance Dynamic Sitting Good Balance Ability Dynamic Standing Good Balance Ability Transfers Bed Transfer Ability Minimal x 1 (25% assist) Sit to Stand Bed Independent Transfer Ability Sit to Stand Chair Independent Transfer Ability Rehab PT IP prob,goals,plan Problems Date of Evaluation: 08/09/25 Rehab Potential Rehab Potential Innapropriate for Skilled Therapy Discharge Plan PT Discharge Plan Pt presents at her baseline in mobility and would not benefit from skilled acute care PT at this time. Eval Complexity Eval Charge Codes 21441 - Moderate Complexity PHYSICIAN CERTIFICATION: I certify the specified therapy services for Sara Edwards are required, authorized, and reviewed every 30 days.
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
[2025-08-09 11:43] LABS: POC Glucose,Bedside 163 gm/dL (70-110)
[2025-08-09 12:06] LABS: POC Glucose,Bedside 226 gm/dL (70-110)
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
--- NOTE | 2025-08-09 12:31 | SW/DCPLANNER ---
Addendum entered by Janice Byrnes 08/10/25 14:07: [facility] is able to accept patient. Bryan Aldrich Original Note: Spoke with patient once she is medically stable and ready for discharge if patient would be interested in home health services. Patient stated that she is interested and that she has no preference in what agency i send her information to. I will send patient's information to [facility] and will update once i hear back from them. Bryan Aldrich
[2025-08-09 12:41] LABS: POC Glucose,Bedside 171 gm/dL (70-110)
[2025-08-09 12:54] LABS: POC Glucose,Bedside 178 gm/dL (70-110)
--- NOTE | 2025-08-09 13:33 | XR_ITS ---
FINAL REPORT CLINICAL HISTORY: BRONCH WITH BIOPSY IN OR FINDINGS: A single fluoroscopic spot film of the chest was obtained for biopsy. 1.46 minutes of fluoroscopy time, 46.90 mGy. IMPRESSION: 1.46 minutes of fluoroscopy time, 46.90 mGy. Reviewed, Interpreted and Dictated by Julian Graves MD Transcribed by Roberta Acuna Authenticated and [facility]
--- NOTE | 2025-08-09 13:36 | EXP.BRONCH.N ---
Procedure: Date: 08/09/25 Patient Date of :: 1955 Procedure Performed:: Bronchoscopy airway examination, bronchoalveolar lavage and transbronchial lung biopsy: Indications:: Pneumonia Performing Provider:: Isrrael Quiñonez MD Referring Provider:: Dr. Liu Sedation:: General anesthesia Procedure:: Bronchoscopy airway examination, bronchoalveolar lavage and transbronchial lung biopsy: A clean diagnostic bronchoscopy was advanced through the ET tube and airways were examined up to subsegmental bronchi. Airways appeared grossly normal, no evidence of mucoid secretions, mucous plugging active bleeding/old blood clots noted. Bronchoalveolar lavage was performed in the right lower lobe superior segment with instillation of 60 cc normal saline with return of 20cc back. BAL fluid was sent for cell count and differential along with bacterial fungal and AFB stain and cultures. Transbronchial forceps lung biopsy was performed in the right lower lobe with a total of 7 biopsies performed, 5 biopsy specimens were sent in formalin for cytopathologic examination. The other 2 biopsy samples, were sent one each in two separate normal saline specimen cups for bacterial fungal and AFB stain cultures. Special request was also made for the pathologist to evaluate for AFB and fungal organisms on the cytopathologic examination. Patient tolerated the procedure with no immediate acute complications. Findings:: Please see the procedure note Recommendations:: Postoperative bronchoscopy instructions Please refer to consultation note from today for further recommendations and management Complications:: No acute immediate complication Estimated blood obtained (mL): 5
--- NOTE | 2025-08-09 13:43 | P.PNANES_ITS ---
[facility] Anesthesia Record Part I Anesthesia Record I Intake, IV Amount: 400 Hydration: Adequate Estimated blood loss (mL): 0 Urine output (mL): 0 Blood Products used (#): none Blood Pressure: 141/66 SaO2: 92 Pulse Rate: 98 Airway Patency: Patent Respiratory Rate: 20 Temperature: 98.3 F Patient is:: Drowsy, Nasal O2 and Stable Stable to PACU at:: 13:38
--- NOTE | 2025-08-09 13:45 | XR_ITS ---
FINAL REPORT TECHNIQUE: Single view chest CLINICAL HISTORY: s/p bronch COMPARISON: 08/07/2025 FINDINGS: A single view of the chest was obtained. Bilateral subclavian pacemakers are in place. The heart and mediastinum are within normal limits. There is right perihilar midlung opacity which could represent pneumonia, partial collapse and/or mass. The left lung is clear. There is a tiny right pleural effusion. There is no pneumothorax. IMPRESSION: Right perihilar midlung opacity which could represent pneumonia, partial collapse and/or mass. Tiny right pleural effusion. No pneumothorax. Reviewed, Interpreted and Dictated by Julian Graves MD Transcribed by Roberta Acuna Authenticated and [facility]
--- NOTE | 2025-08-09 14:20 | P.PN_ITS ---
Subjective Subjective Date: 08/09/25 Time: 14:20 Principal diagnosis: Pneumonia, CHF, weakness, anemia Interval history: 70-year-old white female lying in bed still not feeling well but no acute distress. Patient was waiting to go down for a bronchoscopy which may have been postponed. She has diuresed about 1800 mL during her stay. BUN is 63 with creatinine 2.1 today Exam Data for Last 24 hours Vital signs and Labs for Last 24 Hours: Temp Pulse Resp BP Pulse Ox O2 Del Method O2 Flow Rate 98.3 F 67 16 128/70 96 Nasal Cannula 2 08/09/25 13:44 08/09/25 14:08 08/09/25 14:08 08/09/25 14:08 08/09/25 14:08 08/09/25 14:08 08/09/25 14:08 Laboratory Results - last 24 hr 08/08/25 11:57: POC Glucose 178 H 08/08/25 13:56: Ceruloplasmin 34.3, IgG 1254, IgA 367 H, IgM 74, Mitochondria M2 Ab <20.0, Anti-Smooth Muscle Ab 13, Liver/Kid Microsomes Ab <1.0 08/08/25 16:33: POC Glucose 154 H 08/08/25 21:37: POC Glucose 226 H 08/09/25 05:26: WBC 8.2, RBC 2.51 L, Hgb 8.9 L, Hct 26.4 L, MCV 105.2 H, MCH 35.5 H, MCHC 33.7, RDW 15.2, Plt Count 105 L, MPV 9.9, Neut % (Auto) 80.0, Lymph % (Auto) 9.3 L, [place] % (Auto) 9.4 H, Eos % (Auto) 0.6, Baso % (Auto) 0.2, Neut # (Auto) 6.5, Lymph # (Auto) 0.8, [place] # (Auto) 0.8, Eos # (Auto) 0.1, Baso # (Auto) 0.0, PT 13.9 H, INR 1.27 H, Sodium 129 L, Potassium 4.5, Chloride 95 L, Carbon Dioxide 27, Anion Gap 11.5, BUN 63 H, Creatinine 2.10 H, Estimated Creat Clear 39, Estimated GFR 23 L, Est GFR ( Amer) 28 L, Glucose 142 H, Calcium 8.7, Magnesium 2.1, Total Bilirubin 2.8 H, AST 32, ALT 22, Alkaline Phosphatase 181 H, C-Reactive Protein 225.3 H, Total Protein 7.1, Albumin 3.7, Globulin 3.4 H, Albumin/Globulin Ratio 1.1 08/09/25 05:50: POC Glucose 148 H 08/09/25 11:23: POC Glucose 163 H 08/09/25 12:35: POC Glucose 171 H I & O for Last 24 hours: Intake & Output 08/07/25 08/08/25 08/09/25 08/10/25 11:59 11:59 11:59 11:59 Intake Total 490 / 490 976.667 / 976.667 400 / 400 Output Total 1100 / 1100 2600 / 2600 Balance -610 / -610 -1623.333 / -1623.333 400 / 400 Weight 209 lb 213 lb 6.519 oz 210 lb 8 oz Microbiology Reports for the Last 24 Hours: Microbiology 08/07/25 17:55 Blood Blood Culture - Preliminary NO GROWTH AFTER 24 HOURS 08/07/25 17:45 Blood Blood Culture - Preliminary NO GROWTH AFTER 24 HOURS Constitutional Constitutional: no acute distress *Routine Respiratory Exam Respiratory: Present decreased breath sounds and CTA bilaterally; Absent wheezes *Routine Cardiovascular Exam Cardiovascular: Present RRR *Routine Extremities Exam Extremities: Present edema Progress Note: A&P Assessment and plan (1) Acute on chronic systolic heart failure: Status: Acute (2) Epigastric pain: Status: Acute (3) Dark stools: Status: Acute (4) Occult blood in stools: Status: Acute (5) A-fib: Status: Acute (6) Anticoagulated: Status: Acute (7) Acute on chronic anemia: Status: Acute (8) Acute on chronic renal failure: Status: Acute (9) Type 2 diabetes mellitus with peripheral neuropathy: Status: Acute (10) Presence of cardiac resynchronization therapy defibrillator (INDUCTION HEATING EQUIPMENT SETTER-D): Status: Acute (11) History of implanted electronic device: Problem details: Cardiac contractility modulator implant (IMPULSE) SEP 2022 Status: Chronic (12) HLD (hyperlipidemia): Status: Chronic (13) Presence of CardioMEMS HF system: Status: Acute Assessment and Plan Assessment and Plan for All Diagnoses:: 1. Acute on chronic HFrEF -resume diuretics as BP allows 2. GI bleed with acute on chronic anemia - EGD this admission showed portal hypertensive gastropathy as possible etiology for heme positive stool 3. Acute on chronic CKD, baseline creatinine 1.5-1.8 -current creatinine 2.3 4. History of hypertension -Holding blood pressure medications due to low blood pressure yesterday, this is improving 5. Hyperlipidemia -On statin therapy 6. Chronic A-fib -anticoagulation currently being held due to GI bleed -On digoxin 7. Type 2 diabetes mellitus with peripheral neuropathy - On insulin 8. INDUCTION HEATING EQUIPMENT SETTER-D in situ 9. CCM in situ 10. CardioMEMS in situ and monitored by [facility] -Recent readings increased suggesting worsening CHF 11. Pneumonia -Pulmonary consulted, bronchoscopy performed 08/09/2025 -On cefepime and doxycycline Resume/continue Bumex 2 mg IV daily Restart spironolactone 25 mg twice daily Will try to restart valsartan 40 mg daily Monitor renal status
[2025-08-09 16:11] LABS: POC Glucose,Bedside 176 gm/dL (70-110)
[2025-08-09] MEDS: humaLOG 100 UNITS/ML 10ML VIAL (SSI) SUBCUT ×2 (16:49→21:10)
[2025-08-09] MEDS: ONDANSETRON 4MG/2ML VIAL 4 MG IV (16:49)
--- NOTE | 2025-08-09 18:06 | EXP.ACUTE.PN ---
Subjective *Date: 08/09/25 *Time: 22:47 Interval history: Stable on room air this morning. Continue Eliquis. Denies chest pain. Complained of some nausea and vomiting overnight. Had a fever to 100.8 overnight. Feeling somewhat better this morning. Denies diarrhea. Medical Exam Vital signs and Labs for Last 24 Hours: Vital Signs Temp Pulse Pulse Resp BP BP Pulse Ox 08/09/25 17:00 08/09/25 16:00 97.6 F 08/09/25 15:35 97.9 F 73 20 120/58 L 97 08/09/25 15:05 97.8 F 76 20 121/60 96 08/09/25 15:00 08/09/25 14:50 97.9 F 74 18 122/62 96 08/09/25 14:35 97.8 F 73 18 119/57 L 96 08/09/25 14:20 97.8 F 75 18 115/73 95 08/09/25 14:08 67 16 128/70 96 08/09/25 13:58 83 18 117/69 95 08/09/25 13:48 83 16 127/62 96 08/09/25 13:44 98.3 F 98 H 20 141/66 H 08/09/25 13:38 98.3 F 98 H 16 141/66 H 92 L 08/09/25 12:17 98.2 F 81 18 106/50 L 08/09/25 11:58 98.2 F 81 18 106/50 L 91 L 08/09/25 11:00 08/09/25 09:00 08/09/25 08:20 76 08/09/25 08:00 08/09/25 08:00 100.6 F H 76 18 99/51 L 92 L 08/09/25 06:26 08/09/25 05:00 08/09/25 04:00 98.1 F 76 12 106/43 L 93 L 08/09/25 03:00 08/09/25 01:00 08/09/25 00:00 98.7 F 74 14 90/48 L 94 L 08/08/25 23:00 08/08/25 21:00 08/08/25 20:00 08/08/25 20:00 100.8 F H 74 14 134/65 90 L 08/08/25 19:00 O2 Del Method O2 Flow Rate 08/09/25 17:00 Room Air 08/09/25 16:00 08/09/25 15:35 Nasal Cannula 2 08/09/25 15:05 Nasal Cannula 2 08/09/25 15:00 Room Air 08/09/25 14:50 Nasal Cannula 2 08/09/25 14:35 Nasal Cannula 2 08/09/25 14:20 Nasal Cannula 2 08/09/25 14:08 Nasal Cannula 2 08/09/25 13:58 Nasal Cannula 2 08/09/25 13:48 Nasal Cannula 2 08/09/25 13:44 08/09/25 13:38 Nasal Cannula 2 08/09/25 12:17 Room Air 08/09/25 11:58 Room Air 08/09/25 11:00 Room Air 08/09/25 09:00 Room Air 08/09/25 08:20 08/09/25 08:00 Room Air 08/09/25 08:00 Room Air 08/09/25 06:26 Room Air 08/09/25 05:00 Room Air 08/09/25 04:00 Room Air 08/09/25 03:00 Room Air 08/09/25 01:00 Room Air 08/09/25 00:00 Room Air 08/08/25 23:00 Room Air 08/08/25 21:00 Room Air 08/08/25 20:00 Room Air 08/08/25 20:00 08/08/25 19:00 Room Air Intake and Output 08/09/25 08/09/25 08/09/25 07:59 15:59 23:59 Intake Total 240 / 740 500 / 740 Output Total 500 / 1050 550 / 1050 Balance 240 / -310 0 / -310 -550 / -310 Intake: Intake, Oral Amount 240 / 240 Intake, Total IV Amount 500 / 500 Cefepime HCl 2 gm In 0.9 % 100 / 100 Sodium Chloride 100 ml @ 200 mls/hr IV Q12H [facility] Rx#:[id number] Output: Output, Urine Amount 500 / 1050 550 / 1050 Other: Number of Unmeasured Voids 0 Weight 95.481 kg Patient Weight 08/09/25 23:59 Weight 95.481 kg Laboratory Results - last 24 hr 08/08/25 11:57: POC Glucose 178 H 08/08/25 13:56: Ceruloplasmin 34.3, Angiotensin Convert Enz 64, IgG 1254, IgA 367 H, IgM 74, Mitochondria M2 Ab <20.0, Anti-Smooth Muscle Ab 13, Liver/Kid Microsomes Ab <1.0 08/08/25 21:37: POC Glucose 226 H 08/09/25 05:26: WBC 8.2, RBC 2.51 L, Hgb 8.9 L, Hct 26.4 L, MCV 105.2 H, MCH 35.5 H, MCHC 33.7, RDW 15.2, Plt Count 105 L, MPV 9.9, Neut % (Auto) 80.0, Lymph % (Auto) 9.3 L, [place] % (Auto) 9.4 H, Eos % (Auto) 0.6, Baso % (Auto) 0.2, Neut # (Auto) 6.5, Lymph # (Auto) 0.8, [place] # (Auto) 0.8, Eos # (Auto) 0.1, Baso # (Auto) 0.0, PT 13.9 H, INR 1.27 H, Sodium 129 L, Potassium 4.5, Chloride 95 L, Carbon Dioxide 27, Anion Gap 11.5, BUN 63 H, Creatinine 2.10 H, Estimated Creat Clear 39, Estimated GFR 23 L, Est GFR ( Amer) 28 L, Glucose 142 H, Calcium 8.7, Magnesium 2.1, Total Bilirubin 2.8 H, AST 32, ALT 22, Alkaline Phosphatase 181 H, C-Reactive Protein 225.3 H, Total Protein 7.1, Albumin 3.7, Globulin 3.4 H, Albumin/Globulin Ratio 1.1 08/09/25 05:50: POC Glucose 148 H 08/09/25 11:23: POC Glucose 163 H 08/09/25 12:35: POC Glucose 171 H 08/09/25 16:03: POC Glucose 176 H I & O for Labs for Last 24 Hours: Intake & Output 08/06/25 08/07/25 08/08/25 08/09/25 23:59 23:59 23:59 23:59 Intake Total 150 / 390 978.334 / 1218.334 740 / 740 Output Total 600 / 600 2600 / 2600 1050 / 1050 Balance -450 / -210 -1621.666 / -1381.666 -310 / -310 Weight 96.207 kg 96.8 kg 95.481 kg Microbiology Reports for the Last 24 Hours: Microbiology 08/09/25 Unknown Bronchial Washings - Right Lower Lobe Gram Stain - Final 08/09/25 Unknown Transbronchial Biopsy - Right Lower Lobe Gram Stain - Final 08/07/25 17:55 Blood Blood Culture - Preliminary NO GROWTH AFTER 24 HOURS 08/07/25 17:45 Blood Blood Culture - Preliminary NO GROWTH AFTER 24 HOURS Constitutional: Present no acute distress, obese, chronically ill appearing and cooperative Head: Present atraumatic and normocephalic ENT: Present normal exam Neck: Present normal inspection Respiratory: Present decreased breath sounds and normal respiratory effort; Absent rhonchi, wheezes or crackles Cardiac: Present Reg Rate and Rhythm and No Murmur GI: Present soft and normal bowel sounds; Absent distention or tenderness Rectal (female): Present deferred (female): Present deferred Extremities: Present normal inspection, full ROM and edema (2+ to knees) Skin: Present intact; Absent erythema Neuro: Present Grossly Intact, alert, awake, oriented x 3 and moves all extremities Assessment and Plan *Assessment and plan (1) Pneumonia: Status: Acute Category: Medical Code(s): J18.9 - Pneumonia, unspecified organism (2) Acute heart failure with reduced ejection fraction (HFrEF): Status: Acute Category: Medical Code(s): I50.21 - Acute systolic (congestive) heart failure (3) Occult blood in stools: Status: Acute Category: Medical Code(s): R19.5 - Other fecal abnormalities (4) Presence of CardioMEMS HF system: Status: Acute Category: Medical Code(s): Z95.818 - Presence of other cardiac implants and grafts (5) A-fib: Status: Acute Qualifiers: Atrial fibrillation type: permanent Qualified Code(s): I48.21 - Permanent atrial fibrillation Category: Medical Code(s): I48.91 - Unspecified atrial fibrillation (6) Acute on chronic anemia: Status: Acute Category: Medical Code(s): D64.9 - Anemia, unspecified (7) CHF NYHA class IV (symptoms with any physical activity and at rest): Status: Acute Category: Medical Code(s): I50.9 - Heart failure, unspecified Plan Sara Edwards is a 70-year-old female with medical history significant for HFrEF 30% with grade 3 diastolic dysfunction with BiV ICD (being considered for transplant at ), CAD, A-fib, CKD stage IIIb, type 2 diabetes, seizure disorder, GERD who presents with dizziness, progressive weakness starting yesterday. Patient was recently at our facility for HFrEF exacerbation and early June, was discharged in stable condition. States that she was doing well, but has waxed and waned and feeling well. Has followed up with cardiology, being considered for heart transplant at due to refractory HFrEF. She states yesterday she started becoming more weak, dizzy, with headaches and chills. No known sick contacts. States she has chronic shortness of breath does not any worse, denies chest pain, but does endorse abdominal pain especially suprapubic. States she has been peeing much less, but is having normal bowel movements. Patient also does note that she has been having darker stools over the past few days. Workup in the ED significant for hemoglobin 9.0 (11.3 in in early June), BNP 3450, sodium 129, and positive FOBT. Given these findings ED provider discussed case with me and decided to admit patient for GI bleed, and further evaluation management of other symptoms. #Weakness, dizziness #Suspected hospital-acquired pneumonia ? Presented with weakness, dizziness, and in my initial evaluation he was stating she was feeling cold, and shivering in bed. ? Obtained CT chest 08/07/2025 which showed 5 cm right lower lobe pneumonia. Patient was hospitalized 4 weeks ago. Not producing sputum at this time. ? White blood count remains stable at 8.2. Repeat CBC, CMP, magnesium ordered for the morning. - Discussed case with pulmonology, recommend continuing cefepime and doxycycline pending culture results. Taken for bronchoscopy. Samples obtained. Cultures pending. - Blood cultures with no growth so far. - Continue DuoNebs every 6 hours as needed. Continue supplemental oxygen as needed for goal sats above 90%. On 2 L overnight, on room air on morning rounds ? Normal respiratory panel, TSH, B12, folate, iron panel. #GI bleed #Macrocytic anemia ? Reported dark stools over the past few days prior to admission. On Xarelto for A-fib. Positive FOBT. ? Initial hemoglobin 9.0, hemoglobin stable at 8.9. ? GI consulted, s/p EGD 08/08/2025 without active signs of bleeding. Revealed nonerosive GERD with moderate esophageal dysmotility and very small sliding 1 to 2 cm hiatal hernia, possible short segment Ray's esophagus, moderate portal hypertensive gastropathy. ? GI feels portal hypertensive gastropathy may be reason for positive FOBT. Recommended outpatient colonoscopy. ? Continue p.o. Protonix 40 mg. ? Iron panel, B12, folate normal. #Acute on chronic HFrEF 30% #Grade 3 diastolic dysfunction #BiV ICD #Hypertension #CAD #Possible early cardiogenic shock #CKD stage IIIb ? Patient does seem slightly volume overloaded, BNP 3450. Given advanced, progressive heart failure patient is being considered for heart transplant at . However, unclear if they are aware of cirrhosis diagnosis. ? As of this morning, not making much urine at this time in spite of diuresis. Concern for early cardiogenic shock with LVEF 30%, soft pressures. Cardiology following, will reach out to for CardioMEMS reading but elevated at this time. Advised continuing Bumex and holding GDMT at this time. ? Resumed IV Bumex 2 mg twice daily. Decreased to 2 mg daily tomorrow per cardiology recommendations. ? Holding valsartan, Imdur, Farxiga, metoprolol, spironolactone pending improvement in blood pressures and concern of early cardiogenic shock. ? If urine output, blood pressures do not improve may need transfer to where CardioMEMS was placed and/or starting inotropic support. ? Creatinine bumped from 1.8-2.1 today, held diuretics yesterday. Follow-up response with diuretics. #Decompensated cirrhosis ? CT abdomen/pelvis reveals cirrhotic features, ascites, anasarca. Likely from fatty liver disease. Denies much alcohol use. ?INR 1.27, MELD 25. Further management per GI as an outpatient. ? Continue Bumex diuresis, holding spironolactone due to soft pressures at this time. #A-fib ? Currently rate controlled. Continue home digoxin 125 mcg. Hold home Xarelto due to GI bleed. Consider restarting tomorrow after discussing with cardiology if hemoglobin continues to be stable. #Multinodal thyroid gland #Extrathyroid nodule 2 cm left ? Noted on CT chest. Will need further evaluation in outpatient basis. TFTs normal. #Type 2 diabetes ? Hemoglobin A1c 7.0% in June. ? LDSSI, ACH glucose checks. ? Continue home long-acting insulin once appropriate. Blood sugars stable. #Seizure disorder ? Continue home phenobarbital. #GERD ? Continue PPI. #Obesity ? Complicates all aspects of care. Full code DVT prophylaxis: SCDs
--- NOTE | 2025-08-09 18:14 | PC.NURSE ---
pt has done well since her bronch and has ambulated well back and forth to the br with stand by assist. minimal coughing. vss, 2l nc prn while she has rested in bed. family has been at bs. no needs at this time, cb within reach.
[2025-08-09] MEDS: PANTOPRAZOLE 40MG TABLET 40 MG PO (21:12)
[2025-08-09] MEDS: ROPINIROLE 1MG TABLET 2 MG PO (21:12)
[2025-08-09] MEDS: SPIRONOLACTONE 25MG TABLET 25 MG PO (21:12)
[2025-08-09] MEDS: ATORVASTATIN 40MG TABLET 40 MG PO (21:12)
[2025-08-09] MEDS: PHENOBARBITAL 32.4 MG 97.2 MG PO (21:40)
[2025-08-09 22:17] LABS: POC Glucose,Bedside 360 gm/dL (70-110)
[2025-08-10] VITALS (7 sets, daily range): BP systolic 97–128; BP diastolic 49–70; PULSE 67–83; RESP 16–19; TEMP 36.4–36.6; O2SAT 94–99; BMI 40.6
[2025-08-10 04:45] LABS: MRSA DNA PCR Negative (Negative)
[2025-08-10 05:43] LABS: Alanine Aminotransferase 28 U/L (12-78); Albumin Level 3.8 g/dl (3.5-5.0); Albumin/Globulin Ratio 1.1 (1.1-1.8); Alkaline Phosphatase 193 U/L (38-126); Anion Gap 14.4 mEq/L (5-15); Aspartate Amino Transferase 38 U/L (14-36); Bilirubin,Total 1.8 mg/dl (0.2-1.3); Blood Urea Nitrogen 72 mg/dl (7-17); Calcium 9.1 mg/dl (8.4-10.2); Carbon Dioxide 25 mmol/L (22.0-30.0); Chloride 95 mmol/L (98-107); Creatinine Clearance Estimated 36 mL/min (50-200); Creatinine,Serum 2.30 mg/dl (0.52-1.04); Estimated Glomerular Filt Rate 21 ml/min (>60); GFR (African American) 26 ML/MIN (>60); Globulin 3.4 g/dL (1.3-3.2); Glucose 194 mg/dl (74-100); Magnesium 2.1 mg/dl (1.6-2.3); Potassium 4.4 mmoL/L (3.5-5.1); Sodium 130 mmol/L (136-145); Total Protein,Serum 7.2 g/dl (6.3-8.2)
[2025-08-10 05:56] LABS: Hematocrit 26.6 % (37.0-47.0); Hemoglobin 9.0 g/dL (12.2-16.2); Immature Granulocytes % 0.3 %; Mean Corpuscular HGB Conc 33.8 g/dL (31.8-35.4); Mean Corpuscular Hemoglobin 35.4 pg (27.0-31.2); Mean Corpuscular Volume 104.7 fl (81-99); Nucleated Red Blood Cells % 0 %; Platelet Count 105 K/mm3 (142-424); Red Blood Count 2.54 M/mm3 (4.20-5.40); Red Cell Distribution Width-SD 56.8 fL; White Blood Count 6.8 K/mm3 (4.8-10.8)
[2025-08-10 06:07] LABS: C-Reactive Protein 221.1 mg/L (0-4)
[2025-08-10] MEDS: humaLOG 100 UNITS/ML 10ML VIAL (SSI) SUBCUT ×4 (06:09→20:09)
[2025-08-10 06:22] LABS: POC Glucose,Bedside 218 gm/dL (70-110)
--- NOTE | 2025-08-10 07:42 | P.PN_ITS ---
Subjective *Date: 08/10/25 *Time: 07:42 Medical Exam Vital signs and Labs for Last 24 Hours: Vital Signs Temp Pulse Pulse Resp BP BP Pulse Ox 08/10/25 07:00 08/10/25 05:00 08/10/25 04:00 83 18 122/53 L 94 L 08/10/25 03:00 08/10/25 01:00 08/10/25 00:00 97.7 F 70 16 116/54 L 97 08/09/25 23:00 08/09/25 21:00 08/09/25 20:00 91 L 08/09/25 20:00 97.6 F 80 16 112/54 L 96 08/09/25 18:20 08/09/25 17:00 08/09/25 16:00 97.6 F 08/09/25 15:35 97.9 F 73 20 120/58 L 97 08/09/25 15:05 97.8 F 76 20 121/60 96 08/09/25 15:00 08/09/25 14:50 97.9 F 74 18 122/62 96 08/09/25 14:35 97.8 F 73 18 119/57 L 96 08/09/25 14:20 97.8 F 75 18 115/73 95 08/09/25 14:08 67 16 128/70 96 08/09/25 13:58 83 18 117/69 95 08/09/25 13:48 83 16 127/62 96 08/09/25 13:44 98.3 F 98 H 20 141/66 H 08/09/25 13:38 98.3 F 98 H 16 141/66 H 92 L 08/09/25 12:17 98.2 F 81 18 106/50 L 08/09/25 11:58 98.2 F 81 18 106/50 L 91 L 08/09/25 11:00 08/09/25 09:00 08/09/25 08:20 76 08/09/25 08:00 08/09/25 08:00 100.6 F H 76 18 99/51 L 92 L O2 Del Method O2 Flow Rate 08/10/25 07:00 Nasal Cannula 2 08/10/25 05:00 Nasal Cannula 2 08/10/25 04:00 Nasal Cannula 2 08/10/25 03:00 Nasal Cannula 2 08/10/25 01:00 Nasal Cannula 2 08/10/25 00:00 Room Air 08/09/25 23:00 Nasal Cannula 2 08/09/25 21:00 Room Air 2 08/09/25 20:00 Nasal Cannula 2 08/09/25 20:00 Nasal Cannula 2 08/09/25 18:20 Nasal Cannula 2 08/09/25 17:00 Room Air 08/09/25 16:00 08/09/25 15:35 Nasal Cannula 2 08/09/25 15:05 Nasal Cannula 2 08/09/25 15:00 Room Air 08/09/25 14:50 Nasal Cannula 2 08/09/25 14:35 Nasal Cannula 2 08/09/25 14:20 Nasal Cannula 2 08/09/25 14:08 Nasal Cannula 2 08/09/25 13:58 Nasal Cannula 2 08/09/25 13:48 Nasal Cannula 2 08/09/25 13:44 08/09/25 13:38 Nasal Cannula 2 08/09/25 12:17 Room Air 08/09/25 11:58 Room Air 08/09/25 11:00 Room Air 08/09/25 09:00 Room Air 08/09/25 08:20 08/09/25 08:00 Room Air 08/09/25 08:00 Room Air Intake and Output 08/09/25 08/09/25 08/10/25 15:59 23:59 07:59 Intake Total 500 / 1040 100 / 1040 200 / 200 Output Total 500 / 1450 550 / 1450 800 / 800 Balance 0 / -410 -450 / -410 -600 / -600 Intake: Intake, Oral Amount 0 / 440 200 / 200 Intake, Total IV Amount 500 / 600 100 / 600 Cefepime HCl 2 gm In 0.9 % 100 / 200 100 / 200 Sodium Chloride 100 ml @ 200 mls/hr IV Q12H [facility] Rx#:[id number] Output: Output, Urine Amount 500 / 1450 550 / 1450 800 / 800 Other: Number of Unmeasured Voids 0 Number of Bowel Movements 2 Weight 97.692 kg Patient Weight 08/10/25 23:59 Weight 97.692 kg Laboratory Results - last 24 hr 08/08/25 11:57: POC Glucose 178 H 08/08/25 13:56: Ceruloplasmin 34.3, Angiotensin Convert Enz 64, IgG 1254, IgA 367 H, IgM 74, Mitochondria M2 Ab <20.0, Anti-Smooth Muscle Ab 13, Liver/Kid Microsomes Ab <1.0 08/08/25 16:00: MRSA (PCR) Negative 08/08/25 21:37: POC Glucose 226 H 08/09/25 11:23: POC Glucose 163 H 08/09/25 12:35: POC Glucose 171 H 08/09/25 16:03: POC Glucose 176 H 08/09/25 20:37: POC Glucose 360 H* 08/10/25 05:19: WBC 6.8, RBC 2.54 L, Hgb 9.0 L, Hct 26.6 L, MCV 104.7 H, MCH 35.4 H, MCHC 33.8, RDW 14.8, Plt Count 105 L, MPV 10.5 H, Neut % (Auto) 83.9 H, Lymph % (Auto) 8.8 L, [place] % (Auto) 6.9, Eos % (Auto) 0.0 L, Baso % (Auto) 0.1, Neut # (Auto) 5.7, Lymph # (Auto) 0.6 L, [place] # (Auto) 0.5, Eos # (Auto) 0.0, B aso # (Auto) 0.0, Sodium 130 L, Potassium 4.4, Chloride 95 L, Carbon Dioxide 25, Anion Gap 14.4, BUN 72 H, Creatinine 2.30 H, Estimated Creat Clear 36, Estimated GFR 21 L, Est GFR ( Amer) 26 L, Glucose 194 H D, Calcium 9.1, Magnesium 2.1, Total Bilirubin 1.8 H, AST 38 H, ALT 28 D, Alkaline Phosphatase 193 H, C- Reactive Protein 221.1 H, Total Protein 7.2, Albumin 3.8, Globulin 3.4 H, Albumin/Globulin Ratio 1.1 08/10/25 06:03: POC Glucose 218 H I & O for Labs for Last 24 Hours: Intake & Output 08/07/25 08/08/25 08/09/25 08/10/25 23:59 23:59 23:59 23:59 Intake Total 150 / 390 978.334 / 1218.334 840 / 1040 200 / 200 Output Total 600 / 600 2600 / 2600 1050 / 1450 800 / 800 Balance -450 / -210 -1621.666 / -1381.666 -210 / -410 -600 / -600 Weight 96.207 kg 96.8 kg 95.481 kg 97.692 kg Microbiology Reports for the Last 24 Hours: Microbiology 08/07/25 17:55 Blood Blood Culture - Preliminary NO GROWTH AFTER 48 HOURS 08/07/25 17:45 Blood Blood Culture - Preliminary NO GROWTH AFTER 48 HOURS 08/09/25 Unknown Bronchial Washings - Right Lower Lobe Gram Stain - Final 08/09/25 Unknown Transbronchial Biopsy - Right Lower Lobe Gram Stain - Final The patient's infection will respond to the chosen ABx?: Yes (BLOOD CX NO GROWTH, BRONCHIAL WASHINGS/BIOPSY PENDING, AFEBRILE OVER 24 HR) Is the patient receiving the right drug, dose, and route?: Yes Could a more targeted ABx be ordered?: No How long ABx needed (days)?: 5
[2025-08-10 08:17] LABS: Digoxin 1.20 ng/ml (0.2-2.00)
[2025-08-10] MEDS: BUMETANIDE 1MG/4ML VIAL 2 MG IV (09:27)
[2025-08-10] MEDS: CEFEPIME HCL 2 GM in 0.9 % SODIUM CHLORIDE 100 ML IV ×2 (09:28→20:10)
[2025-08-10] MEDS: POTASSIUM CHLORIDE 20MEQ TAB 20 MEQ PO ×2 (09:28→20:08)
[2025-08-10] MEDS: DOXYCYCLINE HYCL 100 MG TABLET PO ×2 (09:29→20:08)
[2025-08-10] MEDS: DIGOXIN 0.125MG TABLET 125 MCG PO (09:29)
[2025-08-10] MEDS: SPIRONOLACTONE 25MG TABLET 25 MG PO ×2 (09:29→20:08)
[2025-08-10] MEDS: IRBESARTAN 75MG TABLET 37.5 MG PO (09:29)
[2025-08-10] MEDS: GABAPENTIN 600MG TABLET 600 MG PO ×2 (09:41→20:08)
--- NOTE | 2025-08-10 09:53 | P.PN_ITS ---
Subjective *Date: 08/10/25 *Time: 13:12 Interval history: No acute respiratory vents overnight. Patient denies any new respiratory complaints. Admits continued improvement in her respiratory symptoms. Pulmonology Exam Inpatient Vital signs and Labs for Last 24 Hours: Temp Pulse Resp BP Pulse Ox O2 Del Method O2 Flow Rate 97.6 F 69 19 97/62 L 99 Room Air 2 08/10/25 08:00 08/10/25 08:00 08/10/25 08:00 08/10/25 08:00 08/10/25 08:00 08/10/25 08:00 08/10/25 07:00 Laboratory Results - last 24 hr 08/08/25 11:57: POC Glucose 178 H 08/08/25 13:56: Angiotensin Convert Enz 64, Mitochondria M2 Ab <20.0, Anti- Smooth Muscle Ab 13, Liver/Kid Microsomes Ab <1.0 08/08/25 16:00: MRSA (PCR) Negative 08/08/25 21:37: POC Glucose 226 H 08/09/25 11:23: POC Glucose 163 H 08/09/25 12:35: POC Glucose 171 H 08/09/25 16:03: POC Glucose 176 H 08/09/25 20:37: POC Glucose 360 H* 08/10/25 05:19: WBC 6.8, RBC 2.54 L, Hgb 9.0 L, Hct 26.6 L, MCV 104.7 H, MCH 35.4 H, MCHC 33.8, RDW 14.8, Plt Count 105 L, MPV 10.5 H, Neut % (Auto) 83.9 H, Lymph % (Auto) 8.8 L, [place] % (Auto) 6.9, Eos % (Auto) 0.0 L, Baso % (Auto) 0.1, Neut # (Auto) 5.7, Lymph # (Auto) 0.6 L, [place] # (Auto) 0.5, Eos # (Auto) 0.0, Baso # (Auto) 0.0, Sodium 130 L, Potassium 4.4, Chloride 95 L, Carbon Dioxide 25, Anion Gap 14.4, BUN 72 H, Creatinine 2.30 H, Estimated Creat Clear 36, Estimated GFR 21 L, Est GFR ( Amer) 26 L, Glucose 194 H D, Calcium 9.1, Magnesium 2.1, Total Bilirubin 1.8 H, AST 38 H, ALT 28 D, Alkaline Phosphatase 193 H, C-Reactive Protein 221.1 H, Total Protein 7.2, Albumin 3.8, Globulin 3.4 H, Albumin/Globulin Ratio 1.1, Digoxin 1.20 08/10/25 06:03: POC Glucose 218 H Temp Pulse Resp BP Pulse Ox O2 Del Method O2 Flow Rate 100.6 F H 76 18 99/51 L 92 L Room Air 2 08/09/25 08:00 08/09/25 08:20 08/09/25 08:00 08/09/25 08:00 08/09/25 08:00 08/09/25 08:00 08/08/25 15:15 Laboratory Results - last 24 hr 08/08/25 13:56: Ceruloplasmin 34.3, IgG 1254, IgA 367 H, IgM 74 08/08/25 16:33: POC Glucose 154 H 08/09/25 05:26: WBC 8.2, RBC 2.51 L, Hgb 8.9 L, Hct 26.4 L, MCV 105.2 H, MCH 35.5 H, MCHC 33.7, RDW 15.2, Plt Count 105 L, MPV 9.9, Neut % (Auto) 80.0, Lymph % (Auto) 9.3 L, [place] % (Auto) 9.4 H, Eos % (Auto) 0.6, Baso % (Auto) 0.2, Neut # (Auto) 6.5, Lymph # (Auto) 0.8, [place] # (Auto) 0.8, Eos # (Auto) 0.1, Baso # (Auto) 0.0, PT 13.9 H, INR 1.27 H, Sodium 129 L, Potassium 4.5, Chloride 95 L, Carbon Dioxide 27, Anion Gap 11.5, BUN 63 H, Creatinine 2.10 H, Estimated Creat Clear 39, Estimated GFR 23 L, Est GFR ( Amer) 28 L, Glucose 142 H, Calcium 8.7, Magnesium 2.1, Total Bilirubin 2.8 H, AST 32, ALT 22, Alkaline Ph osphatase 181 H, C-Reactive Protein 225.3 H, Total Protein 7.1, Albumin 3.7, Globulin 3.4 H, Albumin/Globulin Ratio 1.1 08/09/25 05:50: POC Glucose 148 H I & O for Labs for Last 24 Hours: Intake & Output 08/07/25 08/08/25 08/09/25 08/10/25 23:59 23:59 23:59 23:59 Intake Total 150 / 390 978.334 / 1218.334 840 / 1040 200 / 200 Output Total 600 / 600 2600 / 2600 1050 / 1450 800 / 800 Balance -450 / -210 -1621.666 / -1381.666 -210 / -410 -600 / -600 Weight 212 lb 1.6 oz 213 lb 6.519 oz 210 lb 8 oz 215 lb 6 oz Intake & Output 08/06/25 08/07/25 08/08/25 08/09/25 23:59 23:59 23:59 23:59 Intake Total 150 / 390 976.667 / 1216.667 240 / 240 Output Total 600 / 600 2600 / 2600 Balance -450 / -210 -1623.333 / -1383.333 240 / 240 Weight 212 lb 1.6 oz 213 lb 6.519 oz 210 lb 8 oz Microbiology Reports for the Last 24 Hours: Microbiology 08/07/25 17:55 Blood Blood Culture - Preliminary NO GROWTH AFTER 48 HOURS 08/07/25 17:45 Blood Blood Culture - Preliminary NO GROWTH AFTER 48 HOURS 08/09/25 Unknown Bronchial Washings - Right Lower Lobe Gram Stain - Final 08/09/25 Unknown Transbronchial Biopsy - Right Lower Lobe Gram Stain - Final Microbiology 08/07/25 17:55 Blood Blood Culture - Preliminary NO GROWTH AFTER 24 HOURS 08/07/25 17:45 Blood Blood Culture - Preliminary NO GROWTH AFTER 24 HOURS Constitutional: Present mild distress Head: Present normocephalic and atraumatic ENT: Present normal exam, normal oropharynx and mucous membranes moist Neck: Present normal inspection and full ROM Respiratory: Present respiratory distress, rhonchi, diminished air movement and able to speak in complete sentences; Absent prolonged expiratory phase or wheezes Cardiac: Present S1/S2, Tachycardia and radial pulses present GI: Present soft and distention; Absent tenderness or guarding Rectal (female): Present deferred (female): Present deferred Skin: Present intact; Absent cyanosis or jaundice Neuro: Present alert, awake and oriented x 3 Extremities: Present normal inspection; Absent clubbing or cyanosis Psychiatric: Present normal affect and cooperative Assessment and Plan *Assessment and plan (1) Pneumonia: Status: Acute Category: Medical Code(s): J18.9 - Pneumonia, unspecified organism (2) Acute respiratory failure with hypoxia: Status: Acute Category: Medical Code(s): J96.01 - Acute respiratory failure with hypoxia Plan Ms. Charlton is a 70-year-old female with no reported significant smoking history with a history of heart failure reduced EF status post ICD placement, CAD A-fib CKD type 2 diabetes mellitus presented to ER with progressively worsening weakness and dizziness and pulmonary was called for further evaluation management of her symptoms of exertional dyspnea and pneumonia. Most recent hospital admissions in May and June for heart failure exacerbation Afebrile. Hemodynamically stable. No evidence of leukocytosis. Low-grade fevers, Tmax of 100.6 in the last 24 hours. Comprehensive respiratory viral PCR panel negative CT chest upon admission dense right middle lobe rounded dense consolidative infiltrate along with lymphadenopathy likely reactive. Trace effusions bilaterally. The noted infiltrate not present on his CT scan from May 2025 . Currently receiving cefepime and doxycycline. Pro-Romeo on this admission within normal limits. Unable to induce sputum. Admits right-sided chest pain and wheezing. Intermittently needing oxygen supplementation. Being evaluated for sleep apnea as an outpatient basis. Interval update No acute respiratory events overnight. Improving oxygen appointments. Saturating 95% and above on room air. Status post bronchoscopy with transbronchial biopsy. BAL stain no organisms seen. Awaiting biopsy stain and cultures. Continue to receive cefepime and doxycycline. Afebrile in the last 24 hours. Chest x-ray postprocedure given BAL done relatively stable with no worsening. Plan: Continue cefepime for total of 7 days for hospital-acquired pneumonia especially in the setting of her immunocompromise status Follow-up with transbronchial biopsy culture stain and cytopathology results DuoNebs every 6 hours on as-needed basis Continue oxygen supplementation on as-needed basis to maintain O2 saturation goal of 90% and above # Thank you for involving pulmonary in this patient care. Will continue to follow.
--- NOTE | 2025-08-10 09:54 | XR_ITS ---
FINAL REPORT TECHNIQUE: Single view chest CLINICAL HISTORY: Pneumoina COMPARISON: 1 day prior FINDINGS: A single view of the chest was obtained. The heart and mediastinum are within normal limits. There is redemonstration of right perihilar opacities which are slightly more dense than on prior exam. Left lung is clear. Pacemakers are present. There is no pneumothorax. IMPRESSION: Redemonstration of right perihilar masslike opacity. No pneumothorax. Reviewed, Interpreted and Dictated by Julian Graves MD Transcribed by Roberta Acuna Authenticated and [facility]
--- NOTE | 2025-08-10 10:10 | EXP.ANES.II ---
[facility] Anesthesia Record Part II Anesthesia Record Part II Discharge Time: 14:08 Destination: Medical Surgical Department PACU nurse assessment reviewed?: Yes Patient Condition:: Good Anesthesia Complications:: None Swallowing reflex intact?: Yes Airway Patency: Patent Cyanosis?: No Blood Pressure: 128/70 SaO2: 96 Respiratory Rate: 16 Pulse Rate: 67 Temperature: 97.8 F Mental Status: Alert & Oriented Pain level:: 0 Nausea and/or vomitting:: None Intake, IV Amount: 0 Hydration: Adequate
--- NOTE | 2025-08-10 10:29 | P.PN_ITS ---
Subjective Subjective Date: 08/10/25 Time: 10:29 Principal diagnosis: Pneumonia, CHF, weakness, anemia Interval history: 70-year-old white female in bed in no acute distress. Actually seems more cheerful today and expresses some desire to go home. She also expresses frustration with all of the medical issues that she is dealing with. She has diuresed about 3 L this admission BUN today is 72 with creatinine 2.3 Hemoglobin is stable at 9 Platelet count is 105,000 but down from 140,000 last month Exam Data for Last 24 hours Vital signs and Labs for Last 24 Hours: Temp Pulse Resp BP Pulse Ox O2 Del Method O2 Flow Rate 97.6 F 69 16 97/62 L 99 Room Air 2 08/10/25 08:00 08/10/25 08:00 08/10/25 10:11 08/10/25 08:00 08/10/25 08:00 08/10/25 08:00 08/10/25 07:00 Laboratory Results - last 24 hr 08/08/25 11:57: POC Glucose 178 H 08/08/25 13:56: Angiotensin Convert Enz 64, Mitochondria M2 Ab <20.0, Anti- Smooth Muscle Ab 13, Liver/Kid Microsomes Ab <1.0 08/08/25 16:00: MRSA (PCR) Negative 08/08/25 21:37: POC Glucose 226 H 08/09/25 11:23: POC Glucose 163 H 08/09/25 12:35: POC Glucose 171 H 08/09/25 16:03: POC Glucose 176 H 08/09/25 20:37: POC Glucose 360 H* 08/10/25 05:19: WBC 6.8, RBC 2.54 L, Hgb 9.0 L, Hct 26.6 L, MCV 104.7 H, MCH 35.4 H, MCHC 33.8, RDW 14.8, Plt Count 105 L, MPV 10.5 H, Neut % (Auto) 83.9 H, Lymph % (Auto) 8.8 L, [place] % (Auto) 6.9, Eos % (Auto) 0.0 L, Baso % (Auto) 0.1, Neut # (Auto) 5.7, Lymph # (Auto) 0.6 L, [place] # (Auto) 0.5, Eos # (Auto) 0.0, Baso # (Auto) 0.0, Sodium 130 L, Potassium 4.4, Chloride 95 L, Carbon Dioxide 25, Anion Gap 14.4, BUN 72 H, Creatinine 2.30 H, Estimated Creat Clear 36, Estimated GFR 21 L, Est GFR ( Amer) 26 L, Glucose 194 H D, Calcium 9.1, Magnesium 2.1, Total Bilirubin 1.8 H, AST 38 H, ALT 28 D, Alkaline Phosphatase 193 H, C-Reactive Protein 221.1 H, Total Protein 7.2, Albumin 3.8, Globulin 3.4 H, Albumin/Globulin Ratio 1.1, Digoxin 1.20 08/10/25 06:03: POC Glucose 218 H I & O for Last 24 hours: Intake & Output 08/07/25 08/08/25 08/09/25 08/10/25 11:59 11:59 11:59 11:59 Intake Total 490 / 490 978.334 / 978.334 700 / 700 Output Total 1100 / 1100 2600 / 2600 1350 / 1350 Balance -610 / -610 -1621.666 / -1621.666 -650 / -650 Weight 209 lb 213 lb 6.519 oz 210 lb 8 oz 215 lb 6 oz Microbiology Reports for the Last 24 Hours: Microbiology 08/07/25 17:55 Blood Blood Culture - Preliminary NO GROWTH AFTER 48 HOURS 08/07/25 17:45 Blood Blood Culture - Preliminary NO GROWTH AFTER 48 HOURS 08/09/25 Unknown Bronchial Washings - Right Lower Lobe Gram Stain - Final 08/09/25 Unknown Transbronchial Biopsy - Right Lower Lobe Gram Stain - Final Constitutional Constitutional: no acute distress *Routine Respiratory Exam Respiratory: Present CTA bilaterally and diminished air movement *Routine Cardiovascular Exam Cardiovascular: Present RRR and murmur; Absent gallop or rubs *Routine Extremities Exam Extremities: Absent edema *Routine Neurological Exam Neurological: Present alert, oriented X3 and CN II-XII intact Progress Note: A&P Assessment and plan (1) Pneumonia: Status: Acute (2) Acute respiratory failure with hypoxia: Status: Acute (3) Acute on chronic systolic heart failure: Status: Acute (4) Epigastric pain: Status: Acute (5) Dark stools: Status: Acute (6) Occult blood in stools: Status: Acute (7) A-fib: Status: Acute (8) Anticoagulated: Status: Acute (9) Acute on chronic anemia: Status: Acute (10) Acute on chronic renal failure: Status: Acute (11) Type 2 diabetes mellitus with peripheral neuropathy: Status: Acute (12) Presence of cardiac resynchronization therapy defibrillator (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 Acute on chronic HFrEF -resume diuretics as BP allows 2. GI bleed with acute on chronic anemia - EGD this admission showed portal hypertensive gastropathy as possible etiology for heme positive stool 3. Acute on chronic CKD, baseline creatinine 1.5-1.8 -current creatinine 2.3 4. History of hypertension -restarted low Dose ARB yesterday -BP borderline low 5. Hyperlipidemia -On statin therapy 6. Chronic A-fib -anticoagulation currently being held due to GI bleed -On digoxin 7. Type 2 diabetes mellitus with peripheral neuropathy - On insulin 8. AIRPLANE PATROLLER-D in situ -Download, 07/19/2025, 100% AFib, BiV paced 100% 9. CCM in situ 10. CardioMEMS in situ and monitored by -Recent readings increased suggesting worsening CHF prior to admission 11. Pneumonia -Pulmonary consulted, bronchoscopy performed 08/09/2025 -On cefepime and doxycycline 12. CAD with [facility] 06/2024 showing diffuse, mild CAD and LVEDP 20 mm Hg Echo this admission shows EF 40-45% (which is improved since 12/2024 EF 30%) Will not restart metoprolol or isosorbide at this time due to low BP. Try to continue low dose ARB therapy and diuretics (spironolactone and bumex) with potassium supplementation as needed. Continue digoxin Continue atorvastatin Will need to restart anticoagulation due to persistant A. fib. Reduce dose to Xarelto 15 mg due to CKD. Patient seems stable for discharge home when Dr. Liu is ready. Follow-up in our office in 1 week with BMP and CBC. Home medication recommendations: Atorvastatin 40 mg daily Digoxin 0.125 mg daily Potassium 20 mill equivalents twice daily Bumex 2 mg p.o. daily Spironolactone 25 mg twice daily Valsartan 40 mg daily Xarelto 15 mg daily (new dose) Stop metoprolol, metolazone, isosorbide and Jardiance for now with plans to consider restarting as outpatient.
[2025-08-10 10:46] LABS: POC Glucose,Bedside 197 gm/dL (70-110)
--- NOTE | 2025-08-10 12:37 | EXP.ACUTE.PN ---
Subjective *Date: 08/10/25 *Time: 15:55 Interval history: On room air this morning. No acute distress. White count remains stable. CRP remains elevated. Blood pressure showing improvement. Having good diuresis. Slight bump in kidney function. Patient still quite weak. Encouraged her to get out of bed today and ambulate with nursing support. Medical Exam Vital signs and Labs for Last 24 Hours: Vital Signs Temp Pulse Pulse Resp BP BP Pulse Ox 08/10/25 10:11 16 08/10/25 09:00 08/10/25 08:00 97.6 F 69 19 97/62 L 99 08/10/25 08:00 08/10/25 07:00 08/10/25 05:00 08/10/25 04:00 83 18 122/53 L 94 L 08/10/25 03:00 08/10/25 01:00 08/10/25 00:00 97.7 F 70 16 116/54 L 97 08/09/25 23:00 08/09/25 21:00 08/09/25 20:00 91 L 08/09/25 20:00 97.6 F 80 16 112/54 L 96 08/09/25 18:20 08/09/25 17:00 08/09/25 16:00 97.6 F 08/09/25 15:35 97.9 F 73 20 120/58 L 97 08/09/25 15:05 97.8 F 76 20 121/60 96 08/09/25 15:00 08/09/25 14:50 97.9 F 74 18 122/62 96 08/09/25 14:35 97.8 F 73 18 119/57 L 96 08/09/25 14:20 97.8 F 75 18 115/73 95 08/09/25 14:08 67 16 128/70 96 08/09/25 13:58 83 18 117/69 95 08/09/25 13:48 83 16 127/62 96 08/09/25 13:44 98.3 F 98 H 20 141/66 H 08/09/25 13:38 98.3 F 98 H 16 141/66 H 92 L O2 Del Method O2 Flow Rate 08/10/25 10:11 08/10/25 09:00 Nasal Cannula 08/10/25 08:00 Room Air 08/10/25 08:00 Nasal Cannula 08/10/25 07:00 Nasal Cannula 2 08/10/25 05:00 Nasal Cannula 2 08/10/25 04:00 Nasal Cannula 2 08/10/25 03:00 Nasal Cannula 2 08/10/25 01:00 Nasal Cannula 2 08/10/25 00:00 Room Air 08/09/25 23:00 Nasal Cannula 2 08/09/25 21:00 Room Air 2 08/09/25 20:00 Nasal Cannula 2 08/09/25 20:00 Nasal Cannula 2 08/09/25 18:20 Nasal Cannula 2 08/09/25 17:00 Room Air 08/09/25 16:00 08/09/25 15:35 Nasal Cannula 2 08/09/25 15:05 Nasal Cannula 2 08/09/25 15:00 Room Air 08/09/25 14:50 Nasal Cannula 2 08/09/25 14:35 Nasal Cannula 2 08/09/25 14:20 Nasal Cannula 2 08/09/25 14:08 Nasal Cannula 2 08/09/25 13:58 Nasal Cannula 2 08/09/25 13:48 Nasal Cannula 2 08/09/25 13:44 08/09/25 13:38 Nasal Cannula 2 Intake and Output 08/09/25 08/10/25 08/10/25 23:59 07:59 15:59 Intake Total 100 / 1040 200 / 200 0 / 200 Output Total 550 / 1450 800 / 800 Balance -450 / -410 -600 / -600 0 / -600 Intake: Intake, Oral Amount 0 / 440 200 / 200 Intake, Total IV Amount 100 / 600 0 / 0 Cefepime HCl 2 gm In 0.9 % 100 / 200 Sodium Chloride 100 ml @ 200 mls/hr IV Q12H [facility] Rx#:[id number] Output: Output, Urine Amount 550 / 1450 800 / 800 Other: Number of Unmeasured Voids 0 Number of Bowel Movements 2 Weight 97.692 kg Patient Weight 08/10/25 23:59 Weight 97.692 kg Laboratory Results - last 24 hr 08/08/25 11:57: POC Glucose 178 H 08/08/25 13:56: Angiotensin Convert Enz 64, Mitochondria M2 Ab <20.0, Anti-Smooth Muscle Ab 13, Liver/Kid Microsomes Ab <1.0 08/08/25 16:00: MRSA (PCR) Negative 08/09/25 12:35: POC Glucose 171 H 08/09/25 16:03: POC Glucose 176 H 08/09/25 20:37: POC Glucose 360 H* 08/10/25 05:19: WBC 6.8, RBC 2.54 L, Hgb 9.0 L, Hct 26.6 L, MCV 104.7 H, MCH 35.4 H, MCHC 33.8, RDW 14.8, Plt Count 105 L, MPV 10.5 H, Neut % (Auto) 83.9 H, Lymph % (Auto) 8.8 L, [place] % (Auto) 6.9, Eos % (Auto) 0.0 L, Baso % (Auto) 0.1, Neut # (Auto) 5.7, Lymph # (Auto) 0.6 L, [place] # (Auto) 0.5, Eos # (Auto) 0.0, Baso # (Auto) 0.0, Sodium 130 L, Potassium 4.4, Chloride 95 L, Carbon Dioxide 25, Anion Gap 14.4, BUN 72 H, Creatinine 2.30 H, Estimated Creat Clear 36, Estimated GFR 21 L, Est GFR ( Amer) 26 L, Glucose 194 H D, Calcium 9.1, Magnesium 2.1, Total Bilirubin 1.8 H, AST 38 H, ALT 28 D, Alkaline Phosphatase 193 H, C-Reactive Protein 221.1 H, Total Protein 7.2, Albumin 3.8, Globulin 3.4 H, Albumin/Globulin Ratio 1.1, Digoxin 1.20 08/10/25 06:03: POC Glucose 218 H 08/10/25 10:27: POC Glucose 197 H I & O for Labs for Last 24 Hours: Intake & Output 08/07/25 08/08/25 08/09/25 08/10/25 23:59 23:59 23:59 23:59 Intake Total 150 / 390 978.334 / 1218.334 840 / 1040 200 / 200 Output Total 600 / 600 2600 / 2600 1050 / 1450 800 / 800 Balance -450 / -210 -1621.666 / -1381.666 -210 / -410 -600 / -600 Weight 96.207 kg 96.8 kg 95.481 kg 97.692 kg Microbiology Reports for the Last 24 Hours: Microbiology 08/07/25 17:55 Blood Blood Culture - Preliminary NO GROWTH AFTER 48 HOURS 08/07/25 17:45 Blood Blood Culture - Preliminary NO GROWTH AFTER 48 HOURS 08/09/25 Unknown Bronchial Washings - Right Lower Lobe Gram Stain - Final 08/09/25 Unknown Transbronchial Biopsy - Right Lower Lobe Gram Stain - Final Constitutional: Present no acute distress, obese, chronically ill appearing and cooperative Head: Present atraumatic and normocephalic ENT: Present normal exam Neck: Present normal inspection Respiratory: Present decreased breath sounds and normal respiratory effort; Absent rhonchi, wheezes or crackles Cardiac: Present Reg Rate and Rhythm and No Murmur GI: Present soft and normal bowel sounds; Absent distention or tenderness Rectal (female): Present deferred (female): Present deferred Extremities: Present normal inspection, full ROM and edema (1+ to knees) Skin: Present intact; Absent erythema Neuro: Present Grossly Intact, alert, awake, oriented x 3 and moves all extremities Assessment and Plan *Assessment and plan (1) Pneumonia: Status: Acute Category: Medical Code(s): J18.9 - Pneumonia, unspecified organism (2) Acute heart failure with reduced ejection fraction (HFrEF): Status: Acute Category: Medical Code(s): I50.21 - Acute systolic (congestive) heart failure (3) Occult blood in stools: Status: Acute Category: Medical Code(s): R19.5 - Other fecal abnormalities (4) Presence of CardioMEMS HF system: Status: Acute Category: Medical Code(s): Z95.818 - Presence of other cardiac implants and grafts (5) A-fib: Status: Acute Qualifiers: Atrial fibrillation type: permanent Qualified Code(s): I48.21 - Permanent atrial fibrillation Category: Medical Code(s): I48.91 - Unspecified atrial fibrillation (6) Acute on chronic anemia: Status: Acute Category: Medical Code(s): D64.9 - Anemia, unspecified (7) CHF NYHA class IV (symptoms with any physical activity and at rest): Status: Acute Category: Medical Code(s): I50.9 - Heart failure, unspecified Plan Sara Edwards is a 70-year-old female with medical history significant for HFrEF 30% with grade 3 diastolic dysfunction with BiV ICD (being considered for transplant at ), CAD, A-fib, CKD stage IIIb, type 2 diabetes, seizure disorder, GERD who presents with dizziness, progressive weakness starting yesterday. Patient was recently at our facility for HFrEF exacerbation and early June, was discharged in stable condition. States that she was doing well, but has waxed and waned and feeling well. Has followed up with cardiology, being considered for heart transplant at due to refractory HFrEF. She states yesterday she started becoming more weak, dizzy, with headaches and chills. No known sick contacts. States she has chronic shortness of breath does not any worse, denies chest pain, but does endorse abdominal pain especially suprapubic. States she has been peeing much less, but is having normal bowel movements. Patient also does note that she has been having darker stools over the past few days. Workup in the ED significant for hemoglobin 9.0 (11.3 in in early June), BNP 3450, sodium 129, and positive FOBT. Given these findings ED provider discussed case with me and decided to admit patient for GI bleed, and further evaluation management of other symptoms. #Weakness, dizziness #Suspected hospital-acquired pneumonia ? Presented with weakness, dizziness, and in my initial evaluation he was stating she was feeling cold, and shivering in bed. ? Obtained CT chest 08/07/2025 which showed 5 cm right lower lobe pneumonia. Patient was hospitalized 4 weeks ago. Not producing sputum at this time. ? White blood count improved to 6.8. CRP stable 220 - Discussed case with pulmonology, recommend continuing cefepime and doxycycline pending culture results. Awaiting bronchoscopy samples. Culture pending. - Blood cultures with no growth so far. - Continue DuoNebs every 6 hours as needed. Continue supplemental oxygen as needed for goal sats above 90%. On 2 L overnight, on room air on morning rounds ? Normal respiratory panel, TSH, B12, folate, iron panel. #GI bleed #Macrocytic anemia ? Reported dark stools over the past few days prior to admission. On Xarelto for A-fib. Positive FOBT. ?Hemoglobin stable at 9. ? GI consulted, s/p EGD 08/08/2025 without active signs of bleeding. Revealed nonerosive GERD with moderate esophageal dysmotility and very small sliding 1 to 2 cm hiatal hernia, possible short segment Ray's esophagus, moderate portal hypertensive gastropathy. ? GI feels portal hypertensive gastropathy may be reason for positive FOBT. Recommended outpatient colonoscopy. ? Continue p.o. Protonix 40 mg. ? Iron panel, B12, folate normal. #Acute on chronic HFrEF 30% #Grade 3 diastolic dysfunction #BiV ICD #Hypertension #CAD #Possible early cardiogenic shock #CKD stage IIIb ? Patient does seem slightly volume overloaded, BNP 3450. Given advanced, progressive heart failure patient is being considered for heart transplant at . However, unclear if they are aware of cirrhosis diagnosis. ? -2.7 L since admission. Continue Bumex 2 mg daily tomorrow per cardiology recommendations. ? Holding valsartan, Imdur, Farxiga, metoprolol, spironolactone pending improvement in blood pressures and concern of early cardiogenic shock. ?Creatinine up from 2.1 yesterday to 2.3 today, BUN 72. Improved urine output. Potassium 4.4. Sodium improving at 130. Repeat CBC, CMP, magnesium ordered for the morning. #Decompensated cirrhosis ? CT abdomen/pelvis reveals cirrhotic features, ascites, anasarca. Likely from fatty liver disease. Denies much alcohol use. ?INR 1.27, MELD 25. Further management per GI as an outpatient. ? Continue Bumex diuresis, holding spironolactone due to soft pressures at this time. #A-fib ? Currently rate controlled. Continue home digoxin 125 mcg. Hold home Xarelto due to GI bleed. Consider restarting tomorrow after discussing with cardiology if hemoglobin continues to be stable. #Multinodal thyroid gland #Extrathyroid nodule 2 cm left ? Noted on CT chest. Will need further evaluation in outpatient basis. TFTs normal. #Type 2 diabetes ? Hemoglobin A1c 7.0% in June. ? LDSSI, ACH glucose checks. ? Continue home long-acting insulin once appropriate. Blood sugars stable. #Seizure disorder ? Continue home phenobarbital. #GERD ? Continue PPI. #Obesity ? Complicates all aspects of care. Full code DVT prophylaxis: SCDs
[2025-08-10 20:03] LABS: POC Glucose,Bedside 268 gm/dL (70-110)
[2025-08-10] MEDS: PANTOPRAZOLE 40MG TABLET 40 MG PO (20:08)
[2025-08-10] MEDS: ATORVASTATIN 40MG TABLET 40 MG PO (20:08)
[2025-08-10] MEDS: PHENOBARBITAL 32.4 MG 97.2 MG PO (20:08)
[2025-08-10] MEDS: ROPINIROLE 1MG TABLET 2 MG PO (20:08)
[2025-08-11] VITALS (7 sets, daily range): BP systolic 98–109; BP diastolic 53–61; PULSE 65–80; RESP 14–18; TEMP 36.3–36.5; O2SAT 93–98; BMI 40.6
[2025-08-11] MEDS: HYDROCODONE/APAP 5/325 MG TABLET 1 TAB PO ×2 (00:38→21:06)
[2025-08-11 05:44] LABS: Hematocrit 27.6 % (37.0-47.0); Hemoglobin 9.0 g/dL (12.2-16.2); Immature Granulocytes % 0.3 %; Mean Corpuscular HGB Conc 32.6 g/dL (31.8-35.4); Mean Corpuscular Hemoglobin 34.5 pg (27.0-31.2); Mean Corpuscular Volume 105.7 fl (81-99); Nucleated Red Blood Cells % 0 %; Platelet Count 114 K/mm3 (142-424); Red Blood Count 2.61 M/mm3 (4.20-5.40); Red Cell Distribution Width-SD 58.5 fL; White Blood Count 7.3 K/mm3 (4.8-10.8)
[2025-08-11 05:56] LABS: Alanine Aminotransferase 24 U/L (12-78); Albumin Level 3.7 g/dl (3.5-5.0); Albumin/Globulin Ratio 1.1 (1.1-1.8); Alkaline Phosphatase 191 U/L (38-126); Anion Gap 11.1 mEq/L (5-15); Aspartate Amino Transferase 37 U/L (14-36); Bilirubin,Total 1.4 mg/dl (0.2-1.3); Blood Urea Nitrogen 79 mg/dl (7-17); Calcium 9.0 mg/dl (8.4-10.2); Carbon Dioxide 27 mmol/L (22.0-30.0); Chloride 94 mmol/L (98-107); Creatinine Clearance Estimated 36 mL/min (50-200); Creatinine,Serum 2.30 mg/dl (0.52-1.04); Estimated Glomerular Filt Rate 21 ml/min (>60); GFR (African American) 26 ML/MIN (>60); Globulin 3.3 g/dL (1.3-3.2); Glucose 134 mg/dl (74-100); Magnesium 2.0 mg/dl (1.6-2.3); Potassium 4.1 mmoL/L (3.5-5.1); Sodium 128 mmol/L (136-145); Total Protein,Serum 7.0 g/dl (6.3-8.2)
[2025-08-11 06:05] LABS: C-Reactive Protein 121.2 mg/L (0-4)
[2025-08-11 06:29] LABS: POC Glucose,Bedside 161 gm/dL (70-110)
[2025-08-11] MEDS: humaLOG 100 UNITS/ML 10ML VIAL (SSI) SUBCUT ×4 (06:36→20:39)
--- NOTE | 2025-08-11 08:39 | EXP.PHA.PN ---
Subjective *Date: 08/11/25 *Time: 08:39 Medical Exam Vital signs and Labs for Last 24 Hours: Vital Signs Temp Pulse Resp BP Pulse Ox O2 Del Method O2 Flow Rate 08/11/25 08:00 97.4 F L 71 18 104/53 L 98 Room Air 08/11/25 06:41 Room Air 08/11/25 05:00 Nasal Cannula 2 08/11/25 04:00 97.7 F 80 16 99/53 L 93 L Room Air 08/11/25 03:00 Nasal Cannula 2 08/11/25 01:00 Nasal Cannula 2 08/11/25 00:00 97.6 F 70 14 109/60 L 94 L Room Air 08/10/25 20:00 97.6 F 70 16 107/49 L 96 Room Air 08/10/25 18:05 Room Air 08/10/25 17:00 Room Air 08/10/25 16:00 97.6 F 83 18 117/55 L 94 L Room Air 08/10/25 15:00 Room Air 08/10/25 13:00 Room Air 08/10/25 12:00 97.8 F 72 17 107/65 L 94 L Room Air 08/10/25 10:11 16 08/10/25 09:00 Nasal Cannula Intake and Output 08/10/25 08/11/25 08/11/25 23:59 07:59 15:59 Intake Total 220 / 790 30 / 30 Output Total 1 / 801 100 / 100 Balance 219 / -11 -70 / -70 Intake: Intake, Oral Amount 120 / 590 30 / 30 Intake, Total IV Amount 100 / 200 Cefepime HCl 2 gm In 0.9 % 100 / 200 Sodium Chloride 100 ml @ 200 mls/hr IV Q12H [facility] Rx#:[id number] Output: Output, Urine Amount 1 801 100 / 100 Other: Number of Unmeasured Voids 0 Number of Bowel Movements 1 Weight 97.69 kg Patient Weight 08/11/25 23:59 Weight 97.69 kg Laboratory Results - last 24 hr 08/10/25 10:27: POC Glucose 197 H 08/10/25 19:51: POC Glucose 268 H 08/11/25 05:27: WBC 7.3, RBC 2.61 L, Hgb 9.0 L, Hct 27.6 L, MCV 105.7 H, MCH 34.5 H, MCHC 32.6, RDW 15.0, Plt Count 114 L, MPV 10.7 H, Neut % (Auto) 74.9, Lymph % (Auto) 14.3, [place] % (Auto) 8.6, Eos % (Auto) 1.4, Baso % (Auto) 0.5, Neut # (Auto) 5.5, Lymph # (Auto) 1.1, [place] # (Auto) 0.6, Eos # (Auto) 0.1, Baso # (Auto) 0.0, Sodium 128 L, Potassium 4.1, Chloride 94 L, Carbon Dioxide 27, Anion Gap 11.1, BUN 79 H, Creatinine 2.30 H, Estimated Creat Clear 36, Estimated GFR 21 L, Est GFR ( Amer) 26 L, Glucose 134 H, Calcium 9.0, Magnesium 2.0, Total Bilirubin 1.4 H, AST 37 H, ALT 24, Alkaline Phosphatase 191 H, C-Reactive Protein 121.2 H, Total Protein 7.0, Albumin 3.7, Globulin 3.3 H, Albumin/Globulin Ratio 1.1 08/11/25 06:06: POC Glucose 161 H I & O for Labs for Last 24 Hours: Intake & Output 08/08/25 08/09/25 08/10/25 08/11/25 23:59 23:59 23:59 23:59 Intake Total 978.334 / 1218.334 840 / 1040 760 / 790 30 / 30 Output Total 2600 / 2600 1050 / 1450 801 / 801 100 / 100 Balance -1621.666 / -1381.666 -210 / -410 -41 / -11 -70 / -70 Weight 96.8 kg 95.481 kg 97.692 kg 97.69 kg Microbiology Reports for the Last 24 Hours: Microbiology 08/09/25 Unknown Transbronchial Biopsy - Right Lower Lobe Gram Stain - Final 08/09/25 Unknown Transbronchial Biopsy - Right Lower Lobe Surgical Biopsy Culture - Preliminary NO GROWTH AFTER 24 HOURS The patient's infection will respond to the chosen ABx?: Yes (BRONCHIAL WASHINGS/BIOPSY CX PENDING, AFEBRILE OVER 24 HR) Is the patient receiving the right drug, dose, and route?: Yes Could a more targeted ABx be ordered?: No How long ABx needed (days)?: 7
[2025-08-11] MEDS: DOXYCYCLINE HYCL 100 MG TABLET PO ×2 (08:57→20:39)
[2025-08-11] MEDS: POTASSIUM CHLORIDE 20MEQ TAB 20 MEQ PO ×2 (08:57→20:38)
[2025-08-11] MEDS: DIGOXIN 0.125MG TABLET 125 MCG PO (08:57)
[2025-08-11] MEDS: IRBESARTAN 75MG TABLET 37.5 MG PO (08:58)
[2025-08-11] MEDS: CEFEPIME HCL 2 GM in 0.9 % SODIUM CHLORIDE 100 ML IV (09:00)
[2025-08-11] MEDS: GABAPENTIN 600MG TABLET 600 MG PO (09:10)
[2025-08-11 10:16] LABS: Ammonia 14 umol/L (9-30)
--- NOTE | 2025-08-11 10:52 | P.PN_ITS ---
Subjective Subjective Date: 08/11/25 Time: 10:52 Principal diagnosis: Pneumonia, CHF, weakness, anemia Interval history: 70 yo WF in bedside chair in NAD. Seems tired but overall seems better than on admission. Chronic pain in feet helped by pain meds. LFT's only mildy elevated with normal ammonia level today. Dig level normal. Exam Data for Last 24 hours Vital signs and Labs for Last 24 Hours: Temp Pulse Resp BP Pulse Ox O2 Del Method O2 Flow Rate 97.4 F L 71 18 104/53 L 98 Room Air 2 08/11/25 08:00 08/11/25 08:00 08/11/25 08:00 08/11/25 08:00 08/11/25 08:00 08/11/25 08:00 08/11/25 05:00 Laboratory Results - last 24 hr 08/10/25 19:51: POC Glucose 268 H 08/11/25 05:27: WBC 7.3, RBC 2.61 L, Hgb 9.0 L, Hct 27.6 L, MCV 105.7 H, MCH 34.5 H, MCHC 32.6, RDW 15.0, Plt Count 114 L, MPV 10.7 H, Neut % (Auto) 74.9, Lymph % (Auto) 14.3, [place] % (Auto) 8.6, Eos % (Auto) 1.4, Baso % (Auto) 0.5, Neut # (Auto) 5.5, Lymph # (Auto) 1.1, [place] # (Auto) 0.6, Eos # (Auto) 0.1, Baso # (Auto) 0.0, Sodium 128 L, Potassium 4.1, Chloride 94 L, Carbon Dioxide 27, Anion Gap 11.1, BUN 79 H, Creatinine 2.30 H, Estimated Creat Clear 36, Estimated GFR 21 L, Est GFR ( Amer) 26 L, Glucose 134 H, Calcium 9.0, Magnesium 2.0, Total Bilirubin 1.4 H, AST 37 H, ALT 24, Alkaline Phosphatase 191 H, C- Reactive Protein 121.2 H, Total Protein 7.0, Albumin 3.7, Globulin 3.3 H, Albumin/Globulin Ratio 1.1 08/11/25 06:06: POC Glucose 161 H 08/11/25 09:54: Ammonia 14 I & O for Last 24 hours: Intake & Output 09/15/25 09/16/25 09/17/25 09/18/25 11:59 11:59 11:59 11:59 Intake Total 490 / 490 978.334 / 978.334 700 / 700 590 / 590 Output Total 1100 / 1100 2600 / 2600 1350 / 1350 101 / 101 Balance -610 / -610 -1621.666 / -1621.666 -650 / -650 489 / 489 Weight 213 lb 6.519 oz 210 lb 8 oz 215 lb 6 oz 215 lb 5.913 oz Microbiology Reports for the Last 24 Hours: Microbiology 08/09/25 Unknown Bronchial Washings - Right Lower Lobe - Final 08/09/25 Unknown Bronchial Washings - Right Lower Lobe Acid Fast Bacilli Smear - Final 08/09/25 Unknown Transbronchial Biopsy - Right Lower Lobe - Final 08/09/25 Unknown Transbronchial Biopsy - Right Lower Lobe Acid Fast Bacilli Smear - Final 08/09/25 Unknown Transbronchial Biopsy - Right Lower Lobe Gram Stain - Final 08/09/25 Unknown Transbronchial Biopsy - Right Lower Lobe Surgical Biopsy Culture - Preliminary NO GROWTH AFTER 24 HOURS Constitutional Constitutional: no acute distress *Routine Respiratory Exam Respiratory: Present CTA bilaterally *Routine Cardiovascular Exam Comments: chronic a.fib with paced rhythm on telemetry *Routine Extremities Exam Extremities: Absent edema *Routine Neurological Exam Neurological: Present alert, oriented X3 and CN II-XII intact Progress Note: A&P Assessment and plan (1) Pneumonia: Status: Acute (2) Acute respiratory failure with hypoxia: Status: Acute (3) Occult blood in stools: Status: Acute (4) Presence of CardioMEMS HF system: Status: Acute (5) Acute on chronic systolic heart failure: Status: Acute (6) A-fib: Status: Acute (7) Acute on chronic anemia: Status: Acute (8) Anticoagulated: Status: Acute (9) Acute on chronic renal failure: Status: Acute (10) Type 2 diabetes mellitus with peripheral neuropathy: Status: Acute (11) Presence of cardiac resynchronization therapy defibrillator (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 Acute on chronic HFrEF -clinically improved -holding diuretics today due to acute on chronic CKD -echo this admit shows improved EF 40-45% 2. GI bleed with acute on chronic anemia - EGD this admission showed portal hypertensive gastropathy as possible etiology for heme positive stool 3. Acute on chronic CKD, baseline creatinine 1.5-1.8 -current creatinine 2.3 4. History of hypertension -On low Dose ARB yesterday -BP borderline low but stable 5. Hyperlipidemia -On statin therapy 6. Chronic A-fib -anticoagulation currently being held due to GI bleed but will restart at 15 mg daily -On digoxin with normal level 7. Type 2 diabetes mellitus with peripheral neuropathy - On insulin 8. 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 CCM in situ 10. CardioMEMS in situ and monitored by -Recent readings increased suggesting worsening CHF prior to admission 11. Pneumonia -Pulmonary consulted, bronchoscopy performed 08/09/2025 -On cefepime and doxycycline 12. CAD with [facility] 06/2024 showing diffuse, mild CAD and LVEDP 20 mm Hg Patient seems stable from cardiac standpoint for discharge home when Dr. Liu is ready. Follow-up in our office in 1 week with BMP and CBC. Home medication recommendations: Atorvastatin 40 mg daily Digoxin 0.125 mg daily Potassium 20 mill equivalents twice daily Bumex 2 mg p.o. daily Spironolactone 25 mg twice daily Valsartan 40 mg daily Xarelto 15 mg daily (new dose) Stop metoprolol, metolazone, isosorbide and Jardiance for now with plans to consider restarting as outpatient.
[2025-08-11 12:22] LABS: POC Glucose,Bedside 208 gm/dL (70-110)
--- NOTE | 2025-08-11 13:17 | P.PN_ITS ---
Subjective *Date: 08/11/25 *Time: 20:49 Interval history: Afebrile overnight. Stable on room air. Having more twitching/akathisia. Patient states she is confused but knows her name, date of , where she is, why she is at the hospital. States her confusion happens mainly when she wakes up and then improves. States been going on prior to hospitalization. No nausea or vomiting. Tolerating p.o. intake. Medical Exam Vital signs and Labs for Last 24 Hours: Vital Signs Temp Pulse Pulse Resp BP Pulse Ox O2 Del Method 08/11/25 11:52 Room Air 08/11/25 11:44 97.5 F L 70 18 101/54 L 93 L Room Air 08/11/25 11:00 Room Air 08/11/25 09:00 Room Air 08/11/25 08:00 Room Air 08/11/25 08:00 70 08/11/25 08:00 97.4 F L 71 18 104/53 L 98 Room Air 08/11/25 06:41 Room Air 08/11/25 05:00 Nasal Cannula 08/11/25 04:00 97.7 F 80 16 99/53 L 93 L Room Air 08/11/25 03:00 Nasal Cannula 08/11/25 01:00 Nasal Cannula 08/11/25 00:00 97.6 F 70 14 109/60 L 94 L Room Air 08/10/25 20:00 97.6 F 70 16 107/49 L 96 Room Air 08/10/25 18:05 Room Air 08/10/25 17:00 Room Air 08/10/25 16:00 97.6 F 83 18 117/55 L 94 L Room Air 08/10/25 15:00 Room Air O2 Flow Rate 08/11/25 11:52 08/11/25 11:44 08/11/25 11:00 08/11/25 09:00 08/11/25 08:00 08/11/25 08:00 08/11/25 08:00 08/11/25 06:41 08/11/25 05:00 2 08/11/25 04:00 08/11/25 03:00 2 08/11/25 01:00 2 08/11/25 00:00 08/10/25 20:00 08/10/25 18:05 08/10/25 17:00 08/10/25 16:00 08/10/25 15:00 Intake and Output 08/10/25 08/11/25 08/11/25 23:59 07:59 15:59 Intake Total 220 / 790 30 / 30 Output Total 100 / 100 Balance 219 / -11 -70 / -70 Intake: Intake, Oral Amount 120 / 590 30 / 30 Intake, Total IV Amount 100 / 200 Cefepime HCl 2 gm In 0.9 % 100 / 200 Sodium Chloride 100 ml @ 200 mls/hr IV Q12H [facility] Rx#:[id number] Output: Output, Urine Amount 100 / 100 Other: Number of Unmeasured Voids 0 Number of Bowel Movements 1 Weight 97.69 kg Patient Weight 08/11/25 23:59 Weight 97.69 kg Laboratory Results - last 24 hr 08/10/25 19:51: POC Glucose 268 H 08/11/25 05:27: WBC 7.3, RBC 2.61 L, Hgb 9.0 L, Hct 27.6 L, MCV 105.7 H, MCH 34.5 H, MCHC 32.6, RDW 15.0, Plt Count 114 L, MPV 10.7 H, Neut % (Auto) 74.9, Ly mph % (Auto) 14.3, Bradley % (Auto) 8.6, Eos % (Auto) 1.4, Baso % (Auto) 0.5, Neut # (Auto) 5.5, Lymph # (Auto) 1.1, Bradley # (Auto) 0.6, Eos # (Auto) 0.1, Baso # (Auto) 0.0, Sodium 128 L, Potassium 4.1, Chloride 94 L, Carbon Dioxide 27, Anion Gap 11.1, BUN 79 H, Creatinine 2.30 H, Estimated Creat Clear 36, Estimated GFR 21 L, Est GFR ( Amer) 26 L, Glucose 134 H, Calcium 9.0, Magnesium 2.0, Total Bilirubin 1.4 H, AST 37 H, ALT 24, Alkaline Phosphatase 191 H, C-Reactive Protein 121.2 H, Total Protein 7.0, Albumin 3.7, Globulin 3.3 H, Albumin/Globulin Ratio 1.1 08/11/25 06:06: POC Glucose 161 H 08/11/25 09:54: Ammonia 14 08/11/25 12:13: POC Glucose 208 H I & O for Labs for Last 24 Hours: Intake & Output 08/08/25 08/09/25 08/10/25 08/11/25 23:59 23:59 23:59 23:59 Intake Total 979.000 / 1219.000 840 / 1040 760 / 790 30 / 30 Output Total 2600 / 2600 1050 / 1450 801 / 801 100 / 100 Balance -1621.000 / -1381.000 -210 / -410 -41 / -11 -70 / -70 Weight 96.8 kg 95.481 kg 97.692 kg 97.69 kg Microbiology Reports for the Last 24 Hours: Microbiology 08/09/25 Unknown Bronchial Washings - Right Lower Lobe - Final 08/09/25 Unknown Bronchial Washings - Right Lower Lobe Acid Fast Bacilli Smear - Final 08/09/25 Unknown Transbronchial Biopsy - Right Lower Lobe - Final 08/09/25 Unknown Transbronchial Biopsy - Right Lower Lobe Acid Fast Bacilli Smear - Final 08/09/25 Unknown Transbronchial Biopsy - Right Lower Lobe Gram Stain - Final 08/09/25 Unknown Transbronchial Biopsy - Right Lower Lobe Surgical Biopsy Culture - Preliminary NO GROWTH AFTER 24 HOURS Constitutional: Present no acute distress, obese, chronically ill appearing and cooperative Head: Present atraumatic and normocephalic ENT: Present normal exam Neck: Present normal inspection Respiratory: Present decreased breath sounds and normal respiratory effort; Absent rhonchi, wheezes or crackles Cardiac: Present Reg Rate and Rhythm and No Murmur GI: Present soft and normal bowel sounds; Absent distention or tenderness Rectal (female): Present deferred (female): Present deferred Extremities: Present normal inspection, full ROM and edema (1+ to knees) Skin: Present intact; Absent erythema Neuro: Present Grossly Intact, alert, awake, oriented x 3 and moves all extremities Comment:: Twitching on exam, appears to be spontaneous and not conscious; consistent with akathisia. Almost asterixis like in her hands. Assessment and Plan *Assessment and plan (1) Pneumonia: Status: Acute Category: Medical Code(s): J18.9 - Pneumonia, unspecified organism (2) Acute heart failure with reduced ejection fraction (HFrEF): Status: Acute Category: Medical Code(s): I50.21 - Acute systolic (congestive) heart failure (3) Occult blood in stools: Status: Acute Category: Medical Code(s): R19.5 - Other fecal abnormalities (4) Presence of CardioMEMS HF system: Status: Acute Category: Medical Code(s): Z95.818 - Presence of other cardiac implants and grafts (5) A-fib: Status: Acute Qualifiers: Atrial fibrillation type: permanent Qualified Code(s): I48.21 - Permanent atrial fibrillation Category: Medical Code(s): I48.91 - Unspecified atrial fibrillation (6) Acute on chronic anemia: Status: Acute Category: Medical Code(s): D64.9 - Anemia, unspecified (7) CHF NYHA class IV (symptoms with any physical activity and at rest): Status: Acute Category: Medical Code(s): I50.9 - Heart failure, unspecified (8) Muscle twitching: Status: Acute Category: Medical Code(s): R25.3 - Fasciculation Plan Sara Edwards is a 70-year-old female with medical history significant for HFrEF 30% with grade 3 diastolic dysfunction with BiV ICD (being considered for transplant at ), CAD, A-fib, CKD stage IIIb, type 2 diabetes, seizure disorder, GERD who presents with dizziness, progressive weakness starting yesterday. Patient was recently at our facility for HFrEF exacerbation and early June, was discharged in stable condition. States that she was doing well, but has waxed and waned and feeling well. Has followed up with cardiology, being considered for heart transplant at due to refractory HFrEF. She states yesterday she started becoming more weak, dizzy, with headaches and chills. No known sick contacts. States she has chronic shortness of breath does not any worse, denies chest pain, but does endorse abdominal pain especially suprapubic. States she has been peeing much less, but is having normal bowel movements. Patient also does note that she has been having darker stools over the past few days. Workup in the ED significant for hemoglobin 9.0 (11.3 in in early June), BNP 3450, sodium 129, and positive FOBT. Given these findings ED provider discussed case with me and decided to admit patient for GI bleed, and further evaluation management of other symptoms. Slow improvement. Stable on room air. No fever. Worsening twitching/akathisia however. Make adjustments to medications today and see if these improve. Anticipate discharge in next day or 2. Diuresing well. Problems addressed as follows: #Weakness, dizziness #Suspected healthcare acquired pneumonia, present on admission ? Presented with weakness, dizziness, and in my initial evaluation he was stating she was feeling cold, and shivering in bed. ? Obtained CT chest 08/07/2025 which showed 5 cm right lower lobe pneumonia. Patient was hospitalized 4 weeks ago. Not producing sputum at this time. ? White blood cell count stable at 7.3. Hemoglobin 9.0. CRP improved from 220- 121. - Discussed case with pulmonology, recommend continuing cefepime and doxycycline pending culture results. Awaiting bronchoscopy samples. Culture pending. Anticipate transition to Levaquin if cultures remain negative. - Continue DuoNebs every 6 hours as needed. Continue supplemental oxygen as needed for goal sats above 90%. Stable on room air today. - Repeat chest x-ray ordered for the morning to monitor pneumonia #GI bleed #Macrocytic anemia ? Reported dark stools over the past few days prior to admission. On Xarelto for A-fib. Positive FOBT. ?Hemoglobin stable at 9. ? GI consulted, s/p EGD 08/08/2025 without active signs of bleeding. Revealed nonerosive GERD with moderate esophageal dysmotility and very small sliding 1 to 2 cm hiatal hernia, possible short segment Ray's esophagus, moderate portal hypertensive gastropathy. ? GI feels portal hypertensive gastropathy may be reason for positive FOBT. Recommended outpatient colonoscopy. ? Continue p.o. Protonix 40 mg. ? Iron panel, B12, folate normal. #Acute on chronic HFrEF 30% #Grade 3 diastolic dysfunction #BiV ICD #Hypertension #CAD #Possible early cardiogenic shock, resolved #CKD stage IIIb ? Patient does seem slightly volume overloaded, BNP 3450. Given advanced, progressive heart failure patient is being considered for heart transplant at . However, unclear if they are aware of cirrhosis diagnosis. ? Negative volume status since admission. Holding Bumex today. - Resume irbesartan 37.5 mg daily. - Creatinine at 2.3, BUN 79. Concern BUN is culprit in her twitching/akathisia. Will also evaluate ammonia for cirrhosis. Ammonia 14. -Repeat CBC, CMP, magnesium ordered for the morning. #Decompensated cirrhosis ? CT abdomen/pelvis reveals cirrhotic features, ascites, anasarca. Likely from fatty liver disease. Denies much alcohol use. ? INR 1.27, MELD 25. Further management per GI as an outpatient. ? Hold Bumex today. holding spironolactone due to soft pressures at this time. #A-fib ? Currently rate controlled. Continue home digoxin 125 mcg. Hold home Xarelto due to GI bleed. Consider restarting tomorrow after discussing with cardiology if hemoglobin continues to be stable. #Multinodal thyroid gland #Extrathyroid nodule 2 cm left ? Noted on CT chest. Will need further evaluation in outpatient basis. TFTs normal. #Type 2 diabetes ? Hemoglobin A1c 7.0% in June. ? [facility] glucose checks. ? Continue home long-acting insulin once appropriate. Blood sugars stable. #Seizure disorder ? Continue home phenobarbital. #GERD ? Continue PPI. #Obesity ? Complicates all aspects of care. Will hold duloxetine. Decrease gabapentin to renally dose at 300 mg twice daily. Monitor for improvement in twitching over the next 24 hours. Full code DVT prophylaxis: Resume Xarelto renally dosed at 15 mg daily.
[2025-08-11 14:30] LABS: Interpretation Notes (.); Lactase 10.98 (>/= 14.0); Maltase 277.9 (>/= 110.0); Palatinase 18.5 (>/= 8.5); Reference Notes (.); Sucrase 70.25 (>/= 25.0)
[2025-08-11 15:35] LABS: POC Glucose,Bedside 230 gm/dL (70-110)
--- NOTE | 2025-08-11 16:38 | HMH.SLDYSPHA ---
Speech & Language Evaluation Speech/Language Dysphagia Evaluation Start: 08/11/25 16:30 Freq: ONCE Status: Active Protocol: Document 08/11/25 16:30 ARASELI (Rec: 08/11/25 16:38 [id number] Dysphagia Assess/Goals/Plan Assessment Date of Evaluation: 08/11/25 Evaluation Type Initial Certification Assessment/Problems dysphagia concerns per MD order Does Patient Qualify No for Service Qualify/Failure Based on clinical observations made throughout CSE, Comment mastication/manipulation of bolus and swallowing appear to be WFL, no further skilled speech therapy services are warranted at this time. Recommendations PHYSICIAN CERTIFICATION: The specified therapy services are required, authorized, and reviewed every 30 days. Diet Recommendations Normal Liquid Type Normal/Thin Recommendations SL Swallow Alt bite w/sip thru meal,Standard Aspiration Prec.,Eat Guidelines at slow rate,Reflux precautions Dysphagia Swallow Sitting Upright (90 deg),Small Bites and Sips,Alternate Precautions/ Liquids/Solids Strategies Plan Pt/Guardian verbally Yes ack understanding of dx/prognosis/ goals G -code Required No Education Instructions Discussed results of CSE and diet recommendations, as provided well as aspiration risks/precautions and compensatory strategies with pt, family, and nursing all of which expressed understanding. TAX INTERN attempted to educate MD/ care management but they were unavailable at the time. Pt/Caregiver able to Able to recall/restate recall information Reinforcement needed No Speech & Language HPI History Present Illness Description of TAX INTERN pulled following information from H&P and chart Patient Problem review, Patient is a 70-year-old female with a history of heart failure with reduced ejection fraction with a pacemaker defibrillator in who presents today with generalized malaise. Also states has been having some mild bodyaches but is primarily just severely fatigued. No fevers or chills. Patient denies any other focal symptoms. States this a very consistent with symptoms she has had in the past associated with her heart failure. States that she has had an ejection fraction as low as 30% she is followed by Dr. Griffin with [facility] advanced heart failure specialist and is currently being worked up and evaluated for a possible heart transplant. States that she may be 7 pounds up from her dry weight but no significant respiratory distress lower extremity edema is near baseline. She states that she feels this way sometimes and also that she is chronically hypotensive. CXR reports Redemonstration of right perihilar masslike opacity. No pneumothorax. Language Primary Language German General Information General Current Food Regular,Thin Liquids Consistancy Dentition Good Dentition Patient Orientation Person,Place,Time,Situation Ability to Follow Good Directions Communication No Impairment Ability Dysphagia:Food Presentation Evaluation Food Type Pureed,Mechanical Soft,Regular,Liquid,Pudding Dysphagia Evaluation Pt was sitting upright on side of bed for CSE and was A Summary &Ox4. All bolus consistencies presented x2 to assess for consistency/fatigue. No overt s/sxs of aspiration were observed throughout. The following was trialed: thin liquid (ice chips, spoonful, open cup/straw sip, subsequent sips from open cup/straw), pudding, pureed applesauce, mechanical soft (nutrigrain bar), and regular (cristina cracker.) Based on mastication/ manipulation of bolus and swallow appearing to be WFL at bedside, pt is clear to continue on current diet of regular/thins no further skilled speech therapy services are warranted at this time. Stroke Dysphagia Assessment PHYSICIAN CERTIFICATION: I certify the specified therapy services for Sara Edwards are required, authorized, and reviewed every 30 days.
--- NOTE | 2025-08-11 16:39 | PC.NURSE ---
pt c/o left foot pain she says is related to her neuropathy. Pt is getting her usual dose of gabapentin. Patient has had several periods of confusion/disorientation today.
[2025-08-11 18:10] LABS: POC Glucose,Bedside 237 gm/dL (70-110)
[2025-08-11] MEDS: LEVOFLOXACIN/D5W 750 MG/150 ML 750 MG/150 ML PIGGYBACK 100 MG IV (19:21)
[2025-08-11 20:36] LABS: POC Glucose,Bedside 312 gm/dL (70-110)
[2025-08-11] MEDS: PHENOBARBITAL 32.4 MG 97.2 MG PO (20:38)
[2025-08-11] MEDS: GABAPENTIN 300MG CAPSULE 300 MG PO (20:38)
[2025-08-11] MEDS: PANTOPRAZOLE 40MG TABLET 40 MG PO (20:38)
[2025-08-11] MEDS: ROPINIROLE 1MG TABLET 2 MG PO (20:39)
[2025-08-12] VITALS (7 sets, daily range): BP systolic 103–120; BP diastolic 53–62; PULSE 70–83; RESP 15–27; TEMP 36.4–36.6; O2SAT 94–99; BMI 40.8
--- NOTE | 2025-08-12 05:13 | PC.NURSE ---
Pt alert and oriented with a couple episodes of confusion throughout the night. She has tolerated room air. She has received Iv abx. She ambulated to the bathroom with 1-2 assist with a walker. She was more unsteady on the most recent trip. She did complain of leg pain once and was medicated per JAN. No complaints at this time, call light within reach.
[2025-08-12 05:52] LABS: POC Glucose,Bedside 132 gm/dL (70-110)
[2025-08-12 05:57] LABS: Hematocrit 28.3 % (37.0-47.0); Hemoglobin 9.4 g/dL (12.2-16.2); Immature Granulocytes % 0.3 %; Mean Corpuscular HGB Conc 33.2 g/dL (31.8-35.4); Mean Corpuscular Hemoglobin 34.9 pg (27.0-31.2); Mean Corpuscular Volume 105.2 fl (81-99); Nucleated Red Blood Cells % 0 %; Platelet Count 111 K/mm3 (142-424); Red Blood Count 2.69 M/mm3 (4.20-5.40); Red Cell Distribution Width-SD 57.8 fL; White Blood Count 6.0 K/mm3 (4.8-10.8)
[2025-08-12 05:59] LABS: Alanine Aminotransferase 33 U/L (12-78); Albumin Level 3.7 g/dl (3.5-5.0); Albumin/Globulin Ratio 1.2 (1.1-1.8); Alkaline Phosphatase 220 U/L (38-126); Anion Gap 13.0 mEq/L (5-15); Aspartate Amino Transferase 46 U/L (14-36); Bilirubin,Total 1.2 mg/dl (0.2-1.3); Calcium 9.0 mg/dl (8.4-10.2); Carbon Dioxide 25 mmol/L (22.0-30.0); Chloride 95 mmol/L (98-107); Creatinine Clearance Estimated 35 mL/min (50-200); Creatinine,Serum 2.40 mg/dl (0.52-1.04); Estimated Glomerular Filt Rate 20 ml/min (>60); GFR (African American) 24 ML/MIN (>60); Globulin 3.2 g/dL (1.3-3.2); Glucose 129 mg/dl (74-100); Magnesium 1.8 mg/dl (1.6-2.3); Potassium 5.0 mmoL/L (3.5-5.1); Sodium 128 mmol/L (136-145); Total Protein,Serum 6.9 g/dl (6.3-8.2)
[2025-08-12 06:06] LABS: Blood Urea Nitrogen 84 mg/dl (7-17)
[2025-08-12] MEDS: HYDROCODONE/APAP 5/325 MG TABLET 1 TAB PO ×3 (06:45→20:03)
[2025-08-12 07:30] LABS: C-Reactive Protein 86.9 mg/L (0-4)
[2025-08-12] MEDS: DIGOXIN 0.125MG TABLET 125 MCG PO (10:00)
[2025-08-12] MEDS: IRBESARTAN 75MG TABLET 37.5 MG PO (10:00)
[2025-08-12] MEDS: GABAPENTIN 300MG CAPSULE 300 MG PO ×3 (10:01→20:48)
[2025-08-12] MEDS: DOXYCYCLINE HYCL 100 MG TABLET PO (10:02)
[2025-08-12] MEDS: humaLOG 100 UNITS/ML 10ML VIAL (SSI) SUBCUT ×3 (11:56→20:55)
--- NOTE | 2025-08-12 12:00 | EXP.CARD.PN ---
Subjective Subjective Date: 08/12/25 Time: 12:00 Principal diagnosis: Pneumonia, CHF, weakness, anemia Interval history: 70-year-old white female tearful while sitting in bedside chair. Seems uncomfortable as constant fidgeting and twitching which she attributes to severe pain from her peripheral neuropathy in her feet. This has gotten worse since having to reduce her gabapentin due to worsening renal function. Pain medication only makes the discomfort slightly more tolerable with no significant reduction in pain. Breathing seems to be okay although she does have some noticeable generalized edema despite significant diuresis in worsening renal functions. Exam Data for Last 24 hours Vital signs and Labs for Last 24 Hours: Temp Pulse Resp BP Pulse Ox O2 Del Method O2 Flow Rate 97.6 F 74 18 103/53 L 98 Room Air 2 08/12/25 08:00 08/12/25 10:00 08/12/25 08:00 08/12/25 08:00 08/12/25 08:00 08/12/25 08:00 08/11/25 05:00 Laboratory Results - last 24 hr 08/08/25 13:29: Tissue Lactase 10.98 A, Tissue Maltase 277.9, Tissue Palatinase 18.5, Tissue Sucrase 70.25 08/10/25 16:49: POC Glucose 230 H 08/11/25 12:13: POC Glucose 208 H 08/11/25 18:00: POC Glucose 237 H 08/11/25 20:29: POC Glucose 312 H* 08/12/25 05:37: WBC 6.0, RBC 2.69 L, Hgb 9.4 L, Hct 28.3 L, MCV 105.2 H, MCH 34.9 H, MCHC 33.2, RDW 15.0, Plt Count 111 L, MPV 10.4, Neut % (Auto) 67.1, Lymph % (Auto) 17.4, Mcdonald % (Auto) 11.6 H, Eos % (Auto) 2.9, Baso % (Auto) 0.7, Neut # (Auto) 4.0, Lymph # (Auto) 1.0, Mcdonald # (Auto) 0.7, Eos # (Auto) 0.2, Baso # (Auto) 0.0, Sodium 128 L, Potassium 5.0 D, Chloride 95 L, Carbon Dioxide 25, Anion Gap 13.0, BUN 84 H, Creatinine 2.40 H, Estimated Creat Clear 35, Estimated GFR 20 L, Est GFR ( Amer) 24 L, Glucose 129 H, Calcium 9.0, Magnesium 1.8, Total Bilirubin 1.2, AST 46 H, ALT 33 D, Alkaline Phosphatase 220 H, C-Reactive Protein 86.9 H D, Total Protein 6.9, Albumin 3.7, Globulin 3.2, Albumin/Globulin Ratio 1.2 08/12/25 05:42: POC Glucose 132 H I & O for Last 24 hours: Intake & Output 08/10/25 08/11/25 08/12/25 08/13/25 11:59 11:59 11:59 11:59 Intake Total 700 / 700 590 / 590 670 / 670 Output Total 1350 / 1350 101 / 101 650 / 650 Balance -650 / -650 489 / 489 Weight 215 lb 6 oz 215 lb 5.913 oz 216 lb 4.375 oz Microbiology Reports for the Last 24 Hours: Microbiology 08/09/25 Unknown Transbronchial Biopsy - Right Lower Lobe Gram Stain - Final 08/09/25 Unknown Transbronchial Biopsy - Right Lower Lobe Surgical Biopsy Culture - Preliminary NO GROWTH AFTER 72 HOURS 08/09/25 Unknown Bronchial Washings - Right Lower Lobe Gram Stain - Final 08/09/25 Unknown Bronchial Washings - Right Lower Lobe Bronchoalveolar Lavage Culture - Final NO GROWTH AFTER 48 HOURS 08/07/25 17:45 Blood Blood Culture - Preliminary NO GROWTH AFTER 4 DAYS 08/07/25 17:55 Blood Blood Culture - Preliminary NO GROWTH AFTER 4 DAYS 08/09/25 Unknown Bronchial Washings - Right Lower Lobe - Final 08/09/25 Unknown Bronchial Washings - Right Lower Lobe Acid Fast Bacilli Smear - Final 08/09/25 Unknown Transbronchial Biopsy - Right Lower Lobe - Final 08/09/25 Unknown Transbronchial Biopsy - Right Lower Lobe Acid Fast Bacilli Smear - Final Constitutional Constitutional: moderate distress *Routine Respiratory Exam Respiratory: Present CTA bilaterally *Routine Cardiovascular Exam Cardiovascular: Present irregularly irregular *Routine Extremities Exam Extremities: Present edema *Routine Neurological Exam Neurological: Present alert, oriented X3 and CN II-XII intact Progress Note: A&P Assessment and plan (1) Pneumonia: Status: Acute (2) Acute heart failure with reduced ejection fraction (HFrEF): Status: Acute (3) Occult blood in stools: Status: Acute (4) Presence of CardioMEMS HF system: Status: Acute (5) A-fib: Status: Acute (6) Acute on chronic anemia: Status: Acute (7) CHF NYHA class IV (symptoms with any physical activity and at rest): Status: Acute (8) Muscle twitching: Status: Acute (9) Acute respiratory failure with hypoxia: Status: Acute (10) Acute on chronic systolic heart failure: Status: Acute (11) Anticoagulated: Status: Acute (12) Acute on chronic renal failure: Status: Acute (13) Type 2 diabetes mellitus with peripheral neuropathy: Status: Acute (14) Presence of cardiac resynchronization therapy defibrillator (WO[employer]KER-D): Status: Acute (15) HLD (hyperlipidemia): Status: Chronic (16) History of implanted electronic device: Problem details: Cardiac contractility modulator implant (IMPULSE) SEP 2022 Status: Chronic Assessment and Plan Assessment and Plan for All Diagnoses:: 1. Acute on chronic HFrEF -clinically improved with aggressive diuresis initially (still with output of over 2 liters without diuretics for 2 days) -holding diuretics now due to acute on chronic CKD -echo this admit shows improved EF 40-45% 2. GI bleed with acute on chronic anemia - EGD this admission showed portal hypertensive gastropathy as possible etiology for heme positive stool -Hgb up to 9.4 3. Acute on chronic CKD, baseline creatinine 1.5-1.8 -current creatinine 2.4 with BUN 80 4. History of hypertension -On low Dose ARB -BP borderline low but stable 5. Hyperlipidemia -On statin therapy 6. Chronic A-fib -Xarelto restarted at 15 mg daily on 08/11/2025 -On digoxin with normal level -metoprolol on hold due to low BP 7. Type 2 diabetes mellitus with peripheral neuropathy - On insulin 8. WOOD D[employer] MA[employer]ER-D in situ -Download, 07/19/2025, 100% AFib, BiV paced 100% 9. CCM in situ 10. CardioMEMS in situ and monitored by -Recent readings increased suggesting worsening CHF prior to admission 11. Pneumonia -Pulmonary consulted, bronchoscopy performed 08/09/2025, cultures/results pending -On levofloxacin 12. CAD with [facility] 06/2024 showing diffuse, mild CAD and LVEDP 20 mm Hg 13. Chronic hyponatremia, stable at 128 Patient seems stable from cardiac standpoint for discharge home when Dr. Liu is ready. Biggest issue seems to be pain from peripheral neuropathy in feet. Follow-up in our office next week with BMP and CBC. Home medication recommendations: Atorvastatin 40 mg daily Digoxin 0.125 mg daily Valsartan 40 mg daily Xarelto 15 mg daily (new dose) Stop metoprolol, lasix, spironolactone, potassium, metolazone, isosorbide and Jardiance for now with plans to consider restarting as outpatient.
[2025-08-12 12:05] LABS: POC Glucose,Bedside 203 gm/dL (70-110)
--- NOTE | 2025-08-12 13:04 | EXP.ACUTE.PN ---
Subjective *Date: 08/12/25 *Time: 19:05 Interval history: Patient somewhat more confused this morning. Appears more fatigued. After awakening, was able to answer questions slowly but appropriately. Sister at bedside. Still having some loose stools after her dose of lactulose yesterday. Complaining of leg pain and neuropathy. Did not sleep well because of leg pain. Medical Exam Vital signs and Labs for Last 24 Hours: Vital Signs Temp Pulse Pulse Resp BP Pulse Ox O2 Del Method 08/12/25 10:00 74 08/12/25 08:00 70 08/12/25 08:00 97.6 F 74 18 103/53 L 98 Room Air 08/12/25 06:56 Room Air 08/12/25 05:00 Room Air 08/12/25 04:00 70 08/12/25 04:00 97.7 F 83 27 H 111/59 L 94 L Room Air 08/12/25 03:00 Room Air 08/12/25 01:00 Room Air 08/12/25 00:00 70 08/12/25 00:00 97.5 F L 70 16 106/61 L 97 Room Air 08/11/25 23:00 Room Air 08/11/25 21:00 Room Air 08/11/25 20:00 70 08/11/25 20:00 97.4 F L 70 16 106/61 L 98 Room Air 08/11/25 16:19 Room Air 08/11/25 16:00 70 08/11/25 16:00 65 18 98/53 L 96 Room Air 08/11/25 15:00 Room Air 08/11/25 13:53 70 Intake and Output 08/11/25 08/12/25 08/12/25 23:59 07:59 15:59 Intake Total 250 / 580 300 / 420 120 / 420 Output Total 300 / 400 350 / 350 Balance -50 / 180 -50 / 70 120 / 70 Intake: Intake, Oral Amount 300 / 420 120 / 420 Intake, Total IV Amount 250 / 250 Cefepime HCl 2 gm In 0.9 % 100 / 100 Sodium Chloride 100 ml @ 200 mls/hr IV Q12H [facility] Rx#:[id number] Levofloxacin/D5w 750 mg/150 ml 150 / 150 750 mg In 150 ml @ 100 mls/hr IV Q48H [facility]IL Rx#:[id number] Output: Output, Urine Amount 300 / 400 350 / 350 Other: Number of Unmeasured Voids 1 Number of Bowel Movements 1 Weight 98.1 kg Patient Weight 08/12/25 23:59 Weight 98.1 kg Laboratory Results - last 24 hr 08/08/25 13:29: Tissue Lactase 10.98 A, Tissue Maltase 277.9, Tissue Palatinase 18.5, Tissue Sucrase 70.25 08/10/25 16:49: POC Glucose 230 H 08/11/25 18:00: POC Glucose 237 H 08/11/25 20:29: POC Glucose 312 H* 08/12/25 05:37: WBC 6.0, RBC 2.69 L, Hgb 9.4 L, Hct 28.3 L, MCV 105.2 H, MCH 34.9 H, MCHC 33.2, RDW 15.0, Plt Count 111 L, MPV 10.4, Neut % (Auto) 67.1, Lymph % (Auto) 17.4, Preston % (Auto) 11.6 H, Eos % (Auto) 2.9, Baso % (Auto) 0.7, Neut # (Auto) 4.0, Lymph # (Auto) 1.0, Preston # (Auto) 0.7, Eos # (Auto) 0.2, Baso # (Auto) 0.0, Sodium 128 L, Potassium 5.0 D, Chloride 95 L, Carbon Dioxide 25, Anion Gap 13.0, BUN 84 H, Creatinine 2.40 H, Estimated Creat Clear 35, Estimated GFR 20 L, Est GFR ( Amer) 24 L, Glucose 129 H, Calcium 9.0, Magnesium 1.8, Total Bilirubin 1.2, AST 46 H, ALT 33 D, Alkaline Phosphatase 220 H, C-Reactive Protein 86.9 H D, Total Protein 6.9, Albumin 3.7, Globulin 3.2, Albumin/Globulin Ratio 1.2 08/12/25 05:42: POC Glucose 132 H 08/12/25 11:52: POC Glucose 203 H I & O for Labs for Last 24 Hours: Intake & Output 08/09/25 08/10/25 08/11/25 08/12/25 23:59 23:59 23:59 23:59 Intake Total 840 / 1040 760 / 790 280 / 580 420 / 420 Output Total 1050 / 1450 801 / 801 400 / 400 350 / 350 Balance -210 / -410 -41 / -11 -120 / 180 70 / 70 Weight 95.481 kg 97.692 kg 97.69 kg 98.1 kg Microbiology Reports for the Last 24 Hours: Microbiology 08/09/25 Unknown Transbronchial Biopsy - Right Lower Lobe Gram Stain - Final 08/09/25 Unknown Transbronchial Biopsy - Right Lower Lobe Surgical Biopsy Culture - Preliminary NO GROWTH AFTER 72 HOURS 08/09/25 Unknown Bronchial Washings - Right Lower Lobe Gram Stain - Final 08/09/25 Unknown Bronchial Washings - Right Lower Lobe Bronchoalveolar Lavage Culture - Final NO GROWTH AFTER 48 HOURS 08/07/25 17:45 Blood Blood Culture - Preliminary NO GROWTH AFTER 4 DAYS 08/07/25 17:55 Blood Blood Culture - Preliminary NO GROWTH AFTER 4 DAYS 08/09/25 Unknown Bronchial Washings - Right Lower Lobe - Final 08/09/25 Unknown Bronchial Washings - Right Lower Lobe Acid Fast Bacilli Smear - Final 08/09/25 Unknown Transbronchial Biopsy - Right Lower Lobe - Final 08/09/25 Unknown Transbronchial Biopsy - Right Lower Lobe Acid Fast Bacilli Smear - Final Constitutional: Present mild distress, obese, chronically ill appearing and cooperative Head: Present atraumatic and normocephalic ENT: Present normal exam Neck: Present normal inspection Respiratory: Present decreased breath sounds and normal respiratory effort; Absent rhonchi, wheezes or crackles Cardiac: Present Reg Rate and Rhythm and No Murmur GI: Present soft and normal bowel sounds; Absent distention or tenderness Rectal (female): Present deferred (female): Present deferred Extremities: Present normal inspection, full ROM and edema (1+ to knees) Skin: Present intact; Absent erythema Neuro: Present Grossly Intact, alert, awake, oriented x 3 and moves all extremities Comment:: Twitching on exam, appears somewhat more confused today. Slower to respond. Not her normal mentation compared to previous days. Was difficult to arouse or awaken on rounds. Assessment and Plan *Assessment and plan (1) Pneumonia: Status: Acute Category: Medical Code(s): J18.9 - Pneumonia, unspecified organism (2) Acute heart failure with reduced ejection fraction (HFrEF): Status: Acute Category: Medical Code(s): I50.21 - Acute systolic (congestive) heart failure (3) Occult blood in stools: Status: Acute Category: Medical Code(s): R19.5 - Other fecal abnormalities (4) Presence of CardioMEMS HF system: Status: Acute Category: Medical Code(s): Z95.818 - Presence of other cardiac implants and grafts (5) A-fib: Status: Acute Qualifiers: Atrial fibrillation type: permanent Qualified Code(s): I48.21 - Permanent atrial fibrillation Category: Medical Code(s): I48.91 - Unspecified atrial fibrillation (6) Acute on chronic anemia: Status: Acute Category: Medical Code(s): D64.9 - Anemia, unspecified (7) CHF NYHA class IV (symptoms with any physical activity and at rest): Status: Acute Category: Medical Code(s): I50.9 - Heart failure, unspecified (8) Muscle twitching: Status: Acute Category: Medical Code(s): R25.3 - Fasciculation Plan Sara Edwards is a 70-year-old female with medical history significant for HFrEF 30% with grade 3 diastolic dysfunction with BiV ICD (being considered for transplant at ), CAD, A-fib, CKD stage IIIb, type 2 diabetes, seizure disorder, GERD who presents with dizziness, progressive weakness starting yesterday. Patient was recently at our facility for HFrEF exacerbation and early June, was discharged in stable condition. States that she was doing well, but has waxed and waned and feeling well. Has followed up with cardiology, being considered for heart transplant at due to refractory HFrEF. She states yesterday she started becoming more weak, dizzy, with headaches and chills. No known sick contacts. States she has chronic shortness of breath does not any worse, denies chest pain, but does endorse abdominal pain especially suprapubic. States she has been peeing much less, but is having normal bowel movements. Patient also does note that she has been having darker stools over the past few days. Workup in the ED significant for hemoglobin 9.0 (11.3 in in early June), BNP 3450, sodium 129, and positive FOBT. Given these findings ED provider discussed case with me and decided to admit patient for GI bleed, and further evaluation management of other symptoms. Slow improvement. Stable on room air. No fever. Worsening twitching/akathisia however. Make adjustments to medications today and see if these improve. Anticipate discharge in next day or 2. Diuresing well. Problems addressed as follows: #Weakness, dizziness #Suspected healthcare acquired pneumonia, present on admission ? Presented with weakness, dizziness, and in my initial evaluation he was stating she was feeling cold, and shivering in bed. ? Obtained CT chest 08/07/2025 which showed 5 cm right lower lobe pneumonia. Patient was hospitalized 4 weeks ago. Not producing sputum at this time. ? White count remained stable at 6.8. Stable on room air. Hemoglobin improving at 9.4. CRP improved to 86. - Continue levofloxacin, day 6 of 7 today. - Cultures remain negative - Continue DuoNebs every 6 hours as needed. Continue supplemental oxygen as needed for goal sats above 90%. Stable on room air today. #GI bleed #Macrocytic anemia ? Reported dark stools over the past few days prior to admission. On Xarelto for A-fib. Positive FOBT. ?Hemoglobin stable at 9.4 ? GI consulted, s/p EGD 08/08/2025 without active signs of bleeding. Revealed nonerosive GERD with moderate esophageal dysmotility and very small sliding 1 to 2 cm hiatal hernia, possible short segment Ray's esophagus, moderate portal hypertensive gastropathy. ? GI feels portal hypertensive gastropathy may be reason for positive FOBT. Recommended outpatient colonoscopy. ? Continue p.o. Protonix 40 mg. ? Iron panel, B12, folate normal. #Acute on chronic HFrEF 30% #Grade 3 diastolic dysfunction #BiV ICD #Hypertension #CAD #Possible early cardiogenic shock, resolved #CKD stage IIIb ? Patient does seem slightly volume overloaded, BNP 3450. Given advanced, progressive heart failure patient is being considered for heart transplant at . However, unclear if they are aware of cirrhosis diagnosis. ? Negative volume status since admission. Holding Bumex today. - Continue irbesartan 37.5 mg daily. - Creatinine remains elevated 2.4, BUN 84. Given her abnormal kidney function, concerned that she having a difficult time clearing metabolites and medications. Adding to some confusion. Suspect toxic encephalopathy from medications. - Will hold her phenobarbital today and ropinirole.- Creatinine at 2.3, BUN 79. Concern BUN is culprit in her twitching/akathisia. Will also evaluate ammonia for cirrhosis. Ammonia 14. -Repeat CBC, CMP, magnesium ordered for the morning. #Decompensated cirrhosis ? CT abdomen/pelvis reveals cirrhotic features, ascites, anasarca. Likely from fatty liver disease. Denies much alcohol use. ? INR 1.27, MELD 25. Further management per GI as an outpatient. ? Hold Bumex today. holding spironolactone due to soft pressures at this time. #A-fib ? Currently rate controlled. Continue home digoxin 125 mcg. Hold home Xarelto due to GI bleed. Consider restarting tomorrow after discussing with cardiology if hemoglobin continues to be stable. #Multinodal thyroid gland #Extrathyroid nodule 2 cm left ? Noted on CT chest. Will need further evaluation in outpatient basis. TFTs normal. #Type 2 diabetes ? Hemoglobin A1c 7.0% in June. ? [facility] glucose checks. ? Continue home long-acting insulin once appropriate. Blood sugars stable. #Seizure disorder ? Holding due to worsening mentation: phenobarbital. #GERD: Continue PPI. #Obesity: Complicates all aspects of care. Will hold duloxetine. Decrease gabapentin to renally dose at 300 mg 3 times a day, discontinue phenobarbital, discontinue ropinirole. Monitor for improvement in twitching over the next 24 hours. Full code DVT prophylaxis: Resume Xarelto renally dosed at 15 mg daily.
[2025-08-12] MEDS: PANTOPRAZOLE 40MG TABLET 40 MG PO (20:49)
[2025-08-12 21:09] LABS: POC Glucose,Bedside 275 gm/dL (70-110)
[2025-08-13] VITALS: BP 112/56; PULSE 70; RESP 12; TEMP 36.5; O2SAT 97
[2025-08-13 04:00] VITALS: BP 106/58; PULSE 70; RESP 12; TEMP 36.5; O2SAT 97; BMI 40.8
[2025-08-13] MEDS: HYDROCODONE/APAP 5/325 MG TABLET 1 TAB PO ×3 (04:11→13:04)
[2025-08-13 05:34] VITALS: PULSE 70
[2025-08-13 06:28] LABS: Hematocrit 25.5 % (37.0-47.0); Hemoglobin 8.8 g/dL (12.2-16.2); Immature Granulocytes % 0.9 %; Mean Corpuscular HGB Conc 34.5 g/dL (31.8-35.4); Mean Corpuscular Hemoglobin 35.5 pg (27.0-31.2); Mean Corpuscular Volume 102.8 fl (81-99); Nucleated Red Blood Cells % 0 %; Platelet Count 116 K/mm3 (142-424); Red Blood Count 2.48 M/mm3 (4.20-5.40); Red Cell Distribution Width-SD 55.2 fL; White Blood Count 7.0 K/mm3 (4.8-10.8)
[2025-08-13] MEDS: humaLOG 100 UNITS/ML 10ML VIAL (SSI) SUBCUT ×2 (06:28→11:55)
[2025-08-13 06:39] LABS: Albumin Level 3.3 g/dl (3.5-5.0); Chloride 96 mmol/L (98-107); Potassium 4.3 mmoL/L (3.5-5.1); Sodium 129 mmol/L (136-145)
[2025-08-13 06:42] LABS: Alanine Aminotransferase 24 U/L (12-78); Albumin/Globulin Ratio 1.1 (1.1-1.8); Alkaline Phosphatase 203 U/L (38-126); Anion Gap 14.3 mEq/L (5-15); Aspartate Amino Transferase 36 U/L (14-36); Bilirubin,Total 1.0 mg/dl (0.2-1.3); Calcium 8.9 mg/dl (8.4-10.2); Carbon Dioxide 23 mmol/L (22.0-30.0); Creatinine Clearance Estimated 42 mL/min (50-200); Creatinine,Serum 2.00 mg/dl (0.52-1.04); Estimated Glomerular Filt Rate 25 ml/min (>60); GFR (African American) 30 ML/MIN (>60); Globulin 3.0 g/dL (1.3-3.2); Glucose 136 mg/dl (74-100); Total Protein,Serum 6.3 g/dl (6.3-8.2)
[2025-08-13 06:43] LABS: Magnesium 2.0 mg/dl (1.6-2.3)
[2025-08-13 07:11] LABS: Blood Urea Nitrogen 85 mg/dl (7-17)
--- NOTE | 2025-08-13 07:39 | EXP.DC.SUM ---
General Admission date:: 08/07/25 Discharge date: 08/13/25 HPI HPI HPI: Sara Edwards is a 70-year-old female with medical history significant for HFrEF 30% with grade 3 diastolic dysfunction with BiV ICD (being considered for transplant at ), CAD, A-fib, CKD stage IIIb, type 2 diabetes, seizure disorder, GERD who presents with dizziness, progressive weakness starting yesterday. Patient was recently at our facility for HFrEF exacerbation and early June, was discharged in stable condition. States that she was doing well, but has waxed and waned and feeling well. Has followed up with cardiology, being considered for heart transplant at due to refractory HFrEF. She states yesterday she started becoming more weak, dizzy, with headaches and chills. No known sick contacts. States she has chronic shortness of breath does not any worse, denies chest pain, but does endorse abdominal pain especially suprapubic. States she has been peeing much less, but is having normal bowel movements. Patient also does note that she has been having darker stools over the past few days. Workup in the ED significant for hemoglobin 9.0 (11.3 in in early June), BNP 3450, sodium 129, and positive FOBT. Given these findings ED provider discussed case with me and decided to admit patient for GI bleed, and further evaluation management of other symptoms. Hospital Course Hospital Course Hospital Course: Sara Edwards is a 70-year-old female with medical history significant for HFrEF 30% with grade 3 diastolic dysfunction with BiV ICD (being considered for transplant at ), CAD, A-fib, CKD stage IIIb, type 2 diabetes, seizure disorder, GERD who presents with dizziness, progressive weakness starting yesterday. Patient was recently at our facility for HFrEF exacerbation and early June, was discharged in stable condition. States that she was doing well, but has waxed and waned and feeling well. Has followed up with cardiology, being considered for heart transplant at due to refractory HFrEF. She states yesterday she started becoming more weak, dizzy, with headaches and chills. No known sick contacts. States she has chronic shortness of breath does not any worse, denies chest pain, but does endorse abdominal pain especially suprapubic. States she has been peeing much less, but is having normal bowel movements. Patient also does note that she has been having darker stools over the past few days prior to admission. Workup in the ED significant for hemoglobin 9.0 (11.3 in in early June), BNP 3450, sodium 129, and positive FOBT. Given these findings ED provider discussed case with me and decided to admit patient for GI bleed, and further evaluation management of other symptoms. Slow improvement. Remained stable on room air for over 48 hours prior to discharge. Twitching developed during admission, got better with adjustment in dose of her phenobarbital and holding her ropinirole along with renally dosing her gabapentin. Stable to discharge home. Recommend follow-up with providers including PCP, cardiology, GI, and pulmonology. Problems addressed as follows: #Weakness, dizziness #Suspected healthcare acquired pneumonia, present on admission, ruled in ? Presented with weakness, dizziness, and in my initial evaluation he was stating she was feeling cold, and shivering in bed. Obtained CT chest 08/07/2025 which showed 5 cm right lower lobe pneumonia. Patient was hospitalized 4 weeks ago. Not producing sputum at this time. Pulmonology was consulted, bronchoscopy performed with cultures taken. No growth by time of discharge. White count remains stable at during admission. Able to wean from supplemental oxygen to room air by day of discharge. Inflammatory markers peaked above 200 with CRP, showing improvement 86 by day of discharge. Initiated on broad-spectrum antibiotics, weaned to Levaquin to discharge home with. Will give additional dose renally dosed 2 days after discharge to complete 10 days of therapy. Continue to follow BAL cultures after discharge. Continue DuoNebs as needed at home. Stable on room air for 48 hours prior to discharge home. #GI bleed #Macrocytic anemia ? Reported dark stools over the past few days prior to admission. On Xarelto for A-fib. Positive FOBT. Hemoglobin remained stable around 9 throughout admission. GI consulted, s/p EGD 08/08/2025 without active signs of bleeding. Revealed nonerosive GERD with moderate esophageal dysmotility and very small sliding 1 to 2 cm hiatal hernia, possible short segment Ray's esophagus, moderate portal hypertensive gastropathy. GI feels portal hypertensive gastropathy may be reason for positive FOBT. Recommended outpatient colonoscopy. Continue p.o. Protonix 40 mg. Iron panel, B12, folate normal. Adjusted dose of Xarelto on day of discharge due to necessity for anticoagulation with her A-fib. Would benefit from repeat CBC, CMP, magnesium and follow-up with cardiology or primary care in the next week. #Acute on chronic HFrEF 30% #Grade 3 diastolic dysfunction #BiV ICD #Hypertension #CAD #Possible early cardiogenic shock, resolved #CKD stage IIIb ? Patient does seem slightly volume overloaded, BNP 3450. Given advanced, progressive heart failure patient is being considered for heart transplant at . However, unclear if they are aware of cirrhosis diagnosis. Negative volume status since admission. Daily adjustments made to diuretic. With her doing better. Appears euvolemic on day of discharge. No oxygen requirement for over 48 hours prior to discharge. Resume Bumex 2 mg daily on day of discharge, digoxin 125 mcg daily, metolazone is on at this time. Continue metoprolol succinate 12.5 mg daily, spironolactone 25 mg twice daily, and valsartan 40 mg daily. - Kidney function had bumped during admission but remained stable for few days prior to discharge. BUN 85, creatinine 2.0 on day of discharge. Repeat labs as above at follow-up recommended #Compensated cirrhosis: CT abdomen/pelvis reveals cirrhotic features, ascites, anasarca. Likely from fatty liver disease. Denies much alcohol use. INR 1.27, MELD 25. Further management per GI as an outpatient. #A-fib: Currently rate controlled. Continue home digoxin 125 mcg. Transition to Xarelto 15 mg daily. #Multinodal thyroid gland #Extrathyroid nodule 2 cm left ? Noted on CT chest. Will need further evaluation in outpatient basis. TFTs normal. #Type 2 diabetes ? Hemoglobin A1c 7.0% in June. Treated with sliding scale insulin during admission. Resume home regimen at discharge. Blood sugars controlled during admission. #Seizure disorder ?Concern that phenobarbital was a culprit in her altered mental status and twitching that she developed during admission with kidney function worsening. Phenobarbital was held for 24 hours, dose decreased to 1-1/2 tablets (48.6 mg nightly). Has not had a seizure in over 40 years. If tolerates decreased dose, consider further weaning over the coming month due to risk for metabolite buildup in the setting of patient's kidney dysfunction and cirrhosis. #GERD: Continue PPI. #Obesity: Complicates all aspects of care. Total time spent on discharge 40 minutes in counseling, documentation, chart review, and direct care with patient. Exam Data for Last 24 hours Vital signs and Labs for Last 24 Hours: Temp Pulse Resp BP Pulse Ox O2 Del Method O2 Flow Rate 97.7 F 70 12 106/58 L 97 Room Air 2 08/13/25 04:00 08/13/25 05:34 08/13/25 04:00 08/13/25 04:00 08/13/25 04:00 08/13/25 04:00 08/11/25 05:00 Laboratory Results - last 24 hr 08/08/25 13:56: Uweea-5-Ayusyxkbmbi 199 H, Alpha-1-AT Phenotype Mm 08/12/25 11:52: POC Glucose 203 H 08/12/25 20:47: POC Glucose 275 H 08/13/25 06:08: WBC 7.0, RBC 2.48 L, Hgb 8.8 L, Hct 25.5 L, MCV 102.8 H, MCH 35.5 H, MCHC 34.5, RDW 14.6, Plt Count 116 L, MPV 10.6 H, Neut % (Auto) 72.4, Lymph % (Auto) 14.6, [place] % (Auto) 8.7, Eos % (Auto) 2.7, Baso % (Auto) 0.7, Neut # (Auto) 5.1, Lymph # (Auto) 1.0, [place] # (Auto) 0.6, Eos # (Auto) 0.2, Baso # (Auto) 0.1, Sodium 129 L, Potassium 4.3, Chloride 96 L, Carbon Dioxide 23, Anion Gap 14.3, BUN 85 H, Creatinine 2.00 H, Estimated Creat Clear 42, Estimated GFR 25 L, Est GFR ( Amer) 30 L D, Glucose 136 H, Calcium 8.9, Magnesium 2.0 D, Total Bilirubin 1.0, AST 36, ALT 24 D, Alkaline Phosphatase 203 H, Total Protein 6.3, Albumin 3.3 L D, Globulin 3.0, Albumin/Globulin Ratio 1.1 I & O for Last 24 hours: Intake & Output 08/10/25 08/11/25 08/12/25 08/13/25 23:59 23:59 23:59 23:59 Intake Total 760 / 790 280 / 580 900 / 900 Output Total 801 / 801 400 / 400 350 / 590 240 / 240 Balance -41 / -11 -120 / 180 550 / 310 -240 / -240 Weight 97.692 kg 97.69 kg 98.1 kg 98.1 kg Microbiology Reports for the Last 24 Hours: Microbiology 08/09/25 Unknown Transbronchial Biopsy - Right Lower Lobe Gram Stain - Final 08/09/25 Unknown Transbronchial Biopsy - Right Lower Lobe Surgical Biopsy Culture - Preliminary NO GROWTH AFTER 4 DAYS 08/07/25 17:55 Blood Blood Culture - Final NO GROWTH AFTER 5 DAYS 08/07/25 17:45 Blood Blood Culture - Final NO GROWTH AFTER 5 DAYS 08/09/25 Unknown Bronchial Washings - Right Lower Lobe Gram Stain - Final 08/09/25 Unknown Bronchial Washings - Right Lower Lobe Bronchoalveolar Lavage Culture - Final NO GROWTH AFTER 48 HOURS Constitutional Constitutional: no acute distress, morbidly obese, chronically ill appearing and cooperative Comments: looking/feeling better *Routine HEENT Exam Head: Present normocephalic and atraumatic Eye: Present EOMI and PERRL ENT: Present mucous membranes moist *Routine Neck Exam Neck: Present supple *Routine Respiratory Exam Respiratory: Present CTA bilaterally; Absent accessory muscle use, rhonchi, stridor, wheezes or crackles *Routine Cardiovascular Exam Cardiovascular: Present RRR, Normal S1 and Normal S2; Absent murmur, gallop or rubs *Routine Abdominal Exam Abdominal: Present soft; Absent tenderness *Routine Rectal Exam Patient deferred: visual exam *Routine Exam Patient deferred: external exam *Routine Extremities Exam Extremities: Present edema (1+ to knees bilateral lower extremities) and pulses intact; Absent cyanosis *Routine Skin Exam Skin: Present intact; Absent erythema or wounds *Routine Neurological Exam Neurological: Present alert, oriented X3 and moving all extremities; Absent altered mental status Comments: Significant improvement in akathesia/tremor. Not resolved but better Routine Psychiatric Exam Psychiatric: Present cooperative and depressed Results Data Completed and Pending Labs on day of discharge: Labs from last 24 hours 08/13/25 08/12/25 08/12/25 06:08 20:47 11:52 WBC 7.0 RBC 2.48 L Hgb 8.8 L Hct 25.5 L MCV 102.8 H MCH 35.5 H MCHC 34.5 RDW 14.6 Plt Count 116 L MPV 10.6 H Neut % (Auto) 72.4 Lymph % (Auto) 14.6 [place] % (Auto) 8.7 Eos % (Auto) 2.7 Baso % (Auto) 0.7 Neut # (Auto) 5.1 Lymph # (Auto) 1.0 [place] # (Auto) 0.6 Eos # (Auto) 0.2 Baso # (Auto) 0.1 Sodium 129 L Potassium 4.3 Chloride 96 L Carbon Dioxide 23 Anion Gap 14.3 BUN 85 H Creatinine 2.00 H Estimated Creat Clear 42 Estimated GFR 25 L Est GFR ( Amer) 30 L D Glucose 136 H POC Glucose 275 H 203 H Calcium 8.9 Magnesium 2.0 D Total Bilirubin 1.0 AST 36 ALT 24 D Alkaline Phosphatase 203 H Total Protein 6.3 Albumin 3.3 L D Globulin 3.0 Albumin/Globulin Ratio 1.1 Rdwlm-8-Uzlyyjfyrtn Alpha-1-AT Phenotype 08/08/25 13:56 WBC RBC Hgb Hct MCV MCH MCHC RDW Plt Count MPV Neut % (Auto) Lymph % (Auto) [place] % (Auto) Eos % (Auto) Baso % (Auto) Neut # (Auto) Lymph # (Auto) [place] # (Auto) Eos # (Auto) Baso # (Auto) Sodium Potassium Chloride Carbon Dioxide Anion Gap BUN Creatinine Estimated Creat Clear Estimated GFR Est GFR ( Amer) Glucose POC Glucose Calcium Magnesium Total Bilirubin AST ALT Alkaline Phosphatase Total Protein Albumin Globulin Albumin/Globulin Ratio Vhept-1-Ophqtttcvdm 199 H Alpha-1-AT Phenotype Mm Preliminary micro results at discharge 08/09/25 Unknown Surgical Biopsy Culture - Preliminary Transbronchial Biopsy - Right Lower Lobe NO GROWTH AFTER 4 DAYS DS: Diagnosis Discharge Diagnosis (1) Pneumonia: Status: Acute Code(s): J18.9 - Pneumonia, unspecified organism Qualifiers: Pneumonia type: due to unspecified organism Laterality: right Lung location: lower lobe of lung Qualified Code(s): J18.9 - Pneumonia, unspecified organism (2) Acute heart failure with reduced ejection fraction (HFrEF): Status: Acute Code(s): I50.21 - Acute systolic (congestive) heart failure (3) Occult blood in stools: Status: Acute Code(s): R19.5 - Other fecal abnormalities (4) Presence of CardioMEMS HF system: Status: Acute Code(s): Z95.818 - Presence of other cardiac implants and grafts (5) A-fib: Status: Acute Code(s): I48.91 - Unspecified atrial fibrillation Qualifiers: Atrial fibrillation type: permanent Qualified Code(s): I48.21 - Permanent atrial fibrillation (6) Acute on chronic anemia: Status: Acute Code(s): D64.9 - Anemia, unspecified (7) CHF NYHA class IV (symptoms with any physical activity and at rest): Status: Acute Code(s): I50.9 - Heart failure, unspecified (8) Muscle twitching: Status: Acute Code(s): R25.3 - Fasciculation (9) Anticoagulated: Status: Acute Code(s): Z79.01 - group home (current) use of anticoagulants (10) Cirrhosis: Status: Acute Code(s): K74.60 - Unspecified cirrhosis of liver Meds Home Medications and Allergies Home Medications ?Medication ?Instructions ?Recorded ?Confirmed ?Type pantoprazole 40 mg tablet,delayed 40 mg PO BID 12/03/17 08/07/25 History release tramadol 50 mg tablet 50 mg PO Q6HP PRN Mild Pain (Scale 12/03/17 08/07/25 History Score 1-4) digoxin 125 mcg (0.125 mg) tablet 125 mcg PO DAILY 03/27/20 08/07/25 History allopurinol 100 mg tablet 100 mg PO DAILY 01/11/25 08/07/25 History loratadine 10 mg tablet 10 mg PO DAILY 01/11/25 08/07/25 History insulin human U-100 NPH-regulr 100 unit SQ AM 01/22/25 08/07/25 History 70-30 mix 100 unit/mL subcutaneous susp (Humulin 70/30 U-100 Insulin) metoprolol succinate 25 mg 12.5 mg (1/2 x 25 mg) PO DAILY #30 02/03/25 08/07/25 Rx tablet,extended release 24 hr tabs (Toprol XL) duloxetine 30 mg capsule,delayed 30 mg PO DAILY 05/27/25 08/07/25 History release valsartan 40 mg tablet 40 mg PO DAILY 06/27/25 08/07/25 History atorvastatin 40 mg tablet (Lipitor) 40 mg PO HS #30 tabs 06/29/25 08/07/25 Rx dapagliflozin propanediol 10 mg 10 mg PO DAILY #30 tabs 07/01/25 08/07/25 Rx tablet (Farxiga) spironolactone 25 mg tablet 25 mg PO BID #60 tabs 08/03/25 08/07/25 Rx insulin human U-100 NPH-regulr 60 unit SQ PM 08/07/25 08/07/25 History 70-30 mix 100 unit/mL subcutaneous susp (Humulin 70/30 U-100 Insulin) metolazone 5 mg tablet 5 mg PO Q48H 08/07/25 08/07/25 History Held on 08/13/25. Instructions: pending follow-up with cardiology prednisolone acetate 1 % eye 1 drp Eye-Both BID 08/07/25 08/07/25 History drops,suspension semaglutide 0.25 mg or 0.5 mg (2 0.5 mg SQ WEEKLY 08/07/25 08/07/25 History mg/3 mL) subcutaneous pen injector (Ozempic) bumetanide 2 mg tablet 2 mg PO DAILY 30 days #0 tabs 08/13/25 08/07/25 Rx gabapentin 600 mg tablet 300 mg (1/2 x 600 mg) PO TID 30 08/13/25 08/07/25 Rx days #0 tabs levofloxacin 750 mg tablet 750 mg PO Q48H 1 day #1 tab 08/13/25 Rx phenobarbital 32.4 mg tablet 48.6 mg (1.5 x 32.4 mg) PO HS 30 08/13/25 08/07/25 Rx days #0 tabs potassium chloride 20 mEq 20 meq PO DAILY 30 days #0 tabs 08/13/25 08/07/25 Rx tablet,extended release(part/cryst) rivaroxaban 15 mg tablet (Xarelto) 15 mg PO QPMWITHMEAL 30 days #30 08/13/25 Rx tabs New Prescriptions to Start Prescriptions: levofloxacin Seth Liu rivaroxaban [Xarelto] Seth Liu Allergies Allergy/AdvReac Type Severity Reaction Status Date / Time metoclopramide (From REGLAN) Allergy Mild SHAKES Verified 08/08/25 12:34 empagliflozin (From AdvReac Mild itching Verified 08/08/25 12:34 Jardiance) Discharge Plan Disposition Patient Disposition: Home, Self-Care Condition: Fair Discharge Order Discharge Orders: Discharge Order (Routine); Ordered 08/13/25 Ordered By: Seth Liu Follow up Plan Follow up with: Reese Munoz II, MD [Staff Physician, Gastroenterology] - Enter time for follow up Isrrael Quiñonez MD [Physician, Pulmonology] - Enter time for follow up Amadou Oviedo MD [Staff Physician, Cardiology] - Enter time for follow up Prescriptions/Medication Reconciliation: New levofloxacin 750 mg Tablet 750 mg PO Q48H 1 Days Qty: 1 0RF Rx Instructions: take on 08/15 Xarelto 15 mg Tablet 15 mg PO QPMWITHMEAL 30 Days Qty: 30 0RF Continued metoprolol succinate [Toprol XL] 25 mg tablet extended release 24 hr 12.5 mg PO DAILY Qty: 30 5RF dapagliflozin propanediol [Farxiga] 10 mg tablet 10 mg PO DAILY Qty: 30 5RF tramadol 50 MG tablet 50 mg PO Q6HP PRN (Reason: Mild Pain (Scale Score 1-4)) pantoprazole 40 MG tablet,delayed release (DR/EC) 40 mg PO BID Humulin 70/30 U-100 Insulin 100 unit/mL (70-30) suspension 100 unit SQ AM Patient Comments: INJECT 100 UNITS SUBCUTANEOUSLY EVERY DAY IN THE MORNING AND INJECT 60 UNITS IN THE EVENING valsartan 40 mg tablet 40 mg PO DAILY atorvastatin [Lipitor] 40 mg tablet 40 mg PO HS Qty: 30 0RF Humulin 70/30 U-100 Insulin 100 unit/mL (70-30) suspension 60 unit SQ PM Patient Comments: INJECT 100 units SUBCUTANEOUSLY EVERY DAY IN THE MORNING AND INJECT 60 units EVERY EVENING prednisolone acetate 1 % drops,suspension 1 drp Eye-Both BID Patient Comments: INSTILL ONE DROP IN EACH EYE TWICE DAILY FOR 2 WEEKS Ozempic 0.25 mg or 0.5 mg (2 mg/3 mL) pen injector 0.5 mg SQ WEEKLY Patient Comments: INJECT 0.5 MG SUBCUTANEOUSLY ONCE WEEKLY digoxin 125 MCG tablet 125 mcg PO DAILY allopurinol 100 mg tablet 100 mg PO DAILY loratadine 10 mg tablet 10 mg PO DAILY Patient Comments: TAKE ONE TABLET BY MOUTH EVERY DAY duloxetine 30 mg capsule,delayed release(DR/EC) 30 mg PO DAILY Patient Comments: TAKE ONE CAPSULE BY MOUTH EVERY DAY Changed gabapentin 600 mg tablet 300 mg PO TID 30 Days Qty: 0 0RF Patient Comments: TAKE ONE TABLET BY MOUTH EVERY DAY MAY CAUSE DROWSINESS bumetanide 2 mg tablet 2 mg PO DAILY 30 Days Qty: 0 0RF potassium chloride 20 mEq tablet,ER particles/crystals 20 meq PO DAILY 30 Days Qty: 0 0RF Patient Comments: TAKE ONE TABLET BY MOUTH TWICE DAILY phenobarbital 32.4 MG tablet 48.6 mg PO HS 30 Days Qty: 0 0RF Rx Instructions: 1.5 tabs nightly Held spironolactone 25 mg tablet 25 mg PO BID Qty: 60 5RF metolazone 5 mg tablet 5 mg PO Q48H Hold Instructions: pending follow-up with cardiology Patient Comments: TAKE ONE TABLET BY MOUTH EVERY OTHER DAY Discontinued Xarelto 20 mg tablet 20 mg PO QPMWITHMEAL Rx Instructions: TAKE ONE TABLET BY MOUTH EVERY DAY ropinirole 2 MG tablet 2 mg PO HS isosorbide mononitrate 30 mg tablet extended release 24 hr 30 mg PO DAILY Problem Reconciliation Problems Reviewed?: Yes Patient Discharge Instructions ACTIVITY: Continue current activity DIET: continue same diet Patient Instructions: Upper GI Endoscopy, DI for Bronchoscopy, Diagnostic, Gastrointestinal Bleeding, Stop Light Pneumonia, Stop Light Heart Failure, Stop Light Infection Print Language: Turkmen Providers Primary Care Provider: Rad Galvan Admit Provider: Jairo Adame Attending Provider: Jairo Adame
[2025-08-13 08:00] VITALS: BP 116/55; PULSE 70; PULSE 72; RESP 16; TEMP 36.6; O2SAT 99
--- NOTE | 2025-08-13 08:11 | PC.NURSE ---
Pt.is alert and orientated x 4. Pt. is on room air. Pt. states that she feels better. Pt.has c/o BLE/bilateral feet pain. Pt. medicated per JAN x 2. Pt. got good relief of pain with the pain meds. BLE elevated on pillows. Pt. up to bathroom a couple of times with the use of a walker and assist x 1. Pt. did seem weak when getting back to bed after ambulating to Bathroom. Pt. denies SOB. Pt's sister at bedside all night. Personal items and call leonard in reach. Bed in low and locked position. safety measures in place.
[2025-08-13] MEDS: BUMETANIDE 1MG/4ML VIAL 2 MG IV (08:34)
[2025-08-13] MEDS: IRBESARTAN 75MG TABLET 37.5 MG PO (08:36)
[2025-08-13] MEDS: GABAPENTIN 300MG CAPSULE 300 MG PO ×2 (08:36→13:04)
[2025-08-13 08:37] VITALS: PULSE 70
[2025-08-13] MEDS: DIGOXIN 0.125MG TABLET 125 MCG PO (08:37)
[2025-08-13 12:00] VITALS: BP 115/68; PULSE 70; PULSE 86; RESP 16; TEMP 36.6; O2SAT 94
[2025-08-13 16:11] LABS: POC Glucose,Bedside 229 gm/dL (70-110)
--- NOTE | 2025-08-15 10:12 | SW/DCPLANNER ---
Spoke with patient on the phone. Patient stated that she is doing good. Patient stated that she is aware of her appointments and is waiting for them to call and schedule the appointments. Patient stated that if she hasnt heard anything by noon she will call and schedule them herself. Patient stated that she was able to get her new medicine. Patient stated that she has no concerns or questions at this time. Bryan Aldrich
[2025-08-15 13:58] LABS: POC Glucose,Bedside 154 gm/dL (70-110)
[2025-08-15 13:59] LABS: POC Glucose,Bedside 177 gm/dL (70-110)
== END 2025-08-13 15:54 | disposition home or self-care (01) | DRG 166 ==
LOC: ER 13:03 → 2ND 13:36
PROVIDERS: Internal Medicine Adolescent Medicine; Internal Medicine Gastroenterology; Internal Medicine Pulmonary Disease; Physician Assistant; Admitting Provider Student in an Organized Health Care Education/Training Program; Emergency Provider Student in an Organized Health Care Education/Training Program; PCP Family Medicine; Visit Provider Student in an Organized Health Care Education/Training Program
PROC: 0DJ08ZZ Inspection of Upper Intestinal Tract, Via Natural or Artificial Opening Endoscopic (ICD-10-PCS; principal; 2025-08-08 15:00)
PROC: 0BBF8ZX Excision of Right Lower Lung Lobe, Via Natural or Artificial Opening Endoscopic, Diagnostic (ICD-10-PCS; principal; 2025-08-09 12:30)
DX: J18.9 Pneumonia, unspecified organism (principal); I50.23 Acute on chronic systolic (congestive) heart failure; K76.6 Portal hypertension; I48.21 Permanent atrial fibrillation; I13.0 Hypertensive heart and chronic kidney disease with heart failure and stage 1 through stage 4 chronic kidney disease, or unspecified chronic kidney disease; Z68.41 Body mass index [BMI] 40.0-44.9, adult; I42.8 Other cardiomyopathies; E66.2 Morbid (severe) obesity with alveolar hypoventilation; E87.1 Hypo-osmolality and hyponatremia; K31.89 Other diseases of stomach and duodenum; E11.22 Type 2 diabetes mellitus with diabetic chronic kidney disease; N18.32 Chronic kidney disease, stage 3b; E11.42 Type 2 diabetes mellitus with diabetic polyneuropathy; I25.10 Atherosclerotic heart disease of native coronary artery without angina pectoris; K21.9 Gastro-esophageal reflux disease without esophagitis; E78.2 Mixed hyperlipidemia; G40.909 Epilepsy, unspecified, not intractable, without status epilepticus; Y95 Nosocomial condition; D53.9 Nutritional anemia, unspecified; K22.70 Barrett's esophagus without dysplasia; K44.9 Diaphragmatic hernia without obstruction or gangrene; K74.60 Unspecified cirrhosis of liver; K76.0 Fatty (change of) liver, not elsewhere classified; I27.20 Pulmonary hypertension, unspecified; I34.0 Nonrheumatic mitral (valve) insufficiency; E04.2 Nontoxic multinodular goiter; K59.09 Other constipation; R53.1 Weakness; R42 Dizziness and giddiness; R41.82 Altered mental status, unspecified; R25.3 Fasciculation; T42.3X5A Adverse effect of barbiturates, initial encounter; Z95.810 Presence of automatic (implantable) cardiac defibrillator; Z79.01 Long term (current) use of anticoagulants; Z95.818 Presence of other cardiac implants and grafts; Z90.49 Acquired absence of other specified parts of digestive tract; Z79.4 Long term (current) use of insulin; Z79.84 Long term (current) use of oral hypoglycemic drugs; Z79.85 Long-term (current) use of injectable non-insulin antidiabetic drugs; Z79.899 Other long term (current) drug therapy; Z88.8 Allergy status to other drugs, medicaments and biological substances
CPT/HCPCS: 0223U; 36415; 71045; 71250; 74177; 76000; 80053; 80162; 81001; 82103; 82104; 82140; 82164; 82272; 82390; 82607; 82657; 82728; 82746; 82784; 82962; 83540; 83550; 83735; 83880; 84100; 84145; 84443; 84484; 85014; 85018; 85025; 85610; 86015; 86140; 86376; 86381; 87040; 87070; 87101; 87116; 87186; 87205; 87636; 87641; 88112; 88305; 89051; 89220; 92610; 93005; 93308; 94640; 97162; 97166; 99285; C1726; G0328; J0692; J0696; J1100; J1939; J1956; J2003; J2405; J2470; J2704; J3010; J7120; Q9957; Q9967

== ENCOUNTER 2025-08-17 01:10 | Emergency (ER) | payer MEDICARE, SELFPAY ==
--- OUTSIDE RECORDS SUMMARY | 2025-07-07 11:15 | XMS_ITS | Encounter Summary ---
Author Organization [facility] Address [address] [place] [address] Care Team Providers Care Franchise Specialist Name Role Phone Rad Galvan MD Primary Care Provider + Reason for Referral * Medical Care (Routine) - Authorized Specialty Diagnoses / Procedures Referred By Contac t Referred To Contact Diagnoses Viral cardiomyopathy Nocturnal headaches Procedures Overnight Sleep Oximetry Study Rad Galvan MD [address] [facility] [place] [address] Phone: tel: fax: [facility] [address] [place] [address] Phone: tel: fax: Referral ID Status Reason Start Date Expiration Date V isits Requested Visits Authorized [id number] Authorized 07/07/2025 10/06/2026 1 1 Reason for Visit * Reason Comments FU from [facility] discharge / heart failure Pt has fu w/ Cardio at tomorrow Encounter Details Date Type Department Care Team (Late st Contact Info) Description 07/07/2025 11:15 AM EDT Office Visit [facility] [address] [facility] [place] [address] Rad Galvan MD [address] [facility] [place] [address] Left ventricular systolic dysfunction, chronic [...] from June 27 to June 29 at [facility] for acute systolic congestive heart failure. [...] includes review of medical records, review of citrix consultant notes, time spent preparing for the visit, counseling the patient and her friend, documenting in the medical record documented in this encounter Plan of Treatment Upcoming Encounters Date Type Department Care Team (Late st Contact Info) Description 08/17/2025 2:00 PM EDT Office Visit [facility] [address] [place], [place] [address] Desi Beckford APRN [address], [place] [address] 10/31/2025 11:00 AM EST Office Visit [facility] MED[facility] [address], [place] [address] Rad Galvan MD [address] [place] [address] documented as of this encounter Results [...] documented as of this encounter Care Teams Franchise Specialist Relationship Specialty Start Date End Date Rad Galvan MD [address] [place] [address] PCP - General Family Medicine 04/15/22 documented as of this encounter
--- OUTSIDE RECORDS SUMMARY | 2025-07-08 13:45 | XMS_ITS | Encounter Summary ---
Author Organization [facility] Address [address] [place] [address] Care Team Providers Care Director Behavioral Health Name Role Phone Uli Salcedo Unavailable [phone] Rad Galvan MD Primary Care Provider [phone] Reason for Referral * Consultation (Routine) - Authorized Specialty Diagnoses / Procedures Referred By Contac t Referred To Contact Diagnoses Chronic combined systolic and diastolic congestive heart failure Chika Orellana APRN [address] [place] [address] Phone: tel: fax: Referral ID Status Reason Start Date Expiration Date V isits Requested Visits Authorized [id number] Authorized 07/08/2025 01/07/2027 1 1 Reason for Visit * Reason Comments Congestive Heart Failure Post hospital d ischarge visit Encounter Details Date Type Department Care Team (Late st Contact Info) Description 07/08/2025 1:45 PM EDT Office Visit [facility] [place] [facility] [address] [facility]. [address] [place] [address] Elvin Schuler MD [address] [place] [address] Chronic combined systolic and diastolic [...] much Nearly every day 07/08/2025 1:50 PM FAHADT Cady Barry Feeling tired or having little [...] 1:50 PM EDT Joe Barry a * How difficult have these problems made it for you to do your work, take care of things at home, or get along with other people? Answer Date of Assessment Author Not difficult at all 07/08/2025 1:50 PM EDT Cady Coto * How difficult have these problems made [...] from the original note were not included. [facility] Sara Edwards [...] of her function later. She is s/P INTERPRETATIVE DANCER-D in 2019 and [facility]. The patient is diabetic on [...] store , will ride the cart around [employer] but walks around the smaller stores. She can prepare her own meals and do light housekeeping. No dizzy spells or syncope, no ICD discharges and no calls from the device clinic alerting her to any arrhythmias. She reports she gets severe headaches that can wake her up. She had one on admission to [facility] and while she was an inpatient. She [...] to follow up closely with cardiology at [place]. Will get labs today to assess since [...] formulated in conjunction with Dr Schuler. Chika Orellana APRN [facility] [1] Past Medical [...] Care Team (Late st Contact Info) Description 09/16/2025 2:30 PM EDT Appointment Cardiac Imaging [address] [place] [address] 09/16/2025 4:00 PM EDT Office Visit [facility] [place] [facility] [address] [place] [address] Elvin Schuler MD [address] [place] [address] Scheduled Referrals Name Type Priority Associated Diagnoses [...] - 899 pg/mL 07/08/2025 4:28 PM EDT [facility] Blood Venous blood specimen / Unknown Venipuncture / Unknown 07/08/2025 3:19 PM EDT 07/08/2025 3:54 PM EDT us Chika Orellana JAVA GRAILS DEVELOPER LAB BLOOD ORDERABLES Final Result [facility] [address] [place] [address] * (ABNORMAL) Comprehensive metabolic panel (07/08/2025 3:19 PM EDT) Glucose, Plasma 84 74 - 99 mg/dL 07/08/2025 4:28 PM EDT [facility] BUN, Plasma 52(H) 8 - 23 mg/dL 07/08/2025 4:28 PM EDT [facility] Creatinine, Plasma 1.80(H) 0.60 - 1.10 mg/dL 07/08/2025 4:28 PM EDT [facility] BUN/Creatinine Ratio 29 07/08/2025 4:28 PM EDT [facility] Sodium, Plasma 130(L) 136 - 145 mmol/L 07/08/2025 4:28 PM EDT [facility] Potassium, Plasma 3.7 3.6 - 4.9 mmol/L 07/08/2025 4:28 PM EDT [facility] Chloride, Plasma 87(L) 97 - 107 mmol/L 07/08/2025 4:28 PM EDT [facility] CO2, Plasma 28 22 - 29 mmol/L 07/08/2025 4:28 PM EDT [facility] Anion Gap 15 6 - 16 mmol/L 07/08/2025 4:28 PM EDT [facility] Total Calcium, Plasma 9.4 8.9 - 10.2 mg/dL 07/08/2025 4:28 PM EDT [facility] Total Protein 8.0(H) 6.3 - 7.9 g/dL 07/08/2025 4:28 PM EDT [facility] Albumin, Plasma 4.4 3.5 - 5.2 g/dL 07/08/2025 4:28 PM EDT [facility] AST, Plasma 40(H) 10 - 35 U/L 07/08/2025 4:28 PM EDT [facility] Comment:Hemolyzed, result ma y be falsely increased. ALT, Plasma 19 10 - 35 U/L 07/08/2025 4:28 PM EDT [facility] Alkaline Phosphatase, Plasma 202(H) 46 - 142 U/L 07/08/2025 4:28 PM EDT [facility] Total Bilirubin, Plasma 0.8 0.2 - 1.1 mg/dL 07/08/2025 4:28 PM EDT [facility] eGFRcr 30.4 mL/min/1.7 3m*2 07/08/2025 4:28 PM EDT [facility] Comment:Reported eGFRcr in m L/min/1.73m2 is based the CKD-EPI 2020 equation that does not use a race coefficient. Blood Venous blood specimen / Unknown Venipuncture / Unknown 07/08/2025 3:19 PM EDT 07/08/2025 3:54 PM EDT Chika Orellana APRN LAB BLOOD ORDERABLES Final Result [facility] [address] [place] [address] documented in this encounter Visit Diagnoses Diagnosis Chronic combined systolic and diastolic congestive heart failure- Primary Benign hypertensive kidney disease with chronic kidney disease stage I through stage IV, or unspecified documented in this encounter Additional Health Concerns Assessment Noted Time PHQ-9 Depression Total Score: 10 025 1:50 PM EDT A fall risk assessment has been complete d for the patient 07/08/2025 1:43 PM EDT A Body Mass Index follow-up plan has been documented for the patient 07/08/2025 3:46 PM EDT documented as of this encounter Care Teams Director Behavioral Health Relationship Specialty Start Date End Date Rad Galvan MD [address] [place] [address] PCP - General 04/08/25 Uli Salcedo PA [address] [place] [address] Referring Physician 02/03/25 documented as of this encounter
--- OUTSIDE RECORDS SUMMARY | 2025-07-13 09:00 | XMS_ITS | Encounter Summary ---
Author Organization [facility] Address [address] [phone] Care Team Providers Care Equipment Maintenance Superintendent Name Role Phone Rad Galvan MD Primary Care Provider + Reason for Visit * Reason Comments Establish Care Patient complains of chest pressure * Consultation (Routine) - Closed Specialty Diagnoses / Procedures Referred By Regan greene Referred To Contact Cardiology Diagnoses TO EST CARE FOR HER OPTIMIZER Elvin Schuler MD [address] [place] [address] Phone: tel: [place]: [place] [address] [place] [address] [place] [address] Phone: tel: fax: Referral ID Status Reason Start Date Expiration Date Visits Re quested Visits Authorized [id number] Closed 03/22/2025 06/21/2026 1 1 Encounter Details Date Type Department Care Team (Late st Contact Info) Description 07/13/2025 9:00 AM EDT Office Visit [facility] CARDIOLOG[facility] [address] [place] [address] [address] [phone] Sidney Barraza MD [address] [facility] [place] [address] Chronic HFrEF (heart failure with reduced ejection [...] 07/13/25 DATE OF ADMISSION: (Not on file) [facility] C[facility] Rad Galvan MD [address] [facility] [place] [address] Referring Provider: Elvin Schuler MD Chief Complaint Patient presents with [facility] Care Patient complains of chest pressure Problem List: Chronic systolic heart failure/HFrEF Initially diagnosed 2014 Biventricular ICD implant 05/09/2020- Dr. Armstrong Impulse dynamics September 2022 [facility] 07/05/2024: Mild disease in multiple vessels (20 to 40% severity) Echocardiogram 01/11/2025: EF 30%, moderate MR Cardio mems implant 04/01/2025 followed by [facility] 04/01/2025: mildly elevated reight and normal [...] She was recently in the hospital in [place] for fluid overlaod with LE edema. She [...] 60 tablet, Rfl: 2 Comfort EZ Pen [place] 32G X 6 MM [facility], USE DIRECTED FOR insulin injections, Disp: 100 each, Rfl: 5 Continuous Glucose Setter Induction Heating Equipment (FreeStyle Simón 3 [place]) device, Use 1 each Daily., Disp: 1 [...] 15 minutes., Disp: 30 tablet, Rfl: 0 [place]-3 Fatty Acids (fish oil) 1000 MG capsule [...] PROTIME No results found for: TSH , [id number] , I2FYWDZ , THYROIDAB BiV ICD manual interrogation: RA [...] Aldactone, Farxiga, Bumex, follows with [facility] Advanced Heart Failure - she is doing [...] Description 08/17/2025 2:00 PM EDT Office Visit [facility] [address] [place] [phone] Desi Beckford, ELECTRONIC SCIENCE TEACHER [address], [place] [address] 10/31/2025 11:00 AM EST Office Visit [facility] [address], [place] [phone] Rad Galvan MD [address] [address] [...] Rhythm: atrial fibrillation and paced BPM: 77 Sidney Barraza MD ECG ORDERABLES Final Result documented in this encounter Visit Diagnoses Diagnosis Chronic HFrEF (heart failure with reduced ejection fraction)- Primary Longstanding persistent atrial fibrillation documented in this encounter Additional Health Concerns Assessment Noted Time PHQ-2 Depression Total Score: 1 02/17/20 24 10:24 AM EDT documented as of this encounter Care Teams Equipment Maintenance Superintendent Relationship Specialty Start Date End Date Rad Galvan MD [address], [place] [address] PCP - General Family Medicine 04/15/22 documented as of this encounter
--- OUTSIDE RECORDS SUMMARY | 2025-07-13 10:53 | XMS_ITS | Encounter Summary ---
Author Organization [facility] Address [address] [id number] Care Team Providers Care Doctor Of Podiatric Medicine Name Role Phone Rad Galvan MD Primary Care Provider + Reason for Visit * Diagnostic Imaging (Routine) - Closed Specialty Diagnoses / Procedures Referred By Contac t Referred To Contact Radiology Diagnoses S/P implantation of automatic cardioverter/defibrillator (AICD) Procedures XR chest pa and lateral Sidney Barraza MD [address] [place] [address] Phone: tel: fax: Referral ID Status Reason Start Date Expiration Date Visits Re quested Visits Authorized [id number] Closed 07/13/2025 10/12/2026 1 1 Encounter Details Date Type Department Care Team (Late st Contact Info) Description 07/13/2025 10:53 AM EDT - 07/13/2025 11:59 PM EDT Hospital Encounter [facility] XRAY [address] [place] [address] Sidney Barraza MD [address] [place] [address] Discharge Disposition: Home or Self Care Social [...] 60 tablet 2 04/20/2025 Comfort EZ Pen [place] 32G X 6 MM misc USE DIRECTED FOR insulin injections 100 each 5 12/03/2024 Continuous Glucose Rerecording Mixer (FreeStyle Simón 3 [place]) deviceIndications: Type 2 diabetes mellitus with hypoglycemia [...] AM and 40 units q PM 04/07/2025 isosorbide mononitrate (IMDUR) 30 MG 24 hr tablet Take 1 tablet by mouth Daily. loratadine (CLARITIN) 10 MG tabletIndications: Allergic rhinitis [...] doses in 15 minutes. 30 tablet 11/18/2023 [place]-3 Fatty Acids (fish oil) 1000 MG capsule capsule Take 2 capsules by mouth Daily With Breakfast. pantoprazole (PROTONIX) 40 MG EC tabletIndications: Gastroesophageal reflux disease without esophagitis TAKE ONE TABLET BY MOUTH TWICE DAILY 60 tablet 11 06/02/2025 PHENobarbital 32.4 MG tabletIndications: Seizure disorder TAKE THREE TABLETS BY MOUTH EVERY DAY AT BEDTIME 90 tablet 5 06/30/2025 polyethylene glycol (MiraLax) 17 GM/SCOOP powderIndications: Drug-induced constipation Take 17 g by mouth Daily. 850 g 2 05/13/2023 potassium chloride (KLOR-CON M20) 20 MEQ CR tabletIndications: termite treater helper current use of diuretic TAKE ONE TABLET BY MOUTH TWICE DAILY 60 tablet 3 03/02/2025 rivaroxaban (XARELTO) 20 MG tablet Take 1 tablet by mouth Daily. rOPINIRole (REQUIP) 2 MG tabletIndications: Restless leg [...] Times a Day. 60 tablet 2 04/07/2025 potassium chloride ER (K-TAB) 20 MEQ tablet controlled-release ER tablet TAKE ONE TABLET BY MOUTH TWICE DAILY 120 tablet 5 06/30/2025 5 documented as of this encounter Plan of Treatment Upcoming Encounters Date Type Department Care Team (Late st Contact Info) Description 08/17/2025 2:00 PM EDT Office Visit [facility] [address] [place] [address] Desi Beckford APRN [address] [place] [address] 10/31/2025 11:00 AM EST Office Visit [facility] [address] [place] [address] Rad Galvan MD [address] [place] [address] documented as of this encounter [...] MD 07/13/2025 4:13 PM EDT Workstation ID: [id number] Narrative 07/13/2025 4:13 PM EDT XR CHEST [...] MD 07/13/2025 4:13 PM EDT Workstation ID: [id number] us Sidney Barraza MD IMG DIAGNOSTIC IMAGING ORDER RICH Final Result documented in this encounter Visit Diagnoses Not on filedocumented in this encounter Additional Health Concerns Assessment Noted Time PHQ-2 Depression Total Score: 1 02/17/20 24 10:24 AM EDT documented as of this encounter Care Teams Doctor Of Podiatric Medicine Relationship Specialty Start Date End Date Rad Galvan MD [address] [address] PCP - General Family Medicine 04/15/22 documented as of this encounter
--- OUTSIDE RECORDS SUMMARY | 2025-07-15 10:30 | XMS_ITS | Encounter Summary ---
Author Organization [facility] Address [address] [place] [address] Care Team Providers Care Operations Supervisor Name Role Phone Uli Salcedo Unavailable [phone] Rad Galvan MD Primary Care Provider [phone] Encounter Details Date Type Department Care Team (Latest Contact Info) Description 07/15/2025 10:30 AM EDT Ancillary Procedure [facility] [place] [address] [place] [address] Chronic combined systolic and diastolic congestive heart [...] PM EDT Appointment Cardiac Imaging [address] [place] [address] 09/16/2025 4:00 PM EDT Office Visit [facility] [place] [address] [place] [address] Elvin Schuler MD [address] [place] [address] documented as of this encounter Visit Diagnoses [...] documented as of this encounter Care Teams Operations Supervisor Relationship Specialty Start Date End Date Rad Galvan MD [address] [place] [address] PCP - General 04/08/25 Uli Salcedo PA [address] [place] [address] Referring Physician 02/03/25 documented as of this encounter
--- OUTSIDE RECORDS SUMMARY | 2025-07-27 08:02 | XMS_ITS | Encounter Summary ---
Author Organization [facility] Address [address] [place] [address] Care Team Providers Care Assessment Director Name Role Phone Uli Salcedo Unavailable [phone] Rad Galvan MD Primary Care Provider [phone] Reason for Visit * Auth/Cert (Routine) Specialty Diagnoses / Procedures Referred By Contac t Referred To Contact Diagnoses Chronic combined systolic and diastolic congestive heart failure Chronic combined systolic and diastolic congestive heart failure (CMS/HCC) [I50.42] Procedures MD RIGHT HEART CATH O2 SATURATION & CARDIAC OUTPUT Right heart catheterization Elvin Schuler MD [address] [place] [address] Phone: tel: fax: Cardiac Sprinkler Worker [address] [place] [address] Phone: tel: Referral ID Status Reason Start Date Expiration Date Visits Re quested Visits Authorized [id number] 1 1 Encounter Details Date Type Department Care Team (Latest Contact Info) Description 07/27/2025 8:02 AM EDT - 07/27/2025 10:39 AM EDT Hospital Encounter Cardiac Sprinkler Worker [address] [place] [address] Elvin Schuler MD [address] [place] [address] Chronic combined systolic and diastolic congestive heart failure ([facility]/HCC) Discharge Disposition: Home or Self Care Social [...] Sign Reading Time Taken Comments Blood Pressure 123/55 07/27/2025 9:45 AM EDT Pulse 71 07/27/2025 9:45 AM EDT Temperature 37.1 C (98.7 F) 07/27/2025 9:11 AM EDT Respiratory Rate 18 07/27/2025 9:45 AM EDT Oxygen Saturation 97% 07/27/2025 9:45 AM EDT Inhaled Oxygen Concentration - - Weight 91.4 kg (201 lb 8 oz) 07/27/2025 8:14 AM EDT Height 154.9 cm (5' 1 ) 07/27/2025 8:14 AM EDT Body Mass Index 38.07 07/27/2025 8:14 AM EDT documented in this encounter Functional [...] way Not at all 07/08/2025 1:50 PM Cady Nunn Patient Health Questionnaire-9 Score 10 07/08/2025 1:50 PM EDT Joe Barry a * Calculated C-SSRS Risk Score (Lifetime/Recent) Answer Date of Assessment Author No Risk Indicated 07/27/2025 8:16 AM EDT Alexsandra Lee RN * How difficult have these problems made [...] 07/08/2025 1:50 PM EDT Cady Coto * Question Answer Date of Assessment Author 1. Wish to be (Past 1 Month) No 025 8:16 AM EDT Alexsandra Lee RN 2. Non-Specific Active Suici richard Thoughts (Past 1 Month) No 07/27/2025 8:16 AM EDT Alphonso Lee RN 6. Suicidal Behavior (Lifetime) No 8:16 AM FAHADT Alexsandra Lee RN documented as of this encounter Medications at [...] Take 1 tablet by mouth daily. 01/25/2025 metOLazone (Zaroxolyn) 5 MG tablet Take 1 [...] MOUTH EVERY DAY FOR BLOOD THINNER 01/26/2025 bumetanide (Bumex) 1 MG tablet Take 2 tablets by mouth daily. Can take additional doses if needed 04/26/2025 08/04/20 25 documented as of this encounter Miscellaneous Notes * Nursing Note - Alexsandra Lee RN - 07/27/2025 10:29 AM EDT Patient status post right heart catheterization. Discharge instructions reviewed with patient and family. Patient verbalized understanding. Right internal jugular site clean, dry and intact. Patient ambulated without complication. * Beth Shah - Alexsandra Lee RN - 07/27/2025 9:36 AM EDT Images from the original note were not included. 323 Right Heart Catheterization A catheter is inserted into the neck or leg area to check the function of the heart and the flow ofblood through the heart. The catheter is placed into a vein. Before the procedure ? Have your medicines with you in the hospital. Let the staff know of any allergies you have. ? Don't eat or drink anything after midnight the night before the procedure. During the procedure ? We will give you a local anesthetic to help stop the pain at the site where the catheter goes in. ? The doctor will insert a catheter into a blood vessel in your neck or groin. After the procedure and home care ? You will remain in bed for 1-4 hours after the heart cath. ? You must have someone with you to drive you home from the hospital. ? You may shower 24 hours after the procedure. ? Wound care: o Carefully wash the incision site with soap and water. o Then put on a clean bandage. o Change the bandage any time it gets wet or dirty. o If you cannot reach the bandage, ask someone else to help you change it. ? You may return to your usual diet when you get home. Seek care right away if you have any of the following ? The bruise where the catheter went into your neck or groin gets bigger or swollen. ? The place where the catheter went in starts to bleed. Use your hand to put firm pressure on the bandage. Hold this pressure and call to tell the doctor that you are bleeding. If you cannot stop thebleeding, call 911 or 0 (buckshot swage operator). This is an emergency. Ask for an ambulance to take you to the nearest hospital or clinic. Do not drive yourself! Call the doctor if you have any of the following ? Your neck incision is swollen, red, or leaks fluid that smells bad. ? You have a temperature over 101 degrees F. ? You have chills, a cough, or feel week and achy. ? Your skin is itchy, swollen, or have a rash. Your medicine may be causing these symptoms. This may mean you are allergic to your medicine. Call the Cardiology Clinic at if you have questions or concerns about your right heart catheterization, illness or medicines. Nights and weekends or holidays, call and ask for the Conformal Pad Former promotion manager. * H&P - Elvin Schuler MD - 07/27/2025 8:29 AM EDT History Of Present Illness Sara Edwards is a 70 y.o. female with known chronic systolic heart failure presenting with increasing edema, fatigue, and dyspnea. She was hospitalized over a month ago at [facility] and received IV diuretics. She has a CardioMEMS and pressures have been elevated but she is relatively refractory to diuretics. Allergies Ritalin [methylphenidate], Metoclopramide, and Promethazine Medications Current Medications[1] Objective Review of Systems Constitutional: Positive for fatigue. Respiratory: Positive for shortness of breath. Cardiovascular: Positive for leg swelling. All other systems reviewed and are negative. Physical Exam Last Recorded Vitals Blood pressure (!) 147/51, pulse 75, temperature 36.4 ??C (97.5 ??F), temperature source Oral, resp. rate 18, height 1.549 m (5' 1 ), weight 91.4 kg (201 lb 8 oz), SpO2 95%. Results Review Assessment & Plan Congestive heart failure (CMS/HCC) Impression: Chronic systolic heart failure, stage C, NYHA class III Chronic kidney disease Plan: Proceed with right heart catheterization. Informed consent obtained. [1] No current facility-administered medications for this encounter. * Pre-Sedation Documentation - Elvin Schuler MD - 07/27/2025 8:29 AM EDT Images from the original note were not included. Cardiology Pre-procedural Assessment And Sedation Plan Indication for procedure: The encounter diagnosis was Chronic combined systolic and diastolic congestive heart failure (CMS/HCC). Planned Procedure: right heart catheterization Relevant past medical history: chronic systolic heart failure Relevant review of systems: edema; dyspnea; fatigue Relevant Labs: Lab Results Component Value Date CREATININE 1.80 (H) 07/08/2025 EGFR 30.4 07/08/2025 Planned Sedation/Anesthesia: Minimal Airway assessment: normal Mallampati Score: II (hard and soft palate, upper portion of tonsils anduvula visible) ASA: ASA 3 - Patient with moderate systemic disease with functional limitations Directed physical examination: Lungs: clear CV: RR; no murmur Extremities: no edema Benefits, risks and alternatives of procedure and planned sedation have been discussed with the patient and/or their medical claims representative. All questions answered and they agree to proceed. documented in this encounter Plan of Treatment Upcoming Encounters Date Type Department Care Team (Late st Contact Info) Description 09/16/2025 2:30 PM EDT Appointment Cardiac Imaging [address] [place] [address] 09/16/2025 4:00 PM EDT Office Visit [facility] [place] [facility] [address] [place] [address] Elvin Schuler MD [address] [place] [phone] documented as of this encounter Procedures Procedure Name Priority Date/Time Associated Diagnosis Comments RIGHT HEART CATHETERIZATION Routine 07/27/2025 9:01 AM EDT Chronic combined systolic and diastolic congestive heart failure (CMS/HCC) POCT CO-OXIMETRY, VENOUS UNSOLICITIED RESULTS Routine 07/27/2025 8:59 AM EDT documented in this encounter Results * RIGHT HEART CATHETERIZATION (07/27/2025 9:01 AM EDT) Anatomical Region Laterality Modality Other Narrative 07/27/2025 1:15 PM EDT Conclusion: 1. Elevated right atrial pressures, greater than normal PCWP. Tall w-waves as well indicative of RV dysfunction and/or tricuspid regurgitation 2. Cardiac index 2.0 L/min/m2 Procedure Details After informed consent was obtained the patient was brought to the cardiac catheterization laboratory. A time out was conducted. The right neck was prepared and draped in the usual sterile fashion. Using ultrasound guidance, the tissue overlying the right internal jugular vein was anesthetized with 1% lidocaine. Using modified Seldinger technique and an 18-gauge Cook needle under ultrasound guidance, the right internal jugular vein was punctured, and a 0.035 J-tipped guidewire advanced into the central venous circulation. An 8F introducer was placed. Right heart catheterization was then carried out using a 7.5F VIP [place]-Po catheter. Pressures were recorded as the catheter was advanced from the right atrium to the pulmonary artery, including the pulmonary capillary wedge pressure. A blood sample was obtained from the pulmonary artery for mixed venous oxygen saturation. The introducer was then removed and hemostasis was achieved with 5 minutes of light manual pressure. The catheterization site was dressed with a sterile dressing, and the patient was transferred back to the public works laborer holding area in good condition. Hemodynamic Data Pressures Phase: Resting Right RA Mean: 16 mmHg Pulmonary PA: 43/12 (23) mmHg PCW Mean: 11.0 mmHg Marianna: 1.9 Hemodynamic Data Cardiac Output and Resistance Phase: Resting Thermo CO: 4 L/min CI: 2.0 L/min/m2 Resistance Thermo PVR: 3.0 ROUSE Thermo PVR: 240 (dyne x sec)/cm5 Hemodynamic Data Saturations Phase: Resting Saturations PA: 62 % Chika Orellana CHIEF ENTERPRISE ARCHITECT CV CARDIAC CATH PROCEDURES Final Result * (ABNORMAL) POCT CO-Oximitry, Venous (07/27/2025 8:59 AM EDT) [facility] POCT OXYHEMOGLOBIN, VENOUS 62 40 - 70 % 07/27/2025 8:57 AM EDT HEALTHCARE LAB Fire Control System Installer ID Fister-Mes ch, Jael 07/27/2025 8:57 AM EDT HEALTHCARE LAB Device ID [id number] 07/27/2025 8:57 AM EDT [facility] POCT Sample Site PA 07/27/2025 8:57 AM EDT [facility] POCT Total Hemoglobin 10.4(L) 11.2 - 15.7 g/dL 07/27/2025 8:57 AM EDT [facility] Venous blood specimen / Unknown 07/27/2025 8:59 AM EDT 07/27/2025 8:57 AM EDT Elvin Schuler MD LAB POINT OF CARE T EST DOCKED DEVICE UNSOLICITED RESULTS Final Result [facility] [address] [place] [address] documented in this encounter Visit Diagnoses Diagnosis Congestive heart failure- Primary Congestive heart failure, unspecified Chronic combined systolic and diastolic congestive heart failure Chronic combined systolic and diastolic congestive heart failure documented in this encounter Admitting Diagnoses Diagnosis Congestive heart failure Congestive heart failure, unspecified documented in this encounter Administered Medications Inactive Administered Medications - up to 3 most recent administrations Medication Order MAR Action Action Date Dose Rate Site acetaminophen (Tylenol) tablet 650 mg 650 mg, Oral, Every 4 hours PRN, Starting on Fri07/27/25 at 0934, Until Fri07/27/25 at 1240, Routine, Recovery(Phase II-Outpatient)/On Unit(Inpatient), mild pain, fever documented in this encounter Active and Recently Administered Medications Times are shown in EDT. PRN Medication Order 07/25/2025 07/26/2025 07/27/2025 acetaminophen (Tylenol) tablet 650 mg 650 mg, Oral, Every 4 hours PRN, Starting on Fri07/27/25 at 0934, Until Fri07/27/25 at 1240, Routine, Recovery(Phase II-Outpatient)/On Unit(Inpatient), mild pain, fever fentaNYL (Sublimaze) injection (CANCELED) As needed, Starting on Fri07/27/25 at 0845, Until Fri07/27/25 at 0919, Routine, Intraprocedure 0845 (Given - Provid er: Jael Marmolejo RN) lidocaine (Xylocaine) 2 % injection (CANCELED) As needed, Starting on Fri07/27/25 at 0849, Until Fri07/27/25 at 0919, Routine, Intraprocedure 0849 (Given - Provid er: Elvin Schuler MD) midazolam (Versed) injection (CANCELED) As needed, Starting on Fri07/27/25 at 0845, Until Fri07/27/25 at 0919, Routine, Intraprocedure 0845 (Given - Provid er: Jael Marmolejo RN) documented in this encounter Additional Health Concerns Assessment Noted Time PHQ-9 Depression Total Score: 10 025 1:50 PM EDT A fall risk assessment has been complete d for the patient 07/08/2025 1:43 PM EDT A Body Mass Index follow-up plan has been documented for the patient 07/27/2025 9:48 AM EDT documented as of this encounter Care Teams Assessment Director Relationship Specialty Start Date End Date Rad Galvan MD [address] [place] [address] PCP - General 04/08/25 Uli Salcedo PA [address] [place] [address] Referring Physician 02/03/25 documented as of this encounter
--- OUTSIDE RECORDS SUMMARY | 2025-07-27 08:45 | XMS_ITS | Encounter Summary ---
Author Organization [facility] Address [address] 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 (CMS/HCC) [I50.42] Procedures [place] RIGHT HEART CATH O2 SATURATION & CARDIAC OUTPUT Right heart catheterization Elvin Schuler MD [address] [place] [address] Phone: tel: fax: Cardiac Room Service Attendant [address] [place] [address] Phone: tel: Referral ID Status Reason Start Date Expiration Date Visits Re quested Visits Authorized [id number] 1 1 Encounter Details Date Type Department Care Team (Late st Contact Info) Description 07/27/2025 8:45 AM EDT - 07/27/2025 10:00 AM EDT Surgery Cardiac Room Service Attendant [address] [place] [address] Elvin Schuler MD [address] [place] [address] Right heart catheterization [22293 (CPT )] Surgery Details Date/Time Status Location OR Service Patient Class Case Class Case Type Trauma Case? 07/27/2025 8:45 AM Posted JESUS SUMMER LAW CLERK SUMMER LAW CLERK 03 [facility] Outpatient Surgery E-Elect jennifer Panel 1 [...] Lee RN 6. Suicidal Behavior (Lifetime) No 5 8:16 AM EDT Alexsandra Lee RN documented [...] intact. Patient ambulated without complication. * Beth PayneADOLPH - Alexsandra Lee RN - 07/27/2025 9:36 [...] cannot stop thebleeding, call 911 or 0 (dielectric press operator). This is an emergency. Ask for [...] or holidays, call and ask for the Cognos Administrator television engineer. * H&P - Elvin Schuler MD - 07/27/2025 8:29 AM EDT History Of Present Illness Sara Edwards is a 70 y.o. female with known chronic systolic heart failure presenting with increasing edema, fatigue, and dyspnea. She was hospitalized over a month ago at [facility] and received IV diuretics. She has a [...] been discussed with the patient and/or their screening representative. All questions answered and they agree to proceed. documented in this encounter Plan of Treatment Upcoming Encounters Date Type Department Care Team (Late st Contact Info) Description 09/16/2025 2:30 PM EDT Appointment Cardiac Imaging [address] [place] [address] 09/16/2025 4:00 PM EDT Office Visit [facility] [place] [facility] [address] [place] [address] Elvin Schuler MD [address] [place] [address] documented as of this encounter Procedures Procedure [...] then carried out using a 7.5F VIP [place]-Po catheter. Pressures were recorded as the catheter [...] the patient was transferred back to the matlab developer holding area in good condition. Hemodynamic Data [...] Venous (07/27/2025 8:59 AM EDT) [facility] POCT OXYHEMOGLOBIN, VENOUS 62 40 - 70 % 07/27/2025 8:57 AM EDT HEALTHCARE LAB Metal Crafts Teacher ID Fister-Jael Ortiz ch 07/27/2025 8:57 AM EDT [facility] Device ID [id number] 07/27/2025 8:57 AM EDT [facility] POCT Sample Site PA 07/27/2025 8:57 AM EDT [facility] POCT Total Hemoglobin 10.4(L) 11.2 - 15.7 g/dL 07/27/2025 8:57 AM EDT [facility] Venous blood specimen / Unknown 07/27/2025 8:59 AM EDT 07/27/2025 8:57 AM EDT Elvin Schuler MD LAB POINT OF CARE T EST DOCKED DEVICE UNSOLICITED RESULTS Final Result [facility] [address] [place] [address] documented in this encounter Visit Diagnoses Diagnosis [...] documented as of this encounter Care Teams Integration Solution Architect Relationship Specialty Start Date End Date Rad Galvan MD [address] [place] [address] PCP - General 04/08/25 Uli Salcedo PA [address] [place] [address] Referring Physician 02/03/25 documented as of this encounter
--- OUTSIDE RECORDS SUMMARY | 2025-08-01 10:15 | XMS_ITS | Encounter Summary ---
Author Organization [facility] Address [address] [place] [address] Care Team Providers Care Brick Veneer Maker Name Role Phone Rad Galvan MD Primary Care Provider + Reason for Referral * Diagnostic Imaging (Routine) - Authorized Specialty Diagnoses / Procedures Referred By Contac t Referred To Contact Diagnoses Encounter for screening mammogram for malignant neoplasm of breast Procedures Mammo Screening Digital Tomosynthesis Bilateral With CAD Rad Galvan MD [address] [facility] [place] [address] Phone: tel: fax: [facility] - OUTPT PHYSICAL THERAPY [address] [place] [address] Phone: tel: fax: Referral ID Status Reason Start Date Expiration Date V isits Requested Visits Authorized [id number] Authorized 08/01/2025 10/31/2026 1 1 Reason for Visit * Reason Comments Medicare Wellness-subsequent Encounter Details Date Type Department Care Team (Late st Contact Info) Description 08/01/2025 10:15 AM EDT Office Visit [facility] [address] [facility] [place] [phone] Rad Galvan MD [address] [facility] [place] [address] Type 2 diabetes mellitus with [...] Everywhere. * Health Maintenance After Age 65 (Omani) documented in this encounter Progress Notes * [...] 10:15 AM EDTAssociated Problem(s): Viral cardiomyopathy {CHF (Optional):37838} * Rad Galvan MD - 08/01/2025 10:15 AM EDTAssociated Problem(s): Type 2 diabetes mellitus with stage 3b chronic kidney disease, with long-term current use of insulin {Diabetes (Optional):[id number]} * Rad Galvan MD - 08/01/2025 10:15 [...] the past 365 days at [facility]. Current Medical Providers: Patient Care Team: Rad [...] Day.) 60 tablet 2 Comfort EZ Pen [place] 32G X 6 MM [facility] USE DIRECTED FOR insulin injections 100 each 5 Continuous Glucose Consumer Marketing Analyst (FreeStyle Simón 3 [place]) device Use 1 each Daily. 1 each [...] doses in 15 minutes. 30 tablet 0 [place]-3 Fatty Acids (fish oil) 1000 MG capsule [...] C SCREENING Completed Pneumococcal Vaccine 50+ Completed [facility] Preventative Services Quick Reference Risk Factors [...] criteria . She is undergoing evaluation at [facility]. Patient has diabetes which she continues to [...] Description 08/17/2025 2:00 PM EDT Office Visit [facility] [address] [place] [phone] Desi Beckford, CONSTRUCTION DIRECTOR [address] [place] [address] 10/31/2025 11:00 AM EST Office Visit [facility] [address] [place] [phone] Rad Galvan MD [address] [place] [address] Scheduled Orders Name Type Priority Associated Diagnoses [...] Hemoglobin A1C 7.2(A) 4.5 - 5.7 % [facility] Lot Number [id number] [facility] Expiration Date 03/09/2027 [facility] Blood 08/01/2025 10:4 0 AM EDT Rad Galvan MD POINT OF CARE TEST ORDER RICH Final Result [facility]
[address] [place] [address], documented in this encounter Visit Diagnoses Diagnosis Type 2 diabetes mellitus with hyperglycemia, with long-term current use of insulin- Primary Medicare annual wellness visit, subsequent Annual physical exam Routine general medical examination at a health care facility Encounter for screening mammogram for [...] documented as of this encounter Care Teams Brick Veneer Maker Relationship Specialty Start Date End Date Rad Galvan MD [facility] [address] PCP - General Family Medicine 04/15/22 documented as of this encounter
--- OUTSIDE RECORDS SUMMARY | 2025-08-15 11:00 | XMS_ITS | Encounter Summary ---
Author Organization [facility] Address [address] [place] [address] Care Team Providers Care Assembly Adjuster Name Role Phone Uli Salcedo Unavailable [phone] Rad Galvan MD Primary Care Provider [phone] Encounter Details Date Type Department Care Team (Latest Contact Info) Description 08/15/2025 11:00 AM EDT Ancillary Procedure [facility] [place] [address] [place] [address] Chronic combined systolic and diastolic congestive heart [...] PM EDT Appointment Cardiac Imaging [address] [place] [address] 09/16/2025 4:00 PM EDT Office Visit [facility] [place] [address] [place] [address] El[place] Schuler MD [address] [place] [address] documented as of this encounter Visit Diagnoses [...] documented as of this encounter Care Teams Assembly Adjuster Relationship Specialty Start Date End Date Rad Galvan MD [address] [place] [address] PCP - General 04/08/25 Uli Salcedo PA [address] [place] [address] Referring Physician 02/03/25 documented as of this encounter
[2025-08-17] VITALS (13 sets, daily range): BP systolic 107–129; BP diastolic 49–92; PULSE 69–72; RESP 18; TEMP 36.6–37; O2SAT 94–99; BMI 38.3
--- OUTSIDE RECORDS SUMMARY | 2025-08-17 01:16 | XMS_ITS | Encounter Summary ---
Author Organization [facility] Address [address] [place] [id number] Care Team Providers Care Central Processing Technician Name Role Phone Rad Galvan MD [...] Description 08/17/2025 2:00 PM EDT Office Visit [facility] [address] [place] [address] Desi Beckford, FULL STACK WEB DEVELOPER [address] [place] [place] [address] 10/31/2025 11:00 AM EST Office Visit [facility] [address] [place] [address] Rad Galvan MD [address] [facility] [place] [address] documented as of this encounter Visit Diagnoses Not on filedocumented in this encounter Additional Health Concerns Assessment Noted Time PHQ-2 Depression Total Score: 1 02/17/20 24 10:24 AM EDT documented as of this encounter Care Teams Central Processing Technician Relationship Specialty Start Date End Date Rad Galvan MD [address] [place] [address] PCP - General Family Medicine 04/15/22 documented as of this encounter
--- OUTSIDE RECORDS SUMMARY | 2025-08-17 01:18 | XMS_ITS | Encounter Summary ---
Author Organization [facility] Address [address] [place] [address] Care Team Providers Care Adult Neurologist Name Role Phone Uli Salcedo Unavailable [phone] Rad Galvan MD Primary Care Provider [phone] Encounter Details Date Type Department Care Team (Late st Contact Info) Description 07/22/2025 Telephone [facility] [place] [address] [facility], [address] [place] [address] Chika Orellana APRN [address] [place] [address] Social History Tobacco Use Types [...] PM EDT Appointment Cardiac Imaging [address] [place] [address] 09/16/2025 4:00 PM EDT Office Visit [facility] [place] [address] [place] [address] El[place] Schuler MD [address] [place] [address] documented as of this encounter Visit Diagnoses [...] documented as of this encounter Care Teams Adult Neurologist Relationship Specialty Start Date End Date Rad Galvan MD [address] [place] [address] PCP - General 04/08/25 Uli Salcedo PA [address] [place] [address] Referring Physician 02/03/25 documented as of this encounter
--- OUTSIDE RECORDS SUMMARY | 2025-08-17 01:22 | XMS_ITS | Encounter Summary ---
Author Organization [facility] Address [address] [place] [address] Care Team Providers Care Senior Software Engineering Manager Name Role Phone Rad Galvan MD Primary Care Provider + Encounter Details Date Type Department Care Team (Late st Contact Info) Description 08/15/2025 External PBMM Data [facility] [address] [place] [address] Pharmacy, Payor Data Social History Tobacco Use Types Packs/Day Years [...] [facility] [address] [place] [address] Desi Beckford, DEVELOPMENT REPRESENTATIVE [address] [place] [address] 10/31/2025 11:00 AM EST Office Visit [facility] [address] [place] [address] Rad Galvan MD [address] [place] [address] documented as of this encounter Visit Diagnoses Not on filedocumented in this encounter Additional Health Concerns Assessment Noted Time PHQ-2 Depression Total Score: 1 02/17/20 24 10:24 AM EDT documented as of this encounter Care Teams Senior Software Engineering Manager Relationship Specialty Start Date End Date Rad Galvan MD [address] [place] [address] PCP - General Family Medicine 04/15/22 documented as of this encounter
--- OUTSIDE RECORDS SUMMARY | 2025-08-17 01:22 | XMS_ITS | Clinical Summary ---
Author Organization [facility] Address [address] [place] [address] Care Team Providers Care Floor Press Operator Name Role Phone Uli Salcedo Unavailable [phone] Rad Galvan MD Primary Care Provider [phone] Allergies Active Allergy Reactions Criticality Noted Date [...] Encounters Date Type Department Care Team Description 08/15/2025 11:00 AM EDT Ancillary Procedure [facility] [address] [address] Chronic combined systolic and diastolic congestive heart failure (CMS/HCC) 08/15/2025 Travel 08/09/2025 Telephone [facility] [address] [facility] [address] Elvin Schuler MD HCN - Patient Message 08/09/2025 Travel 08/09/2025 Orders Only [facility] [address] [facility] [address] Linda Garcia RN Chronic combined systolic and diastolic congestive heart failure (CMS/HCC) (Primary Dx) 08/04/2025 Refill [facility] [address] [address] Yaritza Johnson RN 07/27/2025 8:45 AM EDT - 07/27/2025 10:00 AM EDT Surgery Cardiac Radiotelegraphist [address] [place] [address] Elvin Schuler MD Right heart catheterization [78584 (CPT )] 07/27/2025 8:02 AM EDT - 07/27/2025 10:39 AM EDT Hospital Encounter Cardiac Radiotelegraphist [address] [place] [address] Elvin Schuler MD Chronic combined systolic and diastolic congestive heart failure (CMS/HCC) Discharge Disposition: Home or Self Care 07/27/2025 Telephone [facility] [address] [place] [address] Yaritza Johnson RN 07/22/2025 Telephone [facility] [place] [address] [facility], [address] [place] [address] Chika Orellana APRN 07/15/2025 10:30 AM EDT Ancillary Procedure [facility] [address] [facility] [place] [address] Chronic combined systolic and diastolic congestive heart failure (CMS/HCC) 07/08/2025 1:45 PM EDT Office Visit 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 [place] [address] Elvin Schuler MD HCN - Patient Message 06/16/2025 Telephone [facility] [address] [facility] [place] [address] Elvin Schuler MD HCN - Patient Message 06/15/2025 8:00 AM EDT Ancillary Procedure [address] [place] [address] Chronic combined systolic and diastolic congestive heart failure (CMS/HCC) from Last 3 Months Immunizations Immunization Administration [...] PM EDT Appointment Cardiac Imaging [address] [place] [address] 09/16/2025 4:00 PM EDT Office Visit [facility] [place] [facility] [address] [place] [address] Elvin Schuler MD [address] [place] [address] Health Maintenance Due Date Last Done Comments [facility]-Bone Density Scan 1957 [facility]-Infant/Child/Adol SDOH Screenings 1957 Diabetes: Dental Exam 1967 [facility]- SDOH Screenings 1975 [facility]-Adult SDOH Screenings 1975 [facility]-DTaP,Tdap,and Td Vaccines (1 - Tdap) 01/24/1997 01/23/1997 CT Colonography 2002 Colonoscopy 2002 FIT 2002 FOBT 2002 Sigmoidoscopy 2002 [facility]-Breast Cancer Screening 2007 [facility]-Zoster Vaccines (1 of 2) 2007 [facility]-Medicare Annual Wellness (AWV) 02/16/2025 02/17/2024 [facility]W-[id number]-88 Vaccine ( season) 2025 09/06/2022, 11/28/2021, 03/06/2021, Additional history exists [facility]-Influenza Vaccine (#1) 07/25/202509/24, 08/18/2023, 09/06/2022, Additional history exists [facility]-Diabetes: Hemoglobin A1C 10/31/202506/2025, 04/07/2025, 09/24/2024, Additional history exists FIT-DNA 02/15/2026 02/15/2023 [facility]-Colorectal Cancer Screening 02/15/2026 [facility]-Depression Screening 07/08/2026 07/08/2025, 0803/2025 [facility]-Hepatitis C Screening Completed 11/26/2020 [facility]-RSV Vaccine: [...] then carried out using a 7.5F VIP [place]-Po catheter. Pressures were recorded as the catheter [...] the patient was transferred back to the manager laboratory holding area in good condition. Hemodynamic Data [...] POCT CO-Oximitry, Venous (07/27/2025 8:59 AM EDT) [facility] POCT OXYHEMOGLOBIN, VENOUS 62 40 - 70 % 07/27/2025 8:57 AM EDT [facility] Coroner Forensic Technician ID Jael Zhong ch 07/27/2025 8:57 AM EDT HEALTHCARE LAB Device ID [id number] 07/27/2025 8:57 AM EDT HEALTHCARE LAB POCT Sample Site PA 07/27/2025 8:57 AM EDT HEALTHCARE LAB POCT Total Hemoglobin 10.4(L) 11.2 - 15.7 g/dL 07/27/2025 8:57 AM EDT [facility] Venous blood specimen / Unknown 07/27/2025 8:59 AM EDT 07/27/2025 8:57 AM EDT Elvin Schuler MD LAB POINT OF CARE T EST DOCKED DEVICE UNSOLICITED RESULTS Final Result Performing Organization Address City/[facility] Co de Phone Number [facility] [address] [place] [address] * (ABNORMAL) N-Terminal Probnp, Plasma (07/08/2025 3:19 [...] BLOOD ORDERABLES Final Result Performing Organization Address City/[facility] Co de Phone Number [facility] [address] [place] [address] * (ABNORMAL) Comprehensive metabolic panel (07/08/2025 3:19 [...] 07/08/2025 3:54 PM EDT us Chika Orellana ULTRASONIC CLEANER LAB BLOOD ORDERABLES Final Result [facility] [address] [place] [address] * (ABNORMAL) Basic Metabolic Panel, Plasma (06/23/2025 10:40 AM EDT) Only the most recent of3 resultswithin the time period is included. Pathologist [facility] External Glucose 230 EXTERNAL LAB Comment:High External [...] specimen / Unknown 06/23/2025 10:40 AM EDT [facility] Provider LAB BLOOD ORDERABLES Final R esult Performing Organization Address City/[facility] Co de Phone Number EXTERNAL LAB * [place] Hepatitis C Antibody (11/26/2020 6:51 PM EST) Pathologist [facility] [place] Hepatitis C Ab NEGATIVE Reference Range: Negative [facility] 11/26/2020 6:51 PM EST 11/26/2020 7:09 PM EST Justo Morse MD LAB BLOOD ORDERABLES Final Re sult [facility] from Last 3 Months or Most Recently Relevant to Health Maintenance Insurance [facility] MEDIC[facility] Advance Directives Documents on File Type Date Recorded Patient Emergency Preparedness Coordinator Expl anation Advance Directives and Living Will 03/30/2025 LIVING WILL DIRECTIV E * Full Code (Latest Code Status on File) Date Activated Date Inactivated Comments 07/27/2025 9:34 AM 07/27/2025 12:40 PM Question Answer Comments Patient has decision-making capacity? Yes Healthcare Agents on File Name Relationship Healthcare Agent Relationshi p Communication Yennifer Edwards Daughter Next of Kin Care Teams Floor Press Operator Relationship Specialty Start Date End Date Rad Galvan MD [address] [place] [address] PCP - General 04/08/25 Uli Salcedo PA [address] [place] [address] Referring Physician 02/03/25
--- OUTSIDE RECORDS SUMMARY | 2025-08-17 01:23 | XMS_ITS | Encounter Summary ---
Author Organization [facility] Address [address] [place] [id number] Care Team Providers Care Private Mortgage Banker Safe Name Role Phone Rad Galvan MD Primary Care Provider + Reason for Visit * Reason Comments Med Refill Encounter Details Date Type Department Care Team (Late st Contact Info) Description 08/01/2025 Refill [facility] [address] [facility] [place] [address] Rad Galvan MD [address] [facility] [place] [address] Diabetic peripheral neuropathy associated with [...] Description 08/17/2025 2:00 PM EDT Office Visit [facility] [address] [facility] [place] [address] Desi Beckford, SPECIAL LOAN OFFICER [address] [place] [address] 10/31/2025 11:00 AM EST Office Visit [facility] [address] [place] [address] Rad Galvan MD [address] [place] [address] documented as of this encounter Visit Diagnoses Diagnosis Diabetic peripheral neuropathy associated with type 2 diabetes mellitus documented in this encounter Additional Health Concerns Assessment Noted Time PHQ-2 Depression Total Score: 1 02/17/20 24 10:24 AM EDT documented as of this encounter Care Teams Private Mortgage Banker Safe Relationship Specialty Start Date End Date Rad Galvan MD [address] [place] [address] PCP - General Family Medicine 04/15/22 documented as of this encounter
--- OUTSIDE RECORDS SUMMARY | 2025-08-17 01:23 | XMS_ITS | Encounter Summary ---
Author Organization [facility] Address [address] [place] [address] Care Team Providers Care Single Spindle Screw Machine Operator Name Role Phone Rad Galvan MD Primary Care Provider + Reason for Visit * Reason Onset Date Comments ORDERS 07/29/2025 Encounter Details Date Type Department Care Team (Late st Contact Info) Description 07/29/2025 Telephone [facility] [address] [place] [address] Rad Galvan MD [address] [place] [address] ORDERS Social History Tobacco Use [...] Edwards Relationship: Self Best call back number: [phone] What is the best time to reach you: ANYTIME Who are you requesting to speak with (clinical staff, provider, specific staff member): CLINICAL STAFF What was the call regarding: PATIENT IS CALLING TO SEE IF SHE CAN HAVE LABS DRAWN FOR HER UPCOMING WELLNESS VISIT, INCLUDING THE A1C, BE SENT TO [facility] Is it okay if the provider responds through MyChart: YES documented in this encounter Plan of Treatment Upcoming Encounters Date Type Department Care Team (Late st Contact Info) Description 08/17/2025 2:00 PM EDT Office Visit [facility] [address] [place] [phone] Desi Beckford, ELA TEACHER [address] [place] [address] 10/31/2025 11:00 AM EST Office Visit [facility] [address] [place] [address] Rad Galvan MD [address] [place] [address] documented as of this encounter Visit Diagnoses Not on filedocumented in this encounter Additional Health Concerns Assessment Noted Time PHQ-2 Depression Total Score: 1 02/17/20 24 10:24 AM EDT documented as of this encounter Care Teams Single Spindle Screw Machine Operator Relationship Specialty Start Date End Date Rad Galvan MD [address] [place] [address] PCP - General Family Medicine 04/15/22 documented as of this encounter
--- OUTSIDE RECORDS SUMMARY | 2025-08-17 01:23 | XMS_ITS | Encounter Summary ---
Author Organization [facility] Address [address] [place] [id number] Care Team Providers Care Cartridge Assembling Machine Adjuster Name Role Phone Rad Galvan MD Primary Care Provider + Encounter Details Date Type Department Care Team (Late st Contact Info) Description 08/02/2025 Documentation [facility] [address] [facility] [address] [place] [phone] Stormy Wade PA [address] [facility] [address] [place] [address] Social History Tobacco Use Types Packs/Day Years [...] 08/17/2025 2:00 PM EDT Office Visit [facility] [address] [place] [address] Desi Beckford, MOLD LOFT WORKER [address] [place] [address] 10/31/2025 11:00 AM EST Office Visit [facility] [address] [place] [address] Rad Galvan MD [address] [place] [address] documented as of this encounter Visit Diagnoses Not on filedocumented in this encounter Additional Health Concerns Assessment Noted Time PHQ-2 Depression Total Score: 1 02/17/20 24 10:24 AM EDT documented as of this encounter Care Teams Cartridge Assembling Machine Adjuster Relationship Specialty Start Date End Date Rad Galvan MD [address] [place] [address] PCP - General Family Medicine 04/15/22 documented as of this encounter
--- OUTSIDE RECORDS SUMMARY | 2025-08-17 01:23 | XMS_ITS ---
Author Organization [facility] Address [address] [place] [address] Care Team Providers Care Heel Trimmer Name Role Phone Rad Galvan MD Primary Care Provider + [facility] Status:Enrolled (Active) Start date:04/13/2025 Enrollment date:04/13/2025 Current support & services provided:Adherence- Cholesterol, Adherence- Hypertension Linked medications:Atorvastatin Calcium (Active), Valsartan (Active) Overview Atorvastatin and valsartan filled 03/26/2025 #30 day both have refills Case Team Name Relationship Phone Danielle Da Silva LPN(Responsible Staff) Licensed Mane cody Nurse Continued Care and Services Coordination
--- OUTSIDE RECORDS SUMMARY | 2025-08-17 01:24 | XMS_ITS | Encounter Summary ---
Author Organization [facility] Address [address] [place] [id number] Care Team Providers Care Psych Specialist Name Role Phone Rad Galvan MD [...] EDT Office Visit [facility] MEDICINE [address] [address] Desi Beckford, MEAGAN [address] [place] [address] 10/31/2025 11:00 AM EST Office Visit [facility] FAMILY MEDICINE [address] [address] Rad Galvan MD [address] [place] [address] documented as of this encounter Visit Diagnoses Not on filedocumented in this encounter Additional Health Concerns Assessment Noted Time PHQ-2 Depression Total Score: 1 02/17/20 24 10:24 AM EDT documented as of this encounter Care Teams Psych Specialist Relationship Specialty Start Date End Date Rad Galvan MD [address] [place] [address] PCP - General Family Medicine 04/15/22 documented as of this encounter
--- OUTSIDE RECORDS SUMMARY | 2025-08-17 01:24 | XMS_ITS | Clinical Summary ---
Author Organization [facility] Address [address] [place] [address] Care Team Providers Care Senior Contracts Administrator Name Role Phone Rad Galvan MD Primary Care Provider + Allergies Active Allergy Reactions Criticality Noted Date Comments Empagliflozin Itching Low 01/21/2025 Metoclopramide Rash Low 04/15/2022 Medications [place]-3 Fatty Acids (fish oil) 1000 MG capsule [...] tablet 11 024 Active Comfort EZ Pen Valatie 32G X 6 MM [facility] USE DIRECTED FOR insulin injections 100 each [...] by mouth Daily. 025 Active Continuous Glucose Service Parts Driver (FreeStyle Simón 3 Summit [place]) deviceIndication s:Type 2 diabetes mellitus with hypoglycemia [...] chloride (KLOR-CON M20) 20 MEQ CR tabletIndication s:[facility] current use of diuretic TAKE ONE TABLET [...] & Plan (08/01/2025 11:01 AM EDT): {Diabetes (Optional):[id number]} Assessment & Plan (01/20/2025 11:47 AM EST): [...] evening. She will be referred back to [facility] podiatry for topical interventions that may [...] & Plan (08/01/2025 11:01 AM EDT): {CHF (Optional):57548} Seizure disorder 04/15/2022 Assessment & Plan (08/01/2025 11:01 AM EDT): Encounters Date Type Department Care Team Description 08/15/2025 External PBMM Data [facility] CALL [facility] [address] [facility] [place] [address] Pharmacy, Payor Data 08/02/2025 Telephone [facility] FAMILY MEDICINE [address] [place] [address] Rad Galvan MD PHARMACY CALLS 08/02/2025 Documentation [facility] CARDIOLOGY [address] [place] [address] Stormy Wade PA 08/01/2025 10:15 AM EDT Office Visit [facility] MEDICINE [address] [place] [address] Rad Galvan MD Type 2 diabetes mellitus [...] long-term current use of insulin 08/01/2025 Refill [facility] [address] [place] [address] Rad Galvan MD Diabetic peripheral neuropathy associated with type 2 diabetes mellitus 08/01/2025 Travel 07/29/2025 Telephone [facility] [address] [facility] [place] [address] Rad Galvan MD ORDERS 07/18/2025 Telephone [facility] [address] [place] [address] Rad Galvan MD PHARMACY CALLS 07/18/2025 Telephone [facility] [address] [place] [address] Rad Galvan MD 07/15/2025 Telephone [facility] [address] [place] [address] Rad Galvan MD CALLBACK REQUEST 07/15/2025 [facility] [address] [place] [address] Rad Galvan MD New Med Request 07/13/2025 10:53 AM EDT - 07/13/2025 11:59 PM EDT Hospital Encounter [facility] XRAY [address] [place] [address] Sidney Barraza MD Discharge Disposition: Home or Self Care 07/13/2025 9:00 AM EDT Office Visit [facility] CARDIOLOG[facility] [address] [address] Sidney Barraza MD Chronic HFrEF (heart failure with reduced ejection fraction) (Primary Dx); Longstanding persistent atrial fibrillation 07/13/2025 Travel 07/07/2025 11:15 AM EDT Office Visit [facility] MEDICINE [address] [place] [address] Rad Galvan MD Left ventricular systolic dysfunction, chronic (Primary Dx); Viral cardiomyopathy; Nocturnal headaches; Obstructive sleep apnea 07/07/2025 Travel 06/30/2025 Travel 06/30/2025 Refill [facility] MEDICINE [address] [place] [address] Rad Galvan MD Longstanding persistent atrial fibrillation; Seizure disorder 06/28/2025 Telephone [facility] [address] [place] [address] Rad Galvan MD PAPERWORK REQUEST; PAPERWORK REQUEST - SEVERAL CALLS 06/27/2025 Telephone [facility] MEDICINE [address] [place] [address] Rad Galvan MD PAPERWORK REQUEST 06/21/2025 Telephone [facility] [address] [place] [address] Rad Galvan MD FOLLOW UP ON FAX 06/02/2025 Refill [facility] MEDICINE [address] [place] [address] Rad Galvan MD Longstanding persistent atrial fibrillation; [...] Description 08/17/2025 2:00 PM EDT Office Visit [facility] MEDICINE [address] [place] [address] Desi Beckford, MEAGAN [address] [place] [address] 10/31/2025 11:00 AM EST Office Visit [facility] MEDICINE [address] [place] [address] Rad Galvan MD [address] [place] [address] Health Maintenance Due Date Last Done Comments COLON CANCER SCREENING 5 YEA R SIGMOIDOSCOPY 2002 CT COLONOGRAPHY 2002 FECAL OCCULT BLOOD TEST 2002 FIT Testing (1 year) 2002 TDAP/TD VACCINES (2 - Tdap) 01/23/2007 01/23/1997 ZOSTER VACCINE (1 of 2) 2007 DIABETIC EYE EXAM 02/13/2022 02/13/2021 DXA SCAN 02/18/2025 02/18/2023, 02/18/2023 MAMMOGRAM 02/18/2025 02/18/2023, 01/23, 02/18/2023, Additional history exists INFLUENZA VACCINE 06/24/2025 09/24/2024, , 09/06/2022, Additional history exists COVID-19 Vaccine (2024- 6 season) 2025 09/06/2022, 11/28/2021, 03/06/2021, Additional history exists URINE MICROALBUMIN-CREATININ E RATIO (uACR) 01/07/2026 01/07/2025 HEMOGLOBIN A1C 01/29/2026 [...] Priority Date/Time Associated Diagnosis Comments SCANNED EKG 08/07/2025 SCANNED EKG 08/07/2025 SCANNED - LABS 08/07/2025 SCANNED - LABS 08/07/2025 SCANNED - LABS 08/07/2025 SCANNED - LABS 08/07/2025 SCANNED - IMAGING 08/07/2025 SCANNED - IMAGING 08/07/2025 SCANNED - IMAGING 08/07/2025 SCANNED - IMAGING 08/07/2025 SCANNED - IMAGING 08/07/2025 SCANNED - IMAGING 08/07/2025 POCT GLYCOSYLATED HEMOGLOBIN (HGB A1C) Routine 08/01/2025 [...] to Health Maintenance Results * ECG Scan (08/07/2025) Only the most recent of6 resultswithin the time period is included. Rad Galvan MD ECG ORDERABLES Final Re sult * IMAGING SCANNED (08/07/2025) Only the most recent of11 resultswithin the time period is included. Anatomical Region Laterality Modality Radiographic Gracie ging Rad Galvan MD IMG DIAGNOSTIC IMAGING O RDERABLES Final Result * LABS SCANNED (08/07/2025) Only the most recent of8 resultswithin the time period is included. Rad Galvan MD LAB BLOOD ORDERABLES Fin al Result * (ABNORMAL) POC Glycosylated Hemoglobin (Hb A1C) (08/01/2025 10:40 AM EDT) Hemoglobin A1C 7.2(A) 4.5 - 5.7 % [facility] Lot Number [id number] [facility] Expiration Date 03/09/2027 [facility] Blood 08/01/2025 10:4 0 AM EDT Rad Galvan MD POINT OF CARE TEST ORDER RICH Final Result [facility]
[address] [place] [address], * FOOT EXAM SCANNED (07/26/2025) Rad Galvan [...] MD 07/13/2025 4:13 PM EDT Workstation ID: [id number] Narrative 07/13/2025 4:13 PM EDT XR CHEST [...] MD 07/13/2025 4:13 PM EDT Workstation ID: [id number] Result [facility] Sidney Barraza MD IMG DIAGNOSTIC IMAGING [...] atrial fibrillation and paced BPM: 77 Result [facility] Sidney Barraza MD ECG ORDERABLES Final Result * Overnight Sleep Oximetry Study (07/11/2025) Result [facility] Rad Galvan MD RESPIRATORY CARE ORDERAB LES Final Result * (ABNORMAL) Albumin/Creatinine Ratio Urine (01/07/2025 3:18 PM EST) Pathologist [facility] POC ALBUMIN, URINE 30 mg/L POC CREATININE, URINE 50 mg/dL POC Urine Albumin Creatinine Ratio 30-300 <30 Comment:abnormal Lot Number [id number] Expiration Date 10/23/2025 Urine 01/07/2025 3:18 PM EST Result [facility] Rad Galvan MD POINT OF CARE TEST ORDER RICH Final Result * SCANNED - MAMMO (02/18/2023) Anatomical Region Laterality Modality Other Result [facility] Rad Galvan MD CHART REVIEW TABS Fin al Result * SCANNED - DEXA (02/18/2023) Anatomical Region Laterality Modality Other Result [facility] Rad Galvan MD CHART REVIEW TABS Fin al Result * (ABNORMAL) Cologuard - Stool, Per Rectum (02/15/2023 4:07 PM EDT) Cologuard Positive( A) Negative 02/25/2023 5:18 PM EDT [employer] (CLIA #:[id number]) Comment: POSITIVE TEST RESULT. A positive Cologuard [...] Valdes et al, N Engl J Med 2014;370(14):7588-3900.) Cologuard may produce a false negative or false positive result (no colorectal cancer or precancerous polyp present at colonoscopy follow up). A negative Cologuard test result does not guarantee the absence of CRC or advanced adenoma (pre-cancer). The current Cologuard screening interval is every 3 years. ([place] [employer] Society and U.S. Multi-Society Task Force). Cologuard performance data in a 10,000 patient pivotal study using colonoscopy as the reference method can be accessed at the following location: www.Furious/results. Additional description of the Cologuard test process, warnings and precautions can be found at www.colSolarEdgerd.In Flow. Stool specimen (specimen) Specimen from rectum / Unknown 02/15/2023 4:07 PM EDT 02/18/2023 3:05 PM EDT Rad Galvan MD BODY FLUIDS AND STOOLS O RDERABLES Final Result [employer] (CLIA #:[id number]) [address] [place] [address], from Last 3 Months or Most Recently Relevant to Health Maintenance Insurance [facility] Medicare [employer] PPO Care Teams Senior Contracts Administrator Relationship Specialty Start Date End Date Rad Galvan MD [address] [place] [address] PCP - General Family Medicine 04/15/22
--- OUTSIDE RECORDS SUMMARY | 2025-08-17 01:24 | XMS_ITS | Encounter Summary ---
Author Organization [facility] Address [address] [place] [address] Care Team Providers Care Training Systems Officer Name Role Phone Rad Galvan MD Primary Care Provider + Reason for Visit * Reason Onset Date Comments PHARMACY CALLS 08/02/2025 Encounter Details Date Type Department Care Team (Late st Contact Info) Description 08/02/2025 Telephone [facility] FAMILY MEDICINE [address] [place] [address] Rad Galvan MD [address] [place] [address] PHARMACY CALLS Social History Tobacco [...] MD - 08/02/2025 1:35 PM EDT Patient's radiologic technologist will have to contacted. * Telephone Encounter - Marlen Mittal RegSched Rep - 08/02/2025 9:26 AM EDT Pharmacy Name: [facility] [place] - [address] - [phone] - [phone] Pharmacy labor relations representative name: ROSALBA Pharmacy labor relations representative phone number:[phone] What medication are you calling in regards to: SPIRONOLACTONE What question does the pharmacy have: THE PATIENT TOLD THE PHARMACY THAT HER FEED BLENDER INCREASEDHER DOSE FROM ONE 25 MG TABLET TO TWO 25MG TABLETS THE PHARMACY DID NOT GET A NEW PRESCRIPTION AND THE PATIENT TOLD THE PHARMACY TO CALL DOCTOR MARYCARMEN TO ASK FOR THAT documented in this encounter Plan of Treatment Upcoming Encounters Date Type Department Care Team (Late st Contact Info) Description 08/17/2025 2:00 PM EDT Office Visit [facility] MEDICINE [address] [place] [address] Desi Beckford APRN [address] [place] [address] 10/31/2025 11:00 AM EST Office Visit [facility] FAMILY MEDICINE [address] [place] [address] Rad Galvan MD [address] [place] [address] documented as of this encounter Visit Diagnoses Not on filedocumented in this encounter Additional Health Concerns Assessment Noted Time PHQ-2 Depression Total Score: 1 02/17/20 24 10:24 AM EDT documented as of this encounter Care Teams Training Systems Officer Relationship Specialty Start Date End Date Rad Galvan MD [address] [place] [address] PCP - General Family Medicine 04/15/22 documented as of this encounter
--- OUTSIDE RECORDS SUMMARY | 2025-08-17 01:24 | XMS_ITS | Encounter Summary ---
Author Organization [facility] Address [address] [place] [address] Care Team Providers Care Corporate Human Resources Manager Name Role Phone Uli Slacedo Unavailable [phone] Rad Galvan MD Primary Care Provider [phone] Reason for Referral * Imaging (Routine) - Pending Review Specialty Diagnoses / Procedures Referred By Contac t Referred To Contact Cardiology Diagnoses Chronic combined systolic and diastolic congestive heart failure Procedures Echo, Adult Transthoracic Complete Elvin Schuler MD [address] [place] [address] Phone: tel: fax: Referral ID Status Reason Start Date Expiration Date Visits Requested Visits Authorized [id number] Pending Review Perform Procedure 07/27/2025 01/26/2027 1 1 Encounter Details Date Type Department Care Team (Late st Contact Info) Description 07/27/2025 Telephone [facility] [address] [facility] [place] [address] Yaritza Johnson, RN [facility] [address] [place] [address] Social History Tobacco Use Types Packs/Day Years [...] Wish to be (Past 1 Month) No 07/27/2025 8:16 AM EDT Alexsandra Lee RN 2. Non-Specific Active Suici richard Thoughts (Past 1 Month) No 07/27/2025 8:16 AM EDT Chaitanya Lee RN 6. Suicidal Behavior (Lifetime) No [...] PM EDT Appointment Cardiac Imaging [address] [place] [address] 09/16/2025 4:00 PM EDT Office Visit [facility] [address] [facility] [place] [address] Elvin Schuler MD [address] [place] [address] Scheduled Orders Name Type Priority Associated Diagnoses Order Schedule Echo, Adult Transthoracic Complete Echocardiography Routine Chronic combined systolic and diastolic congestive heart failure (CMS/HCC) Expected: 07/27/2025 (Approximate), Expires: 01/28/2027 documented as of this encounter Visit Diagnoses Diagnosis Chronic combined systolic and diastolic congestive heart failure- Primary documented in this encounter Additional Health Concerns Assessment Noted Time PHQ-9 Depression Total Score: 10 025 1:50 PM EDT A fall risk assessment has been complete d for the patient 07/08/2025 1:43 PM EDT A Body Mass Index follow-up plan has been documented for the patient 07/27/2025 9:48 AM EDT documented as of this encounter Care Teams Corporate Human Resources Manager Relationship Specialty Start Date End Date Rad Galvan MD [address] [place] [address] PCP - General 04/08/25 Uli Salcedo PA [address] [place] [address] Referring Physician 02/03/25 documented as of this encounter
--- OUTSIDE RECORDS SUMMARY | 2025-08-17 01:24 | XMS_ITS | Encounter Summary ---
Author Organization [facility] Address [address] [place] [id number] Care Team Providers Care Energy Operations Vice President Name Role Phone Rad Galvan MD Primary [...] [facility] MEDICINE [address] [place] [address] Desi Beckford, SPECIAL PROCEDURES NURSE [address] [place] [address] 10/31/2025 11:00 AM EST Office Visit [facility] MEDICINE [address] [place] [address] Rad Galvan MD [address] [place] [address] documented as of this encounter Visit Diagnoses Not on filedocumented in this encounter Additional Health Concerns Assessment Noted Time PHQ-2 Depression Total Score: 1 02/17/20 24 10:24 AM EDT documented as of this encounter Care Teams Energy Operations Vice President Relationship Specialty Start Date End Date Rad Galvan MD [address] [place] [address] PCP - General Family Medicine 04/15/22 documented as of this encounter
--- OUTSIDE RECORDS SUMMARY | 2025-08-17 01:24 | XMS_ITS | Encounter Summary ---
Author Organization [facility] Address [address] [place] [id number] Care Team Providers Care Actuary Name Role Phone Uli Salcedo Unavailable [phone] Rad Galvan MD Primary Care Provider Reason for Visit * Reason Onset Date Comments Med Refill 08/04/2025 Encounter Details Date Type Department Care Team (Late st Contact Info) Description 08/04/2025 Refill [facility] [place] [address] [facility] [place] [address] Yaritza Johnson, RN [facility] [address] [place] [address] Social History Tobacco Use Types Packs/Day Years [...] PM EDT Appointment Cardiac Imaging [address] [place] [address] 09/16/2025 4:00 PM EDT Office Visit [facility] [place] [facility] [address] [place] [address] Elvin Schuler MD [address] [place] [address] documented as of this encounter Visit Diagnoses [...] documented as of this encounter Care Teams Actuary Relationship Specialty Start Date End Date Rad Galvan MD [address] [place] [address] PCP - General 04/08/25 Uli Salcedo PA [address] [place] [address] Referring Physician 02/03/25 documented as of this encounter
--- OUTSIDE RECORDS SUMMARY | 2025-08-17 01:25 | XMS_ITS | Encounter Summary ---
Author Organization [facility] Address [address] [place] [address] Care Team Providers Care Od Grinder Operator Name Role Phone Rad Galvan MD Primary Care Provider + Reason for Visit * Reason Onset Date Comments New Med Request 07/15/2025 Encounter Details Date Type Department Care Team (Late st Contact Info) Description 07/15/2025 Telephone [facility] FAMILY MEDICINE [address] [place] [address] Rad Galvan MD [address] [place] [address] New Med Request Social History [...] Edwards Relationship: Self Best call back number: [phone] What medication are you requesting: ANXIETY MEDICATION 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 How long have you been experiencing symptoms: INFORMED LAST WEEK Have you had these symptoms before: [] Yes [x] No Have you been treated for these symptoms before: [] Yes [x] No If a prescription is needed, what is your preferred pharmacy and phone number: [facility] [address] - [phone] - [phone] FX Additional notes: PATIENT WOULD LIKE A CALL BACK FROM PCP documented in this encounter Plan of Treatment Upcoming Encounters Date Type Department Care Team (Late st Contact Info) Description 08/17/2025 2:00 PM EDT Office Visit [facility] MEDICINE [address] [place] [address] Desi Beckford, [place] [address] [place] [address] 10/31/2025 11:00 AM EST Office Visit [facility] MEDICINE [address] [place] [address] Rad Galvan MD [address] [place] [address] documented as of this encounter Visit Diagnoses Not on filedocumented in this encounter Additional Health Concerns Assessment Noted Time PHQ-2 Depression Total Score: 1 02/17/20 24 10:24 AM EDT documented as of this encounter Care Teams Od Grinder Operator Relationship Specialty Start Date End Date Rad Galvan MD [address] [place] [address] PCP - General Family Medicine 04/15/22 documented as of this encounter
--- OUTSIDE RECORDS SUMMARY | 2025-08-17 01:25 | XMS_ITS | Encounter Summary ---
Author Organization [facility] Address [address] [place] [address] Care Team Providers Care Record Maker Name Role Phone Uli Salcedo Unavailable [phone] Rad Galvan MD Primary Care Provider [phone] Encounter Details Date Type Department Care Team (Latest Contact Info) Description 08/09/2025 Travel Social History Tobacco Use Types Packs/Day [...] PM EDT Appointment Cardiac Imaging [address] [place] [address] 09/16/2025 4:00 PM EDT Office Visit [facility] [address] [place] [address] Elvin Schuler MD [address] [place] [address] documented as of this encounter Visit Diagnoses [...] documented as of this encounter Care Teams Record Maker Relationship Specialty Start Date End Date Rad Galvan MD [address] [place] [address] PCP - General 04/08/25 Uli Salcedo PA [address] [place] [address] Referring Physician 02/03/25 documented as of this encounter
--- OUTSIDE RECORDS SUMMARY | 2025-08-17 01:25 | XMS_ITS | Encounter Summary ---
Author Organization [facility] Address [address] [place] [id number] Care Team Providers Care Labor Mediator Name Role Phone Rad Galvan MD Primary Care Provider + Reason for Visit * Reason Comments Med Refill Encounter Details Date Type Department Care Team (Late st Contact Info) Description 06/30/2025 Refill [facility] MEDICINE [address] [facility] [place] [address] Rad Galvan MD [address] [facility] [place] [address] Longstanding persistent atrial fibrillation; Seizure [...] Visit [facility] MEDICINE [address] [facility] [place] [address] Desi Beckford, FIELD CROP HARVEST WORKER [address] [place] [address] 10/31/2025 11:00 AM EST Office Visit [facility] FAM[facility] MEDICINE [address] [place] [address] Rad Galvan MD [address] [place] [address] documented as of this encounter Visit Diagnoses Diagnosis Longstanding persistent atrial fibrillation Seizure disorder Unspecified epilepsy without mention of intractable epilepsy documented in this encounter Additional Health Concerns Assessment Noted Time PHQ-2 Depression Total Score: 1 02/17/20 24 10:24 AM EDT documented as of this encounter Care Teams Labor Mediator Relationship Specialty Start Date End Date Rad Galvan MD [address] [place] [address] PCP - General Family Medicine 04/15/22 documented as of this encounter
--- OUTSIDE RECORDS SUMMARY | 2025-08-17 01:25 | XMS_ITS | Encounter Summary ---
Author Organization [facility] Address [address] [place] [address] Care Team Providers Care Liquor Establishment Manager Name Role Phone Rad Galvan MD Primary Care Provider + Reason for Visit * Reason Onset Date Comments PHARMACY CALLS 07/18/2025 Encounter Details Date Type Department Care Team (Late st Contact Info) Description 07/18/2025 Telephone [facility] [address] [place] [address] Rad Galvan MD [address] [place] [address] PHARMACY CALLS Social History Tobacco [...] - 07/18/2025 2:16 PM EDT Pharmacy Name: [facility] [place] - [address] - [phone] - [phone] Pharmacy teleservices representative name: [facility] Pharmacy teleservices representative phone number: [phone] What medication are you calling in regards [...] Description 08/17/2025 2:00 PM EDT Office Visit [facility] [address] [place] [address] Desi Beckford, FEATHER MIXER [address] [place] [address] 10/31/2025 11:00 AM EST Office Visit [facility] [address] [place] [address] Rad Galvan MD [address] [place] [address] documented as of this encounter Visit Diagnoses Not on filedocumented in this encounter Additional Health Concerns Assessment Noted Time PHQ-2 Depression Total Score: 1 02/17/20 24 10:24 AM EDT documented as of this encounter Care Teams Liquor Establishment Manager Relationship Specialty Start Date End Date Rad Galvan MD [address] [place] [address] PCP - General Family Medicine 04/15/22 documented as of this encounter
--- OUTSIDE RECORDS SUMMARY | 2025-08-17 01:25 | XMS_ITS | Encounter Summary ---
Author Organization [facility] Address [address] [id number] Care Team Providers Care Credit Verification Clerk Name Role Phone Rad Conroy MD Primary Care Provider + Reason for Visit * Reason Onset Date Comments FOLLOW UP ON FAX 06/21/2025 Encounter Details Date Type Department Care Team (Late st Contact Info) Description 06/21/2025 Telephone [facility] MEDICINE [address] [place] [address] Rad Conroy MD [address] [place] [address] FOLLOW UP ON FAX Social [...] Rep - 06/21/2025 9:55 AM EDT Caller: needmade Relationship: Other Best call back number: [phone] OPTION 2 Equipment requested: [employer] Prescribing [...] Description 08/17/2025 2:00 PM EDT Office Visit [facility] [address] [place] [address] Desi Beckford, REVENUE ACCOUNTANT [address] [place] [address] 10/31/2025 11:00 AM EST Office Visit [facility] [address] [place] [address] Rad Conroy MD [address] [place] [address] documented as of this encounter Visit Diagnoses Not on filedocumented in this encounter Additional Health Concerns Assessment Noted Time PHQ-2 Depression Total Score: 1 02/17/20 24 10:24 AM EDT documented as of this encounter Care Teams Credit Verification Clerk Relationship Specialty Start Date End Date Rad Conroy MD [address] [place] [address] PCP - General Family Medicine 04/15/22 documented as of this encounter
--- OUTSIDE RECORDS SUMMARY | 2025-08-17 01:25 | XMS_ITS | Encounter Summary ---
Author Organization [facility] Address [address] [place] [address] Care Team Providers Care Plant Quality Manager Name Role Phone Rad Galvan MD Primary Care Provider + Reason for Visit * Reason Onset Date Comments PAPERWORK REQUEST 06/28/2025 PAPERWORK REQUEST - SEVERAL CALLS 06/28/2025 Encounter Details Date Type Department Care Team (Late st Contact Info) Description 06/28/2025 Telephone [facility] FAMILY MEDICINE [address] [place] [address] Rad Galvan MD [address] [place] [address] PAPERWORK REQUEST; PAPERWORK REQUEST - [...] 07/04/2025 1:22 PM EDT Caller: SARAHY - [employer] Relationship: Other Best call back number: [phone] What form or medical record are you requesting: DR. COX WITH SIGNATURE. THEY REC'D COPIES UNSIGNED. THEY HAVE CALLED AND SENT FAX REGARDING Who is requesting this form or medical record from you: [employer] How would you like to receive the form or medical records (pick-up, mail, fax): FAX If fax, what is the fax number: [phone] If mail, what is the address: If pick-up, provide patient with address and location details Timeframe paperwork needed: MAREK * Telephone Encounter - Gabi Lee RegSched Rep - 06/28/2025 10:43 AM EDT Caller: ESTEVAN Relationship: Other [employer] Best call back number: [phone] OPTION 2 What form or medical record are you requesting: CLINICAL NOTES FROM [id number] Who is requesting this form or medical record from you: [employer] How would you like to receive the form or medical records (pick-up, mail, fax): If fax, what is the fax number: [phone] Timeframe paperwork needed: MAREK Additional notes: THEY [...] Description 08/17/2025 2:00 PM EDT Office Visit [facility] MEDICINE [address] [place] [address] Desi Beckford APRN [address] [place] [address] 10/31/2025 11:00 AM EST Office Visit [facility] [address] [place] [address] Rad Galvan MD [address] [place] [address] documented as of this encounter Visit Diagnoses Not on filedocumented in this encounter Additional Health Concerns Assessment Noted Time PHQ-2 Depression Total Score: 1 02/17/20 24 10:24 AM EDT documented as of this encounter Care Teams Plant Quality Manager Relationship Specialty Start Date End Date Rad Galvan MD [address] [place] [address] PCP - General Family Medicine 04/15/22 documented as of this encounter
--- OUTSIDE RECORDS SUMMARY | 2025-08-17 01:25 | XMS_ITS | Encounter Summary ---
Author Organization [facility] Address [address] [place] [id number] Care Team Providers Care Ream Cutter Name Role Phone Rad Galvan MD Primary [...] Description 08/17/2025 2:00 PM EDT Office Visit [facility] MEDICINE [address] [place] [address] Desi Beckford, CLIENT LIAISON [address] [place] [address] 10/31/2025 11:00 AM EST Office Visit [facility] MED[facility] [address] [place] [address] Rad Galvan MD [address] [facility] [place] [address] documented as of this encounter Visit Diagnoses Not on filedocumented in this encounter Additional Health Concerns Assessment Noted Time PHQ-2 Depression Total Score: 1 02/17/20 24 10:24 AM EDT documented as of this encounter Care Teams Ream Cutter Relationship Specialty Start Date End Date Rad Galvan MD [address] [place] [address] PCP - General Family Medicine 04/15/22 documented as of this encounter
--- OUTSIDE RECORDS SUMMARY | 2025-08-17 01:25 | XMS_ITS | Encounter Summary ---
Author Organization [facility] Address [address] [place] [address] Care Team Providers Care Chalker Soles Name Role Phone Rad Galvan MD Primary Care Provider + Reason for Visit * Reason Onset Date Comments CALLBACK REQUEST 07/15/2025 Encounter Details Date Type Department Care Team (Late st Contact Info) Description 07/15/2025 Telephone [facility] FAMILY MEDICINE [address] [place] [address] Rad Galvan MD [address] [place] [address] CALLBACK REQUEST Social History Tobacco [...] Clinic Pharmacy. Also spoke w/ Yefri at [employer], he said, disregard this phone call they have all the information they need at this time. * Telephone Encounter - Rose Marie Chamberlain MA - 07/15/2025 3:47 PM EDT Pt is also requesting an order for an automated BP cuff be sent in to Clinic Pharmacy. She talked to [employer] today and they told her, that is all you had to do and they would pay for it. * Telephone Encounter - Yarely Painter RegSched Rep - 07/15/2025 2:14 PM EDT Caller: CANDELARIA - [employer] Relationship: Best call back number: [phone] What is the best time to reach [...] Description 08/17/2025 2:00 PM EDT Office Visit [facility] FAM[facility] MEDICINE [address] [place] [address] Desi Beckford, BUCKLE STRINGER [address] [place] [address] 10/31/2025 11:00 AM EST Office Visit [facility] MED[facility] [address] [place] [address] Rad Galvan MD [address] [place] [address] documented as of this encounter Visit Diagnoses Not on filedocumented in this encounter Additional Health Concerns Assessment Noted Time PHQ-2 Depression Total Score: 1 02/17/20 24 10:24 AM EDT documented as of this encounter Care Teams Chalker Soles Relationship Specialty Start Date End Date Rad Galvan MD [address] [place] [address] PCP - General Family Medicine 04/15/22 documented as of this encounter
--- OUTSIDE RECORDS SUMMARY | 2025-08-17 01:25 | XMS_ITS | Encounter Summary ---
Author Organization [facility] Address [address] [place] [address] Care Team Providers Care Timber Surveyor Name Role Phone Uli Salcedo Unavailable [phone] Rad Galvan MD Primary Care Provider [phone] Reason for Visit * Reason Onset Date Comments HCN - Patient Message 08/09/2025 Encounter Details Date Type Department Care Team (Late st Contact Info) Description 08/09/2025 Telephone [facility] [facility] [address] [facility] [place] [address] Elvin Schuler MD [address] [place] [address] HCN - Patient Message Social [...] Telephone Encounter - Yaritza Johnson RN - 08/09/2025 9:16 AM EDT Contacted Ms alcantar. Ms Alcantar reported she was currently admitted to [facility]. She is aware to contact me once d/c and will request d/c summary. * Telephone Encounter - Mary Ann Pugh - 08/09/2025 8:47 AM EDT Clinical Concern/Question Reason for Call: pt would like to speak to yaritza. She is currently in admitted to the hospital and would like to speak to her about her admission. Best contact number: [phone] (mobile) Optimal time of day to reach caller: ANYTIME Additional comments/information from caller: None Note: Please do not reply to this message. Follow-up communication and further actions as a result of this message need to be communicated with the patient directly, if the patient is not active onMyChart. If the patient is active on MyChart, they will receive notification of the communication/outcome via appruptt. documented in this encounter Plan of Treatment Upcoming Encounters Date Type Department Care Team (Late st Contact Info) Description 09/16/2025 2:30 PM EDT Appointment Cardiac Imaging [address] [place] [address] 09/16/2025 4:00 PM EDT Office Visit [facility] [address] [place] [address] Elvin Schuler MD [address] [place] [address] documented as of this encounter Visit Diagnoses [...] documented as of this encounter Care Teams Timber Surveyor Relationship Specialty Start Date End Date Rad Galvan MD [address] [place] [address] PCP - General 04/08/25 Uli Salcedo PA [address] [place] [address] Referring Physician 02/03/25 documented as of this encounter
--- OUTSIDE RECORDS SUMMARY | 2025-08-17 01:25 | XMS_ITS | Encounter Summary ---
Author Organization [facility] Address [address] [place] [address] Care Team Providers Care Blunger Machine Operator Name Role Phone Uli Salcedo Unavailable [phone] Rad Galvan MD Primary Care Provider [phone] Encounter Details Date Type Department Care Team (Latest Contact Info) Description 08/15/2025 Travel Social History Tobacco Use Types Packs/Day [...] PM EDT Appointment Cardiac Imaging [address] [place] [address] 09/16/2025 4:00 PM EDT Office Visit [facility] [place] [facility] [address] [place] [address] Elvin Schuler MD [address] [place] [address] documented as of this encounter Visit Diagnoses [...] documented as of this encounter Care Teams Blunger Machine Operator Relationship Specialty Start Date End Date Rad Galvan MD [address] [place] [address] PCP - General 04/08/25 Uli Salcedo PA [address] [place] [address] Referring Physician 02/03/25 documented as of this encounter
--- OUTSIDE RECORDS SUMMARY | 2025-08-17 01:25 | XMS_ITS | Encounter Summary ---
Author Organization [facility] Address [address] [place] [address] Care Team Providers Care Table Lever Operator Name Role Phone Uli Salcedo Unavailable [phone] Rad Galvan MD Primary Care Provider [phone] Encounter Details Date Type Department Care Team [...] Cady Coto documented as of this encounter Plan of Treatment Upcoming Encounters Date Type Department Care Team (Late st Contact Info) Description 09/16/2025 2:30 PM EDT Appointment Cardiac Imaging [address] [place] [address] 09/16/2025 4:00 PM EDT Office Visit [facility] [place] [facility] [address] [place] [address] Elvin Schuler MD [address] [place] [address] documented as of this encounter Visit Diagnoses [...] documented as of this encounter Care Teams Table Lever Operator Relationship Specialty Start Date End Date Rad Galvan MD [address] [place] [address] PCP - General 04/08/25 Uli Salcedo PA [address] [place] [address] Referring Physician 02/03/25 documented as of this encounter
--- OUTSIDE RECORDS SUMMARY | 2025-08-17 01:25 | XMS_ITS | Encounter Summary ---
Author Organization [facility] Address [address] [place] [address] Care Team Providers Care Laborer Golf Course Name Role Phone Uli Salcedo Unavailable [phone] Rad Galvan MD Primary Care Provider [phone] Encounter Details Date Type Department Care Team (Late st Contact Info) Description 08/09/2025 Orders Only [facility] [place] [facility] [address] [place] [address] Linda Garcia, RN CH-ADULT ECMO Chronic combined systolic and diastolic congestive heart failure (CMS/HCC) (Primary Dx) Social [...] PM EDT Appointment Cardiac Imaging [address] [place] [address] 09/16/2025 4:00 PM EDT Office Visit [facility] [address] [place] [address] Elvin cShuler MD [address] [place] [address] Scheduled Orders Name Type Priority Associated Diagnoses Order Schedule Cardiac Device Check - Remote Implantable Cardiac Device Routine Chronic combined systolic and diastolic congestive heart failure (CMS/HCC) 4 Occurrences starting 08/09/2025 until 08/09/2026 documented as of this encounter Visit Diagnoses [...] documented as of this encounter Care Teams Laborer Golf Course Relationship Specialty Start Date End Date Rad Galvan MD [address] [place] [address] PCP - General 04/08/25 Uli Salcedo PA [address] [place] [address] Referring Physician 02/03/25 documented as of this encounter
--- OUTSIDE RECORDS SUMMARY | 2025-08-17 01:25 | XMS_ITS | Encounter Summary ---
Author Organization [facility] Address [address] [place] [id number] Care Team Providers Care Spine Nurse Name Role Phone Rad Galvan MD Primary Care Provider + Encounter Details Date Type Department Care Team (Late st Contact Info) Description 07/18/2025 Telephone [facility] MEDIC[facility] [address] [place] [address] Rad Galvan MD [address] [place] [address] Social History Tobacco Use Types [...] 08/17/2025 2:00 PM EDT Office Visit [facility] [address] [place] [address] Desi Beckford, ALUM MIXER [address] [place] [address] 10/31/2025 11:00 AM EST Office Visit [facility] MEDICINE [address] [place] [address] Rad Galvan MD [address] [place] [address] documented as of this encounter Visit Diagnoses Not on filedocumented in this encounter Additional Health Concerns Assessment Noted Time PHQ-2 Depression Total Score: 1 02/17/20 24 10:24 AM EDT documented as of this encounter Care Teams Spine Nurse Relationship Specialty Start Date End Date Rad Galvan MD [address] [place] [address] PCP - General Family Medicine 04/15/22 documented as of this encounter
--- OUTSIDE RECORDS SUMMARY | 2025-08-17 01:25 | XMS_ITS | Encounter Summary ---
Author Organization [facility] Address [address] [place] [address] Care Team Providers Care Wellhead Pumper Name Role Phone Uli Salcedo Unavailable [phone] Rad Galvan MD Primary Care Provider [phone] Reason for Visit * Reason Onset Date Comments HCN - Patient Message 06/17/2025 Encounter Details Date Type Department Care Team (Late st Contact Info) Description 06/17/2025 Telephone [facility] [address] [facility] [place] [address] Elvin Schuler MD [address] [place] [address] HCN - Patient Message Social [...] to contact our office once discharged from [facility] and we can request records. Voiced understanding. Has appt scheduled with Dr Ortiz on 07/08 at 145 and Ms alcantar is aware * Telephone Encounter - Mami Aviles - 06/27/2025 2:08 PM EDT Status Update Call #1 1st call regarding the status of the initial request. Best contact number: [phone] (home) Optimal time of day to reach caller: ANYTIME Additional comments/information from caller: Pt called to let Neptali know that she was admitted at [facility]. No callback needed. Note: Please do not reply to this message. Follow-up communication and further actions as a result of this message need to be communicated with the patient directly, if the patient is not active onMyChart. If the patient is active on MyChart, they will receive notification of the communication/outcome via MyEveTabt. * Telephone Encounter - Neptali Johnson RN [...] RN - 06/21/2025 8:41 AM EDT Contacted [facility] to request lab results from yesterday. [place] stated they would fax. PAD reading 25 [...] optimal time of day to reach caller: [phone] Note: Please do not reply to this message. Follow-up communication and further actions as a result of this message need to be communicated with the patient directly, if the patient is not active onMyChart. If the patient is active on MyChart, they will receive notification of the communication/outcome via Ontela. * Telephone Encounter - Neptali Johnson RN [...] optimal time of day to reach caller: [phone] Note: Please do not reply to this [...] PM EDT Appointment Cardiac Imaging [address] [place] [address] 09/16/2025 4:00 PM EDT Office Visit [facility] [place] [address] [place] [address] Elvin Schuler MD [address] [place] [address] Scheduled Orders Name Type Priority Associated Diagnoses Orde r Schedule Basic Metabolic Panel, Plasma Lab Routine Chronic systolic congestive heart failure (CMS/HCC) Expected: 06/20/2025 (Approximate), Expires: 12/22/2026 N-Terminal Probnp, Plasma Lab Routine Chronic systolic congestive heart failure (CMS/HCC) Expected: 06/20/2025 (Approximate), Expires: 12/22/2026 documented as of this encounter Visit Diagnoses Diagnosis Chronic systolic congestive heart failure- Primary documented in this encounter Additional Health Concerns Assessment Noted Time PHQ-9 Depression Total Score: 0 04/08/20 25 11:00 AM EDT A fall risk assessment has been complete d for the patient 04/08/2025 10:45 AM EDT A Body Mass Index follow-up plan has been documented for the patient 04/08/2025 12:12 PM EDT documented as of this encounter Care Teams Wellhead Pumper Relationship Specialty Start Date End Date Rad Galvan MD [address] [place], [place] [address] PCP - General 04/08/25 Uli Salcedo PA [address] [place] [address] Referring Physician 02/03/25 documented as of this encounter
--- OUTSIDE RECORDS SUMMARY | 2025-08-17 01:25 | XMS_ITS | Encounter Summary ---
Author Organization [facility] Address [address] [place] [address] Care Team Providers Care Jukebox Coin Collector Name Role Phone Andrew Lee MD Primary Care Provider [phone] Uli Salcedo Unavailable [phone] Rad Galvan MD Primary Care Provider [phone] Encounter Details Date Type Department Care Team (Late st Contact Info) Description 01/11/2025 Orders Only External Location [address] [place] [address] Uli Salcedo PA [address] [place], [place] [address] Social History Tobacco Use Types Packs/Day Years [...] PM EDT Appointment Cardiac Imaging [address] [place] [address] 09/16/2025 4:00 PM EDT Office Visit [facility] [place] [facility] [address] [facility] [place] [address] Elvin Schuler MD [address] [place] [address] documented as of this encounter Procedures Procedure [...] on filedocumented in this encounter Care Teams Jukebox Coin Collector Relationship Specialty Start Date End Date Andrew Lee MD [address] [place] [address] [address] [place] [address] PCP - General 04/06/21 04/07/25 Rad Galvan MD [address] [place] [address] PCP - General 04/08/25 Uli Salcedo PA [address] [place] [address] Referring Physician 02/03/25 documented as of this encounter
--- OUTSIDE RECORDS SUMMARY | 2025-08-17 01:25 | XMS_ITS | Encounter Summary ---
Author Organization [facility] Address [address] [place] [address] Care Team Providers Care Support Services Specialist Name Role Phone Rad Galvan MD Primary Care Provider + Reason for Visit * Reason Onset Date Comments PAPERWORK REQUEST 06/27/2025 Encounter Details Date Type Department Care Team (Late st Contact Info) Description 06/27/2025 Telephone [facility] FAMILY MEDICINE [address] [place] [address] Rad Galvan MD [address] [place] [address] PAPERWORK REQUEST Social History Tobacco [...] it's ok to fax notes. Faxed via [email or web address]. * Telephone Encounter - Yarely Painter RegSched Rep - 06/27/2025 11:41 AM EDT Caller: [place] - [employer] Relationship: Best call back number: [phone] EXTENTION 2 What form or medical record are you requesting: CLINICAL NOTES Who is requesting this form or medical record from you: [employer] How would you like to receive the form or medical records (pick-up, mail, fax): FAX If fax, what is the fax number: [phone] Timeframe paperwork needed: MAREK Additional notes: PATIENTS [...] Description 08/17/2025 2:00 PM EDT Office Visit [facility] MEDICINE [address] [place] [address] Desi Beckford, SEWING MACHINE OPERATOR [address] [place] [address] 10/31/2025 11:00 AM EST Office Visit [facility] [address] [place] [address] Rad Galvan MD [address] [place] [address] documented as of this encounter Visit Diagnoses Not on filedocumented in this encounter Additional Health Concerns Assessment Noted Time PHQ-2 Depression Total Score: 1 02/17/20 24 10:24 AM EDT documented as of this encounter Care Teams Support Services Specialist Relationship Specialty Start Date End Date Rad Galvan MD [address] [place] [address] PCP - General Family Medicine 04/15/22 documented as of this encounter
--- NOTE | 2025-08-17 01:27 | ECG_ITS ---
APPROVED REPORT Exam: Resting ECG HR:70 bpm ECG Measurements Heart Rate 70 AXES QRSd 177 QRS 34 QT 422 T 42 QTc 443 Conclusion ELECTRONIC VENTRICULAR PACEMAKER ABNORMAL RHYTHM ECG No STEMI Electronically signed by : DAYANARA CAZARES, 08/17/2025 07:00:43
--- NOTE | 2025-08-17 01:41 | [facility].EDCP ---
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 Fingerstick blood glucose 79. She is drinking juice. Full respiratory panel negative for all analytes. On reassessment patient continues to be asymptomatic and is feeling much better. She tolerated her metolazone well. Urinalysis negative for findings of infection. Repeat troponin undetectably low less than 0.01. Recheck blood glucose 83, she is drinking another orange juice. With the thoughts from radiology that the new abnormality in her lung is likely a new segment of pneumonia, I reached out to on-call pharmacist Rachelle with [facility] and we discussed the patient's recent treatment on Levaquin though she had negative bronchoalveolar lavage cultures, and my concern about the patient's kidney dysfunction. Ultimately after long discussion with her we decided on cefdinir treatment and she recommended 300 mg once daily for a week given her kidney dysfunction. I appreciate her recommendations. Cefdinir administered in the ER. 6 more days of cefdinir have been prescribed for the patient to complete a full week of therapy. Patient would like to be discharged at this time and is asymptomatic from the things that brought her to the ER so I believe this is reasonable. Cefdinir has been prescribed, I instructed the patient to refill and continue taking her metolazone. She has follow-up with her primary care doctor today and I instructed her to make another appointment for a few days from now to keep a close eye on her kidney function as well as to make sure her PCP schedules her for 3-month reevaluation of her lungs with chest CT. We also discussed additional interventions to help with her swelling such as leg elevation and compression stockings. I spent extensive time counseling and educating the patient at bedside on her new medications, continued medications, follow-up, and strict return precautions for the ER. She indicated understanding and the patient was discharged in stable condition.
[2025-08-17] MEDS: ACETAMINOPHEN 500MG TAB 500 MG PO (01:52)
[2025-08-17] MEDS: ASPIRIN 81MG CHEWABLE TABLET 324 MG PO (01:52)
[2025-08-17 02:16] LABS: Adenovirus,PCR Not Detected (NotDetected); Chlamydophila Pneumoniae, PCR Not Detected (NotDetected); Coronavirus 19, PCR Not Detected (NotDetected); Coronovirus HKU1,PCR Not Detected (NotDetected); Influenza A, PCR Not Detected (NotDetected); Influenza AH1, 2009 Not Detected (NotDetected); Influenza AH1, PCR Not Detected (NotDetected); Influenza AH3,PCR Not Detected (NotDetected); Influenza B, PCR Not Detected (NotDetected); Mycoplasma Pneumoniae, PCR Not Detected (NotDetected); Parainfluenza 1, PCR Not Detected (NotDetected); Parainfluenza 2, PCR Not Detected (NotDetected); Parainfluenza 3, PCR Not Detected (NotDetected); Parainfluenza 4, PCR Not Detected (NotDetected)
--- NOTE | 2025-08-17 02:19 | PC.NURSE ---
MD gave verbal order to hold metolazone for now.
[2025-08-17 02:21] LABS: Albumin Level 4.1 g/dl (3.5-5.0); Chloride 97 mmol/L (98-107)
[2025-08-17 02:22] LABS: Hematocrit 30.3 % (37.0-47.0); Hemoglobin 10.0 g/dL (12.2-16.2); Immature Granulocytes % 0.9 %; Mean Corpuscular HGB Conc 33.0 g/dL (31.8-35.4); Mean Corpuscular Hemoglobin 34.8 pg (27.0-31.2); Mean Corpuscular Volume 105.6 fl (81-99); Nucleated Red Blood Cells % 0 %; Platelet Count 133 K/mm3 (142-424); Potassium 4.2 mmoL/L (3.5-5.1); Red Blood Count 2.87 M/mm3 (4.20-5.40); Red Cell Distribution Width-SD 58.4 fL; Sodium 137 mmol/L (136-145); White Blood Count 6.7 K/mm3 (4.8-10.8)
[2025-08-17 02:24] LABS: Alanine Aminotransferase 31 U/L (12-78); Anion Gap 14.2 mEq/L (5-15); Aspartate Amino Transferase 50 U/L (14-36); Blood Urea Nitrogen 58 mg/dl (7-17); Carbon Dioxide 30 mmol/L (22.0-30.0); Creatinine Clearance Estimated 41 mL/min (50-200); Creatinine,Serum 1.90 mg/dl (0.52-1.04); Estimated Glomerular Filt Rate 26 ml/min (>60); GFR (African American) 32 ML/MIN (>60)
[2025-08-17 02:25] LABS: Albumin/Globulin Ratio 1.2 (1.1-1.8); Alkaline Phosphatase 230 U/L (38-126); Bilirubin,Total 0.8 mg/dl (0.2-1.3); Calcium 9.5 mg/dl (8.4-10.2); Globulin 3.4 g/dL (1.3-3.2); Glucose 129 mg/dl (74-100); Total Protein,Serum 7.5 g/dl (6.3-8.2)
[2025-08-17 02:29] LABS: INR 1.55 (0.9-1.1); Prothrombin Time 16.7 seconds (10.1-12.5)
[2025-08-17 02:34] LABS: NT Pro Brain Natriuretic Pep. 2560 pg/mL (0-125)
[2025-08-17 03:02] LABS: Troponin I < 0.01 ng/ml (0.00-0.034)
[2025-08-17 03:09] LABS: D-Dimer 0.79 ug/mL (0.0-0.5)
--- NOTE | 2025-08-17 03:13 | CT_ITS ---
PROCEDURE INFORMATION: Exam: CT Abdomen And Pelvis Without Contrast Exam date and time: 08/17/2025 3:30 AM Age: 70 years old Clinical indication: Abdominal tenderness and nausea; Additional info: Nausea, reecnt hospitalization, diffuse abd ttp TECHNIQUE: Imaging protocol: Computed tomography of the abdomen and pelvis without contrast. Radiation optimization: All CT scans at this facility use at least one of these dose optimization techniques: automated exposure control; mA and/or kV adjustment per patient size (includes targeted exams where dose is matched to clinical indication); or iterative reconstruction. COMPARISON: CT ABDOMEN PELVIS W CON 08/07/2025 6:15 PM FINDINGS: Liver: The liver is mildly nodular consistent with underlying cirrhosis. Gallbladder and biliary ducts: Cholecystectomy. Pancreas: Normal. No ductal dilation. Spleen: Normal. No splenomegaly. Adrenal glands: Normal. No mass. Kidneys and ureters: Normal. No hydronephrosis. Stomach and bowel: No ileus or obstruction. Appendix: No evidence of appendicitis. Intraperitoneal space: A small amount of ascites is present increased slightly from prior study 08/07/2025. Vasculature: Unremarkable. No abdominal aortic aneurysm. Lymph nodes: Unremarkable. No enlarged lymph nodes. Urinary bladder: Unremarkable as visualized. Reproductive: Unremarkable as visualized. Bones/joints: Unremarkable. No acute fracture. Soft tissues: Subcutaneous edema is noted consistent with probable anasarca. IMPRESSION: 1. No acute process identified. 2. Nodular liver suggestive of cirrhosis with mild ascites, increased somewhat since prior study 08/07/2025. 3. Diffuse subcutaneous edema consistent with anasarca.
--- NOTE | 2025-08-17 03:13 | CT_ITS ---
PROCEDURE INFORMATION: Exam: CT Chest Without Contrast; Diagnostic Exam date and time: 08/17/2025 3:30 AM Age: 70 years old Clinical indication: Pain; Right-sided; Additional info: R side cp after recent pna and lung biopsy TECHNIQUE: Imaging protocol: Diagnostic computed tomography of the chest without contrast. Radiation optimization: All CT scans at this facility use at least one of these dose optimization techniques: automated exposure control; mA and/or kV adjustment per patient size (includes targeted exams where dose is matched to clinical indication); or iterative reconstruction. COMPARISON: CT CHEST WO CON 08/07/2025 9:50 PM FINDINGS: Lungs: There has been improvement in the previously noted rounded airspace opacity within the superior segment of the right lower lobe although some residual airspace changes remain. Bibasilar atelectasis. Pleural spaces: No pneumothorax is noted. Heart: Cardiomegaly with right ventricular and atrial enlargement. Coronary arteries: Moderate to extensive coronary calcium. Lymph nodes: Calcified mediastinal and hilar lymph nodes. Vasculature: Unremarkable. No aortic aneurysm. Bones/joints: Unremarkable. No acute fracture. Soft tissues: Unremarkable. IMPRESSION: 1. Improving airspace opacity in the superior segment of the right lower lobe. 2. No evidence of pneumothorax or other acute process noted. 3. Cardiomegaly with moderate to extensive coronary atherosclerosis and right ventricular and atrial enlargement.
[2025-08-17 03:20] LABS: Digoxin 1.50 ng/ml (0.2-2.00)
[2025-08-17 04:51] LABS: Microscopic, Urine URINE MICROSCOPIC (MICROSCOPIC)
[2025-08-17 04:53] LABS: Bilirubin,Urine Negative (Negative); Color,Urine YELLOW (Yellow); Glucose,Urine (UA) 3+ (Negative); Ketones,Urine Negative (Negative); Leukocyte Esterase,Urine Negative (Negative); PH,Urine 6.0 (5.0-8.5); Protein,Urine TRACE (Negative); Specific Gravity, Urine 1.010 (1.005-1.030); Urobilinogen,Urine 0.2 EU/dl (0.2)
[2025-08-17 05:05] LABS: Troponin I < 0.01 ng/ml (0.00-0.034)
[2025-08-17 05:17] LABS: RBC,Urine Occasional #/hpf (0-3); WBC,Urine Occasional #/hpf (0-3)
[2025-08-17] MEDS: CEFDINIR 300MG CAPSULE 300 MG PO (05:34)
== END 2025-08-17 05:44 | disposition home or self-care (01) ==
PROVIDERS: Emergency Provider Emergency Medicine; PCP Family Medicine
DX: R07.89 Other chest pain (principal); R06.02 Shortness of breath; J18.9 Pneumonia, unspecified organism; R10.817 Generalized abdominal tenderness; R91.8 Other nonspecific abnormal finding of lung field; N28.9 Disorder of kidney and ureter, unspecified; Z86.79 Personal history of other diseases of the circulatory system; Z79.01 Long term (current) use of anticoagulants
CPT/HCPCS: 0223U; 71250; 74176; 80053; 80162; 81001; 83880; 84484; 85025; 85378; 85610; 93005; 99285

== ENCOUNTER 2025-08-24 09:33 | Outpatient (CLI) | payer MEDICARE, SELFPAY ==
--- OUTSIDE RECORDS SUMMARY | 2025-07-07 11:15 | XMS_ITS | Encounter Summary ---
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 Machine Set Up Mechanic Name Role Phone Rad Galvan MD Primary Care Provider + Reason for Referral * Medical Care (Routine) - Authorized Specialty Diagnoses / Procedures Referred By Contac t Referred To Contact Diagnoses Viral cardiomyopathy Nocturnal headaches Procedures Overnight Sleep Oximetry Study Rad Galvan MD [address] [facility] [place] [address] Phone: tel: fax: [facility] [address] [place] [address] Phone: tel: fax: Referral ID Status Reason Start Date Expiration Date V isits Requested Visits Authorized [id number] Authorized 07/07/2025 10/06/2026 1 1 Reason for Visit * Reason Comments FU from [facility] discharge / heart failure Pt has fu w/ Cardio at tomorrow Encounter Details Date Type Department Care Team (Late st Contact Info) Description 07/07/2025 11:15 AM EDT Office Visit [facility] [address] [facility] [place] [address] Rad Galvan MD [address] [facility] [place] [address] Left ventricular systolic dysfunction, chronic (Primary Dx); Viral cardiomyopathy; Nocturnal headaches; Obstructive sleep apnea Social History Tobacco Use Types Packs/Day Years [...] PM EDT documented as of this encounter Last Filed Vital Signs Vital Sign Reading Time Taken Comments Blood Pressure 115/65 07/07/2025 11:01 AM EDT Pulse 70 07/07/2025 11:01 AM EDT Temperature 36.7 C (98 F) 07/07/2025 11:01 AM EDT Respiratory Rate 20 07/07/2025 11:01 AM EDT Oxygen Saturation 99% 07/07/2025 11:01 AM EDT Inhaled Oxygen Concentration - - Weight 92.6 kg (204 lb 3.2 oz) 07/07/2025 11:01 AM EDT Height 154.9 cm (5' 1 ) 07/07/2025 11:01 AM EDT Body Mass Index 38.58 07/07/2025 11:01 AM EDT documented in this encounter Progress Notes * Rad Galvan MD - 07/07/2025 11:15 AM EDT Images from the original note were not included. Transitional Care Follow Up Visit Subjective Sara Edwards is a 70 y.o. female who presents for a transitional care management visit. I reviewed and discussed the details of that call along with the discharge summary, hospital problems, inpatient lab results, inpatient diagnostic studies, and consultation reports with Sara. Current outpatient and discharge medications have been reconciled for the patient. Reviewed by: Rad Galvan MD No data to display Risk for Readmission (LACE) No data recorded History of Present Illness Course During Hospital Stay: Patient was hospitalized from June 27 to June 29 at [facility] for acute systolic congestive heart failure. Patient has known nonischemic cardiomyopathywith ejection fraction of 10 to 15%. She is following up with advanced heart failure clinic tomorrow. While cardiac transplant has been mentioned patient has been told that she is likely not a candidate but LVAD is under consideration. During hospitalization patient was diuresed and lost 6-1/2 to 7 pounds. Since discharge from the hospital she has been less responsive to her diuretic regimen. Weight today in office has increased 3 pounds compared to her last office visit in March. Patient reports onset of headaches over the last couple of weeks. She has history of JAGUAR for which she did not benefit from CPAP. Headaches can awaken her from sleep. A nurse she has contacted through her health insurance is arranging for a home blood pressure monitor to be sent to the patient The following portions of the patient's history were reviewed and updated as appropriate: allergies, current medications, past family history, past medical history, past social history, past surgicalhistory, and problem list. Review of Systems Objective BP 115/65 Pulse 70 Temp 98 ??F (36.7 ??C) Resp 20 Ht 154.9 cm (61 ) Wt 92.6 kg (204 lb 3.2 oz) SpO2 99% BMI 38.58 kg/m?? Physical Exam Vitals reviewed. Constitutional: Appearance: Normal appearance. Neurological: Mental Status: She is alert. Assessment & Plan Diagnoses and all orders for this visit: 1. Left ventricular systolic dysfunction, chronic (Primary) 2. Viral cardiomyopathy - Overnight Sleep Oximetry Study; Future 3. Nocturnal headaches - Overnight Sleep Oximetry Study; Future 4. Obstructive sleep apnea Plan 1. Follow-up with advanced heart failure clinic tomorrow 2. Keep Medicare wellness visit with me scheduled for July 3. Arrange overnight oximetry to rule out hypoxia as a cause of nocturnal headaches and potential contributor to exacerbations of acute LV systolic dysfunction In total 40 minutes was spent caring for the patient today. Time involved includes review of medical records, review of ibm websphere commerce consultant notes, time spent preparing for the visit, counseling the patient and her friend, documenting in the medical record documented in this encounter Plan of Treatment Upcoming Encounters Date Type Department Care Team (Late st Contact Info) Description 10/31/2025 11:00 AM EST Office Visit [facility] [address] [place] [id number] Rad Galvan MD [address] [place] [address] documented as of this encounter Results * Overnight Sleep Oximetry Study (07/11/2025) us Rad Galvan MD RESPIRATORY CARE ORDERAB LES Final Result documented in this encounter Visit Diagnoses Diagnosis Left ventricular systolic dysfunction, chronic- Primary Viral cardiomyopathy Other primary cardiomyopathies Nocturnal headaches Headache Obstructive sleep apnea Obstructive sleep apnea (adult) (pediatric) documented in this encounter Additional Health Concerns Assessment Noted Time PHQ-2 Depression Total Score: 1 02/17/20 24 10:24 AM EDT documented as of this encounter Care Teams [employer] Machine Set Up Mechanic Relationship Specialty Start Date End Date Rad Galvan MD [address] [place] [address] PCP - General Family Medicine 04/15/22 documented as of this encounter
--- OUTSIDE RECORDS SUMMARY | 2025-07-08 13:45 | XMS_ITS | Encounter Summary ---
Author Organization [facility] Address [address] [place] [address] Care Team Providers Care News Cameraman Name Role Phone Uli Salcedo Unavailable [phone] Rad Galvan MD Primary Care Provider [phone] Reason for Referral * Consultation (Routine) - Authorized Specialty Diagnoses / Procedures Referred By Contac t Referred To Contact Diagnoses Chronic combined systolic and diastolic congestive heart failure Chika Orellana APRN [address] [place] [address] Phone: tel: fax: Referral ID Status Reason Start Date Expiration Date V isits Requested Visits Authorized [id number] Authorized 07/08/2025 01/07/2027 1 1 Reason for Visit * Reason Comments Congestive Heart Failure Post hospital d ischarge visit Encounter Details Date Type Department Care Team (Late st Contact Info) Description 07/08/2025 1:45 PM EDT Office Visit [facility] [place] [facility] [address] [facility] [place] [address] Elvin Schuler MD [address] [place] [address] Chronic combined systolic and diastolic [...] from the original note were not included. [facility] Sara Edwards is [...] of her function later. 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 The patient is diabetic on [...] store , will ride the cart around [employer], but walks around the smaller stores. She can prepare her own meals and do light housekeeping. No dizzy spells or syncope, no ICD discharges and no calls from the device clinic alerting her to any arrhythmias. She reports she gets severe headaches that can wake her up. She had one on admission to [facility] and while she was an inpatient. She [...] to follow up closely with cardiology at [place]. Will get labs today to assess since [...] conjunction with Dr Schuler. Chika Orellana APRN [facility] [facility] [1] Past Medical [...] Upcoming Encounters Date Type Department Care Team ([facility] st Contact Info) Description 09/16/2025 2:30 PM EDT Appointment Cardiac Imaging [address] [place] [address] 09/16/2025 4:00 PM EDT Office Visit [facility] [place] [address] [facility] [place] [address] Elvin Schuler MD [address] [place] [address] 10/17/2025 11:40 AM EST Office Visit [facility] Nephrology, Bone & Mineral Metabolism [address], [address] [place] [address] Azael Mooney MD [address] [place] [address] Scheduled Referrals Name Type Priority Associated Diagnoses [...] - 899 pg/mL 07/08/2025 4:28 PM EDT [facility] Blood Venous blood specimen / Unknown Venipuncture / Unknown 07/08/2025 3:19 PM EDT 07/08/2025 3:54 PM EDT Chika Orellana APRN LAB BLOOD ORDERABLES Final Result [facility] [address] [place] [address] * (ABNORMAL) Comprehensive metabolic panel (07/08/2025 3:19 PM EDT) Glucose, Plasma 84 74 - 99 mg/dL 07/08/2025 4:28 PM EDT [facility] BUN, Plasma 52(H) 8 - 23 mg/dL 07/08/2025 4:28 PM EDT [facility] Creatinine, Plasma 1.80(H) 0.60 - 1.10 mg/dL 07/08/2025 4:28 PM EDT [facility] BUN/Creatinine Ratio 29 07/08/2025 4:28 PM EDT [facility] Sodium, Plasma 130(L) 136 - 145 mmol/L 07/08/2025 4:28 PM EDT [facility] Potassium, Plasma 3.7 3.6 - 4.9 mmol/L 07/08/2025 4:28 PM EDT [facility] Chloride, Plasma 87(L) 97 - 107 mmol/L 07/08/2025 4:28 PM EDT [facility] CO2, Plasma 28 22 - 29 mmol/L 07/08/2025 4:28 PM EDT [facility] Anion Gap 15 6 - 16 mmol/L 07/08/2025 4:28 PM EDT [facility] Total Calcium, Plasma 9.4 8.9 - 10.2 mg/dL 07/08/2025 4:28 PM EDT [facility] Total Protein 8.0(H) 6.3 - 7.9 g/dL 07/08/2025 4:28 PM EDT [facility] Albumin, Plasma 4.4 3.5 - 5.2 g/dL 07/08/2025 4:28 PM EDT [facility] AST, Plasma 40(H) 10 - 35 U/L 07/08/2025 4:28 PM EDT [facility] Comment:Hemolyzed, result ma y be falsely increased. ALT, Plasma 19 10 - 35 U/L 07/08/2025 4:28 PM EDT [facility] Alkaline Phosphatase, Plasma 202(H) 46 - 142 U/L 07/08/2025 4:28 PM EDT [facility] Total Bilirubin, Plasma 0.8 0.2 - 1.1 mg/dL 07/08/2025 4:28 PM EDT [facility] eGFRcr 30.4 mL/min/1.7 3m*2 07/08/2025 4:28 PM EDT [facility] Comment:Reported eGFRcr in m L/min/1.73m2 is based the CKD-EPI 2020 equation that does not use a race coefficient. Blood Venous blood specimen / Unknown Venipuncture / Unknown 07/08/2025 3:19 PM EDT 07/08/2025 3:54 PM EDT Chika Orellana APRN LAB BLOOD ORDERABLES Final Result [facility] [address] [place] [address] documented in this encounter Visit Diagnoses Diagnosis [...] documented as of this encounter Care Teams News Cameraman Relationship Specialty Start Date End Date Rad Galvan MD [address] [place] [address] PCP - General 04/08/25 Uli Salcedo PA [address] [place] [address] Referring Physician 02/03/25 documented as of this encounter
--- OUTSIDE RECORDS SUMMARY | 2025-07-13 09:00 | XMS_ITS | Encounter Summary ---
Author Organization [facility] Address [address] [phone] Care Team Providers Care Candy Decorator Name Role Phone Rad Galvan MD Primary Care Provider + Reason for Visit * Reason Comments Establish Care Patient complains of chest pressure * Consultation (Routine) - Closed Specialty Diagnoses / Procedures Referred By Regan greene Referred To Contact Cardiology Diagnoses TO EST CARE FOR HER OPTIMIZER Elvin Schuler MD [address] [place] [address] Phone: tel: [place]: [place] [address] [place] [address] [place] [address] Phone: tel: fax: Referral ID Status Reason Start Date Expiration Date Visits Re quested Visits Authorized [id number] Closed 03/22/2025 06/21/2026 1 1 Encounter Details Date Type Department Care Team (Late st Contact Info) Description 07/13/2025 9:00 AM EDT Office Visit [facility] CARD[facility] [address] [place] [address] [address] [phone] Sidney Barraza MD [address] [facility] [place] [address] Chronic HFrEF (heart failure with reduced ejection fraction) (Primary Dx); Longstanding persistent atrial fibrillation Social History Tobacco Use Types Packs/Day Years [...] Sign Reading Time Taken Comments Blood Pressure 114/60 07/13/2025 9:28 AM EDT Pulse 70 07/13/2025 9:28 AM EDT Temperature - - Respiratory Rate - - Oxygen Saturation 93% 07/13/2025 9:28 AM EDT Inhaled Oxygen Concentration - - Weight 92.8 kg (204 lb 9.6 oz) 07/13/2025 9:28 A M EDT Height 154.9 cm (5' 1 ) 07/13/2025 9:28 AM EDT Body Mass Index 38.66 07/13/2025 9:28 AM EDT documented in this encounter Progress Notes * Sidney Barraza MD - 07/13/2025 9:00 AM EDTAssociated Order(s): ECG 12 Lead Post-Procedure Diagnose(s): Chronic HFrEF (heart failure with reduced ejection fraction) Electrophysiology Clinic Consult Sara Edwards 1955 @HOMEPHONE@ @WORKPHONE@ 07/13/25 DATE OF ADMISSION: (Not on file) [facility] CARD[facility]OLOG[facility] Rad Galvan MD [address] [facility] [place] [address] Referring Provider: Elvin Schuler MD Chief Complaint Patient presents with [facility] Care Patient complains of chest pressure Problem List: Chronic systolic heart failure/HFrEF Initially diagnosed 2014 Biventricular ICD implant 05/09/2020- Dr. Armstrong Impulse dynamics September 2022 [facility] 07/05/2024: Mild disease in multiple vessels (20 to 40% severity) Echocardiogram 01/11/2025: EF 30%, moderate MR Cardio mems implant 04/01/2025 followed by [facility] 04/01/2025: mildly elevated reight and normal left sided filling pressures, mild postcapillary pulmonary HTN, preserved cardiac output. Right heart cath planned 07/27/2025 Permanent Atrial Fibrillation CHADSVasc = 5 on Xarelto Diabetes insulin-dependent Chronic kidney disease Hypertension Hyperlipidemia GERD Hyperuricemia Hiatal hernia Restless leg syndrome Seizures-data deficit Surgical history Appendectomy Cholecystectomy Tonsillectomy History of Present Illness: Sara Edwards is a 70-year-old female with above-stated past medical history presents today in consultation, referred by Dr. Schuler to establish care for her biventricular ICD and CCM device. She has a long history of heart failure which was diagnosed in 2014. She had a biventricular ICDimplant by Dr. Armstrong in 2019 and subsequently impulse dynamics CCM device in September 2022. As far as GDMT, she is on Aldactone, Metoprolol, Valsartan, Farxiga, Bumex. She was recently in the hospital in [place] for fluid overlaod with LE edema. She was diuresed and had some improvement, but they have been swelling again. She is overall tired and gets SOB easily. She states that recently herOptimizer battery went extremely low and it was not charging at home with an error . Today, her battery is at 63%. She has been charging every couple of weeks. She is in atrial fibrillation all of the time. She is on Xarelto without bleeding issues. She denies CVA. Tobacco: none ETOH: none Caffeine: none Allergies Allergen Reactions Reglan [Metoclopramide] Rash Cannot display prior to admission medications because the patient has not been admitted in this contact. Current Outpatient Medications: allopurinol (ZYLOPRIM) 100 MG tablet, TAKE ONE TABLET BY MOUTH EVERY DAY, Disp: 60 tablet, Rfl: 5 atorvastatin (LIPITOR) 10 MG tablet, TAKE ONE TABLET BY MOUTH EVERY DAY, Disp: 30 tablet, Rfl: 11 bumetanide (BUMEX) 1 MG tablet, TAKE TWO TABLETS BY MOUTH EVERY DAY (Patient taking differently: Take 2 tablets by mouth 2 (Two) Times a Day.), Disp: 60 tablet, Rfl: 2 Comfort EZ Pen [place] 32G X 6 MM [facility], USE DIRECTED FOR insulin injections, Disp: 100 each, Rfl: 5 Continuous Glucose Dairy Farm Worker (FreeStyle Simón 3 [place]) device, Use 1 each Daily., Disp: 1 each, Rfl: 0 Continuous Glucose Sensor (FreeStyle Simón 3 Plus Sensor), Use Every 15 (Fifteen) Days., Disp: 2 each, Rfl: 11 dapagliflozin Propanediol (Farxiga) 10 MG tablet, Take by mouth. From cardio, Disp: , Rfl: digoxin (LANOXIN) 125 MCG tablet, TAKE ONE TABLET BY MOUTH EVERY DAY, Disp: 30 tablet, Rfl: 5 gabapentin (NEURONTIN) 600 MG tablet, Take 1 tablet by mouth 2 (Two) Times a Day., Disp: 60 tablet,Rfl: 2 insulin aspart (NovoLOG FlexPen) 100 UNIT/ML solution pen-injector sc pen, Inject 8 Units under theskin into the appropriate area as directed As Needed (glucose >400)., Disp: 3 mL, Rfl: 0 insulin NPH-insulin regular (humuLIN 70/30,novoLIN 70/30) (70-30) 100 UNIT/ML injection, 40 units qAM and 40 units q PM, Disp: , Rfl: isosorbide mononitrate (IMDUR) 30 MG 24 hr tablet, Take 1 tablet by mouth Daily., Disp: , Rfl: loratadine (CLARITIN) 10 MG tablet, TAKE ONE TABLET BY MOUTH EVERY DAY, Disp: 30 tablet, Rfl: 11 metoprolol succinate XL (TOPROL-XL) 25 MG 24 hr tablet, Take 0.5 tablets by mouth Daily., Disp: , Rfl: multivitamin with minerals tablet tablet, Take 1 tablet by mouth Daily., Disp: , Rfl: nitroglycerin (NITROSTAT) 0.4 MG SL tablet, Place 1 tablet under the tongue Every 5 (Five) Minutes As Needed for Chest Pain. Take no more than 3 doses in 15 minutes., Disp: 30 tablet, Rfl: 0 [place]-3 Fatty Acids (fish oil) 1000 MG capsule capsule, Take 2 capsules by mouth Daily With Breakfast., Disp: , Rfl: pantoprazole (PROTONIX) 40 MG EC tablet, TAKE ONE TABLET BY MOUTH TWICE DAILY, Disp: 60 tablet, Rfl: 11 PHENobarbital 32.4 MG tablet, TAKE THREE TABLETS BY MOUTH EVERY DAY AT BEDTIME, Disp: 90 tablet, Rfl: 5 polyethylene glycol (MiraLax) 17 GM/SCOOP powder, Take 17 g by mouth Daily., Disp: 850 g, Rfl: 2 potassium chloride (KLOR-CON M20) 20 MEQ CR tablet, TAKE ONE TABLET BY MOUTH TWICE DAILY, Disp: 60 tablet, Rfl: 3 potassium chloride ER (K-TAB) 20 MEQ tablet controlled-release ER tablet, TAKE ONE TABLET BY MOUTH TWICE DAILY, Disp: 120 tablet, Rfl: 5 rivaroxaban (XARELTO) 20 MG tablet, Take 1 tablet by mouth Daily., Disp: , Rfl: rOPINIRole (REQUIP) 2 MG tablet, TAKE ONE TABLET BY MOUTH EVERY NIGHT, Disp: 30 tablet, Rfl: 11 Semaglutide,0.25 or 0.5MG/DOS, (OZEMPIC) 2 MG/3ML solution pen-injector, Inject 0.25 mg under the skin into the appropriate area as directed 1 (One) Time Per Week., Disp: , Rfl: spironolactone (ALDACTONE) 25 MG tablet, TAKE ONE TABLET BY MOUTH EVERY DAY, Disp: 90 tablet, Rfl: 1 traMADol (ULTRAM) 50 MG tablet, Take 1 tablet by mouth Every 6 (Six) Hours As Needed for Moderate Pain., Disp: 120 tablet, Rfl: 3 valsartan (Diovan) 40 MG tablet, Take 1 tablet by mouth 2 (Two) Times a Day., Disp: , Rfl: Social History Socioeconomic History Marital status: Tobacco Use Smoking status: Former Current packs/day: 0.00 Average packs/day: 0.1 packs/day for 2.0 years (0.2 ttl pk-yrs) Types: Cigarettes Start date: 11/24/1980 Quit date: 1982 Years since quittin.6 Smokeless tobacco: Never Tobacco comments: In my Twenty Vaping Use Vaping status: Never Used Family History Problem Relation Age of Onset Hyperlipidemia Mother Alcohol abuse Father Hyperlipidemia Father Diabetes Sister Hyperlipidemia Sister Diabetes Brother Hyperlipidemia Daughter REVIEW OF SYSTEMS: CONST: No weight loss, fever, chills, + weakness + fatigue. HEENT: No visual loss, blurred vision, double vision, yellow sclerae. No hearing loss, congestion, sore throat. SKIN: No rashes, urticaria, ulcers, sores. RESP: + shortness of breath,- hemoptysis, cough, sputum. GI: No anorexia, nausea, vomiting, diarrhea. No abdominal pain, melena. : No burning on urination, hematuria or increased frequency. ENDO: No diaphoresis, cold or heat intolerance. No polyuria or polydipsia. NEURO: No headache, dizziness, syncope, paralysis, ataxia, or parasthesias. No change in bowel or bladder control. No history of CVA/TIA MUSC: No muscle, back pain, joint pain or stiffness. HEME: No anemia, bleeding, bruising. No history of DVT/PE. PSYCH: No history of depression, anxiety Vitals: 07/13/25 0928 BP: 114/60 Pulse: 70 SpO2: 93% Weight: 92.8 kg (204 lb 9.6 oz) Height: 154.9 cm (61 ) Physical Exam: GEN: Well nourished, well-developed, no acute distress HEENT: Normocephalic, atraumatic, PERRLA, moist mucous membranes NECK: Supple, NO JVD, no thyromegaly, no lymphadenopathy CARD: S1S2, RRR, no murmur, gallop, rub LUNGS: Clear to auscultation, normal respiratory effort ABDOMEN: Soft, nontender, normal bowel sounds EXTREMITIES: No gross deformities, no clubbing, cyanosis, or edema SKIN: Warm, dry NEURO: No focal deficits, alert and oriented x 3 PSYCHIATRIC: Normal affect and mood I personally viewed and interpreted the patient's EKG/Telemetry/lab data Lab Results Component Value Date GLUCOSE 104 (H) 08/10/2024 CALCIUM 9.6 08/10/2024 NA 142 08/10/2024 K 4.9 08/10/2024 CO2 27 08/10/2024 CL 100 08/10/2024 BUN 27 08/10/2024 CREATININE 1.35 (H) 08/10/2024 BCR 20 08/10/2024 No results found for: WBC , HGB , HCT , MCV , PLT No results found for: INR , PROTIME No results found for: TSH , K4HYZYT , N0TAPIK , THYROIDAB BiV ICD manual interrogation: RA paced less than 1%, BiV paced 100%, normal thresholds and impedances, 100% atrial fibrillation since June 2025 CCM Device Check: normal function. CCM Total % 91%. Battery 63% ECG 12 Lead Date/Time: 07/13/2025 10:07 AM Performed by: Sidney Barraza MD Authorized by: Sidney Barraza MD Comparison: compared with previous ECG from 06/27/2025 Similar to previous ECG Rhythm: atrial fibrillation and paced BPM: 77 ICD-10-CM ICD-9-CM 1. Chronic HFrEF (heart failure with reduced ejection fraction) I50.22 428.22 2. Longstanding persistent atrial fibrillation I48.11 427.31 Assessment and Plan: Chronic Systolic CHF/HRrEF: - Class III NYHA CHF, compensated today - GDMT: Valsartan, Metoprolol, Aldactone, Farxiga, Bumex, follows with [facility] Advanced Heart Failure - she is doing better with medication adjustment but still has CHF symptoms - planned for [facility] 07/27/2025 and work up for transplant vs LVAD - She has both a BiV ICD and CCM device both with normal function on interrogation today. She is biV pacing 99%. She has 91% CCM therapy - Will get CXR to assess location of CS lead 2. Longstanding Persistent Atrial Fibrillation: - rate controlled - CHADVASC = 5 on Xarelto - duration of AFIB unknown, at this time she appears to be asymptomatic, but we do not know the affect of her atrial fibrillation on her LVEF. We will attempt to get records from Dr. Armstrong's office to determine duration of her atrial fibrillation. Scribed for Sidney Barraza MD by Stormy Wade PA-C. 07/13/2025 10:07 EDT I, Sidney Barraza MD, personally performed the services described in this documentation as scribed by the above named individual in my presence, and it is both accurate and complete. 07/13/2025 14:21 EDT documented in this encounter Plan of Treatment Upcoming Encounters Date Type Department Care Team (Late st Contact Info) Description 10/31/2025 11:00 AM EST Office Visit [facility] FAM[facility] MEDICINE [address] [phone] Rad Galvan MD [address] [address] Scheduled Orders Name Type Priority Associated Diagnoses Orde r Schedule Cardiology Scan Cardiac Services Ord ered: 07/13/2025 documented as of this encounter Procedures Procedure Name Priority Date/Time Associated Diagnosis Comments ECG 12-LEAD Routine 07/13/2025 10:07 AM EDT Chronic HFrEF (heart failure with reduced ejection fraction) documented in this encounter Results * ECG 12-LEAD (07/13/2025 10:07 AM EDT) Narrative Sidney Barraza MD - 07/13/2025 10:07 AM EDT Sidney Barraza MD 07/13/2025 2:21 PM ECG 12 Lead Date/Time: 07/13/2025 10:07 AM Performed by: Sidney Barraza MD Authorized by: Sidney Barraza MD Comparison: compared with previous ECG from 06/27/2025 Similar to previous ECG Rhythm: atrial fibrillation and paced BPM: 77 us Sidney Barraza MD ECG ORDERABLES Final Result documented in this encounter Visit Diagnoses Diagnosis Chronic HFrEF (heart failure with reduced ejection fraction)- Primary Longstanding persistent atrial fibrillation documented in this encounter Additional Health Concerns Assessment Noted Time PHQ-2 Depression Total Score: 1 02/17/20 24 10:24 AM EDT documented as of this encounter Care Teams Candy Decorator Relationship Specialty Start Date End Date Rad Galvan MD [address] [place] [address] PCP - General Family Medicine 04/15/22 documented as of this encounter
--- OUTSIDE RECORDS SUMMARY | 2025-07-13 10:53 | XMS_ITS | Encounter Summary ---
Author Organization [facility] Address [address] [id number] Care Team Providers Care Fibreglass Gun Hand Name Role Phone Rad Galvan MD Primary Care Provider + Reason for Visit * Diagnostic Imaging (Routine) - Closed Specialty Diagnoses / Procedures Referred By Contac t Referred To Contact Radiology Diagnoses S/P implantation of automatic cardioverter/defibrillator (AICD) Procedures XR chest pa and lateral Sidney Barraza MD [address] [place] [address] Phone: tel: fax: Referral ID Status Reason Start Date Expiration Date Visits Re quested Visits Authorized [id number] Closed 07/13/2025 10/12/2026 1 1 Encounter Details Date Type Department Care Team (Late st Contact Info) Description 07/13/2025 10:53 AM EDT - 07/13/2025 11:59 PM EDT Hospital Encounter [facility] XRAY [address] [place] [address] Sidney Barraza MD [address] [place] [address] Discharge Disposition: Home or Self Care Social [...] 60 tablet 2 04/20/2025 Comfort EZ Pen [place] 32G X 6 MM misc USE DIRECTED FOR insulin injections 100 each 5 12/03/2024 Continuous Glucose Medication Technician (FreeStyle Simón 3 [place]) deviceIndications: Type 2 diabetes mellitus with hypoglycemia [...] doses in 15 minutes. 30 tablet 11/18/2023 [place]-3 Fatty Acids (fish oil) 1000 MG capsule [...] chloride (KLOR-CON M20) 20 MEQ CR tabletIndications: care home current use of diuretic TAKE ONE TABLET [...] tablet Take 1 tablet by mouth Daily. potassium chloride ER (K-TAB) 20 MEQ tablet [...] Visit [facility] [address] [facility] [place] [address] Rad Galvan MD [address] [facility] [address] documented as of this encounter [...] MD 07/13/2025 4:13 PM EDT Workstation ID: [id number] Narrative 07/13/2025 4:13 PM EDT XR CHEST [...] MD 07/13/2025 4:13 PM EDT Workstation ID: [id number] Sidney Barraza MD IMG DIAGNOSTIC IMAGING ORDER RICH Final Result documented in this encounter Visit Diagnoses Not on filedocumented in this encounter Additional Health Concerns Assessment Noted Time PHQ-2 Depression Total Score: 1 02/17/20 24 10:24 AM EDT documented as of this encounter Care Teams Fibreglass Gun Hand Relationship Specialty Start Date End Date [place] [address] PCP - General Family Medicine 04/15/22 documented as of this encounter
--- OUTSIDE RECORDS SUMMARY | 2025-07-15 10:30 | XMS_ITS | Encounter Summary ---
Author Organization [facility] Address [address] [place] [address] Care Team Providers Care Protozoologist Name Role Phone Uli Salcedo Unavailable [phone] Rad Galvan MD Primary Care Provider [phone] Encounter Details Date Type Department Care Team (Latest Contact Info) Description 07/15/2025 10:30 AM EDT Ancillary Procedure [facility] [place] [facility] [address] [place] [address] Chronic combined systolic and diastolic congestive heart [...] Upcoming Encounters Date Type Department Care Team ([facility] st Contact Info) Description 09/16/2025 2:30 PM EDT Appointment Cardiac Imaging [address] [place] [address] 09/16/2025 4:00 PM EDT Office Visit [facility] [place] [address] [facility] [place] [address] Elvin Schuler MD [address] [place] [address] 10/17/2025 11:40 AM EST Office Visit [facility] Nephrology, Bone & Mineral Metabolism [address] [facility], [address] [place] [address] Azael Mooney MD [address] [place] [phone] documented as of this encounter Visit Diagnoses [...] documented as of this encounter Care Teams Protozoologist Relationship Specialty Start Date End Date Rad Galvan MD [address] [place] [address] PCP - General 04/08/25 Uli Salcedo PA [address] [place] [address] Referring Physician 02/03/25 documented as of this encounter
--- OUTSIDE RECORDS SUMMARY | 2025-07-27 08:02 | XMS_ITS | Encounter Summary ---
Author Organization [facility] Address [address] [place] [address] Care Team Providers Care Truck Hop Name Role Phone Uli Salcedo Unavailable [phone] Rad Galvan MD Primary Care Provider [phone] Reason for Visit * Auth/Cert (Routine) Specialty Diagnoses / Procedures Referred By Contac t Referred To Contact Diagnoses Chronic combined systolic and diastolic congestive heart failure Chronic combined systolic and diastolic congestive heart failure (CMS/HCC) [I50.42] Procedures [place] RIGHT HEART CATH O2 SATURATION & CARDIAC OUTPUT Right heart catheterization Elvin Schuler MD [address] [place] [address] Phone: tel: fax: Cardiac Receiving Operator [address] [place] [address] Phone: tel: Referral ID Status Reason Start Date Expiration Date Visits Re quested Visits Authorized [id number] 1 1 Encounter Details Date Type Department Care Team (Latest Contact Info) Description 07/27/2025 8:02 AM EDT - 07/27/2025 10:39 AM EDT Hospital Encounter Cardiac Receiving Operator [address] [place] [address] Elvin Schuler MD [address] [place] [address] Chronic combined systolic and diastolic congestive heart failure ([facility]/HCC) Discharge Disposition: Home or Self Care [...] cannot stop thebleeding, call 911 or 0 (bias machine operator helper). This is an emergency. Ask for an [...] or holidays, call and ask for the Cigarette Vendor web applications architect. * H&P - Elvin Schuler MD - 07/27/2025 8:29 AM EDT History Of Present Illness Sara Edwards is a 70 y.o. female with known chronic systolic heart failure presenting with increasing edema, fatigue, and dyspnea. She was hospitalized over a month ago at [facility] and received IV diuretics. She has [...] been discussed with the patient and/or their truck sales representative. All questions answered and they agree to proceed. documented in this encounter Plan of Treatment Upcoming Encounters Date Type Department Care Team (Late st Contact Info) Description 09/16/2025 2:30 PM EDT Appointment Cardiac Imaging [address] [place] [address] 09/16/2025 4:00 PM EDT Office Visit [facility] [place] [address] [place] [address] Elvin Schuler MD [address] [place] [address] 10/17/2025 11:40 AM EST Office Visit [facility] Nephrology, Bone & Mineral Metabolism [address], [address] [place] [address] Azael Mooney MD [address] [place] [address] documented as of this encounter [...] then carried out using a 7.5F VIP [place]-Po catheter. Pressures were recorded as the catheter [...] the patient was transferred back to the cath lab tech holding area in good condition. Hemodynamic Data [...] POCT CO-Oximitry, Venous (07/27/2025 8:59 AM EDT) [facility] POCT OXYHEMOGLOBIN, VENOUS 62 40 - 70 % 07/27/2025 8:57 AM EDT [facility] Business Law Professor ID Fister-Mes ch, Jael 07/27/2025 8:57 AM EDT [facility] Device ID [id number] 07/27/2025 8:57 AM EDT [facility] POCT Sample Site PA 07/27/2025 8:57 AM EDT [facility] POCT Total Hemoglobin 10.4(L) 11.2 - 15.7 g/dL 07/27/2025 8:57 AM EDT [facility] Venous blood specimen / Unknown 07/27/2025 8:59 AM EDT 07/27/2025 8:57 AM EDT us Elvin Schuler MD LAB POINT OF CARE T EST DOCKED DEVICE UNSOLICITED RESULTS Final Result [facility] [address] [place] [address] documented in this encounter Visit Diagnoses Diagnosis [...] documented as of this encounter Care Teams Truck Hop Relationship Specialty Start Date End Date Rad Galvan MD [address] [place], [place] [id number] PCP - General 04/08/25 Uli Salcedo PA [address] [place] [address] Referring Physician 02/03/25 documented as of this encounter
--- OUTSIDE RECORDS SUMMARY | 2025-07-27 08:45 | XMS_ITS | Encounter Summary ---
Author Organization [facility] Address [address] 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 (CMS/HCC) [I50.42] Procedures [place] RIGHT HEART CATH O2 SATURATION & CARDIAC OUTPUT Right heart catheterization Elvin Schuler MD [address] [place] [address] Phone: tel: fax: Cardiac Rn Intensive Care Unit [address] [place] [address] Phone: tel: Referral ID Status Reason Start Date Expiration Date Visits Re quested Visits Authorized [id number] 1 1 Encounter Details Date Type Department Care Team (Late st Contact Info) Description 07/27/2025 8:45 AM EDT - 07/27/2025 10:00 AM EDT Surgery Cardiac Rn Intensive Care Unit [address] [place] [address] Elvin Schuler MD [address] [place] [address] Right heart catheterization [70631 (CPT )] Surgery Details Date/Time Status Location OR Service Patient Class Case Class Case Type Trauma Case? 07/27/2025 8:45 AM Posted JESUS MANAGER COMMUNITY RELATIONS MANAGER COMMUNITY RELATIONS 03 [facility] Outpatient Surgery E-Elect jennifre Panel 1 Procedure [facility] [...] cannot stop thebleeding, call 911 or 0 (generator operator). This is an emergency. Ask for [...] or holidays, call and ask for the Rand Butting Machine Operator risk control field representative. * H&P - Elvin Schuler MD - 07/27/2025 8:29 AM EDT History Of Present Illness Sara Edwards is a 70 y.o. female with known chronic systolic heart failure presenting with increasing edema, fatigue, and dyspnea. She was hospitalized over a month ago at [facility] and received IV diuretics. She has [...] been discussed with the patient and/or their home office representative. All questions answered and they agree to proceed. documented in this encounter Plan of Treatment Upcoming Encounters Date Type Department Care Team (Late st Contact Info) Description 09/16/2025 2:30 PM EDT Appointment Cardiac Imaging [address] [place] [address] 09/16/2025 4:00 PM EDT Office Visit [facility] [place] [facility] [address] [place] [address] Elvin Schuler MD [address] [place] [address] 10/17/2025 11:40 AM EST Office Visit [facility] Nephrology, Bone & Mineral Metabolism [address] [facility], [address] [place] [address] Azael Mooney MD [address] [place] [address] documented as of this encounter [...] then carried out using a 7.5F VIP [place]-Po catheter. Pressures were recorded as the catheter [...] the patient was transferred back to the equipment operator/laborer holding area in good condition. Hemodynamic Data [...] POCT CO-Oximitry, Venous (07/27/2025 8:59 AM EDT) [facility] POCT OXYHEMOGLOBIN, VENOUS 62 40 - 70 % 07/27/2025 8:57 AM EDT HEALTHCARE LAB Operations Team Leader ID Calier-Diana bustos Jael 07/27/2025 8:57 AM EDT [facility] Device ID [id number] 07/27/2025 8:57 AM EDT [facility] POCT Sample Site PA 07/27/2025 8:57 AM EDT [facility] POCT Total Hemoglobin 10.4(L) 11.2 - 15.7 g/dL 07/27/2025 8:57 AM EDT [facility] Venous blood specimen / Unknown 07/27/2025 8:59 AM EDT 07/27/2025 8:57 AM EDT Elvin Schuler MD LAB POINT OF CARE T EST DOCKED DEVICE UNSOLICITED RESULTS Final Result [facility] [address] [place] [address] documented in this encounter Visit Diagnoses Diagnosis [...] documented as of this encounter Care Teams Canopy Inspector Relationship Specialty Start Date End Date Rad Galvan MD [address] [place] [address] PCP - General 04/08/25 Uli Salcedo PA [address] [place] [address] Referring Physician 02/03/25 documented as of this encounter
--- OUTSIDE RECORDS SUMMARY | 2025-08-01 10:15 | XMS_ITS | Encounter Summary ---
Author Organization [facility] Address [address] [place] [address] Care Team Providers Care Talent Buyer Name Role Phone Rad Galvan MD Primary Care Provider + Reason for Referral * Diagnostic Imaging (Routine) - Authorized Specialty Diagnoses / Procedures Referred By Contac t Referred To Contact Diagnoses Encounter for screening mammogram for malignant neoplasm of breast Procedures Mammo Screening Digital Tomosynthesis Bilateral With CAD Rad Galvan MD [address] [place] [address] Phone: tel: fax: [facility] - OUTPT PHYSICAL THERAPY [address] [place] [address] Phone: tel: fax: Referral ID Status Reason Start Date Expiration Date V isits Requested Visits Authorized [id number] Authorized 08/01/2025 10/31/2026 1 1 Reason for Visit * Reason Comments Medicare Wellness-subsequent Encounter Details Date Type Department Care Team (Late st Contact Info) Description 08/01/2025 10:15 AM EDT Office Visit [facility] [address] [facility] [place] [phone] Rad Galvan MD [address] [facility] [place] [address] Type 2 diabetes mellitus with [...] Everywhere. * Health Maintenance After Age 65 (Barbadian) documented in this encounter Progress Notes * [...] 10:15 AM EDTAssociated Problem(s): Viral cardiomyopathy {CHF (Optional):98764} * Rad Galvan MD - 08/01/2025 10:15 AM EDTAssociated Problem(s): Type 2 diabetes mellitus with stage 3b chronic kidney disease, with long-term current use of insulin {Diabetes (Optional):9469931984} * Rad Galvan MD - 08/01/2025 10:15 [...] admitted within the past 365 days at [facility]. Current Medical Providers: Patient Care Team: [...] Day.) 60 tablet 2 Comfort EZ Pen [place] 32G X 6 MM [facility] USE DIRECTED FOR insulin injections 100 each 5 Continuous Glucose Auto Damage Adjuster (FreeStyle Simón 3 [place]) device Use 1 each Daily. 1 each [...] doses in 15 minutes. 30 tablet 0 [place]-3 Fatty Acids (fish oil) 1000 MG capsule [...] C SCREENING Completed Pneumococcal Vaccine 50+ Completed [facility] Preventative Services Quick Reference Risk Factors [...] criteria . She is undergoing evaluation at [facility]. Patient has diabetes which she continues [...] Description 10/31/2025 11:00 AM EST Office Visit [facility] [address] [place] [phone] Rad Galvan MD [address] [place] [address] Scheduled Orders Name Type Priority Associated Diagnoses [...] Hemoglobin A1C 7.2(A) 4.5 - 5.7 % [facility] Lot Number [id number] [facility] Expiration Date 03/09/2027 [facility] Blood 08/01/2025 10:4 0 AM EDT Rad Galvan MD POINT OF CARE TEST ORDER RICH Final Result [facility]
[address] [place] [address], documented in this encounter Visit Diagnoses Diagnosis Type 2 diabetes mellitus with hyperglycemia, with long-term current use of insulin- Primary Medicare annual wellness visit, subsequent Annual physical exam Routine general medical examination at a [facility] care facility Encounter for screening mammogram for [...] documented as of this encounter Care Teams Talent Buyer Relationship Specialty Start Date End Date Rad Galvan MD [address] [place] [address] PCP - General Family Medicine 04/15/22 documented as of this encounter
--- OUTSIDE RECORDS SUMMARY | 2025-08-15 11:00 | XMS_ITS | Encounter Summary ---
Author Organization [facility] Address [address] [place] [address] Care Team Providers Care Inserter Operator Name Role Phone Uli Salcedo Unavailable [phone] Rad Galvan MD Primary Care Provider [phone] Encounter Details Date Type Department Care Team (Latest Contact Info) Description 08/15/2025 11:00 AM EDT Ancillary Procedure [facility] [place] [address] [place] [address] Chronic combined systolic and diastolic congestive heart [...] Upcoming Encounters Date Type Department Care Team ([facility] Contact Info) Description 09/16/2025 2:30 PM EDT Appointment Cardiac Imaging [address] [place] [address] 09/16/2025 4:00 PM EDT Office Visit [facility] [place] [address] [facility]. [address] [place] [address] [place] Schuler MD [address] [place] [address] 10/17/2025 11:40 AM EST Office Visit [facility] Nephrology, Bone & Mineral Metabolism [address] [facility], [address] [place] [address] Azael Mooney MD [address] [place] [address] documented as of this encounter Visit Diagnoses [...] documented as of this encounter Care Teams Inserter Operator Relationship Specialty Start Date End Date Rad Galvan MD [address] [place] [address] PCP - General 04/08/25 Uli Salcedo PA [address] [place] [address] Referring Physician 02/03/25 documented as of this encounter
--- OUTSIDE RECORDS SUMMARY | 2025-08-17 14:00 | XMS_ITS | Encounter Summary ---
Author Organization [facility] Address [address] [id number] Care Team Providers Care Technical Sales Support Specialist Name Role Phone Rad Galvan MD Primary Care Provider + Reason for Referral * Consultation (Urgent) - Closed Specialty Diagnoses / Procedures Referred By Contac t Referred To Contact Nephrology Diagnoses Stage 4 chronic kidney disease Procedures [place] OFFICE/OUTPATIENT NEW MODERATE MDM 45 MINUTES Desi Beckford APRN [address] [place] [address] Phone: tel: fax: Azael Mooney MD [address] [place] [address] Phone: tel: fax: Referral ID Status Reason Start Date Expiration Date V isits Requested Visits Authorized [id number] Closed Specialty Services Required 08/17/2025 11/16/2026 1 1 Reason for Visit * Reason Comments Hospital Follow Up Visit Encounter Details Date Type Department Care Team (Latest Contact Info) Description 08/17/2025 2:00 PM EDT Office Visit [facility] [address] [facility] [place] [address] Desi Beckford APRN [address] [facility] [address] [place] [address] Hospital discharge follow-up (Primary Dx); [...] this encounter Progress Notes * Desi Beckford, STAB SETTER AND DRILLER - 08/17/2025 2:00 PM EDT Date: 08/17/2025 [...] scheduled for 09/21/2025. She also consulted a seat joiner during her hospital stay. Her phenobarbital was discontinued as it was causing jerking movements. She has a history of atrial fibrillation and is currently on Xarelto. Swelling in her feet and legsis reported, and her seat joiner, Dr. Pantoja, who primarily manages her heart [...] 60 tablet, Rfl: 2 Comfort EZ Pen [place] 32G X 6 MM [facility] [place] USE DIRECTED FOR insulin injections, Disp: 100 each, Rfl: 5 Continuous Glucose Photo Booth Operator (FreeStyle Simón 3 [place]) device, Use 1 each Daily., Disp: 1 [...] 15 minutes., Disp: 30 tablet, Rfl: 0 [place]-3 Fatty Acids (fish oil) 1000 MG capsule [...] but stable. - A referral to a sign painter helper, Dr. Azael Mooney, at [facility], was made for further evaluation and management. Patient or patient advertising account representative verbalized consent for the use of Ambient Listening during the visit with Desi Beckford APRN for chart documentation. 08/17/2025 16:19 EDT *30 minutes spent with patient POC, education and medication management. Follow Up: Return for Next scheduled follow up. Desi Terry APRN [facility] documented in this encounter Plan of Treatment Upcoming Encounters Date Type Department Care Team (Late st Contact Info) Description 10/31/2025 11:00 AM EST Office Visit [facility] [address] [address] Rad [...] documented as of this encounter Care Teams Technical Sales Support Specialist Relationship Specialty Start Date End Date Rad Galvan MD [address] [facility] [place] [address] [place] [address] PCP - General Family Medicine 04/15/22 documented as of this encounter
--- OUTSIDE RECORDS SUMMARY | 2025-08-22 14:00 | XMS_ITS | Encounter Summary ---
Author Organization [facility] Address [address] [place] [address] Care Team Providers Care Molasses Feed Mixer Name Role Phone Uli Salcedo PA Unavailable [phone] Rad Galvan MD Primary Care Provider [phone] Reason for Referral * Consultation (Routine) - Authorized Specialty Diagnoses / Procedures Referred By Regan greene Referred To Contact Diagnoses Stage 3b chronic kidney disease (CMS/HCC) Lenore Cobos MD [facility] [address] [address] Phone: tel: fax: Referral ID Status Reason Start Date Expiration Date V isits Requested Visits Authorized [id number] Authorized 08/22/2025 02/21/2027 1 1 Reason for Visit * Reason Comments Follow-up * Consultation (Urgent) - Closed Specialty Diagnoses / Procedures Referred By Regan greene Referred To Contact Nephrology Diagnoses Stage 4 chronic kidney disease (CMS/HCC) Procedures [place] OFFICE/OUTPATIENT NEW MODERATE MDM 45-59 MINUTES 131 ([email or web address]) - Ambulatory Referral to Nephrology Desi Beckford, MEDICAL TECHNOLOGIST PRN [address] [place] [address] Phone: tel: fax: Azael Mooney MD [address] [place] [address] Phone: tel: fax: Referral ID Status Reason Start Date Expiration Date Visits Re quested Visits Authorized [id number] Closed 08/17/2025 11/16/2026 1 1 Encounter Details Date Type Department Care Team (Late st Contact Info) Description 08/22/2025 2:00 PM EDT Office Visit [facility] [address] , [address] [place] [address] Lenore Seaman MD [address] [place] [address] Obesity (BMI 35.0-39.9 without comorbidity) [...] at all 08/22/2025 2:23 PM EDT Beata Savgae documented as of this encounter Miscellaneous Notes [...] but has not previously consulted with a human resource assistant. Since 2020, her kidney function has shown [...] She is under the care of a police lieutenant precinct who has expressed concerns about excessive fluid [...] her diuretic regimen as prescribed by her police lieutenant precinct. Blood work including Cystatin C, repeat RFP [...] will follow up in 2-3 months at [facility]. RTC in 6 months with ordered [...] Procedure Laterality Date APPENDECTOMY N/A Appendectomy from [facility] GALLBLADDER SURGERY N/A Anastomosis Of Gallbladder from [facility] INSERT / REPLACE / REMOVE PACEMAKER 2019 TONSILLECTOMY N/A Tonsillectomy from [facility] [3] Family History Problem Relation Name Age [...] EDT Appointment Cardiac Imaging [address] [place] [address] 09/16/2025 4:00 PM EDT Office Visit [facility] [place] [address] [place] [address] Elvin Schuler MD [address] [place] [address] 10/17/2025 11:40 AM EST Office Visit [facility] [place] [facility], Bone & Mineral Metabolism [address] [facility], [address] [place] [address] Azael Mooney MD [address] [place] [address] Scheduled Orders Name Type Priority Associated Diagnoses Orde r Schedule Renal Function Panel, Plasma Lab Routine Stage 3b chronic kidney disease ([facility]/HCC) Expected: 02/19/2026 (Approximate), Expires: 02/19/2027 Albumin-creatinine ratio, urine, random Lab Routine Stage 3b chronic kidney disease ([facility]) Expected: 10/22/2025 (Approximate), Expires: 02/23/2027 CBC W/O Differential Lab Routine Stage 3b chronic kidney disease ([facility]) Expected: 10/22/2025 (Approximate), Expires: 02/23/2027 Cystatin C Lab Routine Stage 3b chronic kidney disease ([facility]) Expected: 10/22/2025 (Approximate), Expires: 02/23/2027 Protein, Random, Urine with Creatinine Lab Routine Stage 3b chronic kidney disease ([facility]/HCC) Expected: 10/22/2025 (Approximate), Expires: 02/23/2027 PTH Intact Total Lab Routine Stage 3b chronic kidney disease ([facility]/HCC) Expected: 10/22/2025 (Approximate), Expires: 02/23/2027 Urinalysis with reflex microscopic (Culture NOT Included) Lab Routine Stage 3b chronic kidney disease ([facility]) Expected: 10/22/2025 (Approximate), Expires: 02/23/2027 Vitamin D 25 Hydroxy Lab Routine Stage 3b chronic kidney disease (CMS/HCC) Expected: 10/22/2025 (Approximate), Expires: 02/23/2027 Scheduled Referrals Name Type Priority Associated Diagnoses Order Schedule Follow Up Nephrology Outpatient Referral Routine Stage 3b chronic kidney disease (CMS/HCC) Expected: 10/22/2025 (Approximate), Expires: 09/21/2026 documented as of this encounter Results * (ABNORMAL) Cystatin C (08/22/2025 3:59 PM EDT) Cystatin C 1.8(H) 0.61 - 0.95 mg/L 08/22/2025 6:18 PM EDT [facility] Blood Venous blood specimen / Unknown Venipuncture / Unknown 08/22/2025 3:59 PM EDT 08/22/2025 3:59 PM EDT Lenore Cobos MD LAB BLOOD OR DERABLES Final Result [facility] [address] [place] [address] * Vitamin D 25 Hydroxy (08/22/2025 3:59 PM EDT) Vitamin D 25 Hydroxy 61.8 20.0 - 80.0 ng/mL 08/22/2025 7:20 PM EDT [facility] Blood Venous blood specimen / Unknown Venipuncture / Unknown 08/22/2025 3:59 PM EDT 08/22/2025 3:59 PM EDT Narrative [facility] - 08/22/2025 7:20 PM EDT Testing performed on [employer], standardized against NIST SRM 2972. When testing [...] to 80 ng/mL Possible toxicity: >100 ng/mL Lenore Cobos MD LAB BLOOD OR DERABLES Final Result [facility] [address] [place] [address] * (ABNORMAL) PTH Intact Total (08/22/2025 3:59 PM EDT) PTH Intact Total 242(H) 9 - 77 pg/mL 08/22/2025 6:11 PM EDT [facility] Blood Venous blood specimen / Unknown Venipuncture / Unknown 08/22/2025 3:59 PM EDT 08/22/2025 3:59 PM EDT Narrative [facility] - 08/22/2025 6:11 PM EDT Assay performed by immunoassay at the [facility]. Performed on [employer] Numer[employer] Control Grinder chemiluminescent immunoassay, tractable to the World Health Organization's first international standard for PTH from the NIBS, Code 79/500. Results obtained from different test methods or kits cannot be used interchangeably. Lenore Cobos MD LAB BLOOD OR DERABLES Final Result [facility] [address] [place] [address] * (ABNORMAL) CBC W/O Differential (08/22/2025 3:59 PM EDT) WBC Count 7.37 3.70 - 10.30 10*3/uL LAB HEMATOLOGY METHOD 08/22/2025 5:23 PM EDT [facility] RBC Count 2.97(L) 3.90 - 5.20 10*6/uL LAB HEMATOLOGY METHOD 08/22/2025 5:23 PM EDT [facility] HGB 10.1(L) 11.2 - 15.7 g/dL LAB HEMATOLOGY METHOD 08/22/2025 5:23 PM EDT [facility] HCT 31.6(L) 34.0 - 45.0 % LAB HEMATOLOGY METHOD 08/22/2025 5:23 PM EDT [facility] Platelet Count 208 155 - 369 10*3/uL LAB HEMATOLOGY METHOD 08/22/2025 5:23 PM EDT [facility] MCV 106(H) 79 - 98 fL LAB HEMATOLOGY METHOD 08/22/2025 5:23 PM EDT [facility] MCH 34.0(H) 26.0 - 32.0 pg LAB HEMATOLOGY METHOD 08/22/2025 5:23 PM EDT [facility] MCHC 32.0 30.7 - 35.5 g/dL LAB HEMATOLOGY METHOD 08/22/2025 5:23 PM EDT [facility] RDW 15.4(H) 11.5 - 14.5 % LAB HEMATOLOGY METHOD 08/22/2025 5:23 PM EDT [facility] MPV 10.1 8.8 - 12.5 fL LAB HEMATOLOGY METHOD 08/22/2025 5:23 PM EDT [facility] nRBC 0.0 <=0.0 per 100 WBCs LAB HEMATOLOGY METHOD 08/22/2025 5:23 PM EDT [facility] Blood Venous blood specimen / Unknown Venipuncture / Unknown 08/22/2025 3:59 PM EDT 08/22/2025 3:59 PM EDT us Lenore Cobos MD LAB BLOOD OR DERABLES Final Result [facility] [address] [place] [address] * (ABNORMAL) Renal Function Panel, Plasma (08/22/2025 3:59 PM EDT) Glucose, Plasma 178(H) 74 - 99 mg/dL 08/22/2025 5:45 PM EDT [facility] BUN, Plasma 32(H) 8 - 23 mg/dL 08/22/2025 5:45 PM EDT [facility] Creatinine, Plasma 1.55(H) 0.60 - 1.10 mg/dL 08/22/2025 5:45 PM EDT [facility] BUN/Creatinine Ratio 21 08/22/2025 5:45 PM EDT [facility] Sodium, Plasma 136 136 - 145 mmol/L 08/22/2025 5:45 PM EDT [facility] Potassium, Plasma 4.6 3.6 - 4.9 mmol/L 08/22/2025 5:45 PM EDT [facility] Chloride, Plasma 92(L) 97 - 107 mmol/L 08/22/2025 5:45 PM EDT [facility] CO2, Plasma 30(H) 22 - 29 mmol/L 08/22/2025 5:45 PM EDT [facility] Anion Gap 14 6 - 16 mmol/L 08/22/2025 5:45 PM EDT [facility] Total Calcium, Plasma 9.6 8.9 - 10.2 mg/dL 08/22/2025 5:45 PM EDT [facility] Phosphorus, Plasma 3.6 2.5 - 4.5 mg/dL 08/22/2025 5:45 PM EDT [facility] Albumin, Plasma 4.1 3.5 - 5.2 g/dL 08/22/2025 5:45 PM EDT [facility] eGFRcr 36.3 mL/min/1.7 3m*2 08/22/2025 5:45 PM EDT [facility] Comment:Reported eGFRcr in m L/min/1.73m2 is based the CKD-EPI 2020 equation that does not use a race coefficient. Blood Venous blood specimen / Unknown Venipuncture / Unknown 08/22/2025 3:59 PM EDT 08/22/2025 3:59 PM EDT Lenore Cobos MD LAB BLOOD OR DERABLES Final Result [facility] [address] [place] [id number] * Protein, Random, Urine with Creatinine (08/22/2025 3:48 PM EDT) Protein, Urine 6 mg/dL 08/22/2025 5:50 PM EDT [facility] Creatinine, Urine 19 mg/dL 08/22/2025 5:50 PM EDT [facility] Protein/Creati nine Ratio 0.3 mg/mg Creat 08/22/2025 5:50 PM EDT [facility] Urine Urine specimen obtained by clean catch procedure / Unknown Non-blood Collection / Unknown 08/22/2025 3:48 PM EDT 08/22/2025 3:48 PM EDT us Lenore Cobos MD LAB URINE OR DERABLES Final Result [facility] [address] [place] [id number] * (ABNORMAL) Urinalysis with reflex microscopic (Culture NOT Included) (08/22/2025 3:48 PM EDT) Color, Urine Yellow LAB URINALYSIS - AUTOMATED METHOD 08/22/2025 5:22 PM EDT [facility] Clarity, Urine Clear LAB URINALYSIS - AUTOMATED METHOD 08/22/2025 5:22 PM EDT [facility] Spec [place], Urine 1.009 1.005 - 1.030 LAB URINALYSIS - AUTOMATED METHOD 08/22/2025 5:22 PM EDT [facility] pH, Urine 7.0 5.0 - 8.0 LAB URINALYSIS - AUTOMATED METHOD 08/22/2025 5:22 PM EDT [facility] Protein, Urine Negative Negative mg/dL LAB URINALYSIS - AUTOMATED METHOD 08/22/2025 5:22 PM EDT [facility] Glucose, Urine 500(A) Negative mg/dL LAB URINALYSIS - AUTOMATED METHOD 08/22/2025 5:22 PM EDT [facility] Ketones, Urine Negative Negative mg/dL LAB URINALYSIS - AUTOMATED METHOD 08/22/2025 5:22 PM EDT [facility] Blood, Urine Negative Negative LAB URINALYSIS - AUTOMATED METHOD 08/22/2025 5:22 PM EDT [facility] Bilirubin, Urine Negative Negative LAB URINALYSIS - AUTOMATED METHOD 08/22/2025 5:22 PM EDT [facility] Urobilinogen, Urine 0.2 0.2 to 1.0 mg/dL LAB URINALYSIS - AUTOMATED METHOD 08/22/2025 5:22 PM EDT [facility] Leukocytes, Urine Negative Negative LAB URINALYSIS - AUTOMATED METHOD 08/22/2025 5:22 PM EDT [facility] Nitrite, Urine Negative Negative LAB URINALYSIS - AUTOMATED METHOD 08/22/2025 5:22 PM EDT [facility] Urine Urine specimen obtained by clean catch procedure / Unknown Non-blood Collection / Unknown 08/22/2025 3:48 PM EDT 08/22/2025 3:48 PM EDT us Lenore Cobos MD LAB URINE OR DERABLES Final Result Performing Organization Address City/[facility]/ZIP Co de Phone Number [facility] [address] [place] [address] * Albumin-creatinine ratio, urine, random (08/22/2025 3:48 PM EDT) Microalbumin, Urine <1.2 <1.9 mg/dL 08/22/2025 6:20 PM EDT [facility] Creatinine, Urine 19 mg/dL 08/22/2025 6:20 PM EDT [facility] Albumin/Creatin ine Ratio 08/22/2025 6:20 PM EDT [facility] Comment:Unable to calculate, at least one value is above or below the detection limit. Urine Urine specimen obtained by clean catch procedure / Unknown Non-blood Collection / Unknown 08/22/2025 3:48 PM EDT 08/22/2025 3:48 PM EDT us Lenore Cobos MD LAB URINE OR DERABLES Final Result Performing Organization Address City/[facility]/ZIP Co de Phone Number [facility] [address] [place] [address] documented in this encounter Visit Diagnoses Diagnosis [...] documented as of this encounter Care Teams Molasses Feed Mixer Relationship Specialty Start Date End Date Rad Galvan MD [address] [place] [address] PCP - General 04/08/25 Uli Salcedo PA [address] [place] [address] Referring Physician 02/03/25 documented as of this encounter
--- NOTE | 2025-08-24 09:37 | MM_ITS ---
PROCEDURE INFORMATION: Exam: MG Bilateral Screening 3D Mammography Exam date and time: 08/24/2025 9:54 AM Age: 70 years old Clinical indication: Screening examination TECHNIQUE: Imaging protocol: Bilateral Screening tomosynthesis and 2D mammography including computer-aided detection (CAD) when performed. COMPARISON: 1. MG MM DIG SCREENING MAMM BI W/CAD 02/18/2023 7:55 AM 2. MG MM DIG SCREENING MAMM BI W/CAD 12/22/2019 9:34 AM FINDINGS: MAMMOGRAPHY: Breast composition: There are scattered areas of fibroglandular density. Mass: No suspicious masses. Architectural distortion: None. Calcifications: No suspicious calcifications. Asymmetric density: None. Skin thickening: None. Axillary adenopathy: Both axilla are obscured by bilateral cardiac devices. IMPRESSION: No mammographic evidence of malignancy. Annual screening is recommended unless otherwise clinically indicated. ASSESSMENT: BI-RADS Category 1: Negative.
--- OUTSIDE RECORDS SUMMARY | 2025-08-24 09:50 | XMS_ITS | Encounter Summary ---
Author Organization [facility] Address [address] [place] [address] Care Team Providers Care Mix House Operator Name Role Phone Rad Galvan MD [...] Description 10/31/2025 11:00 AM EST Office Visit [facility] [address] [facility] [place] [address] Rad Galvan MD [address] [facility] [address] [place] [address] documented as of this encounter Visit Diagnoses Not on filedocumented in this encounter Additional Health Concerns Assessment Noted Time PHQ-2 Depression Total Score: 1 02/17/20 24 10:24 AM EDT documented as of this encounter Care Teams Mix House Operator Relationship Specialty Start Date End Date Rad Galvan MD [address] [place] [address] PCP - General Family Medicine 04/15/22 documented as of this encounter
--- OUTSIDE RECORDS SUMMARY | 2025-08-24 09:52 | XMS_ITS | Encounter Summary ---
Author Organization [facility] Address [address] [place] [address] Care Team Providers Care Hose Inspector Name Role Phone Uli Salcedo Unavailable [phone] Rad Galvan MD Primary Care Provider [phone] Encounter Details Date Type Department Care Team (Late st Contact Info) Description 07/22/2025 Telephone [facility] [place] [address], [address] [place] [address] Chika Orellana APRN [address] [place] [address] Social History Tobacco Use Types [...] PM EDT Appointment Cardiac Imaging [address] [place] [address] 09/16/2025 4:00 PM EDT Office Visit [facility] [place] [address] [facility] [place] [address] Elvin Schuler MD [address] [place] [address] 10/17/2025 11:40 AM EST Office Visit [facility] Nephrology, Bone & Mineral Metabolism [address], [address] [place] [address] Azael Mooney MD [address] [place] [address] documented as of this encounter Visit Diagnoses [...] documented as of this encounter Care Teams Hose Inspector Relationship Specialty Start Date End Date Rad Galvan MD [address] [place], [place] [id number] PCP - General 04/08/25 Uli Salcedo PA [address] [place], [place] [id number] Referring Physician 02/03/25 documented as of this encounter
--- OUTSIDE RECORDS SUMMARY | 2025-08-24 09:55 | XMS_ITS | Clinical Summary ---
Author Organization [facility] Address [address] [place] [address] Care Team Providers Care Metal Reed Tuner Name Role Phone Uli Salcedo Unavailable [phone] Rad Galvan MD Primary Care Provider [phone] Allergies Active Allergy Reactions Criticality Noted Date Comments Empagliflozin Itching Medium 01/21/2025 Metoclopramide Rash,Other - please document in the comment field Low 04/15/2022 Promethazine Unknown - Patient st [...] needed 90 tablet 6 08/04/20 25 Active Additional Information Patient not taking.Reported on 08/22/2025 Ozempic, 0.25 or 0.5 MG/DOSE, 2 MG/3ML solution pen-injector inject 0.5 mg subcutaneously once weekly 08/01/20 25 Active Xarelto 15 MG tablet Take 1 tablet by mouth 1 time each day with dinner. 08/13/20 25 Active bumetanide (Bumex) 2 MG tablet Take 1 tablet by mouth 2 times a day. 06/29/20 25 Active prednisoLONE acetate (Pred-Forte) 1 % ophthalmic suspension 1 drop 4 times a day. 08/07/20 25 Active potassium chloride CR (K-Tab) 20 MEQ ER tablet Take 1 tablet by mouth 2 times a day. 08/01/20 25 Active bumetanide (Bumex) 1 MG tablet Take 2 tablets by mouth daily. Can take additional doses if needed 04/26/20 25 025 Discontin ued(Reord er) Active Problems Problem Noted Date Diagnosed Date Obesity (BMI 35.0-39.9 without comorbidity) 06/24 Congestive heart failure 02/18/2025 Encounters Date Type Department Care Team Description 08/22/2025 2:00 PM EDT Office Visit Professional [employer] [place] [facility] [address], [address] [place] [address] Lenore Aviles MD Obesity (BMI 35.0-39.9 without comorbidity) (Primary Dx); Chronic systolic congestive heart failure (CMS/HCC); Stage 3b chronic kidney disease (CMS/HCC) 08/22/2025 Travel 08/15/2025 11:00 AM EDT Ancillary Procedure [facility] [address] [place] [address] Chronic combined systolic and diastolic congestive heart failure (CMS/HCC) 08/15/2025 Travel 08/09/2025 Telephone [facility] [address] [place] [address] Elvin Schuler MD HCN - Patient Message 08/09/2025 Travel 08/09/2025 Orders Only [facility] [address] [place] [address] Linda Garcia, applied psychology professor combined systolic and diastolic congestive heart failure (CMS/HCC) (Primary Dx) 08/04/2025 Refill [facility] [address] [place] [address] Yaritza Johnson RN 07/27/2025 8:45 AM EDT - 07/27/2025 10:00 AM EDT Surgery Cardiac [place] [address] [place] [address] Elvin Schuler MD Right heart catheterization [14230 (CPT )] 07/27/2025 8:02 AM EDT - 07/27/2025 10:39 AM EDT Hospital Encounter Cardiac [place] [address] [place] [address] Elvin Schuler MD Chronic combined systolic and diastolic congestive heart failure (CMS/HCC) Discharge Disposition: Home or Self Care 07/27/2025 Telephone [facility] [address] [place] [address] Yaritza Johnson RN 07/22/2025 Telephone [facility] [address], [address] [place] [address] Chika Orellana APRN 07/15/2025 10:30 AM EDT Ancillary Procedure [facility] [address] [place] [address] Chronic combined systolic and diastolic congestive heart failure (CMS/HCC) 07/08/2025 1:45 PM EDT Office Visit [facility] 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 [place] [address] Elvin Schuler MD HCN - Patient Message 06/16/2025 Telephone [facility] [address] [place] [address] Elvin Schuler MD HCN - Patient Message 06/15/2025 8:00 AM EDT Ancillary Procedure [facility] [address] [place] [address] Chronic combined systolic and diastolic congestive heart [...] Pressure 123/55 07/27/2025 9:45 AM EDT Pulse 70 08/22/2025 2:01 PM EDT Temperature 36.3 C (97.4 F) 08/22/2025 2:01 PM EDT Respiratory Rate 18 07/27/2025 9:45 AM EDT Oxygen Saturation 96% 08/22/2025 2:01 PM EDT Inhaled Oxygen Concentration - - Weight 91.5 kg (201 lb 11.5 oz) 08/22/2025 2:01 PM EDT Height 154.9 cm (5' 1 ) 08/22/2025 2:01 PM EDT Body Mass Index 38.11 08/22/2025 2:01 PM EDT Plan of Treatment Upcoming Encounters Date Type Department Care Team (Late st Contact Info) Description 09/16/2025 2:30 PM EDT Appointment Cardiac Imaging [address] [place] [address] 09/16/2025 4:00 PM EDT Office Visit [facility] [place] [address] [facility] [facility] [place] [address] Elvin Schuler MD [address] [place] [address] 10/17/2025 11:40 AM EST Office Visit [facility] Nephrology, Bone & Mineral Metabolism [address] [place] [address] Azael Mooney MD [address] [place] [address] Health Maintenance Due Date Last Done Comments [facility]-Bone Density Scan 1957 [facility]-/Child/Adol SDOH Screenings 1957 Diabetes: Dental Exam 1967 [facility]- SDOH Screenings 1975 [facility]-Adult SDOH Screenings 1975 [facility]-DTaP,Tdap,and Td Vaccines (1 - Tdap) 01/24/1997 01/23/1997 CT Colonography 2002 Colonoscopy 2002 FIT 2002 FOBT 2002 Sigmoidoscopy 2002 [facility]-Breast Cancer Screening 2007 [facility]-Zoster Vaccines (1 of 2) 2007 [facility]-Medicare Annual Wellness (AWV) 02/16/2025 02/17/2024 [id number]-CDSLY-89 Vaccine ( - season) 2025 09/06/2022, 11/28/2021, 03/06/2021, Additional history exists [facility]-Influenza Vaccine (#1) 07/25/202509/24, 08/18/2023, 09/06/2022, Additional history exists [facility]-Diabetes: Hemoglobin A1C 10/31/202506/2025, 04/07/2025, 09/24/2024, Additional history exists FIT-DNA 02/15/2026 02/15/2023 [facility]-Colorectal Cancer Screening 02/15/2026 [facility]-Depression Screening 08/22/2026 08/22/2025, 06/24 [facility]-Hepatitis C Screening Completed 11/26/2020 [facility]-RSV [...] Procedure Name Priority Date/Time Associated Diagnosis Comments RENAL FUNCTION PANEL, PLASMA Routine 08/22/2025 3:59 PM EDT Stage 3b chronic kidney disease (CMS/HCC) CBC W/O DIFFERENTIAL Routine 08/22/2025 3:59 PM EDT Stage 3b chronic kidney disease (CMS/HCC) PTH INTACT TOTAL Routine 08/22/2025 3:59 PM EDT Stage 3b chronic kidney disease (CMS/HCC) VITAMIN D 25 HYDROXY Routine 08/22/2025 3:59 PM EDT Stage 3b chronic kidney disease (CMS/HCC) CYSTATIN C Routine 08/22/2025 3:59 PM EDT Stage 3b chronic kidney disease (CMS/HCC) URINALYSIS WITH REFLEX MICROSCOPIC Routine 08/22/2025 3:48 PM EDT Stage 3b chronic kidney disease (CMS/HCC) PROTEIN, URINE, RANDOM WITH CREATININE Routine 08/22/2025 3:48 PM EDT Stage 3b chronic kidney disease (CMS/HCC) ALBUMIN, URINE, RANDOM Routine 3:48 PM EDT Stage 3b chronic kidney disease (CMS/HCC) RIGHT HEART CATHETERIZATION Routine 07/27/2025 9:01 AM [...] Relevant to Health Maintenance Results * (ABNORMAL) Cystatin C (08/22/2025 3:59 PM EDT) Cystatin C 1.8(H) 0.61 - 0.95 mg/L 08/22/2025 6:18 PM EDT [facility] Blood Venous blood specimen / Unknown Venipuncture / Unknown 08/22/2025 3:59 PM EDT 08/22/2025 3:59 PM EDT Lenore Cobos MD LAB BLOOD OR DERABLES Final Result [facility] [address] [place] [address] * Vitamin D 25 Hydroxy (08/22/2025 3:59 PM EDT) Pathologist [facility] Vitamin D 25 Hydroxy 61.8 20.0 - 80.0 ng/mL 08/22/2025 7:20 PM EDT [facility] Blood Venous blood specimen / Unknown Venipuncture / Unknown 08/22/2025 3:59 PM EDT 08/22/2025 3:59 PM EDT Narrative [facility] - 08/22/2025 7:20 PM EDT Testing performed on [employer] Patient Information Coordinator, standardized against NIST SRM [id number]. When testing [...] MD LAB BLOOD OR DERABLES Final Result [facility] [address] [place] [address] * (ABNORMAL) CBC W/O Differential (08/22/2025 3:59 PM EDT) WBC Count 7.37 3.70 - 10.30 10*3/uL LAB HEMATOLOGY METHOD 08/22/2025 5:23 PM EDT [facility] RBC Count 2.97(L) 3.90 - 5.20 10*6/uL LAB HEMATOLOGY METHOD 08/22/2025 5:23 PM EDT [facility] HGB 10.1(L) 11.2 - 15.7 g/dL LAB HEMATOLOGY METHOD 08/22/2025 5:23 PM EDT [facility] HCT 31.6(L) 34.0 - 45.0 % LAB HEMATOLOGY METHOD 08/22/2025 5:23 PM EDT [facility] Platelet Count 208 155 - 369 10*3/uL LAB HEMATOLOGY METHOD 08/22/2025 5:23 PM EDT [facility] MCV 106(H) 79 - 98 fL LAB HEMATOLOGY METHOD 08/22/2025 5:23 PM EDT [facility] MCH 34.0(H) 26.0 - 32.0 pg LAB HEMATOLOGY METHOD 08/22/2025 5:23 PM EDT [facility] MCHC 32.0 30.7 - 35.5 g/dL LAB HEMATOLOGY METHOD 08/22/2025 5:23 PM EDT [facility] RDW 15.4(H) 11.5 - 14.5 % LAB HEMATOLOGY METHOD 08/22/2025 5:23 PM EDT [facility] MPV 10.1 8.8 - 12.5 fL LAB HEMATOLOGY METHOD 08/22/2025 5:23 PM EDT [facility] nRBC 0.0 <=0.0 per 100 WBCs LAB HEMATOLOGY METHOD 08/22/2025 5:23 PM EDT [facility] Blood Venous blood specimen / Unknown Venipuncture / Unknown 08/22/2025 3:59 PM EDT 08/22/2025 3:59 PM EDT us Lenore Cobos MD LAB BLOOD OR DERABLES Final Result Performing Organization Address City/[facility]/ZIP Co de Phone Number [facility] [address] [place] [address] * (ABNORMAL) PTH Intact Total (08/22/2025 3:59 PM EDT) Pathologist [facility] PTH Intact Total 242(H) 9 - 77 pg/mL 08/22/2025 6:11 PM EDT [facility] Blood Venous blood specimen / Unknown Venipuncture / Unknown 08/22/2025 3:59 PM EDT 08/22/2025 3:59 PM EDT Narrative [facility] - 08/22/2025 6:11 PM EDT Assay performed by immunoassay at the [facility]. Performed on [employer] Patient Information Coordinator chemiluminescent immunoassay, tractable to the World Health Organization's first international standard for PTH from the [facility], Code 79/500. Results obtained from different test methods or kits cannot be used interchangeably. us Lenore Cobos MD LAB BLOOD OR DERABLES Final Result [facility] [address] [place] [address] * (ABNORMAL) Renal Function Panel, Plasma (08/22/2025 3:59 PM EDT) Pathologist [facility] Glucose, Plasma 178(H) 74 - 99 mg/dL 08/22/2025 5:45 PM EDT [facility] BUN, Plasma 32(H) 8 - 23 mg/dL 08/22/2025 5:45 PM EDT [facility] Creatinine, Plasma 1.55(H) 0.60 - 1.10 mg/dL 08/22/2025 5:45 PM EDT [facility] BUN/Creatinine Ratio 21 08/22/2025 5:45 PM EDT [facility] Sodium, Plasma 136 136 - 145 mmol/L 08/22/2025 5:45 PM EDT [facility] Potassium, Plasma 4.6 3.6 - 4.9 mmol/L 08/22/2025 5:45 PM EDT [facility] Chloride, Plasma 92(L) 97 - 107 mmol/L 08/22/2025 5:45 PM EDT [facility] CO2, Plasma 30(H) 22 - 29 mmol/L 08/22/2025 5:45 PM EDT [facility] Anion Gap 14 6 - 16 mmol/L 08/22/2025 5:45 PM EDT [facility] Total Calcium, Plasma 9.6 8.9 - 10.2 mg/dL 08/22/2025 5:45 PM EDT [facility] Phosphorus, Plasma 3.6 2.5 - 4.5 mg/dL 08/22/2025 5:45 PM EDT [facility] Albumin, Plasma 4.1 3.5 - 5.2 g/dL 08/22/2025 5:45 PM EDT [facility] eGFRcr 36.3 mL/min/1.7 3m*2 08/22/2025 5:45 PM EDT [facility] Comment:Reported eGFRcr in m L/min/1.73m2 is based the CKD-EPI 2020 equation that does not use a race coefficient. Blood Venous blood specimen / Unknown Venipuncture / Unknown 08/22/2025 3:59 PM EDT 08/22/2025 3:59 PM EDT us Lenore Cobos MD LAB BLOOD OR DERABLES Final Result [facility] [address] [place] [address] * Albumin-creatinine ratio, urine, random (08/22/2025 3:48 PM EDT) Microalbumin, Urine <1.2 <1.9 mg/dL 08/22/2025 6:20 PM EDT [facility] Creatinine, Urine 19 mg/dL 08/22/2025 6:20 PM EDT [facility] Albumin/Creatin ine Ratio 08/22/2025 6:20 PM EDT [facility] Comment:Unable to calculate, at least one value is above or below the detection limit. Urine Urine specimen obtained by clean catch procedure / Unknown Non-blood Collection / Unknown 08/22/2025 3:48 PM EDT 08/22/2025 3:48 PM EDT us Lenore Cobos MD LAB URINE OR DERABLES Final Result Performing Organization Address [facility]/ZIP Co de Phone Number [facility] [address] [place] [address] * Protein, Random, Urine with Creatinine (08/22/2025 3:48 PM EDT) Protein, Urine 6 mg/dL 08/22/2025 5:50 PM EDT [facility] Creatinine, Urine 19 mg/dL 08/22/2025 5:50 PM EDT [facility] Protein/Creati nine Ratio 0.3 mg/mg Creat 08/22/2025 5:50 PM EDT [facility] Urine Urine specimen obtained by clean catch procedure / Unknown Non-blood Collection / Unknown 08/22/2025 3:48 PM EDT 08/22/2025 3:48 PM EDT us Lenore Cobos MD LAB URINE OR DERABLES Final Result Performing Organization Address City/[facility] Co de Phone Number [facility] [address] [place] [address] * (ABNORMAL) Urinalysis with reflex microscopic (Culture NOT Included) (08/22/2025 3:48 PM EDT) Color, Urine Yellow LAB URINALYSIS - AUTOMATED METHOD 08/22/2025 5:22 PM EDT [facility] Clarity, Urine Clear LAB URINALYSIS - AUTOMATED METHOD 08/22/2025 5:22 PM EDT [facility] Spec [place], Urine 1.009 1.005 - 1.030 LAB URINALYSIS - AUTOMATED METHOD 08/22/2025 5:22 PM EDT [facility] pH, Urine 7.0 5.0 - 8.0 LAB URINALYSIS - AUTOMATED METHOD 08/22/2025 5:22 PM EDT [facility] Protein, Urine Negative Negative mg/dL LAB URINALYSIS - AUTOMATED METHOD 08/22/2025 5:22 PM EDT [facility] Glucose, Urine 500(A) Negative mg/dL LAB URINALYSIS - AUTOMATED METHOD 08/22/2025 5:22 PM EDT [facility] Ketones, Urine Negative Negative mg/dL LAB URINALYSIS - AUTOMATED METHOD 08/22/2025 5:22 PM EDT [facility] Blood, Urine Negative Negative LAB URINALYSIS - AUTOMATED METHOD 08/22/2025 5:22 PM EDT [facility] Bilirubin, Urine Negative Negative LAB URINALYSIS - AUTOMATED METHOD 08/22/2025 5:22 PM EDT [facility] Urobilinogen, Urine 0.2 0.2 to 1.0 mg/dL LAB URINALYSIS - AUTOMATED METHOD 08/22/2025 5:22 PM EDT [facility] Leukocytes, Urine Negative Negative LAB URINALYSIS - AUTOMATED METHOD 08/22/2025 5:22 PM EDT [facility] Nitrite, Urine Negative Negative LAB URINALYSIS - AUTOMATED METHOD 08/22/2025 5:22 PM EDT [facility] Urine Urine specimen obtained by clean catch procedure / Unknown Non-blood Collection / Unknown 08/22/2025 3:48 PM EDT 08/22/2025 3:48 PM EDT Lenore Cobos MD LAB URINE OR DERABLES Final Result Performing Organization Address City/State/[facility] Co de Phone Number [facility] [address] [place] [address] * RIGHT HEART CATHETERIZATION (07/27/2025 9:01 AM [...] then carried out using a 7.5F VIP [place]-Po catheter. Pressures were recorded as the catheter [...] the patient was transferred back to the collaborative teacher holding area in good condition. Hemodynamic Data [...] POCT CO-Oximitry, Venous (07/27/2025 8:59 AM EDT) [facility] POCT OXYHEMOGLOBIN, VENOUS 62 40 - 70 % 07/27/2025 8:57 AM EDT [facility] Junior Art Director ID Calier-Jael Ortiz ch 07/27/2025 8:57 AM EDT [facility] Device ID [id number] 07/27/2025 8:57 AM EDT [facility] POCT Sample Site PA 07/27/2025 8:57 AM EDT [facility] POCT Total Hemoglobin 10.4(L) 11.2 - 15.7 g/dL 07/27/2025 8:57 AM EDT [facility] Venous blood specimen / Unknown 07/27/2025 8:59 AM EDT 07/27/2025 8:57 AM EDT Elvin Schuler MD LAB POINT OF CARE T EST DOCKED DEVICE UNSOLICITED RESULTS Final Result [facility] [address] [place] [address] * (ABNORMAL) N-Terminal Probnp, Plasma (07/08/2025 3:19 [...] Final Result [facility] [address] [place] [address] * (ABNORMAL) Comprehensive metabolic panel (07/08/2025 3:19 [...] 07/08/2025 3:54 PM EDT us Chika Orellana NEW ACCOUNTS CLERK LAB BLOOD ORDERABLES Final Result [facility] [address] [place] [address] * (ABNORMAL) Basic Metabolic Panel, Plasma (06/23/2025 [...] ORDERABLES Final R esult EXTERNAL LAB * [place] Hepatitis C Antibody (11/26/2020 6:51 PM EST) [place] Hepatitis C Ab NEGATIVE Reference Range: Negative [facility] 11/26/2020 6:51 PM EST 11/26/2020 7:09 PM EST Justo Morse MD LAB BLOOD ORDERABLES Final Re sult SUNQUEST from Last 3 Months or Most Recently Relevant to Health Maintenance Insurance MEDICARE Advance Directives Documents on File Type Date Recorded Patient Supervisor [employer] Expl anation Advance Directives and Living Will 03/30/2025 LIVING WILL DIRECTIV E * Full Code (Latest Code Status on File) Date Activated Date Inactivated Comments 07/27/2025 9:34 AM 07/27/2025 12:40 PM Question Answer Comments Patient has decision-making capacity? Yes Healthcare Agents on File Name Relationship Healthcare Agent Relationshi p Communication Yennifer Edwards Daughter Next of Kin Care Teams Metal Reed Tuner Relationship Specialty Start Date End Date Rad Galvan MD [address] [place] [address] PCP - General 04/08/25 Uli Salcedo PA [address] [place] [address] Referring Physician 02/03/25
--- OUTSIDE RECORDS SUMMARY | 2025-08-24 09:55 | XMS_ITS | Encounter Summary ---
Author Organization [facility] Address [address] [place] [address] Care Team Providers Care Data Specialist Name Role Phone Uli Salcedo Unavailable [phone] Rad Galvan MD Primary Care Provider [phone] Encounter Details Date Type Department Care Team (Latest Contact Info) Description 08/22/2025 Travel Social History Tobacco Use Types Packs/Day [...] Beata Savage documented as of this encounter Plan of Treatment Upcoming Encounters Date Type Department Care Team (Late st Contact Info) Description 09/16/2025 2:30 PM EDT Appointment Cardiac Imaging [address] [place] [address] 09/16/2025 4:00 PM EDT Office Visit [facility] [place] [address] [facility] [facility] [place] [address] Elvin Schuler MD [address] [place] [address] 10/17/2025 11:40 AM EST Office Visit [facility] Nephrology, Bone & Mineral Metabolism [address], [address] [place] [address] Azael Mooney MD [address] [place] [address] documented as of this encounter [...] documented as of this encounter Care Teams Data Specialist Relationship Specialty Start Date End Date Rad Galvan MD [address] [place] [address] PCP - General 04/08/25 Uli Salcedo PA [address] [place] [address] Referring Physician 02/03/25 documented as of this encounter
--- OUTSIDE RECORDS SUMMARY | 2025-08-24 09:55 | XMS_ITS ---
Author Organization [facility] Address [address] [place] [address] Care Team Providers Care Endless Track Vehicle Supervisor Name Role Phone Rad Galvan MD Primary Care Provider + [facility] Status:Enrolled (Active) Start date:04/13/2025 Enrollment date:04/13/2025 Current support & services provided:Adherence- Cholesterol, Adherence- Hypertension Linked medications:Atorvastatin Calcium (Active), Valsartan (Active) Overview Atorvastatin and valsartan filled 03/26/2025 #30 day both have refills Case Team Name Relationship Phone Danielle Da Silva LPN(Responsible Staff) Licensed Mane cody Nurse Continued Care and Services Coordination
--- OUTSIDE RECORDS SUMMARY | 2025-08-24 09:55 | XMS_ITS | Encounter Summary ---
Author Organization [facility] Address [address] [place] [address] Care Team Providers Care Billing Administrator Name Role Phone Rad Galvan MD Primary Care Provider + Reason for Visit * Reason Comments Med Refill Encounter Details Date Type Department Care Team (Late st Contact Info) Description 08/01/[address] [facility] [address] [facility] [place] [address] Rad Galvan MD [address] [facility] [place] [address] Diabetic peripheral neuropathy associated with [...] Description 10/31/2025 11:00 AM EST Office Visit [facility] [address] [place] [address] Rad Galvan MD [address] [place] [address] documented as of this encounter Visit Diagnoses Diagnosis Diabetic peripheral neuropathy associated with type 2 diabetes mellitus documented in this encounter Additional Health Concerns Assessment Noted Time PHQ-2 Depression Total Score: 1 02/17/20 24 10:24 AM EDT documented as of this encounter Care Teams Billing Administrator Relationship Specialty Start Date End Date Rad Galvan MD [address] [place] [address] PCP - General Family Medicine 04/15/22 documented as of this encounter
--- OUTSIDE RECORDS SUMMARY | 2025-08-24 09:55 | XMS_ITS | Encounter Summary ---
Author Organization [facility] Address [address] [place] [address] Care Team Providers Care Operations Officer Afloat Name Role Phone Rad Galvan MD Primary [...] [facility] [address] [facility] [place] [address] Rad Galvan MD [address] [place] [address] documented as of this encounter Visit Diagnoses Not on filedocumented in this encounter Additional Health Concerns Assessment Noted Time PHQ-2 Depression Total Score: 1 02/17/20 24 10:24 AM EDT documented as of this encounter Care Teams Operations Officer Afloat Relationship Specialty Start Date End Date Rad Galvan MD [address] [place] [address] PCP - General Family Medicine 04/15/22 documented as of this encounter
--- OUTSIDE RECORDS SUMMARY | 2025-08-24 09:55 | XMS_ITS | Encounter Summary ---
Author Organization [facility] Address [address] [place] [id number] Care Team Providers Care Furniture Installer Name Role Phone Rad Galvan MD Primary Care Provider + Encounter Details Date Type Department Care Team (Late st Contact Info) Description 08/02/2025 Documentation [facility] [address] [facility] [address] [place] [phone] Stormy Wade PA [address] [facility] [address] [place] [address] Social History Tobacco Use Types Packs/Day Years [...] Visit [facility] [address] [place] [address] Rad Galvan MD [address] [place] [address] documented as of this encounter Visit Diagnoses Not on filedocumented in this encounter Additional Health Concerns Assessment Noted Time PHQ-2 Depression Total Score: 1 02/17/20 24 10:24 AM EDT documented as of this encounter Care Teams Furniture Installer Relationship Specialty Start Date End Date Rad Galvan MD [address] [place] [address] PCP - General Family Medicine 04/15/22 documented as of this encounter
--- OUTSIDE RECORDS SUMMARY | 2025-08-24 09:55 | XMS_ITS | Clinical Summary ---
Author Organization [facility] Address [address] [place] [address] Care Team Providers Care Sign Hanger Supervisor Name Role Phone Rad Galvan MD Primary Care Provider + Allergies Active Allergy Reactions Criticality Noted Date Comments Empagliflozin Itching Low 01/21/2025 Methylphenidate Itching Medium 02/18/2025 Metoclopramide Rash Low 04/15/2022 Medications [place]-3 Fatty Acids (fish oil) 1000 MG capsule [...] tablet 11 024 Active Comfort EZ Pen Comfrey 32G X 6 MM misc USE DIRECTED FOR insulin injections 100 each 5 025 Active dapagliflozin Propanediol (Farxiga) 10 MG tablet Take by mouth. From cardio Active valsartan (Diovan) 40 MG tabletIndication s:Chronic left ventricular systolic dysfunction Take 1 tablet by mouth 2 (Two) Times a Day. 025 Active Additional Information Patient taking differently:40 mg OralDaily, Reported on 08/17/2025 insulin aspart (NovoLOG FlexPen) 100 UNIT/ML solution pen-injector sc penIndications:T ype 2 diabetes mellitus with hyperglycemia, with long-term current use of insulin Inject 8 Units under the skin into the appropriate area as directed As Needed (glucose >400). 3 mL 025 Active metoprolol succinate XL (TOPROL-XL) 25 MG 24 hr tablet Take 0.5 tablets by mouth Daily. 025 Active Continuous Glucose Balance Truer (FreeStyle Simón 3 [place]) deviceIndication s:Type 2 diabetes mellitus with hypoglycemia [...] Every 15 (Fifteen) Days. 2 each 11 025 Active potassium chloride (KLOR-CON M20) 20 MEQ CR tabletIndication s:emt intermediate current use of diuretic TAKE ONE TABLET BY MOUTH TWICE DAILY 60 tablet 3 025 Active Semaglutide,0.25 or 0.5MG/DOS, (OZEMPIC) 2 MG/3ML solution pen-injectorIndi cations:Type 2 diabetes mellitus with hyperglycemia, with long-term current use of insulin Inject 0.25 mg under the skin into the appropriate area as directed 1 (One) Time Per Week. 025 Active insulin NPH-insulin regular (humuLIN 70/30,novoLIN 70/30) [...] EVERY DAY 60 tablet 2 025 Active rOPINIRole (REQUIP) 2 MG tabletIndication s:Restless leg syndrome TAKE ONE TABLET BY MOUTH EVERY NIGHT 30 tablet Active pantoprazole (PROTONIX) 40 MG EC tabletIndication s:Gastroesophage al reflux disease without esophagitis TAKE ONE TABLET BY MOUTH TWICE DAILY 60 tablet 025 Active atorvastatin (LIPITOR) 10 MG tabletIndication s:Type 2 diabetes mellitus with hyperglycemia TAKE ONE TABLET BY MOUTH EVERY DAY 30 tablet 025 Active Additional Information Patient taking differently: 40 mgOral Daily, Reported on 08/17/2025 allopurinol (ZYLOPRIM) 100 MG tablet TAKE ONE TABLET BY MOUTH EVERY DAY 60 tablet Active digoxin (LANOXIN) 125 MCG tabletIndication s:Longstanding persistent atrial fibrillation TAKE ONE TABLET BY MOUTH EVERY DAY 30 tablet Active PHENobarbital 32.4 MG tabletIndication s:Seizure disorder TAKE THREE TABLETS BY MOUTH EVERY DAY AT BEDTIME 90 tablet Active Additional Information Patient taking differently: 32.4 mg Oral Daily, 1.5 tablets qhs, Reported on 08/17/2025 spironolactone (ALDACTONE) 25 MG tablet TAKE ONE TABLET BY MOUTH EVERY DAY 90 tablet 1 Active Additional Information Patient taking differently: (No dose reported), Oral2 Times Daily, Reported on 08/17/2025 potassium chloride ER (K-TAB) 20 MEQ tablet controlled-relea se ER tabletIndication s:Hypokalemia Take 1 tablet by mouth Every 12 (Twelve) Hours. 6 tablet 5 Active gabapentin (NEURONTIN) 600 MG tabletIndication s:Diabetic peripheral neuropathy associated with type 2 diabetes mellitus TAKE ONE TABLET BY MOUTH TWICE DAILY MAY CAUSE DROWSINESS 60 tablet 3 Active DULoxetine (CYMBALTA) 30 MG capsule Take 1 capsule by mouth Daily. Active metOLazone (ZAROXOLYN) 5 MG tablet Take 1 tablet by mouth Every Other Day. Active prednisoLONE acetate (PRED FORTE) 1 % ophthalmic suspension 1 drop 4 (Four) Times a Day. Active rivaroxaban (XARELTO) 20 MG tablet Take 1 tablet by mouth Daily. 2024 Discontinued(* Therapy completed) gabapentin (NEURONTIN) 600 MG tabletIndication s:Diabetic peripheral neuropathy associated with type 2 diabetes mellitus Take 1 tablet by mouth 2 (Two) Times a Day. 60 tablet 2 025 2024 Discontinued isosorbide mononitrate (IMDUR) 30 MG 24 hr tablet Take 1 tablet by mouth Daily. 2024 Discontinued(* Therapy completed) potassium chloride ER (K-TAB) 20 MEQ tablet controlled-relea se ER tablet TAKE ONE TABLET BY MOUTH TWICE DAILY 120 tablet 5 025 2024 Discontinued(R eorder) Zoster Vac Recomb Adjuvanted 50 MCG/0.5ML reconstituted suspensionIndica tions:Need for vaccination Inject 0.5 mL into the appropriate muscle as directed by prescriber 1 (One) Time for 1 dose. 1 each 025 2024 Active Problems Problem Noted Date [...] & Plan (08/01/2025 11:01 AM EDT): {Diabetes (Optional):[id number]} Assessment & Plan (01/20/2025 11:47 AM EST): [...] evening. She will be referred back to [facility] podiatry for topical interventions that may [...] & Plan (08/01/2025 11:01 AM EDT): {CHF (Optional):98695} Seizure disorder 04/15/2022 Assessment & Plan (08/01/2025 11:01 AM EDT): Encounters Date Type Department Care Team Description 08/17/2025 2:00 PM EDT Office Visit [facility] [address] [place] [address] Desi Beckford, MEAGAN Hospital discharge follow-up (Primary Dx); Stage 4 chronic kidney disease; Pneumonia of right lung due to infectious organism, unspecified part of lung; Gastrointestinal hemorrhage, unspecified gastrointestinal hemorrhage type 08/17/2025 Travel 08/15/2025 External PBMM Data [facility] CALL CENTER [address] [place] [place] [address] Pharmacy, Payor Data 08/02/2025 Telephone [facility] [address] [place] [address] Rad Galvan MD PHARMACY CALLS 08/02/2025 Documentation [facility] [address] [facility] [address] [address] Stormy Wade PA 08/01/2025 10:15 AM EDT Office Visit [facility] [address] [place] [address] Rad Galvan MD Type 2 diabetes mellitus [...] use of insulin 08/01/2025 Refill [facility] [address] [place] [address] Rad Galvan MD Diabetic peripheral neuropathy associated with type 2 diabetes mellitus 08/01/2025 Travel 07/29/2025 Telephone [facility] [address] [place] [address] Rad Galvan MD ORDERS 07/18/2025 Telephone [facility] [address] [place] [address] Rad Galvan MD PHARMACY CALLS 07/18/2025 Telephone [facility] [address] [place] [address] Rad Galvan MD 07/15/2025 Telephone [facility] [address] [place] [address] Rad Galvan MD CALLBACK REQUEST 07/15/2025 Telephone [facility] [address] [place] [address] Rad Galvan MD New Med Request 07/13/2025 10:53 AM EDT - 07/13/2025 11:59 PM EDT Hospital Encounter [facility] [address] [place] [address] Sidney Barraza MD Discharge Disposition: Home or Self Care 07/13/2025 9:00 AM EDT Office Visit [facility] [address] [phone] Sidney Barraza MD Chronic HFrEF (heart failure with reduced ejection fraction) (Primary Dx); Longstanding persistent atrial fibrillation 07/13/2025 Travel 07/07/2025 11:15 AM EDT Office Visit [facility] [address] [place] [address] Rad Galvan MD Left ventricular systolic dysfunction, chronic (Primary Dx); Viral cardiomyopathy; Nocturnal headaches; Obstructive sleep apnea 07/07/2025 Travel 06/30/2025 Travel 06/30/2025 Refill [facility] [address] [place] [address] Rad Galvan MD Longstanding persistent atrial fibrillation; Seizure disorder 06/28/2025 Telephone [facility] [address] [place] [address] Rad Galvan MD PAPERWORK REQUEST; PAPERWORK REQUEST - SEVERAL CALLS 06/27/2025 Telephone [facility] [address] [place] [address] Rad Galvan MD PAPERWORK REQUEST 06/21/2025 Telephone [facility] [address] [place] [address] Rad Galvan MD FOLLOW UP ON FAX 06/02/2025 Refill [facility] [address] [place] [address] Rad Galvan MD Longstanding persistent atrial [...] Diabetes Brother Momo Jimenez Hyperlipidemia Daughter Yennifer Monteros Alcohol abuse Father Jakob Fish Hyperlipidemia Father [...] Mass Index 38.73 08/17/2025 2:06 PM EDT Plan of Treatment Upcoming Encounters Date Type Department Care Team (Late st Contact Info) Description 10/31/2025 11:00 AM EST Office Visit [facility] [address] [facility] [place] [address] Rad Galvan MD [address] [place] [address] Health Maintenance Due Date Last Done [...] , 09/06/2022, Additional history exists COVID-19 Vaccine (2024-2 6 season) 2025 09/06/2022, 11/28/2021, 03/06/2021, Additional [...] Priority Date/Time Associated Diagnosis Comments SCANNED EKG 08/17/2025 SCANNED - LABS 08/17/2025 SCANNED - LABS 08/17/2025 SCANNED - LABS 08/17/2025 SCANNED - LABS 08/17/2025 SCANNED - LABS 08/17/2025 SCANNED - LABS 08/17/2025 SCANNED - IMAGING 08/17/2025 SCANNED - IMAGING 08/17/2025 SCANNED EKG 08/07/2025 SCANNED EKG 08/07/2025 SCANNED [...] to Health Maintenance Results * ECG Scan (08/17/2025) Only the most recent of7 resultswithin the time period is included. us Rad Galvan MD ECG ORDERABLES Final Re sult * IMAGING SCANNED (08/17/2025) Only the most recent of13 resultswithin the time period is included. Anatomical Region Laterality Modality Radiographic Gracie ging Rad Galvan MD IMG DIAGNOSTIC IMAGING O RDERABLES Final Result * LABS SCANNED (08/17/2025) Only the most recent of14 resultswithin the time period is included. Rad Galvan MD LAB BLOOD ORDERABLES Fin al Result * (ABNORMAL) POC Glycosylated Hemoglobin (Hb A1C) (08/01/2025 10:40 AM EDT) Hemoglobin A1C 7.2(A) 4.5 - 5.7 % [facility] Lot Number [id number] [facility] Expiration Date 03/09/2027 [facility] Blood 08/01/2025 10:4 0 AM EDT Rad Galvan MD POINT OF CARE TEST ORDER RICH Final Result [facility]
[address] [place] [address], * FOOT EXAM SCANNED (07/26/2025) Rad Galvan [...] MD 07/13/2025 4:13 PM EDT Workstation ID: [id number] Narrative 07/13/2025 4:13 PM EDT XR CHEST [...] MD 07/13/2025 4:13 PM EDT Workstation ID: [id number] Sidney Barraza MD IMG DIAGNOSTIC IMAGING ORDER [...] Result * Overnight Sleep Oximetry Study (07/11/2025) Rad Galvan MD RESPIRATORY CARE ORDERAB LES [...] (02/18/2023) Anatomical Region Laterality Modality Other Result [facility] Rad Galvan MD CHART REVIEW TABS Fin al Result * SCANNED - DEXA (02/18/2023) Anatomical Region Laterality Modality Other Result [facility] Rad Galvan MD CHART REVIEW TABS Fin al Result * (ABNORMAL) Cologuard - Stool, Per Rectum (02/15/2023 4:07 PM EDT) Pathologist [facility] Cologuard Positive( A) Negative 02/25/2023 5:18 PM EDT [facility] (CLIA #:[id number]) Comment: POSITIVE TEST RESULT. A positive Cologuard [...] (Kathleen Roberts al, N Engl J Med 2014;370(14):5723-8030.) Cologuard may produce a false negative or false positive result (no colorectal cancer or precancerous polyp present at colonoscopy follow up). A negative Cologuard test result does not guarantee the absence of CRC or advanced adenoma (pre-cancer). The current Cologuard screening interval is every 3 years. ([place] [employer] and U.S. Multi-Society Task Force). Cologuard performance data in a 10,000 patient pivotal study using colonoscopy as the reference method can be accessed at the following location: www.[employer]/results. Additional description of the Cologuard test process, warnings and precautions can be found at www.[employer]. Stool specimen (specimen) Specimen from rectum / Unknown 02/15/2023 4:07 PM EDT 02/18/2023 3:05 PM EDT Rad Galvan MD BODY FLUIDS AND STOOLS O RDERABLES Final Result [facility] (CLIA #:[id number]) [address] [place] [address], from Last 3 Months or Most Recently Relevant to Health Maintenance Insurance [facility] [employer] PPO Care Teams Sign Hanger Supervisor Relationship Specialty Start Date End Date Rad Galvan MD [address] [place] [address] PCP - General Family Medicine 04/15/22
--- OUTSIDE RECORDS SUMMARY | 2025-08-24 09:55 | XMS_ITS | Encounter Summary ---
Author Organization [facility] Address [address] [place] [address] Care Team Providers Care Lead Software Qa Engineer Name Role Phone Rad Galvan MD Primary Care Provider + Encounter Details Date Type Department Care Team (Late st Contact Info) Description 08/15/2025 External PBMM Data [facility] CALL CENTER [address] [place] [address] [place] [address] Pharmacy, Payor Data Social History Tobacco Use [...] [facility] [address] [place] [address] Rad Galvan MD [address] [place] [address] documented as of this encounter Visit Diagnoses Not on filedocumented in this encounter Additional Health Concerns Assessment Noted Time PHQ-2 Depression Total Score: 1 02/17/20 24 10:24 AM EDT documented as of this encounter Care Teams Lead Software Qa Engineer Relationship Specialty Start Date End Date Rad Galvan MD [address] [place] [address] PCP - General Family Medicine 04/15/22 documented as of this encounter
--- OUTSIDE RECORDS SUMMARY | 2025-08-24 09:55 | XMS_ITS | Encounter Summary ---
Author Organization [facility] Address [address] [place] [address] Care Team Providers Care Yard Supervisor Name Role Phone Rad Galvan MD Primary Care Provider + Reason for Visit * Reason Onset Date Comments ORDERS 07/29/2025 Encounter Details Date Type Department Care Team (Late st Contact Info) Description 07/29/2025 Telephone [facility] [address] [place] [address] Rad Galvan MD [address] [place] [address] ORDERS Social History Tobacco Use [...] Edwards Relationship: Self Best call back number: [phone] What is the best time to reach you: ANYTIME Who are you requesting to speak with (clinical staff, provider, specific staff member): CLINICAL STAFF What was the call regarding: PATIENT IS CALLING TO SEE IF SHE CAN HAVE LABS DRAWN FOR HER UPCOMING WELLNESS VISIT, INCLUDING THE A1C, BE SENT TO [facility] Is it okay if the provider responds through MyChart: YES documented in this encounter Plan of Treatment Upcoming Encounters Date Type Department Care Team (Late st Contact Info) Description 10/31/2025 11:00 AM EST Office Visit [facility] [address] [place] [address] Rad Galvan MD [address] [place] [address] documented as of this encounter Visit Diagnoses Not on filedocumented in this encounter Additional Health Concerns Assessment Noted Time PHQ-2 Depression Total Score: 1 02/17/20 24 10:24 AM EDT documented as of this encounter Care Teams Yard Supervisor Relationship Specialty Start Date End Date Rad Galvan MD [address] [place] [address] PCP - General Family Medicine 04/15/22 documented as of this encounter
--- OUTSIDE RECORDS SUMMARY | 2025-08-24 09:55 | XMS_ITS | Encounter Summary ---
Author Organization [facility] Address [address] [place] [address] Care Team Providers Care Manager Portable Name Role Phone Rad Glavan MD Primary Care Provider + Reason for Visit * Reason Onset Date Comments PHARMACY CALLS 08/02/2025 Encounter Details Date Type Department Care Team (Late st Contact Info) Description 08/02/2025 Telephone [facility] [address] [place] [address] Rad Galvan MD [address] [place] [address] PHARMACY CALLS Social History Tobacco [...] MD - 08/02/2025 1:35 PM EDT Patient's paint department supervisor will have to contacted. * Telephone Encounter - Marlen Mittal RegSched Rep - 08/02/2025 9:26 AM EDT Pharmacy Name: [facility] [place] - [address] - [phone] Pharmacy patient access representative name: ROSALBA Pharmacy patient access representative phone number:[phone] What medication are you calling in regards to: SPIRONOLACTONE What question does the pharmacy have: THE PATIENT TOLD THE PHARMACY THAT HER JUVENILE PROBATION OFFICER INCREASEDHER DOSE FROM ONE 25 MG TABLET TO TWO 25MG TABLETS THE PHARMACY DID NOT GET A NEW PRESCRIPTION AND THE PATIENT TOLD THE PHARMACY TO CALL DOCTOR MARYCARMEN TO ASK FOR THAT documented in this encounter Plan of Treatment Upcoming Encounters Date Type Department Care Team (Late st Contact Info) Description 10/31/2025 11:00 AM EST Office Visit [facility] [address] [place] [address] Rad Galvan MD [address] [place] [address] documented as of this encounter Visit Diagnoses Not on filedocumented in this encounter Additional Health Concerns Assessment Noted Time PHQ-2 Depression Total Score: 1 02/17/20 24 10:24 AM EDT documented as of this encounter Care Teams Manager Portable Relationship Specialty Start Date End Date Rad Galvan MD [address] [place] [address] PCP - General Family Medicine 04/15/22 documented as of this encounter
--- OUTSIDE RECORDS SUMMARY | 2025-08-24 09:56 | XMS_ITS | Encounter Summary ---
Author Organization [facility] Address [address] [id number] Care Team Providers Care Industrial Sociologist Name Role Phone Uli Salcedo Unavailable [phone] Rad Galvan MD Primary Care Provider [phone] Reason for Visit * Reason Onset Date Comments Med Refill 08/04/2025 Encounter Details Date Type Department Care Team (Late st Contact Info) Description 08/04/2025 Refill [facility] [place] [address] [facility] [place] [address] Yaritza Johnson, RN [facility] [address] [place] [address] Social History Tobacco Use Types Packs/Day Years [...] PM EDT Appointment Cardiac Imaging [address] [place] [address] 09/16/2025 4:00 PM EDT Office Visit [facility] [place] [address] [facility] [place] [address] Elvin Schuler MD [address] [place] [address] 10/17/2025 11:40 AM EST Office Visit [facility] Nephrology, Bone & Mineral Metabolism [address] [facility] [address] [facility], [address] [place] [address] Azael Mooney MD [address] [place] [address] documented as of this encounter [...] documented as of this encounter Care Teams Industrial Sociologist Relationship Specialty Start Date End Date Rad Galvan MD [address] [place] [address] PCP - General 04/08/25 Uli Salcedo PA [address] [place] [address] Referring Physician 02/03/25 documented as of this encounter
--- OUTSIDE RECORDS SUMMARY | 2025-08-24 09:56 | XMS_ITS | Encounter Summary ---
Author Organization [facility] Address [address] [id number] Care Team Providers Care Job Coaching Name Role Phone Rad Galvan MD Primary Care Provider + Reason for Visit * Reason Comments Med Refill Encounter Details Date Type Department Care Team (Late st Contact Info) Description 06/30/2025 Refill [facility] [address] [facility] [place] [address] Rad Galvan MD [address] [facility] [place] [address] Longstanding persistent atrial fibrillation; Seizure [...] Description 10/31/2025 11:00 AM EST Office Visit [facility] [address] [facility] [place] [address] Rad Galvan MD [address] [place] [address] documented as of this encounter Visit Diagnoses Diagnosis Longstanding persistent atrial fibrillation Seizure disorder Unspecified epilepsy without mention of intractable epilepsy documented in this encounter Additional Health Concerns Assessment Noted Time PHQ-2 Depression Total Score: 1 02/17/20 24 10:24 AM EDT documented as of this encounter Care Teams Job Coaching Relationship Specialty Start Date End Date Rad Galvan MD [address] [place] [address] PCP - General Family Medicine 04/15/22 documented as of this encounter
--- OUTSIDE RECORDS SUMMARY | 2025-08-24 09:56 | XMS_ITS | Encounter Summary ---
Author Organization [facility] Address [address] [place] [address] Care Team Providers Care Grinder Gear Name Role Phone Uli Salcedo Unavailable [phone] Rad Galvan MD Primary Care Provider [phone] Reason for Referral * Imaging (Routine) - Pending Review Specialty Diagnoses / Procedures Referred By Contac t Referred To Contact Cardiology Diagnoses Chronic combined systolic and diastolic congestive heart failure Procedures Echo, Adult Transthoracic Complete Elvin Schuler MD [address] [place] [address] Phone: tel: fax: Referral ID Status Reason Start Date Expiration Date Visits Requested Visits Authorized [id number] Pending Review Perform Procedure 07/27/2025 01/26/2027 1 1 Encounter Details Date Type Department Care Team (Late st Contact Info) Description 07/27/2025 Telephone [facility] [place] [address] [facility] [place] [address] Yaritza Johnson, RN [facility] [address] [place] [address] Social History Tobacco Use Types Packs/Day Years [...] PM EDT Appointment Cardiac Imaging [address] [place] [address] 09/16/2025 4:00 PM EDT Office Visit [facility] [place] [facility] [address] [facility] [place] [address] Elvin Schuler MD [address] [place] [address] 10/17/2025 11:40 AM EST Office Visit [facility] Nephrology, Bone & Mineral Metabolism [address] [facility], [address] [place] [address] Azael Mooney MD [address] [place] [address] Scheduled Orders Name Type Priority [...] documented as of this encounter Care Teams Grinder Gear Relationship Specialty Start Date End Date Rad Galvan MD [address] [place] [address] PCP - General 04/08/25 Uli Salcedo PA [address] [place] [address] Referring Physician 02/03/25 documented as of this encounter
--- OUTSIDE RECORDS SUMMARY | 2025-08-24 09:56 | XMS_ITS | Encounter Summary ---
Author Organization Healthcare Address [address] [place] [address] Care Team Providers Care Foam Machine Operator Name Role Phone Andrew Lee MD Primary Care Provider [phone] Uli Salcedo Unavailable [phone] Rad Galvan MD Primary Care Provider [phone] Encounter Details Date Type Department Care Team (Late st Contact Info) Description 01/11/2025 Orders Only External Location [address] [place] [address] Uli Salcedo PA [address] [place], [place] [id number] Social History Tobacco Use Types Packs/Day Years [...] PM EDT Appointment Cardiac Imaging [address] [place] [address] 09/16/2025 4:00 PM EDT Office Visit [facility] [address] [facility]. [address] [place] [address] Elvin Schuler MD [address] [place] [address] 10/17/2025 11:40 AM EST Office Visit [facility] Nephrology, Bone & Mineral Metabolism [address] [facility], [address] [place] [address] Azael Mooney MD [address] [place] [address] documented as of this encounter [...] on filedocumented in this encounter Care Teams Foam Machine Operator Relationship Specialty Start Date End Date Andrew Lee MD [address] [place] [address] [address] [place] [address] PCP - General 04/06/21 04/07/25 Rad Galvan MD [address] [place] [address] PCP - General 04/08/25 Uli Salcedo PA [address] [place] [address] Referring Physician 02/03/25 documented as of this encounter
--- OUTSIDE RECORDS SUMMARY | 2025-08-24 09:56 | XMS_ITS | Encounter Summary ---
Author Organization [facility] Address [address] [place] [address] Care Team Providers Care Hand Candy Dipper Name Role Phone Rad Galvan MD Primary Care Provider + Reason for Visit * Reason Onset Date Comments PHARMACY CALLS 07/18/2025 Encounter Details Date Type Department Care Team (Late st Contact Info) Description 07/18/2025 Telephone [facility] [address] [place] [address] Rad Galvan MD [address] [place] [address] PHARMACY CALLS Social History Tobacco [...] - 07/18/2025 2:16 PM EDT Pharmacy Name: [facility] [place] - [address] - [phone] - [phone] Pharmacy senior patient account representative name: [facility] Pharmacy senior patient account representative phone number: [phone] What medication are you calling in regards [...] [facility] [address] [place] [address] Rad Galvan MD [address] [place] [address] documented as of this encounter Visit Diagnoses Not on filedocumented in this encounter Additional Health Concerns Assessment Noted Time PHQ-2 Depression Total Score: 1 02/17/20 24 10:24 AM EDT documented as of this encounter Care Teams Hand Candy Dipper Relationship Specialty Start Date End Date Rad Galvan MD [address] [place] [address] PCP - General Family Medicine 04/15/22 documented as of this encounter
--- OUTSIDE RECORDS SUMMARY | 2025-08-24 09:56 | XMS_ITS | Encounter Summary ---
Author Organization [facility] Address [address] [place] [address] Care Team Providers Care Technical Writer Name Role Phone Rad Galvan MD Primary [...] AM EST Office Visit [facility] [address] [facility] [place] [address] Rad Galvan MD [address] [facility] [address] [place] [address] documented as of this encounter Visit Diagnoses Not on filedocumented in this encounter Additional Health Concerns Assessment Noted Time PHQ-2 Depression Total Score: 1 02/17/20 24 10:24 AM EDT documented as of this encounter Care Teams Technical Writer Relationship Specialty Start Date End Date Rad Galvan MD [address] [place] [address] PCP - General Family Medicine 04/15/22 documented as of this encounter
--- OUTSIDE RECORDS SUMMARY | 2025-08-24 09:56 | XMS_ITS | Encounter Summary ---
Author Organization [facility] Address [address] [place] [address] Care Team Providers Care Science Education Professor Name Role Phone Rad Galvan MD Primary Care Provider + Encounter Details Date Type Department Care Team (Latest Contact Info) Description 08/17/2025 Travel Social History Tobacco Use Types Packs/Day Years Used Date Smoking Tobacco: Former Cigarettes 0.1 2 0 11/24/1980 - 1982 Smokeless Tobacco: Never Comments:In my Twenty Alcohol Use Standard Drinks/Week [...] Description 10/31/2025 11:00 AM EST Office Visit [facility]ILY [facility]IC[facility] [address] [facility] [place] [place] [address] Rad Galvan MD [address] [place] [address] documented as of this encounter Visit Diagnoses Not on filedocumented in this encounter Additional Health Concerns Assessment Noted Time PHQ-2 Depression Total Score: 1 02/17/20 24 10:24 AM EDT documented as of this encounter Care Teams Science Education Professor Relationship Specialty Start Date End Date Rad Galvan MD [address] [place] [address] PCP - General Family Medicine 04/15/22 documented as of this encounter
--- OUTSIDE RECORDS SUMMARY | 2025-08-24 09:56 | XMS_ITS | Encounter Summary ---
Author Organization [facility] Address [address] [place] [address] Care Team Providers Care Bulldogger Name Role Phone Rad Galvan MD Primary [...] 11:00 AM EST Office Visit [facility] 210 [facility] [place] [address] Rad Galvan MD 210 [facility] [place] [address] documented as of this encounter Visit Diagnoses Not on filedocumented in this encounter Additional Health Concerns Assessment Noted Time PHQ-2 Depression Total Score: 1 02/17/20 24 10:24 AM EDT documented as of this encounter Care Teams Bulldogger Relationship Specialty Start Date End Date Rad Galvan MD [address] [place] [address] PCP - General Family Medicine 04/15/22 documented as of this encounter
--- OUTSIDE RECORDS SUMMARY | 2025-08-24 09:56 | XMS_ITS | Encounter Summary ---
Author Organization [facility] Address [address] [place] [address] Care Team Providers Care Plastic Finisher Name Role Phone Rad Galvan MD Primary Care Provider + Reason for Visit * Reason Onset Date Comments New Med Request 07/15/2025 Encounter Details Date Type Department Care Team (Late st Contact Info) Description 07/15/2025 Telephone [facility] FAM[facility] MEDICINE [address] [place] [address] Rad Galvan MD [address] [place] [address] New Med Request Social History [...] Edwards Relationship: Self Best call back number: [phone] What medication are you requesting: ANXIETY MEDICATION 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 How long have you been experiencing symptoms: INFORMED LAST WEEK Have you had these symptoms before: [] Yes [x] No Have you been treated for these symptoms before: [] Yes [x] No If a prescription is needed, what is your preferred pharmacy and phone number: [facility] [address] - [phone] - [phone] FX Additional notes: PATIENT WOULD LIKE A CALL BACK FROM PCP documented in this encounter Plan of Treatment Upcoming Encounters Date Type Department Care Team (Late st Contact Info) Description 10/31/2025 11:00 AM EST Office Visit [facility]INE [address] [place] [address] Rad Galvan MD [address] [place] [address] documented as of this encounter Visit Diagnoses Not on filedocumented in this encounter Additional Health Concerns Assessment Noted Time PHQ-2 Depression Total Score: 1 02/17/20 24 10:24 AM EDT documented as of this encounter Care Teams Plastic Finisher Relationship Specialty Start Date End Date Rad Galvan MD [address] [place] [address] PCP - General Family Medicine 04/15/22 documented as of this encounter
--- OUTSIDE RECORDS SUMMARY | 2025-08-24 09:56 | XMS_ITS | Encounter Summary ---
Author Organization Healthcare Address [address] [place] [address] Care Team Providers Care Tile Inspector Name Role Phone Uli Salcedo Unavailable [phone] Rad Galvan MD Primary Care Provider [...] EDT Appointment Cardiac Imaging [address] [place] [address] 09/16/2025 4:00 PM EDT Office Visit [facility] [address] [place] [address] Elvin Schuler MD [address] [place] [address] 10/17/2025 11:40 AM EST Office Visit [facility] Nephrology, Bone & Mineral Metabolism [address] [facility], [address] [place] [address] Azael Mooney MD [address] [place] [address] documented as of this encounter [...] documented as of this encounter Care Teams Tile Inspector Relationship Specialty Start Date End Date Rad Galvan MD [address] [place] [address] PCP - General 04/08/25 Uli Salcedo PA [address] [place] [address] Referring Physician 02/03/25 documented as of this encounter
--- OUTSIDE RECORDS SUMMARY | 2025-08-24 09:56 | XMS_ITS | Encounter Summary ---
Author Organization [facility] Address [address] [place] [address] Care Team Providers Care Arc Welding Machine Operator Name Role Phone Rad Galvan MD Primary Care Provider + Reason for Visit * Reason Onset Date Comments PAPERWORK REQUEST 06/28/2025 PAPERWORK REQUEST - SEVERAL CALLS 06/28/2025 Encounter Details Date Type Department Care Team (Late st Contact Info) Description 06/28/2025 Telephone [facility] MEDICINE [address] [place] [address] Rad Galvan MD [address] [place] [address] PAPERWORK REQUEST; PAPERWORK REQUEST - [...] 07/04/2025 1:22 PM EDT Caller: SARAHY - [employer] Relationship: Other Best call back number: [phone] What form or medical record are you requesting: DR. COX WITH SIGNATURE. THEY REC'D COPIES UNSIGNED. THEY HAVE CALLED AND SENT FAX REGARDING Who is requesting this form or medical record from you: [employer] How would you like to receive the form or medical records (pick-up, mail, fax): FAX If fax, what is the fax number: [phone] If mail, what is the address: If pick-up, provide patient with address and location details Timeframe paperwork needed: MAREK * Telephone Encounter - Gabi Lee RegSched Rep - 06/28/2025 10:43 AM EDT Caller: ESTEVAN Relationship: Other [employer] Best call back number: [phone] OPTION 2 What form or medical record are you requesting: CLINICAL NOTES FROM [id number] Who is requesting this form or medical record from you: [employer] How would you like to receive the form or medical records (pick-up, mail, fax): If fax, what is the fax number: [phone] Timeframe paperwork needed: MAREK Additional notes: THEY [...] [facility] [address] [place] [address] Rad Galvan MD [address] [place] [address] documented as of this encounter Visit Diagnoses Not on filedocumented in this encounter Additional Health Concerns Assessment Noted Time PHQ-2 Depression Total Score: 1 02/17/20 24 10:24 AM EDT documented as of this encounter Care Teams Arc Welding Machine Operator Relationship Specialty Start Date End Date Rad Galvan MD [address] [place] [address] PCP - General Family Medicine 04/15/22 documented as of this encounter
--- OUTSIDE RECORDS SUMMARY | 2025-08-24 09:56 | XMS_ITS | Encounter Summary ---
Author Organization [facility] Address [address] [place] [address] Care Team Providers Care Manual Arts Teacher Name Role Phone Rad Galvan MD Primary Care Provider + Reason for Visit * Reason Onset Date Comments CALLBACK REQUEST 07/15/2025 Encounter Details Date Type Department Care Team (Late st Contact Info) Description 07/15/2025 Telephone [facility] FAMILY MEDICINE [address] [place] [address] Rad Galvan MD 210 [place] [address] CALLBACK REQUEST Social History Tobacco [...] [facility] Pharm[facility]. Also spoke w/ Yefri at [employer], he said, disregard this phone call they have all the information they need at this time. * Telephone Encounter - Rose Marie Chamberlain MA - 07/15/2025 3:47 PM EDT Pt is also requesting an order for an automated BP cuff be sent in to [facility]. She talked to [employer] today and they told her, that is all you had to do and they would pay for it. * Telephone Encounter - Yarely Painter RegSched Rep - 07/15/2025 2:14 PM EDT Caller: CANDELARIA - [employer] Relationship: Best call back number: [phone] What is the best time to reach [...] CENTER FAMILY MEDICINE [address] [place] [place] [address] Rad Galvan MD [address] [place] [address] documented as of this encounter Visit Diagnoses Not on filedocumented in this encounter Additional Health Concerns Assessment Noted Time PHQ-2 Depression Total Score: 1 02/17/20 24 10:24 AM EDT documented as of this encounter Care Teams Manual Arts Teacher Relationship Specialty Start Date End Date Rad Galvan MD [address] [place] [address] PCP - General Family Medicine 04/15/22 documented as of this encounter
--- OUTSIDE RECORDS SUMMARY | 2025-08-24 09:56 | XMS_ITS | Encounter Summary ---
Author Organization [facility] Address [address] [place] [address] Care Team Providers Care Social Studies Department Chair Name Role Phone Uli Salcedo Unavailable [phone] Rad Galvan MD Primary Care Provider [phone] Reason for Visit * Reason Onset Date Comments HCN - Patient Message 08/09/2025 Encounter Details Date Type Department Care Team (Late st Contact Info) Description 08/09/2025 Telephone [facility] [address] [facility] [place] [facility]. [address] [place] [address] Elvin Schuler MD [address] [place] [address] HCN - Patient Message Social [...] 9:16 AM EDT Contacted Ms alcantar. Ms Jerry reported she was currently admitted to [facility]. She is aware to contact me once d/c and will request d/c summary. * Telephone Encounter - Mary Ann Pugh - 08/09/2025 8:47 AM EDT Clinical Concern/Question Reason for Call: pt would like to speak to yaritza. She is currently in admitted to the hospital and would like to speak to her about her admission. Best contact number: [phone] (mobile) Optimal time of day to reach caller: ANYTIME Additional comments/information from caller: None Note: Please do not reply to this message. Follow-up communication and further actions as a result of this message need to be communicated with the patient directly, if the patient is not active onMyChart. If the patient is active on MyChart, they will receive notification of the communication/outcome via [employer]. documented in this encounter Plan of Treatment Upcoming Encounters Date Type Department Care Team (Late st Contact Info) Description 09/16/2025 2:30 PM EDT Appointment Cardiac Imaging [address] [place] [address] 09/16/2025 4:00 PM EDT Office Visit [facility] [address] [facility] [place] [facility]. [address] [place] [address] Elvin Schuler MD [address] [place] [address] 10/17/2025 11:40 AM EST Office Visit [facility] Nephrology, Bone & Mineral Metabolism [address] [facility], [address] [place] [address] Azael Mooney MD [address] [place] [address] documented as of this encounter [...] documented as of this encounter Care Teams Social Studies Department Chair Relationship Specialty Start Date End Date Rad Galvan MD [address] [place] [address] PCP - General 04/08/25 Uli Salcedo PA [address] [place] [address] Referring Physician 02/03/25 documented as of this encounter
--- OUTSIDE RECORDS SUMMARY | 2025-08-24 09:56 | XMS_ITS | Encounter Summary ---
Author Organization Healthcare Address [address] [place] [address] Care Team Providers Care Chainsaw Mechanic Name Role Phone Uli Salcedo Unavailable [phone] Rad Galvan MD Primary Care Provider [phone] Encounter Details Date Type Department Care Team [...] EDT Appointment Cardiac Imaging [address] [place] [address] 09/16/2025 4:00 PM EDT Office Visit [facility] [place] [facility] [address] [place] [address] Elvin Schuler MD [address] [place] [address] 10/17/2025 11:40 AM EST Office Visit [facility] Nephrology, Bone & Mineral Metabolism [address] [facility], [address] [place] [address] Azael Mooney MD [address] [place] [address] documented as of this encounter [...] documented as of this encounter Care Teams Chainsaw Mechanic Relationship Specialty Start Date End Date Rad Galvan MD [address] [place] [address] PCP - General 04/08/25 Uli Salcedo PA [address] [place] [address] Referring Physician 02/03/25 documented as of this encounter
--- OUTSIDE RECORDS SUMMARY | 2025-08-24 09:56 | XMS_ITS | Encounter Summary ---
Author Organization [facility] Address [address] [place] [address] Care Team Providers Care Rack Room Worker Name Role Phone Uli Salcedo Unavailable [phone] Rad Galvan MD Primary Care Provider Encounter Details Date Type Department Care Team (Late st Contact Info) Description 08/09/2025 Orders Only [facility] [place] [facility] [address] [place] [address] Linda Garcia, RN CH-ADULT ECMO [...] PM EDT Appointment Cardiac Imaging [address] [place] [address] 09/16/2025 4:00 PM EDT Office Visit [facility] [place] [facility] [address] [place] [address] Elvin Schuler MD [address] [place] [address] 10/17/2025 11:40 AM EST Office Visit [facility] Nephrology, Bone & Mineral Metabolism [address] [facility], [address] [place] [address] Azael Mooney MD [address] [place] [address] Scheduled Orders Name Type Priority [...] documented as of this encounter Care Teams Rack Room Worker Relationship Specialty Start Date End Date Rad Galvan MD [address] [place] [address] PCP - General 04/08/25 Uli Salcedo PA [address] [place] [address] Referring Physician 02/03/25 documented as of this encounter
--- OUTSIDE RECORDS SUMMARY | 2025-08-24 09:56 | XMS_ITS | Encounter Summary ---
Author Organization [facility] Address [address] [place] [address] Care Team Providers Care Media Law Faculty Member Name Role Phone Rad Galvan MD Primary Care Provider + Reason for Visit * Reason Onset Date Comments PAPERWORK REQUEST 06/27/2025 Encounter Details Date Type Department Care Team (Late st Contact Info) Description 06/27/2025 Telephone [facility] FAMILY MEDICINE [address] [place] [address] Rad Galvan MD [address] [place] [address] PAPERWORK REQUEST Social History Tobacco [...] it's ok to fax notes. Faxed via [employer]. * Telephone Encounter - Yarely Painter RegSched Rep - 06/27/2025 11:41 AM EDT Caller: B[place]E [place] - [employer] Relationship: Best call back number: [phone] EXTENTION 2 What form or medical record are you requesting: CLINICAL NOTES Who is requesting this form or medical record from you: [employer] How would you like to receive the form or medical records (pick-up, mail, fax): FAX If fax, what is the fax number: [phone] Timeframe paperwork needed: MAREK Additional notes: PATIENTS [...] Description 10/31/2025 11:00 AM EST Office Visit [facility] MEDICINE [address] [place] [address] Rad Galvan MD [address] [place] [address] documented as of this encounter Visit Diagnoses Not on filedocumented in this encounter Additional Health Concerns Assessment Noted Time PHQ-2 Depression Total Score: 1 02/17/20 24 10:24 AM EDT documented as of this encounter Care Teams Media Law Faculty Member Relationship Specialty Start Date End Date aRd Galvan MD [address] [place] [address] PCP - General Family Medicine 04/15/22 documented as of this encounter
--- OUTSIDE RECORDS SUMMARY | 2025-08-24 09:56 | XMS_ITS | Encounter Summary ---
Author Organization [facility] Address [address] [place] [address] Care Team Providers Care Solar Sales Associate Name Role Phone Uli Salcedo Unavailable [phone] Rad Galvan MD Primary Care Provider [phone] Reason for Visit * Reason Onset Date Comments HCN - Patient Message 06/17/2025 Encounter Details Date Type Department Care Team (Late st Contact Info) Description 06/17/2025 Telephone [facility] [place] [facility] [address] [facility]. [address] [place] [address] Elvin Schuler MD [address] [place] [address] HCN - Patient Message Social [...] to contact our office once discharged from [facility] and we can request records. Voiced understanding. Has appt scheduled with Dr Ortiz on 07/08 at 145 and Ms alcantar is aware * Telephone Encounter - Mami Aviles - 06/27/2025 2:08 PM EDT Status Update Call #1 1st call regarding the status of the initial request. Best contact number: [phone] (home) Optimal time of day to reach caller: ANYTIME Additional comments/information from caller: Pt called to let Neptali know that she was admitted at [facility]. No callback needed. Note: Please do not reply to this message. Follow-up communication and further actions as a result of this message need to be communicated with the patient directly, if the patient is not active onMyChart. If the patient is active on MyChart, they will receive notification of the communication/outcome via [employer]. * Telephone Encounter - Neptali Johnson RN [...] corbin to request lab results from yesterday. [place] stated they would fax. PAD reading 25 [...] optimal time of day to reach caller: [phone] Note: Please do not reply to this message. Follow-up communication and further actions as a result of this message need to be communicated with the patient directly, if the patient is not active onMyChart. If the patient is active on MyChart, they will receive notification of the communication/outcome via [employer]. * Telephone Encounter - Neptali Johnson RN [...] optimal time of day to reach caller: [phone] Note: Please do not reply to this [...] Upcoming Encounters Date Type Department Care Team ([facility] st Contact Info) Description 09/16/2025 2:30 PM EDT Appointment Cardiac Imaging [address] [place] [address] 09/16/2025 4:00 PM EDT Office Visit [facility] [place] [address] [facility]. [address] [place] [address] Elvin Schuler MD [address] [place] [address] 10/17/2025 11:40 AM EST Office Visit [facility] Nephrology, Bone & Mineral Metabolism [address] [facility], [address] [place] [address] Azael Mooney MD [address] [place] [address] Scheduled Orders Name Type Priority [...] documented as of this encounter Care Teams Solar Sales Associate Relationship Specialty Start Date End Date Rad Galvan MD [address] [place] [address] PCP - General 04/08/25 Uli Salcedo PA [address] [place] [address] Referring Physician 02/03/25 documented as of this encounter
--- OUTSIDE RECORDS SUMMARY | 2025-08-24 09:56 | XMS_ITS | Encounter Summary ---
Author Organization [facility] Address [address] [place] [id number] Care Team Providers Care Product Planner Name Role Phone Rad Galvan MD Primary Care Provider + Encounter Details Date Type Department Care Team (Late st Contact Info) Description 07/18/2025 Telephone [facility] [address] [place] [address] Rad Galvan MD [address] [place] [address] Social History Tobacco Use Types [...] Functional Status documented as of this encounter Miscellaneous Notes * Telephone Encounter - Bindu Diaz RegSched Rep - 07/18/2025 11:06 AM EDT A user error has taken place: encounter opened in error, closed for administrative reasons. documented in this encounter Plan of Treatment Upcoming Encounters Date Type Department Care Team (Late st Contact Info) Description 10/31/2025 11:00 AM EST Office Visit [facility] [address] [place] [address] Rad Galvan MD [address] [place] [address] documented as of this encounter Visit Diagnoses Not on filedocumented in this encounter Additional Health Concerns Assessment Noted Time PHQ-2 Depression Total Score: 1 02/17/20 24 10:24 AM EDT documented as of this encounter Care Teams Product Planner Relationship Specialty Start Date End Date Rad Galvan MD [address] [place] [address] PCP - General Family Medicine 04/15/22 documented as of this encounter
--- OUTSIDE RECORDS SUMMARY | 2025-08-24 09:56 | XMS_ITS | Encounter Summary ---
Author Organization [facility] Address [address] [place] [address] Care Team Providers Care Care Technician Name Role Phone Uli Salcedo Unavailable [phone] Rad Galvan MD Primary Care Provider [phone] Encounter Details Date Type Department Care Team [...] PM EDT Appointment Cardiac Imaging [address] [place] [address] 09/16/2025 4:00 PM EDT Office Visit [facility] [place] [address] [place] [address] Elvin Schuler MD [address] [place] [address] 10/17/2025 11:40 AM EST Office Visit [facility] Nephrology, Bone & Mineral Metabolism [address] [facility], [address] [place] [address] Azael Mooney MD [address] [place] [address] documented as of this encounter [...] documented as of this encounter Care Teams Care Technician Relationship Specialty Start Date End Date Rad Galvan MD [address] [place] [address] PCP - General 04/08/25 Uli Salcedo PA [address] [place] [address] Referring Physician 02/03/25 documented as of this encounter
== END 2025-08-24 23:59 | disposition home or self-care (01) ==
LOC: RAD 09:34
PROVIDERS: PCP Family Medicine; Visit Provider Family Medicine
DX: Z12.31 Encounter for screening mammogram for malignant neoplasm of breast (principal); R92.323 Mammographic fibroglandular density, bilateral breasts
CPT/HCPCS: 77063; 77067

== ENCOUNTER 2025-08-30 08:03 | Outpatient (CLI) | payer MEDICARE, SELFPAY ==
--- OUTSIDE RECORDS SUMMARY | 2025-07-08 13:45 | XMS_ITS | Encounter Summary ---
Author Organization [facility] Address [address] [place] [address] Care Team Providers Care Portainer Operator Name Role Phone Uli Salcedo Unavailable [phone] Rad Galvan MD Primary Care Provider [phone] Reason for Referral * Consultation (Routine) - Authorized Specialty Diagnoses / Procedures Referred By Contac t Referred To Contact Diagnoses Chronic combined systolic and diastolic congestive heart failure Chika Orellana APRN [address] [place] [address] Phone: tel: fax: Referral ID Status Reason Start Date Expiration Date V isits Requested Visits Authorized [id number] Authorized 07/08/2025 01/07/2027 1 1 Reason for Visit * Reason Comments Congestive Heart Failure Post hospital d ischarge visit Encounter Details Date Type Department Care Team (Late st Contact Info) Description 07/08/2025 1:45 PM EDT Office Visit [facility] [place] [facility] [address] [facility] [place] [address] Elvin Schuler MD [address] [place] [address] Chronic combined systolic and diastolic [...] from the original note were not included. [facility] Sara Edwards is [...] of her function later. 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 The patient is diabetic on [...] 204 lbs today, 203 day after discharge. Hasnot gained more than a pund but does [...] store , will ride the cart around [employer] but walks around the smaller stores. She can prepare her own meals and do light housekeeping. No dizzy spells or syncope, no ICD discharges and no calls from the device clinic alerting her to any arrhythmias. She reports she gets severe headaches that can wake her up. She had one on admission to [facility] and while she was an inpatient. She [...] to follow up closely with cardiology at [place]. Will get labs today to assess since [...] conjunction with Dr Schuler. Chika Orellana APRN [facility] [place] [facility] [1] Past Medical [...] Upcoming Encounters Date Type Department Care Team ([facility] st Contact Info) Description 09/16/2025 2:30 PM EDT Appointment Cardiac Imaging [address] [place] [address] 09/16/2025 4:00 PM EDT Office Visit [facility] [place] [address] [facility] [place] [address] Elvin Schuler MD [address] [place] [address] 10/17/2025 11:40 AM EST Office Visit [facility] Nephrology, Bone & Mineral Metabolism [address] [facility], [address] [place] [address] Azael Mooney MD [address] [place] [address] Scheduled Referrals Name Type Priority Associated Diagnoses [...] - 899 pg/mL 07/08/2025 4:28 PM EDT [facility] Blood Venous blood specimen / Unknown Venipuncture / Unknown 07/08/2025 3:19 PM EDT 07/08/2025 3:54 PM EDT Chika Orellana APRN LAB BLOOD ORDERABLES Final Result [facility] [address] [place] [address] * (ABNORMAL) Comprehensive metabolic panel (07/08/2025 3:19 PM EDT) Glucose, Plasma 84 74 - 99 mg/dL 07/08/2025 4:28 PM EDT [facility] BUN, Plasma 52(H) 8 - 23 mg/dL 07/08/2025 4:28 PM EDT [facility] Creatinine, Plasma 1.80(H) 0.60 - 1.10 mg/dL 07/08/2025 4:28 PM EDT [facility] BUN/Creatinine Ratio 29 07/08/2025 4:28 PM EDT [facility] Sodium, Plasma 130(L) 136 - 145 mmol/L 07/08/2025 4:28 PM EDT [facility] Potassium, Plasma 3.7 3.6 - 4.9 mmol/L 07/08/2025 4:28 PM EDT [facility] Chloride, Plasma 87(L) 97 - 107 mmol/L 07/08/2025 4:28 PM EDT [facility] CO2, Plasma 28 22 - 29 mmol/L 07/08/2025 4:28 PM EDT [facility] Anion Gap 15 6 - 16 mmol/L 07/08/2025 4:28 PM EDT [facility] Total Calcium, Plasma 9.4 8.9 - 10.2 mg/dL 07/08/2025 4:28 PM EDT [facility] Total Protein 8.0(H) 6.3 - 7.9 g/dL 07/08/2025 4:28 PM EDT [facility] Albumin, Plasma 4.4 3.5 - 5.2 g/dL 07/08/2025 4:28 PM EDT [facility] AST, Plasma 40(H) 10 - 35 U/L 07/08/2025 4:28 PM EDT [facility] Comment:Hemolyzed, result ma y be falsely increased. ALT, Plasma 19 10 - 35 U/L 07/08/2025 4:28 PM EDT [facility] Alkaline Phosphatase, Plasma 202(H) 46 - 142 U/L 07/08/2025 4:28 PM EDT [facility] Total Bilirubin, Plasma 0.8 0.2 - 1.1 mg/dL 07/08/2025 4:28 PM EDT [facility] eGFRcr 30.4 mL/min/1.7 3m*2 07/08/2025 4:28 PM EDT [facility] Comment:Reported eGFRcr in m L/min/1.73m2 is based the CKD-EPI 2020 equation that does not use a race coefficient. Blood Venous blood specimen / Unknown Venipuncture / Unknown 07/08/2025 3:19 PM EDT 07/08/2025 3:54 PM EDT Chika Orellana APRN LAB BLOOD ORDERABLES Final Result [facility] [address] [place] [address] documented in this encounter Visit Diagnoses Diagnosis [...] documented as of this encounter Care Teams Portainer Operator Relationship Specialty Start Date End Date Rad Galvan MD [address] [place] [address] PCP - General 04/08/25 Uli Salcedo PA [address] [place] [address] Referring Physician 02/03/25 documented as of this encounter
--- OUTSIDE RECORDS SUMMARY | 2025-07-15 10:30 | XMS_ITS | Encounter Summary ---
Author Organization [facility] Address [address] [place] [address] Care Team Providers Care Dimmer Board Operator Name Role Phone Uli Salcedo Unavailable [phone] Rad Galvan MD Primary Care Provider [phone] Encounter Details Date Type Department Care Team (Latest Contact Info) Description 07/15/2025 10:30 AM EDT Ancillary Procedure [facility] [place] [address] [place] [address] Chronic combined systolic and diastolic congestive heart failure (CMS/HCC) Social History Tobacco Use Types Packs/Day Years [...] as of this encounter Miscellaneous Notes * Clinician Note - Linda Garcia RN - 07/15/2025 10:30 AM EDT The patient has transmitted at least four times in the past 30 days and the provider has reviewed transmissions at least four times in the past 30 days. 06-23-2025 09:17 AM 41 mmHg 24 mmHg 6 30 mmHg 71 bpm 06-22-2025 08:17 AM 48 mmHg 25 mmHg 7 33 mmHg 72 bpm 06-21-2025 09:24 AM 40 mmHg 22 mmHg 4 29 mmHg 71 bpm 06-20-2025 09:18 AM 44 mmHg 25 mmHg 7 33 mmHg 73 bpm 06-18-2025 09:06 AM 40 mmHg 20 mmHg 2 28 mmHg 75 bpm 06-17-2025 07:57 AM 42 mmHg 23 mmHg 5 30 mmHg 71 bpm 06-16-2025 10:05 AM 40 mmHg 20 mmHg 2 28 mmHg 73 bpm 06-15-2025 07:50 AM 42 mmHg 22 mmHg 4 30 mmHg 71 bpm 06-14-2025 09:14 AM 42 mmHg 23 mmHg 5 31 mmHg 70 bpm 06-13-2025 10:33 AM 40 mmHg 18 mmHg 0 27 mmHg 80 bpm 06-12-2025 08:15 AM 40 mmHg 18 mmHg 0 27 mmHg 71 bpm 06-11-2025 07:17 AM 48 mmHg 25 mmHg 7 35 mmHg 75 bpm 06-10-2025 08:09 AM 42 mmHg 21 mmHg 3 29 mmHg 71 bpm 06-09-2025 12:17 PM 41 mmHg 20 mmHg 2 29 mmHg 80 bpm 06-08-2025 09:00 AM 38 mmHg 21 mmHg 3 28 mmHg 70 bpm 06-07-2025 10:31 AM 41 mmHg 18 mmHg 0 27 mmHg 79 bpm 06-06-2025 07:37 AM 39 mmHg 18 mmHg n/a 26 mmHg 79 bpm 06-05-2025 08:45 AM 42 mmHg 20 mmHg n/a 29 mmHg 82 bpm 06-02-2025 08:57 AM 40 mmHg 21 mmHg n/a 29 mmHg 72 bpm 06-01-2025 08:44 AM 39 mmHg 20 mmHg n/a 28 mmHg 70 bpm 05-31-2025 06:28 AM 44 mmHg 20 mmHg n/a 29 mmHg 87 bpm 05-30-2025 09:00 AM 44 mmHg 23 mmHg n/a 31 mmHg 79 bpm 05-26-2025 10:33 AM 39 mmHg 18 mmHg n/a 27 mmHg 82 bpm 05-25-2025 10:22 AM 42 mmHg 20 mmHg n/a 29 mmHg 77 bpm 05-24-2025 01:50 PM 41 mmHg 19 mmHg n/a 28 mmHg 93 bpm I have reviewed the CardioMEMS transmissions as reported above. Cosigned by Chika Orellana APRN at 08/09/2025 10:19 AM EDT Associated attestation - Chika Orellana APRN - 08/09/2025 10:19 AM EDT I have personally reviewed and interpreted the Cardiomems pressure readings at least once weekly inthe past 30 days. These were remote readings not an in office device interrogation. Chika Orellana APRN documented in this encounter Plan of Treatment Upcoming Encounters Date Type Department Care Team ([facility] st Contact Info) Description 09/16/2025 2:30 PM EDT Appointment Cardiac Imaging [address] [place] [address] 09/16/2025 4:00 PM EDT Office Visit [facility] [place] [address] [place] [address] Elvin Schuler MD [address] [place] [address] 10/17/2025 11:40 AM EST Office Visit [facility] Nephrology, Bone & Mineral Metabolism [address] [facility], [address] [place] [address] Azael Mooney MD [address] [place] [phone] documented as of this encounter Visit Diagnoses Diagnosis Chronic combined systolic and diastolic congestive heart failure documented in this encounter Additional Health Concerns Assessment Noted Time PHQ-9 Depression Total Score: 10 025 1:50 PM EDT A fall risk assessment has been complete d for the patient 07/08/2025 1:43 PM EDT A Body Mass Index follow-up plan has been documented for the patient 07/08/2025 3:46 PM EDT documented as of this encounter Care Teams Dimmer Board Operator Relationship Specialty Start Date End Date Rad Galvan MD [address] [place] [address] PCP - General 04/08/25 Uli Salcedo PA [address] [place] [address] Referring Physician 02/03/25 documented as of this encounter
--- OUTSIDE RECORDS SUMMARY | 2025-07-27 08:02 | XMS_ITS | Encounter Summary ---
Author Organization [facility] Address [address] 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 combined systolic and diastolic congestive heart failure (CMS/HCC) [I50.42] Procedures [place] RIGHT HEART CATH O2 SATURATION & CARDIAC OUTPUT Right heart catheterization Elvin Schuler MD [address] [place] [address] Phone: tel: fax: Cardiac Lubrication Servicer [address] [place] [address] Phone: tel: Referral ID Status Reason Start Date Expiration Date Visits Re quested Visits Authorized [id number] 1 1 Encounter Details Date Type Department Care Team (Latest Contact Info) Description 07/27/2025 8:02 AM EDT - 07/27/2025 10:39 AM EDT Hospital Encounter Cardiac Lubrication Servicer [address] [place] [address] Elvin Schuler MD [address] [place] [address] Chronic combined systolic and diastolic congestive heart failure ([facility]/HCC) Discharge Disposition: Home or Self Care [...] cannot stop thebleeding, call 911 or 0 (cutter operator). This is an emergency. Ask for [...] or holidays, call and ask for the Student Education Specialist care transition coordinator. * H&P - Elvin Schuler MD - 07/27/2025 8:29 AM EDT History Of Present Illness Sara Edwards is a 70 y.o. female with known chronic systolic heart failure presenting with increasing edema, fatigue, and dyspnea. She was hospitalized over a month ago at [facility] and received IV diuretics. She has [...] discussed with the patient and/or their medical customer service representative. All questions answered and they agree to proceed. documented in this encounter Plan of Treatment Upcoming Encounters Date Type Department Care Team (Late st Contact Info) Description 09/16/2025 2:30 PM EDT Appointment Cardiac Imaging [address] [place] [address] 09/16/2025 4:00 PM EDT Office Visit [facility] [place] [address] [place] [address] Elvin Schuler MD [address] [place] [address] 10/17/2025 11:40 AM EST Office Visit [facility] Nephrology, Bone & Mineral Metabolism [address], [address] [place] [address] Azeal Mooney MD [address] [place] [address] documented as of this encounter [...] then carried out using a 7.5F VIP [place]-Po catheter. Pressures were recorded as the catheter [...] the patient was transferred back to the labor economics professor holding area in good condition. Hemodynamic Data [...] POCT CO-Oximitry, Venous (07/27/2025 8:59 AM EDT) [facility] POCT OXYHEMOGLOBIN, VENOUS 62 40 - 70 % 07/27/2025 8:57 AM EDT [facility] Dermatology Nurse ID Fister-Mes ch, Jael 07/27/2025 8:57 AM EDT [facility] Device ID [id number] 07/27/2025 8:57 AM EDT [facility] POCT Sample Site PA 07/27/2025 8:57 AM EDT [facility] POCT Total Hemoglobin 10.4(L) 11.2 - 15.7 g/dL 07/27/2025 8:57 AM EDT [facility] Venous blood specimen / Unknown 07/27/2025 8:59 AM EDT 07/27/2025 8:57 AM EDT us Elvin Schuler MD LAB POINT OF CARE T EST DOCKED DEVICE UNSOLICITED RESULTS Final Result [facility] [address] [place] [address] documented in this encounter Visit Diagnoses Diagnosis [...] documented as of this encounter Care Teams Nurse Practitioner Adult Relationship Specialty Start Date End Date Rad Galvan MD [address] [place], [place] [id number] PCP - General 04/08/25 Uli Salcedo PA [address] [place] [address] Referring Physician 02/03/25 documented as of this encounter
--- OUTSIDE RECORDS SUMMARY | 2025-07-27 08:45 | XMS_ITS | Encounter Summary ---
Author Organization [facility] Address [address] 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 systolic and diastolic congestive heart failure (CMS/HCC) [I50.42] Procedures [place] RIGHT HEART CATH O2 SATURATION & CARDIAC OUTPUT Right heart catheterization Elvin Schuler MD [address] [place] [address] Phone: tel: fax: Cardiac Furrier Designer [address] [place] [address] Phone: tel: Referral ID Status Reason Start Date Expiration Date Visits Re quested Visits Authorized [id number] 1 1 Encounter Details Date Type Department Care Team (Late st Contact Info) Description 07/27/2025 8:45 AM EDT - 07/27/2025 10:00 AM EDT Surgery Cardiac Furrier Designer [address] [place] [address] Elvin Schuler MD [address] [place] [address] Right heart catheterization [28242 (CPT )] Surgery Details Date/Time Status Location OR Service Patient Class Case Class Case Type Trauma Case? 07/27/2025 8:45 AM Posted JESUS FITNESS PROFESSIONAL FITNESS PROFESSIONAL 03 [facility] Outpatient Surgery E-Elect jennifer Panel 1 [...] 1 Month) No 07/27/2025 8:16 AM EDT Alphnoso Lee RN 6. Suicidal Behavior (Lifetime) No [...] cannot stop thebleeding, call 911 or 0 (laminating machine operator helper). This is an emergency. [...] or holidays, call and ask for the Clinical Research Director medical transcription editor. * H&P - Elvin Schuler MD - 07/27/2025 8:29 AM EDT History Of Present Illness Sara Edwards is a 70 y.o. female with known chronic systolic heart failure presenting with increasing edema, fatigue, and dyspnea. She was hospitalized over a month ago at [facility] and received IV diuretics. She has a [...] been discussed with the patient and/or their client account representative. All questions answered and they agree to proceed. documented in this encounter Plan of Treatment Upcoming Encounters Date Type Department Care Team (Late st Contact Info) Description 09/16/2025 2:30 PM EDT Appointment Cardiac Imaging [address] [place] [address] 09/16/2025 4:00 PM EDT Office Visit [facility] [place] [facility] [address] [place] [address] Elvin Schuler MD [address] [place] [address] 10/17/2025 11:40 AM EST Office Visit [facility] Nephrology, Bone & Mineral Metabolism [address] [facility], [address] [place] [address] Azael Mooney MD [address] [place] [address] documented as of this encounter [...] then carried out using a 7.5F VIP [place]-Po catheter. Pressures were recorded as the catheter [...] patient was transferred back to the labor arbitrator hearing office holding area in good condition. Hemodynamic Data [...] POCT CO-Oximitry, Venous (07/27/2025 8:59 AM EDT) [facility] POCT OXYHEMOGLOBIN, VENOUS 62 40 - 70 % 07/27/2025 8:57 AM EDT [facility]ARE [facility] Maintenance Service Technician ID Calier-Diana bustos Jael 07/27/2025 8:57 AM EDT [facility] Device ID [id number] 07/27/2025 8:57 AM EDT [facility] POCT Sample Site PA 07/27/2025 8:57 AM EDT [facility] POCT Total Hemoglobin 10.4(L) 11.2 - 15.7 g/dL 07/27/2025 8:57 AM EDT [facility] Venous blood specimen / Unknown 07/27/2025 8:59 AM EDT 07/27/2025 8:57 AM EDT Elvin Schuler MD LAB POINT OF CARE T EST DOCKED DEVICE UNSOLICITED RESULTS Final Result [facility] [address] [place] [address] documented in this encounter Visit Diagnoses Diagnosis [...] documented as of this encounter Care Teams Surveyor Geodetic Relationship Specialty Start Date End Date Rad Galvan MD [address] [place] [address] PCP - General 04/08/25 Uli Salcedo PA [address] [place] [address] Referring Physician 02/03/25 documented as of this encounter
--- OUTSIDE RECORDS SUMMARY | 2025-08-15 11:00 | XMS_ITS | Encounter Summary ---
Author Organization [facility] Address [address] [place] [address] Care Team Providers Care Bird Keeper Name Role Phone Uli Salcedo Unavailable [phone] Rad Galvan MD Primary Care Provider [phone] Encounter Details Date Type Department Care Team (Latest Contact Info) Description 08/15/2025 11:00 AM EDT Ancillary Procedure [facility] [place] [address] [place] [address] Chronic combined systolic and diastolic congestive heart [...] Upcoming Encounters Date Type Department Care Team ([facility] Contact Info) Description 09/16/2025 2:30 PM EDT Appointment Cardiac Imaging [address] [place] [address] 09/16/2025 4:00 PM EDT Office Visit [facility] [place] [address] [facility]. [address] [place] [address] [place] Schuler MD [address] [place] [address] 10/17/2025 11:40 AM EST Office Visit [facility] Nephrology, Bone & Mineral Metabolism [address] [facility], [address] [place] [address] Azael Mooney MD [address] [place] [address] documented as of this encounter Visit Diagnoses [...] documented as of this encounter Care Teams Bird Keeper Relationship Specialty Start Date End Date Rad Galvan MD [address] [place] [address] PCP - General 04/08/25 Uli Salcedo PA [address] [place] [address] Referring Physician 02/03/25 documented as of this encounter
--- OUTSIDE RECORDS SUMMARY | 2025-08-22 14:00 | XMS_ITS | Encounter Summary ---
Author Organization [facility] Address [address] [place] [address] Care Team Providers Care Marketing Support Coordinator Name Role Phone Uli Salcedo PA Unavailable [phone] Rad Galvan MD Primary Care Provider [phone] Reason for Referral * Consultation (Routine) - Authorized Specialty Diagnoses / Procedures Referred By Regan greene Referred To Contact Diagnoses Stage 3b chronic kidney disease (CMS/HCC) Lenore Cobos MD [facility] [address] [address] Phone: tel: fax: Referral ID Status Reason Start Date Expiration Date V isits Requested Visits Authorized [id number] Authorized 08/22/2025 02/21/2027 1 1 Reason for Visit * Reason Comments Follow-up * Consultation (Urgent) - Closed Specialty Diagnoses / Procedures Referred By Regan greene Referred To Contact Nephrology Diagnoses Stage 4 chronic kidney disease (CMS/HCC) Procedures [place] OFFICE/OUTPATIENT NEW MODERATE MDM 45-59 MINUTES 131 ([email or web address]) - Ambulatory Referral to Nephrology Desi Beckford, CONSTRUCTION CHECKER [address] [place] [address] Phone: tel: fax: Azael Mooney MD [address] [place] [address] Phone: tel: fax: Referral ID Status Reason Start Date Expiration Date Visits Re quested Visits Authorized [id number] Closed 08/17/2025 11/16/2026 1 1 Encounter Details Date Type Department Care Team (Late st Contact Info) Description 08/22/2025 2:00 PM EDT Office Visit [facility] [address] , [address] [place] [address] Lenore Seaman MD [address] [place] [address] Obesity (BMI 35.0-39.9 without comorbidity) [...] but has not previously consulted with a switch tender. Since 2020, her kidney function has shown [...] She is under the care of a graduate research assistant who has expressed concerns about excessive fluid [...] her diuretic regimen as prescribed by her graduate research assistant. Blood work including Cystatin C, repeat RFP [...] will follow up in 2-3 months at [facility]. RTC in 6 months with [...] Procedure Laterality Date APPENDECTOMY N/A Appendectomy from [employer] GALLBLADDER SURGERY N/A Anastomosis Of Gallbladder from [employer] INSERT / REPLACE / REMOVE PACEMAKER 2019 TONSILLECTOMY N/A Tonsillectomy from [employer] [3] Family History Problem Relation Name Age [...] EDT Appointment Cardiac Imaging [address] [place] [address] 09/16/2025 4:00 PM EDT Office Visit [facility] [place] [address] [place] [address] Elvin Schuler MD [address] [place] [address] 10/17/2025 11:40 AM EST Office Visit [facility] [address] [facility] [address], [address] [place] [address] Azael Mooney MD [address] [place] [address] Scheduled Orders Name Type Priority Associated Diagnoses Orde r Schedule Renal Function Panel, Plasma Lab Routine Stage 3b chronic kidney disease ([facility]/HCC) Expected: 02/19/2026 (Approximate), Expires: 02/19/2027 Albumin-creatinine ratio, urine, random Lab Routine Stage 3b chronic kidney disease ([facility]) Expected: 10/22/2025 (Approximate), Expires: 02/23/2027 CBC W/O Differential Lab Routine Stage 3b chronic kidney disease ([facility]) Expected: 10/22/2025 (Approximate), Expires: 02/23/2027 Cystatin C Lab Routine Stage 3b chronic kidney disease ([facility]) Expected: 10/22/2025 (Approximate), Expires: 02/23/2027 Protein, Random, Urine with Creatinine Lab Routine Stage 3b chronic kidney disease ([facility]/HCC) Expected: 10/22/2025 (Approximate), Expires: 02/23/2027 PTH Intact Total Lab Routine Stage 3b chronic kidney disease ([facility]/HCC) Expected: 10/22/2025 (Approximate), Expires: 02/23/2027 Urinalysis with reflex microscopic (Culture NOT Included) Lab Routine Stage 3b chronic kidney disease ([facility]) Expected: 10/22/2025 (Approximate), Expires: 02/23/2027 Vitamin D [...] - 0.95 mg/L 08/22/2025 6:[address] [facility] Blood Venous blood specimen / Unknown Venipuncture / Unknown 08/22/2025 3:59 PM EDT 08/22/2025 3:59 PM EDT Lenore Cobos MD LAB BLOOD OR DERABLES Final Result [facility] [address] [place] [address] * Vitamin D 25 Hydroxy (08/22/2025 3:59 PM EDT) Vitamin D 25 Hydroxy 61.8 20.0 - 80.0 ng/mL 08/22/2025 7:[address] [facility] Blood Venous blood specimen / Unknown Venipuncture / Unknown 08/22/2025 3:59 PM EDT 08/22/2025 3:[address] [facility] - 08/22/2025 7:20 PM EDT Testing performed on [employer], standardized against NIST SRM 2972. When testing [...] MD LAB BLOOD OR DERABLES Final Result [facility] [address] [place] [address] * (ABNORMAL) PTH Intact Total (08/22/2025 3:59 PM EDT) PTH Intact Total 242(H) 9 - 77 pg/mL 08/22/2025 6:11 PM EDT [facility] Blood Venous blood specimen / Unknown Venipuncture / Unknown 08/22/2025 3:59 PM EDT 08/22/2025 3:[address] [facility] - 08/22/2025 6:11 PM EDT Assay performed by immunoassay at the [facility]. Performed on [employer] chemiluminescent immunoassay, tractable to the World Health Organization's first international standard for PTH from the NIBS, Code 79/500. Results obtained from different test methods or kits cannot be used interchangeably. Lenore Cobos MD LAB BLOOD OR DERABLES Final Result [facility] [address] [place] [address] * (ABNORMAL) CBC W/O Differential (08/22/2025 3:59 PM EDT) WBC Count 7.37 3.70 - 10.30 10*3/uL LAB HEMATOLOGY METHOD 08/22/2025 5:23 PM EDT [facility] RBC Count 2.97(L) 3.90 - 5.20 10*6/uL LAB HEMATOLOGY METHOD 08/22/2025 5:23 PM EDT [facility] HGB 10.1(L) 11.2 - 15.7 g/dL LAB HEMATOLOGY METHOD 08/22/2025 5:23 PM EDT [facility] HCT 31.6(L) 34.0 - 45.0 % LAB HEMATOLOGY METHOD 08/22/2025 5:23 PM EDT [facility] Platelet Count 208 155 - 369 10*3/uL LAB HEMATOLOGY METHOD 08/22/2025 5:23 PM EDT [facility] MCV 106(H) 79 - 98 fL LAB HEMATOLOGY METHOD 08/22/2025 5:23 PM EDT [facility] MCH 34.0(H) 26.0 - 32.0 pg LAB HEMATOLOGY METHOD 08/22/2025 5:23 PM EDT [facility] MCHC 32.0 30.7 - 35.5 g/dL LAB HEMATOLOGY METHOD 08/22/2025 5:23 PM EDT [facility] RDW 15.4(H) 11.5 - 14.5 % LAB HEMATOLOGY METHOD 08/22/2025 5:23 PM EDT [facility] MPV 10.1 8.8 - 12.5 fL LAB HEMATOLOGY METHOD 08/22/2025 5:23 PM EDT [facility] nRBC 0.0 <=0.0 per 100 WBCs LAB HEMATOLOGY METHOD 08/22/2025 5:23 PM EDT [facility] Blood Venous blood specimen / Unknown Venipuncture / Unknown 08/22/2025 3:59 PM EDT 08/22/2025 3:59 PM EDT us Lenore Cobos MD LAB BLOOD OR DERABLES Final Result [facility] [address] [place] [address] * (ABNORMAL) Renal Function Panel, Plasma (08/22/2025 3:59 PM EDT) Glucose, Plasma 178(H) 74 - 99 mg/dL 08/22/2025 5:45 PM EDT [facility] BUN, Plasma 32(H) 8 - 23 mg/dL 08/22/2025 5:45 PM EDT [facility] Creatinine, Plasma 1.55(H) 0.60 - 1.10 mg/dL 08/22/2025 5:45 PM EDT [facility] BUN/Creatinine Ratio 21 08/22/2025 5:45 PM EDT [facility] Sodium, Plasma 136 136 - 145 mmol/L 08/22/2025 5:45 PM EDT [facility] Potassium, Plasma 4.6 3.6 - 4.9 mmol/L 08/22/2025 5:45 PM EDT [facility] Chloride, Plasma 92(L) 97 - 107 mmol/L 08/22/2025 5:45 PM EDT [facility] CO2, Plasma 30(H) 22 - 29 mmol/L 08/22/2025 5:45 PM EDT [facility] Anion Gap 14 6 - 16 mmol/L 08/22/2025 5:45 PM EDT [facility] Total Calcium, Plasma 9.6 8.9 - 10.2 mg/dL 08/22/2025 5:45 PM EDT [facility] Phosphorus, Plasma 3.6 2.5 - 4.5 mg/dL 08/22/2025 5:45 PM EDT [facility] Albumin, Plasma 4.1 3.5 - 5.2 g/dL 08/22/2025 5:45 PM EDT [facility] eGFRcr 36.3 mL/min/1.7 3m*2 08/22/2025 5:45 PM EDT [facility] Comment:Reported eGFRcr in m L/min/1.73m2 is based the CKD-EPI 2020 equation that does not use a race coefficient. Blood Venous blood specimen / Unknown Venipuncture / Unknown 08/22/2025 3:59 PM EDT 08/22/2025 3:59 PM EDT Lenore Cobos MD LAB BLOOD OR DERABLES Final Result [facility] [address] [place] [id number] * Protein, Random, Urine with Creatinine (08/22/2025 3:48 PM EDT) Protein, Urine 6 mg/dL 08/22/2025 5:50 PM EDT [facility] Creatinine, Urine 19 mg/dL 08/22/2025 5:50 PM EDT [facility] Protein/Creati nine Ratio 0.3 mg/mg Creat 08/22/2025 5:50 PM EDT [facility] Urine Urine specimen obtained by clean catch procedure / Unknown Non-blood Collection / Unknown 08/22/2025 3:48 PM EDT 08/22/2025 3:48 PM EDT us Lenore Cobos MD LAB URINE OR DERABLES Final Result [facility] [address] [place] [id number] * (ABNORMAL) Urinalysis with reflex microscopic (Culture NOT Included) (08/22/2025 3:48 PM EDT) Color, Urine Yellow LAB URINALYSIS - AUTOMATED METHOD 08/22/2025 5:22 PM EDT [facility] Clarity, Urine Clear LAB URINALYSIS - AUTOMATED METHOD 08/22/2025 5:22 PM EDT [facility] Spec [place], Urine 1.009 1.005 - 1.030 LAB URINALYSIS - AUTOMATED METHOD 08/22/2025 5:22 PM EDT [facility] pH, Urine 7.0 5.0 - 8.0 LAB URINALYSIS - AUTOMATED METHOD 08/22/2025 5:22 PM EDT [facility] Protein, Urine Negative Negative mg/dL LAB URINALYSIS - AUTOMATED METHOD 08/22/2025 5:22 PM EDT [facility] Glucose, Urine 500(A) Negative mg/dL LAB URINALYSIS - AUTOMATED METHOD 08/22/2025 5:22 PM EDT [facility] Ketones, Urine Negative Negative mg/dL LAB URINALYSIS - AUTOMATED METHOD 08/22/2025 5:22 PM EDT [facility] Blood, Urine Negative Negative LAB URINALYSIS - AUTOMATED METHOD 08/22/2025 5:22 PM EDT [facility] Bilirubin, Urine Negative Negative LAB URINALYSIS - AUTOMATED METHOD 08/22/2025 5:22 PM EDT [facility] Urobilinogen, Urine 0.2 0.2 to 1.0 mg/dL LAB URINALYSIS - AUTOMATED METHOD 08/22/2025 5:22 PM EDT [facility] Leukocytes, Urine Negative Negative LAB URINALYSIS - AUTOMATED METHOD 08/22/2025 5:22 PM EDT [facility] Nitrite, Urine Negative Negative LAB URINALYSIS - AUTOMATED METHOD 08/22/2025 5:22 PM EDT [facility] Urine Urine specimen obtained by clean catch procedure / Unknown Non-blood Collection / Unknown 08/22/2025 3:48 PM EDT 08/22/2025 3:48 PM EDT us Lenore Cobos MD LAB URINE OR DERABLES Final Result Performing Organization Address City/[facility]/ZIP Co de Phone Number [facility] [address] [place] [address] * Albumin-creatinine ratio, urine, random (08/22/2025 3:48 PM EDT) Microalbumin, Urine <1.2 <1.9 mg/dL 08/22/2025 6:[address] [facility] Creatinine, Urine 19 mg/dL 08/22/2025 6:[address] [facility] Albumin/Creatin ine Ratio 08/22/2025 6:[address] [facility] Comment:Unable to calculate, at least one value is above or below the detection limit. Urine Urine specimen obtained by clean catch procedure / Unknown Non-blood Collection / Unknown 08/22/2025 3:48 PM EDT 08/22/2025 3:48 PM EDT us Lenore Cobos MD LAB URINE OR DERABLES Final Result Performing Organization Address City/[facility]/ZIP Co de Phone Number [facility] [address] [place] [address] documented in this encounter Visit Diagnoses Diagnosis [...] documented as of this encounter Care Teams Marketing Support Coordinator Relationship Specialty Start Date End Date Rad Galvan MD [address] [place] [address] PCP - General 04/08/25 Uli Salcedo PA [address] [place] [address] Referring Physician 02/03/25 documented as of this encounter
--- OUTSIDE RECORDS SUMMARY | 2025-08-30 08:06 | XMS_ITS | Encounter Summary ---
Author Organization [facility] Address [address] [place] [address] Care Team Providers Care Fermenter Helper Name Role Phone Uli Salcedo Unavailable [phone] Rad Galvan MD Primary Care Provider [...] PM EDT Appointment Cardiac Imaging [address] [place] [address] 09/16/2025 4:00 PM EDT Office Visit [facility] [place] [address] [facility] [place] [address] Elvin Schuler MD [address] [place] [address] 10/17/2025 11:40 AM EST Office Visit [facility] Nephrology, Bone & Mineral Metabolism [address] [facility], [address] [place] [address] Azael Mooney MD [address] [place] [address] documented as of this encounter [...] documented as of this encounter Care Teams Fermenter Helper Relationship Specialty Start Date End Date Rad Galvan MD [address] [place] [address] PCP - General 04/08/25 Uli Salcedo PA [address] [place] [address] Referring Physician 02/03/25 documented as of this encounter
--- OUTSIDE RECORDS SUMMARY | 2025-08-30 08:07 | XMS_ITS | Encounter Summary ---
Author Organization [facility] Address [address] [place] [address] Care Team Providers Care Instrument Worker Name Role Phone Uli Salcedo Unavailable Rad Galvan MD Primary Care Provider [phone] Encounter Details Date Type Department Care Team [...] PM EDT Appointment Cardiac Imaging [address] [place] [address] 09/16/2025 4:00 PM EDT Office Visit [facility] [place] [address] [place] [address] Elvin Schuler MD [address] [place] [address] 10/17/2025 11:40 AM EST Office Visit [facility] Nephrology, Bone & Mineral Metabolism [address] [facility], [address] [place] [address] Azael Mooney MD [address] [place] [address] documented as of this encounter [...] documented as of this encounter Care Teams Instrument Worker Relationship Specialty Start Date End Date Rad Galvan MD [address] [place] [address] PCP - General 04/08/25 Uli Salcedo PA [address] [place] [address] Referring Physician 02/03/25 documented as of this encounter
--- OUTSIDE RECORDS SUMMARY | 2025-08-30 08:07 | XMS_ITS | Encounter Summary ---
Author Organization [facility] Address [address] [place] [address] Care Team Providers Care Molder Machine Name Role Phone Andrew Lee MD Primary Care Provider [phone] Uli Salcedo Unavailable [phone] Rad Galvan MD Primary Care Provider [phone] Encounter Details Date Type Department Care Team (Late st Contact Info) Description 01/11/2025 Orders Only External Location [address] [place] [address] Uli Salcedo PA [address] [place], [place] [id number] Social History Tobacco Use Types Packs/Day Years [...] PM EDT Appointment Cardiac Imaging [address] [place] [address] 09/16/2025 4:00 PM EDT Office Visit [facility] [place] [facility] [address] [facility] [place] [address] Elvin Schuler MD [address] [place] [address] 10/17/2025 11:40 AM EST Office Visit [facility] Nephrology, Bone & Mineral Metabolism [address] [facility], [address] [place] [address] Azael Mooney MD [address] [place] [address] documented as of this encounter [...] on filedocumented in this encounter Care Teams Molder Machine Relationship Specialty Start Date End Date Andrew Lee MD [address] [place] [address] [address] [place] [address] PCP - General 04/06/21 04/07/25 Rad Galvan MD [address] [place] [address] PCP - General 04/08/25 Uli Salcedo PA [address] [place] [address] Referring Physician 02/03/25 documented as of this encounter
--- OUTSIDE RECORDS SUMMARY | 2025-08-30 08:08 | XMS_ITS | Encounter Summary ---
Author Organization [facility] Address [address] [place] [address] Care Team Providers Care Student Development Specialist Name Role Phone Uli Salcedo Unavailable [phone] Rad Galvan MD Primary Care Provider [phone] Encounter Details Date Type Department Care Team (Late st Contact Info) Description 07/22/2025 Telephone [facility] [place] [address] [facility], [address] [place] [address] Chika Orellana APRN [address] [place] [address] Social History Tobacco Use Types [...] PM EDT Appointment Cardiac Imaging [address] [place] [address] 09/16/2025 4:00 PM EDT Office Visit [facility] [place] [address] [facility] [place] [address] Elvin Schuler MD [address] [place] [address] 10/17/2025 11:40 AM EST Office Visit [facility] Nephrology, Bone & Mineral Metabolism [address] [facility], [address] [place] [address] Azael Mooney MD [address] [place] [address] documented as of this encounter [...] as of this encounter Care Teams Student Development Specialist Relationship Specialty Start Date End Date Rad Galvan MD [address] [place], [place] [id number] PCP - General 04/08/25 Uli Salcedo PA [address] [place], [place] [address] Referring Physician 02/03/25 documented as of this encounter
--- OUTSIDE RECORDS SUMMARY | 2025-08-30 08:09 | XMS_ITS | Encounter Summary ---
Author Organization [facility] Address [address] [place] [address] Care Team Providers Care Cloth Seconds Sorter Name Role Phone Uli Salcedo Unavailable [phone] Rad Galvan MD Primary Care Provider [phone] Encounter Details Date Type Department Care Team [...] PM EDT Appointment Cardiac Imaging [address] [place] [address] 09/16/2025 4:00 PM EDT Office Visit [facility] [place] [address] [place] [address] Elvin Schuler MD [address] [place] [address] 10/17/2025 11:40 AM EST Office Visit [facility] Nephrology, Bone & Mineral Metabolism [address] [facility], [address] [place] [address] Azael Mooney MD [address] [place] [address] documented as of this encounter [...] documented as of this encounter Care Teams Cloth Seconds Sorter Relationship Specialty Start Date End Date Rad Galvan MD [address] [place] [address] PCP - General 04/08/25 Uli Salcedo PA [address] [place] [address] Referring Physician 02/03/25 documented as of this encounter
--- OUTSIDE RECORDS SUMMARY | 2025-08-30 08:10 | XMS_ITS | Encounter Summary ---
Author Organization [facility] Address [address] [place] [address] Care Team Providers Care Baling Machine Tender Name Role Phone Uli Salcedo Unavailable [phone] Rad Galvan MD Primary Care Provider [phone] Reason for Visit * Reason Onset Date Comments HCN - Patient Message 08/09/2025 Encounter Details Date Type Department Care Team (Late st Contact Info) Description 08/09/2025 Telephone [facility] [place] [address] [facility] [place] [address] Elvin Schuler MD [address] [place] [address] HCN - Patient Message Social [...] Jerry reported she was currently admitted to [facility]. She is aware to contact me once d/c and will request d/c summary. * Telephone Encounter - Mary Ann Pugh - 08/09/2025 8:47 AM EDT Clinical Concern/Question Reason for Call: pt would like to speak to yaritza. She is currently in admitted to the hospital and would like to speak to her about her admission. Best contact number: [phone] (mobile) Optimal time of day to reach caller: ANYTIME Additional comments/information from caller: None Note: Please do not reply to this message. Follow-up communication and further actions as a result of this message need to be communicated with the patient directly, if the patient is not active onMyChart. If the patient is active on MyChart, they will receive notification of the communication/outcome via [employer]. documented in this encounter Plan of Treatment Upcoming Encounters Date Type Department Care Team (Late st Contact Info) Description 09/16/2025 2:30 PM EDT Appointment Cardiac Imaging [address] [place] [address] 09/16/2025 4:00 PM EDT Office Visit [facility] [place] [address] [facility] [place] [address] Elvin Schuler MD [address] [place] [address] 10/17/2025 11:40 AM EST Office Visit [facility] Nephrology, Bone & Mineral Metabolism [address] [facility], [address] [place] [address] Azael Mooney MD [address] [place] [address] documented as of this encounter [...] documented as of this encounter Care Teams Baling Machine Tender Relationship Specialty Start Date End Date Rad Galvan MD [address] [place] [address] PCP - General 04/08/25 Uli Salcedo PA [address] [place] [address] Referring Physician 02/03/25 documented as of this encounter
--- OUTSIDE RECORDS SUMMARY | 2025-08-30 08:10 | XMS_ITS | Encounter Summary ---
Author Organization [facility] Address [address] [place] [address] Care Team Providers Care Toll Operator Name Role Phone Uli Salcedo Unavailable [phone] Rad Galvan MD Primary Care Provider [phone] Encounter Details Date Type Department Care Team [...] PM EDT Appointment Cardiac Imaging [address] [place] [address] 09/16/2025 4:00 PM EDT Office Visit [facility] [place] [facility] [address] [place] [address] Elvin Schuler MD [address] [place] [address] 10/17/2025 11:40 AM EST Office Visit [facility] Nephrology, Bone & Mineral Metabolism [address] [facility], [address] [place] [address] Azael Mooney MD [address] [place] [address] documented as of this encounter [...] documented as of this encounter Care Teams Toll Operator Relationship Specialty Start Date End Date Rad Galvan MD [address] [place] [address] PCP - General 04/08/25 Uli Salcedo PA [address] [place] [address] Referring Physician 02/03/25 documented as of this encounter
--- OUTSIDE RECORDS SUMMARY | 2025-08-30 08:11 | XMS_ITS | Encounter Summary ---
Author Organization [facility] Address [address] [place] [address] Care Team Providers Care Re Recording Mixer Name Role Phone Uli Salcedo Unavailable [phone] Rad Galvan MD Primary Care Provider [phone] Encounter Details Date Type Department Care Team (Late st Contact Info) Description 08/09/2025 Orders Only [facility] [place] [address] [place] [address] Linda Garcia, RN CH-ADULT ECMO [...] PM EDT Appointment Cardiac Imaging [address] [place] [address] 09/16/2025 4:00 PM EDT Office Visit [facility] [place] [address] [place] [address] Elvin Schuler MD [address] [place] [address] 10/17/2025 11:40 AM EST Office Visit [facility] Nephrology, Bone & Mineral Metabolism [address] [facility], [address] [place] [address] Azael Mooney MD [address] [place] [address] Scheduled Orders Name Type Priority [...] documented as of this encounter Care Teams Re Recording Mixer Relationship Specialty Start Date End Date Rad Galvan MD [address] [place] [address] PCP - General 04/08/25 Uli Salcedo PA [address] [place] [address] Referring Physician 02/03/25 documented as of this encounter
--- OUTSIDE RECORDS SUMMARY | 2025-08-30 08:11 | XMS_ITS | Clinical Summary ---
Author Organization [facility] Address [address] [place] [address] Care Team Providers Care Patient Representative Name Role Phone Uli Salcedo Unavailable [phone] Rad Galvan MD Primary Care Provider [phone] Allergies Active Allergy Reactions Criticality Noted Date [...] 08/22/2025 2:00 PM EDT Office Visit [facility] [place] [facility]eral Met[facility] [address], [address] [place] [address] Lenore Aviles MD Obesity (BMI 35.0-39.9 without comorbidity) (Primary Dx); Chronic systolic congestive heart failure (CMS/HCC); Stage 3b chronic kidney disease (CMS/HCC) 08/22/2025 Travel 08/15/2025 11:00 AM EDT Ancillary Procedure [facility] 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 [place] [address] Elvin Schulre MD HCN - Patient Message 08/09/2025 Travel 08/09/2025 Orders Only [facility] [address] [place] [address] Linda Garcia, hair dryer combined systolic and diastolic congestive heart failure (CMS/HCC) (Primary Dx) 08/04/2025 Refill [facility] 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 [place] [address] Yaritza Johnson RN 07/22/2025 Telephone [facility] [address], [address] [place] [address] Chika Orellana APRN 07/15/2025 10:30 AM EDT Ancillary Procedure [facility] 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 [address] Elvin Schuler MD Chronic combined systolic and diastolic congestive heart failure (CMS/HCC) (Primary Dx); Benign hypertensive kidney disease with chronic kidney disease stage I through stage IV, or unspecified 07/08/2025 Travel 06/17/2025 Telephone [facility] [address] [place] [address] Elvin Schuler MD HCN - Patient Message 06/16/2025 Telephone [facility] [address] [place] [address] Elvin Schuler MD HCN - Patient Message 06/15/2025 8:00 AM EDT Ancillary Procedure [facility] [address] [place] [address] Chronic combined systolic and diastolic congestive heart [...] PM EDT Appointment Cardiac Imaging [address] [place] [address] 09/16/2025 4:00 PM EDT Office Visit [facility] [place] [facility] [address] [place] [address] Elvin Schuler MD [address] [place] [address] 10/17/2025 11:40 AM EST Office Visit [facility] Nephrology, Bone & Mineral Metabolism [address], [address] [place] [address] Azael Mooney MD [address] [place] [address] Health Maintenance Due Date Last [...] 2007 [employer] Annual Wellness (AWV) 02/16/2025 02/17/2024 [id number] Vaccine ( - season) 2025 09/06/2022, 11/28/2021, [...] - 0.95 mg/L 08/22/2025 6:18 PM EDT [facility] Blood Venous blood specimen / Unknown Venipuncture / Unknown 08/22/2025 3:59 PM EDT 08/22/2025 3:59 PM EDT Lenore Cobos MD LAB BLOOD OR DERABLES Final Result [facility] [address] [place] [address] * Vitamin D 25 Hydroxy (08/22/2025 3:59 PM EDT) Pathologist [facility] Vitamin D 25 Hydroxy 61.8 20.0 - 80.0 ng/mL 08/22/2025 7:20 PM EDT [facility] Blood Venous blood specimen / Unknown Venipuncture / Unknown 08/22/2025 3:59 PM EDT 08/22/2025 3:59 PM EDT Narrative [facility] - 08/22/2025 7:20 PM EDT Testing performed on [employer]do [employer], standardized against NIST SRM [id number]. When testing [...] MD LAB BLOOD OR DERABLES Final Result [facility] [address] [place] [address] * (ABNORMAL) CBC W/O Differential (08/22/2025 3:59 PM EDT) WBC Count 7.37 3.70 - 10.30 10*3/uL LAB HEMATOLOGY METHOD 08/22/2025 5:23 PM EDT [facility] RBC Count 2.97(L) 3.90 - 5.20 10*6/uL LAB HEMATOLOGY METHOD 08/22/2025 5:23 PM EDT [facility] HGB 10.1(L) 11.2 - 15.7 g/dL LAB HEMATOLOGY METHOD 08/22/2025 5:23 PM EDT [facility] HCT 31.6(L) 34.0 - 45.0 % LAB HEMATOLOGY METHOD 08/22/2025 5:23 PM EDT [facility] Platelet Count 208 155 - 369 10*3/uL LAB HEMATOLOGY METHOD 08/22/2025 5:23 PM EDT [facility] MCV 106(H) 79 - 98 fL LAB HEMATOLOGY METHOD 08/22/2025 5:23 PM EDT [facility] MCH 34.0(H) 26.0 - 32.0 pg LAB HEMATOLOGY METHOD 08/22/2025 5:23 PM EDT [facility] MCHC 32.0 30.7 - 35.5 g/dL LAB HEMATOLOGY METHOD 08/22/2025 5:23 PM EDT [facility] RDW 15.4(H) 11.5 - 14.5 % LAB HEMATOLOGY METHOD 08/22/2025 5:23 PM EDT [facility] MPV 10.1 8.8 - 12.5 fL LAB HEMATOLOGY METHOD 08/22/2025 5:23 PM EDT [facility] nRBC 0.0 <=0.0 per 100 WBCs LAB HEMATOLOGY METHOD 08/22/2025 5:23 PM EDT [facility] Blood Venous blood specimen / Unknown Venipuncture / Unknown 08/22/2025 3:59 PM EDT 08/22/2025 3:59 PM EDT us Lenore Cobos MD LAB BLOOD OR DERABLES Final Result Performing Organization Address City/[facility]/ZIP Co de Phone Number [facility] [address] [place] [address] * (ABNORMAL) PTH Intact Total (08/22/2025 3:59 PM EDT) Pathologist [facility] PTH Intact Total 242(H) 9 - 77 pg/mL 08/22/2025 6:11 PM EDT [facility] Blood Venous blood specimen / Unknown Venipuncture / Unknown 08/22/2025 3:59 PM EDT 08/22/2025 3:59 PM EDT Narrative [facility] - 08/22/2025 6:11 PM EDT Assay performed by immunoassay at the [facility]. Performed on Izquierdo Hr Clerk chemiluminescent immunoassay, tractable to the World Health Organization's first international standard for PTH from the [facility], Code 79/500. Results obtained from different test methods or kits cannot be used interchangeably. us Lenore Cobos MD LAB BLOOD OR DERABLES Final Result [facility] [address] [place] [address] * (ABNORMAL) Renal Function Panel, Plasma (08/22/2025 3:59 PM EDT) Pathologist [facility] Glucose, Plasma 178(H) 74 - 99 mg/dL 08/22/2025 5:45 PM EDT [facility] BUN, Plasma 32(H) 8 - 23 mg/dL 08/22/2025 5:45 PM EDT [facility] Creatinine, Plasma 1.55(H) 0.60 - 1.10 mg/dL 08/22/2025 5:45 PM EDT [facility] BUN/Creatinine Ratio 21 08/22/2025 5:45 PM EDT [facility] Sodium, Plasma 136 136 - 145 mmol/L 08/22/2025 5:45 PM EDT [facility] Potassium, Plasma 4.6 3.6 - 4.9 mmol/L 08/22/2025 5:45 PM EDT [facility] Chloride, Plasma 92(L) 97 - 107 mmol/L 08/22/2025 5:45 PM EDT [facility] CO2, Plasma 30(H) 22 - 29 mmol/L 08/22/2025 5:45 PM EDT [facility] Anion Gap 14 6 - 16 mmol/L 08/22/2025 5:45 PM EDT [facility] Total Calcium, Plasma 9.6 8.9 - 10.2 mg/dL 08/22/2025 5:45 PM EDT [facility] Phosphorus, Plasma 3.6 2.5 - 4.5 mg/dL 08/22/2025 5:45 PM EDT [facility] Albumin, Plasma 4.1 3.5 - 5.2 g/dL 08/22/2025 5:45 PM EDT [facility] eGFRcr 36.3 mL/min/1.7 3m*2 08/22/2025 5:45 PM EDT [facility] Comment:Reported eGFRcr in m L/min/1.73m2 is based the CKD-EPI 2020 equation that does not use a race coefficient. Blood Venous blood specimen / Unknown Venipuncture / Unknown 08/22/2025 3:59 PM EDT 08/22/2025 3:59 PM EDT us Lenore Cobos MD LAB BLOOD OR DERABLES Final Result [facility] [address] [place] [id number] * Albumin-creatinine ratio, urine, random (08/22/2025 3:48 PM EDT) Microalbumin, Urine <1.2 <1.9 mg/dL 08/22/2025 6:20 PM EDT [facility] Creatinine, Urine 19 mg/dL 08/22/2025 6:20 PM EDT [facility] Albumin/Creatin ine Ratio 08/22/2025 6:20 PM EDT [facility] Comment:Unable to calculate, at least one value is above or below the detection limit. Urine Urine specimen obtained by clean catch procedure / Unknown Non-blood Collection / Unknown 08/22/2025 3:48 PM EDT 08/22/2025 3:48 PM EDT us Lenore Cobos MD LAB URINE OR DERABLES Final Result Performing Organization Address [facility]/ZIP Co de Phone Number [facility] [address] [place] [address] * Protein, Random, Urine with Creatinine (08/22/2025 3:48 PM EDT) Protein, Urine 6 mg/dL 08/22/2025 5:50 PM EDT [facility] Creatinine, Urine 19 mg/dL 08/22/2025 5:50 PM EDT [facility] Protein/Creati nine Ratio 0.3 mg/mg Creat 08/22/2025 5:50 PM EDT [facility] Urine Urine specimen obtained by clean catch procedure / Unknown Non-blood Collection / Unknown 08/22/2025 3:48 PM EDT 08/22/2025 3:48 PM EDT us Lenore Cobos MD LAB URINE OR DERABLES Final Result Performing Organization Address City/[facility] Co de Phone Number [facility] [address] [place] [address] * (ABNORMAL) Urinalysis with reflex microscopic (Culture NOT Included) (08/22/2025 3:48 PM EDT) Color, Urine Yellow LAB URINALYSIS - AUTOMATED METHOD 08/22/2025 5:22 PM EDT [facility] Clarity, Urine Clear LAB URINALYSIS - AUTOMATED METHOD 08/22/2025 5:22 PM EDT [facility] Spec [place], Urine 1.009 1.005 - 1.030 LAB URINALYSIS - AUTOMATED METHOD 08/22/2025 5:22 PM EDT [facility] pH, Urine 7.0 5.0 - 8.0 LAB URINALYSIS - AUTOMATED METHOD 08/22/2025 5:22 PM EDT [facility] Protein, Urine Negative Negative mg/dL LAB URINALYSIS - AUTOMATED METHOD 08/22/2025 5:22 PM EDT [facility] Glucose, Urine 500(A) Negative mg/dL LAB URINALYSIS - AUTOMATED METHOD 08/22/2025 5:22 PM EDT [facility] Ketones, Urine Negative Negative mg/dL LAB URINALYSIS - AUTOMATED METHOD 08/22/2025 5:22 PM EDT [facility] Blood, Urine Negative Negative LAB URINALYSIS - AUTOMATED METHOD 08/22/2025 5:22 PM EDT [facility] Bilirubin, Urine Negative Negative LAB URINALYSIS - AUTOMATED METHOD 08/22/2025 5:22 PM EDT [facility] Urobilinogen, Urine 0.2 0.2 to 1.0 mg/dL LAB URINALYSIS - AUTOMATED METHOD 08/22/2025 5:22 PM EDT [facility] Leukocytes, Urine Negative Negative LAB URINALYSIS - AUTOMATED METHOD 08/22/2025 5:22 PM EDT [facility] Nitrite, Urine Negative Negative LAB URINALYSIS - AUTOMATED METHOD 08/22/2025 5:22 PM EDT [facility] Urine Urine specimen obtained by clean catch procedure / Unknown Non-blood Collection / Unknown 08/22/2025 3:48 PM EDT 08/22/2025 3:48 PM EDT Lenore Cobos MD LAB URINE OR DERABLES Final Result Performing Organization Address City/State/[facility] Co de Phone Number [facility] [address] [place] [address] * RIGHT HEART CATHETERIZATION (07/27/2025 9:01 AM [...] then carried out using a 7.5F VIP [place]-Po catheter. Pressures were recorded as the catheter [...] the patient was transferred back to the minilab operator holding area in good condition. Hemodynamic Data [...] POCT CO-Oximitry, Venous (07/27/2025 8:59 AM EDT) [facility] POCT OXYHEMOGLOBIN, VENOUS 62 40 - 70 % 07/27/2025 8:57 AM EDT [facility] Solar Sales Estimator ID Calier-Jael Ortiz ch 07/27/2025 8:57 AM EDT [facility] Device ID [id number] 07/27/2025 8:57 AM EDT [facility] POCT Sample Site PA 07/27/2025 8:57 AM EDT [facility] POCT Total Hemoglobin 10.4(L) 11.2 - 15.7 g/dL 07/27/2025 8:57 AM EDT [facility] Venous blood specimen / Unknown 07/27/2025 8:59 AM EDT 07/27/2025 8:57 AM EDT Elvin Schuler MD LAB POINT OF CARE T EST DOCKED DEVICE UNSOLICITED RESULTS Final Result [facility] [address] [place] [address] * (ABNORMAL) N-Terminal Probnp, Plasma (07/08/2025 3:19 PM EDT) Only the most recent of3 resultswithin the time period is included. N-Terminal, PROBNP, Plasma 1,459(H) 0 - 899 pg/mL 07/08/2025 4:28 PM EDT [facility] Blood Venous blood specimen / Unknown Venipuncture / Unknown 07/08/2025 3:19 PM EDT 07/08/2025 3:54 PM EDT Chika Orellana APRN LAB BLOOD ORDERABLES Final Result [facility] [address] [place] [address] * (ABNORMAL) Comprehensive metabolic panel (07/08/2025 3:19 PM EDT) Glucose, Plasma 84 74 - 99 mg/dL 07/08/2025 4:28 PM EDT [facility] BUN, Plasma 52(H) 8 - 23 mg/dL 07/08/2025 4:28 PM EDT [facility] Creatinine, Plasma 1.80(H) 0.60 - 1.10 mg/dL 07/08/2025 4:28 PM EDT [facility] BUN/Creatinine Ratio 29 07/08/2025 4:28 PM EDT [facility] Sodium, Plasma 130(L) 136 - 145 mmol/L 07/08/2025 4:28 PM EDT [facility] Potassium, Plasma 3.7 3.6 - 4.9 mmol/L 07/08/2025 4:28 PM EDT [facility] Chloride, Plasma 87(L) 97 - 107 mmol/L 07/08/2025 4:28 PM EDT [facility] CO2, Plasma 28 22 - 29 mmol/L 07/08/2025 4:28 PM EDT [facility] Anion Gap 15 6 - 16 mmol/L 07/08/2025 4:28 PM EDT [facility] Total Calcium, Plasma 9.4 8.9 - 10.2 mg/dL 07/08/2025 4:28 PM EDT [facility] Total Protein 8.0(H) 6.3 - 7.9 g/dL 07/08/2025 4:28 PM EDT [facility] Albumin, Plasma 4.4 3.5 - 5.2 g/dL 07/08/2025 4:28 PM EDT [facility] AST, Plasma 40(H) 10 - 35 U/L 07/08/2025 4:28 PM EDT [facility] Comment:Hemolyzed, result ma y be falsely increased. ALT, Plasma 19 10 - 35 U/L 07/08/2025 4:28 PM EDT [facility] Alkaline Phosphatase, Plasma 202(H) 46 - 142 U/L 07/08/2025 4:28 PM EDT [facility] Total Bilirubin, Plasma 0.8 0.2 - 1.1 mg/dL 07/08/2025 4:28 PM EDT [facility] eGFRcr 30.4 mL/min/1.7 3m*2 07/08/2025 4:28 PM EDT [facility] Comment:Reported eGFRcr in m L/min/1.73m2 is based the CKD-EPI 2020 equation that does not use a race coefficient. Blood Venous blood specimen / Unknown Venipuncture / Unknown 07/08/2025 3:19 PM EDT 07/08/2025 3:54 PM EDT us Chika Orellana [employer] LAB BLOOD ORDERABLES Final Result [facility] [address] [place] [address] * (ABNORMAL) Basic Metabolic Panel, Plasma (06/23/2025 [...] ORDERABLES Final R esult EXTERNAL LAB * [place] Hepatitis C Antibody (11/26/2020 6:51 PM EST) [place] Hepatitis C Ab NEGATIVE Reference Range: Negative SUNQUEST 11/26/2020 6:51 PM EST 11/26/2020 7:09 PM EST Justo Morse MD LAB BLOOD ORDERABLES Final Re sult SUNQUEST from Last 3 Months or Most Recently Relevant to Health Maintenance Insurance MEDICARE Advance Directives Documents on File Type Date Recorded 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 Yes Healthcare Agents on File Name Relationship Healthcare Agent Relationshi p Communication Yennifer Edwards Daughter Next of Kin Care Teams Patient Representative Relationship Specialty Start Date End Date Rad Galvan MD [address] [place] [address] PCP - General 04/08/25 Uli Salcedo PA [address] [place] [address] Referring Physician 02/03/25
--- OUTSIDE RECORDS SUMMARY | 2025-08-30 08:11 | XMS_ITS | Encounter Summary ---
Author Organization [facility] Address [address] [id number] Care Team Providers Care Pressure Steamer Tender Name Role Phone Uli Salcedo Unavailable [phone] Rad Galvan MD Primary Care Provider [phone] Reason for Visit * Reason Onset Date Comments Med Refill 08/04/2025 Encounter Details Date Type Department Care Team (Late st Contact Info) Description 08/04/2025 Refill [facility] [address] [place] [address] Yaritza Johnson, RN [facility] [address] [place] [address] Social History Tobacco Use Types Packs/Day Years [...] PM EDT Appointment Cardiac Imaging [address] [place] [address] 09/16/2025 4:00 PM EDT Office Visit [facility] [address] [place] [address] Elvin Schuler MD [address] [place] [address] 10/17/2025 11:40 AM EST Office Visit [facility] Nephrology, Bone & Mineral Metabolism [address] [place] [address] Azael Mooney MD [address] [place] [address] documented as of this encounter [...] documented as of this encounter Care Teams Pressure Steamer Tender Relationship Specialty Start Date End Date Rad Galvan MD [address] [place] [address] PCP - General 04/08/25 Uli Salcedo PA [address] [place] [address] Referring Physician 02/03/25 documented as of this encounter
--- OUTSIDE RECORDS SUMMARY | 2025-08-30 08:11 | XMS_ITS | Encounter Summary ---
Author Organization [facility] Address [address] [place] [address] Care Team Providers Care Manager Consumer Insights Name Role Phone Uli Salcedo Unavailable [phone] Rad Galvan MD Primary Care Provider Reason for Referral * Imaging (Routine) - Pending Review Specialty Diagnoses / Procedures Referred By Contac t Referred To Contact Cardiology Diagnoses Chronic combined systolic and diastolic congestive heart failure Procedures Echo, Adult Transthoracic Complete Elvin Schuler MD [address] [place] [address] Phone: tel: fax: Referral ID Status Reason Start Date Expiration Date Visits Requested Visits Authorized [id number] Pending Review Perform Procedure 07/27/2025 01/26/2027 1 1 Encounter Details Date Type Department Care Team (Late st Contact Info) Description 07/27/2025 Telephone [facility] [address] [facility] [place] [address] Yaritza Johnson, RN [facility] [address] [place] [address] Social History Tobacco Use Types Packs/Day Years [...] PM EDT Appointment Cardiac Imaging [address] [place] [address] 09/16/2025 4:00 PM EDT Office Visit [facility] [address] [place] [address] Elvin Schuler MD [address] [place] [address] 10/17/2025 11:40 AM EST Office Visit [facility] Nephrology, Bone & Mineral Metabolism [address], [address] [place] [address] Azael Mooney MD [address] [place] [address] Scheduled Orders Name Type Priority [...] as of this encounter Care Teams Manager Consumer Insights Relationship Specialty Start Date End Date Rad Galvan MD [address] [place] [address] PCP - General 04/08/25 Uli Salcedo PA [address] [place] [address] Referring Physician 02/03/25 documented as of this encounter
[2025-08-30 08:29] LABS: Hematocrit 30.0 % (37.0-47.0); Hemoglobin 10.2 g/dL (12.2-16.2); Immature Granulocytes % 0.3 %; Mean Corpuscular HGB Conc 34.0 g/dL (31.8-35.4); Mean Corpuscular Hemoglobin 35.1 pg (27.0-31.2); Mean Corpuscular Volume 103.1 fl (81-99); Nucleated Red Blood Cells % 0 %; Platelet Count 177 K/mm3 (142-424); Red Blood Count 2.91 M/mm3 (4.20-5.40); Red Cell Distribution Width-SD 55.2 fL; White Blood Count 6.5 K/mm3 (4.8-10.8)
[2025-08-30 08:41] LABS: Ammonia 14 umol/L (9-30)
[2025-08-30 08:50] LABS: INR 1.30 (0.9-1.1); Prothrombin Time 14.2 seconds (10.1-12.5)
[2025-08-30 09:57] LABS: Alanine Aminotransferase 23 U/L (12-78); Albumin Level 3.8 g/dl (3.5-5.0); Albumin/Globulin Ratio 1.4 (1.1-1.8); Alkaline Phosphatase 239 U/L (38-126); Anion Gap 14.0 mEq/L (5-15); Aspartate Amino Transferase 34 U/L (14-36); Bilirubin,Direct 0.7 mg/dl (0.0-0.4); Bilirubin,Indirect 0.4 mg/dL (0.0-0.9); Bilirubin,Total 1.1 mg/dl (0.2-1.3); Bilirubin,Unconjugated 0.4 mg/dL (0.0-1.1); Blood Urea Nitrogen 36 mg/dl (7-17); Calcium 9.0 mg/dl (8.4-10.2); Carbon Dioxide 28 mmol/L (22.0-30.0); Chloride 93 mmol/L (98-107); Creatinine,Serum 1.20 mg/dl (0.52-1.04); Estimated Glomerular Filt Rate 45 ml/min (>60); GFR (African American) 54 ML/MIN (>60); Globulin 2.8 g/dL (1.3-3.2); Glucose 114 mg/dl (74-100); Potassium 4.0 mmoL/L (3.5-5.1); Sodium 131 mmol/L (136-145); Total Protein,Serum 6.6 g/dl (6.3-8.2)
[2025-08-30 10:10] LABS: Ferritin 28.5 ng/ml (11.1-264)
[2025-08-30 12:25] LABS: Iron 74 ug/dL (37-170)
[2025-08-30 12:35] LABS: Total Iron Binding Capacity 358 ug/dL (265-497)
[2025-08-31 08:13] LABS: Immunoglobulin A, Qn 423 mg/dL (87-352); Immunoglobulin G, Qn 1352 mg/dL (586-1602); Immunoglobulin M, Qn 102 mg/dL (26-217)
[2025-08-31 14:18] LABS: Antinuclear Antibodies (ANA) Positive (Negative); Deamidated Gliadin Abs, IgA 5 units (0-19); Deamidated Gliadin Abs, IgG 2 units (0-19)
[2025-09-03 00:11] LABS: ALT (SGPT) P5P 20 IU/L (0-40); AST (SGOT) P5P 33 IU/L (0-40); Alpha 2-Macroglobulins, Qn 235 mg/dL (110-276); Bilirubin, Total 0.6 mg/dL (0.0-1.2); Cholesterol, Total 124 mg/dL (100-199); GGT 526 IU/L (0-60); Glucose 104 mg/dL (70-99); Triglycerides 157 mg/dL (0-149)
--- OUTSIDE RECORDS SUMMARY | 2025-10-15 20:00 | XMS_ITS | Clinical Summary ---
Author Organization Unknown Care Team Providers Care Working Foreman Name Role Phone MARYCARMEN MARTINEZ, CJ Unavailable Unavailable IVANNA GONZALES, JENNYFER Unavailable Unavailable Payers Payer Name Policy Type Policy Number Effective Date Expira tion Date [employer]AUTH [id number] Problems Condition Name Condition Details Condition Category Status Onset Date Resolution Date Last Treatment Date Treating Clinician Comments ANEMIA, UNSPECIFIED Active 08-10 00:00: 00 Allergies, Adverse Reactions, Alerts Allergy Name Allergy Type Status Severity Reaction(s) Onset Date Inactive Date Treating Clinician Comments METOCLOPRAMI DE Propensity to adverse reactions Active 08-18 13:35: 03 EMPAGLIFLOZI N Propensity to adverse reactions Active 08-18 13:35: 15 RITALIN Propensity to adverse reactions Active 08-18 13:35: 21 Vital Signs Vital Name Observation Time Observation Value Commen ts Temperature 2025-08-22 08:56:00.000 97.5 [degF] Temperature 2025-08-19 13:44:00.000 98 [degF] BMI (%) 2025-08-22 08:40:49.000 42 kg/m2 Height 2025-08-22 08:40:39.000 61 [in_us] Pulse 2025-08-22 08:56:00.000 62 /min Pulse 2025-08-19 13:44:00.000 72 /min O2 Saturation (%) 2025-08-19 13:44:00.000 94 % Respirations 2025-08-22 08:56:00.000 18 /min Respirations 2025-08-19 13:44:00.000 18 /min Weight (lbs) 2025-08-22 08:40:49.000 225 [lb_av] Systolic Blood Pressure 2025-08-22 08:56:00.000 92 mm[ Hg] Systolic Blood Pressure 2025-08-19 13:44:00.000 108 mm [Hg] Diastolic Blood Pressure 2025-08-22 08:56:00.000 54 mm [Hg] Diastolic Blood Pressure 2025-08-19 13:44:00.000 62 mm [Hg] Plan of Treatment Planned Activity Planned Date Details Comments Future Scheduled Test RN TO OBSE RVE, ASSESS, EVALUATE, AND DEVELOP AN INDIVIDUALIZED PLAN OF CARE. AGENCY MAY ACCEPT ORDERS FROM CONSULTING PHYSICIANS ALSO DR HERNANDEZ AT PARAMEDICAL AIDE TO OBSERVE AND ASSESS, ELECTRIC ORGAN ASSEMBLER AND CHECKER/DRUM BUILDER TO OBSERVE FOR RISK FOR FALLS AND INSTRUCT IN FALL PREVENTION, HOME SAFETY, MEDICATION MANAGEMENT, INFECTION PREVENTION, AND NUTRITION MANAGEMENT. RN/ELECTRIC ORGAN ASSEMBLER AND CHECKER/DRUM BUILDER NURSE MAY PERFORM O2 SATURATION LEVEL ON ADMISSION AND PRN FOR RN TO ASSESS/ELECTRIC ORGAN ASSEMBLER AND CHECKER TO OBSERVE PATIENT, WITH NOTIFICATION TO THE PHYSICIAN IF SATURATION IS 90% IN THE ABSENCE OF MORE SPECIFIC PARAMETERS FROM THE PHYSICIAN. AGENCY MAY PERFORM A RESUMPTION OF CARE VISIT FOLLOWING ANY HOSPITAL ADMISSION. RN/ELECTRIC ORGAN ASSEMBLER AND CHECKER/DRUM BUILDER TO MONITOR CO-MORBID CONDITIONS LISTED ON THE PLAN OF CARE AND ANY NEW CONDITIONS THAT PRESENT THEMSELVES DURING THIS EPISODE TO IDENTIFY CHANGES AND INTERVENE TO MINIMIZE COMPLICATIONS. [code = RN TO OBSERVE, ASSESS, EVALUATE, AND DEVELOP AN INDIVIDUALIZED PLAN OF CARE. AGENCY MAY ACCEPT ORDERS FROM CONSULTING PHYSICIANS ALSO DR HERNANDEZ AT PARAMEDICAL AIDE TO OBSERVE AND ASSESS, ELECTRIC ORGAN ASSEMBLER AND CHECKER/DRUM BUILDER TO OBSERVE FOR RISK FOR FALLS AND INSTRUCT IN FALL PREVENTION, HOME SAFETY, MEDICATION MANAGEMENT, INFECTION PREVENTION, AND NUTRITION MANAGEMENT. RN/ELECTRIC ORGAN ASSEMBLER AND CHECKER/DRUM BUILDER NURSE MAY PERFORM O2 SATURATION LEVEL ON ADMISSION AND PRN FOR RN TO ASSESS/ELECTRIC ORGAN ASSEMBLER AND CHECKER TO OBSERVE PATIENT, WITH NOTIFICATION TO THE PHYSICIAN IF SATURATION IS 90% IN THE ABSENCE OF MORE SPECIFIC PARAMETERS FROM THE PHYSICIAN. AGENCY MAY PERFORM A RESUMPTION OF CARE VISIT FOLLOWING ANY HOSPITAL ADMISSION. RN/ELECTRIC ORGAN ASSEMBLER AND CHECKER/DRUM BUILDER TO MONITOR CO-MORBID CONDITIONS LISTED ON THE PLAN OF CARE AND ANY NEW CONDITIONS THAT PRESENT THEMSELVES DURING THIS EPISODE TO IDENTIFY CHANGES AND INTERVENE TO MINIMIZE COMPLICATIONS.] Future Scheduled Test RISK FOR H OSPITALIZATION; RN TO ASSESS/TEACH, DRUM BUILDER/ELECTRIC ORGAN ASSEMBLER AND CHECKER TO OBSERVE/TEACH PATIENT/CAREGIVER ON RISK FOR HOSPITALIZATION/EMERGENCY ROOM VISITS, TEACH SIGNS AND SYMPTOMS THAT PUT PATIENT AT RISK, WHEN TO NOTIFY NURSE/PHYSICIAN OF COMPLICATIONS/DECLINE, AND WHEN TO CALL 911. [code = RISK FOR HOSPITALIZATION; RN TO ASSESS/TEACH, DRUM BUILDER/ELECTRIC ORGAN ASSEMBLER AND CHECKER TO OBSERVE/TEACH PATIENT/CAREGIVER ON RISK FOR HOSPITALIZATION/EMERGENCY ROOM VISITS, TEACH SIGNS AND SYMPTOMS THAT PUT PATIENT AT RISK, WHEN TO NOTIFY NURSE/PHYSICIAN OF COMPLICATIONS/DECLINE, AND WHEN TO CALL 911.] Future Scheduled Test CARDIOVASC ULAR SYSTEM; RN TO ASSESS/TEACH, ELECTRIC ORGAN ASSEMBLER AND CHECKER/DRUM BUILDER TO OBSERVE/TEACH RELATED TO ALTERED CARDIOVASCULAR STATUS TO MINIMIZE COMPLICATIONS AND REDUCE HOSPITALIZATION. [code = CARDIOVASCULAR SYSTEM; RN TO ASSESS/TEACH, ELECTRIC ORGAN ASSEMBLER AND CHECKER/DRUM BUILDER TO OBSERVE/TEACH RELATED TO ALTERED CARDIOVASCULAR STATUS TO MINIMIZE COMPLICATIONS AND REDUCE HOSPITALIZATION.] Future Scheduled Test HEART FAIL URE; RN TO ASSESS/TEACH, ELECTRIC ORGAN ASSEMBLER AND CHECKER/DRUM BUILDER TO OBSERVE/TEACH CARDIOPULMONARY SYSTEM TO IDENTIFY SIGNS [...] [code = HEART FAILURE; RN TO ASSESS/TEACH, ELECTRIC ORGAN ASSEMBLER AND CHECKER/DRUM BUILDER TO OBSERVE/TEACH CARDIOPULMONARY SYSTEM TO IDENTIFY SIGNS [...] N MANAGEMENT; RN TO ASSESS AND TEACH/ ELECTRIC ORGAN ASSEMBLER AND CHECKER /DRUM BUILDER TO OBSERVE AND TEACH WARNING SIGNS AND SYMPTOMS TO AVOID HOSPITALIZATION. [code = HYPOTENSION MANAGEMENT; RN TO ASSESS AND TEACH/ ELECTRIC ORGAN ASSEMBLER AND CHECKER /DRUM BUILDER TO OBSERVE AND TEACH WARNING SIGNS AND SYMPTOMS TO AVOID HOSPITALIZATION.] Future Scheduled Test ARRHYTHMIA MANAGEMENT; RN TO ASSESS AND TEACH, ELECTRIC ORGAN ASSEMBLER AND CHECKER/DRUM BUILDER TO OBSERVE AND TEACH WARNING SIGNS AND SYMPTOMS TO AVOID HOSPITALIZATION. [code = ARRHYTHMIA MANAGEMENT; RN TO ASSESS AND TEACH, ELECTRIC ORGAN ASSEMBLER AND CHECKER/DRUM BUILDER TO OBSERVE AND TEACH WARNING SIGNS AND SYMPTOMS TO AVOID HOSPITALIZATION.] Future Scheduled Test NEUROLOGIC AL SYSTEM MANAGEMENT; RN TO ASSESS AND TEACH, DRUM BUILDER/ELECTRIC ORGAN ASSEMBLER AND CHECKER TO OBSERVE AND TEACH RELATED TO ALTERED NEUROLOGICAL STATUS TO MINIMIZE COMPLICATIONS AND REDUCE HOSPITALIZATION. [code = NEUROLOGICAL SYSTEM MANAGEMENT; RN TO ASSESS AND TEACH, DRUM BUILDER/ELECTRIC ORGAN ASSEMBLER AND CHECKER TO OBSERVE AND TEACH RELATED TO ALTERED NEUROLOGICAL STATUS TO MINIMIZE COMPLICATIONS AND REDUCE HOSPITALIZATION.] Future Scheduled Test SEIZURE DI SORDER MANAGEMENT; RN/DRUM BUILDER/ELECTRIC ORGAN ASSEMBLER AND CHECKER TO PROVIDE INSTRUCTION REGARDING MANAGEMENT OF SEIZURE DISORDER AND SEIZURE PRECAUTIONS. [code = SEIZURE DISORDER MANAGEMENT; RN/DRUM BUILDER/ELECTRIC ORGAN ASSEMBLER AND CHECKER TO PROVIDE INSTRUCTION REGARDING MANAGEMENT OF SEIZURE DISORDER AND SEIZURE PRECAUTIONS.] Future Scheduled Test DIABETES M ANAGEMENT; RN TO ASSESS AND TEACH, DRUM BUILDER/ELECTRIC ORGAN ASSEMBLER AND CHECKER TO OBSERVE AND TEACH INSTRUCTIONS OF DIABETIC CARE TO INCLUDE: DIET CARDIAC DIABETIC SKIN CARE, SIGNS AND SYMPTOMS OF HYPO/HYPERGLYCEMIA, PROPER ADMINISTRATION OF DIABETIC MEDICATION. RN/DRUM BUILDER/ELECTRIC ORGAN ASSEMBLER AND CHECKER TO INSTRUCT ON DIABETIC FOOT CARE AND MONITOR FOR SKIN LESIONS ON LOWER EXTREMITIES. BLOOD GLUCOSE TESTING FREQ. RN TO ASSESS AND TEACH, DRUM BUILDER/ELECTRIC ORGAN ASSEMBLER AND CHECKER TO OBSERVE AND TEACH PATIENT/CAREGIVER ABILITY TO PERFORM AND RECORD BLOOD GLUCOSE TESTING ORDERED AND TO REPORT ABNORMAL FINDINGS TO PHYSICIAN. RN/DRUM BUILDER/ELECTRIC ORGAN ASSEMBLER AND CHECKER MAY PERFORM BLOOD GLUCOSE TEST NEEDED. RN/DRUM BUILDER/ELECTRIC ORGAN ASSEMBLER AND CHECKER TO REPORT TO PHYSICIAN BLOOD GLUCOSE READINGS GREATER THAN 250 OR LESS THAN 80 RN/DRUM BUILDER/ELECTRIC ORGAN ASSEMBLER AND CHECKER TO INSTRUCT PATIENT ON IMPORTANCE OF HGBA1C MONITORING, KIDNEY FUNCTION TEST, EYE AND FOOT EXAMS. [code = DIABETES MANAGEMENT; RN TO ASSESS AND TEACH, DRUM BUILDER/ELECTRIC ORGAN ASSEMBLER AND CHECKER TO OBSERVE AND TEACH INSTRUCTIONS OF DIABETIC CARE TO INCLUDE: DIET CARDIAC DIABETIC SKIN CARE, SIGNS AND SYMPTOMS OF HYPO/HYPERGLYCEMIA, PROPER ADMINISTRATION OF DIABETIC MEDICATION. RN/DRUM BUILDER/ELECTRIC ORGAN ASSEMBLER AND CHECKER TO INSTRUCT ON DIABETIC FOOT CARE AND MONITOR FOR SKIN LESIONS ON LOWER EXTREMITIES. BLOOD GLUCOSE TESTING FREQ. RN TO ASSESS AND TEACH, DRUM BUILDER/ELECTRIC ORGAN ASSEMBLER AND CHECKER TO OBSERVE AND TEACH PATIENT/CAREGIVER ABILITY TO PERFORM AND RECORD BLOOD GLUCOSE TESTING ORDERED AND TO REPORT ABNORMAL FINDINGS TO PHYSICIAN. RN/DRUM BUILDER/ELECTRIC ORGAN ASSEMBLER AND CHECKER MAY PERFORM BLOOD GLUCOSE TEST NEEDED. RN/DRUM BUILDER/ELECTRIC ORGAN ASSEMBLER AND CHECKER TO REPORT TO PHYSICIAN BLOOD GLUCOSE READINGS GREATER THAN 250 OR LESS THAN 80 RN/DRUM BUILDER/ELECTRIC ORGAN ASSEMBLER AND CHECKER TO INSTRUCT PATIENT ON IMPORTANCE OF HGBA1C MONITORING, KIDNEY FUNCTION TEST, EYE AND FOOT EXAMS.] Future Scheduled Test GENITOURIN FELIX MANAGEMENT; RN TO ASSESS AND TEACH, ELECTRIC ORGAN ASSEMBLER AND CHECKER/DRUM BUILDER TO OBSERVE AND TEACH RELATED TO ALTERED GENITOURINARY STATUS TO MINIMIZE COMPLICATIONS AND REDUCE HOSPITALIZATION. [code = GENITOURINARY MANAGEMENT; RN TO ASSESS AND TEACH, ELECTRIC ORGAN ASSEMBLER AND CHECKER/DRUM BUILDER TO OBSERVE AND TEACH RELATED TO ALTERED GENITOURINARY STATUS TO MINIMIZE COMPLICATIONS AND REDUCE HOSPITALIZATION.] Future Scheduled Test URINARY TR ACT INFECTION MANAGEMENT; RN/DRUM BUILDER/ELECTRIC ORGAN ASSEMBLER AND CHECKER TO PROVIDE SKILLED TEACHING AND SELF- CARE MANAGEMENT RELATED TO UTI TO MINIMIZE COMPLICATIONS AND REDUCE THE RISK OF HOSPITALIZATION. [code = URINARY TRACT INFECTION MANAGEMENT; RN/DRUM BUILDER/ELECTRIC ORGAN ASSEMBLER AND CHECKER TO PROVIDE SKILLED TEACHING AND SELF- CARE MANAGEMENT RELATED TO UTI TO MINIMIZE COMPLICATIONS AND REDUCE THE RISK OF HOSPITALIZATION.] Future Scheduled Test GASTROINTE STINAL MANAGEMENT; RN TO ASSESS AND TEACH, DRUM BUILDER/ELECTRIC ORGAN ASSEMBLER AND CHECKER TO OBSERVE AND TEACH RELATED TO ALTERED GASTROINTESTINAL STATUS TO MINIMIZE COMPLICATIONS AND REDUCE HOSPITALIZATION. [code = GASTROINTESTINAL MANAGEMENT; RN TO ASSESS AND TEACH, DRUM BUILDER/ELECTRIC ORGAN ASSEMBLER AND CHECKER TO OBSERVE AND TEACH RELATED TO ALTERED GASTROINTESTINAL STATUS TO MINIMIZE COMPLICATIONS AND REDUCE HOSPITALIZATION.] Future Scheduled Test RN TO ASSE SS AND TEACH, DRUM BUILDER/ELECTRIC ORGAN ASSEMBLER AND CHECKER TO OBSERVE AND TEACH AND PROVIDE EDUCATION ON GI BLEEDING. [code = RN TO ASSESS AND TEACH, DRUM BUILDER/ELECTRIC ORGAN ASSEMBLER AND CHECKER TO OBSERVE AND TEACH AND PROVIDE EDUCATION ON GI BLEEDING.] Future Scheduled Test FALL REDUC TION MANAGEMENT; RN TO ASSESS AND OBSERVE, ELECTRIC ORGAN ASSEMBLER AND CHECKER/DRUM BUILDER TO OBSERVE FALL RISK FACTORS AND EDUCATE PATIENT/CAREGIVER ON STRATEGIES TO MINIMIZE THE RISK OF FALLING. [code = FALL REDUCTION MANAGEMENT; RN TO ASSESS AND OBSERVE, ELECTRIC ORGAN ASSEMBLER AND CHECKER/DRUM BUILDER TO OBSERVE FALL RISK FACTORS AND EDUCATE PATIENT/CAREGIVER ON STRATEGIES TO MINIMIZE THE RISK OF FALLING.] Future Scheduled Test PHYSICAL T HERAPY EVALUATION PERFORMED. NO ADDITIONAL VISITS REQUIRED. PROVIDED SKILLED INTERVENTION INCLUDING HEP [code = PHYSICAL THERAPY EVALUATION PERFORMED. NO ADDITIONAL VISITS REQUIRED. PROVIDED SKILLED INTERVENTION INCLUDING HEP] Goal Patient Goal - TO FEEL STRON JACOBO [...] Goal - PATIENT/CAREGIVER WILL VERBALIZE/DEMONSTRATE UNDERSTANDING OF CARE AND MANAGEMENT OF URINARY TRACT INFECTION BY 60 DAYS Goal Provider Goal - [...] TO VERBALIZE / DEMONSTRATE UNDERSTANDING OF HEP Encounters Start Date/Time End Date/Time Encounter Type Admission Type Attending [facility] Care Department Encounter ID Discharge Date Discharge Status Discharge Condition Discharge Reason Percent Goals Met 2025-08-18 00:00:00 2025-10-16 00:00:00 Outpatient JENNYFER MOELLER [facility] [id number] [id number]
--- OUTSIDE RECORDS SUMMARY | 2025-10-15 20:00 | XMS_ITS | Clinical Summary ---
Author Organization Unknown Care Team Providers Care Performance Improvement Manager Name Role Phone MARYCARMEN MARTINEZ, CJ Unavailable Unavailable IVANNA GONZALES, JENNYFER Unavailable Unavailable Payers Payer Name Policy Type Policy Number Effective Date Expira tion Date [email or web address] [id number] Problems Condition Name Condition Details Condition Category [...] FROM CONSULTING PHYSICIANS ALSO DR HERNANDEZ AT [employer] [facility] TO OBSERVE AND ASSESS, COKE OVEN PATCHER/PENCIL SORTER TO OBSERVE FOR RISK FOR FALLS AND INSTRUCT IN FALL PREVENTION, HOME SAFETY, MEDICATION MANAGEMENT, INFECTION PREVENTION, AND NUTRITION MANAGEMENT. RN/COKE OVEN PATCHER/PENCIL SORTER NURSE MAY PERFORM O2 SATURATION LEVEL ON ADMISSION AND PRN FOR RN TO ASSESS/COKE OVEN PATCHER TO OBSERVE PATIENT, WITH NOTIFICATION TO THE PHYSICIAN IF SATURATION IS 90% IN THE ABSENCE OF MORE SPECIFIC PARAMETERS FROM THE PHYSICIAN. AGENCY MAY PERFORM A RESUMPTION OF CARE VISIT FOLLOWING ANY HOSPITAL ADMISSION. RN/COKE OVEN PATCHER/PENCIL SORTER TO MONITOR CO-MORBID CONDITIONS LISTED ON THE PLAN OF CARE AND ANY NEW CONDITIONS THAT PRESENT THEMSELVES DURING THIS EPISODE TO IDENTIFY CHANGES AND INTERVENE TO MINIMIZE COMPLICATIONS. [code = RN TO OBSERVE, ASSESS, EVALUATE, AND DEVELOP AN INDIVIDUALIZED PLAN OF CARE. AGENCY MAY ACCEPT ORDERS FROM CONSULTING PHYSICIANS ALSO DR HERNANDEZ AT [employer] TO OBSERVE AND ASSESS, COKE OVEN PATCHER/PENCIL SORTER TO OBSERVE FOR RISK FOR FALLS AND INSTRUCT IN FALL PREVENTION, HOME SAFETY, MEDICATION MANAGEMENT, INFECTION PREVENTION, AND NUTRITION MANAGEMENT. RN/COKE OVEN PATCHER/PENCIL SORTER NURSE MAY PERFORM O2 SATURATION LEVEL ON ADMISSION AND PRN FOR RN TO ASSESS/COKE OVEN PATCHER TO OBSERVE PATIENT, WITH NOTIFICATION TO THE PHYSICIAN IF SATURATION IS 90% IN THE ABSENCE OF MORE SPECIFIC PARAMETERS FROM THE PHYSICIAN. AGENCY MAY PERFORM A RESUMPTION OF CARE VISIT FOLLOWING ANY HOSPITAL ADMISSION. RN/COKE OVEN PATCHER/PENCIL SORTER TO MONITOR CO-MORBID CONDITIONS LISTED ON THE PLAN OF CARE AND ANY NEW CONDITIONS THAT PRESENT THEMSELVES DURING THIS EPISODE TO IDENTIFY CHANGES AND INTERVENE TO MINIMIZE COMPLICATIONS.] Future Scheduled Test RISK FOR H OSPITALIZATION; RN TO ASSESS/TEACH, PENCIL SORTER/COKE OVEN PATCHER TO OBSERVE/TEACH PATIENT/CAREGIVER ON RISK FOR HOSPITALIZATION/EMERGENCY ROOM VISITS, TEACH SIGNS AND SYMPTOMS THAT PUT PATIENT AT RISK, WHEN TO NOTIFY NURSE/PHYSICIAN OF COMPLICATIONS/DECLINE, AND WHEN TO CALL 911. [code = RISK FOR HOSPITALIZATION; RN TO ASSESS/TEACH, PENCIL SORTER/COKE OVEN PATCHER TO OBSERVE/TEACH PATIENT/CAREGIVER ON RISK FOR HOSPITALIZATION/EMERGENCY ROOM VISITS, TEACH SIGNS AND SYMPTOMS THAT PUT PATIENT AT RISK, WHEN TO NOTIFY NURSE/PHYSICIAN OF COMPLICATIONS/DECLINE, AND WHEN TO CALL 911.] Future Scheduled Test CARDIOVASC ULAR SYSTEM; RN TO ASSESS/TEACH, COKE OVEN PATCHER/PENCIL SORTER TO OBSERVE/TEACH RELATED TO ALTERED CARDIOVASCULAR STATUS TO MINIMIZE COMPLICATIONS AND REDUCE HOSPITALIZATION. [code = CARDIOVASCULAR SYSTEM; RN TO ASSESS/TEACH, COKE OVEN PATCHER/PENCIL SORTER TO OBSERVE/TEACH RELATED TO ALTERED CARDIOVASCULAR STATUS TO MINIMIZE COMPLICATIONS AND REDUCE HOSPITALIZATION.] Future Scheduled Test HEART FAIL URE; RN TO ASSESS/TEACH, COKE OVEN PATCHER/PENCIL SORTER TO OBSERVE/TEACH CARDIOPULMONARY SYSTEM TO IDENTIFY SIGNS [...] [code = HEART FAILURE; RN TO ASSESS/TEACH, COKE OVEN PATCHER/PENCIL SORTER TO OBSERVE/TEACH CARDIOPULMONARY SYSTEM TO IDENTIFY SIGNS [...] N MANAGEMENT; RN TO ASSESS AND TEACH/ COKE OVEN PATCHER /PENCIL SORTER TO OBSERVE AND TEACH WARNING SIGNS AND SYMPTOMS TO AVOID HOSPITALIZATION. [code = HYPOTENSION MANAGEMENT; RN TO ASSESS AND TEACH/ COKE OVEN PATCHER /PENCIL SORTER TO OBSERVE AND TEACH WARNING SIGNS AND SYMPTOMS TO AVOID HOSPITALIZATION.] Future Scheduled Test ARRHYTHMIA MANAGEMENT; RN TO ASSESS AND TEACH, COKE OVEN PATCHER/PENCIL SORTER TO OBSERVE AND TEACH WARNING SIGNS AND SYMPTOMS TO AVOID HOSPITALIZATION. [code = ARRHYTHMIA MANAGEMENT; RN TO ASSESS AND TEACH, COKE OVEN PATCHER/PENCIL SORTER TO OBSERVE AND TEACH WARNING SIGNS AND SYMPTOMS TO AVOID HOSPITALIZATION.] Future Scheduled Test NEUROLOGIC AL SYSTEM MANAGEMENT; RN TO ASSESS AND TEACH, PENCIL SORTER/COKE OVEN PATCHER TO OBSERVE AND TEACH RELATED TO ALTERED NEUROLOGICAL STATUS TO MINIMIZE COMPLICATIONS AND REDUCE HOSPITALIZATION. [code = NEUROLOGICAL SYSTEM MANAGEMENT; RN TO ASSESS AND TEACH, PENCIL SORTER/COKE OVEN PATCHER TO OBSERVE AND TEACH RELATED TO ALTERED NEUROLOGICAL STATUS TO MINIMIZE COMPLICATIONS AND REDUCE HOSPITALIZATION.] Future Scheduled Test SEIZURE DI SORDER MANAGEMENT; RN/PENCIL SORTER/COKE OVEN PATCHER TO PROVIDE INSTRUCTION REGARDING MANAGEMENT OF SEIZURE DISORDER AND SEIZURE PRECAUTIONS. [code = SEIZURE DISORDER MANAGEMENT; RN/PENCIL SORTER/COKE OVEN PATCHER TO PROVIDE INSTRUCTION REGARDING MANAGEMENT OF SEIZURE DISORDER AND SEIZURE PRECAUTIONS.] Future Scheduled Test DIABETES M ANAGEMENT; RN TO ASSESS AND TEACH, PENCIL SORTER/COKE OVEN PATCHER TO OBSERVE AND TEACH INSTRUCTIONS OF DIABETIC CARE TO INCLUDE: DIET CARDIAC DIABETIC SKIN CARE, SIGNS AND SYMPTOMS OF HYPO/HYPERGLYCEMIA, PROPER ADMINISTRATION OF DIABETIC MEDICATION. RN/PENCIL SORTER/COKE OVEN PATCHER TO INSTRUCT ON DIABETIC FOOT CARE AND MONITOR FOR SKIN LESIONS ON LOWER EXTREMITIES. BLOOD GLUCOSE TESTING FREQ. RN TO ASSESS AND TEACH, PENCIL SORTER/COKE OVEN PATCHER TO OBSERVE AND TEACH PATIENT/CAREGIVER ABILITY TO PERFORM AND RECORD BLOOD GLUCOSE TESTING ORDERED AND TO REPORT ABNORMAL FINDINGS TO PHYSICIAN. RN/PENCIL SORTER/COKE OVEN PATCHER MAY PERFORM BLOOD GLUCOSE TEST NEEDED. RN/PENCIL SORTER/COKE OVEN PATCHER TO REPORT TO PHYSICIAN BLOOD GLUCOSE READINGS GREATER THAN 250 OR LESS THAN 80 RN/PENCIL SORTER/COKE OVEN PATCHER TO INSTRUCT PATIENT ON IMPORTANCE OF HGBA1C MONITORING, KIDNEY FUNCTION TEST, EYE AND FOOT EXAMS. [code = DIABETES MANAGEMENT; RN TO ASSESS AND TEACH, PENCIL SORTER/COKE OVEN PATCHER TO OBSERVE AND TEACH INSTRUCTIONS OF DIABETIC CARE TO INCLUDE: DIET CARDIAC DIABETIC SKIN CARE, SIGNS AND SYMPTOMS OF HYPO/HYPERGLYCEMIA, PROPER ADMINISTRATION OF DIABETIC MEDICATION. RN/PENCIL SORTER/COKE OVEN PATCHER TO INSTRUCT ON DIABETIC FOOT CARE AND MONITOR FOR SKIN LESIONS ON LOWER EXTREMITIES. BLOOD GLUCOSE TESTING FREQ. RN TO ASSESS AND TEACH, PENCIL SORTER/COKE OVEN PATCHER TO OBSERVE AND TEACH PATIENT/CAREGIVER ABILITY TO PERFORM AND RECORD BLOOD GLUCOSE TESTING ORDERED AND TO REPORT ABNORMAL FINDINGS TO PHYSICIAN. RN/PENCIL SORTER/COKE OVEN PATCHER MAY PERFORM BLOOD GLUCOSE TEST NEEDED. RN/PENCIL SORTER/COKE OVEN PATCHER TO REPORT TO PHYSICIAN BLOOD GLUCOSE READINGS GREATER THAN 250 OR LESS THAN 80 RN/PENCIL SORTER/COKE OVEN PATCHER TO INSTRUCT PATIENT ON IMPORTANCE OF HGBA1C MONITORING, KIDNEY FUNCTION TEST, EYE AND FOOT EXAMS.] Future Scheduled Test GENITOURIN FELIX MANAGEMENT; RN TO ASSESS AND TEACH, COKE OVEN PATCHER/PENCIL SORTER TO OBSERVE AND TEACH RELATED TO ALTERED GENITOURINARY STATUS TO MINIMIZE COMPLICATIONS AND REDUCE HOSPITALIZATION. [code = GENITOURINARY MANAGEMENT; RN TO ASSESS AND TEACH, COKE OVEN PATCHER/PENCIL SORTER TO OBSERVE AND TEACH RELATED TO ALTERED GENITOURINARY STATUS TO MINIMIZE COMPLICATIONS AND REDUCE HOSPITALIZATION.] Future Scheduled Test URINARY TR ACT INFECTION MANAGEMENT; RN/PENCIL SORTER/COKE OVEN PATCHER TO PROVIDE SKILLED TEACHING AND SELF- CARE MANAGEMENT RELATED TO UTI TO MINIMIZE COMPLICATIONS AND REDUCE THE RISK OF HOSPITALIZATION. [code = URINARY TRACT INFECTION MANAGEMENT; RN/PENCIL SORTER/COKE OVEN PATCHER TO PROVIDE SKILLED TEACHING AND SELF- CARE MANAGEMENT RELATED TO UTI TO MINIMIZE COMPLICATIONS AND REDUCE THE RISK OF HOSPITALIZATION.] Future Scheduled Test GASTROINTE STINAL MANAGEMENT; RN TO ASSESS AND TEACH, PENCIL SORTER/COKE OVEN PATCHER TO OBSERVE AND TEACH RELATED TO ALTERED GASTROINTESTINAL STATUS TO MINIMIZE COMPLICATIONS AND REDUCE HOSPITALIZATION. [code = GASTROINTESTINAL MANAGEMENT; RN TO ASSESS AND TEACH, PENCIL SORTER/COKE OVEN PATCHER TO OBSERVE AND TEACH RELATED TO ALTERED GASTROINTESTINAL STATUS TO MINIMIZE COMPLICATIONS AND REDUCE HOSPITALIZATION.] Future Scheduled Test RN TO ASSE SS AND TEACH, PENCIL SORTER/COKE OVEN PATCHER TO OBSERVE AND TEACH AND PROVIDE EDUCATION ON GI BLEEDING. [code = RN TO ASSESS AND TEACH, PENCIL SORTER/COKE OVEN PATCHER TO OBSERVE AND TEACH AND PROVIDE EDUCATION ON GI BLEEDING.] Future Scheduled Test FALL REDUC TION MANAGEMENT; RN TO ASSESS AND OBSERVE, COKE OVEN PATCHER/PENCIL SORTER TO OBSERVE FALL RISK FACTORS AND EDUCATE PATIENT/CAREGIVER ON STRATEGIES TO MINIMIZE THE RISK OF FALLING. [code = FALL REDUCTION MANAGEMENT; RN TO ASSESS AND OBSERVE, COKE OVEN PATCHER/PENCIL SORTER TO OBSERVE FALL RISK FACTORS AND EDUCATE [...] End Date/Time Encounter Type Admission Type Attending [facility] [place] Facility Care Department Encounter ID Discharge Date Discharge Status Discharge Condition Discharge Reason Percent Goals Met 2025-08-18 00:00:00 2025-10-16 00:00:00 Outpatient JENNYFER MOELLER [facility] [id number] 100.00
== END 2025-08-30 23:59 | disposition home or self-care (01) ==
LOC: LAB 08:03
PROVIDERS: PCP Family Medicine; Visit Provider Nurse Practitioner Family
DX: K74.60 Unspecified cirrhosis of liver (principal)
CPT/HCPCS: 36415; 80053; 80074; 81256; 82103; 82104; 82105; 82140; 82164; 82172; 82247; 82248; 82390; 82465; 82728; 82784; 82947; 82977; 83010; 83521; 83540; 83550; 84450; 84460; 84478; 85025; 85610; 86015; 86038; 86231; 86258; 86364; 86376; 86381

== ENCOUNTER 2025-09-08 07:48 | Emergency (ER) | payer MEDICARE, SELFPAY ==
--- OUTSIDE RECORDS SUMMARY | 2025-07-13 09:00 | XMS_ITS | Encounter Summary ---
Author Organization [facility] Address [address] [id number] Care Team Providers Care Highway Maintenance Technician Name Role Phone Rad Galvan MD Primary Care Provider + Reason for Visit * Reason Comments Establish Care Patient complains of chest pressure * Consultation (Routine) - Closed Specialty Diagnoses / Procedures Referred By Regan greene Referred To Contact Cardiology Diagnoses TO EST CARE FOR HER OPTIMIZER Elvin Schuler MD [address] [place] [address] Phone: tel: [place]: [place] [address] [place] [address] [place] [address] Phone: tel: fax: Referral ID Status Reason Start Date Expiration Date Visits Re quested Visits Authorized [id number] Closed 03/22/2025 06/21/2026 1 1 Encounter Details Date Type Department Care Team (Late st Contact Info) Description 07/13/2025 9:00 AM EDT Office Visit [facility] CARDIOLOGY [address] [place] [address] [address] [phone] Sidney Barraza MD [address] [facility] [address] Chronic HFrEF (heart failure with reduced ejection [...] 07/13/25 DATE OF ADMISSION: (Not on file) [facility] C[facility] Rad Galvan MD [address] [facility] / [place] [address] Referring Provider: Elvin Schuler MD Chief Complaint [facility] Care Patient complains of chest pressure Problem List: Chronic systolic heart failure/HFrEF Initially diagnosed 2014 Biventricular ICD implant 05/09/2020- Dr. Armstrong Impulse dynamics September 2022 [facility] 07/05/2024: Mild disease in multiple vessels (20 to 40% severity) Echocardiogram 01/11/2025: EF 30%, moderate MR Cardio mems implant 04/01/2025 followed by [facility] 04/01/2025: mildly elevated reight and normal left [...] She was recently in the hospital in [place] for fluid overlaod with LE edema. She [...] 60 tablet, Rfl: 2 Comfort EZ Pen [place] 32G X 6 MM [facility], USE DIRECTED FOR insulin injections, Disp: 100 each, Rfl: 5 Continuous Glucose Recycling Attendant (FreeStyle Simón 3 [place]) device, Use 1 each Daily., Disp: 1 [...] 15 minutes., Disp: 30 tablet, Rfl: 0 [place]-3 Fatty Acids (fish oil) 1000 MG capsule [...] PROTIME No results found for: TSH , [id number] , T9NGKEG , THYROIDAB BiV ICD manual interrogation: RA [...] Valsartan, Metoprolol, Aldactone, Farxiga, Bumex, follows with [facility] Advanced Heart Failure - she is doing [...] Description 10/31/2025 11:00 AM EST Office Visit [facility] [address] [phone] Rad Galvan MD [address] [address] [...] documented as of this encounter Care Teams Highway Maintenance Technician Relationship Specialty Start Date End Date Rad Galvan MD [address] [facility] [place] [address] PCP - General Family Medicine 04/15/22 documented as of this encounter
--- OUTSIDE RECORDS SUMMARY | 2025-07-13 10:53 | XMS_ITS | Encounter Summary ---
Author Organization [facility] Address [address] [id number] Care Team Providers Care Carder Blankets Name Role Phone Rad Galvan MD Primary Care Provider + Reason for Visit * Diagnostic Imaging (Routine) - Closed Specialty Diagnoses / Procedures Referred By Contac t Referred To Contact Radiology Diagnoses S/P implantation of automatic cardioverter/defibrillator (AICD) Procedures XR chest pa and lateral Sidney Barraza MD [address] [place] [address] Phone: tel: fax: Referral ID Status Reason Start Date Expiration Date Visits Re quested Visits Authorized [id number] Closed 07/13/2025 10/12/2026 1 1 Encounter Details Date Type Department Care Team (Late st Contact Info) Description 07/13/2025 10:53 AM EDT - 07/13/2025 11:59 PM EDT Hospital Encounter [facility] XRAY [address] [place] [address] Sidney Barraza MD [address] [place] [address] Discharge Disposition: Home or Self Care Social [...] Not on file Sexual Orientation Straight 03/31/2025 7 :05 PM EDT documented as of this encounter Medications at Time of Discharge allopurinol (ZYLOPRIM) 100 MG tablet TAKE ONE TABLET BY MOUTH EVERY DAY 60 tablet 5 06/30/2025 atorvastatin (LIPITOR) 10 MG tabletIndications: Type 2 diabetes mellitus with hyperglycemia TAKE ONE TABLET BY MOUTH EVERY DAY 30 tablet 11 06/02/2025 bumetanide (BUMEX) 1 MG tablet TAKE TWO TABLETS BY MOUTH EVERY DAY 60 tablet 2 04/20/2025 Comfort EZ Pen [place] 32G X 6 MM misc USE DIRECTED FOR insulin injections 100 each 5 12/03/2024 Continuous Glucose Mobile Equipment Mechanic (FreeStyle Simón 3 [place]) deviceIndications: Type 2 diabetes mellitus with hypoglycemia without coma, with long-term current use of insulin,Type 2 diabetes mellitus with hyperglycemia, with long-term current use of insulin Use 1 each Daily. 1 each 02/11/2025 Continuous Glucose Sensor (FreeStyle Simón 3 Plus Sensor)Indications :Type 2 diabetes mellitus with hypoglycemia without coma, with long-term current use of insulin,Type 2 diabetes mellitus with hyperglycemia, with long-term current use of insulin Use Every 15 (Fifteen) Days. 2 each 02/11/2025 dapagliflozin Propanediol (Farxiga) 10 MG tablet Take by mouth. From cardio digoxin (LANOXIN) 125 MCG tabletIndications: Longstanding persistent atrial fibrillation TAKE ONE TABLET BY MOUTH EVERY DAY 30 tablet 5 06/30/2025 insulin aspart (NovoLOG FlexPen) 100 UNIT/ML solution pen-injector sc penIndications:Typ e 2 diabetes mellitus with hyperglycemia, with long-term current use of insulin Inject 8 Units under the skin into the appropriate area as directed As Needed (glucose >400). 3 mL 01/20/2025 insulin NPH-insulin regular (humuLIN 70/30,novoLIN 70/30) (70-30) 100 UNIT/ML injectionIndicatio ns:Type 2 diabetes mellitus with hyperglycemia, with long-term current use of insulin 40 units q AM and 40 units q PM 04/07/2025 loratadine (CLARITIN) 10 MG tabletIndications: Allergic rhinitis due to pollen TAKE ONE TABLET BY MOUTH EVERY DAY 30 tablet 11 05/28/2024 metoprolol succinate XL (TOPROL-XL) 25 MG 24 hr tablet Take 0.5 tablets by mouth Daily. 02/03/2025 multivitamin with minerals tablet tablet Take 1 tablet by mouth Daily. nitroglycerin (NITROSTAT) 0.[address] 1 tablet under the tongue Every 5 (Five) Minutes As Needed for Chest Pain. Take no more than 3 doses in 15 minutes. 30 tablet 11/18/2023 [place]-3 Fatty Acids (fish oil) 1000 MG capsule capsule Take 2 capsules by mouth Daily With Breakfast. pantoprazole (PROTONIX) 40 MG EC tabletIndications: Gastroesophageal reflux disease without esophagitis TAKE ONE TABLET BY MOUTH TWICE DAILY 60 tablet 11 06/02/2025 polyethylene glycol (MiraLax) 17 GM/SCOOP powderIndications: Drug-induced constipation Take 17 g by mouth Daily. 850 g 2 05/13/2023 potassium chloride (KLOR-CON M20) 20 MEQ CR tabletIndications: long term current use of diuretic TAKE ONE TABLET BY MOUTH TWICE DAILY 60 tablet 3 03/02/2025 rOPINIRole (REQUIP) 2 MG tabletIndications: Restless leg syndrome TAKE ONE TABLET BY MOUTH EVERY NIGHT 30 tablet 11 06/02/2025 Semaglutide,0.25 or 0.5MG/DOS, (OZEMPIC) 2 MG/3ML solution pen-injectorIndica tions:Type 2 diabetes mellitus with hyperglycemia, with long-term current use of insulin Inject 0.25 mg under the skin into the appropriate area as directed 1 (One) Time Per Week. 04/07/2025 spironolactone (ALDACTONE) 25 MG tablet TAKE ONE TABLET BY MOUTH EVERY DAY 90 tablet 1 06/30/2025 traMADol (ULTRAM) 50 MG tabletIndications: Chronic midline low back pain without sciatica Take 1 tablet by mouth Every 6 (Six) Hours As Needed for Moderate Pain. 120 tablet 3 04/12/2025 valsartan (Diovan) 40 MG tabletIndications: Chronic left ventricular systolic dysfunction Take 1 tablet by mouth 2 (Two) Times a Day. 01/17/2025 gabapentin (NEURONTIN) 600 MG tabletIndications: Diabetic peripheral neuropathy associated with type 2 diabetes mellitus Take 1 tablet by mouth 2 (Two) Times a Day. 60 tablet 2 04/07/2025 isosorbide mononitrate (IMDUR) 30 MG 24 hr tablet Take 1 tablet by mouth Daily. 5 PHENobarbital 32.4 MG tabletIndications: Seizure disorder TAKE THREE TABLETS BY MOUTH EVERY DAY AT BEDTIME 90 tablet 5 06/30/2025 5 potassium chloride ER (K-TAB) 20 MEQ tablet controlled-release ER tablet TAKE ONE TABLET BY MOUTH TWICE DAILY 120 tablet 5 06/30/2025 rivaroxaban (XARELTO) 20 MG tablet Take 1 tablet by mouth Daily. documented as of this encounter Plan of Treatment Upcoming Encounters Date Type Department Care Team (Late st Contact Info) Description 10/31/2025 11:00 AM EST Office Visit [facility] [address] [facility] [place] [address] Rad Galvan MD [address] [facility] [place] [address] documented as of this encounter Procedures Procedure Name Priority Date/Time Associated Diagnosis Comments XR CHEST PA AND LATERAL Routine 07/13/2025 11:02 AM EDT S/P implantation of automatic cardioverter/defibril lator (AICD) documented in this encounter Results * XR chest pa and lateral (07/13/2025 11:02 AM EDT) Anatomical Region Laterality Modality Body, Chest N/A Radiographic Gracie ging 07/13/2025 4:09 PM EDT Impressions 07/13/2025 4:13 PM EDT Impression: 1. Bilateral AICD with leads as above. 2. No acute cardiopulmonary process. Electronically Signed: Leonid Harris MD 07/13/2025 4:13 PM EDT Workstation ID: [id number] Narrative 07/13/2025 4:13 PM EDT XR CHEST PA AND LATERAL Date of Exam: 07/13/2025 10:56 AM EDT Indication: assess BIV ICD leads. Comparison: None available. Findings: There are bilateral AICD is noted. On the right dual-lead AICD noted with lead overlying the expected location of the right ventricle. On the left there is a AICD with leads overlying the coronary sinus, right atrium, and right ventricle. Lungs without consolidation. No pneumothorax or effusion. Osseous structures appear intact. CardioMEMS pulmonary arterial monitoring device noted on the left. Procedure Note Leonid Harris MD - 07/13/2025 XR CHEST PA AND LATERAL Date of Exam: 07/13/2025 10:56 AM EDT Indication: assess BIV ICD leads. Comparison: None available. Findings: There are bilateral AICD is noted. On the right dual-lead AICD noted withlead overlying the expected location of the right ventricle. On the leftthere is a AICD with leads overlying the coronary sinus, right atrium, andright ventricle. Lungs without consolidation. No pneumothorax or effusion. Osseous structures appearintact. CardioMEMS pulmonary arterial monitoring device noted on theleft. IMPRESSION: Impression: 1. Bilateral AICD with leads as above. 2. No acute cardiopulmonary process. Electronically Signed: Leonid Harris MD 07/13/2025 4:13 PM EDT Workstation ID: [id number] Sidney Barraza MD IMG DIAGNOSTIC IMAGING ORDER RICH Final Result documented in this encounter Visit Diagnoses Not on filedocumented in this encounter Additional Health Concerns Assessment Noted Time PHQ-2 Depression Total Score: 1 02/17/20 24 10:24 AM EDT documented as of this encounter Care Teams Carder Blankets Relationship Specialty Start Date End Date Rad Galvan MD [facility] [address] [place], [place] [id number] PCP - General Family Medicine 04/15/22 documented as of this encounter
--- OUTSIDE RECORDS SUMMARY | 2025-07-15 10:30 | XMS_ITS | Encounter Summary ---
Author Organization [facility] Address [address] [place] [address] Care Team Providers Care Audio Video Technician Name Role Phone Uli Salcedo Unavailable [phone] Rad Galvan MD Primary Care Provider [phone] Encounter Details Date Type Department Care Team (Latest Contact Info) Description 07/15/2025 10:30 AM EDT Ancillary Procedure [facility] [place] [address] [place] [address] Chronic combined systolic and diastolic congestive heart [...] Upcoming Encounters Date Type Department Care Team ([facility] st Contact Info) Description 09/16/2025 2:30 PM EDT Appointment Cardiac Imaging [address] [place] [address] 09/16/2025 4:00 PM EDT Office Visit [facility] [place] [address] [facility] [place] [address] Elvin Schuler MD [address] [place] [address] 10/17/2025 11:40 AM EST Office Visit [facility] Nephrology, Bone & Mineral Metabolism [address] [facility], [address] [place] [address] Azael Mooney MD [address] [place] [address] documented as of this encounter Visit Diagnoses [...] documented as of this encounter Care Teams Audio Video Technician Relationship Specialty Start Date End Date Rad Galvan MD [address] [place] [address] PCP - General 04/08/25 Uli Salcedo PA [address] [place] [address] Referring Physician 02/03/25 documented as of this encounter
--- OUTSIDE RECORDS SUMMARY | 2025-07-27 08:02 | XMS_ITS | Encounter Summary ---
Author Organization [facility] Address [address] [place] [address] Care Team Providers Care Police Surgeon Name Role Phone Uli Salcedo Unavailable [phone] Rad Galvan MD Primary Care Provider [phone] Reason for Visit * Auth/Cert (Routine) Specialty Diagnoses / Procedures Referred By Contac t Referred To Contact Diagnoses Chronic combined systolic and diastolic congestive heart failure Chronic combined systolic and diastolic congestive heart failure (CMS/HCC) [I50.42] Procedures [place] RIGHT HEART CATH O2 SATURATION & CARDIAC OUTPUT Right heart catheterization Elvin Schuler MD [address] [place] [address] Phone: tel: fax: Cardiac Channel Rougher [address] [place] [address] Phone: tel: Referral ID Status Reason Start Date Expiration Date Visits Re quested Visits Authorized [id number] 1 1 Encounter Details Date Type Department Care Team (Latest Contact Info) Description 07/27/2025 8:02 AM EDT - 07/27/2025 10:39 AM EDT Hospital Encounter Cardiac Channel Rougher [address] [place] [address] Elvin Schuler MD [address] [place] [address] Chronic combined systolic and diastolic congestive heart failure ([facility]/HCC) Discharge Disposition: Home or Self Care Social [...] Take 1 tablet by mouth daily. 01/25/2025 bumetanide (Bumex) 2 MG tablet Take 1 tablet by mouth 2 times a day. 06/29/2025 digoxin (Lanoxin) 125 MCG tablet Take 1 [...] cannot stop thebleeding, call 911 or 0 (press operator meat). This is an emergency. Ask for an [...] or holidays, call and ask for the Color Mixer marketing information analyst. * H&P - Elvin Schuler MD - 07/27/2025 8:29 AM EDT History Of Present Illness Sara Edwards is a 70 y.o. female with known chronic systolic heart failure presenting with increasing edema, fatigue, and dyspnea. She was hospitalized over a month ago at [facility] and received IV diuretics. She has a [...] been discussed with the patient and/or their account representative. All questions answered and they agree to proceed. documented in this encounter Plan of Treatment Upcoming Encounters Date Type Department Care Team (Late st Contact Info) Description 09/16/2025 2:30 PM EDT Appointment Cardiac Imaging [address] [place] [address] 09/16/2025 4:00 PM EDT Office Visit [facility] [address] [place] [address] Elvin Schuler MD [address] [place] [address] 10/17/2025 11:40 AM EST Office Visit [facility] Nephrology, Bone & Mineral Metabolism [address] [facility], [address] [place] [address] Azael Mooney MD [address] [place] [address] documented as of this encounter Procedures Procedure [...] then carried out using a 7.5F VIP [place]-Po catheter. Pressures were recorded as the catheter [...] the patient was transferred back to the crime laboratory analyst holding area in good condition. Hemodynamic Data Pressures Phase: Resting Right RA Mean: 16 mmHg Pulmonary PA: 43/12 (23) mmHg PCW Mean: 11.0 mmHg Marianna: 1.9 Hemodynamic Data Cardiac Output and Resistance Phase: Resting Thermo CO: 4 L/min CI: 2.0 L/min/m2 Resistance Thermo PVR: 3.0 ROUSE Thermo PVR: 240 (dyne x sec)/cm5 Hemodynamic Data Saturations Phase: Resting Saturations PA: 62 % us Chika Orellana APRN CV CARDIAC CATH PROCEDURES Final Result * (ABNORMAL) POCT CO-Oximitry, Venous (07/27/2025 8:59 AM EDT) [facility] POCT OXYHEMOGLOBIN, VENOUS 62 40 - 70 % 07/27/2025 8:57 AM EDT HEALTHCARE LAB Boat Pilot ID Fister-Mes ch, Jael 07/27/2025 8:57 AM EDT [facility]ALTH[facility]ARE LAB Device ID [id number] 07/27/2025 8:57 AM EDT [facility] POCT Sample Site PA 07/27/2025 8:57 AM EDT [facility] POCT Total Hemoglobin 10.4(L) 11.2 - 15.7 g/dL 07/27/2025 8:57 AM EDT [facility]ALTHCARE LAB Venous blood specimen / Unknown 07/27/2025 8:59 AM EDT 07/27/2025 8:57 AM EDT us Elvin Schuler MD LAB POINT OF CARE T EST DOCKED DEVICE UNSOLICITED RESULTS Final Result [facility] [address] [place] [address] documented in this encounter Visit Diagnoses Diagnosis [...] documented as of this encounter Care Teams Police Surgeon Relationship Specialty Start Date End Date Rad Galvan MD [address] [place], [place] [id number] PCP - General 04/08/25 Uli Salcedo PA [address] [place] [address] Referring Physician 02/03/25 documented as of this encounter
--- OUTSIDE RECORDS SUMMARY | 2025-07-27 08:45 | XMS_ITS | Encounter Summary ---
Author Organization [facility] Address [address] [place] [address] Care Team Providers Care Restaurant Kitchen Manager Name Role Phone Uli Salcedo Unavailable [phone] Rad Galvan MD Primary Care Provider [phone] Reason for Visit * Auth/Cert (Routine) Specialty Diagnoses / Procedures Referred By Contac t Referred To Contact Diagnoses Chronic combined systolic and diastolic congestive heart failure Chronic combined systolic and diastolic congestive heart failure (CMS/HCC) [I50.42] Procedures [place] RIGHT HEART CATH O2 SATURATION & CARDIAC OUTPUT Right heart catheterization Elvin Schuler MD [address] [place] [address] Phone: tel: fax: Cardiac Access Nurse [address] [place] [address] Phone: tel: Referral ID Status Reason Start Date Expiration Date Visits Re quested Visits Authorized [id number] 1 1 Encounter Details Date Type Department Care Team (Late st Contact Info) Description 07/27/2025 8:45 AM EDT - 07/27/2025 10:00 AM EDT Surgery Cardiac Access Nurse [address] [place] [address] Elvin Schuler MD [address] [place] [address] Right heart catheterization [88688 (CPT )] Surgery Details Date/Time Status Location OR Service Patient Class Case Class Case Type Trauma Case? 07/27/2025 8:45 AM Posted JESUS PROGRAM PLANNER PROGRAM PLANNER 03 [facility] Outpatient Surgery E-Elect jennifer Panel 1 Procedure LRB Anes Op Region Wound Class Comments Right heart catheterization N/A Choice Surgeon Surgeon Role Service Panel Elvin Schuler MD Primary Cardiovascular 1 documented in this [...] Several days 07/08/2025 1:50 PM EDT Cady Brary Patient Health Questionnaire -2 Score 1 07/08/2025 1:50 PM EDCady Gambino * Question Answer Date of Assessment Author Trouble falling or staying asleep, or sleeping too much Nearly every day 07/08/2025 1:50 PM Cady Nunn Feeling tired or having little energy More than half the days 07/08/2025 1:50 PM Cady Nunn Poor appetite or overeating Not at all 07/08/2025 1:50 PM Cady Nunn Feeling bad about yourself - or that you are a failure or have let yourself or your family down Not at all 07/08/2025 1:50 PM Cady Nunn Trouble concentrating on things, such as reading the newspaper or watching television Nearly every day 07/08/2025 1:50 PM Cady Nunn Moving or speaking so slowly that other people could have noticed? Or the opposite - being so fidgety or restless that you have been moving around a lot more than usual. Several days 07/08/2025 1:50 PM Cady Nunn Thoughts that you would be better off or hurting yourself in some way Not at all 07/08/2025 1:50 PM Cady Nunn Patient Health Questionnaire-9 Score 10 07/08/2025 1:50 PM Joe Nunn a * Calculated C-SSRS Risk Score (Lifetime/Recent) Answer Date of Assessment Author No Risk Indicated 07/27/2025 8:16 AM Alexsandra Ponce RN * How difficult have these problems made it for you to do your work, take care of things at home, or get along with other people? Answer Date of Assessment Author Not difficult at all 07/08/2025 1:50 PM EDT Osmar keiko Cady * How difficult have these problems made it for you to do your work, take care of things at home, or get along with other people? Answer Date of Assessment Author Not difficult at all 07/08/2025 1:50 PM FAHADT Cady Coto * Question Answer Date of Assessment Author 1. Wish to be (Past 1 Month) No 8:16 AM Alexsandra Ponce, RN 2. Non-Specific Active Suici richard Thoughts (Past 1 Month) No 07/27/2025 8:16 AM EDT Alphonso Lee RN 6. Suicidal Behavior (Lifetime) No 8:16 AM EDT Alexsandra Lee RN documented as of this [...] cannot stop thebleeding, call 911 or 0 (semiautomatic stitcher operator). This is an emergency. Ask for [...] or holidays, call and ask for the Pole Tester process control technician. * H&P - Elvin Schuler MD - 07/27/2025 8:29 AM EDT History Of Present Illness Sara Edwards is a 70 y.o. female with known chronic systolic heart failure presenting with increasing edema, fatigue, and dyspnea. She was hospitalized over a month ago at [facility] and received IV diuretics. She has [...] been discussed with the patient and/or their guest experience representative. All questions answered and they agree to proceed. documented in this encounter Plan of Treatment Upcoming Encounters Date Type Department Care Team (Late st Contact Info) Description 09/16/2025 2:30 PM EDT Appointment Cardiac Imaging [address] [place] [address] 09/16/2025 4:00 PM EDT Office Visit [facility] [place] [address] [place] [address] Elvin Schuler MD [address] [place] [address] 10/17/2025 11:40 AM EST Office Visit [facility] Nephrology, Bone & Mineral Metabolism [address] [facility] [address] [facility], [address] [place] [address] Azael Mooney MD [address] [place] [address] documented as of this encounter [...] then carried out using a 7.5F VIP [place]-Po catheter. Pressures were recorded as the catheter [...] the patient was transferred back to the laborer marine terminal holding area in good condition. Hemodynamic Data Pressures Phase: Resting Right RA Mean: 16 mmHg Pulmonary PA: 43/12 (23) mmHg PCW Mean: 11.0 mmHg Marianna: 1.9 Hemodynamic Data Cardiac Output and Resistance Phase: Resting Thermo CO: 4 L/min CI: 2.0 L/min/m2 Resistance Thermo PVR: 3.0 ROUSE Thermo PVR: 240 (dyne x sec)/cm5 Hemodynamic Data Saturations Phase: Resting Saturations PA: 62 % Chika Orellana APRN CV CARDIAC CATH PROCEDURES Final Result * (ABNORMAL) POCT CO-Oximitry, Venous (07/27/2025 8:59 AM EDT) [facility] POCT OXYHEMOGLOBIN, VENOUS 62 40 - 70 % 07/27/2025 8:57 AM EDT [facility]ALTH[facility]ARE [facility] Rescue Boat Operator ID Calier-Diana bustos Jael 07/27/2025 8:57 AM EDT [facility] Device ID [id number] 07/27/2025 8:57 AM EDT [facility] POCT Sample Site PA 07/27/2025 8:57 AM EDT [facility] POCT Total Hemoglobin 10.4(L) 11.2 - 15.7 g/dL 07/27/2025 8:57 AM EDT [facility] Venous blood specimen / Unknown 07/27/2025 8:59 AM EDT 07/27/2025 8:57 AM EDT Elvin Schuler MD LAB POINT OF CARE T EST DOCKED DEVICE UNSOLICITED RESULTS Final Result [facility] [address] [place] [address] documented in this encounter Visit Diagnoses Diagnosis [...] Unit(Inpatient), mild pain, fever fentaNYL (Sublimaze) injection As needed, Starting on Fri07/27/25 at 0845, Until Fri07/27/25 at 0919, Routine, Intraprocedure Given 07/27/2025 8:45 AM EDT 25 mcg lidocaine (Xylocaine) 2 % injection As needed, Starting on Fri07/27/25 at 0849, Until Fri07/27/25 at 0919, Routine, Intraprocedure Given 07/27/2025 8:49 AM EDT 5 mL Right Internal Jugular midazolam (Versed) injection As needed, Starting on Fri07/27/25 at 0845, Until Fri07/27/25 at 0919, Routine, Intraprocedure Given 07/27/2025 8:45 AM EDT 1 mg documented in this [...] documented as of this encounter Care Teams Restaurant Kitchen Manager Relationship Specialty Start Date End Date Rad Galvan MD [address] [place] [address] PCP - General 04/08/25 Uli Salcedo PA [address] [place] [address] Referring Physician 02/03/25 documented as of this encounter
--- OUTSIDE RECORDS SUMMARY | 2025-08-01 10:15 | XMS_ITS | Encounter Summary ---
Author Organization [facility] Address [address] [place] [address] Care Team Providers Care Payroll Master Name Role Phone Rad Galvan MD Primary Care Provider + Reason for Referral * Diagnostic Imaging (Routine) - Authorized Specialty Diagnoses / Procedures Referred By Contac t Referred To Contact Diagnoses Encounter for screening mammogram for malignant neoplasm of breast Procedures Mammo Screening Digital Tomosynthesis Bilateral With CAD Rad Galvan MD [address] [address] Phone: tel: fax: [facility] - OUTPT PHYSICAL THERAPY [address] [place] [address] [place] [address] Phone: tel: fax: Referral ID Status Reason Start Date Expiration Date V isits Requested Visits Authorized [id number] Authorized 08/01/2025 10/31/2026 1 1 Reason for Visit * Reason Comments Medicare Wellness-subsequent Encounter Details Date Type Department Care Team (Late st Contact Info) Description 08/01/2025 10:15 AM EDT Office Visit [facility] [address] [facility] [place] [id number] Rad Galvan MD [address] [facility] [place] [address] Type 2 diabetes mellitus with hyperglycemia, with long-term current use of insulin (Primary Dx); Medicare annual wellness visit, subsequent; Annual physical exam; Encounter for screening mammogram for malignant neoplasm of breast; Need for vaccination; Hypokalemia; Chronic HFrEF (heart failure with reduced ejection fraction); Obstructive sleep apnea; Seizure disorder; Viral cardiomyopathy; Type 2 diabetes mellitus with stage 3b chronic kidney disease, with long-term current use of insulin Social History Tobacco Use Types Packs/Day Years Used Date Smoking Tobacco: Former Cigarettes 0.1 2 0 11/24/1980 - 1982 Smokeless Tobacco: Never Tobacco Cessation:Counseling Given: Not Answered Comments:In my Twenty PHQ-2 Answer Date Recorded Retired PHQ-9: Brief Depression Severity Measure Score 0 08/18/2023 PHQ-2 Answer Date Recorded Patient Health Questionnaire-2 Score 1 08/01/2025 Comments Unknown Sex and Gender Information Value Date Recorded Sex Assigned at Female 03/31/2025 7:05 PM EDT Legal Sex Female 11:42 AM EDT Gender Identity Not on file Sexual Orientation Straight 03/31/2025 7: 05 PM EDT documented as of this encounter Last Filed Vital Signs Vital Sign Reading Time Taken Comments Blood Pressure 118/50 08/01/2025 10:09 AM EDT Pulse 70 08/01/2025 10:09 AM EDT Temperature 36.6 C (97.9 F) 08/01/2025 10:09 AM EDT Respiratory Rate 20 08/01/2025 10:0 9 AM EDT Oxygen Saturation 99% 08/01/2025 10: 09 AM EDT Inhaled Oxygen Concentration - - Weight 92.4 kg (203 lb 12.8 oz) 025 10:09 AM EDT Height 154.9 cm (5' 1 ) 08/01/2025 10:0 9 AM EDT Body Mass Index 38.51 08/01/2025 10:09 AM EDT documented in this encounter Functional Status documented as of this encounter Patient Instructions * Attachments The following attachments cannot be sent through Care Everywhere. * Health Maintenance After Age 65 (Cameroonian) documented in this encounter Progress Notes * Rad Galvan MD - 08/01/2025 10:15 AM EDTAssociated Problem(s): Type 2 diabetes mellitus with hyperglycemia, with long-term current use of insulin Diabetes is stable. Continue current treatment regimen. Diabetes will be reassessed in 6 months Orders: POC Glycosylated Hemoglobin (Hb A1C) * Rad Galvan MD - 08/01/2025 10:15 AM EDTAssociated Problem(s): Chronic HFrEF (heart failure with reduced ejection fraction) * Rad Galvan MD - 08/01/2025 10:15 AM EDTAssociated Problem(s): Obstructive sleep apnea * Rad Galvan MD - 08/01/2025 10:15 AM EDTAssociated Problem(s): Seizure disorder * Rad Galvan MD - 08/01/2025 10:15 AM EDTAssociated Problem(s): Viral cardiomyopathy {CHF (Optional):63941} * Rad Galvan MD - 08/01/2025 10:15 AM EDTAssociated Problem(s): Type 2 diabetes mellitus with stage 3b chronic kidney disease, with long-term current use of insulin {Diabetes (Optional):[id number]} * Rad Galvan MD - 08/01/2025 10:15 AM EDT Images from the original note were not included. Subjective The ABCs of the Annual Wellness Visit Medicare Wellness Visit Sara Edwards is a 70 y.o. patient who presents for a Medicare Wellness Visit. The following portions of the patient's history were reviewed and updated as appropriate: allergies, current medications, past family history, past medical history, past social history, past surgical history, and problem list. Compared to one year ago, the patient's physical health is worse. Compared to one year ago, the patient's mental health is the same. Recent Hospitalizations: She was admitted within the past 365 days at [facility]. Current Medical Providers: Patient Care Team: Rad Galvan MD as PCP - General (Family Medicine) Sidney Barraza MD as Consulting Physician (Cardiac Electrophysiology) Outpatient Medications Prior to Visit Medication Sig Dispense Refill allopurinol (ZYLOPRIM) 100 MG tablet TAKE ONE TABLET BY MOUTH EVERY DAY 60 tablet 5 atorvastatin (LIPITOR) 10 MG tablet TAKE ONE TABLET BY MOUTH EVERY DAY 30 tablet 11 bumetanide (BUMEX) 1 MG tablet TAKE TWO TABLETS BY MOUTH EVERY DAY (Patient taking differently: Take 2 tablets by mouth 2 (Two) Times a Day.) 60 tablet 2 Comfort EZ Pen [place] 32G X 6 MM [facility] [place] DIRECTED FOR insulin injections 100 each 5 Continuous Glucose Rivet Thrower (FreeStyle Simón 3 Harman) device Use 1 each Daily. 1 each 0 Continuous Glucose Sensor (FreeStyle Simón 3 Plus Sensor) Use Every 15 (Fifteen) Days. 2 each 11 dapagliflozin Propanediol (Farxiga) 10 MG tablet Take by mouth. From cardio digoxin (LANOXIN) 125 MCG tablet TAKE ONE TABLET BY MOUTH EVERY DAY 30 tablet 5 gabapentin (NEURONTIN) 600 MG tablet Take 1 tablet by mouth 2 (Two) Times a Day. 60 tablet 2 insulin aspart (NovoLOG FlexPen) 100 UNIT/ML solution pen-injector sc pen Inject 8 Units under the skin into the appropriate area as directed As Needed (glucose >400). 3 mL 0 insulin NPH-insulin regular (humuLIN 70/30,novoLIN 70/30) (70-30) 100 UNIT/ML injection 40 units q AM and 40 units q PM isosorbide mononitrate (IMDUR) 30 MG 24 hr tablet Take 1 tablet by mouth Daily. loratadine (CLARITIN) 10 MG tablet TAKE ONE TABLET BY MOUTH EVERY DAY 30 tablet 11 metoprolol succinate XL (TOPROL-XL) 25 MG 24 hr tablet Take 0.5 tablets by mouth Daily. multivitamin with minerals tablet tablet Take 1 tablet by mouth Daily. nitroglycerin (NITROSTAT) 0.[address] 1 tablet under the tongue Every 5 (Five) Minutes As Needed for Chest Pain. Take no more than 3 doses in 15 minutes. 30 tablet 0 [place]-3 Fatty Acids (fish oil) 1000 MG capsule capsule Take 2 capsules by mouth Daily With Breakfast. pantoprazole (PROTONIX) 40 MG EC tablet TAKE ONE TABLET BY MOUTH TWICE DAILY 60 tablet 11 PHENobarbital 32.4 MG tablet TAKE THREE TABLETS BY MOUTH EVERY DAY AT BEDTIME 90 tablet 5 polyethylene glycol (MiraLax) 17 GM/SCOOP powder Take 17 g by mouth Daily. 850 g 2 potassium chloride (KLOR-CON M20) 20 MEQ CR tablet TAKE ONE TABLET BY MOUTH TWICE DAILY 60 tablet 3 rivaroxaban (XARELTO) 20 MG tablet Take 1 tablet by mouth Daily. rOPINIRole (REQUIP) 2 MG tablet TAKE ONE TABLET BY MOUTH EVERY NIGHT 30 tablet 11 Semaglutide,0.25 or 0.5MG/DOS, (OZEMPIC) 2 MG/3ML solution pen-injector Inject 0.25 mg under the skin into the appropriate area as directed 1 (One) Time Per Week. spironolactone (ALDACTONE) 25 MG tablet TAKE ONE TABLET BY MOUTH EVERY DAY 90 tablet 1 traMADol (ULTRAM) 50 MG tablet Take 1 tablet by mouth Every 6 (Six) Hours As Needed for Moderate Pain. 120 tablet 3 valsartan (Diovan) 40 MG tablet Take 1 tablet by mouth 2 (Two) Times a Day. potassium chloride ER (K-TAB) 20 MEQ tablet controlled-release ER tablet TAKE ONE TABLET BY MOUTH TWICE DAILY 120 tablet 5 No facility-administered medications prior to visit. Opioid medication/s are on active medication list. and I have evaluated her active treatment plan and pain score trends (see table). Vitals: 08/01/25 1009 PainSc: 0-No pain I have reviewed the chart for potential of high risk medication and harmful drug interactions in the elderly. Aspirin is not on active medication list. Aspirin use is not indicated based on review of current medical condition/s. Risk of harm outweighs potential benefits. . 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 Diabetic peripheral neuropathy associated with type 2 diabetes mellitus Longstanding persistent atrial fibrillation Viral cardiomyopathy Seizure disorder Class 2 severe obesity due to excess calories with serious comorbidity and body mass index (BMI) of38.0 to 38.9 in adult Type 2 diabetes mellitus with stage 3b chronic kidney disease, with long-term current use of insulin Bilateral carpal tunnel syndrome Type 2 diabetes mellitus with hyperglycemia, with long-term current use of insulin Obstructive sleep apnea Chronic HFrEF (heart failure with reduced ejection fraction) Advance Care Planning Advance Directive is not on file. ACP discussion was held with the patient during this visit. Patient has an advance directive (not in EMR), copy requested. Objective Vitals: 08/01/25 1009 BP: 118/50 Pulse: 70 Resp: 20 Temp: 97.9 ??F (36.6 ??C) SpO2: 99% Weight: 92.4 kg (203 lb 12.8 oz) Height: 154.9 cm (61 ) PainSc: 0-No pain Estimated body mass index is 38.51 kg/m?? as calculated from the following: Height as of this encounter: 154.9 cm (61 ). Weight as of this encounter: 92.4 kg (203 lb 12.8 oz). Does the patient have evidence of cognitive impairment? No Lab Results Component Value Date HGBA1C 7.2 (A) 08/01/2025 Health Risk Assessment Smoking Status: Social History Tobacco Use Smoking Status Former Current packs/day: 0.00 Average packs/day: 0.1 packs/day for 2.0 years (0.2 ttl pk-yrs) Types: Cigarettes Start date: 11/24/1980 Quit date: 1982 Years since quittin.7 Smokeless Tobacco Never Tobacco Comments In my Twenty Alcohol Consumption: Social History Substance and Sexual Activity Alcohol Use None Fall Risk Screen STEADI Fall Risk Assessment was completed, and patient is at HIGH risk for falls. Assessment completed on:08/01/2025 Depression Screening Little interest or pleasure in doing things? Not at all Feeling down, depressed, or hopeless? Several days PHQ-2 Total Score 1 Health Habits and Functional and Cognitive Screenin08/01/2025 10:12 AM Functional & Cognitive Status Do you have difficulty preparing food and eating? No Do you have difficulty bathing yourself, getting dressed or grooming yourself? No Do you have difficulty using the toilet? No Do you have difficulty moving around from place to place? Yes Do you have trouble with steps or getting out of a bed or a chair? Yes Current Diet Limited Junk Food Dental Exam Not up to date Eye Exam Up to date Exercise (times per week) 0 times per week Current Exercises Include No Regular Exercise Do you need help using the phone? No Are you deaf or do you have serious difficulty hearing? No Do you need help to go to places out of walking distance? No Do you need help shopping? No Do you need help preparing meals? No Do you need help with housework? No Do you need help with laundry? No Do you need help taking your medications? No Do you need help managing money? No Do you ever drive or ride in a car without wearing a seat belt? No Have you felt unusual fatigue (could be tiredness), stress, anger or loneliness in the last month? Yes Who do you live with? Alone If you need help, do you have trouble finding someone available to you? No Have you been bothered in the last four weeks by sexual problems? No Do you have difficulty concentrating, remembering or making decisions? Yes Age-appropriate Screening Schedule: Refer to the list below for future screening recommendations based on patient's age, sex and/or medical conditions. Orders for these recommended tests are listed in the plan section. The patient has been provided with a written plan. Health Maintenance List Health Maintenance Topic Date Due TDAP/TD VACCINES (2 - Tdap) 01/23/2007 ZOSTER VACCINE (1 of 2) Never done DIABETIC EYE EXAM 02/13/2022 MAMMOGRAM 02/18/2025 DXA SCAN 02/18/2025 COVID-19 Vaccine (2024- season) 2025 (Originally 07/25/2025) INFLUENZA VACCINE 08/24/2025 URINE MICROALBUMIN-CREATININE RATIO (uACR) 01/07/2026 HEMOGLOBIN A1C 01/29/2026 DIABETIC FOOT EXAM 07/26/2026 ANNUAL WELLNESS VISIT 08/01/2026 COLORECTAL CANCER SCREENING 05/01/2033 HEPATITIS C SCREENING Completed Pneumococcal Vaccine 50+ Completed [facility] Preventative Services Quick Reference Risk Factors Identified During Encounter Immunizations Discussed/Encouraged: Influenza and Shingrix Polypharmacy: Medication List reviewed and Medications are appropriate for patient Vision Screening Recommended Chronic Care every 3 months F/U Cardiology/Transplant medicine The above risks/problems have been discussed with the patient. Pertinent information has been shared with the patient in the After Visit Summary. An After Visit Summary and PPPS were made available to the patient. Follow Up: Next Medicare Wellness visit to be scheduled in 1 year. Additional E&M Note during same encounter follows: Patient has additional, significant, and separately identifiable condition(s)/problem(s) that require work above and beyond the Medicare Wellness Visit Chief Complaint Medicare Wellness-subsequent Subjective HPI Luly is also being seen today for an annual adult preventative physical exam. She has decided to proceed with cardiac transplantation if she meets all criteria . She is undergoing evaluation at [facility]. Patient has diabetes which she continues to monitor daily with her CGM. She denies any recent hypoglycemia. She continues to take insulin as prescribed. Objective Vital Signs: BP 118/50 Pulse 70 Temp 97.9 ??F (36.6 ??C) Resp 20 Ht 154.9 cm (61 ) Wt 92.4 kg (203 lb 12.8 oz) SpO2 99% BMI 38.51 kg/m?? Physical Exam Constitutional: General: She is not in acute distress. Appearance: Normal appearance. She is not ill-appearing. HENT: Head: Normocephalic and atraumatic. Right Ear: Tympanic membrane and ear canal normal. Left Ear: Tympanic membrane and ear canal normal. Nose: Nose normal. Mouth/Throat: Mouth: Mucous membranes are moist. Pharynx: Oropharynx is clear. No posterior oropharyngeal erythema. Eyes: Extraocular Movements: Extraocular movements intact. Conjunctiva/sclera: Conjunctivae normal. Pupils: Pupils are equal, round, and reactive to light. Cardiovascular: Rate and Rhythm: Normal rate and regular rhythm. Pulses: Normal pulses. Heart sounds: Normal heart sounds. Pulmonary: Effort: Pulmonary effort is normal. No respiratory distress. Breath sounds: Normal breath sounds. Abdominal: General: Abdomen is flat. Bowel sounds are normal. Palpations: Abdomen is soft. Tenderness: There is no abdominal tenderness. Musculoskeletal: General: Normal range of motion. Cervical back: Normal range of motion and neck supple. Right lower leg: Edema present. Left lower leg: Edema present. Lymphadenopathy: Cervical: No cervical adenopathy. Skin: General: Skin is warm and dry. Capillary Refill: Capillary refill takes less than 2 seconds. Neurological: General: No focal deficit present. Mental Status: She is alert and oriented to person, place, and time. Mental status is at baseline. Cranial Nerves: No cranial nerve deficit. Sensory: No sensory deficit. Motor: No weakness. Psychiatric: Mood and Affect: Mood normal. Behavior: Behavior normal. Thought Content: Thought content normal. Judgment: Judgment normal. The following data was reviewed by: Rad Galvan MD on 08/01/2025: Data reviewed : Cardiology studies right heart catheterization Common labs 01/07/2025 15:18 04/07/2025 09:42 08/01/2025 10:40 Common Labs Hemoglobin A1C 7.9 7.8 7.2 Assessment and Plan Additional age appropriate preventative wellness advice topics were discussed during today's preventative wellness exam(some topics already addressed during AWV portion of the note above): Physical Activity: Advised cardiovascular activity 150 minutes per week as tolerated. (example brisk walk for 30 minutes, 5 days a week). Nutrition: Discussed nutrition plan with patient. Information shared in after visit summary. Goal is for a well balanced diet to enhance overall health. Healthy Weight: Discussed current and goal BMI with patient. Steps to attain this goal discussed. Information shared in after visit summary. Motor Vehicle Safety Discussion: Wearing Seatbelt While in Motor Vehicle recommendation. Adhering to posted speed limit recommendation. Injury Prevention Discussion: Information shared in after visit summary. Medicare annual wellness visit, subsequent Annual physical exam Type 2 diabetes mellitus with hyperglycemia, with long-term current use of insulin Diabetes is stable. Continue current treatment regimen. Diabetes will be reassessed in 6 months Orders: POC Glycosylated Hemoglobin (Hb A1C) Encounter for screening mammogram for malignant neoplasm of breast Orders: Mammo Screening Digital Tomosynthesis Bilateral With CAD; Future Need for vaccination Orders: Zoster Vac Recomb Adjuvanted 50 MCG/0.5ML reconstituted suspension; Inject 0.5 mL into the appropriate muscle as directed by prescriber 1 (One) Time for 1 dose. Hypokalemia Patient to discuss with pharmacy if she is receiving twice daily dosing of her potassium chloride Orders: potassium chloride ER (K-TAB) 20 MEQ tablet controlled-release ER tablet; Take 1 tablet by mouth Every 12 (Twelve) Hours. Chronic HFrEF (heart failure with reduced ejection fraction) Obstructive sleep apnea Seizure disorder Viral cardiomyopathy Type 2 diabetes mellitus with stage 3b chronic kidney disease, with long-term current use of insulin Follow Up Return in about 3 months (around 10/31/2025) for Next scheduled follow up Diabetes. Patient was given instructions and counseling regarding her condition or for health maintenance advice. Please see specific information pulled into the AVS if appropriate. documented in this encounter Plan of Treatment Upcoming Encounters Date Type Department Care Team (Late st Contact Info) Description 10/31/2025 11:00 AM EST Office Visit [facility] [address] [place] [phone] Rad Galvan MD [address] [place] [address] Scheduled Orders Name Type Priority Associated Diagnoses Orde r Schedule Mammo Screening Digital Tomosynthesis Bilateral With CAD Imaging Routine Encounter for screening mammogram for malignant neoplasm of breast Expected: 08/06/2025, Expires: 08/01/2026 documented as of this encounter Procedures Procedure Name Priority Date/Time Associated Diagnosis Comments POCT GLYCOSYLATED HEMOGLOBIN (HGB A1C) Routine 08/01/2025 10:40 AM EDT Type 2 diabetes mellitus with hyperglycemia, with long-term current use of insulin documented in this encounter Results * (ABNORMAL) POC Glycosylated Hemoglobin (Hb A1C) (08/01/2025 10:40 AM EDT) Hemoglobin A1C 7.2(A) 4.5 - 5.7 % [facility] Lot Number [id number] [facility] Expiration Date 03/09/2027 [facility] Blood 08/01/2025 10:4 0 AM EDT Rad Galvan MD POINT OF CARE TEST ORDER RICH Final Result [facility]
[address] [place] [address], documented in this encounter Visit Diagnoses Diagnosis Type 2 diabetes mellitus with hyperglycemia, with long-term current use of insulin- Primary Medicare annual wellness visit, subsequent Annual physical exam Routine general medical examination at a [facility] care facility Encounter for screening mammogram for malignant neoplasm of breast Need for vaccination Need for prophylactic vaccination and inoculation against unspecified single disease Hypokalemia Hypopotassemia Chronic HFrEF (heart failure with reduced ejection fraction) Obstructive sleep apnea Obstructive sleep apnea (adult) (pediatric) Seizure disorder Unspecified epilepsy without mention of intractable epilepsy Viral cardiomyopathy Other primary cardiomyopathies Type 2 diabetes mellitus with stage 3b chronic kidney disease, with long-term current use of insulin documented in this encounter Additional Health Concerns Assessment Noted Time PHQ-2 Depression Total Score: 1 02/17/20 24 10:24 AM EDT documented as of this encounter Care Teams Payroll Master Relationship Specialty Start Date End Date Rad Galvan MD [address] [place] [address] PCP - General Family Medicine 04/15/22 documented as of this encounter
--- OUTSIDE RECORDS SUMMARY | 2025-08-15 11:00 | XMS_ITS | Encounter Summary ---
Author Organization [facility] Address [address] [place] [address] Care Team Providers Care Wool Grader Name Role Phone Uli Salcedo Unavailable [phone] Rad Galvan MD Primary Care Provider [phone] Encounter Details Date Type Department Care Team (Latest Contact Info) Description 08/15/2025 11:00 AM EDT Ancillary Procedure [facility] [place] [address] [place] [address] Chronic combined systolic and diastolic congestive heart [...] Upcoming Encounters Date Type Department Care Team ([facility] Contact Info) Description 09/16/2025 2:30 PM EDT Appointment Cardiac Imaging [address] [place] [address] 09/16/2025 4:00 PM EDT Office Visit [facility] [place] [address] [facility]. [address] [place] [address] [place] Schuler MD [address] [place] [address] 10/17/2025 11:40 AM EST Office Visit [facility] Nephrology, Bone & Mineral Metabolism [address] [facility], [address] [place] [address] Azael Mooney MD [address] [place] [address] documented as of this encounter Visit Diagnoses [...] documented as of this encounter Care Teams Wool Grader Relationship Specialty Start Date End Date Rad Galvan MD [address] [place] [address] PCP - General 04/08/25 Uli Salcedo PA [address] [place] [address] Referring Physician 02/03/25 documented as of this encounter
--- OUTSIDE RECORDS SUMMARY | 2025-08-17 14:00 | XMS_ITS | Encounter Summary ---
Author Organization [facility] Address [address] [id number] Care Team Providers Care Delivery Consultant Name Role Phone Rad Galvan MD Primary Care Provider + Reason for Referral * Consultation (Urgent) - Closed Specialty Diagnoses / Procedures Referred By Contac t Referred To Contact Nephrology Diagnoses Stage 4 chronic kidney disease Procedures PA OFFICE/OUTPATIENT NEW MODERATE MDM 45 MINUTES Desi Beckford APRN [address] [place] [address] Phone: tel: fax: Azael Mooney MD [address] [place] [address] Phone: tel: fax: Referral ID Status Reason Start Date Expiration Date V isits Requested Visits Authorized [id number] Closed Specialty Services Required 08/17/2025 11/16/2026 1 1 Reason for Visit * Reason Comments Hospital Follow Up Visit Encounter Details Date Type Department Care Team (Latest Contact Info) Description 08/17/2025 2:00 PM EDT Office Visit [facility] [address] [facility] [place] [address] Desi Beckford APRN [address] [facility] [address] [place] [address] Hospital discharge follow-up (Primary Dx); [...] this encounter Progress Notes * Desi Beckford, SURGICAL APPLIANCE FITTER - 08/17/2025 2:00 PM EDT Date: 08/17/2025 [...] scheduled for 09/21/2025. She also consulted a computer sciences professor during her hospital stay. Her phenobarbital was discontinued as it was causing jerking movements. She has a history of atrial fibrillation and is currently on Xarelto. Swelling in her feet and legsis reported, and her computer sciences professor, Dr. Pantoja, who primarily manages her heart [...] 60 tablet, Rfl: 2 Comfort EZ Pen [place] 32G X 6 MM [facility] [place] DIRECTED FOR insulin injections, Disp: 100 each, Rfl: 5 Continuous Glucose [employer] Age Program Associate (FreeStyle Simón 3 [place]) device, Use 1 each Daily., Disp: 1 [...] 15 minutes., Disp: 30 tablet, Rfl: 0 [place]-3 Fatty Acids (fish oil) 1000 MG capsule [...] but stable. - A referral to a management lecturer, Dr. Azael Mooney, at [facility], was made for further evaluation and management. Patient or patient retention representative verbalized consent for the use of Ambient Listening during the visit with Desi Beckford APRN for chart documentation. 08/17/2025 16:19 EDT *30 minutes spent with patient POC, education and medication management. Follow Up: Return for Next scheduled follow up. Desi Terry APRN [facility] documented in this encounter Plan of Treatment Upcoming Encounters Date Type Department Care Team (Late st Contact Info) Description 10/31/2025 11:00 AM EST Office Visit [facility] [address] [phone] Rad [...] documented as of this encounter Care Teams Delivery Consultant Relationship Specialty Start Date End Date Rad Galvan MD [address] [facility] [place] [address] PCP - General Family Medicine 04/15/22 documented as of this encounter
--- OUTSIDE RECORDS SUMMARY | 2025-08-22 14:00 | XMS_ITS | Encounter Summary ---
Author Organization [facility] Address [address] [place] [address] Care Team Providers Care Tube Builder Airplane Name Role Phone Uli Salcedo PA Unavailable [phone] Rad Galvan MD Primary Care Provider [phone] Reason for Referral * Consultation (Routine) - Authorized Specialty Diagnoses / Procedures Referred By Regan greene Referred To Contact Diagnoses Stage 3b chronic kidney disease (CMS/HCC) Lenore Cobos MD [facility] [address] [address] Phone: tel: fax: Referral ID Status Reason Start Date Expiration Date V isits Requested Visits Authorized [id number] Authorized 08/22/2025 02/21/2027 1 1 Reason for Visit * Reason Comments Follow-up * Consultation (Urgent) - Closed Specialty Diagnoses / Procedures Referred By Regan greene Referred To Contact Nephrology Diagnoses Stage 4 chronic kidney disease (CMS/HCC) Procedures OR OFFICE/OUTPATIENT NEW MODERATE MDM 45-59 MINUTES 131 ([email or web address]) - Ambulatory Referral to Nephrology Desi Beckford, CORPORATE REAL ESTATE SPECIALIST [address] [place] [address] Phone: tel: fax: Azael Mooney MD [address] [place] [address] Phone: tel: fax: Referral ID Status Reason Start Date Expiration Date Visits Re quested Visits Authorized [id number] Closed 08/17/2025 11/16/2026 1 1 Encounter Details Date Type Department Care Team (Late st Contact Info) Description 08/22/2025 2:00 PM EDT Office Visit [facility] [place] [facility]ph[facility], Bone & Mineral Metabolism [address] [place] [address] Lenore Seaman MD [address] [place] [address] Obesity (BMI 35.0-39.9 without comorbidity) [...] but has not previously consulted with a software security architect. Since 2020, her kidney function has shown [...] She is under the care of a electric arc welder who has expressed concerns about excessive fluid [...] her diuretic regimen as prescribed by her electric arc welder. Blood work including Cystatin C, repeat RFP [...] will follow up in 2-3 months at [facility]. RTC in 6 months with ordered [...] Procedure Laterality Date APPENDECTOMY N/A Appendectomy from [facility] GALLBLADDER SURGERY N/A Anastomosis Of Gallbladder from [facility] INSERT / REPLACE / REMOVE PACEMAKER 2019 TONSILLECTOMY N/A Tonsillectomy from [facility] [3] Family History Problem Relation Name Age [...] EDT Appointment Cardiac Imaging [address] [place] [address] 09/16/2025 4:00 PM EDT Office Visit [facility] [place] [address] [place] [address] Elvin Schuler MD [address] [place] [address] 10/17/2025 11:40 AM EST Office Visit [facility] Nephrology, Bone & Mineral Metabolism [address], [address] [place] [address] Azael Mooney MD [address] [place] [address] Scheduled Orders Name Type Priority Associated Diagnoses Orde r Schedule Renal Function Panel, Plasma Lab Routine Stage 3b chronic kidney disease ([facility]/HCC) Expected: 02/19/2026 (Approximate), Expires: 02/19/2027 Albumin-creatinine ratio, urine, random Lab Routine Stage 3b chronic kidney disease ([facility]) Expected: 10/22/2025 (Approximate), Expires: 02/23/2027 CBC W/O Differential Lab Routine Stage 3b chronic kidney disease ([facility]) Expected: 10/22/2025 (Approximate), Expires: 02/23/2027 Cystatin C Lab Routine Stage 3b chronic kidney disease ([facility]) Expected: 10/22/2025 (Approximate), Expires: 02/23/2027 Protein, Random, Urine with Creatinine Lab Routine Stage 3b chronic kidney disease ([facility]/HCC) Expected: 10/22/2025 (Approximate), Expires: 02/23/2027 PTH Intact Total Lab Routine Stage 3b chronic kidney disease ([facility]/HCC) Expected: 10/22/2025 (Approximate), Expires: 02/23/2027 Urinalysis with reflex microscopic (Culture NOT Included) Lab Routine Stage 3b chronic kidney disease ([facility]) Expected: 10/22/2025 (Approximate), Expires: 02/23/2027 Vitamin D [...] - 0.95 mg/L 08/22/2025 6:18 PM EDT [facility] Blood Venous blood specimen / Unknown Venipuncture / Unknown 08/22/2025 3:59 PM EDT 08/22/2025 3:59 PM EDT Lenore Cobos MD LAB BLOOD OR DERABLES Final Result [facility] [address] [place] [address] * Vitamin D 25 Hydroxy (08/22/2025 3:59 PM EDT) Vitamin D 25 Hydroxy 61.8 20.0 - 80.0 ng/mL 08/22/2025 7:20 PM EDT [facility] Blood Venous blood specimen / Unknown Venipuncture / Unknown 08/22/2025 3:59 PM EDT 08/22/2025 3:59 PM EDT Narrative [facility] - 08/22/2025 7:20 PM EDT Testing performed on [employer] Solid Glass Rod Dowel Machine Operator, standardized against NIST SRM 2972. When testing [...] MD LAB BLOOD OR DERABLES Final Result [facility] [address] [place] [address] * (ABNORMAL) PTH Intact Total (08/22/2025 3:59 PM EDT) PTH Intact Total 242(H) 9 - 77 pg/mL 08/22/2025 6:11 PM EDT [facility] Blood Venous blood specimen / Unknown Venipuncture / Unknown 08/22/2025 3:59 PM EDT 08/22/2025 3:59 PM EDT Narrative [facility] - 08/22/2025 6:11 PM EDT Assay performed by immunoassay at the [facility]. Performed on Izquierdo Solid Glass Rod Dowel Machine Operator chemiluminescent immunoassay, tractable to the World Health Organization's first international standard for PTH from the NIBS, Code 79/500. Results obtained from different test methods or kits cannot be used interchangeably. Lenore Cobos MD LAB BLOOD OR DERABLES Final Result [facility] [address] [place] [address] * (ABNORMAL) CBC W/O Differential (08/22/2025 3:59 PM EDT) WBC Count 7.37 3.70 - 10.30 10*3/uL LAB HEMATOLOGY METHOD 08/22/2025 5:23 PM EDT [facility] RBC Count 2.97(L) 3.90 - 5.20 10*6/uL LAB HEMATOLOGY METHOD 08/22/2025 5:23 PM EDT [facility] HGB 10.1(L) 11.2 - 15.7 g/dL LAB HEMATOLOGY METHOD 08/22/2025 5:23 PM EDT [facility] HCT 31.6(L) 34.0 - 45.0 % LAB HEMATOLOGY METHOD 08/22/2025 5:23 PM EDT [facility] Platelet Count 208 155 - 369 10*3/uL LAB HEMATOLOGY METHOD 08/22/2025 5:23 PM EDT [facility] MCV 106(H) 79 - 98 fL LAB HEMATOLOGY METHOD 08/22/2025 5:23 PM EDT [facility] MCH 34.0(H) 26.0 - 32.0 pg LAB HEMATOLOGY METHOD 08/22/2025 5:23 PM EDT [facility] MCHC 32.0 30.7 - 35.5 g/dL LAB HEMATOLOGY METHOD 08/22/2025 5:23 PM EDT [facility] RDW 15.4(H) 11.5 - 14.5 % LAB HEMATOLOGY METHOD 08/22/2025 5:23 PM EDT [facility] MPV 10.1 8.8 - 12.5 fL LAB HEMATOLOGY METHOD 08/22/2025 5:23 PM EDT [facility] nRBC 0.0 <=0.0 per 100 WBCs LAB HEMATOLOGY METHOD 08/22/2025 5:23 PM EDT [facility] Blood Venous blood specimen / Unknown Venipuncture / Unknown 08/22/2025 3:59 PM EDT 08/22/2025 3:59 PM EDT us Lenore Cobos MD LAB BLOOD OR DERABLES Final Result [facility] [address] [place] [address] * (ABNORMAL) Renal Function Panel, Plasma (08/22/2025 3:59 PM EDT) Glucose, Plasma 178(H) 74 - 99 mg/dL 08/22/2025 5:45 PM EDT [facility] BUN, Plasma 32(H) 8 - 23 mg/dL 08/22/2025 5:45 PM EDT [facility] Creatinine, Plasma 1.55(H) 0.60 - 1.10 mg/dL 08/22/2025 5:45 PM EDT [facility] BUN/Creatinine Ratio 21 08/22/2025 5:45 PM EDT [facility] Sodium, Plasma 136 136 - 145 mmol/L 08/22/2025 5:45 PM EDT [facility] Potassium, Plasma 4.6 3.6 - 4.9 mmol/L 08/22/2025 5:45 PM EDT [facility] Chloride, Plasma 92(L) 97 - 107 mmol/L 08/22/2025 5:45 PM EDT [facility] CO2, Plasma 30(H) 22 - 29 mmol/L 08/22/2025 5:45 PM EDT [facility] Anion Gap 14 6 - 16 mmol/L 08/22/2025 5:45 PM EDT [facility] Total Calcium, Plasma 9.6 8.9 - 10.2 mg/dL 08/22/2025 5:45 PM EDT [facility] Phosphorus, Plasma 3.6 2.5 - 4.5 mg/dL 08/22/2025 5:45 PM EDT [facility] Albumin, Plasma 4.1 3.5 - 5.2 g/dL 08/22/2025 5:45 PM EDT [facility] eGFRcr 36.3 mL/min/1.7 3m*2 08/22/2025 5:45 PM EDT [facility] Comment:Reported eGFRcr in m L/min/1.73m2 is based the CKD-EPI 2020 equation that does not use a race coefficient. Blood Venous blood specimen / Unknown Venipuncture / Unknown 08/22/2025 3:59 PM EDT 08/22/2025 3:59 PM EDT Lenore Cobos MD LAB BLOOD OR DERABLES Final Result [facility] [address] [place] [address] * Protein, Random, Urine with Creatinine (08/22/2025 3:48 PM EDT) Protein, Urine 6 mg/dL 08/22/2025 5:50 PM EDT [facility] Creatinine, Urine 19 mg/dL 08/22/2025 5:50 PM EDT [facility] Protein/Creati nine Ratio 0.3 mg/mg Creat 08/22/2025 5:50 PM EDT [facility] Urine Urine specimen obtained by clean catch procedure / Unknown Non-blood Collection / Unknown 08/22/2025 3:48 PM EDT 08/22/2025 3:48 PM EDT us Lenore Cobos MD LAB URINE OR DERABLES Final Result [facility] [address] [place] [address] * (ABNORMAL) Urinalysis with reflex microscopic (Culture NOT Included) (08/22/2025 3:48 PM EDT) Color, Urine Yellow LAB URINALYSIS - AUTOMATED METHOD 08/22/2025 5:22 PM EDT [facility] Clarity, Urine Clear LAB URINALYSIS - AUTOMATED METHOD 08/22/2025 5:22 PM EDT [facility] Spec [place], Urine 1.009 1.005 - 1.030 LAB URINALYSIS - AUTOMATED METHOD 08/22/2025 5:22 PM EDT [facility] pH, Urine 7.0 5.0 - 8.0 LAB URINALYSIS - AUTOMATED METHOD 08/22/2025 5:22 PM EDT [facility] Protein, Urine Negative Negative mg/dL LAB URINALYSIS - AUTOMATED METHOD 08/22/2025 5:22 PM EDT [facility] Glucose, Urine 500(A) Negative mg/dL LAB URINALYSIS - AUTOMATED METHOD 08/22/2025 5:22 PM EDT [facility] Ketones, Urine Negative Negative mg/dL LAB URINALYSIS - AUTOMATED METHOD 08/22/2025 5:22 PM EDT [facility] Blood, Urine Negative Negative LAB URINALYSIS - AUTOMATED METHOD 08/22/2025 5:22 PM EDT [facility] Bilirubin, Urine Negative Negative LAB URINALYSIS - AUTOMATED METHOD 08/22/2025 5:22 PM EDT [facility] Urobilinogen, Urine 0.2 0.2 to 1.0 mg/dL LAB URINALYSIS - AUTOMATED METHOD 08/22/2025 5:22 PM EDT [facility] Leukocytes, Urine Negative Negative LAB URINALYSIS - AUTOMATED METHOD 08/22/2025 5:22 PM EDT [facility] Nitrite, Urine Negative Negative LAB URINALYSIS - AUTOMATED METHOD 08/22/2025 5:22 PM EDT [facility] Urine Urine specimen obtained by clean catch procedure / Unknown Non-blood Collection / Unknown 08/22/2025 3:48 PM EDT 08/22/2025 3:48 PM EDT us Lenore Cobos MD LAB URINE OR DERABLES Final Result Performing Organization Address City/[facility]/ZIP Co de Phone Number [facility] [address] [place] [address] * Albumin-creatinine ratio, urine, random (08/22/2025 3:48 PM EDT) Microalbumin, Urine <1.2 <1.9 mg/dL 08/22/2025 6:20 PM EDT [facility] Creatinine, Urine 19 mg/dL 08/22/2025 6:20 PM EDT [facility] Albumin/Creatin ine Ratio 08/22/2025 6:20 PM EDT [facility] Comment:Unable to calculate, at least one value is above or below the detection limit. Urine Urine specimen obtained by clean catch procedure / Unknown Non-blood Collection / Unknown 08/22/2025 3:48 PM EDT 08/22/2025 3:48 PM EDT us Lenore Cobos MD LAB URINE OR DERABLES Final Result Performing Organization Address City/[facility]/ZIP Co de Phone Number [facility] [address] [place] [address] documented in this encounter Visit Diagnoses Diagnosis [...] documented as of this encounter Care Teams Tube Builder Airplane Relationship Specialty Start Date End Date Rad Galvan MD [address] [place] [address] PCP - General 04/08/25 Uli Salcedo PA [address] [place] [address] Referring Physician 02/03/25 documented as of this encounter
[2025-09-08] VITALS (9 sets, daily range): BP systolic 96–110; BP diastolic 38–50; PULSE 70–77; RESP 11–19; TEMP 36.6; O2SAT 95–98; BMI 35.6
--- NOTE | 2025-09-08 07:55 | ECG_ITS ---
APPROVED REPORT Exam: Resting ECG HR:72 bpm ECG Measurements Heart Rate 72 AXES QRSd 165 QRS 137 QT 459 T 28 QTc 483 Conclusion UNCERTAIN IRREGULAR RHYTHM ELECTRONIC VENTRICULAR PACEMAKER -- CONTOUR ANALYSIS BASED ON INTRINSIC RHYTHM INTRAVENTRICULAR CONDUCTION DELAY [130+ ms QRS DURATION] POSSIBLE RIGHT VENTRICULAR HYPERTROPHY [SOME/ALL OF: PROMINENT R IN V1, LATE TRANSITION, RAD, NISSA, SSS] ABNORMAL ECG UNCONFIRMED REPORT Electronically signed by : Seth Jimenez, 09/10/2025 15:08:00
--- NOTE | 2025-09-08 08:13 | XR_ITS ---
FINAL REPORT CLINICAL HISTORY: Shortness of breath COMPARISON: 08/10/2025 FINDINGS: A portable view of the chest was obtained. Left AICD and right sided pacemaker are unchanged. The heart is normal in size on today's exam. The previously seen right perihilar opacity and small bilateral pleural effusions have resolved. There is no focal infiltrate. There is no pneumothorax. IMPRESSION: Interval resolution right perihilar opacity and small bilateral pleural effusions. Reviewed, Interpreted and Dictated by Neetu Waite MD Transcribed by Prabha To Authenticated and [facility]
--- NOTE | 2025-09-08 08:15 | CT_ITS ---
FINAL REPORT TECHNIQUE: Thin section axial images were obtained from skull base to vertex without contrast. Coronal reconstruction images were obtained from the axial data. Exam was performed using dose reduction techniques such as automated exposure control, adjustment of the mA and kV according to patient size, and use of iterative reconstruction technique. CLINICAL HISTORY: AC, fall injury COMPARISON: 05/26/2025 FINDINGS: There is no mass effect or midline shift. There is no hydrocephalus. There is no intracranial hemorrhage. The posterior fossa is without acute abnormality. The basilar cisterns are preserved. There is a small amount of fluid in the inferior right mastoid air cells. No acute osseous abnormality is identified. IMPRESSION: No acute intracranial abnormality. Reviewed, Interpreted and Dictated by Neetu Waite MD Transcribed by Claudia Hoang Authenticated and [facility]
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
--- NOTE | 2025-09-08 08:15 | CT_ITS ---
FINAL REPORT TECHNIQUE: Thin section axial images were obtained through the cervical spine without contrast. Multiplanar reconstruction images were obtained from the axial data. Exam was performed using dose reduction techniques. CLINICAL HISTORY: AC, fall injury COMPARISON: No priors available for direct comparison. FINDINGS: There is no acute fracture or acute malalignment of the cervical spine. There is multilevel degenerative disc disease. There is no evidence of unilateral or bilateral facet lock. Vertebral body height is preserved. Bilateral thyroid nodules are identified. There are bilateral patchy ground glass opacities. There is a subpleural right upper lobe nodule measuring 5 mm. IMPRESSION: No fracture. Ground glass opacities in the lung apices with right upper lobe nodule. Recommend CT after risk stratification as per Fleischner criteria. Reviewed, Interpreted and Dictated by Neetu Waite MD Transcribed by Claudia Hoang Authenticated and [facility]
--- OUTSIDE RECORDS SUMMARY | 2025-09-08 08:23 | XMS_ITS | Encounter Summary ---
Author Organization [facility] Address [address] [place] [address] Care Team Providers Care Dial Marker Name Role Phone Rad Galvan MD Primary Care Provider + Reason for Visit * Reason Onset Date Comments prescription clarification 08/31/2025 Pheno tavo Encounter Details Date Type Department Care Team (Late st Contact Info) Description 08/31/2025 Telephone [facility] [address] [place] [address] Rad Galvan MD [address] [place] [address] prescription clarification (Phenobarb) Social History Tobacco Use Types Packs/Day Years [...] Encounter - Rose Marie Chamberlain MA - 09/01/2025 11:51 AM EDT I informed pharmacy that it is one nightly. However, they need a corrected Rx sent over to reflect this. * Telephone Encounter - Rose Marie Chamberlain MA - 08/31/2025 11:26 AM EDT Antoinette with Clinic Pharm [facility] [phone] called wanting a corrected / clarified script resent to them for the phenobarbital. Last instructions say TID and I checked with pt and she say's, she takes one tab only at bedtime. This was decreased when she was in the hospital. Please resend. documented in this encounter Plan of Treatment Upcoming Encounters Date Type Department Care Team (Late st Contact Info) Description 10/31/2025 11:00 AM EST Office Visit [facility] [address] [place] [id number] Rad Galvan MD [address] [place] [address] documented as of this encounter Visit Diagnoses Diagnosis Seizure disorder Unspecified epilepsy without mention of intractable epilepsy documented in this encounter Additional Health Concerns Assessment Noted Time PHQ-2 Depression Total Score: 1 02/17/20 24 10:24 AM EDT documented as of this encounter Care Teams Dial Marker Relationship Specialty Start Date End Date Rad Galvan MD [address] [place] [address] PCP - General Family Medicine 04/15/22 documented as of this encounter
--- OUTSIDE RECORDS SUMMARY | 2025-09-08 08:23 | XMS_ITS | Encounter Summary ---
Author Organization [facility] Address [address] [place] [address] Care Team Providers Care Keno Writer Name Role Phone Rad Galvan MD [...] [facility] [address] [place] [address] Rad Galvan MD [address] [facility] [place] [address] documented as of this encounter Visit Diagnoses Not on filedocumented in this encounter Additional Health Concerns Assessment Noted Time PHQ-2 Depression Total Score: 1 02/17/20 24 10:24 AM EDT documented as of this encounter Care Teams Keno Writer Relationship Specialty Start Date End Date Rad Galvan MD [address] [place] [address] PCP - General Family Medicine 04/15/22 documented as of this encounter
--- OUTSIDE RECORDS SUMMARY | 2025-09-08 08:24 | XMS_ITS | Encounter Summary ---
Author Organization [facility] Address [address] [place] [address] Care Team Providers Care Proc Tech Name Role Phone Uli Salcedo Unavailable [phone] Rad Galvan MD Primary Care Provider [phone] Encounter Details Date Type Department Care Team (Late st Contact Info) Description 07/22/2025 Telephone [facility] [place] [address] [facility], [address] [place] [address] Chika Orellana APRN [address] [place] [address] Social History Tobacco Use Types [...] PM EDT Appointment Cardiac Imaging [address] [place] [address] 09/16/2025 4:00 PM EDT Office Visit [facility] [place] [address] [facility] [place] [address] Elvin Schuler MD [address] [place] [address] 10/17/2025 11:40 AM EST Office Visit [facility] Neph[facility], [facility]abolism [address] [facility], [address] [place] [address] Azael Mooney MD [address] [place] [address] documented as of this encounter [...] documented as of this encounter Care Teams Proc Tech Relationship Specialty Start Date End Date Rad Galvan MD [address] [place], [place] [id number] PCP - General 04/08/25 Uli Salcedo PA [address] [place], [place] [id number] Referring Physician 02/03/25 documented as of this encounter
--- OUTSIDE RECORDS SUMMARY | 2025-09-08 08:25 | XMS_ITS | Clinical Summary ---
Author Organization [facility] Address [address] [place] [address] Care Team Providers Care Operations Dispatcher Name Role Phone Uli Salcedo Unavailable [phone] Rad Galvan MD Primary Care Provider [phone] Allergies Active Allergy Reactions Criticality Noted Date [...] doses if needed 90 tablet 6 08/04/20 Active Additional Information Patient not taking.Reported on 08/22/2025 Ozempic, 0.25 or 0.5 MG/DOSE, 2 MG/3ML solution pen-injector inject 0.5 mg subcutaneously once weekly 08/01/20 Active Xarelto 15 MG tablet Take 1 tablet by mouth 1 time each day with dinner. 08/13/20 Active bumetanide (Bumex) 2 MG tablet Take 1 tablet by mouth 2 times a day. 06/29/20 25 Active prednisoLONE acetate (Pred-Forte) 1 % ophthalmic suspension 1 drop 4 times a day. 08/07/20 Active potassium chloride CR (K-Tab) 20 MEQ ER tablet Take 1 tablet by mouth 2 times a day. 08/01/20 Active Active Problems Problem Noted Date Diagnosed Date Obesity (BMI 35.0-39.9 without comorbidity) 06/24 Congestive heart failure 02/18/2025 Encounters Date Type Department Care Team Description 08/22/2025 2:00 PM EDT Office Visit [facility] [address], [address] [place] [address] Thi skelton, Lenore Haider MD Obesity (BMI 35.0-39.9 without comorbidity) (Primary Dx); Chronic systolic congestive heart failure (CMS/HCC); Stage 3b chronic kidney disease (CMS/HCC) 08/22/2025 Travel 08/15/2025 11:00 AM EDT Ancillary Procedure [facility] [place] [address] [place] [address] Chronic combined systolic and diastolic congestive heart failure (CMS/HCC) 08/15/2025 Travel 08/09/2025 Telephone [facility] [address] [place] [address] Elvin Schuler MD HCN - Patient Message 08/09/2025 Travel 08/09/2025 Orders Only [facility] 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 [place] [address] Yaritza Johnson RN 07/27/2025 8:45 AM EDT - 07/27/2025 10:00 AM EDT Surgery Cardiac Transitions Manager [address] [place] [address] Elvin Schuler MD Right heart catheterization [27527 (CPT )] 07/27/2025 8:02 AM EDT - 07/27/2025 10:39 AM EDT Hospital Encounter Cardiac Transitions Manager [address] [place] [address] Elvin Schuler MD Chronic combined systolic and diastolic congestive heart failure (CMS/HCC) Discharge Disposition: Home or Self Care 07/27/2025 Telephone [facility] [address] [place] [address] Yaritza Johnson RN 07/22/2025 Telephone [facility] [address], [address] [place] [address] Chika Orellana, MEAGAN 07/15/2025 10:30 AM EDT Ancillary Procedure [facility] [address] [place] [address] Chronic combined systolic and diastolic congestive heart failure (CMS/HCC) 07/08/2025 1:45 PM EDT Office Visit [facility] 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 [place] [address] Elvin Schuler MD HCN - Patient Message 06/16/2025 Telephone [facility] [place] [address] [place] [address] Elvin Schuler MD HCN - Patient Message 06/15/2025 8:00 AM EDT Ancillary Procedure [facility] [place] [address] [place] [address] Chronic combined systolic and diastolic congestive heart [...] PM EDT Appointment Cardiac Imaging [address] [place] [address] 09/16/2025 4:00 PM EDT Office Visit [facility] [place] [address] [place] [address] Elvin Schuler MD [address] [place] [address] 10/17/2025 11:40 AM EST Office Visit [facility] Nephrology, Bone & Mineral Metabolism [address], [address] [place] [address] Azael Mooney MD [address] [place] [address] Health Maintenance Due Date Last Done Comments [facility]-Bone Density Scan 1957 [facility]-/Child/Adol SDOH Screenings 1957 Diabetes: Dental Exam 1967 [facility]- SDOH Screenings 1975 [facility]-Adult SDOH Screenings 1975 [facility]-Hepatitis A Vaccines (1 of 2 - Risk 2-dose series) 1976 [facility]-DTaP,Tdap,and Td Vaccines (1 - Tdap) 01/24/1997 01/23/1997 CT Colonography 2002 Colonoscopy 2002 FIT 2002 FOBT 2002 Sigmoidoscopy 2002 [facility]-Breast Cancer Screening 2007 [facility]-Zoster Vaccines (1 of 2) 2007 [facility]-Medicare Annual Wellness (AWV) 02/16/2025 02/17/2024 [id number] Vaccine ( season) 2025 09/06/2022, 11/28/2021, 03/06/2021, [...] - 0.95 mg/L 08/22/2025 6:18 PM EDT [facility] Blood Venous blood specimen / Unknown Venipuncture / Unknown 08/22/2025 3:59 PM EDT 08/22/2025 3:59 PM EDT us Lenore Cobos MD LAB BLOOD OR DERABLES Final Result Performing Organization Address City/State/[facility] Co de Phone Number [facility] [address] [place] [address] * Vitamin D 25 Hydroxy (08/22/2025 3:59 PM EDT) Vitamin D 25 Hydroxy 61.8 20.0 - 80.0 ng/mL 08/22/2025 7:20 PM EDT [facility] Blood Venous blood specimen / Unknown Venipuncture / Unknown 08/22/2025 3:59 PM EDT 08/22/2025 3:59 PM EDT Narrative [facility] - 08/22/2025 7:20 PM EDT Testing performed on Izquierdo Portable Irrigation Operator, standardized against NIST SRM 2972. When [...] MD LAB BLOOD OR DERABLES Final Result [facility] [address] [place] [address] * (ABNORMAL) CBC W/O Differential (08/22/2025 3:59 PM EDT) WBC Count 7.37 3.70 - 10.30 10*3/uL LAB HEMATOLOGY METHOD 08/22/2025 5:23 PM EDT [facility] RBC Count 2.97(L) 3.90 - 5.20 10*6/uL LAB HEMATOLOGY METHOD 08/22/2025 5:23 PM EDT [facility] HGB 10.1(L) 11.2 - 15.7 g/dL LAB HEMATOLOGY METHOD 08/22/2025 5:23 PM EDT [facility] HCT 31.6(L) 34.0 - 45.0 % LAB HEMATOLOGY METHOD 08/22/2025 5:23 PM EDT [facility] Platelet Count 208 155 - 369 10*3/uL LAB HEMATOLOGY METHOD 08/22/2025 5:23 PM EDT [facility] MCV 106(H) 79 - 98 fL LAB HEMATOLOGY METHOD 08/22/2025 5:23 PM EDT [facility] MCH 34.0(H) 26.0 - 32.0 pg LAB HEMATOLOGY METHOD 08/22/2025 5:23 PM EDT [facility] MCHC 32.0 30.7 - 35.5 g/dL LAB HEMATOLOGY METHOD 08/22/2025 5:23 PM EDT [facility] RDW 15.4(H) 11.5 - 14.5 % LAB HEMATOLOGY METHOD 08/22/2025 5:23 PM EDT [facility] MPV 10.1 8.8 - 12.5 fL LAB HEMATOLOGY METHOD 08/22/2025 5:23 PM EDT [facility] nRBC 0.0 <=0.0 per 100 WBCs LAB HEMATOLOGY METHOD 08/22/2025 5:23 PM EDT [facility] Blood Venous blood specimen / Unknown Venipuncture / Unknown 08/22/2025 3:59 PM EDT 08/22/2025 3:59 PM EDT Lenore Cobos MD LAB BLOOD OR DERABLES Final Result [facility] [address] [place] [address] * (ABNORMAL) PTH Intact Total (08/22/2025 3:59 PM EDT) PTH Intact Total 242(H) 9 - 77 pg/mL 08/22/2025 6:11 PM EDT [facility] Blood Venous blood specimen / Unknown Venipuncture / Unknown 08/22/2025 3:59 PM EDT 08/22/2025 3:59 PM EDT Narrative [facility] - 08/22/2025 6:11 PM EDT Assay performed by immunoassay at the [facility]. Performed on Izquierdo Portable Irrigation Operator chemiluminescent immunoassay, tractable to the World Health Organization's first international standard for PTH from the [facility], Code 79/500. Results obtained from different test methods or kits cannot be used interchangeably. Lenore Cobos MD LAB BLOOD OR DERABLES Final Result [facility] [address] [place] [address] * (ABNORMAL) Renal Function Panel, Plasma (08/22/2025 3:59 PM EDT) Glucose, Plasma 178(H) 74 - 99 mg/dL 08/22/2025 5:45 PM EDT [facility] BUN, Plasma 32(H) 8 - 23 mg/dL 08/22/2025 5:45 PM EDT [facility] Creatinine, Plasma 1.55(H) 0.60 - 1.10 mg/dL 08/22/2025 5:45 PM EDT [facility] BUN/Creatinine Ratio 21 08/22/2025 5:45 PM EDT [facility] Sodium, Plasma 136 136 - 145 mmol/L 08/22/2025 5:45 PM EDT [facility] Potassium, Plasma 4.6 3.6 - 4.9 mmol/L 08/22/2025 5:45 PM EDT [facility] Chloride, Plasma 92(L) 97 - 107 mmol/L 08/22/2025 5:45 PM EDT [facility] CO2, Plasma 30(H) 22 - 29 mmol/L 08/22/2025 5:45 PM EDT [facility] Anion Gap 14 6 - 16 mmol/L 08/22/2025 5:45 PM EDT [facility] Total Calcium, Plasma 9.6 8.9 - 10.2 mg/dL 08/22/2025 5:45 PM EDT [facility] Phosphorus, Plasma 3.6 2.5 - 4.5 mg/dL 08/22/2025 5:45 PM EDT [facility] Albumin, Plasma 4.1 3.5 - 5.2 g/dL 08/22/2025 5:45 PM EDT [facility] eGFRcr 36.3 mL/min/1.7 3m*2 08/22/2025 5:45 PM EDT [facility] Comment:Reported eGFRcr in m L/min/1.73m2 is based the CKD-EPI 2020 equation that does not use a race coefficient. Blood Venous blood specimen / Unknown Venipuncture / Unknown 08/22/2025 3:59 PM EDT 08/22/2025 3:59 PM EDT us Lenore Cobos MD LAB BLOOD OR DERABLES Final Result [facility] [address] [place], [place] [id number] * Albumin-creatinine ratio, urine, random (08/22/2025 3:48 PM EDT) Microalbumin, Urine <1.2 <1.9 mg/dL 08/22/2025 6:20 PM EDT [facility] Creatinine, Urine 19 mg/dL 08/22/2025 6:20 PM EDT [facility] Albumin/Creatin ine Ratio 08/22/2025 6:20 PM EDT [facility] Comment:Unable to calculate, at least one value is above or below the detection limit. Urine Urine specimen obtained by clean catch procedure / Unknown Non-blood Collection / Unknown 08/22/2025 3:48 PM EDT 08/22/2025 3:48 PM EDT Lenore Cobos MD LAB URINE OR DERABLES Final Result Performing Organization Address City/[facility]/ZIP Co de Phone Number [facility] [address] [place] [address] * Protein, Random, Urine with Creatinine (08/22/2025 3:48 PM EDT) Protein, Urine 6 mg/dL 08/22/2025 5:50 PM EDT [facility] Creatinine, Urine 19 mg/dL 08/22/2025 5:50 PM EDT [facility] Protein/Creati nine Ratio 0.3 mg/mg Creat 08/22/2025 5:50 PM EDT [facility] Urine Urine specimen obtained by clean catch procedure / Unknown Non-blood Collection / Unknown 08/22/2025 3:48 PM EDT 08/22/2025 3:48 PM EDT Lenore Cobos MD LAB URINE OR DERABLES Final Result Performing Organization Address [facility] de Phone Number [facility] [address] [place] [address] * (ABNORMAL) Urinalysis with reflex microscopic (Culture NOT Included) (08/22/2025 3:48 PM EDT) Color, Urine Yellow LAB URINALYSIS - AUTOMATED METHOD 08/22/2025 5:22 PM EDT [facility] Clarity, Urine Clear LAB URINALYSIS - AUTOMATED METHOD 08/22/2025 5:22 PM EDT [facility] Spec Parmelee, Urine 1.009 1.005 - 1.030 LAB URINALYSIS - AUTOMATED METHOD 08/22/2025 5:22 PM EDT [facility] pH, Urine 7.0 5.0 - 8.0 LAB URINALYSIS - AUTOMATED METHOD 08/22/2025 5:22 PM EDT [facility] Protein, Urine Negative Negative mg/dL LAB URINALYSIS - AUTOMATED METHOD 08/22/2025 5:22 PM EDT [facility] Glucose, Urine 500(A) Negative mg/dL LAB URINALYSIS - AUTOMATED METHOD 08/22/2025 5:22 PM EDT [facility] Ketones, Urine Negative Negative mg/dL LAB URINALYSIS - AUTOMATED METHOD 08/22/2025 5:22 PM EDT [facility] Blood, Urine Negative Negative LAB URINALYSIS - AUTOMATED METHOD 08/22/2025 5:22 PM EDT [facility] Bilirubin, Urine Negative Negative LAB URINALYSIS - AUTOMATED METHOD 08/22/2025 5:22 PM EDT [facility] Urobilinogen, Urine 0.2 0.2 to 1.0 mg/dL LAB URINALYSIS - AUTOMATED METHOD 08/22/2025 5:22 PM EDT [facility] Leukocytes, Urine Negative Negative LAB URINALYSIS - AUTOMATED METHOD 08/22/2025 5:22 PM EDT [facility] Nitrite, Urine Negative Negative LAB URINALYSIS - AUTOMATED METHOD 08/22/2025 5:22 PM EDT [facility] Urine Urine specimen obtained by clean catch procedure / Unknown Non-blood Collection / Unknown 08/22/2025 3:48 PM EDT 08/22/2025 3:48 PM EDT Lenore Cobos MD LAB URINE OR DERABLES Final Result [facility] [address] [place] [address] * RIGHT HEART CATHETERIZATION (07/27/2025 9:01 AM [...] then carried out using a 7.5F VIP [place]-Po catheter. Pressures were recorded as the catheter [...] the patient was transferred back to the lab scientist holding area in good condition. Hemodynamic Data [...] POCT CO-Oximitry, Venous (07/27/2025 8:59 AM EDT) [facility] POCT OXYHEMOGLOBIN, VENOUS 62 40 - 70 % 07/27/2025 8:57 AM EDT [facility] Svp Monetization ID Jael Zhong ch 07/27/2025 8:57 AM EDT [facility] Device ID [id number] 07/27/2025 8:57 AM EDT [facility] POCT Sample Site PA 07/27/2025 8:57 AM EDT [facility] POCT Total Hemoglobin 10.4(L) 11.2 - 15.7 g/dL 07/27/2025 8:57 AM EDT [facility] Venous blood specimen / Unknown 07/27/2025 8:59 AM EDT 07/27/2025 8:57 AM EDT us Elvin Schuler MD LAB POINT OF CARE T EST DOCKED DEVICE UNSOLICITED RESULTS Final Result [facility] [address] [place] [address] * (ABNORMAL) N-Terminal Probnp, Plasma (07/08/2025 3:19 PM EDT) Only the most recent of3 resultswithin the time period is included. N-Terminal, PROBNP, Plasma 1,459(H) 0 - 899 pg/mL 07/08/2025 4:28 PM EDT [facility] Blood Venous blood specimen / Unknown Venipuncture / Unknown 07/08/2025 3:19 PM EDT 07/08/2025 3:54 PM EDT us Chika Orellana BRANCH COORDINATOR LAB BLOOD ORDERABLES Final Result [facility] [address] [place] [address] * (ABNORMAL) Comprehensive metabolic panel (07/08/2025 3:19 PM EDT) Glucose, Plasma 84 74 - 99 mg/dL 07/08/2025 4:28 PM EDT [facility] BUN, Plasma 52(H) 8 - 23 mg/dL 07/08/2025 4:28 PM EDT [facility] Creatinine, Plasma 1.80(H) 0.60 - 1.10 mg/dL 07/08/2025 4:28 PM EDT [facility] BUN/Creatinine Ratio 29 07/08/2025 4:28 PM EDT [facility] Sodium, Plasma 130(L) 136 - 145 mmol/L 07/08/2025 4:28 PM EDT [facility] Potassium, Plasma 3.7 3.6 - 4.9 mmol/L 07/08/2025 4:28 PM EDT [facility] Chloride, Plasma 87(L) 97 - 107 mmol/L 07/08/2025 4:28 PM EDT [facility] CO2, Plasma 28 22 - 29 mmol/L 07/08/2025 4:28 PM EDT [facility] Anion Gap 15 6 - 16 mmol/L 07/08/2025 4:28 PM EDT [facility] Total Calcium, Plasma 9.4 8.9 - 10.2 mg/dL 07/08/2025 4:28 PM EDT [facility] Total Protein 8.0(H) 6.3 - 7.9 g/dL 07/08/2025 4:28 PM EDT [facility] Albumin, Plasma 4.4 3.5 - 5.2 g/dL 07/08/2025 4:28 PM EDT [facility] AST, Plasma 40(H) 10 - 35 U/L 07/08/2025 4:28 PM EDT [facility] Comment:Hemolyzed, result ma y be falsely increased. ALT, Plasma 19 10 - 35 U/L 07/08/2025 4:28 PM EDT [facility] Alkaline Phosphatase, Plasma 202(H) 46 - 142 U/L 07/08/2025 4:28 PM EDT [facility] Total Bilirubin, Plasma 0.8 0.2 - 1.1 mg/dL 07/08/2025 4:28 PM EDT [facility] eGFRcr 30.4 mL/min/1.7 3m*2 07/08/2025 4:28 PM EDT [facility] Comment:Reported eGFRcr in m L/min/1.73m2 is based the CKD-EPI 2020 equation that does not use a race coefficient. Blood Venous blood specimen / Unknown Venipuncture / Unknown 07/08/2025 3:19 PM EDT 07/08/2025 3:54 PM EDT us Chika Orellana BRANCH COORDINATOR LAB BLOOD ORDERABLES Final Result [facility] [address] [place] [address] * (ABNORMAL) Basic Metabolic Panel, Plasma (06/23/2025 [...] specimen / Unknown 06/23/2025 10:40 AM EDT [facility] Provider LAB BLOOD ORDERABLES Final R esult EXTERNAL LAB * [place] Hepatitis C Antibody (11/26/2020 6:51 PM EST) [place] Hepatitis C Ab NEGATIVE Reference Range: Negative SUNQUEST 11/26/2020 6:51 PM EST 11/26/2020 7:09 PM EST Justo Morse MD LAB BLOOD ORDERABLES Final Re sult Performing Organization Address City/[facility]/ZIP Co de Phone Number SUNQUEST from Last 3 Months or Most Recently Relevant to Health Maintenance Insurance MEDICARE Advance Directives Documents on File Type Date Recorded Patient Environmental Web Crawler Expl anation Advance Directives and Living Will 03/30/2025 LIVING WILL DIRECTIV E * Full Code (Latest Code Status on File) Date Activated Date Inactivated Comments 07/27/2025 9:34 AM 07/27/2025 12:40 PM Question Answer Comments Patient has decision-making capacity? Yes Healthcare Agents on File Name Relationship Healthcare Agent Relationshi p Communication Yennifer Edwards Daughter Next of Kin Care Teams Operations Dispatcher Relationship Specialty Start Date End Date Rad Galvan MD [address] [place] [address] PCP - General 04/08/25 Uli Salcedo PA [address] [place] [address] Referring Physician 02/03/25
--- OUTSIDE RECORDS SUMMARY | 2025-09-08 08:25 | XMS_ITS | Encounter Summary ---
Author Organization [facility] Address [address] [place] [address] Care Team Providers Care Assistant Controller Name Role Phone Rad Galvan MD Primary Care Provider + Encounter Details Date Type Department Care Team (Late st Contact Info) Description 08/15/2025 External PBMM Data [facility] [address] [place] [address] [place] [address] Pharmacy, Payor Data Social History Tobacco Use [...] [facility] [address] [place] [address] Rad Galvan MD [address] [place] [address] documented as of this encounter Visit Diagnoses Not on filedocumented in this encounter Additional Health Concerns Assessment Noted Time PHQ-2 Depression Total Score: 1 02/17/20 24 10:24 AM EDT documented as of this encounter Care Teams Assistant Controller Relationship Specialty Start Date End Date Rad Galvan MD [address] [place] [address] PCP - General Family Medicine 04/15/22 documented as of this encounter
--- OUTSIDE RECORDS SUMMARY | 2025-09-08 08:25 | XMS_ITS | Encounter Summary ---
Author Organization [facility] Address [address] [place] [address] Care Team Providers Care Lead Network Architect Name Role Phone Uli Salcedo Unavailable [phone] Rad Galvan MD Primary Care Provider [phone] Encounter Details Date Type Department Care Team [...] PM EDT Appointment Cardiac Imaging [address] [place] [address] 09/16/2025 4:00 PM EDT Office Visit [facility] [place] [address] [facility] [place] [address] Elvin Schuler MD [address] [place] [address] 10/17/2025 11:40 AM EST Office Visit [facility] Nephrology, Bone & Mineral Metabolism [address], [address] [place] [address] Azael Mooney MD [address] [place] [address] documented as of this encounter [...] as of this encounter Care Teams Lead Network Architect Relationship Specialty Start Date End Date Rad Galvan MD [address] [place] [address] PCP - General 04/08/25 Uli Salcedo PA [address] [place] [address] Referring Physician 02/03/25 documented as of this encounter
--- OUTSIDE RECORDS SUMMARY | 2025-09-08 08:25 | XMS_ITS ---
Author Organization [facility] Address [address] [place] [address] Care Team Providers Care [place] Paralegal Name Role Phone Rad Galvan MD Primary Care Provider + [facility] Status:Enrolled (Active) Start date:04/13/2025 Enrollment date:04/13/2025 Current support & services provided:Adherence- Cholesterol, Adherence- Hypertension Linked medications:Atorvastatin Calcium (Active), Valsartan (Active) Overview Atorvastatin and valsartan filled 03/26/2025 #30 day both have refills Case Team Name Relationship Phone Danielle Da Silva LPN(Responsible Staff) Licensed Mane cody Nurse Continued Care and Services Coordination
--- OUTSIDE RECORDS SUMMARY | 2025-09-08 08:26 | XMS_ITS | Encounter Summary ---
Author Organization [facility] Address [address] [place] [address] Care Team Providers Care Drapery Hanger Name Role Phone Rad Galvan MD Primary Care Provider + Reason for Visit * Reason Comments Med Refill Encounter Details Date Type Department Care Team (Late st Contact Info) Description 08/01/2025 Refill [facility] [address] [facility] [place] [address] Rad Galvan MD [address] [facility] [place] [address] Diabetic peripheral neuropathy associated with [...] EST Office Visit [facility] [address] [place] [address] Rad Galvan MD [address] [place] [address] documented as of this encounter Visit Diagnoses Diagnosis Diabetic peripheral neuropathy associated with type 2 diabetes mellitus documented in this encounter Additional Health Concerns Assessment Noted Time PHQ-2 Depression Total Score: 1 02/17/20 24 10:24 AM EDT documented as of this encounter Care Teams Drapery Hanger Relationship Specialty Start Date End Date Rad Galvan MD [address] [address] PCP - General Family Medicine 04/15/22 documented as of this encounter
--- OUTSIDE RECORDS SUMMARY | 2025-09-08 08:26 | XMS_ITS | Encounter Summary ---
Author Organization [facility] Address [address] [id number] Care Team Providers Care Recording Studio Intern Name Role Phone Rad Galvan MD Primary Care Provider + Reason for Visit * Reason Onset Date Comments Med Refill 08/25/2025 Encounter Details Date Type Department Care Team (Late st Contact Info) Description 08/25/[address] [facility] [address] [place] [address] Rad Galvan MD [address] [place] [address] Restless leg syndrome Social History Tobacco Use Types Packs/Day Years [...] Telephone Encounter - Triny Montero LPN - 08/30/2025 11:36 AM EDT Spoke with pt aware of response * Telephone Encounter - Rad Galvan MD - 08/26/2025 7:52 AM EDT This medicine has refills available and a new rx should not be needed * Telephone Encounter - Annamaria Cerda RegSched Rep - 08/25/2025 3:23 PM EDT Caller: Sara Edwards Relationship: Self Best call back number:[phone] Requested Prescriptions: Requested Prescriptions Pending Prescriptions Disp Refills rOPINIRole (REQUIP) 2 MG tablet 30 tablet 11 Sig: Take 1 tablet by mouth every night at bedtime. Pharmacy where request should be sent: [facility] [address] - [phone] - [phone] FX Last office visit with prescribing clinician: 08/01/2025 Last telemedicine visit with prescribing clinician: Visit date not found Next office visit with prescribing clinician: 10/31/2025 Additional details provided by patient: PATIENT IS OUT. SHE STATES WHEN SHE WAS IN THE HOSPITAL, THEY DISCONTINUED THIS MEDICATION. SHE WOULD LIKE TO SEE IF WE CAN CALL THIS MEDICATION IN FOR HER HER LEGS ARE BOTHERING HER VERY BADLY. Does the patient have less than a 3 day supply: [x] Yes [] No Would you like a call back once the refill request has been completed: [] Yes [x] No If the office needs to give you a call back, can they leave a voicemail: [] Yes [x] No Dominique Rojas 08/25/25 15:24 EDT documented in this encounter Plan of Treatment Upcoming Encounters Date Type Department Care Team (Late st Contact Info) Description 10/31/2025 11:00 AM EST Office Visit [facility] [address] [place] [address] Rad Galvan MD [address] [place] [address] documented as of this encounter Visit Diagnoses Diagnosis Restless leg syndrome Restless legs syndrome (RLS) documented in this encounter Additional Health Concerns Assessment Noted Time PHQ-2 Depression Total Score: 1 02/17/20 24 10:24 AM EDT documented as of this encounter Care Teams Recording Studio Intern Relationship Specialty Start Date End Date Rad Galvan MD [address] [place] [address] PCP - General Family Medicine 04/15/22 documented as of this encounter
--- OUTSIDE RECORDS SUMMARY | 2025-09-08 08:26 | XMS_ITS | Encounter Summary ---
Author Organization [facility] Address [address] [place] [address] Care Team Providers Care Road Machine Runner Name Role Phone Rad Galvan MD Primary Care Provider + Reason for Visit * Reason Onset Date Comments ORDERS 07/29/2025 Encounter Details Date Type Department Care Team (Late st Contact Info) Description 07/29/2025 Telephone [facility] [address] [place] [address] Rad Galvan MD [address] [place] [address] ORDERS Social History Tobacco Use [...] Edwards Relationship: Self Best call back number: [phone] What is the best time to reach you: ANYTIME Who are you requesting to speak with (clinical staff, provider, specific staff member): CLINICAL STAFF What was the call regarding: PATIENT IS CALLING TO SEE IF SHE CAN HAVE LABS DRAWN FOR HER UPCOMING WELLNESS VISIT, INCLUDING THE A1C, BE SENT TO [facility] Is it okay if the provider responds through MyChart: YES documented in this encounter Plan of Treatment Upcoming Encounters Date Type Department Care Team (Late st Contact Info) Description 10/31/2025 11:00 AM EST Office Visit [facility] [address] [place] [address] Rad Galvan MD [address] [place] [address] documented as of this encounter Visit Diagnoses Not on filedocumented in this encounter Additional Health Concerns Assessment Noted Time PHQ-2 Depression Total Score: 1 02/17/20 24 10:24 AM EDT documented as of this encounter Care Teams Road Machine Runner Relationship Specialty Start Date End Date Rad Galvan MD [address] [place] [address] PCP - General Family Medicine 04/15/22 documented as of this encounter
--- OUTSIDE RECORDS SUMMARY | 2025-09-08 08:26 | XMS_ITS | Clinical Summary ---
Author Organization [facility] Address [address] [place] [address] Care Team Providers Care Child Care Cook Name Role Phone Rad Galvan MD Primary Care Provider + Allergies Active Allergy Reactions Criticality Noted Date Comments Empagliflozin Itching Low 01/21/2025 Methylphenidate Itching Medium 02/18/2025 Metoclopramide Rash Low 04/15/2022 Medications Morrison-3 Fatty Acids (fish oil) 1000 MG capsule capsule Take 2 capsules by mouth Daily With Breakfast. Active multivitamin with minerals tablet tablet Take 1 tablet by mouth Daily. Active polyethylene glycol (MiraLax) 17 GM/SCOOP powderIndications :Drug-induced constipation Take 17 g by mouth Daily. 850 g 2 05/13/20 23 Active nitroglycerin (NITROSTAT) 0.[address] 1 tablet under the tongue Every 5 (Five) Minutes As Needed for Chest Pain. Take no more than 3 doses in 15 minutes. 30 tablet 11/18/20 23 Active loratadine (CLARITIN) 10 MG tabletIndications :Allergic rhinitis due to pollen TAKE ONE TABLET BY MOUTH EVERY DAY 30 tablet 11 05/28/20 24 Active Comfort EZ Pen [place] 32G X 6 MM misc USE DIRECTED FOR insulin injections 100 each 5 12/03/19 25 Active dapagliflozin Propanediol (Farxiga) 10 MG tablet Take by mouth. From cardio Active valsartan (Diovan) 40 MG tabletIndications :Chronic left ventricular systolic dysfunction Take 1 tablet by mouth 2 (Two) Times a Day. 01/17/20 25 Active Additional Information Patient taking differently:40 mg OralDaily, Reported on 08/17/2025 insulin aspart (NovoLOG FlexPen) 100 UNIT/ML solution pen-injector sc penIndications:Ty pe 2 diabetes mellitus with hyperglycemia, with long-term current use of insulin Inject 8 Units under the skin into the appropriate area as directed As Needed (glucose >400). 3 mL 01/20/20 25 Active metoprolol succinate XL (TOPROL-XL) 25 MG 24 hr tablet Take 0.5 tablets by mouth Daily. 02/04/20 25 Active Continuous Glucose Typewriter Ribbon Winder (FreeStyle Simón 3 [place]) deviceIndications :Type 2 diabetes mellitus with hypoglycemia without coma, with long-term current use of insulin,Type 2 diabetes mellitus with hyperglycemia, with long-term current use of insulin Use 1 each Daily. 1 each 02/12/20 25 Active Continuous Glucose Sensor (FreeStyle Simón 3 Plus Sensor)Indication s:Type 2 diabetes mellitus with hypoglycemia without coma, with long-term current use of insulin,Type 2 diabetes mellitus with hyperglycemia, with long-term current use of insulin Use Every 15 (Fifteen) Days. 2 each 02/12/20 25 Active potassium chloride (KLOR-CON M20) 20 MEQ CR tabletIndications :jail current use of diuretic TAKE ONE TABLET BY MOUTH TWICE DAILY 60 tablet 3 03/02/20 25 Active Semaglutide,0.25 or 0.5MG/DOS, (OZEMPIC) 2 MG/3ML solution pen-injectorIndic ations:Type 2 diabetes mellitus with hyperglycemia, with long-term current use of insulin Inject 0.25 mg under the skin into the appropriate area as directed 1 (One) Time Per Week. 04/07/20 25 Active insulin NPH-insulin regular (humuLIN 70/30,novoLIN 70/30) (70-30) 100 UNIT/ML injectionIndicati ons:Type 2 diabetes mellitus with hyperglycemia, with long-term current use of insulin 40 units q AM and 40 units q PM 04/07/20 25 Active traMADol (ULTRAM) 50 MG tabletIndications :Chronic midline low back pain without sciatica Take 1 tablet by mouth Every 6 (Six) Hours As Needed for Moderate Pain. 120 tablet 3 04/12/20 25 Active bumetanide (BUMEX) 1 MG tablet TAKE TWO TABLETS BY MOUTH EVERY DAY 60 tablet 2 04/20/20 25 Active rOPINIRole (REQUIP) 2 MG tabletIndications :Restless leg syndrome TAKE ONE TABLET BY MOUTH EVERY NIGHT 30 tablet 11 06/02/20 25 Active pantoprazole (PROTONIX) 40 MG EC tabletIndications :Gastroesophageal reflux disease without esophagitis TAKE ONE TABLET BY MOUTH TWICE DAILY 60 tablet 06/02/20 25 Active atorvastatin (LIPITOR) 10 MG tabletIndications :Type 2 diabetes mellitus with hyperglycemia TAKE ONE TABLET BY MOUTH EVERY DAY 30 tablet 11 06/02/20 25 Active Additional Information Patient taking differently: 40 mgOral Daily, Reported on 08/17/2025 allopurinol (ZYLOPRIM) 100 MG tablet TAKE ONE TABLET BY MOUTH EVERY DAY 60 tablet 5 06/30/20 25 Active digoxin (LANOXIN) 125 MCG tabletIndications :Longstanding persistent atrial fibrillation TAKE ONE TABLET BY MOUTH EVERY DAY 30 tablet 5 06/30/20 25 Active spironolactone (ALDACTONE) 25 MG tablet TAKE ONE TABLET BY MOUTH EVERY DAY 90 tablet 1 06/30/20 25 Active Additional Information Patient taking differently: (No dose reported), Oral2 Times Daily, Reported on 08/17/2025 potassium chloride ER (K-TAB) 20 MEQ tablet controlled-releas e ER tabletIndications :Hypokalemia Take 1 tablet by mouth Every 12 (Twelve) Hours. 6 tablet 5 08/01/20 25 Active gabapentin (NEURONTIN) 600 MG tabletIndications :Diabetic peripheral neuropathy associated with type 2 diabetes mellitus TAKE ONE TABLET BY MOUTH TWICE DAILY MAY CAUSE DROWSINESS 60 tablet 3 08/01/20 25 Active DULoxetine (CYMBALTA) 30 MG capsule Take 1 capsule by mouth Daily. Active metOLazone (ZAROXOLYN) 5 MG tablet Take 1 tablet by mouth Every Other Day. Active prednisoLONE acetate (PRED FORTE) 1 % ophthalmic suspension 1 drop 4 (Four) Times a Day. Active PHENobarbital 32.4 MG tabletIndications :Seizure disorder Take 1 tablet by mouth Every Night. 30 tablet 5 09/01/20 25 Active rivaroxaban (XARELTO) 20 MG tablet Take 1 tablet by mouth Daily. 025 Discontin ued(*Ther apy completed ) isosorbide mononitrate (IMDUR) 30 MG 24 hr tablet Take 1 tablet by mouth Daily. 025 Discontin ued(*Ther apy completed ) PHENobarbital 32.4 MG tabletIndications :Seizure disorder TAKE THREE TABLETS BY MOUTH EVERY DAY AT BEDTIME 90 tablet 5 06/30/20 25 025 Discontin ued(Reord er) Active Problems [...] & Plan (08/01/2025 11:01 AM EDT): {Diabetes (Optional):5907335700} Assessment & Plan (01/20/2025 11:47 AM EST): [...] evening. She will be referred back to [facility] podiatry for topical interventions that may [...] & Plan (08/01/2025 11:01 AM EDT): {CHF (Optional):30149} Seizure disorder 04/15/2022 Assessment & Plan (08/01/2025 11:01 AM EDT): Encounters Date Type Department Care Team Description 08/31/2025 Telephone [facility] [address] [place] [address] Rad Galvan MD prescription clarification (Phenobarb) 08/25/2025 Refill [facility] [address] [place] [address] Rad Galvan MD Restless leg syndrome 08/17/2025 2:00 PM EDT Office Visit [facility] [address] [place] [address] Desi Beckford, MEAGAN Hospital discharge follow-up (Primary Dx); Stage 4 chronic kidney disease; Pneumonia of right lung due to infectious organism, unspecified part of lung; Gastrointestinal hemorrhage, unspecified gastrointestinal hemorrhage type 08/17/2025 Travel 08/15/2025 External PBMM Data [facility] [address] [facility] [place] [address] Pharmacy, Payor Data 08/02/2025 Telephone [facility] [address] [place] [address] Rad Galvan MD PHARMACY CALLS 08/02/2025 Documentation [facility] [address] [facility] [address] [place] [address] Stormy Wade PA 08/01/2025 10:15 AM EDT Office Visit [facility] [address] [facility] [place] [address] Rad Galvan MD Type 2 diabetes mellitus [...] long-term current use of insulin 08/01/2025 Refill [facility] [address] [facility] [place] [address] Rad Galvan MD Diabetic peripheral neuropathy associated with type 2 diabetes mellitus 08/01/2025 Travel 07/29/2025 Telephone [facility] [address] [place] [address] Rad Galvan MD ORDERS 07/18/2025 Telephone [facility] [address] [place] [address] Rad Galvan MD PHARMACY CALLS 07/18/2025 Telephone [facility] [address] [place] [address] Rad Galvan MD 07/15/2025 Telephone [facility] [address] [place] [address] Rad Galvan MD CALLBACK REQUEST 07/15/2025 Telephone [facility] [address] [facility] [place] [address] Rad Galvan MD New Med Request 07/13/2025 10:53 AM EDT - 07/13/2025 11:59 PM EDT Hospital Encounter [facility] XRAY [address] [place] [address] Sidney Barraza MD Discharge Disposition: Home or Self Care 07/13/2025 9:00 AM EDT Office Visit [facility] [address] [address] Sidney Barraza MD Chronic HFrEF (heart failure with reduced ejection fraction) (Primary Dx); Longstanding persistent atrial fibrillation 07/13/2025 Travel 07/07/2025 11:15 AM EDT Office Visit [facility] [address] [facility] [place] [address] Rad Galvan MD Left ventricular systolic dysfunction, chronic (Primary Dx); Viral cardiomyopathy; Nocturnal headaches; Obstructive sleep apnea 07/07/2025 Travel 06/30/2025 Travel 06/30/2025 Refill [facility] [address] [facility] [place] [address] Rad Galvan MD Longstanding persistent atrial fibrillation; Seizure disorder 06/28/2025 Telephone [facility] [address] [facility] [place] [address] Rad Galvan MD PAPERWORK REQUEST; PAPERWORK REQUEST - SEVERAL CALLS 06/27/2025 Telephone [facility] [address] [facility] [place] [address] Rad Galvan MD PAPERWORK REQUEST 06/21/2025 Telephone [facility] [address] [facility] [place] [address] Rad Galvan MD FOLLOW UP ON FAX from Last 3 Months Immunizations Immunization Administration [...] Description 10/31/2025 11:00 AM EST Office Visit [facility] [address] [facility] [place] [address] Rad Galvan MD [address] [facility] [place] [address] Health Maintenance Due Date Last Done [...] Date/Time Associated Diagnosis Comments SCANNED - LABS 08/30/2025 SCANNED - LABS 08/30/2025 SCANNED - LABS 08/30/2025 SCANNED - IMAGING 08/26/2025 SCANNED EKG 08/17/2025 SCANNED - LABS 08/17/2025 [...] - LABS 06/20/2025 SCANNED - LABS 06/17/2025 POC ALBUMIN/CREATININE RATIO Routine 01/07/2025 3:18 PM EST Type 2 diabetes mellitus with hyperglycemia, with long-term current use of insulin SCANNED - DEXA 02/18/2023 SCANNED - MAMMO 02/18/2023 COLOGUARD Routine 02/15/2023 4:07 PM EDT Colon cancer screening from Last 3 Months or Most Recently Relevant to Health Maintenance Results * LABS SCANNED (08/30/2025) Only the most recent of17 resultswithin the time period is included. Rad Galvan MD LAB BLOOD ORDERABLES Fin al Result * IMAGING SCANNED (08/26/2025) Only the most recent of10 resultswithin the time period is included. Anatomical Region Laterality Modality Radiographic Gracie ging us Rad Galvan MD IMG DIAGNOSTIC IMAGING O RDERABLES Final Result * ECG Scan (08/17/2025) Only the most recent of5 resultswithin the time period is included. us Rad Galvan MD ECG ORDERABLES Final Re sult * (ABNORMAL) POC Glycosylated Hemoglobin (Hb A1C) (08/01/2025 10:40 AM EDT) Hemoglobin A1C 7.2(A) 4.5 - 5.7 % [facility] Lot Number [id number] [facility] Expiration Date 03/09/2027 [facility] Blood 08/01/2025 10:4 0 AM EDT Rad Galvan MD POINT OF CARE TEST ORDER RICH Final Result [facility]
[address] [place] [address], * FOOT EXAM SCANNED (07/26/2025) Rad Galvan [...] MD 07/13/2025 4:13 PM EDT Workstation ID: [id number] Narrative 07/13/2025 4:13 PM EDT XR CHEST [...] MD 07/13/2025 4:13 PM EDT Workstation ID: [id number] Result [facility] Sidney Barraza MD IMG DIAGNOSTIC IMAGING ORDER [...] atrial fibrillation and paced BPM: 77 Result [facility] Sidney Barraza MD ECG ORDERABLES Final Result [...] Positive( A) Negative 02/25/2023 5:18 PM EDT [email or web address] (CLIA #:[id number]) Comment: POSITIVE TEST RESULT. A positive Cologuard [...] (Kathleen Roberts al, N Engl J Med 2014;370(14):9638-5620.) Cologuard may produce a false negative or false positive result (no colorectal cancer or precancerous polyp present at colonoscopy follow up). A negative Cologuard test result does not guarantee the absence of CRC or advanced adenoma (pre-cancer). The current Cologuard screening interval is every 3 years. ([place] [employer] Society and U.S. Multi-Society Task Force). Cologuard performance data in a 10,000 patient pivotal study using colonoscopy as the reference method can be accessed at the following location: www.[employer]/results. Additional description of the Cologuard test process, warnings and precautions can be found at www.cologuard.com. Stool specimen (specimen) Specimen from rectum / Unknown 02/15/2023 4:07 PM EDT 02/18/2023 3:05 PM EDT Rad Galvan MD BODY FLUIDS AND STOOLS O RDERABLES Final Result [email or web address] (CLIA #:[id number]) [address] [place] [address], from Last 3 Months or Most Recently Relevant to Health Maintenance [place] [address] Medicare [employer] PPO Care Teams Child Care Cook Relationship Specialty Start Date End Date aRd Galvan MD [facility] [place] [address] PCP - General Family Medicine 04/15/22
--- OUTSIDE RECORDS SUMMARY | 2025-09-08 08:26 | XMS_ITS | Encounter Summary ---
Author Organization [facility] Address [address] [place] [address] Care Team Providers Care Filling Operator Name Role Phone Rad Galvan MD Primary Care Provider + Reason for Visit * Reason Onset Date Comments PHARMACY CALLS 08/02/2025 Encounter Details Date Type Department Care Team (Late st Contact Info) Description 08/02/2025 Telephone [facility] [address] [place] [address] Rad Galvan MD [address] [place] [address] PHARMACY CALLS Social History Tobacco [...] MD - 08/02/2025 1:35 PM EDT Patient's bullet casting operator will have to contacted. * Telephone Encounter - Marlen Mittal RegSched Rep - 08/02/2025 9:26 AM EDT Pharmacy Name: [facility] [address] [place] - [address] - [phone] - [phone] Pharmacy field support representative name: ROSALBA Pharmacy field support representative phone number:[phone] What medication are you calling in regards to: SPIRONOLACTONE What question does the pharmacy have: THE PATIENT TOLD THE PHARMACY THAT HER FINANCIAL SERVICES INTERN INCREASEDHER DOSE FROM ONE 25 MG TABLET [...] [facility] [address] [place] [phone] Rad Galvan MD [address] [place] [address] documented as of this encounter Visit Diagnoses Not on filedocumented in this encounter Additional Health Concerns Assessment Noted Time PHQ-2 Depression Total Score: 1 02/17/20 24 10:24 AM EDT documented as of this encounter Care Teams Filling Operator Relationship Specialty Start Date End Date Rad Galvan MD [address] [place] [address] PCP - General Family Medicine 04/15/22 documented as of this encounter
--- OUTSIDE RECORDS SUMMARY | 2025-09-08 08:26 | XMS_ITS | Encounter Summary ---
Author Organization [facility] Address [address] [place] [id number] Care Team Providers Care Circus Supervisor Name Role Phone Rad Galvan MD Primary Care Provider + Encounter Details Date Type Department Care Team (Late st Contact Info) Description 08/02/2025 Documentation [facility] [address] [facility] [address] [place] [phone] Stormy Wade PA [address] [facility] [address] [place] [address] Social History Tobacco Use Types Packs/Day Years [...] Description 10/31/2025 11:00 AM EST Office Visit [facility] [address] [place] [address] Rad Galvan MD [address] [place] [address] documented as of this encounter Visit Diagnoses Not on filedocumented in this encounter Additional Health Concerns Assessment Noted Time PHQ-2 Depression Total Score: 1 02/17/20 24 10:24 AM EDT documented as of this encounter Care Teams Circus Supervisor Relationship Specialty Start Date End Date Rad Galvan MD [address] [place] [address] PCP - General Family Medicine 04/15/22 documented as of this encounter
--- OUTSIDE RECORDS SUMMARY | 2025-09-08 08:26 | XMS_ITS | Encounter Summary ---
Author Organization [facility] Address [address] [place] [address] Care Team Providers Care Lanolin Plant Operator Name Role Phone Rad Galvan MD [...] Description 10/31/2025 11:00 AM EST Office Visit [facility] [address] [facility] [place] [address] Rad Galvan MD [address] [place] [address] documented as of this encounter Visit Diagnoses Not on filedocumented in this encounter Additional Health Concerns Assessment Noted Time PHQ-2 Depression Total Score: 1 02/17/20 24 10:24 AM EDT documented as of this encounter Care Teams Lanolin Plant Operator Relationship Specialty Start Date End Date Rad Galvan MD [address] [place] [address] PCP - General Family Medicine 04/15/22 documented as of this encounter
--- OUTSIDE RECORDS SUMMARY | 2025-09-08 08:27 | XMS_ITS | Encounter Summary ---
Author Organization [facility] Address [address] [place] [address] Care Team Providers Care Websphere Administrator Name Role Phone Uli Salcedo Unavailable [phone] Rad Galvan MD Primary Care Provider [...] PM EDT Appointment Cardiac Imaging [address] [place] [address] 09/16/2025 4:00 PM EDT Office Visit [facility] [address] [place] [phone] Elvin Schuler MD [address] [place] [address] 10/17/2025 11:40 AM EST Office Visit [facility] Nephrology, Bone & Mineral Metabolism [address] [facility], [address] [place] [address] Azael Mooney MD [address] [place] [address] documented as of this encounter [...] documented as of this encounter Care Teams Websphere Administrator Relationship Specialty Start Date End Date Rad Galvan MD [address] [place] [address] PCP - General 04/08/25 Uli Salcedo PA [address] [place] [address] Referring Physician 02/03/25 documented as of this encounter
--- OUTSIDE RECORDS SUMMARY | 2025-09-08 08:27 | XMS_ITS | Encounter Summary ---
Author Organization [facility] Address [address] [place] [address] Care Team Providers Care Detail Supervisor Name Role Phone Uli Salcedo Unavailable [phone] Rad Galvan MD Primary Care Provider [phone] Encounter Details Date Type Department Care Team (Late st Contact Info) Description 08/09/2025 Orders Only [facility] [address] [place] [address] Linda Garcia, RN CH-ADULT ECMO [...] PM EDT Appointment Cardiac Imaging [address] [place] [address] 09/16/2025 4:00 PM EDT Office Visit [facility] [address] [place] [address] Elvin Schuler MD [address] [place] [address] 10/17/2025 11:40 AM EST Office Visit [facility] Nephrology, Bone & Mineral Metabolism [address] [facility], [address] [place] [address] Azael Mooney MD [address] [place] [address] Scheduled Orders Name Type Priority [...] documented as of this encounter Care Teams Detail Supervisor Relationship Specialty Start Date End Date Rad Galvan MD [address] [place] [address] PCP - General 04/08/25 Uli Salcedo PA [address] [place] [address] Referring Physician 02/03/25 documented as of this encounter
--- OUTSIDE RECORDS SUMMARY | 2025-09-08 08:27 | XMS_ITS | Encounter Summary ---
Author Organization [facility] Address [address] [id number] Care Team Providers Care Clinical Reimbursement Specialist Name Role Phone Uli Salcedo Unavailable [phone] Rad Galvan MD Primary Care Provider [phone] Reason for Visit * Reason Onset Date Comments Med Refill 08/04/2025 Encounter Details Date Type Department Care Team (Late st Contact Info) Description 08/04/2025 Refill [facility] [place] [address] [facility] [place] [address] Yaritza Johnson, RN [facility] [address] [place] [address] Social History Tobacco Use Types Packs/Day Years [...] PM EDT Appointment Cardiac Imaging [address] [place] [address] 09/16/2025 4:00 PM EDT Office Visit [facility] [place] [facility] [address] [facility] [place] [address] Elvin Schuler MD [address] [place] [address] 10/17/2025 11:40 AM EST Office Visit [facility] Nephrology, Bone & Mineral Metabolism [address] [facility] [place] [place] [address] Azael Mooney MD [address] [place] [address] documented as of this encounter [...] documented as of this encounter Care Teams Clinical Reimbursement Specialist Relationship Specialty Start Date End Date Rad Galvan MD [address] [place] [address] PCP - General 04/08/25 Uli Salcedo PA [address] [place] [address] Referring Physician 02/03/25 documented as of this encounter
--- OUTSIDE RECORDS SUMMARY | 2025-09-08 08:27 | XMS_ITS | Encounter Summary ---
Author Organization [facility] Address [address] [place] [address] Care Team Providers Care Rheostat Assembler Name Role Phone Uli Salcedo Unavailable [phone] Rad Galvan MD Primary Care Provider [phone] Reason for Visit * Reason Onset Date Comments HCN - Patient Message 08/09/2025 Encounter Details Date Type Department Care Team (Late st Contact Info) Description 08/09/2025 Telephone [facility] [place] [facility] [address] [facility] [place] [address] Elvin Schuler MD [address] [place] [address] HCN - Patient Message Social [...] Jerry reported she was currently admitted to [facility]. She is aware to contact me once d/c and will request d/c summary. * Telephone Encounter - Mary Ann Pugh - 08/09/2025 8:47 AM EDT Clinical Concern/Question Reason for Call: pt would like to speak to yaritza. She is currently in admitted to the hospital and would like to speak to her about her admission. Best contact number: [phone] (mobile) Optimal time of day to reach caller: ANYTIME Additional comments/information from caller: None Note: Please do not reply to this message. Follow-up communication and further actions as a result of this message need to be communicated with the patient directly, if the patient is not active onMyChart. If the patient is active on MyChart, they will receive notification of the communication/outcome via [employer]. documented in this encounter Plan of Treatment Upcoming Encounters Date Type Department Care Team (Late st Contact Info) Description 09/16/2025 2:30 PM EDT Appointment Cardiac Imaging [address] [place] [address] 09/16/2025 4:00 PM EDT Office Visit [facility] [place] [facility] [address] [place] [address] Elvin Schuler MD [address] [place] [address] 10/17/2025 11:40 AM EST Office Visit [facility] Nephrology, Bone & Mineral Metabolism [address] [facility], [address] [place] [address] Azael Mooney MD [address] [place] [address] documented as of this encounter [...] documented as of this encounter Care Teams Rheostat Assembler Relationship Specialty Start Date End Date Rad Galvan MD [address] [place] [address] PCP - General 04/08/25 Uli Salcedo PA [address] [place] [address] Referring Physician 02/03/25 documented as of this encounter
--- OUTSIDE RECORDS SUMMARY | 2025-09-08 08:27 | XMS_ITS | Encounter Summary ---
Author Organization [facility] Address [address] [place] [address] Care Team Providers Care [place] Program Coordinator Name Role Phone Uli Salcedo Unavailable [phone] Rad Galvan MD Primary Care Provider [phone] Reason for Referral * Imaging (Routine) - Pending Review Specialty Diagnoses / Procedures Referred By Contac t Referred To Contact Cardiology Diagnoses Chronic combined systolic and diastolic congestive heart failure Procedures Echo, Adult Transthoracic Complete Elvin Schuler MD [address] [place] [address] Phone: tel: fax: Referral ID Status Reason Start Date Expiration Date Visits Requested Visits Authorized [id number] Pending Review Perform Procedure 07/27/2025 01/26/2027 1 1 Encounter Details Date Type Department Care Team (Late st Contact Info) Description 07/27/2025 Telephone [facility] [place] [facility] [address] [facility] [place] [address] Yaritza Johnson, RN [facility] [address] [place] [address] Social History Tobacco Use Types Packs/Day Years [...] PM EDT Appointment Cardiac Imaging [address] [place] [address] 09/16/2025 4:00 PM EDT Office Visit [facility] [place] [facility] [address] [facility] [place] [address] Elvin Schuler MD [address] [place] [address] 10/17/2025 11:40 AM EST Office Visit [facility] Nephrology, Bone & Mineral Metabolism [address] [facility], [address] [place] [address] Azael Mooney MD [address] [place] [address] Scheduled Orders Name Type Priority [...] documented as of this encounter Care Teams [place] Program Coordinator Relationship Specialty Start Date End Date Rad Galvan MD [address] [place] [address] PCP - General 04/08/25 Uli Salcedo PA [address] [place] [address] Referring Physician 02/03/25 documented as of this encounter
--- OUTSIDE RECORDS SUMMARY | 2025-09-08 08:28 | XMS_ITS | Encounter Summary ---
Author Organization [facility] Address [address] [place] [address] Care Team Providers Care De Icer Element Winder Name Role Phone Rad Galvan MD Primary Care Provider + Reason for Visit * Reason Onset Date Comments CALLBACK REQUEST 07/15/2025 Encounter Details Date Type Department Care Team (Late st Contact Info) Description 07/15/2025 Telephone [facility] [address] [place] [address] Rad Galvan MD [address] [place] [address] CALLBACK REQUEST Social History Tobacco [...] Clinic Pharmacy. Also spoke w/ Yefri at [facility], he said, disregard this phone call they have all the information they need at this time. * Telephone Encounter - Rose Marie Chamberlain MA - 07/15/2025 3:47 PM EDT Pt is also requesting an order for an automated BP cuff be sent in to [facility]. She talked to [facility] today and they told her, that is all you had to do and they would pay for it. * Telephone Encounter - Yarely Painter RegSched Rep - 07/15/2025 2:14 PM EDT Caller: CANDELARIA - Supersonic Relationship: Best call back number: [phone] What is the best time to reach [...] Visit [facility] [address] [place] [address] Rad Galvan MD [address] [place] [place] [address] documented as of this encounter Visit Diagnoses Not on filedocumented in this encounter Additional Health Concerns Assessment Noted Time PHQ-2 Depression Total Score: 1 02/17/20 24 10:24 AM EDT documented as of this encounter Care Teams De Icer Element Winder Relationship Specialty Start Date End Date Rad Galvan MD [address] [place] [address] PCP - General Family Medicine 04/15/22 documented as of this encounter
--- OUTSIDE RECORDS SUMMARY | 2025-09-08 08:28 | XMS_ITS | Encounter Summary ---
Author Organization [facility] Address [address] [place] [address] Care Team Providers Care Marina Dry Dock Manager Name Role Phone Rad Galvan MD Primary Care Provider + Reason for Visit * Reason Onset Date Comments PHARMACY CALLS 07/18/2025 Encounter Details Date Type Department Care Team (Late st Contact Info) Description 07/18/2025 Telephone [facility] [address] [place] [address] Rad Galvan MD [address] [place] [address] PHARMACY CALLS Social History Tobacco [...] - 07/18/2025 2:16 PM EDT Pharmacy Name: [facility] [address] [place] - [address] [place] [address] - [phone] - [phone] Pharmacy kiosk sales representative name: [facility] Pharmacy kiosk sales representative phone number: [phone] What medication are you calling in regards [...] Description 10/31/2025 11:00 AM EST Office Visit [facility] [address] [place] [address] Rad Galvan MD [address] [place] [address] documented as of this encounter Visit Diagnoses Not on filedocumented in this encounter Additional Health Concerns Assessment Noted Time PHQ-2 Depression Total Score: 1 02/17/20 24 10:24 AM EDT documented as of this encounter Care Teams Marina Dry Dock Manager Relationship Specialty Start Date End Date Rad Galvan MD [address] [place] [address] PCP - General Family Medicine 04/15/22 documented as of this encounter
--- OUTSIDE RECORDS SUMMARY | 2025-09-08 08:28 | XMS_ITS | Encounter Summary ---
Author Organization [facility] Address [address] [place] [address] Care Team Providers Care Silver Holloware Assembler Name Role Phone Uli Salcedo Unavailable [phone] Rad Galvan MD Primary Care Provider [phone] Encounter Details Date Type Department Care Team [...] PM EDT Appointment Cardiac Imaging [address] [place] [address] 09/16/2025 4:00 PM EDT Office Visit [facility] [place] [facility] [address] [place] [address] Elvin Schuler MD [address] [place] [address] 10/17/2025 11:40 AM EST Office Visit [facility] [place] Nephrology, Bone & Mineral Metabolism [address] [facility], [address] [place] [address] Azael Mooney MD [address] [place] [address] documented as of this encounter [...] documented as of this encounter Care Teams Silver Holloware Assembler Relationship Specialty Start Date End Date Rad Galvan MD [address] [place] [address] PCP - General 04/08/25 Uli Salcedo PA [address] [place] [address] Referring Physician 02/03/25 documented as of this encounter
--- OUTSIDE RECORDS SUMMARY | 2025-09-08 08:28 | XMS_ITS | Encounter Summary ---
Author Organization [facility] Address [address] [place] [address] Care Team Providers Care Account Administrator Name Role Phone Andrew Lee MD Primary Care Provider [phone] Uli Salcedo Unavailable [phone] Rad Galvan MD Primary Care Provider [phone] Encounter Details Date Type Department Care Team (Late st Contact Info) Description 01/11/2025 Orders Only External Location [address] [place] [address] Uli Salcedo PA [address] [place], [place] [address] Social History Tobacco Use Types Packs/Day Years [...] PM EDT Appointment Cardiac Imaging [address] [place] [address] 09/16/2025 4:00 PM EDT Office Visit [facility] [place] [facility] [address] [facility] [place] [address] Elvin Schuler MD [address] [place] [address] 10/17/2025 11:40 AM EST Office Visit [facility] Nephrology, Bone & Mineral Metabolism [address] [facility], [address] [place] [address] Azael Mooney MD [address] [place] [address] documented as of this encounter [...] on filedocumented in this encounter Care Teams Account Administrator Relationship Specialty Start Date End Date nAdrew Lee MD [address] [place] [address] [address] [place] [address] PCP - General 04/06/21 04/07/25 Rad Galvan MD [address] [place] [address] PCP - General 04/08/25 Uli Salcedo PA [address] [place] [address] Referring Physician 02/03/25 documented as of this encounter
--- OUTSIDE RECORDS SUMMARY | 2025-09-08 08:28 | XMS_ITS | Encounter Summary ---
Author Organization [facility] Address [address] [place] [address] Care Team Providers Care Emergency Medical Dispatcher Name Role Phone Rad Galvan MD Primary Care Provider + Encounter Details Date Type Department Care Team (Late st Contact Info) Description 07/18/2025 Telephone [facility] [address] [place] [address] Rad Galvan MD [address] [place] [address] Social History Tobacco Use Types [...] AM EST Office Visit [facility] [address] [place] [address] Rad Galvan MD [address] [place] [address] documented as of this encounter Visit Diagnoses Not on filedocumented in this encounter Additional Health Concerns Assessment Noted Time PHQ-2 Depression Total Score: 1 02/17/20 24 10:24 AM EDT documented as of this encounter Care Teams Emergency Medical Dispatcher Relationship Specialty Start Date End Date Rad Galvan MD [address] [place] [address] PCP - General Family Medicine 04/15/22 documented as of this encounter
--- OUTSIDE RECORDS SUMMARY | 2025-09-08 08:28 | XMS_ITS | Encounter Summary ---
Author Organization [facility] Address [address] [place] [address] Care Team Providers Care Work Car Operator Name Role Phone Rad Galvan MD [...] Description 10/31/2025 11:00 AM EST Office Visit [facility] [address] [facility] [place] [address] Rad Galvan MD [address] [place] [address] documented as of this encounter Visit Diagnoses Not on filedocumented in this encounter Additional Health Concerns Assessment Noted Time PHQ-2 Depression Total Score: 1 02/17/20 24 10:24 AM EDT documented as of this encounter Care Teams Work Car Operator Relationship Specialty Start Date End Date Rad Galvan MD [address] [place] [address] PCP - General Family Medicine 04/15/22 documented as of this encounter
--- OUTSIDE RECORDS SUMMARY | 2025-09-08 08:28 | XMS_ITS | Encounter Summary ---
Author Organization [facility] Address [address] [place] [address] Care Team Providers Care Eeg Technician Name Role Phone Rad Gavlan MD Primary Care Provider + Reason for Visit * Reason Onset Date Comments New Med Request 07/15/2025 Encounter Details Date Type Department Care Team (Late st Contact Info) Description 07/15/2025 Telephone [facility] [address] [place] [address] Rad Galvan MD [address] [place] [address] New Med Request Social History [...] Edwards Relationship: Self Best call back number: [phone] What medication are you requesting: ANXIETY MEDICATION 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 How long have you been experiencing symptoms: INFORMED LAST WEEK Have you had these symptoms before: [] Yes [x] No Have you been treated for these symptoms before: [] Yes [x] No If a prescription is needed, what is your preferred pharmacy and phone number: [facility] [address] - [phone] - [phone] FX Additional notes: PATIENT WOULD LIKE A CALL BACK FROM PCP documented in this encounter Plan of Treatment Upcoming Encounters Date Type Department Care Team (Late st Contact Info) Description 10/31/2025 11:00 AM EST Office Visit [facility] [address] [place] [address] Rad Galvan MD [address] [place] [address] documented as of this encounter Visit Diagnoses Not on filedocumented in this encounter Additional Health Concerns Assessment Noted Time PHQ-2 Depression Total Score: 1 02/17/20 24 10:24 AM EDT documented as of this encounter Care Teams Eeg Technician Relationship Specialty Start Date End Date Rad Galvan MD [address] [place] [address] PCP - General Family Medicine 04/15/22 documented as of this encounter
[2025-09-08 08:35] LABS: Hematocrit 34.8 % (37.0-47.0); Hemoglobin 11.7 g/dL (12.2-16.2); Immature Granulocytes % 0.4 %; Mean Corpuscular HGB Conc 33.6 g/dL (31.8-35.4); Mean Corpuscular Hemoglobin 34.5 pg (27.0-31.2); Mean Corpuscular Volume 102.7 fl (81-99); Nucleated Red Blood Cells % 0 %; Platelet Count 176 K/mm3 (142-424); Red Blood Count 3.39 M/mm3 (4.20-5.40); Red Cell Distribution Width-SD 55.8 fL; White Blood Count 12.3 K/mm3 (4.8-10.8)
[2025-09-08 08:44] LABS: Albumin Level 4.5 g/dl (3.5-5.0); Chloride 90 mmol/L (98-107)
[2025-09-08 08:45] LABS: Potassium 4.4 mmoL/L (3.5-5.1); Sodium 130 mmol/L (136-145)
[2025-09-08 08:47] LABS: Alanine Aminotransferase 28 U/L (12-78); Alkaline Phosphatase 247 U/L (38-126); Aspartate Amino Transferase 60 U/L (14-36); Bilirubin,Total 1.7 mg/dl (0.2-1.3); Blood Urea Nitrogen 52 mg/dl (7-17); Creatinine Clearance Estimated 38 mL/min (50-200); Creatinine,Serum 1.90 mg/dl (0.52-1.04); Estimated Glomerular Filt Rate 26 ml/min (>60); GFR (African American) 32 ML/MIN (>60)
[2025-09-08 08:48] LABS: Albumin/Globulin Ratio 1.1 (1.1-1.8); Anion Gap 14.4 mEq/L (5-15); Calcium 9.1 mg/dl (8.4-10.2); Carbon Dioxide 30 mmol/L (22.0-30.0); Globulin 4.1 g/dL (1.3-3.2); Glucose 157 mg/dl (74-100); Magnesium 2.0 mg/dl (1.6-2.3); Total Protein,Serum 8.6 g/dl (6.3-8.2)
[2025-09-08 08:58] LABS: NT Pro Brain Natriuretic Pep. 978 pg/mL (0-125)
[2025-09-08 09:07] LABS: Troponin I < 0.01 ng/ml (0.00-0.034)
[2025-09-08 09:19] LABS: Thyroid Stimulating Hormone 1.32 uIU/mL (0.465-4.68)
--- NOTE | 2025-09-08 10:50 | PC.NURSE ---
called RAD for update on reads.
--- OUTSIDE RECORDS SUMMARY | 2025-10-15 20:00 | XMS_ITS | Clinical Summary ---
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 [...] HISTORY OF FALLING Active 08-18 00:00: 00 HEAD OF MAINTENANCE (CURRENT) USE OF INSULIN Active 11-24 00:00: 00 ALF (CURRENT) USE OF ANTICOAGULAN TS Active 11-24 [...] 01-20 00:00: 00 02-02 17:09 :37 No [id number] DM 100 unit DAILY 100 unit DAILY (route: subcutaneo ) Med Classific ation: Endocrine bumetanide 1 mg tablet 01-12 00:00: 00 02-02 17:09 :37 No [id number] CHF 2 mg DAILY 2 mg DAILY (route: oral) Med Classific ation: Cardiovas cular Therapy Agents metolazone 2.5 mg tablet 01-12 00:00: 00 02-02 17:09 :37 No [id number] CHF 5 mg EVERY 48 HOURS 5 mg EVERY 48 HOURS (route: oral) Med Classific ation: Cardiovas cular Therapy Agents spironolact one 25 mg tablet 2 00:00: 00 02-02 17:09 :37 No [id number] CHF 25 mg 2 TIMES DAILY 25 mg 2 TIMES DAILY (route: oral) Med Classific ation: Cardiovas cular Therapy Agents tramadol 50 mg tablet 2-19 00:00: 00 02-02 17:09 :37 No [id number] PAIN 50 mg EVERY 6 HOURS NEEDED 50 mg EVERY 6 HOURS NEEDED (route: oral) Med Classific ation: Analgesic , Anti-infl ammatory or Antipyret ic allopurinol 100 mg tablet 2- 00:00: 00 02-02 17:09 :37 No [id number] GOUT 1 tablet EVERY DAY 1 tablet EVERY DAY (route: oral) Med Classific ation: Gout and Hyperuric emia Therapy gabapentin 800 mg tablet 12-29 00:00: 00 02-02 17:09 :37 No [id number] NEUROPATHY 600 mg THREE TIMES DAILY 600 mg THREE TIMES DAILY (route: oral) Med Classific ation: Central Nervous System Agents atorvastati n 10 mg tablet 12-27 00:00: 00 02-02 17:09 :37 No [id number] CAD 40 mg EVERY DAY 40 mg EVERY DAY (route: oral) Med Classific ation: Cardiovas cular Therapy Agents digoxin 125 mcg (0.125 mg) tablet 12-27 00:00: 00 02-02 17:09 :37 No [id number] SEIZURES 1 tablet EVERY DAY 1 tablet EVERY DAY (route: oral) Med Classific ation: Cardiovas cular Therapy Agents Farxiga 10 mg tablet 2- 00:00: 00 02-02 17:09 :37 No [id number] DM 10 mg EVERY DAY 10 mg EVERY DAY (route: oral) Med Classific ation: Endocrine loratadine 10 mg tablet - 00:00: 00 02-02 17:09 :37 No [id number] ALLERGY 10 mg EVERY DAY 10 mg EVERY DAY (route: oral) Med Classific ation: Respirato ry Therapy Agents Ozempic 0.25 mg or 0.5 mg (2 mg/3 mL) subcutaneou s pen injector 2- 00:00: 00 02-02 17:09 :37 No [id number] DM 0.5 mg 05 MG SUBCUTANEO USLY ONCE a WEEK DIRECTED 0.5 mg 05 MG SUBCUTANEO USLY ONCE a WEEK DIRECTED (route: subcutaneo us) Med Classific ation: Endocrine pantoprazol e 40 mg tablet,audrey yed release 12-27 00:00: 00 02-02 17:09 :37 No [id number] GERD 40 mg TWICE DAILY 40 mg TWICE DAILY (route: oral) Med Classific ation: Gastroint estinal Therapy Agents phenobarbit al 32.4 mg tablet 12-27 00:00: 00 02-02 17:09 :37 No [id number] SEIZURES 48.6 mg EVERY NIGHT AT BEDTIME 48.6 mg EVERY NIGHT AT BEDTIME (route: oral) Med Classific ation: Central Nervous System Agents valsartan 40 mg tablet 12-27 00:00: 00 02-02 17:09 :37 No [id number] CHF 40 mg DAILY 40 mg DAILY (route: oral) Med Classific ation: Cardiovas cular Therapy Agents duloxetine 30 mg capsule,del ayed release 08-19 00:00: 00 Yes [id number] DEPRESSION 30 mg DAILY 30 mg DAILY (route: oral) Med Classific ation: Central Nervous System Agents Humulin 70/30 U-100 Insulin 100 unit/mL subcutaneou s suspension 08-19 00:00: 00 Yes [id number] DM 60 unit BEDTIME 60 unit BEDTIME (route: subcutaneo us) Med Classific ation: Endocrine levofloxaci n 750 mg tablet 08-19 00:00: 00 Yes [id number] UTI 1 tablet EVERY 48 HOURS 1 tablet EVERY 48 HOURS (route: oral) Med Classific ation: Anti-Infe ctive Agents potassium chloride 20 mEq oral packet 08-19 00:00: 00 Yes [id number] SUPP 20 mEq DAILY 20 mEq DAILY (route: oral) Med Classific ation: Electroly te Balance-N utritiona l Products prednisolon e 1 %-moxifloxa yair 0.5 %-ketorolac 0.5 % eye drops 08-19 00:00: 00 Yes [id number] EYES 1 drops DAILY 1 drops DAILY (route: ophthalmic (eye)) Med Classific ation: Ophthalmi c Agents Xarelto 15 mg tablet 08-19 00:00: 00 Yes [id number] AFIB 15 mg DAILY 15 mg DAILY (route: oral) Med Classific ation: Hematolog ical Agents Vital Signs Vital Name Observation Time Observation Value Commen ts Temperature 2025-09-02 14:53:00.000 98.4 [degF] Temperature 2025-08-22 08:56:00.000 97.5 [degF] Temperature 2025-08-19 13:44:00.000 98 [degF] BMI (%) 2025-08-22 08:40:49.000 42 kg/m2 Height 2025-08-22 08:40:39.000 61 [in_us] Pulse 2025-09-02 14:53:00.000 73 /min Pulse 2025-08-22 08:56:00.000 62 /min Pulse 2025-08-19 13:44:00.000 72 /min O2 Saturation (%) 2025-09-02 14:55:00.000 96 % O2 Saturation (%) 2025-08-19 13:44:00.000 94 % Pain 2025-09-02 14:53:00.000 0 Pain 2025-08-22 08:56:00.000 0 Pain 2025-08-19 13:44:00.000 0 Respirations 2025-09-02 14:53:00.000 18 /min Respirations 2025-08-22 08:56:00.000 18 /min Respirations 2025-08-19 13:44:00.000 18 /min Weight (lbs) 2025-08-22 08:40:49.000 225 [lb_av] Weight (kgs) 2025-09-02 14:55:00.000 200 Systolic Blood Pressure 2025-09-02 14:53:00.000 102 mm [Hg] Systolic Blood Pressure 2025-08-22 08:56:00.000 92 mm[ Hg] Systolic Blood Pressure 2025-08-19 13:44:00.000 108 mm [Hg] Diastolic Blood Pressure 2025-09-02 14:53:00.000 50 mm [Hg] Diastolic Blood Pressure 2025-08-22 08:56:00.000 54 mm [Hg] Diastolic Blood Pressure 2025-08-19 13:44:00.000 62 mm [Hg] Plan of Treatment Planned Activity Planned Date Details Comments Future Scheduled Test RN TO OBSE RVE, ASSESS, EVALUATE, AND DEVELOP AN INDIVIDUALIZED PLAN OF CARE. AGENCY MAY ACCEPT ORDERS FROM CONSULTING PHYSICIANS ALSO DR HERNANDEZ AT [facility] TO OBSERVE AND ASSESS, ROLLOUT MANAGER/VP [employer]ODUCT MARKETING TO OBSERVE FOR RISK FOR FALLS AND INSTRUCT IN FALL PREVENTION, HOME SAFETY, MEDICATION MANAGEMENT, INFECTION PREVENTION, AND NUTRITION MANAGEMENT. RN/ROLLOUT MANAGER/VP PRODUCT MARKETING NURSE MAY PERFORM O2 SATURATION LEVEL ON ADMISSION AND PRN FOR RN TO ASSESS/ROLLOUT MANAGER TO OBSERVE PATIENT, WITH NOTIFICATION TO THE PHYSICIAN IF SATURATION IS 90% IN THE ABSENCE OF MORE SPECIFIC PARAMETERS FROM THE PHYSICIAN. AGENCY MAY PERFORM A RESUMPTION OF CARE VISIT FOLLOWING ANY HOSPITAL ADMISSION. RN/ROLLOUT MANAGER/VP PRODUCT MARKETING TO MONITOR CO-MORBID CONDITIONS LISTED ON THE PLAN OF CARE AND ANY NEW CONDITIONS THAT PRESENT THEMSELVES DURING THIS EPISODE TO IDENTIFY CHANGES AND INTERVENE TO MINIMIZE COMPLICATIONS. [code = RN TO OBSERVE, ASSESS, EVALUATE, AND DEVELOP AN INDIVIDUALIZED PLAN OF CARE. AGENCY MAY ACCEPT ORDERS FROM CONSULTING PHYSICIANS ALSO DR HERNANDEZ AT [facility] TO OBSERVE AND ASSESS, ROLLOUT MANAGER/VP PRODUCT MARKETING TO OBSERVE FOR RISK FOR FALLS AND INSTRUCT IN FALL PREVENTION, HOME SAFETY, MEDICATION MANAGEMENT, INFECTION PREVENTION, AND NUTRITION MANAGEMENT. RN/ROLLOUT MANAGER/VP PRODUCT MARKETING NURSE MAY PERFORM O2 SATURATION LEVEL ON ADMISSION AND PRN FOR RN TO ASSESS/ROLLOUT MANAGER TO OBSERVE PATIENT, WITH NOTIFICATION TO THE PHYSICIAN IF SATURATION IS 90% IN THE ABSENCE OF MORE SPECIFIC PARAMETERS FROM THE PHYSICIAN. AGENCY MAY PERFORM A RESUMPTION OF CARE VISIT FOLLOWING ANY HOSPITAL ADMISSION. RN/ROLLOUT MANAGER/VP PRODUCT MARKETING TO MONITOR CO-MORBID CONDITIONS LISTED ON THE PLAN OF CARE AND ANY NEW CONDITIONS THAT PRESENT THEMSELVES DURING THIS EPISODE TO IDENTIFY CHANGES AND INTERVENE TO MINIMIZE COMPLICATIONS.] Future Scheduled Test RISK FOR H OSPITALIZATION; RN TO ASSESS/TEACH, VP [employer]ODUCT MARKETING/ROLLOUT MANAGER TO OBSERVE/TEACH PATIENT/CAREGIVER ON RISK FOR HOSPITALIZATION/EMERGENCY ROOM VISITS, TEACH SIGNS AND SYMPTOMS THAT PUT PATIENT AT RISK, WHEN TO NOTIFY NURSE/PHYSICIAN OF COMPLICATIONS/DECLINE, AND WHEN TO CALL 911. [code = RISK FOR HOSPITALIZATION; RN TO ASSESS/TEACH, VP PRODUCT MARKETING/ROLLOUT MANAGER TO OBSERVE/TEACH PATIENT/CAREGIVER ON RISK FOR HOSPITALIZATION/EMERGENCY ROOM VISITS, TEACH SIGNS AND SYMPTOMS THAT PUT PATIENT AT RISK, WHEN TO NOTIFY NURSE/PHYSICIAN OF COMPLICATIONS/DECLINE, AND WHEN TO CALL 911.] Future Scheduled Test CARDIOVASC ULAR SYSTEM; RN TO ASSESS/TEACH, ROLLOUT MANAGER/VP PRODUCT MARKETING TO OBSERVE/TEACH RELATED TO ALTERED CARDIOVASCULAR STATUS TO MINIMIZE COMPLICATIONS AND REDUCE HOSPITALIZATION. [code = CARDIOVASCULAR SYSTEM; RN TO ASSESS/TEACH, ROLLOUT MANAGER/VP PRODUCT MARKETING TO OBSERVE/TEACH RELATED TO ALTERED CARDIOVASCULAR STATUS TO MINIMIZE COMPLICATIONS AND REDUCE HOSPITALIZATION.] Future Scheduled Test HEART FAIL URE; RN TO ASSESS/TEACH, ROLLOUT MANAGER/VP [employer]ODUCT MARKETING TO OBSERVE/TEACH CARDIOPULMONARY SYSTEM TO IDENTIFY SIGNS [...] [code = HEART FAILURE; RN TO ASSESS/TEACH, ROLLOUT MANAGER/VP PRODUCT MARKETING TO OBSERVE/TEACH CARDIOPULMONARY SYSTEM TO IDENTIFY SIGNS [...] N MANAGEMENT; RN TO ASSESS AND TEACH/ ROLLOUT MANAGER /VP [employer]ODUCT MARKETING TO OBSERVE AND TEACH WARNING SIGNS AND SYMPTOMS TO AVOID HOSPITALIZATION. [code = HYPOTENSION MANAGEMENT; RN TO ASSESS AND TEACH/ ROLLOUT MANAGER /VP PRODUCT MARKETING TO OBSERVE AND TEACH WARNING SIGNS AND SYMPTOMS TO AVOID HOSPITALIZATION.] Future Scheduled Test ARRHYTHMIA MANAGEMENT; RN TO ASSESS AND TEACH, ROLLOUT MANAGER/VP PRODUCT MARKETING TO OBSERVE AND TEACH WARNING SIGNS AND SYMPTOMS TO AVOID HOSPITALIZATION. [code = ARRHYTHMIA MANAGEMENT; RN TO ASSESS AND TEACH, ROLLOUT MANAGER/VP PRODUCT MARKETING TO OBSERVE AND TEACH WARNING SIGNS AND SYMPTOMS TO AVOID HOSPITALIZATION.] Future Scheduled Test NEUROLOGIC AL SYSTEM MANAGEMENT; RN TO ASSESS AND TEACH, VP PRODUCT MARKETING/ROLLOUT MANAGER TO OBSERVE AND TEACH RELATED TO ALTERED NEUROLOGICAL STATUS TO MINIMIZE COMPLICATIONS AND REDUCE HOSPITALIZATION. [code = NEUROLOGICAL SYSTEM MANAGEMENT; RN TO ASSESS AND TEACH, VP PRODUCT MARKETING/ROLLOUT MANAGER TO OBSERVE AND TEACH RELATED TO ALTERED NEUROLOGICAL STATUS TO MINIMIZE COMPLICATIONS AND REDUCE HOSPITALIZATION.] Future Scheduled Test SEIZURE DI SORDER MANAGEMENT; RN/VP PRODUCT MARKETING/ROLLOUT MANAGER TO PROVIDE INSTRUCTION REGARDING MANAGEMENT OF SEIZURE DISORDER AND SEIZURE PRECAUTIONS. [code = SEIZURE DISORDER MANAGEMENT; RN/VP PRODUCT MARKETING/ROLLOUT MANAGER TO PROVIDE INSTRUCTION REGARDING MANAGEMENT OF SEIZURE DISORDER AND SEIZURE PRECAUTIONS.] Future Scheduled Test DIABETES M ANAGEMENT; RN TO ASSESS AND TEACH, VP PRODUCT MARKETING/ROLLOUT MANAGER TO OBSERVE AND TEACH INSTRUCTIONS OF DIABETIC CARE TO INCLUDE: DIET CARDIAC DIABETIC SKIN CARE, SIGNS AND SYMPTOMS OF HYPO/HYPERGLYCEMIA, PROPER ADMINISTRATION OF DIABETIC MEDICATION. RN/VP PRODUCT MARKETING/ROLLOUT MANAGER TO INSTRUCT ON DIABETIC FOOT CARE AND MONITOR FOR SKIN LESIONS ON LOWER EXTREMITIES. BLOOD GLUCOSE TESTING FREQ. RN TO ASSESS AND TEACH, VP PRODUCT MARKETING/ROLLOUT MANAGER TO OBSERVE AND TEACH PATIENT/CAREGIVER ABILITY TO PERFORM AND RECORD BLOOD GLUCOSE TESTING ORDERED AND TO REPORT ABNORMAL FINDINGS TO PHYSICIAN. RN/VP PRODUCT MARKETING/ROLLOUT MANAGER MAY PERFORM BLOOD GLUCOSE TEST NEEDED. RN/VP PRODUCT MARKETING/ROLLOUT MANAGER TO REPORT TO PHYSICIAN BLOOD GLUCOSE READINGS GREATER THAN 250 OR LESS THAN 80 RN/VP PRODUCT MARKETING/ROLLOUT MANAGER TO INSTRUCT PATIENT ON IMPORTANCE OF HGBA1C MONITORING, KIDNEY FUNCTION TEST, EYE AND FOOT EXAMS. [code = DIABETES MANAGEMENT; RN TO ASSESS AND TEACH, VP PRODUCT MARKETING/ROLLOUT MANAGER TO OBSERVE AND TEACH INSTRUCTIONS OF DIABETIC CARE TO INCLUDE: DIET CARDIAC DIABETIC SKIN CARE, SIGNS AND SYMPTOMS OF HYPO/HYPERGLYCEMIA, PROPER ADMINISTRATION OF DIABETIC MEDICATION. RN/VP PRODUCT MARKETING/ROLLOUT MANAGER TO INSTRUCT ON DIABETIC FOOT CARE AND MONITOR FOR SKIN LESIONS ON LOWER EXTREMITIES. BLOOD GLUCOSE TESTING FREQ. RN TO ASSESS AND TEACH, VP PRODUCT MARKETING/ROLLOUT MANAGER TO OBSERVE AND TEACH PATIENT/CAREGIVER ABILITY TO PERFORM AND RECORD BLOOD GLUCOSE TESTING ORDERED AND TO REPORT ABNORMAL FINDINGS TO PHYSICIAN. RN/VP PRODUCT MARKETING/ROLLOUT MANAGER MAY PERFORM BLOOD GLUCOSE TEST NEEDED. RN/VP PRODUCT MARKETING/ROLLOUT MANAGER TO REPORT TO PHYSICIAN BLOOD GLUCOSE READINGS GREATER THAN 250 OR LESS THAN 80 RN/VP PRODUCT MARKETING/ROLLOUT MANAGER TO INSTRUCT PATIENT ON IMPORTANCE OF HGBA1C MONITORING, KIDNEY FUNCTION TEST, EYE AND FOOT EXAMS.] Future Scheduled Test GENITOURIN FELIX MANAGEMENT; RN TO ASSESS AND TEACH, ROLLOUT MANAGER/VP PRODUCT MARKETING TO OBSERVE AND TEACH RELATED TO ALTERED GENITOURINARY STATUS TO MINIMIZE COMPLICATIONS AND REDUCE HOSPITALIZATION. [code = GENITOURINARY MANAGEMENT; RN TO ASSESS AND TEACH, ROLLOUT MANAGER/VP PRODUCT MARKETING TO OBSERVE AND TEACH RELATED TO ALTERED GENITOURINARY STATUS TO MINIMIZE COMPLICATIONS AND REDUCE HOSPITALIZATION.] Future Scheduled Test GASTROINTE STINAL MANAGEMENT; RN TO ASSESS AND TEACH, VP PRODUCT MARKETING/ROLLOUT MANAGER TO OBSERVE AND TEACH RELATED TO ALTERED GASTROINTESTINAL STATUS TO MINIMIZE COMPLICATIONS AND REDUCE HOSPITALIZATION. [code = GASTROINTESTINAL MANAGEMENT; RN TO ASSESS AND TEACH, VP PRODUCT MARKETING/ROLLOUT MANAGER TO OBSERVE AND TEACH RELATED TO ALTERED GASTROINTESTINAL STATUS TO MINIMIZE COMPLICATIONS AND REDUCE HOSPITALIZATION.] Future Scheduled Test RN TO ASSE SS AND TEACH, VP PRODUCT MARKETING/ROLLOUT MANAGER TO OBSERVE AND TEACH AND PROVIDE EDUCATION ON GI BLEEDING. [code = RN TO ASSESS AND TEACH, VP PRODUCT MARKETING/ROLLOUT MANAGER TO OBSERVE AND TEACH AND PROVIDE EDUCATION ON GI BLEEDING.] Future Scheduled Test FALL REDUC TION MANAGEMENT; RN TO ASSESS AND OBSERVE, ROLLOUT MANAGER/VP PRODUCT MARKETING TO OBSERVE FALL RISK FACTORS AND EDUCATE PATIENT/CAREGIVER ON STRATEGIES TO MINIMIZE THE RISK OF FALLING. [code = FALL REDUCTION MANAGEMENT; RN TO ASSESS AND OBSERVE, ROLLOUT MANAGER/VP PRODUCT MARKETING TO OBSERVE FALL RISK FACTORS AND EDUCATE PATIENT/CAREGIVER ON STRATEGIES TO MINIMIZE THE RISK OF FALLING.] Future Scheduled Test ANEMIA MAN AGEMENT; RN TO ASSESS AND TEACH, VP PRODUCT MARKETING/ROLLOUT MANAGER TO OBSERVE AND TEACH AND PROVIDE EDUCATION ON ANEMIA. [code = ANEMIA MANAGEMENT; RN TO ASSESS AND TEACH, VP PRODUCT MARKETING/ROLLOUT MANAGER TO OBSERVE AND TEACH AND PROVIDE EDUCATION ON ANEMIA.] Future Scheduled Test PNEUMONIA MANAGEMENT; RN TO ASSESS AND TEACH, ROLLOUT MANAGER/VP PRODUCT MARKETING TO OBSERVE AND TEACH SIGNS OF PNEUMONIA EXACERBATION AND PROVIDE EARLY INTERVENTIONS TO MINIMIZE RISK OF HOSPITALIZATION. [code = PNEUMONIA MANAGEMENT; RN TO ASSESS AND TEACH, ROLLOUT MANAGER/VP PRODUCT MARKETING TO OBSERVE AND TEACH SIGNS OF PNEUMONIA [...] End Date/Time Encounter Type Admission Type Attending [facility] Facility Care Department Encounter ID Discharge Date Discharge Status Discharge Condition Discharge Reason Percent Goals Met 2025-08-18 00:00:00 2025-10-16 00:00:00 Outpatient [facility] [id number] [id number]
== END 2025-09-08 11:17 | disposition home or self-care (01) ==
PROVIDERS: Emergency Provider Student in an Organized Health Care Education/Training Program; PCP Family Medicine
DX: S09.90XA Unspecified injury of head, initial encounter (principal); R55 Syncope and collapse; E87.1 Hypo-osmolality and hyponatremia; I95.9 Hypotension, unspecified; I11.0 Hypertensive heart disease with heart failure; I50.21 Acute systolic (congestive) heart failure; Z95.810 Presence of automatic (implantable) cardiac defibrillator; W19.XXXA Unspecified fall, initial encounter
CPT/HCPCS: 70450; 71045; 72125; 80053; 83735; 83880; 84443; 84484; 85025; 93005; 99285

== ENCOUNTER 2025-10-06 09:54 | Outpatient (CLI) | payer MEDICARE, SELFPAY ==
--- OUTSIDE RECORDS SUMMARY | 2025-08-15 10:00 | XMS_ITS | Encounter Summary ---
Author Organization [facility] Address [address] [place] [address] Care Team Providers Care [employer] Radio Technician Name Role Phone Uli Salcedo Unavailable Rad Galvan MD Primary Care Provider [phone] Encounter Details Date Type Department Care Team (Latest Contact Info) Description 08/15/2025 11:00 AM EDT Ancillary Procedure [facility] [address] [place] [address] Chronic combined systolic and diastolic congestive heart [...] Clinician Note - Linda Garcia RN - 08/15/2025 11:00 AM EDT The patient has transmitted at least four times in the past 30 days and the provider has reviewed transmissions at least four times in the past 30 days. 07-24-2025 08:10 AM 37 mmHg 17 mmHg -1 25 mmHg 71 bpm 07-23-2025 06:50 AM 38 mmHg 19 mmHg 1 26 mmHg 71 bpm 07-22-2025 08:04 AM 44 mmHg 23 mmHg 5 31 mmHg 72 bpm 07-21-2025 09:05 AM 36 mmHg 17 mmHg -1 25 mmHg 71 bpm 07-20-2025 07:57 AM 40 mmHg 21 mmHg 3 29 mmHg 70 bpm 07-19-2025 07:30 AM 38 mmHg 19 mmHg 1 26 mmHg 71 bpm 07-18-2025 12:03 PM 40 mmHg 21 mmHg 3 29 mmHg 70 bpm 07-17-2025 07:47 AM 38 mmHg 18 mmHg 0 26 mmHg 71 bpm 07-16-2025 08:17 AM 38 mmHg 20 mmHg 2 28 mmHg 70 bpm 07-15-2025 08:32 AM 38 mmHg 17 mmHg -1 25 mmHg 72 bpm 07-13-2025 06:10 AM 36 mmHg 19 mmHg 1 25 mmHg 70 bpm 07-12-2025 09:33 AM 39 mmHg 19 mmHg 1 27 mmHg 72 bpm 07-11-2025 09:08 AM 42 mmHg 20 mmHg 2 28 mmHg 78 bpm 07-10-2025 08:34 AM 36 mmHg 17 mmHg -1 25 mmHg 74 bpm 07-09-2025 07:00 AM 41 mmHg 20 mmHg 2 29 mmHg 71 bpm 07-08-2025 08:38 AM 42 mmHg 20 mmHg 2 28 mmHg 71 bpm 07-07-2025 08:08 AM 43 mmHg 19 mmHg 1 28 mmHg 85 bpm 07-06-2025 08:31 AM 42 mmHg 20 mmHg 2 29 mmHg 71 bpm 07-05-2025 08:58 AM 43 mmHg 20 mmHg 2 30 mmHg 83 bpm 07-04-2025 09:08 AM 37 mmHg 17 mmHg -1 24 mmHg 76 bpm 07-03-2025 08:29 AM 40 mmHg 19 mmHg 1 27 mmHg 74 bpm 07-02-2025 07:17 AM 42 mmHg 20 mmHg 2 28 mmHg 73 bpm 07-01-2025 08:32 AM 42 mmHg 19 mmHg 1 28 mmHg 77 bpm 06-30-2025 09:04 AM 40 mmHg 18 mmHg 0 27 mmHg 75 bpm 06-27-2025 08:46 AM 42 mmHg 24 mmHg 6 32 mmHg 72 bpm 06-26-2025 08:59 AM 42 mmHg 23 mmHg 5 31 mmHg 74 bpm 06-25-2025 07:58 AM 40 mmHg 24 mmHg 6 30 mmHg 70 bpm 06-24-2025 07:38 AM 39 mmHg 22 mmHg 4 28 mmHg 72 bpm I have reviewed the CardioMEMS transmissions as reported above. Cosigned by Chika Orellana APRN at 08/16/2025 9:11 AM EDT Associated attestation - Chika Orellana APRN - 08/16/2025 9:11 AM EDT .card documented in this encounter Plan of Treatment Upcoming Encounters Date Type Department Care Team ([facility] st Contact Info) Description 10/17/2025 11:40 AM EST Office Visit [facility] [place] [address], [address] [place] [id number] Azael Mooney MD [address] [place] [phone] 01/13/2026 9:30 AM EST Office Visit [facility] [address] [place] [address] Elvin Schuler MD [address] [place] [phone] documented as of this encounter Visit Diagnoses [...] documented as of this encounter Care Teams [employer] Radio Technician Relationship Specialty Start Date End Date Rad Galvan MD [address] [place], [place] [id number] PCP - General 04/08/25 Uli Salcedo PA [address] [place] [address] Referring Physician 02/03/25 documented as of this encounter
--- OUTSIDE RECORDS SUMMARY | 2025-08-17 13:00 | XMS_ITS | Encounter Summary ---
Author Organization [facility] Address [address] [id number] Care Team Providers Care Chain Pegger Name Role Phone Rad Galvan MD Primary Care Provider + Reason for Referral * Consultation (Urgent) - Closed Specialty Diagnoses / Procedures Referred By Contac t Referred To Contact Nephrology Diagnoses Stage 4 chronic kidney disease Procedures [place] OFFICE/OUTPATIENT NEW MODERATE MDM 45 MINUTES Desi Beckford APRN [address] [place] [address] Phone: tel: fax: Azael Mooney MD [address] [place] [address] Phone: tel: fax: Referral ID Status Reason Start Date Expiration Date V isits Requested Visits Authorized [id number] Closed Specialty Services Required 08/17/2025 11/16/2026 1 1 Reason for Visit * Reason Comments Hospital Follow Up Visit Encounter Details Date Type Department Care Team (Latest Contact Info) Description 08/17/2025 2:00 PM EDT Office Visit [facility] [address] [facility] [place] [address] Desi Beckford APRN [address] [facility] [address] [place] [address] Hospital discharge follow-up (Primary Dx); [...] this encounter Progress Notes * Desi Beckford, TEACHER OF THE VISUALLY IMPAIRED - 08/17/2025 2:00 PM EDT Date: 08/17/2025 [...] scheduled for 09/21/2025. She also consulted a nurse educator during her hospital stay. Her phenobarbital was discontinued as it was causing jerking movements. She has a history of atrial fibrillation and is currently on Xarelto. Swelling in her feet and legsis reported, and her nurse educator, Dr. Pantoja, who primarily manages her heart [...] 60 tablet, Rfl: 2 Comfort EZ Pen [place] 32G X 6 MM [facility] [place], USE DIRECTED FOR insulin injections, Disp: 100 each, Rfl: 5 Continuous Glucose Real Estate Accountant (FreeStyle Simón 3 [place]) device, Use 1 each Daily., Disp: 1 [...] 15 minutes., Disp: 30 tablet, Rfl: 0 [place]-3 Fatty Acids (fish oil) 1000 MG capsule [...] but stable. - A referral to a metallography teacher, Dr. Azael Mooney, at [facility], was made for further evaluation and management. Patient or patient paper sales representative verbalized consent for the use of Ambient Listening during the visit with Desi Beckford APRN for chart documentation. 08/17/2025 16:19 EDT *30 minutes spent with patient POC, education and medication management. Follow Up: Return for Next scheduled follow up. Desi Terry APRN [facility] documented in this encounter Plan of [...] documented as of this encounter Care Teams Chain Pegger Relationship Specialty Start Date End Date Rad Galvan MD [address] [facility] [place] [address] [place] [address] PCP - General Family Medicine 04/15/22 documented as of this encounter
--- OUTSIDE RECORDS SUMMARY | 2025-08-22 13:00 | XMS_ITS | Encounter Summary ---
Author Organization [facility] Address [address] [place] [address] Care Team Providers Care Tooth Cutter Contact Wheel Name Role Phone Uli Salcedo PA Unavailable [phone] Rad Galvan MD Primary Care Provider [phone] Reason for Referral * Consultation (Routine) - Authorized Specialty Diagnoses / Procedures Referred By Regan greene Referred To Contact Diagnoses Stage 3b chronic kidney disease (CMS/HCC) Lenore Cobos MD [facility] [address] [address] Phone: tel: fax: Referral ID Status Reason Start Date Expiration Date V isits Requested Visits Authorized [id number] Authorized 08/22/2025 02/21/2027 1 1 Reason for Visit * Reason Comments Follow-up * Consultation (Urgent) - Closed Specialty Diagnoses / Procedures Referred By Regan greene Referred To Contact Nephrology Diagnoses Stage 4 chronic kidney disease (CMS/HCC) Procedures [place] OFFICE/OUTPATIENT NEW MODERATE MDM 45-59 MINUTES 131 ([email or web address]) - Ambulatory Referral to Nephrology Desi Beckford, ORE WASHER [address] [place] [address] Phone: tel: fax: Azael Mooney MD [address] [place] [address] Phone: tel: fax: Referral ID Status Reason Start Date Expiration Date Visits Re quested Visits Authorized [id number] Closed 08/17/2025 11/16/2026 1 1 Encounter Details Date Type Department Care Team (Late st Contact Info) Description 08/22/2025 2:00 PM EDT Office Visit [facility] [employer] [facility] Neph[facility], Bone & Mineral Metabolism [address] , [address] [place] [address] Lenore Seaman MD [address] [place] [address] Obesity (BMI 35.0-39.9 without comorbidity) (Primary Dx); Chronic systolic congestive heart failure (CMS/HCC); Stage 3b chronic kidney disease (CMS/HCC) Social History Tobacco Use Types Packs/Day Years Used Date Smoking Tobacco: Former Passive Smoke Exposure: Never Smokeless Tobacco: Never Alcohol Use Standard Drinks/Week Comments Not Currently 0 (1 standard drink = 0.6 oz pur e alcohol) PHQ-2 Answer Date Recorded Patient Health Questionnaire-2 Score 1 08/22/2025 PHQ-9 Answer Date Recorded Patient Health Questionnaire-9 Score 10 07/08/2025 Comments No Sex and Gender Information Value Date Recorded Sex Assigned at Not on file Legal Sex Female 7:16 PM EDT Gender Identity Not on file Sexual Orientation Not on file documented as of this encounter Last Filed Vital Signs Vital Sign Reading Time Taken Comments Blood Pressure - - Pulse 70 08/22/2025 2:01 PM EDT Temperature 36.3 C (97.4 F) 08/22/2025 2:01 PM EDT Respiratory Rate - - Oxygen Saturation 96% 08/22/2025 2:01 PM EDT Inhaled Oxygen Concentration - - Weight 91.5 kg (201 lb 11.5 oz) 08/22/2025 2:01 PM EDT Height 154.9 cm (5' 1 ) 08/22/2025 2:01 PM EDT Body Mass Index 38.11 08/22/2025 2:01 PM EDT documented in this encounter Functional Status * Over the past 2 weeks, how often have you been bothered by any of the following problems? Question Answer Date of Assessment Author Little interest or pleasure in doing things Not at all 08/22/2025 2:23 PM EDT Beata Hurtado Feeling down, depressed, or hopeless Several days 08/22/2025 2:23 PM EDT Beata Hurtado Patient Health Questionnaire -2 Score 1 08/22/2025 2:23 PM EDT Beata Hurtado * How difficult have these problems made it for you to do your work, take care of things at home, or get along with other people? Answer Date of Assessment Author Not difficult at all 08/22/2025 2:23 PM EDT Beata Savage documented as of this encounter Miscellaneous Notes * Progress Notes - Jb Acosta MBBS - 08/22/2025 2:00 PM EDT Nephrology Outpatient Consult Note Reason for referral: CKD evaluation Referring Provider: Desi Beckford APRN History of Present Illness The patient is a 70-year-old female who presents for CKD evaluation. She was referred by her primary care provider for an assessment of her chronic kidney disease. She has been informed of her kidney disease and elevated creatinine levels for the past 3 years but has not previously consulted with a dye range operator. Since 2020, her kidney function has shown abnormal results but has remained stable, with creatinine levels of 1.7 in November 2020 and 1.8 in June 2025. She has a history of heart failure, dual chamber ICD, atrial fibrillation, obstructive sleep apnea, diabetes managed with insulin, and nonalcoholic cirrhosis. Her current medications include Aldactone, Bumex, aspirin, potassium repletion, Xarelto, and metoprolol. She was previously on digoxin. She was recently hospitalized for a gastrointestinal bleed, during which pneumonia was discovered. A biopsy was performed due to a suspicion of cancer, but it was confirmed to be pneumonia. She experienced chest pain following the biopsy. During her hospital stay, concerns were raised about the potential risks of certain tests to her kidneys including IV contrast She is considering a heart transplant and is curious about its potential impact on her kidneys. Shehas been living independently since 2014 and is generally satisfied with her current lifestyle, although she avoids strenuous activities and long walks. She has been informed of the risk of stroke but remains optimistic. She is under the care of a window decorator who has expressed concerns about excessive fluid removal potentially damaging her kidneys. She has made dietary changes, including reducing her sugar intake. REVIEW OF SYSTEMS A complete 14-point review of systems was obtained and is negative except as reported in the HPI Past Medical History[1] Surgical History[2] Family History[3] Social History Tobacco Use Smoking status: Former Passive exposure: Never Smokeless tobacco: Never Substance Use Topics Alcohol use: Not Currently Medications Current Medications[4] Allergies[5] PHYSICAL EXAMINATION Visit Vitals Pulse 70 Temp 36.3 ??C (97.4 ??F) (Oral) Ht 1.549 m (5' 1 ) Wt 91.5 kg (201 lb 11.5 oz) LMP (LMP Unknown) SpO2 96% BMI 38.11 kg/m?? OB Status Postmenopausal Smoking Status Former BSA 1.98 m?? GA: well developed, well nourished, conversant, NAD HENT: Head is normocephalic and atraumatic. Mucous membranes are moist. RESP: Normal resp effort. Lungs clear to auscultation bilaterally. CV: Heart RRR, no murmurs or rubs MSK/Ext: 2+ LE edema NEURO: Grossly intact. No focal deficits. Cooperative LAB AND IMAGING RESULTS Lab Results Component Value Date CREATININE 1.80 (H) 07/08/2025 CREATININE 1.60 06/23/2025 EGFR 30.4 07/08/2025 EGFR 32 06/23/2025 BUN 52 (H) 07/08/2025 BUN 38 06/23/2025 NA 130 (L) 07/08/2025 NA 126 06/23/2025 K 3.7 07/08/2025 K 4.4 06/23/2025 CL 87 (L) 07/08/2025 CL 93 06/23/2025 CO2 28 07/08/2025 CO2 24 06/23/2025 Lab Results Component Value Date ALBUMIN 4.4 07/08/2025 CALCIUM 9.4 07/08/2025 Lab Results Component Value Date WBC 9.72 11/26/2020 HGB 11.5 11/26/2020 HCT 34.3 11/26/2020 MCV 99 (H) 11/26/2020 PLT 310 11/26/2020 No results found for: CREATU , URINEPRO , UTPCR , ALBCREA No lab exists for component: ALB Renal Panel: Lab Results Component Value Date NA 130 (L) 07/08/2025 K 3.7 07/08/2025 CL 87 (L) 07/08/2025 CO2 28 07/08/2025 BUN 52 (H) 07/08/2025 CREATININE 1.80 (H) 07/08/2025 EGFR 30.4 07/08/2025 CALCIUM 9.4 07/08/2025 MBD: Lab Results Component Value Date CALCIUM 9.4 07/08/2025 CBC: Lab Results Component Value Date WBC 9.72 11/26/2020 RBC 3.48 (L) 11/26/2020 HGB 11.5 11/26/2020 HCT 34.3 11/26/2020 PLT 310 11/26/2020 MCV 99 (H) 11/26/2020 Iron studies: No results found for: TIBC Urinalysis: No results found for: URBC , WBCU , PROTUR No results found for: URINEPRO , CREATU , UTPCR , ALBCREA I have independently reviewed and interpreted the test results and discussed with patient. ASSESSMENT/PLAN Assessment & Plan CKD 3b - Baseline Scr 1.6-1.8 with most recent eGFR ~30s Etiology multifactorial including long standing IDDM, HFrEF requiring AICD with a possible component of cardiorenal syndrome Unable to risk stratify currently based on KFRE and uACR Her CKD has remained stable for the past 4 years, with a creatinine level of 1.7 in November 2020 and 1.8 in June 2025. She is currently at stage 3B, with a kidney function of approximately 30 percent. Her blood pressure is stable, and she is not experiencing shortness of breath or lower urinary tract like symptoms. She is on Aldactone, aspirin, Bumex, potassium repletion, Xarelto, and metoprolol. She was advised to maintain good diabetic control, manage her blood pressure, stay hydrated, and avoid salty and fatty foods. A low sodium diet and fluid restriction to about 1.2 to 1.5 L per day were recommended. She was also advised to continue her diuretic regimen as prescribed by her window decorator. Blood work including Cystatin C, repeat RFP and calcium profile along with urine protein quantification will be conducted during her next visit in 2-3 months. 2. MALD Cirrhosis. She has been diagnosed with nonalcoholic fatty liver disease. Her CT scan shows stable cirrhosis with mild ascites. She does not appear decompensated at the moment 3. Insulin Dependent Diabetes Mellitus. Her A1c has improved from 7.8 to 7.2. She was advised to continue her insulin regimen, monitor her blood sugar levels throughout the day,and make lifestyle modifications including diet and exercise. Recently diagnosed bacterial pneumonia JAGUAR Atrial Fibrillation on chronic AC Viral Cardiomyopathy with dual chamber AICD Follow-up The patient will follow up in 2-3 months at [facility]. RTC in 6 months with ordered tests below to be done before next visit Jb Acosta, PGY5 Nephrology/Critical Care [1] Past Medical History: Diagnosis Date CHF (congestive heart failure) (CMS/HCC) Chronic kidney disease 2019 Diabetes mellitus (CMS/HCC) 2018 GERD (gastroesophageal reflux disease) Hyperlipemia Hypertension 1984 Hyperuricemia Personal history of other diseases of the digestive system History of hiatal hernia Restless leg syndrome Seizures (CMS/HCC) Unspecified convulsions (CMS/HCC) Seizures [2] Past Surgical History: Procedure Laterality Date APPENDECTOMY N/A Appendectomy from [facility] GALLBLADDER SURGERY N/A Anastomosis Of Gallbladder from [facility] INSERT / REPLACE / REMOVE PACEMAKER 2019 TONSILLECTOMY N/A Tonsillectomy from [facility] [3] Family History Problem Relation Name Age of Onset Cardiac disorder Other Diabetes Other Hypertension Other [4] Current Outpatient Medications Medication Sig Dispense Refill allopurinol (Zyloprim) 100 MG tablet Take 1 tablet by mouth daily. aspirin 81 MG chewable tablet Chew 1 tablet daily. 30 tablet 2 atorvastatin (Lipitor) 10 MG tablet Take 1 tablet by mouth daily. bumetanide (Bumex) 2 MG tablet Take 1 tablet by mouth 2 times a day. digoxin (Lanoxin) 125 MCG tablet Take 1 [...] Inject 8 Units under the skin. Ozempic, 0.25 or 0.5 MG/DOSE, 2 MG/3ML solution pen-injector inject 0.5 mg subcutaneously once weekly pantoprazole (Protonix) 40 MG EC tablet Take 1 tablet by mouth 2 times a day. PHENobarbital (Luminal) 32.4 MG tablet take three tablets by mouth every night at bedtime potassium chloride CR (K-Tab) 20 MEQ ER tablet Take 1 tablet by mouth 2 times a day. prednisoLONE acetate (Pred-Forte) 1 % ophthalmic suspension 1 drop 4 times a day. rOPINIRole (Requip) 2 MG tablet Take 1 tablet by mouth nightly. spironolactone (Aldactone) 25 MG tablet Take 1 tablet by mouth daily. traMADol (Ultram) 50 MG tablet TAKE ONE TABLET BY MOUTH EVERY 6 HOURS NEEDED FOR MODERATE TO SEVERE PAIN valsartan (Diovan) 40 MG tablet Take 1 tablet by mouth 2 times a day. Xarelto 15 MG tablet Take 1 tablet by mouth 1 time each day with dinner. bumetanide (Bumex) 1 MG tablet Take 2 tablets by mouth daily. Can take additional doses if needed (Patient not taking: Reported on 08/22/2025) 90 tablet 6 Ozempic, 2 MG/DOSE, 8 MG/3ML solution pen-injector INJECT 2 MG SUBCUTANEOUSLY ONCE A WEEK DIRECTED (Patient not taking: Reported on 08/22/2025) potassium chloride CR (Klor-Con M20) 20 MEQ ER tablet Take 1 tablet by mouth twice a day. (Patient not taking: Reported on 08/22/2025) Xarelto 20 MG tablet TAKE ONE TABLET BY MOUTH EVERY DAY FOR BLOOD THINNER (Patient not taking: Reported on 08/22/2025) No current facility-administered medications for this visit. [5] Allergies Allergen Reactions Empagliflozin Itching Ritalin [Methylphenidate] Itching Metoclopramide Rash and Other - please document in the comment field Promethazine Unknown - Patient states they do not know rxn details Cosigned by Lenore Cobos MD at 08/23/2025 9:08 AM EDT Associated attestation - Lenore Cobos MD - 08/23/2025 9:08 AM EDT I saw and evaluated the patient. I discussed the case with the resident/fellow and agree with the findings and plan as documented. Had a brief discussion regarding prognosis of her kidney disease. She has a high-risk of recurrent DEBORAH with volume overload. We discussed the topic of dialysis. We also discussed what it entails. We also discussed potential access for dialysis as well. Currently no indications for dialysis. She appears well compensated from cardiac standpoint although with pedal edema. We discussed compression stockings for the same. Time Spent: I personally spent a total of 55 minutes on this encounter. This time includes face to face with patient, counseling and discussion and/or coordination of care. documented in this encounter Plan of Treatment Upcoming Encounters Date Type Department Care Team (Late st Contact Info) Description 10/17/2025 11:40 AM EST Office Visit [facility] Nephrology, Bone & Mineral Metabolism [address], [address] [place] [address] Azael Mooney MD [address] [place] [address] 01/13/2026 9:30 AM EST Office Visit [facility] [address] [place] [address] Elvin Schuler MD [address] [place] [address] Scheduled Orders Name Type Priority Associated Diagnoses Orde r Schedule Renal Function Panel, Plasma Lab Routine Stage 3b chronic kidney disease ([facility]) Expected: 02/19/2026 (Approximate), Expires: 02/19/2027 Albumin-creatinine ratio, urine, random Lab Routine Stage 3b chronic kidney disease ([facility]) Expected: 10/22/2025 (Approximate), Expires: 02/23/2027 CBC W/O Differential Lab Routine Stage 3b chronic kidney disease ([facility]) Expected: 10/22/2025 (Approximate), Expires: 02/23/2027 Cystatin C Lab Routine Stage 3b chronic kidney disease ([facility]) Expected: 10/22/2025 (Approximate), Expires: 02/23/2027 Protein, Random, Urine with Creatinine Lab Routine Stage 3b chronic kidney disease ([facility]) Expected: 10/22/2025 (Approximate), Expires: 02/23/2027 PTH Intact Total Lab Routine Stage 3b chronic kidney disease ([facility]) Expected: 10/22/2025 (Approximate), Expires: 02/23/2027 Urinalysis with reflex microscopic (Culture NOT Included) Lab Routine Stage 3b chronic kidney disease ([facility]) Expected: 10/22/2025 (Approximate), Expires: 02/23/2027 Vitamin D 25 Hydroxy Lab Routine Stage 3b chronic kidney disease ([facility]) Expected: 10/22/2025 (Approximate), Expires: 02/23/2027 Scheduled Referrals Name Type Priority Associated Diagnoses Order Schedule Follow Up Nephrology Outpatient Referral Routine Stage 3b chronic kidney disease (CMS/HCC) Expected: 10/22/2025 (Approximate), Expires: 09/21/2026 documented as of this encounter Results * (ABNORMAL) Cystatin C (08/22/2025 3:59 PM EDT) Cystatin C 1.8(H) 0.61 - 0.95 mg/L 08/22/2025 6:18 PM EDT [facility] Blood Venous blood specimen / Unknown Venipuncture / Unknown 08/22/2025 3:59 PM EDT 08/22/2025 3:59 PM EDT us Lenore Cobos MD LAB BLOOD OR DERABLES Final Result [facility] [address] [place] [address] * Vitamin D 25 Hydroxy (08/22/2025 3:59 PM EDT) Vitamin D 25 Hydroxy 61.8 20.0 - 80.0 ng/mL 08/22/2025 7:20 PM EDT [facility] Blood Venous blood specimen / Unknown Venipuncture / Unknown 08/22/2025 3:59 PM EDT 08/22/2025 3:59 PM EDT Narrative [facility] - 08/22/2025 7:20 PM EDT Testing performed on [employer], standardized against NIST SRM 2972. When testing samples from patients whose predominant form of vitamin D is vitamin D2, such as patients receiving vitamin D2 supplementation, results that are subtherapeutic should be confirmed with another method, such as LC-MS/MS, before being used for patient management. Vitamin D, 25-Hydroxy reference range, age 18 years and up: Deficiency: <12 ng/mL Insufficiency: 12 to 19 ng/mL Sufficiency: 20 to 80 ng/mL Possible toxicity: >100 ng/mL us Lenore Cobos MD LAB BLOOD OR DERABLES Final Result Performing Organization Address City/[facility]/ZIP Co de Phone Number [facility] [address] [place] [address] * (ABNORMAL) PTH Intact Total (08/22/2025 3:59 PM EDT) Pathologist [facility] PTH Intact Total 242(H) 9 - 77 pg/mL 08/22/2025 6:11 PM EDT [facility] Blood Venous blood specimen / Unknown Venipuncture / Unknown 08/22/2025 3:59 PM EDT 08/22/2025 3:59 PM EDT Narrative [facility] - 08/22/2025 6:11 PM EDT Assay performed by immunoassay at the [facility]. Performed on [employer] chemiluminescent immunoassay, tractable to the World Health Organization's first international standard for PTH from the [facility], Code 79/500. Results obtained from different test methods or kits cannot be used interchangeably. Lenore Cobos MD LAB BLOOD OR DERABLES Final Result Performing Organization Address [facility]/ZIP Co de Phone Number [facility] [address] [place] [address] * (ABNORMAL) CBC W/O Differential (08/22/2025 3:59 PM EDT) [facility] WBC Count 7.37 3.70 - 10.30 10*3/uL LAB HEMATOLOGY METHOD 08/22/2025 5:23 PM EDT [facility] RBC Count 2.97(L) 3.90 - 5.20 10*6/uL LAB HEMATOLOGY METHOD 08/22/2025 5:23 PM EDT [facility] HGB 10.1(L) 11.2 - 15.7 g/dL LAB HEMATOLOGY METHOD 08/22/2025 5:23 PM EDT [facility] HCT 31.6(L) 34.0 - 45.0 % LAB HEMATOLOGY METHOD 08/22/2025 5:23 PM EDT [facility] Platelet Count 208 155 - 369 10*3/uL LAB HEMATOLOGY METHOD 08/22/2025 5:23 PM EDT [facility] MCV 106(H) 79 - 98 fL LAB HEMATOLOGY METHOD 08/22/2025 5:23 PM EDT [facility] MCH 34.0(H) 26.0 - 32.0 pg LAB HEMATOLOGY METHOD 08/22/2025 5:23 PM EDT [facility] MCHC 32.0 30.7 - 35.5 g/dL LAB HEMATOLOGY METHOD 08/22/2025 5:23 PM EDT [facility] RDW 15.4(H) 11.5 - 14.5 % LAB HEMATOLOGY METHOD 08/22/2025 5:23 PM EDT [facility] MPV 10.1 8.8 - 12.5 fL LAB HEMATOLOGY METHOD 08/22/2025 5:23 PM EDT [facility] nRBC 0.0 <=0.0 per 100 WBCs LAB HEMATOLOGY METHOD 08/22/2025 5:23 PM EDT [facility] Blood Venous blood specimen / Unknown Venipuncture / Unknown 08/22/2025 3:59 PM EDT 08/22/2025 3:59 PM EDT Lenore Cobos MD LAB BLOOD OR DERABLES Final Result [facility] [address] [place] [address] * (ABNORMAL) Renal Function Panel, Plasma (08/22/2025 3:59 PM EDT) Glucose, Plasma 178(H) 74 - 99 mg/dL 08/22/2025 5:45 PM EDT [facility] BUN, Plasma 32(H) 8 - 23 mg/dL 08/22/2025 5:45 PM EDT [facility] Creatinine, Plasma 1.55(H) 0.60 - 1.10 mg/dL 08/22/2025 5:45 PM EDT [facility] BUN/Creatinine Ratio 21 08/22/2025 5:45 PM EDT [facility] Sodium, Plasma 136 136 - 145 mmol/L 08/22/2025 5:45 PM EDT [facility] Potassium, Plasma 4.6 3.6 - 4.9 mmol/L 08/22/2025 5:45 PM EDT [facility] Chloride, Plasma 92(L) 97 - 107 mmol/L 08/22/2025 5:45 PM EDT [facility] CO2, Plasma 30(H) 22 - 29 mmol/L 08/22/2025 5:45 PM EDT [facility] Anion Gap 14 6 - 16 mmol/L 08/22/2025 5:45 PM EDT [facility] Total Calcium, Plasma 9.6 8.9 - 10.2 mg/dL 08/22/2025 5:45 PM EDT [facility] Phosphorus, Plasma 3.6 2.5 - 4.5 mg/dL 08/22/2025 5:45 PM EDT [facility] Albumin, Plasma 4.1 3.5 - 5.2 g/dL 08/22/2025 5:45 PM EDT [facility] eGFRcr 36.3 mL/min/1.7 3m*2 08/22/2025 5:45 PM EDT [facility] Comment:Reported eGFRcr in m L/min/1.73m2 is based the CKD-EPI 2020 equation that does not use a race coefficient. Blood Venous blood specimen / Unknown Venipuncture / Unknown 08/22/2025 3:59 PM EDT 08/22/2025 3:59 PM EDT us Lenore Cobos MD LAB BLOOD OR DERABLES Final Result [facility] [address] [place] [address] * Protein, Random, Urine with Creatinine (08/22/2025 3:48 PM EDT) Protein, Urine 6 mg/dL 08/22/2025 5:50 PM EDT [facility] Creatinine, Urine 19 mg/dL 08/22/2025 5:50 PM EDT [facility] Protein/Creati nine Ratio 0.3 mg/mg Creat 08/22/2025 5:50 PM EDT [facility] Urine Urine specimen obtained by clean catch procedure / Unknown Non-blood Collection / Unknown 08/22/2025 3:48 PM EDT 08/22/2025 3:48 PM EDT us Lenore Cobos MD LAB URINE OR DERABLES Final Result [facility] [address] [place] [address] * (ABNORMAL) Urinalysis with reflex microscopic (Culture NOT Included) (08/22/2025 3:48 PM EDT) Color, Urine Yellow LAB URINALYSIS - AUTOMATED METHOD 08/22/2025 5:22 PM EDT [facility] Clarity, Urine Clear LAB URINALYSIS - AUTOMATED METHOD 08/22/2025 5:22 PM EDT [facility] Spec [place], Urine 1.009 1.005 - 1.030 LAB URINALYSIS - AUTOMATED METHOD 08/22/2025 5:22 PM EDT [facility] pH, Urine 7.0 5.0 - 8.0 LAB URINALYSIS - AUTOMATED METHOD 08/22/2025 5:22 PM EDT [facility] Protein, Urine Negative Negative mg/dL LAB URINALYSIS - AUTOMATED METHOD 08/22/2025 5:22 PM EDT [facility] Glucose, Urine 500(A) Negative mg/dL LAB URINALYSIS - AUTOMATED METHOD 08/22/2025 5:22 PM EDT [facility] Ketones, Urine Negative Negative mg/dL LAB URINALYSIS - AUTOMATED METHOD 08/22/2025 5:22 PM EDT [facility] Blood, Urine Negative Negative LAB URINALYSIS - AUTOMATED METHOD 08/22/2025 5:22 PM EDT [facility] Bilirubin, Urine Negative Negative LAB URINALYSIS - AUTOMATED METHOD 08/22/2025 5:22 PM EDT [facility] Urobilinogen, Urine 0.2 0.2 to 1.0 mg/dL LAB URINALYSIS - AUTOMATED METHOD 08/22/2025 5:22 PM EDT [facility] Leukocytes, Urine Negative Negative LAB URINALYSIS - AUTOMATED METHOD 08/22/2025 5:22 PM EDT [facility] Nitrite, Urine Negative Negative LAB URINALYSIS - AUTOMATED METHOD 08/22/2025 5:22 PM EDT [facility] Urine Urine specimen obtained by clean catch procedure / Unknown Non-blood Collection / Unknown 08/22/2025 3:48 PM EDT 08/22/2025 3:48 PM EDT us Lenroe Cobos MD LAB URINE OR DERABLES Final Result [facility] [address] [place] [address] * Albumin-creatinine ratio, urine, random (08/22/2025 3:48 PM EDT) Microalbumin, Urine <1.2 <1.9 mg/dL 08/22/2025 6:20 PM EDT [facility] Creatinine, Urine 19 mg/dL 08/22/2025 6:20 PM EDT [facility] Albumin/Creatin ine Ratio 08/22/2025 6:20 PM EDT [facility] Comment:Unable to calculate, at least one value is above or below the detection limit. Urine Urine specimen obtained by clean catch procedure / Unknown Non-blood Collection / Unknown 08/22/2025 3:48 PM EDT 08/22/2025 3:48 PM EDT Lenore Cobos MD LAB URINE OR DERABLES Final Result Performing Organization Address City/[facility] Co de Phone Number [facility] [address] [place] [address] documented in this encounter Visit Diagnoses Diagnosis Obesity (BMI 35.0-39.9 without comorbidity)- Primary Chronic systolic congestive heart failure Stage 3b chronic kidney disease (CMS/HCC) documented in this encounter Additional Health Concerns Assessment Noted Time PHQ-9 Depression Total Score: 10 025 1:50 PM EDT A fall risk assessment has been complete d for the patient 08/22/2025 2:31 PM EDT A Body Mass Index follow-up plan has been documented for the patient 08/23/2025 9:08 AM EDT documented as of this encounter Care Teams Tooth Cutter Contact Wheel Relationship Specialty Start Date End Date Rad Galvan MD [address] [place] [address] PCP - General 04/08/25 Uli Salcedo PA [address] [place] [address] Referring Physician 02/03/25 documented as of this encounter
--- OUTSIDE RECORDS SUMMARY | 2025-09-07 19:00 | XMS_ITS | Clinical Summary ---
Author Organization Unknown Care Team Providers Care Veneer Cutter Name Role Phone MARYCARMEN MARTINEZ, CJ Unavailable Unavailable IVANNA GONZALES, JENNYFER Unavailable Unavailable Payers Payer Name Policy Type Policy Number Effective Date Expira tion Date [employer]AK.PP[employer].C.AUTH [id number] Problems Condition Name Condition Details Condition Category Status Onset Date Resolution Date Last Treatment Date Treating Clinician Comments IRON DEFICIENCY ANEMIA, UNSPECIFIED Active 08-10 00:00: 00 LOBAR PNEUMONIA, UNSPECIFIED ORGANISM Active 08-18 00:00: 00 HYP HRT AND CHR KDNY DIS W HRT FAIL AND STG 1-4/UNSP CHR KDNY Active 11-24 00:00: 00 CHRONIC SYSTOLIC (CONGESTIVE) HEART FAILURE Active 08-18 00:00: 00 TYPE 2 DIABETES MELLITUS W DIABETIC CHRONIC KIDNEY DISEASE Active 11-24 00:00: 00 CHRONIC KIDNEY DISEASE, STAGE 4 (SEVERE) Active 08-17 00:00: 00 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 11-24 00:00: 00 EPILEPSY, UNSP, NOT INTRACTABLE, WITHOUT STATUS EPILEPTICUS Active 11-24 00:00: 00 UNSPECIFIED ATRIAL FIBRILLATION Active 11-24 00:00: 00 GASTRO-ESOPH AGEAL REFLUX DISEASE WITHOUT ESOPHAGITIS Active 11-24 00:00: 00 OTHER DISEASES OF STOMACH AND DUODENUM Active 08-18 00:00: 00 UNSPECIFIED CIRRHOSIS OF LIVER Active 08-18 00:00: 00 MORBID (SEVERE) OBESITY DUE TO EXCESS CALORIES Active 08-18 00:00: 00 ANXIETY DISORDER, UNSPECIFIED Active 11-24 00:00: 00 NONTOXIC MULTINODULAR GOITER Active 08-18 00:00: 00 HYPERLIPIDEM IA, UNSPECIFIED Active 11-24 00:00: 00 BODY MASS INDEX [BMI]40.0-44 .9, ADULT Active 08-18 00:00: 00 HISTORY OF FALLING Active 08-18 00:00: 00 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 Active 11-24 00:00: 00 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 Ordering Clinician Indication Dosage Frequency Signature (SIG) Comments Components insulin aspart (U-100) 100 unit/mL (3 mL) subcutaneou s pen 01-20 00:00: 00 02-02 17:09 :37 No [id number] DM 100 unit DAILY 100 unit DAILY (route: subcutaneo ) Med Classific ation: Endocrine bumetanide 1 mg tablet 01-12 00:00: 00 02-02 17:09 :37 No [id number] CHF 2 mg DAILY 2 mg DAILY (route: oral) Med Classific ation: Cardiovas cular Therapy Agents metolazone 2.5 mg tablet 01-12 00:00: 00 02-02 17:09 :37 No [id number] CHF 5 mg EVERY 48 HOURS 5 mg EVERY 48 HOURS (route: oral) Med Classific ation: Cardiovas cular Therapy Agents spironolact one 25 mg tablet 2 00:00: 00 02-02 17:09 :37 No [id number] CHF 25 mg 2 TIMES DAILY 25 mg 2 TIMES DAILY (route: oral) Med Classific ation: Cardiovas cular Therapy Agents tramadol 50 mg tablet 2-19 00:00: 00 02-02 17:09 :37 No [id number] PAIN 50 mg EVERY 6 HOURS NEEDED 50 mg EVERY 6 HOURS NEEDED (route: oral) Med Classific ation: Analgesic , Anti-infl ammatory or Antipyret ic allopurinol 100 mg tablet 2- 00:00: 00 02-02 17:09 :37 No [id number] GOUT 1 tablet EVERY DAY 1 tablet EVERY DAY (route: oral) Med Classific ation: Gout and Hyperuric emia Therapy gabapentin 800 mg tablet 12-29 00:00: 00 02-02 17:09 :37 No [id number] NEUROPATHY 600 mg THREE TIMES DAILY 600 mg THREE TIMES DAILY (route: oral) Med Classific ation: Central Nervous System Agents atorvastati n 10 mg tablet 12-27 00:00: 00 02-02 17:09 :37 No [id number] CAD 40 mg EVERY DAY 40 mg EVERY DAY (route: oral) Med Classific ation: Cardiovas cular Therapy Agents digoxin 125 mcg (0.125 mg) tablet 12-27 00:00: 00 02-02 17:09 :37 No [id number] SEIZURES 1 tablet EVERY DAY 1 tablet EVERY DAY (route: oral) Med Classific ation: Cardiovas cular Therapy Agents Farxiga 10 mg tablet 2- 00:00: 00 02-02 17:09 :37 No [id number] DM 10 mg EVERY DAY 10 mg EVERY DAY (route: oral) Med Classific ation: Endocrine loratadine 10 mg tablet - 00:00: 00 02-02 17:09 :37 No [id number] ALLERGY 10 mg EVERY DAY 10 mg EVERY DAY (route: oral) Med Classific ation: Respirato ry Therapy Agents Ozempic 0.25 mg or 0.5 mg (2 mg/3 mL) subcutaneou s pen injector 2- 00:00: 00 02-02 17:09 :37 No [id number] DM 0.5 mg 05 MG SUBCUTANEO USLY ONCE a WEEK DIRECTED 0.5 mg 05 MG SUBCUTANEO USLY ONCE a WEEK DIRECTED (route: subcutaneo us) Med Classific ation: Endocrine pantoprazol e 40 mg tablet,audrey yed release 12-27 00:00: 00 02-02 17:09 :37 No [id number] GERD 40 mg TWICE DAILY 40 mg TWICE DAILY (route: oral) Med Classific ation: Gastroint estinal Therapy Agents phenobarbit al 32.4 mg tablet 12-27 00:00: 00 02-02 17:09 :37 No [id number] SEIZURES 48.6 mg EVERY NIGHT AT BEDTIME 48.6 mg EVERY NIGHT AT BEDTIME (route: oral) Med Classific ation: Central Nervous System Agents valsartan 40 mg tablet 12-27 00:00: 00 02-02 17:09 :37 No [id number] CHF 40 mg DAILY 40 mg DAILY (route: oral) Med Classific ation: Cardiovas cular Therapy Agents duloxetine 30 mg capsule,del ayed release 08-19 00:00: 00 Yes [id number] DEPRESSION 30 mg DAILY 30 mg DAILY (route: oral) Med Classific ation: Central Nervous System Agents Humulin 70/30 U-100 Insulin 100 unit/mL subcutaneou s suspension 08-19 00:00: 00 Yes [id number] DM 60 unit BEDTIME 60 unit BEDTIME (route: subcutaneo us) Med Classific ation: Endocrine levofloxaci n 750 mg tablet 08-19 00:00: 00 Yes [id number] UTI 1 tablet EVERY 48 HOURS 1 tablet EVERY 48 HOURS (route: oral) Med Classific ation: Anti-Infe ctive Agents potassium chloride 20 mEq oral packet 08-19 00:00: 00 Yes [id number] SUPP 20 mEq DAILY 20 mEq DAILY (route: oral) Med Classific ation: Electroly te Balance-N utritiona l Products prednisolon e 1 %-moxifloxa yair 0.5 %-ketorolac 0.5 % eye drops 08-19 00:00: 00 Yes [id number] EYES 1 drops DAILY 1 drops DAILY (route: ophthalmic (eye)) Med Classific ation: Ophthalmi c Agents Xarelto 15 mg tablet 08-19 00:00: 00 Yes [id number] AFIB 15 mg DAILY 15 mg DAILY (route: oral) Med Classific ation: Hematolog ical Agents Vital Signs Vital Name Observation Time Observation Value Commen ts Temperature 2025-09-08 14:56:00.000 97.6 [degF] Temperature 2025-09-02 14:53:00.000 98.4 [degF] Temperature 2025-08-22 08:56:00.000 97.5 [degF] Temperature 2025-08-19 13:44:00.000 98 [degF] BMI (%) 2025-08-22 08:40:49.000 42 kg/m2 Height 2025-08-22 08:40:39.000 61 [in_us] Pulse 2025-09-08 14:56:00.000 68 /min Pulse 2025-09-02 14:53:00.000 73 /min Pulse 2025-08-22 08:56:00.000 62 /min Pulse 2025-08-19 13:44:00.000 72 /min O2 Saturation (%) 2025-09-02 14:55:00.000 96 % O2 Saturation (%) 2025-08-19 13:44:00.000 94 % Pain 2025-09-08 14:56:00.000 0 Pain 2025-09-02 14:53:00.000 0 Pain 2025-08-22 08:56:00.000 0 Pain 2025-08-19 13:44:00.000 0 Respirations 2025-09-08 14:56:00.000 18 /min Respirations 2025-09-02 14:53:00.000 18 /min Respirations 2025-08-22 08:56:00.000 18 /min Respirations 2025-08-19 13:44:00.000 18 /min Weight (lbs) 2025-08-22 08:40:49.000 225 [lb_av] Weight (kgs) 2025-09-02 14:55:00.000 200 Systolic Blood Pressure 2025-09-08 14:56:00.000 130 mm [Hg] Systolic Blood Pressure 2025-09-02 14:53:00.000 102 mm [Hg] Systolic Blood Pressure 2025-08-22 08:56:00.000 92 mm[ Hg] Systolic Blood Pressure 2025-08-19 13:44:00.000 108 mm [Hg] Diastolic Blood Pressure 2025-09-08 14:56:00.000 66 mm [Hg] Diastolic Blood Pressure 2025-09-02 14:53:00.000 50 mm [Hg] Diastolic Blood Pressure 2025-08-22 08:56:00.000 54 mm [Hg] Diastolic Blood Pressure 2025-08-19 13:44:00.000 62 mm [Hg] Plan of Treatment Planned Activity Planned Date Details Comments Future Scheduled Test RN TO OBSE RVE, ASSESS, EVALUATE, AND DEVELOP AN INDIVIDUALIZED PLAN OF CARE. AGENCY MAY ACCEPT ORDERS FROM CONSULTING PHYSICIANS ALSO DR HERNANDEZ AT APPLICATION TECHNICIAN TO OBSERVE AND ASSESS, HOSPITALITY JOB TITLES/AGRICULTURE INTERN TO OBSERVE FOR RISK FOR FALLS AND INSTRUCT IN FALL PREVENTION, HOME SAFETY, MEDICATION MANAGEMENT, INFECTION PREVENTION, AND NUTRITION MANAGEMENT. RN/HOSPITALITY JOB TITLES/AGRICULTURE INTERN NURSE MAY PERFORM O2 SATURATION LEVEL ON ADMISSION AND PRN FOR RN TO ASSESS/HOSPITALITY JOB TITLES TO OBSERVE PATIENT, WITH NOTIFICATION TO THE PHYSICIAN IF SATURATION IS 90% IN THE ABSENCE OF MORE SPECIFIC PARAMETERS FROM THE PHYSICIAN. AGENCY MAY PERFORM A RESUMPTION OF CARE VISIT FOLLOWING ANY HOSPITAL ADMISSION. RN/HOSPITALITY JOB TITLES/AGRICULTURE INTERN TO MONITOR CO-MORBID CONDITIONS LISTED ON THE PLAN OF CARE AND ANY NEW CONDITIONS THAT PRESENT THEMSELVES DURING THIS EPISODE TO IDENTIFY CHANGES AND INTERVENE TO MINIMIZE COMPLICATIONS. [code = RN TO OBSERVE, ASSESS, EVALUATE, AND DEVELOP AN INDIVIDUALIZED PLAN OF CARE. AGENCY MAY ACCEPT ORDERS FROM CONSULTING PHYSICIANS ALSO DR HERNANDEZ AT APPLICATION TECHNICIAN TO OBSERVE AND ASSESS, HOSPITALITY JOB TITLES/AGRICULTURE INTERN TO OBSERVE FOR RISK FOR FALLS AND INSTRUCT IN FALL PREVENTION, HOME SAFETY, MEDICATION MANAGEMENT, INFECTION PREVENTION, AND NUTRITION MANAGEMENT. RN/HOSPITALITY JOB TITLES/AGRICULTURE INTERN NURSE MAY PERFORM O2 SATURATION LEVEL ON ADMISSION AND PRN FOR RN TO ASSESS/HOSPITALITY JOB TITLES TO OBSERVE PATIENT, WITH NOTIFICATION TO THE PHYSICIAN IF SATURATION IS 90% IN THE ABSENCE OF MORE SPECIFIC PARAMETERS FROM THE PHYSICIAN. AGENCY MAY PERFORM A RESUMPTION OF CARE VISIT FOLLOWING ANY HOSPITAL ADMISSION. RN/HOSPITALITY JOB TITLES/AGRICULTURE INTERN TO MONITOR CO-MORBID CONDITIONS LISTED ON THE PLAN OF CARE AND ANY NEW CONDITIONS THAT PRESENT THEMSELVES DURING THIS EPISODE TO IDENTIFY CHANGES AND INTERVENE TO MINIMIZE COMPLICATIONS.] Future Scheduled Test RISK FOR H OSPITALIZATION; RN TO ASSESS/TEACH, AGRICULTURE INTERN/HOSPITALITY JOB TITLES TO OBSERVE/TEACH PATIENT/CAREGIVER ON RISK FOR HOSPITALIZATION/EMERGENCY ROOM VISITS, TEACH SIGNS AND SYMPTOMS THAT PUT PATIENT AT RISK, WHEN TO NOTIFY NURSE/PHYSICIAN OF COMPLICATIONS/DECLINE, AND WHEN TO CALL 911. [code = RISK FOR HOSPITALIZATION; RN TO ASSESS/TEACH, AGRICULTURE INTERN/HOSPITALITY JOB TITLES TO OBSERVE/TEACH PATIENT/CAREGIVER ON RISK FOR HOSPITALIZATION/EMERGENCY ROOM VISITS, TEACH SIGNS AND SYMPTOMS THAT PUT PATIENT AT RISK, WHEN TO NOTIFY NURSE/PHYSICIAN OF COMPLICATIONS/DECLINE, AND WHEN TO CALL 911.] Future Scheduled Test CARDIOVASC ULAR SYSTEM; RN TO ASSESS/TEACH, HOSPITALITY JOB TITLES/AGRICULTURE INTERN TO OBSERVE/TEACH RELATED TO ALTERED CARDIOVASCULAR STATUS TO MINIMIZE COMPLICATIONS AND REDUCE HOSPITALIZATION. [code = CARDIOVASCULAR SYSTEM; RN TO ASSESS/TEACH, HOSPITALITY JOB TITLES/AGRICULTURE INTERN TO OBSERVE/TEACH RELATED TO ALTERED CARDIOVASCULAR STATUS TO MINIMIZE COMPLICATIONS AND REDUCE HOSPITALIZATION.] Future Scheduled Test HEART FAIL URE; RN TO ASSESS/TEACH, HOSPITALITY JOB TITLES/AGRICULTURE INTERN TO OBSERVE/TEACH CARDIOPULMONARY SYSTEM TO IDENTIFY SIGNS OF DECOMPENSATION AND INTERVENE TO MINIMIZE THE SEVERITY OF FLUID OVERLOAD. OBSERVE PATIENT ABILITY TO MONITOR AND RECORD DAILY WEIGHTS AND VITAL SIGNS, INCLUDING PULSE AND BLOOD PRESSURE; RECORD PATIENT REPORTED WEIGHT, OR WEIGH PATIENT NEEDED. REPORT INCREASED EDEMA OR WEIGHT GAIN OF >2 LBS IN 1 DAY OR >5 LBS IN 1 WEEK OR 5LBS OR MORE OVER TARGET WEIGHT. MAY MEASURE ABDOMINAL GIRTH IF UNABLE TO WEIGH. SCALES AND BP MONITOR TO BE PROVIDED IF NEEDED. [code = HEART FAILURE; RN TO ASSESS/TEACH, HOSPITALITY JOB TITLES/AGRICULTURE INTERN TO OBSERVE/TEACH CARDIOPULMONARY SYSTEM TO IDENTIFY SIGNS OF DECOMPENSATION AND INTERVENE TO MINIMIZE THE SEVERITY OF FLUID OVERLOAD. OBSERVE PATIENT ABILITY TO MONITOR AND RECORD DAILY WEIGHTS AND VITAL SIGNS, INCLUDING PULSE AND BLOOD PRESSURE; RECORD PATIENT REPORTED WEIGHT, OR WEIGH PATIENT NEEDED. REPORT INCREASED EDEMA OR WEIGHT GAIN OF >2 LBS IN 1 DAY OR >5 LBS IN 1 WEEK OR 5LBS OR MORE OVER TARGET WEIGHT. MAY MEASURE ABDOMINAL GIRTH IF UNABLE TO WEIGH. SCALES AND BP MONITOR TO BE PROVIDED IF NEEDED.] Future Scheduled Test HYPOTENSIO N MANAGEMENT; RN TO ASSESS AND TEACH/ HOSPITALITY JOB TITLES /AGRICULTURE INTERN TO OBSERVE AND TEACH WARNING SIGNS AND SYMPTOMS TO AVOID HOSPITALIZATION. [code = HYPOTENSION MANAGEMENT; RN TO ASSESS AND TEACH/ HOSPITALITY JOB TITLES /AGRICULTURE INTERN TO OBSERVE AND TEACH WARNING SIGNS AND SYMPTOMS TO AVOID HOSPITALIZATION.] Future Scheduled Test ARRHYTHMIA MANAGEMENT; RN TO ASSESS AND TEACH, HOSPITALITY JOB TITLES/AGRICULTURE INTERN TO OBSERVE AND TEACH WARNING SIGNS AND SYMPTOMS TO AVOID HOSPITALIZATION. [code = ARRHYTHMIA MANAGEMENT; RN TO ASSESS AND TEACH, HOSPITALITY JOB TITLES/AGRICULTURE INTERN TO OBSERVE AND TEACH WARNING SIGNS AND SYMPTOMS TO AVOID HOSPITALIZATION.] Future Scheduled Test NEUROLOGIC AL SYSTEM MANAGEMENT; RN TO ASSESS AND TEACH, AGRICULTURE INTERN/HOSPITALITY JOB TITLES TO OBSERVE AND TEACH RELATED TO ALTERED NEUROLOGICAL STATUS TO MINIMIZE COMPLICATIONS AND REDUCE HOSPITALIZATION. [code = NEUROLOGICAL SYSTEM MANAGEMENT; RN TO ASSESS AND TEACH, AGRICULTURE INTERN/HOSPITALITY JOB TITLES TO OBSERVE AND TEACH RELATED TO ALTERED NEUROLOGICAL STATUS TO MINIMIZE COMPLICATIONS AND REDUCE HOSPITALIZATION.] Future Scheduled Test SEIZURE DI SORDER MANAGEMENT; RN/AGRICULTURE INTERN/HOSPITALITY JOB TITLES TO PROVIDE INSTRUCTION REGARDING MANAGEMENT OF SEIZURE DISORDER AND SEIZURE PRECAUTIONS. [code = SEIZURE DISORDER MANAGEMENT; RN/AGRICULTURE INTERN/HOSPITALITY JOB TITLES TO PROVIDE INSTRUCTION REGARDING MANAGEMENT OF SEIZURE DISORDER AND SEIZURE PRECAUTIONS.] Future Scheduled Test DIABETES M ANAGEMENT; RN TO ASSESS AND TEACH, AGRICULTURE INTERN/HOSPITALITY JOB TITLES TO OBSERVE AND TEACH INSTRUCTIONS OF DIABETIC CARE TO INCLUDE: DIET CARDIAC DIABETIC SKIN CARE, SIGNS AND SYMPTOMS OF HYPO/HYPERGLYCEMIA, PROPER ADMINISTRATION OF DIABETIC MEDICATION. RN/AGRICULTURE INTERN/HOSPITALITY JOB TITLES TO INSTRUCT ON DIABETIC FOOT CARE AND MONITOR FOR SKIN LESIONS ON LOWER EXTREMITIES. BLOOD GLUCOSE TESTING FREQ. RN TO ASSESS AND TEACH, AGRICULTURE INTERN/HOSPITALITY JOB TITLES TO OBSERVE AND TEACH PATIENT/CAREGIVER ABILITY TO PERFORM AND RECORD BLOOD GLUCOSE TESTING ORDERED AND TO REPORT ABNORMAL FINDINGS TO PHYSICIAN. RN/AGRICULTURE INTERN/HOSPITALITY JOB TITLES MAY PERFORM BLOOD GLUCOSE TEST NEEDED. RN/AGRICULTURE INTERN/HOSPITALITY JOB TITLES TO REPORT TO PHYSICIAN BLOOD GLUCOSE READINGS GREATER THAN 250 OR LESS THAN 80 RN/AGRICULTURE INTERN/HOSPITALITY JOB TITLES TO INSTRUCT PATIENT ON IMPORTANCE OF HGBA1C MONITORING, KIDNEY FUNCTION TEST, EYE AND FOOT EXAMS. [code = DIABETES MANAGEMENT; RN TO ASSESS AND TEACH, AGRICULTURE INTERN/HOSPITALITY JOB TITLES TO OBSERVE AND TEACH INSTRUCTIONS OF DIABETIC CARE TO INCLUDE: DIET CARDIAC DIABETIC SKIN CARE, SIGNS AND SYMPTOMS OF HYPO/HYPERGLYCEMIA, PROPER ADMINISTRATION OF DIABETIC MEDICATION. RN/AGRICULTURE INTERN/HOSPITALITY JOB TITLES TO INSTRUCT ON DIABETIC FOOT CARE AND MONITOR FOR SKIN LESIONS ON LOWER EXTREMITIES. BLOOD GLUCOSE TESTING FREQ. RN TO ASSESS AND TEACH, AGRICULTURE INTERN/HOSPITALITY JOB TITLES TO OBSERVE AND TEACH PATIENT/CAREGIVER ABILITY TO PERFORM AND RECORD BLOOD GLUCOSE TESTING ORDERED AND TO REPORT ABNORMAL FINDINGS TO PHYSICIAN. RN/AGRICULTURE INTERN/HOSPITALITY JOB TITLES MAY PERFORM BLOOD GLUCOSE TEST NEEDED. RN/AGRICULTURE INTERN/HOSPITALITY JOB TITLES TO REPORT TO PHYSICIAN BLOOD GLUCOSE READINGS GREATER THAN 250 OR LESS THAN 80 RN/AGRICULTURE INTERN/HOSPITALITY JOB TITLES TO INSTRUCT PATIENT ON IMPORTANCE OF HGBA1C MONITORING, KIDNEY FUNCTION TEST, EYE AND FOOT EXAMS.] Future Scheduled Test GENITOURIN FELIX MANAGEMENT; RN TO ASSESS AND TEACH, HOSPITALITY JOB TITLES/AGRICULTURE INTERN TO OBSERVE AND TEACH RELATED TO ALTERED GENITOURINARY STATUS TO MINIMIZE COMPLICATIONS AND REDUCE HOSPITALIZATION. [code = GENITOURINARY MANAGEMENT; RN TO ASSESS AND TEACH, HOSPITALITY JOB TITLES/AGRICULTURE INTERN TO OBSERVE AND TEACH RELATED TO ALTERED GENITOURINARY STATUS TO MINIMIZE COMPLICATIONS AND REDUCE HOSPITALIZATION.] Future Scheduled Test GASTROINTE STINAL MANAGEMENT; RN TO ASSESS AND TEACH, AGRICULTURE INTERN/HOSPITALITY JOB TITLES TO OBSERVE AND TEACH RELATED TO ALTERED GASTROINTESTINAL STATUS TO MINIMIZE COMPLICATIONS AND REDUCE HOSPITALIZATION. [code = GASTROINTESTINAL MANAGEMENT; RN TO ASSESS AND TEACH, AGRICULTURE INTERN/HOSPITALITY JOB TITLES TO OBSERVE AND TEACH RELATED TO ALTERED GASTROINTESTINAL STATUS TO MINIMIZE COMPLICATIONS AND REDUCE HOSPITALIZATION.] Future Scheduled Test RN TO ASSE SS AND TEACH, AGRICULTURE INTERN/HOSPITALITY JOB TITLES TO OBSERVE AND TEACH AND PROVIDE EDUCATION ON GI BLEEDING. [code = RN TO ASSESS AND TEACH, AGRICULTURE INTERN/HOSPITALITY JOB TITLES TO OBSERVE AND TEACH AND PROVIDE EDUCATION ON GI BLEEDING.] Future Scheduled Test FALL REDUC TION MANAGEMENT; RN TO ASSESS AND OBSERVE, HOSPITALITY JOB TITLES/AGRICULTURE INTERN TO OBSERVE FALL RISK FACTORS AND EDUCATE PATIENT/CAREGIVER ON STRATEGIES TO MINIMIZE THE RISK OF FALLING. [code = FALL REDUCTION MANAGEMENT; RN TO ASSESS AND OBSERVE, HOSPITALITY JOB TITLES/AGRICULTURE INTERN TO OBSERVE FALL RISK FACTORS AND EDUCATE PATIENT/CAREGIVER ON STRATEGIES TO MINIMIZE THE RISK OF FALLING.] Future Scheduled Test ANEMIA MAN AGEMENT; RN TO ASSESS AND TEACH, AGRICULTURE INTERN/HOSPITALITY JOB TITLES TO OBSERVE AND TEACH AND PROVIDE EDUCATION ON ANEMIA. [code = ANEMIA MANAGEMENT; RN TO ASSESS AND TEACH, AGRICULTURE INTERN/HOSPITALITY JOB TITLES TO OBSERVE AND TEACH AND PROVIDE EDUCATION ON ANEMIA.] Future Scheduled Test PNEUMONIA MANAGEMENT; RN TO ASSESS AND TEACH, HOSPITALITY JOB TITLES/AGRICULTURE INTERN TO OBSERVE AND TEACH SIGNS OF PNEUMONIA EXACERBATION AND PROVIDE EARLY INTERVENTIONS TO MINIMIZE RISK OF HOSPITALIZATION. [code = PNEUMONIA MANAGEMENT; RN TO ASSESS AND TEACH, HOSPITALITY JOB TITLES/AGRICULTURE INTERN TO OBSERVE AND TEACH SIGNS OF PNEUMONIA EXACERBATION AND PROVIDE EARLY INTERVENTIONS TO MINIMIZE RISK OF HOSPITALIZATION.] Future Scheduled Test PHYSICAL T HERAPY EVALUATION PERFORMED. NO ADDITIONAL VISITS REQUIRED. PROVIDED SKILLED INTERVENTION INCLUDING HEP [code = PHYSICAL THERAPY EVALUATION PERFORMED. NO ADDITIONAL VISITS REQUIRED. PROVIDED SKILLED INTERVENTION INCLUDING HEP] Goal 2025-09-08 Patient Goal - TO FEEL STRON JACOBO Goal Provider Goal - A PLAN OF CARE WILL BE ESTABLISHED THAT MEETS THE PATIENT S NEEDS. PATIENT WILL DEMONSTRATE OXYGEN SATURATION WITHIN NORMAL LIMITS OR PATIENT S OPTIMAL LEVEL ESTABLISHED BY THE PHYSICIAN THROUGHOUT CARE. CHANGES TO CO-MORBID CONDITIONS AND ANY NEW CONDITIONS WILL BE IDENTIFIED AND REPORTED TO THE PHYSICIAN. Goal Provider Goal - PATIENT/CAREGIVER WILL VERBALIZE UNDERSTANDING OF SIGNS AND SYMPTOMS THAT PUT THE PATIENT AT RISK FOR HOSPITALIZATION /EMERGENCY ROOM VISITS, WHEN TO NOTIFY NURSE/PHYSICIAN OF COMPLICATIONS/DECLINE AND WHEN TO CALL 911. Goal Provider Goal - PATIENT / CAREGIVER WILL VERBALIZE/DEMONSTRATE UNDERSTANDING OF MEASURES TO MANAGE ALTERED CARDIOVASCULAR STATUS BY 60 DAYS Goal Provider Goal - PATIENT / CAREGIVER WILL VERBALIZE/DEMONSTRATE AN ABILITY TO ADHERE TO SELF-MANAGEMENT OF HF TO MINIMIZE COMPLICATIONS AND AVOID HOSPITALIZATION BY END OF EPISODE. Goal Provider Goal - PATIENT/CAREGIVER WILL VERBALIZE/DEMONSTRATE ABILITY TO ADHERE TO SELF-MANAGEMENT OF HYPOTENSION TO MINIMIZE COMPLICATIONS AND AVOID HOSPITALIZATION BY THE END OF EPISODE. Goal Provider Goal - PATIENT / CAREGIVER WILL VERBALIZE/DEMONSTRATE AN ABILITY TO ADHERE TO SELF-MANAGEMENT OF HEART ARRHYTHMIA TO MINIMIZE COMPLICATIONS AND AVOID HOSPITALIZATION BY END OF EPISODE. Goal Provider Goal - PATIENT / CAREGIVER WILL VERBALIZE/DEMONSTRATE UNDERSTANDING OF MEASURES TO MANAGE ALTERED NEUROLOGICAL STATUS BY 60 DAYS Goal Provider Goal - PATIENT/CAREGIVER WILL VERBALIZE UNDERSTANDING OF CARE AND MANAGEMENT OF SEIZURE DISORDER BY 60 DAYS Goal Provider Goal - PATIENT / CAREGIVER WILL VERBALIZE / DEMONSTRATE AN ABILITY TO ADHERE TO SELF-MANAGEMENT OF DIABETES MANAGEMENT BY 60 DAYS Goal Provider Goal - PATIENT / CAREGIVER WILL VERBALIZE/DEMONSTRATE UNDERSTANDING OF MEASURES TO MANAGE ALTERED GENITOURINARY STATUS BY END OF EPISODE. Goal Provider Goal - PATIENT / CAREGIVER WILL VERBALIZE/DEMONSTRATE UNDERSTANDING OF MEASURES TO MANAGE ALTERED GASTROINTESTINAL STATUS BY END OF EPISODE. Goal Provider Goal - PATIENT/CAREGIVER WILL VERBALIZE/DEMONSTRATE UNDERSTANDING OF MEASURES TO MINIMIZE COMPLICATIONS AND REDUCE HOSPITALIZATION RELATED TO GI BLEEDING BY END OF EPISODE 60 DAYS Goal Provider Goal - PATIENT/CAREGIVER WILL VERBALIZE/DEMONSTRATE UNDERSTANDING OF FALL RISK FACTORS AND IMPLEMENT STRATEGIES TO MINIMIZE FALL RISK. PATIENT/CAREGIVER WILL VERBALIZE/DEMONSTRATE AN ABILITY TO ADHERE TO FALL REDUCTION SELF-MANAGEMENT AND LIFE-STYLE CHANGES BY 60 DAYS Goal Provider Goal - PATIENT/CAREGIVER WILL DEMONSTRATE UNDERSTANDING OF ANEMIA MANAGEMENT EVIDENCED BY SYMPTOM CONTROL BY EOE Goal Provider Goal - SIGNS OF PNEUMONIA EXACERBATION WILL BE IDENTIFIED PROMPTLY AND INTERVENTIONS INITIATED TO AVOID HOSPITALIZATION. Goal Provider Goal - PATIENT / CAREGIVER WITHIN 1 VISIT WILL BE ABLE TO VERBALIZE / DEMONSTRATE UNDERSTANDING OF HEP Reason for Visit INDEPENDENT IN THE COMMUNITY Encounters Start Date/Time End Date/Time Encounter Type Admission Type [facility] Encounter ID Discharge Date Discharge Status Discharge Condition Discharge Reason Percent Goals Met 2025-08-18 00:00:00 2025-09-08 00:00:00 Outpatient JENNYFER MOELLER [facility] [id number] 2025-09-08 00:00:00 DISCHARGE TO HOME OR SELF CARE INDEPENDEN T IN THE COMMUNITY HH - NO LONGER REQUIRES SKILLED CARE 100.00
--- OUTSIDE RECORDS SUMMARY | 2025-09-16 13:30 | XMS_ITS | Encounter Summary ---
Author Organization [facility] Address [address] [place] [address] Care Team Providers Care Manager Corporate Name Role Phone Uli Salcedo Unavailable [phone] Rad Galvan MD Primary Care Provider [phone] Reason for Referral * Imaging (Routine) - Closed Specialty Diagnoses / Procedures Referred By Contac t Referred To Contact Cardiology Diagnoses Chronic combined systolic and diastolic congestive heart failure Procedures Echo, Adult Transthoracic Complete Elvin Schuler MD [address] [place] [address] Phone: tel: fax: Referral ID Status Reason Start Date Expiration Date V isits Requested Visits Authorized [id number] Closed Perform Procedure 07/27/2025 01/26/2027 1 1 Reason for Visit * Imaging (Routine) - Closed Specialty Diagnoses / Procedures Referred By Contac t Referred To Contact Cardiology Diagnoses Chronic combined systolic and diastolic congestive heart failure Procedures Echo, Adult Transthoracic Complete Elvin Schuler MD [address] [place] [address] Phone: tel: fax: Referral ID Status Reason Start Date Expiration Date V isits Requested Visits Authorized [id number] Closed Perform Procedure 07/27/2025 01/26/2027 1 1 Encounter Details Date Type Department Care Team (Latest Contact Info) Description 09/16/2025 2:30 PM EDT - 09/16/2025 11:59 PM EDT Hospital Encounter Cardiac Imaging [address] [place] [address] Chronic combined systolic and diastolic congestive heart [...] [address], [address] [place] [address] Azael Mooney MD [address] [place] [address] 01/13/2026 9:30 AM EST Office Visit [facility] [address] [place] [address] Elvin Schuler MD [address] [place] [address] documented as of this encounter [...] is no recent study available for direct [id number] comparison. Left Ventricle Based on the linear [...] is no recent study available for direct [id number]-[id number] comparison. us Elvin Schuler MD CV ECHO [...] as of this encounter Care Teams Manager Corporate Relationship Specialty Start Date End Date Rad Galvan MD [address] [place] [address] PCP - General 04/08/25 Uli Salcedo PA [address] [place] [address] Referring Physician 02/03/25 documented as of this encounter
--- OUTSIDE RECORDS SUMMARY | 2025-09-16 15:00 | XMS_ITS | Encounter Summary ---
Author Organization [facility] Address [address] [place] [address] Care Team Providers Care Porcelain Enamel Laborer Name Role Phone Uli Salcedo Unavailable [phone] Rad Galvan MD Primary Care Provider [phone] Reason for Referral * Consultation (Routine) - Authorized Specialty Diagnoses / Procedures Referred By Contac t Referred To Contact Diagnoses Chronic combined systolic and diastolic congestive heart failure Elvin Schuler MD [address] [place] [address] Phone: tel: fax: Referral ID Status Reason Start Date Expiration Date V isits Requested Visits Authorized [id number] Authorized 09/16/2025 03/18/2027 1 1 Encounter Details Date Type Department Care Team (Late st Contact Info) Description 09/16/2025 4:00 PM EDT Office Visit [facility] [address] [facility] [place] [id number] Elvin Schuler MD [address] [place] [address] Chronic combined systolic and diastolic congestive heart failure (Primary Dx) Social History Tobacco Use Types [...] Sign Reading Time Taken Comments Blood Pressure 122/78 09/16/2025 3:43 PM EDT Pulse 77 09/16/2025 3:43 PM EDT Temperature - - Respiratory Rate 16 09/16/2025 3:43 PM EDT Oxygen Saturation 95% 09/16/2025 3:43 PM EDT Inhaled Oxygen Concentration - - Weight 89.1 kg (196 lb 6.9 oz) 09/16/2025 3:43 P M EDT Height 154.9 cm (5' 1 ) 09/16/2025 3:43 PM EDT Body Mass Index 37.12 09/16/2025 3:43 PM EDT documented in this encounter Miscellaneous Notes * Patient Instructions - Chika Orellana APRN - 09/16/2025 4:00 PM EDT Hold Farxiga 3 days prior to colonoscopy. * Progress Notes - Chika Orellana APRN - 09/16/2025 4:00 PM EDT Advanced Heart Failure Follow Up Sara Edwards is a 70 y.o. female who presents today for systolic heart failure History of Present Illness The patient is a female who presents for evaluation of chronic longstanding systolic heart failure,status post ROTOR CASTING MACHINE OPERATOR-D in 2019 and Impulse CCM device in September 2022. She experienced a syncopal episode, which was preceded by dizziness and nausea, necessitating her to crawl to the couch. She lost consciousness upon reaching the couch, with the incident occurring around 5:00 PM. She regained consciousness on the floor at approximately 5:45 PM and again on the couch at 6:45 PM. She contacted the hospital and was advised by the on-call nurse to seek immediate medical attention. She was subsequently transported to the hospital. She has had one consultation with Dr. Cortes regarding her device, but no further monitoring has been reported. She did not experienceany arrhythmia or shock from her device. She occasionally uses support hose during the day but not at night. Her condition improves with activity, and she is able to walk without assistance. She was hospitalized for seven days last month due to pneumonia and fluid overload. She was discharged on a Friday,attended [facility] on Friday, and traveled to [place] on Friday. She was able to ambulate well during these activities. She did not receive any intravenous fluids during her hospital stay, but her blood pressure was monitored in the emergency room. She was not informed of any electrolyte imbalances. She experiences leg stiffness and charley horses at night, which she attributes to an unknown cause. She does not take magnesium supplements but does take a multivitamin. She maintains adequate hydration, consuming more than 2 quarts of water daily. She consumes three bowls of ice before bedtime, but her iron levels are normal. She continues to take Ozempic injections every other Friday, despite experiencing nausea. She reports that her blood sugar levels are stable in the morning but elevate during the day. She occasionally experiences dizziness upon standing, particularly when waking up at night to use the bathroom. She has furniture in place to prevent falls. She takes additional fluid pills if she gains 2 to 3 pounds. She reports no shortness of breath when lying down. Her sleep quality varies, and she occasionally naps during the day, although less frequently than before. She has not had any recent adjustments to her device since the last tune-up. She is scheduled for a colonoscopy on 09/21/2025 due to unexplained bleeding. PAST SURGICAL HISTORY: Status post ROTOR CASTING MACHINE OPERATOR-D in 2019 and Impulse CCM device in September 2022. SOCIAL HISTORY Exercise: Walks and uses a cane; sometimes uses a walker with a seat. Review of symptoms Constitutional: Negative for decreased appetite and weight gain. Cardiovascular: Negative for chest pain, dyspnea on exertion, leg swelling, near-syncope, orthopnea, palpitations, paroxysmal nocturnal dyspnea and syncope. Respiratory: Negative for cough, shortness of breath and sleep disturbances due to breathing. Gastrointestinal: Negative for bloating. 14 Point ROS reviewed and is otherwise negative except as per HPI. Past Medical History Past Medical History[1] Surgical History Surgical History[2] Family History family history includes Cardiac disorder in an other family member; Diabetes in an other family member; Hypertension in an other family member. Social History reports that she has quit smoking. She has never been exposed to tobacco smoke. She has never used smokeless tobacco. She reports that she does not currently use alcohol. She reports that she does not use drugs. Medications Current Medications[3] Physical Exam Constitutional General Appearance: Not in acute distress, appears well nourished Eyes Conjunctiva and lids: No erythema, swelling or discharge Ears, Nose, Mouth, and Throat Examination of the oral mucosa: Moist and without pallor , anicteric Neck Examination of Jugular veins: No JVD Pulmonary Respiratory effort: No increased work of breathing or signs of respiratory distress Auscultation of lungs: clear Cardiovascular Auscultation of heart: RRR, normal S1S2, no murmur, gallops, or rub Examination of extremities for edema: no edema Abdomen Examination of Abdomen: no hepatomegaly, normal bowel sounds Musculoskeletal Inspection/palpation of digits and nails: Normal without clubbing or cyanosis Skin Inspection of Skin and Subcutaneous Tissue: no rash/cyanosis Psychiatric Orientation to person, place, and time: Normal Visit Vitals BP 122/78 Pulse 77 Ht 1.549 m (5' 1 ) Wt 89.1 kg (196 lb 6.9 oz) SpO2 95% BMI 37.12 kg/m?? Cardiac Testing Imaging Echo, Adult Transthoracic Complete Result Date: 09/16/2025 Left Ventricle: The left ventricular systolic function [...] is no recent study available for direct [id number] comparison. Labs Lab Results Component Value Date HGB 10.1 (L) 08/22/2025 HCT 31.6 (L) 08/22/2025 PLT 208 08/22/2025 ALT 19 07/08/2025 AST 40 (H) 07/08/2025 NA 136 08/22/2025 K 4.6 08/22/2025 CREATININE 1.55 (H) 08/22/2025 BUN 32 (H) 08/22/2025 CO2 30 (H) 08/22/2025 HGBA1C 7.2 (A) 08/01/2025 Assessment & Plan 1. CHronic systolic HF: HFrEF, compensated on exam, NYHA III Bumex daily and additional dose as recommended based on her PAD She is status post ROTOR CASTING MACHINE OPERATOR-D in 2019 and Impulse CCM device in September 2022. An echocardiogram in December 2024 showed an EF of 30% with moderate MR, and today's echocardiogram results: LVEF 40-55%, diastolic unable to assess due to arrhythmia, mod TR -CardioMEMS was implanted to assist with volume management, and her most recent PAD readings have been 17, ranging from 16 to 18 over the past week. Dr. Schuler discussed that her main symptoms are due to right-sided dysfunction. The current heart failure medication regimen will be maintained, and advanced therapies are not needed at this time. Volume control will be continued to assist with the functioning of the right heart and to keep int racardiac pressures controlled. -No medication changes were made today. Continue with guideline-directed medical therapy of Fklkkxn27 mg daily, metoprolol succinate 25 mg daily, spironolactone 25 mg daily, and Diovan 40 mg twice daily. - 2. Chronic persistent Afib - rate controlled , anticoagulated with Xarelto, - followed by Dr Barraza at [facility] -Monitor for s/sx of bleeding including epistaxis, hematuria, unusual bruising, hemoptysis, hematochezia. Monitor for s/sx of stroke including impaired speech, unilateral paralysis, blurry vision. Report any concerns to the office if any of the above occur. Orthostasis: Advised to wear support hose during the day to improve blood circulation and prevent pooling. - Recommended pre-activity foot exercises to enhance blood flow before standing up. - Cautioned about potential dizziness during colonoscopy preparation due to fluid shifts and advised to stand up slowly from a seated position. She is planning to have a colonoscopy and does not need any further cardiac testing prior. Hold farxiga 3 days prior to test. A total time of 30 minutes was spent addressing the current illness, reviewing records (prior imaging, lab work, etc), discussing results and formulating a plan. This time includes face to face with patient, counseling and discussion and/or coordination of care, discussing management options and counseling patient on the risks and benefits of various therapeutic approaches, and completing documentation for this clinical encounter.The patient is agreeable to the plan and all pertinent questions were answered. This patient was seen, reviewed and plan formulated in conjunction with Dr Schuler. Meds have been reviewed and refills provided as needed. The patient/family have been given the numbers to contact for questions, concerns, or change in symptoms. Follow UP 4 months Verbal consent was obtained to use ambient listening technology to assist in the documentation of the encounter: yes Chika Orellana APRN [facility] [1] Past Medical History: Diagnosis Date CHF (congestive heart failure) Chronic kidney disease 2019 Diabetes mellitus 2018 GERD (gastroesophageal reflux disease) Hyperlipemia Hypertension 1984 Hyperuricemia Personal history of other diseases of the digestive system History of hiatal hernia Restless leg syndrome Seizures (CMS/HCC) Unspecified convulsions (CMS/HCC) Seizures [2] Past Surgical History: Procedure Laterality Date APPENDECTOMY N/A Appendectomy from [facility] GALLBLADDER SURGERY N/A Anastomosis Of Gallbladder from [facility] INSERT / REPLACE / REMOVE PACEMAKER 2019 TONSILLECTOMY N/A Tonsillectomy from [facility] [3] Current Outpatient Medications Medication Sig Dispense [...] BY MOUTH EVERY DAY MAY CAUSE DROWSINESS (Patient taking differently: 300mg 3 times a day.) HumuLIN 70/30 (70-30) 100 UNIT/ML injection vial [...] if needed (Patient not taking: Reported on 09/16/2025) 90 tablet 6 Ozempic, 2 MG/DOSE, 8 MG/3ML solution pen-injector INJECT 2 MG SUBCUTANEOUSLY ONCE A WEEK DIRECTED (Patient not taking: Reported on 08/22/2025) No current facility-administered medications for this visit. documented in this encounter Plan of Treatment Upcoming Encounters Date Type Department Care Team (Late st Contact Info) Description 10/17/2025 11:40 AM EST Office Visit [facility] Nephrology, Bone & Mineral Metabolism [address], [address] [place] [address] Azael Mooney MD [address] [place] [address] 01/13/2026 9:30 AM EST Office Visit [facility] [address] [facility] [place] [address] Elvin Schuler MD [address] [place] [address] Scheduled Referrals Name Type Priority Associated Diagnoses Order Schedule Follow Up Cardiology Outpatient Referral Routine Chronic combined systolic and diastolic congestive heart failure Expected: 01/13/2026, Expires: 03/17/2027 documented as of this encounter Visit Diagnoses Diagnosis Chronic combined systolic and diastolic congestive heart failure- Primary documented in this encounter Additional Health Concerns Assessment Noted Time PHQ-9 Depression Total Score: 10 0815/2 025 1:50 PM EDT A fall risk assessment has been complete d for the patient 09/16/2025 3:49 PM EDT A Body Mass Index follow-up plan has been documented for the patient 09/16/2025 4:37 PM EDT documented as of this encounter Care Teams Porcelain Enamel Laborer Relationship Specialty Start Date End Date Rad Galvan MD [address] [place] [address] PCP - General 04/08/25 Uli Salcedo PA [address] [place] [address] Referring Physician 02/03/25 documented as of this encounter
--- OUTSIDE RECORDS SUMMARY | 2025-09-19 11:00 | XMS_ITS | Encounter Summary ---
Author Organization [facility] Address [address] [id number] Care Team Providers Care Director Insurance Name Role Phone Rad Galvan MD Primary Care Provider + Reason for Visit * Reason Comments [facility] ER / syncope Encounter Details Date Type Department Care Team (Late st Contact Info) Description 09/19/2025 12:00 PM EDT Office Visit [facility] [address] [place] [address] Rad Galvan MD [address] [place] [address] Orthostatic syncope (Primary Dx); Chronic [...] PM EDT Chief Complaint Patient presents with [facility] ER / syncope Subjective Sara Edwards [...] Aug 2025, Cardiology studies Echocardiogram 09/16/25, and Car Inspector notes Cardiology 09/16/25 Assessment and Plan Diagnoses and all orders for this visit: 1. Orthostatic syncope (Primary) 2. Chronic HFrEF (heart failure with reduced ejection fraction) 3. Need for immunization against influenza - Fluzone High-Dose 65+yrs ([id number]) Plan: Blood pressure is under very good [...] [place] [address] Rad Galvan MD [facility] [place] [address] documented as of this encounter Visit Diagnoses Diagnosis Orthostatic syncope- Primary Chronic HFrEF (heart failure with reduced ejection fraction) Need for immunization against influenza Need for prophylactic vaccination and inoculation against influenza documented in this encounter Additional Health Concerns Assessment Noted Time PHQ-2 Depression Total Score: 1 02/17/20 24 10:24 AM EDT documented as of this encounter Care Teams Director Insurance Relationship Specialty Start Date End Date Rad Galvan MD [address] [place] [address] PCP - General Family Medicine 04/15/22 documented as of this encounter
--- OUTSIDE RECORDS SUMMARY | 2025-09-23 11:00 | XMS_ITS | Encounter Summary ---
Author Organization [facility] Address [address] [place] [address] Care Team Providers Care Spring Crater Name Role Phone Uli Salcedo Unavailable [phone] Rad Galvan MD Primary Care Provider [phone] Encounter Details Date Type Department Care Team (Latest Contact Info) Description 09/23/2025 12:00 PM EDT Ancillary Procedure [facility] [place] [address] [place] [address] Chronic combined systolic and diastolic congestive heart [...] Description 10/17/2025 11:40 AM EST Office Visit [facility] Nephrology, Bone & Mineral Metabolism [address] [place] [address] Azael Mooney MD [address] [place] [address] 01/13/2026 9:30 AM EST Office Visit [facility] [place] [address] [place] [address] Elvin Schuler MD [address] [place] [address] documented as of this encounter [...] documented as of this encounter Care Teams Spring Crater Relationship Specialty Start Date End Date Rad Galvan MD [address] [place] [address] PCP - General 04/08/25 Uli Salcedo PA [address] [place] [address] Referring Physician 02/03/25 documented as of this encounter
--- OUTSIDE RECORDS SUMMARY | 2025-10-06 09:57 | XMS_ITS | Encounter Summary ---
Author Organization [facility] Address [address] [place] [address] Care Team Providers Care Glove Turner And Former Name Role Phone Rad Galvan MD Primary Care Provider + Encounter Details Date Type Department Care Team (Late st Contact Info) Description 08/15/2025 External PBMM Data [facility] [address] [place] [address] [place] [address] Pharmacy, Payor Data Social History Tobacco Use [...] [facility] [address] [place] [address] Rad Galvan MD [address] [place] [address] documented as of this encounter Visit Diagnoses Not on filedocumented in this encounter Additional Health Concerns Assessment Noted Time PHQ-2 Depression Total Score: 1 02/17/20 24 10:24 AM EDT documented as of this encounter Care Teams Glove Turner And Former Relationship Specialty Start Date End Date Rad Galvan MD [address] [place] [address] PCP - General Family Medicine 04/15/22 documented as of this encounter
--- OUTSIDE RECORDS SUMMARY | 2025-10-06 09:57 | XMS_ITS | Clinical Summary ---
Author Organization [facility] Address [address] [place] [address] Care Team Providers Care Douper Name Role Phone Uli Salcedo Unavailable [phone] Rad Galvan MD Primary Care Provider [phone] Allergies Active Allergy Reactions Criticality Noted Date Comments Empagliflozin Itching Medium 01/21/2025 Metoclopramide Rash,Other - please document in the comment field Low 04/15/2022 Promethazine Unknown - Patient st ates they do not know rxn details Low 11/26/2020 Methylphenidate Itching Medium 02/18/2025 Medications allopurinol (Zyloprim) 100 MG tablet Take 1 tablet by mouth daily. Active atorvastatin (Lipitor) 10 MG tablet Take 1 tablet by mouth daily. 025 Active Farxiga 10 MG tablet Take 1 tablet by mouth daily. Active digoxin (Lanoxin) 125 MCG tablet Take 1 tablet by mouth daily. Active DULoxetine (Cymbalta) [address] capsule Take 1 capsule by mouth 1 time each day. 025 Active fluticasone (Flonase) 50 MCG/ACT nasal spray INSTILL 2 SPRAYS INTO EACH NOSTRIL DAILY DIRECTED BY PROVIDER 024 Active gabapentin (Neurontin) 600 MG tablet TAKE ONE TABLET BY MOUTH EVERY DAY MAY CAUSE DROWSINESS Active NovoLOG FLEXPEN 100 UNIT/ML injection pen Inject 8 Units under the skin. Active HumuLIN 70/30 (70-30) 100 UNIT/ML injection vial As of 03/30/25 35 units in the AM and 30 units in the PM Active isosorbide mononitrate ER (Imdur) 30 MG 24 hr tablet Take 1 tablet by mouth daily. Active loratadine (Claritin) 10 MG tablet Take 1 tablet by mouth daily. Active metoprolol succinate XL (Toprol-XL) 25 MG 24 hr tablet Take 1 tablet by mouth daily. Active pantoprazole (Protonix) 40 MG EC tablet Take 1 tablet by mouth 2 times a day. Active PHENobarbital (Luminal) 32.4 MG tablet take three tablets by mouth every night at bedtime Active rOPINIRole (Requip) 2 MG tablet Take 1 tablet by mouth nightly. Active Ozempic, 2 MG/DOSE, 8 MG/3ML solution pen-injector INJECT 2 MG SUBCUTANEOUSLY ONCE A WEEK DIRECTED Active spironolactone (Aldactone) 25 MG tablet Take 1 tablet by mouth daily. Active traMADol (Ultram) 50 MG tablet TAKE ONE TABLET BY MOUTH EVERY 6 HOURS NEEDED FOR MODERATE TO SEVERE PAIN Active valsartan (Diovan) 40 MG tablet Take 1 tablet by mouth 2 times a day. Active nitroglycerin (Nitrostat) 0.[address] 1 tablet under the tongue every 5 minutes as needed for chest pain. Active aspirin 81 MG chewable tablet Chew 1 tablet daily. 30 tablet 2 Active metOLazone (Zaroxolyn) 5 MG tablet Take 1 tablet by mouth every other day. Active bumetanide (Bumex) 1 MG tablet Take 2 tablets by mouth daily. Can take additional doses if needed 90 tablet 6 Active Additional Information Patient not taking.Reported on 09/16/2025 Ozempic, 0.25 or 0.5 MG/DOSE, 2 MG/3ML solution pen-injector inject 0.5 mg subcutaneously once weekly Active Xarelto 15 MG tablet Take 1 tablet by mouth 1 time each day with dinner. Active bumetanide (Bumex) 2 MG tablet Take 1 tablet by mouth 2 times a day. Active prednisoLONE acetate (Pred-Forte) 1 % ophthalmic suspension 1 drop 4 times a day. Active potassium chloride CR (K-Tab) 20 MEQ ER tablet Take 1 tablet by mouth 2 times a day. Active potassium chloride CR (Klor-Con M20) 20 MEQ ER tablet Take 1 tablet by mouth twice a day. 2024 Discontinued Xarelto 20 MG tablet TAKE ONE TABLET BY MOUTH EVERY DAY FOR BLOOD THINNER 2024 Discontinued Active Problems Problem Noted Date Diagnosed Date Obesity (BMI 35.0-39.9 without comorbidity) 06/24 Congestive heart failure 02/18/2025 Encounters Date Type Department Care Team Description 10/05/2025 Telephone [facility] [address] [phone] Elvin Schuler MD HCN - Patient Message 10/05/[address] [address] Yaritza Johnson RN 10/03/2025 Travel 10/03/2025 Orders Only [facility] [address] [phone] Linda Garcia RN Chronic combined systolic and diastolic congestive heart failure (Primary Dx) 09/23/2025 12:00 PM EDT Ancillary Procedure [facility] [address] [phone] Chronic combined systolic and diastolic congestive heart failure 09/16/2025 4:00 PM EDT Office Visit [facility] [address] [phone] Elvin Schuler MD Chronic combined systolic and diastolic congestive heart failure (Primary Dx) 09/16/2025 2:30 PM EDT - 09/16/2025 11:59 PM EDT Hospital Encounter Cardiac Imaging [address] [place] [phone] Chronic combined systolic and diastolic congestive heart failure Discharge Disposition: Home or Self Care 09/16/2025 Travel 09/15/2025 Telephone [facility] [address] [place] [phone] Elvin Schuler MD 09/09/2025 Travel 08/22/2025 2:00 PM EDT Office Visit [facility] Nephrology, Bone & Mineral Metabolism [address], [address] [place] [address] Thi skelton, Lenore Haider MD Obesity (BMI 35.0-39.9 without comorbidity) (Primary Dx); Chronic systolic congestive heart failure (CMS/HCC); Stage 3b chronic kidney disease (CMS/HCC) 08/22/2025 Travel 08/15/2025 11:00 AM EDT Ancillary Procedure [facility] [address] [place] [phone] Chronic combined systolic and diastolic congestive heart failure (CMS/HCC) 08/15/2025 Travel 08/09/2025 Telephone [facility] [address] [place] [address] Elvin Schuler MD HCN - Patient Message 08/09/2025 Travel 08/09/2025 Orders Only [facility] [address] [place] [phone] Linda Garcia coagulating operator combined systolic and diastolic congestive heart failure (CMS/HCC) (Primary Dx) 08/04/2025 Refill [facility] [address] [place] [address] Yaritza Johnson RN 07/27/2025 8:45 AM EDT - 07/27/2025 10:00 AM EDT Surgery Cardiac Science And Operations Officer [address] [place] [address] Elvin Schuler MD Right heart catheterization [86399 (CPT )] 07/27/2025 8:02 AM EDT - 07/27/2025 10:39 AM EDT Hospital Encounter Cardiac Science And Operations Officer [address] [place] [address] Elvin Schuler MD Chronic combined systolic and diastolic congestive heart failure (CMS/HCC) Discharge Disposition: Home or Self Care 07/27/2025 Telephone [facility] [address] [place] [address] Yaritza Johnson RN 07/22/2025 Telephone [facility] [address], [address] [place] [address] Chika Orellana APRN 07/15/2025 10:30 AM EDT Ancillary Procedure [facility] [address] [place] [address] Chronic combined systolic and diastolic congestive heart failure (CMS/HCC) 07/08/2025 1:45 PM EDT Office Visit [facility] 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 IV, or unspecified 07/08/2025 Travel from Last 3 Months Immunizations Immunization [...] Pulse 77 09/16/2025 3:43 PM EDT Temperature 36.3 C (97.4 F) 08/22/2025 2:01 PM EDT Respiratory Rate 16 09/16/2025 3:43 PM EDT Oxygen Saturation 95% 09/16/2025 3:43 PM EDT Inhaled Oxygen Concentration - - Weight 89.1 kg (196 lb 6.9 oz) 09/16/2025 3:43 P M EDT Height 154.9 cm (5' 1 ) 09/16/2025 3:43 PM EDT Body Mass Index 37.12 09/16/2025 3:43 PM EDT Plan of Treatment Upcoming Encounters Date Type Department Care Team (Late st Contact Info) Description 10/17/2025 11:40 AM EST Office Visit [facility] Bone & Mineral Metabolism [address], [address] [place] [address] Azael Mooney MD [address] [place] [phone] 01/13/2026 9:30 AM EST Office Visit [facility] [address] [place] [address] Elvin Schuler MD [address] [place] [address] Health Maintenance Due Date Last Done Comments [facility]-Bone Density Scan 1957 [facility]-Medicare Annual Wellness (AWV) 1957 [facility]-Infant/Child/Adol SDOH Screenings 1957 Diabetes: Dental Exam 1967 [facility]- SDOH Screenings 1975 [facility]-Adult SDOH Screenings 1975 [facility]-Hepatitis A Vaccines (1 of 2 - Risk 2-dose series) 1976 [facility]-DTaP,Tdap,and Td Vaccines (1 - Tdap) 01/24/1997 01/23/1997 CT Colonography 2002 Colonoscopy 2002 FIT 2002 FOBT 2002 Sigmoidoscopy 2002 [facility]-Breast Cancer Screening 2007 [facility]-Zoster Vaccines (1 of 2) 2007 [id number] Vaccine ( season) 2025 09/06/2022, 11/28/2021, 03/06/2021, Additional history exists [facility]-Diabetes: Hemoglobin A1C 10/31/202506/2025, 04/07/2025, 09/24/2024, Additional history exists FIT-DNA 02/15/2026 02/15/2023 [facility]-Colorectal Cancer Screening 02/15/2026 [facility]-Depression Screening 08/22/2026 08/22/2025, 06/24 [facility]-Hepatitis C Screening Completed 11/26/2020 [facility]-RSV Vaccine: 60+ Years or Completed 12/25/2023 [facility]-Pneumococcal Vaccine: 50+ Years Completed 02/17/2024, 09/12/2016 [facility]-Obesity Intervention Completed 025, 08/22/2025, 07/08/2025, Additional history exists [facility]-Influenza Vaccine Completed 09/19/2025 , 09/24/2024, 08/18/2023, Additional history exists HPV Vaccines Aged Out [...] combined systolic and diastolic congestive heart failure RENAL FUNCTION PANEL, PLASMA Routine 08/22/2025 3:59 [...] systolic and diastolic congestive heart failure (CMS/HCC) HEPATITIS C ANTIBODY - ED W/REFLEX TO HCV QUANT PCR Routine 11/26/2020 6:51 PM EST from Last 3 Months or Most Recently Relevant to Health Maintenance Results * ECHO, ADULT TRANSTHORACIC COMPLETE W/ [...] is no recent study available for direct vjlk-bv-lfeo comparison. Left Ventricle Based on the linear [...] is no recent study available for direct vkuf-il-xamc comparison. Elvin Schuler MD CV ECHO PROCEDURES Final Re sult * (ABNORMAL) Cystatin C (08/22/2025 3:59 PM EDT) Pathologist [facility] Cystatin C 1.8(H) 0.61 - 0.95 mg/L 08/22/2025 6:18 PM EDT [facility] Blood Venous blood specimen / Unknown Venipuncture / Unknown 08/22/2025 3:59 PM EDT 08/22/2025 3:59 PM EDT us Lenore Cobos MD LAB BLOOD OR DERABLES Final Result [facility] [address] [place] [address] * Vitamin D 25 Hydroxy (08/22/2025 3:59 PM EDT) Pathologist [facility] Vitamin D 25 Hydroxy 61.8 20.0 - 80.0 ng/mL 08/22/2025 7:20 PM EDT [facility] Blood Venous blood specimen / Unknown Venipuncture / Unknown 08/22/2025 3:59 PM EDT 08/22/2025 3:59 PM EDT Narrative [facility] - 08/22/2025 7:20 PM EDT Testing performed on [employer] Cad Detailer, standardized against NIST SRM 2972. When testing [...] MD LAB BLOOD OR DERABLES Final Result [facility] [address] [place] [address] * (ABNORMAL) CBC W/O Differential (08/22/2025 3:59 PM EDT) WBC Count 7.37 3.70 - 10.30 10*3/uL LAB HEMATOLOGY METHOD 08/22/2025 5:23 PM EDT [facility] RBC Count 2.97(L) 3.90 - 5.20 10*6/uL LAB HEMATOLOGY METHOD 08/22/2025 5:23 PM EDT [facility] HGB 10.1(L) 11.2 - 15.7 g/dL LAB HEMATOLOGY METHOD 08/22/2025 5:23 PM EDT [facility] HCT 31.6(L) 34.0 - 45.0 % LAB HEMATOLOGY METHOD 08/22/2025 5:23 PM EDT [facility] Platelet Count 208 155 - 369 10*3/uL LAB HEMATOLOGY METHOD 08/22/2025 5:23 PM EDT [facility] MCV 106(H) 79 - 98 fL LAB HEMATOLOGY METHOD 08/22/2025 5:23 PM EDT [facility] MCH 34.0(H) 26.0 - 32.0 pg LAB HEMATOLOGY METHOD 08/22/2025 5:23 PM EDT [facility] MCHC 32.0 30.7 - 35.5 g/dL LAB HEMATOLOGY METHOD 08/22/2025 5:23 PM EDT [facility] RDW 15.4(H) 11.5 - 14.5 % LAB HEMATOLOGY METHOD 08/22/2025 5:23 PM EDT [facility] MPV 10.1 8.8 - 12.5 fL LAB HEMATOLOGY METHOD 08/22/2025 5:23 PM EDT [facility] nRBC 0.0 <=0.0 per 100 WBCs LAB HEMATOLOGY METHOD 08/22/2025 5:23 PM EDT [facility] Blood Venous blood specimen / Unknown Venipuncture / Unknown 08/22/2025 3:59 PM EDT 08/22/2025 3:59 PM EDT us Lenore Cobos MD LAB BLOOD OR DERABLES Final Result Performing Organization Address City/[facility] Co de Phone Number [facility] [address] [place] [address] * (ABNORMAL) PTH Intact Total (08/22/2025 3:59 PM EDT) [facility] PTH Intact Total 242(H) 9 - 77 pg/mL 08/22/2025 6:11 PM EDT [facility] Blood Venous blood specimen / Unknown Venipuncture / Unknown 08/22/2025 3:59 PM EDT 08/22/2025 3:59 PM EDT Narrative [facility] - 08/22/2025 6:11 PM EDT Assay performed by immunoassay at the [facility]. Performed on Izquierdo Cad Detailer chemiluminescent immunoassay, tractable to the World Health Organization's first international standard for PTH from the NIBS, Code 79/500. Results obtained from different test methods or kits cannot be used interchangeably. us Lenore Cobos MD LAB BLOOD OR DERABLES Final Result Performing Organization Address City/[facility]/ZIP Co de Phone Number [facility] [address] [place] [address] * (ABNORMAL) Renal Function Panel, Plasma (08/22/2025 3:59 PM EDT) [facility] Glucose, Plasma 178(H) 74 - 99 mg/dL 08/22/2025 5:45 PM EDT [facility] BUN, Plasma 32(H) 8 - 23 mg/dL 08/22/2025 5:45 PM EDT [facility] Creatinine, Plasma 1.55(H) 0.60 - 1.10 mg/dL 08/22/2025 5:45 PM EDT [facility] BUN/Creatinine Ratio 21 08/22/2025 5:45 PM EDT [facility] Sodium, Plasma 136 136 - 145 mmol/L 08/22/2025 5:45 PM EDT [facility] Potassium, Plasma 4.6 3.6 - 4.9 mmol/L 08/22/2025 5:45 PM EDT [facility] Chloride, Plasma 92(L) 97 - 107 mmol/L 08/22/2025 5:45 PM EDT [facility] CO2, Plasma 30(H) 22 - 29 mmol/L 08/22/2025 5:45 PM EDT [facility] Anion Gap 14 6 - 16 mmol/L 08/22/2025 5:45 PM EDT [facility] Total Calcium, Plasma 9.6 8.9 - 10.2 mg/dL 08/22/2025 5:45 PM EDT [facility] Phosphorus, Plasma 3.6 2.5 - 4.5 mg/dL 08/22/2025 5:45 PM EDT [facility] Albumin, Plasma 4.1 3.5 - 5.2 g/dL 08/22/2025 5:45 PM EDT [facility] eGFRcr 36.3 mL/min/1.7 3m*2 08/22/2025 5:45 PM EDT [facility] Comment:Reported eGFRcr in m L/min/1.73m2 is based the CKD-EPI 2020 equation that does not use a race coefficient. Blood Venous blood specimen / Unknown Venipuncture / Unknown 08/22/2025 3:59 PM EDT 08/22/2025 3:59 PM EDT us Lenore Cobos MD LAB BLOOD OR DERABLES Final Result [facility] [address] [place] [address] * Albumin-creatinine ratio, urine, random (08/22/2025 3:48 PM EDT) Microalbumin, Urine <1.2 <1.9 mg/dL 08/22/2025 6:20 PM EDT [facility] Creatinine, Urine 19 mg/dL 08/22/2025 6:20 PM EDT [facility] Albumin/Creatin ine Ratio 08/22/2025 6:20 PM EDT [facility] Comment:Unable to calculate, at least one value is above or below the detection limit. Urine Urine specimen obtained by clean catch procedure / Unknown Non-blood Collection / Unknown 08/22/2025 3:48 PM EDT 08/22/2025 3:48 PM EDT us Lenore Cobos MD LAB URINE OR DERABLES Final Result Performing Organization Address City/[facility] Co de Phone Number [facility] [address] [place] [address] * Protein, Random, Urine with Creatinine (08/22/2025 3:48 PM EDT) Protein, Urine 6 mg/dL 08/22/2025 5:50 PM EDT [facility] Creatinine, Urine 19 mg/dL 08/22/2025 5:50 PM EDT [facility] Protein/Creati nine Ratio 0.3 mg/mg Creat 08/22/2025 5:50 PM EDT [facility] Urine Urine specimen obtained by clean catch procedure / Unknown Non-blood Collection / Unknown 08/22/2025 3:48 PM EDT 08/22/2025 3:48 PM EDT us Lenore Cobos MD LAB URINE OR DERABLES Final Result Performing Organization Address City/[facility] Co de Phone Number [facility] [address] [place] [address] * (ABNORMAL) Urinalysis with reflex microscopic (Culture NOT Included) (08/22/2025 3:48 PM EDT) Color, Urine Yellow LAB URINALYSIS - AUTOMATED METHOD 08/22/2025 5:22 PM EDT [facility] Clarity, Urine Clear LAB URINALYSIS - AUTOMATED METHOD 08/22/2025 5:22 PM EDT [facility] Spec [place], Urine 1.009 1.005 - 1.030 LAB URINALYSIS - AUTOMATED METHOD 08/22/2025 5:22 PM EDT [facility] pH, Urine 7.0 5.0 - 8.0 LAB URINALYSIS - AUTOMATED METHOD 08/22/2025 5:22 PM EDT [facility] Protein, Urine Negative Negative mg/dL LAB URINALYSIS - AUTOMATED METHOD 08/22/2025 5:22 PM EDT [facility] Glucose, Urine 500(A) Negative mg/dL LAB URINALYSIS - AUTOMATED METHOD 08/22/2025 5:22 PM EDT [facility] Ketones, Urine Negative Negative mg/dL LAB URINALYSIS - AUTOMATED METHOD 08/22/2025 5:22 PM EDT [facility] Blood, Urine Negative Negative LAB URINALYSIS - AUTOMATED METHOD 08/22/2025 5:22 PM EDT [facility] Bilirubin, Urine Negative Negative LAB URINALYSIS - AUTOMATED METHOD 08/22/2025 5:22 PM EDT [facility] Urobilinogen, Urine 0.2 0.2 to 1.0 mg/dL LAB URINALYSIS - AUTOMATED METHOD 08/22/2025 5:22 PM EDT [facility] Leukocytes, Urine Negative Negative LAB URINALYSIS - AUTOMATED METHOD 08/22/2025 5:22 PM EDT [facility] Nitrite, Urine Negative Negative LAB URINALYSIS - AUTOMATED METHOD 08/22/2025 5:22 PM EDT [facility] Urine Urine specimen obtained by clean catch procedure / Unknown Non-blood Collection / Unknown 08/22/2025 3:48 PM EDT 08/22/2025 3:48 PM EDT us Lenore Cobos MD LAB URINE OR DERABLES Final Result [facility] [address] [place] [id number] * RIGHT HEART CATHETERIZATION (07/27/2025 9:01 AM [...] then carried out using a 7.5F VIP Talmo-Po catheter. Pressures were recorded as the catheter [...] the patient was transferred back to the laboratory sampler holding area in good condition. Hemodynamic Data [...] % 07/27/2025 8:57 AM EDT [facility] Classifier Operator ID Jael Zhong ch 07/27/2025 8:57 AM EDT [facility] Device ID [id number] 07/27/2025 8:57 AM EDT [facility]ALTH[facility] POCT Sample Site PA 07/27/2025 8:57 AM EDT [facility] POCT Total Hemoglobin 10.4(L) 11.2 - 15.7 g/dL 07/27/2025 8:57 AM EDT [facility] Venous blood specimen / Unknown 07/27/2025 8:59 AM EDT 07/27/2025 8:57 AM EDT us Elvin Schuler MD LAB POINT OF CARE T EST DOCKED DEVICE UNSOLICITED RESULTS Final Result Performing Organization Address City/[facility]/ZIP Co de Phone Number [facility] [address] [place] [address] * (ABNORMAL) N-Terminal Probnp, Plasma (07/08/2025 3:19 PM EDT) N-Terminal, PROBNP, Plasma 1,459(H) 0 - 899 pg/mL 07/08/2025 4:28 PM EDT [facility] Blood Venous blood specimen / Unknown Venipuncture / Unknown 07/08/2025 3:19 PM EDT 07/08/2025 3:54 PM EDT us Chika Orellana APRN LAB BLOOD ORDERABLES Final Result [facility] [address] [place] [address] * (ABNORMAL) Comprehensive metabolic panel (07/08/2025 3:19 PM EDT) Glucose, Plasma 84 74 - 99 mg/dL 07/08/2025 4:28 PM EDT [facility] BUN, Plasma 52(H) 8 - 23 mg/dL 07/08/2025 4:28 PM EDT [facility] Creatinine, Plasma 1.80(H) 0.60 - 1.10 mg/dL 07/08/2025 4:28 PM EDT [facility] BUN/Creatinine Ratio 29 07/08/2025 4:28 PM EDT [facility] Sodium, Plasma 130(L) 136 - 145 mmol/L 07/08/2025 4:28 PM EDT [facility] Potassium, Plasma 3.7 3.6 - 4.9 mmol/L 07/08/2025 4:28 PM EDT [facility] Chloride, Plasma 87(L) 97 - 107 mmol/L 07/08/2025 4:28 PM EDT [facility] CO2, Plasma 28 22 - 29 mmol/L 07/08/2025 4:28 PM EDT [facility] Anion Gap 15 6 - 16 mmol/L 07/08/2025 4:28 PM EDT [facility] Total Calcium, Plasma 9.4 8.9 - 10.2 mg/dL 07/08/2025 4:28 PM EDT [facility] Total Protein 8.0(H) 6.3 - 7.9 g/dL 07/08/2025 4:28 PM EDT [facility] Albumin, Plasma 4.4 3.5 - 5.2 g/dL 07/08/2025 4:28 PM EDT [facility] AST, Plasma 40(H) 10 - 35 U/L 07/08/2025 4:28 PM EDT [facility] Comment:Hemolyzed, result ma y be falsely increased. ALT, Plasma 19 10 - 35 U/L 07/08/2025 4:28 PM EDT [facility] Alkaline Phosphatase, Plasma 202(H) 46 - 142 U/L 07/08/2025 4:28 PM EDT [facility] Total Bilirubin, Plasma 0.8 0.2 - 1.1 mg/dL 07/08/2025 4:28 PM EDT [facility] eGFRcr 30.4 mL/min/1.7 3m*2 07/08/2025 4:28 PM EDT [facility] Comment:Reported eGFRcr in m L/min/1.73m2 is based the CKD-EPI 2020 equation that does not use a race coefficient. Blood Venous blood specimen / Unknown Venipuncture / Unknown 07/08/2025 3:19 PM EDT 07/08/2025 3:54 PM EDT us Chika Orellana APRN LAB BLOOD ORDERABLES Final Result [facility] [address] [place] [address] * [place] Hepatitis C Antibody (11/26/2020 6:51 PM EST) [place] Hepatitis C Ab NEGATIVE Reference Range: Negative [facility] 11/26/2020 6:51 PM EST 11/26/2020 7:09 PM EST us Justo Morse MD LAB BLOOD ORDERABLES Final Re sult [facility]QUEST from Last 3 Months or Most Recently Relevant to Health Maintenance Insurance MEDICARE Advance Directives Documents on File Type Date Recorded Patient Hot Baller Expl anation Advance Directives and Living Will 03/30/2025 LIVING WILL DIRECTIV E * Full Code (Latest Code Status on File) Date Activated Date Inactivated Comments 07/27/2025 9:34 AM 07/27/2025 12:40 PM Question Answer Comments Patient has decision-making capacity? Yes Healthcare Agents on File Name Relationship Healthcare Agent Relationshi p Communication Yennifer Edwards Daughter Next of Kin Care Teams Douper Relationship Specialty Start Date End Date Rad Galvan MD [address] [place] [phone] PCP - General 04/08/25 Uli Salcedo PA [address] [place] [id number] Referring Physician 02/03/25
--- OUTSIDE RECORDS SUMMARY | 2025-10-06 09:57 | XMS_ITS | Encounter Summary ---
Author Organization [facility] Address [address] [place] [address] Care Team Providers Care Rn Imcu Name Role Phone Rad Glavan MD Primary Care Provider + Reason for Visit * Reason Onset Date Comments prescription clarification 08/31/2025 Pheno tavo Encounter Details Date Type Department Care Team (Late st Contact Info) Description 08/31/2025 Telephone [facility] [address] [place] [address] Rad Galvan MD [address] [place] [address] prescription clarification (Phenobarb) Social History [...] AM EDT Antoinette with Clinic Pharm [facility] [phone] called wanting a corrected / clarified script [...] [facility] [address] [place] [phone] Rad Galvan MD [address] [address] documented as of this encounter Visit Diagnoses Diagnosis Seizure disorder Unspecified epilepsy without mention of intractable epilepsy documented in this encounter Additional Health Concerns Assessment Noted Time PHQ-2 Depression Total Score: 1 02/17/20 24 10:24 AM EDT documented as of this encounter Care Teams Rn Imcu Relationship Specialty Start Date End Date Rad Galvan MD [address] [place] [address] PCP - General Family Medicine 04/15/22 documented as of this encounter
--- OUTSIDE RECORDS SUMMARY | 2025-10-06 09:58 | XMS_ITS | Clinical Summary ---
Author Organization [facility] Address [address] [place] [address] Care Team Providers Care Calender Supervisor Name Role Phone Rad Galvan MD Primary Care Provider + Allergies Active Allergy Reactions Criticality Noted Date Comments Empagliflozin Itching Low 01/21/2025 Methylphenidate Itching Medium 02/18/2025 Metoclopramide Rash Low 04/15/2022 Medications Bighorn-3 Fatty Acids (fish oil) 1000 MG capsule [...] tablet 11 024 Active Comfort EZ Pen [place] 32G X 6 MM misc USE DIRECTED [...] by mouth Daily. 025 Active Continuous Glucose Subscription Agent (FreeStyle Simón 3 [place]) deviceIndication s:Type 2 diabetes mellitus with hypoglycemia [...] chloride (KLOR-CON M20) 20 MEQ CR tabletIndication s:continuous churn buttermaker current use of diuretic TAKE ONE TABLET BY MOUTH TWICE DAILY 60 tablet 3 025 Active Semaglutide,0.25 or 0.5MG/DOS, (OZEMPIC) 2 MG/3ML solution pen-injectorIndi cations:Type 2 diabetes mellitus with hyperglycemia, with long-term current use of insulin Inject 0.25 mg under the skin into the appropriate area as directed 1 (One) Time Per Week. 025 Active traMADol (ULTRAM) 50 MG tabletIndication [...] BY MOUTH EVERY DAY 30 tablet 11 025 Active allopurinol (ZYLOPRIM) 100 MG tablet TAKE ONE TABLET BY MOUTH EVERY DAY 60 tablet 5 025 Active digoxin (LANOXIN) 125 MCG tabletIndication s:Longstanding persistent atrial fibrillation TAKE ONE TABLET BY MOUTH EVERY DAY 30 tablet 5 025 Active spironolactone (ALDACTONE) 25 MG tablet TAKE ONE TABLET BY MOUTH EVERY DAY 90 tablet 1 025 Active potassium chloride ER (K-TAB) 20 MEQ tablet controlled-relea se ER tabletIndication s:Hypokalemia Take 1 tablet by mouth Every 12 (Twelve) Hours. 6 tablet 5 025 Active gabapentin (NEURONTIN) 600 MG tabletIndication s:Diabetic peripheral neuropathy associated with type 2 diabetes mellitus TAKE ONE TABLET BY MOUTH TWICE DAILY MAY CAUSE DROWSINESS 60 tablet 3 025 Active DULoxetine (CYMBALTA) 30 MG capsule Take 1 capsule by mouth Daily. Active metOLazone (ZAROXOLYN) 5 MG tablet Take 1 tablet by mouth Every Other Day. Active prednisoLONE acetate (PRED FORTE) 1 % ophthalmic suspension 1 drop 4 (Four) Times a Day. Active PHENobarbital 32.4 MG tabletIndication s:Seizure disorder Take 1 tablet by mouth Every Night. 30 tablet 5 025 Active insulin NPH-insulin regular (HumuLIN 70/30) (70-30) 100 UNIT/ML injectionIndicat ions:Type 2 diabetes mellitus with hyperglycemia, with long-term current use of insulin INJECT 100 units SUBCUTANEOUSLY EVERY DAY IN THE MORNING AND INJECT 60 units EVERY EVENING 400 mL 1 025 Active insulin NPH-insulin regular (humuLIN 70/30,novoLIN 70/30) (70-30) 100 UNIT/ML injectionIndicat ions:Type 2 diabetes mellitus with hyperglycemia, with long-term current use of insulin 40 units q AM and 40 units q PM 025 2024 Discontinued Active Problems Problem Noted Date [...] & Plan (08/01/2025 11:01 AM EDT): {Diabetes (Optional):[id number]} Assessment & Plan (01/20/2025 11:47 AM EST): [...] evening. She will be referred back to [facility] podiatry for topical interventions that may [...] & Plan (08/01/2025 11:01 AM EDT): {CHF (Optional):15271} Seizure disorder 04/15/2022 Assessment & Plan (08/01/2025 11:01 AM EDT): Encounters Date Type Department Care Team Description 09/26/2025 Refill [facility] [address] [place] [address] Rad Galvan MD Type 2 diabetes mellitus with hyperglycemia, with long-term current use of insulin 09/22/2025 External PBMM Data [facility] CALL CENTER [address] [facility] [place] [address] Pharmacy, Payor Data 09/19/2025 12:00 PM EDT Office Visit [facility] [address] [place] [address] Rad Galvan MD Orthostatic syncope (Primary Dx); Chronic HFrEF (heart failure with reduced ejection fraction); Need for immunization against influenza 09/19/2025 Travel 08/31/2025 Telephone [facility] [address] [place] [address] Rad Galvan MD prescription clarification (Phenobarb) 08/25/2025 Refill [facility] [address] [place] [address] Rad Galvan MD Restless leg syndrome 08/17/2025 2:00 PM EDT Office Visit [facility] [address] [place] [address] Desi Beckford APRN Hospital discharge follow-up (Primary Dx); Stage 4 chronic kidney disease; Pneumonia of right lung due to infectious organism, unspecified part of lung; Gastrointestinal hemorrhage, unspecified gastrointestinal hemorrhage type 08/17/2025 Travel 08/15/2025 External PBMM Data [facility] CALL CENTER [address] [place] [place] [address] Pharmacy, Payor Data 08/02/2025 Telephone [facility] [address] [place] [address] Rad Galvan MD PHARMACY CALLS 08/02/2025 Documentation [facility] [address] [address] Stormy aWde PA 08/01/2025 10:15 AM EDT Office Visit [facility] [address] [place] [address] Rad Galvan MD Type 2 diabetes mellitus [...] current use of insulin 08/01/2025 Refill [facility] [address] [place] [address] Rad Galvan MD Diabetic peripheral neuropathy associated with type 2 diabetes mellitus 08/01/2025 Travel 07/29/2025 Telephone [facility] [address] [place] [address] Rad Galvan MD ORDERS 07/18/2025 Telephone [facility] [address] [place] [address] Rad Galvan MD PHARMACY CALLS 07/18/2025 Telephone [facility] [address] [facility] [place] [address] Rad Galvan MD 07/15/2025 Telephone [facility] [address] [facility] [place] [address] Rad Galvan MD CALLBACK REQUEST 07/15/2025 Telephone [facility] [address] [facility] [place] [address] Rad Galvan MD New Med Request 07/13/2025 10:53 AM EDT - 07/13/2025 11:59 PM EDT Hospital Encounter [facility] [address] [place] [address] Sidney Barraza MD Discharge Disposition: Home or Self Care 07/13/2025 9:00 AM EDT Office Visit [facility] [address] [facility] [address] [place] [phone] Sidney Barraza MD Chronic HFrEF (heart failure with reduced ejection fraction) (Primary Dx); Longstanding persistent atrial fibrillation 07/13/2025 Travel 07/07/2025 11:15 AM EDT Office Visit [facility] [address] [facility] [place] [address] Rad Galvan MD Left ventricular systolic dysfunction, chronic (Primary Dx); Viral cardiomyopathy; Nocturnal headaches; Obstructive sleep apnea 07/07/2025 Travel from Last 3 Months Immunizations Immunization Administration Dates Next Due ABRYSVO (RSV, 60+ or pregnan t women 32-36 wks) 12/25/2023 COVID-19 (MODERNA) BIVALENT 12+YRS 09/06/2022 COVID-19 (PFIZER) Purple Cap Monovalent 11/28/19,03/06/2021,02/06/2021 Flu Vaccine Quad PF >36MO 08/10/2021,07/30/2016 Fluzone (or Fluarix & Flulav al for VFC) >6mos 08/10/2021,07/30/2016 Fluzone High-Dose 65+YRS 09/19/2025,09/24/2024 Fluzone High-Dose 65+yrs 08/18/2023,09/06/2022 Hepatitis B Adult/Adolescent [...] Mass Index 35.98 09/19/2025 11:53 AM EDT Plan of Treatment Upcoming Encounters Date Type Department Care Team (Late st Contact Info) Description 10/31/2025 11:00 AM EST Office Visit [facility] [address] [place] [address] Rad Galvan MD [address] [place] [address] Health Maintenance Due Date Last Done Comments COLON CANCER SCREENING 5 YEA R SIGMOIDOSCOPY 2002 [address] COLONOGRAPHY 2002 FECAL OCCULT BLOOD TEST 2002 FIT Testing (1 year) 2002 TDAP/TD VACCINES (2 - Tdap) 01/23/2007 01/23/1997 ZOSTER VACCINE (1 of 2) 2007 DIABETIC EYE EXAM 02/13/2022 02/13/2021 DXA SCAN 02/18/2025 02/18/2023, 02/18/2023 COVID-19 Vaccine (5 - 2024-2 6 season) 2025 09/06/2022, 11/28/2021, 03/06/2021, Additional history exists URINE MICROALBUMIN-CREATININ E RATIO (uACR) 01/07/2026 01/07/2025 HEMOGLOBIN A1C 01/29/2026 08/01/2025, 04/24, 04/07/2025, Additional history exists COLOGUARD 02/15/2026 02/15/2023 DIABETIC FOOT EXAM 07/26/2026 07/26/2025, 0 05/02/2025, 03/17/2024, Additional history exists ANNUAL WELLNESS VISIT 08/01/2026 08/01/2025 , 08/01/2025, 02/17/2024, Additional history exists MAMMOGRAM 08/24/2027 08/24/2025, 11/2024, 02/18/2023, Additional history exists COLONOSCOPY 05/01/2033 05/01/2023 COLORECTAL CANCER SCREENING 05/01/2033 Hepatitis B Completed 04/11/2008, 09/24, 09/02/2007 Pneumococcal Vaccine 50+ Completed 02/17/2024, 08/25 HEPATITIS C SCREENING Completed 01/15/2025 INFLUENZA VACCINE Completed 09/19/2025, , 08/18/2023, Additional history exists Procedures Procedure Name Priority Date/Time Associated Diagnosis Comments SCANNED - LABS 09/28/2025 SCANNED EKG 09/08/2025 SCANNED - IMAGING 09/08/2025 SCANNED - IMAGING 09/08/2025 SCANNED - IMAGING 09/08/2025 SCANNED - LABS 08/30/2025 SCANNED - LABS [...] OVERNIGHT Routine 07/11/2025 Viral cardiomyopathy Nocturnal headaches POC ALBUMIN/CREATININE RATIO Routine 01/07/2025 3:18 PM EST Type 2 diabetes mellitus with hyperglycemia, with long-term current use of insulin SCANNED - DEXA 02/18/2023 SCANNED - MAMMO 02/18/2023 COLOGUARD Routine 02/15/2023 4:07 PM EDT Colon cancer screening from Last 3 Months or Most Recently Relevant to Health Maintenance Results * LABS SCANNED (09/28/2025) Only the most recent of15 resultswithin the time period is included. Rad Galvan MD LAB BLOOD ORDERABLES Fin al Result * ECG Scan (09/08/2025) Only the most recent of4 resultswithin the time period is included. Rad Galvan MD ECG ORDERABLES Final Re sult * IMAGING SCANNED (09/08/2025) Only the most recent of12 resultswithin the time period is included. Anatomical Region Laterality Modality Radiographic Gracie ging Rad Galvan MD IMG DIAGNOSTIC IMAGING O RDERABLES Final Result * (ABNORMAL) POC Glycosylated Hemoglobin (Hb A1C) (08/01/2025 10:40 AM EDT) Hemoglobin A1C 7.2(A) 4.5 - 5.7 % [facility] Lot Number [id number] [facility] Expiration Date 03/09/2027 [facility] Blood 08/01/2025 10:4 0 AM EDT Rad Galvan MD POINT OF CARE TEST ORDER RICH Final Result [facility]
[address] [place] [address], * FOOT EXAM SCANNED (07/26/2025) Rad Galvan MD CHART REVIEW TABS Fin al Result * XR chest pa and lateral (07/13/2025 11:02 AM EDT) Anatomical Region Laterality Modality Body, Chest N/A Radiographic Graice ging 07/13/2025 4:09 PM EDT Impressions 07/13/2025 4:13 PM EDT Impression: 1. Bilateral AICD with leads as above. 2. No acute cardiopulmonary process. Electronically Signed: Leonid Harris MD 07/13/2025 4:13 PM EDT Workstation ID: [id number] Narrative 07/13/2025 4:13 PM EDT XR CHEST [...] MD 07/13/2025 4:13 PM EDT Workstation ID: [id number] Result [facility] Sidney Barraza MD IMG DIAGNOSTIC IMAGING ORDER [...] atrial fibrillation and paced BPM: 77 Result [facility] Sidney Barraza MD ECG ORDERABLES Final Result * Overnight Sleep Oximetry Study (07/11/2025) Result [facility] Rad Galvan MD RESPIRATORY CARE ORDERAB LES Final Result * (ABNORMAL) Albumin/Creatinine Ratio Urine (01/07/2025 3:18 PM EST) POC ALBUMIN, URINE 30 mg/L POC CREATININE, URINE 50 mg/dL POC Urine Albumin Creatinine Ratio 30-300 <30 Comment:abnormal Lot Number [id number] Expiration Date 10/23/2025 Urine 01/07/2025 3:18 PM EST Result [facility] Rda Galvan MD POINT OF CARE TEST ORDER RICH Final Result * SCANNED - MAMMO (02/18/2023) Anatomical Region Laterality Modality Other Result [facility] Rad Galvan MD CHART REVIEW TABS Fin al Result * SCANNED - DEXA (02/18/2023) Anatomical Region Laterality Modality Other Rad Galvan MD CHART REVIEW TABS Fin al Result * (ABNORMAL) Cologuard - Stool, Per Rectum (02/15/2023 4:07 PM EDT) Cologuard Positive( A) Negative 02/25/2023 5:18 PM EDT [facility] (CLIA #:[id number]) Comment: POSITIVE TEST RESULT. A positive Cologuard [...] (Kathleen Roberts al, N Engl J Med 2014;370(14):1500-4303.) Cologuard may produce a false negative or false positive result (no colorectal cancer or precancerous polyp present at colonoscopy follow up). A negative Cologuard test result does not guarantee the absence of CRC or advanced adenoma (pre-cancer). The current Cologuard screening interval is every 3 years. ([place] [employer] Society and U.S. Multi-Society Task Force). Cologuard performance data in a 10,000 patient pivotal study using colonoscopy as the reference method can be accessed at the following location: www.ManyWho.DeepDyve/results. Additional description of the Cologuard test process, warnings and precautions can be found at www.cologOver 40 [email or web address].com. Stool specimen (specimen) Specimen from rectum / Unknown 02/15/2023 4:07 PM EDT 02/18/2023 3:05 PM EDT Rad Galvan MD BODY FLUIDS AND STOOLS O RDERABLES Final Result [facility] (CLIA #:[id number]) [address] [place] [address], from Last 3 Months or Most Recently Relevant to Health Maintenance Insurance [employer] PPO Care Teams Calender Supervisor Relationship Specialty Start Date End Date Rad Galvan MD [address] [place] [address] [place] [address] PCP - General Family Medicine 04/15/22
--- OUTSIDE RECORDS SUMMARY | 2025-10-06 09:58 | XMS_ITS ---
Author Organization [facility] Address [address] [place] [address] Care Team Providers Care Electric Sign Assembler Name Role Phone Rad Galvan MD Primary Care Provider + [facility] Status:Enrolled (Active) Start date:04/13/2025 Enrollment date:04/13/2025 Current support & services provided:Adherence- Cholesterol, Adherence- Hypertension Linked medications:Atorvastatin Calcium (Active), Valsartan (Active) Overview Atorvastatin and valsartan filled 03/26/2025 #30 day both have refills Case Team Name Relationship Phone Danielle Da Silva LPN(Responsible Staff) Licensed Mane cody Nurse Continued Care and Services Coordination
--- OUTSIDE RECORDS SUMMARY | 2025-10-06 09:58 | XMS_ITS | Encounter Summary ---
Author Organization [facility] Address [address] [id number] Care Team Providers Care Clerk Specialist Name Role Phone Rad Galvan MD Primary Care Provider + Reason for Visit * Reason Comments Med Refill Encounter Details Date Type Department Care Team (Late st Contact Info) Description 09/26/2025 Refill [facility] [address] [place] [address] Rad Galvan MD [address] [place] [address] Type 2 diabetes mellitus with hyperglycemia, with long-term current use of insulin Social [...] 10/31/2025 11:00 AM EST Office Visit [facility] [address] [place] [address] Rad Galvan MD [address] [place], [place] [id number] documented as of this encounter Visit Diagnoses Diagnosis Type 2 diabetes mellitus with hyperglycemia, with long-term current use of insulin documented in this encounter Additional Health Concerns Assessment Noted Time PHQ-2 Depression Total Score: 1 02/17/20 24 10:24 AM EDT documented as of this encounter Care Teams Clerk Specialist Relationship Specialty Start Date End Date Rad Galvan MD [address] [place] [address] PCP - General Family Medicine 04/15/22 documented as of this encounter
--- OUTSIDE RECORDS SUMMARY | 2025-10-06 09:58 | XMS_ITS | Encounter Summary ---
Author Organization [facility] Address [address] [place] [address] Care Team Providers Care Brake Repairer Bus Name Role Phone Uli Salcedo Unavailable [phone] Rad Galvan MD Primary Care Provider [...] Description 10/17/2025 11:40 AM EST Office Visit Professional [facility] [address] [facility], [address] [place] [address] Azael Mooney MD [address] [place] [address] 01/13/2026 9:30 AM EST Office Visit [facility] [address] [place] [address] Elvin Schuler MD [address] [place] [address] documented as of this encounter Visit Diagnoses [...] documented as of this encounter Care Teams Brake Repairer Bus Relationship Specialty Start Date End Date Rad Galvan MD [address] [place] [address] PCP - General 04/08/25 Uli Salcedo PA [address] [place] [address] Referring Physician 02/03/25 documented as of this encounter
--- OUTSIDE RECORDS SUMMARY | 2025-10-06 09:58 | XMS_ITS | Encounter Summary ---
Author Organization [facility] Address [address] [place] [address] Care Team Providers Care Resolution Analyst Name Role Phone Uli Salcedo Unavailable [phone] Rad Galvan MD Primary Care Provider [phone] Encounter Details Date Type Department Care Team (Late Contact Info) Description 08/09/2025 Orders Only [facility] [address] [place] [phone] Linda Garcia, RN CH-ADULT ECMO Chronic combined [...] Encounters Date Type Department Care Team (Late Contact Info) Description 10/17/2025 11:40 AM EST Office Visit [facility] [address] [facility], [address] [place] [address] Azael Mooney MD [address] [place] [address] 01/13/2026 9:30 AM EST Office Visit [facility] [address] [place] [address] Elvin Schuler MD [address] [place] [address] Scheduled Orders Name Type Priority [...] documented as of this encounter Care Teams Resolution Analyst Relationship Specialty Start Date End Date Rad Galvan MD [address] [place] [address] PCP - General 04/08/25 Uli Salcedo PA [address] [place] [address] Referring Physician 02/03/25 documented as of this encounter
--- OUTSIDE RECORDS SUMMARY | 2025-10-06 09:58 | XMS_ITS | Encounter Summary ---
Author Organization [facility] Address [address] [place] [address] Care Team Providers Care Demonstrator Knitting Name Role Phone Rad Galvan MD Primary Care Provider + Encounter Details Date Type Department Care Team (Late Contact Info) Description 09/22/2025 External PBMM Data [facility] CALL CENTER [address] [place] [phone] Pharmacy, Payor Data Social History Tobacco Use [...] Department Care Team (Late Contact Info) Description 10/31/2025 11:00 AM EST Office Visit [facility] [address] [place] [phone] Rad Galvan MD [address] [place] [address] documented as of this encounter Visit Diagnoses Not on filedocumented in this encounter Additional Health Concerns Assessment Noted Time PHQ-2 Depression Total Score: 1 02/17/20 24 10:24 AM EDT documented as of this encounter Care Teams Demonstrator Knitting Relationship Specialty Start Date End Date Rad Galvan MD [address] [place] [address] PCP - General Family Medicine 04/15/22 documented as of this encounter
--- OUTSIDE RECORDS SUMMARY | 2025-10-06 09:58 | XMS_ITS | Encounter Summary ---
Author Organization [facility] Address [address] [id number] Care Team Providers Care End Finder Forming Department Name Role Phone Rad Galvan MD Primary Care Provider + Reason for Visit * Reason Onset Date Comments Med Refill 08/25/2025 Encounter Details Date Type Department Care Team (Late st Contact Info) Description 08/25/2025 Refill [facility] [address] [place] [address] Rad Galvan MD [address] [place] [address] Restless leg syndrome Social History [...] Sara Edwards Relationship: Self Best call back number:[phone] Requested Prescriptions: Requested Prescriptions Pending Prescriptions Disp Refills rOPINIRole (REQUIP) 2 MG tablet 30 tablet 11 Sig: Take 1 tablet by mouth every night at bedtime. Pharmacy where request should be sent: [facility] [address] - [phone] - [phone] FX Last office visit with prescribing clinician: [...] Description 10/31/2025 11:00 AM EST Office Visit [facility] [address] [place] [phone] Rad Galvan MD [address] [place] [address] documented as of this encounter Visit Diagnoses Diagnosis Restless leg syndrome Restless legs syndrome (RLS) documented in this encounter Additional Health Concerns Assessment Noted Time PHQ-2 Depression Total Score: 1 02/17/20 24 10:24 AM EDT documented as of this encounter Care Teams End Finder Forming Department Relationship Specialty Start Date End Date Rad Galvan MD [address] [place] [address] PCP - General Family Medicine 04/15/22 documented as of this encounter
--- OUTSIDE RECORDS SUMMARY | 2025-10-06 09:58 | XMS_ITS | Encounter Summary ---
Author Organization [facility] Address [address] [place] [address] Care Team Providers Care Glass Inserter Name Role Phone Rad Galvan MD Primary Care Provider + Encounter Details Date Type Department Care Team (Latest Contact Info) Description 09/19/2025 Travel Social History Tobacco Use Types Packs/Day [...] Description 10/31/2025 11:00 AM EST Office Visit [facility] [address] [facility] [place] [address] Rad Galvan MD [address] [place] [address] documented as of this encounter Visit Diagnoses Not on filedocumented in this encounter Additional Health Concerns Assessment Noted Time PHQ-2 Depression Total Score: 1 02/17/20 24 10:24 AM EDT documented as of this encounter Care Teams Glass Inserter Relationship Specialty Start Date End Date Rad Galvan MD [address] [place] [address] PCP - General Family Medicine 04/15/22 documented as of this encounter
--- OUTSIDE RECORDS SUMMARY | 2025-10-06 09:58 | XMS_ITS | Encounter Summary ---
Author Organization [facility] Address [address] [place] [address] Care Team Providers Care Security Guard Supervisor Name Role Phone Uli Salcedo Unavailable [phone] Rad Galvan MD Primary Care Provider [phone] Reason for Visit * Reason Onset Date Comments HCN - Patient Message 08/09/2025 Encounter Details Date Type Department Care Team (Late st Contact Info) Description 08/09/2025 Telephone [facility] [place] [facility] [address] [facility] [place] [address] Elvin Schuler MD [address] [place] [address] HCN - Patient Message Social [...] Jerry reported she was currently admitted to [facility]. She is aware to contact me once d/c and will request d/c summary. * Telephone Encounter - Mary Ann Pugh - 08/09/2025 8:47 AM EDT Clinical Concern/Question Reason for Call: pt would like to speak to yaritza. She is currently in admitted to the hospital and would like to speak to her about her admission. Best contact number: [phone] (mobile) Optimal time of day to reach caller: ANYTIME Additional comments/information from caller: None Note: Please do not reply to this message. Follow-up communication and further actions as a result of this message need to be communicated with the patient directly, if the patient is not active onMyChart. If the patient is active on MyChart, they will receive notification of the communication/outcome via IsoPlexist. documented in this encounter Plan of Treatment Upcoming Encounters Date Type Department Care Team (Late st Contact Info) Description 10/17/2025 11:40 AM EST Office Visit [facility] [place] Nephrology, Bone & Mineral Metabolism [address] [facility], [address] [place] [address] Azael Mooney MD [address] [place] [address] 01/13/2026 9:30 AM EST Office Visit [facility] [place] [facility] [address] [facility] [place] [address] Elvin Schuler MD [address] [place] [address] documented as of this encounter Visit Diagnoses Not on filedocumented in this encounter Additional Health Concerns Assessment Noted Time PHQ-9 Depression Total Score: 10 2 025 1:50 PM EDT A fall risk assessment has been complete d for the patient 07/08/2025 1:43 PM EDT A Body Mass Index follow-up plan has been documented for the patient 07/27/2025 9:48 AM EDT documented as of this encounter Care Teams Security Guard Supervisor Relationship Specialty Start Date End Date Rad Galvan MD [address] [place] [address] PCP - General 04/08/25 Uli Salcedo PA [address] [place] [address] Referring Physician 02/03/25 documented as of this encounter
--- OUTSIDE RECORDS SUMMARY | 2025-10-06 09:58 | XMS_ITS | Encounter Summary ---
Author Organization [facility] Address [address] [place] [address] Care Team Providers Care It Generalist Name Role Phone Uli Salcedo Unavailable [phone] Rad Galvan MD Primary Care Provider [phone] Encounter Details Date Type Department Care Team [...] Description 10/17/2025 11:40 AM EST Office Visit [facility] Nephrology, Bone & Mineral Metabolism [address] [facility], [address] [place] [address] Azael Mooney MD [address] [place] [address] 01/13/2026 9:30 AM EST Office Visit [facility] [place] [facility] [address] [facility] [place] [address] Elvin Schuler MD [address] [place] [address] documented as of this encounter [...] documented as of this encounter Care Teams It Generalist Relationship Specialty Start Date End Date Rad Galvan MD [address] [place] [address] PCP - General 04/08/25 Uli Salcedo PA [address] [place] [address] Referring Physician 02/03/25 documented as of this encounter
--- OUTSIDE RECORDS SUMMARY | 2025-10-06 09:59 | XMS_ITS | Encounter Summary ---
Author Organization [facility] Address [address] [place] [address] Care Team Providers Care Paranormal Investigator Name Role Phone Uli Salcedo Unavailable [phone] Rad Galvan MD Primary Care Provider [phone] Reason for Visit * Reason Onset Date Comments HCN - Patient Message 10/05/2025 Encounter Details Date Type Department Care Team (Late st Contact Info) Description 10/05/2025 Telephone [facility] [place] [facility] [address] [facility] [place] [address] Elvin Schuler MD [address] [place] [address] HCN - Patient Message Social [...] encounter Miscellaneous Notes * Telephone Encounter - Mary Ann Pugh - 10/05/2025 11:45 AM EST Clinical Concern/Question Reason for Call: Zunilda Dhillon spoke to pt today and pt stated that she has gained 15 lbs in one week, no SOB but her BG has been getting low, per pt her BG has been down into the 60s the last few days. They request that we give pt a call. Best contact number: [phone] (mobile) Optimal time of day to reach caller: ANYTIME Additional comments/information from caller: None Note: Please do not reply to this message. Follow-up communication and further actions as a result of this message need to be communicated with the patient directly, if the patient is not active onMyChart. If the patient is active on MyChart, they will receive notification of the communication/outcome via [employer] Elementhart. documented in this encounter Plan of Treatment Upcoming Encounters Date Type Department Care Team (Late st Contact Info) Description 10/17/2025 11:40 AM EST Office Visit [facility] Nephrology, Bone & Mineral Metabolism [address] [facility], [address] [place] [address] Azael Mooney MD [address] [place] [address] 01/13/2026 9:30 AM EST Office Visit [facility] [place] [facility] [address] [facility] [place] [address] Elvin Schuler MD [address] [place] [address] documented as of this encounter Visit Diagnoses [...] documented as of this encounter Care Teams Paranormal Investigator Relationship Specialty Start Date End Date Rad Galvan MD [address] [place] [address] PCP - General 04/08/25 Uli Salcedo PA [address] [place] [address] Referring Physician 02/03/25 documented as of this encounter
--- OUTSIDE RECORDS SUMMARY | 2025-10-06 09:59 | XMS_ITS | Encounter Summary ---
Author Organization [facility] Address [address] [place] [address] Care Team Providers Care Attacher Name Role Phone Uli Salceod Unavailable [phone] Rad Galvan MD Primary Care Provider [phone] Encounter Details Date Type Department Care Team (Latest Contact Info) Description 09/16/2025 Travel Social History Tobacco Use Types Packs/Day [...] 10/17/2025 11:40 AM EST Office Visit [facility] [place] Nephrology, Bone & Mineral Metabolism [address] [facility], [address] [place] [address] Azael Mooney MD [address] [place] [address] 01/13/2026 9:30 AM EST Office Visit [facility] [place] [facility] [address] [place] [address] Elvin Schuler MD [address] [place] [address] documented as of this encounter Visit Diagnoses [...] documented as of this encounter Care Teams Attacher Relationship Specialty Start Date End Date Rad Galvan MD [address] [place] [address] PCP - General 04/08/25 Uli Salcedo PA [address] [place] [address] Referring Physician 02/03/25 documented as of this encounter
--- OUTSIDE RECORDS SUMMARY | 2025-10-06 09:59 | XMS_ITS | Encounter Summary ---
Author Organization [facility] Address [address] [place] [address] Care Team Providers Care Welder Gas Name Role Phone Uli Salcedo Unavailable [phone] Rad Galvan MD Primary Care Provider [phone] Encounter Details Date Type Department Care Team [...] 10/17/2025 11:40 AM EST Office Visit [facility] [place] Nephrology, Bone & Mineral Metabolism [address] [facility], [address] [place] [address] Azael Mooney MD [address] [place] [address] 01/13/2026 9:30 AM EST Office Visit [facility] [place] [facility] [address] [place] [address] Elvin Schuler MD [address] [place] [address] documented as of this encounter Visit Diagnoses [...] as of this encounter Care Teams Welder Gas Relationship Specialty Start Date End Date Rad Galvan MD [address] [place] [address] PCP - General 04/08/25 Uli Salcedo PA [address] [place] [address] Referring Physician 02/03/25 documented as of this encounter
--- OUTSIDE RECORDS SUMMARY | 2025-10-06 09:59 | XMS_ITS | Encounter Summary ---
Author Organization [facility] Address [address] [place] [address] Care Team Providers Care Milling Machine Operator Gear Name Role Phone Rad Galvan MD Primary [...] Description 10/31/2025 11:00 AM EST Office Visit [facility] [address] [facility] [place] [address] Rad Galvan MD [address] [place] [address] documented as of this encounter Visit Diagnoses Not on filedocumented in this encounter Additional Health Concerns Assessment Noted Time PHQ-2 Depression Total Score: 1 02/17/20 24 10:24 AM EDT documented as of this encounter Care Teams Milling Machine Operator Gear Relationship Specialty Start Date End Date Rad Galvan MD [address] [place] [address] PCP - General Family Medicine 04/15/22 documented as of this encounter
--- OUTSIDE RECORDS SUMMARY | 2025-10-06 09:59 | XMS_ITS | Encounter Summary ---
Author Organization [facility] Address [address] [place] [address] Care Team Providers Care Materials Supervisor Name Role Phone Uli Salcedo Unavailable [phone] Rad Galvan MD Primary Care Provider [phone] Encounter Details Date Type Department Care Team (Late st Contact Info) Description 09/15/2025 Telephone [facility] [place] [address] [facility] [place] [address] Elvin Schuler MD [address] [place] [address] Social History Tobacco Use Types [...] * Telephone Encounter - Mami Aviles - 09/15/2025 1:48 PM EDT Paperwork/Documentation Request Patient Name: Sara Edwards Type: Cardiac Clearance for 09/21/25 Colonoscopy at [facility] Due Date: 09/15/25 Send To: [facility] [phone] Atn: [place] contact number: [phone] Optimal time of day to reach caller: ANYTIME Additional comments/information from caller: None Note: Please do not reply to this message. Follow-up communication and further actions as a result of this message need to be communicated with the patient directly, if the patient is not active onMyChart. If the patient is active on MyChart, they will receive notification of the communication/outcome via Libra Entertainmenthart. documented in this encounter Plan of Treatment Upcoming Encounters Date Type Department Care Team ([facility] st Contact Info) Description 10/17/2025 11:40 AM EST Office Visit [facility] Nephrology, Bone & Mineral Metabolism [address] [facility], [address] [place] [address] Azael Mooney MD [address] [place] [address] 01/13/2026 9:30 AM EST Office Visit [facility] [place] [facility] [address] [facility] [place] [address] Elvin Schuler MD [address] [place] [address] documented as of this encounter [...] documented as of this encounter Care Teams Materials Supervisor Relationship Specialty Start Date End Date Rad Galvan MD [address] [place] [address] PCP - General 04/08/25 Uli Salcedo PA [address] [place] [address] Referring Physician 02/03/25 documented as of this encounter
--- OUTSIDE RECORDS SUMMARY | 2025-10-06 09:59 | XMS_ITS | Encounter Summary ---
Author Organization [facility] Address [address] [place] [address] Care Team Providers Care Journeyman Mechanic Name Role Phone Uli Salcedo Unavailable [phone] Rad Galvan MD Primary Care Provider [phone] Encounter Details Date Type Department Care Team (Latest Contact Info) Description 09/09/2025 Travel Social History Tobacco Use Types Packs/Day [...] 10/17/2025 11:40 AM EST Office Visit [facility] [place] Nephrology, Bone & Mineral Metabolism [address] [facility], [address] [place] [address] Azael Mooney MD [address] [place] [address] 01/13/2026 9:30 AM EST Office Visit [facility] [place] [facility] [address] [place] [address] Elvin Schuler MD [address] [place] [address] documented as of this encounter Visit Diagnoses [...] documented as of this encounter Care Teams Journeyman Mechanic Relationship Specialty Start Date End Date Rad Galvan MD [address] [place] [address] PCP - General 04/08/25 Uli Salcedo PA [address] [place] [address] Referring Physician 02/03/25 documented as of this encounter
--- OUTSIDE RECORDS SUMMARY | 2025-10-06 09:59 | XMS_ITS | Encounter Summary ---
Author Organization [facility] Address [address] [place] [address] Care Team Providers Care Architectural Representative Name Role Phone Uli Salcedo Unavailable [phone] Rad Galvan MD Primary Care Provider [phone] Encounter Details Date Type Department Care Team (Late Contact Info) Description 10/03/2025 Orders Only [facility] [place] [facility] [address] [place] [address] Linda Garcia, RN CH-ADULT ECMO Chronic combined [...] 10/17/2025 11:40 AM EST Office Visit [facility] Nephrology, Bone & Mineral Metabolism [address] [facility], [address] [place] [address] Azael Mooney MD [address] [place] [address] 01/13/2026 9:30 AM EST Office Visit [facility] [place] [facility] [address] [place] [address] Elvin Schuler MD [address] [place] [address] Scheduled Orders Name Type Priority Associated Diagnoses Order Schedule Cardiac Device Check - Remote Implantable Cardiac Device Routine Chronic combined systolic and diastolic congestive heart failure 1 Occurrences starting 10/03/2025 until 04/06/2027 documented as of this encounter Visit Diagnoses [...] documented as of this encounter Care Teams Architectural Representative Relationship Specialty Start Date End Date Rad Galvan MD [address] [place] [address] PCP - General 04/08/25 Uli Salcedo PA [address] [place] [address] Referring Physician 02/03/25 documented as of this encounter
--- OUTSIDE RECORDS SUMMARY | 2025-10-06 09:59 | XMS_ITS | Encounter Summary ---
Author Organization [facility] Address [address] [place] [address] Care Team Providers Care Creche Attendant Name Role Phone Rad Galvan MD Primary Care Provider + Encounter Details Date Type Department Care Team (Late st Contact Info) Description 07/18/2025 Telephone [facility] [address] [place] [address] Rad Galvan MD [address] [place] [address] Social History Tobacco Use Types [...] [facility] [address] [place] [address] Rad Galvan MD [address] [place] [address] documented as of this encounter Visit Diagnoses Not on filedocumented in this encounter Additional Health Concerns Assessment Noted Time PHQ-2 Depression Total Score: 1 02/17/20 24 10:24 AM EDT documented as of this encounter Care Teams Creche Attendant Relationship Specialty Start Date End Date Rad Galvan MD [address] [place] [address] PCP - General Family Medicine 04/15/22 documented as of this encounter
--- OUTSIDE RECORDS SUMMARY | 2025-10-06 09:59 | XMS_ITS | Encounter Summary ---
Author Organization [facility] Address [address] [place] [address] Care Team Providers Care Digital Marketing Manager Name Role Phone Uli Salcedo Unavailable [phone] Rad Galvan MD Primary Care Provider [phone] Encounter Details Date Type Department Care Team (Latest Contact Info) Description 10/03/2025 Travel Social History Tobacco Use Types Packs/Day [...] 10/17/2025 11:40 AM EST Office Visit [facility] [place] Nephrology, Bone & Mineral Metabolism [address] [facility], [address] [place] [address] Azael Mooney MD [address] [place] [address] 01/13/2026 9:30 AM EST Office Visit [facility] [place] [facility] [address] [place] [address] Elvin Schuler MD [address] [place] [address] documented as of this encounter Visit Diagnoses [...] documented as of this encounter Care Teams Digital Marketing Manager Relationship Specialty Start Date End Date Rad Galvan MD [address] [place] [address] PCP - General 04/08/25 Uli Salcedo PA [address] [place] [address] Referring Physician 02/03/25 documented as of this encounter
--- OUTSIDE RECORDS SUMMARY | 2025-10-06 09:59 | XMS_ITS | Encounter Summary ---
Author Organization [facility] Address [address] [place] [id number] Care Team Providers Care Internal Carver Name Role Phone Uli Salcedo Unavailable [phone] Rad Galvan MD Primary Care Provider [phone] Encounter Details Date Type Department Care Team (Late st Contact Info) Description 10/05/2025 Telephone [facility] [place] [address] [facility] [place] [address] Yaritza Johnson, RN [facility] [address] [place] [address] Social History Tobacco Use Types Packs/Day Years [...] Telephone Encounter - Yaritza Johnson RN - 10/05/2025 11:35 AM EST Ms Edwards contacted office today. Reports weight in the last week and a half has increased from 190 to 204. Reports swelling in BLE and abdomen. States she has been sending PAD readings daily but wehaven't received a reading every day. Stated she would resend reading again today. yesterday was 21. taking bumex 2mg (1mg tablets- 2pills) daily with an additonal 1mg EOD. Advised to increase to 2mgBID for the next 2-3 days and obtain labs to further assess. Lab order faxed to [facility] at [phone] (outpatient registration). Stated she would go tomorrow to repeat. Message sent to Chika Orellana APRN to update and advise any additional changes documented in this encounter Plan of Treatment Upcoming Encounters Date Type Department Care Team (Late st Contact Info) Description 10/17/2025 11:40 AM EST Office Visit [facility] Nephrology, Bone & Mineral Metabolism [address] [facility], [address] [place] [address] Azael Mooney MD [address] [place] [address] 01/13/2026 9:30 AM EST Office Visit [facility] [place] [address] [facility] [place] [address] Elvin Schuler MD [address] [place] [address] Scheduled Orders Name Type Priority Associated Diagnoses Orde r Schedule Basic Metabolic Panel, Plasma Lab Routine Chronic systolic congestive heart failure Expected: 10/05/2025 (Approximate), Expires: 04/08/2027 N-Terminal Probnp, Plasma Lab Routine Chronic systolic congestive heart failure Expected: 10/05/2025 (Approximate), Expires: 04/08/2027 documented as of this encounter Visit Diagnoses Diagnosis Chronic combined systolic and diastolic congestive heart failure- Primary Congestive heart failure, unspecified HF chronicity, unspecified heart failure type Chronic systolic congestive heart failure documented in this encounter Additional Health Concerns Assessment Noted Time PHQ-9 Depression Total Score: 10 08/15/2 025 1:50 PM EDT A fall risk assessment has been complete d for the patient 09/16/2025 3:49 PM EDT A Body Mass Index follow-up plan has been documented for the patient 09/16/2025 4:37 PM EDT documented as of this encounter Care Teams Internal Carver Relationship Specialty Start Date End Date Rad Galvan MD [address] [place] [address] PCP - General 04/08/25 Uli Salcedo PA [address] [place] [address] Referring Physician 02/03/25 documented as of this encounter
--- OUTSIDE RECORDS SUMMARY | 2025-10-06 09:59 | XMS_ITS | Encounter Summary ---
Author Organization [facility] Address [address] [place] [address] Care Team Providers Care Camp Boss Name Role Phone Andrew Lee MD Primary Care Provider [phone] Uli Salcedo Unavailable [phone] Rad Galvan MD Primary Care Provider [phone] Encounter Details Date Type Department Care Team (Late Contact Info) Description 01/11/2025 Orders Only External Location [address] [place] [address] Uli Salcedo PA [address] [place], [place] [address] Social History Tobacco Use Types Packs/Day Years [...] 10/17/2025 11:40 AM EST Office Visit [facility] Nephrology, Bone & Mineral Metabolism [address] [facility], [address] [place] [address] Azael Mooney MD [address] [place] [address] 01/13/2026 9:30 AM EST Office Visit [facility] [place] [facility] [address] [place] [address] Elvin Schuler MD [address] [place] [address] documented as of this encounter Procedures Procedure [...] on filedocumented in this encounter Care Teams Camp Boss Relationship Specialty Start Date End Date Andrew Lee MD [address] [place] [address] [address] [place] [address] PCP - General 04/06/21 04/07/25 Rad Galvan MD [address] [place] [address] PCP - General 04/08/25 Uli Salcedo PA [address] [place] [address] Referring Physician 02/03/25 documented as of this encounter
[2025-10-06 11:58] LABS: Anion Gap 12.9 mEq/L (5-15); Blood Urea Nitrogen 44 mg/dl (7-17); Calcium 9.3 mg/dl (8.4-10.2); Carbon Dioxide 25 mmol/L (22.0-30.0); Chloride 95 mmol/L (98-107); Creatinine,Serum 1.60 mg/dl (0.52-1.04); Estimated Glomerular Filt Rate 32 ml/min (>60); GFR (African American) 39 ML/MIN (>60); Glucose 108 mg/dl (74-100); Potassium 4.9 mmoL/L (3.5-5.1); Sodium 128 mmol/L (136-145)
[2025-10-06 12:07] LABS: NT Pro Brain Natriuretic Pep. 989 pg/mL (0-125)
== END 2025-10-06 23:59 | disposition home or self-care (01) ==
LOC: LAB 09:55
PROVIDERS: PCP Family Medicine; Visit Provider Internal Medicine
DX: I50.22 Chronic systolic (congestive) heart failure (principal)
CPT/HCPCS: 36415; 80048; 83880

== ENCOUNTER 2025-10-07 10:01 | Outpatient (CLI) | payer MEDICARE, SELFPAY ==
--- OUTSIDE RECORDS SUMMARY | 2025-08-15 10:00 | XMS_ITS | Encounter Summary ---
Author Organization [facility] Address [address] [place] [address] Care Team Providers Care Student Counsellor Name Role Phone Uli Salcedo Unavailable [phone] Rad Galvan MD Primary Care Provider [phone] Encounter Details Date Type Department Care Team (Latest Contact Info) Description 08/15/2025 11:00 AM EDT Ancillary Procedure [facility] [place] [address] [place] [address] Chronic combined systolic and diastolic congestive heart [...] Upcoming Encounters Date Type Department Care Team ([facility] st Contact Info) Description 10/17/2025 11:40 AM EST Office Visit [facility] Nephrology, Bone & Mineral Metabolism [address] [facility], [address] [place] [address] Azael Mooney MD [address] [place] [address] 01/13/2026 9:30 AM EST Office Visit [facility] [place] [address] [facility]. [address] [place] [address] Elvin Schuler MD [address] [place] [address] documented as of this encounter Visit Diagnoses [...] documented as of this encounter Care Teams Student Counsellor Relationship Specialty Start Date End Date Rad Galvan MD [address] [place], [place] [id number] PCP - General 04/08/25 Uli Salcedo PA [address] [place] [address] Referring Physician 02/03/25 documented as of this encounter
--- OUTSIDE RECORDS SUMMARY | 2025-08-17 13:00 | XMS_ITS | Encounter Summary ---
Author Organization [facility] Address [address] [id number] Care Team Providers Care Applications Sales Consultant Name Role Phone Rad Galvan MD Primary Care Provider + Reason for Referral * Consultation (Urgent) - Closed Specialty Diagnoses / Procedures Referred By Contac t Referred To Contact Nephrology Diagnoses Stage 4 chronic kidney disease Procedures [place] OFFICE/OUTPATIENT NEW MODERATE MDM 45 MINUTES Desi Beckford APRN [address] [place] [address] Phone: tel: fax: Azael Mooney MD [address] [place] [address] Phone: tel: fax: Referral ID Status Reason Start Date Expiration Date V isits Requested Visits Authorized [id number] Closed Specialty Services Required 08/17/2025 11/16/2026 1 1 Reason for Visit * Reason Comments Hospital Follow Up Visit Encounter Details Date Type Department Care Team (Latest Contact Info) Description 08/17/2025 2:00 PM EDT Office Visit [facility] [address] [facility] [place] [address] Desi Beckford APRN [address] [facility] [address] [place] [address] Hospital discharge follow-up (Primary Dx); Stage 4 chronic kidney disease; Pneumonia of right lung due to infectious organism, unspecified part of lung; Gastrointestinal hemorrhage, unspecified gastrointestinal hemorrhage type Social History Tobacco Use Types Packs/Day Years Used Date Smoking Tobacco: Former Cigarettes 0.1 2 0 11/24/1980 - 1982 Smokeless Tobacco: Never Tobacco Cessation:Counseling Given: Not Answered Comments:In my Twenty Alcohol Use Standard Drinks/Week Comments Not Currently 0 (1 standard drink = 0.6 oz pur e alcohol) Don t drink now PHQ-2 Answer Date Recorded Retired PHQ-9: Brief [...] Sign Reading Time Taken Comments Blood Pressure 118/54 08/17/2025 2:06 PM EDT Pulse 69 08/17/2025 2:06 PM EDT Temperature 36.2 C (97.1 F) 08/17/2025 2:06 PM EDT Respiratory Rate 18 08/17/2025 2:06 PM EDT Oxygen Saturation 94% 08/17/2025 2:06 PM EDT Inhaled Oxygen Concentration - - Weight 93 kg (205 lb) 08/17/2025 2:06 PM EDT Height 154.9 cm (5' 1 ) 08/17/2025 2:06 PM EDT Body Mass Index 38.73 08/17/2025 2:06 PM EDT documented in this encounter Progress Notes * Desi Beckford, POLYMERIZATION OVEN TENDER - 08/17/2025 2:00 PM EDT Date: 08/17/2025 Patient Name: Sara Edwards : 1955 Chief Complaint: Chief Complaint Patient presents with Hospital Follow Up Visit History of Present Illness: Sara Edwards is a 70 y.o. female who is here today to follow up for HPI History of Present Illness The patient presents for a hospital follow-up. She sought emergency care this morning due to back pain that radiated to her right breast. A biopsywas performed on her lung to rule out cancer, which returned negative results. However, she experienced significant pain post- procedure. There was a suspicion of a blood clot, but she declined the CTscan with contrast. Instead, she was given two pills, had blood drawn, and underwent an x-ray, all of which were normal. She was informed that she has 2 or 3 small masses in her lung, but it is unclear whether these are remnants of pneumonia or unhealed areas. She was hospitalized from 08/07/2025 to 08/14/2025 due to a gastrointestinal bleed. During her stay, she was diagnosed with pneumonia and cirrhosis of the liver. A colonoscopy was performed by Dr. Munoz, with a follow-up scheduled for 09/21/2025. She also consulted a production supervisor trainee during her hospital stay. Her phenobarbital was discontinued as it was causing jerking movements. She has a history of atrial fibrillation and is currently on Xarelto. Swelling in her feet and legsis reported, and her production supervisor trainee, Dr. Pantoja, who primarily manages her heart condition, stated thatthe swelling in her feet and legs is not necessarily related to her heart condition. PAST SURGICAL HISTORY: - Colonoscopy - Heart catheterization - Defibrillator pacemaker Review of Systems: Review of Systems Constitutional: See hpi I have reviewed the patients family history, social history, past medical history, past surgical history and have updated it as appropriate. Medications: Current Outpatient Medications: allopurinol (ZYLOPRIM) 100 MG tablet, TAKE ONE TABLET BY MOUTH EVERY DAY, Disp: 60 tablet, Rfl: 5 atorvastatin (LIPITOR) 10 MG tablet, TAKE ONE TABLET BY MOUTH EVERY DAY (Patient taking differently: Take 4 tablets by mouth Daily.), Disp: 30 tablet, Rfl: 11 bumetanide (BUMEX) 1 MG tablet, TAKE TWO TABLETS BY MOUTH EVERY DAY, Disp: 60 tablet, Rfl: 2 Comfort EZ Pen [place] 32G X 6 MM [facility] [place] USE DIRECTED FOR insulin injections, Disp: 100 each, Rfl: 5 Continuous Glucose Upholstered Goods Crafter (FreeStyle Simón 3 [place]) device, Use 1 each Daily., Disp: 1 each, Rfl: 0 Continuous Glucose Sensor (FreeStyle Simón 3 Plus Sensor), Use Every 15 (Fifteen) Days., Disp: 2 each, Rfl: 11 dapagliflozin Propanediol (Farxiga) 10 MG tablet, Take by mouth. From cardio, Disp: , Rfl: digoxin (LANOXIN) 125 MCG tablet, TAKE ONE TABLET BY MOUTH EVERY DAY, Disp: 30 tablet, Rfl: 5 DULoxetine (CYMBALTA) 30 MG capsule, Take 1 capsule by mouth Daily., Disp: , Rfl: gabapentin (NEURONTIN) 600 MG tablet, TAKE ONE TABLET BY MOUTH TWICE DAILY MAY CAUSE DROWSINESS, Disp: 60 tablet, Rfl: 3 insulin aspart (NovoLOG FlexPen) 100 UNIT/ML solution pen-injector sc pen, Inject 8 Units under theskin into the appropriate area as directed As Needed (glucose >400)., Disp: 3 mL, Rfl: 0 insulin NPH-insulin regular (humuLIN 70/30,novoLIN 70/30) (70-30) 100 UNIT/ML injection, 40 units qAM and 40 units q PM, Disp: , Rfl: loratadine (CLARITIN) 10 MG tablet, TAKE ONE TABLET BY MOUTH EVERY DAY, Disp: 30 tablet, Rfl: 11 metOLazone (ZAROXOLYN) 5 MG tablet, Take 1 tablet by mouth Every Other Day., Disp: , Rfl: metoprolol succinate XL (TOPROL-XL) 25 MG 24 [...] 15 minutes., Disp: 30 tablet, Rfl: 0 [place]-3 Fatty Acids (fish oil) 1000 MG capsule capsule, Take 2 capsules by mouth Daily With Breakfast., Disp: , Rfl: pantoprazole (PROTONIX) 40 MG EC tablet, TAKE ONE TABLET BY MOUTH TWICE DAILY, Disp: 60 tablet, Rfl: 11 PHENobarbital 32.4 MG tablet, TAKE THREE TABLETS BY MOUTH EVERY DAY AT BEDTIME (Patient taking differently: Take 1 tablet by mouth Daily. 1.5 tablets qhs), Disp: 90 tablet, Rfl: 5 polyethylene glycol (MiraLax) 17 GM/SCOOP powder, Take 17 g by mouth Daily., Disp: 850 g, Rfl: 2 potassium chloride (KLOR-CON M20) 20 MEQ CR tablet, TAKE ONE TABLET BY MOUTH TWICE DAILY, Disp: 60 tablet, Rfl: 3 potassium chloride ER (K-TAB) 20 MEQ tablet controlled-release ER tablet, Take 1 tablet by mouth Every 12 (Twelve) Hours., Disp: 6 tablet, Rfl: 5 prednisoLONE acetate (PRED FORTE) 1 % ophthalmic suspension, 1 drop 4 (Four) Times a Day., Disp: , Rfl: Semaglutide,0.25 or 0.5MG/DOS, (OZEMPIC) 2 MG/3ML solution pen-injector, Inject 0.25 mg under the skin into the appropriate area as directed 1 (One) Time Per Week., Disp: , Rfl: spironolactone (ALDACTONE) 25 MG tablet, TAKE ONE TABLET BY MOUTH EVERY DAY (Patient taking differently: Take by mouth 2 (Two) Times a Day.), Disp: 90 tablet, Rfl: 1 traMADol (ULTRAM) 50 MG tablet, Take 1 tablet by mouth Every 6 (Six) Hours As Needed for Moderate Pain., Disp: 120 tablet, Rfl: 3 valsartan (Diovan) 40 MG tablet, Take 1 tablet by mouth 2 (Two) Times a Day. (Patient taking differently: Take 1 tablet by mouth Daily.), Disp: , Rfl: rOPINIRole (REQUIP) 2 MG tablet, TAKE ONE TABLET BY MOUTH EVERY NIGHT, Disp: 30 tablet, Rfl: 11 Allergies: Allergies Allergen Reactions Methylphenidate Itching Empagliflozin Itching Reglan [Metoclopramide] Rash PHQ-9 Total Score: Physical Exam: Vital Signs: Vitals: 08/17/25 1406 BP: 118/54 Pulse: 69 Resp: 18 Temp: 97.1 ??F (36.2 ??C) SpO2: 94% Weight: 93 kg (205 lb) Height: 154.9 cm (61 ) Body mass index is 38.73 kg/m??. Physical Exam Vitals and nursing note reviewed. Constitutional: Appearance: Normal appearance. HENT: Head: Normocephalic and atraumatic. Cardiovascular: Rate and Rhythm: Normal rate and regular rhythm. Pulmonary: Effort: Pulmonary effort is normal. Breath sounds: Normal breath sounds. Neurological: Mental Status: She is alert and oriented to person, place, and time. Assessment/Plan: Diagnoses and all orders for this visit: 1. Hospital discharge follow-up (Primary) 2. Stage 4 chronic kidney disease - Ambulatory Referral to Nephrology 3. Pneumonia of right lung due to infectious organism, unspecified part of lung 4. Gastrointestinal hemorrhage, unspecified gastrointestinal hemorrhage type Assessment & Plan 1. Pneumonia: - The pneumonia has shown improvement, as evidenced by the recent CT scan showing improving air space in the right lower lobe. - The potential for scarring of the lungs due to longstanding pneumonia was discussed. - Adequate hydration without overconsumption was advised. 2. Cirrhosis of the liver: - She was recently diagnosed with cirrhosis of the liver during her hospital stay from 08/07/2025 to 08/14/2025. - Continued monitoring and management of liver function are necessary. 3. Atrial fibrillation: - She has a history of atrial fibrillation. - Continued use of Xarelto is recommended. 4. Heart failure: - She has a documented ejection fraction of 30%, indicating heart failure. - Continued management and monitoring of heart failure are necessary. 5. Renal insufficiency: - Her kidney function is suboptimal but stable. - A referral to a mop man, Dr. Azael Mooney, at [facility], was made for further evaluation and management. Patient or patient client account representative verbalized consent for the use of Ambient Listening during the visit with Desi Beckford APRN for chart documentation. 08/17/2025 16:19 EDT *30 minutes spent with patient POC, education and medication management. Follow Up: Return for Next scheduled follow up. Desi Terry APRN [facility] documented in this encounter Plan of Treatment Upcoming Encounters Date Type Department Care Team (Late st Contact Info) Description 10/31/2025 11:00 AM EST Office Visit [facility] [address] [address] Rad Galvan MD [address] [address] documented as of this encounter Visit Diagnoses Diagnosis Hospital discharge follow-up- Primary Other follow-up examination Stage 4 chronic kidney disease Pneumonia of right lung due to infectious organism, unspecified part of lung Gastrointestinal hemorrhage, unspecified gastrointestinal hemorrhage type documented in this encounter Additional Health Concerns Assessment Noted Time PHQ-2 Depression Total Score: 1 02/17/20 24 10:24 AM EDT documented as of this encounter Care Teams Applications Sales Consultant Relationship Specialty Start Date End Date Rad Galvan MD [address] [facility] [address] [place] [address] PCP - General Family Medicine 04/15/22 documented as of this encounter
--- OUTSIDE RECORDS SUMMARY | 2025-08-22 13:00 | XMS_ITS | Encounter Summary ---
Author Organization [facility] Address [address] [place] [address] Care Team Providers Care Staffing Clerk Name Role Phone Uli Salcedo PA Unavailable [phone] Rad Galvan MD Primary Care Provider [phone] Reason for Referral * Consultation (Routine) - Authorized Specialty Diagnoses / Procedures Referred By Regan greene Referred To Contact Diagnoses Stage 3b chronic kidney disease (CMS/HCC) Lenore Cobos MD [facility] [address] [address] Phone: tel: fax: Referral ID Status Reason Start Date Expiration Date V isits Requested Visits Authorized [id number] Authorized 08/22/2025 02/21/2027 1 1 Reason for Visit * Reason Comments Follow-up * Consultation (Urgent) - Closed Specialty Diagnoses / Procedures Referred By Regan greene Referred To Contact Nephrology Diagnoses Stage 4 chronic kidney disease (CMS/HCC) Procedures [facility] OFFICE/OUTPATIENT NEW MODERATE MDM 45-59 MINUTES 131 ([email or web address]) - Ambulatory Referral to Nephrology Desi Beckford, MACHINE TRIMMER [address] [place] [address] Phone: tel: fax: Azael Mooney MD [address] [place] [address] Phone: tel: fax: Referral ID Status Reason Start Date Expiration Date Visits Re quested Visits Authorized [id number] Closed 08/17/2025 11/16/2026 1 1 Encounter Details Date Type Department Care Team (Late st Contact Info) Description 08/22/2025 2:00 PM EDT Office Visit [facility] [address] , [address] [place] [address] Lenore Seaman MD [address] [place] [address] Obesity (BMI 35.0-39.9 without comorbidity) [...] all 08/22/2025 2:23 PM EDT 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 Since 2020, her kidney function has shown [...] She is under the care of a mold cleaning and storage supervisor who has expressed concerns about excessive fluid [...] her diuretic regimen as prescribed by her mold cleaning and storage supervisor. Blood work including Cystatin C, repeat RFP [...] will follow up in 2-3 months at [facility]. RTC in 6 months with ordered tests [...] Procedure Laterality Date APPENDECTOMY N/A Appendectomy from [facility] GALLBLADDER SURGERY N/A Anastomosis Of Gallbladder from [facility] INSERT / REPLACE / REMOVE PACEM[facility]ER 2019 TONSILLECTOMY N/A Tonsillectomy from [facility] [3] Family History Problem Relation Name Age [...] AM EST Office Visit [facility] Mineral Met[facility] [address] [facility], [address] [place] [address] Azael Mooney MD [address] [place] [address] 01/13/2026 9:30 AM EST Office Visit [facility] [address] [facility] [place] [address] Elvin Schuler MD [address] [place] [address] Scheduled Orders Name Type Priority Associated Diagnoses Orde r Schedule Renal Function Panel, Plasma Lab Routine Stage 3b chronic kidney disease ([facility]) Expected: 02/19/2026 (Approximate), Expires: 02/19/2027 Albumin-creatinine ratio, urine, random Lab Routine Stage 3b chronic kidney disease ([facility]) Expected: 10/22/2025 (Approximate), Expires: 02/23/2027 CBC W/O Differential Lab Routine Stage 3b chronic kidney disease ([facility]) Expected: 10/22/2025 (Approximate), Expires: 02/23/2027 Cystatin C Lab Routine Stage 3b chronic kidney disease ([facility]) Expected: 10/22/2025 (Approximate), Expires: 02/23/2027 Protein, Random, Urine with Creatinine Lab Routine Stage 3b chronic kidney disease ([facility]/HCC) Expected: 10/22/2025 (Approximate), Expires: 02/23/2027 PTH Intact Total Lab Routine Stage 3b chronic kidney disease ([facility]/HCC) Expected: 10/22/2025 (Approximate), Expires: 02/23/2027 Urinalysis with reflex microscopic (Culture NOT Included) Lab Routine Stage 3b chronic kidney disease ([facility]) Expected: 10/22/2025 (Approximate), Expires: 02/23/2027 Vitamin D 25 Hydroxy Lab Routine Stage 3b chronic kidney disease ([facility]) Expected: 10/22/2025 (Approximate), Expires: 02/23/2027 Scheduled Referrals Name Type Priority Associated Diagnoses Order Schedule Follow Up Nephrology Outpatient Referral Routine Stage 3b chronic kidney disease (CMS/HCC) Expected: 10/22/2025 (Approximate), Expires: 09/21/2026 documented as of this encounter Results * (ABNORMAL) Cystatin C (08/22/2025 3:59 PM EDT) Cystatin C 1.8(H) 0.61 - 0.95 mg/L 08/22/2025 6:18 PM EDT [facility] Blood Venous blood specimen / Unknown Venipuncture / Unknown 08/22/2025 3:59 PM EDT 08/22/2025 3:59 PM EDT us Lenore Cobos MD LAB BLOOD OR DERABLES Final Result Performing Organization Address City/State/[facility] Co de Phone Number [facility] [address] [place] [address] * Vitamin D 25 Hydroxy (08/22/2025 3:59 PM EDT) Vitamin D 25 Hydroxy 61.8 20.0 - 80.0 ng/mL 08/22/2025 7:20 PM EDT [facility] Blood Venous blood specimen / Unknown Venipuncture / Unknown 08/22/2025 3:59 PM EDT 08/22/2025 3:59 PM EDT Narrative [facility] - 08/22/2025 7:20 PM EDT Testing performed on [employer], standardized against NIST SRM 2972. When testing [...] 80 ng/mL Possible toxicity: >100 ng/mL us Sayee Vitaly Alagusundaramoorthy MD LAB BLOOD OR DERABLES Final Result [facility] [address] [place] [address] * (ABNORMAL) PTH Intact Total (08/22/2025 3:59 PM EDT) PTH Intact Total 242(H) 9 - 77 pg/mL 08/22/2025 6:11 PM EDT [facility] Blood Venous blood specimen / Unknown Venipuncture / Unknown 08/22/2025 3:59 PM EDT 08/22/2025 3:59 PM EDT Narrative [facility] - 08/22/2025 6:11 PM EDT Assay performed by immunoassay at the [facility]. Performed on [employer] Maker chemiluminescent immunoassay, tractable to the World Health Organization's first international standard for PTH from the [facility], Code 79/500. Results obtained from different test methods or kits cannot be used interchangeably. Lenore Cobos MD LAB BLOOD OR DERABLES Final Result Performing Organization Address City/[facility]/ZIP Co de Phone Number [facility] [address] [place] [address] * (ABNORMAL) CBC W/O Differential (08/22/2025 3:59 PM EDT) WBC Count 7.37 3.70 - 10.30 10*3/uL LAB HEMATOLOGY METHOD 08/22/2025 5:23 PM EDT [facility] RBC Count 2.97(L) 3.90 - 5.20 10*6/uL LAB HEMATOLOGY METHOD 08/22/2025 5:23 PM EDT [facility] HGB 10.1(L) 11.2 - 15.7 g/dL LAB HEMATOLOGY METHOD 08/22/2025 5:23 PM EDT [facility] HCT 31.6(L) 34.0 - 45.0 % LAB HEMATOLOGY METHOD 08/22/2025 5:23 PM EDT [facility] Platelet Count 208 155 - 369 10*3/uL LAB HEMATOLOGY METHOD 08/22/2025 5:23 PM EDT [facility] MCV 106(H) 79 - 98 fL LAB HEMATOLOGY METHOD 08/22/2025 5:23 PM EDT [facility] MCH 34.0(H) 26.0 - 32.0 pg LAB HEMATOLOGY METHOD 08/22/2025 5:23 PM EDT [facility] MCHC 32.0 30.7 - 35.5 g/dL LAB HEMATOLOGY METHOD 08/22/2025 5:23 PM EDT [facility] RDW 15.4(H) 11.5 - 14.5 % LAB HEMATOLOGY METHOD 08/22/2025 5:23 PM EDT [facility] MPV 10.1 8.8 - 12.5 fL LAB HEMATOLOGY METHOD 08/22/2025 5:23 PM EDT [facility] nRBC 0.0 <=0.0 per 100 WBCs LAB HEMATOLOGY METHOD 08/22/2025 5:23 PM EDT [facility] Blood Venous blood specimen / Unknown Venipuncture / Unknown 08/22/2025 3:59 PM EDT 08/22/2025 3:59 PM EDT Lenore Cobos MD LAB BLOOD OR DERABLES Final Result [facility] [address] [place] [address] * (ABNORMAL) Renal Function Panel, Plasma (08/22/2025 3:59 PM EDT) Glucose, Plasma 178(H) 74 - 99 mg/dL 08/22/2025 5:45 PM EDT [facility] BUN, Plasma 32(H) 8 - 23 mg/dL 08/22/2025 5:45 PM EDT [facility] Creatinine, Plasma 1.55(H) 0.60 - 1.10 mg/dL 08/22/2025 5:45 PM EDT [facility] BUN/Creatinine Ratio 21 08/22/2025 5:45 PM EDT [facility] Sodium, Plasma 136 136 - 145 mmol/L 08/22/2025 5:45 PM EDT [facility] Potassium, Plasma 4.6 3.6 - 4.9 mmol/L 08/22/2025 5:45 PM EDT [facility] Chloride, Plasma 92(L) 97 - 107 mmol/L 08/22/2025 5:45 PM EDT [facility] CO2, Plasma 30(H) 22 - 29 mmol/L 08/22/2025 5:45 PM EDT [facility] Anion Gap 14 6 - 16 mmol/L 08/22/2025 5:45 PM EDT [facility] Total Calcium, Plasma 9.6 8.9 - 10.2 mg/dL 08/22/2025 5:45 PM EDT [facility] Phosphorus, Plasma 3.6 2.5 - 4.5 mg/dL 08/22/2025 5:45 PM EDT [facility] Albumin, Plasma 4.1 3.5 - 5.2 g/dL 08/22/2025 5:45 PM EDT [facility] eGFRcr 36.3 mL/min/1.7 3m*2 08/22/2025 5:45 PM EDT [facility] Comment:Reported eGFRcr in m L/min/1.73m2 is based the CKD-EPI 2020 equation that does not use a race coefficient. Blood Venous blood specimen / Unknown Venipuncture / Unknown 08/22/2025 3:59 PM EDT 08/22/2025 3:59 PM EDT us Lenore Cobos MD LAB BLOOD OR DERABLES Final Result [facility] [address] [place] [address] * Protein, Random, Urine with Creatinine (08/22/2025 3:48 PM EDT) Protein, Urine 6 mg/dL 08/22/2025 5:50 PM EDT [facility] Creatinine, Urine 19 mg/dL 08/22/2025 5:50 PM EDT [facility] Protein/Creati nine Ratio 0.3 mg/mg Creat 08/22/2025 5:50 PM EDT [facility] Urine Urine specimen obtained by clean catch procedure / Unknown Non-blood Collection / Unknown 08/22/2025 3:48 PM EDT 08/22/2025 3:48 PM EDT us Lenore Cobos MD LAB URINE OR DERABLES Final Result [facility] [address] [place] [address] * (ABNORMAL) Urinalysis with reflex microscopic (Culture NOT Included) (08/22/2025 3:48 PM EDT) Color, Urine Yellow LAB URINALYSIS - AUTOMATED METHOD 08/22/2025 5:22 PM EDT [facility] Clarity, Urine Clear LAB URINALYSIS - AUTOMATED METHOD 08/22/2025 5:22 PM EDT [facility] Spec [place], Urine 1.009 1.005 - 1.030 LAB URINALYSIS - AUTOMATED METHOD 08/22/2025 5:22 PM EDT [facility] pH, Urine 7.0 5.0 - 8.0 LAB URINALYSIS - AUTOMATED METHOD 08/22/2025 5:22 PM EDT [facility] Protein, Urine Negative Negative mg/dL LAB URINALYSIS - AUTOMATED METHOD 08/22/2025 5:22 PM EDT [facility] Glucose, Urine 500(A) Negative mg/dL LAB URINALYSIS - AUTOMATED METHOD 08/22/2025 5:22 PM EDT [facility] Ketones, Urine Negative Negative mg/dL LAB URINALYSIS - AUTOMATED METHOD 08/22/2025 5:22 PM EDT [facility] Blood, Urine Negative Negative LAB URINALYSIS - AUTOMATED METHOD 08/22/2025 5:22 PM EDT [facility] Bilirubin, Urine Negative Negative LAB URINALYSIS - AUTOMATED METHOD 08/22/2025 5:22 PM EDT [facility] Urobilinogen, Urine 0.2 0.2 to 1.0 mg/dL LAB URINALYSIS - AUTOMATED METHOD 08/22/2025 5:22 PM EDT [facility] Leukocytes, Urine Negative Negative LAB URINALYSIS - AUTOMATED METHOD 08/22/2025 5:22 PM EDT [facility] Nitrite, Urine Negative Negative LAB URINALYSIS - AUTOMATED METHOD 08/22/2025 5:22 PM EDT [facility] Urine Urine specimen obtained by clean catch procedure / Unknown Non-blood Collection / Unknown 08/22/2025 3:48 PM EDT 08/22/2025 3:48 PM EDT us Lenore Cobos MD LAB URINE OR DERABLES Final Result Performing Organization Address City/[facility] Co de Phone Number [facility] [address] [place] [address] * Albumin-creatinine ratio, urine, random (08/22/2025 3:48 PM EDT) Microalbumin, Urine <1.2 <1.9 mg/dL 08/22/2025 6:20 PM EDT [facility] Creatinine, Urine 19 mg/dL 08/22/2025 6:20 PM EDT [facility] Albumin/Creatin ine Ratio 08/22/2025 6:20 PM EDT [facility] Comment:Unable to calculate, at least one value is above or below the detection limit. Urine Urine specimen obtained by clean catch procedure / Unknown Non-blood Collection / Unknown 08/22/2025 3:48 PM EDT 08/22/2025 3:48 PM EDT us Lenore Cobos MD LAB URINE OR DERABLES Final Result Performing Organization Address City/[facility] Co de Phone Number [facility] [address] [place] [address] documented in this encounter Visit Diagnoses Diagnosis [...] documented as of this encounter Care Teams Staffing Clerk Relationship Specialty Start Date End Date Rad Galvan MD [address] [place] [address] [place] [address] PCP - General 04/08/25 Uli Salcedo PA [address] [place] [address] Referring Physician 02/03/25 documented as of this encounter
--- OUTSIDE RECORDS SUMMARY | 2025-09-07 19:00 | XMS_ITS | Clinical Summary ---
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 [...] HISTORY OF FALLING Active 08-18 00:00: 00 DIRECTOR PATIENT ACCOUNTING (CURRENT) USE OF INSULIN Active 11-24 00:00: 00 DIRECTOR PATIENT ACCOUNTING (CURRENT) USE OF ANTICOAGULAN TS Active 11-24 [...] 01-20 00:00: 00 02-02 17:09 :37 No [id number] DM 100 unit DAILY 100 unit DAILY (route: subcutaneo ) Med Classific ation: Endocrine bumetanide 1 mg tablet 01-12 00:00: 00 02-02 17:09 :37 No [id number] CHF 2 mg DAILY 2 mg DAILY (route: oral) Med Classific ation: Cardiovas cular Therapy Agents metolazone 2.5 mg tablet 01-12 00:00: 00 02-02 17:09 :37 No [id number] CHF 5 mg EVERY 48 HOURS 5 mg EVERY 48 HOURS (route: oral) Med Classific ation: Cardiovas cular Therapy Agents spironolact one 25 mg tablet 2 00:00: 00 02-02 17:09 :37 No [id number] CHF 25 mg 2 TIMES DAILY 25 mg 2 TIMES DAILY (route: oral) Med Classific ation: Cardiovas cular Therapy Agents tramadol 50 mg tablet 2-19 00:00: 00 02-02 17:09 :37 No [id number] PAIN 50 mg EVERY 6 HOURS NEEDED 50 mg EVERY 6 HOURS NEEDED (route: oral) Med Classific ation: Analgesic , Anti-infl ammatory or Antipyret ic allopurinol 100 mg tablet 2- 00:00: 00 02-02 17:09 :37 No [id number] GOUT 1 tablet EVERY DAY 1 tablet EVERY DAY (route: oral) Med Classific ation: Gout and Hyperuric emia Therapy gabapentin 800 mg tablet 12-29 00:00: 00 02-02 17:09 :37 No [id number] NEUROPATHY 600 mg THREE TIMES DAILY 600 mg THREE TIMES DAILY (route: oral) Med Classific ation: Central Nervous System Agents atorvastati n 10 mg tablet 12-27 00:00: 00 02-02 17:09 :37 No [id number] CAD 40 mg EVERY DAY 40 mg EVERY DAY (route: oral) Med Classific ation: Cardiovas cular Therapy Agents digoxin 125 mcg (0.125 mg) tablet 12-27 00:00: 00 02-02 17:09 :37 No [id number] SEIZURES 1 tablet EVERY DAY 1 tablet EVERY DAY (route: oral) Med Classific ation: Cardiovas cular Therapy Agents Farxiga 10 mg tablet 2- 00:00: 00 02-02 17:09 :37 No [id number] DM 10 mg EVERY DAY 10 mg EVERY DAY (route: oral) Med Classific ation: Endocrine loratadine 10 mg tablet - 00:00: 00 02-02 17:09 :37 No [id number] ALLERGY 10 mg EVERY DAY 10 mg EVERY DAY (route: oral) Med Classific ation: Respirato ry Therapy Agents Ozempic 0.25 mg or 0.5 mg (2 mg/3 mL) subcutaneou s pen injector 2- 00:00: 00 02-02 17:09 :37 No [id number] DM 0.5 mg 05 MG SUBCUTANEO USLY ONCE a WEEK DIRECTED 0.5 mg 05 MG SUBCUTANEO USLY ONCE a WEEK DIRECTED (route: subcutaneo us) Med Classific ation: Endocrine pantoprazol e 40 mg tablet,audrey yed release 12-27 00:00: 00 02-02 17:09 :37 No [id number] GERD 40 mg TWICE DAILY 40 mg TWICE DAILY (route: oral) Med Classific ation: Gastroint estinal Therapy Agents phenobarbit al 32.4 mg tablet 12-27 00:00: 00 02-02 17:09 :37 No [id number] SEIZURES 48.6 mg EVERY NIGHT AT BEDTIME 48.6 mg EVERY NIGHT AT BEDTIME (route: oral) Med Classific ation: Central Nervous System Agents valsartan 40 mg tablet 12-27 00:00: 00 02-02 17:09 :37 No [id number] CHF 40 mg DAILY 40 mg DAILY (route: oral) Med Classific ation: Cardiovas cular Therapy Agents duloxetine 30 mg capsule,del ayed release 08-19 00:00: 00 Yes [id number] DEPRESSION 30 mg DAILY 30 mg DAILY (route: oral) Med Classific ation: Central Nervous System Agents Humulin 70/30 U-100 Insulin 100 unit/mL subcutaneou s suspension 08-19 00:00: 00 Yes [id number] DM 60 unit BEDTIME 60 unit BEDTIME (route: subcutaneo us) Med Classific ation: Endocrine levofloxaci n 750 mg tablet 08-19 00:00: 00 Yes [id number] UTI 1 tablet EVERY 48 HOURS 1 tablet EVERY 48 HOURS (route: oral) Med Classific ation: Anti-Infe ctive Agents potassium chloride 20 mEq oral packet 08-19 00:00: 00 Yes [id number] SUPP 20 mEq DAILY 20 mEq DAILY (route: oral) Med Classific ation: Electroly te Balance-N utritiona l Products prednisolon e 1 %-moxifloxa yair 0.5 %-ketorolac 0.5 % eye drops 08-19 00:00: 00 Yes [id number] EYES 1 drops DAILY 1 drops DAILY (route: ophthalmic (eye)) Med Classific ation: Ophthalmi c Agents Xarelto 15 mg tablet 08-19 00:00: 00 Yes [id number] AFIB 15 mg DAILY 15 mg DAILY [...] FROM CONSULTING PHYSICIANS ALSO 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 RN/ADAPTED PHYSICAL EDUCATION SPECIALIST/REAL ESTATE ACCOUNTANT NURSE MAY PERFORM O2 SATURATION LEVEL ON ADMISSION AND PRN FOR RN TO ASSESS/ADAPTED PHYSICAL EDUCATION SPECIALIST TO OBSERVE PATIENT, WITH NOTIFICATION TO THE PHYSICIAN IF SATURATION IS 90% IN THE ABSENCE OF MORE SPECIFIC PARAMETERS FROM THE PHYSICIAN. AGENCY MAY PERFORM A RESUMPTION OF CARE VISIT FOLLOWING ANY HOSPITAL ADMISSION. RN/ADAPTED PHYSICAL EDUCATION SPECIALIST/REAL ESTATE ACCOUNTANT TO MONITOR CO-MORBID CONDITIONS LISTED ON THE PLAN OF CARE AND ANY NEW CONDITIONS THAT PRESENT THEMSELVES DURING THIS EPISODE TO IDENTIFY CHANGES AND INTERVENE TO MINIMIZE COMPLICATIONS. [code = RN TO OBSERVE, ASSESS, EVALUATE, AND DEVELOP AN INDIVIDUALIZED PLAN OF CARE. AGENCY MAY ACCEPT ORDERS FROM CONSULTING PHYSICIANS ALSO 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 RN/ADAPTED PHYSICAL EDUCATION SPECIALIST/REAL ESTATE ACCOUNTANT NURSE MAY PERFORM O2 SATURATION LEVEL ON ADMISSION AND PRN FOR RN TO ASSESS/ADAPTED PHYSICAL EDUCATION SPECIALIST TO OBSERVE PATIENT, WITH NOTIFICATION TO THE PHYSICIAN IF SATURATION IS 90% IN THE ABSENCE OF MORE SPECIFIC PARAMETERS FROM THE PHYSICIAN. AGENCY MAY PERFORM A RESUMPTION OF CARE VISIT FOLLOWING ANY HOSPITAL ADMISSION. RN/ADAPTED PHYSICAL EDUCATION SPECIALIST/REAL ESTATE ACCOUNTANT TO MONITOR CO-MORBID CONDITIONS LISTED ON THE PLAN OF CARE AND ANY NEW CONDITIONS THAT PRESENT THEMSELVES DURING THIS EPISODE TO IDENTIFY CHANGES AND INTERVENE TO MINIMIZE COMPLICATIONS.] Future Scheduled Test RISK FOR H OSPITALIZATION; RN TO ASSESS/TEACH, REAL ESTATE ACCOUNTANT/ADAPTED PHYSICAL EDUCATION SPECIALIST TO OBSERVE/TEACH PATIENT/CAREGIVER ON RISK FOR HOSPITALIZATION/EMERGENCY ROOM VISITS, TEACH SIGNS AND SYMPTOMS THAT PUT PATIENT AT RISK, WHEN TO NOTIFY NURSE/PHYSICIAN OF COMPLICATIONS/DECLINE, AND WHEN TO CALL 911. [code = RISK FOR HOSPITALIZATION; RN TO ASSESS/TEACH, REAL ESTATE ACCOUNTANT/ADAPTED PHYSICAL EDUCATION SPECIALIST TO OBSERVE/TEACH PATIENT/CAREGIVER ON RISK FOR HOSPITALIZATION/EMERGENCY ROOM VISITS, TEACH SIGNS AND SYMPTOMS THAT PUT PATIENT AT RISK, WHEN TO NOTIFY NURSE/PHYSICIAN OF COMPLICATIONS/DECLINE, AND WHEN TO CALL 911.] Future Scheduled Test CARDIOVASC ULAR SYSTEM; RN TO ASSESS/TEACH, ADAPTED PHYSICAL EDUCATION SPECIALIST/REAL ESTATE ACCOUNTANT TO OBSERVE/TEACH RELATED TO ALTERED CARDIOVASCULAR STATUS TO MINIMIZE COMPLICATIONS AND REDUCE HOSPITALIZATION. [code = CARDIOVASCULAR SYSTEM; RN TO ASSESS/TEACH, ADAPTED PHYSICAL EDUCATION SPECIALIST/REAL ESTATE ACCOUNTANT TO OBSERVE/TEACH RELATED TO ALTERED CARDIOVASCULAR STATUS TO MINIMIZE COMPLICATIONS AND REDUCE HOSPITALIZATION.] Future Scheduled Test HEART FAIL URE; RN TO ASSESS/TEACH, ADAPTED PHYSICAL EDUCATION SPECIALIST/REAL ESTATE ACCOUNTANT TO OBSERVE/TEACH CARDIOPULMONARY SYSTEM TO IDENTIFY SIGNS [...] [code = HEART FAILURE; RN TO ASSESS/TEACH, ADAPTED PHYSICAL EDUCATION SPECIALIST/REAL ESTATE ACCOUNTANT TO OBSERVE/TEACH CARDIOPULMONARY SYSTEM TO IDENTIFY SIGNS [...] N MANAGEMENT; RN TO ASSESS AND TEACH/ ADAPTED PHYSICAL EDUCATION SPECIALIST /REAL ESTATE ACCOUNTANT TO OBSERVE AND TEACH WARNING SIGNS AND SYMPTOMS TO AVOID HOSPITALIZATION. [code = HYPOTENSION MANAGEMENT; RN TO ASSESS AND TEACH/ ADAPTED PHYSICAL EDUCATION SPECIALIST /REAL ESTATE ACCOUNTANT TO OBSERVE AND TEACH WARNING SIGNS AND SYMPTOMS TO AVOID HOSPITALIZATION.] Future Scheduled Test ARRHYTHMIA MANAGEMENT; RN TO ASSESS AND TEACH, ADAPTED PHYSICAL EDUCATION SPECIALIST/REAL ESTATE ACCOUNTANT TO OBSERVE AND TEACH WARNING SIGNS AND SYMPTOMS TO AVOID HOSPITALIZATION. [code = ARRHYTHMIA MANAGEMENT; RN TO ASSESS AND TEACH, ADAPTED PHYSICAL EDUCATION SPECIALIST/REAL ESTATE ACCOUNTANT TO OBSERVE AND TEACH WARNING SIGNS AND SYMPTOMS TO AVOID HOSPITALIZATION.] Future Scheduled Test NEUROLOGIC AL SYSTEM MANAGEMENT; RN TO ASSESS AND TEACH, REAL ESTATE ACCOUNTANT/ADAPTED PHYSICAL EDUCATION SPECIALIST TO OBSERVE AND TEACH RELATED TO ALTERED NEUROLOGICAL STATUS TO MINIMIZE COMPLICATIONS AND REDUCE HOSPITALIZATION. [code = NEUROLOGICAL SYSTEM MANAGEMENT; RN TO ASSESS AND TEACH, REAL ESTATE ACCOUNTANT/ADAPTED PHYSICAL EDUCATION SPECIALIST TO OBSERVE AND TEACH RELATED TO ALTERED NEUROLOGICAL STATUS TO MINIMIZE COMPLICATIONS AND REDUCE HOSPITALIZATION.] Future Scheduled Test SEIZURE DI SORDER MANAGEMENT; RN/REAL ESTATE ACCOUNTANT/ADAPTED PHYSICAL EDUCATION SPECIALIST TO PROVIDE INSTRUCTION REGARDING MANAGEMENT OF SEIZURE DISORDER AND SEIZURE PRECAUTIONS. [code = SEIZURE DISORDER MANAGEMENT; RN/REAL ESTATE ACCOUNTANT/ADAPTED PHYSICAL EDUCATION SPECIALIST TO PROVIDE INSTRUCTION REGARDING MANAGEMENT OF SEIZURE DISORDER AND SEIZURE PRECAUTIONS.] Future Scheduled Test DIABETES M ANAGEMENT; RN TO ASSESS AND TEACH, REAL ESTATE ACCOUNTANT/ADAPTED PHYSICAL EDUCATION SPECIALIST TO OBSERVE AND TEACH INSTRUCTIONS OF DIABETIC CARE TO INCLUDE: DIET CARDIAC DIABETIC SKIN CARE, SIGNS AND SYMPTOMS OF HYPO/HYPERGLYCEMIA, PROPER ADMINISTRATION OF DIABETIC MEDICATION. RN/REAL ESTATE ACCOUNTANT/ADAPTED PHYSICAL EDUCATION SPECIALIST TO INSTRUCT ON DIABETIC FOOT CARE AND MONITOR FOR SKIN LESIONS ON LOWER EXTREMITIES. BLOOD GLUCOSE TESTING FREQ. RN TO ASSESS AND TEACH, REAL ESTATE ACCOUNTANT/ADAPTED PHYSICAL EDUCATION SPECIALIST TO OBSERVE AND TEACH PATIENT/CAREGIVER ABILITY TO PERFORM AND RECORD BLOOD GLUCOSE TESTING ORDERED AND TO REPORT ABNORMAL FINDINGS TO PHYSICIAN. RN/REAL ESTATE ACCOUNTANT/ADAPTED PHYSICAL EDUCATION SPECIALIST MAY PERFORM BLOOD GLUCOSE TEST NEEDED. RN/REAL ESTATE ACCOUNTANT/ADAPTED PHYSICAL EDUCATION SPECIALIST TO REPORT TO PHYSICIAN BLOOD GLUCOSE READINGS GREATER THAN 250 OR LESS THAN 80 RN/REAL ESTATE ACCOUNTANT/ADAPTED PHYSICAL EDUCATION SPECIALIST TO INSTRUCT PATIENT ON IMPORTANCE OF HGBA1C MONITORING, KIDNEY FUNCTION TEST, EYE AND FOOT EXAMS. [code = DIABETES MANAGEMENT; RN TO ASSESS AND TEACH, REAL ESTATE ACCOUNTANT/ADAPTED PHYSICAL EDUCATION SPECIALIST TO OBSERVE AND TEACH INSTRUCTIONS OF DIABETIC CARE TO INCLUDE: DIET CARDIAC DIABETIC SKIN CARE, SIGNS AND SYMPTOMS OF HYPO/HYPERGLYCEMIA, PROPER ADMINISTRATION OF DIABETIC MEDICATION. RN/REAL ESTATE ACCOUNTANT/ADAPTED PHYSICAL EDUCATION SPECIALIST TO INSTRUCT ON DIABETIC FOOT CARE AND MONITOR FOR SKIN LESIONS ON LOWER EXTREMITIES. BLOOD GLUCOSE TESTING FREQ. RN TO ASSESS AND TEACH, REAL ESTATE ACCOUNTANT/ADAPTED PHYSICAL EDUCATION SPECIALIST TO OBSERVE AND TEACH PATIENT/CAREGIVER ABILITY TO PERFORM AND RECORD BLOOD GLUCOSE TESTING ORDERED AND TO REPORT ABNORMAL FINDINGS TO PHYSICIAN. RN/REAL ESTATE ACCOUNTANT/ADAPTED PHYSICAL EDUCATION SPECIALIST MAY PERFORM BLOOD GLUCOSE TEST NEEDED. RN/REAL ESTATE ACCOUNTANT/ADAPTED PHYSICAL EDUCATION SPECIALIST TO REPORT TO PHYSICIAN BLOOD GLUCOSE READINGS GREATER THAN 250 OR LESS THAN 80 RN/REAL ESTATE ACCOUNTANT/ADAPTED PHYSICAL EDUCATION SPECIALIST TO INSTRUCT PATIENT ON IMPORTANCE OF HGBA1C MONITORING, KIDNEY FUNCTION TEST, EYE AND FOOT EXAMS.] Future Scheduled Test GENITOURIN FELIX MANAGEMENT; RN TO ASSESS AND TEACH, ADAPTED PHYSICAL EDUCATION SPECIALIST/REAL ESTATE ACCOUNTANT TO OBSERVE AND TEACH RELATED TO ALTERED GENITOURINARY STATUS TO MINIMIZE COMPLICATIONS AND REDUCE HOSPITALIZATION. [code = GENITOURINARY MANAGEMENT; RN TO ASSESS AND TEACH, ADAPTED PHYSICAL EDUCATION SPECIALIST/REAL ESTATE ACCOUNTANT TO OBSERVE AND TEACH RELATED TO ALTERED GENITOURINARY STATUS TO MINIMIZE COMPLICATIONS AND REDUCE HOSPITALIZATION.] Future Scheduled Test GASTROINTE STINAL MANAGEMENT; RN TO ASSESS AND TEACH, REAL ESTATE ACCOUNTANT/ADAPTED PHYSICAL EDUCATION SPECIALIST TO OBSERVE AND TEACH RELATED TO ALTERED GASTROINTESTINAL STATUS TO MINIMIZE COMPLICATIONS AND REDUCE HOSPITALIZATION. [code = GASTROINTESTINAL MANAGEMENT; RN TO ASSESS AND TEACH, REAL ESTATE ACCOUNTANT/ADAPTED PHYSICAL EDUCATION SPECIALIST TO OBSERVE AND TEACH RELATED TO ALTERED GASTROINTESTINAL STATUS TO MINIMIZE COMPLICATIONS AND REDUCE HOSPITALIZATION.] Future Scheduled Test RN TO ASSE SS AND TEACH, REAL ESTATE ACCOUNTANT/ADAPTED PHYSICAL EDUCATION SPECIALIST TO OBSERVE AND TEACH AND PROVIDE EDUCATION ON GI BLEEDING. [code = RN TO ASSESS AND TEACH, REAL ESTATE ACCOUNTANT/ADAPTED PHYSICAL EDUCATION SPECIALIST TO OBSERVE AND TEACH AND PROVIDE EDUCATION ON GI BLEEDING.] Future Scheduled Test FALL REDUC TION MANAGEMENT; RN TO ASSESS AND OBSERVE, ADAPTED PHYSICAL EDUCATION SPECIALIST/REAL ESTATE ACCOUNTANT TO OBSERVE FALL RISK FACTORS AND EDUCATE PATIENT/CAREGIVER ON STRATEGIES TO MINIMIZE THE RISK OF FALLING. [code = FALL REDUCTION MANAGEMENT; RN TO ASSESS AND OBSERVE, ADAPTED PHYSICAL EDUCATION SPECIALIST/REAL ESTATE ACCOUNTANT TO OBSERVE FALL RISK FACTORS AND EDUCATE PATIENT/CAREGIVER ON STRATEGIES TO MINIMIZE THE RISK OF FALLING.] Future Scheduled Test ANEMIA MAN AGEMENT; RN TO ASSESS AND TEACH, REAL ESTATE ACCOUNTANT/ADAPTED PHYSICAL EDUCATION SPECIALIST TO OBSERVE AND TEACH AND PROVIDE EDUCATION ON ANEMIA. [code = ANEMIA MANAGEMENT; RN TO ASSESS AND TEACH, REAL ESTATE ACCOUNTANT/ADAPTED PHYSICAL EDUCATION SPECIALIST TO OBSERVE AND TEACH AND PROVIDE EDUCATION ON ANEMIA.] Future Scheduled Test PNEUMONIA MANAGEMENT; RN TO ASSESS AND TEACH, ADAPTED PHYSICAL EDUCATION SPECIALIST/REAL ESTATE ACCOUNTANT TO OBSERVE AND TEACH SIGNS OF PNEUMONIA EXACERBATION AND PROVIDE EARLY INTERVENTIONS TO MINIMIZE RISK OF HOSPITALIZATION. [code = PNEUMONIA MANAGEMENT; RN TO ASSESS AND TEACH, ADAPTED PHYSICAL EDUCATION SPECIALIST/REAL ESTATE ACCOUNTANT TO OBSERVE AND TEACH SIGNS OF PNEUMONIA [...] End Date/Time Encounter Type Admission Type Attending [facility] Care Department Encounter ID Discharge Date Discharge Status Discharge Condition Discharge Reason Percent Goals Met 2025-08-18 00:00:00 2025-09-08 00:00:00 Outpatient [facility]EN[facility] [id number] 2025-09-08 00:00:00 DISCHARGE TO HOME OR SELF CARE INDEPENDEN T IN THE [facility] - NO LONGER REQUIRES SKILLED CARE 100.00
--- OUTSIDE RECORDS SUMMARY | 2025-09-07 19:00 | XMS_ITS | Clinical Summary ---
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 [...] HISTORY OF FALLING Active 08-18 00:00: 00 MANAGER RELIABILITY (CURRENT) USE OF INSULIN Active 11-24 00:00: 00 MANAGER RELIABILITY (CURRENT) USE OF ANTICOAGULAN TS Active 11-24 [...] 01-20 00:00: 00 02-02 17:09 :37 No [id number] DM 100 unit DAILY 100 unit DAILY (route: subcutaneo ) Med Classific ation: Endocrine bumetanide 1 mg tablet 01-12 00:00: 00 02-02 17:09 :37 No [id number] CHF 2 mg DAILY 2 mg DAILY (route: oral) Med Classific ation: Cardiovas cular Therapy Agents metolazone 2.5 mg tablet 01-12 00:00: 00 02-02 17:09 :37 No [id number] CHF 5 mg EVERY 48 HOURS 5 mg EVERY 48 HOURS (route: oral) Med Classific ation: Cardiovas cular Therapy Agents spironolact one 25 mg tablet 2 00:00: 00 02-02 17:09 :37 No [id number] CHF 25 mg 2 TIMES DAILY 25 mg 2 TIMES DAILY (route: oral) Med Classific ation: Cardiovas cular Therapy Agents tramadol 50 mg tablet 2-19 00:00: 00 02-02 17:09 :37 No [id number] PAIN 50 mg EVERY 6 HOURS NEEDED 50 mg EVERY 6 HOURS NEEDED (route: oral) Med Classific ation: Analgesic , Anti-infl ammatory or Antipyret ic allopurinol 100 mg tablet 2- 00:00: 00 02-02 17:09 :37 No [id number] GOUT 1 tablet EVERY DAY 1 tablet EVERY DAY (route: oral) Med Classific ation: Gout and Hyperuric emia Therapy gabapentin 800 mg tablet 12-29 00:00: 00 02-02 17:09 :37 No [id number] NEUROPATHY 600 mg THREE TIMES DAILY 600 mg THREE TIMES DAILY (route: oral) Med Classific ation: Central Nervous System Agents atorvastati n 10 mg tablet 12-27 00:00: 00 02-02 17:09 :37 No [id number] CAD 40 mg EVERY DAY 40 mg EVERY DAY (route: oral) Med Classific ation: Cardiovas cular Therapy Agents digoxin 125 mcg (0.125 mg) tablet 12-27 00:00: 00 02-02 17:09 :37 No [id number] SEIZURES 1 tablet EVERY DAY 1 tablet EVERY DAY (route: oral) Med Classific ation: Cardiovas cular Therapy Agents Farxiga 10 mg tablet 2- 00:00: 00 02-02 17:09 :37 No [id number] DM 10 mg EVERY DAY 10 mg EVERY DAY (route: oral) Med Classific ation: Endocrine loratadine 10 mg tablet - 00:00: 00 02-02 17:09 :37 No [id number] ALLERGY 10 mg EVERY DAY 10 mg EVERY DAY (route: oral) Med Classific ation: Respirato ry Therapy Agents Ozempic 0.25 mg or 0.5 mg (2 mg/3 mL) subcutaneou s pen injector 2- 00:00: 00 02-02 17:09 :37 No [id number] DM 0.5 mg 05 MG SUBCUTANEO USLY ONCE a WEEK DIRECTED 0.5 mg 05 MG SUBCUTANEO USLY ONCE a WEEK DIRECTED (route: subcutaneo us) Med Classific ation: Endocrine pantoprazol e 40 mg tablet,audrey yed release 12-27 00:00: 00 02-02 17:09 :37 No [id number] GERD 40 mg TWICE DAILY 40 mg TWICE DAILY (route: oral) Med Classific ation: Gastroint estinal Therapy Agents phenobarbit al 32.4 mg tablet 12-27 00:00: 00 02-02 17:09 :37 No [id number] SEIZURES 48.6 mg EVERY NIGHT AT BEDTIME 48.6 mg EVERY NIGHT AT BEDTIME (route: oral) Med Classific ation: Central Nervous System Agents valsartan 40 mg tablet 12-27 00:00: 00 02-02 17:09 :37 No [id number] CHF 40 mg DAILY 40 mg DAILY (route: oral) Med Classific ation: Cardiovas cular Therapy Agents duloxetine 30 mg capsule,del ayed release 08-19 00:00: 00 Yes [id number] DEPRESSION 30 mg DAILY 30 mg DAILY (route: oral) Med Classific ation: Central Nervous System Agents Humulin 70/30 U-100 Insulin 100 unit/mL subcutaneou s suspension 08-19 00:00: 00 Yes [id number] DM 60 unit BEDTIME 60 unit BEDTIME (route: subcutaneo us) Med Classific ation: Endocrine levofloxaci n 750 mg tablet 08-19 00:00: 00 Yes [id number] UTI 1 tablet EVERY 48 HOURS 1 tablet EVERY 48 HOURS (route: oral) Med Classific ation: Anti-Infe ctive Agents potassium chloride 20 mEq oral packet 08-19 00:00: 00 Yes [id number] SUPP 20 mEq DAILY 20 mEq DAILY (route: oral) Med Classific ation: Electroly te Balance-N utritiona l Products prednisolon e 1 %-moxifloxa yair 0.5 %-ketorolac 0.5 % eye drops 08-19 00:00: 00 Yes [id number] EYES 1 drops DAILY 1 drops DAILY (route: ophthalmic (eye)) Med Classific ation: Ophthalmi c Agents Xarelto 15 mg tablet 08-19 00:00: 00 Yes [id number] AFIB 15 mg DAILY 15 mg DAILY [...] FROM CONSULTING PHYSICIANS ALSO DR HERNANDEZ AT [facility] TO OBSERVE AND ASSESS, RACING MANAGER/DIRECT SUPPORT STAFF TO OBSERVE FOR RISK FOR FALLS AND INSTRUCT IN FALL PREVENTION, HOME SAFETY, MEDICATION MANAGEMENT, INFECTION PREVENTION, AND NUTRITION MANAGEMENT. RN/RACING MANAGER/DIRECT SUPPORT STAFF NURSE MAY PERFORM O2 SATURATION LEVEL ON ADMISSION AND PRN FOR RN TO ASSESS/RACING MANAGER TO OBSERVE PATIENT, WITH NOTIFICATION TO THE PHYSICIAN IF SATURATION IS 90% IN THE ABSENCE OF MORE SPECIFIC PARAMETERS FROM THE PHYSICIAN. AGENCY MAY PERFORM A RESUMPTION OF CARE VISIT FOLLOWING ANY HOSPITAL ADMISSION. RN/RACING MANAGER/DIRECT SUPPORT STAFF TO MONITOR CO-MORBID CONDITIONS LISTED ON THE PLAN OF CARE AND ANY NEW CONDITIONS THAT PRESENT THEMSELVES DURING THIS EPISODE TO IDENTIFY CHANGES AND INTERVENE TO MINIMIZE COMPLICATIONS. [code = RN TO OBSERVE, ASSESS, EVALUATE, AND DEVELOP AN INDIVIDUALIZED PLAN OF CARE. AGENCY MAY ACCEPT ORDERS FROM CONSULTING PHYSICIANS ALSO DR HERNANDEZ AT [facility] TO OBSERVE AND ASSESS, RACING MANAGER/DIRECT SUPPORT STAFF TO OBSERVE FOR RISK FOR FALLS AND INSTRUCT IN FALL PREVENTION, HOME SAFETY, MEDICATION MANAGEMENT, INFECTION PREVENTION, AND NUTRITION MANAGEMENT. RN/RACING MANAGER/DIRECT SUPPORT STAFF NURSE MAY PERFORM O2 SATURATION LEVEL ON ADMISSION AND PRN FOR RN TO ASSESS/RACING MANAGER TO OBSERVE PATIENT, WITH NOTIFICATION TO THE PHYSICIAN IF SATURATION IS 90% IN THE ABSENCE OF MORE SPECIFIC PARAMETERS FROM THE PHYSICIAN. AGENCY MAY PERFORM A RESUMPTION OF CARE VISIT FOLLOWING ANY HOSPITAL ADMISSION. RN/RACING MANAGER/DIRECT SUPPORT STAFF TO MONITOR CO-MORBID CONDITIONS LISTED ON THE PLAN OF CARE AND ANY NEW CONDITIONS THAT PRESENT THEMSELVES DURING THIS EPISODE TO IDENTIFY CHANGES AND INTERVENE TO MINIMIZE COMPLICATIONS.] Future Scheduled Test RISK FOR H OSPITALIZATION; RN TO ASSESS/TEACH, DIRECT SUPPORT STAFF/RACING MANAGER TO OBSERVE/TEACH PATIENT/CAREGIVER ON RISK FOR HOSPITALIZATION/EMERGENCY ROOM VISITS, TEACH SIGNS AND SYMPTOMS THAT PUT PATIENT AT RISK, WHEN TO NOTIFY NURSE/PHYSICIAN OF COMPLICATIONS/DECLINE, AND WHEN TO CALL 911. [code = RISK FOR HOSPITALIZATION; RN TO ASSESS/TEACH, DIRECT SUPPORT STAFF/RACING MANAGER TO OBSERVE/TEACH PATIENT/CAREGIVER ON RISK FOR HOSPITALIZATION/EMERGENCY ROOM VISITS, TEACH SIGNS AND SYMPTOMS THAT PUT PATIENT AT RISK, WHEN TO NOTIFY NURSE/PHYSICIAN OF COMPLICATIONS/DECLINE, AND WHEN TO CALL 911.] Future Scheduled Test CARDIOVASC ULAR SYSTEM; RN TO ASSESS/TEACH, RACING MANAGER/DIRECT SUPPORT STAFF TO OBSERVE/TEACH RELATED TO ALTERED CARDIOVASCULAR STATUS TO MINIMIZE COMPLICATIONS AND REDUCE HOSPITALIZATION. [code = CARDIOVASCULAR SYSTEM; RN TO ASSESS/TEACH, RACING MANAGER/DIRECT SUPPORT STAFF TO OBSERVE/TEACH RELATED TO ALTERED CARDIOVASCULAR STATUS TO MINIMIZE COMPLICATIONS AND REDUCE HOSPITALIZATION.] Future Scheduled Test HEART FAIL URE; RN TO ASSESS/TEACH, RACING MANAGER/DIRECT SUPPORT STAFF TO OBSERVE/TEACH CARDIOPULMONARY SYSTEM TO IDENTIFY SIGNS [...] [code = HEART FAILURE; RN TO ASSESS/TEACH, RACING MANAGER/DIRECT SUPPORT STAFF TO OBSERVE/TEACH CARDIOPULMONARY SYSTEM TO IDENTIFY SIGNS [...] N MANAGEMENT; RN TO ASSESS AND TEACH/ RACING MANAGER /DIRECT SUPPORT STAFF TO OBSERVE AND TEACH WARNING SIGNS AND SYMPTOMS TO AVOID HOSPITALIZATION. [code = HYPOTENSION MANAGEMENT; RN TO ASSESS AND TEACH/ RACING MANAGER /DIRECT SUPPORT STAFF TO OBSERVE AND TEACH WARNING SIGNS AND SYMPTOMS TO AVOID HOSPITALIZATION.] Future Scheduled Test ARRHYTHMIA MANAGEMENT; RN TO ASSESS AND TEACH, RACING MANAGER/DIRECT SUPPORT STAFF TO OBSERVE AND TEACH WARNING SIGNS AND SYMPTOMS TO AVOID HOSPITALIZATION. [code = ARRHYTHMIA MANAGEMENT; RN TO ASSESS AND TEACH, RACING MANAGER/DIRECT SUPPORT STAFF TO OBSERVE AND TEACH WARNING SIGNS AND SYMPTOMS TO AVOID HOSPITALIZATION.] Future Scheduled Test NEUROLOGIC AL SYSTEM MANAGEMENT; RN TO ASSESS AND TEACH, DIRECT SUPPORT STAFF/RACING MANAGER TO OBSERVE AND TEACH RELATED TO ALTERED NEUROLOGICAL STATUS TO MINIMIZE COMPLICATIONS AND REDUCE HOSPITALIZATION. [code = NEUROLOGICAL SYSTEM MANAGEMENT; RN TO ASSESS AND TEACH, DIRECT SUPPORT STAFF/RACING MANAGER TO OBSERVE AND TEACH RELATED TO ALTERED NEUROLOGICAL STATUS TO MINIMIZE COMPLICATIONS AND REDUCE HOSPITALIZATION.] Future Scheduled Test SEIZURE DI SORDER MANAGEMENT; RN/DIRECT SUPPORT STAFF/RACING MANAGER TO PROVIDE INSTRUCTION REGARDING MANAGEMENT OF SEIZURE DISORDER AND SEIZURE PRECAUTIONS. [code = SEIZURE DISORDER MANAGEMENT; RN/DIRECT SUPPORT STAFF/RACING MANAGER TO PROVIDE INSTRUCTION REGARDING MANAGEMENT OF SEIZURE DISORDER AND SEIZURE PRECAUTIONS.] Future Scheduled Test DIABETES M ANAGEMENT; RN TO ASSESS AND TEACH, DIRECT SUPPORT STAFF/RACING MANAGER TO OBSERVE AND TEACH INSTRUCTIONS OF DIABETIC CARE TO INCLUDE: DIET CARDIAC DIABETIC SKIN CARE, SIGNS AND SYMPTOMS OF HYPO/HYPERGLYCEMIA, PROPER ADMINISTRATION OF DIABETIC MEDICATION. RN/DIRECT SUPPORT STAFF/RACING MANAGER TO INSTRUCT ON DIABETIC FOOT CARE AND MONITOR FOR SKIN LESIONS ON LOWER EXTREMITIES. BLOOD GLUCOSE TESTING FREQ. RN TO ASSESS AND TEACH, DIRECT SUPPORT STAFF/RACING MANAGER TO OBSERVE AND TEACH PATIENT/CAREGIVER ABILITY TO PERFORM AND RECORD BLOOD GLUCOSE TESTING ORDERED AND TO REPORT ABNORMAL FINDINGS TO PHYSICIAN. RN/DIRECT SUPPORT STAFF/RACING MANAGER MAY PERFORM BLOOD GLUCOSE TEST NEEDED. RN/DIRECT SUPPORT STAFF/RACING MANAGER TO REPORT TO PHYSICIAN BLOOD GLUCOSE READINGS GREATER THAN 250 OR LESS THAN 80 RN/DIRECT SUPPORT STAFF/RACING MANAGER TO INSTRUCT PATIENT ON IMPORTANCE OF HGBA1C MONITORING, KIDNEY FUNCTION TEST, EYE AND FOOT EXAMS. [code = DIABETES MANAGEMENT; RN TO ASSESS AND TEACH, DIRECT SUPPORT STAFF/RACING MANAGER TO OBSERVE AND TEACH INSTRUCTIONS OF DIABETIC CARE TO INCLUDE: DIET CARDIAC DIABETIC SKIN CARE, SIGNS AND SYMPTOMS OF HYPO/HYPERGLYCEMIA, PROPER ADMINISTRATION OF DIABETIC MEDICATION. RN/DIRECT SUPPORT STAFF/RACING MANAGER TO INSTRUCT ON DIABETIC FOOT CARE AND MONITOR FOR SKIN LESIONS ON LOWER EXTREMITIES. BLOOD GLUCOSE TESTING FREQ. RN TO ASSESS AND TEACH, DIRECT SUPPORT STAFF/RACING MANAGER TO OBSERVE AND TEACH PATIENT/CAREGIVER ABILITY TO PERFORM AND RECORD BLOOD GLUCOSE TESTING ORDERED AND TO REPORT ABNORMAL FINDINGS TO PHYSICIAN. RN/DIRECT SUPPORT STAFF/RACING MANAGER MAY PERFORM BLOOD GLUCOSE TEST NEEDED. RN/DIRECT SUPPORT STAFF/RACING MANAGER TO REPORT TO PHYSICIAN BLOOD GLUCOSE READINGS GREATER THAN 250 OR LESS THAN 80 RN/DIRECT SUPPORT STAFF/RACING MANAGER TO INSTRUCT PATIENT ON IMPORTANCE OF HGBA1C MONITORING, KIDNEY FUNCTION TEST, EYE AND FOOT EXAMS.] Future Scheduled Test GENITOURIN FELIX MANAGEMENT; RN TO ASSESS AND TEACH, RACING MANAGER/DIRECT SUPPORT STAFF TO OBSERVE AND TEACH RELATED TO ALTERED GENITOURINARY STATUS TO MINIMIZE COMPLICATIONS AND REDUCE HOSPITALIZATION. [code = GENITOURINARY MANAGEMENT; RN TO ASSESS AND TEACH, RACING MANAGER/DIRECT SUPPORT STAFF TO OBSERVE AND TEACH RELATED TO ALTERED GENITOURINARY STATUS TO MINIMIZE COMPLICATIONS AND REDUCE HOSPITALIZATION.] Future Scheduled Test GASTROINTE STINAL MANAGEMENT; RN TO ASSESS AND TEACH, DIRECT SUPPORT STAFF/RACING MANAGER TO OBSERVE AND TEACH RELATED TO ALTERED GASTROINTESTINAL STATUS TO MINIMIZE COMPLICATIONS AND REDUCE HOSPITALIZATION. [code = GASTROINTESTINAL MANAGEMENT; RN TO ASSESS AND TEACH, DIRECT SUPPORT STAFF/RACING MANAGER TO OBSERVE AND TEACH RELATED TO ALTERED GASTROINTESTINAL STATUS TO MINIMIZE COMPLICATIONS AND REDUCE HOSPITALIZATION.] Future Scheduled Test RN TO ASSE SS AND TEACH, DIRECT SUPPORT STAFF/RACING MANAGER TO OBSERVE AND TEACH AND PROVIDE EDUCATION ON GI BLEEDING. [code = RN TO ASSESS AND TEACH, DIRECT SUPPORT STAFF/RACING MANAGER TO OBSERVE AND TEACH AND PROVIDE EDUCATION ON GI BLEEDING.] Future Scheduled Test FALL REDUC TION MANAGEMENT; RN TO ASSESS AND OBSERVE, RACING MANAGER/DIRECT SUPPORT STAFF TO OBSERVE FALL RISK FACTORS AND EDUCATE PATIENT/CAREGIVER ON STRATEGIES TO MINIMIZE THE RISK OF FALLING. [code = FALL REDUCTION MANAGEMENT; RN TO ASSESS AND OBSERVE, RACING MANAGER/DIRECT SUPPORT STAFF TO OBSERVE FALL RISK FACTORS AND EDUCATE PATIENT/CAREGIVER ON STRATEGIES TO MINIMIZE THE RISK OF FALLING.] Future Scheduled Test ANEMIA MAN AGEMENT; RN TO ASSESS AND TEACH, DIRECT SUPPORT STAFF/RACING MANAGER TO OBSERVE AND TEACH AND PROVIDE EDUCATION ON ANEMIA. [code = ANEMIA MANAGEMENT; RN TO ASSESS AND TEACH, DIRECT SUPPORT STAFF/RACING MANAGER TO OBSERVE AND TEACH AND PROVIDE EDUCATION ON ANEMIA.] Future Scheduled Test PNEUMONIA MANAGEMENT; RN TO ASSESS AND TEACH, RACING MANAGER/DIRECT SUPPORT STAFF TO OBSERVE AND TEACH SIGNS OF PNEUMONIA EXACERBATION AND PROVIDE EARLY INTERVENTIONS TO MINIMIZE RISK OF HOSPITALIZATION. [code = PNEUMONIA MANAGEMENT; RN TO ASSESS AND TEACH, RACING MANAGER/DIRECT SUPPORT STAFF TO OBSERVE AND TEACH SIGNS OF PNEUMONIA [...] End Date/Time Encounter Type Admission Type Attending [facility] Care Department Encounter ID Discharge Date Discharge Status Discharge Condition Discharge Reason Percent Goals Met 2025-08-18 00:00:00 2025-09-08 00:00:00 Outpatient JENNYFER MOELLER [facility] [place] [id number] 2025-09-08 00:00:00 DISCHARGE TO HOME OR SELF CARE INDEPENDEN T IN THE [facility] - NO LONGER REQUIRES SKILLED CARE 100.00
--- OUTSIDE RECORDS SUMMARY | 2025-09-16 13:30 | XMS_ITS | Encounter Summary ---
Author Organization [facility] Address [address] [place] [address] Care Team Providers Care Powdered Metal Supervisor Name Role Phone Uli Salcedo Unavailable [phone] Rad Galvan MD Primary Care Provider [phone] Reason for Referral * Imaging (Routine) - Closed Specialty Diagnoses / Procedures Referred By Contac t Referred To Contact Cardiology Diagnoses Chronic combined systolic and diastolic congestive heart failure Procedures Echo, Adult Transthoracic Complete Elvin Schuler MD [address] [place] [address] Phone: tel: fax: Referral ID Status Reason Start Date Expiration Date V isits Requested Visits Authorized [id number] Closed Perform Procedure 07/27/2025 01/26/2027 1 1 Reason for Visit * Imaging (Routine) - Closed Specialty Diagnoses / Procedures Referred By Contac t Referred To Contact Cardiology Diagnoses Chronic combined systolic and diastolic congestive heart failure Procedures Echo, Adult Transthoracic Complete Elvin Schuler MD [address] [place] [address] Phone: tel: fax: Referral ID Status Reason Start Date Expiration Date V isits Requested Visits Authorized [id number] Closed Perform Procedure 07/27/2025 01/26/2027 1 1 Encounter Details Date Type Department Care Team (Latest Contact Info) Description 09/16/2025 2:30 PM EDT - 09/16/2025 11:59 PM EDT Hospital Encounter Cardiac Imaging [address] [place] [address] Chronic combined systolic and diastolic congestive heart failure Discharge Disposition: Home or Self Care Social [...] Sign Reading Time Taken Comments Blood Pressure 125/66 09/16/2025 2:51 PM EDT Pulse 70 09/16/2025 2:51 PM EDT Temperature - - Respiratory Rate - - Oxygen Saturation - - Inhaled Oxygen Concentration - - Weight - - Height - - Body Mass Index - - documented in this encounter Medications at Time of Discharge allopurinol (Zyloprim) 100 MG tablet Take 1 tablet by mouth daily. 01/25/2025 aspirin 81 MG chewable tablet Chew 1 tablet daily. 30 tablet 2 03/30/2025 atorvastatin (Lipitor) 10 MG tablet Take 1 tablet by mouth daily. 01/25/2025 bumetanide (Bumex) 1 MG tablet Take 2 tablets by mouth daily. Can take additional doses if needed 90 tablet 6 08/04/2025 bumetanide (Bumex) 2 MG tablet Take 1 [...] 8 Units under the skin. 01/20/2025 Ozempic, 0.25 or 0.5 MG/DOSE, 2 MG/3ML solution pen-injector inject 0.5 mg subcutaneously once weekly 08/01/2025 Ozempic, 2 MG/DOSE, 8 MG/3ML solution pen-injector INJECT 2 MG SUBCUTANEOUSLY ONCE A WEEK DIRECTED 04/27/2024 pantoprazole (Protonix) 40 MG EC tablet Take 1 tablet by mouth 2 times a day. 01/25/2025 PHENobarbital (Luminal) 32.4 MG tablet take three tablets by mouth every night at bedtime 01/25/2025 potassium chloride CR (K-Tab) 20 MEQ ER tablet Take 1 tablet by mouth 2 times a day. 08/01/2025 prednisoLONE acetate (Pred-Forte) 1 % ophthalmic suspension 1 drop 4 times a day. 08/07/2025 rOPINIRole (Requip) 2 MG tablet Take 1 [...] mouth 1 time each day with dinner. 08/13/2025 documented as of this encounter Plan of Treatment Upcoming Encounters Date Type Department Care Team (Late st Contact Info) Description 10/17/2025 11:40 AM EST Office Visit [facility] Nephrology, Bone & Mineral Metabolism [address], [address] [place] [address] Azeal Mooney MD [address] [place] [address] 01/13/2026 9:30 AM EST Office Visit [facility] [address] [place] [address] Elvin Schuler MD [address] [place] [address] documented as of this encounter Procedures Procedure Name Priority Date/Time Associated Diagnosis Comments ECHO, ADULT TRANSTHORACIC COMPLETE W/ CONTRAST Routine 09/16/2025 3:45 PM EDT Chronic combined systolic and diastolic congestive heart failure documented in this encounter Results * ECHO, ADULT TRANSTHORACIC COMPLETE W/ CONTRAST (09/16/2025 3:45 PM EDT) BSA 1.89 m2 [facility] ISC[facility] Height 154.9 [facility] ISC[facility] Weight 91.2 [facility] ISC[facility] LVIDd 48 mm [facility] ISCV LVIDs 33 mm [facility] ISCV IVSd 10 mm [facility] ISCV LVPWd 12 mm [facility] ISCV LV MASS(C)D 193 g MIRYAM ISCV [facility] CV ECHO LV MASS INDEX 102 g/m2 [facility] ISCV LV RWT 0.46 mm M[facility]YAM ISCV TR Vmax 237.0 cm/s M[facility]AM ISCV LA dimension 39 mm [facility] ISCV TR Max PG 22 mmHG [facility] ISCV RVSP 37 mmHg [facility] ISC[facility] RAP systole 15 mmHg [facility] ISC[facility] Ao Root Diam 25 mm [facility] ISC[facility] Asc Ao Diam 29 mm [facility] ISC[facility] LAV(MOD-4ch) 73 mL [facility] ISC[facility] LV Sept e' Sourav 12.1 cm/s [facility]SC[facility] LV Lat e' Velocity 15.3 cm/s [facility] ISC[facility] RA MOD 4Ch 85 mL [facility] ISCV MATEO 45 mL/m2 [facility] ISC[facility] RV base 46 mm [facility] ISCV RV Mid 36 mm [facility]AM ISCV TAPSE 16 mm M[facility]AM ISCV LAV(MOD-bp) Indexed 43 mL/m2 M[facility]AM ISCV LAV(MOD-2ch) 88 mL MIRYAM ISCV LV EDV(MOD-4ch) 91 mL MIRYAM ISCV LV ESV(MOD4ch) 37 mL MIRYAM ISCV EF(MOD-sp4) 59 % M[facility] ISCV MV E Vmax 100.6 cm/s [facility]YAM ISCV Lat E/e' 6.6 MIRYAM ISCV Sep E/e' 8.3 MIR[facility]AM ISCV Avg E/e' 7.4 MIRYAM ISCV Anatomical Region Laterality Modality Echocardiography Narrative 09/16/2025 5:09 PM EDT Left Ventricle: The left ventricular systolic function is mildly reduced. The LVEF is variable due to arrhythmia but is visually estimated at 40 - 55%. Unable to assess diastolic function due to arrhythmia. The left ventricular filling pressure is normal. Due to poor image quality, regional wall motion was not interpretable. Right Ventricle: The right ventricle is moderately dilated. The right ventricular systolic function is reduced. The estimated right ventricular systolic pressure is 37 mmHg. Right ventricular systolic pressure is mildly elevated (35-50mmHg). Tricuspid Valve: There is moderate tricuspid regurgitation. Pericardium: No pericardial effusion. There is no recent study available for direct [id number] comparison. Left Ventricle Based on the linear dimension and/or 2D volumes, the left ventricle is normal in size. There is concentric hypertrophy. The left ventricular systolic function is mildly reduced. The LVEF is variable due to arrhythmia but is visually estimated at 40 - 55%. Unable to assess diastolic function due to arrhythmia. The left ventricular filling pressure is normal. Due to poor image quality, regional wall motion was not interpretable. The septal motion is most consistent with a conduction abnormality. Right Ventricle The right ventricle is moderately dilated. A catheter/lead is present in the right ventricle. The right ventricular systolic function is reduced. The estimated right ventricular systolic pressure is 37 mmHg. Right ventricular systolic pressure is mildly elevated (35-50mmHg). Left Atrium The left atrial size is moderately increased with an indexed volume of 42-48 mL/m2. The interatrial septum is intact with no evidence for an atrial septal defect. Right Atrium The right atrial volume index is severely increased (>41mL/m2). There is a catheter/lead present in the right atrium. IVC/SVC Based on the IVC size and respiratory variation, the estimated right atrial pressure is 15mmHg. Mitral Valve The mitral valve is grossly normal. There is mild mitral regurgitation. There is no mitral stenosis. Tricuspid Valve The tricuspid valve is grossly normal in appearance. There is moderate tricuspid regurgitation. There is no tricuspid stenosis. Aortic Valve The aortic valve was not well visualized due to poor image quality. There is no valvular regurgitation. There is no hemodynamically significant valvular aortic stenosis. Pulmonic Valve The pulmonic valve was not well visualized. There is trace pulmonic regurgitation. There is no pulmonic stenosis. Pericardium No pericardial effusion. Great Vessels The aortic root is normal in size. In the maximally visualized portion, the ascending aorta appears normal in size. The main pulmonary artery is not well visualized. Study Details A complete transthoracic echocardiogram using two-dimensional (2D), m-mode, color and spectral flow Doppler imaging was performed. During the study the apical, parasternal, subcostal and suprasternal view was captured. Definity contrast was used during the study. Overall the study quality was adequate. The study was technically difficult due to patient's body habitus. Heart rate was bradycardic. Height: 154.9 cm. Weight: 91.2 kg. BSA: 1.89 m2. The heart rhythm during this exam was most suggestive of atrial fibrillation/flutter. Study Recommendation There is no recent study available for direct [id number] comparison. us Elvin Schuler MD CV ECHO PROCEDURES Final Re sult documented in this encounter Visit Diagnoses Diagnosis Chronic combined systolic and diastolic congestive heart failure documented in this encounter Administered Medications Inactive Administered Medications - up to 3 most recent administrations Medication Order MAR Action Action Date Dose Rate Site perflutren lipid microspheres (Definity) injection 10 mcL/kg 10 mcL/kg, Intravenous, Once in imaging, 1 dose, Starting on Fri09/16/25 at 1546, Until Fri09/16/25 at 1527, Routine Given 09/16/2025 3:27 PM EDT documented in this encounter Additional Health Concerns Assessment Noted Time PHQ-9 Depression Total Score: 10 07/08/ 025 1:50 PM EDT A fall risk assessment has been complete d for the patient 09/16/2025 3:49 PM EDT A Body Mass Index follow-up plan has been documented for the patient 09/16/2025 4:37 PM EDT documented as of this encounter Care Teams Powdered Metal Supervisor Relationship Specialty Start Date End Date Rad Galvan MD [address] [place] [address] PCP - General 04/08/25 Uli Salcedo PA [address] [place] [address] Referring Physician 02/03/25 documented as of this encounter
--- OUTSIDE RECORDS SUMMARY | 2025-09-16 15:00 | XMS_ITS | Encounter Summary ---
Author Organization [facility] Address [address] [place] [address] Care Team Providers Care Real Estate Professor Name Role Phone Uli Salcedo Unavailable [phone] Rad Galvan MD Primary Care Provider [phone] Reason for Referral * Consultation (Routine) - Authorized Specialty Diagnoses / Procedures Referred By Contac t Referred To Contact Diagnoses Chronic combined systolic and diastolic congestive heart failure Elvin Schuler MD [address] [place] [address] Phone: tel: fax: Referral ID Status Reason Start Date Expiration Date V isits Requested Visits Authorized [id number] Authorized 09/16/2025 03/18/2027 1 1 Encounter Details Date Type Department Care Team (Late st Contact Info) Description 09/16/2025 4:00 PM EDT Office Visit [facility] [address] [facility] [address] [place] [id number] Elvin Schuler MD [address] [place] [address] Chronic combined systolic and diastolic [...] of chronic longstanding systolic heart failure,status post FLOOR SCRUBBER-D in 2019 and Impulse CCM device in [...] overload. She was discharged on a Friday,attended [facility] on Friday, and traveled to [place] on Friday. She was able to ambulate [...] unexplained bleeding. PAST SURGICAL HISTORY: Status post FLOOR SCRUBBER-D in 2019 and Impulse CCM device in [...] is no recent study available for direct [id number] comparison. Labs Lab Results Component Value Date [...] on her PAD She is status post FLOOR SCRUBBER-D in 2019 and Impulse CCM device in [...] today. Continue with guideline-directed medical therapy of Tunkryw82 mg daily, metoprolol succinate 25 mg daily, spironolactone 25 mg daily, and Diovan 40 mg twice daily. - 2. Chronic persistent Afib - rate controlled , anticoagulated with Xarelto, - [facility] by [facility] at [facility] for s/sx of bleeding including [...] of the encounter: yes Chika Orellana APRN [facility] [1] Past Medical History: Diagnosis Date CHF (congestive heart failure) Chronic kidney disease 2019 Diabetes mellitus 2018 GERD (gastroesophageal reflux disease) Hyperlipemia Hypertension 1984 Hyperuricemia Personal history of other diseases of the digestive system History of hiatal hernia Restless leg syndrome Seizures (CMS/HCC) Unspecified convulsions (CMS/HCC) Seizures [2] Past Surgical History: Procedure Laterality Date APPENDECTOMY N/A Appendectomy from [facility] GALLBLADDER SURGERY N/A Anastomosis Of Gallbladder from [facility] INSERT / REPLACE / REMOVE PACEMAKER 2019 TONSILLECTOMY N/A Tonsillectomy from [facility] [3] Current Outpatient Medications Medication Sig Dispense [...] Description 10/17/2025 11:40 AM EST Office Visit [facility] Nephrology, Bone & Mineral Metabolism [address], [address] [place] [address] Azael Mooney MD [address] [place] [address] 01/13/2026 9:30 AM EST Office Visit [facility] [address] [facility] [place] [address] Elvin Schulre MD [address] [place] [address] Scheduled Referrals Name Type Priority [...] documented as of this encounter Care Teams Real Estate Professor Relationship Specialty Start Date End Date Rad Galvan MD [address] [place] [address] PCP - General 04/08/25 Uli Salcedo PA [address] [place] [address] Referring Physician 02/03/25 documented as of this encounter
--- OUTSIDE RECORDS SUMMARY | 2025-09-19 11:00 | XMS_ITS | Encounter Summary ---
Author Organization [facility] Address [address] [id number] Care Team Providers Care Pr Intern Name Role Phone Rad Galvan MD Primary Care Provider + Reason for Visit * Reason Comments [facility] ER / syncope Encounter Details Date Type Department Care Team (Late st Contact Info) Description 09/19/2025 12:00 PM EDT Office Visit [facility] [address] [place] [address] Rad Galvan MD [address] [place] [address] Orthostatic syncope (Primary Dx); Chronic HFrEF (heart failure with reduced ejection fraction); Need for immunization against influenza Social History Tobacco Use Types Packs/Day Years [...] Sign Reading Time Taken Comments Blood Pressure 115/60 09/19/2025 11:53 AM EDT Pulse 70 09/19/2025 11:53 AM EDT Temperature 36.2 C (97.1 F) 09/19/2025 11:53 AM EDT Respiratory Rate 20 09/19/2025 11:53 AM EDT Oxygen Saturation 98% 09/19/2025 11:53 AM EDT Inhaled Oxygen Concentration - - Weight 86.4 kg (190 lb 6.4 oz) 09/19/2025 11:53 AM EDT Height 154.9 cm (5' 1 ) 09/19/2025 11:53 AM EDT Body Mass Index 35.98 09/19/2025 11:53 AM EDT documented in this encounter Progress Notes * Rad Galvan MD - 09/19/2025 12:00 PM EDT Chief Complaint Patient presents with [facility] ER / syncope Subjective Sara Edwards is a 70 y.o. who presents for follow-up of an ER visit on September 08 for syncope at home. Episode occurred in the middle of the night when patient was going to the bathroom. She was evaluated in the ER. We have imaging records to review but no emergency room note to review. Imaging was unremarkable. Patient has known chronic LV systolic dysfunction but recently received positive news from [facility] where there has been an increase in her ejection fraction and she no longer is underconsideration for heart transplant. She has been monitoring blood pressure daily and brings in her blood pressure log with systolics no lower than 111 and diastolics in the 60s. She also reported her episode of syncope to cardiology. No medication changes have been made or have been necessary weight is noted to be down 15 pounds Objective Vital Signs: BP 115/60 Pulse 70 Temp 97.1 ??F (36.2 ??C) Resp 20 Ht 154.9 cm (61 ) Wt 86.4 kg (190 lb 6.4 oz) SpO2 98% BMI 35.98 kg/m?? Physical Exam Constitutional: Appearance: Normal appearance. HENT: Head: Normocephalic. Neck: Vascular: No carotid bruit. Cardiovascular: Rate and Rhythm: Normal rate. Rhythm irregular. Pulses: Normal pulses. Pulmonary: Effort: Pulmonary effort is normal. Breath sounds: Normal breath sounds. Musculoskeletal: Right lower leg: No edema. Left lower leg: No edema. Neurological: Mental Status: She is alert. Result Review The following data was reviewed by: Rad Galvan MD on 09/19/2025: Data reviewed : Radiologic studies CT HEAD, CTA Neck Aug 2025, Cardiology studies Echocardiogram 09/16/25, and Golf Coach notes Cardiology 09/16/25 Assessment and Plan Diagnoses and all orders for this visit: 1. Orthostatic syncope (Primary) 2. Chronic HFrEF (heart failure with reduced ejection fraction) 3. Need for immunization against influenza - Fluzone High-Dose 65+yrs ([id number]) Plan: Blood pressure is under very good control in the office today and there are no signs of hypotension. She will continue home monitoring of the blood pressure. Follow-up in 6 weeks as scheduled for her regular diabetes visit. Patient has follow-up with nephrology in the interim. Flu vaccine a dministered in office today Follow Up No follow-ups on file. Patient was given instructions and counseling regarding her condition or for health maintenance advice. Please see specific information pulled into the AVS if appropriate. documented in this encounter Plan of Treatment Upcoming Encounters Date Type Department Care Team (Late st Contact Info) Description 10/31/2025 11:00 AM EST Office Visit [facility] [address] [address] Rad Galvan MD Formerly named [facility] [place] [address] documented as of this encounter Visit Diagnoses Diagnosis Orthostatic syncope- Primary Chronic HFrEF (heart failure with reduced ejection fraction) Need for immunization against influenza Need for prophylactic vaccination and inoculation against influenza documented in this encounter Additional Health Concerns Assessment Noted Time PHQ-2 Depression Total Score: 1 02/17/20 24 10:24 AM EDT documented as of this encounter Care Teams Pr Intern Relationship Specialty Start Date End Date Rad Galvan MD [address] [place] [place] [address] PCP - General Family Medicine 04/15/22 documented as of this encounter
--- OUTSIDE RECORDS SUMMARY | 2025-09-23 11:00 | XMS_ITS | Encounter Summary ---
Author Organization [facility] Address [address] [place] [address] Care Team Providers Care Post Tensioning Ironworker Helper Name Role Phone Uli Salcedo Unavailable Rad Galvan MD Primary Care Provider [phone] Encounter Details Date Type Department Care Team (Latest Contact Info) Description 09/23/2025 12:00 PM EDT Ancillary Procedure [facility] [employer] [address] [place] [address] Chronic combined systolic and diastolic congestive heart failure Social History Tobacco Use Types Packs/Day Years [...] Clinician Note - Linda Garcia RN - 09/23/2025 12:00 PM EDT The patient has transmitted at least four times in the past 30 days and the provider has reviewed transmissions at least four times in the past 30 days. 08-23-2025 08:36 AM 38 mmHg 20 mmHg 2 27 mmHg 72 bpm 08-21-2025 07:51 AM 36 mmHg 18 mmHg 0 25 mmHg 72 bpm 08-19-2025 08:09 AM 38 mmHg 19 mmHg 1 26 mmHg 72 bpm 08-18-2025 08:40 AM 38 mmHg 19 mmHg 1 27 mmHg 71 bpm 08-10-2025 10:21 AM 38 mmHg 35 mmHg 17 36 mmHg 64 bpm Suspect 08-10-2025 10:18 AM 39 mmHg 36 mmHg 18 37 mmHg 77 bpm Suspect 08-09-2025 05:37 PM 42 mmHg 23 mmHg 5 31 mmHg 73 bpm 08-06-2025 07:19 AM 38 mmHg 21 mmHg 3 28 mmHg 76 bpm 08-05-2025 07:00 AM 36 mmHg 18 mmHg 0 25 mmHg 71 bpm 08-04-2025 09:02 AM 36 mmHg 19 mmHg 1 26 mmHg 71 bpm 08-03-2025 07:18 AM 43 mmHg 24 mmHg 6 31 mmHg 70 bpm 08-02-2025 06:31 AM 38 mmHg 20 mmHg 2 27 mmHg 75 bpm 08-01-2025 08:39 AM 41 mmHg 20 mmHg 2 28 mmHg 72 bpm 07-31-2025 07:57 AM 40 mmHg 18 mmHg 0 27 mmHg 72 bpm 07-30-2025 06:34 AM 39 mmHg 21 mmHg 3 28 mmHg 73 bpm 07-29-2025 07:31 AM 41 mmHg 18 mmHg 0 26 mmHg 73 bpm 07-28-2025 07:19 AM 41 mmHg 20 mmHg 2 28 mmHg 72 bpm 07-26-2025 06:35 AM 41 mmHg 19 mmHg 1 28 mmHg 72 bpm 07-25-2025 08:01 AM 37 mmHg 19 mmHg 1 27 mmHg 76 bpm I have reviewed the CardioMEMS transmissions as reported above. Cosigned by Chika Orellana APRN at 10/04/2025 9:28 AM EST Associated attestation - Chika Orellana APRN - 10/04/2025 9:28 AM EST I have personally reviewed and interpreted the Cardiomems pressure readings at least once weekly inthe past 30 days. These were remote readings not an in office device interrogation. Chika Orellana APRN documented in this encounter Plan of Treatment Upcoming Encounters Date Type Department Care Team (Late st Contact Info) Description 10/17/2025 11:40 AM EST Office Visit [facility]phrology, [facility] [address], [address] [place] [address] Azael Mooney MD [address] [place] [address] 01/13/2026 9:30 AM EST Office Visit [facility] [employer] [facility] [address] [place] [address] Elvin Schuler MD [address] [place] [address] documented as of this encounter [...] documented as of this encounter Care Teams Post Tensioning Ironworker Helper Relationship Specialty Start Date End Date Rad Galvan MD [address] [place] [address] PCP - General 04/08/25 Uli Salcedo PA [address] [place] [address] Referring Physician 02/03/25 documented as of this encounter
--- OUTSIDE RECORDS SUMMARY | 2025-10-07 10:04 | XMS_ITS | Encounter Summary ---
Author Organization [facility] Address [address] [place] [address] Care Team Providers Care Human Services Professional Name Role Phone Rad Galvan MD Primary Care Provider + Reason for Visit * Reason Onset Date Comments prescription clarification 08/31/2025 Pheno tavo Encounter Details Date Type Department Care Team (Late st Contact Info) Description 08/31/2025 Telephone [facility] [address] [place] [address] Rad Galvan MD [address] [place] [address] prescription clarification (Phenobarb) Social History [...] 11:26 AM EDT Antoinette with [facility] [phone] called wanting a corrected / clarified script [...] Description 10/31/2025 11:00 AM EST Office Visit [facility] [address] [place] [address] Rad Galvan MD [address] [place] [address] documented as of this encounter Visit Diagnoses Diagnosis Seizure disorder Unspecified epilepsy without mention of intractable epilepsy documented in this encounter Additional Health Concerns Assessment Noted Time PHQ-2 Depression Total Score: 1 02/17/20 24 10:24 AM EDT documented as of this encounter Care Teams Human Services Professional Relationship Specialty Start Date End Date Rad Galvan MD [address] [place] [address] PCP - General Family Medicine 04/15/22 documented as of this encounter
--- OUTSIDE RECORDS SUMMARY | 2025-10-07 10:05 | XMS_ITS | Encounter Summary ---
Author Organization [facility] Address [address] [place] [address] Care Team Providers Care Indoor Plant Technician Name Role Phone Rad Galvan MD [...] [facility] [address] [facility] [place] [place] [address] Rad Galvan MD [address] [place] [address] documented as of this encounter Visit Diagnoses Not on filedocumented in this encounter Additional Health Concerns Assessment Noted Time PHQ-2 Depression Total Score: 1 02/17/20 24 10:24 AM EDT documented as of this encounter Care Teams Indoor Plant Technician Relationship Specialty Start Date End Date Rad Galvan MD [address] [place] [address] PCP - General Family Medicine 04/15/22 documented as of this encounter
--- OUTSIDE RECORDS SUMMARY | 2025-10-07 10:05 | XMS_ITS ---
Author Organization [facility] Address [address] [place] [address] Care Team Providers Care Photographic Engineer Name Role Phone Rad Galvan MD Primary Care Provider + [facility] Status:Enrolled (Active) Start date:04/13/2025 Enrollment date:04/13/2025 Current support & services provided:Adherence- Cholesterol, Adherence- Hypertension Linked medications:Atorvastatin Calcium (Active), Valsartan (Active) Overview Atorvastatin and valsartan filled 03/26/2025 #30 day both have refills Case Team Name Relationship Phone Danielle Da Silva LPN(Responsible Staff) Licensed Mane cody Nurse Continued Care and Services Coordination
--- OUTSIDE RECORDS SUMMARY | 2025-10-07 10:05 | XMS_ITS | Encounter Summary ---
Author Organization [facility] Address [address] [place] [address] Care Team Providers Care Pitch Flaker Name Role Phone Rad Galvan MD Primary Care Provider + Encounter Details Date Type Department Care Team (Late Contact Info) Description 09/22/2025 External PBMM Data [facility] CALL CENTER [address] [place] [phone] Pharmacy, Payor Data Social History Tobacco Use [...] [facility] [address] [place] [phone] Rad Galvan MD [address] [place] [address] documented as of this encounter Visit Diagnoses Not on filedocumented in this encounter Additional Health Concerns Assessment Noted Time PHQ-2 Depression Total Score: 1 02/17/20 24 10:24 AM EDT documented as of this encounter Care Teams Pitch Flaker Relationship Specialty Start Date End Date Rad Galvan MD [address] [place] [address] PCP - General Family Medicine 04/15/22 documented as of this encounter
--- OUTSIDE RECORDS SUMMARY | 2025-10-07 10:05 | XMS_ITS | Clinical Summary ---
Author Organization [facility] Address [address] [place] [address] Care Team Providers Care Grab Hooker Name Role Phone Rad Galvan MD Primary Care Provider + Allergies Active Allergy Reactions Criticality Noted Date Comments Empagliflozin Itching Low 01/21/2025 Methylphenidate Itching Medium 02/18/2025 Metoclopramide Rash Low 04/15/2022 Medications Lydia-3 Fatty Acids (fish oil) 1000 MG capsule [...] tablet 11 024 Active Comfort EZ Pen [place] 32G X 6 MM misc USE DIRECTED [...] by mouth Daily. 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 She will be referred back to [facility] podiatry for topical interventions that [...] & Plan (08/01/2025 11:01 AM EDT): {CHF (Optional):23803} Seizure disorder 04/15/2022 Assessment & Plan (08/01/2025 11:01 AM EDT): Encounters Date Type Department Care Team Description 09/26/2025 Refill [facility] [address] [place] [address] Rad Galvan MD Type 2 diabetes mellitus with hyperglycemia, with long-term current use of insulin 09/22/2025 External PBMM Data [facility] CALL CENTER [address] [facility] [place] [phone] Pharmacy, Payor Data 09/19/2025 12:00 PM EDT Office Visit [facility] [address] [place] [address] Rad Galvan MD Orthostatic syncope (Primary Dx); Chronic HFrEF (heart failure with reduced ejection fraction); Need for immunization against influenza 09/19/2025 Travel 08/31/2025 Telephone [facility] [address] [place] [address] Rad Galvan MD prescription clarification (Phenobarb) 08/25/2025 Refill [facility] [address] [place] [address] Rad Galvan MD Restless leg syndrome 08/17/2025 2:00 PM EDT Office Visit [facility] [address] [place] [address] Desi Beckford APRN Hospital discharge follow-up (Primary Dx); Stage 4 chronic kidney disease; Pneumonia of right lung due to infectious organism, unspecified part of lung; Gastrointestinal hemorrhage, unspecified gastrointestinal hemorrhage type 08/17/2025 Travel 08/15/2025 External PBMM Data [facility] CALL CENTER [address] [place] [address] Pharmacy, Payor Data 08/02/2025 Telephone [facility] [address] [place] [address] Rad Galvan MD PHARMACY CALLS 08/02/2025 Documentation [facility] [address] [address] Stormy Wade PA 08/01/2025 10:15 AM EDT Office Visit [facility] [address] [place] [address] Rad Galvan MD Type 2 diabetes mellitus [...] long-term current use of insulin 08/01/2025 Refill [facility] [address] [place] [address] Rad Galvan MD Diabetic peripheral neuropathy associated with type 2 diabetes mellitus 08/01/2025 Travel 07/29/2025 Telephone [facility] [address] [place] [address] Rad Galvan MD ORDERS 07/18/2025 Telephone [facility] [address] [place] [address] Rad Galvan MD PHARMACY CALLS 07/18/2025 Telephone [facility] [address] [facility] [place] [address] Rad Galvan MD 07/15/2025 Telephone [facility] [address] [facility] [place] [address] Rad Galvan MD CALLBACK REQUEST 07/15/2025 Telephone [facility] [address] [facility] [place] [address] Rad Galvan MD New Med Request 07/13/2025 10:53 AM EDT - 07/13/2025 11:59 PM EDT Hospital Encounter PSYCHIATRIC XRAY [address] [place] [phone] Sidney Barraza MD Discharge Disposition: Home or Self Care 07/13/2025 9:00 AM EDT Office Visit [facility] [address] [facility] [address] [place] [phone] Sidney Barraza MD Chronic HFrEF (heart failure with reduced ejection fraction) (Primary Dx); Longstanding persistent atrial fibrillation 07/13/2025 Travel 07/07/2025 11:15 AM EDT Office Visit [facility] [address] [facility] [place] [address] Rad Galvan MD Left ventricular systolic dysfunction, [...] Description 10/31/2025 11:00 AM EST Office Visit [facility] [address] [place] [address] Rad Galvan MD [address] [place] [address] Health Maintenance Due Date Last Done [...] Hemoglobin A1C 7.2(A) 4.5 - 5.7 % [facility] Lot Number [id number] [facility] Expiration Date 03/09/2027 [facility] Blood 08/01/2025 10:4 0 AM EDT Rad Galvan MD POINT OF CARE TEST ORDER RICH Final Result [facility]
[address] [place] [address], * FOOT EXAM SCANNED (07/26/2025) Rad Galvan [...] MD 07/13/2025 4:13 PM EDT Workstation ID: [id number] Narrative 07/13/2025 4:13 PM EDT XR CHEST [...] MD 07/13/2025 4:13 PM EDT Workstation ID: [id number] Result [facility] Sidney Barraza MD IMG DIAGNOSTIC IMAGING [...] atrial fibrillation and paced BPM: 77 Result [facility] Sidney Barraza MD ECG ORDERABLES Final Result * Overnight Sleep Oximetry Study (07/11/2025) Result [facility] Rad Galvan MD RESPIRATORY CARE ORDERAB LES Final Result * (ABNORMAL) Albumin/Creatinine Ratio Urine (01/07/2025 3:18 PM EST) POC ALBUMIN, URINE 30 mg/L POC CREATININE, URINE 50 mg/dL POC Urine Albumin Creatinine Ratio 30-300 <30 Comment:abnormal Lot Number [id number] Expiration Date 10/23/2025 Urine 01/07/2025 3:18 PM EST Result [facility] Rad Galvan MD POINT OF CARE TEST ORDER RICH Final Result * SCANNED - MAMMO (02/18/2023) Anatomical Region Laterality Modality Other Result [facility] Rad Galvan MD CHART REVIEW TABS Fin al Result * SCANNED - DEXA (02/18/2023) Anatomical Region Laterality Modality Other Rad Galvan MD CHART REVIEW TABS Fin al Result * (ABNORMAL) Cologuard - Stool, Per Rectum (02/15/2023 4:07 PM EDT) Cologuard Positive( A) Negative 02/25/2023 5:18 PM EDT [facility] (CLIA #:[id number]) Comment: POSITIVE TEST RESULT. A positive Cologuard [...] (Kathleen Roberts al, N Engl J Med 2014;370(14):8939-5133.) Cologuard may produce a false negative or false positive result (no colorectal cancer or precancerous polyp present at colonoscopy follow up). A negative Cologuard test result does not guarantee the absence of CRC or advanced adenoma (pre-cancer). The current Cologuard screening interval is every 3 years. ([place] [employer] and U.S. Multi-Society Task Force). Cologuard performance data in a 10,000 patient pivotal study using colonoscopy as the reference method can be accessed at the following location: [email or web address]/results. Additional description of the Cologuard test process, warnings and precautions can be found at www.cologMention [email or web address].com. Stool specimen (specimen) Specimen from rectum / Unknown 02/15/2023 4:07 PM EDT 02/18/2023 3:05 PM EDT Rad Galvan MD BODY FLUIDS AND STOOLS O RDERABLES Final Result [facility] (CLIA #:[id number]) [address] [place] [address], from Last 3 Months or Most Recently Relevant to Health Maintenance Insurance [employer] PPO Care Teams Grab Hooker Relationship Specialty Start Date End Date Rad Galvan MD [address] [place] [address] [place] [address] PCP - General Family Medicine 04/15/22
--- OUTSIDE RECORDS SUMMARY | 2025-10-07 10:05 | XMS_ITS | Encounter Summary ---
Author Organization [facility] Address [address] [place] [address] Care Team Providers Care Oyster Preparer Name Role Phone Rad Galvan MD Primary Care Provider + Encounter Details Date Type Department Care Team (Late st Contact Info) Description 08/15/2025 External PBMM Data [facility] CALL CENTER [address] [place] [address] [place] [address] Pharmacy, Payor Data Social History Tobacco Use [...] AM EST Office Visit [facility] [address] [place] [address] Rad Galvan MD [address] [place] [address] documented as of this encounter Visit Diagnoses Not on filedocumented in this encounter Additional Health Concerns Assessment Noted Time PHQ-2 Depression Total Score: 1 02/17/20 24 10:24 AM EDT documented as of this encounter Care Teams Oyster Preparer Relationship Specialty Start Date End Date Rad Galvan MD [address] [place] [address] PCP - General Family Medicine 04/15/22 documented as of this encounter
--- OUTSIDE RECORDS SUMMARY | 2025-10-07 10:05 | XMS_ITS | Encounter Summary ---
Author Organization [facility] Address [address] [place] [address] Care Team Providers Care Manager Business Management Name Role Phone Uli Salcedo Unavailable [phone] Rad Galvan MD Primary Care Provider [phone] Encounter Details Date Type Department Care Team [...] Savage CNA documented as of this encounter Plan of Treatment Upcoming Encounters Date Type Department Care Team (Late st Contact Info) Description 10/17/2025 11:40 AM EST Office Visit [facility] [address] [facility] [address], [address] [place] [address] Azael Mooney MD [address] [place] [address] 01/13/2026 9:30 AM EST Office Visit [facility] [place] [facility] [address] [facility] [place] [address] Elvin Schuler MD [address] [place] [address] documented as of this encounter [...] as of this encounter Care Teams Manager Business Management Relationship Specialty Start Date End Date Rad Galvan MD [address] [place] [address] PCP - General 04/08/25 Uli Salcedo PA [address] [place] [address] Referring Physician 02/03/25 documented as of this encounter
--- OUTSIDE RECORDS SUMMARY | 2025-10-07 10:05 | XMS_ITS | Encounter Summary ---
Author Organization [facility] Address [address] [id number] Care Team Providers Care Human Resources Advisor Name Role Phone Rad Galvan MD Primary Care Provider + Reason for Visit * Reason Comments Med Refill Encounter Details Date Type Department Care Team (Late st Contact Info) Description 09/26/2025 Refill [facility] [address] [place] [address] Rad Galvan MD [address] [place] [address] Type 2 diabetes mellitus with [...] [facility] [address] [place] [address] Rad Galvan MD [address] [place], [place] [phone] documented as of this encounter Visit Diagnoses Diagnosis Type 2 diabetes mellitus with hyperglycemia, with long-term current use of insulin documented in this encounter Additional Health Concerns Assessment Noted Time PHQ-2 Depression Total Score: 1 02/17/20 24 10:24 AM EDT documented as of this encounter Care Teams Human Resources Advisor Relationship Specialty Start Date End Date Rad Galvan MD [address] [place] [address] PCP - General Family Medicine 04/15/22 documented as of this encounter
--- OUTSIDE RECORDS SUMMARY | 2025-10-07 10:05 | XMS_ITS | Encounter Summary ---
Author Organization [facility] Address [address] [id number] Care Team Providers Care Solar Energy Consultant And Designer Name Role Phone Rad Galvan MD Primary Care Provider + Reason for Visit * Reason Onset Date Comments Med Refill 08/25/2025 Encounter Details Date Type Department Care Team (Late st Contact Info) Description 08/25/2025 Refill [facility] [address] [place] [address] Rad Galvan MD [address] [place] [address] Restless leg syndrome Social History [...] Sara Edwards Relationship: Self Best call back number:[phone] Requested Prescriptions: Requested Prescriptions Pending Prescriptions Disp Refills rOPINIRole (REQUIP) 2 MG tablet 30 tablet 11 Sig: Take 1 tablet by mouth every night at bedtime. Pharmacy where request should be sent: [facility] [address] - [phone] - [phone] FX Last office visit with prescribing clinician: [...] [facility] [address] [place] [address] Rad Galvan MD [address] [place] [address] documented as of this encounter Visit Diagnoses Diagnosis Restless leg syndrome Restless legs syndrome (RLS) documented in this encounter Additional Health Concerns Assessment Noted Time PHQ-2 Depression Total Score: 1 02/17/20 24 10:24 AM EDT documented as of this encounter Care Teams Solar Energy Consultant And Designer Relationship Specialty Start Date End Date Rad Galvan MD [address] [place] [address] PCP - General Family Medicine 04/15/22 documented as of this encounter
--- OUTSIDE RECORDS SUMMARY | 2025-10-07 10:05 | XMS_ITS | Clinical Summary ---
Author Organization [facility] Address [address] [place] [address] Care Team Providers Care Print Controller Name Role Phone Uli Salcedo Unavailable [phone] Rad Galvan MD Primary Care Provider [phone] Allergies Active Allergy Reactions Criticality Noted Date [...] by mouth 2 times a day. Active metOLazone (Zaroxolyn) 5 MG tablet Take 1 tablet by mouth as needed (systolic heart failure). Take 1 dose today and tomorrow and then as needed daily for worsening heart failure symptoms 15 tablet 1 Active potassium chloride CR (Klor-Con M20) 20 MEQ ER tablet Take 1 tablet by mouth twice a day. 2024 Discontinued Xarelto 20 MG tablet TAKE ONE TABLET BY MOUTH EVERY DAY FOR BLOOD THINNER 2024 Discontinued metOLazone (Zaroxolyn) 5 MG tablet Take 1 tablet by mouth as needed (systolic heart failure). Take 1 dose today and tomorrow and then as needed. 15 tablet 1 025 2024 Discontinued(R eorder) Active Problems Problem Noted Date Diagnosed Date Obesity (BMI 35.0-39.9 without comorbidity) 06/24 Congestive heart failure 02/18/2025 Encounters Date Type Department Care Team Description 10/06/2025 Telephone [facility] [place] [address] [facility] [place] [address] Chika Orellana, SOLE INKER 10/06/2025 Telephone [facility] [place] [address] [facility], [address] [place] [address] Chika Orellana, SOLE INKER 10/05/2025 Telephone [facility] [place] [address] [facility] [place] [address] Elvin Schuler MD HCN - Patient Message 10/05/2025 Telephone [facility] [place] [address] [facility] [address] [place] [address] Yaritza Johnson RN 10/03/2025 Travel 10/03/2025 Orders Only [facility] [address] [place] [address] Linda Garcia RN Chronic combined systolic and diastolic congestive heart failure (Primary Dx) 09/23/2025 12:00 PM EDT Ancillary Procedure [facility] [address] [phone] Chronic combined systolic and diastolic congestive heart failure 09/16/2025 4:00 PM EDT Office Visit [address] [phone] Elvin Schuler MD Chronic combined systolic and diastolic congestive heart failure (Primary Dx) 09/16/2025 2:30 PM EDT - 09/16/2025 11:59 PM EDT Hospital Encounter Cardiac Imaging [address] [place] [phone] Chronic combined systolic and diastolic congestive heart failure Discharge Disposition: Home or Self Care 09/16/2025 Travel 09/15/[address] [phone] Elvin Schuler MD 09/09/2025 Travel 08/22/2025 2:00 PM EDT Office Visit [facility] Nephrology, Bone & Mineral Metabolism [address] [facility], [address] [place] [address] Lenore Aviles MD Obesity (BMI 35.0-39.9 without comorbidity) (Primary Dx); Chronic systolic congestive heart failure (CMS/HCC); Stage 3b chronic kidney disease (CMS/HCC) 08/22/2025 Travel 08/15/2025 11:00 AM EDT Ancillary Procedure [facility] [address] [phone] Chronic combined systolic and diastolic congestive heart failure (CMS/HCC) 08/15/2025 Travel 08/09/2025 Telephone [facility] [address] [place] [address] Elvin Schuler MD HCN - Patient Message 08/09/2025 Travel 08/09/2025 Orders Only [facility] [address] [place] [address] Linda Garcia RN Chronic combined systolic and diastolic congestive heart failure (CMS/HCC) (Primary Dx) 08/04/2025 Refill [facility] [address] [place] [address] Yaritza Johnson RN 07/27/2025 8:45 AM EDT - 07/27/2025 10:00 AM EDT Surgery [facility] [address] [place] [address] Elvin Schuler MD Right heart catheterization [40116 (CPT )] 07/27/2025 8:02 AM EDT - 07/27/2025 10:39 AM EDT Hospital Encounter Cardiac [facility] Manager [address] [place] [address] Elvin Schuler MD Chronic combined systolic and diastolic congestive heart failure (CMS/HCC) Discharge Disposition: Home or Self Care 07/27/2025 Telephone [facility] [address] [place] [address] Yaritza Johnson RN 07/22/2025 Telephone [facility] [address] [facility], [address] [place] [address] Chika Orellana, SOLE INKER 07/15/2025 10:30 AM EDT Ancillary Procedure [facility] [address] [place] [address] Chronic combined systolic and diastolic congestive heart failure (CMS/HCC) 07/08/2025 1:45 PM EDT Office Visit [facility] [address] [phone] Evlin Schuler MD Chronic combined systolic and diastolic [...] Description 10/17/2025 11:40 AM EST Office Visit [facility] Nephrology, Bone & Mineral Metabolism [address] [facility], [address] [place] [address] Azael Mooney MD [address] [place] [address] 01/13/2026 9:30 AM EST Office Visit [facility] [place] [address] [facility] [place] [address] Elvin Schluer MD [address] [place] [address] Health Maintenance Due Date Last [...] 2007 UKY-Zoster Vaccines (1 of 2) 2007 [id number] Vaccine ( season) 2025 09/06/2022, 11/28/2021, 03/06/2021, [...] Diagnosis Comments BASIC METABOLIC PANEL, PLASMA Routine 10/06/2025 ECHO, ADULT TRANSTHORACIC COMPLETE W/ CONTRAST Routine [...] Maintenance Results * Basic Metabolic Panel, Plasma (10/06/2025) External Glucose 108 External BUN 44 External Creatinine Blood 1.60 mg/dL External UN/Creat Ratio (UC) 44 External Sodium (Na) 128 mEq/L External Potassium (K) 4.9 External Chloride (Cl) 95 External Carbon Dioxide (CO2) 25 External Anion Gap (AG) 12.9 External Calcium (Ca) 9.3 External Estimated GFR 32 Blood Venous blood specimen / Unknown 10/06/2025 Historical Provider LAB BLOOD ORDERABLES Final R esult * ECHO, ADULT TRANSTHORACIC COMPLETE W/ CONTRAST [...] is no recent study available for direct [id number] comparison. Left Ventricle Based on the linear [...] is no recent study available for direct [id number] comparison. Elvin Schuler MD CV ECHO PROCEDURES Final Re sult * (ABNORMAL) Cystatin C (08/22/2025 3:59 PM EDT) Cystatin C 1.8(H) 0.61 - 0.95 mg/L 08/22/2025 6:18 PM EDT [facility] Blood Venous blood specimen / Unknown Venipuncture / Unknown 08/22/2025 3:59 PM EDT 08/22/2025 3:59 PM EDT Lenore Cobos MD LAB BLOOD OR DERABLES Final Result [facility] [address] [place] [address] * Vitamin D 25 Hydroxy (08/22/2025 3:59 PM EDT) Vitamin D 25 Hydroxy 61.8 20.0 - 80.0 ng/mL 08/22/2025 7:20 PM EDT [facility] Blood Venous blood specimen / Unknown Venipuncture / Unknown 08/22/2025 3:59 PM EDT 08/22/2025 3:59 PM EDT Narrative [facility] - 08/22/2025 7:20 PM EDT Testing performed on [employer], standardized against NIST SRM 2972. When testing [...] MD LAB BLOOD OR DERABLES Final Result [facility] [address] [place] [address] * (ABNORMAL) CBC W/O Differential (08/22/2025 3:59 [...] Final Result [facility] [address] [place] [address] * (ABNORMAL) PTH Intact Total (08/22/2025 3:59 PM EDT) Pathologist [facility] PTH Intact Total 242(H) 9 - 77 pg/mL 08/22/2025 6:11 PM EDT [facility] Blood Venous blood specimen / Unknown Venipuncture / Unknown 08/22/2025 3:59 PM EDT 08/22/2025 3:59 PM EDT Narrative [facility] - 08/22/2025 6:11 PM EDT Assay performed by immunoassay at the [facility]. Performed on [employer] chemiluminescent immunoassay, tractable to the World Health Organization's first international standard for PTH from the NIBS, Code 79/500. Results obtained from different test methods or kits cannot be used interchangeably. Lenore Cobos MD LAB BLOOD OR DERABLES Final Result Performing Organization Address City/[facility]/ZIP Co de Phone Number [facility] [address] [place] [address] * (ABNORMAL) Renal Function Panel, Plasma (08/22/2025 3:59 PM EDT) Glucose, Plasma 178(H) 74 - 99 mg/dL 08/22/2025 5:45 PM EDT [facility] BUN, Plasma 32(H) 8 - 23 mg/dL 08/22/2025 5:45 PM EDT [facility] Creatinine, Plasma 1.55(H) 0.60 - 1.10 mg/dL 08/22/2025 5:45 PM EDT [facility] BUN/Creatinine Ratio 21 08/22/2025 5:45 [...] Final Result [facility] [address] [place] [address] * Albumin-creatinine ratio, urine, random (08/22/2025 3:48 PM EDT) Microalbumin, Urine <1.2 <1.9 mg/dL 08/22/2025 6:20 PM EDT [facility] Creatinine, Urine 19 mg/dL 08/22/2025 6:20 PM EDT [facility] Albumin/Creatin ine Ratio 08/22/2025 6:20 PM EDT [facility] Comment:Unable to calculate, at least one value is above or below the detection limit. Urine Urine specimen obtained by clean catch procedure / Unknown Non-blood Collection / Unknown 08/22/2025 3:48 PM EDT 08/22/2025 3:48 PM EDT Lenore Cobos MD LAB URINE OR DERABLES Final Result Performing Organization Address City/[facility]/ZIP Co de Phone Number [facility] [address] [place] [address] * Protein, Random, Urine with Creatinine (08/22/2025 [...] OR DERABLES Final Result Performing Organization Address [facility] Co de Phone Number [facility] [address] [place] [address] * (ABNORMAL) Urinalysis with reflex microscopic (Culture NOT Included) (08/22/2025 3:48 PM EDT) Color, Urine Yellow LAB URINALYSIS - AUTOMATED METHOD 08/22/2025 5:22 PM EDT [facility] Clarity, Urine Clear LAB URINALYSIS - AUTOMATED METHOD 08/22/2025 5:22 PM EDT [facility] Spec [place], Urine 1.009 1.005 - 1.030 LAB URINALYSIS [...] OR DERABLES Final Result Performing Organization Address City/State/[facility] Phone Number [facility] [address] [place], [place] [id number] * RIGHT HEART CATHETERIZATION (07/27/2025 9:01 AM [...] then carried out using a 7.5F VIP [place]-Po catheter. Pressures were recorded as the catheter [...] patient was transferred back to the equipment operator/laborer/supervisor holding area in good condition. Hemodynamic Data [...] POCT CO-Oximitry, Venous (07/27/2025 8:59 AM EDT) [facility] POCT OXYHEMOGLOBIN, VENOUS 62 40 - 70 % 07/27/2025 8:57 AM EDT [facility] Buttoner ID Jael Zhong ch 07/27/2025 8:57 AM EDT [facility] Device ID [id number] 07/27/2025 8:57 AM EDT [facility] POCT Sample Site PA 07/27/2025 8:57 AM EDT [facility] POCT Total Hemoglobin 10.4(L) 11.2 - 15.7 g/dL 07/27/2025 8:57 AM EDT [facility] Venous blood specimen / Unknown 07/27/2025 8:59 AM EDT 07/27/2025 8:57 AM EDT us Elvin Schuler MD LAB POINT OF CARE T EST DOCKED DEVICE UNSOLICITED RESULTS Final Result Performing Organization Address City/[facility]/ZIP Co de Phone Number [facility] [address] [place] [address] * (ABNORMAL) N-Terminal Probnp, Plasma (07/08/2025 3:19 PM EDT) N-Terminal, PROBNP, Plasma 1,459(H) 0 - 899 pg/mL 07/08/2025 4:28 PM EDT [facility] Blood Venous blood specimen / Unknown Venipuncture / Unknown 07/08/2025 3:19 PM EDT 07/08/2025 3:54 PM EDT us Chika Orellana APRN LAB BLOOD ORDERABLES Final Result Performing Organization Address [facility] Co de Phone Number [facility] [address] [place] [address] * (ABNORMAL) Comprehensive metabolic panel (07/08/2025 3:19 PM EDT) Glucose, Plasma 84 74 - 99 mg/dL 07/08/2025 4:28 PM EDT [facility] BUN, Plasma 52(H) 8 - 23 mg/dL 07/08/2025 4:28 PM EDT [facility] Creatinine, Plasma 1.80(H) 0.60 - 1.10 mg/dL 07/08/2025 4:28 PM EDT [facility] BUN/Creatinine Ratio 29 07/08/2025 4:28 PM EDT [facility] Sodium, Plasma 130(L) 136 - 145 mmol/L 07/08/2025 4:28 PM EDT [facility] Potassium, Plasma 3.7 3.6 - 4.9 mmol/L 07/08/2025 4:28 PM EDT [facility] Chloride, Plasma 87(L) 97 - 107 mmol/L 07/08/2025 4:28 PM EDT [facility] CO2, Plasma 28 22 - 29 mmol/L 07/08/2025 4:28 PM EDT [facility] Anion Gap 15 6 - 16 mmol/L 07/08/2025 4:28 PM EDT [facility] Total Calcium, Plasma 9.4 8.9 - 10.2 mg/dL 07/08/2025 4:28 PM EDT [facility] Total Protein 8.0(H) 6.3 - 7.9 g/dL 07/08/2025 4:28 PM EDT [facility] Albumin, Plasma 4.4 3.5 - 5.2 g/dL 07/08/2025 4:28 PM EDT [facility] AST, Plasma 40(H) 10 - 35 U/L 07/08/2025 4:28 PM EDT [facility] Comment:Hemolyzed, result ma y be falsely increased. ALT, Plasma 19 10 - 35 U/L 07/08/2025 4:28 PM EDT [facility] Alkaline Phosphatase, Plasma 202(H) 46 - 142 U/L 07/08/2025 4:28 PM EDT [facility] Total Bilirubin, Plasma 0.8 0.2 - 1.1 mg/dL 07/08/2025 4:28 PM EDT [facility] eGFRcr 30.4 mL/min/1.7 3m*2 07/08/2025 4:28 PM EDT [facility] Comment:Reported eGFRcr in m L/min/1.73m2 is based the CKD-EPI 2020 equation that does not use a race coefficient. Blood Venous blood specimen / Unknown Venipuncture / Unknown 07/08/2025 3:19 PM EDT 07/08/2025 3:54 PM EDT us Chika Orellana APRN LAB BLOOD ORDERABLES Final Result [facility] [address] [place] [address] * [place] Hepatitis C Antibody (11/26/2020 6:51 PM EST) Pathologist [facility] [place] Hepatitis C Ab NEGATIVE Reference Range: Negative SUNQUEST 11/26/2020 6:51 PM EST 11/26/2020 7:09 PM EST us Justo Morse MD LAB BLOOD ORDERABLES Final Re sult RICHARDQUEST from Last 3 Months or Most Recently Relevant to Health Maintenance Insurance MEDICARE Advance Directives Documents on File Type Date Recorded Patient Service Line Layer Expl anation Advance Directives and Living Will 03/30/2025 LIVING WILL DIRECTIV E * Full Code (Latest Code Status on File) Date Activated Date Inactivated Comments 07/27/2025 9:34 AM 07/27/2025 12:40 PM Question Answer Comments Patient has decision-making capacity? Yes Healthcare Agents on File Name Relationship Healthcare Agent Relationshi p Communication Yennifer Edwards Daughter Next of Kin Care Teams Print Controller Relationship Specialty Start Date End Date Rad Galvan MD [address] [place] [address] PCP - General 04/08/25 Uli Salcedo PA [address] [place] [address] Referring Physician 02/03/25
--- OUTSIDE RECORDS SUMMARY | 2025-10-07 10:06 | XMS_ITS | Encounter Summary ---
Author Organization [facility] Address [address] [place] [address] Care Team Providers Care Finish Opener Name Role Phone Uli Salcedo Unavailable [phone] Rad Galvan MD Primary Care Provider [phone] Encounter Details Date Type Department Care Team (Late st Contact Info) Description 10/05/2025 Telephone [facility] [place] [address] [facility] [place] [address] Neptali Johnson RN [facility] [address] [place] [address] Social History Tobacco Use Types Packs/Day Years [...] Addendum Note - Neptali Johnson RN - 10/06/2025 2:01 PM ESTAddended by: NEPTALI JOHNSON on: 10/06/2025 02:01 PM Modules accepted: Orders * Addendum Note - Neptali Johnson RN - 10/06/2025 10:08 AM ESTAddended by: NEPTALI JOHNSON on: 10/06/2025 10:08 AM Modules accepted: Orders * Telephone Encounter - Neptali Johnson RN - 10/06/2025 10:02 AM EST Contacted Ms Alcantar to follow up on symptoms. Reported weight was up an additional 3lbs overnight.Current weight 207. PAD same at 21 this am from yesterday. Reports additional swelling in BLE and abdomen. Discussed with Chika Orellana and advised to order Metolazone 5mg to take today and tomorrow, along with bumex 2mg BID. Ms alcantar reported she was currently at lab . Will follow up on results * Telephone Encounter - Neptali Johnson RN - 10/05/2025 11:35 AM EST Ms Alcantar contacted office today. Reports weight in the [...] additonal 1mg EOD. Advised to increase to 2mg BID for the next 2-3 days and obtain labs to further assess. Lab order faxed to [facility] at [phone] (outpatient registration). Stated she would go tomorrow to repeat. Message sent to Chika Orellana APRN to update and advise any additional changes documented in this encounter Plan of Treatment Upcoming Encounters Date Type Department Care Team (Late st Contact Info) Description 10/17/2025 11:40 AM EST Office Visit [facility] Nephrology, Bone & Mineral Metabolism [address] [facility], [address] [place] [address] Azael Mooney MD [address] [place] [address] 01/13/2026 9:30 AM EST Office Visit [facility] [place] [facility] [address] [facility] [place] [address] Elvin Schuler MD [address] [place] [address] Scheduled Orders Name Type Priority [...] documented as of this encounter Care Teams Finish Opener Relationship Specialty Start Date End Date Rad Galvan MD [address] [place] [address] PCP - General 04/08/25 Uli Salcedo PA [address] [place] [address] Referring Physician 02/03/25 documented as of this encounter
--- OUTSIDE RECORDS SUMMARY | 2025-10-07 10:06 | XMS_ITS | Encounter Summary ---
Author Organization [facility] Address [address] [place] [address] Care Team Providers Care Pole Sander Operator Name Role Phone Uli Salcedo Unavailable [phone] Rad Galvan MD Primary Care Provider [phone] Reason for Visit * Reason Onset Date Comments HCN - Patient Message 08/09/2025 Encounter Details Date Type Department Care Team (Late st Contact Info) Description 08/09/2025 Telephone [facility] [place] [address] [facility] [place] [phone] Elvin Schuler MD [address] [place] [address] HCN - Patient Message Social [...] Jerry reported she was currently admitted to [facility]. She is aware to contact me once d/c and will request d/c summary. * Telephone Encounter - Mary Ann Pugh - 08/09/2025 8:47 AM EDT Clinical Concern/Question Reason for Call: pt would like to speak to yaritza. She is currently in admitted to the hospital and would like to speak to her about her admission. Best contact number: [phone] (mobile) Optimal time of day to reach caller: ANYTIME Additional comments/information from caller: None Note: Please do not reply to this message. Follow-up communication and further actions as a result of this message need to be communicated with the patient directly, if the patient is not active onMyChart. If the patient is active on MyChart, they will receive notification of the communication/outcome via Minefoldt. documented in this encounter Plan of Treatment Upcoming Encounters Date Type Department Care Team (Late st Contact Info) Description 10/17/2025 11:40 AM EST Office Visit [facility] Nephrology, Bone & Mineral Metabolism [address] [facility], [address] [place] [address] Azael Mooney MD [address] [place] [address] 01/13/2026 9:30 AM EST Office Visit [facility] [place] [address] [facility] [place] [address] Elvin Schuler MD [address] [place] [address] documented as of this encounter [...] documented as of this encounter Care Teams Pole Sander Operator Relationship Specialty Start Date End Date Rad Galvan MD [address] [place] [address] PCP - General 04/08/25 Uli Salcedo PA [address] [place] [address] Referring Physician 02/03/25 documented as of this encounter
--- OUTSIDE RECORDS SUMMARY | 2025-10-07 10:06 | XMS_ITS | Encounter Summary ---
Author Organization [facility] Address [address] [place] [address] Care Team Providers Care Work Environment Safety Inspector Name Role Phone Andrew Lee MD Primary Care Provider [phone] Uli Salcedo Unavailable [phone] Rad Galvan MD Primary Care Provider [phone] Encounter Details Date Type Department Care Team (Late Contact Info) Description 01/11/2025 Orders Only External Location [address] [place] [address] Uli Salcedo PA [address] [place], [place] [id number] Social History Tobacco Use Types Packs/Day Years [...] 10/17/2025 11:40 AM EST Office Visit [facility] Nephrology, Bone & Mineral Metabolism [address] [facility], [address] [place] [address] Azael Mooney MD [address] [place] [address] 01/13/2026 9:30 AM EST Office Visit [facility] [place] [address] [place] [address] Elvin Schuler MD [address] [place] [address] documented as of this encounter Procedures Procedure [...] on filedocumented in this encounter Care Teams Work Environment Safety Inspector Relationship Specialty Start Date End Date Andrew Lee MD [address] [place] [address] [address] [place] [address] PCP - General 04/06/21 04/07/25 Rad Galvan MD [address] [place] [address] PCP - General 04/08/25 Uli Salcedo PA [address] [place] [address] Referring Physician 02/03/25 documented as of this encounter
--- OUTSIDE RECORDS SUMMARY | 2025-10-07 10:06 | XMS_ITS | Encounter Summary ---
Author Organization [facility] Address [address] [place] [address] Care Team Providers Care Geophysical Party Chief Name Role Phone Uli Salcedo Unavailable [phone] Rad Galvan MD Primary Care Provider [phone] Encounter Details Date Type Department Care Team (Late Contact Info) Description 08/09/2025 Orders Only [facility] [place] [facility] [address] [place] [address] Linda Garcia, RN CH-ADULT ECMO Chronic combined [...] Description 10/17/2025 11:40 AM EST Office Visit [facility] Nephrology, Bone & Mineral Metabolism [address] [facility], [address] [place] [address] Azael Mooney MD [address] [place] [address] 01/13/2026 9:30 AM EST Office Visit [facility] [place] [address] [place] [address] Elvin Schuler MD [address] [place] [address] Scheduled Orders Name Type Priority [...] documented as of this encounter Care Teams Geophysical Party Chief Relationship Specialty Start Date End Date Rad Galvan MD [address] [place] [address] PCP - General 04/08/25 Uli Salcedo PA [address] [place] [address] Referring Physician 02/03/25 documented as of this encounter
--- OUTSIDE RECORDS SUMMARY | 2025-10-07 10:06 | XMS_ITS | Encounter Summary ---
Author Organization [facility] Address [address] [place] [address] Care Team Providers Care Quantity Surveyor Name Role Phone Uli Salcedo Unavailable [phone] Rad Galvan MD Primary Care Provider [phone] Reason for Referral * Home Health (Routine) - Authorized Specialty Diagnoses / Procedures Referred By Regan greene Referred To Contact Home Health Services Diagnoses Chronic combined systolic and diastolic congestive heart failure Chika Orellana APRN [address] [place] [address] Phone: tel: fax: Referral ID Status Reason Start Date Expiration Date Visits Requested Visits Authorized [id number] Authorized Specialty Services Required 04/07/2027 [id number] Encounter Details Date Type Department Care Team (Late st Contact Info) Description 10/06/2025 Telephone [facility] [address] [facility] [place] [address] Chika Orellana APRN [address] [place] [address] Social History Tobacco Use Types [...] Addendum Note - Neptali Johnson RN - 10/07/2025 8:57 AM ESTAddended by: NEPTALI JOHNSON on: 10/07/2025 08:57 AM Modules accepted: Orders * Telephone Encounter - Neptali Johnson RN - 10/07/2025 8:54 AM EST Contacted [facility] infusion and spoke to Francine. Stated able to come in today for outpatient infusion. Contacted Ms newmansami and ANNAMARIE mendoza. Advised to repeat labs again on Friday. Hold am bumex and can take dose this afternoon * Telephone Encounter - Neptali Johnson RN - 10/06/2025 4:05 PM EST Returned call to Asmita at pharmacy. Asmita stated Ms Alcantar has orders for metolazone 5mg EOD that was sent in by Mavis goodman on 09/08. Discussed with Chika Orellana APRN. Advised if she has alreadybeen taking metolazone EOD, with weight gain, can order IV bumex 4mg once. Attempted to contact [facility] to scheduled outpatient infusion tomorrow. Infusion center closed after 4. Will reattempt in am. Advised MS Alcantar to not take am dose of Bumex tomorrow in am until I call to let her know if able to schedule for outpatient diuretics. Orders for IV diuretics sent to conor and janeth/raffy in am. Ms alcantar voiced understanding * Telephone Encounter - AvilesMami barajas Elmo - 10/06/2025 3:26 PM EST Clinical Concern/Question Reason for Call: [facility] in [place] called re: Metolazone 5 mg is already in pt's pill backs for every other day, previously prescribedby another electrostatic paint operator in [place]. Caller received a new order for pt to take the med 1X today and 1X tomorrow and then as needed. Could you please clarify if this new order? Best contact number: [phone] Asmita. Please call the main number back if no answer on this extension. Optimal time of day to reach caller: ANYTIME Additional comments/information from caller: Caller also said the pt is now using new store, [employer] [address] in [place] [address] . Note: Please do not reply to this message. Follow-up communication and further actions as a result of this message need to be communicated with the patient directly, if the patient is not active onMyChart. If the patient is active on MyChart, they will receive notification of the communication/outcome via [employer]. documented in this encounter Plan of Treatment Upcoming Encounters Date Type Department Care Team (Late st Contact Info) Description 10/17/2025 11:40 AM EST Office Visit [facility] Nephrology, Bone & Mineral Metabolism [address] [address], [address] [place] [address] Azael Mooney MD [address] [place] [address] 01/13/2026 9:30 AM EST Office Visit [facility] [address] [facility]. [address] [place] [address] Elvin Schuler MD [address] [place] [address] Scheduled Orders Name Type Priority Associated Diagnoses Orde r Schedule Basic Metabolic Panel, Plasma Lab Routine Chronic combined systolic and diastolic congestive heart failure Expected: 10/07/2025 (Approximate), Expires: 04/10/2027 N-Terminal Probnp, Plasma Lab Routine Chronic combined systolic and diastolic congestive heart failure Expected: 10/07/2025 (Approximate), Expires: 04/10/2027 Scheduled Referrals Name Type Priority Associated Diagnoses Order Schedule Ambulatory referral to Home Health Outpatient Referral Routine Chronic combined systolic and diastolic congestive heart failure 1 Occurrences starting 10/06/2025 until 04/09/2027 documented as of this encounter Visit Diagnoses [...] documented as of this encounter Care Teams Quantity Surveyor Relationship Specialty Start Date End Date Rad Galvan MD [address] [place] [address] PCP - General 04/08/25 Uli Salcedo PA [address] [place] [address] Referring Physician 02/03/25 documented as of this encounter
--- OUTSIDE RECORDS SUMMARY | 2025-10-07 10:06 | XMS_ITS | Encounter Summary ---
Author Organization [facility] Address [address] [place] [address] Care Team Providers Care Weatherization Director Name Role Phone Uli Salcedo Unavailable [phone] Rad Galvan MD Primary Care Provider [phone] Encounter Details Date Type Department Care Team (Late st Contact Info) Description 10/06/2025 Telephone [facility] [place] [address] [facility] [address], [address] [place] [address] Chika Orellana, TERMINAL BLOCK ASSEMBLER [address] [place] [address] Social History Tobacco Use Types [...] Telephone Encounter - Yaritza Johnson RN - 10/06/2025 11:01 AM EST Returned call to pharmacy. Advised metolazone 5mg PRN today and tomorrow and then as needed directed by office documented in this encounter Plan of Treatment Upcoming Encounters Date Type Department Care Team (Late st Contact Info) Description 10/17/2025 11:40 AM EST Office Visit [facility] Nephrology, Bone & Mineral Metabolism [address] [facility], [address] [place] [address] Azael Mooney MD [address] [place] [address] 01/13/2026 9:30 AM EST Office Visit [facility] [place] [facility] [address] [facility] [place] [address] Elvin Schuler MD [address] [place] [address] documented as of this encounter [...] documented as of this encounter Care Teams Weatherization Director Relationship Specialty Start Date End Date Rad Galvan MD [address] [place] [address] PCP - General 04/08/25 Uli Salcedo PA [address] [place] [address] Referring Physician 02/03/25 documented as of this encounter
--- OUTSIDE RECORDS SUMMARY | 2025-10-07 10:06 | XMS_ITS | Encounter Summary ---
Author Organization [facility] Address [address] [place] [address] Care Team Providers Care Printed Circuit Board Panels Developer Name Role Phone Uli Salcedo Unavailable [phone] Rad Galvan MD Primary Care Provider [phone] Encounter Details Date Type Department Care Team (Late st Contact Info) Description 09/15/2025 Telephone [facility] [place] [address] [facility] [place] [address] Elvin Schuler MD [address] [place] [address] Social History Tobacco Use [...] Type: Cardiac Clearance for 09/21/25 Colonoscopy at [facility] Due Date: 09/15/25 Send To: [facility] [phone] Atn: Mavis [place] contact number: [phone] Optimal time of day to reach caller: ANYTIME Additional comments/information from caller: None Note: Please do not reply to this message. Follow-up communication and further actions as a result of this message need to be communicated with the patient directly, if the patient is not active onMyChart. If the patient is active on MyChart, they will receive notification of the communication/outcome via [employer]. documented in this encounter Plan of Treatment Upcoming Encounters Date Type Department Care Team ([facility] st Contact Info) Description 10/17/2025 11:40 AM EST Office Visit [facility] Nephrology, Bone & Mineral Metabolism [address] [facility] [place], [address] [place] [address] Azael Mooney MD [address] [place] [address] 01/13/2026 9:30 AM EST Office Visit [facility] [place] [facility] [address] [facility]. [address] [place] [address] Elvin Schuler MD [address] [place] [address] documented as of this encounter [...] documented as of this encounter Care Teams Printed Circuit Board Panels Developer Relationship Specialty Start Date End Date Rad Galvan MD [address] [place] [address] PCP - General 04/08/25 Uli Salcedo PA [address] [place] [address] Referring Physician 02/03/25 documented as of this encounter
--- OUTSIDE RECORDS SUMMARY | 2025-10-07 10:06 | XMS_ITS | Encounter Summary ---
Author Organization [facility] Address [address] [place] [address] Care Team Providers Care Client Finance Analyst Name Role Phone Uli Salcedo Unavailable [phone] Rad Galvan MD Primary Care Provider [phone] Encounter Details Date Type Department Care Team (Late Contact Info) Description 10/03/2025 Orders Only [facility] [place] [facility] [address] [place] [address] Linda Garcia, RN CH-ADULT ECMO Chronic combined [...] 10/17/2025 11:40 AM EST Office Visit [facility] Nephrology, Bone & Mineral Metabolism [address] [facility], [address] [place] [address] Azael Mooney MD [address] [place] [address] 01/13/2026 9:30 AM EST Office Visit [facility] [place] [facility] [address] [place] [address] Elvin Schuler MD [address] [place] [address] Scheduled Orders Name Type Priority [...] documented as of this encounter Care Teams Client Finance Analyst Relationship Specialty Start Date End Date Rad Galvan MD [address] [place] [address] PCP - General 04/08/25 Uli Salcedo PA [address] [place] [address] Referring Physician 02/03/25 documented as of this encounter
--- OUTSIDE RECORDS SUMMARY | 2025-10-07 10:06 | XMS_ITS | Encounter Summary ---
Author Organization [facility] Address [address] [place] [address] Care Team Providers Care Dye Padder Operator Name Role Phone Rad Galvan MD [...] Description 10/31/2025 11:00 AM EST Office Visit [facility] FAMILY MEDICINE [address] [facility] [place] [place] [address] Rad Galvan MD [address] [place] [address] documented as of this encounter Visit Diagnoses Not on filedocumented in this encounter Additional Health Concerns Assessment Noted Time PHQ-2 Depression Total Score: 1 02/17/20 24 10:24 AM EDT documented as of this encounter Care Teams Dye Padder Operator Relationship Specialty Start Date End Date Rad Galvan MD [address] [place] [address] PCP - General Family Medicine 04/15/22 documented as of this encounter
--- OUTSIDE RECORDS SUMMARY | 2025-10-07 10:06 | XMS_ITS | Encounter Summary ---
Author Organization [facility] Address [address] [place] [address] Care Team Providers Care Mortgage Loan Assistant Name Role Phone Uli Salcedo Unavailable [phone] Rad Galvan MD Primary Care Provider [...] 10/17/2025 11:40 AM EST Office Visit [facility] Nephrology, Bone & Mineral Metabolism [address] [facility] [address] [facility], [address] [place] [address] Azael Mooney MD [address] [place] [address] 01/13/2026 9:30 AM EST Office Visit [facility] [place] [facility] [address] [place] [address] Elvin Schuler MD [address] [place] [address] documented as of this encounter Visit Diagnoses [...] documented as of this encounter Care Teams Mortgage Loan Assistant Relationship Specialty Start Date End Date Rad Galvan MD [address] [place] [address] PCP - General 04/08/25 Uli Salcedo PA [address] [place] [address] Referring Physician 02/03/25 documented as of this encounter
--- OUTSIDE RECORDS SUMMARY | 2025-10-07 10:06 | XMS_ITS | Encounter Summary ---
Author Organization [facility] Address [address] [place] [address] Care Team Providers Care Experimental Outboard Motors Mechanic Name Role Phone Uli Salcedo Unavailable [phone] Rad Galvan MD Primary Care Provider [phone] Encounter Details Date Type Department Care Team [...] 10/17/2025 11:40 AM EST Office Visit Professional [facility] [place] Nephrology, Bone & Mineral Metabolism [address] [facility], [address] [place] [address] Azael Mooney MD [address] [place] [address] 01/13/2026 9:30 AM EST Office Visit [facility] [place] [facility] [address] [place] [address] Elvin Schuler MD [address] [place] [address] documented as of this encounter Visit Diagnoses [...] documented as of this encounter Care Teams Experimental Outboard Motors Mechanic Relationship Specialty Start Date End Date Rad Galvan MD [address] [place] [address] PCP - General 04/08/25 Uli Salcedo PA [address] [place] [address] Referring Physician 02/03/25 documented as of this encounter
--- OUTSIDE RECORDS SUMMARY | 2025-10-07 10:06 | XMS_ITS | Encounter Summary ---
Author Organization [facility] Address [address] [place] [address] Care Team Providers Care Transcript Evaluator Name Role Phone Uli Salcedo Unavailable [phone] Rad Galvan MD Primary Care Provider [phone] Encounter Details Date Type Department Care Team [...] 10/17/2025 11:40 AM EST Office Visit Professional [facility] Nephrology, Bone & Mineral Metabolism [address] [facility], [address] [place] [address] Azael Mooney MD [address] [place] [address] 01/13/2026 9:30 AM EST Office Visit [facility] [place] [facility] [address] [place] [address] Elvin Schuler MD [address] [place] [address] documented as of this encounter Visit Diagnoses [...] documented as of this encounter Care Teams Transcript Evaluator Relationship Specialty Start Date End Date Rad Galvan MD [address] [place] [address] PCP - General 04/08/25 Uli Salcedo PA [address] [place] [address] Referring Physician 02/03/25 documented as of this encounter
--- OUTSIDE RECORDS SUMMARY | 2025-10-07 10:07 | XMS_ITS | Encounter Summary ---
Author Organization [facility] Address [address] [place] [address] Care Team Providers Care Bottling Machine Operator Name Role Phone Uli Salcedo Unavailable [phone] Rad Galvan MD Primary Care Provider [phone] Reason for Visit * Reason Onset Date Comments HCN - Patient Message 10/05/2025 Encounter Details Date Type Department Care Team (Late st Contact Info) Description 10/05/2025 Telephone [facility] [place] [facility] [address] [facility] [place] [address] Elvin Schuler MD [address] [place] [address] HCN - Patient Message Social [...] give pt a call. Best contact number: [phone] (mobile) Optimal time of day to reach caller: ANYTIME Additional comments/information from caller: None Note: Please do not reply to this message. Follow-up communication and further actions as a result of this message need to be communicated with the patient directly, if the patient is not active onMyChart. If the patient is active on MyChart, they will receive notification of the communication/outcome via [employer]. documented in this encounter Plan of Treatment Upcoming Encounters Date Type Department Care Team (Late st Contact Info) Description 10/17/2025 11:40 AM EST Office Visit [facility] Nephrology, Bone & Mineral Metabolism [address] [facility], [address] [place] [address] Azael Mooney MD [address] [place] [address] 01/13/2026 9:30 AM EST Office Visit [facility] [place] [facility] [address] [facility]. [address] [place] [address] Elvin Schuler MD [address] [place] [address] documented as of this encounter Visit Diagnoses [...] documented as of this encounter Care Teams Bottling Machine Operator Relationship Specialty Start Date End Date Rad Galvan MD [address] [place] [address] PCP - General 04/08/25 Uli Salcedo PA [address] [place] [address] Referring Physician 02/03/25 documented as of this encounter
--- OUTSIDE RECORDS SUMMARY | 2025-10-07 10:07 | XMS_ITS | Encounter Summary ---
Author Organization [facility] Address [address] [place] [address] Care Team Providers Care Mitten Sewer Name Role Phone Rad Galvan MD Primary Care Provider + Encounter Details Date Type Department Care Team (Late st Contact Info) Description 07/18/2025 Telephone [facility]ILY MEDICINE [address] [place] [address] Rad Galvan MD [address] [place] [address] Social History Tobacco Use Types [...] Description 10/31/2025 11:00 AM EST Office Visit [facility]ILY MEDICINE [address] [place] [address] Rad Galvan MD [address] [place] [address] documented as of this encounter Visit Diagnoses Not on filedocumented in this encounter Additional Health Concerns Assessment Noted Time PHQ-2 Depression Total Score: 1 02/17/20 24 10:24 AM EDT documented as of this encounter Care Teams Mitten Sewer Relationship Specialty Start Date End Date Rad Galvan MD [address] [place] [address] PCP - General Family Medicine 04/15/22 documented as of this encounter
--- OUTSIDE RECORDS SUMMARY | 2025-10-07 10:07 | XMS_ITS | Encounter Summary ---
Author Organization [facility] Address [address] [place] [address] Care Team Providers Care Cuff Turner Name Role Phone Uli Salcedo Unavailable [phone] Rad Galvan MD Primary Care Provider [phone] Encounter Details Date Type Department Care Team [...] 10/17/2025 11:40 AM EST Office Visit Professional [facility] [place] Nephrology, Bone & Mineral Metabolism [address], [address] [place] [address] Azael Mooney MD [address] [place] [address] 01/13/2026 9:30 AM EST Office Visit [facility] [place] [facility] [address] [place] [address] Elvin Schuler MD [address] [place] [address] documented as of this encounter Visit Diagnoses [...] documented as of this encounter Care Teams Cuff Turner Relationship Specialty Start Date End Date Rad Galvan MD [address] [place] [address] PCP - General 04/08/25 Uli Salcedo PA [address] [place] [address] Referring Physician 02/03/25 documented as of this encounter
--- OUTSIDE RECORDS SUMMARY | 2025-10-07 10:07 | XMS_ITS | Encounter Summary ---
Author Organization [facility] Address [address] [place] [address] Care Team Providers Care Labor Mediator Name Role Phone Uli Salcedo Unavailable [phone] Rad Galvan MD Primary Care Provider [phone] Encounter Details Date Type Department Care Team [...] 10/17/2025 11:40 AM EST Office Visit [facility] [place] Nephrology, Bone & Mineral Metabolism [address] [facility], [address] [place] [address] Azael Mooney MD [address] [place] [address] 01/13/2026 9:30 AM EST Office [facility] [place] [facility] [address] [place] [address] Elvin Schuler MD [address] [place] [address] documented as of this encounter Visit Diagnoses [...] Date End Date Rad Galvan MD [address] [place] [address] PCP - General 04/08/25 Uli Salcedo PA [address] [place] [address] Referring Physician 02/03/25 documented as of this encounter
[2025-10-07 10:22] VITALS: BP 98/42; PULSE 69; RESP 17; TEMP 36.8; O2SAT 96
[2025-10-07] MEDS: BUMETANIDE 1MG/4ML VIAL 4 MG IV (10:22)
== END 2025-10-07 23:59 | disposition home or self-care (01) ==
LOC: INF 10:02
PROVIDERS: PCP Family Medicine; Visit Provider Nurse Practitioner
DX: I50.42 Chronic combined systolic (congestive) and diastolic (congestive) heart failure (principal)
CPT/HCPCS: 96374; J1939

== ENCOUNTER 2025-10-08 15:37 | Observation (INO) | payer MEDICARE, SELFPAY ==
[2025-10-08 15:41] VITALS: BP 133/45; PULSE 74; RESP 18; TEMP 36.9; O2SAT 100; BMI 38.1
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
--- NOTE | 2025-10-08 16:42 | XR_ITS ---
PROCEDURE INFORMATION: Exam: XR Left Foot Exam date and time: 10/08/2025 4:54 PM Age: 70 years old Clinical indication: Pain; Foot; Left; Additional info: Left foot pain TECHNIQUE: Imaging protocol: Radiologic exam of the left foot. Views: 3 or more views. COMPARISON: CR XR FOOT LT MIN 3V 02/01/2024 8:13 PM FINDINGS: Bones/joints: Mild hallux valgus deformity. Degenerative changes in the 1st metatarsal phalangeal joint and IP joint. Lucency through the lateral proximal aspect of the 5th metatarsal consistent with unhealed likely acute fracture.. Soft tissues: Soft tissue swelling adjacent to the fracture IMPRESSION: 1. Degenerative changes in the 1st metatarsal phalangeal joint and IP joint. 2. Lucency through the lateral proximal aspect of the 5th metatarsal consistent with unhealed likely acute fracture..
--- NOTE | 2025-10-08 16:42 | XR_ITS ---
PROCEDURE INFORMATION: Exam: XR Chest Exam date and time: 10/08/2025 4:54 PM Age: 70 years old Clinical indication: Shortness of breath; Additional info: SOA TECHNIQUE: Imaging protocol: Radiologic exam of the chest. Views: 1 view. COMPARISON: CR XR CHEST PORTABLE 09/08/2025 8:27 AM FINDINGS: Tubes, catheters and devices: Transvenous pacemaker leads in the heart. Left AICD Lungs: Unremarkable. No consolidation. Pleural spaces: Unremarkable. No pleural effusion. No pneumothorax. Heart/Mediastinum: Stable cardiac silhouette Bones/joints: Unremarkable. IMPRESSION: No acute findings. Stable appearance of the chest
--- NOTE | 2025-10-08 16:47 | ECG_ITS ---
APPROVED REPORT Exam: Resting ECG HR:70 bpm ECG Measurements Heart Rate 70 AXES QRSd 150 QRS 238 QT 462 T 26 QTc 482 Conclusion Ventricular paced rhythm No STEMI Electronically signed by : Jose A Block, 10/09/2025 00:38:55
[2025-10-08 17:41] LABS: Chloride 86 mmol/L (98-107); Potassium 4.6 mmoL/L (3.5-5.1); Sodium 128 mmol/L (136-145)
[2025-10-08 17:43] LABS: Blood Urea Nitrogen 46 mg/dl (7-17); Creatinine Clearance Estimated 35 mL/min (50-200); Creatinine,Serum 2.20 mg/dl (0.52-1.04); Estimated Glomerular Filt Rate 22 ml/min (>60); GFR (African American) 27 ML/MIN (>60); Hematocrit 29.9 % (37.0-47.0); Hemoglobin 10.3 g/dL (12.2-16.2); Immature Granulocytes % 0.1 %; Mean Corpuscular HGB Conc 34.4 g/dL (31.8-35.4); Mean Corpuscular Hemoglobin 35.3 pg (27.0-31.2); Mean Corpuscular Volume 102.4 fl (81-99); Nucleated Red Blood Cells % 0 %; Platelet Count 168 K/mm3 (142-424); Red Blood Count 2.92 M/mm3 (4.20-5.40); Red Cell Distribution Width-SD 55.8 fL; White Blood Count 6.8 K/mm3 (4.8-10.8)
[2025-10-08 17:44] LABS: Alanine Aminotransferase 23 U/L (12-78); Alkaline Phosphatase 329 U/L (38-126); Aspartate Amino Transferase 38 U/L (14-36); Bilirubin,Total 0.8 mg/dl (0.2-1.3); Calcium 8.8 mg/dl (8.4-10.2); Carbon Dioxide 32 mmol/L (22.0-30.0); Glucose 123 mg/dl (74-100); Magnesium 2.0 mg/dl (1.6-2.3); Total Protein,Serum 8.0 g/dl (6.3-8.2)
[2025-10-08 17:48] LABS: Anion Gap 14.6 mEq/L (5-15)
[2025-10-08 17:53] LABS: NT Pro Brain Natriuretic Pep. 1060 pg/mL (0-125)
[2025-10-08 18:05] LABS: Troponin I < 0.01 ng/ml (0.00-0.034)
[2025-10-08 18:31] LABS: Microscopic, Urine URINE MICROSCOPIC (MICROSCOPIC)
[2025-10-08 18:35] LABS: Bilirubin,Urine Negative (Negative); Color,Urine YELLOW (Yellow); Glucose,Urine (UA) 1+ (Negative); Ketones,Urine Negative (Negative); Leukocyte Esterase,Urine Negative (Negative); PH,Urine 7.5 (5.0-8.5); Protein,Urine Negative (Negative); Specific Gravity, Urine 1.015 (1.005-1.030); Urobilinogen,Urine 0.2 EU/dl (0.2)
--- NOTE | 2025-10-08 18:39 | PC.NURSE ---
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
[2025-10-08 18:48] VITALS: BP 125/62; PULSE 70; O2SAT 100
[2025-10-08 19:03] LABS: Albumin Level 4.3 g/dl (3.5-5.0); Albumin/Globulin Ratio 1.2 (1.1-1.8); Globulin 3.7 g/dL (1.3-3.2)
--- NOTE | 2025-10-08 19:19 | PC.NURSE ---
report called to Soha GONZALES at [phone]
[2025-10-08 19:30] LABS: Bacteria,Urine 1+ /lpf; WBC,Urine Occasional #/hpf (0-3)
[2025-10-08 19:31] VITALS: BP 145/71; PULSE 75; RESP 18; TEMP 36.8; O2SAT 100
[2025-10-08 20:00] VITALS: BP 135/77; PULSE 96; RESP 16; TEMP 36.8; O2SAT 94
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
[2025-10-08] MEDS: ACETAMINOPHEN 325MG TAB 650 MG PO (20:45)
[2025-10-08] MEDS: METHOCARBAMOL 500MG TABLET 500 MG PO (20:45)
[2025-10-08 20:49] LABS: POC Glucose,Bedside 129 gm/dL (70-110)
[2025-10-08 21:44] LABS: Troponin I < 0.01 ng/ml (0.00-0.034)
[2025-10-09] VITALS: BP 102/52; PULSE 70; PULSE 72; RESP 20; TEMP 36.6; O2SAT 95
[2025-10-09 01:43] LABS: Troponin I < 0.01 ng/ml (0.00-0.034)
[2025-10-09 04:00] VITALS: BP 110/61; PULSE 70; RESP 16; TEMP 36.3; O2SAT 97; BMI 38.0
--- NOTE | 2025-10-09 04:49 | PC.NURSE ---
Addendum entered by Missy Bella RN 10/09/25 05:14: dexcom read 136 at 0500 Original Note: patient has dexcom, at 2030 FSBS 129, patient dexcom read 128. hospitalist stated it was ok to use dexcom for glucose readings.
[2025-10-09 07:53] LABS: Hematocrit 28.9 % (37.0-47.0); Hemoglobin 9.8 g/dL (12.2-16.2); Immature Granulocytes % 0.2 %; Mean Corpuscular HGB Conc 33.9 g/dL (31.8-35.4); Mean Corpuscular Hemoglobin 34.3 pg (27.0-31.2); Mean Corpuscular Volume 101.0 fl (81-99); Nucleated Red Blood Cells % 0 %; Platelet Count 162 K/mm3 (142-424); Red Blood Count 2.86 M/mm3 (4.20-5.40); Red Cell Distribution Width-SD 56.0 fL; White Blood Count 5.4 K/mm3 (4.8-10.8)
[2025-10-09 08:00] VITALS: BP 116/61; PULSE 70; RESP 16; TEMP 36.4; O2SAT 97
[2025-10-09 08:38] LABS: Alanine Aminotransferase 20 U/L (12-78); Albumin Level 4.1 g/dl (3.5-5.0); Albumin/Globulin Ratio 1.4 (1.1-1.8); Alkaline Phosphatase 302 U/L (38-126); Anion Gap 11.0 mEq/L (5-15); Aspartate Amino Transferase 37 U/L (14-36); Bilirubin,Total 0.9 mg/dl (0.2-1.3); Blood Urea Nitrogen 45 mg/dl (7-17); Calcium 8.9 mg/dl (8.4-10.2); Carbon Dioxide 28 mmol/L (22.0-30.0); Chloride 88 mmol/L (98-107); Creatinine Clearance Estimated 39 mL/min (50-200); Creatinine,Serum 2.00 mg/dl (0.52-1.04); Estimated Glomerular Filt Rate 25 ml/min (>60); GFR (African American) 30 ML/MIN (>60); Globulin 2.9 g/dL (1.3-3.2); Glucose 111 mg/dl (74-100); Potassium 4.0 mmoL/L (3.5-5.1); Sodium 123 mmol/L (136-145); Total Protein,Serum 7.0 g/dl (6.3-8.2)
[2025-10-09 09:08] VITALS: PULSE 72
[2025-10-09] MEDS: BUMETANIDE 1 MG TABLET 2 MG PO (09:08)
[2025-10-09] MEDS: METHOCARBAMOL 500MG TABLET 500 MG PO ×2 (09:08→14:43)
[2025-10-09] MEDS: DIGOXIN 0.125MG TABLET 125 MCG PO (09:08)
[2025-10-09] MEDS: DAPAGLIFLOZIN PROPANEDIOL 10 MG TABLET PO (09:08)
[2025-10-09] MEDS: SPIRONOLACTONE 25MG TABLET 25 MG PO (09:08)
[2025-10-09] MEDS: PANTOPRAZOLE 40MG TABLET 40 MG PO (09:08)
[2025-10-09] MEDS: IRBESARTAN 75MG TABLET 37.5 MG PO (09:08)
[2025-10-09] MEDS: METOPROLOL SUCCINATE XL 25MG TABLET 12.5 MG PO (09:09)
[2025-10-09] MEDS: humaLOG MIX 75/25 3ML FLEXPEN 50 UNIT SUBCUT (09:11)
[2025-10-09 11:23] LABS: POC Glucose,Bedside 152 gm/dL (70-110)
[2025-10-09 11:23] LABS: POC Glucose,Bedside 234 gm/dL (70-110)
[2025-10-09] MEDS: humaLOG 100 UNITS/ML 10ML VIAL (SSI) SUBCUT (11:47)
[2025-10-09 12:00] VITALS: BP 122/56; PULSE 70; PULSE 72; RESP 15; TEMP 36.4; O2SAT 96
--- NOTE | 2025-10-09 13:51 | EXP.DC.SUM ---
General Admission date:: 10/08/25 Discharge date: 10/09/25 HPI HPI HPI: 70-year-old female patient with significant history of chronic combined congestive heart failure. Presents to ER today with complaints of cramping type pain in bilateral lower extremities right worse than left. She describes this as severe pain, that her muscle tenses up and gets hard. Denies shortness of breath. Denies worsening edema. She did have symptoms of shortness of breath with activity yesterday. She normally takes 2 mg of Bumex daily. She reports she was instructed to take oral Bumex 2 pills twice a day yesterday in addition to coming into the hospital for an infusion of 4 mg of Bumex. These recommendations were completed and she did diurese. She states she lost 5 pounds in the 24 hours. She is also noted to have a bruise on the top of her left foot and imaging shows possible acute fracture. Patient denies trauma or injury. Complains of some pain in the left foot but it is minimal compared to the right leg. Currently she denies chest pain or shortness of breath. Still having the cramping sensation in the right leg. She states she takes all her medications as prescribed although she cannot name them to me. Records Indicate she takes bumetanide, Farxiga, digoxin, metolazone, spironolactone and rivaroxaban in addition to others. Hospital Course Hospital Course Hospital Course: Sara Edwards is a 70-year-old female with medical history significant for HFrEF 30% with grade 3 diastolic dysfunction with BiV ICD (being considered for transplant at ), CAD, A-fib, CKD stage IIIb, type 2 diabetes, seizure disorder, GERD who presents with lower extremity pain after diuresis the day before presentation. Admitted for treatment of leg pain and cramping of the lower extremities. She was given extra diuretics on the day before admission due to some increase swelling and shortness of breath. Received both IV and oral Bumex. Received a total of about 6 mg. She diuresed off 5 pounds and was no longer short of breath and had improvement in the swelling in her legs. She was incidentally found to have a bruise to the left foot which x-ray reveals an acute fracture. Patient denies trauma or injury. After discussion with the ER physician patient was accepted for admission. Monitored on telemetry with no events. Responded well to methocarbamol for leg pain. Improved the pain in her foot as well. Suspect pain due to overdiuresis. Given her improvement clinically, will discharge home to continue treatment for chronic conditions. Problems addressed as follows: Leg cramping - Seems she had an exacerbation of her heart failure yesterday which was treated outpatient with diuretics however with significant diuresis she began to have severe leg cramping. States she was having difficulty getting around due to the cramping. We will monitor her electrolytes and monitor her on telemetry. Trend troponins. Tolerated methocarbamol. Continue at discharge. Leg cramping likely multifactorial from electrolyte shifts, fluid shifts, and related to her anemia. #Chronic HFrEF 30% #Grade 3 diastolic dysfunction #BiV ICD #Hypertension #CAD #CKD stage IIIb ? Patient appears relatively euvolemic on exam. BNP of just over thousand which is low for her. Held diuretics at admission. Okay to resume her regular regimen at discharge. No oxygen requirement during admission. Resume Bumex 2 mg daily on day of discharge, digoxin 125 mcg daily, metolazone is on at this time. Continue metoprolol succinate 12.5 mg daily, spironolactone 25 mg twice daily, and valsartan 40 mg daily. - Kidney function stable with creatinine 2.0, suspect this is about her baseline. Creatinine is below this are likely diluted. Her creatinine as she is more dry has been noted to run 2.0-2.4. #Compensated cirrhosis: Seen previously on CAT scans of her abdomen and pelvis. Liver has cirrhotic features. Also has been noted to have ascites and anasarca. Likely from fatty liver disease. Denies much alcohol use. INR 1.27, MELD 25. Further management per GI as an outpatient. #A-fib: Currently rate controlled. Continue home digoxin 125 mcg and Xarelto 15 mg daily. #Multinodal thyroid gland #Extrathyroid nodule 2 cm left ? Noted on previous CT chest. Will need further evaluation in outpatient basis. Thyroid function tests have consistently been normal #Type 2 diabetes ? Hemoglobin A1c 7.0% in June. Treated with sliding scale insulin during admission. Resume home regimen at discharge. Blood sugars controlled during admission. #Seizure disorder ? Has not had a seizure in over 40 years. Continue decrease phenobarbital dose of 32.4 mg nightly as she has had confusion from higher doses previously. #GERD: Continue PPI. #Obesity: Complicates all aspects of care. Total time spent on discharge 33 minutes in counseling, documentation, chart review, and direct care with patient. Exam Data for Last 24 hours Vital signs and Labs for Last 24 Hours: Temp Pulse Resp BP Pulse Ox O2 Del Method 97.6 F 72 15 122/56 L 96 Room Air 10/09/25 12:00 10/09/25 12:00 10/09/25 12:00 10/09/25 12:00 10/09/25 12:00 10/09/25 12:36 Laboratory Results - last 24 hr 10/08/25 17:27: WBC 6.8, RBC 2.92 L, Hgb 10.3 L, Hct 29.9 L, MCV 102.4 H, MCH 35.3 H, MCHC 34.4, RDW 14.7, Plt Count 168, MPV 9.9, Neut % (Auto) 73.3, Lymph % (Auto) 16.8, Meagher % (Auto) 7.3, Eos % (Auto) 2.2, Baso % (Auto) 0.3, Neut # (Auto) 5.0, Lymph # (Auto) 1.2, Meagher # (Auto) 0.5, Eos # (Auto) 0.2, Baso # (Auto) 0.0, Sodium 128 L, Potassium 4.6, Chloride 86 L, Carbon Dioxide 32 H, Anion Gap 14.6, BUN 46 H, Creatinine 2.20 H D, Estimated Creat Clear 35, Estimated GFR 22 L, Est GFR ( Amer) 27 L D, Glucose 123 H, Calcium 8.8, Magnesium 2.0, Total Bilirubin 0.8, AST 38 H, ALT 23, Alkaline Phosphatase 329 H, Troponin I < 0.01, NT-Pro-B Natriuret Pep 1060 H, Total Protein 8.0, Albumin 4.3, Globulin 3.7 H, Albumin/Globulin Ratio 1.2 10/08/25 18:27: Urine Color Yellow, Urine Appearance Clear, Urine pH 7.5, Ur Specific [place] 1.015, Urine Protein Negative, Urine Glucose (UA) 1+, Urine Ketones Negative, Urine Blood Negative, Urine Nitrate Negative, Urine Bilirubin Negative, Urine Urobilinogen 0.2, Ur Leukocyte Esterase Negative, Urine RBC None, Urine WBC Occasional, Ur Squamous Epith Cells 3-5, Urine Bacteria 1+ 10/08/25 20:31: POC Glucose 129 H 10/08/25 21:05: Troponin I < 0.01 10/09/25 00:58: Troponin I < 0.01 10/09/25 06:28: WBC 5.4, RBC 2.86 L, Hgb 9.8 L, Hct 28.9 L, MCV 101.0 H, MCH 34.3 H, MCHC 33.9, RDW 14.8, Plt Count 162, MPV 9.9, Neut % (Auto) 65.6, Lymph % (Auto) 21.3, Meagher % (Auto) 9.4 H, Eos % (Auto) 2.9, Baso % (Auto) 0.6, Neut # (Auto) 3.6, Lymph # (Auto) 1.2, Meagher # (Auto) 0.5, Eos # (Auto) 0.2, Baso # (Auto) 0.0, Sodium 123 L, Potassium 4.0, Chloride 88 L, Carbon Dioxide 28, Anion Gap 11.0, BUN 45 H, Creatinine 2.00 H, Estimated Creat Clear 39, Estimated GFR 25 L, Est GFR ( Amer) 30 L, Glucose 111 H, Calcium 8.9, Total Bilirubin 0.9, AST 37 H, ALT 20, Alkaline Phosphatase 302 H, Total Protein 7.0, Albumin 4.1, Globulin 2.9, Albumin/Globulin Ratio 1.4 10/09/25 09:15: POC Glucose 234 H 10/09/25 11:16: POC Glucose 152 H I & O for Last 24 hours: Intake & Output 10/06/25 10/07/25 10/08/25 10/09/25 23:59 23:59 23:59 23:59 Intake Total 700 / 700 Output Total 0 / 0 0 / 0 Balance 0 / 460 700 / 700 Weight 91.626 kg 91.49 kg Constitutional Constitutional: no acute distress, morbidly obese, chronically ill appearing and cooperative *Routine HEENT Exam Head: Present normocephalic and atraumatic Eye: Present EOMI and PERRL ENT: Present mucous membranes moist *Routine Neck Exam Neck: Present supple *Routine Respiratory Exam Respiratory: Present CTA bilaterally; Absent accessory muscle use, rhonchi, stridor, wheezes or crackles *Routine Cardiovascular Exam Cardiovascular: Present RRR, Normal S1 and Normal S2; Absent murmur, gallop or rubs *Routine Abdominal Exam Abdominal: Present soft; Absent tenderness *Routine Rectal Exam Patient deferred: visual exam *Routine Exam Patient deferred: external exam *Routine Extremities Exam Extremities: Present edema (1+ to knees bilateral lower extremities) and pulses intact; Absent cyanosis *Routine Skin Exam Skin: Present intact; Absent erythema or wounds *Routine Neurological Exam Neurological: Present alert, oriented X3 and moving all extremities; Absent altered mental status or tremors Routine Psychiatric Exam Psychiatric: Present cooperative and depressed Results Data Completed and Pending Labs on day of discharge: Labs from last 24 hours 10/09/25 10/09/25 10/09/25 11:16 09:15 06:28 WBC 5.4 RBC 2.86 L Hgb 9.8 L Hct 28.9 L MCV 101.0 H MCH 34.3 H MCHC 33.9 RDW 14.8 Plt Count 162 MPV 9.9 Neut % (Auto) 65.6 Lymph % (Auto) 21.3 Meagher % (Auto) 9.4 H Eos % (Auto) 2.9 Baso % (Auto) 0.6 Neut # (Auto) 3.6 Lymph # (Auto) 1.2 Meagher # (Auto) 0.5 Eos # (Auto) 0.2 Baso # (Auto) 0.0 Sodium 123 L Potassium 4.0 Chloride 88 L Carbon Dioxide 28 Anion Gap 11.0 BUN 45 H Creatinine 2.00 H Estimated Creat Clear 39 Estimated GFR 25 L Est GFR ( Amer) 30 L Glucose 111 H POC Glucose 152 H 234 H Calcium 8.9 Magnesium Total Bilirubin 0.9 AST 37 H ALT 20 Alkaline Phosphatase 302 H Troponin I NT-Pro-B Natriuret Pep Total Protein 7.0 Albumin 4.1 Globulin 2.9 Albumin/Globulin Ratio 1.4 Urine Color Urine Appearance Urine pH Ur Specific [place] Urine Protein Urine Glucose (UA) Urine Ketones Urine Blood Urine Nitrate Urine Bilirubin Urine Urobilinogen Ur Leukocyte Esterase Urine RBC Urine WBC Ur Squamous Epith Cells Urine Bacteria 10/09/25 10/08/25 10/08/25 00:58 21:05 20:31 WBC RBC Hgb Hct MCV MCH MCHC RDW Plt Count MPV Neut % (Auto) Lymph % (Auto) Meagher % (Auto) Eos % (Auto) Baso % (Auto) Neut # (Auto) Lymph # (Auto) Meagher # (Auto) Eos # (Auto) Baso # (Auto) Sodium Potassium Chloride Carbon Dioxide Anion Gap BUN Creatinine Estimated Creat Clear Estimated GFR Est GFR ( Amer) Glucose POC Glucose 129 H Calcium Magnesium Total Bilirubin AST ALT Alkaline Phosphatase Troponin I < 0.01 < 0.01 NT-Pro-B Natriuret Pep Total Protein Albumin Globulin Albumin/Globulin Ratio Urine Color Urine Appearance Urine pH Ur Specific [place] Urine Protein Urine Glucose (UA) Urine Ketones Urine Blood Urine Nitrate Urine Bilirubin Urine Urobilinogen Ur Leukocyte Esterase Urine RBC Urine WBC Ur Squamous Epith Cells Urine Bacteria 10/08/25 10/08/25 18:27 17:27 WBC 6.8 RBC 2.92 L Hgb 10.3 L Hct 29.9 L MCV 102.4 H MCH 35.3 H MCHC 34.4 RDW 14.7 Plt Count 168 MPV 9.9 Neut % (Auto) 73.3 Lymph % (Auto) 16.8 Meagher % (Auto) 7.3 Eos % (Auto) 2.2 Baso % (Auto) 0.3 Neut # (Auto) 5.0 Lymph # (Auto) 1.2 Meagher # (Auto) 0.5 Eos # (Auto) 0.2 Baso # (Auto) 0.0 Sodium 128 L Potassium 4.6 Chloride 86 L Carbon Dioxide 32 H Anion Gap 14.6 BUN 46 H Creatinine 2.20 H D Estimated Creat Clear 35 Estimated GFR 22 L Est GFR ( Amer) 27 L D Glucose 123 H POC Glucose Calcium 8.8 Magnesium 2.0 Total Bilirubin 0.8 AST 38 H ALT 23 Alkaline Phosphatase 329 H Troponin I < 0.01 NT-Pro-B Natriuret Pep 1060 H Total Protein 8.0 Albumin 4.3 Globulin 3.7 H Albumin/Globulin Ratio 1.2 Urine Color Yellow Urine Appearance Clear Urine pH 7.5 Ur Specific [place] 1.015 Urine Protein Negative Urine Glucose (UA) 1+ Urine Ketones Negative Urine Blood Negative Urine Nitrate Negative Urine Bilirubin Negative Urine Urobilinogen 0.2 Ur Leukocyte Esterase Negative Urine RBC None Urine WBC Occasional Ur Squamous Epith Cells 3-5 Urine Bacteria 1+ DS: Diagnosis Discharge Diagnosis (1) Leg cramping: Status: Acute Code(s): R25.2 - Cramp and spasm (2) Fracture of 5th metatarsal: Status: Acute Code(s): S92.353A - Displaced fracture of fifth metatarsal bone, unspecified foot, initial encounter for closed fracture Qualifiers: Encounter type: initial encounter Fracture alignment: nondisplaced Fracture type: closed Laterality: left Qualified Code(s): S92.355A - Nondisplaced fracture of fifth metatarsal bone, left foot, initial encounter for closed fracture (3) A-fib: Status: Acute Code(s): I48.91 - Unspecified atrial fibrillation Qualifiers: Atrial fibrillation type: permanent Qualified Code(s): I48.21 - Permanent atrial fibrillation (4) Diabetes mellitus: Status: Acute Code(s): E11.9 - Type 2 diabetes mellitus without complications Qualifiers: Diabetes mellitus complication detail: with neuropathic arthropathy Diabetes mellitus complication status: with diabetic arthropathy Diabetes mellitus predatory animal exterminator insulin use: with predatory animal exterminator use Diabetes mellitus type: type 2 Qualified Code(s): E11.610 - Type 2 diabetes mellitus with diabetic neuropathic arthropathy; Z79.4 - jail (current) use of insulin (5) Hypertensive disorder: Status: Chronic Code(s): I10 - Essential (primary) hypertension Qualifiers: Hypertension type: essential hypertension Qualified Code(s): I10 - Essential (primary) hypertension (6) HLD (hyperlipidemia): Status: Chronic Code(s): E78.5 - Hyperlipidemia, unspecified Qualifiers: Hyperlipidemia type: mixed hyperlipidemia Qualified Code(s): E78.2 - Mixed hyperlipidemia (7) CHF NYHA class IV (symptoms with any physical activity and at rest): Status: Acute Code(s): I50.9 - Heart failure, unspecified Meds Home Medications and Allergies Home Medications ?Medication ?Instructions ?Recorded ?Confirmed ?Type pantoprazole 40 mg tablet,delayed 40 mg PO BID 12/03/17 10/08/25 History release tramadol 50 mg tablet 50 mg PO Q6HP PRN Mild Pain (Scale 12/03/17 10/08/25 History Score 1-4) digoxin 125 mcg (0.125 mg) tablet 125 mcg PO DAILY 03/27/20 10/08/25 History loratadine 10 mg tablet 10 mg PO DAILY 01/11/25 10/08/25 History metoprolol succinate 25 mg 12.5 mg (1/2 x 25 mg) PO DAILY #30 02/03/25 10/08/25 Rx tablet,extended release 24 hr tabs (Toprol XL) duloxetine 30 mg capsule,delayed 30 mg PO DAILY 05/27/25 10/08/25 History release valsartan 40 mg tablet 40 mg PO BID 06/27/25 10/08/25 History dapagliflozin propanediol 10 mg 10 mg PO DAILY #30 tabs 07/01/25 10/08/25 Rx tablet (Farxiga) insulin human U-100 NPH-regulr 100 unit SQ DAILY 08/07/25 10/09/25 History 70-30 mix 100 unit/mL subcutaneous susp (Humulin 70/30 U-100 Insulin) metolazone 5 mg tablet 5 mg PO Q48H 08/07/25 10/09/25 History atorvastatin 40 mg tablet (Lipitor) 40 mg PO HS #30 tabs 09/27/25 10/08/25 Rx rivaroxaban 15 mg tablet (Xarelto) 15 mg PO QPMWITHMEAL 30 days #30 10/06/25 10/08/25 Rx tabs allopurinol 100 mg tablet 100 mg PO DAILY 10/08/25 10/08/25 History isosorbide mononitrate 30 mg 30 mg PO DAILY 10/08/25 10/08/25 History tablet,extended release 24 hr phenobarbital 32.4 mg tablet 32.4 mg PO HS 10/08/25 10/08/25 History potassium chloride 20 mEq 20 meq PO BID 10/08/25 10/08/25 History tablet,extended release(part/cryst) ropinirole 2 mg tablet 2 mg PO HS 10/08/25 10/08/25 History spironolactone 25 mg tablet 25 mg PO DAILY 10/08/25 10/08/25 History bumetanide 1 mg tablet 2 mg (2 x 1 mg) PO DAILY 30 days 10/09/25 Rx #60 tabs gabapentin 600 mg tablet 600 mg PO BID 10/09/25 10/09/25 History insulin human U-100 NPH-regulr 60 unit SQ HS 10/09/25 10/09/25 History 70-30 mix 100 unit/mL subcutaneous susp (Humulin 70/30 U-100 Insulin) methocarbamol 500 mg tablet 500 mg PO BID PRN Muscle Spasm 30 10/09/25 Rx days #30 tabs New Prescriptions to Start Prescriptions: [email or web address] Brand methocarbamol Seth Liu Allergies Allergy/AdvReac Type Severity Reaction Status Date / Time metoclopramide (From REGLAN) Allergy Mild SHAKES Verified 08/30/25 13:35 empagliflozin (From AdvReac Mild itching Verified 08/30/25 13:35 Jardiance) Discharge Plan Disposition Patient Disposition: Home, Self-Care Condition: Good Follow up Plan Follow up with: Rad Galvan MD [Primary Care Provider, Medical] - Enter time for follow up Prescriptions/Medication Reconciliation: New methocarbamol 500 mg Tablet 500 mg PO BID PRN (Reason: Muscle Spasm) 30 Days Qty: 30 0RF Continued metoprolol succinate [Toprol XL] 25 mg tablet extended release 24 hr 12.5 mg PO DAILY Qty: 30 5RF dapagliflozin propanediol [Farxiga] 10 mg tablet 10 mg PO DAILY Qty: 30 5RF atorvastatin [Lipitor] 40 mg tablet 40 mg PO HS Qty: 30 3RF Xarelto 15 mg tablet 15 mg PO QPMWITHMEAL 30 Days Qty: 30 5RF tramadol 50 MG tablet 50 mg PO Q6HP PRN (Reason: Mild Pain (Scale Score 1-4)) pantoprazole 40 MG tablet,delayed release (DR/EC) 40 mg PO BID valsartan 40 mg tablet 40 mg PO BID metolazone 5 mg tablet 5 mg PO Q48H Patient Comments: TAKE ONE TABLET BY MOUTH EVERY OTHER DAY Humulin 70/30 U-100 Insulin 100 unit/mL (70-30) suspension 100 unit SQ DAILY Patient Comments: INJECT 100 units SUBCUTANEOUSLY EVERY DAY IN THE MORNING AND INJECT 60 units EVERY EVENING digoxin 125 MCG tablet 125 mcg PO DAILY loratadine 10 mg tablet 10 mg PO DAILY Patient Comments: TAKE ONE TABLET BY MOUTH EVERY DAY duloxetine 30 mg capsule,delayed release(DR/EC) 30 mg PO DAILY Patient Comments: TAKE ONE CAPSULE BY MOUTH EVERY DAY isosorbide mononitrate 30 mg tablet extended release 24 hr 30 mg PO DAILY allopurinol 100 mg tablet 100 mg PO DAILY Patient Comments: [NO ORIGINAL SIG] ropinirole 2 mg tablet 2 mg PO HS spironolactone 25 mg tablet 25 mg PO DAILY potassium chloride 20 mEq tablet,ER particles/crystals 20 meq PO BID Patient Comments: TAKE ONE TABLET BY MOUTH TWICE DAILY phenobarbital 32.4 MG tablet 32.4 mg PO HS Rx Instructions: 1.5 tabs nightly Humulin 70/30 U-100 Insulin 100 unit/mL (70-30) suspension 60 unit SQ HS Patient Comments: INJECT 100 units SUBCUTANEOUSLY EVERY DAY IN THE MORNING AND INJECT 60 units EVERY EVENING gabapentin 600 mg tablet 600 mg PO BID Patient Comments: TAKE ONE TABLET BY MOUTH EVERY DAY MAY CAUSE DROWSINESS Changed bumetanide 1 mg tablet 2 mg PO DAILY 30 Days Qty: 60 0RF Patient Comments: [NO ORIGINAL SIG] Problem Reconciliation Problems Reviewed?: Yes Patient Discharge Instructions ACTIVITY: Continue current activity DIET: continue same diet Patient Instructions: DI for Foot Fracture, DI for Musculoskeletal Pain, Stop Light Heart Failure Print Language: Mohawk Providers Primary Care Provider: Rad Galvan Admit Provider: Seth Liu Attending Provider: Seth Liu
--- NOTE | 2025-10-10 10:06 | SW/DCPLANNER ---
Spoke with patient on the phone. Patient stated that she is doing good. Patient stated that she is aware of her upcoming appointment. 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 Patient stated that she has no concerns or questions at this time. Bryan Aldrich
== END 2025-10-09 14:50 | disposition home or self-care (01) ==
LOC: ER 18:42 → 2ND 18:43
PROVIDERS: Nurse Practitioner Acute Care; Physician Assistant; Admitting Provider Internal Medicine Adolescent Medicine; Emergency Provider Student in an Organized Health Care Education/Training Program; PCP Family Medicine; Visit Provider Internal Medicine Adolescent Medicine
DX: R25.2 Cramp and spasm (principal); S92.355A Nondisplaced fracture of fifth metatarsal bone, left foot, initial encounter for closed fracture; I48.21 Permanent atrial fibrillation; E11.610 Type 2 diabetes mellitus with diabetic neuropathic arthropathy; Z79.4 Long term (current) use of insulin; E78.2 Mixed hyperlipidemia; I12.9 Hypertensive chronic kidney disease with stage 1 through stage 4 chronic kidney disease, or unspecified chronic kidney disease; I50.43 Acute on chronic combined systolic (congestive) and diastolic (congestive) heart failure; N17.9 Acute kidney failure, unspecified; Z90.49 Acquired absence of other specified parts of digestive tract; Z88.8 Allergy status to other drugs, medicaments and biological substances; Z79.899 Other long term (current) drug therapy; N18.32 Chronic kidney disease, stage 3b; Z79.84 Long term (current) use of oral hypoglycemic drugs; G40.909 Epilepsy, unspecified, not intractable, without status epilepticus; K21.9 Gastro-esophageal reflux disease without esophagitis; I25.10 Atherosclerotic heart disease of native coronary artery without angina pectoris; I49.8 Other specified cardiac arrhythmias; M19.071 Primary osteoarthritis, right ankle and foot
CPT/HCPCS: 36415; 71045; 73630; 80053; 81001; 82962; 83735; 83880; 84484; 85025; 93005; 99284; G0378

== ENCOUNTER 2025-11-01 09:19 | Outpatient (CLI) | payer MEDICARE, SELFPAY ==
[2025-11-01 10:51] LABS: Hemoglobin A1C 6.4 % (4.0-6.0)
== END 2025-11-01 23:59 | disposition home or self-care (01) ==
LOC: LAB 09:20
PROVIDERS: PCP Family Medicine; Visit Provider Family Medicine
DX: E11.649 Type 2 diabetes mellitus with hypoglycemia without coma (principal); Z79.4 Long term (current) use of insulin
CPT/HCPCS: 36415; 83036

== ENCOUNTER 2025-11-21 10:38 | Outpatient (CLI) | payer MEDICARE, SELFPAY ==
--- OUTSIDE RECORDS SUMMARY | 2025-09-23 11:00 | XMS_ITS | Encounter Summary ---
Author Organization [facility] Address [address] [place] [address] Care Team Providers Care Grease Buffer Name Role Phone Uli Salcedo Unavailable [phone] Rad Galvan MD Primary Care Provider [phone] Encounter Details Date Type Department Care Team (Latest Contact Info) Description 09/23/2025 12:00 PM EDT Ancillary Procedure [facility] [place] [address] [place] [address] Chronic combined systolic and diastolic congestive heart [...] Care Team (Late st Contact Info) Description 01/13/2026 9:30 AM EST Office Visit [facility] [place] [address] [place] [address] Elvin Schuler MD [address] [place] [address] documented as of this encounter Visit Diagnoses [...] documented as of this encounter Care Teams Grease Buffer Relationship Specialty Start Date End Date Rad Galvan MD [address] [place] [address] PCP - General 04/08/25 Uli Salcedo PA [address] [place] [address] Referring Physician 02/03/25 documented as of this encounter
--- OUTSIDE RECORDS SUMMARY | 2025-10-18 13:45 | XMS_ITS | Encounter Summary ---
Author Organization [facility] Address [address] [place] [id number] Care Team Providers Care Rn Intake Name Role Phone Rad Galvan MD Primary Care Provider + Reason for Visit * Reason Comments Foot bruised Left foot,Already lopez d x ray- NLToenail- black Encounter Details Date Type Department Care Team (Late st Contact Info) Description 10/18/2025 1:45 PM EST Office Visit [facility] [address] [place] [address] Rad Galvan MD [address] [place] [address] Contusion of left foot, subsequent encounter (Primary Dx); Type 2 diabetes mellitus with hypoglycemia without coma, with long-term current use of insulin Social [...] Date Recorded Patient Health Questionnaire-2 Score 0 10/18/2025 Comments Unknown Sex and Gender Information Value Date Recorded Sex Assigned at Female 03/31/2025 7:05 PM EDT Legal Sex Female 11:42 AM EDT Gender Identity Not on file Sexual Orientation Straight 03/31/2025 7: 05 PM EDT documented as of this encounter Last Filed Vital Signs Vital Sign Reading Time Taken Comments Blood Pressure 110/50 10/18/2025 1:37 PM EST Pulse 68 10/18/2025 1:37 PM EST Temperature 36.2 C (97.1 F) 10/18/2025 1:37 PM EST Respiratory Rate 18 10/18/2025 1:37 PM EST Oxygen Saturation - - Inhaled Oxygen Concentration - - Weight 88 kg (194 lb) 10/18/2025 1:37 PM EST Height - - Body Mass Index 36.66 09/19/2025 11:53 AM EDT documented in this encounter Functional Status * PHQ-2/PHQ-9: Depression Screening Question Answer Date of Assessment Author Little interest or pleasure in doing things Not at all 10/18/2025 1:43 PM EST Sirisha Mccray C MA Feeling down, depressed, or hopeless Not at all 10/18/2025 1:43 PM EST Sirisha Mccray OUTBOUND TELEMARKETING REPRESENTATIVE Patient Health Questionnaire-2 Score 0 10/18/2025 1:43 PM EST Jose Mccrayanti OUTBOUND TELEMARKETING REPRESENTATIVE How difficult have these problems made it for you to do your work, take care of things at home, or get along with other people? Not difficult at all 10/18/2025 1:43 PM EST Sirisha Mccray OUTBOUND TELEMARKETING REPRESENTATIVE documented as of this encounter Mental Status * PHQ-2/PHQ-9: Depression Screening Question Answer Entry Date Author Little interest or pleasure in doing things Not at all 10/18/2025 1:43 PM EST Sirisha Mccray CMA Feeling down, depressed, or hopeless Not at all 10/18/2025 1:43 PM EST Mahendra Sirisha, OUTBOUND TELEMARKETING REPRESENTATIVE Patient Health Questionnaire-2 Score 0 10/18/2025 1:43 PM EST Jose Mccrayanti OUTBOUND TELEMARKETING REPRESENTATIVE How difficult have these problems made it for you to do your work, take care of things at home, or get along with other people? Not difficult at all 10/18/2025 1:43 PM EST Jose Mccrayanti OUTBOUND TELEMARKETING REPRESENTATIVE documented in this encounter Progress Notes * Rad Galvan MD - 10/18/2025 1:45 PM EST Images from the original note were not included. Chief Complaint Patient presents with Foot bruised Left foot, Already had x ray- NL Toenail- black Subjective Sara Edwards is a 70 y.o. who presents for purplish discoloration on the left foot on the dorsal aspect over the 2nd through 4th metatarsal phalangeal joints. She denies trauma or pain. Range of motion is intact within the foot. She has had an x-ray of the extremity Objective Vital Signs: BP 110/50 Pulse 68 Temp 97.1 ??F (36.2 ??C) (Infrared) Resp 18 Wt 88 kg (194 lb) BMI 36.66 kg/m?? Physical Exam Vitals reviewed. Constitutional: Appearance: Normal appearance. Musculoskeletal: Feet: Feet: Comments: Purplish discoloration of the skin consistent with bruising. There is no swelling. Patient has intact passive and active range of motion of the MTP joints. She does have evidence of subungual hematoma that is old of the second toe. Neurological: Mental Status: She is alert. Result Review Assessment and Plan Diagnoses and all orders for this visit: 1. Contusion of left foot, subsequent encounter (Primary) 2. Type 2 diabetes mellitus with hypoglycemia without coma, with long-term current use of insulin - Hemoglobin A1c; Future Plan 1. Reassured patient that the skin discoloration is bruising and no additional evaluation is needed 2. Patient was given an order for an A1c to be obtained in a couple of weeks Follow Up No follow-ups on file. Patient was given instructions and counseling regarding her condition or for health maintenance advice. Please see specific information pulled into the AVS if appropriate. documented in this encounter Plan of Treatment Scheduled Orders Name Type Priority Associated Diagnoses Orde r Schedule Hemoglobin A1c Lab Routine Type 2 diabetes mellitus with hypoglycemia without coma, with long-term current use of insulin Expected: 11/01/2025 (Approximate), Expires: 01/18/2027 documented as of this encounter Visit Diagnoses Diagnosis Contusion of left foot, subsequent encounter- Primary Type 2 diabetes mellitus with hypoglycemia without coma, with long-term current use of insulin documented in this encounter Additional Health Concerns Assessment Noted Time PHQ-2 Depression Total Score: 1 02/17/20 24 10:24 AM EDT documented as of this encounter Care Teams Rn Intake Relationship Specialty Start Date End Date Rad Galvan MD [address] [facility] [address] PCP - General Family Medicine 04/15/22 documented as of this encounter
--- OUTSIDE RECORDS SUMMARY | 2025-11-21 10:48 | XMS_ITS | Encounter Summary ---
Author Organization [facility] Address [address] [place] [id number] Care Team Providers Care Mission Systems Engineer Name Role Phone Rad Galvan MD Primary Care Provider + Reason for Visit * Reason Comments Med Refill Encounter Details Date Type Department Care Team (Late st Contact Info) Description 10/24/2025 Refill [facility] [address] [place] [address] Rad Galvan MD [address] [place] [address] Chronic midline low back pain without sciatica Social History Tobacco Use Types Packs/Day Years [...] encounter Miscellaneous Notes * Telephone Encounter - Shannan Baptiste RegSched Rep - 10/24/2025 3:15 PM EST Caller: Sara Edwards Luly Mauricio Relationship: Self Best call back number: [phone] Requested Prescriptions: Requested Prescriptions Pending Prescriptions Disp Refills traMADol (ULTRAM) 50 MG tablet [Pharmacy Med Name: tramadol 50 mg tablet] 120 tablet 4 Sig: TAKE ONE TABLET BY MOUTH EVERY 6 HOURS NEEDED FOR MODERATE PAIN MAY CAUSE DROWSINESS Pharmacy where request should be sent: [facility] [address] - [phone] - [phone] FX Last office visit with prescribing clinician: 10/18/2025 Last telemedicine visit with prescribing clinician: Visit date not found Next office visit with prescribing clinician: 10/31/2025 Does the patient have less than a 3 day supply: [x] Yes [] No Dominique Maki 10/24/25 15:16 EST documented in this encounter Plan of Treatment Not on file documented as of this encounter Visit Diagnoses Diagnosis Chronic midline low back pain without sciatica documented in this encounter Additional Health Concerns Assessment Noted Time PHQ-2 Depression Total Score: 1 02/17/20 24 10:24 AM EDT documented as of this encounter Care Teams Mission Systems Engineer Relationship Specialty Start Date End Date Rad Galvan MD [address] [place] [address] PCP - General Family Medicine 04/15/22 documented as of this encounter
--- OUTSIDE RECORDS SUMMARY | 2025-11-21 10:48 | XMS_ITS | Encounter Summary ---
Author Organization [facility] Address [address] [id number] Care Team Providers Care Insole Filler Name Role Phone Rad Galvan MD Primary Care Provider + Reason for Visit * Reason Onset Date Comments Med Refill 10/26/2025 Encounter Details Date Type Department Care Team (Late st Contact Info) Description 10/26/[address] [facility] [address] [place] [address] Rad Galvan MD [address] [place] [address] Social History Tobacco Use Types [...] Encounter - Rose Marie Chamberlain MA - 10/26/2025 12:30 PM EST Spoke w/ pt first and she does not need the pen needles only the syringes. * Telephone Encounter - Randi Arroyo RegSched Rep - 10/26/2025 11:03 AM EST Caller: [facility] [address] - [phone] [facility] [phone] FX Relationship: Pharmacy Best call back number: [phone] Requested Prescriptions: Requested Prescriptions Pending Prescriptions Disp Refills Insulin Pen Needle (Comfort EZ Pen Bath) 32G X 6 MM misc 100 each Pharmacy where request should be sent: [facility] - [address] - [phone] [facility] [phone] FX Last office visit with prescribing clinician: 10/18/2025 Last telemedicine visit with prescribing clinician: Visit date not found Next office visit with prescribing clinician: 10/31/2025 Additional details provided by patient: MAY NEED A PRIOR AUTHORIZATION. NEEDS NEEDLES AND SYRINGES. Does the patient have less than a 3 day supply: [x] Yes [] No Would you like a call back once the refill request has been completed: [] Yes [] No If the office needs to give you a call back, can they leave a voicemail: [] Yes [] No Dominique Silva Rep 10/26/25 11:04 EST documented in this encounter Plan of Treatment Not on file documented as of this encounter Visit Diagnoses Not on filedocumented in this encounter Additional Health Concerns Assessment Noted Time PHQ-2 Depression Total Score: 1 02/17/20 24 10:24 AM EDT documented as of this encounter Care Teams Insole Filler Relationship Specialty Start Date End Date Rad Galvan MD [address] [place] [address] PCP - General Family Medicine 04/15/22 documented as of this encounter
--- OUTSIDE RECORDS SUMMARY | 2025-11-21 10:48 | XMS_ITS | Encounter Summary ---
Author Organization [facility] Address [address] [place] [id number] Care Team Providers Care Education Program Manager Name Role Phone Rad Galvan MD Primary Care Provider + Encounter Details Date Type Department Care Team (Late st Contact Info) Description 11/02/2025 Results Follow-Up [facility] [address] [place] [address] Rad Galvan MD [address] [place] [address] Social History Tobacco Use Types [...] as of this encounter Plan of Treatment Not on file documented as of this encounter Visit Diagnoses Not on filedocumented in this encounter Additional Health Concerns Assessment Noted Time PHQ-2 Depression Total Score: 1 02/17/20 24 10:24 AM EDT documented as of this encounter Care Teams Education Program Manager Relationship Specialty Start Date End Date Rad Galvan MD [address] [place] [address] PCP - General Family Medicine 04/15/22 documented as of this encounter
--- OUTSIDE RECORDS SUMMARY | 2025-11-21 10:48 | XMS_ITS | Encounter Summary ---
Author Organization [facility] Address [address] [place] [phone] Care Team Providers Care Health Record Technician Name Role Phone Rad Galvan MD Primary Care Provider + Reason for Visit * Reason Comments Med Refill Encounter Details Date Type Department Care Team (Late st Contact Info) Description 09/26/2025 Refill [facility] [address] [place] [address] Rad Galvan MD [address] [place] [address] Type 2 diabetes mellitus with [...] documented as of this encounter Care Teams Health Record Technician Relationship Specialty Start Date End Date Rad Galvan MD [address] [place] [address] PCP - General Family Medicine 04/15/22 documented as of this encounter
--- OUTSIDE RECORDS SUMMARY | 2025-11-21 10:48 | XMS_ITS | Encounter Summary ---
Author Organization [facility] Address [address] [place] [address] Care Team Providers Care Pump Tender Name Role Phone Rad Galvan MD Primary Care Provider + Encounter Details Date Type Department Care Team (Latest Contact Info) Description 10/18/2025 Travel Social History Tobacco Use Types Packs/Day [...] documented as of this encounter Care Teams Pump Tender Relationship Specialty Start Date End Date Rad Galvan MD [address] [place] [address] PCP - General Family Medicine 04/15/22 documented as of this encounter
--- OUTSIDE RECORDS SUMMARY | 2025-11-21 10:48 | XMS_ITS | Clinical Summary ---
Author Organization [facility] Address [address] [place] [address] Care Team Providers Care Maintenance Mechanic Engine Name Role Phone Uli Salcedo Unavailable [phone] Rad Galvan MD Primary Care Provider [phone] Allergies Active Allergy Reactions Criticality Noted Date [...] by mouth every night at bedtime 01/26/20 Active rOPINIRole (Requip) 2 MG tablet Take 1 tablet by mouth nightly. 01/26/20 25 Active Ozempic, 2 MG/DOSE, 8 MG/3ML solution pen-injector INJECT 2 MG SUBCUTANEOUSLY ONCE A WEEK DIRECTED 04/27/20 Active spironolactone (Aldactone) 25 MG tablet Take 1 tablet by mouth daily. 01/28/20 25 Active traMADol (Ultram) 50 MG tablet TAKE ONE TABLET BY MOUTH EVERY 6 HOURS NEEDED FOR MODERATE TO SEVERE PAIN 02/12/20 Active valsartan (Diovan) 40 MG tablet Take [...] 2 times a day. 08/01/20 25 Active metOLazone (Zaroxolyn) 5 MG tablet Take 1 tablet by mouth as needed (systolic heart failure). Take 1 dose today and tomorrow and then as needed daily for worsening heart failure symptoms 15 tablet 1 10/06/20 25 Active Active Problems Problem Noted Date Diagnosed Date Obesity (BMI 35.0-39.9 without comorbidity) 06/24 Congestive heart failure 02/18/2025 Encounters Date Type Department Care Team Description 10/06/2025 Telephone [facility] [address] [place] [address] Chika Orellana, MILITARY NURSE 10/06/2025 Telephone [facility] [address], [address] [place] [address] Chika Orellana, MILITARY NURSE 10/05/2025 Telephone [facility] [address] [place] [id number] Elvin Schuler MD HCN - Patient Message 10/05/2025 Telephone [facility] [address] [place] [address] Yaritza Johnson RN 10/03/2025 Travel 10/03/2025 Orders Only [facility] [address] [phone] Linda Garcia RN Chronic combined systolic and diastolic congestive heart failure (Primary Dx) 09/23/2025 12:00 PM EDT Ancillary Procedure [facility] [address] [address] Chronic combined systolic and diastolic congestive heart failure 09/16/2025 4:00 PM EDT Office Visit [facility] [address] [place] [address] Elvin Schuler MD Chronic combined systolic and diastolic congestive heart failure (Primary Dx) 09/16/2025 2:30 PM EDT - 09/16/2025 11:59 PM EDT Hospital Encounter Cardiac Imaging [address] [place] [address] Chronic combined systolic and diastolic congestive heart failure Discharge Disposition: Home or Self Care 09/16/2025 Travel 09/15/2025 Telephone [facility] [address] [place] [address] Elvin Schuler MD 09/09/2025 Travel 08/22/2025 2:00 PM EDT Office Visit [facility] [place] [address], [address] [place] [address] Lenore Bautista MD Obesity (BMI 35.0-39.9 without comorbidity) (Primary Dx); Chronic systolic congestive heart failure (CMS/HCC); Stage 3b chronic kidney disease (CMS/HCC) 08/22/2025 Travel from Last 3 Months Immunizations Immunization [...] Description 01/13/2026 9:30 AM EST Office Visit [facility] [place] [address] [place] [address] Elvin Schuler MD [address] [place] [address] Health Maintenance Due Date Last Done Comments [...] 2007 UKY-Zoster Vaccines (1 of 2) 2007 [id number] Vaccine ( season) 2025 09/06/2022, 11/28/2021, 03/06/2021, [...] 09/24/2024, 08/18/2023, Additional history exists HPV Vaccines (No Doses Required) Completed UKY-HIB Vaccines Aged Out No longer e [...] EDT Stage 3b chronic kidney disease (CMS/HCC) HEPATITIS C ANTIBODY - ED W/REFLEX [...] Blood Venous blood specimen / Unknown 10/06/2025 us Historical Provider LAB BLOOD ORDERABLES Final R [...] is no recent study available for direct yvxy-ak-uqaj comparison. Left Ventricle Based on the linear [...] is no recent study available for direct hcgw-qw-lanh comparison. Elvin Schuler MD CV ECHO PROCEDURES Final Re sult * (ABNORMAL) Cystatin C (08/22/2025 3:59 PM EDT) Cystatin C 1.8(H) 0.61 - 0.95 mg/L 08/22/2025 6:18 PM EDT [facility] Blood Venous blood specimen / Unknown Venipuncture / Unknown 08/22/2025 3:59 PM EDT 08/22/2025 3:59 PM EDT Lenore Cobos MD LAB BLOOD OR DERABLES Final Result [facility] [address] [place] [address] * Vitamin D 25 Hydroxy (08/22/2025 3:59 PM EDT) Vitamin D 25 Hydroxy 61.8 20.0 - 80.0 ng/mL 08/22/2025 7:20 PM EDT [facility] Blood Venous blood specimen / Unknown Venipuncture / Unknown 08/22/2025 3:59 PM EDT 08/22/2025 3:59 PM EDT Narrative [facility] - 08/22/2025 7:20 PM EDT Testing performed on [employer] Teacher, standardized against NIST SRM 2972. When testing [...] MD LAB BLOOD OR DERABLES Final Result [facility] [address] [place] [address] * (ABNORMAL) CBC W/O Differential (08/22/2025 3:59 PM EDT) Pathologist [facility] WBC Count 7.37 3.70 - 10.30 10*3/uL LAB HEMATOLOGY METHOD 08/22/2025 5:23 PM EDT [facility] RBC Count 2.97(L) 3.90 - 5.20 10*6/uL LAB HEMATOLOGY METHOD 08/22/2025 5:23 PM EDT [facility] HGB 10.1(L) 11.2 - 15.7 g/dL LAB HEMATOLOGY METHOD 08/22/2025 5:23 PM EDT [facility] HCT 31.6(L) 34.0 - 45.0 % LAB HEMATOLOGY METHOD 08/22/2025 5:23 PM EDT [facility] Platelet Count 208 155 - 369 10*3/uL LAB HEMATOLOGY METHOD 08/22/2025 5:23 PM EDT [facility] MCV 106(H) 79 - 98 fL LAB HEMATOLOGY METHOD 08/22/2025 5:23 PM EDT [facility] MCH 34.0(H) 26.0 - 32.0 pg LAB HEMATOLOGY METHOD 08/22/2025 5:23 PM EDT [facility] MCHC 32.0 30.7 - 35.5 g/dL LAB HEMATOLOGY METHOD 08/22/2025 5:23 PM EDT [facility] RDW 15.4(H) 11.5 - 14.5 % LAB HEMATOLOGY METHOD 08/22/2025 5:23 PM EDT [facility] MPV 10.1 8.8 - 12.5 fL LAB HEMATOLOGY METHOD 08/22/2025 5:23 PM EDT [facility] nRBC 0.0 <=0.0 per 100 WBCs LAB HEMATOLOGY METHOD 08/22/2025 5:23 PM EDT [facility] Blood Venous blood specimen / Unknown Venipuncture / Unknown 08/22/2025 3:59 PM EDT 08/22/2025 3:59 PM EDT Lenore Cobos MD LAB BLOOD OR DERABLES Final Result [facility] [address] [place] [address] * (ABNORMAL) PTH Intact Total (08/22/2025 3:59 PM EDT) PTH Intact Total 242(H) 9 - 77 pg/mL 08/22/2025 6:11 PM EDT [facility] Blood Venous blood specimen / Unknown Venipuncture / Unknown 08/22/2025 3:59 PM EDT 08/22/2025 3:59 PM EDT Narrative [facility] - 08/22/2025 6:11 PM EDT Assay performed by immunoassay at the [facility]. Performed on [employer] Teacher chemiluminescent immunoassay, tractable to the World Health Organization's first international standard for PTH from the NIBS, Code 79/500. Results obtained from different test methods or kits cannot be used interchangeably. Lenore Cobos MD LAB BLOOD OR DERABLES Final Result Performing Organization Address City/[facility]/ZIP Co de Phone Number [facility] [address] [place] [address] * (ABNORMAL) Renal Function Panel, Plasma (08/22/2025 3:59 PM EDT) Glucose, Plasma 178(H) 74 - 99 mg/dL 08/22/2025 5:45 PM EDT [facility] BUN, Plasma 32(H) 8 - 23 mg/dL 08/22/2025 5:45 PM EDT [facility] Creatinine, Plasma 1.55(H) 0.60 - 1.10 mg/dL 08/22/2025 5:45 PM EDT [facility] BUN/Creatinine Ratio 21 08/22/2025 5:45 PM EDT [facility] Sodium, Plasma 136 136 - 145 mmol/L 08/22/2025 5:45 PM EDT [facility] Potassium, Plasma 4.6 3.6 - 4.9 mmol/L 08/22/2025 5:45 PM EDT [facility] Chloride, Plasma 92(L) 97 - 107 mmol/L 08/22/2025 5:45 PM EDT [facility] CO2, Plasma 30(H) 22 - 29 mmol/L 08/22/2025 5:45 PM EDT [facility] Anion Gap 14 6 - 16 mmol/L 08/22/2025 5:45 PM EDT [facility] Total Calcium, Plasma 9.6 8.9 - 10.2 mg/dL 08/22/2025 5:45 PM EDT [facility] Phosphorus, Plasma 3.6 2.5 - 4.5 mg/dL 08/22/2025 5:45 PM EDT [facility] Albumin, Plasma 4.1 3.5 - 5.2 g/dL 08/22/2025 5:45 PM EDT [facility] eGFRcr 36.3 mL/min/1.7 3m*2 08/22/2025 5:45 PM EDT [facility] Comment:Reported eGFRcr in m L/min/1.73m2 is based the CKD-EPI 2020 equation that does not use a race coefficient. Blood Venous blood specimen / Unknown Venipuncture / Unknown 08/22/2025 3:59 PM EDT 08/22/2025 3:59 PM EDT Lenore Cobos MD LAB BLOOD OR DERABLES Final Result [facility] [address] [place] [address] * Albumin-creatinine ratio, urine, random (08/22/2025 3:48 PM EDT) Microalbumin, Urine <1.2 <1.9 mg/dL 08/22/2025 6:20 PM EDT [facility] Creatinine, Urine 19 mg/dL 08/22/2025 6:20 PM EDT [facility] Albumin/Creatin ine Ratio 08/22/2025 6:20 PM EDT [facility] Comment:Unable to calculate, at least one value is above or below the detection limit. Urine Urine specimen obtained by clean catch procedure / Unknown Non-blood Collection / Unknown 08/22/2025 3:48 PM EDT 08/22/2025 3:48 PM EDT Lenore Cobos MD LAB URINE OR DERABLES Final Result Performing Organization Address City/[facility]/ZIP Co de Phone Number [facility] [address] [place] [address] * Protein, Random, Urine with Creatinine (08/22/2025 3:48 PM EDT) Protein, Urine 6 mg/dL 08/22/2025 5:50 PM EDT [facility] Creatinine, Urine 19 mg/dL 08/22/2025 5:50 PM EDT [facility] Protein/Creati nine Ratio 0.3 mg/mg Creat 08/22/2025 5:50 PM EDT [facility] Urine Urine specimen obtained by clean catch procedure / Unknown Non-blood Collection / Unknown 08/22/2025 3:48 PM EDT 08/22/2025 3:48 PM EDT Lenore Cobos MD LAB URINE OR DERABLES Final Result Performing Organization Address City/[facility] Co de Phone Number [facility] [address] [place] [address] * (ABNORMAL) Urinalysis with reflex microscopic (Culture NOT Included) (08/22/2025 3:48 PM EDT) Color, Urine Yellow LAB URINALYSIS - AUTOMATED METHOD 08/22/2025 5:22 PM EDT [facility] Clarity, Urine Clear LAB URINALYSIS - AUTOMATED METHOD 08/22/2025 5:22 PM EDT [facility] Spec Lanse, Urine 1.009 1.005 - 1.030 LAB URINALYSIS - AUTOMATED METHOD 08/22/2025 5:22 PM EDT [facility] pH, Urine 7.0 5.0 - 8.0 LAB URINALYSIS - AUTOMATED METHOD 08/22/2025 5:22 PM EDT [facility] Protein, Urine Negative Negative mg/dL LAB URINALYSIS - AUTOMATED METHOD 08/22/2025 5:22 PM EDT [facility] Glucose, Urine 500(A) Negative mg/dL LAB URINALYSIS - AUTOMATED METHOD 08/22/2025 5:22 PM EDT [facility] Ketones, Urine Negative Negative mg/dL LAB URINALYSIS - AUTOMATED METHOD 08/22/2025 5:22 PM EDT [facility] Blood, Urine Negative Negative LAB URINALYSIS - AUTOMATED METHOD 08/22/2025 5:22 PM EDT [facility] Bilirubin, Urine Negative Negative LAB URINALYSIS - AUTOMATED METHOD 08/22/2025 5:22 PM EDT [facility] Urobilinogen, Urine 0.2 0.2 to 1.0 mg/dL LAB URINALYSIS - AUTOMATED METHOD 08/22/2025 5:22 PM EDT [facility] Leukocytes, Urine Negative Negative LAB URINALYSIS - AUTOMATED METHOD 08/22/2025 5:22 PM EDT [facility] Nitrite, Urine Negative Negative LAB URINALYSIS - AUTOMATED METHOD 08/22/2025 5:22 PM EDT [facility] Urine Urine specimen obtained by clean catch procedure / Unknown Non-blood Collection / Unknown 08/22/2025 3:48 PM EDT 08/22/2025 3:48 PM EDT us Lenore Cobos MD LAB URINE OR DERABLES Final Result [facility] [address] [place] [address] * [place] Hepatitis C Antibody (11/26/2020 6:51 PM EST) [place] Hepatitis C Ab NEGATIVE Reference Range: Negative [facility] 11/26/2020 6:51 PM EST 11/26/2020 7:09 PM EST us Justo Morse MD LAB BLOOD ORDERABLES Final Re sult [facility]QUEST from Last 3 Months or Most Recently Relevant to Health Maintenance Insurance [employer] MEDICARE Advance Directives Documents on File Type Date Recorded Patient Business Risk Analyst Expl anation Advance Directives and Living Will 03/30/2025 LIVING WILL DIRECTIV E * Full Code (Latest Code Status on File) Date Activated Date Inactivated Comments 07/27/2025 9:34 AM 07/27/2025 12:40 PM Question Answer Comments Patient has decision-making capacity? Yes Healthcare Agents on File Name Relationship Healthcare Agent Relationshi p Communication Yennifer Edwards Daughter Next of Kin Care Teams Maintenance Mechanic Engine Relationship Specialty Start Date End Date Rad Galvan MD [address] [place] [address] PCP - General 04/08/25 Uli Salcedo PA [address] [place] [address] Referring Physician 02/03/25
--- OUTSIDE RECORDS SUMMARY | 2025-11-21 10:48 | XMS_ITS | Encounter Summary ---
Author Organization [facility] Address [address] [place] [address] Care Team Providers Care Tour Conductor Name Role Phone Rad Galvan MD Primary Care Provider + Encounter Details Date Type Department Care Team (Late st Contact Info) Description 09/22/2025 External PBMM Data [facility] [address] [place] [phone] Pharmacy, Payor Data Social History Tobacco Use [...] documented as of this encounter Care Teams Tour Conductor Relationship Specialty Start Date End Date Rad Galvan MD [address] [place] [id number] PCP - General Family Medicine 04/15/22 documented as of this encounter
--- OUTSIDE RECORDS SUMMARY | 2025-11-21 10:48 | XMS_ITS ---
Author Organization [facility] Address [address] [place] [address] Care Team Providers Care Clinical Staff Anesthesiologist Name Role Phone Rad Galvan MD Primary Care Provider + [facility] Status:Enrolled (Active) Start date:04/13/2025 Enrollment date:04/13/2025 Current support & services provided:Adherence- Cholesterol, Adherence- Hypertension Linked medications:Atorvastatin Calcium (Active), Valsartan (Active) Overview Atorvastatin and valsartan filled 03/26/2025 #30 day both have refills Case Team Name Relationship Phone Danielle Da Silva LPN(Responsible Staff) Licensed Mane cody Nurse Continued Care and Services Coordination
--- OUTSIDE RECORDS SUMMARY | 2025-11-21 10:49 | XMS_ITS | Encounter Summary ---
Author Organization [facility] Address [address] [place] [address] Care Team Providers Care Dielectric Testing Machine Operator Name Role Phone Uli Salcedo Unavailable [phone] Rad Galvan MD Primary Care Provider [phone] Reason for Referral * Home Health (Routine) - Authorized Specialty Diagnoses / Procedures Referred By Regan greene Referred To Contact Home Health Services Diagnoses Chronic combined systolic and diastolic congestive heart failure Tianna Linares APRN [address] [place] [address] Phone: tel: fax: Referral ID Status Reason Start Date Expiration Date Visits Requested Visits Authorized [id number] Authorized Specialty Services Required 04/07/2027 [id number] Encounter Details Date Type Department Care Team (Late st Contact Info) Description 10/06/2025 Telephone [facility] [place] [facility] [address] [place] [phone] Tianna Linares APRN [address] [place] [address] Social History Tobacco Use Types [...] Telephone Encounter - Neptali Johnson RN - 10/10/2025 9:20 AM EST Contacted Ms Alcantar to follow up after reiceiving IV diuretics. Reported she went to [facility] on Friday d/t severe leg cramping after receiving. Reports KCL and kidney function were okay.Advised received muscle relaxer and was advised to decrease bumex to 2mg daily and take metolazone PRN. Stated she has made these changes in her pill box. PAD 19 yesterday. Reports weight is down from 207lbs to 200lbs. Advised to contact our office with any additional problems or concerns. Contacted [facility] to request ED visit notes * Telephone Encounter - Neptali Johnson RN - 10/07/2025 3:38 PM EST Contacted Ms alcantar to verify message was received regarding repeating labs on Friday. Ms Alcantar stated she went for IV infusion today. Reports she forgot to not take am dose of bumex and took itthis am. Advised to hold afternoon dose. C/o cramping in BLE after infusion. Currently taking KCL 20meq BID. (KCL 4.9 on labs yesterday). Discussed with tianna linares APRN and advised to increase to 40meq BID. Will take bumex 2mg BID thur the weekend and repeat labs again on Friday. * Addendum Note - Neptali Johnson RN - 10/07/2025 8:57 AM ESTAddended by: NEPTALI JOHNSON on: 10/07/2025 08:57 AM Modules accepted: Orders * Telephone Encounter - Neptali Johnson RN - 10/07/2025 8:54 AM EST Contacted [facility] infusion and spoke to Francine. Stated able to come in today for outpatient infusion. Contacted Ms kaur and ANNAMARIE mendoza. Advised to repeat labs again on Friday. Hold am bumex and can take dose this afternoon * Telephone Encounter - Neptali Johnson RN - 10/06/2025 4:05 PM EST Returned call to Asmita at pharmacy. Asmita stated Ms Alcantar has orders for metolazone 5mg EOD that was sent in by Mavis goodman on 09/08. Discussed with Tianna Linares APRN. Advised if she has alreadybeen taking metolazone EOD, with weight gain, can order IV bumex 4mg once. Attempted to contact [facility] to scheduled outpatient infusion tomorrow. Infusion center closed after 4. Will reattempt in am. Advised MS Alcantar to not take am dose of Bumex tomorrow in am until I call to let her know if able to schedule for outpatient diuretics. Orders for IV diuretics sent to [facility] in am. Ms alcantar voiced understanding * Telephone Encounter - Mami Aviles - 10/06/2025 3:26 PM EST Clinical Concern/Question Reason for Call: [facility] [place] called re: Metolazone 5 mg is already in pt's pill backs for every other day, previously prescribedby another spice miller in [place]. Caller received a new order for pt to take the med 1X today and 1X tomorrow and then as needed. Could you please clarify if this new order? Best contact number: [phone] Asmita. Please call the main number back if no answer on this extension. Optimal time of day to reach caller: ANYTIME Additional comments/information from caller: Caller also said the pt is now using new store, [employer] [address] [phone]. Note: Please do not reply to this message. Follow-up communication and further actions as a result of this message need to be communicated with the patient directly, if the patient is not active onMyChart. If the patient is active on MyChart, they will receive notification of the communication/outcome via [email or web address]. documented in this encounter Plan of Treatment Upcoming Encounters Date Type Department Care Team (Late st Contact Info) Description 01/13/2026 9:30 AM EST Office Visit [facility] [place] [address] [facility] [place] [address] Elvin Schuler MD [address] [place] [address] Scheduled Orders Name Type Priority Associated Diagnoses [...] documented as of this encounter Care Teams Dielectric Testing Machine Operator Relationship Specialty Start Date End Date Rad Galvan MD [address] [place] [address] PCP - General 04/08/25 Uli Salcedo PA [address] [place] [address] Referring Physician 02/03/25 documented as of this encounter
--- OUTSIDE RECORDS SUMMARY | 2025-11-21 10:49 | XMS_ITS | Encounter Summary ---
Author Organization [facility] Address [address] [place] [address] Care Team Providers Care Web Master Name Role Phone Uli Salcedo Unavailable [phone] Rad Galvan MD Primary Care Provider [phone] Encounter Details Date Type Department Care Team (Late st Contact Info) Description 10/03/2025 Orders Only [facility] [place] [facility] [address] [place] [address] Linda Garcia RN CH-ADULT ECMO None Chronic combined systolic and diastolic congestive heart [...] Description 01/13/2026 9:30 AM EST Office Visit [facility] [place] [address] [place] [address] Elvin Schuler MD [address] [place] [phone] Scheduled Orders Name Type Priority Associated Diagnoses Order Schedule Cardiac Device Check - Remote Implantable Cardiac Device Routine Chronic combined systolic and diastolic congestive heart failure 1 Occurrences starting 10/03/2025 until 04/06/2027 documented as of this encounter Visit Diagnoses Diagnosis Chronic combined systolic and diastolic congestive heart failure- Primary documented in this encounter Additional Health Concerns Assessment Noted Time PHQ-9 Depression Total Score: 025 1:50 PM EDT A fall risk assessment has been complete d for the patient 09/16/2025 3:49 PM EDT A Body Mass Index follow-up plan has been documented for the patient 09/16/2025 4:37 PM EDT documented as of this encounter Care Teams Web Master Relationship Specialty Start Date End Date Rad Galvan MD [address] [place] [address] PCP - General 04/08/25 Uli Salcedo PA [address] [place] [address] Referring Physician 02/03/25 documented as of this encounter
--- OUTSIDE RECORDS SUMMARY | 2025-11-21 10:49 | XMS_ITS | Encounter Summary ---
Author Organization [facility] Address [address] [place] [address] Care Team Providers Care Filling And Packing Supervisor Name Role Phone Uli Salcedo Unavailable [phone] Rad Galvan MD Primary Care Provider [phone] Encounter Details Date Type Department Care Team [...] Description 01/13/2026 9:30 AM EST Office Visit [facility] [place] [facility] [address] [facility] [place] [address] Elvin Schuler MD [address] [place] [address] documented as of this encounter Visit Diagnoses [...] as of this encounter Care Teams Filling And Packing Supervisor Relationship Specialty Start Date End Date Rad Galvan MD [address] [place] [address] PCP - General 04/08/25 Uli Salcedo PA [address] [place] [address] Referring Physician 02/03/25 documented as of this encounter
--- OUTSIDE RECORDS SUMMARY | 2025-11-21 10:49 | XMS_ITS | Encounter Summary ---
Author Organization [facility] Address [address] [place] [address] Care Team Providers Care Operations Developer Name Role Phone Uli Salcedo Unavailable [phone] Rad Galvan MD Primary Care Provider [phone] Encounter Details Date Type Department Care Team (Late st Contact Info) Description 09/15/2025 Telephone [facility] [place] [address] [facility] [place] [address] Elvin Schuler MD [address] [place] [address] Social History Tobacco Use Types [...] Type: Cardiac Clearance for 09/21/25 Colonoscopy at [facility] Due Date: 09/15/25 Send To: [place] [phone] Atn: [place] contact number: [phone] Optimal time of day to reach caller: ANYTIME Additional comments/information from caller: None Note: Please do not reply to this message. Follow-up communication and further actions as a result of this message need to be communicated with the patient directly, if the patient is not active onMyChart. If the patient is active on MyChart, they will receive notification of the communication/outcome via [employer]hart. documented in this encounter Plan of Treatment Upcoming Encounters Date Type Department Care Team (Late st Contact Info) Description 01/13/2026 9:30 AM EST Office Visit [facility] [place] [address] [place] [address] Elvin Schuler MD [address] [place] [address] documented as of this encounter Visit Diagnoses [...] as of this encounter Care Teams Operations Developer Relationship Specialty Start Date End Date Rad Galvan MD [address] [place] [address] PCP - General 04/08/25 Uli Salcedo PA [address] [place] [address] Referring Physician 02/03/25 documented as of this encounter
--- OUTSIDE RECORDS SUMMARY | 2025-11-21 10:49 | XMS_ITS | Encounter Summary ---
Author Organization [facility] Address [address] [place] [address] Care Team Providers Care Customer Development Representative Name Role Phone Uli Salcedo Unavailable [phone] Rad Galvan MD Primary Care Provider [phone] Encounter Details Date Type Department Care Team (Late st Contact Info) Description 10/05/2025 Telephone [facility] [place] [address] [facility] [place] [address] Neptali Johnson RN [facility] [address] [place] [address] Social History Tobacco Use Types Packs/Day Years [...] to further assess. Lab order faxed to [facility] at [phone] (outpatient registration). Stated she would go tomorrow to repeat. Message sent to Chika Orellana APRN to update and advise any additional changes documented in this encounter Plan of Treatment Upcoming Encounters Date Type Department Care Team (Late st Contact Info) Description 01/13/2026 9:30 AM EST Office Visit [facility] [place] [address] [place] [address] Elvin Schuler MD [address] [place] [address] Scheduled Orders Name Type Priority Associated Diagnoses [...] documented as of this encounter Care Teams Customer Development Representative Relationship Specialty Start Date End Date Rad Galvan MD [address] [place] [address] PCP - General 04/08/25 Uli Salcedo PA [address] [place] [address] Referring Physician 02/03/25 documented as of this encounter
--- OUTSIDE RECORDS SUMMARY | 2025-11-21 10:49 | XMS_ITS | Encounter Summary ---
Author Organization [facility] Address [address] [place] [address] Care Team Providers Care Math Coach Name Role Phone Uli Salcedo Unavailable [phone] Rad Galvan MD Primary Care Provider [phone] Reason for Visit * Reason Onset Date Comments HCN - Patient Message 10/05/2025 Encounter Details Date Type Department Care Team (Late st Contact Info) Description 10/05/2025 Telephone [facility] [place] [address] [facility] [place] [address] Elvin Schuler MD [address] [place] [address] HCN - Patient Message Social [...] give pt a call. Best contact number: [phone] (mobile) Optimal time of day to reach caller: ANYTIME Additional comments/information from caller: None Note: Please do not reply to this message. Follow-up communication and further actions as a result of this message need to be communicated with the patient directly, if the patient is not active onMyChart. If the patient is active on MyChart, they will receive notification of the communication/outcome via [employer]. documented in this encounter Plan of Treatment Upcoming Encounters Date Type Department Care Team (Late st Contact Info) Description 01/13/2026 9:30 AM EST Office Visit [facility] [place] [address] [facility] [place] [address] Elvin Schuler MD [address] [place] [address] documented as of this encounter Visit Diagnoses [...] documented as of this encounter Care Teams Math Coach Relationship Specialty Start Date End Date Rad Galvan MD [address] [place] [address] PCP - General 04/08/25 Uli Salcedo PA [address] [place] [address] Referring Physician 02/03/25 documented as of this encounter
--- OUTSIDE RECORDS SUMMARY | 2025-11-21 10:49 | XMS_ITS | Clinical Summary ---
Author Organization [facility] Address [address] [place] [address] Care Team Providers Care Focuser Name Role Phone Rad Galvan MD Primary Care Provider + Allergies Active Allergy Reactions Criticality Noted Date Comments Empagliflozin Itching Low 01/21/2025 Methylphenidate Itching Medium 02/18/2025 Metoclopramide Rash Low 04/15/2022 Medications [place]-3 Fatty Acids (fish oil) 1000 MG capsule [...] tablet 11 024 Active Comfort EZ Pen [place] 32G X 6 MM misc USE DIRECTED [...] tablet Take 0.5 tablets by mouth Daily. Active Continuous Glucose Sheet Metal Duct Installer Apprentice (FreeStyle Simón 3 Pendroy) deviceIndication s:Type 2 diabetes mellitus with hypoglycemia [...] 15 (Fifteen) Days. 2 each 025 Active Semaglutide,0.25 or 0.5MG/DOS, (OZEMPIC) 2 MG/3ML solution pen-injectorIndi cations:Type 2 diabetes mellitus with hyperglycemia, with long-term current use of insulin Inject 0.25 mg under the skin into the appropriate area as directed 1 (One) Time Per Week. 025 Active bumetanide (BUMEX) 1 MG tablet TAKE TWO TABLETS BY MOUTH EVERY DAY 60 tablet 2 025 Active rOPINIRole (REQUIP) 2 MG tabletIndication s:Restless leg syndrome TAKE ONE TABLET BY MOUTH EVERY NIGHT 30 tablet 025 Active pantoprazole (PROTONIX) 40 MG EC tabletIndication s:Gastroesophage al reflux disease without esophagitis TAKE ONE TABLET BY MOUTH TWICE DAILY 60 tablet 025 Active atorvastatin (LIPITOR) 10 MG tabletIndication s:Type 2 diabetes mellitus with hyperglycemia TAKE ONE TABLET BY MOUTH EVERY DAY 30 tablet 025 Active allopurinol (ZYLOPRIM) 100 MG tablet TAKE ONE TABLET BY MOUTH EVERY DAY 60 tablet 025 Active digoxin (LANOXIN) 125 MCG tabletIndication [...] 60 units EVERY EVENING 400 mL 1 Active isosorbide mononitrate (IMDUR) 30 MG 24 hr tablet Take 1 tablet by mouth Daily. 025 Active methocarbamol (ROBAXIN) 500 MG tablet TAKE ONE TABLET BY MOUTH TWICE DAILY NEEDED FOR MUSCLE SPASMS MAY CAUSE DROWSINESS Active Xarelto 15 MG tablet TAKE ONE TABLET BY MOUTH EVERY EVENING with meal 025 Active traMADol (ULTRAM) 50 MG tabletIndication s:Chronic midline low back pain without sciatica Take 1 tablet by mouth Every 6 (Six) Hours As Needed for Moderate Pain. 120 tablet 4 025 Active Insulin Syringe-Needle U-100 27G X 5/8 1 ML misc Inject twice daily as directed. Dx: E11.65 100 each 2 025 Active traMADol (ULTRAM) 50 MG tabletIndication s:Chronic midline low back pain without sciatica Take 1 tablet by mouth Every 6 (Six) Hours As Needed for Moderate Pain. 120 tablet 3 025 2024 Discontinued Active Problems Problem Noted [...] & Plan (08/01/2025 11:01 AM EDT): {Diabetes (Optional):8376216562} Assessment & Plan (01/20/2025 11:47 AM EST): [...] evening. She will be referred back to [facility] podiatry for topical interventions that [...] & Plan (08/01/2025 11:01 AM EDT): {CHF (Optional):05875} Seizure disorder 04/15/2022 Assessment & Plan (08/01/2025 11:01 AM EDT): Encounters Date Type Department Care Team Description 11/02/2025 Results Follow-Up [facility] [address] [address] Rad Galvan MD 10/26/2025 Refill [facility] [address] [address] Rad Galvan MD 10/24/2025 Refill [facility] [address] [address] Rad Galvan MD Chronic midline low back pain without sciatica 10/18/2025 1:45 PM EST Office Visit [facility] [address] [address] Rad Galvan MD Contusion of left foot, subsequent encounter (Primary Dx); Type 2 diabetes mellitus with hypoglycemia without coma, with long-term current use of insulin 10/18/2025 Travel 09/26/2025 Refill [facility] [address] [address] Rad Galvan MD Type 2 diabetes mellitus with hyperglycemia, with long-term current use of insulin 09/22/2025 External PBMM Data [facility] [address] [address] Pharmacy, Payor Data 09/19/2025 12:00 PM EDT Office Visit [facility] [address] [place] [address] Rad Galvan MD Orthostatic syncope (Primary Dx); Chronic HFrEF (heart failure with reduced ejection fraction); Need for immunization against influenza 09/19/2025 Travel 08/31/2025 Telephone [facility] [address] [place] [address] Rad Galvan MD prescription clarification (Phenobarb) 08/25/2025 Refill [facility] [address] [place] [address] Rad Galvna MD Restless leg syndrome from Last 3 Months Immunizations Immunization Administration [...] Name Status Comments [place] Jim[place] Daughter Yennifer Edwards Father Jakob Fish [...] 18 10/18/2025 1:37 PM EST Oxygen Saturation 98% 09/19/2025 11:53 AM EDT Inhaled Oxygen Concentration - - Weight 88 kg (194 lb) 10/18/2025 1:37 PM EST Height 154.9 cm (5' 1 ) 09/19/2025 11:53 AM EDT Body Mass Index 36.66 09/19/2025 11:53 AM EDT Plan of Treatment Health Maintenance Due Date Last Done Comments TDAP/TD VACCINES (1 - Tdap) 01/24/1997 01/23/1997 COLON CANCER SCREENING 5 YEA R SIGMOIDOSCOPY 2002 CT COLONOGRAPHY 2002 FECAL OCCULT BLOOD TEST 2002 FIT Testing (1 year) 2002 ZOSTER VACCINE (1 of 2) 2007 DIABETIC [...] Date/Time Associated Diagnosis Comments SCANNED - LABS 11/01/2025 SCANNED EKG 10/08/2025 SCANNED - LABS 10/08/2025 SCANNED - IMAGING 10/08/2025 SCANNED - IMAGING 10/08/2025 SCANNED - LABS 09/28/2025 SCANNED EKG 09/08/2025 SCANNED - IMAGING 09/08/2025 SCANNED - IMAGING 09/08/2025 SCANNED - IMAGING 09/08/2025 SCANNED - LABS 08/30/2025 SCANNED - LABS 08/30/2025 SCANNED - LABS 08/30/2025 SCANNED - IMAGING 08/26/2025 POCT GLYCOSYLATED HEMOGLOBIN (HGB A1C) Routine 08/01/2025 10:40 AM EDT Type 2 diabetes mellitus with hyperglycemia, with long-term current use of insulin SCANNED - FOOT EXAM 07/26/2025 POC ALBUMIN/CREATININE RATIO Routine 01/07/2025 3:18 PM EST Type 2 diabetes mellitus with hyperglycemia, with long-term current use of insulin SCANNED - DEXA 02/18/2023 SCANNED - MAMMO 02/18/2023 COLOGUARD Routine 02/15/2023 4:07 PM EDT Colon cancer screening from Last 3 Months or Most Recently Relevant to Health Maintenance Results * LABS SCANNED (11/01/2025) Only the most recent of6 resultswithin the time period is included. Rad Galvan MD LAB BLOOD ORDERABLES Fin al Result * ECG Scan (10/08/2025) Only the most recent of2 resultswithin the time period is included. Rad Galvan MD ECG ORDERABLES Final Re sult * IMAGING SCANNED (10/08/2025) Only the most recent of6 resultswithin the time period is included. Anatomical Region Laterality Modality Radiographic Gracie ging Rad Galvan MD IMG DIAGNOSTIC IMAGING O RDERABLES Final Result * (ABNORMAL) POC Glycosylated Hemoglobin (Hb A1C) (08/01/2025 10:40 AM EDT) Hemoglobin A1C 7.2(A) 4.5 - 5.7 % [facility] Lot Number [id number] [facility] Expiration Date 03/09/2027 [facility] Blood 08/01/2025 10:4 0 AM EDT Rad Galvan MD POINT OF CARE TEST ORDER RICH Final Result [facility]
[address] [place] [address], * FOOT EXAM SCANNED (07/26/2025) Rad Galvan MD CHART REVIEW TABS Fin al Result * (ABNORMAL) Albumin/Creatinine Ratio Urine (01/07/2025 [...] Positive( A) Negative 02/25/2023 5:18 PM EDT [facility] (CLIA #:[id number]) Comment: POSITIVE TEST RESULT. A positive Cologuard [...] (Kathleen Roberts al, N Engl J Med 2014;370(14):7553-3056.) Cologuard may produce a false negative or false positive result (no colorectal cancer or precancerous polyp present at colonoscopy follow up). A negative Cologuard test result does not guarantee the absence of CRC or advanced adenoma (pre-cancer). The current Cologuard screening interval is every 3 years. ([place] Cancer Society and U.S. Multi-Society Task Force). Cologuard performance data in a 10,000 patient pivotal study using colonoscopy as the reference method can be accessed at the following location: [email or web address]. Additional description of the Cologuard test process, warnings and precautions can be found at [email or web address]. Stool specimen (specimen) Specimen from rectum / Unknown 02/15/2023 4:07 PM EDT 02/18/2023 3:05 PM EDT us Rad Galvan MD BODY FLUIDS AND STOOLS O RDERABLES Final Result [facility] (CLIA #:[id number]) [address] [place] [address], [place] [phone] from Last 3 Months or Most Recently Relevant to Health Maintenance Insurance [facility] Medicare Advantage [employer] PPO Care Teams Focuser Relationship Specialty Start Date End Date Rad Galvan MD [address] [facility] [place] [address] PCP - General Family Medicine 04/15/22
--- OUTSIDE RECORDS SUMMARY | 2025-11-21 10:49 | XMS_ITS | Encounter Summary ---
Author Organization [facility] Address [address] [place] [address] Care Team Providers Care Bulk Coolers Installer Name Role Phone Andrew Lee MD Primary Care Provider [phone] Uli Salcedo Unavailable [phone] Rad Galvan MD Primary Care Provider [phone] Encounter Details Date Type Department Care Team (Late st Contact Info) Description 01/11/2025 Orders Only External Location [address] [place] [address] Uli Salcedo PA [address] [place], [place] [id number] Social History Tobacco Use Types Packs/Day Years [...] Description 01/13/2026 9:30 AM EST Office Visit [facility] [place] [address] [facility] [place] [address] Elvin Schuler MD [address] [place] [address] documented as of this encounter [...] on filedocumented in this encounter Care Teams Bulk Coolers Installer Relationship Specialty Start Date End Date Andrew Lee MD [address] [place] [address] [address] [place] [address] PCP - General 04/06/21 04/07/25 Rad Galvan MD [address] [place] [address] PCP - General 04/08/25 Uli Salcedo PA [address] [place] [address] Referring Physician 02/03/25 documented as of this encounter
--- OUTSIDE RECORDS SUMMARY | 2025-11-21 10:49 | XMS_ITS | Encounter Summary ---
Author Organization [facility] Address [address] [place] [address] Care Team Providers Care Clinical Lab Scientist Name Role Phone Uli Salcedo Unavailable [phone] Rad Galvan MD Primary Care Provider Encounter Details Date Type Department Care Team (Late st Contact Info) Description 10/06/2025 Telephone [facility] [place] [address], [address] [place] [address] Chika Orellana, PRACTICE OFFICE ASSOCIATE [address] [place] [address] Social History Tobacco Use Types [...] Description 01/13/2026 9:30 AM EST Office Visit [facility] [place] [address] [place] [address] Elvin Schuler MD [address] [place] [address] documented as of this encounter Visit Diagnoses [...] as of this encounter Care Teams Clinical Lab Scientist Relationship Specialty Start Date End Date Rad Galvan MD [address] [place] [address] PCP - General 04/08/25 Uli Salcedo PA [address] [place] [address] Referring Physician 02/03/25 documented as of this encounter
--- NOTE | 2025-11-21 11:00 | CT_ITS ---
FINAL REPORT TECHNIQUE: Thin section axial images were obtained from the lung apices through the upper abdomen without contrast. This study was performed with techniques to keep radiation doses as low as reasonably achievable (ALARA). Individualized dose reduction techniques using automated exposure control or adjustment of mA and/or kV according to the patient's size were employed. CLINICAL HISTORY: Nodule COMPARISON: 08/13/2025, 08/08/2025 FINDINGS: There is no mediastinal, hilar, or axillary lymphadenopathy. No pleural or pericardial effusion. There is stable cardiomegaly. Previously seen ground glass and airspace opacity in the superior segment of the right lower lobe has resolved. There is a 4 mm subpleural right lower lobe nodule seen on image 36 of series 2 which is unchanged. Linear opacities in the right upper lobe and lingula are likely atelectasis. There is no new infiltrate. Limited imaging of the upper abdomen demonstrates a slightly nodular contour to the liver. Spleen is likely enlarged. There is no acute upper abdominal abnormality. There is no acute osseous abnormality. IMPRESSION: 1. Resolution of right lower lobe pneumonia. 2. Stable subpleural right lower lobe nodule. 3. Possible cirrhosis and splenomegaly. Reviewed, Interpreted and Dictated by Neetu Waite MD Transcribed by Roberta Acuna Authenticated and [facility]
== END 2025-11-21 23:59 | disposition home or self-care (01) ==
LOC: RAD 10:39
PROVIDERS: PCP Family Medicine; Visit Provider Internal Medicine Pulmonary Disease
DX: R91.1 Solitary pulmonary nodule (principal); R93.5 Abnormal findings on diagnostic imaging of other abdominal regions, including retroperitoneum
CPT/HCPCS: 71250